=== PATIENT | male | born 1955 | race Caucasian/White ===

== ENCOUNTER 2016-11-10 12:16 | Emergency (ER) | payer MEDICAID, SELFPAY ==
[2016-11-10 12:17] VITALS: BP 168/95; PULSE 75; RESP 20; TEMP 36.4; O2SAT 98; BMI 27.3
--- NOTE | 2016-11-10 12:41 | ED.DCSUM_ITS ---
- ER Visit Summary Date of Service: 11/10/16 Chief Complaint: [] Left groin pain occurred suddenly when he stood up today History of Present Illness: The patient is a 61 M [] history 2007 had some unspecified vascular procedure involving the left groin arteries , he reports he simply stood today and had pain over the incision involving this left vascular procedure. Apparently postop there was some issue with the wound and he had an open wound that closed by secondary intention and that has resulted in some contracture of the scar Denies any trouble with numbness weakness paresthesias to lower extremity, the symptoms are worse when he flexes his knees or ABD ducts the hip, better when he is still Denies abdominal pain bowel bladder complaints and no direct trauma Physical Examination: [] He points directly to the incision left groin. This incision does show contracture of the skin there is a strong pulse there I do not feel any obvious fluid collection and there is no warmth no signs of bleeding he has what appears to be a dorsalis pedis pulse the lower extremity toes are good well-perfused with good capillary refill when you flex the knee complains of pain over this area he has some mild pain with adduction of the left hip, less pain with ADD duction basically has full range of motion of the left lower extremity His lungs are clear heart tones are normal abdomen soft nontender the backs unremarkable HEENT exam is negative Test Results: [] Emergency Department Course and Treatment: [] Patient CBC chemistry UA are unremarkable, we did a bedside vascular duplex scan of that area and technology reports that the artery at that level slightly distal and slightly proximal into the iliacs was normal with normal flow, slower velocity, but no signs of aneurysm no signs of extravasation of fluid around the artery and area of discomfort Additional precaution a CTA of the abdomen pelvis was done with cuts into the left lower leg to evaluate this area and there was again no signs of extravasation no signs of any obvious lesion, and no signs of occlusion he was medicated and feels somewhat better I have explained test results to him of the at this time exact etiology of his symptoms are unclear, As did occur when he was going from a seated to standing position could be musculoskeletal in origin, however he understands exact etiology is unclear and he will be is comfortable with discharge home he will follow-up with his physicians tomorrow or go directly to the [facility] for evaluation by that group physicians today, and return for change in symptoms. He is discharged with #6 [place] Addendum to the above note As we were discharging the patient he informed that he in fact has had this type of groin pain in the past related to some type of a back disorder, or he receives injections in his back. This is a complete new information as initially he inform he has never had pain in this area before and he then further inform me that he was seeing some pain management doctor he was on Percocet for this type of pain. I explained to him that had I understood that this was a recurrent chronic problem that he had that I likely would not have proceeded with the diagnostic studies that I felt were necessary based on what he initially reported to be an acute problem involving his vascular anatomy and prior history as result he will not be discharged with [place] and he will be instructed to follow-up as above and to include his pain management physician Treatment Plan: [] Disposition: [] Home stable Impression: [] Left groin pain occurred on standing related to prior scar that was related to vascular surgery at that level ED Disposition - Plan for ED Patient: Chief Complaint: Male Pain/Injury Prescriptions: Hydrocodone Bitart/Apap 5-325 [[place] 5/325] 1 - 2 tablet PO Q4H PRN PRN #12 tablet PRN Reason: Pain Referrals: Winnie Gonzales MD [NON-STAFF] -
--- NOTE | 2016-11-10 12:41 | ADUL_ITS ---
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 Procedure Exam performed portable in ED. Interpretation Summary Mild disease left common femoral artery with normal flow and no evidence for fistula or pseudoaneurysm. Ordering Physician: Jessica Weiner Referring Physician: Winnie Gonzales Performed By: Viviana Rinaldi RVT
[2016-11-10 12:56] LABS: Bacteria 0 SEEN /hpf (None Seen); Mucous, Urine 0 SEEN /hpf (<or=2+); Red Blood Cells-Urine 0 SEEN /hpf (0-5); Squamous Epithelial Cells - UA 0 SEEN /hpf (0-5); White Blood Cells 0 SEEN /hpf (0-5)
[2016-11-10] MEDS: 0.9% Normal Saline 1,000 ML 125 ML IV (12:58)
[2016-11-10 13:04] LABS: Color, Urine Yellow (Yellow); Glucose, Dipstick Normal (Normal); Ketone-Dipstick Negative (Negative); Leukocyte Esterase-Dipstick Negative /ul (Negative); Nitrite-Dipstick Negative (Negative); Occult Blood-Urine Negative /ul (Negative); Protein-Dipstick Negative (Negative); Urine Bilirubin Dipstick Negative (Negative); Urine Clarity Clear (Clear); Urine Urobilinogen Normal (Normal); Urine pH 6.5 (5.0 - 8.0)
[2016-11-10 13:08] LABS: Absolute Lymphocyte Count 1.43 X10^3/ul (0.83-4.51); Absolute Neutrophil Count 2.8 X10^3/uL (2.0-7.7); Basophil# 0.03 X10^3/uL; Basophil% 0.6 % (0-1); Eosinophil# 0.29 X10^3/uL; Eosinophils% 5.6 % (0-5); Hematocrit 38.1 % (40-54); Hemoglobin 12.6 g/dl (13.0-16.5); Lymphocyte # 1.43 X10^3/ul (4.0); Lymphocyte % 27.6 % (19-41); Mean Corp Hgb Conc 33.1 g/gl (32-36); Mean Corpuscular Hgb 30.1 pg (27.0-32.0); Mean Corpuscular Volume 91.1 fL (80-94); Mean Platelet Vol. 7.9 fl (6.2-12.0); Monocyte# 0.66 X10^3/uL; Monocyte% 12.7 % (0-10); Neutrophil # 2.75 X10^3/uL (2.7-7.7); Neutrophil % 52.9 % (47-70); Platelet Count 271 K/mm3 (150-450); RBC Distribution Width CV 12.9 % (11.6-14.6); Red Blood Count 4.18 M/mm3 (4.6-6.2); White Blood Count 5.2 K/mm3 (4.4-11.0)
[2016-11-10 13:10] LABS: POSITIVE COUNT NO; POSITIVE DIFFERENTIAL NO; POSITIVE MORPHOLOGY NO
--- NOTE | 2016-11-10 13:10 | CT_ITS ---
STUDY: CTA OF THE ABDOMINAL AORTA AND PELVIC ARTERIES. REASON FOR EXAM: Male, 61 years old. Left groin pain. History of prior left groin vascular surgery. History of colorectal carcinoma and radiation therapy. RADIATION DOSAGE (If Supplied By Facility): CTDIvol = ( 23.68 ) mGy, DLP = ( 1254.38 ) mGycm TECHNIQUE: Axial CT angiography multi-detector data acquisition was obtained from the dome of the liver to the symphysis pubis following intravenous administration of 100 ml of Isovue 370 contrast. Axial images and MIP images were reconstructed from the axial data set. Post-processing of the angiographic images was performed, with multiplanar reformation and 3D reconstruction. Individualized dose optimization techniques were used for this CT. TECHNICAL QUALITY: Good COMPARISON: Comparison is made with prior CT scan of the abdomen dated October 19, 2016. Descriptors of Narrowing: None (0%) Mild (< 50%) Moderate (50-70%) Severe (70-90%) Subtotal/Total Occlusion (90-100%) Non-Evaluable (technically non-diagnostic FINDINGS: The lung bases are clear. Decreased attenuation of the liver consistent with that of fatty infiltration of the liver. Stable 2.3 cm left renal cyst. Abdominal aorta: There is diffuse atherosclerotic calcification of the abdominal aorta and the major visceral branches. Celiac and superior mesenteric arteries: No demonstrated narrowing. Inferior mesenteric artery: No demonstrated narrowing. Right renal artery(arteries): No demonstrated narrowing. Left renal artery(arteries): No demonstrated narrowing. Right common iliac artery: Atherosclerotic calcification. Right external iliac artery: Atherosclerotic calcification. Right internal iliac artery: No demonstrated narrowing. Left common iliac artery: Atherosclerotic calcification. Left external iliac artery: Dilatation of the left external iliac artery with a transverse dimension of 1.6 cm. There is no evidence of extravasation. This most likely corresponds to the prior surgical changes. Left internal iliac artery: No demonstrated narrowing. There is evidence of a left total hip replacement. CT/CT ANGIO ABD&PEL W/O&W/DYE IMPRESSION: Fatty infiltration of the liver. Mild dilatation of the left external iliac artery most likely secondary to prior endarterectomy. There is no evidence of obstruction. There is no evidence of extravasation. Electronically Signed: Aayush Ibarra MD at 13:59 EDT Tel [phone], Service support ,
[2016-11-10 13:14] LABS: Anion Gap 7 (5-15); BUN 13 mg/dL (7-18); BUN/Creat Ratio 18.7 RATIO (10-20); Calcium,Total 8.7 mg/dL (8.5-10.1); Chloride 92 mmol/L (98-107); EST Glomerular Filtration Rate 122 mL/min (>60); Est Glom Filt Rate - Afr Amer 148 mL/min (>60); Glucose 91 mg/dL (70-110); Potassium 4.8 mmol/L (3.5-5.1); Sodium Level 129 mmol/L (136-145)
[2016-11-10] MEDS: Ondansetron 4 MG/2 ML Vial IV (14:03)
[2016-11-10 14:08] VITALS: BP 152/66; PULSE 72; RESP 22; O2SAT 96
--- NOTE | 2016-11-10 14:58 | ED.DEP ---
ED Disposition - Plan for ED Patient: Chief Complaint: Male Pain/Injury Prescriptions: Hydrocodone Bitart/Apap 5-325 [[place] 5/325] 1 - 2 tablet PO Q4H PRN PRN #12 tablet PRN Reason: Pain Referrals: Winnie Gonzales MD [NON-STAFF] -
--- NOTE | 2016-11-10 14:59 | ED.DEP ---
ED Disposition - Plan for ED Patient: Chief Complaint: Male Pain/Injury Prescriptions: Hydrocodone Bitart/Apap 5-325 [[place] 5/325] 1 - 2 tablet PO Q4H PRN PRN #12 tablet PRN Reason: Pain Referrals: Winnie Gonzales MD [NON-STAFF] -
[2016-11-10] MEDS: 0.9% Normal Saline 1,000 ML 500 ML IV (15:06)
--- NOTE | 2016-11-10 15:06 | DCINST.ED_ITS ---
ED Disposition - Plan for ED Patient: Chief Complaint: Male Pain/Injury Prescriptions: Hydrocodone Bitart/Apap 5-325 [[place] 5/325] 1 - 2 tablet PO Q4H PRN PRN #12 tablet PRN Reason: Pain Referrals: Winnie Gonzales MD [NON-STAFF] -
[2016-11-10 15:52] VITALS: BP 132/46; PULSE 83; RESP 22; O2SAT 94
--- NOTE | 2016-11-10 15:53 | ED.RN ---
THIS NURSE REVIEWED D/C INSTRUCTIONS WITH PT. PT VERBALIZED UNDERSTANDING OF INSTRUCTIONS. IV D/C. IV CATHETER INTACT. PT TOLERATED WELL. THIS NURSE ASSISTED PT TO GET DRESSED. PT DENIES FURTHER NEEDS OR QUESTIONS AT THIS TIME. PT AMBULATES FROM ROOM ON OWN HOWEVER, THIS NURSE WALKED WITH PT TO VEHICLE. PT REQUESTED W/C WHILE STANDING ON RAMP. THIS NURSE RETRIEVED A W/C FOR THE PT. PT THEN ASSISTED THE REST OF THE WAY TO THE VEHICLE AND ASSISTED PT INTO THE VEHICLE.
== END 2016-11-10 15:59 | disposition home or self-care (01) ==
PROVIDERS: Emergency Provider Emergency Medicine; Family Provider Internal Medicine; PCP Internal Medicine
DX: R10.30 Lower abdominal pain, unspecified (principal)
CPT/HCPCS: 74174; 80048; 81001; 85025; 87086; 87088; 93926; 96361; 96374; 96375; 99284; J7030; J7040; Q9967; A4216; J2405

== ENCOUNTER 2017-04-11 09:45 | Outpatient (RCR) | payer MEDICAID, SELFPAY ==
[2017-03-13 01:27] VITALS: BP 126/69; PULSE 72; RESP 18; TEMP 37.7
[2017-03-14 10:59] VITALS: BP 122/74; PULSE 80; RESP 16; TEMP 37
--- NOTE | 2017-03-14 19:29 | PCM.WC.PN ---
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 History of Wound: Surgery 12/30/16 - Surgical preparation right gluteal/ischial area with excision radiation pressure sore abscess wound and partial ostectomy for osteomyelitis (52.5 cm2). Wound care - Silver. There was trouble maintaining a VAC seal initially and had trouble getting it approved. Operative culture - Soft tissue, Staphylococcus aureus, Bacteroides fragilis, Anaerobic cocci. Bone, Bacteroides fragilis, Anaerobic cocci, and Fusarium species. Had another culture on 01/07/17 which showed Pseudomonas aeroginosa and presumptive Genna. He was placed on longterm Cefepime IV and Flagyl po until 02/20/17. He is finished with the Cefepime and Flagyl. There was a [facility]. It showed MRSA and C. albicans. He was started on Doxycylcine and Diflucan. Pathology - negative for osteomyelitis but rare neutrophils were present. Prealbumin from 12/30/16 was 9.8. He takes nutritional supplementation with protein to help the healing process. CT Pelvis from 12/29/16 showed evidence of abscess. This ulcer is based on anal cancer from 2002 that necessitated radiation therapy and chemotherapy. Today he denies fever. He does have pain in his right gluteal/ischial area. His appetite is ok. [facility] is still at the [facility]. 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 Progress of Wound: Minimal improvement. - Physical Exam Vital Signs Temp Pulse Resp BP 98.6 F 80 16 122/74 H 03/14/17 10:59 03/14/17 10:59 03/14/17 10:59 03/14/17 10:59 Wound Measurements and Assessment WC - Nurse 1 - General Ulcer Measurement Start: 03/14/17 10:58 Freq: Status: Active Protocol: Activity Type Activity Date Activity User E-Sign Co-Sign Detail Recorded Client Recorded Date Recorded By Document 03/14/17 10:59 MW [id number] 03/14/17 11:04 MW 03/14/17 10:59 Wound Center Nurse 1 [Ulcer Assessment Protocol: SKYLAR.WD.LOC] #1 R Ischial -Combined with other wound No -Current Size (cm) - Length 5.2 -Current Size (cm) - Width 3.8 -Current Size (cm) - Depth 4.2 -Total Square Cm 19.76 -Photo Taken Yes -Tunneling No -Undermining/Tunneling No -Circular Undermining No -Classification - Thickness Full Thickness without Exposed Support Structure -Exudate Amt Large (67-100%) -Exudate Type Serosanguineous -Wound Margin Fibrotic Scar, Thickened Scar -Granulation Amt Small (1-33%) -Granulation Quality [place] -Necrosis Amt Large (67-100%) -Necrotic Tissue Type Adherent Slough -Structure Exposed N/A -Texture (Nathalie-wound Skin Appearance) Assessed -Moisture (Nathalie-wound Skin Appearance Assessed ) -Color (Nathalie-wound Skin Appearance) Assessed Erythema -Temperature ([place]-wound Skin No Abnormality Appearance) (Pt Warm) -Tenderness on Palpation (Nathalie-wound No Skin Appearance) -Ulcer Cleansing Rinsed/ Irrigated with Saline -Foul Odor after Cleansing No -Anesthetic Used 4% Lidocaine Solution WC - Nurse 2 - General Ulcer CM Notes Start: 03/14/17 10:58 Freq: Status: Active Protocol: Activity Type Activity Date Activity User E-Sign Co-Sign Detail Recorded Client Recorded Date Recorded By Document 03/14/17 11:33 [id number] 03/14/17 11:34 03/14/17 11:33 Wound Center Nurse 2 [Procedure/Treatment] -Time 11:34 -Correct Patient Yes -Correct Side, Site, Position Yes -Correct Procedure Yes -Procedure Performed Yes -Type of Procedure Debridement -Clinical Debridement Muscle -Post Debridement Size (cm) - Length 5.3 -Post Debridement Size (cm) - Width 3.8 -Post Debridement Size (cm) - Depth 4.3 -Total Square Cm 20.14 -Wound/Ulcer Outcome Not Healed -Ulcer Cleansing Rinsed/ Irrigated with Saline -Foul Odor after Cleansing No -Bioengineered Tissue No -Cetacaine [place] No -Bleeding Controlled with Pressure -Treatment Response Procedure Tolerated Well [See Physician Procedure note for Specifics] Pain Scale: 0-10 Numeric [Pain] -Is Patient Pain Free? Yes Debridement Note Post-Debridement Measurements/Treatment WC - Nurse 2 - General Ulcer CM Notes Start: 03/14/17 10:58 Freq: Status: Active Protocol: Activity Type Activity Date Activity User E-Sign Co-Sign Detail Recorded Client Recorded Date Recorded By Document 03/14/17 11:33 [id number] 03/14/17 11:34 03/14/17 11:33 Wound Center Nurse 2 #1 R Ischial -Time 11:34 -Correct Patient Yes -Correct Side, Site, Position Yes -Correct Procedure Yes -Procedure Performed Yes -Type of Procedure Debridement -Clinical Debridement Muscle -Post Debridement Size (cm) - Length 5.3 -Post Debridement Size (cm) - Width 3.8 -Post Debridement Size (cm) - Depth 4.3 -Total Square Cm 20.14 -Wound/Ulcer Outcome Not Healed -Ulcer Cleansing Rinsed/ Irrigated with Saline -Foul Odor after Cleansing No -Bioengineered Tissue No -Cetacaine [place] No -Bleeding Controlled with Pressure -Treatment Response Procedure Tolerated Well Pain Scale: 0-10 Numeric Is Patient Pain Free? Yes Wound debrided: #1 Right ischial area. Laterality: Right Wound Grade/Stage: IV. Type of Debridement: Excisional debridement Anesthesia Used: 4% Lidocaine Solution Depth: Down to and including healthy tissue, in the subcutaneous layer, to muscle - bone is exposed but not debrided. Percentage of wound debrided: 100 Instrument Used: 7mm curette Tissue Removed: subcutaneous tissue and muscle. Severity: Fat Layer Exposed - muscle is exposed. bone is exposed but not debrided. Amount of bleeding with debridement: Mild Bleeding Controlled with: Pressure Patient tolerated procedure well Assessment/Plan Assessment: 1. 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 2. Late effect radiation right gluteal area. 3. History of anal CA treated with chemotherapy and radiation therapy. 4. s/p surgical preparation right gluteal/ischial area with excision radiation pressure sore abscess wound and partial ostectomy for osteomyelitis (52.5 cm2). 5. MRSA. Plan: Continue Silver dressing changes. There has been increased drainage so will increase the Silver dressings to twice a day. [facility] and is anxious to go home. While [facility], the VAC was tried again. However had difficulty getting approval for the VAC. He finished the operative Cefepime IV and Flagyl po without difficulty. A recent culture at the [facility] showed MRSA and C. albicans. He is currently on Doxycycline and Diflucan. Continue Chuy nutritional supplementation to help the healing process. 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 Have to wait until he is at home before starting HBO treatments. Followup 3 weeks. He had a CXR in December,. It showed interstitial changes in the right upper lobe. Otherwise no signs of acute disease. Stable since the last examination in October,.
--- NOTE | 2017-03-15 23:10 | PN.PCM_ITS ---
Type of Wound Date of Service: 03/14/17 Chief Complaint: Nonhealing radiation pressure sore abscess ulcer right gluteal/ ischial area, Stage IV. History of Wound: Surgery 12/30/16 - Surgical preparation right gluteal/ischial area with excision radiation pressure sore abscess wound and partial ostectomy for osteomyelitis (52.5 cm2). Wound care - Silver. There was trouble maintaining a VAC seal initially and had trouble getting it approved. Operative culture - Soft tissue, Staphylococcus aureus, Bacteroides fragilis, Anaerobic cocci. Bone, Bacteroides fragilis, Anaerobic cocci, and Fusarium species. Had another culture on 01/07/17 which showed Pseudomonas aeroginosa and presumptive Genna. 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 He is finished with the Cefepime and Flagyl. There was a recent culture from the [facility]. It showed MRSA and C. albicans. He was started on Doxycylcine and Diflucan. Pathology - negative for osteomyelitis but rare neutrophils were present. Prealbumin from 12/30/16 was 9.8. He takes nutritional supplementation with protein to help the healing process. CT Pelvis from 12/29/16 showed evidence of abscess. This ulcer is based on anal cancer from 2002 that necessitated radiation therapy and chemotherapy. Today he denies fever. He does have pain in his right gluteal/ischial area. His appetite is ok. He is still at the [facility]. 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 Progress of Wound: Minimal improvement. - Physical Exam Vital Signs Temp Pulse Resp BP 98.6 F 80 16 122/74 H 03/14/17 10:59 03/14/17 10:59 03/14/17 10:59 03/14/17 10:59 Wound Measurements and Assessment WC - Nurse 1 - General Ulcer Measurement Start: 03/14/17 10:58 Freq: Status: Active Protocol: Activity Type Activity Date Activity User E-Sign Co-Sign Detail Recorded Client Recorded Date Recorded By Document 03/14/17 10:59 MW [id number] 03/14/17 11:04 MW 03/14/17 10:59 Wound Center Nurse 1 [Ulcer Assessment Protocol: SKYLAR.WD.LOC] #1 R Ischial -Combined with other wound No -Current Size (cm) - Length 5.2 -Current Size (cm) - Width 3.8 -Current Size (cm) - Depth 4.2 -Total Square Cm 19.76 -Photo Taken Yes -Tunneling No -Undermining/Tunneling No -Circular Undermining No -Classification - Thickness Full Thickness without Exposed Support Structure -Exudate Amt Large (67-100%) -Exudate Type Serosanguineous -Wound Margin Fibrotic Scar, Thickened Scar -Granulation Amt Small (1-33%) -Granulation Quality [place] -Necrosis Amt Large (67-100%) -Necrotic Tissue Type Adherent Slough -Structure Exposed N/A -Texture (Nathalie-wound Skin Appearance) Assessed -Moisture (Nathalie-wound Skin Appearance Assessed ) -Color (Nathalie-wound Skin Appearance) Assessed Erythema -Temperature (Nathalie-wound Skin No Abnormality Appearance) (Pt Warm) -Tenderness on Palpation (Nathalie-wound No Skin Appearance) -Ulcer Cleansing Rinsed/ Irrigated with Saline -Foul Odor after Cleansing No -Anesthetic Used 4% Lidocaine Solution WC - Nurse 2 - General Ulcer CM Notes Start: 03/14/17 10:58 Freq: Status: Active Protocol: Activity Type Activity Date Activity User E-Sign Co-Sign Detail Recorded Client Recorded Date Recorded By Document 03/14/17 11:33 [id number] 03/14/17 11:34 03/14/17 11:33 Wound Center Nurse 2 [Procedure/Treatment] -Time 11:34 -Correct Patient Yes -Correct Side, Site, Position Yes -Correct Procedure Yes -Procedure Performed Yes -Type of Procedure Debridement -Clinical Debridement Muscle -Post Debridement Size (cm) - Length 5.3 -Post Debridement Size (cm) - Width 3.8 -Post Debridement Size (cm) - Depth 4.3 -Total Square Cm 20.14 -Wound/Ulcer Outcome Not Healed -Ulcer Cleansing Rinsed/ Irrigated with Saline -Foul Odor after Cleansing No -Bioengineered Tissue No -Cetacaine [place] No -Bleeding Controlled with Pressure -Treatment Response Procedure Tolerated Well [See Physician Procedure note for Specifics] Pain Scale: 0-10 Numeric [Pain] -Is Patient Pain Free? Yes Debridement Note Post-Debridement Measurements/Treatment WC - Nurse 2 - General Ulcer CM Notes Start: 03/14/17 10:58 Freq: Status: Active Protocol: Activity Type Activity Date Activity User E-Sign Co-Sign Detail Recorded Client Recorded Date Recorded By Document 03/14/17 11:33 [id number] 03/14/17 11:34 03/14/17 11:33 Wound Center Nurse 2 #1 R Ischial -Time 11:34 -Correct Patient Yes -Correct Side, Site, Position Yes -Correct Procedure Yes -Procedure Performed Yes -Type of Procedure Debridement -Clinical Debridement Muscle -Post Debridement Size (cm) - Length 5.3 -Post Debridement Size (cm) - Width 3.8 -Post Debridement Size (cm) - Depth 4.3 -Total Square Cm 20.14 -Wound/Ulcer Outcome Not Healed -Ulcer Cleansing Rinsed/ Irrigated with Saline -Foul Odor after Cleansing No -Bioengineered Tissue No -Cetacaine [place] No -Bleeding Controlled with Pressure -Treatment Response Procedure Tolerated Well Pain Scale: 0-10 Numeric Is Patient Pain Free? Yes Wound debrided: #1 Right ischial area. Laterality: Right Wound Grade/Stage: IV. Type of Debridement: Excisional debridement Anesthesia Used: 4% Lidocaine Solution Depth: Down to and including healthy tissue, in the subcutaneous layer, to muscle - bone is exposed but not debrided. Percentage of wound debrided: 100 Instrument Used: 7mm curette Tissue Removed: subcutaneous tissue and muscle. Severity: Fat Layer Exposed - muscle is exposed. bone is exposed but not debrided. Amount of bleeding with debridement: Mild Bleeding Controlled with: Pressure Patient tolerated procedure well Assessment/Plan Assessment: 1. 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 2. Late effect radiation right gluteal area. 3. History of anal CA treated with chemotherapy and radiation therapy. 4. s/p surgical preparation right gluteal/ischial area with excision radiation pressure sore abscess wound and partial ostectomy for osteomyelitis (52.5 cm2). 5. MRSA. Plan: Continue Silver dressing changes. There has been increased drainage so will increase the Silver dressings to twice a day. He is still at the [facility] and is anxious to go home. While at the [facility], the VAC was tried again. However had difficulty getting approval for the VAC. He finished the operative Cefepime IV and Flagyl po without difficulty. A recent culture at the [facility] showed MRSA and C. albicans. He is currently on Doxycycline and Diflucan. Continue Chuy nutritional supplementation to help the healing process. 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 Have to wait until he is at home before starting HBO treatments. Followup 3 weeks. He had a CXR in December,. It showed interstitial changes in the right upper lobe. Otherwise no signs of acute disease. Stable since the last examination in October,.
[2017-03-22 13:27] VITALS: BP 137/75; PULSE 77; RESP 16; TEMP 37
[2017-03-23 13:18] VITALS: BP 142/68; PULSE 78; RESP 18; TEMP 36.6
[2017-04-03 09:03] VITALS: BP 156/68; BP 166/89; PULSE 73; PULSE 83; RESP 16; TEMP 36.4; TEMP 36.5
[2017-04-03 11:08] VITALS: BP 166/89; PULSE 83; RESP 18; TEMP 36.4
--- NOTE | 2017-04-03 15:18 | PN.PCM_ITS ---
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 History of Wound: Surgery 12/30/16 - Surgical preparation right gluteal/ischial area with excision radiation pressure sore abscess wound and partial ostectomy for osteomyelitis (52.5 cm2). Wound care - Silver. There was trouble maintaining a VAC seal initially and had trouble getting it approved. Operative culture - Soft tissue, Staphylococcus aureus, Bacteroides fragilis, Anaerobic cocci. Bone, Bacteroides fragilis, Anaerobic cocci, and Fusarium species. Had another culture on 01/07/17 which showed Pseudomonas aeroginosa and presumptive Genna. He was placed on exterminator helper Cefepime IV and Flagyl po until 02/20/17. He is finished with the Cefepime and Flagyl. There was a recent culture from the [facility]. It showed MRSA and C. albicans. He was started on Doxycylcine and Diflucan. Pathology - negative for osteomyelitis but rare neutrophils were present. Prealbumin from 12/30/16 was 9.8. He takes nutritional supplementation with protein to help the healing process. CT Pelvis from 12/29/16 showed evidence of abscess. This ulcer is based on anal cancer from 2002 that necessitated radiation therapy and chemotherapy. Today he denies fever. He does have pain in his right gluteal/ischial area. His appetite is ok. He has been discharged from the [facility]. His HBO treatments for soft tissue radionecrosis have been started. He is tolerating them thus far. Progress of Wound: Minimal improvement. - Physical Exam Vital Signs Temp Pulse Resp BP 97.6 F L 83 18 166/89 H 04/03/17 11:08 04/03/17 11:08 04/03/17 11:08 04/03/17 11:08 Wound Measurements and Assessment SKYLAR - Nurse 1 - General Ulcer Measurement Start: 03/14/17 10:58 Freq: Status: Active Protocol: Activity Type Activity Date Activity User E-Sign Co-Sign Detail Recorded Client Recorded Date Recorded By Document 04/03/17 11:08 DL [id number] 04/03/17 11:10 DL 04/03/17 11:08 Wound Center Nurse 1 [Ulcer Assessment Protocol: SKYLAR.WD.LOC] #1 R Ischial -Current Size (cm) - Length 6.4 -Current Size (cm) - Width 4.6 -Current Size (cm) - Depth 3.2 -Total Square Cm 29.44 -Photo Taken Yes -Exudate Amt Medium (34-66%) -Exudate Type Serosanguineous -Wound Margin Distinct, Outline Attached -Granulation Amt Medium (34-66%) -Granulation Quality [place] Red -Necrosis Amt Medium (34-66%) -Necrotic Tissue Type Adherent Slough -Structure Exposed Fat Layer Exposed N/A -Texture (Nathalie-wound Skin Appearance) No Abnormality -Moisture (Nathalie-wound Skin Appearance No Abnormality ) -Color (Nathalie-wound Skin Appearance) Rubor -Tenderness on Palpation (Nathalie-wound No Skin Appearance) -Ulcer Cleansing Rinsed/ Irrigated with Saline -Foul Odor after Cleansing No -Anesthetic Used 4% Lidocaine Solution - Nurse 2 - General Ulcer CM Notes Start: 03/14/17 10:58 Freq: Status: Active Protocol: Activity Type Activity Date Activity User E-Sign Co-Sign Detail Recorded Client Recorded Date Recorded By Document 04/03/17 11:53 [id number] 04/03/17 11:54 04/03/17 11:53 Wound Center Nurse 2 [Procedure/Treatment] -Time 11:53 -Correct Patient Yes -Correct Side, Site, Position Yes -Correct Procedure Yes -Procedure Performed Yes -Type of Procedure Debridement -Clinical Debridement Muscle -Post Debridement Size (cm) - Length 6.5 -Post Debridement Size (cm) - Width 4.6 -Post Debridement Size (cm) - Depth 3.2 -Total Square Cm 29.90 -Wound/Ulcer Outcome Not Healed -Ulcer Cleansing Rinsed/ Irrigated with Saline -Foul Odor after Cleansing No -Bioengineered Tissue No -Cetacaine [place] No -Bleeding Controlled with Pressure -Treatment Response Procedure Tolerated Well [See Physician Procedure note for Specifics] Pain Scale: 0-10 Numeric [Pain] -Is Patient Pain Free? Yes Debridement Note Post-Debridement Measurements/Treatment - Nurse 2 - General Ulcer CM Notes Start: 03/14/17 10:58 Freq: Status: Active Protocol: Activity Type Activity Date Activity User E-Sign Co-Sign Detail Recorded Client Recorded Date Recorded By Document 03/14/17 11:33 [id number] 03/14/17 11:34 Document 04/03/17 11:53 [id number] 04/03/17 11:54 03/14/17 04/03/17 11:33 11:53 Wound Center Nurse 2 #1 R Ischial -Time 11:34 11:53 -Correct Patient Yes Yes -Correct Side, Site, Position Yes Yes -Correct Procedure Yes Yes -Procedure Performed Yes Yes -Type of Procedure Debridement Debridement -Clinical Debridement Muscle Muscle -Post Debridement Size (cm) - Length 5.3 6.5 -Post Debridement Size (cm) - Width 3.8 4.6 -Post Debridement Size (cm) - Depth 4.3 3.2 -Total Square Cm 20.14 29.90 -Wound/Ulcer Outcome Not Healed Not Healed -Ulcer Cleansing Rinsed/ Rinsed/ Irrigated with Irrigated with Saline Saline -Foul Odor after Cleansing No No -Bioengineered Tissue No No -Cetacaine [place] No No -Bleeding Controlled with Pressure Pressure -Treatment Response Procedure Procedure Tolerated Well Tolerated Well Pain Scale: 0-10 Numeric Is Patient Pain Free? Yes Yes Wound debrided: #1 Right ischial area. Laterality: Right Wound Grade/Stage: IV. Type of Debridement: Excisional debridement Anesthesia Used: 4% Lidocaine Solution Depth: Down to and including healthy tissue, in the subcutaneous layer, to muscle - bone is exposed but not debrided. Percentage of wound debrided: 100 Instrument Used: 7mm curette Tissue Removed: subcutaneous tissue and muscle. Severity: Fat Layer Exposed - muscle is exposed. bone is exposed but not debrided. Amount of bleeding with debridement: Mild Bleeding Controlled with: Pressure Patient tolerated procedure well Assessment/Plan Assessment: 1. 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 2. Late effect radiation right gluteal area. 3. History of anal CA treated with chemotherapy and radiation therapy. 4. s/p surgical preparation right gluteal/ischial area with excision radiation pressure sore abscess wound and partial ostectomy for osteomyelitis (52.5 cm2). 5. MRSA. Plan: Continue Silver dressing changes. Some improvement has been seen now that he is getting HBO treatments for his soft tissue radionecrosis which will increase the vascularity of the ulcer and improve healing. He has been discharged from the [facility]. While at the [facility], the VAC was tried again. However had difficulty getting approval for the VAC. He finished the operative Cefepime IV and Flagyl po without difficulty. A recent culture at the [facility] showed MRSA and C. albicans. He is currently on Doxycycline and Diflucan. Prealbumin from 12/30/16 was 9.8. He takes nutritional supplementation with protein to help the healing process. Followup 3 weeks.
--- NOTE | 2017-04-03 15:25 | HBO.PN.PCM_ITS ---
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 BRYN TROTTER is a 62 year old currently undergoing hyperbaric oxygen therapy for nonhealing radiation pressure sore abscess ulcer right gluteal/ ischial area, Stage IV, with 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 Progress: Treatment #1 hyperbaric oxygen therapy. Tolerance of hyperbaric oxygen therapy: Upon emergence from the hyperbaric chamber today, the patient had no complaints or complications. Patient's vital signs have been stable and has been discharged in good condition. Patient is tolerating the hyperbaric oxygen therapy and will continue as prescribed. Past Medical History Chronic Problems Anal cancer (Chronic) Hepatitis C carrier (Chronic) COPD (chronic obstructive pulmonary disease) (Chronic) Anxiety and depression (Chronic) HTN (hypertension) (Chronic) HLD (hyperlipidemia) (Chronic) GERD (gastroesophageal reflux disease) (Chronic) PAD (peripheral artery disease) (Chronic) Allergies/Adverse Reactions: Allergies povidone-iodine [From Betadine] Allergy (Verified 01/30/17 10:32) Hives Abhuogt-Ujl-Xbj Reductase Inhibitor Adverse Reaction (Verified 01/30/17 10:32) MESSED MY LIVER UP adhesive tape Allergy (Uncoded 12/29/16 14:53) Itching/rash Home Medications: Ambulatory Orders Medication Instructions Recorded Albuterol Inhaler [Ventolin Hfa] 2 puff INHALATION Q4H PRN PRN 03/22/16 Aspirin [Aspirin, Baby] 81 mg PO DAILY@0800 03/22/16 BuPROPion (XL) [Wellbutrin Xl] 300 mg PO DAILY 03/22/16 BusPIRone [Buspar] 5 mg PO TID 03/22/16 Escitalopram Oxalate [Lexapro] 10 mg PO QHS 03/22/16 Ezetimibe [Zetia] 10 mg PO QHS 03/22/16 Fluticasone 0.05% [Flonase Nasal 2 spray NASAL BID 03/22/16 [place]] Multivitamin [Multiple Vitamins] 1 each PO DAILY 03/22/16 Omeprazole [Prilosec] 40 mg PO QHS 03/22/16 Tiotropium [place] [Spiriva 2 puff INHALATION DAILY 10/20/16 Respimat] Cholecalciferol (Vitamin D3) 1,000 unit PO DAILY 12/09/16 [Vitamin D3] Tizanidine HCl [Zanaflex] 4 mg PO Q6H PRN PRN 12/27/16 Dicyclomine HCl [Bentyl] 10 mg PO TIDAC capsule 01/04/17 Metoprolol Tartrate 25 mg PO BID #60 tablet 01/04/17 Nutritional Supplement [Chuy - 1 packet PO BIDCM packet 01/04/17 [place]] Acetaminophen [Tylenol Tablet] 650 mg PO Q6H PRN PRN tablet 01/13/17 Cefepime HCl [Maxipime] 2 gm IV Q8 vial 01/13/17 Fentanyl [Duragesic] 25 mcg TRANSDERM. Q3D #3 patch 01/13/17 Gabapentin [Neurontin] 800 mg PO TIDCM tablet 01/13/17 Guaifenesin Dm [Robitussin Dm] 10 ml PO Q4H PRN PRN udc 01/13/17 Ibuprofen [Motrin] 800 mg PO TID PRN PRN tablet 01/13/17 Metronidazole [Flagyl] 500 mg PO TID #1 tablet 01/13/17 Oxycodone [Oxyir] 10 mg PO Q4H PRN PRN #30 tablet 01/13/17 Maternal Family History: No pertinent history Paternal Family History: No pertinent history Smoking Status: Former smoker Physical Exam Vital Signs Temp Pulse Resp BP 97.6 F L 83 18 166/89 H 04/03/17 11:08 04/03/17 11:08 04/03/17 11:08 04/03/17 11:08
[2017-04-04 10:40] VITALS: BP 140/72; BP 155/83; PULSE 81; RESP 16; TEMP 36.4; TEMP 36.6
--- NOTE | 2017-04-04 11:56 | PCM.HBO.PN ---
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 BRYN TROTTER is a 62 year old currently undergoing hyperbaric oxygen therapy for nonhealing radiation pressure ulcer/abscess of the right gluteal/ischial area, Stage IV. Progress: Patient appears to be tolerating hyperbaric oxygen therapy well. Tolerance of hyperbaric oxygen therapy: Hyperbaric oxygen therapy was administered as per the facility's protocol. Today's session represents the second such hyperbaric oxygen treatment. Patient tolerated hyperbaric oxygen therapy well, without complications or complaints. Upon emergence from the hyperbaric chamber, the patient's vital signs remained stable. The patient was discharged in good condition. Past Medical History Chronic Problems Anal cancer (Chronic) Hepatitis C carrier (Chronic) COPD (chronic obstructive pulmonary disease) (Chronic) Anxiety and depression (Chronic) HTN (hypertension) (Chronic) HLD (hyperlipidemia) (Chronic) GERD (gastroesophageal reflux disease) (Chronic) PAD (peripheral artery disease) (Chronic) Allergies/Adverse Reactions: Allergies povidone-iodine [From Betadine] Allergy (Verified 01/30/17 10:32) Hives Zkirrmc-Zue-Zqm Reductase Inhibitor Adverse Reaction (Verified 01/30/17 10:32) MESSED MY LIVER UP adhesive tape Allergy (Uncoded 12/29/16 14:53) Itching/rash Home Medications: Ambulatory Orders Medication Instructions Recorded Albuterol Inhaler [Ventolin Hfa] 2 puff INHALATION Q4H PRN PRN 03/22/16 Aspirin [Aspirin, Baby] 81 mg PO DAILY@0800 03/22/16 BuPROPion (XL) [Wellbutrin Xl] 300 mg PO DAILY 03/22/16 BusPIRone [Buspar] 5 mg PO TID 03/22/16 Escitalopram Oxalate [Lexapro] 10 mg PO QHS 03/22/16 Ezetimibe [Zetia] 10 mg PO QHS 03/22/16 Fluticasone 0.05% [Flonase Nasal 2 spray NASAL BID 03/22/16 [place]] Multivitamin [Multiple Vitamins] 1 each PO DAILY 03/22/16 Omeprazole [Prilosec] 40 mg PO QHS 03/22/16 Tiotropium [place] [Spiriva 2 puff INHALATION DAILY 10/20/16 Respimat] Cholecalciferol (Vitamin D3) 1,000 unit PO DAILY 12/09/16 [Vitamin D3] Tizanidine HCl [Zanaflex] 4 mg PO Q6H PRN PRN 12/27/16 Dicyclomine HCl [Bentyl] 10 mg PO TIDAC capsule 01/04/17 Metoprolol Tartrate 25 mg PO BID #60 tablet 01/04/17 Nutritional Supplement [Chuy - 1 packet PO BIDCM packet 01/04/17 [place]] Acetaminophen [Tylenol Tablet] 650 mg PO Q6H PRN PRN tablet 01/13/17 Cefepime HCl [Maxipime] 2 gm IV Q8 vial 01/13/17 Fentanyl [Duragesic] 25 mcg TRANSDERM. Q3D #3 patch 01/13/17 Gabapentin [Neurontin] 800 mg PO TIDCM tablet 01/13/17 Guaifenesin Dm [Robitussin Dm] 10 ml PO Q4H PRN PRN udc 01/13/17 Ibuprofen [Motrin] 800 mg PO TID PRN PRN tablet 01/13/17 Metronidazole [Flagyl] 500 mg PO TID #1 tablet 01/13/17 Oxycodone [Oxyir] 10 mg PO Q4H PRN PRN #30 tablet 01/13/17 Maternal Family History: No pertinent history Paternal Family History: No pertinent history Smoking Status: Former smoker Physical Exam Vital Signs Temp Pulse Resp BP 97.5 F L 81 16 140/72 H 04/04/17 10:40 04/04/17 10:40 04/04/17 10:40 04/04/17 10:40 General: Alert, Oriented x3, Cooperative, No apparent distress, Well developed, Well nourished HEENT: Atraumatic, PERRLA, EOMI, Normocephalic Lungs: Normal air movement Psych/Mental Status: Normal Affect, Appropriate, Alert and oriented to time, place, person, mood and affect Assessment/Plan Patient appears to be tolerating hyperbaric oxygen therapy well, which will be continued as per the patient's medical plan.
[2017-04-05 10:29] VITALS: BP 144/82; PULSE 78; RESP 16; TEMP 36.6
--- NOTE | 2017-04-05 10:43 | PCM.HBO.PN ---
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 BRYN TROTTER is a 62 year old currently undergoing hyperbaric oxygen therapy for nonhealing radiation pressure ulcer/abscess of the right gluteal/ischial area, Stage IV. Progress: Patient appears to be tolerating hyperbaric oxygen therapy well. Tolerance of hyperbaric oxygen therapy: Hyperbaric oxygen therapy was administered as per the facility's protocol. Patient tolerated hyperbaric oxygen therapy well, without complications or complaints. Upon emergence from the hyperbaric chamber, the patient's vital signs remained stable. The patient was discharged in good condition. Past Medical History Chronic Problems Anal cancer (Chronic) Hepatitis C carrier (Chronic) COPD (chronic obstructive pulmonary disease) (Chronic) Anxiety and depression (Chronic) HTN (hypertension) (Chronic) HLD (hyperlipidemia) (Chronic) GERD (gastroesophageal reflux disease) (Chronic) PAD (peripheral artery disease) (Chronic) Allergies/Adverse Reactions: Allergies povidone-iodine [From Betadine] Allergy (Verified 01/30/17 10:32) Hives Lyvwmfx-Kpt-Kah Reductase Inhibitor Adverse Reaction (Verified 01/30/17 10:32) MESSED MY LIVER UP adhesive tape Allergy (Uncoded 12/29/16 14:53) Itching/rash Home Medications: Ambulatory Orders Medication Instructions Recorded Albuterol Inhaler [Ventolin Hfa] 2 puff INHALATION Q4H PRN PRN 03/22/16 Aspirin [Aspirin, Baby] 81 mg PO DAILY@0800 03/22/16 BuPROPion (XL) [Wellbutrin Xl] 300 mg PO DAILY 03/22/16 BusPIRone [Buspar] 5 mg PO TID 03/22/16 Escitalopram Oxalate [Lexapro] 10 mg PO QHS 03/22/16 Ezetimibe [Zetia] 10 mg PO QHS 03/22/16 Fluticasone 0.05% [Flonase Nasal 2 spray NASAL BID 03/22/16 [place]] Multivitamin [Multiple Vitamins] 1 each PO DAILY 03/22/16 Omeprazole [Prilosec] 40 mg PO QHS 03/22/16 Tiotropium [place] [Spiriva 2 puff INHALATION DAILY 10/20/16 Respimat] Cholecalciferol (Vitamin D3) 1,000 unit PO DAILY 12/09/16 [Vitamin D3] Tizanidine HCl [Zanaflex] 4 mg PO Q6H PRN PRN 12/27/16 Dicyclomine HCl [Bentyl] 10 mg PO TIDAC capsule 01/04/17 Metoprolol Tartrate 25 mg PO BID #60 tablet 01/04/17 Nutritional Supplement [Chuy - 1 packet PO BIDCM packet 01/04/17 [place]] Acetaminophen [Tylenol Tablet] 650 mg PO Q6H PRN PRN tablet 01/13/17 Cefepime HCl [Maxipime] 2 gm IV Q8 vial 01/13/17 Fentanyl [Duragesic] 25 mcg TRANSDERM. Q3D #3 patch 01/13/17 Gabapentin [Neurontin] 800 mg PO TIDCM tablet 01/13/17 Guaifenesin Dm [Robitussin Dm] 10 ml PO Q4H PRN PRN udc 01/13/17 Ibuprofen [Motrin] 800 mg PO TID PRN PRN tablet 01/13/17 Metronidazole [Flagyl] 500 mg PO TID #1 tablet 01/13/17 Oxycodone [Oxyir] 10 mg PO Q4H PRN PRN #30 tablet 01/13/17 Maternal Family History: No pertinent history Paternal Family History: No pertinent history Smoking Status: Former smoker Physical Exam Vital Signs Temp Pulse Resp BP 97.9 F 78 16 144/82 H 04/05/17 10:29 04/05/17 10:29 04/05/17 10:29 04/05/17 10:29 General: Alert, Oriented x3, Cooperative, No apparent distress HEENT: Atraumatic, Normocephalic Lungs: Normal air movement Cardiovascular: Regular rate Psych/Mental Status: Normal Affect Assessment/Plan Active Problems Soft tissue radionecrosis (Acute) Patient appears to be tolerating hyperbaric oxygen therapy well, which will be continued as per the patient's medical plan.
[2017-04-06 10:22] VITALS: BP 126/81; BP 156/85; PULSE 81; PULSE 83; RESP 18; RESP 20; TEMP 36.6; TEMP 37
--- NOTE | 2017-04-06 15:33 | PCM.HBO.PN ---
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 BRYN TROTTER is a 62 year old currently undergoing hyperbaric oxygen therapy for nonhealing radiation pressure ulcer/abscess of the right gluteal/ischial area, Stage IV. Progress: Patient appears to be tolerating hyperbaric oxygen therapy well. Tolerance of hyperbaric oxygen therapy: Hyperbaric oxygen therapy was administered as per the facility's protocol. Patient tolerated hyperbaric oxygen therapy well, without complications or complaints. Upon emergence from the hyperbaric chamber, the patient's vital signs remained stable. The patient was discharged in good condition. Past Medical History Chronic Problems Anal cancer (Chronic) Hepatitis C carrier (Chronic) COPD (chronic obstructive pulmonary disease) (Chronic) Anxiety and depression (Chronic) HTN (hypertension) (Chronic) HLD (hyperlipidemia) (Chronic) GERD (gastroesophageal reflux disease) (Chronic) PAD (peripheral artery disease) (Chronic) Allergies/Adverse Reactions: Allergies povidone-iodine [From Betadine] Allergy (Verified 01/30/17 10:32) Hives Rheotuz-Blm-Ihh Reductase Inhibitor Adverse Reaction (Verified 01/30/17 10:32) MESSED MY LIVER UP adhesive tape Allergy (Uncoded 12/29/16 14:53) Itching/rash Home Medications: Ambulatory Orders Medication Instructions Recorded Albuterol Inhaler [Ventolin Hfa] 2 puff INHALATION Q4H PRN PRN 03/22/16 Aspirin [Aspirin, Baby] 81 mg PO DAILY@0800 03/22/16 BuPROPion (XL) [Wellbutrin Xl] 300 mg PO DAILY 03/22/16 BusPIRone [Buspar] 5 mg PO TID 03/22/16 Escitalopram Oxalate [Lexapro] 10 mg PO QHS 03/22/16 Ezetimibe [Zetia] 10 mg PO QHS 03/22/16 Fluticasone 0.05% [Flonase Nasal 2 spray NASAL BID 03/22/16 [place]] Multivitamin [Multiple Vitamins] 1 each PO DAILY 03/22/16 Omeprazole [Prilosec] 40 mg PO QHS 03/22/16 Tiotropium [place] [Spiriva 2 puff INHALATION DAILY 10/20/16 Respimat] Cholecalciferol (Vitamin D3) 1,000 unit PO DAILY 12/09/16 [Vitamin D3] Tizanidine HCl [Zanaflex] 4 mg PO Q6H PRN PRN 12/27/16 Dicyclomine HCl [Bentyl] 10 mg PO TIDAC capsule 01/04/17 Metoprolol Tartrate 25 mg PO BID #60 tablet 01/04/17 Nutritional Supplement [Chuy - 1 packet PO BIDCM packet 01/04/17 [place]] Acetaminophen [Tylenol Tablet] 650 mg PO Q6H PRN PRN tablet 01/13/17 Cefepime HCl [Maxipime] 2 gm IV Q8 vial 01/13/17 Fentanyl [Duragesic] 25 mcg TRANSDERM. Q3D #3 patch 01/13/17 Gabapentin [Neurontin] 800 mg PO TIDCM tablet 01/13/17 Guaifenesin Dm [Robitussin Dm] 10 ml PO Q4H PRN PRN udc 01/13/17 Ibuprofen [Motrin] 800 mg PO TID PRN PRN tablet 01/13/17 Metronidazole [Flagyl] 500 mg PO TID #1 tablet 01/13/17 Oxycodone [Oxyir] 10 mg PO Q4H PRN PRN #30 tablet 01/13/17 Maternal Family History: No pertinent history Paternal Family History: No pertinent history Smoking Status: Former smoker Physical Exam Vital Signs Temp Pulse Resp BP 98.6 F 81 20 H 126/81 H 04/06/17 10:22 04/06/17 10:22 04/06/17 10:22 04/06/17 10:22 General: Alert, Oriented x3, Cooperative, No apparent distress HEENT: Atraumatic, Normocephalic, TM's Clear Lungs: Normal air movement Cardiovascular: Regular rate Psych/Mental Status: Normal Affect Assessment/Plan Patient appears to be tolerating hyperbaric oxygen therapy well, which will be continued as per the patient's medical plan.
[2017-04-07 10:34] VITALS: BP 121/66; BP 145/83; PULSE 78; PULSE 89; RESP 16; TEMP 35.5; TEMP 36.4
--- NOTE | 2017-04-07 11:13 | PCM.HBO.PN ---
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 BRYN TROTTER is a 62 year old currently undergoing hyperbaric oxygen therapy for nonhealing radiation pressure ulcer/abscess of the right gluteal/ischial area, Stage IV. Progress: Patient appears to be tolerating hyperbaric oxygen therapy well. Tolerance of hyperbaric oxygen therapy: Hyperbaric oxygen therapy was administered as per the facility's protocol. Patient tolerated hyperbaric oxygen therapy well, without complications or complaints. Upon emergence from the hyperbaric chamber, the patient's vital signs remained stable. The patient was discharged in good condition. Past Medical History Chronic Problems Anal cancer (Chronic) Hepatitis C carrier (Chronic) COPD (chronic obstructive pulmonary disease) (Chronic) Anxiety and depression (Chronic) HTN (hypertension) (Chronic) HLD (hyperlipidemia) (Chronic) GERD (gastroesophageal reflux disease) (Chronic) PAD (peripheral artery disease) (Chronic) Allergies/Adverse Reactions: Allergies povidone-iodine [From Betadine] Allergy (Verified 01/30/17 10:32) Hives Jgurzdg-Mtt-Bkp Reductase Inhibitor Adverse Reaction (Verified 01/30/17 10:32) MESSED MY LIVER UP adhesive tape Allergy (Uncoded 12/29/16 14:53) Itching/rash Home Medications: Ambulatory Orders Medication Instructions Recorded Albuterol Inhaler [Ventolin Hfa] 2 puff INHALATION Q4H PRN PRN 03/22/16 Aspirin [Aspirin, Baby] 81 mg PO DAILY@0800 03/22/16 BuPROPion (XL) [Wellbutrin Xl] 300 mg PO DAILY 03/22/16 BusPIRone [Buspar] 5 mg PO TID 03/22/16 Escitalopram Oxalate [Lexapro] 10 mg PO QHS 03/22/16 Ezetimibe [Zetia] 10 mg PO QHS 03/22/16 Fluticasone 0.05% [Flonase Nasal 2 spray NASAL BID 03/22/16 [place]] Multivitamin [Multiple Vitamins] 1 each PO DAILY 03/22/16 Omeprazole [Prilosec] 40 mg PO QHS 03/22/16 Tiotropium [place] [Spiriva 2 puff INHALATION DAILY 10/20/16 Respimat] Cholecalciferol (Vitamin D3) 1,000 unit PO DAILY 12/09/16 [Vitamin D3] Tizanidine HCl [Zanaflex] 4 mg PO Q6H PRN PRN 12/27/16 Dicyclomine HCl [Bentyl] 10 mg PO TIDAC capsule 01/04/17 Metoprolol Tartrate 25 mg PO BID #60 tablet 01/04/17 Nutritional Supplement [Chuy - 1 packet PO BIDCM packet 01/04/17 [place]] Acetaminophen [Tylenol Tablet] 650 mg PO Q6H PRN PRN tablet 01/13/17 Cefepime HCl [Maxipime] 2 gm IV Q8 vial 01/13/17 Fentanyl [Duragesic] 25 mcg TRANSDERM. Q3D #3 patch 01/13/17 Gabapentin [Neurontin] 800 mg PO TIDCM tablet 01/13/17 Guaifenesin Dm [Robitussin Dm] 10 ml PO Q4H PRN PRN udc 01/13/17 Ibuprofen [Motrin] 800 mg PO TID PRN PRN tablet 01/13/17 Metronidazole [Flagyl] 500 mg PO TID #1 tablet 01/13/17 Oxycodone [Oxyir] 10 mg PO Q4H PRN PRN #30 tablet 01/13/17 Maternal Family History: No pertinent history Paternal Family History: No pertinent history Smoking Status: Former smoker Physical Exam Vital Signs Temp Pulse Resp BP 96 F L 78 16 121/66 H 04/07/17 10:34 04/07/17 10:34 04/07/17 10:34 04/07/17 10:34 Assessment/Plan Patient appears to be tolerating hyperbaric oxygen therapy well, which will be continued as per the patient's medical plan.
[2017-04-10 10:46] VITALS: BP 143/76; BP 160/78; PULSE 77; PULSE 79; RESP 16; TEMP 36.5; TEMP 36.8
[2017-04-11 10:27] VITALS: BP 138/88; BP 142/74; PULSE 79; RESP 16; TEMP 36.4; TEMP 36.6
--- NOTE | 2017-04-11 11:47 | PCM.HBO.PN ---
History of Present Illness Date of Service: 04/11/17 Presenting Chief Complaint: Nonhealing radiation pressure sore abscess ulcer right gluteal/ischial area, Stage IV, with 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 BRYN TROTTER is a 62 year old currently undergoing hyperbaric oxygen therapy for nonhealing radiation pressure sore abscess ulcer right gluteal/ischial area, Stage IV, with 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 Progress: Treatment #7 hyperbaric oxygen therapy. Tolerance of hyperbaric oxygen therapy: Hyperbaric oxygen therapy was administered as per the facility protocol. Hyperbaric oxygen therapy was undertaken today without complaints or complications. Upon emergence from the hyperbaric chamber today, the patient's vital signs were stable. The patient was discharged in good condition. Patient is tolerating the hyperbaric oxygen therapy and will continue as prescribed. Past Medical History Chronic Problems Anal cancer (Chronic) Hepatitis C carrier (Chronic) COPD (chronic obstructive pulmonary disease) (Chronic) Anxiety and depression (Chronic) HTN (hypertension) (Chronic) HLD (hyperlipidemia) (Chronic) GERD (gastroesophageal reflux disease) (Chronic) PAD (peripheral artery disease) (Chronic) Allergies/Adverse Reactions: Allergies povidone-iodine [From Betadine] Allergy (Verified 01/30/17 10:32) Hives Snakwum-Khs-Vdu Reductase Inhibitor Adverse Reaction (Verified 01/30/17 10:32) MESSED MY LIVER UP adhesive tape Allergy (Uncoded 12/29/16 14:53) Itching/rash Home Medications: Ambulatory Orders Medication Instructions Recorded Albuterol Inhaler [Ventolin Hfa] 2 puff INHALATION Q4H PRN PRN 03/22/16 Aspirin [Aspirin, Baby] 81 mg PO DAILY@0800 03/22/16 BuPROPion (XL) [Wellbutrin Xl] 300 mg PO DAILY 03/22/16 BusPIRone [Buspar] 5 mg PO TID 03/22/16 Escitalopram Oxalate [Lexapro] 10 mg PO QHS 03/22/16 Ezetimibe [Zetia] 10 mg PO QHS 03/22/16 Fluticasone 0.05% [Flonase Nasal 2 spray NASAL BID 03/22/16 [place]] Multivitamin [Multiple Vitamins] 1 each PO DAILY 03/22/16 Omeprazole [Prilosec] 40 mg PO QHS 03/22/16 Tiotropium [place] [Spiriva 2 puff INHALATION DAILY 10/20/16 Respimat] Cholecalciferol (Vitamin D3) 1,000 unit PO DAILY 12/09/16 [Vitamin D3] Tizanidine HCl [Zanaflex] 4 mg PO Q6H PRN PRN 12/27/16 Dicyclomine HCl [Bentyl] 10 mg PO TIDAC capsule 01/04/17 Metoprolol Tartrate 25 mg PO BID #60 tablet 01/04/17 Nutritional Supplement [Chuy - 1 packet PO BIDCM packet 01/04/17 [place]] Acetaminophen [Tylenol Tablet] 650 mg PO Q6H PRN PRN tablet 01/13/17 Cefepime HCl [Maxipime] 2 gm IV Q8 vial 01/13/17 Fentanyl [Duragesic] 25 mcg TRANSDERM. Q3D #3 patch 01/13/17 Gabapentin [Neurontin] 800 mg PO TIDCM tablet 01/13/17 Guaifenesin Dm [Robitussin Dm] 10 ml PO Q4H PRN PRN udc 01/13/17 Ibuprofen [Motrin] 800 mg PO TID PRN PRN tablet 01/13/17 Metronidazole [Flagyl] 500 mg PO TID #1 tablet 01/13/17 Oxycodone [Oxyir] 10 mg PO Q4H PRN PRN #30 tablet 01/13/17 Maternal Family History: No pertinent history Paternal Family History: No pertinent history Smoking Status: Former smoker Physical Exam Vital Signs Temp Pulse Resp BP 97.9 F 79 16 142/74 H 04/11/17 10:27 04/11/17 10:27 04/11/17 10:27 04/11/17 10:27 General: Alert, Oriented x3, Cooperative, No apparent distress, Well developed, Well nourished HEENT: Atraumatic, PERRLA, EOMI, Normocephalic Lungs: Normal air movement Psych/Mental Status: Normal Affect, Appropriate, Alert and oriented to time, place, person, mood and affect Assessment/Plan Patient appears to be tolerating hyperbaric oxygen therapy well, which will be continued as per the patient's medical plan.
--- NOTE | 2017-04-11 11:51 | HBO.PN.PCM_ITS ---
History of Present Illness Date of Service: 04/11/17 Presenting Chief Complaint: Nonhealing radiation pressure sore abscess ulcer right gluteal/ischial area, Stage IV, with 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 BRYN TROTTER is a 62 year old currently undergoing hyperbaric oxygen therapy for nonhealing radiation pressure sore abscess ulcer right gluteal/ ischial area, Stage IV, with 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 Progress: Treatment #7 hyperbaric oxygen therapy. Tolerance of hyperbaric oxygen therapy: Hyperbaric oxygen therapy was administered as per the facility protocol. Hyperbaric oxygen therapy was undertaken today without complaints or complications. Upon emergence from the hyperbaric chamber today, the patient's vital signs were stable. The patient was discharged in good condition. Patient is tolerating the hyperbaric oxygen therapy and will continue as prescribed. Past Medical History Chronic Problems Anal cancer (Chronic) Hepatitis C carrier (Chronic) COPD (chronic obstructive pulmonary disease) (Chronic) Anxiety and depression (Chronic) HTN (hypertension) (Chronic) HLD (hyperlipidemia) (Chronic) GERD (gastroesophageal reflux disease) (Chronic) PAD (peripheral artery disease) (Chronic) Allergies/Adverse Reactions: Allergies povidone-iodine [From Betadine] Allergy (Verified 01/30/17 10:32) Hives Vlyjoqv-Kdw-Fey Reductase Inhibitor Adverse Reaction (Verified 01/30/17 10:32) MESSED MY LIVER UP adhesive tape Allergy (Uncoded 12/29/16 14:53) Itching/rash Home Medications: Ambulatory Orders Medication Instructions Recorded Albuterol Inhaler [Ventolin Hfa] 2 puff INHALATION Q4H PRN PRN 03/22/16 Aspirin [Aspirin, Baby] 81 mg PO DAILY@0800 03/22/16 BuPROPion (XL) [Wellbutrin Xl] 300 mg PO DAILY 03/22/16 BusPIRone [Buspar] 5 mg PO TID 03/22/16 Escitalopram Oxalate [Lexapro] 10 mg PO QHS 03/22/16 Ezetimibe [Zetia] 10 mg PO QHS 03/22/16 Fluticasone 0.05% [Flonase Nasal 2 spray NASAL BID 03/22/16 [place]] Multivitamin [Multiple Vitamins] 1 each PO DAILY 03/22/16 Omeprazole [Prilosec] 40 mg PO QHS 03/22/16 Tiotropium [place] [Spiriva 2 puff INHALATION DAILY 10/20/16 Respimat] Cholecalciferol (Vitamin D3) 1,000 unit PO DAILY 12/09/16 [Vitamin D3] Tizanidine HCl [Zanaflex] 4 mg PO Q6H PRN PRN 12/27/16 Dicyclomine HCl [Bentyl] 10 mg PO TIDAC capsule 01/04/17 Metoprolol Tartrate 25 mg PO BID #60 tablet 01/04/17 Nutritional Supplement [Chuy - 1 packet PO BIDCM packet 01/04/17 [place]] Acetaminophen [Tylenol Tablet] 650 mg PO Q6H PRN PRN tablet 01/13/17 Cefepime HCl [Maxipime] 2 gm IV Q8 vial 01/13/17 Fentanyl [Duragesic] 25 mcg TRANSDERM. Q3D #3 patch 01/13/17 Gabapentin [Neurontin] 800 mg PO TIDCM tablet 01/13/17 Guaifenesin Dm [Robitussin Dm] 10 ml PO Q4H PRN PRN udc 01/13/17 Ibuprofen [Motrin] 800 mg PO TID PRN PRN tablet 01/13/17 Metronidazole [Flagyl] 500 mg PO TID #1 tablet 01/13/17 Oxycodone [Oxyir] 10 mg PO Q4H PRN PRN #30 tablet 01/13/17 Maternal Family History: No pertinent history Paternal Family History: No pertinent history Smoking Status: Former smoker Physical Exam Vital Signs Temp Pulse Resp BP 97.9 F 79 16 142/74 H 04/11/17 10:27 04/11/17 10:27 04/11/17 10:27 04/11/17 10:27 General: Alert, Oriented x3, Cooperative, No apparent distress, Well developed, Well nourished HEENT: Atraumatic, PERRLA, EOMI, Normocephalic Lungs: Normal air movement Psych/Mental Status: Normal Affect, Appropriate, Alert and oriented to time, place, person, mood and affect Assessment/Plan Patient appears to be tolerating hyperbaric oxygen therapy well, which will be continued as per the patient's medical plan.
[2017-04-11 12:22] LABS: Prealbumin 29.6 mg/dL (20.0-40.0)
[2017-04-12 10:41] VITALS: BP 151/94; PULSE 77; RESP 16; TEMP 36.7
--- NOTE | 2017-04-12 17:17 | PCM.HBO.PN ---
History of Present Illness Date of Service: 04/12/17 Presenting Chief Complaint: Nonhealing radiation pressure sore abscess ulcer right gluteal/ischial area, Stage IV, with 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 BRYN TROTTER is a 62 year old currently undergoing hyperbaric oxygen therapy for nonhealing radiation pressure sore abscess ulcer right gluteal/ischial area, Stage IV, with 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 Progress: The patient has tolerated Hyperbaric Oxygen Therapy well so far. Tolerance of hyperbaric oxygen therapy: Hyperbaric oxygen therapy was administered as per the facility protocol. Hyperbaric oxygen therapy was undertaken today without complaints or complications. Upon emergence from the hyperbaric chamber today, the patient's vital signs were stable. The patient was discharged in good condition. Patient is tolerating the hyperbaric oxygen therapy and will continue as prescribed. Past Medical History Chronic Problems Anal cancer (Chronic) Hepatitis C carrier (Chronic) COPD (chronic obstructive pulmonary disease) (Chronic) Anxiety and depression (Chronic) HTN (hypertension) (Chronic) HLD (hyperlipidemia) (Chronic) GERD (gastroesophageal reflux disease) (Chronic) PAD (peripheral artery disease) (Chronic) Allergies/Adverse Reactions: Allergies povidone-iodine [From Betadine] Allergy (Verified 01/30/17 10:32) Hives Owdkjet-Btb-Sgu Reductase Inhibitor Adverse Reaction (Verified 01/30/17 10:32) MESSED MY LIVER UP adhesive tape Allergy (Uncoded 12/29/16 14:53) Itching/rash Home Medications: Ambulatory Orders Medication Instructions Recorded RX: Albuterol Inhaler [Ventolin 2 puff INHALATION Q4H PRN PRN 03/22/16 Hfa] RX: Aspirin [Aspirin, Baby] 81 mg PO DAILY@0800 03/22/16 RX: BuPROPion (XL) [Wellbutrin Xl] 300 mg PO DAILY 03/22/16 RX: BusPIRone [Buspar] 5 mg PO TID 03/22/16 RX: Escitalopram Oxalate [Lexapro] 10 mg PO QHS 03/22/16 RX: Ezetimibe [Zetia] 10 mg PO QHS 03/22/16 RX: Fluticasone 0.05% [Flonase 2 spray NASAL BID 03/22/16 Nasal [place]] RX: Multivitamin [Multiple 1 each PO DAILY 03/22/16 Vitamins] RX: Omeprazole [Prilosec] 40 mg PO QHS 03/22/16 RX: Tiotropium [place] [Spiriva 2 puff INHALATION DAILY 10/20/16 Respimat] RX: Cholecalciferol (Vitamin D3) 1,000 unit PO DAILY 12/09/16 [Vitamin D3] RX: Tizanidine HCl [Zanaflex] 4 mg PO Q6H PRN PRN 12/27/16 RX: Dicyclomine HCl [Bentyl] 10 mg PO TIDAC capsule 01/04/17 RX: Metoprolol Tartrate 25 mg PO BID #60 tablet 01/04/17 RX: Nutritional Supplement [Chuy 1 packet PO BIDCM packet 01/04/17 - [place]] RX: Acetaminophen [Tylenol Tablet] 650 mg PO Q6H PRN PRN tablet 01/13/17 RX: Cefepime HCl [Maxipime] 2 gm IV Q8 vial 01/13/17 RX: Fentanyl [Duragesic] 25 mcg TRANSDERM. Q3D #3 patch 01/13/17 RX: Gabapentin [Neurontin] 800 mg PO TIDCM tablet 01/13/17 RX: Guaifenesin Dm [Robitussin Dm] 10 ml PO Q4H PRN PRN udc 01/13/17 RX: Ibuprofen [Motrin] 800 mg PO TID PRN PRN tablet 01/13/17 RX: Metronidazole [Flagyl] 500 mg PO TID #1 tablet 01/13/17 RX: Oxycodone [Oxyir] 10 mg PO Q4H PRN PRN #30 tablet 01/13/17 Maternal Family History: No pertinent history Paternal Family History: No pertinent history Smoking Status: Former smoker Physical Exam Vital Signs Temp Pulse Resp BP 98.1 F 77 16 151/94 H 04/12/17 10:41 04/12/17 10:41 04/12/17 10:41 04/12/17 10:41 General: Alert, Oriented x3, Cooperative, No apparent distress HEENT: Atraumatic, Normocephalic, TM's Clear Lungs: Normal air movement Cardiovascular: Regular rate Psych/Mental Status: Normal Affect Assessment/Plan Patient appears to be tolerating hyperbaric oxygen therapy well, which will be continued as per the patient's medical plan.
--- NOTE | 2017-04-17 22:56 | PCM.HBO.PN ---
History of Present Illness Date of Service: 04/17/17 Presenting Chief Complaint: Nonhealing radiation pressure sore abscess ulcer right gluteal/ischial area, Stage IV, with 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 BRYN TROTTER is a 62 year old currently undergoing hyperbaric oxygen therapy for nonhealing radiation pressure sore abscess ulcer right gluteal/ischial area, Stage IV, with 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 Progress: Treatment #11 hyperbaric oxygen therapy. Tolerance of hyperbaric oxygen therapy: Upon emergence from the hyperbaric chamber today, the patient had no complaints or complications. Patient's vital signs have been stable and has been discharged in good condition. Patient is tolerating the hyperbaric oxygen therapy and will continue as prescribed. Past Medical History Chronic Problems Anal cancer (Chronic) Hepatitis C carrier (Chronic) COPD (chronic obstructive pulmonary disease) (Chronic) Anxiety and depression (Chronic) HTN (hypertension) (Chronic) HLD (hyperlipidemia) (Chronic) GERD (gastroesophageal reflux disease) (Chronic) PAD (peripheral artery disease) (Chronic) Allergies/Adverse Reactions: Allergies povidone-iodine [From Betadine] Allergy (Verified 01/30/17 10:32) Hives Nvuenlq-Bpv-Ewa Reductase Inhibitor Adverse Reaction (Verified 01/30/17 10:32) MESSED MY LIVER UP adhesive tape Allergy (Uncoded 12/29/16 14:53) Itching/rash Home Medications: Ambulatory Orders Medication Instructions Recorded Albuterol Inhaler [Ventolin Hfa] 2 puff INHALATION Q4H PRN PRN 03/22/16 Aspirin [Aspirin, Baby] 81 mg PO DAILY@0800 03/22/16 BuPROPion (XL) [Wellbutrin Xl] 300 mg PO DAILY 03/22/16 BusPIRone [Buspar] 5 mg PO TID 03/22/16 Escitalopram Oxalate [Lexapro] 10 mg PO QHS 03/22/16 Ezetimibe [Zetia] 10 mg PO QHS 03/22/16 Fluticasone 0.05% [Flonase Nasal 2 spray NASAL BID 03/22/16 [place]] Multivitamin [Multiple Vitamins] 1 each PO DAILY 03/22/16 Omeprazole [Prilosec] 40 mg PO QHS 03/22/16 Tiotropium [place] [Spiriva 2 puff INHALATION DAILY 10/20/16 Respimat] Cholecalciferol (Vitamin D3) 1,000 unit PO DAILY 12/09/16 [Vitamin D3] Tizanidine HCl [Zanaflex] 4 mg PO Q6H PRN PRN 12/27/16 Dicyclomine HCl [Bentyl] 10 mg PO TIDAC capsule 01/04/17 Metoprolol Tartrate 25 mg PO BID #60 tablet 01/04/17 Nutritional Supplement [[place] - 1 packet PO BIDCM packet 01/04/17 [place]] Acetaminophen [Tylenol Tablet] 650 mg PO Q6H PRN PRN tablet 01/13/17 Cefepime HCl [Maxipime] 2 gm IV Q8 vial 01/13/17 Fentanyl [Duragesic] 25 mcg TRANSDERM. Q3D #3 patch 01/13/17 Gabapentin [Neurontin] 800 mg PO TIDCM tablet 01/13/17 Guaifenesin Dm [Robitussin Dm] 10 ml PO Q4H PRN PRN udc 01/13/17 Ibuprofen [Motrin] 800 mg PO TID PRN PRN tablet 01/13/17 Metronidazole [Flagyl] 500 mg PO TID #1 tablet 01/13/17 Oxycodone [Oxyir] 10 mg PO Q4H PRN PRN #30 tablet 01/13/17 Maternal Family History: No pertinent history Paternal Family History: No pertinent history Smoking Status: Former smoker Physical Exam Vital Signs Temp Pulse Resp BP 98.1 F 77 16 151/94 H 04/12/17 10:41 04/12/17 10:41 04/12/17 10:41 04/12/17 10:41
--- NOTE | 2017-04-21 20:47 | HBO.PN.PCM_ITS ---
History of Present Illness Date of Service: 04/17/17 Presenting Chief Complaint: Nonhealing radiation pressure sore abscess ulcer right gluteal/ischial area, Stage IV, with 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 BRYN TROTTER is a 62 year old currently undergoing hyperbaric oxygen therapy for nonhealing radiation pressure sore abscess ulcer right gluteal/ ischial area, Stage IV, with 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 Progress: Treatment #11 hyperbaric oxygen therapy. Tolerance of hyperbaric oxygen therapy: Upon emergence from the hyperbaric chamber today, the patient had no complaints or complications. Patient's vital signs have been stable and has been discharged in good condition. Patient is tolerating the hyperbaric oxygen therapy and will continue as prescribed. Past Medical History Chronic Problems Anal cancer (Chronic) Hepatitis C carrier (Chronic) COPD (chronic obstructive pulmonary disease) (Chronic) Anxiety and depression (Chronic) HTN (hypertension) (Chronic) HLD (hyperlipidemia) (Chronic) GERD (gastroesophageal reflux disease) (Chronic) PAD (peripheral artery disease) (Chronic) Allergies/Adverse Reactions: Allergies povidone-iodine [From Betadine] Allergy (Verified 01/30/17 10:32) Hives Dkcgdmf-Nkm-Hki Reductase Inhibitor Adverse Reaction (Verified 01/30/17 10:32) MESSED MY LIVER UP adhesive tape Allergy (Uncoded 12/29/16 14:53) Itching/rash Home Medications: Ambulatory Orders Medication Instructions Recorded Albuterol Inhaler [Ventolin Hfa] 2 puff INHALATION Q4H PRN PRN 03/22/16 Aspirin [Aspirin, Baby] 81 mg PO DAILY@0800 03/22/16 BuPROPion (XL) [Wellbutrin Xl] 300 mg PO DAILY 03/22/16 BusPIRone [Buspar] 5 mg PO TID 03/22/16 Escitalopram Oxalate [Lexapro] 10 mg PO QHS 03/22/16 Ezetimibe [Zetia] 10 mg PO QHS 03/22/16 Fluticasone 0.05% [Flonase Nasal 2 spray NASAL BID 03/22/16 [place]] Multivitamin [Multiple Vitamins] 1 each PO DAILY 03/22/16 Omeprazole [Prilosec] 40 mg PO QHS 03/22/16 Tiotropium [place] [Spiriva 2 puff INHALATION DAILY 10/20/16 Respimat] Cholecalciferol (Vitamin D3) 1,000 unit PO DAILY 12/09/16 [Vitamin D3] Tizanidine HCl [Zanaflex] 4 mg PO Q6H PRN PRN 12/27/16 Dicyclomine HCl [Bentyl] 10 mg PO TIDAC capsule 01/04/17 Metoprolol Tartrate 25 mg PO BID #60 tablet 01/04/17 Nutritional Supplement [[place] - 1 packet PO BIDCM packet 01/04/17 [place]] Acetaminophen [Tylenol Tablet] 650 mg PO Q6H PRN PRN tablet 01/13/17 Cefepime HCl [Maxipime] 2 gm IV Q8 vial 01/13/17 Fentanyl [Duragesic] 25 mcg TRANSDERM. Q3D #3 patch 01/13/17 Gabapentin [Neurontin] 800 mg PO TIDCM tablet 01/13/17 Guaifenesin Dm [Robitussin Dm] 10 ml PO Q4H PRN PRN udc 01/13/17 Ibuprofen [Motrin] 800 mg PO TID PRN PRN tablet 01/13/17 Metronidazole [Flagyl] 500 mg PO TID #1 tablet 01/13/17 Oxycodone [Oxyir] 10 mg PO Q4H PRN PRN #30 tablet 01/13/17 Maternal Family History: No pertinent history Paternal Family History: No pertinent history Smoking Status: Former smoker Physical Exam Vital Signs Temp Pulse Resp BP 98.1 F 77 16 151/94 H 04/12/17 10:41 04/12/17 10:41 04/12/17 10:41 04/12/17 10:41
--- NOTE | 2017-05-08 21:42 | PCM.WC.PN ---
Type of Wound Date of Service: 05/08/17 Chief Complaint: Nonhealing radiation pressure sore abscess ulcer right gluteal/ischial area, Stage IV, with 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 History of Wound: Surgery 12/30/16 - Surgical preparation right gluteal/ischial area with excision radiation pressure sore abscess wound and partial ostectomy for osteomyelitis (52.5 cm2). Wound care - Silver. There was trouble maintaining a VAC seal initially and had trouble getting it approved. Operative culture - Soft tissue, Staphylococcus aureus, Bacteroides fragilis, Anaerobic cocci. Bone, Bacteroides fragilis, Anaerobic cocci, and Fusarium species. Had another culture on 01/07/17 which showed Pseudomonas aeroginosa and presumptive Genna. He was placed on residential Cefepime IV and Flagyl po until 02/20/17. He is finished with the Cefepime and Flagyl. There was a recent culture from the ECF. It showed MRSA and C. albicans. He was started on Doxycylcine and Diflucan. Pathology - negative for osteomyelitis but rare neutrophils were present. Prealbumin from 12/30/16 was 9.8. He takes nutritional supplementation with protein to help the healing process. CT Pelvis from 12/29/16 showed evidence of abscess. This ulcer is based on anal cancer from 2002 that necessitated radiation therapy and chemotherapy. Today he denies fever. He does have pain in his right gluteal/ischial area. His appetite is ok. He has been discharged from the ECF. His HBO treatments for soft tissue radionecrosis have been started. He is tolerating them thus far. Progress of Wound: Minimal improvement. - Physical Exam Vital Signs Temp Pulse Resp BP 98.1 F 77 16 151/94 H 04/12/17 10:41 04/12/17 10:41 04/12/17 10:41 04/12/17 10:41 Debridement Note Post-Debridement Measurements/Treatment WC - Nurse 2 - General Ulcer CM Notes Start: 03/14/17 10:58 Freq: Status: Active Protocol: Activity Type Activity Date Activity User E-Sign Co-Sign Detail Recorded Client Recorded Date Recorded By Document 03/14/17 11:33 JF [id number] 03/14/17 11:34 JF Document 04/03/17 11:53 JF [id number] 04/03/17 11:54 03/14/17 04/03/17 11:33 11:53 Wound Center Nurse 2 #1 R Ischial -Time 11:34 11:53 -Correct Patient Yes Yes -Correct Side, Site, Position Yes Yes -Correct Procedure Yes Yes -Procedure Performed Yes Yes -Type of Procedure Debridement Debridement -Clinical Debridement Muscle Muscle -Post Debridement Size (cm) - Length 5.3 6.5 -Post Debridement Size (cm) - Width 3.8 4.6 -Post Debridement Size (cm) - Depth 4.3 3.2 -Total Square Cm 20.14 29.90 -Wound/Ulcer Outcome Not Healed Not Healed -Ulcer Cleansing Rinsed/ Rinsed/ Irrigated with Irrigated with Saline Saline -Foul Odor after Cleansing No No -Bioengineered Tissue No No -Cetacaine [place] No No -Bleeding Controlled with Pressure Pressure -Treatment Response Procedure Procedure Tolerated Well Tolerated Well Pain Scale: 0-10 Numeric Is Patient Pain Free? Yes Yes Wound debrided: #1 Right ischial area. Laterality: Right Wound Grade/Stage: IV. Type of Debridement: Excisional debridement Anesthesia Used: 4% Lidocaine Solution Depth: Down to and including healthy tissue, in the subcutaneous layer, to muscle, to bone - bone is exposed but not debrided. Percentage of wound debrided: 100 Instrument Used: 7mm curette Tissue Removed: subcutaneous tissue and muscle. Severity: Fat Layer Exposed - muscle is exposed. bone is exposed but not debrided. Amount of bleeding with debridement: Mild Bleeding Controlled with: Pressure Patient tolerated procedure well Assessment/Plan Assessment: 1. 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 2. Late effect radiation right gluteal area. 3. History of anal CA treated with chemotherapy and radiation therapy. 4. s/p surgical preparation right gluteal/ischial area with excision radiation pressure sore abscess wound and partial ostectomy for osteomyelitis (52.5 cm2). 5. MRSA. Plan: Continue Silver dressing changes. Some improvement has been seen now that he is getting HBO treatments for his soft tissue radionecrosis which will increase the vascularity of the ulcer and improve healing. He has been discharged from the [facility]. While at the [facility], the VAC was tried again. However had difficulty getting approval for the VAC. He finished the operative Cefepime IV and Flagyl po without difficulty. A recent culture at the [facility] showed MRSA and C. albicans. He is currently on Doxycycline and Diflucan. Prealbumin from 12/30/16 was 9.8. He takes nutritional supplementation with protein to help the healing process. Followup 3 weeks.
--- NOTE | 2017-05-08 22:26 | PCM.HBO.PN ---
History of Present Illness Date of Service: 05/08/17 Presenting Chief Complaint: Nonhealing radiation pressure sore abscess ulcer right gluteal/ischial area, Stage IV, with 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 BRYN TROTTER is a 62 year old currently undergoing hyperbaric oxygen therapy for nonhealing radiation pressure sore abscess ulcer right gluteal/ischial area, Stage IV, with 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 Progress: Treatment #26 hyperbaric oxygen therapy. Tolerance of hyperbaric oxygen therapy: Upon emergence from the hyperbaric chamber today, the patient had no complaints or complications. Patient's vital signs have been stable and has been discharged in good condition. Patient is tolerating the hyperbaric oxygen therapy and will continue as prescribed. 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, stage 4 (Chronic) Anal cancer (Chronic) Hepatitis C carrier (Chronic) COPD (chronic obstructive pulmonary disease) (Chronic) Anxiety and depression (Chronic) HTN (hypertension) (Chronic) HLD (hyperlipidemia) (Chronic) GERD (gastroesophageal reflux disease) (Chronic) PAD (peripheral artery disease) (Chronic) Allergies/Adverse Reactions: Allergies povidone-iodine [From Betadine] Allergy (Verified 06/06/17 14:24) Hives Dnfynzv-Jpv-Vnd Reductase Inhibitor Adverse Reaction (Verified 06/06/17 14:24) MESSED MY LIVER UP adhesive tape Allergy (Uncoded 06/06/17 14:24) Itching/rash Home Medications: Ambulatory Orders Medication Instructions Recorded Albuterol Inhaler [Ventolin Hfa] 2 puff INHALATION Q4H PRN PRN 03/22/16 Aspirin [Aspirin, Baby] 81 mg PO DAILY@0800 03/22/16 Escitalopram Oxalate [Lexapro] 10 mg PO QHS 03/22/16 Ezetimibe [Zetia] 10 mg PO QHS 03/22/16 Fluticasone 0.05% [Flonase Nasal 2 spray NASAL BID 03/22/16 [place]] Multivitamin [Multiple Vitamins] 1 each PO DAILY 03/22/16 Omeprazole [Prilosec] 40 mg PO QHS 03/22/16 buPROPion XL [Wellbutrin Xl] 300 mg PO QHS 03/22/16 busPIRone [Buspar] 5 mg PO TID 03/22/16 Tiotropium [place] [Spiriva 2 puff INHALATION DAILY 10/20/16 Respimat] Cholecalciferol (Vitamin D3) 1,000 unit PO DAILY 12/09/16 [Vitamin D3] Tizanidine HCl [Zanaflex] 4 mg PO Q6H PRN PRN 12/27/16 Metoprolol Tartrate 25 mg PO BID #60 tablet 01/04/17 Nutritional Supplement [Chuy - 1 packet PO BIDCM packet 01/04/17 [place]] Acetaminophen [Tylenol Tablet] 650 mg PO Q6H PRN PRN tablet 01/13/17 Gabapentin [Neurontin] 800 mg PO TIDCM tablet 01/13/17 Ibuprofen [Motrin] 800 mg PO TID 06/06/17 Triamterene 37.5MG/Hctz 25MG 0.5 cap PO DAILY 06/06/17 [Dyazide (G)] Testosterone [Androderm 2mg/24 hr] 1 each TD 06/08/17 Piperacil/Tazobactam [Zosyn] 3.375 gm IV Q8 40 Days #120 dose 06/13/17 Diazepam [Valium] 5 mg PO 4X/DAY PRN PRN #30 tab 06/14/17 DiphenhydrAMINE [Benadryl] 25 mg PO Q6H PRN capsule 06/14/17 Docusate Sodium [Colace] 100 mg PO BID capsule 06/14/17 Ensure Enlive 120 ml PO 4X/DAY liquid 06/14/17 Heparin Sodium,Porcine/Pf [Heparin 500 unit IV UD PRN syringe 06/14/17 500 Unit/5 ml (100/ml)] Ibuprofen [Motrin] 800 mg PO Q8H PRN PRN tablet 06/14/17 Ipratropium [Atrovent Aerosols] 0.5 mg INHALATION Q6HWA.RT 06/14/17 solution Iron Polysaccharide Complex 150 mg PO DAILYCM capsule 06/14/17 [Ferrex 150] Loperamide [Imodium] 2 mg PO Q4H PRN PRN capsule 06/14/17 Nutritional Supplement [Chuy - 1 packet PO BIDCM packet 06/14/17 [place]] Oxycodone HCl/Acetaminophen 1 - 2 tab PO 4X/DAY PRN PRN 5 Days 06/14/17 [Percocet 5/325] #40 tab Testosterone [Androderm 2mg/24 hr] 1 each TD DAILY patch.td24 06/14/17 proMETHazine tablet [Phenergan 25 mg PO Q4H PRN PRN tablet 06/14/17 tablet] Shaina [Ultra-Light Rollator] 1 shaina .QDAILY 180 Days #1 ea 08/28/17 Maternal Family History: No pertinent history Paternal Family History: No pertinent history Smoking Status: Former smoker Physical Exam Vital Signs Temp Pulse Resp BP 98.1 F 77 16 151/94 H 04/12/17 10:41 04/12/17 10:41 04/12/17 10:41 04/12/17 10:41
--- NOTE | 2017-05-10 00:13 | PN.PCM_ITS ---
Type of Wound Date of Service: 05/08/17 Chief Complaint: Nonhealing radiation pressure sore abscess ulcer right gluteal/ ischial area, Stage IV, with 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 History of Wound: Surgery 12/30/16 - Surgical preparation right gluteal/ischial area with excision radiation pressure sore abscess wound and partial ostectomy for osteomyelitis (52.5 cm2). Wound care - Silver. There was trouble maintaining a VAC seal initially and had trouble getting it approved. Operative culture - Soft tissue, Staphylococcus aureus, Bacteroides fragilis, Anaerobic cocci. Bone, Bacteroides fragilis, Anaerobic cocci, and Fusarium species. Had another culture on 01/07/17 which showed Pseudomonas aeroginosa and presumptive Genna. He was placed on usp Cefepime IV and Flagyl po until 02/20/17. He is finished with the Cefepime and Flagyl. There was a recent culture from the ECF. It showed MRSA and C. albicans. He was started on Doxycylcine and Diflucan. Pathology - negative for osteomyelitis but rare neutrophils were present. Prealbumin from 12/30/16 was 9.8. He takes nutritional supplementation with protein to help the healing process. CT Pelvis from 12/29/16 showed evidence of abscess. This ulcer is based on anal cancer from 2002 that necessitated radiation therapy and chemotherapy. Today he denies fever. He does have pain in his right gluteal/ischial area. His appetite is ok. He has been discharged from the ECF. His HBO treatments for soft tissue radionecrosis have been started. He is tolerating them thus far. Progress of Wound: Minimal improvement. - Physical Exam Vital Signs Temp Pulse Resp BP 98.1 F 77 16 151/94 H 04/12/17 10:41 04/12/17 10:41 04/12/17 10:41 04/12/17 10:41 Debridement Note Post-Debridement Measurements/Treatment WC - Nurse 2 - General Ulcer CM Notes Start: 03/14/17 10:58 Freq: Status: Active Protocol: Activity Type Activity Date Activity User E-Sign Co-Sign Detail Recorded Client Recorded Date Recorded By Document 03/14/17 11:33 JF [id number] 03/14/17 11:34 JF Document 04/03/17 11:53 JF [id number] 04/03/17 11:54 03/14/17 04/03/17 11:33 11:53 Wound Center Nurse 2 #1 R Ischial -Time 11:34 11:53 -Correct Patient Yes Yes -Correct Side, Site, Position Yes Yes -Correct Procedure Yes Yes -Procedure Performed Yes Yes -Type of Procedure Debridement Debridement -Clinical Debridement Muscle Muscle -Post Debridement Size (cm) - Length 5.3 6.5 -Post Debridement Size (cm) - Width 3.8 4.6 -Post Debridement Size (cm) - Depth 4.3 3.2 -Total Square Cm 20.14 29.90 -Wound/Ulcer Outcome Not Healed Not Healed -Ulcer Cleansing Rinsed/ Rinsed/ Irrigated with Irrigated with Saline Saline -Foul Odor after Cleansing No No -Bioengineered Tissue No No -Cetacaine [place] No No -Bleeding Controlled with Pressure Pressure -Treatment Response Procedure Procedure Tolerated Well Tolerated Well Pain Scale: 0-10 Numeric Is Patient Pain Free? Yes Yes Wound debrided: #1 Right ischial area. Laterality: Right Wound Grade/Stage: IV. Type of Debridement: Excisional debridement Anesthesia Used: 4% Lidocaine Solution Depth: Down to and including healthy tissue, in the subcutaneous layer, to muscle, to bone - bone is exposed but not debrided. Percentage of wound debrided: 100 Instrument Used: 7mm curette Tissue Removed: subcutaneous tissue and muscle. Severity: Fat Layer Exposed - muscle is exposed. bone is exposed but not debrided. Amount of bleeding with debridement: Mild Bleeding Controlled with: Pressure Patient tolerated procedure well Assessment/Plan Assessment: 1. 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 2. Late effect radiation right gluteal area. 3. History of anal CA treated with chemotherapy and radiation therapy. 4. s/p surgical preparation right gluteal/ischial area with excision radiation pressure sore abscess wound and partial ostectomy for osteomyelitis (52.5 cm2). 5. MRSA. Plan: Continue Silver dressing changes. Some improvement has been seen now that he is getting HBO treatments for his soft tissue radionecrosis which will increase the vascularity of the ulcer and improve healing. He has been discharged from the [facility]. While at the [facility], the VAC was tried again. However had difficulty getting approval for the VAC. He finished the operative Cefepime IV and Flagyl po without difficulty. A recent culture at the [facility] showed MRSA and C. albicans. He is currently on Doxycycline and Diflucan. Prealbumin from 12/30/16 was 9.8. He takes nutritional supplementation with protein to help the healing process. Followup 3 weeks.
--- NOTE | 2017-05-10 00:17 | HBO.PN.PCM_ITS ---
History of Present Illness Date of Service: 05/08/17 Presenting Chief Complaint: Nonhealing radiation pressure sore abscess ulcer right gluteal/ischial area, Stage IV, with 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 BRYN TROTTER is a 62 year old currently undergoing hyperbaric oxygen therapy for nonhealing radiation pressure sore abscess ulcer right gluteal/ ischial area, Stage IV, with 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 Progress: Treatment #26 hyperbaric oxygen therapy. Tolerance of hyperbaric oxygen therapy: Upon emergence from the hyperbaric chamber today, the patient had no complaints or complications. Patient's vital signs have been stable and has been discharged in good condition. Patient is tolerating the hyperbaric oxygen therapy and will continue as prescribed. 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, stage 4 (Chronic) Anal cancer (Chronic) Hepatitis C carrier (Chronic) COPD (chronic obstructive pulmonary disease) (Chronic) Anxiety and depression (Chronic) HTN (hypertension) (Chronic) HLD (hyperlipidemia) (Chronic) GERD (gastroesophageal reflux disease) (Chronic) PAD (peripheral artery disease) (Chronic) Allergies/Adverse Reactions: Allergies povidone-iodine [From Betadine] Allergy (Verified 06/06/17 14:24) Hives Mrdbalq-Gvc-Bcl Reductase Inhibitor Adverse Reaction (Verified 06/06/17 14:24) MESSED MY LIVER UP adhesive tape Allergy (Uncoded 06/06/17 14:24) Itching/rash Home Medications: Ambulatory Orders Medication Instructions Recorded Albuterol Inhaler [Ventolin Hfa] 2 puff INHALATION Q4H PRN PRN 03/22/16 Aspirin [Aspirin, Baby] 81 mg PO DAILY@0800 03/22/16 Escitalopram Oxalate [Lexapro] 10 mg PO QHS 03/22/16 Ezetimibe [Zetia] 10 mg PO QHS 03/22/16 Fluticasone 0.05% [Flonase Nasal 2 spray NASAL BID 03/22/16 [place]] Multivitamin [Multiple Vitamins] 1 each PO DAILY 03/22/16 Omeprazole [Prilosec] 40 mg PO QHS 03/22/16 buPROPion XL [Wellbutrin Xl] 300 mg PO QHS 03/22/16 busPIRone [Buspar] 5 mg PO TID 03/22/16 Tiotropium [place] [Spiriva 2 puff INHALATION DAILY 10/20/16 Respimat] Cholecalciferol (Vitamin D3) 1,000 unit PO DAILY 12/09/16 [Vitamin D3] Tizanidine HCl [Zanaflex] 4 mg PO Q6H PRN PRN 12/27/16 Metoprolol Tartrate 25 mg PO BID #60 tablet 01/04/17 Nutritional Supplement [Chuy - 1 packet PO BIDCM packet 01/04/17 [place]] Acetaminophen [Tylenol Tablet] 650 mg PO Q6H PRN PRN tablet 01/13/17 Gabapentin [Neurontin] 800 mg PO TIDCM tablet 01/13/17 Ibuprofen [Motrin] 800 mg PO TID 06/06/17 Triamterene 37.5MG/Hctz 25MG 0.5 cap PO DAILY 06/06/17 [Dyazide (G)] Testosterone [Androderm 2mg/24 hr] 1 each TD 06/08/17 Piperacil/Tazobactam [Zosyn] 3.375 gm IV Q8 40 Days #120 dose 06/13/17 Diazepam [Valium] 5 mg PO 4X/DAY PRN PRN #30 tab 06/14/17 DiphenhydrAMINE [Benadryl] 25 mg PO Q6H PRN capsule 06/14/17 Docusate Sodium [Colace] 100 mg PO BID capsule 06/14/17 Ensure Enlive 120 ml PO 4X/DAY liquid 06/14/17 Heparin Sodium,Porcine/Pf [Heparin 500 unit IV UD PRN syringe 06/14/17 500 Unit/5 ml (100/ml)] Ibuprofen [Motrin] 800 mg PO Q8H PRN PRN tablet 06/14/17 Ipratropium [Atrovent Aerosols] 0.5 mg INHALATION Q6HWA.RT 06/14/17 solution Iron Polysaccharide Complex 150 mg PO DAILYCM capsule 06/14/17 [Ferrex 150] Loperamide [Imodium] 2 mg PO Q4H PRN PRN capsule 06/14/17 Nutritional Supplement [Chuy - 1 packet PO BIDCM packet 06/14/17 [place]] Oxycodone HCl/Acetaminophen 1 - 2 tab PO 4X/DAY PRN PRN 5 Days 06/14/17 [Percocet 5/325] #40 tab Testosterone [Androderm 2mg/24 hr] 1 each TD DAILY patch.td24 06/14/17 proMETHazine tablet [Phenergan 25 mg PO Q4H PRN PRN tablet 06/14/17 tablet] Shaina [Ultra-Light Rollator] 1 shaina .QDAILY 180 Days #1 ea 08/28/17 Maternal Family History: No pertinent history Paternal Family History: No pertinent history Smoking Status: Former smoker Physical Exam Vital Signs Temp Pulse Resp BP 98.1 F 77 16 151/94 H 04/12/17 10:41 04/12/17 10:41 04/12/17 10:41 04/12/17 10:41
== END 2017-04-12 23:59 ==
LOC: WC 09:45
PROVIDERS: Family Provider Internal Medicine; PCP Internal Medicine; Visit Provider Surgery
DX: L59.8 Other specified disorders of the skin and subcutaneous tissue related to radiation (principal); L89.214 Pressure ulcer of right hip, stage 4; Y84.2 Radiological procedure and radiotherapy as the cause of abnormal reaction of the patient, or of later complication, without mention of misadventure at the time of the procedure; B18.2 Chronic viral hepatitis C; J44.9 Chronic obstructive pulmonary disease, unspecified; E78.5 Hyperlipidemia, unspecified; I10 Essential (primary) hypertension; K21.9 Gastro-esophageal reflux disease without esophagitis; I73.9 Peripheral vascular disease, unspecified; Z86.14 Personal history of Methicillin resistant Staphylococcus aureus infection; Z86.19 Personal history of other infectious and parasitic diseases; Z92.21 Personal history of antineoplastic chemotherapy; Z85.048 Personal history of other malignant neoplasm of rectum, rectosigmoid junction, and anus; Z79.899 Other long term (current) drug therapy; Z79.82 Long term (current) use of aspirin; Z87.891 Personal history of nicotine dependence
CPT/HCPCS: 11043; 11046; 84134; 99183; 99212; 99213; G0277; G0463

== ENCOUNTER → 2017-05-02 12:29 | Outpatient (CLI) | payer MEDICAID, SELFPAY ==
--- NOTE | 2017-05-02 12:41 | RAD_ITS ---
STUDY: X-RAY - PELVIS AND RIGHT HIP REASON FOR EXAM: Male, 62 years old. Fall. Right hip pain. TECHNIQUE: Radiological exam, hip, unilateral, with pelvis when performed; 2 or 3 views. COMPARISON: 04/30/2016. FINDINGS: There is a non-specific bowel gas pattern. There is an air-filled defect around the right ischial tuberosity consistent with large decubitus ulcer. There are atherosclerotic vascular calcifications. Normal bilateral iliac wings, sacroiliac joints and visualized sacrum. Normal bilateral superior and inferior pubic rami. Normal pubic symphysis. Normal bilateral ischial tuberosities. There are osteoarthritic changes of the femoral head with marginal osteophyte formation. Sclerotic acetabulum. There is moderate articular joint space narrowing of the hip. RAD/Hip 2-3 Views with Pelvis IMPRESSION: No acute fracture or dislocation. Electronically Signed: Rich Irby MD at 11:17 EST , Service support ,
== END ==
PROVIDERS: Family Provider Internal Medicine; PCP Internal Medicine; Visit Provider Surgery
DX: M25.551 Pain in right hip (principal); Z91.81 History of falling
CPT/HCPCS: 73502

== ENCOUNTER 2017-05-10 10:00 | Outpatient (RCR) | payer MEDICAID, SELFPAY ==
[2017-04-11 10:27] VITALS: BP 142/74
[2017-04-12 10:41] VITALS: BP 151/94
[2017-04-13 00:49] VITALS: PULSE 77; RESP 16; TEMP 36.7
[2017-04-13 10:30] VITALS: BP 138/81; BP 145/86; PULSE 74; PULSE 79; RESP 16; TEMP 36.8; TEMP 36.9
--- NOTE | 2017-04-13 15:09 | HBO.PN.PCM_ITS ---
History of Present Illness Date of Service: 04/13/17 Presenting Chief Complaint: Nonhealing radiation pressure sore abscess ulcer right gluteal/ischial area, Stage IV, with 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 BRYN TROTTER is a 62 year old currently undergoing hyperbaric oxygen therapy for Nonhealing radiation pressure sore abscess ulcer right gluteal/ ischial area, Stage IV, with 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 Progress: Patient is tolerating hyperbaric oxygen therapy well so far. Tolerance of hyperbaric oxygen therapy: Hyperbaric oxygen therapy was administered as per the facility's protocol. The patient tolerated hyperbaric oxygen therapy well without complications or complaints. Upon emergence from the hyperbaric chamber, the patient's vital signs remained stable. He was discharged in good condition. Past Medical History Chronic Problems Anal cancer (Chronic) Hepatitis C carrier (Chronic) COPD (chronic obstructive pulmonary disease) (Chronic) Anxiety and depression (Chronic) HTN (hypertension) (Chronic) HLD (hyperlipidemia) (Chronic) GERD (gastroesophageal reflux disease) (Chronic) PAD (peripheral artery disease) (Chronic) Allergies/Adverse Reactions: Allergies povidone-iodine [From Betadine] Allergy (Verified 01/30/17 10:32) Hives Vdejagt-Cdp-Sth Reductase Inhibitor Adverse Reaction (Verified 01/30/17 10:32) MESSED MY LIVER UP adhesive tape Allergy (Uncoded 12/29/16 14:53) Itching/rash Home Medications: Ambulatory Orders Medication Instructions Recorded RX: Albuterol Inhaler [Ventolin 2 puff INHALATION Q4H PRN PRN 03/22/16 Hfa] RX: Aspirin [Aspirin, Baby] 81 mg PO DAILY@0800 03/22/16 RX: BuPROPion (XL) [Wellbutrin Xl] 300 mg PO DAILY 03/22/16 RX: BusPIRone [Buspar] 5 mg PO TID 03/22/16 RX: Escitalopram Oxalate [Lexapro] 10 mg PO QHS 03/22/16 RX: Ezetimibe [Zetia] 10 mg PO QHS 03/22/16 RX: Fluticasone 0.05% [Flonase 2 spray NASAL BID 03/22/16 Nasal [place]] RX: Multivitamin [Multiple 1 each PO DAILY 03/22/16 Vitamins] RX: Omeprazole [Prilosec] 40 mg PO QHS 03/22/16 RX: Tiotropium [place] [Spiriva 2 puff INHALATION DAILY 10/20/16 Respimat] RX: Cholecalciferol (Vitamin D3) 1,000 unit PO DAILY 12/09/16 [Vitamin D3] RX: Tizanidine HCl [Zanaflex] 4 mg PO Q6H PRN PRN 12/27/16 RX: Dicyclomine HCl [Bentyl] 10 mg PO TIDAC capsule 01/04/17 RX: Metoprolol Tartrate 25 mg PO BID #60 tablet 01/04/17 RX: Nutritional Supplement [[place] 1 packet PO BIDCM packet 01/04/17 - [place]] RX: Acetaminophen [Tylenol Tablet] 650 mg PO Q6H PRN PRN tablet 01/13/17 RX: Cefepime HCl [Maxipime] 2 gm IV Q8 vial 01/13/17 RX: Fentanyl [Duragesic] 25 mcg TRANSDERM. Q3D #3 patch 01/13/17 RX: Gabapentin [Neurontin] 800 mg PO TIDCM tablet 01/13/17 RX: Guaifenesin Dm [Robitussin Dm] 10 ml PO Q4H PRN PRN udc 01/13/17 RX: Ibuprofen [Motrin] 800 mg PO TID PRN PRN tablet 01/13/17 RX: Metronidazole [Flagyl] 500 mg PO TID #1 tablet 01/13/17 RX: Oxycodone [Oxyir] 10 mg PO Q4H PRN PRN #30 tablet 01/13/17 Maternal Family History: No pertinent history Paternal Family History: No pertinent history Smoking Status: Former smoker Physical Exam Vital Signs Temp Pulse Resp BP 98.2 F 74 16 138/81 H 04/13/17 10:30 04/13/17 10:30 04/13/17 10:30 04/13/17 10:30 General: Alert, Oriented x3, Cooperative, No apparent distress HEENT: Atraumatic, Normocephalic, TM's Clear Lungs: Normal air movement Cardiovascular: Regular rate Psych/Mental Status: Normal Affect Assessment/Plan The patient appears to be tolerating hyperbaric oxygen therapy well which would be continued as per the patient's medical plan.
[2017-04-14 10:46] VITALS: BP 133/78; BP 161/87; PULSE 70; PULSE 74; RESP 16; TEMP 36.7
--- NOTE | 2017-04-14 12:07 | PCM.HBO.PN ---
History of Present Illness Date of Service: 04/14/17 Presenting Chief Complaint: Nonhealing radiation pressure sore abscess ulcer right gluteal/ischial area, Stage IV, with 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 BRYN TROTTER is a 62 year old currently undergoing hyperbaric oxygen therapy for Nonhealing radiation pressure sore abscess ulcer right gluteal/ischial area, Stage IV, with 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 Progress: Patient is tolerating hyperbaric oxygen therapy well so far. Tolerance of hyperbaric oxygen therapy: Hyperbaric oxygen therapy was administered as per the facility's protocol. The patient tolerated hyperbaric oxygen therapy well without complications or complaints. Upon emergence from the hyperbaric chamber, the patient's vital signs remained stable. He was discharged in good condition. Past Medical History Chronic Problems Anal cancer (Chronic) Hepatitis C carrier (Chronic) COPD (chronic obstructive pulmonary disease) (Chronic) Anxiety and depression (Chronic) HTN (hypertension) (Chronic) HLD (hyperlipidemia) (Chronic) GERD (gastroesophageal reflux disease) (Chronic) PAD (peripheral artery disease) (Chronic) Allergies/Adverse Reactions: Allergies povidone-iodine [From Betadine] Allergy (Verified 01/30/17 10:32) Hives Fspkuhe-Gje-Irp Reductase Inhibitor Adverse Reaction (Verified 01/30/17 10:32) MESSED MY LIVER UP adhesive tape Allergy (Uncoded 12/29/16 14:53) Itching/rash Home Medications: Ambulatory Orders Medication Instructions Recorded Albuterol Inhaler [Ventolin Hfa] 2 puff INHALATION Q4H PRN PRN 03/22/16 Aspirin [Aspirin, Baby] 81 mg PO DAILY@0800 03/22/16 BuPROPion (XL) [Wellbutrin Xl] 300 mg PO DAILY 03/22/16 BusPIRone [Buspar] 5 mg PO TID 03/22/16 Escitalopram Oxalate [Lexapro] 10 mg PO QHS 03/22/16 Ezetimibe [Zetia] 10 mg PO QHS 03/22/16 Fluticasone 0.05% [Flonase Nasal 2 spray NASAL BID 03/22/16 [place]] Multivitamin [Multiple Vitamins] 1 each PO DAILY 03/22/16 Omeprazole [Prilosec] 40 mg PO QHS 03/22/16 Tiotropium [place] [Spiriva 2 puff INHALATION DAILY 10/20/16 Respimat] Cholecalciferol (Vitamin D3) 1,000 unit PO DAILY 12/09/16 [Vitamin D3] Tizanidine HCl [Zanaflex] 4 mg PO Q6H PRN PRN 12/27/16 Dicyclomine HCl [Bentyl] 10 mg PO TIDAC capsule 01/04/17 Metoprolol Tartrate 25 mg PO BID #60 tablet 01/04/17 Nutritional Supplement [[place]uy - 1 packet PO BIDCM packet 01/04/17 [place]] Acetaminophen [Tylenol Tablet] 650 mg PO Q6H PRN PRN tablet 01/13/17 Cefepime HCl [Maxipime] 2 gm IV Q8 vial 01/13/17 Fentanyl [Duragesic] 25 mcg TRANSDERM. Q3D #3 patch 01/13/17 Gabapentin [Neurontin] 800 mg PO TIDCM tablet 01/13/17 Guaifenesin Dm [Robitussin Dm] 10 ml PO Q4H PRN PRN udc 01/13/17 Ibuprofen [Motrin] 800 mg PO TID PRN PRN tablet 01/13/17 Metronidazole [Flagyl] 500 mg PO TID #1 tablet 01/13/17 Oxycodone [Oxyir] 10 mg PO Q4H PRN PRN #30 tablet 01/13/17 Maternal Family History: No pertinent history Paternal Family History: No pertinent history Smoking Status: Former smoker Physical Exam Vital Signs Temp Pulse Resp BP 98.0 F 70 16 161/87 H 04/14/17 10:46 04/14/17 10:46 04/14/17 10:46 04/14/17 10:46 Assessment/Plan The patient appears to be tolerating hyperbaric oxygen therapy well which would be continued as per the patient's medical plan.
[2017-04-17 10:42] VITALS: BP 136/88; BP 147/85; PULSE 71; PULSE 73; RESP 16; TEMP 36.4; TEMP 36.8
[2017-04-18 09:38] VITALS: BP 137/72; BP 149/89; PULSE 77; PULSE 78; RESP 16; TEMP 36.8
--- NOTE | 2017-04-18 11:48 | PCM.HBO.PN ---
History of Present Illness Date of Service: 04/18/17 Presenting Chief Complaint: Nonhealing radiation pressure ulcer, abscess ulcer right gluteal/ischial area, Stage IV, with 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 BRYN TROTTER is a 62 year old currently undergoing hyperbaric oxygen therapy for Nonhealing radiation pressure ulcer/abscess right gluteal/ischial area, Stage IV, with 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 Progress: Patient is tolerating hyperbaric oxygen therapy well so far. Tolerance of hyperbaric oxygen therapy: Hyperbaric oxygen therapy was administered as per the facility's protocol. Today represents the 12th such hyperbaric oxygen therapy session. The patient tolerated hyperbaric oxygen therapy well without complications or complaints. Upon emergence from the hyperbaric chamber, the patient's vital signs remained stable. He was discharged in good condition. Past Medical History Chronic Problems Anal cancer (Chronic) Hepatitis C carrier (Chronic) COPD (chronic obstructive pulmonary disease) (Chronic) Anxiety and depression (Chronic) HTN (hypertension) (Chronic) HLD (hyperlipidemia) (Chronic) GERD (gastroesophageal reflux disease) (Chronic) PAD (peripheral artery disease) (Chronic) Allergies/Adverse Reactions: Allergies povidone-iodine [From Betadine] Allergy (Verified 01/30/17 10:32) Hives Gvrqimc-Lko-Xvz Reductase Inhibitor Adverse Reaction (Verified 01/30/17 10:32) MESSED MY LIVER UP adhesive tape Allergy (Uncoded 12/29/16 14:53) Itching/rash Home Medications: Ambulatory Orders Medication Instructions Recorded Albuterol Inhaler [Ventolin Hfa] 2 puff INHALATION Q4H PRN PRN 03/22/16 Aspirin [Aspirin, Baby] 81 mg PO DAILY@0800 03/22/16 BuPROPion (XL) [Wellbutrin Xl] 300 mg PO DAILY 03/22/16 BusPIRone [Buspar] 5 mg PO TID 03/22/16 Escitalopram Oxalate [Lexapro] 10 mg PO QHS 03/22/16 Ezetimibe [Zetia] 10 mg PO QHS 03/22/16 Fluticasone 0.05% [Flonase Nasal 2 spray NASAL BID 03/22/16 [place]] Multivitamin [Multiple Vitamins] 1 each PO DAILY 03/22/16 Omeprazole [Prilosec] 40 mg PO QHS 03/22/16 Tiotropium [place] [Spiriva 2 puff INHALATION DAILY 10/20/16 Respimat] Cholecalciferol (Vitamin D3) 1,000 unit PO DAILY 12/09/16 [Vitamin D3] Tizanidine HCl [Zanaflex] 4 mg PO Q6H PRN PRN 12/27/16 Dicyclomine HCl [Bentyl] 10 mg PO TIDAC capsule 01/04/17 Metoprolol Tartrate 25 mg PO BID #60 tablet 01/04/17 Nutritional Supplement [Chuy - 1 packet PO BIDCM packet 01/04/17 [place]] Acetaminophen [Tylenol Tablet] 650 mg PO Q6H PRN PRN tablet 01/13/17 Cefepime HCl [Maxipime] 2 gm IV Q8 vial 01/13/17 Fentanyl [Duragesic] 25 mcg TRANSDERM. Q3D #3 patch 01/13/17 Gabapentin [Neurontin] 800 mg PO TIDCM tablet 01/13/17 Guaifenesin Dm [Robitussin Dm] 10 ml PO Q4H PRN PRN udc 01/13/17 Ibuprofen [Motrin] 800 mg PO TID PRN PRN tablet 01/13/17 Metronidazole [Flagyl] 500 mg PO TID #1 tablet 01/13/17 Oxycodone [Oxyir] 10 mg PO Q4H PRN PRN #30 tablet 01/13/17 Maternal Family History: No pertinent history Paternal Family History: No pertinent history Smoking Status: Former smoker Physical Exam Vital Signs Temp Pulse Resp BP 98.2 F 77 16 137/72 H 04/18/17 09:38 04/18/17 09:38 04/18/17 09:38 04/18/17 09:38 General: Alert, Oriented x3, Cooperative, No apparent distress, Well developed, Well nourished HEENT: Atraumatic, PERRLA, EOMI, Normocephalic Lungs: Normal air movement Psych/Mental Status: Normal Affect, Appropriate, Alert and oriented to time, place, person, mood and affect Assessment/Plan Patient appears to be tolerating hyperbaric oxygen therapy well, which will be continued as per the patient's medical plan.
[2017-04-19 10:50] VITALS: BP 137/59; BP 137/73; PULSE 74; PULSE 76; RESP 16; RESP 18; TEMP 36.7; TEMP 37.3
--- NOTE | 2017-04-19 17:49 | PCM.HBO.PN ---
History of Present Illness Date of Service: 04/19/17 Presenting Chief Complaint: Nonhealing radiation pressure ulcer, abscess ulcer right gluteal/ischial area, Stage IV, with 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 BRYN TROTTER is a 62 year old currently undergoing hyperbaric oxygen therapy for Nonhealing radiation pressure ulcer/abscess of his right gluteal/ischial area, Stage IV, with 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 Progress: Patient is tolerating hyperbaric oxygen therapy well so far. Tolerance of hyperbaric oxygen therapy: Hyperbaric oxygen therapy was administered as per the facility's protocol. The patient tolerated hyperbaric oxygen therapy well without complications or complaints. Upon emergence from the hyperbaric chamber, the patient's vital signs remained stable. He was discharged in good condition. Past Medical History Chronic Problems Anal cancer (Chronic) Hepatitis C carrier (Chronic) COPD (chronic obstructive pulmonary disease) (Chronic) Anxiety and depression (Chronic) HTN (hypertension) (Chronic) HLD (hyperlipidemia) (Chronic) GERD (gastroesophageal reflux disease) (Chronic) PAD (peripheral artery disease) (Chronic) Allergies/Adverse Reactions: Allergies povidone-iodine [From Betadine] Allergy (Verified 01/30/17 10:32) Hives Sbfzvhz-Lol-Owe Reductase Inhibitor Adverse Reaction (Verified 01/30/17 10:32) MESSED MY LIVER UP adhesive tape Allergy (Uncoded 12/29/16 14:53) Itching/rash Home Medications: Ambulatory Orders Medication Instructions Recorded Albuterol Inhaler [Ventolin Hfa] 2 puff INHALATION Q4H PRN PRN 03/22/16 Aspirin [Aspirin, Baby] 81 mg PO DAILY@0800 03/22/16 BuPROPion (XL) [Wellbutrin Xl] 300 mg PO DAILY 03/22/16 BusPIRone [Buspar] 5 mg PO TID 03/22/16 Escitalopram Oxalate [Lexapro] 10 mg PO QHS 03/22/16 Ezetimibe [Zetia] 10 mg PO QHS 03/22/16 Fluticasone 0.05% [Flonase Nasal 2 spray NASAL BID 03/22/16 [place]] Multivitamin [Multiple Vitamins] 1 each PO DAILY 03/22/16 Omeprazole [Prilosec] 40 mg PO QHS 03/22/16 Tiotropium [place] [Spiriva 2 puff INHALATION DAILY 10/20/16 Respimat] Cholecalciferol (Vitamin D3) 1,000 unit PO DAILY 12/09/16 [Vitamin D3] Tizanidine HCl [Zanaflex] 4 mg PO Q6H PRN PRN 12/27/16 Dicyclomine HCl [Bentyl] 10 mg PO TIDAC capsule 01/04/17 Metoprolol Tartrate 25 mg PO BID #60 tablet 01/04/17 Nutritional Supplement [Chuy - 1 packet PO BIDCM packet 01/04/17 [place]] Acetaminophen [Tylenol Tablet] 650 mg PO Q6H PRN PRN tablet 01/13/17 Cefepime HCl [Maxipime] 2 gm IV Q8 vial 01/13/17 Fentanyl [Duragesic] 25 mcg TRANSDERM. Q3D #3 patch 01/13/17 Gabapentin [Neurontin] 800 mg PO TIDCM tablet 01/13/17 Guaifenesin Dm [Robitussin Dm] 10 ml PO Q4H PRN PRN udc 01/13/17 Ibuprofen [Motrin] 800 mg PO TID PRN PRN tablet 01/13/17 Metronidazole [Flagyl] 500 mg PO TID #1 tablet 01/13/17 Oxycodone [Oxyir] 10 mg PO Q4H PRN PRN #30 tablet 01/13/17 Maternal Family History: No pertinent history Paternal Family History: No pertinent history Smoking Status: Former smoker Physical Exam Vital Signs Temp Pulse Resp BP 98.0 F 76 18 137/59 H 04/19/17 10:50 04/19/17 10:50 04/19/17 10:50 04/19/17 10:50 General: Alert, Oriented x3, Cooperative, No apparent distress HEENT: Atraumatic, Normocephalic, TM's Clear Lungs: Normal air movement Cardiovascular: Regular rate Psych/Mental Status: Normal Affect Assessment/Plan Patient appears to be tolerating hyperbaric oxygen therapy well, which will be continued as per the patient's medical plan.
[2017-04-20 10:22] VITALS: BP 141/88; BP 160/89; PULSE 67; RESP 16; TEMP 36.6
--- NOTE | 2017-04-20 18:25 | PCM.HBO.PN ---
History of Present Illness Date of Service: 04/20/17 Presenting Chief Complaint: Nonhealing radiation pressure ulcer, abscess ulcer right gluteal/ischial area, Stage IV, with 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 BRYN TROTTER is a 62 year old currently undergoing hyperbaric oxygen therapy for Nonhealing radiation pressure ulcer/abscess of his right gluteal/ischial area, Stage IV, with 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 Progress: Patient is tolerating hyperbaric oxygen therapy well so far. Tolerance of hyperbaric oxygen therapy: Hyperbaric oxygen therapy was administered as per the facility's protocol. The patient tolerated hyperbaric oxygen therapy well without complications or complaints. Upon emergence from the hyperbaric chamber, the patient's vital signs remained stable. He was discharged in good condition. Past Medical History Chronic Problems Anal cancer (Chronic) Hepatitis C carrier (Chronic) COPD (chronic obstructive pulmonary disease) (Chronic) Anxiety and depression (Chronic) HTN (hypertension) (Chronic) HLD (hyperlipidemia) (Chronic) GERD (gastroesophageal reflux disease) (Chronic) PAD (peripheral artery disease) (Chronic) Allergies/Adverse Reactions: Allergies povidone-iodine [From Betadine] Allergy (Verified 01/30/17 10:32) Hives Qbrlufq-Frm-Tjr Reductase Inhibitor Adverse Reaction (Verified 01/30/17 10:32) MESSED MY LIVER UP adhesive tape Allergy (Uncoded 12/29/16 14:53) Itching/rash Home Medications: Ambulatory Orders Medication Instructions Recorded Albuterol Inhaler [Ventolin Hfa] 2 puff INHALATION Q4H PRN PRN 03/22/16 Aspirin [Aspirin, Baby] 81 mg PO DAILY@0800 03/22/16 BuPROPion (XL) [Wellbutrin Xl] 300 mg PO DAILY 03/22/16 BusPIRone [Buspar] 5 mg PO TID 03/22/16 Escitalopram Oxalate [Lexapro] 10 mg PO QHS 03/22/16 Ezetimibe [Zetia] 10 mg PO QHS 03/22/16 Fluticasone 0.05% [Flonase Nasal 2 spray NASAL BID 03/22/16 [place]] Multivitamin [Multiple Vitamins] 1 each PO DAILY 03/22/16 Omeprazole [Prilosec] 40 mg PO QHS 03/22/16 Tiotropium [place] [Spiriva 2 puff INHALATION DAILY 10/20/16 Respimat] Cholecalciferol (Vitamin D3) 1,000 unit PO DAILY 12/09/16 [Vitamin D3] Tizanidine HCl [Zanaflex] 4 mg PO Q6H PRN PRN 12/27/16 Dicyclomine HCl [Bentyl] 10 mg PO TIDAC capsule 01/04/17 Metoprolol Tartrate 25 mg PO BID #60 tablet 01/04/17 Nutritional Supplement [Chuy - 1 packet PO BIDCM packet 01/04/17 [place]] Acetaminophen [Tylenol Tablet] 650 mg PO Q6H PRN PRN tablet 01/13/17 Cefepime HCl [Maxipime] 2 gm IV Q8 vial 01/13/17 Fentanyl [Duragesic] 25 mcg TRANSDERM. Q3D #3 patch 01/13/17 Gabapentin [Neurontin] 800 mg PO TIDCM tablet 01/13/17 Guaifenesin Dm [Robitussin Dm] 10 ml PO Q4H PRN PRN udc 01/13/17 Ibuprofen [Motrin] 800 mg PO TID PRN PRN tablet 01/13/17 Metronidazole [Flagyl] 500 mg PO TID #1 tablet 01/13/17 Oxycodone [Oxyir] 10 mg PO Q4H PRN PRN #30 tablet 01/13/17 Maternal Family History: No pertinent history Paternal Family History: No pertinent history Smoking Status: Former smoker Physical Exam Vital Signs Temp Pulse Resp BP 98 F 67 16 160/89 H 04/20/17 10:22 04/20/17 10:22 04/20/17 10:22 04/20/17 10:22 General: Alert, Oriented x3, Cooperative, No apparent distress HEENT: Atraumatic, Normocephalic, TM's Clear Lungs: Normal air movement Cardiovascular: Regular rate Psych/Mental Status: Normal Affect Assessment/Plan Patient appears to be tolerating hyperbaric oxygen therapy well, which will be continued as per the patient's medical plan.
[2017-04-21 10:40] VITALS: BP 126/71; BP 146/81; PULSE 69; PULSE 72; RESP 16; TEMP 36.7; TEMP 37
--- NOTE | 2017-04-21 12:02 | HBO.PN.PCM_ITS ---
History of Present Illness Date of Service: 04/21/17 Presenting Chief Complaint: Nonhealing radiation pressure ulcer, abscess ulcer right gluteal/ischial area, Stage IV, with 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 BRYN TROTTER is a 62 year old currently undergoing hyperbaric oxygen therapy for Nonhealing radiation pressure ulcer/abscess of his right gluteal/ ischial area, Stage IV, with 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 Progress: Patient is tolerating hyperbaric oxygen therapy well so far. Tolerance of hyperbaric oxygen therapy: Hyperbaric oxygen therapy was administered as per the facility's protocol. The patient tolerated hyperbaric oxygen therapy well without complications or complaints. Upon emergence from the hyperbaric chamber, the patient's vital signs remained stable. He was discharged in good condition. Past Medical History Chronic Problems Anal cancer (Chronic) Hepatitis C carrier (Chronic) COPD (chronic obstructive pulmonary disease) (Chronic) Anxiety and depression (Chronic) HTN (hypertension) (Chronic) HLD (hyperlipidemia) (Chronic) GERD (gastroesophageal reflux disease) (Chronic) PAD (peripheral artery disease) (Chronic) Allergies/Adverse Reactions: Allergies povidone-iodine [From Betadine] Allergy (Verified 01/30/17 10:32) Hives Rgnnejg-Ogv-Tzf Reductase Inhibitor Adverse Reaction (Verified 01/30/17 10:32) MESSED MY LIVER UP adhesive tape Allergy (Uncoded 12/29/16 14:53) Itching/rash Home Medications: Ambulatory Orders Medication Instructions Recorded Albuterol Inhaler [Ventolin Hfa] 2 puff INHALATION Q4H PRN PRN 03/22/16 Aspirin [Aspirin, Baby] 81 mg PO DAILY@0800 03/22/16 BuPROPion (XL) [Wellbutrin Xl] 300 mg PO DAILY 03/22/16 BusPIRone [Buspar] 5 mg PO TID 03/22/16 Escitalopram Oxalate [Lexapro] 10 mg PO QHS 03/22/16 Ezetimibe [Zetia] 10 mg PO QHS 03/22/16 Fluticasone 0.05% [Flonase Nasal 2 spray NASAL BID 03/22/16 [place]] Multivitamin [Multiple Vitamins] 1 each PO DAILY 03/22/16 Omeprazole [Prilosec] 40 mg PO QHS 03/22/16 Tiotropium [place] [Spiriva 2 puff INHALATION DAILY 10/20/16 Respimat] Cholecalciferol (Vitamin D3) 1,000 unit PO DAILY 12/09/16 [Vitamin D3] Tizanidine HCl [Zanaflex] 4 mg PO Q6H PRN PRN 12/27/16 Dicyclomine HCl [Bentyl] 10 mg PO TIDAC capsule 01/04/17 Metoprolol Tartrate 25 mg PO BID #60 tablet 01/04/17 Nutritional Supplement [Chuy - 1 packet PO BIDCM packet 01/04/17 [place]] Acetaminophen [Tylenol Tablet] 650 mg PO Q6H PRN PRN tablet 01/13/17 Cefepime HCl [Maxipime] 2 gm IV Q8 vial 01/13/17 Fentanyl [Duragesic] 25 mcg TRANSDERM. Q3D #3 patch 01/13/17 Gabapentin [Neurontin] 800 mg PO TIDCM tablet 01/13/17 Guaifenesin Dm [Robitussin Dm] 10 ml PO Q4H PRN PRN udc 01/13/17 Ibuprofen [Motrin] 800 mg PO TID PRN PRN tablet 01/13/17 Metronidazole [Flagyl] 500 mg PO TID #1 tablet 01/13/17 Oxycodone [Oxyir] 10 mg PO Q4H PRN PRN #30 tablet 01/13/17 Maternal Family History: No pertinent history Paternal Family History: No pertinent history Smoking Status: Former smoker Physical Exam Vital Signs Temp Pulse Resp BP 98.6 F 69 16 126/71 H 04/21/17 10:40 04/21/17 10:40 04/21/17 10:40 04/21/17 10:40 Assessment/Plan Patient appears to be tolerating hyperbaric oxygen therapy well, which will be continued as per the patient's medical plan.
[2017-04-24 10:20] VITALS: BP 134/74; BP 153/98; PULSE 71; RESP 16; TEMP 36.6; TEMP 36.8
[2017-04-24 12:16] VITALS: BP 153/98; PULSE 71; RESP 16; TEMP 36.6
--- NOTE | 2017-04-24 16:41 | PCM.WC.PN ---
Type of Wound Date of Service: 04/24/17 Chief Complaint: Nonhealing radiation pressure ulcer, abscess ulcer right gluteal/ischial area, Stage IV, with 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 History of Wound: Surgery 12/30/16 - Surgical preparation right gluteal/ischial area with excision radiation pressure sore abscess wound and partial ostectomy for osteomyelitis (52.5 cm2). Wound care - Silver. There was trouble maintaining a VAC seal initially and had trouble getting it approved. Operative culture - Soft tissue, Staphylococcus aureus, Bacteroides fragilis, Anaerobic cocci. Bone, Bacteroides fragilis, Anaerobic cocci, and Fusarium species. Had another culture on 01/07/17 which showed Pseudomonas aeroginosa and presumptive Genna. He was placed on half-way Cefepime IV and Flagyl po until 02/20/17. He is finished with the Cefepime and Flagyl. There was a recent culture from the ECF. It showed MRSA and C. albicans. He was started on Doxycylcine and Diflucan. Pathology - negative for osteomyelitis but rare neutrophils were present. Prealbumin from 12/30/16 was 9.8. He takes nutritional supplementation with protein to help the healing process. CT Pelvis from 12/29/16 showed evidence of abscess. This ulcer is based on anal cancer from 2002 that necessitated radiation therapy and chemotherapy. Today he denies fever. He does have pain in his right gluteal/ischial area. His appetite is ok. He has been discharged from the ECF. His HBO treatments for soft tissue radionecrosis have been started. He is tolerating them thus far. Progress of Wound: Minimal improvement. - Physical Exam Vital Signs Temp Pulse Resp BP 97.8 F 71 16 153/98 H 04/24/17 12:16 04/24/17 12:16 04/24/17 12:16 04/24/17 12:16 Wound Measurements and Assessment WC - Nurse 1 - General Ulcer Measurement Start: 04/13/17 12:20 Freq: Status: Active Protocol: Activity Type Activity Date Activity User E-Sign Co-Sign Detail Recorded Client Recorded Date Recorded By Document 04/24/17 12:16 DL [id number] 04/24/17 12:17 DL 04/24/17 12:16 Wound Center Nurse 1 [Ulcer Assessment Protocol: WC.WD.LOC] #1 R Ischial -Current Size (cm) - Length 7.8 -Current Size (cm) - Width 4.5 -Current Size (cm) - Depth 3 -Total Square Cm 35.10 -Photo Taken Yes -Exudate Amt Medium (34-66%) -Exudate Type Serosanguineous -Wound Margin Thickened & Rolled Under -Granulation Amt Medium (34-66%) -Granulation Quality [place] -Necrosis Amt Medium (34-66%) -Necrotic Tissue Type Adherent Slough -Structure Exposed Muscle -Texture (Nathalie-wound Skin Appearance) No Abnormality -Moisture (Nathalie-wound Skin Appearance No Abnormality ) -Color (Nathalie-wound Skin Appearance) No Abnormality -Temperature (Nathalie-wound Skin No Abnormality Appearance) (Pt Warm) -Ulcer Cleansing Rinsed/ Irrigated with Saline -Foul Odor after Cleansing No -Anesthetic Used 4% Lidocaine Solution - Nurse 2 - General Ulcer CM Notes Start: 04/13/17 12:20 Freq: Status: Active Protocol: Activity Type Activity Date Activity User E-Sign Co-Sign Detail Recorded Client Recorded Date Recorded By Document 04/24/17 12:30 [id number] 04/24/17 12:32 04/24/17 12:30 Wound Center Nurse 2 [Procedure/Treatment] -Time 12:31 -Correct Patient Yes -Correct Side, Site, Position Yes -Correct Procedure Yes -Procedure Performed Yes -Type of Procedure Debridement -Clinical Debridement Muscle -Post Debridement Size (cm) - Length 7.5 -Post Debridement Size (cm) - Width 4.6 -Post Debridement Size (cm) - Depth 3.0 -Total Square Cm 34.50 -Wound/Ulcer Outcome Not Healed -Ulcer Cleansing Rinsed/ Irrigated with Saline -Foul Odor after Cleansing No -Bioengineered Tissue No -Bleeding Controlled with Pressure -Treatment Response Procedure Tolerated Well [See Physician Procedure note for Specifics] Pain Scale: 0-10 Numeric [Pain] -Is Patient Pain Free? Yes Debridement Note Post-Debridement Measurements/Treatment - Nurse 2 - General Ulcer CM Notes Start: 04/13/17 12:20 Freq: Status: Active Protocol: Activity Type Activity Date Activity User E-Sign Co-Sign Detail Recorded Client Recorded Date Recorded By Document 04/24/17 12:30 [id number] 04/24/17 12:32 04/24/17 12:30 Wound Center Nurse 2 #1 R Ischial -Time 12:31 -Correct Patient Yes -Correct Side, Site, Position Yes -Correct Procedure Yes -Procedure Performed Yes -Type of Procedure Debridement -Clinical Debridement Muscle -Post Debridement Size (cm) - Length 7.5 -Post Debridement Size (cm) - Width 4.6 -Post Debridement Size (cm) - Depth 3.0 -Total Square Cm 34.50 -Wound/Ulcer Outcome Not Healed -Ulcer Cleansing Rinsed/ Irrigated with Saline -Foul Odor after Cleansing No -Bioengineered Tissue No -Bleeding Controlled with Pressure -Treatment Response Procedure Tolerated Well Pain Scale: 0-10 Numeric Is Patient Pain Free? Yes Wound debrided: #1 Right ischial area. Laterality: Right Wound Grade/Stage: IV. Type of Debridement: Excisional debridement Anesthesia Used: 4% Lidocaine Solution Depth: Down to and including healthy tissue, in the subcutaneous layer, to muscle, to bone - bone is exposed but not debrided. Percentage of wound debrided: 100 Instrument Used: 7mm curette Tissue Removed: subcutaneous tissue and muscle. Severity: Fat Layer Exposed - muscle is exposed. bone is exposed but not debrided. Amount of bleeding with debridement: Mild Bleeding Controlled with: Pressure Patient tolerated procedure well Assessment/Plan Assessment: 1. 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 2. Late effect radiation right gluteal area. 3. History of anal CA treated with chemotherapy and radiation therapy. 4. s/p surgical preparation right gluteal/ischial area with excision radiation pressure sore abscess wound and partial ostectomy for osteomyelitis (52.5 cm2). 5. MRSA. Plan: Continue Silver dressing changes. Some improvement has been seen now that he is getting HBO treatments for his soft tissue radionecrosis which will increase the vascularity of the ulcer and improve healing. He has been discharged from the [facility]. While at the [facility], the VAC was tried again. However had difficulty getting approval for the VAC. He finished the operative Cefepime IV and Flagyl po without difficulty. A recent culture at the [facility] showed MRSA and C. albicans. He is currently on Doxycycline and Diflucan. Prealbumin from 12/30/16 was 9.8. He takes nutritional supplementation with protein to help the healing process. Followup 3 weeks.
--- NOTE | 2017-04-24 16:48 | HBO.PN.PCM_ITS ---
History of Present Illness Date of Service: 04/24/17 Presenting Chief Complaint: Nonhealing radiation pressure ulcer, abscess ulcer right gluteal/ischial area, Stage IV, with 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 BRYN TROTTER is a 62 year old currently undergoing hyperbaric oxygen therapy for nonhealing radiation pressure sore abscess ulcer right gluteal/ ischial area, Stage IV, with 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 Progress: Treatment #16 hyperbaric oxygen therapy. Tolerance of hyperbaric oxygen therapy: Upon emergence from the hyperbaric chamber today, the patient had no complaints or complications. Patient's vital signs have been stable and has been discharged in good condition. Patient is tolerating the hyperbaric oxygen therapy and will continue as prescribed. Past Medical History Chronic Problems Anal cancer (Chronic) Hepatitis C carrier (Chronic) COPD (chronic obstructive pulmonary disease) (Chronic) Anxiety and depression (Chronic) HTN (hypertension) (Chronic) HLD (hyperlipidemia) (Chronic) GERD (gastroesophageal reflux disease) (Chronic) PAD (peripheral artery disease) (Chronic) Allergies/Adverse Reactions: Allergies povidone-iodine [From Betadine] Allergy (Verified 01/30/17 10:32) Hives Kaeksbp-Dhh-Txi Reductase Inhibitor Adverse Reaction (Verified 01/30/17 10:32) MESSED MY LIVER UP adhesive tape Allergy (Uncoded 12/29/16 14:53) Itching/rash Home Medications: Ambulatory Orders Medication Instructions Recorded Albuterol Inhaler [Ventolin Hfa] 2 puff INHALATION Q4H PRN PRN 03/22/16 Aspirin [Aspirin, Baby] 81 mg PO DAILY@0800 03/22/16 BuPROPion (XL) [Wellbutrin Xl] 300 mg PO DAILY 03/22/16 BusPIRone [Buspar] 5 mg PO TID 03/22/16 Escitalopram Oxalate [Lexapro] 10 mg PO QHS 03/22/16 Ezetimibe [Zetia] 10 mg PO QHS 03/22/16 Fluticasone 0.05% [Flonase Nasal 2 spray NASAL BID 03/22/16 [place]] Multivitamin [Multiple Vitamins] 1 each PO DAILY 03/22/16 Omeprazole [Prilosec] 40 mg PO QHS 03/22/16 Tiotropium [place] [Spiriva 2 puff INHALATION DAILY 10/20/16 Respimat] Cholecalciferol (Vitamin D3) 1,000 unit PO DAILY 12/09/16 [Vitamin D3] Tizanidine HCl [Zanaflex] 4 mg PO Q6H PRN PRN 12/27/16 Dicyclomine HCl [Bentyl] 10 mg PO TIDAC capsule 01/04/17 Metoprolol Tartrate 25 mg PO BID #60 tablet 01/04/17 Nutritional Supplement [Chuy - 1 packet PO BIDCM packet 01/04/17 [place]] Acetaminophen [Tylenol Tablet] 650 mg PO Q6H PRN PRN tablet 01/13/17 Cefepime HCl [Maxipime] 2 gm IV Q8 vial 01/13/17 Fentanyl [Duragesic] 25 mcg TRANSDERM. Q3D #3 patch 01/13/17 Gabapentin [Neurontin] 800 mg PO TIDCM tablet 01/13/17 Guaifenesin Dm [Robitussin Dm] 10 ml PO Q4H PRN PRN udc 01/13/17 Ibuprofen [Motrin] 800 mg PO TID PRN PRN tablet 01/13/17 Metronidazole [Flagyl] 500 mg PO TID #1 tablet 01/13/17 Oxycodone [Oxyir] 10 mg PO Q4H PRN PRN #30 tablet 01/13/17 Maternal Family History: No pertinent history Paternal Family History: No pertinent history Smoking Status: Former smoker Physical Exam Vital Signs Temp Pulse Resp BP 97.8 F 71 16 153/98 H 04/24/17 12:16 04/24/17 12:16 04/24/17 12:16 04/24/17 12:16
[2017-04-25 10:31] VITALS: BP 129/68; BP 134/78; PULSE 70; PULSE 76; RESP 16; TEMP 36.6; TEMP 36.9
--- NOTE | 2017-04-25 12:48 | PCM.HBO.PN ---
History of Present Illness Date of Service: 04/25/17 Presenting Chief Complaint: Nonhealing radiation pressure ulcer, abscess ulcer right gluteal/ischial area, Stage IV, with 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 BRYN TROTTER is a 62 year old currently undergoing hyperbaric oxygen therapy for Nonhealing radiation pressure ulcer/abscess of his right gluteal/ischial area, Stage IV, with 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 Progress: Patient is tolerating hyperbaric oxygen therapy well so far. Tolerance of hyperbaric oxygen therapy: Hyperbaric oxygen therapy was administered as per the facility's protocol. The session represents the 17th such hyperbaric oxygen therapy treatment. The patient tolerated hyperbaric oxygen therapy well without complications or complaints. Upon emergence from the hyperbaric chamber, the patient's vital signs remained stable. He was discharged in good condition. Past Medical History Chronic Problems Anal cancer (Chronic) Hepatitis C carrier (Chronic) COPD (chronic obstructive pulmonary disease) (Chronic) Anxiety and depression (Chronic) HTN (hypertension) (Chronic) HLD (hyperlipidemia) (Chronic) GERD (gastroesophageal reflux disease) (Chronic) PAD (peripheral artery disease) (Chronic) Allergies/Adverse Reactions: Allergies povidone-iodine [From Betadine] Allergy (Verified 01/30/17 10:32) Hives Ucmdici-Izj-Hov Reductase Inhibitor Adverse Reaction (Verified 01/30/17 10:32) MESSED MY LIVER UP adhesive tape Allergy (Uncoded 12/29/16 14:53) Itching/rash Home Medications: Ambulatory Orders Medication Instructions Recorded Albuterol Inhaler [Ventolin Hfa] 2 puff INHALATION Q4H PRN PRN 03/22/16 Aspirin [Aspirin, Baby] 81 mg PO DAILY@0800 03/22/16 BuPROPion (XL) [Wellbutrin Xl] 300 mg PO DAILY 03/22/16 BusPIRone [Buspar] 5 mg PO TID 03/22/16 Escitalopram Oxalate [Lexapro] 10 mg PO QHS 03/22/16 Ezetimibe [Zetia] 10 mg PO QHS 03/22/16 Fluticasone 0.05% [Flonase Nasal 2 spray NASAL BID 03/22/16 [place]] Multivitamin [Multiple Vitamins] 1 each PO DAILY 03/22/16 Omeprazole [Prilosec] 40 mg PO QHS 03/22/16 Tiotropium [place] [Spiriva 2 puff INHALATION DAILY 10/20/16 Respimat] Cholecalciferol (Vitamin D3) 1,000 unit PO DAILY 12/09/16 [Vitamin D3] Tizanidine HCl [Zanaflex] 4 mg PO Q6H PRN PRN 12/27/16 Dicyclomine HCl [Bentyl] 10 mg PO TIDAC capsule 01/04/17 Metoprolol Tartrate 25 mg PO BID #60 tablet 01/04/17 Nutritional Supplement [Chuy - 1 packet PO BIDCM packet 01/04/17 [place]] Acetaminophen [Tylenol Tablet] 650 mg PO Q6H PRN PRN tablet 01/13/17 Cefepime HCl [Maxipime] 2 gm IV Q8 vial 01/13/17 Fentanyl [Duragesic] 25 mcg TRANSDERM. Q3D #3 patch 01/13/17 Gabapentin [Neurontin] 800 mg PO TIDCM tablet 01/13/17 Guaifenesin Dm [Robitussin Dm] 10 ml PO Q4H PRN PRN udc 01/13/17 Ibuprofen [Motrin] 800 mg PO TID PRN PRN tablet 01/13/17 Metronidazole [Flagyl] 500 mg PO TID #1 tablet 01/13/17 Oxycodone [Oxyir] 10 mg PO Q4H PRN PRN #30 tablet 01/13/17 Maternal Family History: No pertinent history Paternal Family History: No pertinent history Smoking Status: Former smoker Physical Exam Vital Signs Temp Pulse Resp BP 98.4 F 70 16 129/68 H 04/25/17 10:31 04/25/17 10:31 04/25/17 10:31 04/25/17 10:31 General: Alert, Oriented x3, Cooperative, No apparent distress, Well developed, Well nourished HEENT: Atraumatic, PERRLA, EOMI, Normocephalic Lungs: Normal air movement Psych/Mental Status: Normal Affect, Appropriate, Alert and oriented to time, place, person, mood and affect Assessment/Plan The patient appears to be tolerating hyperbaric oxygen therapy well, which will be continued as per the patient's medical plan.
[2017-04-26 10:23] VITALS: BP 111/64; BP 155/74; PULSE 69; PULSE 71; RESP 16; TEMP 36.6; TEMP 36.8
--- NOTE | 2017-04-26 10:59 | HBO.PN.PCM_ITS ---
History of Present Illness Date of Service: 04/26/17 Presenting Chief Complaint: Nonhealing radiation pressure ulcer, abscess ulcer right gluteal/ischial area, Stage IV, with 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 BRYN TROTTER is a 62 year old currently undergoing hyperbaric oxygen therapy for Nonhealing radiation pressure ulcer/abscess of his right gluteal/ ischial area, Stage IV, with 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 Progress: Patient is tolerating hyperbaric oxygen therapy well so far. Tolerance of hyperbaric oxygen therapy: Hyperbaric oxygen therapy was administered as per the facility's protocol. The patient tolerated hyperbaric oxygen therapy well without complications or complaints. Upon emergence from the hyperbaric chamber, the patient's vital signs remained stable. He was discharged in good condition. Past Medical History Chronic Problems Anal cancer (Chronic) Hepatitis C carrier (Chronic) COPD (chronic obstructive pulmonary disease) (Chronic) Anxiety and depression (Chronic) HTN (hypertension) (Chronic) HLD (hyperlipidemia) (Chronic) GERD (gastroesophageal reflux disease) (Chronic) PAD (peripheral artery disease) (Chronic) Allergies/Adverse Reactions: Allergies povidone-iodine [From Betadine] Allergy (Verified 01/30/17 10:32) Hives Rmjhlfs-Quy-Zov Reductase Inhibitor Adverse Reaction (Verified 01/30/17 10:32) MESSED MY LIVER UP adhesive tape Allergy (Uncoded 12/29/16 14:53) Itching/rash Home Medications: Ambulatory Orders Medication Instructions Recorded Albuterol Inhaler [Ventolin Hfa] 2 puff INHALATION Q4H PRN PRN 03/22/16 Aspirin [Aspirin, Baby] 81 mg PO DAILY@0800 03/22/16 BuPROPion (XL) [Wellbutrin Xl] 300 mg PO DAILY 03/22/16 BusPIRone [Buspar] 5 mg PO TID 03/22/16 Escitalopram Oxalate [Lexapro] 10 mg PO QHS 03/22/16 Ezetimibe [Zetia] 10 mg PO QHS 03/22/16 Fluticasone 0.05% [Flonase Nasal 2 spray NASAL BID 03/22/16 [place]] Multivitamin [Multiple Vitamins] 1 each PO DAILY 03/22/16 Omeprazole [Prilosec] 40 mg PO QHS 03/22/16 Tiotropium [place] [Spiriva 2 puff INHALATION DAILY 10/20/16 Respimat] Cholecalciferol (Vitamin D3) 1,000 unit PO DAILY 12/09/16 [Vitamin D3] Tizanidine HCl [Zanaflex] 4 mg PO Q6H PRN PRN 12/27/16 Dicyclomine HCl [Bentyl] 10 mg PO TIDAC capsule 01/04/17 Metoprolol Tartrate 25 mg PO BID #60 tablet 01/04/17 Nutritional Supplement [Chuy - 1 packet PO BIDCM packet 01/04/17 [place]] Acetaminophen [Tylenol Tablet] 650 mg PO Q6H PRN PRN tablet 01/13/17 Cefepime HCl [Maxipime] 2 gm IV Q8 vial 01/13/17 Fentanyl [Duragesic] 25 mcg TRANSDERM. Q3D #3 patch 01/13/17 Gabapentin [Neurontin] 800 mg PO TIDCM tablet 01/13/17 Guaifenesin Dm [Robitussin Dm] 10 ml PO Q4H PRN PRN udc 01/13/17 Ibuprofen [Motrin] 800 mg PO TID PRN PRN tablet 01/13/17 Metronidazole [Flagyl] 500 mg PO TID #1 tablet 01/13/17 Oxycodone [Oxyir] 10 mg PO Q4H PRN PRN #30 tablet 01/13/17 Maternal Family History: No pertinent history Paternal Family History: No pertinent history Smoking Status: Former smoker Physical Exam Vital Signs Temp Pulse Resp BP 98.2 F 71 16 111/64 04/26/17 10:23 04/26/17 10:23 04/26/17 10:23 04/26/17 10:23 General: Alert, Oriented x3, Cooperative, No apparent distress HEENT: Atraumatic, Normocephalic, - - Hyperemic left middle ear canal. Lungs: Normal air movement Cardiovascular: Regular rate Psych/Mental Status: Normal Affect Assessment/Plan The patient appears to be tolerating hyperbaric oxygen therapy well, which will be continued as per the patient's medical plan.
--- NOTE | 2017-04-27 10:09 | HBO.PN.PCM_ITS ---
History of Present Illness Date of Service: 04/27/17 Presenting Chief Complaint: Nonhealing radiation pressure ulcer, abscess ulcer right gluteal/ischial area, Stage IV, with 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 BRYN TROTTER is a 62 year old currently undergoing hyperbaric oxygen therapy for Nonhealing radiation pressure ulcer/abscess of his right gluteal/ ischial area, Stage IV, with 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 Progress: Patient is tolerating hyperbaric oxygen therapy well so far. Tolerance of hyperbaric oxygen therapy: Hyperbaric oxygen therapy was administered as per the facility's protocol. The patient tolerated hyperbaric oxygen therapy well without complications or complaints. Upon emergence from the hyperbaric chamber, the patient's vital signs remained stable. He was discharged in good condition. Past Medical History Chronic Problems Anal cancer (Chronic) Hepatitis C carrier (Chronic) COPD (chronic obstructive pulmonary disease) (Chronic) Anxiety and depression (Chronic) HTN (hypertension) (Chronic) HLD (hyperlipidemia) (Chronic) GERD (gastroesophageal reflux disease) (Chronic) PAD (peripheral artery disease) (Chronic) Allergies/Adverse Reactions: Allergies povidone-iodine [From Betadine] Allergy (Verified 01/30/17 10:32) Hives Fvikmte-Cqz-Anb Reductase Inhibitor Adverse Reaction (Verified 01/30/17 10:32) MESSED MY LIVER UP adhesive tape Allergy (Uncoded 12/29/16 14:53) Itching/rash Home Medications: Ambulatory Orders Medication Instructions Recorded Albuterol Inhaler [Ventolin Hfa] 2 puff INHALATION Q4H PRN PRN 03/22/16 Aspirin [Aspirin, Baby] 81 mg PO DAILY@0800 03/22/16 BuPROPion (XL) [Wellbutrin Xl] 300 mg PO DAILY 03/22/16 BusPIRone [Buspar] 5 mg PO TID 03/22/16 Escitalopram Oxalate [Lexapro] 10 mg PO QHS 03/22/16 Ezetimibe [Zetia] 10 mg PO QHS 03/22/16 Fluticasone 0.05% [Flonase Nasal 2 spray NASAL BID 03/22/16 [place]] Multivitamin [Multiple Vitamins] 1 each PO DAILY 03/22/16 Omeprazole [Prilosec] 40 mg PO QHS 03/22/16 Tiotropium [place] [Spiriva 2 puff INHALATION DAILY 10/20/16 Respimat] Cholecalciferol (Vitamin D3) 1,000 unit PO DAILY 12/09/16 [Vitamin D3] Tizanidine HCl [Zanaflex] 4 mg PO Q6H PRN PRN 12/27/16 Dicyclomine HCl [Bentyl] 10 mg PO TIDAC capsule 01/04/17 Metoprolol Tartrate 25 mg PO BID #60 tablet 01/04/17 Nutritional Supplement [Chuy - 1 packet PO BIDCM packet 01/04/17 [place]] Acetaminophen [Tylenol Tablet] 650 mg PO Q6H PRN PRN tablet 01/13/17 Cefepime HCl [Maxipime] 2 gm IV Q8 vial 01/13/17 Fentanyl [Duragesic] 25 mcg TRANSDERM. Q3D #3 patch 01/13/17 Gabapentin [Neurontin] 800 mg PO TIDCM tablet 01/13/17 Guaifenesin Dm [Robitussin Dm] 10 ml PO Q4H PRN PRN udc 01/13/17 Ibuprofen [Motrin] 800 mg PO TID PRN PRN tablet 01/13/17 Metronidazole [Flagyl] 500 mg PO TID #1 tablet 01/13/17 Oxycodone [Oxyir] 10 mg PO Q4H PRN PRN #30 tablet 01/13/17 Maternal Family History: No pertinent history Paternal Family History: No pertinent history Smoking Status: Former smoker Physical Exam Vital Signs Temp Pulse Resp BP 98.2 F 71 16 111/64 04/26/17 10:23 04/26/17 10:23 04/26/17 10:23 04/26/17 10:23 General: Alert, Oriented x3, Cooperative, No apparent distress HEENT: Atraumatic, Normocephalic, TM's Clear Lungs: Normal air movement Cardiovascular: Regular rate Psych/Mental Status: Normal Affect Assessment/Plan The patient appears to be tolerating hyperbaric oxygen therapy well, which will be continued as per the patient's medical plan.
[2017-04-27 10:31] VITALS: BP 132/55; BP 135/72; PULSE 68; PULSE 69; RESP 16; TEMP 36.6
[2017-04-28 10:33] VITALS: BP 130/76; BP 139/74; PULSE 66; PULSE 70; RESP 16; RESP 18; TEMP 36.6; TEMP 36.8
--- NOTE | 2017-04-28 11:03 | HBO.PN.PCM_ITS ---
History of Present Illness Date of Service: 04/28/17 Presenting Chief Complaint: Nonhealing radiation pressure ulcer, abscess ulcer right gluteal/ischial area, Stage IV, with 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 BRYN TROTTER is a 62 year old currently undergoing hyperbaric oxygen therapy for Nonhealing radiation pressure ulcer/abscess of his right gluteal/ ischial area, Stage IV, with 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 Progress: Patient is tolerating hyperbaric oxygen therapy well so far. Tolerance of hyperbaric oxygen therapy: Hyperbaric oxygen therapy was administered as per the facility's protocol. The patient tolerated hyperbaric oxygen therapy well without complications or complaints. Upon emergence from the hyperbaric chamber, the patient's vital signs remained stable. He was discharged in good condition. Past Medical History Chronic Problems Anal cancer (Chronic) Hepatitis C carrier (Chronic) COPD (chronic obstructive pulmonary disease) (Chronic) Anxiety and depression (Chronic) HTN (hypertension) (Chronic) HLD (hyperlipidemia) (Chronic) GERD (gastroesophageal reflux disease) (Chronic) PAD (peripheral artery disease) (Chronic) Allergies/Adverse Reactions: Allergies povidone-iodine [From Betadine] Allergy (Verified 01/30/17 10:32) Hives Yinbwwm-Ipg-Vvh Reductase Inhibitor Adverse Reaction (Verified 01/30/17 10:32) MESSED MY LIVER UP adhesive tape Allergy (Uncoded 12/29/16 14:53) Itching/rash Home Medications: Ambulatory Orders Medication Instructions Recorded Albuterol Inhaler [Ventolin Hfa] 2 puff INHALATION Q4H PRN PRN 03/22/16 Aspirin [Aspirin, Baby] 81 mg PO DAILY@0800 03/22/16 BuPROPion (XL) [Wellbutrin Xl] 300 mg PO DAILY 03/22/16 BusPIRone [Buspar] 5 mg PO TID 03/22/16 Escitalopram Oxalate [Lexapro] 10 mg PO QHS 03/22/16 Ezetimibe [Zetia] 10 mg PO QHS 03/22/16 Fluticasone 0.05% [Flonase Nasal 2 spray NASAL BID 03/22/16 [place]] Multivitamin [Multiple Vitamins] 1 each PO DAILY 03/22/16 Omeprazole [Prilosec] 40 mg PO QHS 03/22/16 Tiotropium [place] [Spiriva 2 puff INHALATION DAILY 10/20/16 Respimat] Cholecalciferol (Vitamin D3) 1,000 unit PO DAILY 12/09/16 [Vitamin D3] Tizanidine HCl [Zanaflex] 4 mg PO Q6H PRN PRN 12/27/16 Dicyclomine HCl [Bentyl] 10 mg PO TIDAC capsule 01/04/17 Metoprolol Tartrate 25 mg PO BID #60 tablet 01/04/17 Nutritional Supplement [Chuy - 1 packet PO BIDCM packet 01/04/17 [place]] Acetaminophen [Tylenol Tablet] 650 mg PO Q6H PRN PRN tablet 01/13/17 Cefepime HCl [Maxipime] 2 gm IV Q8 vial 01/13/17 Fentanyl [Duragesic] 25 mcg TRANSDERM. Q3D #3 patch 01/13/17 Gabapentin [Neurontin] 800 mg PO TIDCM tablet 01/13/17 Guaifenesin Dm [Robitussin Dm] 10 ml PO Q4H PRN PRN udc 01/13/17 Ibuprofen [Motrin] 800 mg PO TID PRN PRN tablet 01/13/17 Metronidazole [Flagyl] 500 mg PO TID #1 tablet 01/13/17 Oxycodone [Oxyir] 10 mg PO Q4H PRN PRN #30 tablet 01/13/17 Maternal Family History: No pertinent history Paternal Family History: No pertinent history Smoking Status: Former smoker Physical Exam Vital Signs Temp Pulse Resp BP 97.8 F 66 18 139/74 H 04/28/17 10:33 04/28/17 10:33 04/28/17 10:33 04/28/17 10:33 Assessment/Plan The patient appears to be tolerating hyperbaric oxygen therapy well, which will be continued as per the patient's medical plan.
[2017-05-01 10:25] VITALS: BP 125/66; BP 138/73; PULSE 73; RESP 16; TEMP 36.5; TEMP 36.7
--- NOTE | 2017-05-01 19:34 | HBO.PN.PCM_ITS ---
History of Present Illness Date of Service: 05/01/17 Presenting Chief Complaint: Nonhealing radiation pressure ulcer, abscess ulcer right gluteal/ischial area, Stage IV, with 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 BRYN TROTTER is a 62 year old currently undergoing hyperbaric oxygen therapy for nonhealing radiation pressure sore abscess ulcer right gluteal/ ischial area, Stage IV, with 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 Progress: Treatment #20 hyperbaric oxygen therapy. Tolerance of hyperbaric oxygen therapy: Upon emergence from the hyperbaric chamber today, the patient had no complaints or complications. Patient's vital signs have been stable and has been discharged in good condition. Patient is tolerating the hyperbaric oxygen therapy and will continue as prescribed. Past Medical History Chronic Problems Anal cancer (Chronic) Hepatitis C carrier (Chronic) COPD (chronic obstructive pulmonary disease) (Chronic) Anxiety and depression (Chronic) HTN (hypertension) (Chronic) HLD (hyperlipidemia) (Chronic) GERD (gastroesophageal reflux disease) (Chronic) PAD (peripheral artery disease) (Chronic) Allergies/Adverse Reactions: Allergies povidone-iodine [From Betadine] Allergy (Verified 01/30/17 10:32) Hives Izpfuhb-Xfo-Mlf Reductase Inhibitor Adverse Reaction (Verified 01/30/17 10:32) MESSED MY LIVER UP adhesive tape Allergy (Uncoded 12/29/16 14:53) Itching/rash Home Medications: Ambulatory Orders Medication Instructions Recorded Albuterol Inhaler [Ventolin Hfa] 2 puff INHALATION Q4H PRN PRN 03/22/16 Aspirin [Aspirin, Baby] 81 mg PO DAILY@0800 03/22/16 BuPROPion (XL) [Wellbutrin Xl] 300 mg PO DAILY 03/22/16 BusPIRone [Buspar] 5 mg PO TID 03/22/16 Escitalopram Oxalate [Lexapro] 10 mg PO QHS 03/22/16 Ezetimibe [Zetia] 10 mg PO QHS 03/22/16 Fluticasone 0.05% [Flonase Nasal 2 spray NASAL BID 03/22/16 [place]] Multivitamin [Multiple Vitamins] 1 each PO DAILY 03/22/16 Omeprazole [Prilosec] 40 mg PO QHS 03/22/16 Tiotropium [place] [Spiriva 2 puff INHALATION DAILY 10/20/16 Respimat] Cholecalciferol (Vitamin D3) 1,000 unit PO DAILY 12/09/16 [Vitamin D3] Tizanidine HCl [Zanaflex] 4 mg PO Q6H PRN PRN 12/27/16 Dicyclomine HCl [Bentyl] 10 mg PO TIDAC capsule 01/04/17 Metoprolol Tartrate 25 mg PO BID #60 tablet 01/04/17 Nutritional Supplement [[place]uy - 1 packet PO BIDCM packet 01/04/17 [place]] Acetaminophen [Tylenol Tablet] 650 mg PO Q6H PRN PRN tablet 01/13/17 Cefepime HCl [Maxipime] 2 gm IV Q8 vial 01/13/17 Fentanyl [Duragesic] 25 mcg TRANSDERM. Q3D #3 patch 01/13/17 Gabapentin [Neurontin] 800 mg PO TIDCM tablet 01/13/17 Guaifenesin Dm [Robitussin Dm] 10 ml PO Q4H PRN PRN udc 01/13/17 Ibuprofen [Motrin] 800 mg PO TID PRN PRN tablet 01/13/17 Metronidazole [Flagyl] 500 mg PO TID #1 tablet 01/13/17 Oxycodone [Oxyir] 10 mg PO Q4H PRN PRN #30 tablet 01/13/17 Maternal Family History: No pertinent history Paternal Family History: No pertinent history Smoking Status: Former smoker Physical Exam Vital Signs Temp Pulse Resp BP 98.1 F 73 16 125/66 H 05/01/17 10:25 05/01/17 10:25 05/01/17 10:25 05/01/17 10:25
[2017-05-02 10:30] VITALS: BP 130/81; BP 142/53; PULSE 73; PULSE 75; RESP 16; TEMP 36.7
--- NOTE | 2017-05-02 12:05 | PCM.HBO.PN ---
History of Present Illness Date of Service: 05/02/17 Presenting Chief Complaint: Nonhealing radiation pressure ulcer, abscess ulcer right gluteal/ischial area, Stage IV, with 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 BRYN TROTTER is a 62 year old currently undergoing hyperbaric oxygen therapy for nonhealing radiation pressure sore abscess ulcer right gluteal/ischial area, Stage IV, with 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 Progress: Treatment #22 hyperbaric oxygen therapy. Tolerance of hyperbaric oxygen therapy: Hyperbaric oxygen therapy was administered as per the facility's protocol. Upon emergence from the hyperbaric chamber today, the patient had no complaints or complications. Patient's vital signs have been stable and he has been discharged in good condition. Patient is tolerating the hyperbaric oxygen therapy and will continue as prescribed. Past Medical History Chronic Problems Anal cancer (Chronic) Hepatitis C carrier (Chronic) COPD (chronic obstructive pulmonary disease) (Chronic) Anxiety and depression (Chronic) HTN (hypertension) (Chronic) HLD (hyperlipidemia) (Chronic) GERD (gastroesophageal reflux disease) (Chronic) PAD (peripheral artery disease) (Chronic) Allergies/Adverse Reactions: Allergies povidone-iodine [From Betadine] Allergy (Verified 01/30/17 10:32) Hives Xhswaha-Yow-Wdb Reductase Inhibitor Adverse Reaction (Verified 01/30/17 10:32) MESSED MY LIVER UP adhesive tape Allergy (Uncoded 12/29/16 14:53) Itching/rash Home Medications: Ambulatory Orders Medication Instructions Recorded Albuterol Inhaler [Ventolin Hfa] 2 puff INHALATION Q4H PRN PRN 03/22/16 Aspirin [Aspirin, Baby] 81 mg PO DAILY@0800 03/22/16 BuPROPion (XL) [Wellbutrin Xl] 300 mg PO DAILY 03/22/16 BusPIRone [Buspar] 5 mg PO TID 03/22/16 Escitalopram Oxalate [Lexapro] 10 mg PO QHS 03/22/16 Ezetimibe [Zetia] 10 mg PO QHS 03/22/16 Fluticasone 0.05% [Flonase Nasal 2 spray NASAL BID 03/22/16 [place]] Multivitamin [Multiple Vitamins] 1 each PO DAILY 03/22/16 Omeprazole [Prilosec] 40 mg PO QHS 03/22/16 Tiotropium [place] [Spiriva 2 puff INHALATION DAILY 10/20/16 Respimat] Cholecalciferol (Vitamin D3) 1,000 unit PO DAILY 12/09/16 [Vitamin D3] Tizanidine HCl [Zanaflex] 4 mg PO Q6H PRN PRN 12/27/16 Dicyclomine HCl [Bentyl] 10 mg PO TIDAC capsule 01/04/17 Metoprolol Tartrate 25 mg PO BID #60 tablet 01/04/17 Nutritional Supplement [[place] - 1 packet PO BIDCM packet 01/04/17 [place]] Acetaminophen [Tylenol Tablet] 650 mg PO Q6H PRN PRN tablet 01/13/17 Cefepime HCl [Maxipime] 2 gm IV Q8 vial 01/13/17 Fentanyl [Duragesic] 25 mcg TRANSDERM. Q3D #3 patch 01/13/17 Gabapentin [Neurontin] 800 mg PO TIDCM tablet 01/13/17 Guaifenesin Dm [Robitussin Dm] 10 ml PO Q4H PRN PRN udc 01/13/17 Ibuprofen [Motrin] 800 mg PO TID PRN PRN tablet 01/13/17 Metronidazole [Flagyl] 500 mg PO TID #1 tablet 01/13/17 Oxycodone [Oxyir] 10 mg PO Q4H PRN PRN #30 tablet 01/13/17 Maternal Family History: No pertinent history Paternal Family History: No pertinent history Smoking Status: Former smoker Physical Exam Vital Signs Temp Pulse Resp BP 98.1 F 73 16 130/81 H 05/02/17 10:30 05/02/17 10:30 05/02/17 10:30 05/02/17 10:30 General: Alert, Oriented x3, Cooperative, No apparent distress, Well developed, Well nourished HEENT: Atraumatic, PERRLA, EOMI, Normocephalic Lungs: Normal air movement Psych/Mental Status: Normal Affect, Appropriate, Alert and oriented to time, place, person, mood and affect Assessment/Plan The patient appears to be tolerating hyperbaric oxygen therapy well, which will be continued as per the patient's medical plan.
[2017-05-03 11:13] VITALS: BP 121/58; BP 140/74; PULSE 68; PULSE 70; RESP 16; TEMP 36.4; TEMP 36.6
--- NOTE | 2017-05-03 14:16 | HBO.PN.PCM_ITS ---
History of Present Illness Date of Service: 05/03/17 Presenting Chief Complaint: Nonhealing radiation pressure ulcer, abscess ulcer right gluteal/ischial area, Stage IV, with 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 BRYN TROTTER is a 62 year old currently undergoing hyperbaric oxygen therapy for nonhealing radiation pressure sore abscess ulcer right gluteal/ ischial area, Stage IV, with 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 Progress: Patient has tolerated Hyperbaric Oxygen Therapy well so far. Tolerance of hyperbaric oxygen therapy: Hyperbaric oxygen therapy was administered as per the facility's protocol. Upon emergence from the hyperbaric chamber today, the patient had no complaints or complications. Patient's vital signs were stable and was discharged in good condition. Patient continues to tolerate hyperbaric oxygen therapy and will continue as prescribed. Past Medical History Chronic Problems Anal cancer (Chronic) Hepatitis C carrier (Chronic) COPD (chronic obstructive pulmonary disease) (Chronic) Anxiety and depression (Chronic) HTN (hypertension) (Chronic) HLD (hyperlipidemia) (Chronic) GERD (gastroesophageal reflux disease) (Chronic) PAD (peripheral artery disease) (Chronic) Allergies/Adverse Reactions: Allergies povidone-iodine [From Betadine] Allergy (Verified 01/30/17 10:32) Hives Qupscev-Yia-Zbo Reductase Inhibitor Adverse Reaction (Verified 01/30/17 10:32) MESSED MY LIVER UP adhesive tape Allergy (Uncoded 12/29/16 14:53) Itching/rash Home Medications: Ambulatory Orders Medication Instructions Recorded Albuterol Inhaler [Ventolin Hfa] 2 puff INHALATION Q4H PRN PRN 03/22/16 Aspirin [Aspirin, Baby] 81 mg PO DAILY@0800 03/22/16 BuPROPion (XL) [Wellbutrin Xl] 300 mg PO DAILY 03/22/16 BusPIRone [Buspar] 5 mg PO TID 03/22/16 Escitalopram Oxalate [Lexapro] 10 mg PO QHS 03/22/16 Ezetimibe [Zetia] 10 mg PO QHS 03/22/16 Fluticasone 0.05% [Flonase Nasal 2 spray NASAL BID 03/22/16 [place]] Multivitamin [Multiple Vitamins] 1 each PO DAILY 03/22/16 Omeprazole [Prilosec] 40 mg PO QHS 03/22/16 Tiotropium [place] [Spiriva 2 puff INHALATION DAILY 10/20/16 Respimat] Cholecalciferol (Vitamin D3) 1,000 unit PO DAILY 12/09/16 [Vitamin D3] Tizanidine HCl [Zanaflex] 4 mg PO Q6H PRN PRN 12/27/16 Dicyclomine HCl [Bentyl] 10 mg PO TIDAC capsule 01/04/17 Metoprolol Tartrate 25 mg PO BID #60 tablet 01/04/17 Nutritional Supplement [Chuy - 1 packet PO BIDCM packet 01/04/17 [place]] Acetaminophen [Tylenol Tablet] 650 mg PO Q6H PRN PRN tablet 01/13/17 Cefepime HCl [Maxipime] 2 gm IV Q8 vial 01/13/17 Fentanyl [Duragesic] 25 mcg TRANSDERM. Q3D #3 patch 01/13/17 Gabapentin [Neurontin] 800 mg PO TIDCM tablet 01/13/17 Guaifenesin Dm [Robitussin Dm] 10 ml PO Q4H PRN PRN udc 01/13/17 Ibuprofen [Motrin] 800 mg PO TID PRN PRN tablet 01/13/17 Metronidazole [Flagyl] 500 mg PO TID #1 tablet 01/13/17 Oxycodone [Oxyir] 10 mg PO Q4H PRN PRN #30 tablet 01/13/17 Maternal Family History: No pertinent history Paternal Family History: No pertinent history Smoking Status: Former smoker Physical Exam Vital Signs Temp Pulse Resp BP 97.6 F L 68 16 121/58 H 05/03/17 11:13 05/03/17 11:13 05/03/17 11:13 05/03/17 11:13 General: Alert, Oriented x3, Cooperative, No apparent distress HEENT: Atraumatic, Normocephalic Lungs: Normal air movement Cardiovascular: Regular rate Psych/Mental Status: Normal Affect Assessment/Plan The patient appears to be tolerating hyperbaric oxygen therapy well, which will be continued as per the patient's medical plan.
[2017-05-04 11:35] VITALS: BP 112/65; BP 143/59; PULSE 70; PULSE 72; RESP 16; TEMP 36.6; TEMP 36.7
--- NOTE | 2017-05-04 17:11 | PCM.HBO.PN ---
History of Present Illness Date of Service: 05/04/17 Presenting Chief Complaint: Nonhealing radiation pressure ulcer, abscess ulcer right gluteal/ischial area, Stage IV, with 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 BRYN TROTTER is a 62 year old currently undergoing hyperbaric oxygen therapy for nonhealing radiation pressure sore abscess ulcer right gluteal/ischial area, Stage IV, with 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 Progress: Patient has tolerated Hyperbaric Oxygen Therapy well so far. Tolerance of hyperbaric oxygen therapy: Hyperbaric oxygen therapy was administered as per the facility's protocol. Upon emergence from the hyperbaric chamber today, the patient had no complaints or complications. Patient's vital signs were stable and was discharged in good condition. Patient continues to tolerate hyperbaric oxygen therapy and will continue as prescribed. Past Medical History Chronic Problems Anal cancer (Chronic) Hepatitis C carrier (Chronic) COPD (chronic obstructive pulmonary disease) (Chronic) Anxiety and depression (Chronic) HTN (hypertension) (Chronic) HLD (hyperlipidemia) (Chronic) GERD (gastroesophageal reflux disease) (Chronic) PAD (peripheral artery disease) (Chronic) Allergies/Adverse Reactions: Allergies povidone-iodine [From Betadine] Allergy (Verified 01/30/17 10:32) Hives Unmkbom-Bbc-Zjl Reductase Inhibitor Adverse Reaction (Verified 01/30/17 10:32) MESSED MY LIVER UP adhesive tape Allergy (Uncoded 12/29/16 14:53) Itching/rash Home Medications: Ambulatory Orders Medication Instructions Recorded Albuterol Inhaler [Ventolin Hfa] 2 puff INHALATION Q4H PRN PRN 03/22/16 Aspirin [Aspirin, Baby] 81 mg PO DAILY@0800 03/22/16 BuPROPion (XL) [Wellbutrin Xl] 300 mg PO DAILY 03/22/16 BusPIRone [Buspar] 5 mg PO TID 03/22/16 Escitalopram Oxalate [Lexapro] 10 mg PO QHS 03/22/16 Ezetimibe [Zetia] 10 mg PO QHS 03/22/16 Fluticasone 0.05% [Flonase Nasal 2 spray NASAL BID 03/22/16 [place]] Multivitamin [Multiple Vitamins] 1 each PO DAILY 03/22/16 Omeprazole [Prilosec] 40 mg PO QHS 03/22/16 Tiotropium [place] [Spiriva 2 puff INHALATION DAILY 10/20/16 Respimat] Cholecalciferol (Vitamin D3) 1,000 unit PO DAILY 12/09/16 [Vitamin D3] Tizanidine HCl [Zanaflex] 4 mg PO Q6H PRN PRN 12/27/16 Dicyclomine HCl [Bentyl] 10 mg PO TIDAC capsule 01/04/17 Metoprolol Tartrate 25 mg PO BID #60 tablet 01/04/17 Nutritional Supplement [[place] - 1 packet PO BIDCM packet 01/04/17 [place]] Acetaminophen [Tylenol Tablet] 650 mg PO Q6H PRN PRN tablet 01/13/17 Cefepime HCl [Maxipime] 2 gm IV Q8 vial 01/13/17 Fentanyl [Duragesic] 25 mcg TRANSDERM. Q3D #3 patch 01/13/17 Gabapentin [Neurontin] 800 mg PO TIDCM tablet 01/13/17 Guaifenesin Dm [Robitussin Dm] 10 ml PO Q4H PRN PRN udc 01/13/17 Ibuprofen [Motrin] 800 mg PO TID PRN PRN tablet 01/13/17 Metronidazole [Flagyl] 500 mg PO TID #1 tablet 01/13/17 Oxycodone [Oxyir] 10 mg PO Q4H PRN PRN #30 tablet 01/13/17 Maternal Family History: No pertinent history Paternal Family History: No pertinent history Smoking Status: Former smoker Physical Exam Vital Signs Temp Pulse Resp BP 98.1 F 72 16 112/65 05/04/17 11:35 05/04/17 11:35 05/04/17 11:35 05/04/17 11:35 General: Alert, Oriented x3, Cooperative, No apparent distress HEENT: Atraumatic, Normocephalic, TM's Clear Lungs: Normal air movement Cardiovascular: Regular rate Psych/Mental Status: Normal Affect Assessment/Plan The patient appears to be tolerating hyperbaric oxygen therapy well, which will be continued as per the patient's medical plan.
[2017-05-05 10:29] VITALS: BP 107/77; BP 132/63; PULSE 68; PULSE 70; RESP 16; TEMP 36.3; TEMP 36.6
--- NOTE | 2017-05-05 11:01 | PCM.HBO.PN ---
History of Present Illness Date of Service: 05/05/17 Presenting Chief Complaint: Nonhealing radiation pressure ulcer, abscess ulcer right gluteal/ischial area, Stage IV, with 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 BRYN TROTTER is a 62 year old currently undergoing hyperbaric oxygen therapy for nonhealing radiation pressure sore abscess ulcer right gluteal/ischial area, Stage IV, with 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 Progress: Patient has tolerated Hyperbaric Oxygen Therapy well so far. Tolerance of hyperbaric oxygen therapy: Hyperbaric oxygen therapy was administered as per the facility's protocol. Upon emergence from the hyperbaric chamber today, the patient had no complaints or complications. Patient's vital signs were stable and was discharged in good condition. Patient continues to tolerate hyperbaric oxygen therapy and will continue as prescribed. Past Medical History Chronic Problems Anal cancer (Chronic) Hepatitis C carrier (Chronic) COPD (chronic obstructive pulmonary disease) (Chronic) Anxiety and depression (Chronic) HTN (hypertension) (Chronic) HLD (hyperlipidemia) (Chronic) GERD (gastroesophageal reflux disease) (Chronic) PAD (peripheral artery disease) (Chronic) Allergies/Adverse Reactions: Allergies povidone-iodine [From Betadine] Allergy (Verified 01/30/17 10:32) Hives Xtamqmi-Bwt-Zap Reductase Inhibitor Adverse Reaction (Verified 01/30/17 10:32) MESSED MY LIVER UP adhesive tape Allergy (Uncoded 12/29/16 14:53) Itching/rash Home Medications: Ambulatory Orders Medication Instructions Recorded Albuterol Inhaler [Ventolin Hfa] 2 puff INHALATION Q4H PRN PRN 03/22/16 Aspirin [Aspirin, Baby] 81 mg PO DAILY@0800 03/22/16 BuPROPion (XL) [Wellbutrin Xl] 300 mg PO DAILY 03/22/16 BusPIRone [Buspar] 5 mg PO TID 03/22/16 Escitalopram Oxalate [Lexapro] 10 mg PO QHS 03/22/16 Ezetimibe [Zetia] 10 mg PO QHS 03/22/16 Fluticasone 0.05% [Flonase Nasal 2 spray NASAL BID 03/22/16 [place]] Multivitamin [Multiple Vitamins] 1 each PO DAILY 03/22/16 Omeprazole [Prilosec] 40 mg PO QHS 03/22/16 Tiotropium [place] [Spiriva 2 puff INHALATION DAILY 10/20/16 Respimat] Cholecalciferol (Vitamin D3) 1,000 unit PO DAILY 12/09/16 [Vitamin D3] Tizanidine HCl [Zanaflex] 4 mg PO Q6H PRN PRN 12/27/16 Dicyclomine HCl [Bentyl] 10 mg PO TIDAC capsule 01/04/17 Metoprolol Tartrate 25 mg PO BID #60 tablet 01/04/17 Nutritional Supplement [[place] - 1 packet PO BIDCM packet 01/04/17 [place]] Acetaminophen [Tylenol Tablet] 650 mg PO Q6H PRN PRN tablet 01/13/17 Cefepime HCl [Maxipime] 2 gm IV Q8 vial 01/13/17 Fentanyl [Duragesic] 25 mcg TRANSDERM. Q3D #3 patch 01/13/17 Gabapentin [Neurontin] 800 mg PO TIDCM tablet 01/13/17 Guaifenesin Dm [Robitussin Dm] 10 ml PO Q4H PRN PRN udc 01/13/17 Ibuprofen [Motrin] 800 mg PO TID PRN PRN tablet 01/13/17 Metronidazole [Flagyl] 500 mg PO TID #1 tablet 01/13/17 Oxycodone [Oxyir] 10 mg PO Q4H PRN PRN #30 tablet 01/13/17 Maternal Family History: No pertinent history Paternal Family History: No pertinent history Smoking Status: Former smoker Physical Exam Vital Signs Temp Pulse Resp BP 98 F 68 16 107/77 05/05/17 10:29 05/05/17 10:29 05/05/17 10:29 05/05/17 10:29 Assessment/Plan The patient appears to be tolerating hyperbaric oxygen therapy well, which will be continued as per the patient's medical plan.
[2017-05-08 09:50] VITALS: BP 133/80; BP 139/93; PULSE 75; PULSE 76; RESP 16; TEMP 36.6
[2017-05-08 11:52] VITALS: BP 139/93; PULSE 76; RESP 16; TEMP 36.6
[2017-05-09 09:50] VITALS: BP 127/62; BP 148/89; PULSE 67; PULSE 68; RESP 16; TEMP 36.5
--- NOTE | 2017-05-09 11:35 | HBO.PN.PCM_ITS ---
History of Present Illness Date of Service: 05/09/17 Presenting Chief Complaint: Nonhealing radiation pressure ulcer, abscess ulcer right gluteal/ischial area, Stage IV, with 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 BRYN TROTTER is a 62 year old currently undergoing hyperbaric oxygen therapy for nonhealing radiation pressure sore abscess ulcer right gluteal/ ischial area, Stage IV, with 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 Progress: Patient has tolerated Hyperbaric Oxygen Therapy well so far. Tolerance of hyperbaric oxygen therapy: Hyperbaric oxygen therapy was administered as per the facility's protocol. Today's session represents the 27th such hyperbaric treatment. Upon emergence from the hyperbaric chamber today, the patient had no complaints or complications. Patient's vital signs were stable and he was discharged in good condition. Patient continues to tolerate hyperbaric oxygen therapy and will continue as prescribed. Past Medical History Chronic Problems Anal cancer (Chronic) Hepatitis C carrier (Chronic) COPD (chronic obstructive pulmonary disease) (Chronic) Anxiety and depression (Chronic) HTN (hypertension) (Chronic) HLD (hyperlipidemia) (Chronic) GERD (gastroesophageal reflux disease) (Chronic) PAD (peripheral artery disease) (Chronic) Allergies/Adverse Reactions: Allergies povidone-iodine [From Betadine] Allergy (Verified 01/30/17 10:32) Hives Pfutodp-Zwt-Krl Reductase Inhibitor Adverse Reaction (Verified 01/30/17 10:32) MESSED MY LIVER UP adhesive tape Allergy (Uncoded 12/29/16 14:53) Itching/rash Home Medications: Ambulatory Orders Medication Instructions Recorded Albuterol Inhaler [Ventolin Hfa] 2 puff INHALATION Q4H PRN PRN 03/22/16 Aspirin [Aspirin, Baby] 81 mg PO DAILY@0800 03/22/16 BuPROPion (XL) [Wellbutrin Xl] 300 mg PO DAILY 03/22/16 BusPIRone [Buspar] 5 mg PO TID 03/22/16 Escitalopram Oxalate [Lexapro] 10 mg PO QHS 03/22/16 Ezetimibe [Zetia] 10 mg PO QHS 03/22/16 Fluticasone 0.05% [Flonase Nasal 2 spray NASAL BID 03/22/16 [place]] Multivitamin [Multiple Vitamins] 1 each PO DAILY 03/22/16 Omeprazole [Prilosec] 40 mg PO QHS 03/22/16 Tiotropium [place] [Spiriva 2 puff INHALATION DAILY 10/20/16 Respimat] Cholecalciferol (Vitamin D3) 1,000 unit PO DAILY 12/09/16 [Vitamin D3] Tizanidine HCl [Zanaflex] 4 mg PO Q6H PRN PRN 12/27/16 Dicyclomine HCl [Bentyl] 10 mg PO TIDAC capsule 01/04/17 Metoprolol Tartrate 25 mg PO BID #60 tablet 01/04/17 Nutritional Supplement [Chuy - 1 packet PO BIDCM packet 01/04/17 [place]] Acetaminophen [Tylenol Tablet] 650 mg PO Q6H PRN PRN tablet 01/13/17 Cefepime HCl [Maxipime] 2 gm IV Q8 vial 01/13/17 Fentanyl [Duragesic] 25 mcg TRANSDERM. Q3D #3 patch 01/13/17 Gabapentin [Neurontin] 800 mg PO TIDCM tablet 01/13/17 Guaifenesin Dm [Robitussin Dm] 10 ml PO Q4H PRN PRN udc 01/13/17 Ibuprofen [Motrin] 800 mg PO TID PRN PRN tablet 01/13/17 Metronidazole [Flagyl] 500 mg PO TID #1 tablet 01/13/17 Oxycodone [Oxyir] 10 mg PO Q4H PRN PRN #30 tablet 01/13/17 Maternal Family History: No pertinent history Paternal Family History: No pertinent history Smoking Status: Former smoker Physical Exam Vital Signs Temp Pulse Resp BP 97.7 F L 68 16 127/62 H 05/09/17 09:50 05/09/17 09:50 05/09/17 09:50 05/09/17 09:50 General: Alert, Oriented x3, Cooperative, No apparent distress, Well developed, Well nourished HEENT: Atraumatic, PERRLA, EOMI, Normocephalic Lungs: Normal air movement Psych/Mental Status: Normal Affect, Appropriate, Alert and oriented to time, place, person, mood and affect Assessment/Plan The patient appears to be tolerating hyperbaric oxygen therapy well, which will be continued as per the patient's medical plan.
[2017-05-10 09:40] VITALS: BP 127/88; BP 147/62; PULSE 67; PULSE 70; RESP 16; TEMP 36.6; TEMP 36.8
--- NOTE | 2017-05-10 10:39 | PCM.HBO.PN ---
History of Present Illness Date of Service: 05/10/17 Presenting Chief Complaint: Nonhealing radiation pressure ulcer, abscess ulcer right gluteal/ischial area, Stage IV, with 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 BRYN TROTTER is a 62 year old currently undergoing hyperbaric oxygen therapy for nonhealing radiation pressure sore abscess ulcer right gluteal/ischial area, Stage IV, with 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 Progress: Patient has tolerated Hyperbaric Oxygen Therapy well so far. Tolerance of hyperbaric oxygen therapy: Hyperbaric oxygen therapy was administered as per the facility's protocol. Upon emergence from the hyperbaric chamber today, the patient had no complaints or complications. Patient's vital signs were stable and he was discharged in good condition. Patient continues to tolerate hyperbaric oxygen therapy and will continue as prescribed. Past Medical History Chronic Problems Anal cancer (Chronic) Hepatitis C carrier (Chronic) COPD (chronic obstructive pulmonary disease) (Chronic) Anxiety and depression (Chronic) HTN (hypertension) (Chronic) HLD (hyperlipidemia) (Chronic) GERD (gastroesophageal reflux disease) (Chronic) PAD (peripheral artery disease) (Chronic) Allergies/Adverse Reactions: Allergies povidone-iodine [From Betadine] Allergy (Verified 01/30/17 10:32) Hives Npjqtir-Bss-Xsi Reductase Inhibitor Adverse Reaction (Verified 01/30/17 10:32) MESSED MY LIVER UP adhesive tape Allergy (Uncoded 12/29/16 14:53) Itching/rash Home Medications: Ambulatory Orders Medication Instructions Recorded Albuterol Inhaler [Ventolin Hfa] 2 puff INHALATION Q4H PRN PRN 03/22/16 Aspirin [Aspirin, Baby] 81 mg PO DAILY@0800 03/22/16 BuPROPion (XL) [Wellbutrin Xl] 300 mg PO DAILY 03/22/16 BusPIRone [Buspar] 5 mg PO TID 03/22/16 Escitalopram Oxalate [Lexapro] 10 mg PO QHS 03/22/16 Ezetimibe [Zetia] 10 mg PO QHS 03/22/16 Fluticasone 0.05% [Flonase Nasal 2 spray NASAL BID 03/22/16 [place]] Multivitamin [Multiple Vitamins] 1 each PO DAILY 03/22/16 Omeprazole [Prilosec] 40 mg PO QHS 03/22/16 Tiotropium [place] [Spiriva 2 puff INHALATION DAILY 10/20/16 Respimat] Cholecalciferol (Vitamin D3) 1,000 unit PO DAILY 12/09/16 [Vitamin D3] Tizanidine HCl [Zanaflex] 4 mg PO Q6H PRN PRN 12/27/16 Dicyclomine HCl [Bentyl] 10 mg PO TIDAC capsule 01/04/17 Metoprolol Tartrate 25 mg PO BID #60 tablet 01/04/17 Nutritional Supplement [[place] - 1 packet PO BIDCM packet 01/04/17 [place]] Acetaminophen [Tylenol Tablet] 650 mg PO Q6H PRN PRN tablet 01/13/17 Cefepime HCl [Maxipime] 2 gm IV Q8 vial 01/13/17 Fentanyl [Duragesic] 25 mcg TRANSDERM. Q3D #3 patch 01/13/17 Gabapentin [Neurontin] 800 mg PO TIDCM tablet 01/13/17 Guaifenesin Dm [Robitussin Dm] 10 ml PO Q4H PRN PRN udc 01/13/17 Ibuprofen [Motrin] 800 mg PO TID PRN PRN tablet 01/13/17 Metronidazole [Flagyl] 500 mg PO TID #1 tablet 01/13/17 Oxycodone [Oxyir] 10 mg PO Q4H PRN PRN #30 tablet 01/13/17 Maternal Family History: No pertinent history Paternal Family History: No pertinent history Smoking Status: Former smoker Physical Exam Vital Signs Temp Pulse Resp BP 97.9 F 70 16 127/88 H 05/10/17 09:40 05/10/17 09:40 05/10/17 09:40 05/10/17 09:40 General: Alert, Oriented x3, Cooperative, No apparent distress HEENT: Atraumatic, Normocephalic Lungs: Normal air movement Cardiovascular: Regular rate Psych/Mental Status: Normal Affect Assessment/Plan The patient appears to be tolerating hyperbaric oxygen therapy well, which will be continued as per the patient's medical plan.
== END 2017-05-10 23:59 ==
LOC: WC 10:00
PROVIDERS: Family Provider Internal Medicine; PCP Internal Medicine; Visit Provider Surgery
DX: L59.8 Other specified disorders of the skin and subcutaneous tissue related to radiation (principal); L89.214 Pressure ulcer of right hip, stage 4; Z85.048 Personal history of other malignant neoplasm of rectum, rectosigmoid junction, and anus; B18.2 Chronic viral hepatitis C; J44.9 Chronic obstructive pulmonary disease, unspecified; I10 Essential (primary) hypertension; E78.5 Hyperlipidemia, unspecified; I73.9 Peripheral vascular disease, unspecified; K21.9 Gastro-esophageal reflux disease without esophagitis; F41.9 Anxiety disorder, unspecified; F32.9 Major depressive disorder, single episode, unspecified; Z79.899 Other long term (current) drug therapy; Z79.82 Long term (current) use of aspirin; Z87.891 Personal history of nicotine dependence
CPT/HCPCS: 11043; 11046; 99183; G0277

== ENCOUNTER 2017-05-29 10:00 | Outpatient (RCR) | payer MEDICAID, SELFPAY ==
[2017-05-11 00:40] VITALS: BP 146/81; PULSE 67; RESP 16; TEMP 36.8
[2017-05-11 09:50] VITALS: BP 151/78; PULSE 68; RESP 16; TEMP 36.6
--- NOTE | 2017-05-11 10:36 | PCM.HBO.PN ---
History of Present Illness Date of Service: 05/11/17 Presenting Chief Complaint: Nonhealing radiation pressure ulcer, abscess ulcer right gluteal/ischial area, Stage IV, with 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 BRYN TROTTER is a 62 year old currently undergoing hyperbaric oxygen therapy for nonhealing radiation pressure sore abscess ulcer right gluteal/ischial area, Stage IV, with 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 Progress: Patient has tolerated Hyperbaric Oxygen Therapy well so far. Tolerance of hyperbaric oxygen therapy: Hyperbaric oxygen therapy was administered as per the facility's protocol. Upon emergence from the hyperbaric chamber today, the patient had no complaints or complications. Patient's vital signs were stable and he was discharged in good condition. Past Medical History Chronic Problems Anal cancer (Chronic) Hepatitis C carrier (Chronic) COPD (chronic obstructive pulmonary disease) (Chronic) Anxiety and depression (Chronic) HTN (hypertension) (Chronic) HLD (hyperlipidemia) (Chronic) GERD (gastroesophageal reflux disease) (Chronic) PAD (peripheral artery disease) (Chronic) Allergies/Adverse Reactions: Allergies povidone-iodine [From Betadine] Allergy (Verified 01/30/17 10:32) Hives Wiznboo-Ydt-Dbh Reductase Inhibitor Adverse Reaction (Verified 01/30/17 10:32) MESSED MY LIVER UP adhesive tape Allergy (Uncoded 12/29/16 14:53) Itching/rash Home Medications: Ambulatory Orders Medication Instructions Recorded Albuterol Inhaler [Ventolin Hfa] 2 puff INHALATION Q4H PRN PRN 03/22/16 Aspirin [Aspirin, Baby] 81 mg PO DAILY@0800 03/22/16 BuPROPion (XL) [Wellbutrin Xl] 300 mg PO DAILY 03/22/16 BusPIRone [Buspar] 5 mg PO TID 03/22/16 Escitalopram Oxalate [Lexapro] 10 mg PO QHS 03/22/16 Ezetimibe [Zetia] 10 mg PO QHS 03/22/16 Fluticasone 0.05% [Flonase Nasal 2 spray NASAL BID 03/22/16 [place]] Multivitamin [Multiple Vitamins] 1 each PO DAILY 03/22/16 Omeprazole [Prilosec] 40 mg PO QHS 03/22/16 Tiotropium [place] [Spiriva 2 puff INHALATION DAILY 10/20/16 Respimat] Cholecalciferol (Vitamin D3) 1,000 unit PO DAILY 12/09/16 [Vitamin D3] Tizanidine HCl [Zanaflex] 4 mg PO Q6H PRN PRN 12/27/16 Dicyclomine HCl [Bentyl] 10 mg PO TIDAC capsule 01/04/17 Metoprolol Tartrate 25 mg PO BID #60 tablet 01/04/17 Nutritional Supplement [[place] - 1 packet PO BIDCM packet 01/04/17 [place]] Acetaminophen [Tylenol Tablet] 650 mg PO Q6H PRN PRN tablet 01/13/17 Cefepime HCl [Maxipime] 2 gm IV Q8 vial 01/13/17 Fentanyl [Duragesic] 25 mcg TRANSDERM. Q3D #3 patch 01/13/17 Gabapentin [Neurontin] 800 mg PO TIDCM tablet 01/13/17 Guaifenesin Dm [Robitussin Dm] 10 ml PO Q4H PRN PRN udc 01/13/17 Ibuprofen [Motrin] 800 mg PO TID PRN PRN tablet 01/13/17 Metronidazole [Flagyl] 500 mg PO TID #1 tablet 01/13/17 Oxycodone [Oxyir] 10 mg PO Q4H PRN PRN #30 tablet 01/13/17 Maternal Family History: No pertinent history Paternal Family History: No pertinent history Smoking Status: Former smoker Physical Exam Vital Signs Temp Pulse Resp BP 98.2 F 67 16 146/81 H 05/11/17 00:40 05/11/17 00:40 05/11/17 00:40 05/11/17 00:40 General: Alert, Oriented x3, Cooperative HEENT: Atraumatic, Normocephalic Lungs: Normal air movement Cardiovascular: Regular rate Psych/Mental Status: Normal Affect Assessment/Plan The patient appears to be tolerating hyperbaric oxygen therapy well, which will be continued as per the patient's medical plan.
[2017-05-12 09:40] VITALS: BP 151/87; BP 156/95; PULSE 69; PULSE 71; RESP 16; TEMP 36.7; TEMP 37
--- NOTE | 2017-05-12 10:46 | PCM.HBO.PN ---
History of Present Illness Date of Service: 05/12/17 Presenting Chief Complaint: Nonhealing radiation pressure ulcer, abscess ulcer right gluteal/ischial area, Stage IV, with 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 BRYN TROTTER is a 62 year old currently undergoing hyperbaric oxygen therapy for nonhealing radiation pressure sore abscess ulcer right gluteal/ischial area, Stage IV, with 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 Progress: Patient has tolerated Hyperbaric Oxygen Therapy well so far. Tolerance of hyperbaric oxygen therapy: Hyperbaric oxygen therapy was administered as per the facility's protocol. Upon emergence from the hyperbaric chamber today, the patient had no complaints or complications. Patient's vital signs were stable and he was discharged in good condition. Past Medical History Chronic Problems Anal cancer (Chronic) Hepatitis C carrier (Chronic) COPD (chronic obstructive pulmonary disease) (Chronic) Anxiety and depression (Chronic) HTN (hypertension) (Chronic) HLD (hyperlipidemia) (Chronic) GERD (gastroesophageal reflux disease) (Chronic) PAD (peripheral artery disease) (Chronic) Allergies/Adverse Reactions: Allergies povidone-iodine [From Betadine] Allergy (Verified 01/30/17 10:32) Hives Qotvrqh-Zdm-Efm Reductase Inhibitor Adverse Reaction (Verified 01/30/17 10:32) MESSED MY LIVER UP adhesive tape Allergy (Uncoded 12/29/16 14:53) Itching/rash Home Medications: Ambulatory Orders Medication Instructions Recorded Albuterol Inhaler [Ventolin Hfa] 2 puff INHALATION Q4H PRN PRN 03/22/16 Aspirin [Aspirin, Baby] 81 mg PO DAILY@0800 03/22/16 BuPROPion (XL) [Wellbutrin Xl] 300 mg PO DAILY 03/22/16 BusPIRone [Buspar] 5 mg PO TID 03/22/16 Escitalopram Oxalate [Lexapro] 10 mg PO QHS 03/22/16 Ezetimibe [Zetia] 10 mg PO QHS 03/22/16 Fluticasone 0.05% [Flonase Nasal 2 spray NASAL BID 03/22/16 [place]] Multivitamin [Multiple Vitamins] 1 each PO DAILY 03/22/16 Omeprazole [Prilosec] 40 mg PO QHS 03/22/16 Tiotropium [place] [Spiriva 2 puff INHALATION DAILY 10/20/16 Respimat] Cholecalciferol (Vitamin D3) 1,000 unit PO DAILY 12/09/16 [Vitamin D3] Tizanidine HCl [Zanaflex] 4 mg PO Q6H PRN PRN 12/27/16 Dicyclomine HCl [Bentyl] 10 mg PO TIDAC capsule 01/04/17 Metoprolol Tartrate 25 mg PO BID #60 tablet 01/04/17 Nutritional Supplement [Chuy - 1 packet PO BIDCM packet 01/04/17 [place]] Acetaminophen [Tylenol Tablet] 650 mg PO Q6H PRN PRN tablet 01/13/17 Cefepime HCl [Maxipime] 2 gm IV Q8 vial 01/13/17 Fentanyl [Duragesic] 25 mcg TRANSDERM. Q3D #3 patch 01/13/17 Gabapentin [Neurontin] 800 mg PO TIDCM tablet 01/13/17 Guaifenesin Dm [Robitussin Dm] 10 ml PO Q4H PRN PRN udc 01/13/17 Ibuprofen [Motrin] 800 mg PO TID PRN PRN tablet 01/13/17 Metronidazole [Flagyl] 500 mg PO TID #1 tablet 01/13/17 Oxycodone [Oxyir] 10 mg PO Q4H PRN PRN #30 tablet 01/13/17 Maternal Family History: No pertinent history Paternal Family History: No pertinent history Smoking Status: Former smoker Physical Exam Vital Signs Temp Pulse Resp BP 98.6 F 69 16 151/87 H 05/12/17 09:40 05/12/17 09:40 05/12/17 09:40 05/12/17 09:40 Assessment/Plan The patient appears to be tolerating hyperbaric oxygen therapy well, which will be continued as per the patient's medical plan.
[2017-05-15 10:30] VITALS: BP 136/75; BP 140/72; PULSE 69; PULSE 71; RESP 16; RESP 18; TEMP 36.1; TEMP 36.2
--- NOTE | 2017-05-15 22:32 | PCM.HBO.PN ---
History of Present Illness Date of Service: 05/15/17 Presenting Chief Complaint: Nonhealing radiation pressure ulcer, abscess ulcer right gluteal/ischial area, Stage IV, with 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 BRYN TROTTER is a 62 year old currently undergoing hyperbaric oxygen therapy for nonhealing radiation pressure sore abscess ulcer right gluteal/ischial area, Stage IV, with 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 Progress: Treatment #31 hyperbaric oxygen therapy. Tolerance of hyperbaric oxygen therapy: Hyperbaric oxygen therapy was administered as per the facility's protocol. Upon emergence from the hyperbaric chamber today, the patient had no complaints or complications. Patient's vital signs were stable and he was discharged in good condition. 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, stage 4 (Chronic) Anal cancer (Chronic) Hepatitis C carrier (Chronic) COPD (chronic obstructive pulmonary disease) (Chronic) Anxiety and depression (Chronic) HTN (hypertension) (Chronic) HLD (hyperlipidemia) (Chronic) GERD (gastroesophageal reflux disease) (Chronic) PAD (peripheral artery disease) (Chronic) Allergies/Adverse Reactions: Allergies povidone-iodine [From Betadine] Allergy (Verified 06/06/17 14:24) Hives Jobovtj-Tou-Ctp Reductase Inhibitor Adverse Reaction (Verified 06/06/17 14:24) MESSED MY LIVER UP adhesive tape Allergy (Uncoded 06/06/17 14:24) Itching/rash Home Medications: Ambulatory Orders Medication Instructions Recorded Albuterol Inhaler [Ventolin Hfa] 2 puff INHALATION Q4H PRN PRN 03/22/16 Aspirin [Aspirin, Baby] 81 mg PO DAILY@0800 03/22/16 Escitalopram Oxalate [Lexapro] 10 mg PO QHS 03/22/16 Ezetimibe [Zetia] 10 mg PO QHS 03/22/16 Fluticasone 0.05% [Flonase Nasal 2 spray NASAL BID 03/22/16 [place]] Multivitamin [Multiple Vitamins] 1 each PO DAILY 03/22/16 Omeprazole [Prilosec] 40 mg PO QHS 03/22/16 buPROPion XL [Wellbutrin Xl] 300 mg PO QHS 03/22/16 busPIRone [Buspar] 5 mg PO TID 03/22/16 Tiotropium [place] [Spiriva 2 puff INHALATION DAILY 10/20/16 Respimat] Cholecalciferol (Vitamin D3) 1,000 unit PO DAILY 12/09/16 [Vitamin D3] Tizanidine HCl [Zanaflex] 4 mg PO Q6H PRN PRN 12/27/16 Metoprolol Tartrate 25 mg PO BID #60 tablet 01/04/17 Nutritional Supplement [Chuy - 1 packet PO BIDCM packet 01/04/17 [place]] Acetaminophen [Tylenol Tablet] 650 mg PO Q6H PRN PRN tablet 01/13/17 Gabapentin [Neurontin] 800 mg PO TIDCM tablet 01/13/17 Ibuprofen [Motrin] 800 mg PO TID 06/06/17 Triamterene 37.5MG/Hctz 25MG 0.5 cap PO DAILY 06/06/17 [Dyazide (G)] Testosterone [Androderm 2mg/24 hr] 1 each TD 06/08/17 Piperacil/Tazobactam [Zosyn] 3.375 gm IV Q8 40 Days #120 dose 06/13/17 Diazepam [Valium] 5 mg PO 4X/DAY PRN PRN #30 tab 06/14/17 DiphenhydrAMINE [Benadryl] 25 mg PO Q6H PRN capsule 06/14/17 Docusate Sodium [Colace] 100 mg PO BID capsule 06/14/17 Ensure Enlive 120 ml PO 4X/DAY liquid 06/14/17 Heparin Sodium,Porcine/Pf [Heparin 500 unit IV UD PRN syringe 06/14/17 500 Unit/5 ml (100/ml)] Ibuprofen [Motrin] 800 mg PO Q8H PRN PRN tablet 06/14/17 Ipratropium [Atrovent Aerosols] 0.5 mg INHALATION Q6HWA.RT 06/14/17 solution Iron Polysaccharide Complex 150 mg PO DAILYCM capsule 06/14/17 [Ferrex 150] Loperamide [Imodium] 2 mg PO Q4H PRN PRN capsule 06/14/17 Nutritional Supplement [Chuy - 1 packet PO BIDCM packet 06/14/17 [place]] Oxycodone HCl/Acetaminophen 1 - 2 tab PO 4X/DAY PRN PRN 5 Days 06/14/17 [Percocet 5/325] #40 tab Testosterone [Androderm 2mg/24 hr] 1 each TD DAILY patch.td24 06/14/17 proMETHazine tablet [Phenergan 25 mg PO Q4H PRN PRN tablet 06/14/17 tablet] Shaina [Ultra-Light Rollator] 1 shaina .QDAILY 180 Days #1 ea 08/28/17 Maternal Family History: No pertinent history Paternal Family History: No pertinent history Smoking Status: Former smoker Physical Exam Vital Signs Temp Pulse Resp BP 97.1 F L 71 18 136/75 H 05/15/17 10:30 05/15/17 10:30 05/15/17 10:30 05/15/17 10:30
[2017-05-16 09:54] VITALS: BP 145/85; BP 172/96; PULSE 69; PULSE 75; RESP 16; TEMP 36.7; TEMP 37
--- NOTE | 2017-05-16 13:01 | PCM.HBO.PN ---
History of Present Illness Date of Service: 05/16/17 Presenting Chief Complaint: Nonhealing radiation pressure ulcer, abscess ulcer right gluteal/ischial area, Stage IV, with 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 BRYN TROTTER is a 62 year old currently undergoing hyperbaric oxygen therapy for nonhealing radiation pressure sore abscess ulcer right gluteal/ischial area, Stage IV, with 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 Progress: Patient has tolerated Hyperbaric Oxygen Therapy well so far. Tolerance of hyperbaric oxygen therapy: Hyperbaric oxygen therapy was administered as per the facility's protocol. Today's hyperbaric oxygen session represents the 32nd such session. The patient tolerated hyperbaric oxygen therapy well, without complaints or complications. Upon emergence from the hyperbaric chamber today, the patient's vital signs remained stable. He was discharged in good condition. Past Medical History Chronic Problems Anal cancer (Chronic) Hepatitis C carrier (Chronic) COPD (chronic obstructive pulmonary disease) (Chronic) Anxiety and depression (Chronic) HTN (hypertension) (Chronic) HLD (hyperlipidemia) (Chronic) GERD (gastroesophageal reflux disease) (Chronic) PAD (peripheral artery disease) (Chronic) Allergies/Adverse Reactions: Allergies povidone-iodine [From Betadine] Allergy (Verified 01/30/17 10:32) Hives Goiqawk-Iao-Nkq Reductase Inhibitor Adverse Reaction (Verified 01/30/17 10:32) MESSED MY LIVER UP adhesive tape Allergy (Uncoded 12/29/16 14:53) Itching/rash Home Medications: Ambulatory Orders Medication Instructions Recorded Albuterol Inhaler [Ventolin Hfa] 2 puff INHALATION Q4H PRN PRN 03/22/16 Aspirin [Aspirin, Baby] 81 mg PO DAILY@0800 03/22/16 BuPROPion (XL) [Wellbutrin Xl] 300 mg PO DAILY 03/22/16 BusPIRone [Buspar] 5 mg PO TID 03/22/16 Escitalopram Oxalate [Lexapro] 10 mg PO QHS 03/22/16 Ezetimibe [Zetia] 10 mg PO QHS 03/22/16 Fluticasone 0.05% [Flonase Nasal 2 spray NASAL BID 03/22/16 [place]] Multivitamin [Multiple Vitamins] 1 each PO DAILY 03/22/16 Omeprazole [Prilosec] 40 mg PO QHS 03/22/[address] [place] [Spiriva 2 puff INHALATION DAILY 10/20/16 Respimat] Cholecalciferol (Vitamin D3) 1,000 unit PO DAILY 12/09/16 [Vitamin D3] Tizanidine HCl [Zanaflex] 4 mg PO Q6H PRN PRN 12/27/16 Dicyclomine HCl [Bentyl] 10 mg PO TIDAC capsule 01/04/17 Metoprolol Tartrate 25 mg PO BID #60 tablet 01/04/17 Nutritional Supplement [Chuy - 1 packet PO BIDCM packet 01/04/17 [place]] Acetaminophen [Tylenol Tablet] 650 mg PO Q6H PRN PRN tablet 01/13/17 Cefepime HCl [Maxipime] 2 gm IV Q8 vial 01/13/17 Fentanyl [Duragesic] 25 mcg TRANSDERM. Q3D #3 patch 01/13/17 Gabapentin [Neurontin] 800 mg PO TIDCM tablet 01/13/17 Guaifenesin Dm [Robitussin Dm] 10 ml PO Q4H PRN PRN udc 01/13/17 Ibuprofen [Motrin] 800 mg PO TID PRN PRN tablet 01/13/17 Metronidazole [Flagyl] 500 mg PO TID #1 tablet 01/13/17 Oxycodone [Oxyir] 10 mg PO Q4H PRN PRN #30 tablet 01/13/17 Maternal Family History: No pertinent history Paternal Family History: No pertinent history Smoking Status: Former smoker Physical Exam Vital Signs Temp Pulse Resp BP 98.6 F 75 16 172/96 H 05/16/17 09:54 05/16/17 09:54 05/16/17 09:54 05/16/17 09:54 General: Alert, Oriented x3, Cooperative, No apparent distress, Well developed, Well nourished HEENT: Atraumatic, PERRLA, EOMI, Normocephalic Lungs: Normal air movement Psych/Mental Status: Normal Affect, Appropriate, Alert and oriented to time, place, person, mood and affect Assessment/Plan She appears to be tolerating hyperbaric oxygen therapy well, which will continue as per his medical plan.
--- NOTE | 2017-05-16 13:04 | HBO.PN.PCM_ITS ---
History of Present Illness Date of Service: 05/16/17 Presenting Chief Complaint: Nonhealing radiation pressure ulcer, abscess ulcer right gluteal/ischial area, Stage IV, with 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 BRYN TROTTER is a 62 year old currently undergoing hyperbaric oxygen therapy for nonhealing radiation pressure sore abscess ulcer right gluteal/ ischial area, Stage IV, with 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 Progress: Patient has tolerated Hyperbaric Oxygen Therapy well so far. Tolerance of hyperbaric oxygen therapy: Hyperbaric oxygen therapy was administered as per the facility's protocol. Today's hyperbaric oxygen session represents the 32nd such session. The patient tolerated hyperbaric oxygen therapy well, without complaints or complications. Upon emergence from the hyperbaric chamber today, the patient's vital signs remained stable. He was discharged in good condition. Past Medical History Chronic Problems Anal cancer (Chronic) Hepatitis C carrier (Chronic) COPD (chronic obstructive pulmonary disease) (Chronic) Anxiety and depression (Chronic) HTN (hypertension) (Chronic) HLD (hyperlipidemia) (Chronic) GERD (gastroesophageal reflux disease) (Chronic) PAD (peripheral artery disease) (Chronic) Allergies/Adverse Reactions: Allergies povidone-iodine [From Betadine] Allergy (Verified 01/30/17 10:32) Hives Pmpafpn-Agm-Mko Reductase Inhibitor Adverse Reaction (Verified 01/30/17 10:32) MESSED MY LIVER UP adhesive tape Allergy (Uncoded 12/29/16 14:53) Itching/rash Home Medications: Ambulatory Orders Medication Instructions Recorded Albuterol Inhaler [Ventolin Hfa] 2 puff INHALATION Q4H PRN PRN 03/22/16 Aspirin [Aspirin, Baby] 81 mg PO DAILY@0800 03/22/16 BuPROPion (XL) [Wellbutrin Xl] 300 mg PO DAILY 03/22/16 BusPIRone [Buspar] 5 mg PO TID 03/22/16 Escitalopram Oxalate [Lexapro] 10 mg PO QHS 03/22/16 Ezetimibe [Zetia] 10 mg PO QHS 03/22/16 Fluticasone 0.05% [Flonase Nasal 2 spray NASAL BID 03/22/16 [place]] Multivitamin [Multiple Vitamins] 1 each PO DAILY 03/22/16 Omeprazole [Prilosec] 40 mg PO QHS 03/22/16 Tiotropium [place] [Spiriva 2 puff INHALATION DAILY 10/20/16 Respimat] Cholecalciferol (Vitamin D3) 1,000 unit PO DAILY 12/09/16 [Vitamin D3] Tizanidine HCl [Zanaflex] 4 mg PO Q6H PRN PRN 12/27/16 Dicyclomine HCl [Bentyl] 10 mg PO TIDAC capsule 01/04/17 Metoprolol Tartrate 25 mg PO BID #60 tablet 01/04/17 Nutritional Supplement [[place]uy - 1 packet PO BIDCM packet 01/04/17 [place]] Acetaminophen [Tylenol Tablet] 650 mg PO Q6H PRN PRN tablet 01/13/17 Cefepime HCl [Maxipime] 2 gm IV Q8 vial 01/13/17 Fentanyl [Duragesic] 25 mcg TRANSDERM. Q3D #3 patch 01/13/17 Gabapentin [Neurontin] 800 mg PO TIDCM tablet 01/13/17 Guaifenesin Dm [Robitussin Dm] 10 ml PO Q4H PRN PRN udc 01/13/17 Ibuprofen [Motrin] 800 mg PO TID PRN PRN tablet 01/13/17 Metronidazole [Flagyl] 500 mg PO TID #1 tablet 01/13/17 Oxycodone [Oxyir] 10 mg PO Q4H PRN PRN #30 tablet 01/13/17 Maternal Family History: No pertinent history Paternal Family History: No pertinent history Smoking Status: Former smoker Physical Exam Vital Signs Temp Pulse Resp BP 98.6 F 75 16 172/96 H 05/16/17 09:54 05/16/17 09:54 05/16/17 09:54 05/16/17 09:54 General: Alert, Oriented x3, Cooperative, No apparent distress, Well developed, Well nourished HEENT: Atraumatic, PERRLA, EOMI, Normocephalic Lungs: Normal air movement Psych/Mental Status: Normal Affect, Appropriate, Alert and oriented to time, place, person, mood and affect Assessment/Plan She appears to be tolerating hyperbaric oxygen therapy well, which will continue as per his medical plan.
[2017-05-17 09:50] VITALS: BP 141/75; BP 155/89; PULSE 63; PULSE 68; RESP 16; TEMP 36.5; TEMP 36.8
--- NOTE | 2017-05-17 21:58 | PCM.HBO.PN ---
History of Present Illness Date of Service: 05/17/17 Presenting Chief Complaint: Nonhealing radiation pressure ulcer, abscess ulcer right gluteal/ischial area, Stage IV, with 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 BRYN TROTTER is a 62 year old currently undergoing hyperbaric oxygen therapy for nonhealing radiation pressure sore abscess ulcer right gluteal/ischial area, Stage IV, with 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 Progress: Patient has tolerated Hyperbaric Oxygen Therapy well so far. Tolerance of hyperbaric oxygen therapy: Hyperbaric oxygen therapy was administered as per the facility's protocol. The patient tolerated hyperbaric oxygen therapy well, without complaints or complications. Upon emergence from the hyperbaric chamber today, the patient's vital signs remained stable. He was discharged in good condition. Past Medical History Chronic Problems Anal cancer (Chronic) Hepatitis C carrier (Chronic) COPD (chronic obstructive pulmonary disease) (Chronic) Anxiety and depression (Chronic) HTN (hypertension) (Chronic) HLD (hyperlipidemia) (Chronic) GERD (gastroesophageal reflux disease) (Chronic) PAD (peripheral artery disease) (Chronic) Allergies/Adverse Reactions: Allergies povidone-iodine [From Betadine] Allergy (Verified 01/30/17 10:32) Hives Nvjycab-Xqv-Spt Reductase Inhibitor Adverse Reaction (Verified 01/30/17 10:32) MESSED MY LIVER UP adhesive tape Allergy (Uncoded 12/29/16 14:53) Itching/rash Home Medications: Ambulatory Orders Medication Instructions Recorded Albuterol Inhaler [Ventolin Hfa] 2 puff INHALATION Q4H PRN PRN 03/22/16 Aspirin [Aspirin, Baby] 81 mg PO DAILY@0800 03/22/16 BuPROPion (XL) [Wellbutrin Xl] 300 mg PO DAILY 03/22/16 BusPIRone [Buspar] 5 mg PO TID 03/22/16 Escitalopram Oxalate [Lexapro] 10 mg PO QHS 03/22/16 Ezetimibe [Zetia] 10 mg PO QHS 03/22/16 Fluticasone 0.05% [Flonase Nasal 2 spray NASAL BID 03/22/16 [place]] Multivitamin [Multiple Vitamins] 1 each PO DAILY 03/22/16 Omeprazole [Prilosec] 40 mg PO QHS 03/22/16 Tiotropium [place] [Spiriva 2 puff INHALATION DAILY 10/20/16 Respimat] Cholecalciferol (Vitamin D3) 1,000 unit PO DAILY 12/09/16 [Vitamin D3] Tizanidine HCl [Zanaflex] 4 mg PO Q6H PRN PRN 12/27/16 Dicyclomine HCl [Bentyl] 10 mg PO TIDAC capsule 01/04/17 Metoprolol Tartrate 25 mg PO BID #60 tablet 01/04/17 Nutritional Supplement [[place]uy - 1 packet PO BIDCM packet 01/04/17 [place]] Acetaminophen [Tylenol Tablet] 650 mg PO Q6H PRN PRN tablet 01/13/17 Cefepime HCl [Maxipime] 2 gm IV Q8 vial 01/13/17 Fentanyl [Duragesic] 25 mcg TRANSDERM. Q3D #3 patch 01/13/17 Gabapentin [Neurontin] 800 mg PO TIDCM tablet 01/13/17 Guaifenesin Dm [Robitussin Dm] 10 ml PO Q4H PRN PRN udc 01/13/17 Ibuprofen [Motrin] 800 mg PO TID PRN PRN tablet 01/13/17 Metronidazole [Flagyl] 500 mg PO TID #1 tablet 01/13/17 Oxycodone [Oxyir] 10 mg PO Q4H PRN PRN #30 tablet 01/13/17 Maternal Family History: No pertinent history Paternal Family History: No pertinent history Smoking Status: Former smoker Physical Exam Vital Signs Temp Pulse Resp BP 98.2 F 68 16 141/75 H 05/17/17 09:50 05/17/17 09:50 05/17/17 09:50 05/17/17 09:50 General: Alert, Oriented x3, Cooperative, No apparent distress HEENT: Atraumatic, Normocephalic, TM's Clear Lungs: Normal air movement Cardiovascular: Regular rate Psych/Mental Status: Normal Affect Assessment/Plan He appears to be tolerating hyperbaric oxygen therapy well, which will continue as per his medical plan.
[2017-05-18 09:40] VITALS: BP 144/82; BP 150/80; PULSE 72; PULSE 76; RESP 16; TEMP 36.5; TEMP 36.8
--- NOTE | 2017-05-18 10:20 | PCM.HBO.PN ---
History of Present Illness Date of Service: 05/18/17 Presenting Chief Complaint: Nonhealing radiation pressure ulcer, abscess ulcer right gluteal/ischial area, Stage IV, with 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 BRYN TROTTER is a 62 year old currently undergoing hyperbaric oxygen therapy for nonhealing radiation pressure sore abscess ulcer right gluteal/ischial area, Stage IV, with 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 Progress: Patient has tolerated Hyperbaric Oxygen Therapy well so far. Tolerance of hyperbaric oxygen therapy: Hyperbaric oxygen therapy was administered as per the facility's protocol. The patient tolerated hyperbaric oxygen therapy well, without complaints or complications. Upon emergence from the hyperbaric chamber today, the patient's vital signs remained stable. He was discharged in good condition. Past Medical History Chronic Problems Anal cancer (Chronic) Hepatitis C carrier (Chronic) COPD (chronic obstructive pulmonary disease) (Chronic) Anxiety and depression (Chronic) HTN (hypertension) (Chronic) HLD (hyperlipidemia) (Chronic) GERD (gastroesophageal reflux disease) (Chronic) PAD (peripheral artery disease) (Chronic) Allergies/Adverse Reactions: Allergies povidone-iodine [From Betadine] Allergy (Verified 01/30/17 10:32) Hives Ocfggwg-Rgt-Fzr Reductase Inhibitor Adverse Reaction (Verified 01/30/17 10:32) MESSED MY LIVER UP adhesive tape Allergy (Uncoded 12/29/16 14:53) Itching/rash Home Medications: Ambulatory Orders Medication Instructions Recorded Albuterol Inhaler [Ventolin Hfa] 2 puff INHALATION Q4H PRN PRN 03/22/16 Aspirin [Aspirin, Baby] 81 mg PO DAILY@0800 03/22/16 BuPROPion (XL) [Wellbutrin Xl] 300 mg PO DAILY 03/22/16 BusPIRone [Buspar] 5 mg PO TID 03/22/16 Escitalopram Oxalate [Lexapro] 10 mg PO QHS 03/22/16 Ezetimibe [Zetia] 10 mg PO QHS 03/22/16 Fluticasone 0.05% [Flonase Nasal 2 spray NASAL BID 03/22/16 [place]] Multivitamin [Multiple Vitamins] 1 each PO DAILY 03/22/16 Omeprazole [Prilosec] 40 mg PO QHS 03/22/16 Tiotropium [place] [Spiriva 2 puff INHALATION DAILY 10/20/16 Respimat] Cholecalciferol (Vitamin D3) 1,000 unit PO DAILY 12/09/16 [Vitamin D3] Tizanidine HCl [Zanaflex] 4 mg PO Q6H PRN PRN 12/27/16 Dicyclomine HCl [Bentyl] 10 mg PO TIDAC capsule 01/04/17 Metoprolol Tartrate 25 mg PO BID #60 tablet 01/04/17 Nutritional Supplement [[place] - 1 packet PO BIDCM packet 01/04/17 [place]] Acetaminophen [Tylenol Tablet] 650 mg PO Q6H PRN PRN tablet 01/13/17 Cefepime HCl [Maxipime] 2 gm IV Q8 vial 01/13/17 Fentanyl [Duragesic] 25 mcg TRANSDERM. Q3D #3 patch 01/13/17 Gabapentin [Neurontin] 800 mg PO TIDCM tablet 01/13/17 Guaifenesin Dm [Robitussin Dm] 10 ml PO Q4H PRN PRN udc 01/13/17 Ibuprofen [Motrin] 800 mg PO TID PRN PRN tablet 01/13/17 Metronidazole [Flagyl] 500 mg PO TID #1 tablet 01/13/17 Oxycodone [Oxyir] 10 mg PO Q4H PRN PRN #30 tablet 01/13/17 Maternal Family History: No pertinent history Paternal Family History: No pertinent history Smoking Status: Former smoker Physical Exam Vital Signs Temp Pulse Resp BP 98.3 F 72 16 144/82 H 05/18/17 09:40 05/18/17 09:40 05/18/17 09:40 05/18/17 09:40 General: Alert, Oriented x3, Cooperative, No apparent distress HEENT: Atraumatic, Normocephalic, TM's Clear Lungs: Normal air movement Cardiovascular: Regular rate Psych/Mental Status: Normal Affect Assessment/Plan He appears to be tolerating hyperbaric oxygen therapy well, which will continue as per his medical plan.
[2017-05-22 12:49] VITALS: BP 129/85; BP 146/93; PULSE 78; PULSE 79; RESP 16; TEMP 36.7; TEMP 36.9
--- NOTE | 2017-05-22 16:47 | HBO.PN.PCM_ITS ---
History of Present Illness Date of Service: 05/22/17 Presenting Chief Complaint: Nonhealing radiation pressure ulcer, abscess ulcer right gluteal/ischial area, Stage IV, with 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 BRYN TROTTER is a 62 year old currently undergoing hyperbaric oxygen therapy for nonhealing radiation pressure sore abscess ulcer right gluteal/ ischial area, Stage IV, with 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 Progress: Patient has tolerated Hyperbaric Oxygen Therapy well so far. Tolerance of hyperbaric oxygen therapy: Hyperbaric oxygen therapy was administered as per the facility's protocol. Today's session represents the patient's 35th such session of hyperbaric oxygen therapy. The patient tolerated hyperbaric oxygen therapy well, without complaints or complications. Upon emergence from the hyperbaric chamber today, the patient's vital signs remained stable. He was discharged in good condition. Past Medical History Chronic Problems Anal cancer (Chronic) Hepatitis C carrier (Chronic) COPD (chronic obstructive pulmonary disease) (Chronic) Anxiety and depression (Chronic) HTN (hypertension) (Chronic) HLD (hyperlipidemia) (Chronic) GERD (gastroesophageal reflux disease) (Chronic) PAD (peripheral artery disease) (Chronic) Allergies/Adverse Reactions: Allergies povidone-iodine [From Betadine] Allergy (Verified 01/30/17 10:32) Hives Tmvahyv-Gxu-Qbv Reductase Inhibitor Adverse Reaction (Verified 01/30/17 10:32) MESSED MY LIVER UP adhesive tape Allergy (Uncoded 12/29/16 14:53) Itching/rash Home Medications: Ambulatory Orders Medication Instructions Recorded Albuterol Inhaler [Ventolin Hfa] 2 puff INHALATION Q4H PRN PRN 03/22/16 Aspirin [Aspirin, Baby] 81 mg PO DAILY@0800 03/22/16 BuPROPion (XL) [Wellbutrin Xl] 300 mg PO DAILY 03/22/16 BusPIRone [Buspar] 5 mg PO TID 03/22/16 Escitalopram Oxalate [Lexapro] 10 mg PO QHS 03/22/16 Ezetimibe [Zetia] 10 mg PO QHS 03/22/16 Fluticasone 0.05% [Flonase Nasal 2 spray NASAL BID 03/22/16 [place]] Multivitamin [Multiple Vitamins] 1 each PO DAILY 03/22/16 Omeprazole [Prilosec] 40 mg PO QHS 03/22/16 Tiotropium [place] [Spiriva 2 puff INHALATION DAILY 10/20/16 Respimat] Cholecalciferol (Vitamin D3) 1,000 unit PO DAILY 12/09/16 [Vitamin D3] Tizanidine HCl [Zanaflex] 4 mg PO Q6H PRN PRN 12/27/16 Dicyclomine HCl [Bentyl] 10 mg PO TIDAC capsule 01/04/17 Metoprolol Tartrate 25 mg PO BID #60 tablet 01/04/17 Nutritional Supplement [Chuy - 1 packet PO BIDCM packet 01/04/17 [place]] Acetaminophen [Tylenol Tablet] 650 mg PO Q6H PRN PRN tablet 01/13/17 Cefepime HCl [Maxipime] 2 gm IV Q8 vial 01/13/17 Fentanyl [Duragesic] 25 mcg TRANSDERM. Q3D #3 patch 01/13/17 Gabapentin [Neurontin] 800 mg PO TIDCM tablet 01/13/17 Guaifenesin Dm [Robitussin Dm] 10 ml PO Q4H PRN PRN udc 01/13/17 Ibuprofen [Motrin] 800 mg PO TID PRN PRN tablet 01/13/17 Metronidazole [Flagyl] 500 mg PO TID #1 tablet 01/13/17 Oxycodone [Oxyir] 10 mg PO Q4H PRN PRN #30 tablet 01/13/17 Maternal Family History: No pertinent history Paternal Family History: No pertinent history Smoking Status: Former smoker Physical Exam Vital Signs Temp Pulse Resp BP 98.5 F 78 16 129/85 H 05/22/17 12:49 05/22/17 12:49 05/22/17 12:49 05/22/17 12:49 General: Alert, Oriented x3, Cooperative, No apparent distress, Well developed, Well nourished HEENT: Atraumatic, PERRLA, EOMI, Normocephalic Lungs: Normal air movement Psych/Mental Status: Normal Affect, Appropriate, Alert and oriented to time, place, person, mood and affect Assessment/Plan Patient appears to be tolerating hyperbaric oxygen therapy well, which will be continued as per the patient's medical plan.
[2017-05-23 09:55] VITALS: BP 135/79; BP 152/85; PULSE 70; PULSE 73; RESP 16; TEMP 36.7; TEMP 36.8
--- NOTE | 2017-05-23 12:40 | PCM.HBO.PN ---
History of Present Illness Date of Service: 05/23/17 Presenting Chief Complaint: Nonhealing radiation pressure ulcer, abscess ulcer right gluteal/ischial area, Stage IV, with 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 BRYN TROTTER is a 62 year old currently undergoing hyperbaric oxygen therapy for nonhealing radiation pressure sore abscess ulcer right gluteal/ischial area, Stage IV, with 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 Progress: Patient has tolerated Hyperbaric Oxygen Therapy well so far. Tolerance of hyperbaric oxygen therapy: Hyperbaric oxygen therapy was administered as per the facility's protocol. Today's session represents the patient's 36th such session of hyperbaric oxygen therapy. The patient tolerated hyperbaric oxygen therapy well, without complaints or complications. Upon emergence from the hyperbaric chamber today, the patient's vital signs remained stable. He was discharged in good condition. Past Medical History Chronic Problems Anal cancer (Chronic) Hepatitis C carrier (Chronic) COPD (chronic obstructive pulmonary disease) (Chronic) Anxiety and depression (Chronic) HTN (hypertension) (Chronic) HLD (hyperlipidemia) (Chronic) GERD (gastroesophageal reflux disease) (Chronic) PAD (peripheral artery disease) (Chronic) Allergies/Adverse Reactions: Allergies povidone-iodine [From Betadine] Allergy (Verified 01/30/17 10:32) Hives Etddpoj-Naq-Dun Reductase Inhibitor Adverse Reaction (Verified 01/30/17 10:32) MESSED MY LIVER UP adhesive tape Allergy (Uncoded 12/29/16 14:53) Itching/rash Home Medications: Ambulatory Orders Medication Instructions Recorded Albuterol Inhaler [Ventolin Hfa] 2 puff INHALATION Q4H PRN PRN 03/22/16 Aspirin [Aspirin, Baby] 81 mg PO DAILY@0800 03/22/16 BuPROPion (XL) [Wellbutrin Xl] 300 mg PO DAILY 03/22/16 BusPIRone [Buspar] 5 mg PO TID 03/22/16 Escitalopram Oxalate [Lexapro] 10 mg PO QHS 03/22/16 Ezetimibe [Zetia] 10 mg PO QHS 03/22/16 Fluticasone 0.05% [Flonase Nasal 2 spray NASAL BID 03/22/16 [place]] Multivitamin [Multiple Vitamins] 1 each PO DAILY 03/22/16 Omeprazole [Prilosec] 40 mg PO QHS 03/22/16 Tiotropium [place] [Spiriva 2 puff INHALATION DAILY 10/20/16 Respimat] Cholecalciferol (Vitamin D3) 1,000 unit PO DAILY 12/09/16 [Vitamin D3] Tizanidine HCl [Zanaflex] 4 mg PO Q6H PRN PRN 12/27/16 Dicyclomine HCl [Bentyl] 10 mg PO TIDAC capsule 01/04/17 Metoprolol Tartrate 25 mg PO BID #60 tablet 01/04/17 Nutritional Supplement [Chuy - 1 packet PO BIDCM packet 01/04/17 [place]] Acetaminophen [Tylenol Tablet] 650 mg PO Q6H PRN PRN tablet 01/13/17 Cefepime HCl [Maxipime] 2 gm IV Q8 vial 01/13/17 Fentanyl [Duragesic] 25 mcg TRANSDERM. Q3D #3 patch 01/13/17 Gabapentin [Neurontin] 800 mg PO TIDCM tablet 01/13/17 Guaifenesin Dm [Robitussin Dm] 10 ml PO Q4H PRN PRN udc 01/13/17 Ibuprofen [Motrin] 800 mg PO TID PRN PRN tablet 01/13/17 Metronidazole [Flagyl] 500 mg PO TID #1 tablet 01/13/17 Oxycodone [Oxyir] 10 mg PO Q4H PRN PRN #30 tablet 01/13/17 Maternal Family History: No pertinent history Paternal Family History: No pertinent history Smoking Status: Former smoker Physical Exam Vital Signs Temp Pulse Resp BP 98.1 F 73 16 135/79 H 05/23/17 09:55 05/23/17 09:55 05/23/17 09:55 05/23/17 09:55 General: Alert, Oriented x3, Cooperative, No apparent distress, Well developed, Well nourished HEENT: Atraumatic, PERRLA, EOMI, Normocephalic Lungs: Normal air movement Psych/Mental Status: Normal Affect, Appropriate, Alert and oriented to time, place, person, mood and affect Assessment/Plan The patient appears to be tolerating hyperbaric oxygen treatments well, which will continue as per the patient's medical plan.
[2017-05-24 09:55] VITALS: BP 139/85; BP 151/81; PULSE 75; RESP 16; TEMP 36.8; TEMP 36.9
--- NOTE | 2017-05-24 13:42 | PCM.HBO.PN ---
History of Present Illness Date of Service: 05/24/17 Presenting Chief Complaint: Nonhealing radiation pressure ulcer, abscess ulcer right gluteal/ischial area, Stage IV, with 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 BRYN TROTTER is a 62 year old currently undergoing hyperbaric oxygen therapy for nonhealing radiation pressure sore abscess ulcer right gluteal/ischial area, Stage IV, with 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 Progress: Patient has tolerated Hyperbaric Oxygen Therapy well so far. Tolerance of hyperbaric oxygen therapy: Hyperbaric oxygen therapy was administered as per the facility's protocol. The patient tolerated hyperbaric oxygen therapy well, without complaints or complications. Upon emergence from the hyperbaric chamber today, the patient's vital signs remained stable. He was discharged in good condition. Past Medical History Chronic Problems Anal cancer (Chronic) Hepatitis C carrier (Chronic) COPD (chronic obstructive pulmonary disease) (Chronic) Anxiety and depression (Chronic) HTN (hypertension) (Chronic) HLD (hyperlipidemia) (Chronic) GERD (gastroesophageal reflux disease) (Chronic) PAD (peripheral artery disease) (Chronic) Allergies/Adverse Reactions: Allergies povidone-iodine [From Betadine] Allergy (Verified 01/30/17 10:32) Hives Wnnlqat-Gdu-Bdh Reductase Inhibitor Adverse Reaction (Verified 01/30/17 10:32) MESSED MY LIVER UP adhesive tape Allergy (Uncoded 12/29/16 14:53) Itching/rash Home Medications: Ambulatory Orders Medication Instructions Recorded Albuterol Inhaler [Ventolin Hfa] 2 puff INHALATION Q4H PRN PRN 03/22/16 Aspirin [Aspirin, Baby] 81 mg PO DAILY@0800 03/22/16 BuPROPion (XL) [Wellbutrin Xl] 300 mg PO DAILY 03/22/16 BusPIRone [Buspar] 5 mg PO TID 03/22/16 Escitalopram Oxalate [Lexapro] 10 mg PO QHS 03/22/16 Ezetimibe [Zetia] 10 mg PO QHS 03/22/16 Fluticasone 0.05% [Flonase Nasal 2 spray NASAL BID 03/22/16 [place]] Multivitamin [Multiple Vitamins] 1 each PO DAILY 03/22/16 Omeprazole [Prilosec] 40 mg PO QHS 03/22/16 Tiotropium [place] [Spiriva 2 puff INHALATION DAILY 10/20/16 Respimat] Cholecalciferol (Vitamin D3) 1,000 unit PO DAILY 12/09/16 [Vitamin D3] Tizanidine HCl [Zanaflex] 4 mg PO Q6H PRN PRN 12/27/16 Dicyclomine HCl [Bentyl] 10 mg PO TIDAC capsule 01/04/17 Metoprolol Tartrate 25 mg PO BID #60 tablet 01/04/17 Nutritional Supplement [Chuy - 1 packet PO BIDCM packet 01/04/17 [place]] Acetaminophen [Tylenol Tablet] 650 mg PO Q6H PRN PRN tablet 01/13/17 Cefepime HCl [Maxipime] 2 gm IV Q8 vial 01/13/17 Fentanyl [Duragesic] 25 mcg TRANSDERM. Q3D #3 patch 01/13/17 Gabapentin [Neurontin] 800 mg PO TIDCM tablet 01/13/17 Guaifenesin Dm [Robitussin Dm] 10 ml PO Q4H PRN PRN udc 01/13/17 Ibuprofen [Motrin] 800 mg PO TID PRN PRN tablet 01/13/17 Metronidazole [Flagyl] 500 mg PO TID #1 tablet 01/13/17 Oxycodone [Oxyir] 10 mg PO Q4H PRN PRN #30 tablet 01/13/17 Maternal Family History: No pertinent history Paternal Family History: No pertinent history Smoking Status: Former smoker Physical Exam Vital Signs Temp Pulse Resp BP 98.2 F 75 16 151/81 H 05/24/17 09:55 05/24/17 09:55 05/24/17 09:55 05/24/17 09:55 General: Alert, Oriented x3, Cooperative, No apparent distress HEENT: Atraumatic, Normocephalic Lungs: Normal air movement Cardiovascular: Regular rate Psych/Mental Status: Normal Affect Assessment/Plan The patient appears to be tolerating hyperbaric oxygen treatments well, which will continue as per the patient's medical plan.
[2017-05-25 10:02] VITALS: BP 112/59; BP 145/75; PULSE 69; PULSE 75; RESP 16; TEMP 36.8; TEMP 36.9
--- NOTE | 2017-05-25 12:13 | PCM.HBO.PN ---
History of Present Illness Date of Service: 05/25/17 Presenting Chief Complaint: Nonhealing radiation pressure ulcer, abscess ulcer right gluteal/ischial area, Stage IV, with 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 BRYN TROTTER is a 62 year old currently undergoing hyperbaric oxygen therapy for nonhealing radiation pressure sore abscess ulcer right gluteal/ischial area, Stage IV, with 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 Progress: Patient has tolerated Hyperbaric Oxygen Therapy well so far. Tolerance of hyperbaric oxygen therapy: Hyperbaric oxygen therapy was administered as per the facility's protocol. The patient tolerated hyperbaric oxygen therapy well, without complaints or complications. Upon emergence from the hyperbaric chamber today, the patient's vital signs remained stable. He was discharged in good condition. Past Medical History Chronic Problems Anal cancer (Chronic) Hepatitis C carrier (Chronic) COPD (chronic obstructive pulmonary disease) (Chronic) Anxiety and depression (Chronic) HTN (hypertension) (Chronic) HLD (hyperlipidemia) (Chronic) GERD (gastroesophageal reflux disease) (Chronic) PAD (peripheral artery disease) (Chronic) Allergies/Adverse Reactions: Allergies povidone-iodine [From Betadine] Allergy (Verified 01/30/17 10:32) Hives Farpfai-Hwk-Xyw Reductase Inhibitor Adverse Reaction (Verified 01/30/17 10:32) MESSED MY LIVER UP adhesive tape Allergy (Uncoded 12/29/16 14:53) Itching/rash Home Medications: Ambulatory Orders Medication Instructions Recorded Albuterol Inhaler [Ventolin Hfa] 2 puff INHALATION Q4H PRN PRN 03/22/16 Aspirin [Aspirin, Baby] 81 mg PO DAILY@0800 03/22/16 BuPROPion (XL) [Wellbutrin Xl] 300 mg PO DAILY 03/22/16 BusPIRone [Buspar] 5 mg PO TID 03/22/16 Escitalopram Oxalate [Lexapro] 10 mg PO QHS 03/22/16 Ezetimibe [Zetia] 10 mg PO QHS 03/22/16 Fluticasone 0.05% [Flonase Nasal 2 spray NASAL BID 03/22/16 [place]] Multivitamin [Multiple Vitamins] 1 each PO DAILY 03/22/16 Omeprazole [Prilosec] 40 mg PO QHS 03/22/16 Tiotropium [place] [Spiriva 2 puff INHALATION DAILY 10/20/16 Respimat] Cholecalciferol (Vitamin D3) 1,000 unit PO DAILY 12/09/16 [Vitamin D3] Tizanidine HCl [Zanaflex] 4 mg PO Q6H PRN PRN 12/27/16 Dicyclomine HCl [Bentyl] 10 mg PO TIDAC capsule 01/04/17 Metoprolol Tartrate 25 mg PO BID #60 tablet 01/04/17 Nutritional Supplement [Chuy - 1 packet PO BIDCM packet 01/04/17 [place]] Acetaminophen [Tylenol Tablet] 650 mg PO Q6H PRN PRN tablet 01/13/17 Cefepime HCl [Maxipime] 2 gm IV Q8 vial 01/13/17 Fentanyl [Duragesic] 25 mcg TRANSDERM. Q3D #3 patch 01/13/17 Gabapentin [Neurontin] 800 mg PO TIDCM tablet 01/13/17 Guaifenesin Dm [Robitussin Dm] 10 ml PO Q4H PRN PRN udc 01/13/17 Ibuprofen [Motrin] 800 mg PO TID PRN PRN tablet 01/13/17 Metronidazole [Flagyl] 500 mg PO TID #1 tablet 01/13/17 Oxycodone [Oxyir] 10 mg PO Q4H PRN PRN #30 tablet 01/13/17 Maternal Family History: No pertinent history Paternal Family History: No pertinent history Smoking Status: Former smoker Physical Exam Vital Signs Temp Pulse Resp BP 98.4 F 75 16 112/59 L 05/25/17 10:02 05/25/17 10:02 05/25/17 10:02 05/25/17 10:02 General: Alert, Cooperative, No apparent distress HEENT: Atraumatic, Normocephalic Lungs: Normal air movement Cardiovascular: Regular rate Psych/Mental Status: Normal Affect Assessment/Plan The patient appears to be tolerating hyperbaric oxygen treatments well, which will continue as per the patient's medical plan.
[2017-05-26 09:50] VITALS: BP 138/75; PULSE 75; RESP 16; TEMP 36.9
--- NOTE | 2017-05-26 11:55 | HBO.PN.PCM_ITS ---
History of Present Illness Date of Service: 05/26/17 Presenting Chief Complaint: Nonhealing radiation pressure ulcer, abscess ulcer right gluteal/ischial area, Stage IV, with 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 BRYN TROTTER is a 62 year old currently undergoing hyperbaric oxygen therapy for nonhealing radiation pressure sore abscess ulcer right gluteal/ ischial area, Stage IV, with 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 Progress: Patient has tolerated Hyperbaric Oxygen Therapy well so far. Tolerance of hyperbaric oxygen therapy: Hyperbaric oxygen therapy was administered as per the facility's protocol. The patient tolerated hyperbaric oxygen therapy well, without complaints or complications. Upon emergence from the hyperbaric chamber today, the patient's vital signs remained stable. He was discharged in good condition. Past Medical History Chronic Problems Anal cancer (Chronic) Hepatitis C carrier (Chronic) COPD (chronic obstructive pulmonary disease) (Chronic) Anxiety and depression (Chronic) HTN (hypertension) (Chronic) HLD (hyperlipidemia) (Chronic) GERD (gastroesophageal reflux disease) (Chronic) PAD (peripheral artery disease) (Chronic) Allergies/Adverse Reactions: Allergies povidone-iodine [From Betadine] Allergy (Verified 01/30/17 10:32) Hives Vortvgh-Rdq-Mdk Reductase Inhibitor Adverse Reaction (Verified 01/30/17 10:32) MESSED MY LIVER UP adhesive tape Allergy (Uncoded 12/29/16 14:53) Itching/rash Home Medications: Ambulatory Orders Medication Instructions Recorded Albuterol Inhaler [Ventolin Hfa] 2 puff INHALATION Q4H PRN PRN 03/22/16 Aspirin [Aspirin, Baby] 81 mg PO DAILY@0800 03/22/16 Escitalopram Oxalate [Lexapro] 10 mg PO QHS 03/22/16 Ezetimibe [Zetia] 10 mg PO QHS 03/22/16 Fluticasone 0.05% [Flonase Nasal 2 spray NASAL BID 03/22/16 [place]] Multivitamin [Multiple Vitamins] 1 each PO DAILY 03/22/16 Omeprazole [Prilosec] 40 mg PO QHS 03/22/16 buPROPion XL [Wellbutrin Xl] 300 mg PO DAILY 03/22/16 busPIRone [Buspar] 5 mg PO TID 03/22/16 Tiotropium [place] [Spiriva 2 puff INHALATION DAILY 10/20/16 Respimat] Cholecalciferol (Vitamin D3) 1,000 unit PO DAILY 12/09/16 [Vitamin D3] Tizanidine HCl [Zanaflex] 4 mg PO Q6H PRN PRN 12/27/16 Dicyclomine HCl [Bentyl] 10 mg PO TIDAC capsule 01/04/17 Metoprolol Tartrate 25 mg PO BID #60 tablet 01/04/17 Nutritional Supplement [[place]uy - 1 packet PO BIDCM packet 01/04/17 [place]] Acetaminophen [Tylenol Tablet] 650 mg PO Q6H PRN PRN tablet 01/13/17 Cefepime HCl [Maxipime] 2 gm IV Q8 vial 01/13/17 Gabapentin [Neurontin] 800 mg PO TIDCM tablet 01/13/17 Guaifenesin Dm [Robitussin Dm] 10 ml PO Q4H PRN PRN udc 01/13/17 Ibuprofen [Motrin] 800 mg PO TID PRN PRN tablet 01/13/17 Metronidazole [Flagyl] 500 mg PO TID #1 tablet 01/13/17 Oxycodone [Oxyir] 10 mg PO Q4H PRN PRN #30 tablet 01/13/17 fentaNYL patch [Duragesic patch] 25 mcg TRANSDERM. Q3D #3 patch 01/13/17 Maternal Family History: No pertinent history Paternal Family History: No pertinent history Smoking Status: Former smoker Physical Exam Vital Signs Temp Pulse Resp BP 98.4 F 75 16 138/75 H 05/26/17 09:50 05/26/17 09:50 05/26/17 09:50 05/26/17 09:50 Assessment/Plan The patient appears to be tolerating hyperbaric oxygen treatments well, which will continue as per the patient's medical plan.
[2017-05-29 09:51] VITALS: BP 135/80; PULSE 71; RESP 16; TEMP 36.2
--- NOTE | 2017-05-29 18:39 | HBO.PN.PCM_ITS ---
History of Present Illness Date of Service: 05/29/17 Presenting Chief Complaint: Nonhealing radiation pressure ulcer, abscess ulcer right gluteal/ischial area, Stage IV, with 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 BRYN TROTTER is a 62 year old currently undergoing hyperbaric oxygen therapy for nonhealing radiation pressure sore abscess ulcer right gluteal/ ischial area, Stage IV, with 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 Progress: Treatment #40 hyperbaric oxygen therapy. Tolerance of hyperbaric oxygen therapy: Hyperbaric oxygen therapy was administered as per the facility's protocol. The patient tolerated hyperbaric oxygen therapy well, without complaints or complications. Upon emergence from the hyperbaric chamber today, the patient's vital signs remained stable. He was discharged in good condition. 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, stage 4 (Chronic) Anal cancer (Chronic) Hepatitis C carrier (Chronic) COPD (chronic obstructive pulmonary disease) (Chronic) Anxiety and depression (Chronic) HTN (hypertension) (Chronic) HLD (hyperlipidemia) (Chronic) GERD (gastroesophageal reflux disease) (Chronic) PAD (peripheral artery disease) (Chronic) Allergies/Adverse Reactions: Allergies povidone-iodine [From Betadine] Allergy (Verified 06/06/17 14:24) Hives Ywxdesz-Owd-Ele Reductase Inhibitor Adverse Reaction (Verified 06/06/17 14:24) MESSED MY LIVER UP adhesive tape Allergy (Uncoded 06/06/17 14:24) Itching/rash Home Medications: Ambulatory Orders Medication Instructions Recorded Albuterol Inhaler [Ventolin Hfa] 2 puff INHALATION Q4H PRN PRN 03/22/16 Aspirin [Aspirin, Baby] 81 mg PO DAILY@0800 03/22/16 Escitalopram Oxalate [Lexapro] 10 mg PO QHS 03/22/16 Ezetimibe [Zetia] 10 mg PO QHS 03/22/16 Fluticasone 0.05% [Flonase Nasal 2 spray NASAL BID 03/22/16 [place]] Multivitamin [Multiple Vitamins] 1 each PO DAILY 03/22/16 Omeprazole [Prilosec] 40 mg PO QHS 03/22/16 buPROPion XL [Wellbutrin Xl] 300 mg PO QHS 03/22/16 busPIRone [Buspar] 5 mg PO TID 03/22/16 Tiotropium [place] [Spiriva 2 puff INHALATION DAILY 10/20/16 Respimat] Cholecalciferol (Vitamin D3) 1,000 unit PO DAILY 12/09/16 [Vitamin D3] Tizanidine HCl [Zanaflex] 4 mg PO Q6H PRN PRN 12/27/16 Metoprolol Tartrate 25 mg PO BID #60 tablet 01/04/17 Nutritional Supplement [[place] - 1 packet PO BIDCM packet 01/04/17 [place]] Acetaminophen [Tylenol Tablet] 650 mg PO Q6H PRN PRN tablet 01/13/17 Gabapentin [Neurontin] 800 mg PO TIDCM tablet 01/13/17 Ibuprofen [Motrin] 800 mg PO TID 06/06/17 Triamterene 37.5MG/Hctz 25MG 0.5 cap PO DAILY 06/06/17 [Dyazide (G)] Testosterone [Androderm 2mg/24 hr] 1 each TD 06/08/17 Piperacil/Tazobactam [Zosyn] 3.375 gm IV Q8 40 Days #120 dose 06/13/17 Diazepam [Valium] 5 mg PO 4X/DAY PRN PRN #30 tab 06/14/17 DiphenhydrAMINE [Benadryl] 25 mg PO Q6H PRN capsule 06/14/17 Docusate Sodium [Colace] 100 mg PO BID capsule 06/14/17 Ensure Enlive 120 ml PO 4X/DAY liquid 06/14/17 Heparin Sodium,Porcine/Pf [Heparin 500 unit IV UD PRN syringe 06/14/17 500 Unit/5 ml (100/ml)] Ibuprofen [Motrin] 800 mg PO Q8H PRN PRN tablet 06/14/17 Ipratropium [Atrovent Aerosols] 0.5 mg INHALATION Q6HWA.RT 06/14/17 solution Iron Polysaccharide Complex 150 mg PO DAILYCM capsule 06/14/17 [Ferrex 150] Loperamide [Imodium] 2 mg PO Q4H PRN PRN capsule 06/14/17 Nutritional Supplement [[place] - 1 packet PO BIDCM packet 06/14/17 [place]] Oxycodone HCl/Acetaminophen 1 - 2 tab PO 4X/DAY PRN PRN 5 Days 06/14/17 [Percocet 5/325] #40 tab Testosterone [Androderm 2mg/24 hr] 1 each TD DAILY patch.td24 06/14/17 proMETHazine tablet [Phenergan 25 mg PO Q4H PRN PRN tablet 06/14/17 tablet] Shaina [Ultra-Light Rollator] 1 shaina LACEY .QDAILY 180 Days #1 ea 08/28/17 Maternal Family History: No pertinent history Paternal Family History: No pertinent history Smoking Status: Former smoker Physical Exam Vital Signs Temp Pulse Resp BP 97.2 F L 71 16 135/80 H 05/29/17 09:51 05/29/17 09:51 05/29/17 09:51 05/29/17 09:51
== END 2017-06-10 23:59 ==
LOC: WC 10:00
PROVIDERS: Family Provider Internal Medicine; PCP Internal Medicine; Visit Provider Surgery
DX: L59.8 Other specified disorders of the skin and subcutaneous tissue related to radiation (principal); Y84.2 Radiological procedure and radiotherapy as the cause of abnormal reaction of the patient, or of later complication, without mention of misadventure at the time of the procedure; L89.214 Pressure ulcer of right hip, stage 4; Z85.048 Personal history of other malignant neoplasm of rectum, rectosigmoid junction, and anus; J44.9 Chronic obstructive pulmonary disease, unspecified; I10 Essential (primary) hypertension; E78.5 Hyperlipidemia, unspecified; K21.9 Gastro-esophageal reflux disease without esophagitis; I73.9 Peripheral vascular disease, unspecified; B18.2 Chronic viral hepatitis C; Z79.899 Other long term (current) drug therapy; Z79.82 Long term (current) use of aspirin; Z79.51 Long term (current) use of inhaled steroids; F41.9 Anxiety disorder, unspecified; F32.9 Major depressive disorder, single episode, unspecified; Z87.891 Personal history of nicotine dependence
CPT/HCPCS: 99183; G0277

== ENCOUNTER 2017-06-08 10:19 | Inpatient (IN) | payer MEDICAID, SELFPAY ==
--- NOTE | 2017-06-07 11:15 | EKG12_ITS ---
Test Reason : PRE-OP Blood Pressure : / mmHG Vent. Rate : 063 BPM Atrial Rate : 063 BPM P-R Int : 150 ms QRS Dur : 100 ms QT Int : 418 ms P-R-T Axes : -12 024 061 degrees QTc Int : 427 ms Normal sinus rhythm Normal ECG Confirmed by PAGE SARABIA, ABILIO ([id number]), image editor MALLIKA DOE ([id number]) on 06/08/2017 3:20:37 PM Referred By: Venkat Mesa Confirmed By:ABILIO ABEL MD
[2017-06-07 11:17] LABS: Hematocrit 35.1 % (40-54); Hemoglobin 11.1 g/dl (13.0-16.5); Mean Corp Hgb Conc 31.6 g/gl (32-36); Mean Corpuscular Hgb 26.9 pg (27.0-32.0); Mean Corpuscular Volume 85.2 fL (80-94); Platelet Count 470 K/mm3 (150-450); RBC Distribution Width CV 15.4 % (11.6-14.6); RBC Distribution Width SD 46.3 fl (35.1-43.9); Red Blood Count 4.12 M/mm3 (4.6-6.2); White Blood Count 6.8 K/mm3 (4.4-11.0)
[2017-06-07 11:23] LABS: Scan Indicated on CBC? Y/N NO
[2017-06-07 11:43] LABS: AST(SGOT) 25 U/L (15-37); Alanine Aminotransfer ALT/SGPT 32 U/L (16-61); Albumin, Serum 3.6 g/dL (3.2-5.0); Alkaline Phosphatase 82 U/L (45-117); Anion Gap 6 (5-15); BUN 19 mg/dL (7-18); BUN/Creat Ratio 32.9 RATIO (10-20); Bilirubin, Direct 0.07 mg/dL (0.00-0.30); Calcium,Total 8.8 mg/dL (8.5-10.1); Chloride 97 mmol/L (98-107); Creatinine, Serum 0.58 mg/dL (0.70-1.30); EST Glomerular Filtration Rate 151 mL/min (>60); Est Glom Filt Rate - Afr Amer 183 mL/min (>60); Globulin 4.7 g/dL (2.2-4.2); Glucose 82 mg/dL (74-106); Potassium 4.3 mmol/L (3.5-5.1); Protein, Total 8.3 g/dL (6.4-8.2); Sodium Level 133 mmol/L (136-145)
--- NOTE | 2017-06-07 21:53 | HP.PCM_ITS ---
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 He developed an abscess last Fall that required surgery on 12/30/16 where he underwent surgical preparation right gluteal/ischial area with excision radiation pressure sore abscess wound and partial ostectomy for osteomyelitis (52.5 cm2). Operative cultures showed Pseudomonas, Staphylococcus , and Anaerobes. He was treated with Cefepime and Flagyl. Later on in the ECF , he had another culture which showed MRSA and Genna and he was treated with Doxycycline and Diflucan. He had trouble maintaining a seal with the VAC and he switched to Silver dressing changes. He also just finished HBO treatments for his history of radiation damage. His past history is significant for radiation treatments to his anal area for CA in 2002. He also had chemotherapy. He presents today for further surgical excision of his right ischial pressure sore with partial ostectomy for osteomyelitis in preparation for wound closure with muscle flaps and/or fasciocutaneous flaps. PAST MEDICAL HISTORY COPD. Hepatitis C carrier. Anal carcinoma treated with chemotherapy and radiation therapy. Late effect radiation. MRSA. 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 PAST SURGICAL HISTORY Total hip arthroplasty - left. Total knee arthroplasty - Surgical preparation right gluteal/ischial area with excision radiation pressure sore abscess wound and partial ostectomy for osteomyelitis (52.5 cm2) - 12/30/16 ALLERGIES povidone-iodine [From Betadine] Allergy - Hives Puuxfqt-Ojt-Pue Reductase Inhibitor Adverse Reaction - MESSED MY LIVER UP adhesive tape Allergy - Itching/rash HOME MEDICATIONS Tylenol. Ventolin. Aspirin. Wellbutrin. Buspar. Vitamin D3. Lexapro. Flonase. Neurontin. Motrin. Metoprolol. MVI. Chuy. Prilosec. Percocet. Testosterone. Spiriva. Zanaflex. Dyazide. SOCIAL HISTORY Lives: With Family Smoking Status: Former smoker Tobacco Use: Non-smoker Alcohol: None Drugs: None FAMILY HISTORY Maternal - no pertinent history Paternal - no pertinent history REVIEW OF SYSTEMS Constitutional: Denies: Chills, Fever, Weight Change. HEENT: Denies: Head Aches , Sinus Congestion, Sinus Drainage. Cardiovascular: Denies: Chest Pain, Palpitations. Respiratory: Denies: Cough, Shortness of breath at rest, Sputum production. Gastrointestinal: Denies: Abdominal Pain, Nausea, Vomiting. Genitourinary: Denies: Dysuria. Musculoskeletal: Denies: Joint Pain, Joint Tenderness. Skin: Reports: Wounds - right buttocks., -. Denies: Rash. Neurological: Denies: Numbness, Tingling, Focal weakness. Psychiatric: Denies: Anxiety, Depression, Homicidal Ideations, Suicidal Ideations. Hematologic/ Lymphatic: Denies: Easy Bruising, Easy Bleeding PHYSICAL EXAMINATION General: Alert, Oriented x3. HEENT: PERRLA, EOMI. Neck: Supple, nontender. No cervical adenopathy. Lungs: Clear to auscultation. Cardiovascular: Regular rate and rhythm. Abdomen: Soft and non-distended. Extremities: No edema. Skin On the right ischial area is a Stage IV pressure sore with palpable bone. Measures 6 x 5 x 3 cm. Some fat necrosis present. Some granulation tissue present. No purulence drainage seen at this time. Mild tenderness to palpation. Neurological: Cranial nerves II-XII grossly intact. Psych/Mental Status: Normal Affect, Appropriate. ASSESSMENT 1. 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 2. Late effect radiation right gluteal/ischial area. 3. History of anal CA treated with chemotherapy and radiation therapy. 4. MRSA. 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 Will send tissue and bone to Pathology to evaluate for carcinoma and to evaluate for osteomyelitis. Will send tissue and bone to Microbiology to evaluate for infection. He has history of MRSA and Pseudomonas. Will treat perioperatively with Vancomycin and Cefepime and Unasyn. Will try and get the VAC to seal this time. If not able, then will continue with Silver dressing changes. He will need a specialty bed postop. Depending on the culture, he may need IV antibiotics postop again that may require a PICC line. If so, the flap would be postponed until the IV antibiotics have completed. After the flap, he will be on bedrest for 6 weeks and would need to go to an ECF for that purpose. Depending on what is found at the time of surgery as well as what is found on Pathology and Microbiology, will determine HBO treatments to improve vascularity and improve the healing of this radiation wound. When this radiation wound is maximized, he will need a fasciocutaneous or a muscle flap. Anticipate increased metabolic demands from the wound and the infection. Will check a Prealbumin and he will need nutritional supplementation with protein to help the healing process. The patient was informed of the risks and complications of the procedure including alternatives to surgery. These were discussed with him personally. He voices understanding and wishes to proceed. He understands that if the wound is very close to the anal opening and stool contamination becomes an issue during the healing process, then a diverting colostomy would be necessary.
[2017-06-08] VITALS (13 sets, daily range): BP systolic 115–142; BP diastolic 51–74; PULSE 66–90; RESP 16–18; TEMP 36–37.1; O2SAT 88–100; BMI 26.4
--- NOTE | 2017-06-08 08:30 | PRES_PTH ---
PATIENT: BRYN TROTTER LOC: [facility] U#:[id number] AGE/SX: 62/M ROOM: DE317 RE06/08/[address]: Dr. Venkat Mesa MD : [id number] BED: 1 DIS: 06/14/2017 SPEC #: [id number] RECD: 06/08/17 10:32 STATUS: JUAN DIEGO REYoly #: [id number] BURT: 06/08/17 08:[address]: Venkat Mesa DEPT: SURGICAL PATHOLOGY RECD BY: Nicholas Valles ENTERED: 06/08/17 11:31 SP TYPE: PRESS SORE EVONNE DR: Dr. Winnie Gonzales MD Tissues: A - Ischium, NOS B - Ischium, NOS Procedures: Decalcification bone/plaque Surgery Specimen Level III HEADER OPERATION: Excision pressure sore, partial ostectomy, ischial PRE-OP DIAGNOSIS: Nonhealing radiation pressure sore abscess ulcer right ischial area, stage 4 TISSUE SUBMITTED: A - Nonhealing radiation pressure sore abscess ulcer right ischial area--bone, B - Nonhealing radiation pressure sore abscess ulcer right ischial area--tissue MICROSCOPIC DIAGNOSIS A. Right ischial area bone: Bone with acute osteomyelitis, chronic inflammation and reactive changes. Adherent fragments of fibroconnective tissue with acute and chronic inflammation. B. Right ischial soft tissue: Focal ulceration, acute and chronic inflammation and dense fibrosis. GALLO:isi 06/14/17 MICROSCOPIC DESCRIPTION Slides are reviewed. GROSS DESCRIPTION A - Received in fixative is one container labeled with the patient's name and designated right ischial area bone. The specimen consists of bone and adherent soft tissue measuring in aggregate 4 x 3 x 0.5 cm. The specimen is sectioned and totally submitted in one cassette after decalcification. B - Received in fixative is one container labeled with the patient's name and designated right ischial soft tissue. The specimen consists of 4 irregular fragments of rubbery pink-white soft tissue ranking in size from 2 to 17 cm. The largest fragment contains a rim of unremarkable pink-white skin. Serially sections do not reveal mass lesions. Extension Forester sections are submitted in 2 cassettes. / AM:sp 06/08/17 TC:2 CPT: 48987 x2, [id number]
[2017-06-08] MEDS: Cefepime 1 GM in 0.9% NS 50 ML Minibag Q12 IV (08:55)
--- NOTE | 2017-06-08 10:14 | OP.PN_ITS ---
Immediate Post-Op Note Date of Procedure: 06/08/17 Primary Surgeon/Physician: Venkat Mesa utility systems repairer operator: None Pre-Operative Diagnosis: 1. 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 2. Late effect radiation right gluteal/ischial area. 3. Clinical osteomyelitis. 4. History of anal CA treated with chemotherapy and radiation therapy. 5. MRSA. Post-Operative Diagnosis: Same. Surgery/Procedure Performed:: Excision radiation pressure sore abscess ulcer right ischial area, Stage IV, with partial ostectomy for osteomyelitis. Description of Surgical Findings:: Size of The patient is a 62 year old M who presents with long standing history of a nonhealing radiation pressure sore abscess ulcer right gluteal/ischial area , Stage IV. He developed an abscess last Fall that required surgery on where he underwent surgical preparation right gluteal/ischial area with excision radiation pressure sore abscess wound and partial ostectomy for osteomyelitis (52.5 cm2). Operative cultures showed Pseudomonas, Staphylococcus , and Anaerobes. He was treated with Cefepime and Flagyl. Later on in the ECF , he had another culture which showed MRSA and Genna and he was treated with Doxycycline and Diflucan. He had trouble maintaining a seal with the VAC and he switched to Silver dressing changes. He also just finished HBO treatments for his history of radiation damage. His past history is significant for radiation treatments to his anal area for CA in 2002. He also had chemotherapy. He presents today for further surgical excision of his right ischial pressure sore with partial ostectomy for osteomyelitis in preparation for wound closure with muscle flaps and/or fasciocutaneous flaps. Today the patient underwent excision radiation pressure sore abscess ulcer right ischial area, Stage IV, with partial ostectomy for osteomyelitis. Size of defect right ischial area - 8 x 7 x 5 cm. Estimated Blood Loss: 300 ml. Specimen's removed: 1. Right ischial radiation pressure sore soft tissue to Pathology and Microbiology. 2. Right ischial radiation pressure sore bone to Pathology and Microbiology. 3. MRSA swab for DNA PCR right ischial pressure sore. Drains: None. Type of Anesthesia:: General - Admit VTE Documentation VTE Present on Admission: No VTE Mechan Device Prophylaxis: SCD's VTE Pharm Prophylaxis ordered?: No
[2017-06-08] MEDS: Lactated Ringers 1,000 ML 60 ML IV (11:45)
[2017-06-08 12:11] LABS: M R Staph aureus DNA By PCR Negative (Negative); Probe Check PASS; Specimen Processing Control PASS; Staph aureus DNA By PCR NEGATIVE (Negative)
[2017-06-08] MEDS: oxyCODONE 5 MG Tablet 10 MG PO ×3 (13:36→23:52)
[2017-06-08] MEDS: busPIRone 5 MG Tablet PO ×2 (13:41→22:21)
[2017-06-08] MEDS: Gabapentin 800 MG Tablet PO ×2 (13:41→17:40)
--- NOTE | 2017-06-08 13:44 | NURSING ---
In to talk with patient about plan after discharge. MALA Velazquez states that patient will be going to a SNF at discharge. orders for Wound VAC to be placed tomorrow. patient aware and states they were unable to maintain a seal after the last surgery. will assess wound in am and see if a seal can be maintained. patient aware that if the seal cannot be maintained, then silver daily dressings will be applied.
--- NOTE | 2017-06-08 13:57 | CASEMGMT ---
Social Work Note SW met with patient to discuss discharge planning. Doctor Moshe is recommending that pt go to a fdc facility at discharge. SW spoke to pt regarding this. Pt is receptive to going to fdc facility. Pt reports that he would like to try [facility] facility. SW called [facility] and spoke with Barbara. Per Barbara they are accepting patients. SHHAANA faxed clinicals to [facility]. SW will fax Pt/Ot notes when therapy see's pt. Pt states that if [facility] doesn't work out he would like to try [facility]. Pt denied additional needs at this time. Licensed Clinical Psychologist will continue to follow. Plan: Discharge to [facility] pending acceptance and pre-cert. Caroline Og INDIGO VAT TENDER CLOTH, TOY MAKER.
--- NOTE | 2017-06-08 14:22 | CASEMGMT ---
Social Work Note Received call from Kavita at [facility] stating that they are not approved to accept [place] yet. SW faxed referral to [facility] following pt's orders. Coupon Clerk will continue to follow. Plan: [facility] pending acceptance and pre-cert Caroline Og TRACK EQUIPMENT OPERATOR, PHARMACY TECHNICIAN INPATIENT.
--- NOTE | 2017-06-08 14:35 | PCM.RX.CS ---
Consult Pharmacy has been consulted to manage selected antiobiotic: Vancomycin Type of Consult: New start Suspected Infection: Osteomyelitis Prior Doses of Antibiotics Received/Current Regimen: 1 DOSE PREOP 06/08/17 @ 0742, NEW DOSE 1750MG LOAD THEN 1250MG Q8H Labs: Sodium 133 mmol/L (136-145) L 06/07/17 11:04 Potassium 4.3 mmol/L (3.5-5.1) 06/07/17 11:04 Chloride 97 mmol/L (98-107) L 06/07/17 11:04 Carbon Dioxide 30.0 mmol/L (21.0-32.0) 06/07/17 11:04 Anion Gap 6 (5-15) 06/07/17 11:04 BUN 19 mg/dL (7-18) H 06/07/17 11:04 Creatinine 0.58 mg/dL (0.70-1.30) L 06/07/17 11:04 Est GFR (MDRD) Af Amer 183 mL/min (>60) 06/07/17 11:04 Est GFR (MDRD) Non-Af 151 mL/min (>60) 06/07/17 11:04 BUN/Creatinine Ratio 32.9 RATIO (10-20) H 06/07/17 11:04 Glucose 82 mg/dL (74-106) 06/07/17 11:04 TROUGH ORDERED FOR 06/09/17 BEFORE 8AM DOSE Weight used for dosin.6 kg Estimated Creatinine Clearance: 141 Goal Trough: 15-20 mcg/mL Pharmacy Plan for Drug Dosing: Pharmacy Service will continue to monitor and adjust dosing as required. Follow-Up Labs: Trough Vancomycin - PRIOR TO 4TH WATKINS Labs to be done on [date and time ordered]: TROUGH LEVEL 06/09/17 @ 0730
--- NOTE | 2017-06-08 16:20 | CASEMGMT ---
Social Work Note [facility] unable to accept patient. Updated pt of this and asked for other options. Pt states that he would like to try [facility]. He refused [facility] stating that they are dirty. SW asked for a second option and pt states [facility]. SW faxed referral to [facility] and informed admissions that referral was sent and that this SW will follow up with them tomorrow. Check Processor will continue to follow. Plan: Discharge to [facility] pending acceptance from facility. Caroline Og FEATHER EDGER, BOOK COVERER.
--- NOTE | 2017-06-08 16:36 | CHAPLAIN ---
Type of Pastoral Visit _x__ Initial Visit ___ Follow-up Visit ___ On-call Visit ___ General Patient Visit ___ Spiritual Assessment ___ Family Conference ___ Bereavement ___ Rapid Response ___ Code Blue ___ Other (describe below) Pastoral Care Referral From _x__ Patient ___ Family ___ Nurse ___ Physician ___ Corrugator Operator Helper ___ Special Effects Technician ___ Other (describe below) Sacrament/Intervention _x__ Active listening ___ Anointing ___ Jainism ___ Bereavement ___ Communion _x__ Becka exploration ___ _x__ Life review _x__ Prayer ___ Reconciliation ___ Sacrament of Sick _x__ Supportive presence ___ Wedding ___ Other (describe below) Pastoral Comments
[2017-06-08] MEDS: Ipratropium 0.5 MG/2.5 ML SOLUTION INHALATION (19:49)
[2017-06-08] MEDS: HYDROmorphone 1 MG/ML Syringe IV (22:16)
[2017-06-08] MEDS: Fluticasone 0.05% 1 SPRAY NASAL.SRY 2 SPRAY NASAL (22:19)
[2017-06-08] MEDS: buPROPion (XL) 300 MG TABLET.XL PO (22:20)
[2017-06-08] MEDS: Pantoprazole Sodium 40 MG Tablet PO (22:20)
[2017-06-08] MEDS: Ezetimibe 10 MG Tablet PO (22:20)
[2017-06-08] MEDS: Docusate Sodium 100 MG Capsule PO (22:21)
[2017-06-08] MEDS: Escitalopram Oxalate 10 MG Tablet PO (22:23)
[2017-06-08] MEDS: Metoprolol Tartrate 25 MG Tablet PO (22:27)
[2017-06-09] VITALS (11 sets, daily range): BP systolic 109–121; BP diastolic 48–72; PULSE 78–91; RESP 16–18; TEMP 36.8–37.4; O2SAT 95–98
[2017-06-09] MEDS: Acetaminophen 325 MG Tablet 650 MG PO (00:02)
[2017-06-09] MEDS: diazePAM 5 MG Tablet PO ×3 (02:33→22:48)
[2017-06-09] MEDS: Lactated Ringers 1,000 ML 60 ML IV (02:38)
[2017-06-09] MEDS: busPIRone 5 MG Tablet PO ×3 (06:08→21:52)
[2017-06-09] MEDS: HYDROmorphone 1 MG/ML Syringe IV ×3 (06:10→19:52)
[2017-06-09] MEDS: Ipratropium 0.5 MG/2.5 ML SOLUTION INHALATION ×2 (06:56→19:52)
[2017-06-09 08:11] LABS: Hematocrit 27.7 % (40-54); Hemoglobin 8.7 g/dl (13.0-16.5); Mean Corp Hgb Conc 31.4 g/gl (32-36); Mean Corpuscular Hgb 26.8 pg (27.0-32.0); Mean Corpuscular Volume 85.2 fL (80-94); Mean Platelet Vol. 7.2 fl (6.2-12.0); Platelet Count 264 K/mm3 (150-450); RBC Distribution Width CV 15.6 % (11.6-14.6); RBC Distribution Width SD 48.3 fl (35.1-43.9); Red Blood Count 3.25 M/mm3 (4.6-6.2); Scan Indicated on CBC? Y/N NO; White Blood Count 5.5 K/mm3 (4.4-11.0)
[2017-06-09] MEDS: 0.9% NaCl Peripheral Flush Adult/Peds IV ×3 (08:25→19:52)
[2017-06-09] MEDS: oxyCODONE 5 MG Tablet 10 MG PO ×4 (08:26→21:51)
[2017-06-09 08:27] LABS: BUN 11 mg/dL (7-18); Creatinine, Serum 0.47 mg/dL (0.70-1.30); EST Glomerular Filtration Rate 193 mL/min (>60); Estimated Creatinine Clearance 145.17 ml/min; Glucose 91 mg/dL (74-106); Vancomycin, Trough Level 14.3 ug/mL (5.0-15.0)
[2017-06-09 08:28] LABS: Anion Gap 4 (5-15); BUN/Creat Ratio 23.6 RATIO (10-20); Calcium,Total 8.4 mg/dL (8.5-10.1); Chloride 97 mmol/L (98-107); Est Glom Filt Rate - Afr Amer 234 mL/min (>60); Potassium 4.1 mmol/L (3.5-5.1); Prealbumin 18.2 mg/dL (20.0-40.0); Sodium Level 135 mmol/L (136-145)
[2017-06-09] MEDS: Multivitamins,Therapeutic Tablet 1 TABLET PO (08:30)
[2017-06-09] MEDS: Gabapentin 800 MG Tablet PO ×3 (08:30→17:02)
[2017-06-09] MEDS: Fluticasone 0.05% 1 SPRAY NASAL.SRY 2 SPRAY NASAL ×2 (08:31→21:53)
[2017-06-09] MEDS: Docusate Sodium 100 MG Capsule PO ×2 (08:31→21:53)
[2017-06-09] MEDS: Metoprolol Tartrate 25 MG Tablet PO ×2 (08:34→21:54)
[2017-06-09] MEDS: TRIAMTERENE PO (08:42)
[2017-06-09] MEDS: HYDROCHLOROTHIAZID PO (08:42)
--- NOTE | 2017-06-09 09:44 | PHA.PHARE_ITS ---
Consult Pharmacy has been consulted to manage selected antiobiotic: Vancomycin Type of Consult: Follow-up Suspected Infection: Skin/Soft tissue Labs: Sodium 135 mmol/L (136-145) L 06/09/17 07:43 Potassium 4.1 mmol/L (3.5-5.1) 06/09/17 07:43 Chloride 97 mmol/L (98-107) L 06/09/17 07:43 Carbon Dioxide 34.0 mmol/L (21.0-32.0) H 06/09/17 07:43 Anion Gap 4 (5-15) L 06/09/17 07:43 BUN 11 mg/dL (7-18) 06/09/17 07:43 Creatinine 0.47 mg/dL (0.70-1.30) L 06/09/17 07:43 Est GFR (MDRD) Af Amer 234 mL/min (>60) 06/09/17 07:43 Est GFR (MDRD) Non-Af 193 mL/min (>60) 06/09/17 07:43 BUN/Creatinine Ratio 23.6 RATIO (10-20) H 06/09/17 07:43 Glucose 91 mg/dL (74-106) 06/09/17 07:43 Vancomycin Trough 14.3 ug/mL (5.0-15.0) 06/09/17 07:43 Microbiology: Microbiology 06/08/17 09:00 Bone - Ischium Gram Stain - Final 06/08/17 09:00 Tissue - Other Gram Stain - Final Weight used for dosin.6 kg Estimated Creatinine Clearance: 145ML/MIN Goal Trough: 15-20 mcg/mL Pharmacy Plan for Drug Dosing: Pharmacy Service will continue to monitor and adjust dosing as required. The patient had a trough come back, which resulted in a level of 14.3 (drawn appropriately). Since this trough was drawn prior to the 4th total dose of vancomycin, will plan on drawing another level 06/10/17 @0730 which would be prior to the 5th dose of the q8hr scheduled vancomycin. At this time, will re- evaluate if the patient should get an increase in dose to maintain a trough between 15-20. PLAN/RECOMMENDATIONS 1. Continue vancomycin 1250mg Q8hrs 2. Re-evaluate trough 06/10 @0730 and will make changes as appropriate Follow-Up Labs: Trough Vancomycin - 06/10 @30
--- NOTE | 2017-06-09 11:13 | CASEMGMT ---
Social Work Note SHAHANA spoke with Skylar at [facility] requesting an update on referral. Skylar states that she has received the referral but has not thoroughly looked over it. She states that she will need to talk to business analytics manager at [facility] and that he will not be in till Monday. Skylar states that she will talk to him on Monday and that she will review pt's referral more thoroughly. SHAHANA informed Skylar that pt still doesn't have Pt/Ot notes yet but that this worker will fax them over as soon as they are available. SHAHANA placed referral to [facility] per pt's request. SHAHANA called [facility] and left a message for Cami in admissions regarding referral. SHAHANA informed Cami that pt doesn't currently have Pt/Ot and that this worker will fax over Pt/Ot when they are available. Etl Data Architect will continue to follow. Plan: [facility] or [facility] pending acceptance from facility and pre-cert. Caroline Og CHIEF MECHANICAL OFFICER, NUTRITION EDUCATOR.
--- NOTE | 2017-06-09 12:48 | OP.PCM_ITS ---
Report of Operation Date of Procedure: 06/08/17 Pre-Operative Diagnosis: 1. 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 2. Late effect radiation right gluteal/ischial area. 3. Clinical osteomyelitis. 4. History of anal CA treated with chemotherapy and radiation therapy. 5. MRSA. Post-Operative Diagnosis: Same. Surgery/Procedure Performed:: Excision radiation pressure sore abscess ulcer right ischial area, Stage IV, with partial ostectomy for osteomyelitis. 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 He developed an abscess last Fall that required surgery on 12/30/16 where he underwent surgical preparation right gluteal/ischial area with excision radiation pressure sore abscess wound and partial ostectomy for osteomyelitis (52.5 cm2). Operative cultures showed Pseudomonas, Staphylococcus , and Anaerobes. He was treated with Cefepime and Flagyl. Later on in the ECF , he had another culture which showed MRSA and Genna and he was treated with Doxycycline and Diflucan. He had trouble maintaining a seal with the VAC and he switched to Silver dressing changes. He also just finished HBO treatments for his history of radiation damage. His past history is significant for radiation treatments to his anal area for CA in 2002. He also had chemotherapy. He presents today for further surgical excision of his right ischial pressure sore with partial ostectomy for osteomyelitis in preparation for wound closure with muscle flaps and/or fasciocutaneous flaps. The patient was informed of the risks and complications of the procedure including alternatives to surgery. These were discussed with him personally. He voices understanding and wishes to proceed. He understands that if the wound is very close to the anal opening and stool contamination becomes an issue during the healing process, then a diverting colostomy would be necessary. Size of defect right ischial area - 8 x 7 x 5 cm. local truck driver: None Type of Anesthesia:: General Specimen's removed: 1. Right ischial radiation pressure sore soft tissue to Pathology and Microbiology. 2. Right ischial radiation pressure sore bone to Pathology and Microbiology. 3. MRSA swab for DNA PCR right ischial pressure sore. Drains: None. Estimated Blood Loss (mL): 300 ml. Description of Procedure: Patient was taken to OR in supine position and placed under general anesthesia. He was then placed in the prone position and his ischial areas were prepped and draped in the usual fashion. SCD's were placed for DVT prophylaxis. Perioperative antibiotics were given intravenously. I excised the radiation pressure sore abscess ulcer in a circular fashion down through the subcutaneous tissue and muscle which was indurated with fat necrosis and late effect radiation damage. Minimal pus was seen. The indurated ulcer extended inferiorly close to the perineal area. There was a small amount of exposed bone that never healed since his last excision back in 12/27. Clinically I suspect osteomyelitis. There was still a considerable amount of chronic radiated tissue damage deeply. After excising this radiated pressure sore ulcer down to the base, it had involved the ischial bone. The ischial bone was irregular in shape which can be consistent with osteomyelitis but also can be related to his radiation. It was also grayish in color which did not look very healthy at the time of excision. A partial ostectomy was performed with an osteotome and a mallet in a tangential direction. The bony edges were smoothed out with a rasp. Even though the exposed portion of the bone did not look very healthy, the deeper portion of bone appeared healthy with good bleeding after the partial ostectomy. At his last surgery, the depth of the ulcer was close to the sciatic nerve and he had some burning nerve pain postop that necessitated increased Neurontin for relief. With the excision today with the amount of chronic radiated scar tissue present, I expect persistence in his burning nerve pain postoperatively that will continue to need Neurontin. Hemostasis was obtained with electrocautery. The wound was irrigated with saline. The size of the defect after excision was 8 x 7 x 5 cm. The patient is allergic to Betadine so will pack the wound with Aquacel Silver followed by moistened kerlix gauze and topped with a dry kerlix gauze and ABD pads and tape for a compression dressing followed by meshed underwear. Half the soft tissue and half the bone was sent to Pathology for analysis to rule out carcinoma and to evaluate for osteomyelitis. Half the soft tissue and half the bone was sent to Microbiology for culture. A positive culture may necessitate antibiotic modification. I also sent a MRSA swab by DNA PCR. At his last surgery he had Pseudomonas, Staphylococcus aureus, and Anaerobes and MRSA at a later culture. He is being treated perioperatively with Unasyn, Vancomycin, and Cefepime. Based on the operative cultures, antibiotic modification may be necessary. There was a fair amount of blood loss from the excision secondary to his radiation history and from the HBO treatments recently. Will check a Hgb postop and if it is low, he may need PRBC in preparation for his eventual muscle flap reconstruction. Because the bone is involved, will plan on wound closure with a fasciocutaneous flap since a skin graft would not be indicated. I don't want to detach a muscle flap since the patient is ambulatory. Patient tolerated the procedure well and will be sent to PACU in satisfactory condition. He will be sent back upstairs for continued postop care. Tomorrow they will place the VAC. He had trouble with the VAC last time. Since the excision was more extensive than planned and anticipated, he may benefit from a short stay at an ECF. I anticipate the need for marine oil terminal superintendent IV antibiotic therapy and the need for a PICC line in preparation for further surgery for wound closure. Will discuss these findings with the patient. He went to an ECF after his last surgery and is not crazy about the idea, but he understands the importance of it to maximize his healing of this radiation ulcer. He also may need further HBO treatments prior to further surgery. I am also thinking about the possibility of a temporary diverting colostomy prior to his next surgery. 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 This places any wound closure flap at risk for compromise and flap breakdown. Because he is ambulatory, we don't have a lot of choices for flaps short of using the microscope for free tissue transfer. Such procedures would need to be done at a tertiary center. Post discharge, he can followup at the [facility] to monitor the healing of the ulcer and to discuss HBO therapy and to discuss the possibility of a colostomy. Grafts/Implants Used: None. - Complications None. - Admit VTE Documentation VTE Present on Admission: No VTE Mechan Device Prophylaxis: SCD's VTE Pharm Prophylaxis ordered?: No Code Visit Surgery Charges CPT - 28924 ICD-10 - L89.314, T66.xxxS, M86.151, L59.8, Z85.048, Z86.14
--- NOTE | 2017-06-09 13:06 | CASEMGMT ---
Social Work Note SHAHANA received call from [facility] stating that they are unable to accept pt. SW informed pt of this. SW asked pt for other options. SHAHANA informed pt that the only other facilities in [place] that accept pt's insurance is [facility] and [facility]. Pt states to try [facility] first and then [facility]. SHAHANA faxed a referral to [facility] with clinicals. Senior [employer] Consultant will continue to follow to assist with discharge planning. It should be noted that this worker has not yet heard from [facility] about referral and that pt's first choice is [facility]. Plan: Discharge to [facility] or [facility] pending acceptance from facility and pre-cert. Caroline Og CHEESE PANCAKE ROLLER, SOCIAL MEDIA ANALYST
--- NOTE | 2017-06-09 14:27 | NURSING ---
wound photo: right ischium
--- NOTE | 2017-06-09 15:52 | CASEMGMT ---
Social Work Note SW received call from [facility] stating that they can accept pt pending pre-cert. SW will follow up with [facility] on Monday to get update as [facility] pt's [facility] choice for placement. SW will fax Pt/Ot notes when they are available. Plan: Discharge to either [facility] or [facility] pending acceptance and pre-cert. Caroline Og DEPUTY PROBATION OFFICER, PEDIGREE TRACER.
[2017-06-09] MEDS: tiZANidine HCl 2 MG Tablet 4 MG PO (17:14)
--- NOTE | 2017-06-09 20:17 | PN.SURG_ITS ---
Subjective: Postop #1 Complains of wound pain. VAC applied today. - Physical Exam General: Alert, Oriented x3 HEENT: PERRLA, EOMI Neck: Supple Lungs: Clear to auscultation Cardiovascular: Regular rate, Regular Rhythm Abdomen: Soft, Non-Distended Skin: Ulcer/ Wound - right ischial radiation ulcer is stable. No bleeding seen. VAC applied today. Neurological: Cranial nerves II-XII grossly intact Psych/Mental Status: Normal Affect, Appropriate Vital Signs Temp Pulse Resp BP Pulse Ox 98.3 F 91 16 115/72 97 06/09/17 14:59 06/09/17 14:59 06/09/17 14:59 06/09/17 14:59 06/09/17 14:59 Oxygen Flow Rate (L/min) 2 Oxygen Delivery Method Room Air Weight: 168 lb 13.985 oz Body Mass Index (BMI) 26.4 Intake and Output for Last 24 Hours 06/07/17 06/08/17 06/09/17 23:59 23:59 23:59 Intake Total 9052 / 9052 3919 / 3919 Output Total 1500 / 1500 6700 / 6700 Balance 7552 / 7552 -2781 / -2781 Microbiology Past 72 Hours 06/08/17 09:00 Gram Stain - Final Tissue - Other Wound Culture - Preliminary Gram negative jesus Staphylococcus aureus 06/08/17 09:00 Gram Stain - Final Bone - Ischium Wound Culture - Preliminary Staphylococcus aureus Gram negative jesus Pathology - pending. Laboratory Tests Past 24 Hrs 06/09/17 06/09/17 06/09/17 07:43 07:43 07:43 WBC 5.5 RBC 3.25 L Hgb 8.7 L Hct 27.7 L MCV 85.2 MCH 26.8 L MCHC 31.4 L RDW 15.6 H RDW Differential 48.3 H Plt Count 264 MPV 7.2 Sodium 135 L Potassium 4.1 Chloride 97 L Carbon Dioxide 34.0 H Anion Gap 4 L BUN 11 Creatinine 0.47 L Estim Creat Clear Calc 145.17 Est GFR (MDRD) Af Amer 234 Est GFR (MDRD) Non-Af 193 BUN/Creatinine Ratio 23.6 H Glucose 91 Calcium 8.4 L Prealbumin 18.2 L Vancomycin Trough 14.3 Medical Necessity - Tobacco Use Smoking Status: Former smoker Assessment/Plan 1. 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 2. Late effect radiation right gluteal/ischial area. 3. Clinical osteomyelitis. 4. History of anal CA treated with chemotherapy and radiation therapy. 5. MRSA. 6. 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 7. Anemia of chronic disease, acute on chronic. VAC applied today. No bleeding seen. To be changed three times per week at 150 mmHg continuous suction. Operative culture shows Gram negative jesus and Staphylococcus aureus. Continue Vancomycin, Unasyn, and Cefepime. Anticipate terminal make up operator IV antibiotics and will have a PICC line placed. Pathology is pending. Hgb has decreased to 8.7 from 11.1. He has anemia of chronic disease, acute on chronic. There was some operative blood loss of 300 ml as well as IV dilution as his I's/O's are positive 5 liters. Will start Iron supplementation. If it continues to drop will need PRBC. Prealbumin was 18.2. Encourage nutritional supplementation with protein to help the healing process. Recommend after discharge going to an ECF because of the need for the VAC and IV antibiotics in preparation for further surgery for wound closure with muscle flaps. The operative excision was more extensive than anticipated.
[2017-06-09] MEDS: Escitalopram Oxalate 10 MG Tablet PO (21:54)
[2017-06-09] MEDS: buPROPion (XL) 300 MG TABLET.XL PO (21:55)
[2017-06-09] MEDS: Pantoprazole Sodium 40 MG Tablet PO (21:55)
[2017-06-09] MEDS: Ezetimibe 10 MG Tablet PO (21:56)
[2017-06-10] VITALS (8 sets, daily range): BP systolic 102–129; BP diastolic 60–64; PULSE 82–95; RESP 16–18; TEMP 36.8–37.4; O2SAT 90–98
[2017-06-10] MEDS: HYDROmorphone 1 MG/ML Syringe IV ×4 (00:37→19:39)
[2017-06-10] MEDS: Lactated Ringers 1,000 ML 60 ML IV (00:42)
[2017-06-10] MEDS: oxyCODONE 5 MG Tablet 10 MG PO ×2 (06:57→13:46)
[2017-06-10] MEDS: busPIRone 5 MG Tablet PO ×3 (06:58→21:31)
[2017-06-10] MEDS: Ipratropium 0.5 MG/2.5 ML SOLUTION INHALATION ×2 (07:35→13:07)
[2017-06-10 08:09] LABS: Vancomycin, Trough Level 15.5 ug/mL (5.0-15.0)
--- NOTE | 2017-06-10 08:15 | PHA.PHARE_ITS ---
Consult Pharmacy has been consulted to manage selected antiobiotic: Vancomycin Type of Consult: Follow-up Suspected Infection: Skin/Soft tissue, Osteomyelitis Prior Doses of Antibiotics Received/Current Regimen: 06/08/17 @ 0742: 1000MG IV X1 (PRE-OP), 06/08/17 @1600: 1750MG IV X1 LOADING DOSE 06/08/17 @2300: 1250MG IV Q8HRS Labs: Sodium 135 mmol/L (136-145) L 06/09/17 07:43 Potassium 4.1 mmol/L (3.5-5.1) 06/09/17 07:43 Chloride 97 mmol/L (98-107) L 06/09/17 07:43 Carbon Dioxide 34.0 mmol/L (21.0-32.0) H 06/09/17 07:43 Anion Gap 4 (5-15) L 06/09/17 07:43 BUN 11 mg/dL (7-18) 06/09/17 07:43 Creatinine 0.47 mg/dL (0.70-1.30) L 06/09/17 07:43 Est GFR (MDRD) Af Amer 234 mL/min (>60) 06/09/17 07:43 Est GFR (MDRD) Non-Af 193 mL/min (>60) 06/09/17 07:43 BUN/Creatinine Ratio 23.6 RATIO (10-20) H 06/09/17 07:43 Glucose 91 mg/dL (74-106) 06/09/17 07:43 Vancomycin Trough 15.5 ug/mL (5.0-15.0) H 06/10/17 07:35 Microbiology: Microbiology 06/08/17 09:00 Tissue - Other Gram Stain - Final 06/08/17 09:00 Tissue - Other Wound Culture - Preliminary Achromobacter xylosoxidans Staphylococcus aureus 06/08/17 09:00 Bone - Ischium Gram Stain - Final 06/08/17 09:00 Bone - Ischium Wound Culture - Preliminary Staphylococcus aureus Gram negative jesus Weight used for dosin.6 kg Estimated Creatinine Clearance: 145ML/MIN Goal Trough: 15-20 mcg/mL Pharmacy Plan for Drug Dosing: The patient had a trough come back, which resulted in a level of 15.5 (7hrs from last dose given). The patient's current wound and bone cultures are growing staph aureus, will hold off on making recommendations for narrowing therapy until both cultures are finalized (1/2 cultures showing MSSA at present) . The patient's current vancomycin regimen puts the patient within the trough goal of 15-20, so pharmacy will recommend to continue current regimen. If the patient requires vancomycin therapy past 06/12/17, will draw another trough to re- evaluate. PLAN/RECOMMENDATIONS 1. Continue vancomycin 1250mg Q8hrs 2. No new trough scheduled at this time, will re-draw if patient has a significant change in renal function, or if the patient is to remain on vancomycin therapy, pending cultures. 3. Pharmacy will continue to monitor, and make changes as appropriate.
--- NOTE | 2017-06-10 08:18 | NURSING ---
Verified with Lanie in pharmacy pt's Vancomycin trough is 15.5, dose to continue as ordered.
--- NOTE | 2017-06-10 09:00 | NURSING ---
Pt states he does not want to change Androderm patch at this time. One home patch remains at hospital and pt states he is going to have his mother go to the pharmacy to get refill and will have her bring more patches to the hospital.
[2017-06-10] MEDS: 0.9% NaCl Peripheral Flush Adult/Peds IV ×3 (09:09→19:39)
[2017-06-10] MEDS: Gabapentin 800 MG Tablet PO ×3 (09:21→15:59)
[2017-06-10] MEDS: Fluticasone 0.05% 1 SPRAY NASAL.SRY 2 SPRAY NASAL ×2 (09:21→21:28)
[2017-06-10] MEDS: Metoprolol Tartrate 25 MG Tablet PO ×2 (09:21→21:25)
[2017-06-10] MEDS: Multivitamins,Therapeutic Tablet 1 TABLET PO (09:21)
[2017-06-10] MEDS: TRIAMTERENE PO (12:05)
[2017-06-10] MEDS: HYDROCHLOROTHIAZID PO (12:05)
[2017-06-10 13:51] LABS: Hematocrit 26.3 % (40-54); Hemoglobin 8.2 g/dl (13.0-16.5); Mean Corp Hgb Conc 31.2 g/gl (32-36); Mean Corpuscular Hgb 27.3 pg (27.0-32.0); Mean Corpuscular Volume 87.7 fL (80-94); Mean Platelet Vol. 7.6 fl (6.2-12.0); Platelet Count 335 K/mm3 (150-450); RBC Distribution Width CV 15.5 % (11.6-14.6); RBC Distribution Width SD 48.5 fl (35.1-43.9); White Blood Count 6.1 K/mm3 (4.4-11.0)
[2017-06-10 13:52] LABS: Scan Indicated on CBC? Y/N NO
[2017-06-10 14:05] LABS: Anion Gap 5 (5-15); BUN 17 mg/dL (7-18); BUN/Creat Ratio 36.4 RATIO (10-20); Calcium,Total 8.3 mg/dL (8.5-10.1); Chloride 96 mmol/L (98-107); Creatinine, Serum 0.47 mg/dL (0.70-1.30); EST Glomerular Filtration Rate 193 mL/min (>60); Est Glom Filt Rate - Afr Amer 234 mL/min (>60); Estimated Creatinine Clearance 145.17 ml/min; Glucose 110 mg/dL (74-106); Potassium 4.5 mmol/L (3.5-5.1); Sodium Level 134 mmol/L (136-145)
[2017-06-10] MEDS: Ibuprofen 400 MG Tablet 800 MG PO (14:32)
[2017-06-10] MEDS: Iron Polysaccharide Complex 150 MG CAPSULE PO (14:33)
--- NOTE | 2017-06-10 16:01 | PCM.PN.SRG ---
Subjective: Postop #2 Patient is resting comfortably. PICC line placed today. - Physical Exam General: Alert, Oriented x3 HEENT: PERRLA, EOMI Neck: Supple Lungs: Clear to auscultation Cardiovascular: Regular rate, Regular Rhythm Abdomen: Soft, Non-Distended Skin: Ulcer/ Wound - right ischial radiation wound is stable. VAC in place. Minimal drainage noted in the canister. Neurological: Cranial nerves II-XII grossly intact Psych/Mental Status: Normal Affect, Appropriate Vital Signs Temp Pulse Resp BP Pulse Ox 98.4 F 92 18 117/61 98 06/10/17 14:35 06/10/17 14:35 06/10/17 14:35 06/10/17 14:35 06/10/17 14:35 Oxygen Flow Rate (L/min) 2 Oxygen Delivery Method Room Air Weight: 168 lb 13.985 oz Body Mass Index (BMI) 26.4 Intake and Output for Last 24 Hours 06/08/17 06/09/17 06/10/17 23:59 23:59 23:59 Intake Total 9052 / 9052 3919 / 3919 2655 / 2655 Output Total 1500 / 1500 6700 / 6700 1000 / 1000 Balance 7552 / 7552 -2781 / -2781 1655 / 1655 Microbiology Past 72 Hours 06/08/17 09:00 Gram Stain - Final Tissue - Other Wound Culture - Preliminary Achromobacter xylosoxidans Staphylococcus aureus Anaerobic Culture - Preliminary Checking for anaerobes, further studies to follow. 06/08/17 09:00 Gram Stain - Final Bone - Ischium Wound Culture - Preliminary Staphylococcus aureus Gram negative jesus Anaerobic Culture - Preliminary Checking for anaerobes, further studies to follow. Laboratory Tests Past 24 Hrs 06/10/17 06/10/17 06/10/17 07:35 07:35 07:35 WBC 6.1 RBC 3.00 L Hgb 8.2 L Hct 26.3 L MCV 87.7 MCH 27.3 MCHC 31.2 L RDW 15.5 H RDW Differential 48.5 H Plt Count 335 MPV 7.6 Sodium 134 L Potassium 4.5 Chloride 96 L Carbon Dioxide 33.0 H Anion Gap 5 BUN 17 Creatinine 0.47 L Estim Creat Clear Calc 145.17 Est GFR (MDRD) Af Amer 234 Est GFR (MDRD) Non-Af 193 BUN/Creatinine Ratio 36.4 H Glucose 110 H Calcium 8.3 L Vancomycin Trough 15.5 H Medical Necessity - Tobacco Use Smoking Status: Former smoker Assessment/Plan 1. 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 2. Late effect radiation right gluteal/ischial area. 3. Clinical osteomyelitis. 4. History of anal CA treated with chemotherapy and radiation therapy. 5. MRSA. 6. 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 7. Anemia of chronic disease, acute on chronic. VAC in place. Minimal drainage in the canister. No bleeding seen. To be changed three times per week at 150 mmHg continuous suction. Operative culture shows Achromobacter xylosoxidans and Staphylococcus aureus. Continue Vancomycin, Unasyn, and Cefepime. Sensitivity pending. Anticipate termite control service representative IV antibiotics and a PICC line was placed today. Pathology is pending. Hgb has decreased from 8.7 to 8.2. He has anemia of chronic disease, acute on chronic. There was some operative blood loss of 300 ml as well as IV dilution as his I's/O's are positive 6.5 liters. Continue Iron supplementation. If it continues to drop below 8, will need PRBC. Prealbumin was 18.2. Encourage nutritional supplementation with protein to help the healing process. Recommend after discharge going to an ECF because of the need for the VAC and IV antibiotics in preparation for further surgery for wound closure with muscle flaps. The operative excision was more extensive than anticipated.
--- NOTE | 2017-06-10 17:50 | NURSING ---
Kavita Muhammad RN, here from smoking pipe mounter to insert PICC line. Verified order for PICC line and performed bedside checklist with RUBEN Walls.
--- NOTE | 2017-06-10 18:47 | NURSING ---
Kavita RN, with conductor sleeping car done with double lumen PICC line insertion. See conductor sleeping car charting.
[2017-06-10] MEDS: buPROPion (XL) 300 MG TABLET.XL PO (21:27)
[2017-06-10] MEDS: Pantoprazole Sodium 40 MG Tablet PO (21:28)
[2017-06-10] MEDS: Ezetimibe 10 MG Tablet PO (21:32)
[2017-06-10] MEDS: Escitalopram Oxalate 10 MG Tablet PO (21:33)
[2017-06-11] VITALS (14 sets, daily range): BP systolic 115–156; BP diastolic 55–79; PULSE 84–96; RESP 16–18; TEMP 36.8–37.9; O2SAT 94–100
[2017-06-11] MEDS: Lactated Ringers 1,000 ML 60 ML IV (00:21)
[2017-06-11] MEDS: HYDROmorphone 1 MG/ML Syringe IV ×3 (00:24→16:25)
[2017-06-11] MEDS: Ibuprofen 400 MG Tablet 800 MG PO ×2 (00:40→22:02)
[2017-06-11] MEDS: 0.9% NaCl Peripheral Flush Adult/Peds IV ×4 (04:49→16:25)
[2017-06-11 05:05] LABS: Hematocrit 24.4 % (40-54); Hemoglobin 7.7 g/dl (13.0-16.5); Mean Corp Hgb Conc 31.6 g/gl (32-36); Mean Corpuscular Hgb 27.5 pg (27.0-32.0); Mean Corpuscular Volume 87.1 fL (80-94); Mean Platelet Vol. 7.4 fl (6.2-12.0); Platelet Count 309 K/mm3 (150-450); RBC Distribution Width CV 15.3 % (11.6-14.6); RBC Distribution Width SD 47.1 fl (35.1-43.9); White Blood Count 5.6 K/mm3 (4.4-11.0)
[2017-06-11] MEDS: busPIRone 5 MG Tablet PO ×3 (05:06→21:38)
[2017-06-11] MEDS: Loperamide 2 MG Capsule PO ×3 (05:08→22:02)
[2017-06-11] MEDS: oxyCODONE 5 MG Tablet 10 MG PO ×3 (05:11→20:12)
[2017-06-11 05:39] LABS: Scan Indicated on CBC? Y/N NO
--- NOTE | 2017-06-11 06:52 | NURSING ---
Reviewed RUBEN Alonzo charting.
[2017-06-11 08:28] LABS: Anion Gap 4 (5-15); BUN 17 mg/dL (7-18); BUN/Creat Ratio 35.3 RATIO (10-20); Chloride 99 mmol/L (98-107); Creatinine, Serum 0.48 mg/dL (0.70-1.30); EST Glomerular Filtration Rate 187 mL/min (>60); Est Glom Filt Rate - Afr Amer 226 mL/min (>60); Estimated Creatinine Clearance 142.15 ml/min; Glucose 148 mg/dL (74-106); Potassium 4.1 mmol/L (3.5-5.1); Sodium Level 135 mmol/L (136-145)
[2017-06-11] MEDS: Multivitamins,Therapeutic Tablet 1 TABLET PO (08:33)
[2017-06-11] MEDS: Gabapentin 800 MG Tablet PO ×3 (08:33→18:02)
[2017-06-11] MEDS: Metoprolol Tartrate 25 MG Tablet PO ×2 (08:33→21:39)
[2017-06-11] MEDS: Iron Polysaccharide Complex 150 MG CAPSULE PO (08:34)
[2017-06-11] MEDS: Fluticasone 0.05% 1 SPRAY NASAL.SRY 2 SPRAY NASAL ×2 (08:34→21:38)
[2017-06-11] MEDS: HYDROCHLOROTHIAZID PO (08:35)
[2017-06-11] MEDS: TRIAMTERENE PO (08:35)
[2017-06-11] MEDS: Piperacil/Tazobactam 3.375 GM/50 ML ML IV ×2 (13:35→22:03)
[2017-06-11] MEDS: Escitalopram Oxalate 10 MG Tablet PO (21:39)
[2017-06-11] MEDS: Pantoprazole Sodium 40 MG Tablet PO (21:39)
[2017-06-11] MEDS: buPROPion (XL) 300 MG TABLET.XL PO (21:40)
[2017-06-11] MEDS: Ezetimibe 10 MG Tablet PO (21:40)
--- NOTE | 2017-06-11 23:45 | PCM.PN.SRG ---
Subjective: Postop #3 Patient is resting comfortably. - Physical Exam General: Alert, Oriented x3 HEENT: PERRLA, EOMI Neck: Supple Lungs: Clear to auscultation Cardiovascular: Regular rate, Regular Rhythm Abdomen: Soft, Non-Distended Skin: Ulcer/ Wound - right ischial radiation wound is stable. VAC in place. Minimal drainage noted in the canister. Neurological: Cranial nerves II-XII grossly intact Psych/Mental Status: Normal Affect, Appropriate Vital Signs Temp Pulse Resp BP Pulse Ox 100.0 F H 96 18 151/79 H 94 06/11/17 22:52 06/11/17 22:52 06/11/17 22:52 06/11/17 22:52 06/11/17 22:52 Oxygen Flow Rate (L/min) 2 Oxygen Delivery Method Room Air Weight: 168 lb 13.985 oz Body Mass Index (BMI) 26.4 Intake and Output for Last 24 Hours 06/09/17 06/10/17 06/11/17 23:59 23:59 23:59 Intake Total 3919 / 3919 4566 / 4566 2303 / 2303 Output Total 6700 / 6700 3850 / 3850 3450 / 3450 Balance -2781 / -2781 716 / 716 -1147 / -1147 Microbiology Past 72 Hours 06/08/17 09:00 Gram Stain - Final Bone - Ischium Wound Culture - Final Staphylococcus aureus Achromobacter species Anaerobic Culture - Preliminary Checking for anaerobes, further studies to follow. 06/08/17 09:00 Gram Stain - Final Tissue - Other Wound Culture - Final Achromobacter xylosoxidans Staphylococcus aureus Anaerobic Culture - Preliminary Checking for anaerobes, further studies to follow. 06/10/17 19:55 C. difficile DNA Amplification - Final Stool Laboratory Tests Past 24 Hrs 06/11/17 06/11/17 06/11/17 04:43 04:43 12:20 WBC 5.6 RBC 2.80 L Hgb 7.7 L Hct 24.4 L MCV 87.1 MCH 27.5 MCHC 31.6 L RDW 15.3 H RDW Differential 47.1 H Plt Count 309 MPV 7.4 Sodium 135 L Potassium 4.1 Chloride 99 Carbon Dioxide 32.0 Anion Gap 4 L BUN 17 Creatinine 0.48 L Estim Creat Clear Calc 142.15 Est GFR (MDRD) Af Amer 226 Est GFR (MDRD) Non-Af 187 BUN/Creatinine Ratio 35.3 H Glucose 148 H Calcium 8.0 L Blood Type O POSITIVE Antibody Screen NEGATIVE Crossmatch See Detail Medical Necessity - Tobacco Use Smoking Status: Former smoker Assessment/Plan 1. 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 2. Late effect radiation right gluteal/ischial area. 3. Clinical osteomyelitis. 4. History of anal CA treated with chemotherapy and radiation therapy. 5. MRSA. 6. 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 7. Anemia of chronic disease, acute on chronic. VAC in place. Minimal drainage in the canister. No bleeding seen. To be changed three times per week at 150 mmHg continuous suction. Operative culture shows Achromobacter xylosoxidans and Staphylococcus aureus. Will begin Zosyn. Will continue the Vancomycin. Will stop the Unasyn and Cefepime. Anticipate care home IV antibiotics and a PICC line is in place. Pathology is pending. Hgb has decreased from 8.2 to 7.7. He has anemia of chronic disease, acute on chronic. There was some operative blood loss of 300 ml as well as IV dilution as his I's/O's are positive almost 5 liters. Will transfuse PRBC. Prealbumin was 18.2. Encourage nutritional supplementation with protein to help the healing process. Recommend after discharge going to an ECF because of the need for the VAC and IV antibiotics in preparation for further surgery for wound closure with muscle flaps. The operative excision was more extensive than anticipated.
[2017-06-12] VITALS (7 sets, daily range): BP systolic 117–131; BP diastolic 55–65; PULSE 75–85; RESP 12–18; TEMP 36.6–36.9; O2SAT 93–97
[2017-06-12] MEDS: HYDROmorphone 1 MG/ML Syringe IV ×3 (00:20→20:00)
[2017-06-12] MEDS: 0.9% NaCl Peripheral Flush Adult/Peds IV ×3 (06:05→08:48)
[2017-06-12] MEDS: busPIRone 5 MG Tablet PO ×3 (06:29→21:02)
[2017-06-12] MEDS: Piperacil/Tazobactam 3.375 GM/50 ML ML IV ×3 (06:29→21:00)
--- NOTE | 2017-06-12 06:33 | NURSING ---
Read and agree with RUBEN Alonzobiodiesel engine specialist.
[2017-06-12 06:52] LABS: ALB/GLOB Ratio 0.7 RATIO (0.9-2.4); AST(SGOT) 25 U/L (15-37); Alanine Aminotransfer ALT/SGPT 28 U/L (16-61); Albumin, Serum 2.6 g/dL (3.2-5.0); Alkaline Phosphatase 66 U/L (45-117); Anion Gap 6 (5-15); BUN 15 mg/dL (7-18); BUN/Creat Ratio 26.5 RATIO (10-20); Calcium,Total 8.3 mg/dL (8.5-10.1); Chloride 97 mmol/L (98-107); Creatinine, Serum 0.57 mg/dL (0.70-1.30); EST Glomerular Filtration Rate 155 mL/min (>60); Est Glom Filt Rate - Afr Amer 187 mL/min (>60); Globulin 3.7 g/dL (2.2-4.2); Glucose 99 mg/dL (74-106); Potassium 4.1 mmol/L (3.5-5.1); Protein, Total 6.3 g/dL (6.4-8.2); Sodium Level 135 mmol/L (136-145)
[2017-06-12 06:58] LABS: Erythrocyte Sedimentation Rate 54 mm/hr (0-20)
[2017-06-12 07:14] LABS: Hematocrit 29.1 % (40-54); Hemoglobin 9.2 g/dl (13.0-16.5); Mean Corp Hgb Conc 31.6 g/gl (32-36); Mean Corpuscular Hgb 26.9 pg (27.0-32.0); Mean Corpuscular Volume 85.1 fL (80-94); Mean Platelet Vol. 7.7 fl (6.2-12.0); Platelet Count 268 K/mm3 (150-450); RBC Distribution Width CV 15.7 % (11.6-14.6); RBC Distribution Width SD 48.6 fl (35.1-43.9); Red Blood Count 3.42 M/mm3 (4.6-6.2); White Blood Count 6.5 K/mm3 (4.4-11.0)
[2017-06-12 07:18] LABS: Scan Indicated on CBC? Y/N NO
--- NOTE | 2017-06-12 07:23 | NURSING ---
Notified RUBEN Yun that red power port lumen is clogged. She will look at it.
[2017-06-12] MEDS: Iron Polysaccharide Complex 150 MG CAPSULE PO (08:41)
[2017-06-12] MEDS: Multivitamins,Therapeutic Tablet 1 TABLET PO (08:42)
[2017-06-12] MEDS: Gabapentin 800 MG Tablet PO ×3 (08:42→17:33)
--- NOTE | 2017-06-12 09:33 | CASEMGMT ---
Social Work Note Social Work faxed updated clinicals to [facility] and [facility]. [employer] placed call to Skylar at [facility] informing her that pt's first choice is [facility] but that another facility will accept pt if needed. SW asked Skylar to call this worker back when she knows if they will accept pt or will not accept pt. [employer] will continue to follow. Plan: Discharge to [facility] or [facility] pending acceptance and pre-cert from [facility] and/or pre-cert from [facility]. Caroline Og ASP NET DEVELOPER, LAUNCH MANAGER
[2017-06-12] MEDS: Ibuprofen 400 MG Tablet 800 MG PO ×2 (09:54→19:02)
[2017-06-12] MEDS: Fluticasone 0.05% 1 SPRAY NASAL.SRY 2 SPRAY NASAL ×2 (09:55→21:03)
[2017-06-12] MEDS: Metoprolol Tartrate 25 MG Tablet PO ×2 (09:55→21:03)
[2017-06-12] MEDS: TRIAMTERENE PO (09:56)
[2017-06-12] MEDS: HYDROCHLOROTHIAZID PO (09:56)
[2017-06-12] MEDS: Alteplase 2 MG/2 ML Vial IV (10:39)
[2017-06-12] MEDS: Lactated Ringers 1,000 ML 60 ML IV (11:55)
--- NOTE | 2017-06-12 13:02 | NURSING ---
wound photo: right ischium
--- NOTE | 2017-06-12 13:53 | PCM.PN.SRG ---
Subjective: Postop #4 Patient is resting comfortably. - Physical Exam General: Alert, Oriented x3 HEENT: PERRLA, EOMI Neck: Supple Lungs: Clear to auscultation Cardiovascular: Regular rate, Regular Rhythm Abdomen: Soft, Non-Distended Skin: Ulcer/ Wound - right ischial radiation wound is stable. VAC changed today. No bleeding seen. Neurological: Cranial nerves II-XII grossly intact Psych/Mental Status: Normal Affect, Appropriate Vital Signs Temp Pulse Resp BP Pulse Ox 97.8 F 79 16 126/65 H 93 06/12/17 09:00 06/12/17 09:55 06/12/17 09:00 06/12/17 09:55 06/12/17 09:00 Oxygen Flow Rate (L/min) 2 Oxygen Delivery Method Room Air Weight: 168 lb 13.985 oz Body Mass Index (BMI) 26.4 Intake and Output for Last 24 Hours 06/10/17 06/11/17 06/12/17 23:59 23:59 23:59 Intake Total 4566 / 4566 2703 / 2703 2774 / 2774 Output Total 3850 / 3850 3450 / 3450 5325 / 5325 Balance 716 / 716 -747 / -747 -2551 / -2551 Microbiology Past 72 Hours 06/08/17 09:00 Gram Stain - Final Bone - Ischium Wound Culture - Final Staphylococcus aureus Achromobacter species Anaerobic Culture - Preliminary Gram negative jesus 06/08/17 09:00 Gram Stain - Final Tissue - Other Wound Culture - Final Achromobacter xylosoxidans Staphylococcus aureus Anaerobic Culture - Preliminary Gram negative jesus 06/10/17 19:55 C. difficile DNA Amplification - Final Stool Laboratory Tests Past 24 Hrs 06/11/17 06/12/17 06/12/17 12:20 05:50 05:50 WBC 6.5 RBC 3.42 L Hgb 9.2 L Hct 29.1 L MCV 85.1 MCH 26.9 L MCHC 31.6 L RDW 15.7 H RDW Differential 48.6 H Plt Count 268 MPV 7.7 ESR 54 H Sodium 135 L Potassium 4.1 Chloride 97 L Carbon Dioxide 32.0 Anion Gap 6 BUN 15 Creatinine 0.57 L Estim Creat Clear Calc 119.70 Est GFR (MDRD) Af Amer 187 Est GFR (MDRD) Non-Af 155 BUN/Creatinine Ratio 26.5 H Glucose 99 Calcium 8.3 L Total Bilirubin 0.10 L AST 25 ALT 28 Alkaline Phosphatase 66 C-React Prot Ext Range 85.90 H Total Protein 6.3 L Albumin 2.6 L Globulin 3.7 Albumin/Globulin Ratio 0.7 L Blood Type O POSITIVE Antibody Screen NEGATIVE Crossmatch See Detail Medical Necessity - Tobacco Use Smoking Status: Former smoker Assessment/Plan 1. 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 2. Late effect radiation right gluteal/ischial area. 3. Clinical osteomyelitis. 4. History of anal CA treated with chemotherapy and radiation therapy. 5. MRSA. 6. 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 7. Anemia of chronic disease, acute on chronic. VAC changed today. No bleeding seen. To be changed three times per week at 150 mmHg continuous suction. Operative culture shows Achromobacter xylosoxidans and Staphylococcus aureus. Will continue Zosyn. Will stop the Vancomycin. We are checking with Microbiology to see if Cefepime is sensitive to the Achromobacter since it is only twice a day which would be easier at the ECF. Zosyn is 3 times per day. Anaerobic culture shows a Gram negative jesus. If Cefepime is sensitive to the Achromobacter, may add Flagyl for the Anaerobe. Otherwise the Zosyn should cover the Anaerobe. Anticipate long-term IV antibiotics and a PICC line is in place. Pathology is pending. Hgb has increased from 7.7 to 9.2 after the PRBC. He has anemia of chronic disease, acute on chronic. There was some operative blood loss of 300 ml as well as IV dilution as his I's/O's are positive about 2 liters which is decreasing. Prealbumin was 18.2. Encourage nutritional supplementation with protein to help the healing process. Recommend after discharge going to an ECF because of the need for the VAC and IV antibiotics in preparation for further surgery for wound closure with muscle flaps. The operative excision was more extensive than anticipated. Awaiting ECF placement.
[2017-06-12] MEDS: oxyCODONE 5 MG Tablet 10 MG PO ×2 (13:57→19:02)
[2017-06-12] MEDS: Ipratropium 0.5 MG/2.5 ML SOLUTION INHALATION (19:23)
[2017-06-12] MEDS: Ezetimibe 10 MG Tablet PO (21:02)
[2017-06-12] MEDS: buPROPion (XL) 300 MG TABLET.XL PO (21:02)
[2017-06-12] MEDS: Escitalopram Oxalate 10 MG Tablet PO (21:02)
[2017-06-12] MEDS: Pantoprazole Sodium 40 MG Tablet PO (21:02)
[2017-06-13] MEDS: Acetaminophen 325 MG Tablet 650 MG PO (00:26)
[2017-06-13] MEDS: HYDROmorphone 1 MG/ML Syringe IV ×2 (02:22→20:25)
[2017-06-13 02:47] VITALS: BP 140/87; PULSE 89; RESP 18; TEMP 36.9; O2SAT 94
[2017-06-13] MEDS: Lactated Ringers 1,000 ML 60 ML IV ×2 (04:07→20:34)
[2017-06-13] MEDS: Piperacil/Tazobactam 3.375 GM/50 ML ML IV ×3 (05:20→21:05)
[2017-06-13] MEDS: busPIRone 5 MG Tablet PO ×3 (05:21→20:41)
[2017-06-13] MEDS: oxyCODONE 5 MG Tablet 10 MG PO ×3 (05:23→17:51)
[2017-06-13 07:50] VITALS: BP 149/79; PULSE 81; RESP 16; TEMP 36.7; O2SAT 95
[2017-06-13] MEDS: Gabapentin 800 MG Tablet PO ×3 (07:57→17:51)
[2017-06-13] MEDS: Multivitamins,Therapeutic Tablet 1 TABLET PO (07:58)
[2017-06-13 07:59] VITALS: PULSE 81
[2017-06-13] MEDS: Metoprolol Tartrate 25 MG Tablet PO ×2 (07:59→20:40)
[2017-06-13] MEDS: Iron Polysaccharide Complex 150 MG CAPSULE PO (07:59)
[2017-06-13] MEDS: Fluticasone 0.05% 1 SPRAY NASAL.SRY 2 SPRAY NASAL ×2 (08:01→20:41)
--- NOTE | 2017-06-13 08:49 | NURSING ---
Awaiting pre-cert to [facility]. If pre-cert comes through today, patient should be able to shower since the wound VAC dressing will be removed prior to discharge. PICC line dressing can be wrapped. Pt was upset that he did not get to shower yesterday. wound VAC dressing is intact with good seal noted at 150mmHg low continuous suction. patient states that the dressing was reinforced last evening as well as this morning. will monitor.
[2017-06-13] MEDS: HYDROCHLOROTHIAZID PO (10:19)
[2017-06-13] MEDS: TRIAMTERENE PO (10:19)
--- NOTE | 2017-06-13 12:26 | CASEMGMT ---
Social Work Note SHAHANA received call from Tala at [facility] [place] stating that the insurance company is asking which antibiotics pt will be on when he discharges and for how long. SHAHANA informed Tala that this worker will call Dr. Mesa to ask about discharge IV antiobiotics and give her a call back. SHAHANA placed call to Dr Mesa's office and spoke with Casi. Per Casi, pt will be discharged on Zosyn for 38 days. SHAHANA called Tala at [facility] to update with information regarding Zosyn. SHAHANA informed Tala that pt will be discharged on Zosyn for 38 days. Per Tala she will verbally provide this update to the insurance company. Plan: [facility] in [place] pending pre-cert Caroline Og CHIEF PRIVACY OFFICER, SLOT MACHINE DEPARTMENT FLOORPERSON
[2017-06-13 14:10] VITALS: BP 134/78; PULSE 85; RESP 16; TEMP 37; O2SAT 92
[2017-06-13] MEDS: DiphenhydrAMINE 25 MG Capsule PO ×2 (14:13→21:44)
--- NOTE | 2017-06-13 16:37 | CASEMGMT ---
Social Work Note SW faxed script to Tala at [facility]. Plan: [facility] pending pre-cert. Caroline Og WELDER PRODUCTION LINE GAS, INTERVENTION ANALYST
[2017-06-13 20:10] VITALS: BP 162/79; PULSE 93; RESP 18; TEMP 37.7; O2SAT 97
[2017-06-13] MEDS: Loperamide 2 MG Capsule PO (20:32)
[2017-06-13 20:40] VITALS: BP 162/79; PULSE 93
[2017-06-13] MEDS: Pantoprazole Sodium 40 MG Tablet PO (20:40)
[2017-06-13] MEDS: Ezetimibe 10 MG Tablet PO (20:40)
[2017-06-13] MEDS: Escitalopram Oxalate 10 MG Tablet PO (20:41)
[2017-06-13] MEDS: buPROPion (XL) 300 MG TABLET.XL PO (20:47)
--- NOTE | 2017-06-13 23:36 | PCM.PN.SRG ---
Subjective: Postop #5 Patient is resting comfortably. Awaiting ECF placement. - Physical Exam General: Alert, Oriented x3 HEENT: PERRLA, EOMI Neck: Supple Lungs: Clear to auscultation Cardiovascular: Regular rate, Regular Rhythm Abdomen: Soft, Non-Distended Skin: Ulcer/ Wound - VAC in place. Right ischial radiation wound is stable. Minimal drainage in the canister. Neurological: Cranial nerves II-XII grossly intact Psych/Mental Status: Normal Affect, Appropriate Vital Signs Temp Pulse Resp BP Pulse Ox 100 F H 93 18 162/79 H 97 06/13/17 20:10 06/13/17 20:40 06/13/17 20:10 06/13/17 20:40 06/13/17 20:10 Oxygen Flow Rate (L/min) 2 Oxygen Delivery Method Room Air Weight: 168 lb 13.985 oz Body Mass Index (BMI) 26.4 Intake and Output for Last 24 Hours 06/11/17 06/12/17 06/13/17 23:59 23:59 23:59 Intake Total 2703 / 2703 4939 / 4939 2730 / 2730 Output Total 3450 / 3450 8625 / 8625 4700 / 4700 Balance -747 / -747 -3686 / -3686 -1969 / -1969 Microbiology Past 72 Hours 06/08/17 09:00 Gram Stain - Final Tissue - Other Wound Culture - Final Achromobacter xylosoxidans Staphylococcus aureus Anaerobic Culture - Final Bacteroides fragilis group 06/08/17 09:00 Gram Stain - Final Bone - Ischium Wound Culture - Final Staphylococcus aureus Achromobacter species Anaerobic Culture - Final Bacteroides fragilis 06/10/17 19:55 C. difficile DNA Amplification - Final Stool Medical Necessity - Tobacco Use Smoking Status: Former smoker Assessment/Plan 1. 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 2. Late effect radiation right gluteal/ischial area. 3. Clinical osteomyelitis. 4. History of anal CA treated with chemotherapy and radiation therapy. 5. MRSA. 6. 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 7. Anemia of chronic disease, acute on chronic. VAC changed today. No bleeding seen. To be changed three times per week at 150 mmHg continuous suction. Operative culture shows Achromobacter xylosoxidans and Staphylococcus aureus. The Anaerobe was Bacteroides fragilis. Will continue Zosyn at the ECF. Anticipate penitentiary IV antibiotics and a PICC line is in place. Pathology is pending. Hgb has increased from 7.7 to 9.2 after the PRBC. He has anemia of chronic disease, acute on chronic. There was some operative blood loss of 300 ml as well as IV dilution initially but his I's/O's have normalized. Prealbumin was 18.2. Encourage nutritional supplementation with protein to help the healing process. Recommend after discharge going to an ECF because of the need for the VAC and IV antibiotics in preparation for further surgery for wound closure with muscle flaps. The operative excision was more extensive than anticipated. Awaiting ECF placement.
[2017-06-14] MEDS: oxyCODONE 5 MG Tablet 10 MG PO ×4 (00:02→15:20)
[2017-06-14 03:33] VITALS: BP 148/78; PULSE 81; RESP 18; TEMP 37.2; O2SAT 96; O2SAT 99
[2017-06-14] MEDS: 0.9% NaCl Peripheral Flush Adult/Peds IV (05:55)
[2017-06-14] MEDS: Piperacil/Tazobactam 3.375 GM/50 ML ML IV ×2 (06:05→13:47)
[2017-06-14] MEDS: busPIRone 5 MG Tablet PO ×2 (06:07→13:25)
[2017-06-14 06:23] LABS: Hematocrit 32.8 % (40-54); Hemoglobin 10.3 g/dl (13.0-16.5); Mean Corp Hgb Conc 31.4 g/gl (32-36); Mean Corpuscular Hgb 27.1 pg (27.0-32.0); Mean Corpuscular Volume 86.3 fL (80-94); Mean Platelet Vol. 7.6 fl (6.2-12.0); Platelet Count 301 K/mm3 (150-450); RBC Distribution Width CV 15.5 % (11.6-14.6); RBC Distribution Width SD 48.6 fl (35.1-43.9); White Blood Count 6.9 K/mm3 (4.4-11.0)
[2017-06-14 06:49] LABS: Scan Indicated on CBC? Y/N NO
[2017-06-14 07:18] VITALS: PULSE 78; RESP 18; O2SAT 97
[2017-06-14] MEDS: Ipratropium 0.5 MG/2.5 ML SOLUTION INHALATION (07:18)
[2017-06-14] MEDS: Loperamide 2 MG Capsule PO (07:59)
[2017-06-14 08:11] VITALS: BP 136/70; PULSE 80; RESP 18; TEMP 37.2; O2SAT 95
--- NOTE | 2017-06-14 08:54 | CASEMGMT ---
Social Work Note SHAHANA received call from Tala at [facility] stating that they received pre-cert and pt is approved. SHAHANA called Dr. Mesa and left a message regarding accepted pre-cert. SHAHANA will fax discharge summary, transfer to extended care, medication list and scripts when obtained. Edi Manager will continue to follow to assist with discharge. Plan: [facility] Caroline gO RAPIER INSERTION LOOM FIXER, COBBLER UPPER
[2017-06-14] MEDS: Iron Polysaccharide Complex 150 MG CAPSULE PO (09:19)
[2017-06-14] MEDS: Gabapentin 800 MG Tablet PO ×2 (09:20→11:13)
[2017-06-14] MEDS: Multivitamins,Therapeutic Tablet 1 TABLET PO (09:20)
[2017-06-14] MEDS: Fluticasone 0.05% 1 SPRAY NASAL.SRY 2 SPRAY NASAL (09:27)
[2017-06-14 09:30] VITALS: BP 136/70; PULSE 80
[2017-06-14] MEDS: Metoprolol Tartrate 25 MG Tablet PO (09:30)
[2017-06-14 09:46] VITALS: PULSE 80; RESP 18; O2SAT 95
[2017-06-14 10:11] LABS: BUN 19 mg/dL (7-18); Creatinine, Serum 0.56 mg/dL (0.70-1.30); Estimated Creatinine Clearance 121.84 ml/min; Glucose 95 mg/dL (74-106)
[2017-06-14] MEDS: Ibuprofen 400 MG Tablet 800 MG PO (10:11)
[2017-06-14 10:12] LABS: Anion Gap 7 (5-15); BUN/Creat Ratio 33.7 RATIO (10-20); Calcium,Total 8.6 mg/dL (8.5-10.1); Chloride 95 mmol/L (98-107); EST Glomerular Filtration Rate 155 mL/min (>60); Est Glom Filt Rate - Afr Amer 188 mL/min (>60); Potassium 4.1 mmol/L (3.5-5.1); Sodium Level 135 mmol/L (136-145)
--- NOTE | 2017-06-14 10:44 | NURSING ---
RUBEN Velazquez CM stated that pre-cert was received so patient will be going to the half-way today. in to talk with patient. patient was up on BSC and wound VAC was alarming leak. RUBEN Abreu states she had fixed it twice already this morning. patient is wanting to shower, so the wound VAC was disconnected until patient is finished showering then a wet to dry dressing will be applied. the wound VAC will be reapplied at the half-way today. patient aware and very happy to be able to shower.
[2017-06-14] MEDS: TRIAMTERENE PO (11:12)
[2017-06-14] MEDS: HYDROCHLOROTHIAZID PO (11:12)
[2017-06-14 13:12] VITALS: BP 145/78; PULSE 108; RESP 18; TEMP 36.4; O2SAT 96
--- NOTE | 2017-06-14 13:31 | PCM.PN.SRG ---
Subjective: Postop #6 Patient is resting comfortably. ECF placement has been approved. - Physical Exam General: Alert, Oriented x3 HEENT: PERRLA, EOMI Neck: Supple Lungs: Clear to auscultation Cardiovascular: Regular rate, Regular Rhythm Abdomen: Soft, Non-Distended Skin: Ulcer/ Wound - VAC in place. Right ischial radiation wound is stable. Minimal drainage in the canister. Neurological: Cranial nerves II-XII grossly intact Psych/Mental Status: Normal Affect, Appropriate Vital Signs Temp Pulse Resp BP Pulse Ox 97.6 F L 108 H 18 145/78 H 96 06/14/17 13:12 06/14/17 13:12 06/14/17 13:12 06/14/17 13:12 06/14/17 13:12 Oxygen Flow Rate (L/min) 2 Oxygen Delivery Method Room Air Weight: 168 lb 13.985 oz Body Mass Index (BMI) 26.4 Intake and Output for Last 24 Hours 06/12/17 06/13/17 06/14/17 23:59 23:59 23:59 Intake Total 4939 / 4939 2730 / 2730 2698 / 2698 Output Total 8625 / 8625 4700 / 4700 2700 / 2700 Balance -3686 / -3686 -1970 / -1970 -2 / -2 Microbiology Past 72 Hours 06/08/17 09:00 Gram Stain - Final Tissue - Other Wound Culture - Final Achromobacter xylosoxidans Staphylococcus aureus Anaerobic Culture - Final Bacteroides fragilis group 06/08/17 09:00 Gram Stain - Final Bone - Ischium Wound Culture - Final Staphylococcus aureus Achromobacter species Anaerobic Culture - Final Bacteroides fragilis Pathology - acute osteomyelitis. Laboratory Tests Past 24 Hrs 06/14/17 06/14/17 05:50 05:50 WBC 6.9 RBC 3.80 L Hgb 10.3 L Hct 32.8 L MCV 86.3 MCH 27.1 MCHC 31.4 L RDW 15.5 H RDW Differential 48.6 H Plt Count 301 MPV 7.6 Sodium 135 L Potassium 4.1 Chloride 95 L Carbon Dioxide 33.0 H Anion Gap 7 BUN 19 H Creatinine 0.56 L Estim Creat Clear Calc 121.84 Est GFR (MDRD) Af Amer 188 Est GFR (MDRD) Non-Af 155 BUN/Creatinine Ratio 33.7 H Glucose 95 Calcium 8.6 Medical Necessity - Tobacco Use Smoking Status: Former smoker Assessment/Plan 1. 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 2. Late effect radiation right gluteal/ischial area. 3. Acute osteomyelitis. 4. History of anal CA treated with chemotherapy and radiation therapy. 5. MRSA. 6. 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 7. Anemia of chronic disease, acute on chronic. VAC in place. Minimal drainage in the canister. No bleeding seen. To be changed three times per week at 150 mmHg continuous suction. Operative culture shows Achromobacter xylosoxidans and Staphylococcus aureus. The Anaerobe was Bacteroides fragilis. Will continue Zosyn at the ECF. Will check weekly labs while on Zosyn (CBC, CMP, ESR, CRP). 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 Pathology shows acute osteomyelitis. Hgb has increased from 7.7 to 9.2 to 10.3 after the PRBC. He has anemia of chronic disease, acute on chronic. There was some operative blood loss of 300 ml as well as IV dilution initially but his I's/O's have normalized. Prealbumin was 18.2. Encourage nutritional supplementation with protein to help the healing process. The ECF placement has been approved because of the need for the VAC and IV antibiotics in preparation for further surgery for wound closure with muscle flaps. The operative excision was more extensive than anticipated. Followup 2-3 weeks at the Wound Center. Continue Valium for spasm and Percocet for pain at the ECF.
--- NOTE | 2017-06-14 13:31 | PCM.DC ---
You will use the following diet at home:: No restrictions, Other - encourage nutritional supplementation with protein to help the healing process. Discharge Activity: May Shower - on the days the vac is changed., - - may ambulate with assist. May shower in (days): 2 - may shower on the days the vac is changed. Weight Bearing Status: Weight bearing as tolerated Additional Activity Instructions:: PT and OT to evaluate and treat for ambulation and gait training and strengthening. Call your doctor if your incision/area has: Continuous Slow Oozing, Sudden Increased Bleeding, Increased Pain/ Swelling, Increased Redness, Foul Smelling Discharge, Swelling at the incision site Call your doctor if you observe: Fever of 101 or Higher, Coldness, Increased Pain, Shortness of breath, Chest pain, Calf discomfort, Uncontrolled pain Suture Line Care: - - vac changes three times per week at 150 mmHg continuous suction. Change Dressing in (Days):: 2 - vac changes three times per week. Cleanse incision/area with: Soap & Water - may cleanse the wound with soap and water at the time of the vac change., - - may take a shower on the days the vac is changed. Pending Tests on Discharge: ECF to draw CBC, CMP, ESR, CRP qMonday. please fax results to wound center at [phone]. Allergies/Adverse Reactions: Allergies povidone-iodine [From Betadine] Allergy (Verified 06/06/17 14:24) Hives Jneubuy-Fqy-Gtn Reductase Inhibitor Adverse Reaction (Verified 06/06/17 14:24) MESSED MY LIVER UP adhesive tape Allergy (Uncoded 06/06/17 14:24) Itching/rash Medications to take at Discharge Albuterol Inhaler [Ventolin Hfa] 2 puff INHALATION Q4H PRN PRN 03/22/16 Aspirin [Aspirin, Baby] 81 mg PO DAILY@0800 03/22/16 Escitalopram Oxalate [Lexapro] 10 mg PO QHS 03/22/16 Ezetimibe [Zetia] 10 mg PO QHS 03/22/16 Fluticasone 0.05% [Flonase Nasal [place]] 2 spray NASAL BID 03/22/16 Multivitamin [Multiple Vitamins] 1 each PO DAILY 03/22/16 Omeprazole [Prilosec] 40 mg PO QHS 03/22/16 buPROPion XL [Wellbutrin Xl] 300 mg PO QHS 03/22/16 busPIRone [Buspar] 5 mg PO TID 03/22/16 Tiotropium [place] [Spiriva Respimat] 2 puff INHALATION DAILY 10/20/16 Cholecalciferol (Vitamin D3) [Vitamin D3] 1,000 unit PO DAILY 12/09/16 Tizanidine HCl [Zanaflex] 4 mg PO Q6H PRN PRN 12/27/16 Metoprolol Tartrate 25 mg PO BID #60 tablet 01/04/17 Nutritional Supplement [Chuy - ORANGE FLAVOR] 1 packet PO BIDCM packet 01/04/17 Acetaminophen [Tylenol Tablet] 650 mg PO Q6H PRN PRN tablet 01/13/17 Gabapentin [Neurontin] 800 mg PO TIDCM tablet 01/13/17 Ibuprofen [Motrin] 800 mg PO TID 06/06/17 Triamterene 37.5MG/Hctz 25MG [Dyazide (G)] 0.5 cap PO DAILY 06/06/17 Testosterone [Androderm 2mg/24 hr] 1 each TD 06/08/17 Piperacil/Tazobactam [Zosyn] 3.375 gm IV Q8 40 Days #120 dose 06/13/17 Diazepam [Valium] 5 mg PO 4X/DAY PRN PRN #30 tab 06/14/17 DiphenhydrAMINE [Benadryl] 25 mg PO Q6H PRN capsule 06/14/17 Docusate Sodium [Colace] 100 mg PO BID capsule 06/14/17 Ensure Enlive 120 ml PO 4X/DAY liquid 06/14/17 Heparin Sodium,Porcine/Pf [Heparin 500 Unit/5 ml (100/ml)] 500 unit IV UD PRN syringe 06/14/17 Ibuprofen [Motrin] 800 mg PO Q8H PRN PRN tablet 06/14/17 Ipratropium [Atrovent Aerosols] 0.5 mg INHALATION Q6HWA.RT solution 06/14/17 Iron Polysaccharide Complex [Ferrex 150] 150 mg PO DAILYCM capsule 06/14/17 Loperamide [Imodium] 2 mg PO Q4H PRN PRN capsule 06/14/17 Nutritional Supplement [Chuy - ORANGE FLAVOR] 1 packet PO BIDCM packet 06/14/17 Oxycodone HCl/Acetaminophen [Percocet 5/325] 1 - 2 tab PO 4X/DAY PRN PRN 5 Days #40 tab 06/14/17 Testosterone [Androderm 2mg/24 hr] 1 each TD DAILY patch.td24 06/14/17 proMETHazine tablet [Phenergan tablet] 25 mg PO Q4H PRN PRN tablet 06/14/17 The following prescriptions were given: Diazepam [Valium] 5 mg PO 4X/DAY PRN PRN #30 tab PRN Reason: Spasms Oxycodone HCl/Acetaminophen [Percocet 5/325] 1 - 2 tab PO 4X/DAY PRN PRN 5 Days #40 tab PRN Reason: Pain Piperacil/Tazobactam [Zosyn] 3.375 gm IV Q8 40 Days #120 dose Primary Care Physician: Winnie Gonzales MD [Primary Care Provider] - Please Follow Up With: Venkat Mesa MD When: 2-3 weeks at wound center. Call [phone] for appt. Proposed Discharge Date: 06/14/17
--- NOTE | 2017-06-14 13:36 | DCINST_ITS ---
You will use the following diet at home:: No restrictions, Other - encourage nutritional supplementation with protein to help the healing process. Discharge Activity: May Shower - on the days the vac is changed., - - may ambulate with assist. May shower in (days): 2 - may shower on the days the vac is changed. Weight Bearing Status: Weight bearing as tolerated Additional Activity Instructions:: PT and OT to evaluate and treat for ambulation and gait training and strengthening. Call your doctor if your incision/area has: Continuous Slow Oozing, Sudden Increased Bleeding, Increased Pain/ Swelling, Increased Redness, Foul Smelling Discharge, Swelling at the incision site Call your doctor if you observe: Fever of 101 or Higher, Coldness, Increased Pain, Shortness of breath, Chest pain, Calf discomfort, Uncontrolled pain Suture Line Care: - - vac changes three times per week at 150 mmHg continuous suction. Change Dressing in (Days):: 2 - vac changes three times per week. Cleanse incision/area with: Soap & Water - may cleanse the wound with soap and water at the time of the vac change., - - may take a shower on the days the vac is changed. Pending Tests on Discharge: ECF to draw CBC, CMP, ESR, CRP qMonday. please fax results to wound center at [phone]. Allergies/Adverse Reactions: Allergies povidone-iodine [From Betadine] Allergy (Verified 06/06/17 14:24) Hives Umdqfar-Rqe-Pba Reductase Inhibitor Adverse Reaction (Verified 06/06/17 14:24) MESSED MY LIVER UP adhesive tape Allergy (Uncoded 06/06/17 14:24) Itching/rash Medications to take at Discharge Albuterol Inhaler [Ventolin Hfa] 2 puff INHALATION Q4H PRN PRN 03/22/16 Aspirin [Aspirin, Baby] 81 mg PO DAILY@0800 03/22/16 Escitalopram Oxalate [Lexapro] 10 mg PO QHS 03/22/16 Ezetimibe [Zetia] 10 mg PO QHS 03/22/16 Fluticasone 0.05% [Flonase Nasal [place]] 2 spray NASAL BID 03/22/16 Multivitamin [Multiple Vitamins] 1 each PO DAILY 03/22/16 Omeprazole [Prilosec] 40 mg PO QHS 03/22/16 buPROPion XL [Wellbutrin Xl] 300 mg PO QHS 03/22/16 busPIRone [Buspar] 5 mg PO TID 03/22/16 Tiotropium [place] [Spiriva Respimat] 2 puff INHALATION DAILY 10/20/16 Cholecalciferol (Vitamin D3) [Vitamin D3] 1,000 unit PO DAILY 12/09/16 Tizanidine HCl [Zanaflex] 4 mg PO Q6H PRN PRN 12/27/16 Metoprolol Tartrate 25 mg PO BID #60 tablet 01/04/17 Nutritional Supplement [Chuy - ORANGE FLAVOR] 1 packet PO BIDCM packet Acetaminophen [Tylenol Tablet] 650 mg PO Q6H PRN PRN tablet 01/13/17 Gabapentin [Neurontin] 800 mg PO TIDCM tablet 01/13/17 Ibuprofen [Motrin] 800 mg PO TID 06/06/17 Triamterene 37.5MG/Hctz 25MG [Dyazide (G)] 0.5 cap PO DAILY 06/06/17 Testosterone [Androderm 2mg/24 hr] 1 each TD 06/08/17 Piperacil/Tazobactam [Zosyn] 3.375 gm IV Q8 40 Days #120 dose 06/13/17 Diazepam [Valium] 5 mg PO 4X/DAY PRN PRN #30 tab 06/14/17 DiphenhydrAMINE [Benadryl] 25 mg PO Q6H PRN capsule 06/14/17 Docusate Sodium [Colace] 100 mg PO BID capsule 06/14/17 Ensure Enlive 120 ml PO 4X/DAY liquid 06/14/17 Heparin Sodium,Porcine/Pf [Heparin 500 Unit/5 ml (100/ml)] 500 unit IV UD PRN syringe 06/14/17 Ibuprofen [Motrin] 800 mg PO Q8H PRN PRN tablet 06/14/17 Ipratropium [Atrovent Aerosols] 0.5 mg INHALATION Q6HWA.RT solution 06/14/17 Iron Polysaccharide Complex [Ferrex 150] 150 mg PO DAILYCM capsule 06/14/17 Loperamide [Imodium] 2 mg PO Q4H PRN PRN capsule 06/14/17 Nutritional Supplement [Chuy - ORANGE FLAVOR] 1 packet PO BIDCM packet Oxycodone HCl/Acetaminophen [Percocet 5/325] 1 - 2 tab PO 4X/DAY PRN PRN 5 Days #40 tab 06/14/17 Testosterone [Androderm 2mg/24 hr] 1 each TD DAILY patch.td24 06/14/17 proMETHazine tablet [Phenergan tablet] 25 mg PO Q4H PRN PRN tablet 06/14/17 The following prescriptions were given: Diazepam [Valium] 5 mg PO 4X/DAY PRN PRN #30 tab PRN Reason: Spasms Oxycodone HCl/Acetaminophen [Percocet 5/325] 1 - 2 tab PO 4X/DAY PRN PRN 5 Days #40 tab PRN Reason: Pain Piperacil/Tazobactam [Zosyn] 3.375 gm IV Q8 40 Days #120 dose Primary Care Physician: Winnie Gonzales MD [Primary Care Provider] - Please Follow Up With: Venkat Mesa MD When: 2-3 weeks at wound center. Call [phone] for appt. Proposed Discharge Date: 06/14/17
[2017-06-14] MEDS: HYDROmorphone 1 MG/ML Syringe IV (13:47)
--- NOTE | 2017-06-14 14:16 | CASEMGMT ---
Social Work Note SW received signed transfer to extended facility, medication list, and scripts from Dr. Mesa. SHAHANA faxed transfer to extended facility, medication list, and scripts to [facility]. SHAHANA set up transportation through [facility] for 3:00pm. SHAHANA placed call to [facility] and left a message for Tala stating that this worker faxed over discharge paperwork and pt will be discharging from hospital at 3:00pm. SHAHANA submitted completed HENS. Original copies of discharge paperwork in SNF folder and copies on pt's chart. SHAHANA let RN Lois, Charge Nurse Diane and pt know of discharge time. Plan: 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
--- NOTE | 2017-06-14 14:33 | PCA ---
pt out walking in the [place]
--- NOTE | 2017-06-14 15:54 | NURSING ---
report called to Barry at [facility]
--- NOTE | 2017-06-14 17:06 | PCM.DC.SUM ---
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 Acute osteomyelitis. Anemia of chronic disease, acute on chronic. - Secondary Discharge Diagnosis History of anal CA treated with chemotherapy and radiation therapy Hepatitis C carrier COPD (chronic obstructive pulmonary disease) Anxiety and depression Hypertension Hyperlipidemia GERD (gastroesophageal reflux disease) PAD (peripheral artery disease) Late effect radiation right gluteal/ischial area MRSA Hospital Course and Treatment Imaging Results: None. 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 Procedures: Blood transfusion, PICC line placement, Wound vac placement Summary of Care Provided: The patient is a 62 year old M who presents with long standing history of a nonhealing radiation pressure sore abscess ulcer right gluteal/ischial area, Stage IV. He developed an abscess last Fall that required surgery on 12/30/16 where he underwent surgical preparation right gluteal/ischial area with excision radiation pressure sore abscess wound and partial ostectomy for osteomyelitis (52.5 cm2). Operative cultures showed Pseudomonas, Staphylococcus, and Anaerobes. He was treated with Cefepime and Flagyl. Later on in the ECF, he had another culture which showed MRSA and Genna and he was treated with Doxycycline and Diflucan. He had trouble maintaining a seal with the VAC and he switched to Silver dressing changes. He also just finished HBO treatments for his history of radiation damage. His past history is significant for radiation treatments to his anal area for CA in 2002. He also had chemotherapy. He presents today for further surgical excision of his right ischial pressure sore with partial ostectomy for osteomyelitis in preparation for wound closure with muscle flaps and/or fasciocutaneous flaps. On 06/08/17, the patient underwent excision radiation pressure sore abscess ulcer right ischial area, Stage IV, with partial ostectomy for osteomyelitis. He tolerated the procedure well. He had the VAC placed the next day. The operative excision was more extensive than anticipated. It was decided to continue the VAC which would be difficult to maintain at home. Also I suspect the need for senior living IV antibiotics. Perioperatively he was treated with Vancomycin, Unasyn, and Cefepime. A PICC line was placed during hospital stay. He also had trouble voiding postop that necessitated a block catheter placement. Was able to remove it before discharge, and he was able to void without difficulty. His Prealbumin was 18.2. Nutritional supplementation with protein was encouraged to help the healing process. His Hgb drifted downward from 11.1 to 7.7 that necessitated PRBC. It improved to 10.3 at discharge. He has anemia of chronic disease, acute on chronic, and there was some operative blood loss (300 ml) as well as IV dilution as much as positive 5 liters. His I's/O's normalized at discharge. He was discharged on Iron supplementation. Was able to maintain the VAC seal during the hospital stay. He did have some diarrhea issues after surgery and the Cdiff was negative. He then responded to Imodium. His operative cultures showed Achromobacter xylosoxidans and Staphylococcus aureus and Bacteroides fragilis. His antibiotics were changed to Zosyn for the ECF. The Vancomycin, Unasyn, and Cefepime were stopped. On the day of discharge, the pathology showed acute osteomyelitis. By the 6th postop day, his ECF placement was approved and he was discharged. I anticipate 6 weeks of IV antibiotics. Will check weekly labs while on Zosyn, (CBC, CMP, ESR, CRP). Will determine at that time regarding surgical timing for wound closure. With the persistence of osteomyelitis, he may benefit from additional HBO treatments prior to proceeding with the flap for closure. Wrote scripts for Valium for spasm and Percocet for pain for the ECF. Followup at the Wound Center in 2-3 weeks. Discharge Diet: No Restrictions, - - encourage nutritional supplementation with protein to help the healing process. Discharge Activity: May Shower - on the days the vac is changed., - - may ambulate with assist. May shower in (days): 2 - may shower on the days the vac is changed. Weight Bearing Status: Weight bearing as tolerated Additional Activity Instructions:: PT and OT to evaluate and treat for ambulation and gait training and strengthening. Call your doctor if your incision/area has: Continuous Slow Oozing, Sudden Increased Bleeding, Increased Pain/ Swelling, Increased Redness, Foul Smelling Discharge, Swelling at the incision site Call your doctor if you observe: Fever of 101 or Higher, Coldness, Increased Pain, Shortness of breath, Chest pain, Calf discomfort, Uncontrolled pain Suture Line Care: - - vac changes three times per week at 150 mmHg continuous suction. Change Dressing in (Days):: 2 - vac changes three times per week. Cleanse incision/area with: Soap & Water - may cleanse the wound with soap and water at the time of the vac change., - - may take a shower on the days the vac is changed. Home Medications: Medications to take at Discharge Albuterol Inhaler [Ventolin Hfa] 2 puff INHALATION Q4H PRN PRN 03/22/16 Aspirin [Aspirin, Baby] 81 mg PO DAILY@0800 03/22/16 Escitalopram Oxalate [Lexapro] 10 mg PO QHS 03/22/16 Ezetimibe [Zetia] 10 mg PO QHS 03/22/16 Fluticasone 0.05% [Flonase Nasal [place]] 2 spray NASAL BID 03/22/16 Multivitamin [Multiple Vitamins] 1 each PO DAILY 03/22/16 Omeprazole [Prilosec] 40 mg PO QHS 03/22/16 buPROPion XL [Wellbutrin Xl] 300 mg PO QHS 03/22/16 busPIRone [Buspar] 5 mg PO TID 03/22/16 Tiotropium [place] [Spiriva Respimat] 2 puff INHALATION DAILY 10/20/16 Cholecalciferol (Vitamin D3) [Vitamin D3] 1,000 unit PO DAILY 12/09/16 Tizanidine HCl [Zanaflex] 4 mg PO Q6H PRN PRN 12/27/16 Metoprolol Tartrate 25 mg PO BID #60 tablet 01/04/17 Nutritional Supplement [Chuy - ORANGE FLAVOR] 1 packet PO BIDCM packet 01/04/17 Acetaminophen [Tylenol Tablet] 650 mg PO Q6H PRN PRN tablet 01/13/17 Gabapentin [Neurontin] 800 mg PO TIDCM tablet 01/13/17 Ibuprofen [Motrin] 800 mg PO TID 06/06/17 Triamterene 37.5MG/Hctz 25MG [Dyazide (G)] 0.5 cap PO DAILY 06/06/17 Testosterone [Androderm 2mg/24 hr] 1 each TD 06/08/17 Piperacil/Tazobactam [Zosyn] 3.375 gm IV Q8 40 Days #120 dose 06/13/17 Diazepam [Valium] 5 mg PO 4X/DAY PRN PRN #30 tab 06/14/17 DiphenhydrAMINE [Benadryl] 25 mg PO Q6H PRN capsule 06/14/17 Docusate Sodium [Colace] 100 mg PO BID capsule 06/14/17 Ensure Enlive 120 ml PO 4X/DAY liquid 06/14/17 Heparin Sodium,Porcine/Pf [Heparin 500 Unit/5 ml (100/ml)] 500 unit IV UD PRN syringe 06/14/17 Ibuprofen [Motrin] 800 mg PO Q8H PRN PRN tablet 06/14/17 Ipratropium [Atrovent Aerosols] 0.5 mg INHALATION Q6HWA.RT solution 06/14/17 Iron Polysaccharide Complex [Ferrex 150] 150 mg PO DAILYCM capsule 06/14/17 Loperamide [Imodium] 2 mg PO Q4H PRN PRN capsule 06/14/17 Nutritional Supplement [Chuy - ORANGE FLAVOR] 1 packet PO BIDCM packet 06/14/17 Oxycodone HCl/Acetaminophen [Percocet 5/325] 1 - 2 tab PO 4X/DAY PRN PRN 5 Days #40 tab 06/14/17 Testosterone [Androderm 2mg/24 hr] 1 each TD DAILY patch.[id number] 06/14/17 proMETHazine tablet [Phenergan tablet] 25 mg PO Q4H PRN PRN tablet 06/14/17 Following Prescrptions Were Given to Patient: Diazepam [Valium] 5 mg PO 4X/DAY PRN PRN #30 tab PRN Reason: Spasms Oxycodone HCl/Acetaminophen [Percocet 5/325] 1 - 2 tab PO 4X/DAY PRN PRN 5 Days #40 tab PRN Reason: Pain Piperacil/Tazobactam [Zosyn] 3.375 gm IV Q8 40 Days #120 dose Primary Care Physician: Winnie Gonzales MD [Primary Care Provider] - Please Follow Up With: Venkat Mesa MD When: 2-3 weeks at wound center. Call [phone] for appt. Pending Tests Upon Discharge: ECF to draw CBC, CMP, ESR, CRP qMonday. please fax results to wound center at [phone]. Disposition: Long-Term facility Minutes spent on discharge:: 40 Patient Condition:: Stable Medical Necessity - Tobacco Use Smoking Status: Former smoker Meaningful Use Info Meaningful Use Diagnoses (Choose all that apply): None applicable
--- NOTE | 2017-06-15 16:36 | CASEMGMT ---
RUBEN CM discharge follow-up phone call deferred due to patient was transitioned to SNF at discharge. HERI Parikh, RN-BC, CCM
== END 2017-06-14 15:45 | disposition skilled nursing facility (03) | DRG 468 ==
LOC: MS3 14:01 → SDC 14:20 → MS3 14:20
PROVIDERS: Admitting Provider Surgery; Family Provider Internal Medicine; PCP Internal Medicine; Visit Provider Surgery
PROC: 0QB20ZZ Excision of Right Pelvic Bone, Open Approach (ICD-10-PCS; principal; 2017-06-08 08:15)
DX: L89.314 Pressure ulcer of right buttock, stage 4 (principal); M86.18 Other acute osteomyelitis, other site; B18.2 Chronic viral hepatitis C; J44.9 Chronic obstructive pulmonary disease, unspecified; D63.8 Anemia in other chronic diseases classified elsewhere; B95.61 Methicillin susceptible Staphylococcus aureus infection as the cause of diseases classified elsewhere; B96.6 Bacteroides fragilis [B. fragilis] as the cause of diseases classified elsewhere; B96.89 Other specified bacterial agents as the cause of diseases classified elsewhere; T66.XXXS Radiation sickness, unspecified, sequela; Y84.2 Radiological procedure and radiotherapy as the cause of abnormal reaction of the patient, or of later complication, without mention of misadventure at the time of the procedure; Y92.9 Unspecified place or not applicable; R39.198 Other difficulties with micturition; I73.9 Peripheral vascular disease, unspecified; I10 Essential (primary) hypertension; E78.00 Pure hypercholesterolemia, unspecified; K21.9 Gastro-esophageal reflux disease without esophagitis; F32.9 Major depressive disorder, single episode, unspecified; F41.9 Anxiety disorder, unspecified; Z96.642 Presence of left artificial hip joint; Z96.659 Presence of unspecified artificial knee joint; Z79.82 Long term (current) use of aspirin; Z79.899 Other long term (current) drug therapy; Z85.048 Personal history of other malignant neoplasm of rectum, rectosigmoid junction, and anus; Z92.21 Personal history of antineoplastic chemotherapy; Z92.3 Personal history of irradiation; Z86.14 Personal history of Methicillin resistant Staphylococcus aureus infection; Z86.2 Personal history of diseases of the blood and blood-forming organs and certain disorders involving the immune mechanism; Z87.891 Personal history of nicotine dependence
CPT/HCPCS: 36415; 36569; 80048; 80053; 80076; 80202; 84134; 85027; 85652; 86140; 86850; 86900; 86920; 87070; 87075; 87077; 87102; 87186; 87205; 87206; 87493; 87640; 88304; 88305; 88311; 93005; 94640; 97116; 97162; 97530; 97802; J2997; J7040; J7050; J7120; P9016; A4216; J0295; J2405

== ENCOUNTER 2017-07-03 09:30 | Outpatient (RCR) | payer MEDICAID, SELFPAY ==
[2017-06-11 00:36] VITALS: BP 146/81; PULSE 71; RESP 16; TEMP 36.2
[2017-07-03 10:45] VITALS: BP 126/94; PULSE 78; RESP 16; TEMP 36.4
--- NOTE | 2017-07-03 19:05 | PCM.WC.PN ---
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 History of Wound: Surgery 06/08/17 - Excision radiation pressure sore abscess ulcer right ischial area, Stage IV, with partial ostectomy for osteomyelitis. Wound care - VAC. Operative culture - Achromobacter xylosoxidans, Staphylococcsu aureus, and Bacteroides fragilis. He was placed on Zosyn with a PICC line for 6 weeks. Pathology - positive for acute osteomyelitis. He is currently at an F until the IV antibiotics are completed. Once he is at home, he can be evaluated for HBO treatments. Progress of Wound: Recent surgery 06/08/17. - Physical Exam Vital Signs Temp Pulse Resp BP 97.5 F L 78 16 126/94 H 07/03/17 10:45 07/03/17 10:45 07/03/17 10:45 07/03/17 10:45 Wound Measurements and Assessment WC - Nurse 1 - General Ulcer Measurement Start: 07/03/17 10:44 Freq: Status: Active Protocol: Activity Type Activity Date Activity User E-Sign Co-Sign Detail Recorded Client Recorded Date Recorded By Document 07/03/17 10:45 [id number] 07/03/17 10:50 DV 07/03/17 10:45 Wound Center Nurse 1 [Ulcer Assessment] #1 R Ischial -Combined with other wound No -Current Size (cm) - Length 4.0 -Current Size (cm) - Width 3.0 -Total Square Cm 12.00 -Undermining/Tunneling Yes -Undermining/Tunneling Starts (O' 12 clock) -Undermining/Tunneling Ends (O'clock) 6 -Maximum Distance (cm) 4.5 -Circular Undermining No -Exudate Amt Large (67-100%) -Exudate Type Serosanguineous -Wound Margin Well Defined, Not Attached -Granulation Amt None Present (0 %) -Granulation Quality N/A -Slough/Fibrin Yes -Necrosis Amt Large (67-100%) -Necrotic Tissue Type Adherent Slough -Structure Exposed Fascia Muscle Bone Joint Fat Layer Exposed -Texture (Nathalie-wound Skin Appearance) Assessed Localized Edema Scarring -Moisture (Nathalie-wound Skin Appearance Assessed ) Maceration Weeping -Color (Nathalie-wound Skin Appearance) Assessed Mottled Palor -Temperature (Nathalie-wound Skin No Abnormality Appearance) (Pt Warm) -Tenderness on Palpation (Nathalie-wound Yes Skin Appearance) -Ulcer Cleansing Wound Cleanser -Foul Odor after Cleansing No -Anesthetic Used 4% Lidocaine Solution SKYLAR - Nurse 2 - General Ulcer CM Notes Start: 07/03/17 10:44 Freq: Status: Active Protocol: Activity Type Activity Date Activity User E-Sign Co-Sign Detail Recorded Client Recorded Date Recorded By Document 07/03/17 11:33 [id number] 07/03/17 11:37 07/03/17 11:33 Wound Center Nurse 2 [Procedure/Treatment] -Time 11:35 -Correct Patient Yes -Correct Side, Site, Position Yes -Correct Procedure Yes -Procedure Performed Yes -Type of Procedure Debridement -Clinical Debridement Muscle -Post Debridement Size (cm) - Length 4.4 -Post Debridement Size (cm) - Width 3.2 -Post Debridement Size (cm) - Depth 3.4 -Total Square Cm 14.08 -Wound/Ulcer Outcome Not Healed -Ulcer Cleansing Rinsed/ Irrigated with Saline -Foul Odor after Cleansing No -Bioengineered Tissue No -Bleeding Controlled with Pressure -Treatment Response Procedure Tolerated Well [See Physician Procedure note for Specifics] Pain Scale: 0-10 Numeric [Pain] -Is Patient Pain Free? Yes Debridement Note Post-Debridement Measurements/Treatment - Nurse 2 - General Ulcer CM Notes Start: 07/03/17 10:44 Freq: Status: Active Protocol: Activity Type Activity Date Activity User E-Sign Co-Sign Detail Recorded Client Recorded Date Recorded By Document 07/03/17 11:33 [id number] 07/03/17 11:37 07/03/17 11:33 Wound Center Nurse 2 #1 R Ischial -Time 11:35 -Correct Patient Yes -Correct Side, Site, Position Yes -Correct Procedure Yes -Procedure Performed Yes -Type of Procedure Debridement -Clinical Debridement Muscle -Post Debridement Size (cm) - Length 4.4 -Post Debridement Size (cm) - Width 3.2 -Post Debridement Size (cm) - Depth 3.4 -Total Square Cm 14.08 -Wound/Ulcer Outcome Not Healed -Ulcer Cleansing Rinsed/ Irrigated with Saline -Foul Odor after Cleansing No -Bioengineered Tissue No -Bleeding Controlled with Pressure -Treatment Response Procedure Tolerated Well Pain Scale: 0-10 Numeric Is Patient Pain Free? Yes Wound debrided: #1 Right ischial area. Laterality: Right Wound Grade/Stage: IV. Type of Debridement: Excisional debridement Anesthesia Used: 4% Lidocaine Solution Depth: Down to and including healthy tissue, in the subcutaneous layer, to muscle, to bone - bone is exposed but not debrided. Percentage of wound debrided: 100 Instrument Used: 7mm curette Tissue Removed: subcutaneous tissue and muscle. Severity: Fat Layer Exposed - muscle is exposed. bone is exposed but not debrided. Amount of bleeding with debridement: Mild Bleeding Controlled with: Pressure Patient tolerated procedure well Assessment/Plan Assessment: 1. 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 2. Late effect radiation right gluteal/ischial area. 3. Osteomyelitis. 4. History of anal CA treated with chemotherapy and radiation therapy. 5. MRSA. 6. 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 Plan: Continue VAC at the ECF. Continue IV Zosyn for 3 more weeks. When the IV antibiotics are completed, he will be discharged home and then he can be evaluated for HBO treatments. He takes nutritional supplementation with protein to help the healing process. He has acute osteomyelitis and will need additional partial ostectomy before a myocutaneous flap is done. Followup 3 weeks.
--- NOTE | 2017-07-04 11:40 | PN.PCM_ITS ---
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 History of Wound: Surgery 06/08/17 - Excision radiation pressure sore abscess ulcer right ischial area, Stage IV, with partial ostectomy for osteomyelitis. Wound care - VAC. Operative culture - Achromobacter xylosoxidans, Staphylococcsu aureus, and Bacteroides fragilis. He was placed on Zosyn with a PICC line for 6 weeks. Pathology - positive for acute osteomyelitis. He is currently at an F until the IV antibiotics are completed. Once he is at home , he can be evaluated for HBO treatments. Progress of Wound: Recent surgery 06/08/17. - Physical Exam Vital Signs Temp Pulse Resp BP 97.5 F L 78 16 126/94 H 07/03/17 10:45 07/03/17 10:45 07/03/17 10:45 07/03/17 10:45 Wound Measurements and Assessment WC - Nurse 1 - General Ulcer Measurement Start: 07/03/17 10:44 Freq: Status: Active Protocol: Activity Type Activity Date Activity User E-Sign Co-Sign Detail Recorded Client Recorded Date Recorded By Document 07/03/17 10:45 [id number] 07/03/17 10:50 DV 07/03/17 10:45 Wound Center Nurse 1 [Ulcer Assessment] #1 R Ischial -Combined with other wound No -Current Size (cm) - Length 4.0 -Current Size (cm) - Width 3.0 -Total Square Cm 12.00 -Undermining/Tunneling Yes -Undermining/Tunneling Starts (O' 12 clock) -Undermining/Tunneling Ends (O'clock) 6 -Maximum Distance (cm) 4.5 -Circular Undermining No -Exudate Amt Large (67-100%) -Exudate Type Serosanguineous -Wound Margin Well Defined, Not Attached -Granulation Amt None Present (0 %) -Granulation Quality N/A -Slough/Fibrin Yes -Necrosis Amt Large (67-100%) -Necrotic Tissue Type Adherent Slough -Structure Exposed Fascia Muscle Bone Joint Fat Layer Exposed -Texture (Nathalie-wound Skin Appearance) Assessed Localized Edema Scarring -Moisture (Nathalie-wound Skin Appearance Assessed ) Maceration Weeping -Color (Nathalie-wound Skin Appearance) Assessed Mottled Palor -Temperature (Nathalie-wound Skin No Abnormality Appearance) (Pt Warm) -Tenderness on Palpation (Nathalie-wound Yes Skin Appearance) -Ulcer Cleansing Wound Cleanser -Foul Odor after Cleansing No -Anesthetic Used 4% Lidocaine Solution SKYLAR - Nurse 2 - General Ulcer CM Notes Start: 07/03/17 10:44 Freq: Status: Active Protocol: Activity Type Activity Date Activity User E-Sign Co-Sign Detail Recorded Client Recorded Date Recorded By Document 07/03/17 11:33 [id number] 07/03/17 11:37 07/03/17 11:33 Wound Center Nurse 2 [Procedure/Treatment] -Time 11:35 -Correct Patient Yes -Correct Side, Site, Position Yes -Correct Procedure Yes -Procedure Performed Yes -Type of Procedure Debridement -Clinical Debridement Muscle -Post Debridement Size (cm) - Length 4.4 -Post Debridement Size (cm) - Width 3.2 -Post Debridement Size (cm) - Depth 3.4 -Total Square Cm 14.08 -Wound/Ulcer Outcome Not Healed -Ulcer Cleansing Rinsed/ Irrigated with Saline -Foul Odor after Cleansing No -Bioengineered Tissue No -Bleeding Controlled with Pressure -Treatment Response Procedure Tolerated Well [See Physician Procedure note for Specifics] Pain Scale: 0-10 Numeric [Pain] -Is Patient Pain Free? Yes Debridement Note Post-Debridement Measurements/Treatment - Nurse 2 - General Ulcer CM Notes Start: 07/03/17 10:44 Freq: Status: Active Protocol: Activity Type Activity Date Activity User E-Sign Co-Sign Detail Recorded Client Recorded Date Recorded By Document 07/03/17 11:33 [id number] 07/03/17 11:37 07/03/17 11:33 Wound Center Nurse 2 #1 R Ischial -Time 11:35 -Correct Patient Yes -Correct Side, Site, Position Yes -Correct Procedure Yes -Procedure Performed Yes -Type of Procedure Debridement -Clinical Debridement Muscle -Post Debridement Size (cm) - Length 4.4 -Post Debridement Size (cm) - Width 3.2 -Post Debridement Size (cm) - Depth 3.4 -Total Square Cm 14.08 -Wound/Ulcer Outcome Not Healed -Ulcer Cleansing Rinsed/ Irrigated with Saline -Foul Odor after Cleansing No -Bioengineered Tissue No -Bleeding Controlled with Pressure -Treatment Response Procedure Tolerated Well Pain Scale: 0-10 Numeric Is Patient Pain Free? Yes Wound debrided: #1 Right ischial area. Laterality: Right Wound Grade/Stage: IV. Type of Debridement: Excisional debridement Anesthesia Used: 4% Lidocaine Solution Depth: Down to and including healthy tissue, in the subcutaneous layer, to muscle, to bone - bone is exposed but not debrided. Percentage of wound debrided: 100 Instrument Used: 7mm curette Tissue Removed: subcutaneous tissue and muscle. Severity: Fat Layer Exposed - muscle is exposed. bone is exposed but not debrided. Amount of bleeding with debridement: Mild Bleeding Controlled with: Pressure Patient tolerated procedure well Assessment/Plan Assessment: 1. 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 2. Late effect radiation right gluteal/ischial area. 3. Osteomyelitis. 4. History of anal CA treated with chemotherapy and radiation therapy. 5. MRSA. 6. s/p excision radiation pressure sore abscess ulcer right ischial area , Stage IV, with partial ostectomy for osteomyelitis. Plan: Continue VAC at the ECF. Continue IV Zosyn for 3 more weeks. When the IV antibiotics are completed, he will be discharged home and then he can be evaluated for HBO treatments. He takes nutritional supplementation with protein to help the healing process. He has acute osteomyelitis and will need additional partial ostectomy before a myocutaneous flap is done. Followup 3 weeks.
== END 2017-07-10 23:59 ==
LOC: WC 09:30
PROVIDERS: Family Provider Internal Medicine; PCP Internal Medicine; Visit Provider Surgery
DX: L59.8 Other specified disorders of the skin and subcutaneous tissue related to radiation (principal); Y84.2 Radiological procedure and radiotherapy as the cause of abnormal reaction of the patient, or of later complication, without mention of misadventure at the time of the procedure; L89.214 Pressure ulcer of right hip, stage 4; Z85.048 Personal history of other malignant neoplasm of rectum, rectosigmoid junction, and anus; Z92.3 Personal history of irradiation; Z92.21 Personal history of antineoplastic chemotherapy; Z86.14 Personal history of Methicillin resistant Staphylococcus aureus infection
CPT/HCPCS: 11043

== ENCOUNTER 2017-08-08 14:00 | Outpatient (RCR) | payer MEDICAID, SELFPAY ==
[2017-07-11 00:32] VITALS: BP 146/81; PULSE 78; RESP 16; TEMP 36.4
[2017-07-24 10:58] VITALS: BP 128/65; PULSE 88; RESP 16; TEMP 36.3
--- NOTE | 2017-07-24 23:44 | PN.PCM_ITS ---
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 History of Wound: Surgery 06/08/17 - Excision radiation pressure sore abscess ulcer right ischial area, Stage IV, with partial ostectomy for osteomyelitis. Wound care - VAC. Operative culture - Achromobacter xylosoxidans, Staphylococcsu aureus, and Bacteroides fragilis. He was placed on Zosyn with a PICC line for 6 weeks. Pathology - positive for acute osteomyelitis. He is currently at an [facility] until the IV antibiotics are completed. Once he is at home , he can be evaluated for HBO treatments. Progress of Wound: Slightly improved. - Physical Exam Vital Signs Temp Pulse Resp BP 97.3 F L 88 16 128/65 H 07/24/17 10:58 07/24/17 10:58 07/24/17 10:58 07/24/17 10:58 Wound Measurements and Assessment WC - Nurse 1 - General Ulcer Measurement Start: 07/24/17 10:56 Freq: Status: Active Protocol: Activity Type Activity Date Activity User E-Sign Co-Sign Detail Recorded Client Recorded Date Recorded By Document 07/24/17 10:58 [facility] [id number] 07/24/17 11:13 [facility] 07/24/17 10:58 Wound Center Nurse 1 [Ulcer Assessment] #1 R Ischial -Combined with other wound No -Current Size (cm) - Length 8.9 -Current Size (cm) - Width 5.4 -Current Size (cm) - Depth 3.7 -Total Square Cm 48.06 -Photo Taken No -Epithelialization None Present -Tunneling No -Undermining/Tunneling Yes -Undermining/Tunneling Starts (O' 12 clock) -Undermining/Tunneling Ends (O'clock) 5 -Maximum Distance (cm) 4.4 -Exudate Amt Medium (34-66%) -Exudate Type Sanguineous -Wound Margin Distinct, Outline Attached -Granulation Amt Large (67-100%) -Granulation Quality [place] -Slough/Fibrin Yes -Necrosis Amt Small (1-33%) -Necrotic Tissue Type Adherent Slough -Structure Exposed Bone -Texture (Nathalie-wound Skin Appearance) Scarring -Moisture (Nathalie-wound Skin Appearance Assessed ) -Color (Nathalie-wound Skin Appearance) Assessed -Temperature (Nathalie-wound Skin No Abnormality Appearance) (Pt Warm) -Tenderness on Palpation (Nathalie-wound No Skin Appearance) -Ulcer Cleansing Wound Cleanser -Foul Odor after Cleansing No -Anesthetic Used 4% Lidocaine Solution - Nurse 2 - General Ulcer CM Notes Start: 07/24/17 10:56 Freq: Status: Active Protocol: Activity Type Activity Date Activity User E-Sign Co-Sign Detail Recorded Client Recorded Date Recorded By Document 07/24/17 11:34 [id number] 07/24/17 11:37 07/24/17 11:34 Wound Center Nurse 2 [Procedure/Treatment] -Time 11:34 -Correct Patient Yes -Correct Side, Site, Position Yes -Correct Procedure Yes -Procedure Performed Yes -Type of Procedure Debridement -Clinical Debridement Muscle -Post Debridement Size (cm) - Length 9 -Post Debridement Size (cm) - Width 5.5 -Post Debridement Size (cm) - Depth 3.8 -Total Square Cm 49.5 -Wound/Ulcer Outcome Not Healed -Ulcer Cleansing Rinsed/ Irrigated with Saline -Foul Odor after Cleansing No -Bioengineered Tissue No -Bleeding Controlled with Pressure -Treatment Response Procedure Tolerated Well [See Physician Procedure note for Specifics] Pain Scale: 0-10 Numeric [Pain] -Is Patient Pain Free? Yes Debridement Note Post-Debridement Measurements/Treatment - Nurse 2 - General Ulcer CM Notes Start: 07/24/17 10:56 Freq: Status: Active Protocol: Activity Type Activity Date Activity User E-Sign Co-Sign Detail Recorded Client Recorded Date Recorded By Document 07/24/17 11:34 [id number] 07/24/17 11:37 07/24/17 11:34 Wound Center Nurse 2 #1 R Ischial -Time 11:34 -Correct Patient Yes -Correct Side, Site, Position Yes -Correct Procedure Yes -Procedure Performed Yes -Type of Procedure Debridement -Clinical Debridement Muscle -Post Debridement Size (cm) - Length 9 -Post Debridement Size (cm) - Width 5.5 -Post Debridement Size (cm) - Depth 3.8 -Total Square Cm 49.5 -Wound/Ulcer Outcome Not Healed -Ulcer Cleansing Rinsed/ Irrigated with Saline -Foul Odor after Cleansing No -Bioengineered Tissue No -Bleeding Controlled with Pressure -Treatment Response Procedure Tolerated Well Pain Scale: 0-10 Numeric Is Patient Pain Free? Yes Wound debrided: #1 Right ischial. Laterality: Right Wound Grade/Stage: IV. Type of Debridement: Excisional debridement Anesthesia Used: 4% Lidocaine Solution Depth: Down to and including healthy tissue, in the subcutaneous layer, to muscle, to bone - bone is exposed but not debrided. Percentage of wound debrided: 100 Instrument Used: 7mm curette Tissue Removed: subcutaneous tissue and muscle. Severity: Fat Layer Exposed - muscle is exposed. bone is exposed but not debrided. Amount of bleeding with debridement: Mild Bleeding Controlled with: Pressure Patient tolerated procedure well Assessment/Plan Assessment: 1. 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 2. Late effect radiation right gluteal area. 3. History of anal CA treated with chemotherapy and radiation therapy. 4. s/p surgical preparation right gluteal/ischial area with excision radiation pressure sore abscess wound and partial ostectomy for osteomyelitis (52.5 cm2). 5. MRSA. Plan: Continue VAC. The Zosyn has been completed. The PICC line will be pulled. Will start discharge planning at the [facility]. Once discharged home, he can be evaluated for HBO treatments. He takes nutritional supplementation with protein to help the healing process. He has acute osteomyelitis and will need additional partial ostectomy before a myocutaneous flap is done. Followup 3 weeks.
[2017-07-28 11:13] VITALS: BP 107/73; PULSE 78; RESP 18; TEMP 36.5
[2017-07-31 11:48] VITALS: BP 146/75; PULSE 76; RESP 18; TEMP 36.4
[2017-08-02 12:08] VITALS: BP 157/80; PULSE 83; RESP 16; TEMP 36.9
[2017-08-04 12:13] VITALS: BP 142/69; PULSE 72; RESP 16; TEMP 36.8
[2017-08-08 13:50] VITALS: BP 112/63; PULSE 81; RESP 16
--- NOTE | 2017-08-08 20:26 | PCM.WC.PN ---
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 History of Wound: Surgery 06/08/17 - Excision radiation pressure sore abscess ulcer right ischial area, Stage IV, with partial ostectomy for osteomyelitis. Wound care - VAC. Operative culture - Achromobacter xylosoxidans, Staphylococcsu aureus, and Bacteroides fragilis. He was placed on Zosyn with a PICC line for 6 weeks and has finished them. PICC line has been pulled. Pathology - positive for acute osteomyelitis. He has been discharged to home so he can be evaluated for HBO treatments. Progress of Wound: Slightly improved. - Physical Exam Vital Signs Temp Pulse Resp BP 98.3 F 81 16 112/63 08/04/17 12:13 08/08/17 13:50 08/08/17 13:50 08/08/17 13:50 Wound Measurements and Assessment WC - Nurse 1 - General Ulcer Measurement Start: 07/24/17 10:56 Freq: Status: Active Protocol: Activity Type Activity Date Activity User E-Sign Co-Sign Detail Recorded Client Recorded Date Recorded By Document 08/08/17 13:50 [facility] [id number] 08/08/17 14:07 [facility] 08/08/17 13:50 Wound Center Nurse 1 [Ulcer Assessment] #1 R Ischial -Current Size (cm) - Length 8.1 -Current Size (cm) - Width 5.3 -Current Size (cm) - Depth 3 -Total Square Cm 42.93 -Photo Taken Yes -Undermining/Tunneling Starts (O' 12 clock) -Undermining/Tunneling Ends (O'clock) 5 -Maximum Distance (cm) 4.3 -Exudate Amt Large (67-100%) -Exudate Type Serosanguineous -Wound Margin Thickened & Rolled Under -Granulation Amt Medium (34-66%) -Granulation Quality [place] Red -Necrosis Amt Medium (34-66%) -Necrotic Tissue Type Adherent Slough -Structure Exposed Bone -Texture (Nathalie-wound Skin Appearance) Scarring -Moisture (Nathalie-wound Skin Appearance No Abnormality ) -Color (Nathalie-wound Skin Appearance) Erythema -Temperature (Nathalie-wound Skin No Abnormality Appearance) (Pt Warm) -Tenderness on Palpation (Nathalie-wound Yes Skin Appearance) -Ulcer Cleansing Wound Cleanser -Foul Odor after Cleansing Yes -Anesthetic Used 4% Lidocaine Solution - Nurse 2 - General Ulcer CM Notes Start: 07/24/17 10:56 Freq: Status: Active Protocol: Activity Type Activity Date Activity User E-Sign Co-Sign Detail Recorded Client Recorded Date Recorded By Document 08/08/17 14:28 [id number] 08/08/17 14:31 08/08/17 14:28 Wound Center Nurse 2 [Procedure/Treatment] -Time 14:29 -Correct Patient Yes -Correct Side, Site, Position Yes -Correct Procedure Yes -Procedure Performed Yes -Type of Procedure Debridement -Clinical Debridement Muscle -Post Debridement Size (cm) - Length 8.2 -Post Debridement Size (cm) - Width 5.3 -Post Debridement Size (cm) - Depth 3.0 -Total Square Cm 43.46 -Wound/Ulcer Outcome Not Healed -Ulcer Cleansing Rinsed/ Irrigated with Saline -Foul Odor after Cleansing No -Bioengineered Tissue No -Bleeding Controlled with Pressure -Treatment Response Procedure Tolerated Well [See Physician Procedure note for Specifics] Pain Scale: 0-10 Numeric [Pain] -Is Patient Pain Free? Yes Debridement Note Post-Debridement Measurements/Treatment - Nurse 2 - General Ulcer CM Notes Start: 07/24/17 10:56 Freq: Status: Active Protocol: Activity Type Activity Date Activity User E-Sign Co-Sign Detail Recorded Client Recorded Date Recorded By Document 07/24/17 11:34 [id number] 07/24/17 11:37 Document 08/08/17 14:28 [id number] 08/08/17 14:31 07/24/17 08/08/17 11:34 14:28 Wound Center Nurse 2 #1 R Ischial -Time 11:34 14:29 -Correct Patient Yes Yes -Correct Side, Site, Position Yes Yes -Correct Procedure Yes Yes -Procedure Performed Yes Yes -Type of Procedure Debridement Debridement -Clinical Debridement Muscle Muscle -Post Debridement Size (cm) - Length 9 8.2 -Post Debridement Size (cm) - Width 5.5 5.3 -Post Debridement Size (cm) - Depth 3.8 3.0 -Total Square Cm 49.5 43.46 -Wound/Ulcer Outcome Not Healed Not Healed -Ulcer Cleansing Rinsed/ Rinsed/ Irrigated with Irrigated with Saline Saline -Foul Odor after Cleansing No No -Bioengineered Tissue No No -Bleeding Controlled with Pressure Pressure -Treatment Response Procedure Procedure Tolerated Well Tolerated Well Pain Scale: 0-10 Numeric Is Patient Pain Free? Yes Yes Wound debrided: #1 Right ischial. Laterality: Right Wound Grade/Stage: IV. Type of Debridement: Excisional debridement Anesthesia Used: 4% Lidocaine Solution Depth: Down to and including healthy tissue, in the subcutaneous layer, to muscle, to bone - bone exposed but not debrided. Percentage of wound debrided: 100 Instrument Used: 7mm curette Tissue Removed: subcutaneous tissue and muscle. Severity: Fat Layer Exposed - muscle is exposed. bone is exposed but not debrided. Amount of bleeding with debridement: Mild Bleeding Controlled with: Pressure Patient tolerated procedure well Assessment/Plan Assessment: 1. 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 2. Late effect radiation right gluteal/ischial area. 3. Osteomyelitis. 4. History of anal CA treated with chemotherapy and radiation therapy. 5. MRSA. 6. 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 Plan: Continue VAC. The Zosyn has been completed. The PICC line has been pulled. He has been discharged home. Can evaluate for HBO. Needs a CXR. He takes nutritional supplementation with protein to help the healing process. He has acute osteomyelitis and will need additional partial ostectomy before a myocutaneous flap is done. Followup 3 weeks. Once approved, he can start HBO treatments.
== END 2017-08-10 23:59 ==
LOC: WC 14:00
PROVIDERS: Family Provider Internal Medicine; PCP Internal Medicine; Visit Provider Surgery
DX: L59.8 Other specified disorders of the skin and subcutaneous tissue related to radiation (principal); Y84.2 Radiological procedure and radiotherapy as the cause of abnormal reaction of the patient, or of later complication, without mention of misadventure at the time of the procedure; L89.214 Pressure ulcer of right hip, stage 4; Z92.3 Personal history of irradiation; Z86.14 Personal history of Methicillin resistant Staphylococcus aureus infection; Z92.21 Personal history of antineoplastic chemotherapy
CPT/HCPCS: 11043; 11046; 97605; 97606; 99211; 99212; G0463

== ENCOUNTER → 2017-08-21 18:56 | Outpatient (CLI) | payer MEDICAID, SELFPAY ==
--- NOTE | 2017-08-21 18:56 | DT_ITS ---
This patient was seen during an EMR downtime August 14, 2017 - August 21, 2017. This patient may have a combination of paper and electronic documentation or all paper documentation. All documentation is viewable within the e-chart portion of [employer] for each patient visit.
== END ==
PROVIDERS: Family Provider Internal Medicine; PCP Internal Medicine; Visit Provider Surgery
DX: L98.419 Non-pressure chronic ulcer of buttock with unspecified severity (principal)
CPT/HCPCS: 87070; 87075; 87077; 87186; 87205

== ENCOUNTER 2017-09-08 11:30 | Outpatient (RCR) | payer MEDICAID, SELFPAY ==
[2017-08-11 00:32] VITALS: BP 112/63; PULSE 81; RESP 16; TEMP 36.8
--- NOTE | 2017-08-11 10:00 | RAD_ITS ---
STUDY: X-RAY CHEST REASON FOR EXAM: Male, 62 years old. Hyperbaric oxygen therapy TECHNIQUE: PA and lateral views of the chest. COMPARISON: 01/07/2017 FINDINGS: The lungs are clear and expanded. There is no demonstrated pleural abnormality. Normal size heart. Normal mediastinum and andrea. Normal visualized pulmonary arteries. Normal visualized aortic arch and descending thoracic aorta. Normal visualized thoracic spine. Normal visualized ribs, clavicles, and shoulders. There is no demonstrated abnormality of the visualized soft tissue structures of the upper abdomen. RAD/Chest PA and Lateral IMPRESSION: No acute cardiopulmonary process. Stable exam. Electronically Signed: Chu Marcum MD at 8:04 EDT , Service support ,
[2017-08-11 11:09] VITALS: BP 147/82; PULSE 80; RESP 16; TEMP 35.5
[2017-08-23 14:14] VITALS: BP 148/77; PULSE 72; RESP 16; TEMP 36.8
[2017-08-25 11:16] VITALS: BP 138/72; PULSE 80; RESP 16; TEMP 36.5
[2017-08-28 10:56] VITALS: BP 148/68; PULSE 80; RESP 16; TEMP 36.2
--- NOTE | 2017-08-28 20:17 | PCM.WC.PN ---
Type of Wound Date of Service: 08/28/17 Chief Complaint: Nonhealing radiation pressure ulcer, abscess ulcer right gluteal/ischial area, Stage IV, with 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 History of Wound: Surgery 06/08/17 - Excision radiation pressure sore abscess ulcer right ischial area, Stage IV, with partial ostectomy for osteomyelitis. Wound care - VAC. Operative culture - Achromobacter xylosoxidans, Staphylococcsu aureus, and Bacteroides fragilis. He was placed on Zosyn with a PICC line for 6 weeks and has finished them. PICC line has been pulled. He had a wound culture done on 08/21/17. It showed MRSA, Corynebaterium striatum, and Bacteroides fragilis. He will be started on Flagyl and Doxycycline. Pathology - positive for acute osteomyelitis. He has been discharged to home so he can be evaluated for HBO treatments. Progress of Wound: Slightly improved. - Physical Exam Vital Signs Temp Pulse Resp BP 97.1 F L 80 16 148/68 H 08/28/17 10:56 08/28/17 10:56 08/28/17 10:56 08/28/17 10:56 HEENT: TM's Clear - no bleeding noted. Wound Measurements and Assessment WC - Nurse 1 - General Ulcer Measurement Start: 08/11/17 11:07 Freq: Status: Active Protocol: Activity Type Activity Date Activity User E-Sign Co-Sign Detail Recorded Client Recorded Date Recorded By Document 08/28/17 10:56 DL [id number] 08/28/17 11:05 DL 08/28/17 10:56 Wound Center Nurse 1 [Ulcer Assessment] #1 R Ischial -Current Size (cm) - Length 7.3 -Current Size (cm) - Width 4.6 -Current Size (cm) - Depth 2.2 -Total Square Cm 33.58 -Photo Taken No -Epithelialization None Present -Undermining/Tunneling Starts (O' 12 clock) -Undermining/Tunneling Ends (O'clock) 5 -Maximum Distance (cm) 2.6 -Exudate Amt Large (67-100%) -Exudate Type Serosanguineous -Wound Margin Distinct, Outline Attached -Granulation Amt Medium (34-66%) -Granulation Quality [place] Red -Necrosis Amt Medium (34-66%) -Necrotic Tissue Type Adherent Slough -Structure Exposed Bone -Texture (Nathalie-wound Skin Appearance) Excoriation Scarring -Moisture (Nathalie-wound Skin Appearance No Abnormality ) -Color (Nathalie-wound Skin Appearance) Erythema Rubor -Temperature (Nathalie-wound Skin No Abnormality Appearance) (Pt Warm) -Ulcer Cleansing Wound Cleanser -Foul Odor after Cleansing No -Anesthetic Used 4% Lidocaine Solution SKYLAR - Nurse 2 - General Ulcer CM Notes Start: 08/11/17 11:07 Freq: Status: Active Protocol: Activity Type Activity Date Activity User E-Sign Co-Sign Detail Recorded Client Recorded Date Recorded By Document 08/28/17 12:19 [id number] 08/28/17 12:26 08/28/17 12:19 Wound Center Nurse 2 [Procedure/Treatment] -Time 12:26 -Correct Patient Yes -Correct Side, Site, Position Yes -Correct Procedure Yes -Procedure Performed Yes -Type of Procedure Debridement -Clinical Debridement Muscle -Post Debridement Size (cm) - Length 7.5 -Post Debridement Size (cm) - Width 4.6 -Post Debridement Size (cm) - Depth 2.2 -Total Square Cm 34.50 -Wound/Ulcer Outcome Not Healed -Ulcer Cleansing Rinsed/ Irrigated with Saline -Foul Odor after Cleansing No -Bioengineered Tissue No -Bleeding Controlled with Pressure -Treatment Response Procedure Tolerated Well [See Physician Procedure note for Specifics] Pain Scale: 0-10 Numeric [Pain] -Is Patient Pain Free? Yes Debridement Note Post-Debridement Measurements/Treatment - Nurse 2 - General Ulcer CM Notes Start: 08/11/17 11:07 Freq: Status: Active Protocol: Activity Type Activity Date Activity User E-Sign Co-Sign Detail Recorded Client Recorded Date Recorded By Document 08/28/17 12:19 [id number] 08/28/17 12:26 08/28/17 12:19 Wound Center Nurse 2 #1 R Ischial -Time 12:26 -Correct Patient Yes -Correct Side, Site, Position Yes -Correct Procedure Yes -Procedure Performed Yes -Type of Procedure Debridement -Clinical Debridement Muscle -Post Debridement Size (cm) - Length 7.5 -Post Debridement Size (cm) - Width 4.6 -Post Debridement Size (cm) - Depth 2.2 -Total Square Cm 34.50 -Wound/Ulcer Outcome Not Healed -Ulcer Cleansing Rinsed/ Irrigated with Saline -Foul Odor after Cleansing No -Bioengineered Tissue No -Bleeding Controlled with Pressure -Treatment Response Procedure Tolerated Well Pain Scale: 0-10 Numeric Is Patient Pain Free? Yes Wound debrided: #1 Right ischial. Laterality: Right Wound Grade/Stage: IV. Type of Debridement: Excisional debridement Anesthesia Used: 4% Lidocaine Solution Depth: Down to and including healthy tissue, in the subcutaneous layer, to muscle, to bone - bone exposed but not debrided. Percentage of wound debrided: 100 Instrument Used: 7mm curette Tissue Removed: subcutaneous tissue and muscle. Severity: Fat Layer Exposed - muscle is exposed. bone is exposed but not debrided. Amount of bleeding with debridement: Mild Bleeding Controlled with: Pressure Patient tolerated procedure well Assessment/Plan Clinical Impression(s) from Imaging Studies Chest X-Ray 08/11/17 10:00 IMPRESSION: No acute cardiopulmonary process. Stable exam. Electronically Signed: Chu Marcum MD at 8:04 EDT , Service support , Assessment: 1. 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 2. Late effect radiation right gluteal area. 3. History of anal CA treated with chemotherapy and radiation therapy. 4. s/p surgical preparation right gluteal/ischial area with excision radiation pressure sore abscess wound and partial ostectomy for osteomyelitis (52.5 cm2). 5. MRSA. Plan: Continue VAC. The Zosyn has been completed. The PICC line has been pulled. He has been discharged home. Awaiting approval for HBO. CXR was done on 08/11/17 and showed no acute cardiopulmonary process. He had a wound culture done on 08/21/17 and it showed MRSA, Corynebacterium striatum, and Bacteroides fragilis. Wrote scripts for Doxycycline and Flagyl. He takes nutritional supplementation with protein to help the healing process. He has acute osteomyelitis and will need additional partial ostectomy before a myocutaneous flap is done. Followup 2 weeks. Once approved, he can start HBO treatments. He states he needs a walker to help him with ambulation secondary to his ischial pressure sore.
--- NOTE | 2017-08-30 00:37 | PN.PCM_ITS ---
Type of Wound Date of Service: 08/28/17 Chief Complaint: Nonhealing radiation pressure ulcer, abscess ulcer right gluteal/ischial area, Stage IV, with 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 History of Wound: Surgery 06/08/17 - Excision radiation pressure sore abscess ulcer right ischial area, Stage IV, with partial ostectomy for osteomyelitis. Wound care - VAC. Operative culture - Achromobacter xylosoxidans, Staphylococcsu aureus, and Bacteroides fragilis. He was placed on Zosyn with a PICC line for 6 weeks and has finished them. PICC line has been pulled. He had a wound culture done on 08/21/17. It showed MRSA, Corynebaterium striatum, and Bacteroides fragilis. He will be started on Flagyl and Doxycycline. Pathology - positive for acute osteomyelitis. He has been discharged to home so he can be evaluated for HBO treatments. Progress of Wound: Slightly improved. - Physical Exam Vital Signs Temp Pulse Resp BP 97.1 F L 80 16 148/68 H 08/28/17 10:56 08/28/17 10:56 08/28/17 10:56 08/28/17 10:56 HEENT: TM's Clear - no bleeding noted. Wound Measurements and Assessment WC - Nurse 1 - General Ulcer Measurement Start: 08/11/17 11:07 Freq: Status: Active Protocol: Activity Type Activity Date Activity User E-Sign Co-Sign Detail Recorded Client Recorded Date Recorded By Document 08/28/17 10:56 DL [id number] 08/28/17 11:05 DL 08/28/17 10:56 Wound Center Nurse 1 [Ulcer Assessment] #1 R Ischial -Current Size (cm) - Length 7.3 -Current Size (cm) - Width 4.6 -Current Size (cm) - Depth 2.2 -Total Square Cm 33.58 -Photo Taken No -Epithelialization None Present -Undermining/Tunneling Starts (O' 12 clock) -Undermining/Tunneling Ends (O'clock) 5 -Maximum Distance (cm) 2.6 -Exudate Amt Large (67-100%) -Exudate Type Serosanguineous -Wound Margin Distinct, Outline Attached -Granulation Amt Medium (34-66%) -Granulation Quality [place] Red -Necrosis Amt Medium (34-66%) -Necrotic Tissue Type Adherent Slough -Structure Exposed Bone -Texture (Nathalie-wound Skin Appearance) Excoriation Scarring -Moisture (Nathalie-wound Skin Appearance No Abnormality ) -Color (Nathalie-wound Skin Appearance) Erythema Rubor -Temperature (Nathalie-wound Skin No Abnormality Appearance) (Pt Warm) -Ulcer Cleansing Wound Cleanser -Foul Odor after Cleansing No -Anesthetic Used 4% Lidocaine Solution SKYLAR - Nurse 2 - General Ulcer CM Notes Start: 08/11/17 11:07 Freq: Status: Active Protocol: Activity Type Activity Date Activity User E-Sign Co-Sign Detail Recorded Client Recorded Date Recorded By Document 08/28/17 12:19 [id number] 08/28/17 12:26 08/28/17 12:19 Wound Center Nurse 2 [Procedure/Treatment] -Time 12:26 -Correct Patient Yes -Correct Side, Site, Position Yes -Correct Procedure Yes -Procedure Performed Yes -Type of Procedure Debridement -Clinical Debridement Muscle -Post Debridement Size (cm) - Length 7.5 -Post Debridement Size (cm) - Width 4.6 -Post Debridement Size (cm) - Depth 2.2 -Total Square Cm 34.50 -Wound/Ulcer Outcome Not Healed -Ulcer Cleansing Rinsed/ Irrigated with Saline -Foul Odor after Cleansing No -Bioengineered Tissue No -Bleeding Controlled with Pressure -Treatment Response Procedure Tolerated Well [See Physician Procedure note for Specifics] Pain Scale: 0-10 Numeric [Pain] -Is Patient Pain Free? Yes Debridement Note Post-Debridement Measurements/Treatment - Nurse 2 - General Ulcer CM Notes Start: 08/11/17 11:07 Freq: Status: Active Protocol: Activity Type Activity Date Activity User E-Sign Co-Sign Detail Recorded Client Recorded Date Recorded By Document 08/28/17 12:19 [email or web address] [id number] 08/28/17 12:26 08/28/17 12:19 Wound Center Nurse 2 #1 R Ischial -Time 12:26 -Correct Patient Yes -Correct Side, Site, Position Yes -Correct Procedure Yes -Procedure Performed Yes -Type of Procedure Debridement -Clinical Debridement Muscle -Post Debridement Size (cm) - Length 7.5 -Post Debridement Size (cm) - Width 4.6 -Post Debridement Size (cm) - Depth 2.2 -Total Square Cm 34.50 -Wound/Ulcer Outcome Not Healed -Ulcer Cleansing Rinsed/ Irrigated with Saline -Foul Odor after Cleansing No -Bioengineered Tissue No -Bleeding Controlled with Pressure -Treatment Response Procedure Tolerated Well Pain Scale: 0-10 Numeric Is Patient Pain Free? Yes Wound debrided: #1 Right ischial. Laterality: Right Wound Grade/Stage: IV. Type of Debridement: Excisional debridement Anesthesia Used: 4% Lidocaine Solution Depth: Down to and including healthy tissue, in the subcutaneous layer, to muscle, to bone - bone exposed but not debrided. Percentage of wound debrided: 100 Instrument Used: 7mm curette Tissue Removed: subcutaneous tissue and muscle. Severity: Fat Layer Exposed - muscle is exposed. bone is exposed but not debrided. Amount of bleeding with debridement: Mild Bleeding Controlled with: Pressure Patient tolerated procedure well Assessment/Plan Clinical Impression(s) from Imaging Studies Chest X-Ray 08/11/17 10:00 IMPRESSION: No acute cardiopulmonary process. Stable exam. Electronically Signed: Chu Marcum MD at 8:04 EDT , Service support , Assessment: 1. 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 2. Late effect radiation right gluteal area. 3. History of anal CA treated with chemotherapy and radiation therapy. 4. s/p surgical preparation right gluteal/ischial area with excision radiation pressure sore abscess wound and partial ostectomy for osteomyelitis (52.5 cm2). 5. MRSA. Plan: Continue VAC. The Zosyn has been completed. The PICC line has been pulled. He has been discharged home. Awaiting approval for HBO. CXR was done on 08/11/17 and showed no acute cardiopulmonary process. He had a wound culture done on 08/21/17 and it showed MRSA, Corynebacterium striatum, and Bacteroides fragilis. Wrote scripts for Doxycycline and Flagyl. He takes nutritional supplementation with protein to help the healing process. He has acute osteomyelitis and will need additional partial ostectomy before a myocutaneous flap is done. Followup 2 weeks. Once approved, he can start HBO treatments. He states he needs a walker to help him with ambulation secondary to his ischial pressure sore.
[2017-09-01 13:09] VITALS: RESP 16; TEMP 36.4
[2017-09-04 16:43] VITALS: BP 140/70; PULSE 83; RESP 16; TEMP 37.1
[2017-09-06 10:52] VITALS: BP 130/82; PULSE 76; RESP 18; TEMP 36.5
== END 2017-09-09 23:59 ==
LOC: WC 11:30
PROVIDERS: Family Provider Internal Medicine; PCP Internal Medicine; Visit Provider Surgery
DX: L59.8 Other specified disorders of the skin and subcutaneous tissue related to radiation (principal); L89.214 Pressure ulcer of right hip, stage 4; Y84.2 Radiological procedure and radiotherapy as the cause of abnormal reaction of the patient, or of later complication, without mention of misadventure at the time of the procedure; M86.18 Other acute osteomyelitis, other site; Z92.21 Personal history of antineoplastic chemotherapy; Z85.048 Personal history of other malignant neoplasm of rectum, rectosigmoid junction, and anus
CPT/HCPCS: 11043; 11046; 71046; 97605; 97606; 99211; 99212; 99213; G0463

== ENCOUNTER 2017-10-10 10:00 | Outpatient (RCR) | payer MEDICAID, SELFPAY ==
[2017-09-10 00:32] VITALS: BP 130/82; PULSE 76; RESP 18; TEMP 36.5
[2017-09-11 11:26] VITALS: BP 167/81; PULSE 80; RESP 18; TEMP 36.6
--- NOTE | 2017-09-11 23:41 | PCM.WC.PN ---
Type of Wound Date of Service: 09/11/17 Chief Complaint: Nonhealing radiation pressure ulcer, abscess ulcer right gluteal/ischial area, Stage IV, with 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 History of Wound: Surgery 06/08/17 - Excision radiation pressure sore abscess ulcer right ischial area, Stage IV, with partial ostectomy for osteomyelitis. Wound care - VAC. Operative culture - Achromobacter xylosoxidans, Staphylococcsu aureus, and Bacteroides fragilis. He was placed on Zosyn with a PICC line for 6 weeks and has finished them. PICC line has been pulled. He had a wound culture done on 08/21/17. It showed MRSA, Corynebaterium striatum, and Bacteroides fragilis. He was started on Flagyl and Doxycycline. He has problems with Doxycycline causing some diarrhea. It will be changed to Bactrim. Pathology - positive for acute osteomyelitis. He has been discharged to home so he can be evaluated for HBO treatments. Awaiting approval for HBO. Progress of Wound: Slightly improved. - Physical Exam Vital Signs Temp Pulse Resp BP 97.8 F 80 18 167/81 H 09/11/17 11:26 09/11/17 11:26 09/11/17 11:26 09/11/17 11:26 Wound Measurements and Assessment WC - Nurse 1 - General Ulcer Measurement Start: 09/11/17 11:25 Freq: Status: Active Protocol: Activity Type Activity Date Activity User E-Sign Co-Sign Detail Recorded Client Recorded Date Recorded By Document 09/11/17 11:26 [facility] [id number] 09/11/17 11:29 [facility] 09/11/17 11:26 Wound Center Nurse 1 [Ulcer Assessment] #1 R Ischial -Combined with other wound No -Current Size (cm) - Length 7.9 -Current Size (cm) - Width 4.1 -Current Size (cm) - Depth 1.9 -Total Square Cm 32.39 -Date of Last Picture (Recall this 09/11/17 field) -Photo Taken Yes -Epithelialization None Present -Tunneling No -Undermining/Tunneling Yes -Undermining/Tunneling Starts (O' 12 clock) -Undermining/Tunneling Ends (O'clock) 4 -Circular Undermining No -Exudate Amt Small (1-33%) -Exudate Type Serosanguineous -Wound Margin Distinct, Outline Attached -Granulation Amt Large (67-100%) -Granulation Quality [place] -Slough/Fibrin No -Necrosis Amt None Present (0 %) -Structure Exposed Bone -Texture (Nathalie-wound Skin Appearance) Assessed Scarring -Moisture (Nathalie-wound Skin Appearance No Abnormality ) Assessed -Color (Nathalie-wound Skin Appearance) Assessed -Temperature (Nathalie-wound Skin No Abnormality Appearance) (Pt Warm) -Tenderness on Palpation (Nathaile-wound Yes Skin Appearance) -Ulcer Cleansing Wound Cleanser -Foul Odor after Cleansing No -Anesthetic Used 4% Lidocaine Solution - Nurse 2 - General Ulcer CM Notes Start: 09/11/17 11:25 Freq: Status: Active Protocol: Activity Type Activity Date Activity User E-Sign Co-Sign Detail Recorded Client Recorded Date Recorded By Document 09/11/17 11:59 [id number] 09/11/17 12:00 09/11/17 11:59 Wound Center Nurse 2 [Procedure/Treatment] -Time 11:59 -Correct Patient Yes -Correct Side, Site, Position Yes -Correct Procedure Yes -Procedure Performed Yes -Type of Procedure Debridement -Clinical Debridement Muscle -Post Debridement Size (cm) - Length 8 -Post Debridement Size (cm) - Width 4.2 -Post Debridement Size (cm) - Depth 1.9 -Total Square Cm 33.6 -Ulcer Cleansing Rinsed/ Irrigated with Saline -Foul Odor after Cleansing No -Bioengineered Tissue No -Bleeding Controlled with Pressure -Treatment Response Procedure Tolerated Well [See Physician Procedure note for Specifics] Pain Scale: 0-10 Numeric [Pain] -Is Patient Pain Free? Yes Debridement Note Post-Debridement Measurements/Treatment - Nurse 2 - General Ulcer CM Notes Start: 09/11/17 11:25 Freq: Status: Active Protocol: Activity Type Activity Date Activity User E-Sign Co-Sign Detail Recorded Client Recorded Date Recorded By Document 09/11/17 11:59 JF [id number] 09/11/17 12:00 09/11/17 11:59 Wound Center Nurse 2 #1 R Ischial -Time 11:59 -Correct Patient Yes -Correct Side, Site, Position Yes -Correct Procedure Yes -Procedure Performed Yes -Type of Procedure Debridement -Clinical Debridement Muscle -Post Debridement Size (cm) - Length 8 -Post Debridement Size (cm) - Width 4.2 -Post Debridement Size (cm) - Depth 1.9 -Total Square Cm 33.6 -Ulcer Cleansing Rinsed/ Irrigated with Saline -Foul Odor after Cleansing No -Bioengineered Tissue No -Bleeding Controlled with Pressure -Treatment Response Procedure Tolerated Well Pain Scale: 0-10 Numeric Is Patient Pain Free? Yes Wound debrided: #1 Right ischial. Laterality: Right Wound Grade/Stage: IV. Type of Debridement: Excisional debridement Anesthesia Used: 4% Lidocaine Solution Depth: Down to and including healthy tissue, in the subcutaneous layer, to muscle, to bone - bone is exposed but not debrided. Percentage of wound debrided: 100 Instrument Used: 7mm curette Tissue Removed: subcutaneous tissue and muscle. Severity: Fat Layer Exposed - muscle is exposed. bone is exposed but not debrided. Amount of bleeding with debridement: Mild Bleeding Controlled with: Pressure Patient tolerated procedure well Assessment/Plan Assessment: 1. 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 2. Late effect radiation right gluteal/ischial area. 3. Osteomyelitis. 4. History of anal CA treated with chemotherapy and radiation therapy. 5. MRSA. 6. 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 Plan: Continue VAC. The Zosyn has been completed. The PICC line has been pulled. He has been discharged home. Awaiting approval for HBO. CXR was done on 08/11/17 and showed no acute cardiopulmonary process. He had a wound culture done on 08/21/17 and it showed MRSA, Corynebacterium striatum, and Bacteroides fragilis. He was started on Doxycycline and Flagyl. He was having problems with diarrhea with the Doxycycline. It was changed to Bactrim. He takes nutritional supplementation with protein to help the healing process. He has acute osteomyelitis and will need additional partial ostectomy before a myocutaneous flap is done. Followup 3 weeks. Once approved, he can start HBO treatments. He states he needs a walker to help him with ambulation secondary to his ischial pressure sore.
[2017-09-14 11:49] VITALS: BP 149/80; PULSE 84; RESP 18; TEMP 36
[2017-09-18 10:20] VITALS: BP 137/74; BP 157/89; PULSE 75; PULSE 83; RESP 16; TEMP 36.2; TEMP 36.6
--- NOTE | 2017-09-18 22:10 | PCM.HBO.PN ---
History of Present Illness Date of Service: 09/18/17 Presenting Chief Complaint: Nonhealing radiation pressure ulcer, abscess ulcer right gluteal/ischial area, Stage IV, with 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 BRYN TROTTER is a 62 year old currently undergoing hyperbaric oxygen therapy for nonhealing radiation pressure sore abscess ulcer right gluteal/ischial area, Stage IV, with 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 Progress: This is his second cycle of hyperbaric oxygen therapy with treatment #1. Tolerance of hyperbaric oxygen therapy: Hyperbaric oxygen therapy was administered as per the facility's protocol. The patient tolerated hyperbaric oxygen therapy well, without complaints or complications. Upon emergence from the hyperbaric chamber today, the patient's vital signs remained stable. He was discharged in good condition. 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, stage 4 (Chronic) Anal cancer (Chronic) Hepatitis C carrier (Chronic) COPD (chronic obstructive pulmonary disease) (Chronic) Anxiety and depression (Chronic) HTN (hypertension) (Chronic) HLD (hyperlipidemia) (Chronic) GERD (gastroesophageal reflux disease) (Chronic) PAD (peripheral artery disease) (Chronic) Allergies/Adverse Reactions: Allergies povidone-iodine [From Betadine] Allergy (Verified 06/06/17 14:24) Hives Yrmpobr-Mrz-Scn Reductase Inhibitor Adverse Reaction (Verified 06/06/17 14:24) MESSED MY LIVER UP adhesive tape Allergy (Uncoded 06/06/17 14:24) Itching/rash Home Medications: Ambulatory Orders Medication Instructions Recorded Albuterol Inhaler [Ventolin Hfa] 2 puff INHALATION Q4H PRN PRN 03/22/16 Aspirin [Aspirin, Baby] 81 mg PO DAILY@0800 03/22/16 Escitalopram Oxalate [Lexapro] 10 mg PO QHS 03/22/16 Ezetimibe [Zetia] 10 mg PO QHS 03/22/16 Fluticasone 0.05% [Flonase Nasal 2 spray NASAL BID 03/22/16 [place]] Multivitamin [Multiple Vitamins] 1 each PO DAILY 03/22/16 Omeprazole [Prilosec] 40 mg PO QHS 03/22/16 buPROPion XL [Wellbutrin Xl] 300 mg PO QHS 03/22/16 busPIRone [Buspar] 5 mg PO TID 03/22/16 Tiotropium [place] [Spiriva 2 puff INHALATION DAILY 10/20/16 Respimat] Cholecalciferol (Vitamin D3) 1,000 unit PO DAILY 12/09/16 [Vitamin D3] Tizanidine HCl [Zanaflex] 4 mg PO Q6H PRN PRN 12/27/16 Metoprolol Tartrate 25 mg PO BID #60 tablet 01/04/17 Nutritional Supplement [Chuy - 1 packet PO BIDCM packet 01/04/17 ORANGE FLAVOR] Acetaminophen [Tylenol Tablet] 650 mg PO Q6H PRN PRN tablet 01/13/17 Gabapentin [Neurontin] 800 mg PO TIDCM tablet 01/13/17 Ibuprofen [Motrin] 800 mg PO TID 06/06/17 Triamterene 37.5MG/Hctz 25MG 0.5 cap PO DAILY 06/06/17 [Dyazide (G)] Testosterone [Androderm 2mg/24 hr] 1 each TD 06/08/17 Piperacil/Tazobactam [Zosyn] 3.375 gm IV Q8 40 Days #120 dose 06/13/17 Diazepam [Valium] 5 mg PO 4X/DAY PRN PRN #30 tab 06/14/17 DiphenhydrAMINE [Benadryl] 25 mg PO Q6H PRN capsule 06/14/17 Docusate Sodium [Colace] 100 mg PO BID capsule 06/14/17 Ensure Enlive 120 ml PO 4X/DAY liquid 06/14/17 Heparin Sodium,Porcine/Pf [Heparin 500 unit IV UD PRN syringe 06/14/17 500 Unit/5 ml (100/ml)] Ibuprofen [Motrin] 800 mg PO Q8H PRN PRN tablet 06/14/17 Ipratropium [Atrovent Aerosols] 0.5 mg INHALATION Q6HWA.RT 06/14/17 solution [place] Polysaccharide Complex 150 mg PO DAILYCM capsule 06/14/17 [Ferrex 150] Loperamide [Imodium] 2 mg PO Q4H PRN PRN capsule 06/14/17 Nutritional Supplement [Cuhy - 1 packet PO BIDCM packet 06/14/17 [place]ANGE FLAVOR] Oxycodone HCl/Acetaminophen 1 - 2 tab PO 4X/DAY PRN PRN 5 Days 06/14/17 [Percocet 5/325] #40 tab Testosterone [Androderm 2mg/24 hr] 1 each TD DAILY patch.td24 06/14/17 proMETHazine tablet [Phenergan 25 mg PO Q4H PRN PRN tablet 06/14/17 tablet] Shaina [Ultra-Light Rollator] 1 shaina LACEY .QDAILY 180 Days #1 ea 08/28/17 Maternal Family History: No pertinent history Paternal Family History: No pertinent history Smoking Status: Former smoker Physical Exam Vital Signs Temp Pulse Resp BP 97.2 F L 83 16 137/74 H 09/18/17 10:20 09/18/17 10:20 09/18/17 10:20 09/18/17 10:20
--- NOTE | 2017-09-19 00:01 | HBO.PN.PCM_ITS ---
History of Present Illness Date of Service: 09/18/17 Presenting Chief Complaint: Nonhealing radiation pressure ulcer, abscess ulcer right gluteal/ischial area, Stage IV, with 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 BRYN TROTTER is a 62 year old currently undergoing hyperbaric oxygen therapy for nonhealing radiation pressure sore abscess ulcer right gluteal/ ischial area, Stage IV, with 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 Progress: This is his second cycle of hyperbaric oxygen therapy with treatment #1. Tolerance of hyperbaric oxygen therapy: Hyperbaric oxygen therapy was administered as per the facility's protocol. The patient tolerated hyperbaric oxygen therapy well, without complaints or complications. Upon emergence from the hyperbaric chamber today, the patient's vital signs remained stable. He was discharged in good condition. 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, stage 4 (Chronic) Anal cancer (Chronic) Hepatitis C carrier (Chronic) COPD (chronic obstructive pulmonary disease) (Chronic) Anxiety and depression (Chronic) HTN (hypertension) (Chronic) HLD (hyperlipidemia) (Chronic) GERD (gastroesophageal reflux disease) (Chronic) PAD (peripheral artery disease) (Chronic) Allergies/Adverse Reactions: Allergies povidone-iodine [From Betadine] Allergy (Verified 06/06/17 14:24) Hives Mqhpdwx-Erx-Ang Reductase Inhibitor Adverse Reaction (Verified 06/06/17 14:24) MESSED MY LIVER UP adhesive tape Allergy (Uncoded 06/06/17 14:24) Itching/rash Home Medications: Ambulatory Orders Medication Instructions Recorded Albuterol Inhaler [Ventolin Hfa] 2 puff INHALATION Q4H PRN PRN 03/22/16 Aspirin [Aspirin, Baby] 81 mg PO DAILY@0800 03/22/16 Escitalopram Oxalate [Lexapro] 10 mg PO QHS 03/22/16 Ezetimibe [Zetia] 10 mg PO QHS 03/22/16 Fluticasone 0.05% [Flonase Nasal 2 spray NASAL BID 03/22/16 [place]] Multivitamin [Multiple Vitamins] 1 each PO DAILY 03/22/16 Omeprazole [Prilosec] 40 mg PO QHS 03/22/16 buPROPion XL [Wellbutrin Xl] 300 mg PO QHS 03/22/16 busPIRone [Buspar] 5 mg PO TID 03/22/16 Tiotropium [place] [Spiriva 2 puff INHALATION DAILY 10/20/16 Respimat] Cholecalciferol (Vitamin D3) 1,000 unit PO DAILY 12/09/16 [Vitamin D3] Tizanidine HCl [Zanaflex] 4 mg PO Q6H PRN PRN 12/27/16 Metoprolol Tartrate 25 mg PO BID #60 tablet 01/04/17 Nutritional Supplement [Chuy - 1 packet PO BIDCM packet 01/04/17 [place] FLAVOR] Acetaminophen [Tylenol Tablet] 650 mg PO Q6H PRN PRN tablet 01/13/17 Gabapentin [Neurontin] 800 mg PO TIDCM tablet 01/13/17 Ibuprofen [Motrin] 800 mg PO TID 06/06/17 Triamterene 37.5MG/Hctz 25MG 0.5 cap PO DAILY 06/06/17 [Dyazide (G)] Testosterone [Androderm 2mg/24 hr] 1 each TD 06/08/17 Piperacil/Tazobactam [Zosyn] 3.375 gm IV Q8 40 Days #120 dose 06/13/17 Diazepam [Valium] 5 mg PO 4X/DAY PRN PRN #30 tab 06/14/17 DiphenhydrAMINE [Benadryl] 25 mg PO Q6H PRN capsule 06/14/17 Docusate Sodium [Colace] 100 mg PO BID capsule 06/14/17 Ensure Enlive 120 ml PO 4X/DAY liquid 06/14/17 Heparin Sodium,Porcine/Pf [Heparin 500 unit IV UD PRN syringe 06/14/17 500 Unit/5 ml (100/ml)] Ibuprofen [Motrin] 800 mg PO Q8H PRN PRN tablet 06/14/17 Ipratropium [Atrovent Aerosols] 0.5 mg INHALATION Q6HWA.RT 06/14/17 solution [place] Polysaccharide Complex 150 mg PO DAILYCM capsule 06/14/17 [Ferrex 150] Loperamide [Imodium] 2 mg PO Q4H PRN PRN capsule 06/14/17 Nutritional Supplement [Chuy - 1 packet PO BIDCM packet 06/14/17 [place] FLAVOR] Oxycodone HCl/Acetaminophen 1 - 2 tab PO 4X/DAY PRN PRN 5 Days 06/14/17 [Percocet 5/325] #40 tab Testosterone [Androderm 2mg/24 hr] 1 each TD DAILY patch.td24 06/14/17 proMETHazine tablet [Phenergan 25 mg PO Q4H PRN PRN tablet 06/14/17 tablet] Shaina [Ultra-Light Rollator] 1 shaina LACEY .QDAILY 180 Days #1 ea 08/28/17 Maternal Family History: No pertinent history Paternal Family History: No pertinent history Smoking Status: Former smoker Physical Exam Vital Signs Temp Pulse Resp BP 97.2 F L 83 16 137/74 H 09/18/17 10:20 09/18/17 10:20 09/18/17 10:20 09/18/17 10:20
[2017-09-19 09:52] VITALS: BP 137/100; BP 157/78; PULSE 78; RESP 16; RESP 19; TEMP 35.8; TEMP 36.8
--- NOTE | 2017-09-19 12:05 | HBO.PN.PCM_ITS ---
History of Present Illness Date of Service: 09/19/17 Presenting Chief Complaint: Nonhealing radiation pressure ulcer, abscess ulcer right gluteal/ischial area, Stage IV, with 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 BRYN TROTTER is a 62 year old currently undergoing hyperbaric oxygen therapy for nonhealing radiation pressure ulcer, abscess ulcer right gluteal/ ischial area, Stage IV, with 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 Progress: The patient appears to be doing well, having tolerated his second session of hyperbaric oxygen therapy well today. Tolerance of hyperbaric oxygen therapy: Hyperbaric oxygen therapy was administered as per the facility's protocol. The patient tolerated hyperbaric oxygen therapy without complaints or complications. Upon emergence from the hyperbaric chamber, the patient's vital signs remained stable. He was discharged in good condition. 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, stage 4 (Chronic) Anal cancer (Chronic) Hepatitis C carrier (Chronic) COPD (chronic obstructive pulmonary disease) (Chronic) Anxiety and depression (Chronic) HTN (hypertension) (Chronic) HLD (hyperlipidemia) (Chronic) GERD (gastroesophageal reflux disease) (Chronic) PAD (peripheral artery disease) (Chronic) Allergies/Adverse Reactions: Allergies povidone-iodine [From Betadine] Allergy (Verified 06/06/17 14:24) Hives Xrjpjoq-Yfd-Brw Reductase Inhibitor Adverse Reaction (Verified 06/06/17 14:24) MESSED MY LIVER UP adhesive tape Allergy (Uncoded 06/06/17 14:24) Itching/rash Home Medications: Ambulatory Orders Medication Instructions Recorded Albuterol Inhaler [Ventolin Hfa] 2 puff INHALATION Q4H PRN PRN 03/22/16 Aspirin [Aspirin, Baby] 81 mg PO DAILY@0800 03/22/16 Escitalopram Oxalate [Lexapro] 10 mg PO QHS 03/22/16 Ezetimibe [Zetia] 10 mg PO QHS 03/22/16 Fluticasone 0.05% [Flonase Nasal 2 spray NASAL BID 03/22/16 [place]] Multivitamin [Multiple Vitamins] 1 each PO DAILY 03/22/16 Omeprazole [Prilosec] 40 mg PO QHS 03/22/16 buPROPion XL [Wellbutrin Xl] 300 mg PO QHS 03/22/16 busPIRone [Buspar] 5 mg PO TID 03/22/16 Tiotropium [place] [Spiriva 2 puff INHALATION DAILY 10/20/16 Respimat] Cholecalciferol (Vitamin D3) 1,000 unit PO DAILY 12/09/16 [Vitamin D3] Tizanidine HCl [Zanaflex] 4 mg PO Q6H PRN PRN 12/27/16 Metoprolol Tartrate 25 mg PO BID #60 tablet 01/04/17 Nutritional Supplement [Chuy - 1 packet PO BIDCM packet 01/04/17 [place]] Acetaminophen [Tylenol Tablet] 650 mg PO Q6H PRN PRN tablet 01/13/17 Gabapentin [Neurontin] 800 mg PO TIDCM tablet 01/13/17 Ibuprofen [Motrin] 800 mg PO TID 06/06/17 Triamterene 37.5MG/Hctz 25MG 0.5 cap PO DAILY 06/06/17 [Dyazide (G)] Testosterone [Androderm 2mg/24 hr] 1 each TD 06/08/17 Piperacil/Tazobactam [Zosyn] 3.375 gm IV Q8 40 Days #120 dose 06/13/17 Diazepam [Valium] 5 mg PO 4X/DAY PRN PRN #30 tab 06/14/17 DiphenhydrAMINE [Benadryl] 25 mg PO Q6H PRN capsule 06/14/17 Docusate Sodium [Colace] 100 mg PO BID capsule 06/14/17 Ensure Enlive 120 ml PO 4X/DAY liquid 06/14/17 Heparin Sodium,Porcine/Pf [Heparin 500 unit IV UD PRN syringe 06/14/17 500 Unit/5 ml (100/ml)] Ibuprofen [Motrin] 800 mg PO Q8H PRN PRN tablet 06/14/17 Ipratropium [Atrovent Aerosols] 0.5 mg INHALATION Q6HWA.RT 06/14/17 solution Iron Polysaccharide Complex 150 mg PO DAILYCM capsule 06/14/17 [Ferrex 150] Loperamide [Imodium] 2 mg PO Q4H PRN PRN capsule 06/14/17 Nutritional Supplement [Chuy - 1 packet PO BIDCM packet 06/14/17 [place]] Oxycodone HCl/Acetaminophen 1 - 2 tab PO 4X/DAY PRN PRN 5 Days 06/14/17 [Percocet 5/325] #40 tab Testosterone [Androderm 2mg/24 hr] 1 each TD DAILY patch.td24 06/14/17 proMETHazine tablet [Phenergan 25 mg PO Q4H PRN PRN tablet 06/14/17 tablet] Walker [Ultra-Light Rollator] 1 shaina .QDAILY 180 Days #1 ea 08/28/17 Maternal Family History: No pertinent history Paternal Family History: No pertinent history Smoking Status: Former smoker Physical Exam Vital Signs Temp Pulse Resp BP 96.4 F L 78 19 H 137/100 H 09/19/17 09:52 09/19/17 09:52 09/19/17 09:52 09/19/17 09:52 General: Alert, Oriented x3, Cooperative, No apparent distress, Well developed, Well nourished HEENT: Atraumatic, PERRLA, EOMI, Normocephalic Lungs: Normal air movement Psych/Mental Status: Normal Affect, Appropriate, Alert and oriented to time, place, person, mood and affect Assessment/Plan The patient appears to be tolerating hyperbaric oxygen therapy well, which will be continued as per the patient's medical plan.
[2017-09-20 09:57] VITALS: BP 118/67; BP 135/73; PULSE 78; PULSE 82; RESP 16; TEMP 36; TEMP 36.6
[2017-09-20 12:02] VITALS: BP 135/73; PULSE 78; RESP 18; TEMP 36.7
--- NOTE | 2017-09-20 19:11 | PCM.HBO.PN ---
History of Present Illness Date of Service: 09/20/17 Presenting Chief Complaint: Nonhealing radiation pressure ulcer, abscess ulcer right gluteal/ischial area, Stage IV, with 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 BRYN TROTTER is a 62 year old currently undergoing hyperbaric oxygen therapy for nonhealing radiation pressure ulcer, abscess ulcer right gluteal/ischial area, Stage IV, with 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 Progress: The patient appears to be doing well, having tolerated his third session of hyperbaric oxygen therapy well today. Tolerance of hyperbaric oxygen therapy: Hyperbaric oxygen therapy was administered as per the facility's protocol. The patient tolerated hyperbaric oxygen therapy without complaints or complications. Upon emergence from the hyperbaric chamber, the patient's vital signs remained stable. He was discharged in good condition. 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, stage 4 (Chronic) Anal cancer (Chronic) Hepatitis C carrier (Chronic) COPD (chronic obstructive pulmonary disease) (Chronic) Anxiety and depression (Chronic) HTN (hypertension) (Chronic) HLD (hyperlipidemia) (Chronic) GERD (gastroesophageal reflux disease) (Chronic) PAD (peripheral artery disease) (Chronic) Allergies/Adverse Reactions: Allergies povidone-iodine [From Betadine] Allergy (Verified 06/06/17 14:24) Hives [id number]-[id number]-Ryu Reductase Inhibitor Adverse Reaction (Verified 06/06/17 14:24) MESSED MY LIVER UP adhesive tape Allergy (Uncoded 06/06/17 14:24) Itching/rash Home Medications: Ambulatory Orders Medication Instructions Recorded Albuterol Inhaler [Ventolin Hfa] 2 puff INHALATION Q4H PRN PRN 03/22/16 Aspirin [Aspirin, Baby] 81 mg PO DAILY@0800 03/22/16 Escitalopram Oxalate [Lexapro] 10 mg PO QHS 03/22/16 Ezetimibe [Zetia] 10 mg PO QHS 03/22/16 Fluticasone 0.05% [Flonase Nasal 2 spray NASAL BID 03/22/16 [place]] Multivitamin [Multiple Vitamins] 1 each PO DAILY 03/22/16 Omeprazole [Prilosec] 40 mg PO QHS 03/22/16 buPROPion XL [Wellbutrin Xl] 300 mg PO QHS 03/22/16 busPIRone [Buspar] 5 mg PO TID 03/22/16 Tiotropium [place] [Spiriva 2 puff INHALATION DAILY 10/20/16 Respimat] Cholecalciferol (Vitamin D3) 1,000 unit PO DAILY 12/09/16 [Vitamin D3] Tizanidine HCl [Zanaflex] 4 mg PO Q6H PRN PRN 12/27/16 Metoprolol Tartrate 25 mg PO BID #60 tablet 01/04/17 Nutritional Supplement [Chuy - 1 packet PO BIDCM packet 01/04/17 [place]] Acetaminophen [Tylenol Tablet] 650 mg PO Q6H PRN PRN tablet 01/13/17 Gabapentin [Neurontin] 800 mg PO TIDCM tablet 01/13/17 Ibuprofen [Motrin] 800 mg PO TID 06/06/17 Triamterene 37.5MG/Hctz 25MG 0.5 cap PO DAILY 06/06/17 [Dyazide (G)] Testosterone [Androderm 2mg/24 hr] 1 each TD 06/08/17 Piperacil/Tazobactam [Zosyn] 3.375 gm IV Q8 40 Days #120 dose 06/13/17 Diazepam [Valium] 5 mg PO 4X/DAY PRN PRN #30 tab 06/14/17 DiphenhydrAMINE [Benadryl] 25 mg PO Q6H PRN capsule 06/14/17 Docusate Sodium [Colace] 100 mg PO BID capsule 06/14/17 Ensure Enlive 120 ml PO 4X/DAY liquid 06/14/17 Heparin Sodium,Porcine/Pf [Heparin 500 unit IV UD PRN syringe 06/14/17 500 Unit/5 ml (100/ml)] Ibuprofen [Motrin] 800 mg PO Q8H PRN PRN tablet 06/14/17 Ipratropium [Atrovent Aerosols] 0.5 mg INHALATION Q6HWA.RT 06/14/17 solution Iron Polysaccharide Complex 150 mg PO DAILYCM capsule 06/14/17 [Ferrex 150] Loperamide [Imodium] 2 mg PO Q4H PRN PRN capsule 06/14/17 Nutritional Supplement [Chuy - 1 packet PO BIDCM packet 06/14/17 [place]] Oxycodone HCl/Acetaminophen 1 - 2 tab PO 4X/DAY PRN PRN 5 Days 06/14/17 [Percocet 5/325] #40 tab Testosterone [Androderm 2mg/24 hr] 1 each TD DAILY patch.td24 06/14/17 proMETHazine tablet [Phenergan 25 mg PO Q4H PRN PRN tablet 06/14/17 tablet] [place] [Ultra-Light Rollator] 1 shaina .QDAILY 180 Days #1 ea 08/28/17 Maternal Family History: No pertinent history Paternal Family History: No pertinent history Smoking Status: Former smoker Physical Exam Vital Signs Temp Pulse Resp BP 98.1 F 78 18 135/73 H 09/20/17 12:02 09/20/17 12:02 09/20/17 12:02 09/20/17 12:02 General: Alert, Oriented x3, Cooperative, No apparent distress HEENT: Atraumatic Lungs: Normal air movement Psych/Mental Status: Normal Affect Assessment/Plan The patient appears to be tolerating hyperbaric oxygen therapy well, which will be continued as per the patient's medical plan.
[2017-09-21 09:59] VITALS: BP 124/69; BP 132/73; PULSE 74; PULSE 78; RESP 16; TEMP 36.3; TEMP 36.4
--- NOTE | 2017-09-21 12:35 | HBO.PN.PCM_ITS ---
History of Present Illness Date of Service: 09/21/17 Presenting Chief Complaint: Nonhealing radiation pressure ulcer, abscess ulcer right gluteal/ischial area, Stage IV, with 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 BRYN TROTTER is a 62 year old currently undergoing hyperbaric oxygen therapy for nonhealing radiation pressure ulcer, abscess ulcer right gluteal/ ischial area, Stage IV, with 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 Progress: The patient appears to be doing well, having tolerated his 4th session of hyperbaric oxygen therapy well today. Tolerance of hyperbaric oxygen therapy: Hyperbaric oxygen therapy was administered as per the facility's protocol. The patient tolerated hyperbaric oxygen therapy without complaints or complications. Upon emergence from the hyperbaric chamber, the patient's vital signs remained stable. He was discharged in good condition. 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, stage 4 (Chronic) Anal cancer (Chronic) Hepatitis C carrier (Chronic) COPD (chronic obstructive pulmonary disease) (Chronic) Anxiety and depression (Chronic) HTN (hypertension) (Chronic) HLD (hyperlipidemia) (Chronic) GERD (gastroesophageal reflux disease) (Chronic) PAD (peripheral artery disease) (Chronic) Allergies/Adverse Reactions: Allergies povidone-iodine [From Betadine] Allergy (Verified 06/06/17 14:24) Hives Yudtfec-Urw-Qzj Reductase Inhibitor Adverse Reaction (Verified 06/06/17 14:24) MESSED MY LIVER UP adhesive tape Allergy (Uncoded 06/06/17 14:24) Itching/rash Home Medications: Ambulatory Orders Medication Instructions Recorded Albuterol Inhaler [Ventolin Hfa] 2 puff INHALATION Q4H PRN PRN 03/22/16 Aspirin [Aspirin, Baby] 81 mg PO DAILY@0800 03/22/16 Escitalopram Oxalate [Lexapro] 10 mg PO QHS 03/22/16 Ezetimibe [Zetia] 10 mg PO QHS 03/22/16 Fluticasone 0.05% [Flonase Nasal 2 spray NASAL BID 03/22/16 [place]] Multivitamin [Multiple Vitamins] 1 each PO DAILY 03/22/16 Omeprazole [Prilosec] 40 mg PO QHS 03/22/16 buPROPion XL [Wellbutrin Xl] 300 mg PO QHS 03/22/16 busPIRone [Buspar] 5 mg PO TID 03/22/16 Tiotropium [place] [Spiriva 2 puff INHALATION DAILY 10/20/16 Respimat] Cholecalciferol (Vitamin D3) 1,000 unit PO DAILY 12/09/16 [Vitamin D3] Tizanidine HCl [Zanaflex] 4 mg PO Q6H PRN PRN 12/27/16 Metoprolol Tartrate 25 mg PO BID #60 tablet 01/04/17 Nutritional Supplement [[place]uy - 1 packet PO BIDCM packet 01/04/17 [place]] Acetaminophen [Tylenol Tablet] 650 mg PO Q6H PRN PRN tablet 01/13/17 Gabapentin [Neurontin] 800 mg PO TIDCM tablet 01/13/17 Ibuprofen [Motrin] 800 mg PO TID 06/06/17 Triamterene 37.5MG/Hctz 25MG 0.5 cap PO DAILY 06/06/17 [Dyazide (G)] Testosterone [Androderm 2mg/24 hr] 1 each TD 06/08/17 Piperacil/Tazobactam [Zosyn] 3.375 gm IV Q8 40 Days #120 dose 06/13/17 Diazepam [Valium] 5 mg PO 4X/DAY PRN PRN #30 tab 06/14/17 DiphenhydrAMINE [Benadryl] 25 mg PO Q6H PRN capsule 06/14/17 Docusate Sodium [Colace] 100 mg PO BID capsule 06/14/17 Ensure Enlive 120 ml PO 4X/DAY liquid 06/14/17 Heparin Sodium,Porcine/Pf [Heparin 500 unit IV UD PRN syringe 06/14/17 500 Unit/5 ml (100/ml)] Ibuprofen [Motrin] 800 mg PO Q8H PRN PRN tablet 06/14/17 Ipratropium [Atrovent Aerosols] 0.5 mg INHALATION Q6HWA.RT 06/14/17 solution Iron Polysaccharide Complex 150 mg PO DAILYCM capsule 06/14/17 [Ferrex 150] Loperamide [Imodium] 2 mg PO Q4H PRN PRN capsule 06/14/17 Nutritional Supplement [[place] - 1 packet PO BIDCM packet 06/14/17 [place]] Oxycodone HCl/Acetaminophen 1 - 2 tab PO 4X/DAY PRN PRN 5 Days 06/14/17 [Percocet 5/325] #40 tab Testosterone [Androderm 2mg/24 hr] 1 each TD DAILY patch.td24 06/14/17 proMETHazine tablet [Phenergan 25 mg PO Q4H PRN PRN tablet 06/14/17 tablet] [place] [Ultra-Light Rollator] 1 shaina .QDAILY 180 Days #1 ea 08/28/17 Maternal Family History: No pertinent history Paternal Family History: No pertinent history Smoking Status: Former smoker Physical Exam Vital Signs Temp Pulse Resp BP 97.3 F L 78 16 124/69 H 09/21/17 09:59 09/21/17 09:59 09/21/17 09:59 09/21/17 09:59 General: Alert, Oriented x3, Cooperative HEENT: Atraumatic Lungs: Normal air movement Psych/Mental Status: Normal Affect Assessment/Plan The patient appears to be tolerating hyperbaric oxygen therapy well, which will be continued as per the patient's medical plan.
[2017-09-22 10:07] VITALS: BP 134/78; BP 134/81; PULSE 74; PULSE 79; RESP 16; TEMP 36; TEMP 36.7
--- NOTE | 2017-09-22 11:13 | HBO.PN.PCM_ITS ---
History of Present Illness Date of Service: 09/22/17 Presenting Chief Complaint: Nonhealing radiation pressure ulcer, abscess ulcer right gluteal/ischial area, Stage IV, with 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 BRYN TROTTER is a 62 year old currently undergoing hyperbaric oxygen therapy for nonhealing radiation pressure ulcer, abscess ulcer right gluteal/ ischial area, Stage IV, with 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 Progress: The patient appears to be doing well, having tolerated his 4th session of hyperbaric oxygen therapy well today. Tolerance of hyperbaric oxygen therapy: Hyperbaric oxygen therapy was administered as per the facility's protocol. The patient tolerated hyperbaric oxygen therapy without complaints or complications. Upon emergence from the hyperbaric chamber, the patient's vital signs remained stable. He was discharged in good condition. 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, stage 4 (Chronic) Anal cancer (Chronic) Hepatitis C carrier (Chronic) COPD (chronic obstructive pulmonary disease) (Chronic) Anxiety and depression (Chronic) HTN (hypertension) (Chronic) HLD (hyperlipidemia) (Chronic) GERD (gastroesophageal reflux disease) (Chronic) PAD (peripheral artery disease) (Chronic) Allergies/Adverse Reactions: Allergies povidone-iodine [From Betadine] Allergy (Verified 06/06/17 14:24) Hives Grgfvow-Ynt-Dir Reductase Inhibitor Adverse Reaction (Verified 06/06/17 14:24) MESSED MY LIVER UP adhesive tape Allergy (Uncoded 06/06/17 14:24) Itching/rash Home Medications: Ambulatory Orders Medication Instructions Recorded Albuterol Inhaler [Ventolin Hfa] 2 puff INHALATION Q4H PRN PRN 03/22/16 Aspirin [Aspirin, Baby] 81 mg PO DAILY@0800 03/22/16 Escitalopram Oxalate [Lexapro] 10 mg PO QHS 03/22/16 Ezetimibe [Zetia] 10 mg PO QHS 03/22/16 Fluticasone 0.05% [Flonase Nasal 2 spray NASAL BID 03/22/16 [place]] Multivitamin [Multiple Vitamins] 1 each PO DAILY 03/22/16 Omeprazole [Prilosec] 40 mg PO QHS 03/22/16 buPROPion XL [Wellbutrin Xl] 300 mg PO QHS 03/22/16 busPIRone [Buspar] 5 mg PO TID 03/22/16 Tiotropium [place] [Spiriva 2 puff INHALATION DAILY 10/20/16 Respimat] Cholecalciferol (Vitamin D3) 1,000 unit PO DAILY 12/09/16 [Vitamin D3] Tizanidine HCl [Zanaflex] 4 mg PO Q6H PRN PRN 12/27/16 Metoprolol Tartrate 25 mg PO BID #60 tablet 01/04/17 Nutritional Supplement [Chuy - 1 packet PO BIDCM packet 01/04/17 [place]] Acetaminophen [Tylenol Tablet] 650 mg PO Q6H PRN PRN tablet 01/13/17 Gabapentin [Neurontin] 800 mg PO TIDCM tablet 01/13/17 Ibuprofen [Motrin] 800 mg PO TID 06/06/17 Triamterene 37.5MG/Hctz 25MG 0.5 cap PO DAILY 06/06/17 [Dyazide (G)] Testosterone [Androderm 2mg/24 hr] 1 each TD 06/08/17 Piperacil/Tazobactam [Zosyn] 3.375 gm IV Q8 40 Days #120 dose 06/13/17 Diazepam [Valium] 5 mg PO 4X/DAY PRN PRN #30 tab 06/14/17 DiphenhydrAMINE [Benadryl] 25 mg PO Q6H PRN capsule 06/14/17 Docusate Sodium [Colace] 100 mg PO BID capsule 06/14/17 Ensure Enlive 120 ml PO 4X/DAY liquid 06/14/17 Heparin Sodium,Porcine/Pf [Heparin 500 unit IV UD PRN syringe 06/14/17 500 Unit/5 ml (100/ml)] Ibuprofen [Motrin] 800 mg PO Q8H PRN PRN tablet 06/14/17 Ipratropium [Atrovent Aerosols] 0.5 mg INHALATION Q6HWA.RT 06/14/17 solution Iron Polysaccharide Complex 150 mg PO DAILYCM capsule 06/14/17 [Ferrex 150] Loperamide [Imodium] 2 mg PO Q4H PRN PRN capsule 06/14/17 Nutritional Supplement [[place] - 1 packet PO BIDCM packet 06/14/17 [place]] Oxycodone HCl/Acetaminophen 1 - 2 tab PO 4X/DAY PRN PRN 5 Days 06/14/17 [Percocet 5/325] #40 tab Testosterone [Androderm 2mg/24 hr] 1 each TD DAILY patch.td24 06/14/17 proMETHazine tablet [Phenergan 25 mg PO Q4H PRN PRN tablet 06/14/17 tablet] Shaina [Ultra-Light Rollator] 1 shaina .QDAILY 180 Days #1 ea 08/28/17 Maternal Family History: No pertinent history Paternal Family History: No pertinent history Smoking Status: Former smoker Physical Exam Vital Signs Temp Pulse Resp BP 96.8 F L 79 16 134/78 H 09/22/17 10:07 09/22/17 10:07 09/22/17 10:07 09/22/17 10:07 Assessment/Plan The patient appears to be tolerating hyperbaric oxygen therapy well, which will be continued as per the patient's medical plan.
[2017-09-25 09:48] VITALS: BP 138/80; BP 144/77; PULSE 75; PULSE 84; RESP 16; TEMP 36.5; TEMP 36.8
--- NOTE | 2017-09-26 | HBO.PN.PCM_ITS ---
History of Present Illness Date of Service: 09/25/17 Presenting Chief Complaint: Nonhealing radiation pressure ulcer, abscess ulcer right gluteal/ischial area, Stage IV, with 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 BRYN TROTTER is a 62 year old currently undergoing hyperbaric oxygen therapy for nonhealing radiation pressure sore abscess ulcer right gluteal/ ischial area, Stage IV, with 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 Progress: This is his second cycle of hyperbaric oxygen therapy with treatment #6. Tolerance of hyperbaric oxygen therapy: Hyperbaric oxygen therapy was administered as per the facility's protocol. The patient tolerated hyperbaric oxygen therapy well, without complaints or complications. Upon emergence from the hyperbaric chamber today, the patient's vital signs remained stable. He was discharged in good condition. 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, stage 4 (Chronic) Anal cancer (Chronic) Hepatitis C carrier (Chronic) COPD (chronic obstructive pulmonary disease) (Chronic) Anxiety and depression (Chronic) HTN (hypertension) (Chronic) HLD (hyperlipidemia) (Chronic) GERD (gastroesophageal reflux disease) (Chronic) PAD (peripheral artery disease) (Chronic) Allergies/Adverse Reactions: Allergies povidone-iodine [From Betadine] Allergy (Verified 06/06/17 14:24) Hives [id number]-Ryl-Vvr Reductase Inhibitor Adverse Reaction (Verified 06/06/17 14:24) MESSED MY LIVER UP adhesive tape Allergy (Uncoded 06/06/17 14:24) Itching/rash Home Medications: Ambulatory Orders Medication Instructions Recorded Albuterol Inhaler [Ventolin Hfa] 2 puff INHALATION Q4H PRN PRN 03/22/16 Aspirin [Aspirin, Baby] 81 mg PO DAILY@0800 03/22/16 Escitalopram Oxalate [Lexapro] 10 mg PO QHS 03/22/16 Ezetimibe [Zetia] 10 mg PO QHS 03/22/16 Fluticasone 0.05% [Flonase Nasal 2 spray NASAL BID 03/22/16 [place]] Multivitamin [Multiple Vitamins] 1 each PO DAILY 03/22/16 Omeprazole [Prilosec] 40 mg PO QHS 03/22/16 buPROPion XL [Wellbutrin Xl] 300 mg PO QHS 03/22/16 busPIRone [Buspar] 5 mg PO TID 03/22/16 Tiotropium [place] [Spiriva 2 puff INHALATION DAILY 10/20/16 Respimat] Cholecalciferol (Vitamin D3) 1,000 unit PO DAILY 12/09/16 [Vitamin D3] Tizanidine HCl [Zanaflex] 4 mg PO Q6H PRN PRN 12/27/16 Metoprolol Tartrate 25 mg PO BID #60 tablet 01/04/17 Nutritional Supplement [[place] - 1 packet PO BIDCM packet 01/04/17 [place]] Acetaminophen [Tylenol Tablet] 650 mg PO Q6H PRN PRN tablet 01/13/17 Gabapentin [Neurontin] 800 mg PO TIDCM tablet 01/13/17 Ibuprofen [Motrin] 800 mg PO TID 06/06/17 Triamterene 37.5MG/Hctz 25MG 0.5 cap PO DAILY 06/06/17 [Dyazide (G)] Testosterone [Androderm 2mg/24 hr] 1 each TD 06/08/17 Piperacil/Tazobactam [Zosyn] 3.375 gm IV Q8 40 Days #120 dose 06/13/17 Diazepam [Valium] 5 mg PO 4X/DAY PRN PRN #30 tab 06/14/17 DiphenhydrAMINE [Benadryl] 25 mg PO Q6H PRN capsule 06/14/17 Docusate Sodium [Colace] 100 mg PO BID capsule 06/14/17 Ensure Enlive 120 ml PO 4X/DAY liquid 06/14/17 Heparin Sodium,Porcine/Pf [Heparin 500 unit IV UD PRN syringe 06/14/17 500 Unit/5 ml (100/ml)] Ibuprofen [Motrin] 800 mg PO Q8H PRN PRN tablet 06/14/17 Ipratropium [Atrovent Aerosols] 0.5 mg INHALATION Q6HWA.RT 06/14/17 solution Iron Polysaccharide Complex 150 mg PO DAILYCM capsule 06/14/17 [Ferrex 150] Loperamide [Imodium] 2 mg PO Q4H PRN PRN capsule 06/14/17 Nutritional Supplement [[place] - 1 packet PO BIDCM packet 06/14/17 [place]] Oxycodone HCl/Acetaminophen 1 - 2 tab PO 4X/DAY PRN PRN 5 Days 06/14/17 [Percocet 5/325] #40 tab Testosterone [Androderm 2mg/24 hr] 1 each TD DAILY patch.td24 06/14/17 proMETHazine tablet [Phenergan 25 mg PO Q4H PRN PRN tablet 06/14/17 tablet] Shaina [Ultra-Light Rollator] 1 shaina LACEY .QDAILY 180 Days #1 ea 08/28/17 Maternal Family History: No pertinent history Paternal Family History: No pertinent history Smoking Status: Former smoker Physical Exam Vital Signs Temp Pulse Resp BP 97.7 F L 84 16 144/77 H 09/25/17 09:48 09/25/17 09:48 09/25/17 09:48 09/25/17 09:48
[2017-09-26 10:24] VITALS: BP 113/90; BP 150/80; PULSE 68; PULSE 80; RESP 16; TEMP 36; TEMP 36.6
--- NOTE | 2017-09-26 11:27 | PCM.HBO.PN ---
History of Present Illness Date of Service: 09/26/17 Presenting Chief Complaint: Nonhealing radiation pressure ulcer, abscess ulcer right gluteal/ischial area, Stage IV, with 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 BRYN TROTTER is a 62 year old currently undergoing hyperbaric oxygen therapy for nonhealing radiation pressure ulcer, abscess ulcer right gluteal/ischial area, Stage IV, with 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 Progress: The patient appears to be doing well, having tolerated his 7th session of hyperbaric oxygen therapy well today. Tolerance of hyperbaric oxygen therapy: Hyperbaric oxygen therapy was administered as per the facility's protocol. The patient tolerated hyperbaric oxygen therapy without complaints or complications. Upon emergence from the hyperbaric chamber, the patient's vital signs remained stable. He was discharged in good condition. 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, stage 4 (Chronic) Anal cancer (Chronic) Hepatitis C carrier (Chronic) COPD (chronic obstructive pulmonary disease) (Chronic) Anxiety and depression (Chronic) HTN (hypertension) (Chronic) HLD (hyperlipidemia) (Chronic) GERD (gastroesophageal reflux disease) (Chronic) PAD (peripheral artery disease) (Chronic) Allergies/Adverse Reactions: Allergies povidone-iodine [From Betadine] Allergy (Verified 06/06/17 14:24) Hives Wtviymv-Lcj-Kwk Reductase Inhibitor Adverse Reaction (Verified 06/06/17 14:24) MESSED MY LIVER UP adhesive tape Allergy (Uncoded 06/06/17 14:24) Itching/rash Home Medications: Ambulatory Orders Medication Instructions Recorded Albuterol Inhaler [Ventolin Hfa] 2 puff INHALATION Q4H PRN PRN 03/22/16 Aspirin [Aspirin, Baby] 81 mg PO DAILY@0800 03/22/16 Escitalopram Oxalate [Lexapro] 10 mg PO QHS 03/22/16 Ezetimibe [Zetia] 10 mg PO QHS 03/22/16 Fluticasone 0.05% [Flonase Nasal 2 spray NASAL BID 03/22/16 [place]] Multivitamin [Multiple Vitamins] 1 each PO DAILY 03/22/16 Omeprazole [Prilosec] 40 mg PO QHS 03/22/16 buPROPion XL [Wellbutrin Xl] 300 mg PO QHS 03/22/16 busPIRone [Buspar] 5 mg PO TID 03/22/16 Tiotropium [place] [Spiriva 2 puff INHALATION DAILY 10/20/16 Respimat] Cholecalciferol (Vitamin D3) 1,000 unit PO DAILY 12/09/16 [Vitamin D3] Tizanidine HCl [Zanaflex] 4 mg PO Q6H PRN PRN 12/27/16 Metoprolol Tartrate 25 mg PO BID #60 tablet 01/04/17 Nutritional Supplement [Chuy - 1 packet PO BIDCM packet 01/04/17 [place]] Acetaminophen [Tylenol Tablet] 650 mg PO Q6H PRN PRN tablet 01/13/17 Gabapentin [Neurontin] 800 mg PO TIDCM tablet 01/13/17 Ibuprofen [Motrin] 800 mg PO TID 06/06/17 Triamterene 37.5MG/Hctz 25MG 0.5 cap PO DAILY 06/06/17 [Dyazide (G)] Testosterone [Androderm 2mg/24 hr] 1 each TD 06/08/17 Piperacil/Tazobactam [Zosyn] 3.375 gm IV Q8 40 Days #120 dose 06/13/17 Diazepam [Valium] 5 mg PO 4X/DAY PRN PRN #30 tab 06/14/17 DiphenhydrAMINE [Benadryl] 25 mg PO Q6H PRN capsule 06/14/17 Docusate Sodium [Colace] 100 mg PO BID capsule 06/14/17 Ensure Enlive 120 ml PO 4X/DAY liquid 06/14/17 Heparin Sodium,Porcine/Pf [Heparin 500 unit IV UD PRN syringe 06/14/17 500 Unit/5 ml (100/ml)] Ibuprofen [Motrin] 800 mg PO Q8H PRN PRN tablet 06/14/17 Ipratropium [Atrovent Aerosols] 0.5 mg INHALATION Q6HWA.RT 06/14/17 solution Iron Polysaccharide Complex 150 mg PO DAILYCM capsule 06/14/17 [Ferrex 150] Loperamide [Imodium] 2 mg PO Q4H PRN PRN capsule 06/14/17 Nutritional Supplement [Chuy - 1 packet PO BIDCM packet 06/14/17 [place]] Oxycodone HCl/Acetaminophen 1 - 2 tab PO 4X/DAY PRN PRN 5 Days 06/14/17 [Percocet 5/325] #40 tab Testosterone [Androderm 2mg/24 hr] 1 each TD DAILY patch.td24 06/14/17 proMETHazine tablet [Phenergan 25 mg PO Q4H PRN PRN tablet 06/14/17 tablet] Walker [Ultra-Light Rollator] 1 shaina .QDAILY 180 Days #1 ea 08/28/17 Maternal Family History: No pertinent history Paternal Family History: No pertinent history Smoking Status: Former smoker Physical Exam Vital Signs Temp Pulse Resp BP 96.8 F L 80 16 113/90 H 09/26/17 10:24 09/26/17 10:24 09/26/17 10:24 09/26/17 10:24 General: Alert, Oriented x3, Cooperative, No apparent distress, Well developed, Well nourished HEENT: Atraumatic, PERRLA, EOMI, Normocephalic Lungs: Normal air movement Psych/Mental Status: Normal Affect, Appropriate, Alert and oriented to time, place, person, mood and affect Assessment/Plan The patient appears to be tolerating hyperbaric oxygen therapy well, which will continue as per the patient's medical plan.
[2017-09-27 10:14] VITALS: BP 136/76; BP 149/84; PULSE 78; PULSE 80; RESP 16; TEMP 36.2; TEMP 36.6
--- NOTE | 2017-09-27 13:58 | HBO.PN.PCM_ITS ---
History of Present Illness Date of Service: 09/27/17 Presenting Chief Complaint: Nonhealing radiation pressure ulcer, abscess ulcer right gluteal/ischial area, Stage IV, with 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 BRYN TROTTER is a 62 year old currently undergoing hyperbaric oxygen therapy for nonhealing radiation pressure ulcer, abscess ulcer right gluteal/ ischial area, Stage IV, with 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 Progress: The patient appears to be doing well, having tolerated his 8th session of hyperbaric oxygen therapy well today. Tolerance of hyperbaric oxygen therapy: Hyperbaric oxygen therapy was administered as per the facility's protocol. The patient tolerated hyperbaric oxygen therapy without complaints or complications. Upon emergence from the hyperbaric chamber, the patient's vital signs remained stable. He was discharged in good condition. 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, stage 4 (Chronic) Anal cancer (Chronic) Hepatitis C carrier (Chronic) COPD (chronic obstructive pulmonary disease) (Chronic) Anxiety and depression (Chronic) HTN (hypertension) (Chronic) HLD (hyperlipidemia) (Chronic) GERD (gastroesophageal reflux disease) (Chronic) PAD (peripheral artery disease) (Chronic) Allergies/Adverse Reactions: Allergies povidone-iodine [From Betadine] Allergy (Verified 06/06/17 14:24) Hives Ojlrfvi-Ffk-Sxs Reductase Inhibitor Adverse Reaction (Verified 06/06/17 14:24) MESSED MY LIVER UP adhesive tape Allergy (Uncoded 06/06/17 14:24) Itching/rash Home Medications: Ambulatory Orders Medication Instructions Recorded Albuterol Inhaler [Ventolin Hfa] 2 puff INHALATION Q4H PRN PRN 03/22/16 Aspirin [Aspirin, Baby] 81 mg PO DAILY@0800 03/22/16 Escitalopram Oxalate [Lexapro] 10 mg PO QHS 03/22/16 Ezetimibe [Zetia] 10 mg PO QHS 03/22/16 Fluticasone 0.05% [Flonase Nasal 2 spray NASAL BID 03/22/16 [place]] Multivitamin [Multiple Vitamins] 1 each PO DAILY 03/22/16 Omeprazole [Prilosec] 40 mg PO QHS 03/22/16 buPROPion XL [Wellbutrin Xl] 300 mg PO QHS 03/22/16 busPIRone [Buspar] 5 mg PO TID 03/22/16 Tiotropium [place] [Spiriva 2 puff INHALATION DAILY 10/20/16 Respimat] Cholecalciferol (Vitamin D3) 1,000 unit PO DAILY 12/09/16 [Vitamin D3] Tizanidine HCl [Zanaflex] 4 mg PO Q6H PRN PRN 12/27/16 Metoprolol Tartrate 25 mg PO BID #60 tablet 01/04/17 Nutritional Supplement [Chuy - 1 packet PO BIDCM packet 01/04/17 [place]] Acetaminophen [Tylenol Tablet] 650 mg PO Q6H PRN PRN tablet 01/13/17 Gabapentin [Neurontin] 800 mg PO TIDCM tablet 01/13/17 Ibuprofen [Motrin] 800 mg PO TID 06/06/17 Triamterene 37.5MG/Hctz 25MG 0.5 cap PO DAILY 06/06/17 [Dyazide (G)] Testosterone [Androderm 2mg/24 hr] 1 each TD 06/08/17 Piperacil/Tazobactam [Zosyn] 3.375 gm IV Q8 40 Days #120 dose 06/13/17 Diazepam [Valium] 5 mg PO 4X/DAY PRN PRN #30 tab 06/14/17 DiphenhydrAMINE [Benadryl] 25 mg PO Q6H PRN capsule 06/14/17 Docusate Sodium [Colace] 100 mg PO BID capsule 06/14/17 Ensure Enlive 120 ml PO 4X/DAY liquid 06/14/17 Heparin Sodium,Porcine/Pf [Heparin 500 unit IV UD PRN syringe 06/14/17 500 Unit/5 ml (100/ml)] Ibuprofen [Motrin] 800 mg PO Q8H PRN PRN tablet 06/14/17 Ipratropium [Atrovent Aerosols] 0.5 mg INHALATION Q6HWA.RT 06/14/17 solution Iron Polysaccharide Complex 150 mg PO DAILYCM capsule 06/14/17 [Ferrex 150] Loperamide [Imodium] 2 mg PO Q4H PRN PRN capsule 06/14/17 Nutritional Supplement [Chuy - 1 packet PO BIDCM packet 06/14/17 [place]] Oxycodone HCl/Acetaminophen 1 - 2 tab PO 4X/DAY PRN PRN 5 Days 06/14/17 [Percocet 5/325] #40 tab Testosterone [Androderm 2mg/24 hr] 1 each TD DAILY patch.td24 06/14/17 proMETHazine tablet [Phenergan 25 mg PO Q4H PRN PRN tablet 06/14/17 tablet] [place] [Ultra-Light Rollator] 1 shaina .QDAILY 180 Days #1 ea 08/28/17 Maternal Family History: No pertinent history Paternal Family History: No pertinent history Smoking Status: Former smoker Physical Exam Vital Signs Temp Pulse Resp BP 97.2 F L 78 16 149/84 H 09/27/17 10:14 09/27/17 10:14 09/27/17 10:14 09/27/17 10:14 General: Alert, Oriented x3, Cooperative HEENT: Atraumatic Lungs: Normal air movement Psych/Mental Status: Normal Affect Assessment/Plan The patient appears to be tolerating hyperbaric oxygen therapy well, which will continue as per the patient's medical plan.
[2017-09-28 11:08] VITALS: BP 133/72; BP 145/82; PULSE 72; PULSE 82; RESP 16; TEMP 35.7; TEMP 36.7
--- NOTE | 2017-09-28 12:22 | HBO.PN.PCM_ITS ---
History of Present Illness Date of Service: 09/28/17 Presenting Chief Complaint: Nonhealing radiation pressure ulcer, abscess ulcer right gluteal/ischial area, Stage IV, with 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 BRYN TROTTER is a 62 year old currently undergoing hyperbaric oxygen therapy for nonhealing radiation pressure ulcer, abscess ulcer right gluteal/ ischial area, Stage IV, with 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 Progress: The patient appears to be doing well, having tolerated his 9th session of hyperbaric oxygen therapy well today. Tolerance of hyperbaric oxygen therapy: Hyperbaric oxygen therapy was administered as per the facility's protocol. The patient tolerated hyperbaric oxygen therapy without complaints or complications. Upon emergence from the hyperbaric chamber, the patient's vital signs remained stable. He was discharged in good condition. 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, stage 4 (Chronic) Anal cancer (Chronic) Hepatitis C carrier (Chronic) COPD (chronic obstructive pulmonary disease) (Chronic) Anxiety and depression (Chronic) HTN (hypertension) (Chronic) HLD (hyperlipidemia) (Chronic) GERD (gastroesophageal reflux disease) (Chronic) PAD (peripheral artery disease) (Chronic) Allergies/Adverse Reactions: Allergies povidone-iodine [From Betadine] Allergy (Verified 06/06/17 14:24) Hives Qzblpbz-Mmk-Tiz Reductase Inhibitor Adverse Reaction (Verified 06/06/17 14:24) MESSED MY LIVER UP adhesive tape Allergy (Uncoded 06/06/17 14:24) Itching/rash Home Medications: Ambulatory Orders Medication Instructions Recorded Albuterol Inhaler [Ventolin Hfa] 2 puff INHALATION Q4H PRN PRN 03/22/16 Aspirin [Aspirin, Baby] 81 mg PO DAILY@0800 03/22/16 Escitalopram Oxalate [Lexapro] 10 mg PO QHS 03/22/16 Ezetimibe [Zetia] 10 mg PO QHS 03/22/16 Fluticasone 0.05% [Flonase Nasal 2 spray NASAL BID 03/22/[address]] Multivitamin [Multiple Vitamins] 1 each PO DAILY 03/22/16 Omeprazole [Prilosec] 40 mg PO QHS 03/22/16 buPROPion XL [Wellbutrin Xl] 300 mg PO QHS 03/22/16 busPIRone [Buspar] 5 mg PO TID 03/22/16 Tiotropium [place] [Spiriva 2 puff INHALATION DAILY 10/20/16 Respimat] Cholecalciferol (Vitamin D3) 1,000 unit PO DAILY 12/09/16 [Vitamin D3] Tizanidine HCl [Zanaflex] 4 mg PO Q6H PRN PRN 12/27/16 Metoprolol Tartrate 25 mg PO BID #60 tablet 01/04/17 Nutritional Supplement [Chuy - 1 packet PO BIDCM packet 01/04/17 [place]] Acetaminophen [Tylenol Tablet] 650 mg PO Q6H PRN PRN tablet 01/13/17 Gabapentin [Neurontin] 800 mg PO TIDCM tablet 01/13/17 Ibuprofen [Motrin] 800 mg PO TID 06/06/17 Triamterene 37.5MG/Hctz 25MG 0.5 cap PO DAILY 06/06/17 [Dyazide (G)] Testosterone [Androderm 2mg/24 hr] 1 each TD 06/08/17 Piperacil/Tazobactam [Zosyn] 3.375 gm IV Q8 40 Days #120 dose 06/13/17 Diazepam [Valium] 5 mg PO 4X/DAY PRN PRN #30 tab 06/14/17 DiphenhydrAMINE [Benadryl] 25 mg PO Q6H PRN capsule 06/14/17 Docusate Sodium [Colace] 100 mg PO BID capsule 06/14/17 Ensure Enlive 120 ml PO 4X/DAY liquid 06/14/17 Heparin Sodium,Porcine/Pf [Heparin 500 unit IV UD PRN syringe 06/14/17 500 Unit/5 ml (100/ml)] Ibuprofen [Motrin] 800 mg PO Q8H PRN PRN tablet 06/14/17 Ipratropium [Atrovent Aerosols] 0.5 mg INHALATION Q6HWA.RT 06/14/17 solution Iron Polysaccharide Complex 150 mg PO DAILYCM capsule 06/14/17 [Ferrex 150] Loperamide [Imodium] 2 mg PO Q4H PRN PRN capsule 06/14/17 Nutritional Supplement [Chuy - 1 packet PO BIDCM packet 06/14/17 [place]] Oxycodone HCl/Acetaminophen 1 - 2 tab PO 4X/DAY PRN PRN 5 Days 06/14/17 [Percocet 5/325] #40 tab Testosterone [Androderm 2mg/24 hr] 1 each TD DAILY patch.td24 06/14/17 proMETHazine tablet [Phenergan 25 mg PO Q4H PRN PRN tablet 06/14/17 tablet] [place] [Ultra-Light Rollator] 1 shaina .QDAILY 180 Days #1 ea 08/28/17 Maternal Family History: No pertinent history Paternal Family History: No pertinent history Smoking Status: Former smoker Physical Exam Vital Signs Temp Pulse Resp BP 96.2 F L 82 16 133/72 H 09/28/17 11:08 09/28/17 11:08 09/28/17 11:08 09/28/17 11:08 General: Alert, Oriented x3, Cooperative, No apparent distress HEENT: Atraumatic Lungs: Normal air movement Psych/Mental Status: Normal Affect Assessment/Plan The patient appears to be tolerating hyperbaric oxygen therapy well, which will continue as per the patient's medical plan.
[2017-09-29 10:05] VITALS: BP 136/82; BP 139/68; PULSE 72; PULSE 83; RESP 16; TEMP 35.7; TEMP 36.6
--- NOTE | 2017-09-29 11:56 | HBO.PN.PCM_ITS ---
History of Present Illness Date of Service: 09/29/17 Presenting Chief Complaint: Nonhealing radiation pressure ulcer, abscess ulcer right gluteal/ischial area, Stage IV, with 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 BRYN TROTTER is a 62 year old currently undergoing hyperbaric oxygen therapy for nonhealing radiation pressure ulcer, abscess ulcer right gluteal/ ischial area, Stage IV, with 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 Progress: The patient appears to be doing well, having tolerated his 9th session of hyperbaric oxygen therapy well today. Tolerance of hyperbaric oxygen therapy: Hyperbaric oxygen therapy was administered as per the facility's protocol. The patient tolerated hyperbaric oxygen therapy without complaints or complications. Upon emergence from the hyperbaric chamber, the patient's vital signs remained stable. He was discharged in good condition. 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, stage 4 (Chronic) Anal cancer (Chronic) Hepatitis C carrier (Chronic) COPD (chronic obstructive pulmonary disease) (Chronic) Anxiety and depression (Chronic) HTN (hypertension) (Chronic) HLD (hyperlipidemia) (Chronic) GERD (gastroesophageal reflux disease) (Chronic) PAD (peripheral artery disease) (Chronic) Allergies/Adverse Reactions: Allergies povidone-iodine [From Betadine] Allergy (Verified 06/06/17 14:24) Hives Dclitqy-Tqx-Xap Reductase Inhibitor Adverse Reaction (Verified 06/06/17 14:24) MESSED MY LIVER UP adhesive tape Allergy (Uncoded 06/06/17 14:24) Itching/rash Home Medications: Ambulatory Orders Medication Instructions Recorded Albuterol Inhaler [Ventolin Hfa] 2 puff INHALATION Q4H PRN PRN 03/22/16 Aspirin [Aspirin, Baby] 81 mg PO DAILY@0800 03/22/16 Escitalopram Oxalate [Lexapro] 10 mg PO QHS 03/22/16 Ezetimibe [Zetia] 10 mg PO QHS 03/22/16 Fluticasone 0.05% [Flonase Nasal 2 spray NASAL BID 03/22/16 [place]] Multivitamin [Multiple Vitamins] 1 each PO DAILY 03/22/16 Omeprazole [Prilosec] 40 mg PO QHS 03/22/16 buPROPion XL [Wellbutrin Xl] 300 mg PO QHS 03/22/16 busPIRone [Buspar] 5 mg PO TID 03/22/16 Tiotropium [place] [Spiriva 2 puff INHALATION DAILY 10/20/16 Respimat] Cholecalciferol (Vitamin D3) 1,000 unit PO DAILY 12/09/16 [Vitamin D3] Tizanidine HCl [Zanaflex] 4 mg PO Q6H PRN PRN 12/27/16 Metoprolol Tartrate 25 mg PO BID #60 tablet 01/04/17 Nutritional Supplement [Chuy - 1 packet PO BIDCM packet 01/04/17 [place]] Acetaminophen [Tylenol Tablet] 650 mg PO Q6H PRN PRN tablet 01/13/17 Gabapentin [Neurontin] 800 mg PO TIDCM tablet 01/13/17 Ibuprofen [Motrin] 800 mg PO TID 06/06/17 Triamterene 37.5MG/Hctz 25MG 0.5 cap PO DAILY 06/06/17 [Dyazide (G)] Testosterone [Androderm 2mg/24 hr] 1 each TD 06/08/17 Piperacil/Tazobactam [Zosyn] 3.375 gm IV Q8 40 Days #120 dose 06/13/17 Diazepam [Valium] 5 mg PO 4X/DAY PRN PRN #30 tab 06/14/17 DiphenhydrAMINE [Benadryl] 25 mg PO Q6H PRN capsule 06/14/17 Docusate Sodium [Colace] 100 mg PO BID capsule 06/14/17 Ensure Enlive 120 ml PO 4X/DAY liquid 06/14/17 Heparin Sodium,Porcine/Pf [Heparin 500 unit IV UD PRN syringe 06/14/17 500 Unit/5 ml (100/ml)] Ibuprofen [Motrin] 800 mg PO Q8H PRN PRN tablet 06/14/17 Ipratropium [Atrovent Aerosols] 0.5 mg INHALATION Q6HWA.RT 06/14/17 solution Iron Polysaccharide Complex 150 mg PO DAILYCM capsule 06/14/17 [Ferrex 150] Loperamide [Imodium] 2 mg PO Q4H PRN PRN capsule 06/14/17 Nutritional Supplement [Chuy - 1 packet PO BIDCM packet 06/14/17 [place]] Oxycodone HCl/Acetaminophen 1 - 2 tab PO 4X/DAY PRN PRN 5 Days 06/14/17 [Percocet 5/325] #40 tab Testosterone [Androderm 2mg/24 hr] 1 each TD DAILY patch.td24 06/14/17 proMETHazine tablet [Phenergan 25 mg PO Q4H PRN PRN tablet 06/14/17 tablet] Shaina [Ultra-Light Rollator] 1 shaina .QDAILY 180 Days #1 ea 08/28/17 Maternal Family History: No pertinent history Paternal Family History: No pertinent history Smoking Status: Former smoker Physical Exam Vital Signs Temp Pulse Resp BP 96.3 F L 83 16 139/68 H 09/29/17 10:05 09/29/17 10:05 09/29/17 10:05 09/29/17 10:05 Assessment/Plan The patient appears to be tolerating hyperbaric oxygen therapy well, which will continue as per the patient's medical plan.
[2017-10-02 09:54] VITALS: BP 131/82; BP 138/90; PULSE 72; PULSE 82; RESP 16; TEMP 36.4; TEMP 36.7
[2017-10-02 12:32] VITALS: BP 131/82; PULSE 72; RESP 18; TEMP 36.7
--- NOTE | 2017-10-02 22:55 | PCM.HBO.PN ---
History of Present Illness Date of Service: 10/02/17 Presenting Chief Complaint: Nonhealing radiation pressure ulcer, abscess ulcer right gluteal/ischial area, Stage IV, with 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 BRYN TROTTER is a 62 year old currently undergoing hyperbaric oxygen therapy for nonhealing radiation pressure sore abscess ulcer right gluteal/ischial area, Stage IV, with 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 Progress: This is his second cycle of hyperbaric oxygen therapy with treatment #11. Tolerance of hyperbaric oxygen therapy: Hyperbaric oxygen therapy was administered as per the facility's protocol. The patient tolerated hyperbaric oxygen therapy well, without complaints or complications. Upon emergence from the hyperbaric chamber today, the patient's vital signs remained stable. He was discharged in good condition. 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, stage 4 (Chronic) Anal cancer (Chronic) Hepatitis C carrier (Chronic) COPD (chronic obstructive pulmonary disease) (Chronic) Anxiety and depression (Chronic) HTN (hypertension) (Chronic) HLD (hyperlipidemia) (Chronic) GERD (gastroesophageal reflux disease) (Chronic) PAD (peripheral artery disease) (Chronic) Allergies/Adverse Reactions: Allergies povidone-iodine [From Betadine] Allergy (Verified 10/17/17 07:25) Hives Ctrdmtf-Dbg-Oll Reductase Inhibitor Adverse Reaction (Verified 10/17/17 07:25) MESSED MY LIVER UP adhesive tape Allergy (Uncoded 10/17/17 07:25) Itching/rash Home Medications: Ambulatory Orders Medication Instructions Recorded Aspirin [Aspirin, Baby] 81 mg PO DAILY@0800 03/22/16 Escitalopram Oxalate [Lexapro] 10 mg PO QHS 03/22/16 Ezetimibe [Zetia] 10 mg PO QHS 03/22/16 Fluticasone 0.05% [Flonase Nasal 2 spray NASAL BID 03/22/16 [place]] Multivitamin [Multiple Vitamins] 1 each PO DAILY 03/22/16 Omeprazole [Prilosec] 40 mg PO QHS 03/22/16 buPROPion XL [Wellbutrin Xl] 300 mg PO QHS 03/22/16 busPIRone [Buspar] 5 mg PO TID 03/22/16 Tiotropium [place] [Spiriva 2 puff INHALATION DAILY 10/20/16 Respimat] Cholecalciferol (Vitamin D3) 1,000 unit PO DAILY 12/09/16 [Vitamin D3] Tizanidine HCl [Zanaflex] 4 mg PO Q6H PRN PRN 12/27/16 Acetaminophen [Tylenol Tablet] 650 mg PO Q6H PRN PRN tablet 01/13/17 Ibuprofen [Motrin] 800 mg PO TID 06/06/17 Triamterene 37.5MG/Hctz 25MG 0.5 cap PO DAILY 06/06/17 [Dyazide (G)] Testosterone [Androderm 2mg/24 hr] 1 each TD DAILY 06/08/17 DiphenhydrAMINE [Benadryl] 25 mg PO Q6H PRN capsule 06/14/17 Ibuprofen [Motrin] 800 mg PO Q8H PRN PRN tablet 06/14/17 Loperamide [Imodium] 2 mg PO Q4H PRN PRN capsule 06/14/17 Oxycodone HCl/Acetaminophen 1 - 2 tab PO 4X/DAY PRN PRN 5 Days 06/14/17 [Percocet 5/325] #40 tab [place] [Ultra-Light Rollator] 1 shaina MC .QDAILY 180 Days #1 ea 08/28/17 Docusate Sodium [Colace] 100 mg PO PRN PRN 10/16/17 Gabapentin [Neurontin] 800 mg PO TIDCM 10/16/17 Metoprolol Tartrate 25 mg PO BID 10/16/17 Nutritional Supplement [[place]uy - 1 packet PO BIDCM 10/16/17 [place]] Smz/Tmp Ds [Bactrim Ds] 1 tablet PO BID 10/16/17 Vancomycin IV 1,250 mg IV Q8H 40 Days #120 vial 10/18/17 Maternal Family History: No pertinent history Paternal Family History: No pertinent history Smoking Status: Former smoker Physical Exam Vital Signs Temp Pulse Resp BP 98.1 F 72 18 131/82 H 10/02/17 12:32 10/02/17 12:32 10/02/17 12:32 10/02/17 12:32
--- NOTE | 2017-10-03 17:20 | PN.PCM_ITS ---
Type of Wound Date of Service: 10/02/17 Chief Complaint: Nonhealing radiation pressure ulcer, abscess ulcer right gluteal/ischial area, Stage IV, with 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 History of Wound: Surgery 06/08/17 - Excision radiation pressure sore abscess ulcer right ischial area, Stage IV, with partial ostectomy for osteomyelitis. Wound care - VAC. Operative culture - Achromobacter xylosoxidans, Staphylococcsu aureus, and Bacteroides fragilis. He was placed on Zosyn with a PICC line for 6 weeks and has finished them. PICC line has been pulled. He had a wound culture done on 08/21/17. It showed MRSA, Corynebaterium striatum, and Bacteroides fragilis. He was started on Flagyl and Doxycycline. He has problems with Doxycycline causing some diarrhea. It was changed to Bactrim. He kept taking the Doxycycline because he didn't have symptoms as long as he took the Flagyl. Pathology - positive for acute osteomyelitis. He has been discharged to home so he can be evaluated for HBO treatments. He has started HBO treatments and is tolerating them thus far. Today he denies fever. His appetite is ok. Progress of Wound: Slightly improved. - Physical Exam Vital Signs Temp Pulse Resp BP 98.1 F 72 18 131/82 H 10/02/17 12:32 10/02/17 12:32 10/02/17 12:32 10/02/17 12:32 Wound Measurements and Assessment WC - Nurse 1 - General Ulcer Measurement Start: 09/11/17 11:25 Freq: Status: Active Protocol: Activity Type Activity Date Activity User E-Sign Co-Sign Detail Recorded Client Recorded Date Recorded By Document 10/02/17 12:32 [id number] 10/02/17 12:35 10/02/17 12:32 Wound Center Nurse 1 [Ulcer Assessment] #1 R Ischial -Combined with other wound No -Current Size (cm) - Length 8.5 -Current Size (cm) - Width 4.5 -Current Size (cm) - Depth 3.0 -Total Square Cm 38.25 -Photo Taken No -Epithelialization Small 1-33% -Tunneling No -Undermining/Tunneling Yes -Undermining/Tunneling Starts (O' 12 clock) -Undermining/Tunneling Ends (O'clock) 3 -Maximum Distance (cm) 3.4 -Undermining/Tunneling Starts #2 (O' 3 clock) -Undermining/Tunneling Ends #2 (O' 11 clock) -Maximum Distance #2 (cm) 2.1 -Circular Undermining No -Classification - Thickness Full Thickness with Exposed Support Structure -Exudate Amt Large (67-100%) -Exudate Type Serosanguineous -Wound Margin Thickened & Rolled Under -Granulation Amt Large (67-100%) -Granulation Quality Pale [place] -Slough/Fibrin Yes -Necrosis Amt Small (1-33%) -Necrotic Tissue Type Adherent Slough -Structure Exposed Fascia Muscle Fat Layer Exposed -Texture (Nathalie-wound Skin Appearance) Assessed Scarring -Moisture (Nathalie-wound Skin Appearance No Abnormality ) -Color (Nathalie-wound Skin Appearance) No Abnormality Assessed -Temperature (Nathalie-wound Skin No Abnormality Appearance) (Pt Warm) -Tenderness on Palpation (Nathalie-wound No Skin Appearance) -Ulcer Cleansing hibiclens -Foul Odor after Cleansing No -Anesthetic Used 5% Lidocaine Gel [Edema Assessment] -Lower Limb Edema Present No Debridement Note Post-Debridement Measurements/Treatment WC - Nurse 2 - General Ulcer CM Notes Start: 09/11/17 11:25 Freq: Status: Active Protocol: Activity Type Activity Date Activity User E-Sign Co-Sign Detail Recorded Client Recorded Date Recorded By Document 09/11/17 11:59 [id number] 09/11/17 12:00 ARNOLD 09/11/17 11:59 Wound Center Nurse 2 #1 R Ischial -Time 11:59 -Correct Patient Yes -Correct Side, Site, Position Yes -Correct Procedure Yes -Procedure Performed Yes -Type of Procedure Debridement -Clinical Debridement Muscle -Post Debridement Size (cm) - Length 8 -Post Debridement Size (cm) - Width 4.2 -Post Debridement Size (cm) - Depth 1.9 -Total Square Cm 33.6 -Ulcer Cleansing Rinsed/ Irrigated with Saline -Foul Odor after Cleansing No -Bioengineered Tissue No -Bleeding Controlled with Pressure -Treatment Response Procedure Tolerated Well Pain Scale: 0-10 Numeric Is Patient Pain Free? Yes Wound debrided: #1 Right ischial area. Laterality: Right Wound Grade/Stage: IV. Type of Debridement: Excisional debridement Anesthesia Used: 4% Lidocaine Solution Depth: Down to and including healthy tissue, in the subcutaneous layer, to muscle, to bone - bone is exposed but not debrided. Percentage of wound debrided: 100 Instrument Used: 7mm curette Tissue Removed: subcutaneous tissue and muscle. Severity: Fat Layer Exposed - muscle is exposed. bone is exposed but not debrided. Amount of bleeding with debridement: Mild Bleeding Controlled with: Pressure Patient tolerated procedure well Assessment/Plan Assessment: 1. 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 2. Late effect radiation right gluteal/ischial area. 3. Osteomyelitis. 4. History of anal CA treated with chemotherapy and radiation therapy. 5. MRSA. 6. s/p excision radiation pressure sore abscess ulcer right ischial area , Stage IV, with partial ostectomy for osteomyelitis. Plan: Continue VAC. The Zosyn has been completed. The PICC line has been pulled. He has been discharged home. He has started HBO treatments and is tolerating them thus far. He had a wound culture done on 08/21/17 and it showed MRSA, Corynebacterium striatum, and Bacteroides fragilis. He was started on Doxycycline and Flagyl. He was having problems with diarrhea with the Doxycycline. It was changed to Bactrim, but he kept taking the Doxycyline which didn't bother him as long as he was taking Flagyl. He takes nutritional supplementation with protein to help the healing process. He has acute osteomyelitis and will need additional partial ostectomy before a myocutaneous flap is done. Will schedule the operative debridement in the next couple of weeks. Patient was informed of the risks and complications of the procedure including alternatives to surgery. These were discussed with him personally. He voices understanding and wishes to proceed. Followup 2 weeks unless he has surgery, then followup after discharge.
--- NOTE | 2017-10-03 17:26 | HBO.PN.PCM_ITS ---
History of Present Illness Date of Service: 10/02/17 Presenting Chief Complaint: Nonhealing radiation pressure ulcer, abscess ulcer right gluteal/ischial area, Stage IV, with 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 BRYN TROTTER is a 62 year old currently undergoing hyperbaric oxygen therapy for nonhealing radiation pressure sore abscess ulcer right gluteal/ ischial area, Stage IV, with 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 Progress: This is his second cycle of hyperbaric oxygen therapy with treatment #11. Tolerance of hyperbaric oxygen therapy: Hyperbaric oxygen therapy was administered as per the facility's protocol. The patient tolerated hyperbaric oxygen therapy well, without complaints or complications. Upon emergence from the hyperbaric chamber today, the patient's vital signs remained stable. He was discharged in good condition. 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, stage 4 (Chronic) Anal cancer (Chronic) Hepatitis C carrier (Chronic) COPD (chronic obstructive pulmonary disease) (Chronic) Anxiety and depression (Chronic) HTN (hypertension) (Chronic) HLD (hyperlipidemia) (Chronic) GERD (gastroesophageal reflux disease) (Chronic) PAD (peripheral artery disease) (Chronic) Allergies/Adverse Reactions: Allergies povidone-iodine [From Betadine] Allergy (Verified 10/17/17 07:25) Hives Omhntth-Rfm-Fhr Reductase Inhibitor Adverse Reaction (Verified 10/17/17 07:25) MESSED MY LIVER UP adhesive tape Allergy (Uncoded 10/17/17 07:25) Itching/rash Home Medications: Ambulatory Orders Medication Instructions Recorded Aspirin [Aspirin, Baby] 81 mg PO DAILY@0800 03/22/16 Escitalopram Oxalate [Lexapro] 10 mg PO QHS 03/22/16 Ezetimibe [Zetia] 10 mg PO QHS 03/22/16 Fluticasone 0.05% [Flonase Nasal 2 spray NASAL BID 03/22/16 [place]] Multivitamin [Multiple Vitamins] 1 each PO DAILY 03/22/16 Omeprazole [Prilosec] 40 mg PO QHS 03/22/16 buPROPion XL [Wellbutrin Xl] 300 mg PO QHS 03/22/16 busPIRone [Buspar] 5 mg PO TID 03/22/16 Tiotropium [place] [Spiriva 2 puff INHALATION DAILY 10/20/16 Respimat] Cholecalciferol (Vitamin D3) 1,000 unit PO DAILY 12/09/16 [Vitamin D3] Tizanidine HCl [Zanaflex] 4 mg PO Q6H PRN PRN 12/27/16 Acetaminophen [Tylenol Tablet] 650 mg PO Q6H PRN PRN tablet 01/13/17 Ibuprofen [Motrin] 800 mg PO TID 06/06/17 Triamterene 37.5MG/Hctz 25MG 0.5 cap PO DAILY 06/06/17 [Dyazide (G)] Testosterone [Androderm 2mg/24 hr] 1 each TD DAILY 06/08/17 DiphenhydrAMINE [Benadryl] 25 mg PO Q6H PRN capsule 06/14/17 Ibuprofen [Motrin] 800 mg PO Q8H PRN PRN tablet 06/14/17 Loperamide [Imodium] 2 mg PO Q4H PRN PRN capsule 06/14/17 Oxycodone HCl/Acetaminophen 1 - 2 tab PO 4X/DAY PRN PRN 5 Days 06/14/17 [Percocet 5/325] #40 tab [place] [Ultra-Light Rollator] 1 shaina MC .QDAILY 180 Days #1 ea 08/28/17 Docusate Sodium [Colace] 100 mg PO PRN PRN 10/16/17 Gabapentin [Neurontin] 800 mg PO TIDCM 10/16/17 Metoprolol Tartrate 25 mg PO BID 10/16/17 Nutritional Supplement [Chuy - 1 packet PO BIDCM 10/16/17 [place]] Smz/Tmp Ds [Bactrim Ds] 1 tablet PO BID 10/16/17 Vancomycin IV 1,250 mg IV Q8H 40 Days #120 vial 10/18/17 Maternal Family History: No pertinent history Paternal Family History: No pertinent history Smoking Status: Former smoker Physical Exam Vital Signs Temp Pulse Resp BP 98.1 F 72 18 131/82 H 10/02/17 12:32 10/02/17 12:32 10/02/17 12:32 10/02/17 12:32
[2017-10-04 09:59] VITALS: BP 141/68; BP 142/82; PULSE 73; PULSE 76; RESP 16; TEMP 35.9; TEMP 36.6
--- NOTE | 2017-10-04 11:53 | HBO.PN.PCM_ITS ---
History of Present Illness Date of Service: 10/04/17 Presenting Chief Complaint: Nonhealing radiation pressure ulcer, abscess ulcer right gluteal/ischial area, Stage IV, with 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 BRYN TROTTER is a 62 year old currently undergoing hyperbaric oxygen therapy for nonhealing radiation pressure sore abscess ulcer right gluteal/ ischial area, Stage IV, with 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 Progress: This is his second cycle of hyperbaric oxygen therapy with treatment He has done well so far. Tolerance of hyperbaric oxygen therapy: Hyperbaric oxygen therapy was administered as per the facility's protocol. The patient tolerated hyperbaric oxygen therapy well, without complaints or complications. Upon emergence from the hyperbaric chamber today, the patient's vital signs remained stable. He was discharged in good condition. 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, stage 4 (Chronic) Anal cancer (Chronic) Hepatitis C carrier (Chronic) COPD (chronic obstructive pulmonary disease) (Chronic) Anxiety and depression (Chronic) HTN (hypertension) (Chronic) HLD (hyperlipidemia) (Chronic) GERD (gastroesophageal reflux disease) (Chronic) PAD (peripheral artery disease) (Chronic) Allergies/Adverse Reactions: Allergies povidone-iodine [From Betadine] Allergy (Verified 06/06/17 14:24) Hives Pfemzmr-Hec-Pdg Reductase Inhibitor Adverse Reaction (Verified 06/06/17 14:24) MESSED MY LIVER UP adhesive tape Allergy (Uncoded 06/06/17 14:24) Itching/rash Home Medications: Ambulatory Orders Medication Instructions Recorded Albuterol Inhaler [Ventolin Hfa] 2 puff INHALATION Q4H PRN PRN 03/22/16 Aspirin [Aspirin, Baby] 81 mg PO DAILY@0800 03/22/16 Escitalopram Oxalate [Lexapro] 10 mg PO QHS 03/22/16 Ezetimibe [Zetia] 10 mg PO QHS 03/22/16 Fluticasone 0.05% [Flonase Nasal 2 spray NASAL BID 03/22/16 [place]] Multivitamin [Multiple Vitamins] 1 each PO DAILY 03/22/16 Omeprazole [Prilosec] 40 mg PO QHS 03/22/16 buPROPion XL [Wellbutrin Xl] 300 mg PO QHS 03/22/16 busPIRone [Buspar] 5 mg PO TID 03/22/16 Tiotropium [place] [Spiriva 2 puff INHALATION DAILY 10/20/16 Respimat] Cholecalciferol (Vitamin D3) 1,000 unit PO DAILY 12/09/16 [Vitamin D3] Tizanidine HCl [Zanaflex] 4 mg PO Q6H PRN PRN 12/27/16 Metoprolol Tartrate 25 mg PO BID #60 tablet 01/04/17 Nutritional Supplement [Chuy - 1 packet PO BIDCM packet 01/04/17 [place]] Acetaminophen [Tylenol Tablet] 650 mg PO Q6H PRN PRN tablet 01/13/17 Gabapentin [Neurontin] 800 mg PO TIDCM tablet 01/13/17 Ibuprofen [Motrin] 800 mg PO TID 06/06/17 Triamterene 37.5MG/Hctz 25MG 0.5 cap PO DAILY 06/06/17 [Dyazide (G)] Testosterone [Androderm 2mg/24 hr] 1 each TD 06/08/17 Piperacil/Tazobactam [Zosyn] 3.375 gm IV Q8 40 Days #120 dose 06/13/17 Diazepam [Valium] 5 mg PO 4X/DAY PRN PRN #30 tab 06/14/17 DiphenhydrAMINE [Benadryl] 25 mg PO Q6H PRN capsule 06/14/17 Docusate Sodium [Colace] 100 mg PO BID capsule 06/14/17 Ensure Enlive 120 ml PO 4X/DAY liquid 06/14/17 Heparin Sodium,Porcine/Pf [Heparin 500 unit IV UD PRN syringe 06/14/17 500 Unit/5 ml (100/ml)] Ibuprofen [Motrin] 800 mg PO Q8H PRN PRN tablet 06/14/17 Ipratropium [Atrovent Aerosols] 0.5 mg INHALATION Q6HWA.RT 06/14/17 solution Iron Polysaccharide Complex 150 mg PO DAILYCM capsule 06/14/17 [Ferrex 150] Loperamide [Imodium] 2 mg PO Q4H PRN PRN capsule 06/14/17 Nutritional Supplement [Chuy - 1 packet PO BIDCM packet 06/14/17 [place]] Oxycodone HCl/Acetaminophen 1 - 2 tab PO 4X/DAY PRN PRN 5 Days 06/14/17 [Percocet 5/325] #40 tab Testosterone [Androderm 2mg/24 hr] 1 each TD DAILY patch.td24 06/14/17 proMETHazine tablet [Phenergan 25 mg PO Q4H PRN PRN tablet 06/14/17 tablet] Walker [Ultra-Light Rollator] 1 shaina .QDAILY 180 Days #1 ea 08/28/17 Maternal Family History: No pertinent history Paternal Family History: No pertinent history Smoking Status: Former smoker Physical Exam Vital Signs Temp Pulse Resp BP 96.7 F L 76 16 142/82 H 10/04/17 09:59 10/04/17 09:59 10/04/17 09:59 10/04/17 09:59 General: Alert, Oriented x3, Cooperative, No apparent distress HEENT: Atraumatic Lungs: Normal air movement Psych/Mental Status: Normal Affect Assessment/Plan The patient appears to be tolerating hyperbaric oxygen therapy well, which will continue as per the patient's medical plan.
[2017-10-05 09:54] VITALS: BP 127/70; BP 128/90; PULSE 72; PULSE 78; RESP 16; TEMP 36.2; TEMP 36.6
--- NOTE | 2017-10-05 13:00 | PCM.HBO.PN ---
History of Present Illness Date of Service: 10/05/17 Presenting Chief Complaint: Nonhealing radiation pressure ulcer, abscess ulcer right gluteal/ischial area, Stage IV, with 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 BRYN TROTTER is a 62 year old currently undergoing hyperbaric oxygen therapy for nonhealing radiation pressure sore abscess ulcer right gluteal/ischial area, Stage IV, with 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 Progress: This is his second cycle of hyperbaric oxygen therapy with treatment. He has done well so far. Tolerance of hyperbaric oxygen therapy: Hyperbaric oxygen therapy was administered as per the facility's protocol. The patient tolerated hyperbaric oxygen therapy well, without complaints or complications. Upon emergence from the hyperbaric chamber today, the patient's vital signs remained stable. He was discharged in good condition. 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, stage 4 (Chronic) Anal cancer (Chronic) Hepatitis C carrier (Chronic) COPD (chronic obstructive pulmonary disease) (Chronic) Anxiety and depression (Chronic) HTN (hypertension) (Chronic) HLD (hyperlipidemia) (Chronic) GERD (gastroesophageal reflux disease) (Chronic) PAD (peripheral artery disease) (Chronic) Allergies/Adverse Reactions: Allergies povidone-iodine [From Betadine] Allergy (Verified 06/06/17 14:24) Hives Uxpvwgo-Tha-Vnu Reductase Inhibitor Adverse Reaction (Verified 06/06/17 14:24) MESSED MY LIVER UP adhesive tape Allergy (Uncoded 06/06/17 14:24) Itching/rash Home Medications: Ambulatory Orders Medication Instructions Recorded Albuterol Inhaler [Ventolin Hfa] 2 puff INHALATION Q4H PRN PRN 03/22/16 Aspirin [Aspirin, Baby] 81 mg PO DAILY@0800 03/22/16 Escitalopram Oxalate [Lexapro] 10 mg PO QHS 03/22/16 Ezetimibe [Zetia] 10 mg PO QHS 03/22/16 Fluticasone 0.05% [Flonase Nasal 2 spray NASAL BID 03/22/16 [place]] Multivitamin [Multiple Vitamins] 1 each PO DAILY 03/22/16 Omeprazole [Prilosec] 40 mg PO QHS 03/22/16 buPROPion XL [Wellbutrin Xl] 300 mg PO QHS 03/22/16 busPIRone [Buspar] 5 mg PO TID 03/22/16 Tiotropium [place] [Spiriva 2 puff INHALATION DAILY 10/20/16 Respimat] Cholecalciferol (Vitamin D3) 1,000 unit PO DAILY 12/09/16 [Vitamin D3] Tizanidine HCl [Zanaflex] 4 mg PO Q6H PRN PRN 12/27/16 Metoprolol Tartrate 25 mg PO BID #60 tablet 01/04/17 Nutritional Supplement [Chuy - 1 packet PO BIDCM packet 01/04/17 [place]] Acetaminophen [Tylenol Tablet] 650 mg PO Q6H PRN PRN tablet 01/13/17 Gabapentin [Neurontin] 800 mg PO TIDCM tablet 01/13/17 Ibuprofen [Motrin] 800 mg PO TID 06/06/17 Triamterene 37.5MG/Hctz 25MG 0.5 cap PO DAILY 06/06/17 [Dyazide (G)] Testosterone [Androderm 2mg/24 hr] 1 each TD 06/08/17 Piperacil/Tazobactam [Zosyn] 3.375 gm IV Q8 40 Days #120 dose 06/13/17 Diazepam [Valium] 5 mg PO 4X/DAY PRN PRN #30 tab 06/14/17 DiphenhydrAMINE [Benadryl] 25 mg PO Q6H PRN capsule 06/14/17 Docusate Sodium [Colace] 100 mg PO BID capsule 06/14/17 Ensure Enlive 120 ml PO 4X/DAY liquid 06/14/17 Heparin Sodium,Porcine/Pf [Heparin 500 unit IV UD PRN syringe 06/14/17 500 Unit/5 ml (100/ml)] Ibuprofen [Motrin] 800 mg PO Q8H PRN PRN tablet 06/14/17 Ipratropium [Atrovent Aerosols] 0.5 mg INHALATION Q6HWA.RT 06/14/17 solution Iron Polysaccharide Complex 150 mg PO DAILYCM capsule 06/14/17 [Ferrex 150] Loperamide [Imodium] 2 mg PO Q4H PRN PRN capsule 06/14/17 Nutritional Supplement [Chuy - 1 packet PO BIDCM packet 06/14/17 [place]] Oxycodone HCl/Acetaminophen 1 - 2 tab PO 4X/DAY PRN PRN 5 Days 06/14/17 [Percocet 5/325] #40 tab Testosterone [Androderm 2mg/24 hr] 1 each TD DAILY patch.td24 06/14/17 proMETHazine tablet [Phenergan 25 mg PO Q4H PRN PRN tablet 06/14/17 tablet] Walker [Ultra-Light Rollator] 1 shaina .QDAILY 180 Days #1 ea 08/28/17 Maternal Family History: No pertinent history Paternal Family History: No pertinent history Smoking Status: Former smoker Physical Exam Vital Signs Temp Pulse Resp BP 97.2 F L 78 16 127/70 H 10/05/17 09:54 10/05/17 09:54 10/05/17 09:54 10/05/17 09:54 General: Alert, Oriented x3, Cooperative, No apparent distress HEENT: Atraumatic Lungs: Normal air movement Cardiovascular: Regular rate Psych/Mental Status: Normal Affect Assessment/Plan The patient appears to be tolerating hyperbaric oxygen therapy well, which will continue as per the patient's medical plan.
[2017-10-06 10:16] VITALS: BP 127/78; BP 134/84; PULSE 73; PULSE 82; RESP 16; TEMP 35.6; TEMP 36.7
--- NOTE | 2017-10-06 12:10 | PCM.HBO.PN ---
History of Present Illness Date of Service: 10/06/17 Presenting Chief Complaint: Nonhealing radiation pressure ulcer, abscess ulcer right gluteal/ischial area, Stage IV, with 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 BRYN TROTTER is a 62 year old currently undergoing hyperbaric oxygen therapy for nonhealing radiation pressure sore abscess ulcer right gluteal/ischial area, Stage IV, with 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 Progress: This is his second cycle of hyperbaric oxygen therapy with treatment. He has done well so far. Tolerance of hyperbaric oxygen therapy: Hyperbaric oxygen therapy was administered as per the facility's protocol. The patient tolerated hyperbaric oxygen therapy well, without complaints or complications. Upon emergence from the hyperbaric chamber today, the patient's vital signs remained stable. He was discharged in good condition. 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, stage 4 (Chronic) Anal cancer (Chronic) Hepatitis C carrier (Chronic) COPD (chronic obstructive pulmonary disease) (Chronic) Anxiety and depression (Chronic) HTN (hypertension) (Chronic) HLD (hyperlipidemia) (Chronic) GERD (gastroesophageal reflux disease) (Chronic) PAD (peripheral artery disease) (Chronic) Allergies/Adverse Reactions: Allergies povidone-iodine [From Betadine] Allergy (Verified 06/06/17 14:24) Hives Mwwkijw-Usd-Isv Reductase Inhibitor Adverse Reaction (Verified 06/06/17 14:24) MESSED MY LIVER UP adhesive tape Allergy (Uncoded 06/06/17 14:24) Itching/rash Home Medications: Ambulatory Orders Medication Instructions Recorded Albuterol Inhaler [Ventolin Hfa] 2 puff INHALATION Q4H PRN PRN 03/22/16 Aspirin [Aspirin, Baby] 81 mg PO DAILY@0800 03/22/16 Escitalopram Oxalate [Lexapro] 10 mg PO QHS 03/22/16 Ezetimibe [Zetia] 10 mg PO QHS 03/22/16 Fluticasone 0.05% [Flonase Nasal 2 spray NASAL BID 03/22/16 [place]] Multivitamin [Multiple Vitamins] 1 each PO DAILY 03/22/16 Omeprazole [Prilosec] 40 mg PO QHS 03/22/16 buPROPion XL [Wellbutrin Xl] 300 mg PO QHS 03/22/16 busPIRone [Buspar] 5 mg PO TID 03/22/16 Tiotropium [place] [Spiriva 2 puff INHALATION DAILY 10/20/16 Respimat] Cholecalciferol (Vitamin D3) 1,000 unit PO DAILY 12/09/16 [Vitamin D3] Tizanidine HCl [Zanaflex] 4 mg PO Q6H PRN PRN 12/27/16 Metoprolol Tartrate 25 mg PO BID #60 tablet 01/04/17 Nutritional Supplement [Chuy - 1 packet PO BIDCM packet 01/04/17 [place]] Acetaminophen [Tylenol Tablet] 650 mg PO Q6H PRN PRN tablet 01/13/17 Gabapentin [Neurontin] 800 mg PO TIDCM tablet 01/13/17 Ibuprofen [Motrin] 800 mg PO TID 06/06/17 Triamterene 37.5MG/Hctz 25MG 0.5 cap PO DAILY 06/06/17 [Dyazide (G)] Testosterone [Androderm 2mg/24 hr] 1 each TD 06/08/17 Piperacil/Tazobactam [Zosyn] 3.375 gm IV Q8 40 Days #120 dose 06/13/17 Diazepam [Valium] 5 mg PO 4X/DAY PRN PRN #30 tab 06/14/17 DiphenhydrAMINE [Benadryl] 25 mg PO Q6H PRN capsule 06/14/17 Docusate Sodium [Colace] 100 mg PO BID capsule 06/14/17 Ensure Enlive 120 ml PO 4X/DAY liquid 06/14/17 Heparin Sodium,Porcine/Pf [Heparin 500 unit IV UD PRN syringe 06/14/17 500 Unit/5 ml (100/ml)] Ibuprofen [Motrin] 800 mg PO Q8H PRN PRN tablet 06/14/17 Ipratropium [Atrovent Aerosols] 0.5 mg INHALATION Q6HWA.RT 06/14/17 solution Iron Polysaccharide Complex 150 mg PO DAILYCM capsule 06/14/17 [Ferrex 150] Loperamide [Imodium] 2 mg PO Q4H PRN PRN capsule 06/14/17 Nutritional Supplement [Chuy - 1 packet PO BIDCM packet 06/14/17 [place]] Oxycodone HCl/Acetaminophen 1 - 2 tab PO 4X/DAY PRN PRN 5 Days 06/14/17 [Percocet 5/325] #40 tab Testosterone [Androderm 2mg/24 hr] 1 each TD DAILY patch.td24 06/14/17 proMETHazine tablet [Phenergan 25 mg PO Q4H PRN PRN tablet 06/14/17 tablet] Shaina [Ultra-Light Rollator] 1 shaina .QDAILY 180 Days #1 ea 08/28/17 Maternal Family History: No pertinent history Paternal Family History: No pertinent history Smoking Status: Former smoker Physical Exam Vital Signs Temp Pulse Resp BP 96.1 F L 82 16 127/78 H 10/06/17 10:16 10/06/17 10:16 10/06/17 10:16 10/06/17 10:16 Assessment/Plan The patient appears to be tolerating hyperbaric oxygen therapy well, which will continue as per the patient's medical plan.
[2017-10-10 09:50] VITALS: BP 137/73; BP 139/81; PULSE 75; PULSE 79; RESP 16; TEMP 36.2; TEMP 36.6
--- NOTE | 2017-10-10 13:55 | HBO.PN.PCM_ITS ---
History of Present Illness Date of Service: 10/10/17 Presenting Chief Complaint: Nonhealing radiation pressure ulcer, abscess ulcer right gluteal/ischial area, Stage IV, with 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 BRYN TROTTER is a 62 year old currently undergoing hyperbaric oxygen therapy for nonhealing radiation pressure sore abscess ulcer right gluteal/ ischial area, Stage IV, with 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 Progress: This is his second cycle of hyperbaric oxygen therapy with treatment. He has done well so far. This represents the 15th such hyperbaric oxygen therapy session in this cycle. Tolerance of hyperbaric oxygen therapy: Hyperbaric oxygen therapy was administered as per the facility's protocol. The patient tolerated hyperbaric oxygen therapy well, without complaints or complications. Upon emergence from the hyperbaric chamber today, the patient's vital signs remained stable. He was discharged in good condition. 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, stage 4 (Chronic) Anal cancer (Chronic) Hepatitis C carrier (Chronic) COPD (chronic obstructive pulmonary disease) (Chronic) Anxiety and depression (Chronic) HTN (hypertension) (Chronic) HLD (hyperlipidemia) (Chronic) GERD (gastroesophageal reflux disease) (Chronic) PAD (peripheral artery disease) (Chronic) Allergies/Adverse Reactions: Allergies povidone-iodine [From Betadine] Allergy (Verified 06/06/17 14:24) Hives [id number]-Ftp-Hxt Reductase Inhibitor Adverse Reaction (Verified 06/06/17 14:24) MESSED MY LIVER UP adhesive tape Allergy (Uncoded 06/06/17 14:24) Itching/rash Home Medications: Ambulatory Orders Medication Instructions Recorded Albuterol Inhaler [Ventolin Hfa] 2 puff INHALATION Q4H PRN PRN 03/22/16 Aspirin [Aspirin, Baby] 81 mg PO DAILY@0800 03/22/16 Escitalopram Oxalate [Lexapro] 10 mg PO QHS 03/22/16 Ezetimibe [Zetia] 10 mg PO QHS 03/22/16 Fluticasone 0.05% [Flonase Nasal 2 spray NASAL BID 03/22/16 [place]] Multivitamin [Multiple Vitamins] 1 each PO DAILY 03/22/16 Omeprazole [Prilosec] 40 mg PO QHS 03/22/16 buPROPion XL [Wellbutrin Xl] 300 mg PO QHS 03/22/16 busPIRone [Buspar] 5 mg PO TID 03/22/16 Tiotropium [place] [Spiriva 2 puff INHALATION DAILY 10/20/16 Respimat] Cholecalciferol (Vitamin D3) 1,000 unit PO DAILY 12/09/16 [Vitamin D3] Tizanidine HCl [Zanaflex] 4 mg PO Q6H PRN PRN 12/27/16 Metoprolol Tartrate 25 mg PO BID #60 tablet 01/04/17 Nutritional Supplement [Chuy - 1 packet PO BIDCM packet 01/04/17 [place]] Acetaminophen [Tylenol Tablet] 650 mg PO Q6H PRN PRN tablet 01/13/17 Gabapentin [Neurontin] 800 mg PO TIDCM tablet 01/13/17 Ibuprofen [Motrin] 800 mg PO TID 06/06/17 Triamterene 37.5MG/Hctz 25MG 0.5 cap PO DAILY 06/06/17 [Dyazide (G)] Testosterone [Androderm 2mg/24 hr] 1 each TD 06/08/17 Piperacil/Tazobactam [Zosyn] 3.375 gm IV Q8 40 Days #120 dose 06/13/17 Diazepam [Valium] 5 mg PO 4X/DAY PRN PRN #30 tab 06/14/17 DiphenhydrAMINE [Benadryl] 25 mg PO Q6H PRN capsule 06/14/17 Docusate Sodium [Colace] 100 mg PO BID capsule 06/14/17 Ensure Enlive 120 ml PO 4X/DAY liquid 06/14/17 Heparin Sodium,Porcine/Pf [Heparin 500 unit IV UD PRN syringe 06/14/17 500 Unit/5 ml (100/ml)] Ibuprofen [Motrin] 800 mg PO Q8H PRN PRN tablet 06/14/17 Ipratropium [Atrovent Aerosols] 0.5 mg INHALATION Q6HWA.RT 06/14/17 solution Iron Polysaccharide Complex 150 mg PO DAILYCM capsule 06/14/17 [Ferrex 150] Loperamide [Imodium] 2 mg PO Q4H PRN PRN capsule 06/14/17 Nutritional Supplement [Chuy - 1 packet PO BIDCM packet 06/14/17 [place]] Oxycodone HCl/Acetaminophen 1 - 2 tab PO 4X/DAY PRN PRN 5 Days 06/14/17 [Percocet 5/325] #40 tab Testosterone [Androderm 2mg/24 hr] 1 each TD DAILY patch.td24 06/14/17 proMETHazine tablet [Phenergan 25 mg PO Q4H PRN PRN tablet 06/14/17 tablet] Walker [Ultra-Light Rollator] 1 walker .QDAILY 180 Days #1 ea 08/28/17 Maternal Family History: No pertinent history Paternal Family History: No pertinent history Smoking Status: Former smoker Physical Exam Vital Signs Temp Pulse Resp BP 97.2 F L 79 16 137/73 H 10/10/17 09:50 10/10/17 09:50 10/10/17 09:50 10/10/17 09:50 General: Alert, Oriented x3, Cooperative, No apparent distress, Well developed, Well nourished HEENT: Atraumatic, PERRLA, EOMI, Normocephalic Lungs: Normal air movement Psych/Mental Status: Normal Affect, Appropriate, Alert and oriented to time, place, person, mood and affect Assessment/Plan The patient appears to be tolerating hyperbaric oxygen therapy well, which will be continued as per the patient's medical plan.
== END 2017-10-10 23:59 ==
LOC: WC 10:00
PROVIDERS: Family Provider Internal Medicine; PCP Internal Medicine; Visit Provider Surgery
DX: L59.8 Other specified disorders of the skin and subcutaneous tissue related to radiation (principal); Y84.2 Radiological procedure and radiotherapy as the cause of abnormal reaction of the patient, or of later complication, without mention of misadventure at the time of the procedure; L89.214 Pressure ulcer of right hip, stage 4; M86.151 Other acute osteomyelitis, right femur; B95.62 Methicillin resistant Staphylococcus aureus infection as the cause of diseases classified elsewhere; B96.6 Bacteroides fragilis [B. fragilis] as the cause of diseases classified elsewhere; B96.89 Other specified bacterial agents as the cause of diseases classified elsewhere; Z85.048 Personal history of other malignant neoplasm of rectum, rectosigmoid junction, and anus; Z92.21 Personal history of antineoplastic chemotherapy; B18.2 Chronic viral hepatitis C; Z87.891 Personal history of nicotine dependence; I73.9 Peripheral vascular disease, unspecified
CPT/HCPCS: 11043; 11046; 97605; 99183; 99211; 99212; G0277; G0463

== ENCOUNTER 2017-10-13 10:00 | Outpatient (RCR) | payer MEDICAID, SELFPAY ==
[2017-10-11 00:35] VITALS: BP 139/81; PULSE 75; RESP 16; TEMP 36.6
[2017-10-11 09:57] VITALS: BP 136/83; BP 142/74; PULSE 72; PULSE 81; RESP 16; TEMP 35.7; TEMP 36.8
--- NOTE | 2017-10-11 16:31 | PCM.HBO.PN ---
History of Present Illness Date of Service: 10/11/17 Presenting Chief Complaint: Nonhealing radiation pressure ulcer, abscess ulcer right gluteal/ischial area, Stage IV, with 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 BRYN TROTTER is a 62 year old currently undergoing hyperbaric oxygen therapy for nonhealing radiation pressure sore abscess ulcer right gluteal/ischial area, Stage IV, with 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 Progress: This is his second cycle of hyperbaric oxygen therapy with treatment. He has done well so far. This represents the 16th such hyperbaric oxygen therapy session in this cycle. Tolerance of hyperbaric oxygen therapy: Hyperbaric oxygen therapy was administered as per the facility's protocol. The patient tolerated hyperbaric oxygen therapy well, without complaints or complications. Upon emergence from the hyperbaric chamber today, the patient's vital signs remained stable. He was discharged in good condition. 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, stage 4 (Chronic) Anal cancer (Chronic) Hepatitis C carrier (Chronic) COPD (chronic obstructive pulmonary disease) (Chronic) Anxiety and depression (Chronic) HTN (hypertension) (Chronic) HLD (hyperlipidemia) (Chronic) GERD (gastroesophageal reflux disease) (Chronic) PAD (peripheral artery disease) (Chronic) Allergies/Adverse Reactions: Allergies povidone-iodine [From Betadine] Allergy (Verified 06/06/17 14:24) Hives Uevpokb-Hrv-Dxl Reductase Inhibitor Adverse Reaction (Verified 06/06/17 14:24) MESSED MY LIVER UP adhesive tape Allergy (Uncoded 06/06/17 14:24) Itching/rash Home Medications: Ambulatory Orders Medication Instructions Recorded Albuterol Inhaler [Ventolin Hfa] 2 puff INHALATION Q4H PRN PRN 03/22/16 Aspirin [Aspirin, Baby] 81 mg PO DAILY@0800 03/22/16 Escitalopram Oxalate [Lexapro] 10 mg PO QHS 03/22/16 Ezetimibe [Zetia] 10 mg PO QHS 03/22/16 Fluticasone 0.05% [Flonase Nasal 2 spray NASAL BID 03/22/16 [place]] Multivitamin [Multiple Vitamins] 1 each PO DAILY 03/22/16 Omeprazole [Prilosec] 40 mg PO QHS 03/22/16 buPROPion XL [Wellbutrin Xl] 300 mg PO QHS 03/22/16 busPIRone [Buspar] 5 mg PO TID 03/22/16 Tiotropium [place] [Spiriva 2 puff INHALATION DAILY 10/20/16 Respimat] Cholecalciferol (Vitamin D3) 1,000 unit PO DAILY 12/09/16 [Vitamin D3] Tizanidine HCl [Zanaflex] 4 mg PO Q6H PRN PRN 12/27/16 Metoprolol Tartrate 25 mg PO BID #60 tablet 01/04/17 Nutritional Supplement [Chuy - 1 packet PO BIDCM packet 01/04/17 [place]] Acetaminophen [Tylenol Tablet] 650 mg PO Q6H PRN PRN tablet 01/13/17 Gabapentin [Neurontin] 800 mg PO TIDCM tablet 01/13/17 Ibuprofen [Motrin] 800 mg PO TID 06/06/17 Triamterene 37.5MG/Hctz 25MG 0.5 cap PO DAILY 06/06/17 [Dyazide (G)] Testosterone [Androderm 2mg/24 hr] 1 each TD 06/08/17 Piperacil/Tazobactam [Zosyn] 3.375 gm IV Q8 40 Days #120 dose 06/13/17 Diazepam [Valium] 5 mg PO 4X/DAY PRN PRN #30 tab 06/14/17 DiphenhydrAMINE [Benadryl] 25 mg PO Q6H PRN capsule 06/14/17 Docusate Sodium [Colace] 100 mg PO BID capsule 06/14/17 Ensure Enlive 120 ml PO 4X/DAY liquid 06/14/17 Heparin Sodium,Porcine/Pf [Heparin 500 unit IV UD PRN syringe 06/14/17 500 Unit/5 ml (100/ml)] Ibuprofen [Motrin] 800 mg PO Q8H PRN PRN tablet 06/14/17 Ipratropium [Atrovent Aerosols] 0.5 mg INHALATION Q6HWA.RT 06/14/17 solution Iron Polysaccharide Complex 150 mg PO DAILYCM capsule 06/14/17 [Ferrex 150] Loperamide [Imodium] 2 mg PO Q4H PRN PRN capsule 06/14/17 Nutritional Supplement [Chuy - 1 packet PO BIDCM packet 06/14/17 [place]] Oxycodone HCl/Acetaminophen 1 - 2 tab PO 4X/DAY PRN PRN 5 Days 06/14/17 [Percocet 5/325] #40 tab Testosterone [Androderm 2mg/24 hr] 1 each TD DAILY patch.td24 06/14/17 proMETHazine tablet [Phenergan 25 mg PO Q4H PRN PRN tablet 06/14/17 tablet] Walker [Ultra-Light Rollator] 1 walker MC .QDAILY 180 Days #1 ea 08/28/17 Maternal Family History: No pertinent history Paternal Family History: No pertinent history Smoking Status: Former smoker Physical Exam Vital Signs Temp Pulse Resp BP 96.3 F L 81 16 142/74 H 10/11/17 09:57 10/11/17 09:57 10/11/17 09:57 10/11/17 09:57 General: Alert, Oriented x3, Cooperative, No apparent distress HEENT: Atraumatic Lungs: Clear to auscultation, Normal air movement Cardiovascular: Regular rate Psych/Mental Status: Normal Affect Assessment/Plan The patient has tolerated hyperbaric oxygen therapy well which will be continued as per the patient's medical plan.
--- NOTE | 2017-10-11 16:34 | HBO.PN.PCM_ITS ---
History of Present Illness Date of Service: 10/11/17 Presenting Chief Complaint: Nonhealing radiation pressure ulcer, abscess ulcer right gluteal/ischial area, Stage IV, with 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 BRYN TROTTER is a 62 year old currently undergoing hyperbaric oxygen therapy for nonhealing radiation pressure sore abscess ulcer right gluteal/ ischial area, Stage IV, with 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 Progress: This is his second cycle of hyperbaric oxygen therapy with treatment. He has done well so far. This represents the 16th such hyperbaric oxygen therapy session in this cycle. Tolerance of hyperbaric oxygen therapy: Hyperbaric oxygen therapy was administered as per the facility's protocol. The patient tolerated hyperbaric oxygen therapy well, without complaints or complications. Upon emergence from the hyperbaric chamber today, the patient's vital signs remained stable. He was discharged in good condition. 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, stage 4 (Chronic) Anal cancer (Chronic) Hepatitis C carrier (Chronic) COPD (chronic obstructive pulmonary disease) (Chronic) Anxiety and depression (Chronic) HTN (hypertension) (Chronic) HLD (hyperlipidemia) (Chronic) GERD (gastroesophageal reflux disease) (Chronic) PAD (peripheral artery disease) (Chronic) Allergies/Adverse Reactions: Allergies povidone-iodine [From Betadine] Allergy (Verified 06/06/17 14:24) Hives [id number]-Pyh-Rvv Reductase Inhibitor Adverse Reaction (Verified 06/06/17 14:24) MESSED MY LIVER UP adhesive tape Allergy (Uncoded 06/06/17 14:24) Itching/rash Home Medications: Ambulatory Orders Medication Instructions Recorded Albuterol Inhaler [Ventolin Hfa] 2 puff INHALATION Q4H PRN PRN 03/22/16 Aspirin [Aspirin, Baby] 81 mg PO DAILY@0800 03/22/16 Escitalopram Oxalate [Lexapro] 10 mg PO QHS 03/22/16 Ezetimibe [Zetia] 10 mg PO QHS 03/22/16 Fluticasone 0.05% [Flonase Nasal 2 spray NASAL BID 03/22/16 [place]] Multivitamin [Multiple Vitamins] 1 each PO DAILY 03/22/16 Omeprazole [Prilosec] 40 mg PO QHS 03/22/16 buPROPion XL [Wellbutrin Xl] 300 mg PO QHS 03/22/16 busPIRone [Buspar] 5 mg PO TID 03/22/16 Tiotropium [place] [Spiriva 2 puff INHALATION DAILY 10/20/16 Respimat] Cholecalciferol (Vitamin D3) 1,000 unit PO DAILY 12/09/16 [Vitamin D3] Tizanidine HCl [Zanaflex] 4 mg PO Q6H PRN PRN 12/27/16 Metoprolol Tartrate 25 mg PO BID #60 tablet 01/04/17 Nutritional Supplement [Chuy - 1 packet PO BIDCM packet 01/04/17 [place]] Acetaminophen [Tylenol Tablet] 650 mg PO Q6H PRN PRN tablet 01/13/17 Gabapentin [Neurontin] 800 mg PO TIDCM tablet 01/13/17 Ibuprofen [Motrin] 800 mg PO TID 06/06/17 Triamterene 37.5MG/Hctz 25MG 0.5 cap PO DAILY 06/06/17 [Dyazide (G)] Testosterone [Androderm 2mg/24 hr] 1 each TD 06/08/17 Piperacil/Tazobactam [Zosyn] 3.375 gm IV Q8 40 Days #120 dose 06/13/17 Diazepam [Valium] 5 mg PO 4X/DAY PRN PRN #30 tab 06/14/17 DiphenhydrAMINE [Benadryl] 25 mg PO Q6H PRN capsule 06/14/17 Docusate Sodium [Colace] 100 mg PO BID capsule 06/14/17 Ensure Enlive 120 ml PO 4X/DAY liquid 06/14/17 Heparin Sodium,Porcine/Pf [Heparin 500 unit IV UD PRN syringe 06/14/17 500 Unit/5 ml (100/ml)] Ibuprofen [Motrin] 800 mg PO Q8H PRN PRN tablet 06/14/17 Ipratropium [Atrovent Aerosols] 0.5 mg INHALATION Q6HWA.RT 06/14/17 solution Iron Polysaccharide Complex 150 mg PO DAILYCM capsule 06/14/17 [Ferrex 150] Loperamide [Imodium] 2 mg PO Q4H PRN PRN capsule 06/14/17 Nutritional Supplement [Chuy - 1 packet PO BIDCM packet 06/14/17 [place]] Oxycodone HCl/Acetaminophen 1 - 2 tab PO 4X/DAY PRN PRN 5 Days 06/14/17 [Percocet 5/325] #40 tab Testosterone [Androderm 2mg/24 hr] 1 each TD DAILY patch.td24 06/14/17 proMETHazine tablet [Phenergan 25 mg PO Q4H PRN PRN tablet 06/14/17 tablet] [place] [Ultra-Light Rollator] 1 walker MC .QDAILY 180 Days #1 ea 08/28/17 Maternal Family History: No pertinent history Paternal Family History: No pertinent history Smoking Status: Former smoker Physical Exam Vital Signs Temp Pulse Resp BP 96.3 F L 81 16 142/74 H 10/11/17 09:57 10/11/17 09:57 10/11/17 09:57 10/11/17 09:57 General: Alert, Oriented x3, Cooperative, No apparent distress HEENT: Atraumatic Lungs: Clear to auscultation, Normal air movement Cardiovascular: Regular rate Psych/Mental Status: Normal Affect Assessment/Plan The patient has tolerated hyperbaric oxygen therapy well which will be continued as per the patient's medical plan.
[2017-10-12 10:01] VITALS: BP 128/72; PULSE 82; RESP 16; TEMP 35.8
--- NOTE | 2017-10-12 11:25 | PCM.HBO.PN ---
History of Present Illness Date of Service: 10/12/17 Presenting Chief Complaint: Nonhealing radiation pressure ulcer, abscess ulcer right gluteal/ischial area, Stage IV, with 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 BRYN TROTTER is a 62 year old currently undergoing hyperbaric oxygen therapy for nonhealing radiation pressure sore abscess ulcer right gluteal/ischial area, Stage IV, with 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 Progress: This is his second cycle of hyperbaric oxygen therapy with treatment. He has done well so far. This represents the 17th such hyperbaric oxygen therapy session in this cycle. Tolerance of hyperbaric oxygen therapy: Hyperbaric oxygen therapy was administered as per the facility's protocol. The patient tolerated hyperbaric oxygen therapy well, without complaints or complications. Upon emergence from the hyperbaric chamber today, the patient's vital signs remained stable. He was discharged in good condition. 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, stage 4 (Chronic) Anal cancer (Chronic) Hepatitis C carrier (Chronic) COPD (chronic obstructive pulmonary disease) (Chronic) Anxiety and depression (Chronic) HTN (hypertension) (Chronic) HLD (hyperlipidemia) (Chronic) GERD (gastroesophageal reflux disease) (Chronic) PAD (peripheral artery disease) (Chronic) Allergies/Adverse Reactions: Allergies povidone-iodine [From Betadine] Allergy (Verified 06/06/17 14:24) Hives Rktotoj-Dsg-Moy Reductase Inhibitor Adverse Reaction (Verified 06/06/17 14:24) MESSED MY LIVER UP adhesive tape Allergy (Uncoded 06/06/17 14:24) Itching/rash Home Medications: Ambulatory Orders Medication Instructions Recorded Albuterol Inhaler [Ventolin Hfa] 2 puff INHALATION Q4H PRN PRN 03/22/16 Aspirin [Aspirin, Baby] 81 mg PO DAILY@0800 03/22/16 Escitalopram Oxalate [Lexapro] 10 mg PO QHS 03/22/16 Ezetimibe [Zetia] 10 mg PO QHS 03/22/16 Fluticasone 0.05% [Flonase Nasal 2 spray NASAL BID 03/22/16 [place]] Multivitamin [Multiple Vitamins] 1 each PO DAILY 03/22/16 Omeprazole [Prilosec] 40 mg PO QHS 03/22/16 buPROPion XL [Wellbutrin Xl] 300 mg PO QHS 03/22/16 busPIRone [Buspar] 5 mg PO TID 03/22/16 Tiotropium [place] [Spiriva 2 puff INHALATION DAILY 10/20/16 Respimat] Cholecalciferol (Vitamin D3) 1,000 unit PO DAILY 12/09/16 [Vitamin D3] Tizanidine HCl [Zanaflex] 4 mg PO Q6H PRN PRN 12/27/16 Metoprolol Tartrate 25 mg PO BID #60 tablet 01/04/17 Nutritional Supplement [Chuy - 1 packet PO BIDCM packet 01/04/17 [place]] Acetaminophen [Tylenol Tablet] 650 mg PO Q6H PRN PRN tablet 01/13/17 Gabapentin [Neurontin] 800 mg PO TIDCM tablet 01/13/17 Ibuprofen [Motrin] 800 mg PO TID 06/06/17 Triamterene 37.5MG/Hctz 25MG 0.5 cap PO DAILY 06/06/17 [Dyazide (G)] Testosterone [Androderm 2mg/24 hr] 1 each TD 06/08/17 Piperacil/Tazobactam [Zosyn] 3.375 gm IV Q8 40 Days #120 dose 06/13/17 Diazepam [Valium] 5 mg PO 4X/DAY PRN PRN #30 tab 06/14/17 DiphenhydrAMINE [Benadryl] 25 mg PO Q6H PRN capsule 06/14/17 Docusate Sodium [Colace] 100 mg PO BID capsule 06/14/17 Ensure Enlive 120 ml PO 4X/DAY liquid 06/14/17 Heparin Sodium,Porcine/Pf [Heparin 500 unit IV UD PRN syringe 06/14/17 500 Unit/5 ml (100/ml)] Ibuprofen [Motrin] 800 mg PO Q8H PRN PRN tablet 06/14/17 Ipratropium [Atrovent Aerosols] 0.5 mg INHALATION Q6HWA.RT 06/14/17 solution Iron Polysaccharide Complex 150 mg PO DAILYCM capsule 06/14/17 [Ferrex 150] Loperamide [Imodium] 2 mg PO Q4H PRN PRN capsule 06/14/17 Nutritional Supplement [Chuy - 1 packet PO BIDCM packet 06/14/17 [place]] Oxycodone HCl/Acetaminophen 1 - 2 tab PO 4X/DAY PRN PRN 5 Days 06/14/17 [Percocet 5/325] #40 tab Testosterone [Androderm 2mg/24 hr] 1 each TD DAILY patch.td24 06/14/17 proMETHazine tablet [Phenergan 25 mg PO Q4H PRN PRN tablet 06/14/17 tablet] [place] [Ultra-Light Rollator] 1 walker MC .QDAILY 180 Days #1 ea 08/28/17 Maternal Family History: No pertinent history Paternal Family History: No pertinent history Smoking Status: Former smoker Physical Exam Vital Signs Temp Pulse Resp BP 96.4 F L 82 16 128/72 H 10/12/17 10:01 10/12/17 10:01 10/12/17 10:01 10/12/17 10:01 General: Alert, Oriented x3, Cooperative HEENT: Atraumatic Cardiovascular: Regular rate Psych/Mental Status: Normal Affect Assessment/Plan The patient has tolerated hyperbaric oxygen therapy well which will be continued as per the patient's medical plan.
[2017-10-13 09:40] VITALS: BP 131/72; BP 131/82; PULSE 105; PULSE 84; RESP 16; TEMP 35.5; TEMP 36.6
--- NOTE | 2017-10-13 11:24 | HBO.PN.PCM_ITS ---
History of Present Illness Date of Service: 10/13/17 Presenting Chief Complaint: Nonhealing radiation pressure ulcer, abscess ulcer right gluteal/ischial area, Stage IV, with 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 BRYN TROTTER is a 62 year old currently undergoing hyperbaric oxygen therapy for nonhealing radiation pressure sore abscess ulcer right gluteal/ ischial area, Stage IV, with 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 Progress: This is his second cycle of hyperbaric oxygen therapy with treatment. He has done well so far. This represents the 17th such hyperbaric oxygen therapy session in this cycle. Tolerance of hyperbaric oxygen therapy: Hyperbaric oxygen therapy was administered as per the facility's protocol. The patient tolerated hyperbaric oxygen therapy well, without complaints or complications. Upon emergence from the hyperbaric chamber today, the patient's vital signs remained stable. He was discharged in good condition. 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, stage 4 (Chronic) Anal cancer (Chronic) Hepatitis C carrier (Chronic) COPD (chronic obstructive pulmonary disease) (Chronic) Anxiety and depression (Chronic) HTN (hypertension) (Chronic) HLD (hyperlipidemia) (Chronic) GERD (gastroesophageal reflux disease) (Chronic) PAD (peripheral artery disease) (Chronic) Allergies/Adverse Reactions: Allergies povidone-iodine [From Betadine] Allergy (Verified 06/06/17 14:24) Hives Vtctbms-Mba-Mux Reductase Inhibitor Adverse Reaction (Verified 06/06/17 14:24) MESSED MY LIVER UP adhesive tape Allergy (Uncoded 06/06/17 14:24) Itching/rash Home Medications: Ambulatory Orders Medication Instructions Recorded Albuterol Inhaler [Ventolin Hfa] 2 puff INHALATION Q4H PRN PRN 03/22/16 Aspirin [Aspirin, Baby] 81 mg PO DAILY@0800 03/22/16 Escitalopram Oxalate [Lexapro] 10 mg PO QHS 03/22/16 Ezetimibe [Zetia] 10 mg PO QHS 03/22/16 Fluticasone 0.05% [Flonase Nasal 2 spray NASAL BID 03/22/16 [place]] Multivitamin [Multiple Vitamins] 1 each PO DAILY 03/22/16 Omeprazole [Prilosec] 40 mg PO QHS 03/22/16 buPROPion XL [Wellbutrin Xl] 300 mg PO QHS 03/22/16 busPIRone [Buspar] 5 mg PO TID 03/22/16 Tiotropium [place] [Spiriva 2 puff INHALATION DAILY 10/20/16 Respimat] Cholecalciferol (Vitamin D3) 1,000 unit PO DAILY 12/09/16 [Vitamin D3] Tizanidine HCl [Zanaflex] 4 mg PO Q6H PRN PRN 12/27/16 Metoprolol Tartrate 25 mg PO BID #60 tablet 01/04/17 Nutritional Supplement [[place]uy - 1 packet PO BIDCM packet 01/04/17 [place]] Acetaminophen [Tylenol Tablet] 650 mg PO Q6H PRN PRN tablet 01/13/17 Gabapentin [Neurontin] 800 mg PO TIDCM tablet 01/13/17 Ibuprofen [Motrin] 800 mg PO TID 06/06/17 Triamterene 37.5MG/Hctz 25MG 0.5 cap PO DAILY 06/06/17 [Dyazide (G)] Testosterone [Androderm 2mg/24 hr] 1 each TD 06/08/17 Piperacil/Tazobactam [Zosyn] 3.375 gm IV Q8 40 Days #120 dose 06/13/17 Diazepam [Valium] 5 mg PO 4X/DAY PRN PRN #30 tab 06/14/17 DiphenhydrAMINE [Benadryl] 25 mg PO Q6H PRN capsule 06/14/17 Docusate Sodium [Colace] 100 mg PO BID capsule 06/14/17 Ensure Enlive 120 ml PO 4X/DAY liquid 06/14/17 Heparin Sodium,Porcine/Pf [Heparin 500 unit IV UD PRN syringe 06/14/17 500 Unit/5 ml (100/ml)] Ibuprofen [Motrin] 800 mg PO Q8H PRN PRN tablet 06/14/17 Ipratropium [Atrovent Aerosols] 0.5 mg INHALATION Q6HWA.RT 06/14/17 solution Iron Polysaccharide Complex 150 mg PO DAILYCM capsule 06/14/17 [Ferrex 150] Loperamide [Imodium] 2 mg PO Q4H PRN PRN capsule 06/14/17 Nutritional Supplement [[place] - 1 packet PO BIDCM packet 06/14/17 [place]] Oxycodone HCl/Acetaminophen 1 - 2 tab PO 4X/DAY PRN PRN 5 Days 06/14/17 [Percocet 5/325] #40 tab Testosterone [Androderm 2mg/24 hr] 1 each TD DAILY patch.td24 06/14/17 proMETHazine tablet [Phenergan 25 mg PO Q4H PRN PRN tablet 06/14/17 tablet] [place] [Ultra-Light Rollator] 1 shaina MC .QDAILY 180 Days #1 ea 08/28/17 Maternal Family History: No pertinent history Paternal Family History: No pertinent history Smoking Status: Former smoker Physical Exam Vital Signs Temp Pulse Resp BP 96 F L 105 H 16 131/72 H 10/13/17 09:40 10/13/17 09:40 10/13/17 09:40 10/13/17 09:40 Assessment/Plan The patient has tolerated hyperbaric oxygen therapy well which will be continued as per the patient's medical plan.
[2017-10-16 10:00] VITALS: BP 152/94; BP 162/86; PULSE 74; PULSE 77; RESP 16; TEMP 36.6
--- NOTE | 2017-10-16 17:23 | HBO.PN.PCM_ITS ---
History of Present Illness Date of Service: 10/16/17 Presenting Chief Complaint: Nonhealing radiation pressure ulcer, abscess ulcer right gluteal/ischial area, Stage IV, with 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 BRYN TROTTER is a 62 year old currently undergoing hyperbaric oxygen therapy for nonhealing radiation pressure sore abscess ulcer right gluteal/ ischial area, Stage IV, with 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 Progress: This is his second cycle of hyperbaric oxygen therapy with treatment #19. Tolerance of hyperbaric oxygen therapy: Hyperbaric oxygen therapy was administered as per the facility's protocol. The patient tolerated hyperbaric oxygen therapy well, without complaints or complications. Upon emergence from the hyperbaric chamber today, the patient's vital signs remained stable. He was discharged in good condition. 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, stage 4 (Chronic) Anal cancer (Chronic) Hepatitis C carrier (Chronic) COPD (chronic obstructive pulmonary disease) (Chronic) Anxiety and depression (Chronic) HTN (hypertension) (Chronic) HLD (hyperlipidemia) (Chronic) GERD (gastroesophageal reflux disease) (Chronic) PAD (peripheral artery disease) (Chronic) Allergies/Adverse Reactions: Allergies povidone-iodine [From Betadine] Allergy (Verified 10/17/17 07:25) Hives Vkpolds-Gbd-Tsk Reductase Inhibitor Adverse Reaction (Verified 10/17/17 07:25) MESSED MY LIVER UP adhesive tape Allergy (Uncoded 10/17/17 07:25) Itching/rash Home Medications: Ambulatory Orders Medication Instructions Recorded Aspirin [Aspirin, Baby] 81 mg PO DAILY@0800 03/22/16 Escitalopram Oxalate [Lexapro] 10 mg PO QHS 03/22/16 Ezetimibe [Zetia] 10 mg PO QHS 03/22/16 Fluticasone 0.05% [Flonase Nasal 2 spray NASAL BID 03/22/16 [place]] Multivitamin [Multiple Vitamins] 1 each PO DAILY 03/22/16 Omeprazole [Prilosec] 40 mg PO QHS 03/22/16 buPROPion XL [Wellbutrin Xl] 300 mg PO QHS 03/22/16 busPIRone [Buspar] 5 mg PO TID 03/22/16 Tiotropium [place] [Spiriva 2 puff INHALATION DAILY 10/20/16 Respimat] Cholecalciferol (Vitamin D3) 1,000 unit PO DAILY 12/09/16 [Vitamin D3] Tizanidine HCl [Zanaflex] 4 mg PO Q6H PRN PRN 12/27/16 Acetaminophen [Tylenol Tablet] 650 mg PO Q6H PRN PRN tablet 01/13/17 Ibuprofen [Motrin] 800 mg PO TID 06/06/17 Triamterene 37.5MG/Hctz 25MG 0.5 cap PO DAILY 06/06/17 [Dyazide (G)] Testosterone [Androderm 2mg/24 hr] 1 each TD DAILY 06/08/17 DiphenhydrAMINE [Benadryl] 25 mg PO Q6H PRN capsule 06/14/17 Ibuprofen [Motrin] 800 mg PO Q8H PRN PRN tablet 06/14/17 Loperamide [Imodium] 2 mg PO Q4H PRN PRN capsule 06/14/17 Oxycodone HCl/Acetaminophen 1 - 2 tab PO 4X/DAY PRN PRN 5 Days 06/14/17 [Percocet 5/325] #40 tab Walker [Ultra-Light Rollator] 1 shaina MC .QDAILY 180 Days #1 ea 08/28/17 Docusate Sodium [Colace] 100 mg PO PRN PRN 10/16/17 Gabapentin [Neurontin] 800 mg PO TIDCM 10/16/17 Metoprolol Tartrate 25 mg PO BID 10/16/17 Nutritional Supplement [Chuy - 1 packet PO BIDCM 10/16/17 ORANGE FLAVOR] Smz/Tmp Ds [Bactrim Ds] 1 tablet PO BID 10/16/17 Vancomycin IV 1,250 mg IV Q8H 40 Days #120 vial 10/18/17 Maternal Family History: No pertinent history Paternal Family History: No pertinent history Smoking Status: Former smoker Physical Exam Vital Signs Temp Pulse Resp BP 97.9 F 77 16 162/86 H 10/16/17 10:00 10/16/17 10:00 10/16/17 10:00 10/16/17 10:00
--- NOTE | 2017-10-16 17:24 | PCM.HP.BLA ---
History and Physical Date of Admission: 10/17/17 HISTORY OF PRESENT ILLNESS The patient is a 62 year old M who presents with long standing history of a nonhealing radiation pressure sore abscess ulcer right gluteal/ischial area, Stage IV. He developed an abscess last Fall that required surgery on 12/30/16 where he underwent surgical preparation right gluteal/ischial area with excision radiation pressure sore abscess wound and partial ostectomy for osteomyelitis (52.5 cm2). Operative cultures showed Pseudomonas, Staphylococcus, and Anaerobes. He was treated with Cefepime and Flagyl. Later on in the ECF, he had another culture which showed MRSA and Genna and he was treated with Doxycycline and Diflucan. He had trouble maintaining a seal with the VAC and he switched to Silver dressing changes. He also just finished HBO treatments for his history of radiation damage. His past history is significant for radiation treatments to his anal area for CA in 2002. He also had chemotherapy. He underwent continued debridement on 06/08/17 where he underwent excision radiation pressure sore abscess ulcer right ischial area, Stage IV, with partial ostectomy for osteomyelitis. Cultures showed Staphylococcus aureus, Achromobacter xylosoxidans, and Bacteroides fragilis. He was treated with Zosyn for 6 weeks. Pathology was positive for osteomyelitis. He was started on HBO treatments in preparation for further surgery because of the presence of osteomyelitis. Recent wound culture from 08/21/17 showed MRSA and Corynebacterium striatum, and Bacteroides fragilis. He was started on Doxycycline and Flagyl. He also was placed on Bactrim when he had trouble with Doxycycline for a few days. He presents today for further surgical excision of his right ischial pressure sore with partial ostectomy for osteomyelitis in preparation for wound closure with muscle flaps and/or fasciocutaneous flaps. PAST MEDICAL HISTORY COPD. Hepatitis C carrier. Anal carcinoma treated with chemotherapy and radiation therapy. Late effect radiation. MRSA. 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 PAST SURGICAL HISTORY Total hip arthroplasty - left. Total knee arthroplasty - Surgical preparation right gluteal/ischial area with excision radiation pressure sore abscess wound and partial ostectomy for osteomyelitis (52.5 cm2) - 12/30/16 Excision radiation pressure sore abscess ulcer right ischial area, Stage IV, with partial ostectomy for osteomyelitis - 06/08/17 ALLERGIES povidone-iodine [From Betadine] Allergy - Hives Piugsxk-Elf-Pon Reductase Inhibitor Adverse Reaction - MESSED MY LIVER UP adhesive tape Allergy - Itching/rash HOME MEDICATIONS Tylenol. Ventolin. Aspirin. Wellbutrin. Buspar. Vitamin D3. Lexapro. Flonase. Neurontin. Motrin. Metoprolol. MVI. Chuy. Prilosec. Percocet. Testosterone. Spiriva. Zanaflex. Dyazide. SOCIAL HISTORY Lives: With Family Smoking Status: Former smoker Tobacco Use: Non-smoker Alcohol: None Drugs: None FAMILY HISTORY Maternal - no pertinent history Paternal - no pertinent history REVIEW OF SYSTEMS Constitutional: Denies: Chills, Fever, Weight Change. HEENT: Denies: Head Aches, Sinus Congestion, Sinus Drainage. Cardiovascular: Denies: Chest Pain, Palpitations. Respiratory: Denies: Cough, Shortness of breath at rest, Sputum production. Gastrointestinal: Denies: Abdominal Pain, Nausea, Vomiting. Genitourinary: Denies: Dysuria. Musculoskeletal: Denies: Joint Pain, Joint Tenderness. Skin: Reports: Wounds - right buttocks., -. Denies: Rash. Neurological: Denies: Numbness, Tingling, Focal weakness. Psychiatric: Denies: Anxiety, Depression, Homicidal Ideations, Suicidal Ideations. Hematologic/ Lymphatic: Denies: Easy Bruising, Easy Bleeding PHYSICAL EXAMINATION General: Alert, Oriented x3. HEENT: PERRLA, EOMI. Neck: Supple, nontender. No cervical adenopathy. Lungs: Clear to auscultation. Cardiovascular: Regular rate and rhythm. Abdomen: Soft and non-distended. Extremities: No edema. Skin On the right ischial area is a Stage IV pressure sore with palpable bone. Measures 8 x 4 x 1.5 cm. Some fat necrosis present. Some granulation tissue present. No purulence drainage seen at this time. Mild tenderness to palpation. Neurological: Cranial nerves II-XII grossly intact. Psych/Mental Status: Normal Affect, Appropriate. ASSESSMENT 1. 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 2. Late effect radiation right gluteal/ischial area. 3. Osteomyelitis. 4. MRSA. 5. History of anal CA treated with chemotherapy and radiation therapy. 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 Will send tissue and bone to Pathology to evaluate for carcinoma and to evaluate for osteomyelitis. Will send tissue and bone to Microbiology to evaluate for infection. A positive culture may necessitate antibiotic modification. He has history of MRSA. Will treat perioperatively with Vancomycin and Zosyn. Will try and get the VAC to seal this time. If not able, then will continue with Silver dressing changes. He will need a specialty bed postop. Depending on the culture, he may need IV antibiotics postop again that may require a PICC line. Depending on the severity of the infection, the flap may be postponed until the IV antibiotics have completed. After the flap, he will be on bedrest for 6 weeks and would need to go to an ECF for that purpose. Depending on what is found at the time of surgery as well as what is found on Pathology and Microbiology, will determine HBO treatments to improve vascularity and improve the healing of this radiation wound. When this radiation wound is maximized, he will need a fasciocutaneous or a muscle flap. Anticipate increased metabolic demands from the wound and the infection. Will check a Prealbumin and he will need nutritional supplementation with protein to help the healing process. Surgery will be done under general anesthesia with a surgical observation overnight stay in the hospital. The patient was informed of the risks and complications of the procedure including alternatives to surgery. These were discussed with him personally. He voices understanding and wishes to proceed. He understands that if the wound is very close to the anal opening and stool contamination becomes an issue during the healing process, then a diverting colostomy would be necessary. 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
== END 2017-11-10 23:59 ==
LOC: WC 10:00
PROVIDERS: Family Provider Internal Medicine; PCP Internal Medicine; Visit Provider Surgery
DX: L59.8 Other specified disorders of the skin and subcutaneous tissue related to radiation (principal); L89.214 Pressure ulcer of right hip, stage 4; Z87.891 Personal history of nicotine dependence; Z85.048 Personal history of other malignant neoplasm of rectum, rectosigmoid junction, and anus; Z92.21 Personal history of antineoplastic chemotherapy; Z86.14 Personal history of Methicillin resistant Staphylococcus aureus infection; K21.9 Gastro-esophageal reflux disease without esophagitis; B18.2 Chronic viral hepatitis C; E78.5 Hyperlipidemia, unspecified; I10 Essential (primary) hypertension; F41.9 Anxiety disorder, unspecified; F32.9 Major depressive disorder, single episode, unspecified; Z79.899 Other long term (current) drug therapy
CPT/HCPCS: 97605; 99183; 99211; G0277; G0463

== ENCOUNTER 2017-10-17 10:27 | Inpatient (IN) | payer MEDICAID, SELFPAY ==
[2017-10-17] VITALS (11 sets, daily range): BP systolic 105–160; BP diastolic 53–70; PULSE 64–93; RESP 14–18; TEMP 36.3–37.4; O2SAT 87–100; BMI 27.0; BMI 27.6
[2017-10-17 07:41] LABS: Erythrocyte Sedimentation Rate 86 mm/hr (0-20)
[2017-10-17 07:43] LABS: ALB/GLOB Ratio 0.8 RATIO (0.9-2.4); AST(SGOT) 58 U/L (15-37); Alanine Aminotransfer ALT/SGPT 57 U/L (16-61); Albumin, Serum 3.4 g/dL (3.2-5.0); Alkaline Phosphatase 66 U/L (45-117); Anion Gap 8 (5-15); BUN 25 mg/dL (7-18); BUN/Creat Ratio 36.9 RATIO (10-20); Bilirubin, Direct 0.07 mg/dL (0.00-0.30); Calcium,Total 8.9 mg/dL (8.5-10.1); Chloride 99 mmol/L (98-107); Creatinine, Serum 0.68 mg/dL (0.70-1.30); EST Glomerular Filtration Rate 126 mL/min (>60); Est Glom Filt Rate - Afr Amer 152 mL/min (>60); Estimated Creatinine Clearance 103.96 ml/min; Globulin 4.5 g/dL (2.2-4.2); Glucose 91 mg/dL (74-106); Potassium 3.9 mmol/L (3.5-5.1); Protein, Total 7.9 g/dL (6.4-8.2); Sodium Level 136 mmol/L (136-145)
[2017-10-17 07:44] LABS: Hematocrit 34.1 % (40-54); Hemoglobin 11.1 g/dl (13.0-16.5); Mean Corp Hgb Conc 32.6 g/gl (32-36); Mean Corpuscular Hgb 26.8 pg (27.0-32.0); Mean Corpuscular Volume 82.4 fL (80-94); Mean Platelet Vol. 7.4 fl (6.2-12.0); Platelet Count 412 K/mm3 (150-450); RBC Distribution Width CV 18.4 % (11.6-14.6); RBC Distribution Width SD 54.7 fl (35.1-43.9); Red Blood Count 4.14 M/mm3 (4.6-6.2); White Blood Count 5.8 K/mm3 (4.4-11.0)
[2017-10-17 07:45] LABS: Scan Indicated on CBC? Y/N NO
[2017-10-17] MEDS: Vancomycin IV 1,000 MG/200 ML BAG 200 MG IV (07:56)
--- NOTE | 2017-10-17 08:45 | PRES_PTH ---
PATIENT: BRYN TROTTER LOC: [facility] U#:[id number] AGE/SX: 62/M ROOM: [facility] RE10/17/[address]: Dr. Venkat Mesa MD : [id number] BED: 1 DIS: 10/20/2017 SPEC #: [id number] RECD: 10/17/17 12:28 STATUS: JUAN DIEGO REQ #: [id number] BURT: 10/17/17 08:[address]: Venkat Mesa DEPT: SURGICAL PATHOLOGY RECD BY: Wesley Diana ENTERED: 10/17/17 13:22 SP TYPE: PRESS SORE OTHR DR: Dr. Winnie Gonzales MD Tissues: A - Ischium, NOS B - Ischium, NOS Procedures: Decalcification bone/plaque Special Stain Group I Surgery Specimen Level III AFB Stain (control) GMS Stain (control) HEADER OPERATION: Excision pressure sore, partial ostectomy PRE-OP DIAGNOSIS: Radiation pressure sore abscess ulcer right ischial area, stage IV TISSUE SUBMITTED: A ? Right ischial soft tissue for permanent, B - Right ischial bone for permanent MICROSCOPIC DIAGNOSIS A. Right ischial soft tissue: Focal ulceration, associated acute and chronic inflammation, granulation tissue reaction. Pseudoepitheliomatous hyperplasia, parakeratosis and hyperkeratosis. Special stains for acid fast bacilli and fungi are negative for organisms; matched controls are appropriate. B. Right ischial bone: Acute osteomyelitis. Reactive changes. GALLO:isi 10/20/17 COMMENT Please make reference to previous specimen ([id number]) right ischial bone with diagnosis of bone with acute osteomyelitis and right ischial soft tissue with diagnosis of focal ulceration, acute and chronic inflammation and dense fibrosis. MICROSCOPIC DESCRIPTION Slides are reviewed. GROSS DESCRIPTION A - Received in fixative is one container labeled with the patient's name and designated right ischial soft tissue. The specimen consists of an irregular piece of skin with underlying tissue measuring 6.5 x 3.5 x 1 cm. Also present in the container are multiple fragments of soft tissue measuring in aggregate 2 x 2 x 0.5 cm. The larger piece shows an extensive area of ulceration. No mass lesion is identified. Waiter/Waitress Head sections are submitted in two cassettes. B - Received in fixative is one container labeled with the patient's name and designated right ischial bone for permanent. The specimen consists of three variable sized pieces of bone that in aggregate measure 3 x 3 x 0.5 cm. The entire specimen is submitted in two cassettes after decalcification. / SJ:rg 10/17/17 TC:2 CPT: 65546 x2, 48763, 33237 x2
--- NOTE | 2017-10-17 10:21 | PCM.IMDPSTOP ---
Immediate Post-Op Note Date of Procedure: 10/17/17 Primary Surgeon/Physician: Venkat Mesa candle cutter: None Pre-Operative Diagnosis: 1. 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 2. Late effect radiation right gluteal/ischial area. 3. Osteomyelitis. 4. MRSA. 5. History of anal CA treated with chemotherapy and radiation therapy. Post-Operative Diagnosis: Same. Surgery/Procedure Performed:: Excision radiation pressure sore abscess ulcer right ischial area, Stage IV, with partial ostectomy for osteomyelitis. 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 He developed an abscess last Fall that required surgery on 12/30/16 where he underwent surgical preparation right gluteal/ischial area with excision radiation pressure sore abscess wound and partial ostectomy for osteomyelitis (52.5 cm2). Operative cultures showed Pseudomonas, Staphylococcus, and Anaerobes. He was treated with Cefepime and Flagyl. Later on in the ECF, he had another culture which showed MRSA and Genna and he was treated with Doxycycline and Diflucan. He had trouble maintaining a seal with the VAC and he switched to Silver dressing changes. He also just finished HBO treatments for his history of radiation damage. His past history is significant for radiation treatments to his anal area for CA in 2002. He also had chemotherapy. He underwent continued debridement on 06/08/17 where he underwent excision radiation pressure sore abscess ulcer right ischial area, Stage IV, with partial ostectomy for osteomyelitis. Cultures showed Staphylococcus aureus, Achromobacter xylosoxidans, and Bacteroides fragilis. He was treated with Zosyn for 6 weeks. Pathology was positive for osteomyelitis. He was started on HBO treatments in preparation for further surgery because of the presence of osteomyelitis. Recent wound culture from 08/21/17 showed MRSA and Corynebacterium striatum, and Bacteroides fragilis. He was started on Doxycycline and Flagyl. He also was placed on Bactrim when he had trouble with Doxycycline for a few days. He presents today for further surgical excision of his right ischial pressure sore with partial ostectomy for osteomyelitis in preparation for wound closure with muscle flaps and/or fasciocutaneous flaps. Today the patient underwent excision radiation pressure sore abscess ulcer right ischial area, Stage IV, with partial ostectomy for osteomyelitis. Size of defect right ischial area - 8 x 4 x 2 cm. Estimated Blood Loss: 50 ml. Specimen's removed: 1. Right ischial pressure sore soft tissue to Pathology and Microbiology. 2. Right ischial pressure sore bone to Pathology and Microbiology. 3. MRSA Wound DNA by PCR. Drains: None. Type of Anesthesia:: General - Admit VTE Documentation VTE Present on Admission: No VTE Mechan Device Prophylaxis: SCD's VTE Pharm Prophylaxis ordered?: No
--- NOTE | 2017-10-17 11:51 | PCM.RX.CS ---
Consult Pharmacy has been consulted to manage selected antiobiotic: Vancomycin Type of Consult: New start Suspected Infection: Skin/Soft tissue, Osteomyelitis Prior Doses of Antibiotics Received/Current Regimen: Medications Discontinued Medications Vancomycin HCl (Vancomycin) 1,000 mg in 200 mls @ 200 mls/hr IV PREOP ONE Stop: 10/17/17 07:59 Last Admin: 10/17/17 07:56 Dose: 200 mls/hr Labs: Sodium 136 mmol/L (136-145) 10/17/17 07:20 Potassium 3.9 mmol/L (3.5-5.1) 10/17/17 07:20 Chloride 99 mmol/L (98-107) 10/17/17 07:20 Carbon Dioxide 29.0 mmol/L (21.0-32.0) 10/17/17 07:20 Anion Gap 8 (5-15) 10/17/17 07:20 BUN 25 mg/dL (7-18) H 10/17/17 07:20 Creatinine 0.68 mg/dL (0.70-1.30) L 10/17/17 07:20 Est GFR (MDRD) Af Amer 152 mL/min (>60) 10/17/17 07:20 Est GFR (MDRD) Non-Af 126 mL/min (>60) 10/17/17 07:20 BUN/Creatinine Ratio 36.9 RATIO (10-20) H 10/17/17 07:20 Glucose 91 mg/dL (74-106) 10/17/17 07:20 Weight used for dosin kg Goal Trough: 15-20 mcg/mL Pharmacy Plan for Drug Dosing: Patient previously maintained on vancomycin 1250mg IV q8h for same indication with trough in goal range. Recommend same regimen, check trough prior to 4th dose per algorithm. Pharmacy Service will continue to monitor and adjust dosing as required. Follow-Up Labs: Trough Vancomycin - 10/18/17 @ 1830
--- NOTE | 2017-10-17 12:16 | NURSING ---
Katrina, junior legal secretary notified of need for specialty bed- understanding verbalized
--- NOTE | 2017-10-17 12:30 | CASEMGMT ---
RN MALA Face to Face with patient for initial transition planning/care coordination assessment. RN MALA introduced self and role at [facility]. Patient lying in bed, alert and oriented. Patient willing to participate in assessment and is able to answer all questions appropriately. Care providers, pharmacy, and demographics verified. See link attached. Patient wishes to discharge home with wound vac. If patient need IV ATBs will discharge to SNF. Patient states he has no further needs or concerns at this time. SHAHANA Og updated regarding possible need for placement pending coarse of treatment. CM to follow for discharge planning needs that may arise. Disposition Plan: TBD
[2017-10-17] MEDS: busPIRone 5 MG Tablet PO ×2 (13:33→21:25)
[2017-10-17] MEDS: Gabapentin 800 MG Tablet PO ×2 (13:33→16:38)
[2017-10-17 13:37] LABS: M R Staph aureus DNA By PCR POSITIVE (Negative); Probe Check PASS; Staph aureus DNA By PCR POSITIVE (Negative)
[2017-10-17] MEDS: Piperacil/Tazobactam 3.375 GM/50 ML ML IV ×2 (13:42→21:26)
[2017-10-17] MEDS: HYDROmorphone 1 MG/ML Syringe IV ×3 (13:43→21:14)
[2017-10-17] MEDS: 0.9% NaCl Peripheral Flush Adult/Peds IV ×4 (13:43→21:14)
[2017-10-17] MEDS: DiphenhydrAMINE 25 MG Capsule PO ×2 (13:43→21:14)
--- NOTE | 2017-10-17 15:48 | NURSING ---
[facility] SPECIALTY BED MATTRESS ARRIVED AND CONNECTED TO BED PER ORDER.
--- NOTE | 2017-10-17 20:22 | PCM.OPRPT ---
Report of Operation Date of Procedure: 10/17/17 Pre-Operative Diagnosis: 1. 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 2. Late effect radiation right gluteal/ischial area. 3. Osteomyelitis. 4. MRSA. 5. History of anal CA treated with chemotherapy and radiation therapy. Post-Operative Diagnosis: Same. Surgery/Procedure Performed:: Excision radiation pressure sore abscess ulcer right ischial area, Stage IV, with partial ostectomy for osteomyelitis. 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 He developed an abscess last Fall that required surgery on 12/30/16 where he underwent surgical preparation right gluteal/ischial area with excision radiation pressure sore abscess wound and partial ostectomy for osteomyelitis (52.5 cm2). Operative cultures showed Pseudomonas, Staphylococcus, and Anaerobes. He was treated with Cefepime and Flagyl. Later on in the ECF, he had another culture which showed MRSA and Genna and he was treated with Doxycycline and Diflucan. He had trouble maintaining a seal with the VAC and he switched to Silver dressing changes. He also just finished HBO treatments for his history of radiation damage. His past history is significant for radiation treatments to his anal area for CA in 2002. He also had chemotherapy. He underwent continued debridement on 06/08/17 where he underwent excision radiation pressure sore abscess ulcer right ischial area, Stage IV, with partial ostectomy for osteomyelitis. Cultures showed Staphylococcus aureus, Achromobacter xylosoxidans, and Bacteroides fragilis. He was treated with Zosyn for 6 weeks. Pathology was positive for osteomyelitis. He was started on HBO treatments in preparation for further surgery because of the presence of osteomyelitis. Recent wound culture from 08/21/17 showed MRSA and Corynebacterium striatum, and Bacteroides fragilis. He was started on Doxycycline and Flagyl. He also was placed on Bactrim when he had trouble with Doxycycline for a few days. He presents today for further surgical excision of his right ischial pressure sore with partial ostectomy for osteomyelitis in preparation for wound closure with muscle flaps and/or fasciocutaneous flaps. Patient was informed of the risks and complications of the procedure including alternatives to surgery. These were discussed with the patient personally. Patient voices understanding and wishes to proceed. Size of defect right ischial area - 8 x 4 x 2 cm. 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 Right ischial pressure sore soft tissue to Pathology and Microbiology. 2. Right ischial pressure sore bone to Pathology and Microbiology. 3. MRSA Wound DNA by PCR. Drains: None. Estimated Blood Loss (mL): 50 ml. Description of Procedure: Patient was taken to OR in supine position and placed under general anesthesia. He was then placed in the prone position and his ischial areas were prepped and draped in the usual fashion. SCD's were placed for DVT prophylaxis. Perioperative antibiotics were given intravenously. I excised the radiation pressure sore abscess ulcer right ischial area in a circular fashion down through the subcutaneous tissue and muscle which was indurated with fat necrosis and late effect radiation damage. No pus was seen. The indurated ulcer and abnormal bursal scar tissue was excised down to the bone. There was a small amount of exposed bone that never healed since his last excision back in 05/28. He has history of osteomyelitis, and I suspect persistent osteomyelitis. There was still a considerable amount of chronic radiated tissue damage deeply. After excising this radiated pressure sore ulcer down to the base, it had involved the ischial bone. The ischial bone was irregular in shape which can be consistent with osteomyelitis but also can be related to his radiation. The bone looked whiter and healthier than at his last excision in 05/28. It appears the HBO has been helpful to the appearance of the ischial bone. It was grayish in color back in 05/28. A partial ostectomy was performed with an osteotome and a mallet in a tangential direction. The bony edges were smoothed out with a rasp. After the partial ostectomy, the bone showed good bleeding. At his last surgery, the depth of the ulcer was close to the sciatic nerve and he had some burning nerve pain postop that necessitated increased Neurontin for relief. With the excision today with the amount of chronic radiated scar tissue present, I expect persistence in his burning nerve pain postoperatively that will continue to need Neurontin. Hemostasis was obtained with electrocautery. The wound was irrigated with saline. The size of the defect after excision was 8 x 4 x 2 cm. The patient is allergic to Betadine so will pack the wound with Aquacel Silver followed by moistened kerlix gauze and topped with a dry kerlix gauze and ABD pads and tape for a compression dressing followed by meshed underwear. Half the soft tissue and half the bone was sent to Pathology for analysis to rule out carcinoma and to evaluate for osteomyelitis. Half the soft tissue and half the bone was sent to Microbiology for culture. A positive culture may necessitate antibiotic modification. I also sent a MRSA swab by DNA PCR. He is being treated perioperatively with Vancomycin and Zosyn. Because the bone is involved, may plan on wound closure with a fasciocutaneous flap since a skin graft would not be indicated as long as the wound is not too deep. I don't want to detach the hamstrings muscle flap since the patient is ambulatory. Other muscle flap options include the vastus lateralis muscle flap and the gracilis muscle flap. Patient tolerated the procedure well and will be sent to PACU in satisfactory condition. He will be sent back upstairs for continued postop care. Tomorrow they will place the VAC. I anticipate the need for additional IV antibiotics and the use of a PICC line. He will need to go to an ECF for both the IV antibiotics and the VAC. Ideally would like to have HBO while getting the IV antibiotics in preparation for the flap but it won't happen as long as he is at a facility. So I may do some HBO after the antibiotics are done and he is at home prior to the flap and then plan on HBO after his flap and his 6 weeks of bedrest postop. Will discuss these findings with the patient. I am also thinking about the possibility of a temporary diverting colostomy prior to his next surgery. 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 This places any wound closure flap at risk for compromise and flap breakdown. Because he is ambulatory, we don't have a lot of choices for flaps short of using the microscope for free tissue transfer. Such procedures would need to be done at a tertiary center. Post discharge, he can followup at the [facility]ound Center to monitor the healing of the ulcer and to discuss HBO therapy and to discuss the possibility of a colostomy. Grafts/Implants Used: None. - Complications None. - Admit VTE Documentation VTE Present on Admission: No VTE Mechan Device Prophylaxis: SCD's VTE Pharm Prophylaxis ordered?: No Code Visit Surgery Charges CPT - 56429 ICD-10 - L89.314, T66.xxxS, M86.151, A49.02, L59.8, Z85.048
[2017-10-17] MEDS: Metoprolol Tartrate 25 MG Tablet PO (21:25)
[2017-10-17] MEDS: Pantoprazole Sodium 40 MG Tablet PO (21:25)
[2017-10-17] MEDS: Ezetimibe 10 MG Tablet PO (21:26)
[2017-10-17] MEDS: Fluticasone 0.05% 1 SPRAY NASAL.SRY NASAL (21:26)
[2017-10-17] MEDS: Escitalopram Oxalate 10 MG Tablet PO (21:26)
[2017-10-17] MEDS: buPROPion (XL) 300 MG TABLET.XL PO (21:26)
[2017-10-17] MEDS: Acetaminophen 325 MG Tablet 650 MG PO (22:52)
[2017-10-17] MEDS: oxyCODONE 5 MG Tablet 10 MG PO (22:53)
[2017-10-18] MEDS: Lactated Ringers 1,000 ML 60 ML IV ×2 (00:34→19:01)
[2017-10-18 03:15] VITALS: BP 116/70; PULSE 84; RESP 16; TEMP 37.2; O2SAT 95
[2017-10-18] MEDS: 0.9% NaCl Peripheral Flush Adult/Peds IV ×2 (03:20→06:39)
[2017-10-18] MEDS: DiphenhydrAMINE 25 MG Capsule PO ×3 (03:20→21:19)
[2017-10-18] MEDS: HYDROmorphone 1 MG/ML Syringe IV ×3 (03:20→20:31)
[2017-10-18 03:48] LABS: Hematocrit 29.4 % (40-54); Hemoglobin 9.4 g/dl (13.0-16.5); Mean Corpuscular Hgb 26.9 pg (27.0-32.0); Mean Platelet Vol. 7.3 fl (6.2-12.0); Platelet Count 307 K/mm3 (150-450); RBC Distribution Width CV 18.2 % (11.6-14.6); RBC Distribution Width SD 54.8 fl (35.1-43.9); White Blood Count 4.6 K/mm3 (4.4-11.0)
[2017-10-18 03:49] LABS: Scan Indicated on CBC? Y/N NO
[2017-10-18 03:56] LABS: Erythrocyte Sedimentation Rate 55 mm/hr (0-20)
[2017-10-18 04:05] LABS: Anion Gap 6 (5-15); BUN 16 mg/dL (7-18); BUN/Creat Ratio 25.8 RATIO (10-20); Calcium,Total 8.4 mg/dL (8.5-10.1); Chloride 99 mmol/L (98-107); Creatinine, Serum 0.62 mg/dL (0.70-1.30); EST Glomerular Filtration Rate 139 mL/min (>60); Est Glom Filt Rate - Afr Amer 168 mL/min (>60); Estimated Creatinine Clearance 114.02 ml/min; Glucose 100 mg/dL (74-106); Potassium 4.3 mmol/L (3.5-5.1); Sodium Level 137 mmol/L (136-145)
[2017-10-18 06:37] VITALS: PULSE 68
[2017-10-18] MEDS: Gabapentin 800 MG Tablet PO ×3 (06:37→16:29)
[2017-10-18] MEDS: Metoprolol Tartrate 25 MG Tablet PO ×2 (06:37→22:43)
[2017-10-18] MEDS: Piperacil/Tazobactam 3.375 GM/50 ML ML IV ×3 (06:38→22:36)
[2017-10-18] MEDS: oxyCODONE 5 MG Tablet 10 MG PO ×3 (06:38→19:06)
[2017-10-18] MEDS: busPIRone 5 MG Tablet PO ×3 (06:38→22:43)
[2017-10-18] MEDS: Acetaminophen 325 MG Tablet 650 MG PO (06:39)
[2017-10-18 09:15] VITALS: BP 120/62; PULSE 75; RESP 18; TEMP 37.1; O2SAT 96
[2017-10-18] MEDS: Fluticasone 0.05% 1 SPRAY NASAL.SRY NASAL ×2 (09:24→22:37)
[2017-10-18] MEDS: Multivitamins,Therapeutic Tablet 1 TABLET PO (09:24)
[2017-10-18] MEDS: HYDROCHLOROTHIAZIDE 12.5 MG CAPSULE PO (09:24)
--- NOTE | 2017-10-18 10:03 | OP.PCM_ITS ---
Report of Operation Date of Procedure: 10/17/17 Pre-Operative Diagnosis: 1. 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 2. Late effect radiation right gluteal/ischial area. 3. Osteomyelitis. 4. MRSA. 5. History of anal CA treated with chemotherapy and radiation therapy. Post-Operative Diagnosis: Same. Surgery/Procedure Performed:: Excision radiation pressure sore abscess ulcer right ischial area, Stage IV, with partial ostectomy for osteomyelitis. 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 He developed an abscess last Fall that required surgery on 12/30/16 where he underwent surgical preparation right gluteal/ischial area with excision radiation pressure sore abscess wound and partial ostectomy for osteomyelitis (52.5 cm2). Operative cultures showed Pseudomonas, Staphylococcus , and Anaerobes. He was treated with Cefepime and Flagyl. Later on in the ECF , he had another culture which showed MRSA and Genna and he was treated with Doxycycline and Diflucan. He had trouble maintaining a seal with the VAC and he switched to Silver dressing changes. He also just finished HBO treatments for his history of radiation damage. His past history is significant for radiation treatments to his anal area for CA in 2002. He also had chemotherapy. He underwent continued debridement on where he underwent excision radiation pressure sore abscess ulcer right ischial area, Stage IV, with partial ostectomy for osteomyelitis. Cultures showed Staphylococcus aureus, Achromobacter xylosoxidans, and Bacteroides fragilis. He was treated with Zosyn for 6 weeks. Pathology was positive for osteomyelitis. He was started on HBO treatments in preparation for further surgery because of the presence of osteomyelitis. Recent wound culture from 01/28 showed MRSA and Corynebacterium striatum, and Bacteroides fragilis. He was started on Doxycycline and Flagyl. He also was placed on Bactrim when he had trouble with Doxycycline for a few days. He presents today for further surgical excision of his right ischial pressure sore with partial ostectomy for osteomyelitis in preparation for wound closure with muscle flaps and/or fasciocutaneous flaps. Patient was informed of the risks and complications of the procedure including alternatives to surgery. These were discussed with the patient personally. Patient voices understanding and wishes to proceed. Size of defect right ischial area - 8 x 4 x 2 cm. 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 Right ischial pressure sore soft tissue to Pathology and Microbiology. 2. Right ischial pressure sore bone to Pathology and Microbiology. 3. MRSA Wound DNA by PCR. Drains: None. Estimated Blood Loss (mL): 50 ml. Description of Procedure: Patient was taken to OR in supine position and placed under general anesthesia. He was then placed in the prone position and his ischial areas were prepped and draped in the usual fashion. SCD's were placed for DVT prophylaxis. Perioperative antibiotics were given intravenously. I excised the radiation pressure sore abscess ulcer right ischial area in a circular fashion down through the subcutaneous tissue and muscle which was indurated with fat necrosis and late effect radiation damage. No pus was seen. The indurated ulcer and abnormal bursal scar tissue was excised down to the bone. There was a small amount of exposed bone that never healed since his last excision back in 05/28. He has history of osteomyelitis, and I suspect persistent osteomyelitis. There was still a considerable amount of chronic radiated tissue damage deeply. After excising this radiated pressure sore ulcer down to the base, it had involved the ischial bone. The ischial bone was irregular in shape which can be consistent with osteomyelitis but also can be related to his radiation. The bone looked whiter and healthier than at his last excision in . It appears the HBO has been helpful to the appearance of the ischial bone. It was grayish in color back in 05/28. A partial ostectomy was performed with an osteotome and a mallet in a tangential direction. The bony edges were smoothed out with a rasp. After the partial ostectomy, the bone showed good bleeding. At his last surgery, the depth of the ulcer was close to the sciatic nerve and he had some burning nerve pain postop that necessitated increased Neurontin for relief. With the excision today with the amount of chronic radiated scar tissue present, I expect persistence in his burning nerve pain postoperatively that will continue to need Neurontin. Hemostasis was obtained with electrocautery. The wound was irrigated with saline. The size of the defect after excision was 8 x 4 x 2 cm. The patient is allergic to Betadine so will pack the wound with Aquacel Silver followed by moistened kerlix gauze and topped with a dry kerlix gauze and ABD pads and tape for a compression dressing followed by meshed underwear. Half the soft tissue and half the bone was sent to Pathology for analysis to rule out carcinoma and to evaluate for osteomyelitis. Half the soft tissue and half the bone was sent to Microbiology for culture. A positive culture may necessitate antibiotic modification. I also sent a MRSA swab by DNA PCR. He is being treated perioperatively with Vancomycin and Zosyn. Because the bone is involved, may plan on wound closure with a fasciocutaneous flap since a skin graft would not be indicated as long as the wound is not too deep. I don't want to detach the hamstrings muscle flap since the patient is ambulatory. Other muscle flap options include the vastus lateralis muscle flap and the gracilis muscle flap. Patient tolerated the procedure well and will be sent to PACU in satisfactory condition. He will be sent back upstairs for continued postop care. Tomorrow they will place the VAC. I anticipate the need for additional IV antibiotics and the use of a PICC line. He will need to go to an ECF for both the IV antibiotics and the VAC. Ideally would like to have HBO while getting the IV antibiotics in preparation for the flap but it won't happen as long as he is at a facility. So I may do some HBO after the antibiotics are done and he is at home prior to the flap and then plan on HBO after his flap and his 6 weeks of bedrest postop. Will discuss these findings with the patient. I am also thinking about the possibility of a temporary diverting colostomy prior to his next surgery. 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 This places any wound closure flap at risk for compromise and flap breakdown. Because he is ambulatory, we don't have a lot of choices for flaps short of using the microscope for free tissue transfer. Such procedures would need to be done at a tertiary center. Post discharge, he can followup at the Wound Center to monitor the healing of the ulcer and to discuss HBO therapy and to discuss the possibility of a colostomy. Grafts/Implants Used: None. - Complications None. - Admit VTE Documentation VTE Present on Admission: No VTE Mechan Device Prophylaxis: SCD's VTE Pharm Prophylaxis ordered?: No Code Visit Surgery Charges CPT - 36215 ICD-10 - L89.314, T66.xxxS, M86.151, A49.02, L59.8, Z85.048
--- NOTE | 2017-10-18 11:00 | CASEMGMT ---
Addendum entered by Caroline Og 10/18/17 13:10: SW faxed referral to [facility]. Original Note: Social Work Note RN MALA Ramos updated this worker that pt has MRSA and will be discharged on IV antibiotics and pt will most likely need SNF. SW in to meet with pt to confirm discharge plans. Pt agreeable to referral being sent to [facility]. SW informed pt on referral process and pre-certification. Pt states understanding. SW ordered PT/OT for pt and awaiting evalutions from PT/OT. SHAHANA placed a call to [facility] and spoke with Ai. Ai states that Tala in admissions is out of the office today in a meeting but will relay the message of referral for pt. SHAHANA will fax referral once PT/OT evaluations are available. Plan: [facility] pending acceptance and pre-cert Caroline Og SOLAR FABRICATION TECHNICIAN, GEAR LAPPING MACHINE OPERATOR
[2017-10-18 15:15] VITALS: BP 122/68; PULSE 87; RESP 18; TEMP 37.2; O2SAT 97
--- NOTE | 2017-10-18 19:09 | PCM.PN.SRG ---
Subjective: Postop #1 Patient is resting comfortably. VAC was applied today. PICC line was placed today. The MRSA Wound DNA by PCR was positive. - Physical Exam General: Alert, Oriented x3 HEENT: PERRLA, EOMI Oral: Moist Mucosa Neck: Supple Abdomen: Soft, Non-Distended Skin: Ulcer/ Wound - right ischial ulcer is stable. No bleeding seen. VAC applied today. Neurological: Cranial nerves II-XII grossly intact Psych/Mental Status: Normal Affect, Appropriate Vital Signs Temp Pulse Resp BP Pulse Ox 98.9 F 87 18 122/68 H 97 10/18/17 15:15 10/18/17 15:15 10/18/17 15:15 10/18/17 15:15 10/18/17 15:15 Oxygen Flow Rate (L/min) 2 Oxygen Delivery Method Room Air Weight: 176 lb 5.917 oz Body Mass Index (BMI) 27.6 Intake and Output for Last 24 Hours 10/16/17 10/17/17 10/18/17 23:59 23:59 23:59 Intake Total 4278 / 4278 3497 / 3497 Output Total 2500 / 2500 4975 / 4975 Balance 1778 / 1778 -1478 / -1478 Microbiology Past 72 Hours 10/17/17 10:00 Gram Stain - Final Bone - Buttock Wound Culture - Preliminary Staphylococcus aureus 10/17/17 10:00 Gram Stain - Final Tissue - Buttock Wound Culture - Preliminary Gram negative jesus Gram positive organism Laboratory Tests Past 24 Hrs 10/18/17 10/18/17 10/18/17 03:38 03:38 18:50 WBC 4.6 RBC 3.50 L Hgb 9.4 L Hct 29.4 L MCV 84.0 MCH 26.9 L MCHC 32.0 RDW 18.2 H RDW Differential 54.8 H Plt Count 307 MPV 7.3 ESR 55 H Sodium 137 Potassium 4.3 Chloride 99 Carbon Dioxide 32.0 Anion Gap 6 BUN 16 Creatinine 0.62 L Estim Creat Clear Calc 114.02 Est GFR (MDRD) Af Amer 168 Est GFR (MDRD) Non-Af 139 BUN/Creatinine Ratio 25.8 H Glucose 100 Calcium 8.4 L C-React Prot Ext Range 37.50 H Prealbumin 20.0 Vancomycin Trough Pending Medical Necessity - Tobacco Use Smoking Status: Former smoker Tobacco Use: Cigarettes Assessment/Plan All Active Problems Methicillin resistant Staphylococcus aureus infection (Acute) Acute osteomyelitis of right pelvic region (Acute) Soft tissue radionecrosis (Acute) Cellulitis and abscess of buttock (Acute) Hyponatremia (Acute) Abscess, gluteal, right (Acute) 1. 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 2. Late effect radiation right gluteal/ischial area. 3. Osteomyelitis. 4. MRSA. 5. History of anal CA treated with chemotherapy and radiation therapy. 6. 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 7. Anemia of chronic disease, acute on chronic. VAC was applied today without difficulty. The operative culture shows Staphylococcus aureus in the bone and Gram negative jesus and Gram positive organism in the soft tissue. His MRSA Wound DNA by PCR was positive. Will continue the Vancomycin and the Zosyn. Because of the MRSA, would like 6 weeks of IV antibiotics prior to proceeding with wound closure with a muscle flap. A PICC line was placed today. With the complexity of the wound care with the VAC and the need for IV antibiotics, patient will need to go to a facility at discharge. He has been to one in [place] and would like to return there if possible. After the antibiotics are done, can continue the HBO treatments until the flap surgery. Prealbumin was 20. Encourage nutritional supplementation with protein to help the healing process. Hgb was 9.4 postop. It was 11.1 preop. He has anemia of chronic disease, acute on chronic. There was a small amount of blood loss from the surgery (50 ml) and the ulcer is not actively bleeding at this time. The decrease is mostly due to IV fluid hydration and dilution.
[2017-10-18 19:40] LABS: Vancomycin, Trough Level 14.4 ug/mL (5.0-15.0)
[2017-10-18 20:40] VITALS: BP 143/76; PULSE 95; RESP 16; TEMP 37.4; O2SAT 95
[2017-10-18] MEDS: Ezetimibe 10 MG Tablet PO (22:42)
[2017-10-18] MEDS: buPROPion (XL) 300 MG TABLET.XL PO (22:42)
[2017-10-18 22:43] VITALS: PULSE 95
[2017-10-18] MEDS: Pantoprazole Sodium 40 MG Tablet PO (22:43)
[2017-10-18] MEDS: Escitalopram Oxalate 10 MG Tablet PO (22:43)
[2017-10-19] VITALS (7 sets, daily range): BP systolic 110–150; BP diastolic 64–79; PULSE 78–87; RESP 16; TEMP 37–37.3; O2SAT 95–96
--- NOTE | 2017-10-19 01:16 | PCM.RX.CS ---
Consult Pharmacy has been consulted to manage selected antiobiotic: Vancomycin Type of Consult: Follow-up Suspected Infection: Osteomyelitis Prior Doses of Antibiotics Received/Current Regimen: Medications Vancomycin HCl 1,250 mg/ (Sodium Chloride) 275 mls @ 167 mls/hr IV Q8H DHARA Last Admin: 10/18/17 19:01 Dose: 167 mls/hr Labs: Sodium 137 mmol/L (136-145) 10/18/17 03:38 Potassium 4.3 mmol/L (3.5-5.1) 10/18/17 03:38 Chloride 99 mmol/L (98-107) 10/18/17 03:38 Carbon Dioxide 32.0 mmol/L (21.0-32.0) 10/18/17 03:38 Anion Gap 6 (5-15) 10/18/17 03:38 BUN 16 mg/dL (7-18) 10/18/17 03:38 Creatinine 0.62 mg/dL (0.70-1.30) L 10/18/17 03:38 Est GFR (MDRD) Af Amer 168 mL/min (>60) 10/18/17 03:38 Est GFR (MDRD) Non-Af 139 mL/min (>60) 10/18/17 03:38 BUN/Creatinine Ratio 25.8 RATIO (10-20) H 10/18/17 03:38 Glucose 100 mg/dL (74-106) 10/18/17 03:38 Vancomycin Trough 14.4 ug/mL (5.0-15.0) 10/18/17 18:50 Microbiology: Microbiology 10/17/17 10:00 Bone - Buttock Gram Stain - Final 10/17/17 10:00 Bone - Buttock Wound Culture - Preliminary Staphylococcus aureus 10/17/17 10:00 Tissue - Buttock Gram Stain - Final 10/17/17 10:00 Tissue - Buttock Wound Culture - Preliminary Gram negative jesus Gram positive organism Weight used for dosin kg Estimated Creatinine Clearance: 114 Goal Trough: 15-20 mcg/mL Pharmacy Plan for Drug Dosin10/18/17 trough level received as 14.4, slightly below target of 15-20. Will continue same dose and re-draw trough after 4 doses. Pharmacy Service will continue to monitor and adjust dosing as required. Follow-Up Labs: Trough Vancomycin Labs to be done on [date and time ordered]: 10/19/17 @8035
[2017-10-19] MEDS: HYDROmorphone 1 MG/ML Syringe IV ×2 (02:42→10:13)
[2017-10-19 06:24] LABS: Hematocrit 29.5 % (40-54); Hemoglobin 9.3 g/dl (13.0-16.5); Mean Corp Hgb Conc 31.5 g/gl (32-36); Mean Corpuscular Hgb 26.6 pg (27.0-32.0); Mean Corpuscular Volume 84.5 fL (80-94); Mean Platelet Vol. 7.4 fl (6.2-12.0); Platelet Count 349 K/mm3 (150-450); RBC Distribution Width CV 17.9 % (11.6-14.6); RBC Distribution Width SD 54.3 fl (35.1-43.9); Red Blood Count 3.49 M/mm3 (4.6-6.2); White Blood Count 5.3 K/mm3 (4.4-11.0)
[2017-10-19 06:25] LABS: Anion Gap 5 (5-15); BUN 13 mg/dL (7-18); BUN/Creat Ratio 22.9 RATIO (10-20); Calcium,Total 8.4 mg/dL (8.5-10.1); Chloride 96 mmol/L (98-107); Creatinine, Serum 0.57 mg/dL (0.70-1.30); EST Glomerular Filtration Rate 154 mL/min (>60); Est Glom Filt Rate - Afr Amer 186 mL/min (>60); Estimated Creatinine Clearance 124.02 ml/min; Glucose 111 mg/dL (74-106); Potassium 4.1 mmol/L (3.5-5.1); Sodium Level 135 mmol/L (136-145)
[2017-10-19 06:27] LABS: Scan Indicated on CBC? Y/N NO
[2017-10-19] MEDS: Piperacil/Tazobactam 3.375 GM/50 ML ML IV ×3 (06:55→22:52)
[2017-10-19] MEDS: busPIRone 5 MG Tablet PO ×3 (07:16→22:50)
[2017-10-19] MEDS: oxyCODONE 5 MG Tablet 10 MG PO ×3 (07:20→22:50)
[2017-10-19] MEDS: Multivitamins,Therapeutic Tablet 1 TABLET PO (08:15)
[2017-10-19] MEDS: Gabapentin 800 MG Tablet PO ×3 (08:15→17:01)
[2017-10-19] MEDS: Fluticasone 0.05% 1 SPRAY NASAL.SRY NASAL ×2 (10:12→22:51)
[2017-10-19] MEDS: HYDROCHLOROTHIAZIDE 12.5 MG CAPSULE PO (10:13)
[2017-10-19] MEDS: Metoprolol Tartrate 25 MG Tablet PO ×2 (10:13→22:50)
--- NOTE | 2017-10-19 10:45 | CASEMGMT ---
Social Work Note SHAHANA received message from Tala at [facility] asking if pt is currently receiving Chemotherapy or radiation therapy and asking about wound vac. SW in to speak with pt regarding this. Pt states that he isn't currently receiving Chemotherapy or radiation therapy and hasn't for about 10-15 years. SHAHANA placed a call to Tala at [phone] and left her a message informing her that pt is not currently receiving chemotherapy or radiation and that the wound vac was placed yesterday bridged to right hip and set at 150. SHAHANA informed Tala that pt is accepted to being pre-certification. SHAHANA waiting to hear back from Tala. Plan: [facility] pending acceptance and pre-cert Caroline Og CINDER PIT WORKER, CNMT
[2017-10-19] MEDS: DiphenhydrAMINE 25 MG Capsule PO (10:51)
--- NOTE | 2017-10-19 11:46 | PN.SURG_ITS ---
Subjective: Postop #2 Patient is resting comfortably. - Physical Exam General: Alert, Oriented x3 HEENT: PERRLA, EOMI Oral: Moist Mucosa Neck: Supple Abdomen: Soft, Non-Distended Skin: Ulcer/ Wound - right ischial ulcer is stable. VAC in place. Minimal drainage in the canister. Neurological: Cranial nerves II-XII grossly intact Psych/Mental Status: Normal Affect, Appropriate Vital Signs Temp Pulse Resp BP Pulse Ox 98.8 F 85 16 110/64 96 10/19/17 08:17 10/19/17 10:13 10/19/17 08:17 10/19/17 08:17 10/19/17 08:17 Oxygen Flow Rate (L/min) 2 Oxygen Delivery Method Room Air Weight: 176 lb 5.917 oz Body Mass Index (BMI) 27.6 Intake and Output for Last 24 Hours 10/17/17 10/18/17 10/19/17 23:59 23:59 23:59 Intake Total 4278 / 4278 3497 / 3497 2345 / 2345 Output Total 2500 / 2500 4975 / 4975 3400 / 3400 Balance 1778 / 1778 -1478 / -1478 -1055 / -1055 Microbiology Past 72 Hours 10/17/17 10:00 Gram Stain - Final Bone - Buttock Wound Culture - Final Meth. resistant Staph. aureus 10/17/17 10:00 Gram Stain - Final Tissue - Buttock Wound Culture - Preliminary GNR lactose puffer tender Staphylococcus aureus Pathology - pending. Laboratory Tests Past 24 Hrs 10/18/17 10/19/17 10/19/17 18:50 05:28 05:28 WBC 5.3 RBC 3.49 L Hgb 9.3 L Hct 29.5 L MCV 84.5 MCH 26.6 L MCHC 31.5 L RDW 17.9 H RDW Differential 54.3 H Plt Count 349 MPV 7.4 Sodium 135 L Potassium 4.1 Chloride 96 L Carbon Dioxide 34.0 H Anion Gap 5 BUN 13 Creatinine 0.57 L Estim Creat Clear Calc 124.02 Est GFR (MDRD) Af Amer 186 Est GFR (MDRD) Non-Af 154 BUN/Creatinine Ratio 22.9 H Glucose 111 H Calcium 8.4 L Vancomycin Trough 14.4 Medical Necessity - Tobacco Use Smoking Status: Former smoker Tobacco Use: Cigarettes Assessment/Plan All Active Problems Methicillin resistant Staphylococcus aureus infection (Acute) Acute osteomyelitis of right pelvic region (Acute) Soft tissue radionecrosis (Acute) Cellulitis and abscess of buttock (Acute) Hyponatremia (Acute) Abscess, gluteal, right (Acute) 1. 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 2. Late effect radiation right gluteal/ischial area. 3. Osteomyelitis. 4. MRSA. 5. History of anal CA treated with chemotherapy and radiation therapy. 6. 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 7. Anemia of chronic disease, acute on chronic, stable. VAC in place. To be changed three times per week at 150 mmHg continuous suction. The operative culture shows MRSA in the bone and Gram negative jesus lactose puffer tender and Staphylococcus aureus in the soft tissue. His MRSA Wound DNA by PCR was positive. Will continue the Vancomycin and the Zosyn. Because of the MRSA, would like 6 weeks of IV antibiotics prior to proceeding with wound closure with a muscle flap. A PICC line is in place. With the complexity of the wound care with the VAC and the need for IV antibiotics, patient will need to go to a facility at discharge. He has been to one in [place] and would like to return there if possible. After the antibiotics are done, can continue the HBO treatments until the flap surgery. Prealbumin was 20. Encourage nutritional supplementation with protein to help the healing process. Hgb was 9.3 today and stable from 9.4 yesterday. It was 11.1 preop. He has anemia of chronic disease, acute on chronic. There was a small amount of blood loss from the surgery (50 ml) and the ulcer is not actively bleeding at this time. The decrease is mostly due to IV fluid hydration and dilution. He was started on Iron supplements.
[2017-10-19] MEDS: Iron Polysaccharide Complex 150 MG CAPSULE PO (11:50)
[2017-10-19] MEDS: Ibuprofen 400 MG Tablet 800 MG PO ×2 (11:55→22:53)
--- NOTE | 2017-10-19 13:25 | CASEMGMT ---
Addendum entered by Caroline Og 10/19/17 14:34: SW updated pt that he has been accepted to [facility] and this worker is awaiting pre-certification. Pt states understanding. Original Note: Social Work Note SW received message from Tala at [facility] stating that she has accepted pt and she will submit for pre-cert. Plan: [facility] pending pre-cert Caroline Og SPECIAL ORDER JEWELER, DEATH CLEARANCE COORDINATOR
[2017-10-19] MEDS: Lactated Ringers 1,000 ML 60 ML IV (17:05)
[2017-10-19 19:31] LABS: Vancomycin, Trough Level 16.6 ug/mL (5.0-15.0)
--- NOTE | 2017-10-19 20:14 | PCM.RX.CS ---
Consult Pharmacy has been consulted to manage selected antiobiotic: Vancomycin Type of Consult: Follow-up Suspected Infection: Osteomyelitis Prior Doses of Antibiotics Received/Current Regimen: Patient on 1250mg iv q8h Labs: Sodium 135 mmol/L (136-145) L 10/19/17 05:28 Potassium 4.1 mmol/L (3.5-5.1) 10/19/17 05:28 Chloride 96 mmol/L (98-107) L 10/19/17 05:28 Carbon Dioxide 34.0 mmol/L (21.0-32.0) H 10/19/17 05:28 Anion Gap 5 (5-15) 10/19/17 05:28 BUN 13 mg/dL (7-18) 10/19/17 05:28 Creatinine 0.57 mg/dL (0.70-1.30) L 10/19/17 05:28 Est GFR (MDRD) Af Amer 186 mL/min (>60) 10/19/17 05:28 Est GFR (MDRD) Non-Af 154 mL/min (>60) 10/19/17 05:28 BUN/Creatinine Ratio 22.9 RATIO (10-20) H 10/19/17 05:28 Glucose 111 mg/dL (74-106) H 10/19/17 05:28 Vancomycin Trough 16.6 ug/mL (5.0-15.0) H 10/19/17 18:30 Microbiology: Microbiology 10/17/17 10:00 Bone - Buttock Gram Stain - Final 10/17/17 10:00 Bone - Buttock Wound Culture - Final Meth. resistant Staph. aureus 10/17/17 10:00 Tissue - Buttock Gram Stain - Final 10/17/17 10:00 Tissue - Buttock Wound Culture - Preliminary GNR lactose sample tailor Staphylococcus aureus Weight used for dosin kg Estimated Creatinine Clearance: 124 ml/min Goal Trough: 15-20 mcg/mL Pharmacy Plan for Drug Dosing: Review of vancomycin trough on 10.19.17 @1830 is 16.6 (goal 15-20 mcg/ml). Renal function ~same. Will continue same dose of 1250mg iv q8h and monitor. Pharmacy Service will continue to monitor and adjust dosing as required.
--- NOTE | 2017-10-19 20:19 | PHA.PHARE_ITS ---
Consult Pharmacy has been consulted to manage selected antiobiotic: Vancomycin Type of Consult: Follow-up Suspected Infection: Osteomyelitis Prior Doses of Antibiotics Received/Current Regimen: Patient on 1250mg iv q8h Labs: Sodium 135 mmol/L (136-145) L 10/19/17 05:28 Potassium 4.1 mmol/L (3.5-5.1) 10/19/17 05:28 Chloride 96 mmol/L (98-107) L 10/19/17 05:28 Carbon Dioxide 34.0 mmol/L (21.0-32.0) H 10/19/17 05:28 Anion Gap 5 (5-15) 10/19/17 05:28 BUN 13 mg/dL (7-18) 10/19/17 05:28 Creatinine 0.57 mg/dL (0.70-1.30) L 10/19/17 05:28 Est GFR (MDRD) Af Amer 186 mL/min (>60) 10/19/17 05:28 Est GFR (MDRD) Non-Af 154 mL/min (>60) 10/19/17 05:28 BUN/Creatinine Ratio 22.9 RATIO (10-20) H 10/19/17 05:28 Glucose 111 mg/dL (74-106) H 10/19/17 05:28 Vancomycin Trough 16.6 ug/mL (5.0-15.0) H 10/19/17 18:30 Microbiology: Microbiology 10/17/17 10:00 Bone - Buttock Gram Stain - Final 10/17/17 10:00 Bone - Buttock Wound Culture - Final Meth. resistant Staph. aureus 10/17/17 10:00 Tissue - Buttock Gram Stain - Final 10/17/17 10:00 Tissue - Buttock Wound Culture - Preliminary GNR lactose resident associate Staphylococcus aureus Weight used for dosin kg Estimated Creatinine Clearance: 124 ml/min Goal Trough: 15-20 mcg/mL Pharmacy Plan for Drug Dosing: Review of vancomycin trough on 10.19.17 @1830 is 16.6 (goal 15-20 mcg/ml). Renal function ~same. Will continue same dose of 1250mg iv q8h and monitor. Pharmacy Service will continue to monitor and adjust dosing as required.
[2017-10-19] MEDS: Pantoprazole Sodium 40 MG Tablet PO (22:50)
[2017-10-19] MEDS: Escitalopram Oxalate 10 MG Tablet PO (22:50)
[2017-10-19] MEDS: Ezetimibe 10 MG Tablet PO (22:50)
[2017-10-19] MEDS: buPROPion (XL) 300 MG TABLET.XL PO (22:50)
[2017-10-20] VITALS (7 sets, daily range): BP systolic 124–156; BP diastolic 72–82; PULSE 68–95; RESP 16–18; TEMP 37.1–37.3; O2SAT 95–100
[2017-10-20] MEDS: oxyCODONE 5 MG Tablet 10 MG PO ×3 (03:17→20:00)
[2017-10-20] MEDS: HYDROmorphone 1 MG/ML Syringe IV (05:45)
[2017-10-20] MEDS: busPIRone 5 MG Tablet PO ×3 (05:47→22:49)
[2017-10-20] MEDS: Piperacil/Tazobactam 3.375 GM/50 ML ML IV ×2 (05:47→15:24)
[2017-10-20] MEDS: DiphenhydrAMINE 25 MG Capsule PO (05:47)
[2017-10-20 06:15] LABS: Hematocrit 30.4 % (40-54); Hemoglobin 9.5 g/dl (13.0-16.5); Mean Corp Hgb Conc 31.3 g/gl (32-36); Mean Corpuscular Hgb 26.4 pg (27.0-32.0); Mean Corpuscular Volume 84.4 fL (80-94); Mean Platelet Vol. 7.3 fl (6.2-12.0); Platelet Count 369 K/mm3 (150-450); RBC Distribution Width CV 17.8 % (11.6-14.6); RBC Distribution Width SD 53.7 fl (35.1-43.9); White Blood Count 6.1 K/mm3 (4.4-11.0)
[2017-10-20 06:22] LABS: Scan Indicated on CBC? Y/N NO
[2017-10-20 06:26] LABS: Anion Gap 9 (5-15); BUN 15 mg/dL (7-18); BUN/Creat Ratio 27.5 RATIO (10-20); Calcium,Total 8.2 mg/dL (8.5-10.1); Chloride 97 mmol/L (98-107); Creatinine, Serum 0.54 mg/dL (0.70-1.30); EST Glomerular Filtration Rate 161 mL/min (>60); Est Glom Filt Rate - Afr Amer 195 mL/min (>60); Estimated Creatinine Clearance 130.91 ml/min; Glucose 135 mg/dL (74-106); Potassium 3.8 mmol/L (3.5-5.1); Sodium Level 138 mmol/L (136-145)
[2017-10-20] MEDS: Ibuprofen 400 MG Tablet 800 MG PO ×2 (06:58→18:36)
--- NOTE | 2017-10-20 09:12 | CASEMGMT ---
Addendum entered by Carolien Og 10/20/17 11:59: SHAHANA received message from Tala at [facility] stating that pre-cert has been obtained and pt is able to discharge to SNF today if medically cleared. Tala states that pre-cert is good for the weekend if the pt doesn't discharge today. SHAHANA updated RN MALA Ramos of this who states that she will call Dr. Mesa to update him on this. Original Note: Social Work Note SHAHANA faxed updated clinicals to Tala at [facility]. Plan: [facility] pending pre-cert Caroline Og SCARF AND ANNEAL OPERATOR, INK JET OPERATOR
[2017-10-20] MEDS: Multivitamins,Therapeutic Tablet 1 TABLET PO (09:50)
[2017-10-20] MEDS: HYDROCHLOROTHIAZIDE 12.5 MG CAPSULE PO (09:51)
[2017-10-20] MEDS: Fluticasone 0.05% 1 SPRAY NASAL.SRY NASAL (09:51)
[2017-10-20] MEDS: Iron Polysaccharide Complex 150 MG CAPSULE PO (09:51)
[2017-10-20] MEDS: Gabapentin 800 MG Tablet PO ×3 (09:51→17:48)
[2017-10-20] MEDS: Metoprolol Tartrate 25 MG Tablet PO ×2 (09:51→22:48)
--- NOTE | 2017-10-20 13:44 | CON.PCM_ITS ---
Problem List (1) Methicillin resistant Staphylococcus aureus infection Status: Acute Reason for Consult: osteo Consulted by: Dr. Mesa History of Present Illness: The patient is a 62 year old M with h/o anal cancer with radiation therapy, now with almost year of R pelvic osteo and recurrent infection requiring multiple courses of iv abx and debridement. Follows with Dr. Mesa. Most recently grew MRSA, corynebacterium, and b-frag, given bactrim and flagyl for the past few weeks. No fever, no n/v/d. Taken to OR 10/[address] Mesa for debridement. Now on vanc and zoysn, surg cx with mrsa, enterobacter, and corynebacterium. Feeling ok, picc in place. Full ROS performed and neg except as noted above. - Medical History Past Medical History (Chronic Problems): Chronic Problems Personal history of Methicillin resistant Staphylococcus aureus infection ( Chronic) History of anal cancer (Chronic) 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, stage 4 (Chronic) Anal cancer (Chronic) Hepatitis C carrier (Chronic) COPD (chronic obstructive pulmonary disease) (Chronic) Anxiety and depression (Chronic) HTN (hypertension) (Chronic) HLD (hyperlipidemia) (Chronic) GERD (gastroesophageal reflux disease) (Chronic) PAD (peripheral artery disease) (Chronic) Allergies/Adverse Reactions: Allergies povidone-iodine [From Betadine] Allergy (Verified 10/17/17 07:25) Hives Xlvigvj-Aek-Zqy Reductase Inhibitor Adverse Reaction (Verified 10/17/17 07:25) MESSED MY LIVER UP adhesive tape Allergy (Uncoded 10/17/17 07:25) Itching/rash Home Medications: Ambulatory Orders Medication Instructions Recorded Aspirin [Aspirin, Baby] 81 mg PO DAILY@0800 03/22/16 Escitalopram Oxalate [Lexapro] 10 mg PO QHS 03/22/16 Ezetimibe [Zetia] 10 mg PO QHS 03/22/16 Fluticasone 0.05% [Flonase Nasal 2 spray NASAL BID 03/22/16 [place]] Multivitamin [Multiple Vitamins] 1 each PO DAILY 03/22/16 Omeprazole [Prilosec] 40 mg PO QHS 03/22/16 buPROPion XL [Wellbutrin Xl] 300 mg PO QHS 03/22/16 busPIRone [Buspar] 5 mg PO TID 03/22/16 Tiotropium [place] [Spiriva 2 puff INHALATION DAILY 10/20/16 Respimat] Cholecalciferol (Vitamin D3) 1,000 unit PO DAILY 12/09/16 [Vitamin D3] Tizanidine HCl [Zanaflex] 4 mg PO Q6H PRN PRN 12/27/16 Acetaminophen [Tylenol Tablet] 650 mg PO Q6H PRN PRN tablet 01/13/17 Ibuprofen [Motrin] 800 mg PO TID 06/06/17 Triamterene 37.5MG/Hctz 25MG 0.5 cap PO DAILY 06/06/17 [Dyazide (G)] Testosterone [Androderm 2mg/24 hr] 1 each TD DAILY 06/08/17 DiphenhydrAMINE [Benadryl] 25 mg PO Q6H PRN capsule 06/14/17 Ibuprofen [Motrin] 800 mg PO Q8H PRN PRN tablet 06/14/17 Loperamide [Imodium] 2 mg PO Q4H PRN PRN capsule 06/14/17 Oxycodone HCl/Acetaminophen 1 - 2 tab PO 4X/DAY PRN PRN 5 Days 06/14/17 [Percocet 5/325] #40 tab Walker [Ultra-Light Rollator] 1 shaina MC .QDAILY 180 Days #1 ea 08/28/17 Docusate Sodium [Colace] 100 mg PO PRN PRN 10/16/17 Gabapentin [Neurontin] 800 mg PO TIDCM 10/16/17 Metoprolol Tartrate 25 mg PO BID 10/16/17 Nutritional Supplement [Chuy - 1 packet PO BIDCM 10/16/17 ORANGE FLAVOR] Smz/Tmp Ds [Bactrim Ds] 1 tablet PO BID 10/16/17 Vancomycin IV 1,250 mg IV Q8H 40 Days #120 vial 10/18/17 Piperacil/Tazobactam [Zosyn] 3.375 gm IV Q8 40 Days #120 ml 10/20/17 - Social History SMOKING STATUS:: Unknow if ever smoked Vital Signs Temp Pulse Resp BP Pulse Ox 98.8 F 68 18 124/72 H 100 10/20/17 09:30 10/20/17 09:51 10/20/17 09:30 10/20/17 09:30 08/10/18 09:30 Oxygen Flow Rate (L/min) 2 Oxygen Delivery Method Room Air Weight: 80 kg Body Mass Index (BMI) 27.6 Microbiology Past 72 Hours 10/17/17 10:00 Gram Stain - Final Bone - Buttock Wound Culture - Final Meth. resistant Staph. aureus Anaerobic Culture - Preliminary Checking for anaerobes, further studies to follow. 10/17/17 10:00 Gram Stain - Final Tissue - Buttock Wound Culture - Final Enterobacter cloacae complex Meth. resistant Staph. aureus Corynebacterium striatum Anaerobic Culture - Final No anaerobic bacteria isolated. Laboratory Tests Past 24 Hrs 10/19/17 10/20/17 10/20/17 18:30 06:00 06:00 WBC 6.1 RBC 3.60 L Hgb 9.5 L Hct 30.4 L MCV 84.4 MCH 26.4 L MCHC 31.3 L RDW 17.8 H RDW Differential 53.7 H Plt Count 369 MPV 7.3 Sodium 138 Potassium 3.8 Chloride 97 L Carbon Dioxide 32.0 Anion Gap 9 BUN 15 Creatinine 0.54 L Estim Creat Clear Calc 130.91 Est GFR (MDRD) Af Amer 195 Est GFR (MDRD) Non-Af 161 BUN/Creatinine Ratio 27.5 H Glucose 135 H Calcium 8.2 L Vancomycin Trough 16.6 H - Other Studies Radiology: [] reviewed Other Studies: [] Route of nutrition/ use of supplements: [] Nutritional Intake: [] IV Site: [] Walker Catheter: [] - Physical Exam General: Alert, Oriented x3, Cooperative, No apparent distress HEENT: Atraumatic, PERRLA, EOMI Neck: Supple, No Nodes Lungs: Clear to auscultation, Normal air movement Cardiovascular: Regular rate, Regular Rhythm, No murmurs Abdomen: Soft, Non Tender, Non-Distended Extremities: No edema Skin: No rashes, Ulcer/ Wound - wound vac in place IV Site: PICC, without redness Musculoskeletal: No Tenderness to Palpation of Joints or Extremities Neurological: Cranial nerves II-XII grossly intact - Assessment/Plan Antibiotics: [] Assessment/Plan: [] Pelvic osteo - s/p I&D by Dr. Mesa 10/17. Surg cx with MRSA, corynebacterium, enterobacter. Given these organisms and past growth, recommend 6 weeks of iv abx with vanc and zosyn. Weekly labs as ordered. Will follow, thank you, d/w correctional case records supervisor. Rx written for alec.
--- NOTE | 2017-10-20 13:54 | CASEMGMT ---
Social Work Note RN Anuradha updated this worker that Dr. Mesa will be discharging pt today and he is hoping to get over to [facility] before 4:00pm today to complete discharge paperwork. SHAHANA placed a call to Tala at [facility] [place], [facility] and left her a message to update her of this. SHAHANA completed convalescent 7000 in [place]. Original in pt's chart. Transportation form and Green sheet on chart. Plan: Pt to discharge to [facility] [place] today under skilled Caroline Og STEAM PIPE FITTER, PROTEOMICS SCIENTIST
--- NOTE | 2017-10-20 16:53 | PCM.PN.SRG ---
Subjective: Postop #3 Patient is resting comfortably. His ECF evaluation has been approved. - Physical Exam General: Alert, Oriented x3 HEENT: PERRLA, EOMI Oral: Moist Mucosa Neck: Supple Abdomen: Soft, Non-Distended Skin: Ulcer/ Wound - right ischial ulcer is stable. VAC in place. Minimal drainage in the canister. Neurological: Cranial nerves II-XII grossly intact Psych/Mental Status: Normal Affect, Appropriate Vital Signs Temp Pulse Resp BP Pulse Ox 99.1 F 80 18 150/74 H 97 10/20/17 15:16 10/20/17 15:16 10/20/17 15:16 10/20/17 15:16 10/20/17 15:16 Oxygen Flow Rate (L/min) 2 Oxygen Delivery Method Room Air Weight: 176 lb 5.917 oz Body Mass Index (BMI) 27.6 Intake and Output for Last 24 Hours 10/18/17 10/19/17 10/20/17 23:59 23:59 23:59 Intake Total 3497 / 3497 4012 / 4012 2557 / 2557 Output Total 4975 / 4975 5525 / 5525 3025 / 3025 Balance -1478 / -1478 -1513 / -1513 -468 / -468 Microbiology Past 72 Hours 10/17/17 10:00 Gram Stain - Final Bone - Buttock Wound Culture - Final Meth. resistant Staph. aureus Anaerobic Culture - Preliminary Checking for anaerobes, further studies to follow. 10/17/17 10:00 Gram Stain - Final Tissue - Buttock Wound Culture - Final Enterobacter cloacae complex Meth. resistant Staph. aureus Corynebacterium striatum Anaerobic Culture - Final No anaerobic bacteria isolated. Pathology - pending. Laboratory Tests Past 24 Hrs 10/19/17 10/20/17 10/20/17 18:30 06:00 06:00 WBC 6.1 RBC 3.60 L Hgb 9.5 L Hct 30.4 L MCV 84.4 MCH 26.4 L MCHC 31.3 L RDW 17.8 H RDW Differential 53.7 H Plt Count 369 MPV 7.3 Sodium 138 Potassium 3.8 Chloride 97 L Carbon Dioxide 32.0 Anion Gap 9 BUN 15 Creatinine 0.54 L Estim Creat Clear Calc 130.91 Est GFR (MDRD) Af Amer 195 Est GFR (MDRD) Non-Af 161 BUN/Creatinine Ratio 27.5 H Glucose 135 H Calcium 8.2 L Vancomycin Trough 16.6 H Medical Necessity - Tobacco Use Smoking Status: Former smoker Tobacco Use: Cigarettes Assessment/Plan All Active Problems Methicillin resistant Staphylococcus aureus infection (Acute) Acute osteomyelitis of right pelvic region (Acute) Soft tissue radionecrosis (Acute) Cellulitis and abscess of buttock (Acute) Hyponatremia (Acute) Abscess, gluteal, right (Acute) 1. 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 2. Late effect radiation right gluteal/ischial area. 3. Osteomyelitis. 4. MRSA. 5. History of anal CA treated with chemotherapy and radiation therapy. 6. 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 7. Anemia of chronic disease, acute on chronic, stable. VAC in place. To be changed three times per week at 150 mmHg continuous suction. The operative culture shows MRSA in the bone and Enterobacter cloacae, MRSA, and Corynebacterium striatum in the soft tissue. His MRSA Wound DNA by PCR was positive. Will continue the Vancomycin and the Zosyn. Because of the MRSA, would like 6 weeks of IV antibiotics prior to proceeding with wound closure with a muscle flap. A PICC line is in place. Pathology is pending. With the complexity of the wound care with the VAC and the need for IV antibiotics, patient will need to go to a facility at discharge. He has been to one in [place] and would like to return there. [facility] evaluation has been approved. Discharge to [facility] today. After the antibiotics are done, can continue the HBO treatments until the flap surgery. Prealbumin was 20. Encourage nutritional supplementation with protein to help the healing process. Hgb was 9.5 today and stable from 9.3 yesterday. It was 11.1 preop. He has anemia of chronic disease, acute on chronic. There was a small amount of blood loss from the surgery (50 ml) and the ulcer is not actively bleeding at this time. The decrease is mostly due to IV fluid hydration and dilution. He was started on Iron supplements. Wrote scripts for Percocet for pain (40 tabs) and for Valium for spasm (30 tabs). He will followup at the Wound Center after he is discharged from the ECF.
--- NOTE | 2017-10-20 16:53 | PCM.TXEXTCAR ---
- Diet 10/17/17 10:31 Diet: Regular Diet - Routine Orders/Code Status Routine Lab Work: CBC - qMonday. please fac results to wound center at [phone]., - - CMP, ESR, CRP, Vancomycin Trough qMonday. Pharmacy to dose the Vancomycin. Please fax results to wound center at [phone]. - Wound(s) RT HIP Wound Type: Pressure Injury Dressing Change: VAC changes three times per week at 150 mmHg continuous suction. - Suggestions for Active Care Hours to sit in a chair: 2 - do pressure releases every 10 miuntes for 10 seconds. Times a day to sit in chair: 4 - Therapies Weight Bearing: Weight bearing as tolerated Extremity Affected:: Right Lower Physical Therapy: Eval and Treat Occupational Therapy: Eval and Treat - Allergies/Procedures Done in Hospital Allergies/Adverse Reactions: Allergies povidone-iodine [From Betadine] Allergy (Verified 10/17/17 07:25) Hives Wvmvrjn-Yjf-Yez Reductase Inhibitor Adverse Reaction (Verified 10/17/17 07:25) MESSED MY LIVER UP adhesive tape Allergy (Uncoded 10/17/17 07:25) Itching/rash Procedures: PICC line placement, Wound Vac placement - Type of Care/Length of Stay Estimated LOS: More Than 30 Days - 6 weeks of IV antibiotics. Type of Care Needed: Skilled Rehab Potential: Good Prognosis: Good - Additional Orders/Day of Discharge H&P will serve as current which was dated: 10/16/17 Day of Discharge: 10/20/17 - Dietary and Speech Recommendations Dietitian Recommendations/Changes: Encourage nutritional supplementation with protein to help the healing process. - Follow Up Care Primary Care Physician: Winnie Gonzales MD [Primary Care Provider] - Please Follow Up With: Venkat Mesa MD When: at wound center after discharge from the [facility]. call [phone] for appt.
--- NOTE | 2017-10-20 16:57 | TREXTCAR_ITS ---
- Diet 10/17/17 10:31 Diet: Regular Diet - Routine Orders/Code Status Routine Lab Work: CBC - qMonday. please fac results to wound center at ., - - CMP, ESR, CRP, Vancomycin Trough qMonday. Pharmacy to dose the Vancomycin. Please fax results to wound center at [phone]. - Wound(s) RT HIP Wound Type: Pressure Injury Dressing Change: VAC changes three times per week at 150 mmHg continuous suction. - Suggestions for Active Care Hours to sit in a chair: 2 - do pressure releases every 10 miuntes for 10 seconds. Times a day to sit in chair: 4 - Therapies Weight Bearing: Weight bearing as tolerated Extremity Affected:: Right Lower Physical Therapy: Eval and Treat Occupational Therapy: Eval and Treat - Allergies/Procedures Done in Hospital Allergies/Adverse Reactions: Allergies povidone-iodine [From Betadine] Allergy (Verified 10/17/17 07:25) Hives Qrxfftr-Cnx-Ghj Reductase Inhibitor Adverse Reaction (Verified 10/17/17 07:25) MESSED MY LIVER UP adhesive tape Allergy (Uncoded 10/17/17 07:25) Itching/rash Procedures: PICC line placement, Wound Vac placement - Type of Care/Length of Stay Estimated LOS: More Than 30 Days - 6 weeks of IV antibiotics. Type of Care Needed: Skilled Rehab Potential: Good Prognosis: Good - Additional Orders/Day of Discharge H&P will serve as current which was dated: 10/16/17 Day of Discharge: 10/20/17 - Dietary and Speech Recommendations Dietitian Recommendations/Changes: Encourage nutritional supplementation with protein to help the healing process. - Follow Up Care Primary Care Physician: Winnie Gonzales MD [Primary Care Provider] - Please Follow Up With: Venkat Mesa MD When: at wound center after discharge from the [facility]. call [phone] for appt.
--- NOTE | 2017-10-20 17:12 | PCM.DC.SUM ---
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 Acute osteomyelitis. Anemia of chronic disease, acute on chronic. MRSA. - Secondary Discharge Diagnosis History of anal CA treated with chemotherapy and radiation therapy Hepatitis C carrier COPD (chronic obstructive pulmonary disease) Anxiety and depression Hypertension Hyperlipidemia GERD (gastroesophageal reflux disease) PAD (peripheral artery disease) Late effect radiation right gluteal/ischial area Hospital Course and Treatment Imaging Results: None. CONSULTATIONS Dr. Escamilla - Infectious Diseases. Operations: - - 10/17/17 - Excision radiation pressure sore abscess ulcer right ischial area, Stage IV, with partial ostectomy for osteomyelitis. Procedures: PICC line placement, Wound vac placement Summary of Care Provided: The patient is a 62 year old M who presents with long standing history of a nonhealing radiation pressure sore abscess ulcer right gluteal/ischial area, Stage IV. He recently had surgery on 06/08/17 and underwent excision radiation pressure sore abscess ulcer right ischial area, Stage IV, with partial ostectomy for osteomyelitis. Operative culture showed Achromobacter xylosoxidans, Staphylococcus aureus, and Bacteroides in the soft tissue and bone. He was treated with Zosyn at the [facility]. The Pathology was positive for osteomyelitis. He also has received HBO treatments for his soft tissue radionecrosis. In August he had another culture done at the [facility] which showed MRSA and Bacteroides fragilis. He was started on Doxycycline and Flagyl. He was also placed on Bactrim when the Doxycycline was giving him an upset stomach. While getting more HBO treatments, it was recommended to the patient to proceed with another excision of the pressure sore in preparation for wound closure with a muscle flap. I want to do an excision first to make sure we have him on the right antibiotics prior to the flap. After the antibiotics are done and after more HBO treatments, I will proceed with wound closure with a muscle flap. His past history is significant for radiation treatments to his anal area for CA in 2002. He also had chemotherapy. On 10/17/17, the patient underwent excision radiation pressure sore abscess ulcer right ischial area, Stage IV, with partial ostectomy for osteomyelitis. He tolerated the procedure well. He had the VAC placed the next day. He had trouble voiding and a block catheter was placed. It was removed at discharge. His MRSA Wound DNA by PCR was positive. He was treated perioperatively with Vancomycin and Zosyn. Operative cultures showed MRSA in the bone and MRSA, Enterobacter cloacae, and Corynebacterium striatum in the soft tissue. Pathology is pending. Dr. Escamilla from Infectious Diseases was consulted for antibiotic management. He wanted the patient to continue on the Vancomycin and Zosyn for 6 weeks. So a PICC line was placed and arrangements were made to go to an ECF for these treatments. His Prealbumin was 20.0. Nutritional supplementation with protein was encouraged to help the healing process. His Hgb drifted downward from 11.1 to 9.3 postop and then was 9.5 at discharge. He has anemia of chronic disease, acute on chronic, and there was little operative blood loss (50 ml) and the decrease was due to IV dilution. No bleeding was seen in the wound postop. He was discharged on Iron supplementation. Was able to maintain the VAC seal during the hospital stay. By the 3rd postop day, his ECF placement was approved and he was discharged. He will have 6 weeks of IV antibiotics with Vancomycin and Zosyn. Will check weekly labs while on these antibiotics (CBC, CMP, ESR, CRP, and Vancomycin Trough). Will determine at that time regarding surgical timing for wound closure. With the persistence of osteomyelitis, he would benefit from additional HBO treatments prior to proceeding with the flap for closure. Wrote scripts for Valium for spasm and Percocet for pain for the ECF. Followup at the Wound Center after discharge from the ECF. Will tentatively schedule wound closure with a muscle flap in mid December. This will allow time for the IV antibiotics and additional HBO treatments. He will also benefit from HBO treatments after the muscle flap surgery (he will be on bedrest for 6 weeks and will start the HBO treatments after he is off bedrest). Condition upon discharge is stable. Pathology is pending. Discharge Diet: No Restrictions, - - encourage nutritional supplementation with protein to help the healing process. Discharge Activity: May Not Drive, May Shower - on the days the vac is changed., - - may ambulate with assist. May shower in (days): 2 - on the days the vac is changed. Weight Bearing Status: Weight bearing as tolerated Additional Activity Instructions:: PT and OT to evaluate and treat for ambulation and gait training and strengthening. Call your doctor if your incision/area has: Continuous Slow Oozing, Sudden Increased Bleeding, Increased Pain/ Swelling, Increased Redness, Foul Smelling Discharge, Swelling at the incision site Call your doctor if you observe: Fever of 101 or Higher, Coldness, Increased Pain, Shortness of breath, Chest pain, Calf discomfort, Uncontrolled pain Suture Line Care: - - vac changes three times per week at 150 mmHg continuous suction. Change Dressing in (Days):: 2 - vac changes three times per week. Cleanse incision/area with: Soap & Water - may cleanse the wound with soap and water at the time of the vac changes., - - may take shower on the days the vac is changed. Home Medications: Medications to take at Discharge Aspirin [Aspirin, Baby] 81 mg PO DAILY@0800 03/22/16 Escitalopram Oxalate [Lexapro] 10 mg PO QHS 03/22/16 Ezetimibe [Zetia] 10 mg PO QHS 03/22/16 Fluticasone 0.05% [Flonase Nasal [place]] 2 spray NASAL BID 03/22/16 Multivitamin [Multiple Vitamins] 1 each PO DAILY 03/22/16 Omeprazole [Prilosec] 40 mg PO QHS 03/22/16 buPROPion XL [Wellbutrin Xl] 300 mg PO QHS 03/22/16 busPIRone [Buspar] 5 mg PO TID 03/22/16 Tiotropium Josephine [Spiriva Respimat] 2 puff INHALATION DAILY 10/20/16 Cholecalciferol (Vitamin D3) [Vitamin D3] 1,000 unit PO DAILY 12/09/16 Tizanidine HCl [Zanaflex] 4 mg PO Q6H PRN PRN 12/27/16 Acetaminophen [Tylenol Tablet] 650 mg PO Q6H PRN PRN tablet 01/13/17 Ibuprofen [Motrin] 800 mg PO TID 06/06/17 Triamterene 37.5MG/Hctz 25MG [Dyazide (G)] 0.5 cap PO DAILY 06/06/17 Testosterone [Androderm 2mg/24 hr] 1 each TD DAILY 06/08/17 DiphenhydrAMINE [Benadryl] 25 mg PO Q6H PRN capsule 06/14/17 Ibuprofen [Motrin] 800 mg PO Q8H PRN PRN tablet 06/14/17 Loperamide [Imodium] 2 mg PO Q4H PRN PRN capsule 06/14/17 Walker [Ultra-Light Rollator] 1 shaina .QDAILY 180 Days #1 ea 08/28/17 Docusate Sodium [Colace] 100 mg PO PRN PRN 10/16/17 Metoprolol Tartrate 25 mg PO BID 10/16/17 Nutritional Supplement [Chuy - ORANGE FLAVOR] 1 packet PO BIDCM 10/16/17 Vancomycin IV 1,250 mg IV Q8H 40 Days #120 vial 10/18/17 Diazepam [Valium] 5 mg PO 4X/DAY PRN PRN #30 tab 10/20/17 Ensure Clear 120 ml PO TIDCM liquid 10/20/17 Gabapentin [Neurontin] 800 mg PO TIDCM #90 tab 10/20/17 Hydrochlorothiazide 12.5 mg PO DAILY capsule 10/20/17 Ibuprofen [Motrin] 800 mg PO Q8H PRN PRN tablet 10/20/17 Iron Polysaccharide Complex [Ferrex 150] 150 mg PO DAILYCM capsule 10/20/17 Oxycodone HCl/Acetaminophen [Percocet 5-325] 1 - 2 tab PO 4X/DAY PRN PRN 5 Days #40 tab 10/20/17 Piperacil/Tazobactam [Zosyn] 3.375 gm IV Q8 40 Days #120 ml 10/20/17 proMETHazine tablet [Phenergan tablet] 25 mg PO Q4H PRN PRN tablet 10/20/17 Following Prescrptions Were Given to Patient: Diazepam [Valium] 5 mg PO 4X/DAY PRN PRN #30 tab PRN Reason: Spasms Oxycodone HCl/Acetaminophen [Percocet 5-325] 1 - 2 tab PO 4X/DAY PRN PRN 5 Days #40 tab PRN Reason: Pain Piperacil/Tazobactam [Zosyn] 3.375 gm IV Q8 40 Days #120 ml Vancomycin IV 1,250 mg IV Q8H 40 Days #120 vial Gabapentin [Neurontin] 800 mg PO TIDCM #90 tab Primary Care Physician: Winnie Gonzales MD [Primary Care Provider] - Please Follow Up With: Venkat Mesa MD When: at wound center after discharge from the [facility]. call [phone] for appt. Additional Instructions: Patient is to receive 6 weeks of IV Vancomycin and Zosyn. Pending Tests Upon Discharge: CBC, CMP, ESR, CRP, Vancomycin Trough qMonday. Pharmacy to dose the Vancomycin. Please fax results to wound center at [phone]. Disposition: [facility] facility Minutes spent on discharge:: 40 Patient Condition:: Stable Medical Necessity - Tobacco Use Smoking Status: Former smoker Tobacco Use: Cigarettes Meaningful Use Info Meaningful Use Diagnoses (Choose all that apply): None applicable
--- NOTE | 2017-10-20 18:00 | NURSING ---
pt updated on no showering tonight as would be detrimental to pt wound care and also safety issues. pt yells out loudy dammit, slightly agitated. states my head is just spinning right now. updated on plan/time of transportation arranged and that nurse to nurse report already provided. pt less agitated upon nurse leaving room, cooperative
[2017-10-20] MEDS: diazePAM 5 MG Tablet PO (18:36)
[2017-10-20 19:59] LABS: Vancomycin, Trough Level 24.8 ug/mL (5.0-15.0)
[2017-10-20] MEDS: Ezetimibe 10 MG Tablet PO (22:48)
[2017-10-20] MEDS: Escitalopram Oxalate 10 MG Tablet PO (22:49)
[2017-10-20] MEDS: Pantoprazole Sodium 40 MG Tablet PO (22:49)
[2017-10-20] MEDS: buPROPion (XL) 300 MG TABLET.XL PO (22:50)
--- NOTE | 2017-10-20 23:28 | NURSING ---
Called [facility] to let them know ambulance just left with the pt. He wanted to take a shower when he got to the [facility].
== END 2017-10-20 23:20 | disposition skilled nursing facility (03) | DRG 468 ==
LOC: MS3 15:59 → SDC 15:59
PROVIDERS: Admitting Provider Surgery; Family Provider Internal Medicine; PCP Internal Medicine; Visit Provider Surgery
PROC: 0QB20ZZ Excision of Right Pelvic Bone, Open Approach (ICD-10-PCS; principal; 2017-10-17 08:30)
DX: L59.8 Other specified disorders of the skin and subcutaneous tissue related to radiation (principal); M86.151 Other acute osteomyelitis, right femur; L89.314 Pressure ulcer of right buttock, stage 4; B18.2 Chronic viral hepatitis C; J44.9 Chronic obstructive pulmonary disease, unspecified; Z92.21 Personal history of antineoplastic chemotherapy; Z85.048 Personal history of other malignant neoplasm of rectum, rectosigmoid junction, and anus; Y84.2 Radiological procedure and radiotherapy as the cause of abnormal reaction of the patient, or of later complication, without mention of misadventure at the time of the procedure; B95.62 Methicillin resistant Staphylococcus aureus infection as the cause of diseases classified elsewhere; Z87.891 Personal history of nicotine dependence; D63.8 Anemia in other chronic diseases classified elsewhere; F41.9 Anxiety disorder, unspecified; F32.9 Major depressive disorder, single episode, unspecified; E78.5 Hyperlipidemia, unspecified; I10 Essential (primary) hypertension; I73.9 Peripheral vascular disease, unspecified; K21.9 Gastro-esophageal reflux disease without esophagitis; B96.89 Other specified bacterial agents as the cause of diseases classified elsewhere
CPT/HCPCS: 36415; 36569; 80048; 80053; 80202; 82248; 84134; 85027; 85652; 86140; 87070; 87075; 87077; 87102; 87106; 87186; 87205; 87206; 87640; 88304; 88305; 88311; 88312; 97110; 97162; 97165; 97530; 97535; 97802; J7040; J7050; J7120; A4216; J2405

== ENCOUNTER 2017-12-07 16:15 | Outpatient (RCR) | payer MEDICAID, SELFPAY ==
[2017-11-11 00:47] VITALS: BP 152/94; PULSE 74; RESP 16; TEMP 36.6
[2017-11-20 11:56] VITALS: BP 155/79; PULSE 88; RESP 16; TEMP 36.9
--- NOTE | 2017-11-20 21:38 | PCM.WC.PN ---
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 History of Wound: Surgery 10/17/17 - Excision radiation pressure sore abscess ulcer right ischial area, Stage IV, with partial ostectomy for osteomyelitis. Wound care - VAC. Operative culture - Soft tissue - MRSA, Enterobacter cloacae, Corynebacterium striatum. Bone - MRSA and Genna albicans. He was placed on Vancomycin and Zosyn. Will add Diflucan. Pathology - acute osteomyelitis. Prealbumin from 10/18/17 was 20.0. Encourage nutritional supplementation with protein to help the healing process. Today he denies fever. His appetite is good. Progress of Wound: Slightly improved. - Physical Exam Vital Signs Temp Pulse Resp BP 98.4 F 88 16 155/79 H 11/20/17 11:56 11/20/17 11:56 11/20/17 11:56 11/20/17 11:56 Wound Measurements and Assessment WC - Nurse 1 - General Ulcer Measurement Start: 11/20/17 11:55 Freq: Status: Active Protocol: Activity Type Activity Date Activity User E-Sign Co-Sign Detail Recorded Client Recorded Date Recorded By Document 11/20/17 11:56 MW [id number] 11/20/17 12:06 MW 11/20/17 11:56 Wound Center Nurse 1 [Ulcer Assessment] #1 R Ischial -Combined with other wound No -Current Size (cm) - Length 8 -Current Size (cm) - Width 2.6 -Current Size (cm) - Depth 2.6 -Total Square Cm 20.8 -Date of Last Picture (Recall this 11/20/17 field) -Photo Taken Yes -Epithelialization None Present -Tunneling No -Undermining/Tunneling Yes -Undermining/Tunneling Starts (O' 10 clock) -Undermining/Tunneling Ends (O'clock) 5 -Maximum Distance (cm) 3.5 -Exudate Amt Medium (34-66%) -Exudate Type Serosanguineous -Wound Margin Distinct, Outline Attached -Granulation Amt Large (67-100%) -Granulation Quality [place] -Slough/Fibrin Yes -Necrosis Amt Small (1-33%) -Necrotic Tissue Type Adherent Slough -Structure Exposed Bone -Texture (Nathalie-wound Skin Appearance) Scarring -Moisture (Nathalie-wound Skin Appearance Assessed ) Dry/Scaly -Color (Nathalie-wound Skin Appearance) Assessed -Temperature (Nathalie-wound Skin No Abnormality Appearance) (Pt Warm) -Tenderness on Palpation (Nathalie-wound Yes Skin Appearance) -Ulcer Cleansing Wound Cleanser -Foul Odor after Cleansing No -Anesthetic Used 4% Lidocaine Solution 5% Lidocaine Gel - Nurse 2 - General Ulcer CM Notes Start: 11/20/17 11:55 Freq: Status: Active Protocol: Activity Type Activity Date Activity User E-Sign Co-Sign Detail Recorded Client Recorded Date Recorded By Document 11/20/17 12:30 [id number] 11/20/17 12:31 11/20/17 12:30 Wound Center Nurse 2 [Procedure/Treatment] -Time 12:30 -Correct Patient Yes -Correct Side, Site, Position Yes -Correct Procedure Yes -Procedure Performed Yes -Type of Procedure Debridement -Clinical Debridement Muscle -Post Debridement Size (cm) - Length 8 -Post Debridement Size (cm) - Width 2.8 -Post Debridement Size (cm) - Depth 2.6 -Total Square Cm 22.4 -Wound/Ulcer Outcome Not Healed -Ulcer Cleansing Rinsed/ Irrigated with Saline -Foul Odor after Cleansing No -Bioengineered Tissue No -Bleeding Controlled with Pressure -Treatment Response Procedure Tolerated Well [See Physician Procedure note for Specifics] Pain Scale: 0-10 Numeric [Pain] -Is Patient Pain Free? Yes Debridement Note Post-Debridement Measurements/Treatment - Nurse 2 - General Ulcer CM Notes Start: 11/20/17 11:55 Freq: Status: Active Protocol: Activity Type Activity Date Activity User E-Sign Co-Sign Detail Recorded Client Recorded Date Recorded By Document 11/20/17 12:30 JF [id number] 11/20/17 12:31 11/20/17 12:30 Wound Center Nurse 2 #1 R Ischial -Time 12:30 -Correct Patient Yes -Correct Side, Site, Position Yes -Correct Procedure Yes -Procedure Performed Yes -Type of Procedure Debridement -Clinical Debridement Muscle -Post Debridement Size (cm) - Length 8 -Post Debridement Size (cm) - Width 2.8 -Post Debridement Size (cm) - Depth 2.6 -Total Square Cm 22.4 -Wound/Ulcer Outcome Not Healed -Ulcer Cleansing Rinsed/ Irrigated with Saline -Foul Odor after Cleansing No -Bioengineered Tissue No -Bleeding Controlled with Pressure -Treatment Response Procedure Tolerated Well Pain Scale: 0-10 Numeric Is Patient Pain Free? Yes Wound debrided: #1 Right ischial area. Laterality: Right Wound Grade/Stage: IV. Type of Debridement: Excisional debridement Anesthesia Used: 4% Lidocaine Solution Depth: Down to and including healthy tissue, in the subcutaneous layer, to muscle, to bone - bone is exposed but not debrided. Percentage of wound debrided: 100 Instrument Used: 7mm curette Tissue Removed: subcutaneous tissue and muscle. Severity: Fat Layer Exposed - muscle is exposed. bone is exposed but not debrided. Amount of bleeding with debridement: Mild Bleeding Controlled with: Pressure Patient tolerated procedure well Assessment/Plan Assessment: 1. 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 2. Late effect radiation right gluteal/ischial area. 3. Osteomyelitis. 4. History of anal CA treated with chemotherapy and radiation therapy. 5. MRSA. 6. 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 Plan: Continue VAC. Continue Vancomycin and Zosyn. Will begin Diflucan. When he is discharged from the F, will set him up for HBO treatments for soft tissue radionecrosis and osteomyelitis. This is in preparation for wound closure with a muscle flap. He will spend 6 weeks on bedrest. After which I want to continue the HBO treatments. He takes nutritional supplementation with protein to help the healing process. He has acute osteomyelitis and will need additional partial ostectomy before a myocutaneous flap is done. Followup 4 weeks.
[2017-12-07 15:59] VITALS: BP 137/76; PULSE 74; RESP 18; TEMP 36.2
== END 2017-12-10 23:59 ==
LOC: WC 16:15
PROVIDERS: Family Provider Internal Medicine; PCP Internal Medicine; Visit Provider Surgery
DX: L59.8 Other specified disorders of the skin and subcutaneous tissue related to radiation (principal); Z86.14 Personal history of Methicillin resistant Staphylococcus aureus infection; L89.214 Pressure ulcer of right hip, stage 4; Z85.048 Personal history of other malignant neoplasm of rectum, rectosigmoid junction, and anus
CPT/HCPCS: 11043; 11046; 97605; 97606

== ENCOUNTER 2018-01-10 10:30 | Outpatient (RCR) | payer MEDICAID, SELFPAY ==
[2017-12-11 00:40] VITALS: BP 137/76; PULSE 74; RESP 18; TEMP 36.2
[2017-12-11 12:16] VITALS: BP 129/73; PULSE 76; RESP 16; TEMP 36.7
[2017-12-13 11:21] VITALS: BP 127/76; PULSE 78; RESP 16; TEMP 35.7
[2017-12-15 13:27] VITALS: BP 136/73; PULSE 78; RESP 16; TEMP 36
[2017-12-18 13:32] VITALS: BP 138/56; PULSE 81; RESP 18; TEMP 36.5
--- NOTE | 2017-12-18 22:21 | PCM.WC.PN ---
Type of Wound Date of Service: 12/18/17 Chief Complaint: Nonhealing radiation pressure ulcer, abscess ulcer right gluteal/ischial area, Stage IV, with 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 History of Wound: Surgery 10/17/17 - Excision radiation pressure sore abscess ulcer right ischial area, Stage IV, with partial ostectomy for osteomyelitis. Wound care - VAC. Operative culture - Soft tissue - MRSA, Enterobacter cloacae, Corynebacterium striatum. Bone - MRSA and Genna albicans. He was placed on Vancomycin and Zosyn and has finished them. He was placed on Diflucan and will continue it. Pathology - acute osteomyelitis. Prealbumin from 10/18/17 was 20.0. Encourage nutritional supplementation with protein to help the healing process. Today he denies fever. His appetite is good. He is awaiting [facility] approval for his soft tissue radionecrosis and osteomyelitis in preparation for wound closure with muscle flaps. Progress of Wound: Slightly improved. - Physical Exam Vital Signs Temp Pulse Resp BP 97.7 F L 81 18 138/56 H 12/18/17 13:32 12/18/17 13:32 12/18/17 13:32 12/18/17 13:32 Wound Measurements and Assessment WC - Nurse 1 - General Ulcer Measurement Start: 12/11/17 12:16 Freq: Status: Active Protocol: Activity Type Activity Date Activity User E-Sign Co-Sign Detail Recorded Client Recorded Date Recorded By Document 12/18/17 13:32 DL [id number] 12/18/17 13:36 DL 12/18/17 13:32 Wound Center Nurse 1 [Ulcer Assessment] #1 R Ischial -Current Size (cm) - Length 8 -Current Size (cm) - Width 4.8 -Current Size (cm) - Depth 2.8 -Total Square Cm 38.4 -Photo Taken No -Undermining/Tunneling Starts (O' 9 clock) -Undermining/Tunneling Ends (O'clock) 5 -Maximum Distance (cm) 3.6 -Circular Undermining No -Exudate Amt Medium (34-66%) -Exudate Type Serosanguineous -Wound Margin Thickened & Rolled Under -Granulation Amt Medium (34-66%) -Granulation Quality [place] -Necrosis Amt Medium (34-66%) -Necrotic Tissue Type Adherent Slough -Structure Exposed Bone -Texture (Nathalie-wound Skin Appearance) Excoriation Scarring -Moisture (Nathalie-wound Skin Appearance Dry/Scaly ) -Color (Nathalie-wound Skin Appearance) No Abnormality -Temperature (Nathalie-wound Skin No Abnormality Appearance) (Pt Warm) -Tenderness on Palpation (Nathalie-wound No Skin Appearance) -Ulcer Cleansing Wound Cleanser -Foul Odor after Cleansing No -Anesthetic Used 4% Lidocaine Solution SKYLAR - Nurse 2 - General Ulcer CM Notes Start: 12/11/17 12:16 Freq: Status: Active Protocol: Activity Type Activity Date Activity User E-Sign Co-Sign Detail Recorded Client Recorded Date Recorded By Document 12/18/17 14:07 [id number] 12/18/17 14:08 12/18/17 14:07 Wound Center Nurse 2 [Procedure/Treatment] -Time 14:08 -Correct Patient Yes -Correct Side, Site, Position Yes -Correct Procedure Yes -Procedure Performed Yes -Type of Procedure Debridement -Clinical Debridement Muscle -Post Debridement Size (cm) - Length 8.1 -Post Debridement Size (cm) - Width 4.8 -Post Debridement Size (cm) - Depth 2.8 -Total Square Cm 38.88 -Wound/Ulcer Outcome Not Healed -Ulcer Cleansing Rinsed/ Irrigated with Saline -Foul Odor after Cleansing No -Bioengineered Tissue No -Bleeding Controlled with Pressure -Treatment Response Procedure Tolerated Well [See Physician Procedure note for Specifics] Pain Scale: 0-10 Numeric [Pain] -Is Patient Pain Free? Yes Debridement Note Post-Debridement Measurements/Treatment - Nurse 2 - General Ulcer CM Notes Start: 12/11/17 12:16 Freq: Status: Active Protocol: Activity Type Activity Date Activity User E-Sign Co-Sign Detail Recorded Client Recorded Date Recorded By Document 12/18/17 14:07 [id number] 12/18/17 14:08 12/18/17 14:07 Wound Center Nurse 2 #1 R Ischial -Time 14:08 -Correct Patient Yes -Correct Side, Site, Position Yes -Correct Procedure Yes -Procedure Performed Yes -Type of Procedure Debridement -Clinical Debridement Muscle -Post Debridement Size (cm) - Length 8.1 -Post Debridement Size (cm) - Width 4.8 -Post Debridement Size (cm) - Depth 2.8 -Total Square Cm 38.88 -Wound/Ulcer Outcome Not Healed -Ulcer Cleansing Rinsed/ Irrigated with Saline -Foul Odor after Cleansing No -Bioengineered Tissue No -Bleeding Controlled with Pressure -Treatment Response Procedure Tolerated Well Pain Scale: 0-10 Numeric Is Patient Pain Free? Yes Wound debrided: #1 Right ischial area. Laterality: Right Wound Grade/Stage: IV. Type of Debridement: Excisional debridement Anesthesia Used: 4% Lidocaine Solution Depth: Down to and including healthy tissue, in the subcutaneous layer, to muscle, to bone - bone is exposed but not debrided. Percentage of wound debrided: 100 Instrument Used: 7mm curette Tissue Removed: subcutaneous tissue and muscle. Severity: Fat Layer Exposed - muscle is exposed. bone is exposed but not debrided. Amount of bleeding with debridement: Mild Bleeding Controlled with: Pressure Patient tolerated procedure well Assessment/Plan Assessment: 1. 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 2. Late effect radiation right gluteal/ischial area. 3. Osteomyelitis. 4. History of anal CA treated with chemotherapy and radiation therapy. 5. MRSA. 6. 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 Plan: Continue VAC. The Vancomycin and Zosyn has been completed. Continue the Diflucan. Now that he is discharged from the F, will set him up for HBO treatments for soft tissue radionecrosis and osteomyelitis. Awaiting HBO approval. This is in preparation for wound closure with a muscle flap. He will spend 6 weeks on bedrest. After which I want to continue the HBO treatments. He takes nutritional supplementation with protein to help the healing process. He has acute osteomyelitis and will need additional partial ostectomy before a myocutaneous flap is done. Followup one week to see Brooke Nurse Practitioner. Followup 2 weeks to see me.
[2017-12-20 15:02] VITALS: BP 154/70; PULSE 85; RESP 20; TEMP 36.2
[2017-12-22 14:54] VITALS: BP 136/73; PULSE 73; RESP 18; TEMP 36.2
[2017-12-25 08:09] VITALS: BP 136/73; PULSE 83; RESP 18; TEMP 36.7
--- NOTE | 2017-12-25 09:23 | PCM.WC.PN ---
(1) Right ischial pressure sore, stage 4 Status: Chronic Current Visit: Yes Code(s): L89.314 - Pressure ulcer of right buttock, stage 4 (2) Acute osteomyelitis of right pelvic region Status: Acute Current Visit: Yes Code(s): M86.151 - Other acute osteomyelitis, right femur (3) Methicillin resistant Staphylococcus aureus infection Status: Acute Current Visit: Yes Code(s): A49.02 - Methicillin resistant Staphylococcus aureus infection, unspecified site (4) Personal history of Methicillin resistant Staphylococcus aureus infection Status: Chronic Current Visit: Yes Code(s): Z86.14 - Personal history of Methicillin resistant Staphylococcus aureus infection (5) Late effect of radiation Status: Chronic Current Visit: Yes Code(s): T66.XXXS - Radiation sickness, unspecified, sequela Comment: right ischial area (6) History of anal cancer Status: Chronic Current Visit: No Code(s): Z85.048 - Personal history of other malignant neoplasm of rectum, rectosigmoid junction, and anus (7) Soft tissue radionecrosis Status: Acute Current Visit: Yes Code(s): L59.8 - Other specified disorders of the skin and subcutaneous tissue related to radiation; Y84.2 - Radiological procedure and radiotherapy as the cause of abnormal reaction of the patient, or of later complication, without mention of misadventure at the time of the procedure Type of Wound Chief Complaint: Nonhealing radiation pressure ulcer, abscess ulcer right gluteal/ischial area, Stage IV, with 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 History of Wound: Surgery 10/17/17 - Excision radiation pressure sore abscess ulcer right ischial area, Stage IV, with partial ostectomy for osteomyelitis. Wound care - VAC. Operative culture - Soft tissue - MRSA, Enterobacter cloacae, Corynebacterium striatum. Bone - MRSA and Genna albicans. He was placed on Vancomycin and Zosyn and has finished them. He was placed on Diflucan and will continue it. Pathology - acute osteomyelitis. Prealbumin from 10/18/17 was 20.0. Encourage nutritional supplementation with protein to help the healing process. Today he denies fever. His appetite is good. He is awaiting [facility] approval for his soft tissue radionecrosis and osteomyelitis in preparation for wound closure with muscle flaps. Progress of Wound: Slightly improved. - Physical Exam Vital Signs Temp Pulse Resp BP 98.0 F 83 18 136/73 H 12/25/17 08:09 12/25/17 08:09 12/25/17 08:09 12/25/17 08:09 General: Alert, Oriented x3 Extremities: No edema Skin: Ulcer/ Wound - Right sacral ulcer. Nathalie wound is mildly erythematous. Encouraged him to try and not sit for long periods on this area. Wound Measurements and Assessment WC - Nurse 1 - General Ulcer Measurement Start: 12/11/17 12:16 Freq: Status: Active Protocol: Activity Type Activity Date Activity User E-Sign Co-Sign Detail Recorded Client Recorded Date Recorded By Document 12/25/17 08:09 [id number] 12/25/17 08:18 12/25/17 08:09 Wound Center Nurse 1 [Ulcer Assessment] #1 R Ischial -Combined with other wound No -Current Size (cm) - Length 8.2 -Current Size (cm) - Width 4.6 -Current Size (cm) - Depth 3.2 -Total Square Cm 37.72 -Photo Taken No -Epithelialization Small 1-33% -Tunneling No -Undermining/Tunneling No -Circular Undermining No -Exudate Amt Large (67-100%) -Exudate Type Serosanguineous -Wound Margin Flat & Intact -Granulation Amt Small (1-33%) -Granulation Quality Pale -Slough/Fibrin Yes -Necrosis Amt Medium (34-66%) -Necrotic Tissue Type Adherent Slough -Structure Exposed Bone -Texture (Nathalie-wound Skin Appearance) Assessed Friable -Moisture (Nathalie-wound Skin Appearance Assessed ) Dry/Scaly -Color (Nathalie-wound Skin Appearance) Assessed -Temperature (Nathalie-wound Skin No Abnormality Appearance) (Pt Warm) -Tenderness on Palpation (Nathalie-wound No Skin Appearance) -Ulcer Cleansing Rinsed/ Irrigated with Saline -Foul Odor after Cleansing No -Anesthetic Used 4% Lidocaine Solution [Edema Assessment] -Lower Limb Edema Present NA - Nurse 2 - General Ulcer CM Notes Start: 12/11/17 12:16 Freq: Status: Active Protocol: Activity Type Activity Date Activity User E-Sign Co-Sign Detail Recorded Client Recorded Date Recorded By Document 12/25/17 08:27 [id number] 12/25/17 08:32 12/25/17 08:27 Wound Center Nurse 2 [Procedure/Treatment] #1 R Ischial -Time 08:28 -Correct Patient Yes -Correct Side, Site, Position Yes -Correct Procedure Yes -Procedure Performed Yes -Type of Procedure Debridement -Clinical Debridement Bone -Post Debridement Size (cm) - Length 8.3 -Post Debridement Size (cm) - Width 4.6 -Post Debridement Size (cm) - Depth 3.2 -Total Square Cm 38.18 -Wound/Ulcer Outcome Not Healed -Ulcer Cleansing Rinsed/ Irrigated with Saline -Foul Odor after Cleansing No -Bioengineered Tissue No -Bleeding Controlled with Pressure -Treatment Response Procedure Tolerated Well [See Physician Procedure note for Specifics] Pain Scale: 0-10 Numeric [Pain] -Is Patient Pain Free? Yes Musculoskeletal: No Tenderness to Palpation of Joints or Extremities Neurological: Neuro grossly intact Psych/Mental Status: Normal Affect Debridement Note Post-Debridement Measurements/Treatment WC - Nurse 2 - General Ulcer CM Notes Start: 12/11/17 12:16 Freq: Status: Active Protocol: Activity Type Activity Date Activity User E-Sign Co-Sign Detail Recorded Client Recorded Date Recorded By Document 12/18/17 14:07 [id number] 12/18/17 14:08 Document 12/25/17 08:27 [id number] 12/25/17 08:32 12/18/17 12/25/17 14:07 08:27 Wound Center Nurse 2 #1 R Ischial -Time 14:08 08:28 -Correct Patient Yes Yes -Correct Side, Site, Position Yes Yes -Correct Procedure Yes Yes -Procedure Performed Yes Yes -Type of Procedure Debridement Debridement -Clinical Debridement Muscle Bone -Post Debridement Size (cm) - Length 8.1 8.3 -Post Debridement Size (cm) - Width 4.8 4.6 -Post Debridement Size (cm) - Depth 2.8 3.2 -Total Square Cm 38.88 38.18 -Wound/Ulcer Outcome Not Healed Not Healed -Ulcer Cleansing Rinsed/ Rinsed/ Irrigated with Irrigated with Saline Saline -Foul Odor after Cleansing No No -Bioengineered Tissue No No -Bleeding Controlled with Pressure Pressure -Treatment Response Procedure Procedure Tolerated Well Tolerated Well Pain Scale: 0-10 Numeric Is Patient Pain Free? Yes Yes Laterality: Right Type of Debridement: Excisional debridement Anesthesia Used: 4% Lidocaine Solution Depth: Down to and including healthy tissue, in the subcutaneous layer, to muscle, to bone Percentage of wound debrided: 100 Instrument Used: 7mm curette Tissue Removed: Subcutaneous tissue and slough Severity: Limited To Skin Breakdown Amount of bleeding with debridement: Mild Bleeding Controlled with: Pressure Patient tolerated procedure well Assessment/Plan Active Problems Methicillin resistant Staphylococcus aureus infection (Acute) Personal history of Methicillin resistant Staphylococcus aureus infection (Chronic) Acute osteomyelitis of right pelvic region (Acute) 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, stage 4 (Chronic) Soft tissue radionecrosis (Acute) Assessment: 1. 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 2. Late effect radiation right gluteal/ischial area. 3. Osteomyelitis. 4. History of anal CA treated with chemotherapy and radiation therapy. 5. MRSA. 6. 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 Plan: Continue VAC. The Vancomycin and Zosyn has been completed. Continue the Diflucan. Now that [facility] is [facility] from the [facility], will set him up for HBO treatments for soft tissue radionecrosis and osteomyelitis. Awaiting HBO approval, hoping he will be able to start this week. This is in preparation for wound closure with a muscle flap. He will spend 6 weeks on bedrest. After which Dr. Mesa would like him to continue the HBO treatments. He takes nutritional supplementation with protein to help the healing process. He has acute osteomyelitis and will need additional partial ostectomy before a myocutaneous flap is done. Followup one week with Dr. Mesa. Code Visit [id number]
--- NOTE | 2017-12-25 09:28 | PN.PCM_ITS ---
(1) Right ischial pressure sore, stage 4 Status: Chronic Current Visit: Yes Code(s): L89.314 - Pressure ulcer of right buttock, stage 4 (2) Acute osteomyelitis of right pelvic region Status: Acute Current Visit: Yes Code(s): M86.151 - Other acute osteomyelitis, right femur (3) Methicillin resistant Staphylococcus aureus infection Status: Acute Current Visit: Yes Code(s): A49.02 - Methicillin resistant Staphylococcus aureus infection, unspecified site (4) Personal history of Methicillin resistant Staphylococcus aureus infection Status: Chronic Current Visit: Yes Code(s): Z86.14 - Personal history of M ethicillin resistant Staphylococcus aureus infection (5) Late effect of radiation Status: Chronic Current Visit: Yes Code(s): T66.XXXS - Radiation sickness, unspecified, sequela Comment: right ischial area (6) History of anal cancer Status: Chronic Current Visit: No Code(s): Z85.048 - Personal history of other malignant neoplasm of rectum, rectosigmoid junction, and anus (7) Soft tissue radionecrosis Status: Acute Current Visit: Yes Code(s): L59.8 - Other specified disorders of the skin and subcutaneous tissue related to radiation; Y84.2 - Radiological procedure and radiotherapy as the cause of abnormal reaction of the patient, or of later complication, without mention of misadventure at the time of the procedure Type of Wound Chief Complaint: Nonhealing radiation pressure ulcer, abscess ulcer right gluteal/ischial area, Stage IV, with 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 History of Wound: Surgery 10/17/17 - Excision radiation pressure sore abscess ulcer right ischial area, Stage IV, with partial ostectomy for osteomyelitis. Wound care - VAC. Operative culture - Soft tissue - MRSA, Enterobacter cloacae, Corynebacterium striatum. Bone - MRSA and Genna albicans. He was placed on Vancomycin and Zosyn and has finished them. He was placed on Diflucan and will continue it. Pathology - acute osteomyelitis. Prealbumin from 10/18/17 was 20.0. Encourage nutritional supplementation with protein to help the healing process. Today he denies fever. His appetite is good. He is awaiting [facility] approval for his soft tissue radionecrosis and osteomyelitis in preparation for wound closure with muscle flaps. Progress of Wound: Slightly improved. - Physical Exam Vital Signs Temp Pulse Resp BP 98.0 F 83 18 136/73 H 12/25/17 08:09 12/25/17 08:09 12/25/17 08:09 12/25/17 08:09 General: Alert, Oriented x3 Extremities: No edema Skin: Ulcer/ Wound - Right sacral ulcer. Nathalie wound is mildly erythematous. Encouraged him to try and not sit for long periods on this area. Wound Measurements and Assessment WC - Nurse 1 - General Ulcer Measurement Start: 12/11/17 12:16 Freq: Status: Active Protocol: Activity Type Activity Date Activity User E-Sign Co-Sign Detail Recorded Client Recorded Date Recorded By Document 12/25/17 08:09 [id number] 12/25/17 08:18 12/25/17 08:09 Wound Center Nurse 1 [Ulcer Assessment] #1 R Ischial -Combined with other wound No -Current Size (cm) - Length 8.2 -Current Size (cm) - Width 4.6 -Current Size (cm) - Depth 3.2 -Total Square Cm 37.72 -Photo Taken No -Epithelialization Small 1-33% -Tunneling No -Undermining/Tunneling No -Circular Undermining No -Exudate Amt Large (67-100%) -Exudate Type Serosanguineous -Wound Margin Flat & Intact -Granulation Amt Small (1-33%) -Granulation Quality Pale -Slough/Fibrin Yes -Necrosis Amt Medium (34-66%) -Necrotic Tissue Type Adherent Slough -Structure Exposed Bone -Texture (Nathalie-wound Skin Appearance) Assessed Friable -Moisture (Nathalie-wound Skin Appearance Assessed ) Dry/Scaly -Color (Nathalie-wound Skin Appearance) Assessed -Temperature (Nathalie-wound Skin No Abnormality Appearance) (Pt Warm) -Tenderness on Palpation (Nathalie-wound No Skin Appearance) -Ulcer Cleansing Rinsed/ Irrigated with Saline -Foul Odor after Cleansing No -Anesthetic Used 4% Lidocaine Solution [Edema Assessment] -Lower Limb Edema Present NA - Nurse 2 - General Ulcer CM Notes Start: 12/11/17 12:16 Freq: Status: Active Protocol: Activity Type Activity Date Activity User E-Sign Co-Sign Detail Recorded Client Recorded Date Recorded By Document 12/25/17 08:27 [id number] 12/25/17 08:32 12/25/17 08:27 Wound Center Nurse 2 [Procedure/Treatment] #1 R Ischial -Time 08:28 -Correct Patient Yes -Correct Side, Site, Position Yes -Correct Procedure Yes -Procedure Performed Yes -Type of Procedure Debridement -Clinical Debridement Bone -Post Debridement Size (cm) - Length 8.3 -Post Debridement Size (cm) - Width 4.6 -Post Debridement Size (cm) - Depth 3.2 -Total Square Cm 38.18 -Wound/Ulcer Outcome Not Healed -Ulcer Cleansing Rinsed/ Irrigated with Saline -Foul Odor after Cleansing No -Bioengineered Tissue No -Bleeding Controlled with Pressure -Treatment Response Procedure Tolerated Well [See Physician Procedure note for Specifics] Pain Scale: 0-10 Numeric [Pain] -Is Patient Pain Free? Yes Musculoskeletal: No Tenderness to Palpation of Joints or Extremities Neurological: Neuro grossly intact Psych/Mental Status: Normal Affect Debridement Note Post-Debridement Measurements/Treatment WC - Nurse 2 - General Ulcer CM Notes Start: 12/11/17 12:16 Freq: Status: Active Protocol: Activity Type Activity Date Activity User E-Sign Co-Sign Detail Recorded Client Recorded Date Recorded By Document 12/18/17 14:07 [id number] 12/18/17 14:08 Document 12/25/17 08:27 [id number] 12/25/17 08:32 12/18/17 12/25/17 14:07 08:27 Wound Center Nurse 2 #1 R Ischial -Time 14:08 08:28 -Correct Patient Yes Yes -Correct Side, Site, Position Yes Yes -Correct Procedure Yes Yes -Procedure Performed Yes Yes -Type of Procedure Debridement Debridement -Clinical Debridement Muscle Bone -Post Debridement Size (cm) - Length 8.1 8.3 -Post Debridement Size (cm) - Width 4.8 4.6 -Post Debridement Size (cm) - Depth 2.8 3.2 -Total Square Cm 38.88 38.18 -Wound/Ulcer Outcome Not Healed Not Healed -Ulcer Cleansing Rinsed/ Rinsed/ Irrigated with Irrigated with Saline Saline -Foul Odor after Cleansing No No -Bioengineered Tissue No No -Bleeding Controlled with Pressure Pressure -Treatment Response Procedure Procedure Tolerated Well Tolerated Well Pain Scale: 0-10 Numeric Is Patient Pain Free? Yes Yes Laterality: Right Type of Debridement: Excisional debridement Anesthesia Used: 4% Lidocaine Solution Depth: Down to and including healthy tissue, in the subcutaneous layer, to muscle, to bone Percentage of wound debrided: 100 Instrument Used: 7mm curette Tissue Removed: Subcutaneous tissue and slough Severity: Limited To Skin Breakdown Amount of bleeding with debridement: Mild Bleeding Controlled with: Pressure Patient tolerated procedure well Assessment/Plan Active Problems Methicillin resistant Staphylococcus aureus infection (Acute) Personal history of Methicillin resistant Staphylococcus aureus infection (Chronic) Acute osteomyelitis of right pelvic region (Acute) 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, stage 4 (Chronic) Soft tissue radionecrosis (Acute) Assessment: 1. 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 2. Late effect radiation right gluteal/ischial area. 3. Osteomyelitis. 4. History of anal CA treated with chemotherapy and radiation therapy. 5. MRSA. 6. 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 Plan: Continue VAC. The Vancomycin and Zosyn has been completed. Continue the Diflucan. Now that [facility] is [facility] from the [facility], will set him up for HBO treatments for soft tissue radionecrosis and osteomyelitis. Awaiting HBO approval, hoping he will be able to start this week. This is in preparation for wound closure with a muscle flap. He will spend 6 weeks on bedrest. After which Dr. Mesa would like him to continue the HBO treatments. He takes nutritional supplementation with protein to help the healing process. He has acute osteomyelitis and will need additional partial ostectomy before a myocutaneous flap is done. Followup one week with Dr. Mesa. Code Visit [id number]
[2017-12-29 13:51] VITALS: BP 119/86; PULSE 84; RESP 18; TEMP 37
[2018-01-01 10:04] VITALS: BP 123/73; PULSE 74; RESP 18; TEMP 36.4
--- NOTE | 2018-01-01 21:50 | PCM.WC.PN ---
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 History of Wound: Surgery 10/17/17 - Excision radiation pressure sore abscess ulcer right ischial area, Stage IV, with partial ostectomy for osteomyelitis. Wound care - VAC. Operative culture - Soft tissue - MRSA, Enterobacter cloacae, Corynebacterium striatum. Bone - MRSA and Genna albicans. He was placed on Vancomycin and Zosyn and has finished them. He was placed on Diflucan and will continue it. Pathology - acute osteomyelitis. Prealbumin from 10/18/17 was 20.0. Encourage nutritional supplementation with protein to help the healing process. Today he denies fever. His appetite is good. He is awaiting [facility] approval for his soft tissue radionecrosis and osteomyelitis in preparation for wound closure with muscle flaps. Progress of Wound: Slightly improved. - Physical Exam Vital Signs Temp Pulse Resp BP 97.5 F L 74 18 123/73 H 01/01/18 10:04 01/01/18 10:04 01/01/18 10:04 01/01/18 10:04 Wound Measurements and Assessment WC - Nurse 1 - General Ulcer Measurement Start: 12/11/17 12:16 Freq: Status: Active Protocol: Activity Type Activity Date Activity User E-Sign Co-Sign Detail Recorded Client Recorded Date Recorded By Document 01/01/18 10:04 DV [id number] 01/01/18 10:06 DV 01/01/18 10:04 Wound Center Nurse 1 [Ulcer Assessment] #1 R Ischial -Combined with other wound No -Current Size (cm) - Length 9.0 -Current Size (cm) - Width 5.0 -Current Size (cm) - Depth 3.0 -Total Square Cm 45.00 -Photo Taken No -Epithelialization None Present -Tunneling No -Undermining/Tunneling No -Circular Undermining No -Exudate Amt Medium (34-66%) -Exudate Type Serosanguineous -Wound Margin Indistinct, Non -Visible -Granulation Amt Small (1-33%) -Granulation Quality Pale [place] -Slough/Fibrin Yes -Necrosis Amt Large (67-100%) -Necrotic Tissue Type Adherent Slough -Structure Exposed None/Limited to Skin Breakdown -Texture (Nathalie-wound Skin Appearance) Assessed Scarring -Moisture (Nathalie-wound Skin Appearance Assessed ) Weeping -Color (Nathalie-wound Skin Appearance) No Abnormality Assessed -Temperature (Nathalie-wound Skin No Abnormality Appearance) (Pt Warm) -Tenderness on Palpation (Nathalie-wound No Skin Appearance) -Ulcer Cleansing Rinsed/ Irrigated with Saline -Foul Odor after Cleansing No -Anesthetic Used 4% Lidocaine Solution - Nurse 2 - General Ulcer CM Notes Start: 12/11/17 12:16 Freq: Status: Active Protocol: Activity Type Activity Date Activity User E-Sign Co-Sign Detail Recorded Client Recorded Date Recorded By Document 01/01/18 10:54 [id number] 01/01/18 10:55 01/01/18 10:54 Wound Center Nurse 2 [Procedure/Treatment] -Time 10:54 -Correct Patient Yes -Correct Side, Site, Position Yes -Correct Procedure Yes -Procedure Performed Yes -Type of Procedure Debridement -Clinical Debridement Muscle -Post Debridement Size (cm) - Length 9.1 -Post Debridement Size (cm) - Width 5 -Post Debridement Size (cm) - Depth 3.1 -Total Square Cm 45.5 -Wound/Ulcer Outcome Not Healed -Ulcer Cleansing Rinsed/ Irrigated with Saline -Foul Odor after Cleansing No -Bioengineered Tissue No -Bleeding Controlled with Pressure -Treatment Response Procedure Tolerated Well [See Physician Procedure note for Specifics] Pain Scale: 0-10 Numeric [Pain] -Is Patient Pain Free? Yes Debridement Note Post-Debridement Measurements/Treatment - Nurse 2 - General Ulcer CM Notes Start: 12/11/17 12:16 Freq: Status: Active Protocol: Activity Type Activity Date Activity User E-Sign Co-Sign Detail Recorded Client Recorded Date Recorded By Document 12/18/17 14:07 [id number] 12/18/17 14:08 Document 12/25/17 08:27 [id number] 12/25/17 08:32 Document 01/01/18 10:54 [id number] 01/01/18 10:55 12/18/17 12/25/17 01/01/18 14:07 08:27 10:54 Wound Center Nurse 2 #1 R Ischial -Time 14:08 08:28 10:54 -Correct Patient Yes Yes Yes -Correct Side, Site, Position Yes Yes Yes -Correct Procedure Yes Yes Yes -Procedure Performed Yes Yes Yes -Type of Procedure Debridement Debridement Debridement -Clinical Debridement Muscle Bone Muscle -Post Debridement Size (cm) - Length 8.1 8.3 9.1 -Post Debridement Size (cm) - Width 4.8 4.6 5 -Post Debridement Size (cm) - Depth 2.8 3.2 3.1 -Total Square Cm 38.88 38.18 45.5 -Wound/Ulcer Outcome Not Healed Not Healed Not Healed -Ulcer Cleansing Rinsed/ Rinsed/ Rinsed/ Irrigated with Irrigated with Irrigated with Saline Saline Saline -Foul Odor after Cleansing No No No -Bioengineered Tissue No No No -Bleeding Controlled with Pressure Pressure Pressure -Treatment Response Procedure Procedure Procedure Tolerated Well Tolerated Well Tolerated Well Pain Scale: 0-10 Numeric Is Patient Pain Free? Yes Yes Yes Wound debrided: #1 Right ischial area. Laterality: Right Wound Grade/Stage: IV. Type of Debridement: Excisional debridement Anesthesia Used: 4% Lidocaine Solution Depth: Down to and including healthy tissue, in the subcutaneous layer, to muscle, to bone - bone is partially exposed but not debrided. Percentage of wound debrided: 100 Instrument Used: 7mm curette Tissue Removed: subcutaneous tissue and muscle. Severity: Fat Layer Exposed - muscle is exposed. bone is partially exposed but not debrided. 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 2. Late effect radiation right gluteal/ischial area. 3. Osteomyelitis. 4. History of anal CA treated with chemotherapy and radiation therapy. 5. MRSA. 6. 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 Plan: Continue VAC. The Vancomycin and Zosyn has been completed. Continue the Diflucan. Now that he is discharged from the [facility], will set him up for HBO treatments for soft tissue radionecrosis and osteomyelitis. Awaiting HBO approval. This is in preparation for wound closure with a muscle flap. After the muscle flap, he will spend 6 weeks on bedrest. After which I want to continue the HBO treatments. He takes nutritional supplementation with protein to help the healing process. He has acute osteomyelitis and will need additional partial ostectomy before a myocutaneous flap is done. Followup one week.
--- NOTE | 2018-01-02 21:50 | PN.PCM_ITS ---
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 History of Wound: Surgery 10/17/17 - Excision radiation pressure sore abscess ul cer right ischial area, Stage IV, with partial ostectomy for osteomyelitis. Wound care - VAC. Operative culture - Soft tissue - MRSA, Enterobacter cloacae, Corynebacterium striatum. Bone - MRSA and Genna albicans. He was placed on Vancomycin and Zosyn and has finished them. He was placed on Diflucan and will continue it. Pathology - acute osteomyelitis. Prealbumin from 10/18/17 was 20.0. Encourage nutritional supplementation with protein to help the healing process. Today he denies fever. His appetite is good. He is awaiting HBO approval for his soft tissue radionecrosis and osteomyelitis in preparation for wound closure with muscle flaps. Progress of Wound: Slightly improved. - Physical Exam Vital Signs Temp Pulse Resp BP 97.5 F L 74 18 123/73 H 01/01/18 10:04 01/01/18 10:04 01/01/18 10:04 01/01/18 10:04 Wound Measurements and Assessment WC - Nurse 1 - General Ulcer Measurement Start: 12/11/17 12:16 Freq: Status: Active Protocol: Activity Type Activity Date Activity User E-Sign Co-Sign Detail Recorded Client Recorded Date Recorded By Document 01/01/18 10:04 DV [id number] 01/01/18 10:06 DV 01/01/18 10:04 Wound Center Nurse 1 [Ulcer Assessment] #1 R Ischial -Combined with other wound No -Current Size (cm) - Length 9.0 -Current Size (cm) - Width 5.0 -Current Size (cm) - Depth 3.0 -Total Square Cm 45.00 -Photo Taken No -Epithelialization None Present -Tunneling No -Undermining/Tunneling No -Circular Undermining No -Exudate Amt Medium (34-66%) -Exudate Type Serosanguineous -Wound Margin Indistinct, Non -Visible -Granulation Amt Small (1-33%) -Granulation Quality [place] -Slough/Fibrin Yes -Necrosis Amt Large (67-100%) -Necrotic Tissue Type Adherent Slough -Structure Exposed None/Limited to Skin Breakdown -Texture (Nathalie-wound Skin Appearance) Assessed Scarring -Moisture (Nathalie-wound Skin Appearance Assessed ) Weeping -Color (Nathalie-wound Skin Appearance) No Abnormality Assessed -Temperature (Nathalie-wound Skin No Abnormality Appearance) (Pt Warm) -Tenderness on Palpation (Nathalie-wound No Skin Appearance) -Ulcer Cleansing Rinsed/ Irrigated with Saline -Foul Odor after Cleansing No -Anesthetic Used 4% Lidocaine Solution - Nurse 2 - General Ulcer CM Notes Start: 12/11/17 12:16 Freq: Status: Active Protocol: Activity Type Activity Date Activity User E-Sign Co-Sign Detail Recorded Client Recorded Date Recorded By Document 01/01/18 10:54 [id number] 01/01/18 10:55 01/01/18 10:54 Wound Center Nurse 2 [Procedure/Treatment] -Time 10:54 -Correct Patient Yes -Correct Side, Site, Position Yes -Correct Procedure Yes -Procedure Performed Yes -Type of Procedure Debridement -Clinical Debridement Muscle -Post Debridement Size (cm) - Length 9.1 -Post Debridement Size (cm) - Width 5 -Post Debridement Size (cm) - Depth 3.1 -Total Square Cm 45.5 -Wound/Ulcer Outcome Not Healed -Ulcer Cleansing Rinsed/ Irrigated with Saline -Foul Odor after Cleansing No -Bioengineered Tissue No -Bleeding Controlled with Pressure -Treatment Response Procedure Tolerated Well [See Physician Procedure note for Specifics] Pain Scale: 0-10 Numeric [Pain] -Is Patient Pain Free? Yes Debridement Note Post-Debridement Measurements/Treatment - Nurse 2 - General Ulcer CM Notes Start: 12/11/17 12:16 Freq: Status: Active Protocol: Activity Type Activity Date Activity User E-Sign Co-Sign Detail Recorded Client Recorded Date Recorded By Document 12/18/17 14:07 [id number] 12/18/17 14:08 Document 12/25/17 08:27 [id number] 12/25/17 08:32 Document 01/01/18 10:54 [id number] 01/01/18 10:55 12/18/17 12/25/17 01/01/18 14:07 08:27 10:54 Wound Center Nurse 2 #1 R Ischial -Time 14:08 08:28 10:54 -Correct Patient Yes Yes Yes -Correct Side, Site, Position Yes Yes Yes -Correct Procedure Yes Yes Yes -Procedure Performed Yes Yes Yes -Type of Procedure Debridement Debridement Debridement -Clinical Debridement Muscle Bone Muscle -Post Debridement Size (cm) - Length 8.1 8.3 9.1 -Post Debridement Size (cm) - Width 4.8 4.6 5 -Post Debridement Size (cm) - Depth 2.8 3.2 3.1 -Total Square Cm 38.88 38.18 45.5 -Wound/Ulcer Outcome Not Healed Not Healed Not Healed -Ulcer Cleansing Rinsed/ Rinsed/ Rinsed/ Irrigated with Irrigated with Irrigated with Saline Saline Saline -Foul Odor after Cleansing No No No -Bioengineered Tissue No No No -Bleeding Controlled with Pressure Pressure Pressure -Treatment Response Procedure Procedure Procedure Tolerated Well Tolerated Well Tolerated Well Pain Scale: 0-10 Numeric Is Patient Pain Free? Yes Yes Yes Wound debrided: #1 Right ischial area. Laterality: Right Wound Grade/Stage: IV. Type of Debridement: Excisional debridement Anesthesia Used: 4% Lidocaine Solution Depth: Down to and including healthy tissue, in the subcutaneous layer, to muscle, to bone - bone is partially exposed but not debrided. Percentage of wound debrided: 100 Instrument Used: 7mm curette Tissue Removed: subcutaneous tissue and muscle. Severity: Fat Layer Exposed - muscle is exposed. bone is partially exposed but not debrided. 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 2. Late effect radiation right gluteal/ischial area. 3. Osteomyelitis. 4. History of anal CA treated with chemotherapy and radiation therapy. 5. MRSA. 6. 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 Plan: Continue VAC. The Vancomycin and Zosyn has been completed. Continue the Diflucan. Now that he is discharged from the [facility], will set him up for HBO treatments for soft tissue radionecrosis and osteomyelitis. Awaiting HBO approval. This is in preparation for wound closure with a muscle flap. After the muscle flap, he will spend 6 weeks on bedrest. After which I want to continue the HBO treatments. He takes nutritional supplementation with protein to help the healing process. He has acute osteomyelitis and will need additional partial ostectomy before a myocutaneous flap is done. Followup one week.
[2018-01-03 12:09] VITALS: BP 114/75; PULSE 80; RESP 20; TEMP 36.2
[2018-01-04 14:49] VITALS: BP 142/74; BP 150/83; PULSE 72; PULSE 78; RESP 16; RESP 18; TEMP -6.6; TEMP 20; TEMP 36.4
--- NOTE | 2018-01-04 18:02 | HBO.PN.PCM_ITS ---
History of Present Illness Date of Service: 01/04/18 Presenting Chief Complaint: Nonhealing radiation pressure ulcer, abscess ulcer right gluteal/ischial area, Stage IV, with 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 BRYN TROTTER is a 62 year old currently undergoing hyperbaric oxygen therapy for soft tissue radionecrosis and osteomyelitis in preparation for wound closure with muscle flaps. Progress:Today's session represents the 1st such session of hyperbaric oxygen therapy. The patient appears to be tolerating without problems. Tolerance of hyperbaric oxygen therapy: Hyperbaric oxygen therapy was administered as per the facility's protocol. The patient tolerated hyperbaric oxygen therapy well, without complaints or complications. Upon emergence from the hyperbaric chamber, the patient's vital signs remained stable. 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, stage 4 (Chronic) Anal cancer (Chronic) Hepatitis C carrier (Chronic) COPD (chronic obstructive pulmonary disease) (Chronic) Anxiety and depression (Chronic) HTN (hypertension) (Chronic) HLD (hyperlipidemia) (Chronic) GERD (gastroesophageal reflux disease) (Chronic) PAD (peripheral artery disease) (Chronic) Allergies/Adverse Reactions: Allergies povidone-iodine [From Betadine] Allergy (Verified 10/17/17 07:25) Hives Mqkefec-Ner-Ele Reductase Inhibitor Adverse Reaction (Verified 10/17/17 07:25) MESSED MY LIVER UP adhesive tape Allergy (Uncoded 10/17/17 07:25) Itching/rash Home Medications: Ambulatory Orders Medication Instructions Recorded Aspirin [Aspirin, Baby] 81 mg PO DAILY@0800 03/22/16 Escitalopram Oxalate [Lexapro] 10 mg PO QHS 03/22/16 Ezetimibe [Zetia] 10 mg PO QHS 03/22/16 Fluticasone 0.05% [Flonase Nasal 2 spray NASAL BID 03/22/16 [place]] Multivitamin [Multiple Vitamins] 1 each PO DAILY 03/22/16 Omeprazole [Prilosec] 40 mg PO QHS 03/22/16 buPROPion XL [Wellbutrin Xl] 300 mg PO QHS 03/22/16 busPIRone [Buspar] 5 mg PO TID 03/22/16 Tiotropium [place] [Spiriva 2 puff INHALATION DAILY 10/20/16 Respimat] Cholecalciferol (Vitamin D3) 1,000 unit PO DAILY 12/09/16 [Vitamin D3] Tizanidine HCl [Zanaflex] 4 mg PO Q6H PRN PRN 12/27/16 Acetaminophen [Tylenol Tablet] 650 mg PO Q6H PRN PRN tablet 01/13/17 Ibuprofen [Motrin] 800 mg PO TID 06/06/17 Triamterene 37.5MG/Hctz 25MG 0.5 cap PO DAILY 06/06/17 [Dyazide (G)] Testosterone [Androderm 2mg/24 hr] 1 each TD DAILY 06/08/17 DiphenhydrAMINE [Benadryl] 25 mg PO Q6H PRN capsule 06/14/17 Ibuprofen [Motrin] 800 mg PO Q8H PRN PRN tablet 06/14/17 Loperamide [Imodium] 2 mg PO Q4H PRN PRN capsule 06/14/17 Shaina [Ultra-Light Rollator] 1 shaina .QDAILY 180 Days #1 ea 08/28/17 Docusate Sodium [Colace] 100 mg PO PRN PRN 10/16/17 Metoprolol Tartrate 25 mg PO BID 10/16/17 Nutritional Supplement [Chuy - 1 packet PO BIDCM 10/16/17 [place]] Vancomycin IV 1,250 mg IV Q8H 40 Days #120 vial 10/18/17 Diazepam [Valium] 5 mg PO 4X/DAY PRN PRN #30 tab 10/20/17 Ensure Clear 120 ml PO TIDCM liquid 10/20/17 Gabapentin [Neurontin] 800 mg PO TIDCM #90 tab 10/20/17 Hydrochlorothiazide 12.5 mg PO DAILY capsule 10/20/17 Ibuprofen [Motrin] 800 mg PO Q8H PRN PRN tablet 10/20/17 Iron Polysaccharide Complex 150 mg PO DAILYCM capsule 10/20/17 [Ferrex 150] Oxycodone HCl/Acetaminophen 1 - 2 tab PO 4X/DAY PRN PRN 5 Days 10/20/17 [Percocet 5-325] #40 tab Piperacil/Tazobactam [Zosyn] 3.375 gm IV Q8 40 Days #120 ml 10/20/17 proMETHazine tablet [Phenergan 25 mg PO Q4H PRN PRN tablet 10/20/17 tablet] Maternal Family History: No pertinent history Paternal Family History: No pertinent history Smoking Status: Former smoker Physical Exam Vital Signs Temp Pulse Resp BP 20 F L 78 18 150/83 H 01/04/18 14:49 01/04/18 14:49 01/04/18 14:49 01/04/18 14:49 General: Alert, Oriented x3, Cooperative, No apparent distress HEENT: Atraumatic, PERRLA Lungs: Clear to auscultation, Normal air movement, No rhonchi, No wheeze, No rales Cardiovascular: Regular rate, Regular Rhythm, Normal S1, Normal S2 Psych/Mental Status: Normal Affect, Appropriate, Alert and oriented to time, place, person, mood and affect Assessment/Plan Active Problems Methicillin resistant Staphylococcus aureus infection (Acute) Personal history of Methicillin resistant Staphylococcus aureus infection (Chronic) Acute osteomyelitis of right pelvic region (Acute) 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
[2018-01-05 10:55] VITALS: BP 114/75; PULSE 80; RESP 20; TEMP 36.2
[2018-01-08 10:02] VITALS: BP 140/61; PULSE 93; RESP 20; TEMP 36.6
--- NOTE | 2018-01-08 22:27 | PN.PCM_ITS ---
Type of Wound Date of Service: 01/08/18 Chief Complaint: Nonhealing radiation pressure ulcer, abscess ulcer right gluteal/ischial area, Stage IV, with 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 History of Wound: Surgery 10/17/17 - Excision radiation pressure sore abscess ul cer right ischial area, Stage IV, with partial ostectomy for osteomyelitis. Wound care - VAC. Operative culture - Soft tissue - MRSA, Enterobacter cloacae, Corynebacterium striatum. Bone - MRSA and Genna albicans. He was placed on Vancomycin and Zosyn and has finished them. He was placed on Diflucan and will continue it. Pathology - acute osteomyelitis. Prealbumin from 10/18/17 was 20.0. Encourage nutritional supplementation with protein to help the healing process. Today he denies fever. His appetite is good. He has started HBO treatments for his soft tissue radionecrosis and osteomyelitis in preparation for wound closure with muscle flaps. Progress of Wound: Slightly improved. - Physical Exam Vital Signs Temp Pulse Resp BP 97.8 F 93 20 H 140/61 H 01/08/18 10:02 01/08/18 10:02 01/08/18 10:02 01/08/18 10:02 Wound Measurements and Assessment WC - Nurse 1 - General Ulcer Measurement Start: 12/11/17 12:16 Freq: Status: Active Protocol: Activity Type Activity Date Activity User E-Sign Co-Sign Detail Recorded Client Recorded Date Recorded By Document 01/08/18 10:02 DL [id number] 01/08/18 10:10 DL 01/08/18 10:02 Wound Center Nurse 1 [Ulcer Assessment] #1 R Ischial -Current Size (cm) - Length 7.8 -Current Size (cm) - Width 4.4 -Current Size (cm) - Depth 3 -Total Square Cm 34.32 -Photo Taken No -Exudate Amt Medium (34-66%) -Exudate Type Serosanguineous -Wound Margin Distinct, Outline Attached -Granulation Amt Medium (34-66%) -Granulation Quality [place] -Necrosis Amt Medium (34-66%) -Necrotic Tissue Type Adherent Slough -Texture (Nathalie-wound Skin Appearance) Excoriation Scarring -Moisture (Nathalie-wound Skin Appearance Dry/Scaly ) -Color (Nathalie-wound Skin Appearance) Rubor -Temperature (Nathalie-wound Skin No Abnormality Appearance) (Pt Warm) -Tenderness on Palpation (Nathalie-wound No Skin Appearance) -Ulcer Cleansing Wound Cleanser -Foul Odor after Cleansing No -Anesthetic Used 4% Lidocaine Solution - Nurse 2 - General Ulcer CM Notes Start: 12/11/17 12:16 Freq: Status: Active Protocol: Activity Type Activity Date Activity User E-Sign Co-Sign Detail Recorded Client Recorded Date Recorded By Document 01/08/18 11:14 [id number] 01/08/18 11:15 01/08/18 11:14 Wound Center Nurse 2 [Procedure/Treatment] -Time 11:14 -Correct Patient Yes -Correct Side, Site, Position Yes -Correct Procedure Yes -Procedure Performed Yes -Type of Procedure Debridement -Clinical Debridement Muscle -Post Debridement Size (cm) - Length 7.8 -Post Debridement Size (cm) - Width 4.5 -Post Debridement Size (cm) - Depth 3.0 -Total Square Cm 35.10 -Wound/Ulcer Outcome Not Healed -Ulcer Cleansing Rinsed/ Irrigated with Saline -Foul Odor after Cleansing No -Bioengineered Tissue No -Bleeding Controlled with Pressure -Treatment Response Procedure Tolerated Well [See Physician Procedure note for Specifics] Pain Scale: 0-10 Numeric [Pain] -Is Patient Pain Free? Yes Debridement Note Post-Debridement Measurements/Treatment - Nurse 2 - General Ulcer CM Notes Start: 12/11/17 12:16 Freq: Status: Active Protocol: Activity Type Activity Date Activity User E-Sign Co-Sign Detail Recorded Client Recorded Date Recorded By Document 12/18/17 14:07 [id number] 12/18/17 14:08 Document 12/25/17 08:27 [id number] 12/25/17 08:32 Document 01/01/18 10:54 [id number] 01/01/18 10:55 Document 01/08/18 11:14 [id number] 01/08/18 11:15 12/18/17 12/25/17 01/01/18 14:07 08:27 10:54 Wound Center Nurse 2 #1 R Ischial -Time 14:08 08:28 10:54 -Correct Patient Yes Yes Yes -Correct Side, Site, Position Yes Yes Yes -Correct Procedure Yes Yes Yes -Procedure Performed Yes Yes Yes -Type of Procedure Debridement Debridement Debridement -Clinical Debridement Muscle Bone Muscle -Post Debridement Size (cm) - Length 8.1 8.3 9.1 -Post Debridement Size (cm) - Width 4.8 4.6 5 -Post Debridement Size (cm) - Depth 2.8 3.2 3.1 -Total Square Cm 38.88 38.18 45.5 -Wound/Ulcer Outcome Not Healed Not Healed Not Healed -Ulcer Cleansing Rinsed/ Rinsed/ Rinsed/ Irrigated with Irrigated with Irrigated with Saline Saline Saline -Foul Odor after Cleansing No No No -Bioengineered Tissue No No No -Bleeding Controlled with Pressure Pressure Pressure -Treatment Response Procedure Procedure Procedure Tolerated Well Tolerated Well Tolerated Well Pain Scale: 0-10 Numeric Is Patient Pain Free? Yes Yes Yes 01/08/18 11:14 Wound Center Nurse 2 #1 R Ischial -Time 11:14 -Correct Patient Yes -Correct Side, Site, Position Yes -Correct Procedure Yes -Procedure Performed Yes -Type of Procedure Debridement -Clinical Debridement Muscle -Post Debridement Size (cm) - Length 7.8 -Post Debridement Size (cm) - Width 4.5 -Post Debridement Size (cm) - Depth 3.0 -Total Square Cm 35.10 -Wound/Ulcer Outcome Not Healed -Ulcer Cleansing Rinsed/ Irrigated with Saline -Foul Odor after Cleansing No -Bioengineered Tissue No -Bleeding Controlled with Pressure -Treatment Response Procedure Tolerated Well Pain Scale: 0-10 Numeric Is Patient Pain Free? Yes Wound debrided: #1 Right ischial area. Laterality: Right Wound Grade/Stage: IV. Type of Debridement: Excisional debridement Anesthesia Used: 4% Lidocaine Solution Depth: Down to and including healthy tissue, in the subcutaneous layer, to muscle, to bone - bone is partially exposed but not debrided. Percentage of wound debrided: 100 Instrument Used: 7mm curette Tissue Removed: subcutaneous tissue and muscle. Severity: Fat Layer Exposed - muscle is exposed. bone is partially exposed but not debrided. Amount of bleeding with debridement: Mild Bleeding Controlled with: Pressure Patient tolerated procedure well Assessment/Plan Assessment: 1. 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 2. Late effect radiation right gluteal/ischial area. 3. Osteomyelitis. 4. History of anal CA treated with chemotherapy and radiation therapy. 5. MRSA. 6. s/p excision radiation pressure sore abscess ulcer right ischial area, Stage IV, with partial ostectomy for osteomyelitis Plan: Continue VAC. The Vancomycin and Zosyn have been completed. Continue the Diflucan. He has started HBO treatments for soft tissue radionecrosis and osteomyelitis. This is in preparation for wound closure with a muscle flap. After the muscle flap, he will spend 6 weeks on bedrest. After which I want to continue the HBO treatments. His Prealbumin from 10/18/17 was 20.0. He takes nutritional supplementation with protein to help the healing process. He has acute osteomyelitis and will need additional partial ostectomy before a myocutaneous flap is done. Followup one week to see [facility]oke Nurse Practitioner.
[2018-01-10 11:01] VITALS: RESP 18; TEMP 36.3
== END 2018-01-10 23:59 ==
LOC: WC 10:30
PROVIDERS: Family Provider Internal Medicine; PCP Internal Medicine; Referring Provider Surgery; Visit Provider Surgery
DX: L59.8 Other specified disorders of the skin and subcutaneous tissue related to radiation (principal); Y84.2 Radiological procedure and radiotherapy as the cause of abnormal reaction of the patient, or of later complication, without mention of misadventure at the time of the procedure; L89.214 Pressure ulcer of right hip, stage 4; Z85.048 Personal history of other malignant neoplasm of rectum, rectosigmoid junction, and anus; J44.9 Chronic obstructive pulmonary disease, unspecified; Z86.14 Personal history of Methicillin resistant Staphylococcus aureus infection; I73.9 Peripheral vascular disease, unspecified; K21.9 Gastro-esophageal reflux disease without esophagitis; E78.5 Hyperlipidemia, unspecified; I10 Essential (primary) hypertension; B18.2 Chronic viral hepatitis C; Z79.899 Other long term (current) drug therapy; F41.9 Anxiety disorder, unspecified; F32.9 Major depressive disorder, single episode, unspecified; Z79.82 Long term (current) use of aspirin; Z79.51 Long term (current) use of inhaled steroids; Z87.891 Personal history of nicotine dependence; M86.18 Other acute osteomyelitis, other site
CPT/HCPCS: 11043; 11044; 11046; 11047; 97605; 97606; 99183; 99211; 99212; G0277; G0463

== ENCOUNTER 2018-01-19 13:48 | Observation (INO) | payer MEDICAID, SELFPAY ==
[2018-01-19 13:50] VITALS: BP 154/77; PULSE 76; RESP 17; TEMP 37.2; O2SAT 96; BMI 26.6
--- NOTE | 2018-01-19 14:14 | RAD_ITS ---
STUDY: X-RAY - LEFT ELBOW REASON FOR EXAM: Male, 62 years old. Pain following injury. TECHNIQUE: 3 view(s) of the elbow. COMPARISON: None. FINDINGS: Normal visualized humerus, radius and ulna. Normal radiocapitellar and ulnotrochlear articulations. Soft tissue swelling overlying the olecranon process of the proximal ulna. Tiny bony densities are seen arising from the olecranon process. This may represent either an avulsion fracture or calcific bursitis. No joint effusion is seen. RAD/Elbow min 3 Views IMPRESSION: Soft tissue swelling is seen overlying the olecranon process of the proximal ulna with a small bony densities as described. This may represent either avulsion fracture or calcific bursitis. Electronically Signed: Aayush Ibarra MD at 15:06 EST Tel [phone], Service support ,
--- NOTE | 2018-01-19 15:36 | ED.RN ---
RECEIVED CALL FROM WOUND CENTER STATING PTS MOM IS NOT ABLE TO CARE FOR HIM AND SHE IS WORRIED ABOUT HIS CARE AT HOME. PT HAS ELBOW PAIN AND MAY NOT BE ABLE TO USE HIS WALKER WITHOUT FALLING. DR. CASTAÑEDA TO BEDSIDE FOR RE-EVAL. SOCIAL WORK SERVICES INVOLVED. INPATIENT WOUND CENTER RN IS NOT ABLE TO SEE PATIENT, PT TO GO TO WOUND CENTER AND THEN RETURN FOR ADMISSION.
--- NOTE | 2018-01-19 16:08 | CM.ED ---
Social Work Note Updated by Dr. Taylor. Pt came in for a wound, and needs a wound vac. Will be transported to the wound healing center and brought back to ED. Pt lives with his mother who is 82 y/o and called in stating she cannot take care of him. Met with pt who reports that he was in [facility] in [place] and was discharged home in July. He had C, but they stopped accepted [facility]. Reports that he now has [employer]. Uses a rollator at baseline and has a shower chair, grab bars and toilet riser at home. Reports to have been feeling weaker and believes he will need short term SNF placement for rehabilitation. Due to having a managed Medicaid plan he will require hospitalization under observation status while a pre-cert is awaited. Physician and pt updated. Pt provided with in network facilities to choose from. PLAN: SNF pending acceptance and pre-cert. Celeste Zarco, INSURANCE CODER, [place]
[2018-01-19 16:59] LABS: Absolute Lymphocyte Count 1.79 X10^3/ul (0.83-4.51); Absolute Neutrophil Count 4.6 X10^3/uL (2.0-7.7); Basophil# 0.03 X10^3/uL; Basophil% 0.4 % (0-1); Eosinophil# 0.66 X10^3/uL; Eosinophils% 8.4 % (0-5); Hematocrit 32.6 % (40-54); Hemoglobin 10.3 g/dl (13.0-16.5); Lymphocyte # 1.79 X10^3/ul (4.0); Lymphocyte % 22.7 % (19-41); Mean Corp Hgb Conc 31.6 g/gl (32-36); Mean Corpuscular Hgb 26.9 pg (27.0-32.0); Mean Corpuscular Volume 85.1 fL (80-94); Mean Platelet Vol. 7.6 fl (6.2-12.0); Monocyte# 0.81 X10^3/uL; Monocyte% 10.3 % (0-10); Neutrophil # 4.55 X10^3/uL (2.7-7.7); Neutrophil % 57.7 % (47-70); Platelet Count 440 K/mm3 (150-450); RBC Distribution Width CV 15.6 % (11.6-14.6); RBC Distribution Width SD 48.2 fl (35.1-43.9); Red Blood Count 3.83 M/mm3 (4.6-6.2); White Blood Count 7.9 K/mm3 (4.4-11.0)
[2018-01-19 17:12] LABS: Anion Gap 11 (5-15); BUN 21 mg/dL (7-18); BUN/Creat Ratio 33.8 RATIO (10-20); Calcium,Total 9.3 mg/dL (8.5-10.1); Chloride 92 mmol/L (98-107); Creatinine, Serum 0.62 mg/dL (0.70-1.30); EST Glomerular Filtration Rate 139 mL/min (>60); Est Glom Filt Rate - Afr Amer 168 mL/min (>60); Estimated Creatinine Clearance 114.02 ml/min; Glucose 94 mg/dL (74-106); Potassium 4.3 mmol/L (3.5-5.1); Sodium Level 132 mmol/L (136-145)
--- NOTE | 2018-01-19 17:21 | HP.PCM_ITS ---
History of Present Illness Date of Admission: 01/19/18 Chief Complaint: Weakness. The patient is a 62 y/o M w/ PMHx: Anxiety and depression, GERD, HLD, HTN, PAD, Anal CA s/p resection and radiation therapy, Chronic COPD, Hepatitis C carrier, Chronic Hyponatremia who presents from home to the [facility] ED on 01/19/18 with near fall on day of ED presentation while attempting to go to his Wound Care routine visit with onset L proximal to elbow discomfort w/ strain prompting ED evaluation with additionally noted BL LE generalized weakness, ongoing w/ usage chronically of wheeled walker noting he fell in the shower 1-2 weeks prior also. In the ED patient work-up included T 99, heart rate 76, BP 154/77, respiratory rate 17, 96% on room air, CBC pending upon evaluation, BMP with sodium 132, chloride 92, BUN/creatinine 21/0.62, left elbow plain film with soft tissue swelling overlying the olecranon process of the proximal ulna with a small possible bony bony density likely representing either an avulsion fracture or calcific bursitis. Given patient inability to care for self at home living with his mother secondary to worsened weakness, decision for admission for assistance with SNF transition. Labs pending as noted upon admission. 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, stage 4 (Chronic) Anal cancer (Chronic) Hepatitis C carrier (Chronic) COPD (chronic obstructive pulmonary disease) (Chronic) Anxiety and depression (Chronic) HTN (hypertension) (Chronic) HLD (hyperlipidemia) (Chronic) GERD (gastroesophageal reflux disease) (Chronic) PAD (peripheral artery disease) (Chronic) Allergies povidone-iodine [From Betadine] Allergy (Verified 01/19/18 13:50) Hives Fffrtis-Pjx-Wkf Reductase Inhibitor Adverse Reaction (Verified 01/19/18 13:50) MESSED MY LIVER UP adhesive tape Allergy (Uncoded 01/19/18 13:50) Itching/rash Home Medications: Ambulatory Orders Medication Instructions Recorded Aspirin [Aspirin, Baby] 81 mg PO DAILY@0800 03/22/16 Escitalopram Oxalate [Lexapro] 10 mg PO QHS 03/22/16 Ezetimibe [Zetia] 10 mg PO QHS 03/22/16 Fluticasone 0.05% [Flonase Nasal 2 spray NASAL BID 03/22/16 [place]] Multivitamin [Multiple Vitamins] 1 each PO DAILY 03/22/16 Omeprazole [Prilosec] 40 mg PO QHS 03/22/16 buPROPion XL [Wellbutrin Xl] 300 mg PO QHS 03/22/16 busPIRone [Buspar] 5 mg PO TID 03/22/16 Tiotropium [place] [Spiriva 2 puff INHALATION DAILY 10/20/16 Respimat] Cholecalciferol (Vitamin D3) 1,000 unit PO DAILY 12/09/16 [Vitamin D3] Tizanidine HCl [Zanaflex] 4 mg PO Q6H PRN PRN 12/27/16 Testosterone [Androderm 2mg/24 hr] 1 each TD DAILY 06/08/17 DiphenhydrAMINE [Benadryl] 25 mg PO Q6H PRN capsule 06/14/17 Loperamide [Imodium] 2 mg PO Q4H PRN PRN capsule 06/14/17 Docusate Sodium [Colace] 100 mg PO PRN PRN 10/16/17 Nutritional Supplement [Chuy - 1 packet PO BIDCM 10/16/17 [place] FLAVOR] Diazepam [Valium] 5 mg PO 4X/DAY PRN PRN #30 tab 10/20/17 Hydrochlorothiazide 12.5 mg PO DAILY capsule 10/20/17 Iron Polysaccharide Complex 150 mg PO DAILYCM capsule 10/20/17 [Ferrex 150] Oxycodone HCl/Acetaminophen 1 - 2 tab PO 4X/DAY PRN PRN 5 Days 10/20/17 [Percocet 5-325] #40 tab proMETHazine tablet [Phenergan 25 mg PO Q4H PRN PRN tablet 10/20/17 tablet] Fluconazole [Diflucan] 400 mg PO DAILY 01/19/18 Gabapentin [Neurontin] 800 mg PO 4X/DAY 01/19/18 Ibuprofen [Ibu] 800 mg PO TID 01/19/18 Metoprolol Tartrate [Lopressor 50 ng PO BID 01/19/18 (beta curt)] Surgical History: total hip arthroplasty - left, total knee arthroplasty, - - 12/30/16 Surgical preparation right gluteal/ischial area with excision radiation pressure sore abscess wound and partial ostectomy for osteomyelitis (52.5 cm2), 06/08/17 Excision radiation pressure sore abscess ulcer right ischial area, Stage IV, with partial ostectomy for osteomyelitis, 10/17/17 Excision radiation pressure sore abscess ulcer right ischial area, Stage IV, with partial ostectomy for osteomyelitis. Psychiatric History: Anxiety, Depression Lives: With Family Smoking Status: Former smoker Tobacco Use: Non-smoker Alcohol: None Drugs: None - *Family History Maternal History Items: - - Denies any marked maternal or paternal family history including DM, HTN, HD. Paternal History Items: - - Denies any marked maternal or paternal family history including DM, HTN, HD. Review of Systems Constitutional: Reports: Weakness, Fatigue. Denies: Anorexia, Chills, Fever, Malaise, Weight Change HEENT: Denies: Head Aches, Sinus Congestion, Sinus Drainage Cardiovascular: Denies: Chest Pain, Palpitations Respiratory: Denies: Cough, Shortness of breath at rest, Sputum production Gastrointestinal: Denies: Abdominal Pain, Nausea, Vomiting Genitourinary: Denies: Dysuria Musculoskeletal: Reports: Arm Pain, Joint Pain, Joint stiffness, Joint swelling, Joint Tenderness Skin: Reports: Skin Changes, Wounds. Denies: Rash Neurological: Reports: - - Worsened BL LE weakness.. Denies: Focal weakness, Numbness, Tingling Psychiatric: Reports: Anxiety, Depression. Denies: Homicidal Ideations, Suicidal Ideations Hematologic/ Lymphatic: Denies: Easy Bruising, Easy Bleeding VTE Information - Inpt Only VTE Present on Admission: No VTE Mechan Device Prophylaxis: SCD's VTE Pharm Prophylaxis ordered?: Yes Subjective: Seated upright in the ED bed, no complaints, feeling well aside generalized weakness he notes, unable to care for self at home, was in SNF prior. Objective: Physical Examination: General: awake, alert, oriented x 3 and cooperative, seated upright in the ED bed in no apparent distress. Skin: normal color, turgor, no icterus, cyanosis except R ischial/buttock wound w/ VAC in place, recent change at [facility]. HEENT: AT/NC, EOMI, PERRLA, MMM, no carotid bruits or JVD noted. Lungs: Diminished BS BL bases, moderate effort, no rales, ronchi or wheezing. Heart: regular rate and rhythm; no gallop, rub audible. Abdomen: soft, NTTP, ND, normal BS, no HSM. Extremities: no cyanosis, clubbing, or edema. Neurological: patient awake, alert, oriented x 3; cognitive function intact; pupils equally reactive to light and accomodation; cranial nerves II-XII grossly normal, moving all 4 extremities but limited BL LE secondary to acute on chronic weakness, no focal deficits, strength moderately globally decreased. Psychiatric: affect appears normal, no acute evidence of depressive or anxiety feelings. - Physical Exam Vital Signs Temp Pulse Resp BP Pulse Ox 99.0 F 76 17 154/77 H 96 01/19/18 13:50 01/19/18 13:50 01/19/18 13:50 01/19/18 13:50 01/19/18 13:50 Oxygen Delivery Method Room Air Weight: 170 lb Body Mass Index (BMI) 26.6 Laboratory Tests Past 24 Hrs 01/19/18 01/19/18 16:43 16:43 WBC Pending RBC Pending Hgb Pending Hct Pending MCV Pending MCH Pending MCHC Pending RDW Pending RDW Differential Pending Plt Count Pending Neut % (Auto) Pending Absolute Neuts (auto) Pending Total Counted Pending Sodium 132 L Potassium 4.3 Chloride 92 L Carbon Dioxide 29.0 Anion Gap 11 BUN 21 H Creatinine 0.62 L Estim Creat Clear Calc 114.02 Est GFR (MDRD) Af Amer 168 Est GFR (MDRD) Non-Af 139 BUN/Creatinine Ratio 33.8 H Glucose 94 Calcium 9.3 Assessment/Plan All Active Problems Methicillin resistant Staphylococcus aureus infection (Acute) Acute osteomyelitis of right pelvic region (Acute) Soft tissue radionecrosis (Acute) Cellulitis and abscess of buttock (Acute) Hyponatremia (Acute) Abscess, gluteal, right (Acute) The patient is a 62 y/o M w/ PMHx: Anxiety and depression, GERD, HLD, HTN, PAD, Anal CA s/p resection and radiation therapy, Chronic COPD, Hepatitis C carrier, Chronic Hyponatremia who presents from home to the [facility] ED on 01/19/18 with near fall on day of ED presentation while attempting to go to his Wound Care routine visit with onset L proximal to elbow discomfort w/ strain prompting ED evaluation with additionally noted BL LE generalized weakness, ongoing w/ usage chronically of wheeled walker noting he fell in the shower 1-2 weeks prior also. (1) Generalized Weakness, Progressive on Chronic w/ Recent Increased Falls: ED patient work-up included T 99, heart rate 76, BP 154/77, respiratory rate 17, 96% on room air, CBC pending upon evaluation, BMP with sodium 132, chloride 92, BUN/creatinine 21/0.62, left elbow plain film with soft tissue swelling overlying the olecranon process of the proximal ulna with a small possible bony bony density likely representing either an avulsion fracture or calcific bursitis. Will admit to [facility], will maintain on fall precautions, will consult PT, OT, CM for discharge planning, will consult Orthopedic surgery given ongoing discomfort to the L elbow from recent fall w/ possible fracture w/ NWB status to [facility] in the interim. (2) Nonhealing radiation pressure ulcer, abscess ulcer right gluteal/ischial area, Stage IV: Patient w/ serial operative interventions per Dr. Mesa, last intervention 10/17/17 w/ Excision radiation pressure sore abscess ulcer right ischial area, Stage IV, with partial ostectomy for osteomyelitis w/ OR cultures w/ MRSA, Enterobacter cloacae, Corynebacterium striatum and Bone Cx w/ MRSA and Genna albicans, completed treatment w/ Vancomycin and Zosyn and 18 on oral Diflucan. VAC change in Wound Care center 01/19/18 following initial ED evaluation, continue wound RN evaluations, VAC change MWF, does not appear infected. Continue Chuy supplementation. (3) Chronic Hyponatremia: Suspected secondary to his medications (SSRI and HCTZ), admission Na 132, stable compared to baseline, trend. (4) Hypertension: Continue home metoprolol regimen, PRN hydralazine. (5) Hyperlipidemia: Continue home Zetia regimen. (6) Chronic COPD: ATC duonebs, PRN albuterol, HOB, IS parameters. (7) IBS: Maintain on loperamide, Bentyl home regimen. (8) Chronic Back Pain, DJD: Continue Percocet, gabapentin regimen, IBU pain regimen. (9) Anxiety and Depression: Maintain on home buproprion, lexapro, buspar, Valium. (10) Fe Deficiency Anemia: Admission Hgb pending, continue Fe supplementation. (11) GERD: Continue home PPI. (12) DVT Prophylaxis: SCDs, lovenox. Code Visit OBSV E&M: 36738 Initial observation care L3
--- NOTE | 2018-01-19 17:31 | ED.VISSUMM ---
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 bird. Patient reports that since being [facility] the [facility] in states that he was supposed to get physical therapy at home, but the agency did not take his insurance and he is not had physical therapy since that time. Reports that it has gotten to the point where he is having a great deal of difficulty walking. He lives with his 82-year-old mother. Patient reports that on the way to the emergency department he grabbed onto a railing on a ramp and felt a pop in his left elbow. The abrupt onset of a dull aching pain that is 10 out of 10 at worst and 6 out of 10 currently. Is worsened by pulling or pushing his left arm. Taking Percocet without relief. He is left-hand dominant. He denies any other injuries. Physical Examination: Vitals: Stable. Afebrile. General: Well-nourished and well-developed. Head: Normocephalic atraumatic. Neck: Supple, no lymphadenopathy. No JVD. Nontender. Cardiovascular: Regular rate and rhythm. No murmurs. Respiratory: No respiratory distress. Clear to auscultation bilaterally. Abdominal: Soft, nontender, nondistended, normal bowel sounds. No guarding, rebound, or peritoneal signs. Back: Nontender. Extremities: Moderate tenderness palpation over the left olecranon process. There is no erythema or warmth. He is neurovascular intact distally, no edema. Skin: Large left ischial ulcer with granulation tissue. Minimal erythema. No odor or drainage. Neurologic: Alert and oriented ?3. Cranial nerves II through XII are intact. Normal strength and sensation. Psych: Normal affect. Test Results: CBC is remarkable for an H&H of 10.3 and 32.6, monocytes of 10, eosinophils of 8. Chem-7 is more for sodium 132, chloride of 92, BUN 21, creatinine 0.62. Clinical Impression(s) from Imaging Studies Elbow X-Ray 01/19/18 14:14 IMPRESSION: Soft tissue swelling is seen overlying the olecranon process of the proximal ulna with a small bony densities as described. This may represent either avulsion fracture or calcific bursitis. Electronically Signed: Aayush Ibarra MD at 15:06 EST Tel [phone], Service support , Emergency Department Course and Treatment: Patient was treated with oxycodone for his pain. I discussed the findings of his elbow x-ray with him. He reports that he is seeing Dr. Aguilar for left olecranon bursitis. I suspect that this is actually calcific bursitis that is causing his pain. Patient was sent over to the wound center to have his wound VAC placed as the wound nurse is not in the hospital at this time. When he returned he was resting comfortably. Treatment Plan: The patient was discussed with Dr. Mcguire. He was also discussed with case management. He will be admitted to the hospital for further evaluation and treatment. Disposition: Admitted in stable condition. Impression: 1. Left olecranon calcific bursitis. 2. Decubitus ulcer. 3. Generalized weakness. This note was generated with [employer] dictation software. It may contain incorrect words, spelling, and punctuation that were not noted in review of the chart prior to signing ED Disposition - Plan for ED Patient: Chief Complaint: Upper Extremity Injury Referrals: Winnie Gonzales MD [Primary Care Provider] -
--- NOTE | 2018-01-19 17:34 | ED.DCSUM_ITS ---
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 bird. Patient reports that [facility] states that he was supposed to get physical therapy at home, but the agency did not take his insurance and he is not had physical therapy since that time. Reports that it has gotten to the point where he is having a great deal of difficulty walking. He lives with his 82-year-old mother. Patient reports that on the way to the emergency department he grabbed onto a railing on a ramp and felt a pop in his left elbow. The abrupt onset of a dull aching pain that is 10 out of 10 at worst and 6 out of 10 currently. Is worsened by pulling or pushing his left arm. Taking Percocet without relief. He is left-hand dominant. He denies any other injuries. Physical Examination: Vitals: Stable. Afebrile. General: Well-nourished and well-developed. Head: Normocephalic atraumatic. Neck: Supple, no lymphadenopathy. No JVD. Nontender. Cardiovascular: Regular rate and rhythm. No murmurs. Respiratory: No respiratory distress. Clear to auscultation bilaterally. Abdominal: Soft, nontender, nondistended, normal bowel sounds. No guarding, rebound, or peritoneal signs. Back: Nontender. Extremities: Moderate tenderness palpation over the left olecranon process. There is no erythema or warmth. He is neurovascular intact distally, no edema. Skin: Large left ischial ulcer with granulation tissue. Minimal erythema. No odor or drainage. Neurologic: Alert and oriented ?3. Cranial nerves II through XII are intact. Normal strength and sensation. Psych: Normal affect. Test Results: CBC is remarkable for an H&H of 10.3 and 32.6, monocytes of 10, eosinophils of 8. Chem-7 is more for sodium 132, chloride of 92, BUN 21, creatinine 0.62. Clinical Impression(s) from Imaging Studies Elbow X-Ray 01/19/18 14:14 IMPRESSION: Soft tissue swelling is seen overlying the olecranon process of the proximal ulna with a small bony densities as described. This may represent either avulsion fracture or calcific bursitis. Electronically Signed: Aayush Ibarra MD at 15:06 EST Tel [phone], Service support , Emergency Department Course and Treatment: Patient was treated with oxycodone for his pain. I discussed the findings of his elbow x-ray with him. He reports that he is seeing Dr. Aguilar for left olecranon bursitis. I suspect that this is actually calcific bursitis that is causing his pain. Patient was sent over to the wound center to have his wound VAC placed as the wound nurse is not in the hospital at this time. When he returned he was resting comfortably. Treatment Plan: The patient was discussed with Dr. Mcguire. He was also discussed with case management. He will be admitted to the hospital for further evaluation and treatment. Disposition: Admitted in stable condition. Impression: 1. Left olecranon calcific bursitis. 2. Decubitus ulcer. 3. Generalized weakness. This note was generated with [employer] dictation software. It may contain incorrect words, spelling, and punctuation that were not noted in review of the chart prior to signing ED Disposition - Plan for ED Patient: Chief Complaint: Upper Extremity Injury Referrals: Winnie Gonzales MD [Primary Care Provider] -
[2018-01-19 17:54] LABS: POSITIVE COUNT NO; POSITIVE DIFFERENTIAL NO; POSITIVE MORPHOLOGY YES
[2018-01-19 17:55] LABS: Differential Indicated SCAN CRITERIA MET; Platelet Estimate ADEQUATE (ADEQ); Red Cell Morphology NORM C+C NORMAL (NORM C&C)
[2018-01-19] MEDS: oxyCODONE 5 MG Tablet 10 MG PO (18:09)
[2018-01-19 18:11] VITALS: BP 134/72; PULSE 78; RESP 16; TEMP 37.1; O2SAT 95
[2018-01-19 18:19] VITALS: BMI 26.6
[2018-01-19 18:55] VITALS: BMI 25.8
[2018-01-19 19:06] VITALS: BP 153/78; PULSE 75; RESP 16; TEMP 37.3; O2SAT 95
[2018-01-19 19:39] LABS: Magnesium 2.1 mg/dL (1.6-2.6)
[2018-01-19] MEDS: DiphenhydrAMINE 25 MG Capsule PO (19:59)
[2018-01-19] MEDS: Ezetimibe 10 MG Tablet PO (21:09)
[2018-01-19] MEDS: Gabapentin 800 MG Tablet PO (21:09)
[2018-01-19] MEDS: buPROPion (XL) 300 MG TABLET.XL PO (21:09)
[2018-01-19] MEDS: Pantoprazole Sodium 40 MG Tablet PO (21:09)
[2018-01-19] MEDS: Escitalopram Oxalate 10 MG Tablet PO (21:09)
[2018-01-19] MEDS: busPIRone 5 MG Tablet PO (21:09)
[2018-01-19] MEDS: Fluticasone 0.05% 1 SPRAY NASAL.SRY 2 SPRAY NASAL (22:09)
[2018-01-19 22:10] VITALS: BP 149/76; PULSE 80
[2018-01-19] MEDS: Metoprolol Tartrate 50 MG Tablet PO (22:10)
[2018-01-19] MEDS: oxyCODONE 5 MG Tablet PO (23:03)
[2018-01-19] MEDS: Ibuprofen 400 MG Tablet 800 MG PO (23:06)
[2018-01-20] VITALS (9 sets, daily range): BP systolic 108–147; BP diastolic 57–70; PULSE 66–98; RESP 16–18; TEMP 36.6–37.1; O2SAT 93–97
[2018-01-20] MEDS: DiphenhydrAMINE 25 MG Capsule PO ×3 (02:00→19:42)
--- NOTE | 2018-01-20 05:23 | NURSING ---
Patient admitted with home wound vac. Attempted x3 to remove wound vac to measure wounds. Patient refused all 3 times. Explained that wounds need to be measured and he stated that he does not want it removed if another is not immediately available to re-apply.
[2018-01-20] MEDS: busPIRone 5 MG Tablet PO ×3 (06:34→22:17)
[2018-01-20] MEDS: Ibuprofen 400 MG Tablet 800 MG PO ×3 (06:34→22:25)
[2018-01-20] MEDS: Ipratropium/Albuterol Sulfate 3 ML AMPUL.NEB INHALATION ×2 (07:12→19:18)
[2018-01-20 07:23] LABS: Absolute Lymphocyte Count 1.72 X10^3/ul (0.83-4.51); Absolute Neutrophil Count 2.5 X10^3/uL (2.0-7.7); Basophil# 0.01 X10^3/uL; Basophil% 0.2 % (0-1); Eosinophil# 0.59 X10^3/uL; Eosinophils% 10.3 % (0-5); Hematocrit 30.4 % (40-54); Hemoglobin 9.6 g/dl (13.0-16.5); Lymphocyte # 1.72 X10^3/ul (4.0); Lymphocyte % 30.1 % (19-41); Mean Corp Hgb Conc 31.6 g/gl (32-36); Mean Corpuscular Hgb 26.8 pg (27.0-32.0); Mean Corpuscular Volume 84.9 fL (80-94); Mean Platelet Vol. 7.2 fl (6.2-12.0); Monocyte% 15.8 % (0-10); Neutrophil # 2.47 X10^3/uL (2.7-7.7); Neutrophil % 43.2 % (47-70); Platelet Count 341 K/mm3 (150-450); RBC Distribution Width CV 15.7 % (11.6-14.6); RBC Distribution Width SD 48.7 fl (35.1-43.9); Red Blood Count 3.58 M/mm3 (4.6-6.2); White Blood Count 5.7 K/mm3 (4.4-11.0)
[2018-01-20 07:24] LABS: Differential Indicated SCAN CRITERIA MET; POSITIVE COUNT NO; POSITIVE DIFFERENTIAL NO; POSITIVE MORPHOLOGY YES
[2018-01-20 07:54] LABS: Anion Gap 8 (5-15); BUN 17 mg/dL (7-18); BUN/Creat Ratio 26.2 RATIO (10-20); Calcium,Total 8.8 mg/dL (8.5-10.1); Chloride 93 mmol/L (98-107); Creatinine, Serum 0.65 mg/dL (0.70-1.30); EST Glomerular Filtration Rate 132 mL/min (>60); Est Glom Filt Rate - Afr Amer 159 mL/min (>60); Estimated Creatinine Clearance 108.75 ml/min; Glucose 85 mg/dL (74-106); Potassium 4.1 mmol/L (3.5-5.1); Sodium Level 132 mmol/L (136-145)
[2018-01-20] MEDS: Aspirin 81 MG TAB.CHEW PO (08:41)
[2018-01-20] MEDS: Iron Polysaccharide Complex 150 MG CAPSULE PO (08:41)
[2018-01-20] MEDS: MethylPREDNISolone DosePak 4 MG BOX PO ×4 (08:42→22:20)
[2018-01-20] MEDS: Multivitamins,Therapeutic Tablet 1 TABLET PO (08:43)
[2018-01-20 09:14] LABS: Anisocytosis 1+; Atypical Lymphocyte 1+ %; Hypochromasia 1+
[2018-01-20] MEDS: hydroCHLOROthiazide 12.5mg 12.5 MG PO (09:50)
[2018-01-20] MEDS: Fluticasone 0.05% 1 SPRAY NASAL.SRY 2 SPRAY NASAL ×2 (09:50→22:18)
[2018-01-20] MEDS: Fluconazole 100 MG Tablet 400 MG PO (09:50)
[2018-01-20] MEDS: Enoxaparin 40 MG/0.4 ML Syringe SC (09:51)
[2018-01-20] MEDS: Gabapentin 800 MG Tablet PO ×4 (09:51→22:21)
[2018-01-20] MEDS: Metoprolol Tartrate 50 MG Tablet PO ×2 (09:51→22:21)
--- NOTE | 2018-01-20 10:20 | PCM.PN.HOSP ---
Subjective: Patient seen and examined. He was admitted with a complaint of a fall and resultant left elbow discomfort. He also is generalized weakness and states he fell in the shower about 1-2 weeks before admission. Left elbow x-ray shows soft tissue swelling possible small bony density likely represent an evulsion fracture or calcific bursitis. He has been managed for mechanical fall and is for placement. Vitals/I&O's: Vital Signs Temp Pulse Resp BP Pulse Ox 97.9 F 75 16 108/57 L 96 01/20/18 09:46 01/20/18 09:51 01/20/18 09:46 01/20/18 09:46 01/20/18 09:46 Oxygen Delivery Method Room Air Weight: 165 lb Body Mass Index (BMI) 25.8 Intake and Output for Last 24 Hours 01/18/18 01/19/18 01/20/18 23:59 23:59 23:59 Intake Total 480 / 480 240 / 240 Output Total 875 / 875 675 / 675 Balance -395 / -395 -435 / -435 General: Alert, Oriented x3, Cooperative, No apparent distress HEENT: Atraumatic, PERRLA, EOMI, Normocephalic Oral: Moist Mucosa Neck: Supple, No JVD, Negative Carotid Bruits Lungs: Clear to auscultation, Normal air movement, No rhonchi, No wheeze, No rales Cardiovascular: Regular rate, Regular Rhythm, Normal S1, Normal S2, No murmurs Abdomen: Bowel Sounds Present, Soft, Non Tender, Non-Distended, No Hepato-splenomegaly, Passing Flatus Extremities: No clubbing, No cyanosis, No edema, Capillary Refill Less than 3 Seconds Skin: - - wound vac in place over right large hip and buttock ulcer Musculoskeletal: No Tenderness to Palpation of Joints or Extremities Lymphatic: No Cervical, Supraclavicular, or Inguinal Adenopathy Neurological: Cranial nerves II-XII grossly intact Psych/Mental Status: Normal Affect, Appropriate, Alert and oriented to time, place, person, mood and affect Laboratory Results 01/19/18 16:43: WBC 7.9, RBC 3.83 L, Hgb 10.3 L, Hct 32.6 L, MCV 85.1, MCH 26.9 L, MCHC 31.6 L, RDW 15.6 H, RDW Differential 48.2 H, Plt Count 440, MPV 7.6, Immature Gran % (Auto) 0.500, Neut % (Auto) 57.7, Lymph % (Auto) 22.7, [place] % (Auto) 10.3 H, Eos % (Auto) 8.4 H, Baso % (Auto) 0.4, Absolute Neuts (auto) 4.6, Absolute Lymphs (auto) 1.79, Total Counted Not Reportable, Platelet Estimate ADEQUATE, RBC Morphology NORM C+C 01/19/18 16:43: Sodium 132 L, Potassium 4.3, Chloride 92 L, Carbon Dioxide 29.0, Anion Gap 11, BUN 21 H, Creatinine 0.62 L, Estim Creat Clear Calc 114.02, Est GFR (MDRD) Af Amer 168, Est GFR (MDRD) Non-Af 139, BUN/Creatinine Ratio 33.8 H, Glucose 94, Calcium 9.3 01/19/18 16:52: Magnesium 2.1 01/20/18 07:13: WBC 5.7, RBC 3.58 L, Hgb 9.6 L, Hct 30.4 L, MCV 84.9, MCH 26.8 L, MCHC 31.6 L, RDW 15.7 H, RDW Differential 48.7 H, Plt Count 341, MPV 7.2, Immature Gran % (Auto) 0.400, Neut % (Auto) 43.2 L, Lymph % (Auto) 30.1, [place] % (Auto) 15.8 H, Eos % (Auto) 10.3 H, Baso % (Auto) 0.2, Absolute Neuts (auto) 2.5, Absolute Lymphs (auto) 1.72, Total Counted Not Reportable, Atypical Lymphocytes 1+, Hypochromasia 1+, Anisocytosis 1+ 01/20/18 07:13: Sodium 132 L, Potassium 4.1, Chloride 93 L, Carbon Dioxide 31.0, Anion Gap 8, BUN 17, Creatinine 0.65 L, Estim Creat Clear Calc 108.75, Est GFR (MDRD) Af Amer 159, Est GFR (MDRD) Non-Af 132, BUN/Creatinine Ratio 26.2 H, Glucose 85, Calcium 8.8 Diagnostic Data Elbow X-Ray 01/19/18 14:14 IMPRESSION: Soft tissue swelling is seen overlying the olecranon process of the proximal ulna with a small bony densities as described. This may represent either avulsion fracture or calcific bursitis. Electronically Signed: Aayush Ibarra MD at 15:06 EST Tel [phone], Service support , Current Medications Al Hydroxide/Mg Hydroxide (Mylanta Ii) 30 ml PO Q6H PRN PRN PRN Reason: Gastric burning Albuterol Sulfate (Ventolin Aerosols) 2.5 mg INHALATION Q2H PRN PRN PRN Reason: dyspnea, wheezing Albuterol/Ipratropium (Duoneb) 3 ml INHALATION Q6HWA.RT [facility] Last Admin: 01/20/18 07:12 Dose: 3 ml Aspirin (Aspirin, Baby) 81 mg PO DAILY@0800 [facility] Last Admin: 01/20/18 08:41 Dose: 81 mg Bupropion HCl (Wellbutrin Xl) 300 mg PO QHS [facility] Last Admin: 01/19/18 21:09 Dose: 300 mg Buspirone HCl (Buspar) 5 mg PO TID [facility] Last Admin: 01/20/18 06:34 Dose: 5 mg Diazepam (Valium) 5 mg PO 4X/DAY PRN PRN PRN Reason: SPASMS Diphenhydramine HCl (Benadryl) 25 mg PO Q6H PRN PRN PRN Reason: ITCHING Last Admin: 01/20/18 02:00 Dose: 25 mg Docusate Sodium (Colace) 100 mg PO BID PRN PRN PRN Reason: Constipation Ezetimibe (Zetia) 10 mg PO QHS [facility] Last Admin: 01/19/18 21:09 Dose: 10 mg Enoxaparin Sodium (Lovenox) 40 mg SC DAILY@1000 [facility] Last Admin: 01/20/18 09:51 Dose: 40 mg Escitalopram Oxalate (Lexapro) 10 mg PO QHS [facility] Last Admin: 01/19/18 21:09 Dose: 10 mg Fluconazole (Diflucan) 400 mg PO DAILY [facility] Last Admin: 01/20/18 09:50 Dose: 400 mg Fluticasone Propionate (Flonase Nasal [place]) 2 spray NASAL BID [facility] Last Admin: 01/20/18 09:50 Dose: 2 spray Gabapentin (Neurontin) 800 mg PO 4X/DAY [facility] Last Admin: 01/20/18 09:51 Dose: 800 mg Hydrochlorothiazide (Hydrochlorothiazide) 12.5 mg PO DAILY [facility] Last Admin: 01/20/18 09:50 Dose: 12.5 mg Ibuprofen (Motrin) 800 mg PO Q8H [facility] Last Admin: 01/20/18 06:34 Dose: 800 mg Loperamide HCl (Imodium) 2 mg PO Q4H PRN PRN PRN Reason: Diarrhea Magnesium Hydroxide (Milk Of Magnesia) 30 ml PO DAILY PRN PRN PRN Reason: Constipation Methylprednisolone (Medrol Dosepak) 8 mg PO 0800 [facility]; Taper Stop: 01/25/18 08:59 Last Admin: 01/20/18 08:42 Dose: 8 mg Metoprolol Tartrate (Lopressor (Beta Joo)) 50 mg PO BID [facility] Last Admin: 01/20/18 09:51 Dose: 50 mg Multivitamins (Multivitamin) 1 tablet PO DAILY@0800 [facility] Last Admin: 01/20/18 08:43 Dose: 1 tablet Nutritional Formula (Chuy - [place] Flavor) [facility] Last Admin: 01/20/18 08:41 Dose: 1 packet Ondansetron HCl (Zofran) 4 mg IV Q8H PRN PRN PRN Reason: NAUSEA Oxycodone HCl (Oxyir) 5 - 10 mg PO 4X/DAY PRN PRN PRN Reason: PAIN Last Admin: 01/19/18 23:03 Dose: 10 mg Pantoprazole Sodium (Protonix) [facility] Last Admin: 01/19/18 21:09 Dose: 40 mg Polysaccharide Iron Complex (Ferrex 150) [facility] Last Admin: 01/20/18 08:41 Dose: 150 mg Promethazine HCl (Phenergan) 12.5 mg IV Q6H PRN PRN PRN Reason: NAUSEA/VOMITING Tizanidine HCl (Zanaflex) 4 mg PO Q6H PRN PRN PRN Reason: SPASMS Medical Necessity - Tobacco Use Smoking Status: Former smoker Tobacco Use: Cigarettes Assessment/Plan All Active Problems Methicillin resistant Staphylococcus aureus infection (Acute) Acute osteomyelitis of right pelvic region (Acute) Soft tissue radionecrosis (Acute) Cellulitis and abscess of buttock (Acute) Hyponatremia (Acute) Abscess, gluteal, right (Acute) 1. Generalised debility due to recurrent mechanical falls Has no complaints today. Fell at home and injured his elbow. Orthopedics on board and have reviewed and decided on nonoperative and conservative management. Fall precautions. PT OT on board. Tylenol for pain. Case management on board as he needs placement [place] [facility]. Patient lives with his mother and mother cannot take care of him anymore. 2. Pressure ulcer of the righg glutea and ischial area present on admission stage IV ulceration follows up with Dr Mesa in wound clinic. Wound vac in place Has had partial hysterectomy for osteomyelitis completed vancomycin and Zosyn and Diflucan. He had wound VAC change on 01/19/2018 in the wound center. Has wound VAC change Monday. Wound care nurse on board. 3. Chronic hyponatremia; Sodium is 132. WIll continue to monitor 4. Hypertension: fairly well controlled. On metoprolol, HCTZ and prn hydralazine 5. COPD: PRN duo nebs. Currently stable lungs. Encourage use of incentive spirometer. 6. Hyperlipidemia: On Zetia 7. IBS: On loperamide and Bentyl. 8. Chronic back pain and degenerative joint disease: On Percocet, gabapentin 9. Iron deficiency anemia: Hemoglobin is 9.6 today; was 10.3 on admission. Hemoglobin ranges around 7-9. Continue iron supplementation. 10. GERD: PPI DVT prophylaxis: Lovenox. Code Visit OBSV E&M: 70728 Subsequent observation care L3
--- NOTE | 2018-01-20 10:24 | PN_ITS ---
Subjective: Patient seen and examined. He was admitted with a complaint of a fall and resultant left elbow discomfort. He also is generalized weakness and states he fell in the shower about 1-2 weeks before admission. Left elbow x-ray shows soft tissue swelling possible small bony density likely represent an evulsion fracture or calcific bursitis. He has been managed for mechanical fall and is for placement. Vitals/I&O's: Vital Signs Temp Pulse Resp BP Pulse Ox 97.9 F 75 16 108/57 L 96 01/20/18 09:46 01/20/18 09:51 01/20/18 09:46 01/20/18 09:46 01/20/18 09:46 Oxygen Delivery Method Room Air Weight: 165 lb Body Mass Index (BMI) 25.8 Intake and Output for Last 24 Hours 01/18/18 01/19/18 01/20/18 23:59 23:59 23:59 Intake Total 480 / 480 240 / 240 Output Total 875 / 875 675 / 675 Balance -395 / -395 -435 / -435 General: Alert, Oriented x3, Cooperative, No apparent distress HEENT: Atraumatic, PERRLA, EOMI, Normocephalic Oral: Moist Mucosa Neck: Supple, No JVD, Negative Carotid Bruits Lungs: Clear to auscultation, Normal air movement, No rhonchi, No wheeze, No rales Cardiovascular: Regular rate, Regular Rhythm, Normal S1, Normal S2, No murmurs Abdomen: Bowel Sounds Present, Soft, Non Tender, Non-Distended, No Hepato- splenomegaly, Passing Flatus Extremities: No clubbing, No cyanosis, No edema, Capillary Refill Less than 3 Seconds Skin: - - wound vac in place over right large hip and buttock ulcer Musculoskeletal: No Tenderness to Palpation of Joints or Extremities Lymphatic: No Cervical, Supraclavicular, or Inguinal Adenopathy Neurological: Cranial nerves II-XII grossly intact Psych/Mental Status: Normal Affect, Appropriate, Alert and oriented to time, place, person, mood and affect Laboratory Results 01/19/18 16:43: WBC 7.9, RBC 3.83 L, Hgb 10.3 L, Hct 32.6 L, MCV 85.1, MCH 26.9 L, MCHC 31.6 L, RDW 15.6 H, RDW Differential 48.2 H, Plt Count 440, MPV 7.6, Immature Gran % (Auto) 0.500, Neut % (Auto) 57.7, Lymph % (Auto) 22.7, [place] % (Auto) 10.3 H, Eos % (Auto) 8.4 H, Baso % (Auto) 0.4, Absolute Neuts (auto) 4.6, Absolute Lymphs (auto) 1.79, Total Counted Not Reportable, Platelet Estimate ADEQUATE, RBC Morphology NORM C+C 01/19/18 16:43: Sodium 132 L, Potassium 4.3, Chloride 92 L, Carbon Dioxide 29.0, Anion Gap 11, BUN 21 H, Creatinine 0.62 L, Estim Creat Clear Calc 114.02, Est GFR (MDRD) Af Amer 168, Est GFR (MDRD) Non-Af 139, BUN/Creatinine Ratio 33.8 H, Glucose 94, Calcium 9.3 01/19/18 16:52: Magnesium 2.1 01/20/18 07:13: WBC 5.7, RBC 3.58 L, Hgb 9.6 L, Hct 30.4 L, MCV 84.9, MCH 26.8 L , MCHC 31.6 L, RDW 15.7 H, RDW Differential 48.7 H, Plt Count 341, MPV 7.2, Immature Gran % (Auto) 0.400, Neut % (Auto) 43.2 L, Lymph % (Auto) 30.1, [place] % (Auto) 15.8 H, Eos % (Auto) 10.3 H, Baso % (Auto) 0.2, Absolute Neuts (auto) 2.5, Absolute Lymphs (auto) 1.72, Total Counted Not Reportable, Atypical Lymphocytes 1+, Hypochromasia 1+, Anisocytosis 1+ 01/20/18 07:13: Sodium 132 L, Potassium 4.1, Chloride 93 L, Carbon Dioxide 31.0, Anion Gap 8, BUN 17, Creatinine 0.65 L, Estim Creat Clear Calc 108.75, Est GFR (MDRD) Af Amer 159, Est GFR (MDRD) Non-Af 132, BUN/Creatinine Ratio 26.2 H, Glucose 85, Calcium 8.8 Diagnostic Data Elbow X-Ray 01/19/18 14:14 IMPRESSION: Soft tissue swelling is seen overlying the olecranon process of the proximal ulna with a small bony densities as described. This may represent either avulsion fracture or calcific bursitis. Electronically Signed: Aayush Ibarra MD at 15:06 EST Tel [phone], Service support , Current Medications Al Hydroxide/Mg Hydroxide (Mylanta Ii) 30 ml PO Q6H PRN PRN PRN Reason: Gastric burning Albuterol Sulfate (Ventolin Aerosols) 2.5 mg INHALATION Q2H PRN PRN PRN Reason: dyspnea, wheezing Albuterol/Ipratropium (Duoneb) 3 ml INHALATION Q6HWA.RT [facility] Last Admin: 01/20/18 07:12 Dose: 3 ml Aspirin (Aspirin, Baby) 81 mg PO DAILY@0800 [facility] Last Admin: 01/20/18 08:41 Dose: 81 mg Bupropion HCl (Wellbutrin Xl) 300 mg PO QHS [facility] Last Admin: 01/19/18 21:09 Dose: 300 mg Buspirone HCl (Buspar) 5 mg PO TID [facility] Last Admin: 01/20/18 06:34 Dose: 5 mg Diazepam (Valium) 5 mg PO 4X/DAY PRN PRN PRN Reason: SPASMS Diphenhydramine HCl (Benadryl) 25 mg PO Q6H PRN PRN PRN Reason: ITCHING Last Admin: 01/20/18 02:00 Dose: 25 mg Docusate Sodium (Colace) 100 mg PO BID PRN PRN PRN Reason: Constipation Ezetimibe (Zetia) 10 mg PO QHS [facility] Last Admin: 01/19/18 21:09 Dose: 10 mg Enoxaparin Sodium (Lovenox) 40 mg SC DAILY@1000 [facility] Last Admin: 01/20/18 09:51 Dose: 40 mg Escitalopram Oxalate (Lexapro) 10 mg PO QHS [facility] Last Admin: 01/19/18 21:09 Dose: 10 mg Fluconazole (Diflucan) 400 mg PO DAILY [facility] Last Admin: 01/20/18 09:50 Dose: 400 mg Fluticasone Propionate (Flonase Nasal [place]) 2 spray NASAL BID [facility] Last Admin: 01/20/18 09:50 Dose: 2 spray Gabapentin (Neurontin) 800 mg PO 4X/DAY [facility] Last Admin: 01/20/18 09:51 Dose: 800 mg Hydrochlorothiazide (Hydrochlorothiazide) 12.5 mg PO DAILY [facility] Last Admin: 01/20/18 09:50 Dose: 12.5 mg Ibuprofen (Motrin) 800 mg PO Q8H [facility] Last Admin: 01/20/18 06:34 Dose: 800 mg Loperamide HCl (Imodium) 2 mg PO Q4H PRN PRN PRN Reason: Diarrhea Magnesium Hydroxide (Milk Of Magnesia) 30 ml PO DAILY PRN PRN PRN Reason: Constipation Methylprednisolone (Medrol Dosepak) 8 mg PO 0800 [facility]; Taper Stop: 01/25/18 08:59 Last Admin: 01/20/18 08:42 Dose: 8 mg Metoprolol Tartrate (Lopressor (Beta Joo)) 50 mg PO BID [facility] Last Admin: 01/20/18 09:51 Dose: 50 mg Multivitamins (Multivitamin) 1 tablet PO DAILY@0800 [facility] Last Admin: 01/20/18 08:43 Dose: 1 tablet Nutritional Formula (Chuy - [place] Flavor) [facility] Last Admin: 01/20/18 08:41 Dose: 1 packet Ondansetron HCl (Zofran) 4 mg IV Q8H PRN PRN PRN Reason: NAUSEA Oxycodone HCl (Oxyir) 5 - 10 mg PO 4X/DAY PRN PRN PRN Reason: PAIN Last Admin: 01/19/18 23:03 Dose: 10 mg Pantoprazole [facility] ([facility]tonix) [facility] Last Admin: 01/19/18 21:09 Dose: 40 mg Polysaccharide Iron Complex (Ferrex 150) [facility] Last Admin: 01/20/18 08:41 Dose: 150 mg Promethazine HCl (Phenergan) 12.5 mg IV Q6H PRN PRN PRN Reason: NAUSEA/VOMITING Tizanidine HCl (Zanaflex) 4 mg PO Q6H PRN PRN PRN Reason: SPASMS Medical Necessity - Tobacco Use Smoking Status: Former smoker Tobacco Use: Cigarettes Assessment/Plan All Active Problems Methicillin resistant Staphylococcus aureus infection (Acute) Acute osteomyelitis of right pelvic region (Acute) Soft tissue radionecrosis (Acute) Cellulitis and abscess of buttock (Acute) Hyponatremia (Acute) Abscess, gluteal, right (Acute) 1. Generalised debility due to recurrent mechanical falls * Has no complaints today. Fell at home and injured his elbow. Orthopedics on board and have reviewed and decided on nonoperative and conservative management. * Fall precautions. PT OT on board. * Tylenol for pain. * Case management on board as [facility] * Patient lives with his mother and mother cannot take care of him anymore. * 2. Pressure ulcer of the righg glutea and ischial area * present on admission * stage IV ulceration * follows up with Dr Mesa in wound clinic. Wound vac in place * Has had partial hysterectomy for osteomyelitis completed vancomycin and Zosyn and Diflucan. He had wound VAC change on 01/19/2018 in the wound center. * Has wound VAC change Monday. * Wound care nurse on board. 3. Chronic hyponatremia; Sodium is 132. WIll continue to monitor 4. Hypertension: fairly well controlled. On metoprolol, HCTZ and prn hydralazine 5. COPD: PRN duo nebs. Currently stable lungs. Encourage use of incentive spirometer. 6. Hyperlipidemia: On Zetia 7. IBS: On loperamide and Bentyl. 8. Chronic back pain and degenerative joint disease: On Percocet, gabapentin 9. Iron deficiency anemia: Hemoglobin is 9.6 today; was 10.3 on admission. Hemoglobin ranges around 7-9. Continue iron supplementation. 10. GERD: PPI DVT prophylaxis: Lovenox. Code Visit OBSV E&M: 03320 Subsequent observation care L3
[2018-01-20] MEDS: oxyCODONE 5 MG Tablet PO ×2 (11:12→14:03)
--- NOTE | 2018-01-20 13:53 | NURSING ---
Nurse notifies Christos at [facility] of placement of wound vac and initiation of therapy. Ref #[id number].
[2018-01-20] MEDS: Loperamide 2 MG Capsule PO (17:57)
[2018-01-20] MEDS: Ezetimibe 10 MG Tablet PO (22:18)
[2018-01-20] MEDS: buPROPion (XL) 300 MG TABLET.XL PO (22:18)
[2018-01-20] MEDS: Pantoprazole Sodium 40 MG Tablet PO (22:18)
[2018-01-20] MEDS: Escitalopram Oxalate 10 MG Tablet PO (22:22)
[2018-01-21] VITALS (9 sets, daily range): BP systolic 126–162; BP diastolic 52–79; PULSE 72–89; RESP 16–18; TEMP 36.5–37.2; O2SAT 95–99
[2018-01-21 06:06] LABS: Absolute Lymphocyte Count 0.91 X10^3/ul (0.83-4.51); Absolute Neutrophil Count 5.1 X10^3/uL (2.0-7.7); Basophil# 0.01 X10^3/uL; Basophil% 0.1 % (0-1); Eosinophil# 0.02 X10^3/uL; Eosinophils% 0.3 % (0-5); Hematocrit 32.5 % (40-54); Hemoglobin 10.5 g/dl (13.0-16.5); Lymphocyte # 0.91 X10^3/ul (4.0); Lymphocyte % 13.5 % (19-41); Mean Corp Hgb Conc 32.3 g/gl (32-36); Mean Corpuscular Hgb 27.3 pg (27.0-32.0); Mean Corpuscular Volume 84.4 fL (80-94); Mean Platelet Vol. 7.5 fl (6.2-12.0); Monocyte# 0.71 X10^3/uL; Monocyte% 10.5 % (0-10); Neutrophil # 5.05 X10^3/uL (2.7-7.7); Neutrophil % 75.2 % (47-70); Platelet Count 518 K/mm3 (150-450); RBC Distribution Width CV 15.4 % (11.6-14.6); RBC Distribution Width SD 46.2 fl (35.1-43.9); Red Blood Count 3.85 M/mm3 (4.6-6.2); White Blood Count 6.7 K/mm3 (4.4-11.0)
[2018-01-21 06:21] LABS: POSITIVE COUNT NO; POSITIVE DIFFERENTIAL NO; POSITIVE MORPHOLOGY NO
[2018-01-21] MEDS: busPIRone 5 MG Tablet PO ×3 (06:44→20:06)
[2018-01-21] MEDS: Ibuprofen 400 MG Tablet 800 MG PO ×3 (06:44→22:53)
[2018-01-21 06:49] LABS: Anion Gap 10 (5-15); BUN 21 mg/dL (7-18); BUN/Creat Ratio 33.2 RATIO (10-20); Calcium,Total 9.3 mg/dL (8.5-10.1); Chloride 93 mmol/L (98-107); Creatinine, Serum 0.63 mg/dL (0.70-1.30); EST Glomerular Filtration Rate 136 mL/min (>60); Est Glom Filt Rate - Afr Amer 164 mL/min (>60); Estimated Creatinine Clearance 112.21 ml/min; Glucose 136 mg/dL (74-106); Potassium 4.5 mmol/L (3.5-5.1); Sodium Level 132 mmol/L (136-145)
[2018-01-21] MEDS: Iron Polysaccharide Complex 150 MG CAPSULE PO (08:47)
[2018-01-21] MEDS: Aspirin 81 MG TAB.CHEW PO (08:47)
[2018-01-21] MEDS: Multivitamins,Therapeutic Tablet 1 TABLET PO (08:47)
[2018-01-21] MEDS: MethylPREDNISolone DosePak 4 MG BOX PO ×4 (08:47→20:07)
[2018-01-21] MEDS: Gabapentin 800 MG Tablet PO ×4 (09:31→20:07)
[2018-01-21] MEDS: Metoprolol Tartrate 50 MG Tablet PO ×2 (09:31→20:06)
[2018-01-21] MEDS: Enoxaparin 40 MG/0.4 ML Syringe SC (09:31)
[2018-01-21] MEDS: Fluconazole 100 MG Tablet 400 MG PO (09:31)
[2018-01-21] MEDS: hydroCHLOROthiazide 12.5mg 12.5 MG PO (09:31)
[2018-01-21] MEDS: Fluticasone 0.05% 1 SPRAY NASAL.SRY 2 SPRAY NASAL ×2 (09:32→20:05)
--- NOTE | 2018-01-21 09:45 | PCM.PN.HOSP ---
Subjective: Patient seen and examined. He had no complaints overnight. He denies any fever chills, cough or chest pain, any shortness of breath, abdominal pain, any diarrhea vomiting. Review of systems otherwise negative. Patient insisted on Dr. Mesa being consulted yesterday to care for his wound VAC. Labs and vitals reviewed Vitals/I&O's: Vital Signs Temp Pulse Resp BP Pulse Ox 97.7 F L 72 16 142/79 H 98 01/21/18 09:30 01/21/18 09:31 01/21/18 09:30 01/21/18 09:30 01/21/18 09:30 Oxygen Delivery Method Room Air Weight: 165 lb Body Mass Index (BMI) 25.8 Intake and Output for Last 24 Hours 01/19/18 01/20/18 01/21/18 23:59 23:59 23:59 Intake Total 480 / 480 1340 / 1340 300 / 300 Output Total 875 / 875 675 / 675 1550 / 1550 Balance -395 / -395 665 / 665 -1250 / -1250 General: Alert, Oriented x3, Cooperative, No apparent distress HEENT: Atraumatic, PERRLA, EOMI, Normocephalic Oral: Moist Mucosa Neck: Supple, No JVD, Negative Carotid Bruits Lungs: Clear to auscultation, Normal air movement, No rhonchi, No wheeze, No rales Cardiovascular: Regular rate, Regular Rhythm, Normal S1, Normal S2, No murmurs Abdomen: Bowel Sounds Present, Soft, Non Tender, Non-Distended, No Hepato-splenomegaly, Extremities: No clubbing, No cyanosis, No edema, Capillary Refill Less than 3 Seconds Skin: - - wound vac in place over right large hip and buttock ulcer Musculoskeletal: mild tendenerness and swelling over left elbow. Lymphatic: No Cervical, Supraclavicular, or Inguinal Adenopathy Neurological: Cranial nerves II-XII grossly intact Psych/Mental Status: Normal Affect, Appropriate, Alert and oriented to time, place, person, mood and affect Laboratory Results 01/21/18 05:30: WBC 6.7, RBC 3.85 L, Hgb 10.5 L, Hct 32.5 L, MCV 84.4, MCH 27.3, MCHC 32.3, RDW 15.4 H, RDW Differential 46.2 H, Plt Count 518 H, MPV 7.5, Immature Gran % (Auto) 0.400, Neut % (Auto) 75.2 H, Lymph % (Auto) 13.5 L, [place] % (Auto) 10.5 H, Eos % (Auto) 0.3, Baso % (Auto) 0.1, Absolute Neuts (auto) 5.1, Absolute Lymphs (auto) 0.91, Total Counted Not Reportable 01/21/18 05:30: Sodium 132 L, Potassium 4.5, Chloride 93 L, Carbon Dioxide 29.0, Anion Gap 10, BUN 21 H, Creatinine 0.63 L, Estim Creat Clear Calc 112.21, Est GFR (MDRD) Af Amer 164, Est GFR (MDRD) Non-Af 136, BUN/Creatinine Ratio 33.2 H, Glucose 136 H, Calcium 9.3 Current Medications Al Hydroxide/Mg Hydroxide (Mylanta Ii) 30 ml PO Q6H PRN PRN PRN Reason: Gastric burning Albuterol Sulfate (Ventolin Aerosols) 2.5 mg INHALATION Q2H PRN PRN PRN Reason: dyspnea, wheezing Albuterol/Ipratropium (Duoneb) 3 ml INHALATION Q6HWA.RT [facility] Last Admin: 01/21/18 06:42 Dose: Not Given Aspirin (Aspirin, Baby) 81 mg PO DAILY@0800 [facility] Last Admin: 01/21/18 08:47 Dose: 81 mg Bupropion HCl (Wellbutrin Xl) 300 mg PO QHS [facility] Last Admin: 01/20/18 22:18 Dose: 300 mg Buspirone HCl (Buspar) 5 mg PO TID [facility] Last Admin: 01/21/18 06:44 Dose: 5 mg Diazepam (Valium) 5 mg PO 4X/DAY PRN PRN PRN Reason: SPASMS Diphenhydramine HCl (Benadryl) 25 mg PO Q6H PRN PRN PRN Reason: ITCHING Last Admin: 01/20/18 19:42 Dose: 25 mg Docusate Sodium (Colace) 100 mg PO BID PRN PRN PRN Reason: Constipation Ezetimibe (Zetia) 10 mg PO QHS [facility] Last Admin: 01/20/18 22:18 Dose: 10 mg Enoxaparin Sodium (Lovenox) 40 mg SC DAILY@1000 [facility] Last Admin: 01/21/18 09:31 Dose: 40 mg Escitalopram Oxalate (Lexapro) 10 mg PO QHS [facility] Last Admin: 01/20/18 22:22 Dose: 10 mg Fluconazole (Diflucan) 400 mg PO DAILY [facility] Last Admin: 01/21/18 09:31 Dose: 400 mg Fluticasone Propionate (Flonase Nasal [place]) 2 spray NASAL BID [facility] Last Admin: 01/21/18 09:32 Dose: 2 spray Gabapentin (Neurontin) 800 mg PO 4X/DAY [facility] Last Admin: 01/21/18 09:31 Dose: 800 mg Hydrochlorothiazide (Hydrochlorothiazide) 12.5 mg PO DAILY [facility] Last Admin: 01/21/18 09:31 Dose: 12.5 mg Ibuprofen (Motrin) 800 mg PO Q8H [facility] Last Admin: 01/21/18 06:44 Dose: 800 mg Loperamide HCl (Imodium) 2 mg PO Q4H PRN PRN PRN Reason: Diarrhea Last Admin: 01/20/18 17:57 Dose: 2 mg Magnesium Hydroxide (Milk Of Magnesia) 30 ml PO DAILY PRN PRN PRN Reason: Constipation Methylprednisolone (Medrol Dosepak) 4 mg PO 0800,1200,1700 [facility]; Taper Stop: 01/25/18 08:59 Last Admin: 01/21/18 08:47 Dose: 4 mg Metoprolol Tartrate (Lopressor (Beta Joo)) 50 mg PO BID [facility] Last Admin: 01/21/18 09:31 Dose: 50 mg Multivitamins (Multivitamin) 1 tablet PO DAILY@0800 [facility] Last Admin: 01/21/18 08:47 Dose: 1 tablet Nutritional Formula ([place] - [place] Flavor) [facility] Last Admin: 01/21/18 08:47 Dose: 1 packet Ondansetron HCl (Zofran) 4 mg IV Q8H PRN PRN PRN Reason: NAUSEA Oxycodone HCl (Oxyir) 5 - 10 mg PO 4X/DAY PRN PRN PRN Reason: PAIN Last Admin: 01/20/18 14:03 Dose: 5 mg Pantoprazole Sodium (Protonix) 40 mg PO QHS [facility] Last Admin: 01/20/18 22:18 Dose: 40 mg Polysaccharide Iron Complex (Ferrex 150) [facility] Last Admin: 01/21/18 08:47 Dose: 150 mg Promethazine HCl (Phenergan) 12.5 mg IV Q6H PRN PRN PRN Reason: NAUSEA/VOMITING Sodium Chloride () 5 - 30 ml IV UD PRN PRN Reason: SALINE FLUSH Tizanidine HCl (Zanaflex) 4 mg PO Q6H PRN PRN PRN Reason: SPASMS Medical Necessity - Tobacco Use Smoking Status: Former smoker Tobacco Use: Cigarettes Assessment/Plan All Active Problems Methicillin resistant Staphylococcus aureus infection (Acute) Acute osteomyelitis of right pelvic region (Acute) Soft tissue radionecrosis (Acute) Cellulitis and abscess of buttock (Acute) Hyponatremia (Acute) Abscess, gluteal, right (Acute) 1. Generalised debility due to recurrent mechanical falls Has no complaints today. Fell at home and injured his elbow. Orthopedics on board and have reviewed and decided on nonoperative and conservative management. Fall precautions. PT OT on board. Tylenol for pain. awaiting placement 2. Pressure ulcer of the right glutea and ischial area present on admission stage IV ulceration follows up with Dr Mesa in wound clinic. Wound vac in place Has had partial osteotomy for osteomyelitis completed vancomycin and Zosyn and Diflucan. He had wound VAC change on 01/19/2018 in the wound center. Has wound VAC change Monday. Wound care nurse on board. patient insisted on Dr Mesa being consulted yesterday to care for his wound vac. 3. LEft elbow pain due to fall xray done showed soft tissue swelling over olecranon process of proximal ulna and tiny bony densities arising from olecranon process. No effusion seen. This may represent an avulsion fracture or calcific bursitis. Still complains of pain. On Tylenol for pain. 4. Chronic hyponatremia; Sodium remains 132. WIll continue to monitor 5. Hypertension: fairly well controlled. On metoprolol, HCTZ and prn hydralazine 6. COPD: PRN duo nebs. Currently stable lungs. Encourage use of incentive spirometer. 7. Hyperlipidemia: On Zetia 8. IBS: On loperamide and Bentyl. 9. Chronic back pain and degenerative joint disease: On Percocet, gabapentin 10. Iron deficiency anemia: Hemoglobin is 910.5 today. Continue iron supplementation. 11. GERD: PPI DVT prophylaxis: Lovenox. Disposition: awaiting placement Code Visit Inpatient E&M: 89567 Subs Hosp L2
--- NOTE | 2018-01-21 09:54 | PN_ITS ---
Subjective: Patient seen and examined. He had no complaints overnight. He denies any fever chills, cough or chest pain, any shortness of breath, abdominal pain, any diarrhea vomiting. Review of systems otherwise negative. Patient insisted on Dr. Mesa being consulted yesterday to care for his wound VAC. Labs and vitals reviewed Vitals/I&O's: Vital Signs Temp Pulse Resp BP Pulse Ox 97.7 F L 72 16 142/79 H 98 01/21/18 09:30 01/21/18 09:31 01/21/18 09:30 01/21/18 09:30 01/21/18 09:30 Oxygen Delivery Method Room Air Weight: 165 lb Body Mass Index (BMI) 25.8 Intake and Output for Last 24 Hours 01/19/18 01/20/18 01/21/18 23:59 23:59 23:59 Intake Total 480 / 480 1340 / 1340 300 / 300 Output Total 875 / 875 675 / 675 1550 / 1550 Balance -395 / -395 665 / 665 -1250 / -1250 General: Alert, Oriented x3, Cooperative, No apparent distress HEENT: Atraumatic, PERRLA, EOMI, Normocephalic Oral: Moist Mucosa Neck: Supple, No JVD, Negative Carotid Bruits Lungs: Clear to auscultation, Normal air movement, No rhonchi, No wheeze, No rales Cardiovascular: Regular rate, Regular Rhythm, Normal S1, Normal S2, No murmurs Abdomen: Bowel Sounds Present, Soft, Non Tender, Non-Distended, No Hepato- splenomegaly, Extremities: No clubbing, No cyanosis, No edema, Capillary Refill Less than 3 Seconds Skin: - - wound vac in place over right large hip and buttock ulcer Musculoskeletal: mild tendenerness and swelling over left elbow. Lymphatic: No Cervical, Supraclavicular, or Inguinal Adenopathy Neurological: Cranial nerves II-XII grossly intact Psych/Mental Status: Normal Affect, Appropriate, Alert and oriented to time, place, person, mood and affect Laboratory Results 01/21/18 05:30: WBC 6.7, RBC 3.85 L, Hgb 10.5 L, Hct 32.5 L, MCV 84.4, MCH 27.3, MCHC 32.3, RDW 15.4 H, RDW Differential 46.2 H, Plt Count 518 H, MPV 7.5, Immature Gran % (Auto) 0.400, Neut % (Auto) 75.2 H, Lymph % (Auto) 13.5 L, [place] % (Auto) 10.5 H, Eos % (Auto) 0.3, Baso % (Auto) 0.1, Absolute Neuts (auto) 5.1, Absolute Lymphs (auto) 0.91, Total Counted Not Reportable 01/21/18 05:30: Sodium 132 L, Potassium 4.5, Chloride 93 L, Carbon Dioxide 29.0, Anion Gap 10, BUN 21 H, Creatinine 0.63 L, Estim Creat Clear Calc 112.21, Est GFR (MDRD) Af Amer 164, Est GFR (MDRD) Non-Af 136, BUN/Creatinine Ratio 33.2 H, Glucose 136 H, Calcium 9.3 Current Medications Al Hydroxide/Mg Hydroxide (Mylanta Ii) 30 ml PO Q6H PRN PRN PRN Reason: Gastric burning Albuterol Sulfate (Ventolin Aerosols) 2.5 mg INHALATION Q2H PRN PRN PRN Reason: dyspnea, wheezing Albuterol/Ipratropium (Duoneb) 3 ml INHALATION Q6HWA.RT [facility] Last Admin: 01/21/18 06:42 Dose: Not Given Aspirin (Aspirin, Baby) 81 mg PO DAILY@0800 [facility] Last Admin: 01/21/18 08:47 Dose: 81 mg Bupropion HCl (Wellbutrin Xl) 300 mg PO QHS [facility] Last Admin: 01/20/18 22:18 Dose: 300 mg Buspirone HCl (Buspar) 5 mg PO TID [facility] Last Admin: 01/21/18 06:44 Dose: 5 mg Diazepam (Valium) 5 mg PO 4X/DAY PRN PRN PRN Reason: SPASMS Diphenhydramine HCl (Benadryl) 25 mg PO Q6H PRN PRN PRN Reason: ITCHING Last Admin: 01/20/18 19:42 Dose: 25 mg Docusate Sodium (Colace) 100 mg PO BID PRN PRN PRN Reason: Constipation Ezetimibe (Zetia) 10 mg PO QHS [facility] Last Admin: 01/20/18 22:18 Dose: 10 mg Enoxaparin Sodium (Lovenox) 40 mg SC DAILY@1000 [facility] Last Admin: 01/21/18 09:31 Dose: 40 mg Escitalopram Oxalate (Lexapro) 10 mg PO QHS [facility] Last Admin: 01/20/18 22:22 Dose: 10 mg Fluconazole (Diflucan) 400 mg PO DAILY [facility] Last Admin: 01/21/18 09:31 Dose: 400 mg Fluticasone Propionate (Flonase Nasal [place]) 2 spray NASAL BID [facility] Last Admin: 01/21/18 09:32 Dose: 2 spray Gabapentin (Neurontin) 800 mg PO 4X/DAY [facility] Last Admin: 01/21/18 09:31 Dose: 800 mg Hydrochlorothiazide (Hydrochlorothiazide) 12.5 mg PO DAILY [facility] Last Admin: 01/21/18 09:31 Dose: 12.5 mg Ibuprofen (Motrin) 800 mg PO Q8H [facility] Last Admin: 01/21/18 06:44 Dose: 800 mg Loperamide HCl (Imodium) 2 mg PO Q4H PRN PRN PRN Reason: Diarrhea Last Admin: 01/20/18 17:57 Dose: 2 mg Magnesium Hydroxide (Milk Of Magnesia) 30 ml PO DAILY PRN PRN PRN Reason: Constipation Methylprednisolone (Medrol Dosepak) 4 mg PO 0800,1200,1700 [facility]; Taper Stop: 01/25/18 08:59 Last Admin: 01/21/18 08:47 Dose: 4 mg Metoprolol Tartrate (Lopressor (Beta Joo)) 50 mg PO BID [facility] Last Admin: 01/21/18 09:31 Dose: 50 mg Multivitamins (Multivitamin) 1 tablet PO DAILY@0800 [facility] Last Admin: 01/21/18 08:47 Dose: 1 tablet Nutritional Formula ([place] - [place] Flavor) [facility] Last Admin: 01/21/18 08:47 Dose: 1 packet Ondansetron HCl (Zofran) 4 mg IV Q8H PRN PRN PRN Reason: NAUSEA Oxycodone HCl (Oxyir) 5 - 10 mg PO 4X/DAY PRN PRN PRN Reason: PAIN Last Admin: 01/20/18 14:03 Dose: 5 mg Pantoprazole Sodium (Protonix) 40 mg PO QHS [facility] Last Admin: 01/20/18 22:18 Dose: 40 mg Polysaccharide Iron Complex (Ferrex 150) [facility] Last Admin: 01/21/18 08:47 Dose: 150 mg Promethazine HCl (Phenergan) 12.5 mg IV Q6H PRN PRN PRN Reason: NAUSEA/VOMITING Sodium Chloride () 5 - 30 ml IV UD PRN PRN Reason: SALINE FLUSH Tizanidine HCl (Zanaflex) 4 mg PO Q6H PRN PRN PRN Reason: SPASMS Medical Necessity - Tobacco Use Smoking Status: Former smoker Tobacco Use: Cigarettes Assessment/Plan All Active Problems Methicillin resistant Staphylococcus aureus infection (Acute) Acute osteomyelitis of right pelvic region (Acute) Soft tissue radionecrosis (Acute) Cellulitis and abscess of buttock (Acute) Hyponatremia (Acute) Abscess, gluteal, right (Acute) 1. Generalised debility due to recurrent mechanical falls * Has no complaints today. Fell at home and injured his elbow. Orthopedics on board and have reviewed and decided on nonoperative and conservative management. * Fall precautions. PT OT on board. * Tylenol for pain. * awaiting placement * 2. Pressure ulcer of the right glutea and ischial area * present on admission * stage IV ulceration * follows up with Dr Mesa in wound clinic. Wound vac in place * Has had partial osteotomy for osteomyelitis completed vancomycin and Zosyn and Diflucan. He had wound VAC change on 01/19/2018 in the wound center. * Has wound VAC change Monday. * Wound care nurse on board. * patient insisted on Dr Mesa being consulted yesterday to care for his wound v ac. 3. LEft elbow pain due to fall * xray done showed soft tissue swelling over olecranon process of proximal ulna and tiny bony densities arising from olecranon process. No effusion seen. This may represent an avulsion fracture or calcific bursitis. * Still complains of pain. On Tylenol for pain. * 4. Chronic hyponatremia; Sodium remains 132. WIll continue to monitor 5. Hypertension: fairly well controlled. On metoprolol, HCTZ and prn hydralazine 6. COPD: PRN duo nebs. Currently stable lungs. Encourage use of incentive spirometer. 7. Hyperlipidemia: On Zetia 8. IBS: On loperamide and Bentyl. 9. Chronic back pain and degenerative joint disease: On Percocet, gabapentin 10. Iron deficiency anemia: Hemoglobin is 910.5 today. Continue iron supplementation. 11. GERD: PPI DVT prophylaxis: Lovenox. Disposition: awaiting placement Code Visit Inpatient E&M: 99078 Subs Hosp L2
[2018-01-21] MEDS: Loperamide 2 MG Capsule PO (11:23)
--- NOTE | 2018-01-21 14:53 | PCM.CONS.GEN ---
Reason for Consult Date of Consultation: 01/21/18 Reason for Consultation: left elbow pain. requested by dr brady History of Present Illness: The patient is a 62 year old M with history of multiple medical comorbidities most notable for colon cancer with radiation and recurrent nonhealing radiation ulcerations. Patient fell on the day prior to presentation in the emergency department with a fall in the shower 1-2 days prior to that. He presents with left elbow pain 7 out of 10 better with immobilization worse with forced extension. No numbness and tingling distally. Passive movement of the elbow does not cause pain. Supination pronation does not cause pain. Adduction of the elbow does not cause pain. He does report some difficulty using his walker due to the elbow pain and was admitted to the hospital for transition to retirement care. Denies any fevers chills or night sweats. 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, stage 4 (Chronic) Anal cancer (Chronic) Hepatitis C carrier (Chronic) COPD (chronic obstructive pulmonary disease) (Chronic) Anxiety and depression (Chronic) HTN (hypertension) (Chronic) HLD (hyperlipidemia) (Chronic) GERD (gastroesophageal reflux disease) (Chronic) PAD (peripheral artery disease) (Chronic) Allergies povidone-iodine [From Betadine] Allergy (Verified 01/19/18 13:50) Hives Rkiglna-Qfv-Yhv Reductase Inhibitor Adverse Reaction (Verified 01/19/18 13:50) MESSED MY LIVER UP adhesive tape Allergy (Uncoded 01/19/18 13:50) Itching/rash Home Medications: Ambulatory Orders Medication Instructions Recorded Aspirin [Aspirin, Baby] 81 mg PO DAILY@0800 03/22/16 Escitalopram Oxalate [Lexapro] 10 mg PO QHS 03/22/16 Ezetimibe [Zetia] 10 mg PO QHS 03/22/16 Fluticasone 0.05% [Flonase Nasal 2 spray NASAL BID 03/22/16 [place]] Multivitamin [Multiple Vitamins] 1 each PO DAILY 03/22/16 Omeprazole [Prilosec] 40 mg PO QHS 03/22/16 buPROPion XL [Wellbutrin Xl] 300 mg PO QHS 03/22/16 busPIRone [Buspar] 5 mg PO TID 03/22/16 Tiotropium [employer] [Spiriva 2 puff INHALATION DAILY 10/20/16 Respimat] Cholecalciferol (Vitamin D3) 1,000 unit PO DAILY 12/09/16 [Vitamin D3] Tizanidine HCl [Zanaflex] 4 mg PO Q6H PRN PRN 12/27/16 Testosterone [Androderm 2mg/24 hr] 1 each TD DAILY 06/08/17 DiphenhydrAMINE [Benadryl] 25 mg PO Q6H PRN capsule 06/14/17 Loperamide [Imodium] 2 mg PO Q4H PRN PRN capsule 06/14/17 Docusate Sodium [Colace] 100 mg PO PRN PRN 10/16/17 Nutritional Supplement [Chuy - 1 packet PO BIDCM 10/16/17 [place]] Diazepam [Valium] 5 mg PO 4X/DAY PRN PRN #30 tab 10/20/17 Hydrochlorothiazide 12.5 mg PO DAILY capsule 10/20/17 Iron Polysaccharide Complex 150 mg PO DAILYCM capsule 10/20/17 [Ferrex 150] Oxycodone HCl/Acetaminophen 1 - 2 tab PO 4X/DAY PRN PRN 5 Days 10/20/17 [Percocet 5-325] #40 tab proMETHazine tablet [Phenergan 25 mg PO Q4H PRN PRN tablet 10/20/17 tablet] Fluconazole [Diflucan] 400 mg PO DAILY 01/19/18 Gabapentin [Neurontin] 800 mg PO 4X/DAY 01/19/18 Ibuprofen [Ibu] 800 mg PO TID 01/19/18 Metoprolol Tartrate [Lopressor 50 ng PO BID 01/19/18 (beta curt)] Bran/Gum/Fib/Cony/Psyl/Kelp/Pec 2,000 mg PO ACHS 01/20/18 [Fiber 6 Tablet] Diphenoxylate/Atrop [Lomotil] 2 tab PO 4X/DAY PRN PRN 01/20/18 Surgical History: total hip arthroplasty - left, total knee arthroplasty, - - 12/30/16 Surgical preparation right gluteal/ischial area with excision radiation pressure sore abscess wound and partial ostectomy for osteomyelitis (52.5 cm2), 06/08/17 Excision radiation pressure sore abscess ulcer right ischial area, Stage IV, with partial ostectomy for osteomyelitis, 10/17/17 Excision radiation pressure sore abscess ulcer right ischial area, Stage IV, with partial ostectomy for osteomyelitis. Psychiatric History: Anxiety, Depression Lives: With Family Smoking Status: Former smoker Tobacco Use: Cigarettes Alcohol: None Drugs: None - *Family History Maternal History Items: - - Denies any marked maternal or paternal family history including DM, HTN, HD. Paternal History Items: - - Denies any marked maternal or paternal family history including DM, HTN, HD. Review of Systems Constitutional: Denies: Chills, Fever, Weight Change HEENT: Denies: Head Aches, Sinus Congestion, Sinus Drainage Cardiovascular: Denies: Chest Pain, Palpitations Respiratory: Denies: Cough, Shortness of breath at rest, Sputum production Gastrointestinal: Denies: Abdominal Pain, Nausea, Vomiting Genitourinary: Denies: Dysuria Musculoskeletal: Reports: Joint Pain - Left elbow, Joint Tenderness Skin: Reports: Wounds Neurological: Denies: Numbness, Tingling, Focal weakness Psychiatric: Denies: Anxiety, Depression, Homicidal Ideations, Suicidal Ideations Hematologic/ Lymphatic: Denies: Easy Bruising, Easy Bleeding Objective: Left elbow radiographs were reviewed showing no acute fractures. There are some calcifications in the area of the distal triceps which did not appear to be consistent with a acute avulsion. - Physical Exam General: Alert, Oriented x3, Cooperative Extremities: - - Left upper extremity: No redness or erythema around the elbow. Mild swelling and ecchymosis in the posterior elbow at the insertion of the triceps. Patient has tenderness palpation at the insertion of the triceps. No gross palpable defect. 5 out of 5 elbow flexion pronation and supination. 4 out of 5 elbow extension secondary to pain. Degrees supination, 80 degrees pronation. Full extension without pain, full flexion without pain with range of motion. Neurovascular intact distally R/M/U. Motor is intact distally R/and/U. Vital Signs Temp Pulse Resp BP Pulse Ox 97.7 F L 72 16 142/79 H 97 01/21/18 09:30 01/21/18 09:31 01/21/18 09:30 01/21/18 09:30 01/21/18 13:29 Oxygen Delivery Method Room Air Weight: 165 lb Body Mass Index (BMI) 25.8 Intake and Output for Last 24 Hours 01/19/18 01/20/18 01/21/18 23:59 23:59 23:59 Intake Total 480 / 480 1340 / 1340 800 / 800 Output Total 875 / 875 675 / 675 1550 / 1550 Balance -395 / -395 665 / 665 -750 / -750 Laboratory Tests Past 24 Hrs 01/21/18 01/21/18 05:30 05:30 WBC 6.7 RBC 3.85 L Hgb 10.5 L Hct 32.5 L MCV 84.4 MCH 27.3 MCHC 32.3 RDW 15.4 H RDW Differential 46.2 H Plt Count 518 H MPV 7.5 Immature Gran % (Auto) 0.400 Neut % (Auto) 75.2 H Lymph % (Auto) 13.5 [place] % (Auto) 10.5 H Eos % (Auto) 0.3 Baso % (Auto) 0.1 Absolute Neuts (auto) 5.1 Absolute Lymphs (auto) 0.91 Total Counted Not Reportable Sodium 132 L Potassium 4.5 Chloride 93 L Carbon Dioxide 29.0 Anion Gap 10 BUN 21 H Creatinine 0.63 L Estim Creat Clear Calc 112.21 Est GFR (MDRD) Af Amer 164 Est GFR (MDRD) Non-Af 136 BUN/Creatinine Ratio 33.2 H Glucose 136 H Calcium 9.3 Assessment/Plan All Active Problems Methicillin resistant Staphylococcus aureus infection (Acute) Acute osteomyelitis of right pelvic region (Acute) Soft tissue radionecrosis (Acute) Cellulitis and abscess of buttock (Acute) Hyponatremia (Acute) Abscess, gluteal, right (Acute) Left elbow contusion/strain with calcific tendinitis. At this time natural history of disease process and treatment options were discussed the patient. Going to make the patient weightbearing as tolerated with elbow flexion with no resistance on elbow extension. He can do active and passive extension without resistance. This will also mean that he will need a platform elbow extension for his walker. We will see the patient back in the office in 2 weeks and hopefully progress his activity level and begin strengthening the extensor mechanism of the elbow. Patient is also start a Medrol Dosepak which will help with any calcific tendinitis. Recommend nonsteroidal anti-inflammatories if possible for any pain management issues. Tylenol as well. Please call orthopedics for any further questions. [facility] Office:
[2018-01-21] MEDS: oxyCODONE 5 MG Tablet PO (20:04)
[2018-01-21] MEDS: buPROPion (XL) 300 MG TABLET.XL PO (20:06)
[2018-01-21] MEDS: Ezetimibe 10 MG Tablet PO (20:07)
[2018-01-21] MEDS: Escitalopram Oxalate 10 MG Tablet PO (20:07)
[2018-01-21] MEDS: Pantoprazole Sodium 40 MG Tablet PO (20:12)
[2018-01-21] MEDS: 0.9% NaCl Peripheral Flush Adult/Peds IV (20:12)
--- NOTE | 2018-01-21 21:17 | PN.SURG_ITS ---
Subjective: Patient is resting comfortably. Patient is known to me. He had surgery on 10/17/17 where he underwent excision radiation pressure sore abscess ulcer right ischial area, Stage IV, with partial ostectomy for osteomyelitis. Wound care - VAC. Operative culture - Soft tissue - MRSA, Enterobacter cloacae, Corynebacterium striatum. Bone - MRSA and C andida albicans. He was placed on Vancomycin and Zosyn and has finished them. He was placed on Diflucan and will continue it. Pathology - acute osteomyelitis. Prealbumin from 10/18/17 was 20.0. Encourage nutritional supplementation with protein to help the healing process. Today he denies fever. His appetite is good. He has started HBO treatments for his soft tissue radionecrosis and osteomyelitis in preparation for wound closure with muscle flaps. He was recently admitted to the hospital because of a fall at home on his left elbow and because he was getting weaker at home and his mother had trouble taking care of him. He is being evaluated for ECF placement. - Physical Exam General: Alert, Oriented x3 HEENT: PERRLA, EOMI Oral: Moist Mucosa Neck: Supple Abdomen: Soft, Non-Distended Skin: Ulcer/ Wound - right ischial pressure sore - stable. Some granulation tissue present. Bone is partially exposed. No purulent drainage noted. Mild tenderness to palpation. Stage IV. Measures 8 x 4.5 x 3 cm. Neurological: Cranial nerves II-XII grossly intact Psych/Mental Status: Normal Affect, Appropriate Vital Signs Temp Pulse Resp BP Pulse Ox 99 F 77 18 156/64 H 96 01/21/18 20:00 01/21/18 20:24 01/21/18 20:24 01/21/18 20:06 01/21/18 20:24 Oxygen Delivery Method Room Air Weight: 165 lb Body Mass Index (BMI) 25.8 Intake and Output for Last 24 Hours 01/19/18 01/20/18 01/21/18 23:59 23:59 23:59 Intake Total 480 / 480 1340 / 1340 800 / 800 Output Total 875 / 875 675 / 675 1800 / 1800 Balance -395 / -395 665 / 665 -1000 / -1000 Laboratory Tests Past 24 Hrs 01/21/18 01/21/18 05:30 05:30 WBC 6.7 RBC 3.85 L Hgb 10.5 L Hct 32.5 L MCV 84.4 MCH 27.3 MCHC 32.3 RDW 15.4 H RDW Differential 46.2 H Plt Count 518 H MPV 7.5 Immature Gran % (Auto) 0.400 Neut % (Auto) 75.2 H Lymph % (Auto) 13.5 L [place] % (Auto) 10.5 H Eos % (Auto) 0.3 Baso % (Auto) 0.1 Absolute Neuts (auto) 5.1 Absolute Lymphs (auto) 0.91 Total Counted Not Reportable Sodium 132 L Potassium 4.5 Chloride 93 L Carbon Dioxide 29.0 Anion Gap 10 BUN 21 H Creatinine 0.63 L Estim Creat Clear Calc 112.21 Est GFR (MDRD) Af Amer 164 Est GFR (MDRD) Non-Af 136 BUN/Creatinine Ratio 33.2 H Glucose 136 H Calcium 9.3 Medical Necessity - Tobacco Use Smoking Status: Former smoker Tobacco Use: Cigarettes Assessment/Plan All Active Problems Debility (Acute) 1. 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 2. Late effect radiation right gluteal/ischial area. 3. Osteomyelitis. 4. History of anal CA treated with chemotherapy and radiation therapy. 5. MRSA. 6. 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 Continue VAC. Increase the pressure to 150 mmHg continuous suction. The Vancomycin and Zosyn have been completed. Continue the Diflucan. He had started HBO treatments for soft tissue radionecrosis and osteomyelitis. This is in preparation for wound closure with a muscle flap. However he was admitted after a fall on his elbow and for weakness and his mother is having difficulty taking care of him. He is being evaluated for placement into an ECF. While at the ECF, we won't be able to continue HBO treatments beause of a cost issue with the ECF. Once he is placed, he will [facility]up [facility] for continued monitoring of his ulcer. I was going to schedule wound closure with a muscle flap after his HBO treatments were completed. Since he won't be doing anymore HBO at the present time, I will schedule his surgery. Since he has acute osteomyelitis, initially will proceed with a partial ostectomy for osteomyelitis. Once we know the organisms, he can be placed on the proper antibiotics and then proceed with the muscle flap. After the muscle flap, he will spend 6 weeks on bedrest. After which I want to continue the HBO tr eatments as long as he is strong enough to go home. His Prealbumin from 10/18/17 was 20.0. He takes nutritional supplementation with protein to help the healing process. Code Visit Inpatient E&M: 37530 Init Hosp L1 - L89.314, M86.151, T66.xxxS, L59.8, A49.02, Z85.048
[2018-01-21] MEDS: DiphenhydrAMINE 25 MG Capsule PO (21:25)
[2018-01-22] VITALS (8 sets, daily range): BP systolic 136–149; BP diastolic 57–72; PULSE 69–85; RESP 15–18; TEMP 36.6–37; O2SAT 94–98
[2018-01-22 05:35] LABS: Absolute Lymphocyte Count 1.36 X10^3/ul (0.83-4.51); Absolute Neutrophil Count 7.7 X10^3/uL (2.0-7.7); Basophil# 0.01 X10^3/uL; Basophil% 0.1 % (0-1); Eosinophil# 0.03 X10^3/uL; Eosinophils% 0.3 % (0-5); Hemoglobin 10.1 g/dl (13.0-16.5); Lymphocyte # 1.36 X10^3/ul (4.0); Lymphocyte % 13.3 % (19-41); Mean Corp Hgb Conc 31.6 g/gl (32-36); Mean Corpuscular Hgb 26.9 pg (27.0-32.0); Mean Corpuscular Volume 85.3 fL (80-94); Mean Platelet Vol. 7.5 fl (6.2-12.0); Monocyte# 1.09 X10^3/uL; Monocyte% 10.6 % (0-10); Neutrophil # 7.69 X10^3/uL (2.7-7.7); Neutrophil % 74.9 % (47-70); Platelet Count 601 K/mm3 (150-450); RBC Distribution Width CV 15.6 % (11.6-14.6); RBC Distribution Width SD 46.7 fl (35.1-43.9); Red Blood Count 3.75 M/mm3 (4.6-6.2); White Blood Count 10.3 K/mm3 (4.4-11.0)
[2018-01-22 05:48] LABS: BUN 25 mg/dL (7-18); BUN/Creat Ratio 38.1 RATIO (10-20); Calcium,Total 8.9 mg/dL (8.5-10.1); Chloride 94 mmol/L (98-107); Creatinine, Serum 0.66 mg/dL (0.70-1.30); EST Glomerular Filtration Rate 130 mL/min (>60); Est Glom Filt Rate - Afr Amer 157 mL/min (>60); Estimated Creatinine Clearance 107.11 ml/min; Glucose 129 mg/dL (74-106); Potassium 4.3 mmol/L (3.5-5.1); Sodium Level 132 mmol/L (136-145)
[2018-01-22 05:49] LABS: Anion Gap 10 (5-15)
[2018-01-22] MEDS: busPIRone 5 MG Tablet PO ×3 (05:50→22:53)
[2018-01-22] MEDS: Ibuprofen 400 MG Tablet 800 MG PO ×3 (05:56→22:55)
[2018-01-22 06:05] LABS: POSITIVE COUNT NO; POSITIVE DIFFERENTIAL NO; POSITIVE MORPHOLOGY NO
[2018-01-22] MEDS: oxyCODONE 5 MG Tablet PO (06:46)
[2018-01-22] MEDS: Ipratropium/Albuterol Sulfate 3 ML AMPUL.NEB INHALATION ×2 (06:58→19:40)
[2018-01-22] MEDS: Aspirin 81 MG TAB.CHEW PO (08:16)
[2018-01-22] MEDS: MethylPREDNISolone DosePak 4 MG BOX PO ×4 (08:17→22:54)
[2018-01-22] MEDS: Iron Polysaccharide Complex 150 MG CAPSULE PO (08:17)
[2018-01-22] MEDS: Fluconazole 100 MG Tablet 400 MG PO (08:18)
[2018-01-22] MEDS: Multivitamins,Therapeutic Tablet 1 TABLET PO (08:18)
[2018-01-22] MEDS: Metoprolol Tartrate 50 MG Tablet PO ×2 (08:19→22:54)
[2018-01-22] MEDS: hydroCHLOROthiazide 12.5mg 12.5 MG PO (08:19)
[2018-01-22] MEDS: Fluticasone 0.05% 1 SPRAY NASAL.SRY 2 SPRAY NASAL ×2 (08:19→22:53)
[2018-01-22] MEDS: Gabapentin 800 MG Tablet PO ×4 (08:20→22:54)
[2018-01-22] MEDS: Enoxaparin 40 MG/0.4 ML Syringe SC (08:20)
--- NOTE | 2018-01-22 09:31 | PCM.PN.HOSP ---
Subjective: Patient seen and examined. He had no complaints overnight. He denies any fever chills, cough or chest pain, any shortness of breath, abdominal pain, any diarrhea vomiting. Review of systems otherwise negative. Plastic surgery on board o/a of wound vac. Labs and vitals reviewed. Vitals/I&O's: Vital Signs Temp Pulse Resp BP Pulse Ox 98.4 F 74 18 136/72 H 98 01/22/18 07:29 01/22/18 08:19 01/22/18 07:29 01/22/18 08:19 01/22/18 07:29 Oxygen Delivery Method Room Air Weight: 165 lb Body Mass Index (BMI) 25.8 Intake and Output for Last 24 Hours 01/20/18 01/21/18 01/22/18 23:59 23:59 23:59 Intake Total 1340 / 1340 800 / 800 900 / 900 Output Total 675 / 675 1800 / 1800 2024 / 2024 Balance 665 / 665 -1000 / -1000 -1125 / -1125 General: Alert, Oriented x3, Cooperative, No apparent distress HEENT: Atraumatic, PERRLA, EOMI, Normocephalic Oral: Moist Mucosa Neck: Supple, No JVD, Negative Carotid Bruits Lungs: Clear to auscultation, Normal air movement, No rhonchi, No wheeze, No rales Cardiovascular: Regular rate, Regular Rhythm, Normal S1, Normal S2, No murmurs Abdomen: Bowel Sounds Present, Soft, Non Tender, Non-Distended, No Hepato-splenomegaly, Extremities: No clubbing, No cyanosis, No edema, Capillary Refill Less than 3 Seconds Skin: - - wound vac in place over right large hip and buttock ulcer; settings adjusted as per orthopedics Musculoskeletal: mild tenderness and swelling over left elbow. Lymphatic: No Cervical, Supraclavicular, or Inguinal Adenopathy Neurological: Cranial nerves II-XII grossly intact Psych/Mental Status: Normal Affect, Appropriate, Alert and oriented to time, place, person, mood and affect Laboratory Results 01/22/18 05:02: WBC 10.3, RBC 3.75 L, Hgb 10.1 L, Hct 32.0 L, MCV 85.3, MCH 26.9 L, MCHC 31.6 L, RDW 15.6 H, RDW Differential 46.7 H, Plt Count 601 H, MPV 7.5, Immature Gran % (Auto) 0.800, Neut % (Auto) 74.9 H, Lymph % (Auto) 13.3 L, [place] % (Auto) 10.6 H, Eos % (Auto) 0.3, Baso % (Auto) 0.1, Absolute Neuts (auto) 7.7, Absolute Lymphs (auto) 1.36, Total Counted Not Reportable 01/22/18 05:02: Sodium 132 L, Potassium 4.3, Chloride 94 L, Carbon Dioxide 28.0, Anion Gap 10, BUN 25 H, Creatinine 0.66 L, Estim Creat Clear Calc 107.11, Est GFR (MDRD) Af Amer 157, Est GFR (MDRD) Non-Af 130, BUN/Creatinine Ratio 38.1 H, Glucose 129 H, Calcium 8.9 Current Medications Al Hydroxide/Mg Hydroxide (Mylanta Ii) 30 ml PO Q6H PRN PRN PRN Reason: Gastric burning Albuterol Sulfate (Ventolin Aerosols) 2.5 mg INHALATION Q2H PRN PRN PRN Reason: dyspnea, wheezing Albuterol/Ipratropium (Duoneb) 3 ml INHALATION Q6HWA.RT [facility] Last Admin: 01/22/18 06:58 Dose: 3 ml Aspirin (Aspirin, Baby) 81 mg PO DAILY@0800 [facility] Last Admin: 01/22/18 08:16 Dose: 81 mg Bupropion HCl (Wellbutrin Xl) 300 mg PO QHS [facility] Last Admin: 01/21/18 20:06 Dose: 300 mg Buspirone HCl (Buspar) 5 mg PO TID [facility] Last Admin: 01/22/18 05:50 Dose: 5 mg Diazepam (Valium) 5 mg PO 4X/DAY PRN PRN PRN Reason: SPASMS Diphenhydramine HCl (Benadryl) 25 mg PO Q6H PRN PRN PRN Reason: ITCHING Last Admin: 01/21/18 21:25 Dose: 25 mg Docusate Sodium (Colace) 100 mg PO BID PRN PRN PRN Reason: Constipation Ezetimibe (Zetia) 10 mg PO QHS [facility] Last Admin: 01/21/18 20:07 Dose: 10 mg Enoxaparin Sodium (Lovenox) 40 mg SC DAILY@1000 [facility] Last Admin: 01/22/18 08:20 Dose: 40 mg Escitalopram Oxalate (Lexapro) 10 mg PO QHS [facility] Last Admin: 01/21/18 20:07 Dose: 10 mg Fluconazole (Diflucan) 400 mg PO DAILY [facility] Last Admin: 01/22/18 08:18 Dose: 400 mg Fluticasone Propionate (Flonase Nasal [place]) 2 spray NASAL BID [facility] Last Admin: 01/22/18 08:19 Dose: 2 spray Gabapentin (Neurontin) 800 mg PO 4X/DAY [facility] Last Admin: 01/22/18 08:20 Dose: 800 mg Hydrochlorothiazide (Hydrochlorothiazide) 12.5 mg PO DAILY [facility] Last Admin: 01/22/18 08:19 Dose: 12.5 mg Ibuprofen (Motrin) 800 mg PO Q8H [facility] Last Admin: 01/22/18 05:56 Dose: 800 mg Loperamide HCl (Imodium) 2 mg PO Q4H PRN PRN PRN Reason: Diarrhea Last Admin: 01/21/18 11:23 Dose: 2 mg Magnesium Hydroxide (Milk Of Magnesia) 30 ml PO DAILY PRN PRN PRN Reason: Constipation Methylprednisolone (Medrol Dosepak) 4 mg PO 0800,1200,1700,2200 [facility]; Taper Stop: 01/25/18 08:59 Last Admin: 01/22/18 08:17 Dose: 4 mg Metoprolol Tartrate (Lopressor (Beta Joo)) 50 mg PO BID [facility] Last Admin: 01/22/18 08:19 Dose: 50 mg Multivitamins (Multivitamin) 1 tablet PO DAILY@0800 [facility] Last Admin: 01/22/18 08:18 Dose: 1 tablet Nutritional Formula (Chuy - [place] Flavor) [facility] Last Admin: 01/22/18 08:17 Dose: 1 packet Ondansetron HCl (Zofran) 4 mg IV Q8H PRN PRN PRN Reason: NAUSEA Oxycodone HCl (Oxyir) 5 - 10 mg PO 4X/DAY PRN PRN PRN Reason: PAIN Last Admin: 01/22/18 06:46 Dose: 10 mg Pantoprazole Sodium (Protonix) 40 mg PO QHS [facility] Last Admin: 01/21/18 20:12 Dose: 40 mg Polysaccharide Iron Complex (Ferrex 150) 150 mg PO DAILYCM [facility] Last Admin: 01/22/18 08:17 Dose: 150 mg Promethazine HCl (Phenergan) 12.5 mg IV Q6H PRN PRN PRN Reason: NAUSEA/VOMITING Sodium Chloride () 5 - 30 ml IV UD PRN PRN Reason: SALINE FLUSH Last Admin: 01/21/18 20:12 Dose: 10 ml Tizanidine HCl (Zanaflex) 4 mg PO Q6H PRN PRN PRN Reason: SPASMS Medical Necessity - Tobacco Use Smoking Status: Former smoker Tobacco Use: Cigarettes Assessment/Plan All Active Problems Methicillin resistant Staphylococcus aureus infection (Acute) Acute osteomyelitis of right pelvic region (Acute) Soft tissue radionecrosis (Acute) Cellulitis and abscess of buttock (Acute) Hyponatremia (Acute) Abscess, gluteal, right (Acute) 1. Generalised debility due to recurrent mechanical falls stable. Fall precautions. PT OT on board. Tylenol for pain. awaiting placement 2. Pressure ulcer of the right glutea and ischial area present on admission stage IV ulceration follows up with Dr Mesa in wound clinic. Wound vac in place Dr Mesa on board 3. LEft elbow contusion due to fall xray done showed soft tissue swelling over olecranon process of proximal ulna and tiny bony densities arising from olecranon process. No effusion seen. This may represent an avulsion fracture or calcific bursitis. orthopedic surgery on board; think its contusion and advocate medical management- weight bear as tolerated, with active and passive extension without resistenace To get platform elbow extension for his walker. on MEdrol dose pack On Tylenol for pain. 4. Chronic hyponatremia; Sodium remains 132. WIll continue to monitor 5. Hypertension: fairly well controlled. On metoprolol, HCTZ and prn hydralazine 6. COPD: PRN duo nebs. incentive spirometer. 7. Hyperlipidemia: On Zetia 8. IBS: On loperamide and Bentyl. 9. Chronic back pain and degenerative joint disease: On Percocet, gabapentin 10. Iron deficiency anemia: Hemoglobin is 910.5 today. Continue iron supplementation. 11. GERD: PPI DVT prophylaxis: Lovenox. Disposition: awaiting placement Code Visit Inpatient E&M: 29606 Subs Hosp L2
--- NOTE | 2018-01-22 09:37 | PN_ITS ---
Subjective: Patient seen and examined. He had no complaints overnight. He denies any fever chills, cough or chest pain, any shortness of breath, abdominal pain, any diarrhea vomiting. Review of systems otherwise negative. Plastic surgery on board o/a of wound vac. Labs and vitals reviewed. Vitals/I&O's: Vital Signs Temp Pulse Resp BP Pulse Ox 98.4 F 74 18 136/72 H 98 01/22/18 07:29 01/22/18 08:19 01/22/18 07:29 01/22/18 08:19 01/22/18 07:29 Oxygen Delivery Method Room Air Weight: 165 lb Body Mass Index (BMI) 25.8 Intake and Output for Last 24 Hours 01/20/18 01/21/18 01/22/18 23:59 23:59 23:59 Intake Total 1340 / 1340 800 / 800 900 / 900 Output Total 675 / 675 1800 / 1800 2024 / 2024 Balance 665 / 665 -1000 / -1000 -1125 / -1125 General: Alert, Oriented x3, Cooperative, No apparent distress HEENT: Atraumatic, PERRLA, EOMI, Normocephalic Oral: Moist Mucosa Neck: Supple, No JVD, Negative Carotid Bruits Lungs: Clear to auscultation, Normal air movement, No rhonchi, No wheeze, No rales Cardiovascular: Regular rate, Regular Rhythm, Normal S1, Normal S2, No murmurs Abdomen: Bowel Sounds Present, Soft, Non Tender, Non-Distended, No Hepato- splenomegaly, Extremities: No clubbing, No cyanosis, No edema, Capillary Refill Less than 3 Seconds Skin: - - wound vac in place over right large hip and buttock ulcer; settings adjusted as per orthopedics Musculoskeletal: mild tenderness and swelling over left elbow. Lymphatic: No Cervical, Supraclavicular, or Inguinal Adenopathy Neurological: Cranial nerves II-XII grossly intact Psych/Mental Status: Normal Affect, Appropriate, Alert and oriented to time, place, person, mood and affect Laboratory Results 01/22/18 05:02: WBC 10.3, RBC 3.75 L, Hgb 10.1 L, Hct 32.0 L, MCV 85.3, MCH 26.9 L, MCHC 31.6 L, RDW 15.6 H, RDW Differential 46.7 H, Plt Count 601 H, MPV 7.5, Immature Gran % (Auto) 0.800, Neut % (Auto) 74.9 H, Lymph % (Auto) 13.3 L, [place] % (Auto) 10.6 H, Eos % (Auto) 0.3, Baso % (Auto) 0.1, Absolute Neuts (auto) 7.7, Absolute Lymphs (auto) 1.36, Total Counted Not Reportable 01/22/18 05:02: Sodium 132 L, Potassium 4.3, Chloride 94 L, Carbon Dioxide 28.0, Anion Gap 10, BUN 25 H, Creatinine 0.66 L, Estim Creat Clear Calc 107.11, Est GFR (MDRD) Af Amer 157, Est GFR (MDRD) Non-Af 130, BUN/Creatinine Ratio 38.1 H, Glucose 129 H, Calcium 8.9 Current Medications Al Hydroxide/Mg Hydroxide (Mylanta Ii) 30 ml PO Q6H PRN PRN PRN Reason: Gastric burning Albuterol Sulfate (Ventolin Aerosols) 2.5 mg INHALATION Q2H PRN PRN PRN Reason: dyspnea, wheezing Albuterol/Ipratropium (Duoneb) 3 ml INHALATION Q6HWA.RT [facility] Last Admin: 01/22/18 06:58 Dose: 3 ml Aspirin (Aspirin, Baby) 81 mg PO DAILY@0800 [facility] Last Admin: 01/22/18 08:16 Dose: 81 mg Bupropion HCl (Wellbutrin Xl) 300 mg PO QHS [facility] Last Admin: 01/21/18 20:06 Dose: 300 mg Buspirone HCl (Buspar) 5 mg PO TID [facility] Last Admin: 01/22/18 05:50 Dose: 5 mg Diazepam (Valium) 5 mg PO 4X/DAY PRN PRN PRN Reason: SPASMS Diphenhydramine HCl (Benadryl) 25 mg PO Q6H PRN PRN PRN Reason: ITCHING Last Admin: 01/21/18 21:25 Dose: 25 mg Docusate Sodium (Colace) 100 mg PO BID PRN PRN PRN Reason: Constipation Ezetimibe (Zetia) 10 mg PO QHS [facility] Last Admin: 01/21/18 20:07 Dose: 10 mg Enoxaparin Sodium (Lovenox) 40 mg SC DAILY@1000 [facility] Last Admin: 01/22/18 08:20 Dose: 40 mg Escitalopram Oxalate (Lexapro) 10 mg PO QHS [facility] Last Admin: 01/21/18 20:07 Dose: 10 mg Fluconazole (Diflucan) 400 mg PO DAILY [facility] Last Admin: 01/22/18 08:18 Dose: 400 mg Fluticasone Propionate (Flonase Nasal [place]) 2 spray NASAL BID [facility] Last Admin: 01/22/18 08:19 Dose: 2 spray Gabapentin (Neurontin) 800 mg PO 4X/DAY [facility] Last Admin: 01/22/18 08:20 Dose: 800 mg Hydrochlorothiazide (Hydrochlorothiazide) 12.5 mg PO DAILY [facility] Last Admin: 01/22/18 08:19 Dose: 12.5 mg Ibuprofen (Motrin) 800 mg PO Q8H [facility] Last Admin: 01/22/18 05:56 Dose: 800 mg Loperamide HCl (Imodium) 2 mg PO Q4H PRN PRN PRN Reason: Diarrhea Last Admin: 01/21/18 11:23 Dose: 2 mg Magnesium Hydroxide (Milk Of Magnesia) 30 ml PO DAILY PRN PRN PRN Reason: Constipation Methylprednisolone (Medrol Dosepak) 4 mg PO 0800,1200,1700,2200 [facility]; Taper Stop: 01/25/18 08:59 Last Admin: 01/22/18 08:17 Dose: 4 mg Metoprolol Tartrate (Lopressor (Beta Joo)) 50 mg PO BID [facility] Last Admin: 01/22/18 08:19 Dose: 50 mg Multivitamins (Multivitamin) 1 tablet PO DAILY@0800 [facility] Last Admin: 01/22/18 08:18 Dose: 1 tablet Nutritional Formula (Chuy - [place] Flavor) [facility] Last Admin: 01/22/18 08:17 Dose: 1 packet Ondansetron HCl (Zofran) 4 mg IV Q8H PRN PRN PRN Reason: NAUSEA Oxycodone HCl (Oxyir) 5 - 10 mg PO 4X/DAY PRN PRN PRN Reason: PAIN Last Admin: 01/22/18 06:46 Dose: 10 mg Pantoprazole Sodium (Protonix) 40 mg PO QHS [facility] Last Admin: 01/21/18 20:12 Dose: 40 mg Polysaccharide Iron Complex (Ferrex 150) 150 mg PO DAILYCM [facility] Last Admin: 01/22/18 08:17 Dose: 150 mg Promethazine HCl (Phenergan) 12.5 mg IV Q6H PRN PRN PRN Reason: NAUSEA/VOMITING Sodium Chloride () 5 - 30 ml IV UD PRN PRN Reason: SALINE FLUSH Last Admin: 01/21/18 20:12 Dose: 10 ml Tizanidine HCl (Zanaflex) 4 mg PO Q6H PRN PRN PRN Reason: SPASMS Medical Necessity - Tobacco Use Smoking Status: Former smoker Tobacco Use: Cigarettes Assessment/Plan All Active Problems Methicillin resistant Staphylococcus aureus infection (Acute) Acute osteomyelitis of right pelvic region (Acute) Soft tissue radionecrosis (Acute) Cellulitis and abscess of buttock (Acute) Hyponatremia (Acute) Abscess, gluteal, right (Acute) 1. Generalised debility due to recurrent mechanical falls * stable. * Fall precautions. PT OT on board. * Tylenol for pain. * awaiting placement * 2. Pressure ulcer of the right glutea and ischial area * present on admission * stage IV ulceration * follows up with Dr Mesa in wound clinic. Wound vac in place * Dr Mesa on board 3. LEft elbow contusion due to fall * xray done showed soft tissue swelling over olecranon process of proximal ulna and tiny bony densities arising from olecranon process. No effusion seen. This may represent an avulsion fracture or calcific bursitis. * orthopedic surgery on board; think its contusion and advocate medical management- weight bear as tolerated, with active and passive extension without resistenace To get platform elbow extension for his walker. * on MEdrol dose pack * On Tylenol for pain. * 4. Chronic hyponatremia; Sodium remains 132. WIll continue to monitor 5. Hypertension: fairly well controlled. On metoprolol, HCTZ and prn hydralazine 6. COPD: PRN duo nebs. incentive spirometer. 7. Hyperlipidemia: On Zetia 8. IBS: On loperamide and Bentyl. 9. Chronic back pain and degenerative joint disease: On Percocet, gabapentin 10. Iron deficiency anemia: Hemoglobin is 910.5 today. Continue iron supplementation. 11. GERD: PPI DVT prophylaxis: Lovenox. Disposition: awaiting placement Code Visit Inpatient E&M: 44515 Subs Hosp L2
[2018-01-22] MEDS: DiphenhydrAMINE 25 MG Capsule PO (09:41)
--- NOTE | 2018-01-22 10:00 | CASEMGMT ---
Social Work: Met with patient in room to discuss SNF preference. Patient choosing [facility] as first choice. TC to Celeste Houston CM support. Celeste to fax referral to [facility]. SW to follow to assist as needed with D/C planning. RONNIE Bose
--- NOTE | 2018-01-22 10:26 | CASEMGMT ---
Per SHAHANA Grier, referral needs sent to [facility]. Voicemail left for Belinda, admissions at [facility]. Referral faxed, confirmation rec'd. Celeste Houston LPN Clinical Support
--- NOTE | 2018-01-22 11:30 | CASEMGMT ---
Received voicemail from Belinda at [facility], they are unable to accept patient. Per SHAHANA Grier, patients second choice is [facility]. Call placed to [facility], spoke with Tala in admissions. There are male beds available per [place]. Referral faxed to [phone], confirmation rec'd. Celeste Houston LPN Clinical Support
[2018-01-22] MEDS: diazePAM 5 MG Tablet PO (12:20)
--- NOTE | 2018-01-22 12:51 | CHAPLAIN ---
Type of Pastoral Visit _x__ Initial Visit ___ Follow-up Visit ___ On-call Visit ___ General Patient Visit ___ Spiritual Assessment ___ Family Conference ___ Bereavement ___ Rapid Response ___ Code Blue ___ Other (describe below) Pastoral Care Referral From _x__ Patient ___ Family ___ Nurse ___ Physician ___ Reducing System Operator ___ Internal Medicine Physician Assistant ___ Other (describe below) Sacrament/Intervention _x__ Active listening ___ Anointing ___ Sikhism ___ Bereavement ___ Communion ___ Becka exploration ___ _x__ Life review _x__ Prayer ___ Reconciliation ___ Sacrament of Sick ___ Supportive presence ___ Wedding ___ Other (describe below) Pastoral Comments patient has had ongoing health issues; pt reports his concern is that his mother cannot assist him when he falls and continue to care for him properly at home;
--- NOTE | 2018-01-22 12:57 | CASEMGMT ---
Received phone call from Tala at [facility]. She was wanting to know if patient would be D/C'd on IV antibiotics. At this point, facility can accept patient. If discharged with IV atb, depending on the cost, they may not be able to accept. Tala was also wanting to know if patient is medicall ready to start pre-cert. Gretel Velazquez SW notified of above. Celeste Houston LPN Clinical Support
--- NOTE | 2018-01-22 14:51 | CASEMGMT ---
Social Work: Spoke with patient's nurse who states that it does not look like patient will be discharged on IV ATB's. Voice mail message left for Tala at [facility] stating that patient will not have IV ATB's at D/C and that precert can be started. Spoke with patient in room. Patient aware that [facility] is unable to accept patient. Patient is aware that [facility] is able to accept patient and will start pre cert. SW to follow to assist with D/C planning. RONNIE Bose
--- NOTE | 2018-01-22 16:01 | NURSING ---
wound photo: right ischium
[2018-01-22] MEDS: Escitalopram Oxalate 10 MG Tablet PO (22:54)
[2018-01-22] MEDS: Pantoprazole Sodium 40 MG Tablet PO (22:54)
[2018-01-22] MEDS: Ezetimibe 10 MG Tablet PO (22:55)
[2018-01-22] MEDS: buPROPion (XL) 300 MG TABLET.XL PO (22:55)
[2018-01-23] VITALS (8 sets, daily range): BP systolic 134–166; BP diastolic 67–84; PULSE 69–79; RESP 16–18; TEMP 36.4–36.6; O2SAT 93–100
[2018-01-23 06:22] LABS: Anion Gap 10 (5-15); BUN 29 mg/dL (7-18); BUN/Creat Ratio 54.5 RATIO (10-20); Chloride 96 mmol/L (98-107); Creatinine, Serum 0.53 mg/dL (0.70-1.30); EST Glomerular Filtration Rate 166 mL/min (>60); Est Glom Filt Rate - Afr Amer 201 mL/min (>60); Estimated Creatinine Clearance 133.38 ml/min; Glucose 102 mg/dL (74-106); Potassium 4.2 mmol/L (3.5-5.1); Sodium Level 135 mmol/L (136-145)
[2018-01-23] MEDS: busPIRone 5 MG Tablet PO ×3 (06:34→21:22)
[2018-01-23] MEDS: Ipratropium/Albuterol Sulfate 3 ML AMPUL.NEB INHALATION ×2 (06:34→19:15)
[2018-01-23] MEDS: Ibuprofen 400 MG Tablet 800 MG PO ×3 (06:35→23:06)
--- NOTE | 2018-01-23 08:08 | CASEMGMT ---
Received phone call from Tala at [facility] [place]. They are able to accept patient, pre-cert has been started. Tala plans to come and visit patient sometime today. Tala will let us know when pre-cert has been obtained. SHAHANA Mcgraw updated of same. Celeste Houston LPN Clinical Support
[2018-01-23] MEDS: oxyCODONE 5 MG Tablet PO ×2 (08:14→23:13)
--- NOTE | 2018-01-23 08:30 | CASEMGMT ---
PT and OT notes from 01/22/18 faxed to Tala at [facility] as requested. Fax confirmation received. Celeste Houston LPN Clinical Support
--- NOTE | 2018-01-23 09:11 | PCA ---
therapy working with pt
--- NOTE | 2018-01-23 09:14 | PCM.PN.HOSP ---
Patient Problems: Active and Suspected Problems Debility (Acute) Subjective: No new complaints. Vitals/I&O's: Vital Signs Temp Pulse Resp BP Pulse Ox 36.4 C L 75 18 134/84 H 96 01/23/18 08:04 01/23/18 08:04 01/23/18 08:04 01/23/18 08:04 01/23/18 08:04 Oxygen Delivery Method Room Air Weight: 74.843 kg Body Mass Index (BMI) 25.8 Intake and Output for Last 24 Hours 01/21/18 01/22/18 01/23/18 23:59 23:59 23:59 Intake Total 800 / 800 2680 / 2680 360 / 360 Output Total 1800 / 1800 2675 / 2675 1225 / 1225 Balance -1000 / -1000 5 / 5 -865 / -865 General: Alert, No apparent distress HEENT: Atraumatic, Normocephalic Oral: Moist Mucosa, No Gingival or Mucosal Lesions/ Ulcerations Neck: No Nodes, Thyroid Normal Size and Texture Lungs: Clear to auscultation, Normal air movement, No rhonchi, No wheeze Cardiovascular: Regular rate, Regular Rhythm, Normal S1, Normal S2 Abdomen: Bowel Sounds Present, Soft, Non Tender, Non-Distended Extremities: No edema, No Calf Tenderness Psych/Mental Status: Normal Affect, Appropriate Laboratory Results 01/23/18 05:25: Sodium 135 L, Potassium 4.2, Chloride 96 L, Carbon Dioxide 29.0, Anion Gap 10, BUN 29 H, Creatinine 0.53 L, Estim Creat Clear Calc 133.38, Est GFR (MDRD) Af Amer 201, Est GFR (MDRD) Non-Af 166, BUN/Creatinine Ratio 54.5 H, Glucose 102, Calcium 9.0 Current Medications Al Hydroxide/Mg Hydroxide (Mylanta Ii) 30 ml PO Q6H PRN PRN PRN Reason: Gastric burning Albuterol Sulfate (Ventolin Aerosols) 2.5 mg INHALATION Q2H PRN PRN PRN Reason: dyspnea, wheezing Albuterol/Ipratropium (Duoneb) 3 ml INHALATION Q6HWA.RT [facility] Last Admin: 01/23/18 06:34 Dose: 3 ml Aspirin (Aspirin, Baby) 81 mg PO DAILY@0800 [facility] Last Admin: 01/22/18 08:16 Dose: 81 mg Bupropion HCl (Wellbutrin Xl) 300 mg PO QHS [facility] Last Admin: 01/22/18 22:55 Dose: 300 mg Buspirone HCl (Buspar) 5 mg PO TID [facility] Last Admin: 01/23/18 06:34 Dose: 5 mg Diazepam (Valium) 5 mg PO 4X/DAY PRN PRN PRN Reason: SPASMS Last Admin: 01/22/18 12:20 Dose: 5 mg Diphenhydramine HCl (Benadryl) 25 mg PO Q6H PRN PRN PRN Reason: ITCHING Last Admin: 01/22/18 09:41 Dose: 25 mg Docusate Sodium (Colace) 100 mg PO BID PRN PRN PRN Reason: Constipation Ezetimibe (Zetia) 10 mg PO QHS [facility] Last Admin: 01/22/18 22:55 Dose: 10 mg Enoxaparin Sodium (Lovenox) 40 mg SC DAILY@1000 [facility] Last Admin: 01/22/18 08:20 Dose: 40 mg Escitalopram Oxalate (Lexapro) 10 mg PO QHS [facility] Last Admin: 01/22/18 22:54 Dose: 10 mg Fluconazole (Diflucan) 400 mg PO DAILY [facility] Last Admin: 01/22/18 08:18 Dose: 400 mg Fluticasone Propionate (Flonase Nasal [place]) 2 spray NASAL BID [facility] Last Admin: 01/22/18 22:53 Dose: 2 spray Gabapentin (Neurontin) 800 mg PO 4X/DAY [facility] Last Admin: 01/22/18 22:54 Dose: 800 mg Hydrochlorothiazide (Hydrochlorothiazide) 12.5 mg PO DAILY [facility] Last Admin: 01/22/18 08:19 Dose: 12.5 mg Ibuprofen (Motrin) 800 mg PO Q8H [facility] Last Admin: 01/23/18 06:35 Dose: 800 mg Loperamide HCl (Imodium) 2 mg PO Q4H PRN PRN PRN Reason: Diarrhea Last Admin: 01/21/18 11:23 Dose: 2 mg Magnesium Hydroxide (Milk Of Magnesia) 30 ml PO DAILY PRN PRN PRN Reason: Constipation Methylprednisolone (Medrol Dosepak) 4 mg PO 0800,1200,2200 [facility]; Taper Stop: 01/25/18 08:59 Last Admin: 01/22/18 22:54 Dose: 4 mg Metoprolol Tartrate (Lopressor (Beta Joo)) 50 mg PO BID [facility] Last Admin: 01/22/18 22:54 Dose: 50 mg Multivitamins (Multivitamin) 1 tablet PO DAILY@0800 [facility] Last Admin: 01/22/18 08:18 Dose: 1 tablet Nutritional Formula (Chuy - [place] Flavor) 1 packet PO BIDCM [facility] Last Admin: 01/22/18 18:04 Dose: 1 packet Ondansetron HCl (Zofran) 4 mg IV Q8H PRN PRN PRN Reason: NAUSEA Oxycodone HCl (Oxyir) 5 - 10 mg PO 4X/DAY PRN PRN PRN Reason: PAIN Last Admin: 01/23/18 08:14 Dose: 10 mg Pantoprazole Sodium (Protonix) 40 mg PO QHS [facility] Last Admin: 01/22/18 22:54 Dose: 40 mg Polysaccharide [facility] ([facility] Last Admin: 01/22/18 08:17 Dose: 150 mg Promethazine HCl (Phenergan) 12.5 mg IV Q6H PRN PRN PRN Reason: NAUSEA/VOMITING Sodium Chloride () 5 - 30 ml IV UD PRN PRN Reason: SALINE FLUSH Last Admin: 01/21/18 20:12 Dose: 10 ml Tizanidine HCl (Zanaflex) 4 mg PO Q6H PRN PRN PRN Reason: SPASMS Medical Necessity - Tobacco Use Smoking Status: Former smoker Tobacco Use: Cigarettes Assessment/Plan All Active Problems Debility (Acute) 1. Debility needs assistance pending placement for precertification 2. right ischial stage 4 ulcer wound vac followup with wound care. reviewed wound care picture from 01/22 3. hyponatremia chronic DC HCTZ monitor 4. DVT proph: LMWH. Code Visit Inpatient E&M: 47080 Subs Hosp L2
--- NOTE | 2018-01-23 09:19 | PN_ITS ---
Patient Problems: Active and Suspected Problems Debility (Acute) Subjective: No new complaints. Vitals/I&O's: Vital Signs Temp Pulse Resp BP Pulse Ox 36.4 C L 75 18 134/84 H 96 01/23/18 08:04 01/23/18 08:04 01/23/18 08:04 01/23/18 08:04 01/23/18 08:04 Oxygen Delivery Method Room Air Weight: 74.843 kg Body Mass Index (BMI) 25.8 Intake and Output for Last 24 Hours 01/21/18 01/22/18 01/23/18 23:59 23:59 23:59 Intake Total 800 / 800 2680 / 2680 360 / 360 Output Total 1800 / 1800 2675 / 2675 1225 / 1225 Balance -1000 / -1000 5 / 5 -865 / -865 General: Alert, No apparent distress HEENT: Atraumatic, Normocephalic Oral: Moist Mucosa, No Gingival or Mucosal Lesions/ Ulcerations Neck: No Nodes, Thyroid Normal Size and Texture Lungs: Clear to auscultation, Normal air movement, No rhonchi, No wheeze Cardiovascular: Regular rate, Regular Rhythm, Normal S1, Normal S2 Abdomen: Bowel Sounds Present, Soft, Non Tender, Non-Distended Extremities: No edema, No Calf Tenderness Psych/Mental Status: Normal Affect, Appropriate Laboratory Results 01/23/18 05:25: Sodium 135 L, Potassium 4.2, Chloride 96 L, Carbon Dioxide 29.0, Anion Gap 10, BUN 29 H, Creatinine 0.53 L, Estim Creat Clear Calc 133.38, Est GFR (MDRD) Af Amer 201, Est GFR (MDRD) Non-Af 166, BUN/Creatinine Ratio 54.5 H, Glucose 102, Calcium 9.0 Current Medications Al Hydroxide/Mg Hydroxide (Mylanta Ii) 30 ml PO Q6H PRN PRN PRN Reason: Gastric burning Albuterol Sulfate (Ventolin Aerosols) 2.5 mg INHALATION Q2H PRN PRN PRN Reason: dyspnea, wheezing Albuterol/Ipratropium (Duoneb) 3 ml INHALATION Q6HWA.RT [facility] Last Admin: 01/23/18 06:34 Dose: 3 ml Aspirin (Aspirin, Baby) 81 mg PO DAILY@0800 [facility] Last Admin: 01/22/18 08:16 Dose: 81 mg Bupropion HCl (Wellbutrin Xl) 300 mg PO QHS [facility] Last Admin: 01/22/18 22:55 Dose: 300 mg Buspirone HCl (Buspar) 5 mg PO TID [facility] Last Admin: 01/23/18 06:34 Dose: 5 mg Diazepam (Valium) 5 mg PO 4X/DAY PRN PRN PRN Reason: SPASMS Last Admin: 01/22/18 12:20 Dose: 5 mg Diphenhydramine HCl (Benadryl) 25 mg PO Q6H PRN PRN PRN Reason: ITCHING Last Admin: 01/22/18 09:41 Dose: 25 mg Docusate Sodium (Colace) 100 mg PO BID PRN PRN PRN Reason: Constipation Ezetimibe (Zetia) 10 mg PO QHS [facility] Last Admin: 01/22/18 22:55 Dose: 10 mg Enoxaparin Sodium (Lovenox) 40 mg SC DAILY@1000 [facility] Last Admin: 01/22/18 08:20 Dose: 40 mg Escitalopram Oxalate (Lexapro) 10 mg PO QHS [facility] Last Admin: 01/22/18 22:54 Dose: 10 mg Fluconazole (Diflucan) 400 mg PO DAILY [facility] Last Admin: 01/22/18 08:18 Dose: 400 mg Fluticasone Propionate (Flonase Nasal [place]) 2 spray NASAL BID [facility] Last Admin: 01/22/18 22:53 Dose: 2 spray Gabapentin (Neurontin) 800 mg PO 4X/DAY [facility] Last Admin: 01/22/18 22:54 Dose: 800 mg Hydrochlorothiazide (Hydrochlorothiazide) 12.5 mg PO DAILY [facility] Last Admin: 01/22/18 08:19 Dose: 12.5 mg Ibuprofen (Motrin) 800 mg PO Q8H [facility] Last Admin: 01/23/18 06:35 Dose: 800 mg Loperamide HCl (Imodium) 2 mg PO Q4H PRN PRN PRN Reason: Diarrhea Last Admin: 01/21/18 11:23 Dose: 2 mg Magnesium Hydroxide (Milk Of Magnesia) 30 ml PO DAILY PRN PRN PRN Reason: Constipation Methylprednisolone (Medrol Dosepak) 4 mg PO 0800,1200,2200 [facility]; Taper Stop: 01/25/18 08:59 Last Admin: 01/22/18 22:54 Dose: 4 mg Metoprolol Tartrate (Lopressor (Beta Joo)) 50 mg PO BID [facility] Last Admin: 01/22/18 22:54 Dose: 50 mg Multivitamins (Multivitamin) 1 tablet PO DAILY@0800 [facility] Last Admin: 01/22/18 08:18 Dose: 1 tablet Nutritional Formula (Chuy - [place] Flavor) 1 packet PO BIDCM [facility] Last Admin: 01/22/18 18:04 Dose: 1 packet Ondansetron HCl (Zofran) 4 mg IV Q8H PRN PRN PRN Reason: NAUSEA Oxycodone HCl (Oxyir) 5 - 10 mg PO 4X/DAY PRN PRN PRN Reason: PAIN Last Admin: 01/23/18 08:14 Dose: 10 mg Pantoprazole Sodium (Protonix) 40 mg PO QHS [facility] Last Admin: 01/22/18 22:54 Dose: 40 mg Polysaccharide Iron Complex (Ferrex 150) 150 mg PO DAILYCM [facility] Last Admin: 01/22/18 08:17 Dose: 150 mg Promethazine HCl (Phenergan) 12.5 mg IV Q6H PRN PRN PRN Reason: NAUSEA/VOMITING Sodium Chloride () 5 - 30 ml IV UD PRN PRN Reason: SALINE FLUSH Last Admin: 01/21/18 20:12 Dose: 10 ml Tizanidine HCl (Zanaflex) 4 mg PO Q6H PRN PRN PRN Reason: SPASMS Medical Necessity - Tobacco Use Smoking Status: Former smoker Tobacco Use: Cigarettes Assessment/Plan All Active Problems Debility (Acute) 1. Debility * needs assistance * pending placement for precertification 2. right ischial stage 4 ulcer * wound vac * followup with wound care. * reviewed wound care picture from 01/22 3. hyponatremia * chronic * DC HCTZ * monitor 4. DVT proph: LMWH. Code Visit Inpatient E&M: 65291 Subs Hosp L2
[2018-01-23] MEDS: Aspirin 81 MG TAB.CHEW PO (09:28)
[2018-01-23] MEDS: Iron Polysaccharide Complex 150 MG CAPSULE PO (09:29)
[2018-01-23] MEDS: MethylPREDNISolone DosePak 4 MG BOX PO ×3 (09:29→21:22)
[2018-01-23] MEDS: Multivitamins,Therapeutic Tablet 1 TABLET PO (09:30)
[2018-01-23] MEDS: Fluconazole 100 MG Tablet 400 MG PO (09:30)
[2018-01-23] MEDS: Metoprolol Tartrate 50 MG Tablet PO ×2 (09:31→21:22)
--- NOTE | 2018-01-23 09:31 | PCM.TXEXTCAR ---
- Diet 01/20/18 16:31 Diet: Regular Diet Is pt able to select menu?: Yes - Routine Orders/Code Status Routine Lab Work: CBC - every Monday, BMP - every Monday Code Status: Full Code - Wound(s) Right Ischial Wound Type: Pressure Injury Dressing Change: KCI wound VAC Right elbow Wound Type: scab - Suggestions for Active Care Change Position every (hours): 2 - Therapies Weight Bearing: Non weight bearing Extremity Affected:: Right Lower Physical Therapy: Eval and Treat Occupational Therapy: Eval and Treat - Allergies/Procedures Done in Hospital Allergies/Adverse Reactions: Allergies povidone-iodine [From Betadine] Allergy (Verified 01/19/18 13:50) Hives [id number]-Nnd Reductase Inhibitor Adverse Reaction (Verified 01/19/18 13:50) MESSED MY LIVER UP adhesive tape Allergy (Uncoded 01/19/18 13:50) Itching/rash - Type of Care/Length of Stay Estimated LOS: Convalescent Care Less Than 30 days Type of Care Needed: Skilled Rehab Potential: Fair Prognosis: Fair - Additional Orders/Day of Discharge Day of Discharge: 01/23/18 - Follow Up Care Primary Care Physician: Winnie Gonzales MD [Primary Care Provider] - Within 2 Weeks Please Follow Up With: Venkat Mesa MD When: 2 weeks
[2018-01-23] MEDS: Enoxaparin 40 MG/0.4 ML Syringe SC (09:32)
[2018-01-23] MEDS: Fluticasone 0.05% 1 SPRAY NASAL.SRY 2 SPRAY NASAL (09:32)
[2018-01-23] MEDS: Gabapentin 800 MG Tablet PO ×4 (09:32→21:22)
--- NOTE | 2018-01-23 09:34 | TREXTCAR_ITS ---
- Diet 01/20/18 16:31 Diet: Regular Diet Is pt able to select menu?: Yes - Routine Orders/Code Status Routine Lab Work: CBC - every Monday, BMP - every Monday Code Status: Full Code - Wound(s) Right Ischial Wound Type: Pressure Injury Dressing Change: KCI wound VAC Right elbow Wound Type: scab - Suggestions for Active Care Change Position every (hours): 2 - Therapies Weight Bearing: Non weight bearing Extremity Affected:: Right Lower Physical Therapy: Eval and Treat Occupational Therapy: Eval and Treat - Allergies/Procedures Done in Hospital Allergies/Adverse Reactions: Allergies povidone-iodine [From Betadine] Allergy (Verified 01/19/18 13:50) Hives Susvjqv-Frc-Gov Reductase Inhibitor Adverse Reaction (Verified 01/19/18 13:50) MESSED MY LIVER UP adhesive tape Allergy (Uncoded 01/19/18 13:50) Itching/rash - Type of Care/Length of Stay Estimated LOS: Convalescent Care Less Than 30 days Type of Care Needed: Skilled Rehab Potential: Fair Prognosis: Fair - Additional Orders/Day of Discharge Day of Discharge: 01/23/18 - Follow Up Care Primary Care Physician: Winnie Gonzales MD [Primary Care Provider] - Within 2 Weeks Please Follow Up With: Venkat Mesa MD When: 2 weeks
--- NOTE | 2018-01-23 09:36 | PCM.DC.SUM ---
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) Anal cancer (Chronic) Hepatitis C carrier (Chronic) COPD (chronic obstructive pulmonary disease) (Chronic) Anxiety and depression (Chronic) HTN (hypertension) (Chronic) HLD (hyperlipidemia) (Chronic) GERD (gastroesophageal reflux disease) (Chronic) PAD (peripheral artery disease) (Chronic) Hyponatremia (Chronic) suspected to be from water drinking Hospital Course and Treatment Imaging Results: Clinical Impression(s) from Imaging Studies Elbow X-Ray 01/19/18 14:14 IMPRESSION: Soft tissue swelling is seen overlying the olecranon process of the proximal ulna with a small bony densities as described. This may represent either avulsion fracture or calcific bursitis. Electronically Signed: Aayush Ibarra MD at 15:06 EST Tel [phone], Service support , Consultations 01/19/18 18:54 Consult: Onc/Wound/cement gun operator Routine Comment: Venkat Mesa, PRS Kevin De León, orthopaedics. Operations: None, - Procedures: None Summary of Care Provided: The patient is a 62 year old M presents with weakness and fall. 1. Debility needs assistance pending placement for precertification 2. right ischial stage 4 ulcer wound vac followup with wound care. reviewed wound care picture from 01/22 to continue on diflucan for PRS 3. hyponatremia chronic DC HCTZ monitor 4. Left elbow contusion: strain with calcific tendinitis medrol dose pack follow up with ortho in 2 weeks. [] Patient Problems: Active and Suspected Problems Debility (Acute) - Physical Exam Vital Signs Temp Pulse Resp BP Pulse Ox 36.4 C L 75 18 134/84 H 96 01/23/18 08:04 01/23/18 09:31 01/23/18 08:04 01/23/18 09:31 01/23/18 08:04 Oxygen Delivery Method Room Air Weight: 74.843 kg Body Mass Index (BMI) 25.8 Intake and Output for Last 24 Hours 01/21/18 01/22/18 01/23/18 23:59 23:59 23:59 Intake Total 800 / 800 2680 / 2680 360 / 360 Output Total 1800 / 1800 2675 / 2675 1225 / 1225 Balance -1000 / -1000 5 / 5 -865 / -865 Laboratory Tests Past 24 Hrs 01/23/18 05:25 Sodium 135 L Potassium 4.2 Chloride 96 L Carbon Dioxide 29.0 Anion Gap 10 BUN 29 H Creatinine 0.53 L Estim Creat Clear Calc 133.38 Est GFR (MDRD) Af Amer 201 Est GFR (MDRD) Non-Af 166 BUN/Creatinine Ratio 54.5 H Glucose 102 Calcium 9.0 Discharge Diet: No Restrictions Discharge Activity: - - NWB RLE Home Medications: Medications to take at Discharge Aspirin [Aspirin, Baby] 81 mg PO DAILY@0800 03/22/16 Escitalopram Oxalate [Lexapro] 10 mg PO QHS 03/22/16 Ezetimibe [Zetia] 10 mg PO QHS 03/22/16 Fluticasone 0.05% [Flonase Nasal [place]] 2 spray NASAL BID 03/22/16 Multivitamin [Multiple Vitamins] 1 each PO DAILY 03/22/16 Omeprazole [Prilosec] 40 mg PO QHS 03/22/16 buPROPion XL [Wellbutrin Xl] 300 mg PO QHS 03/22/16 busPIRone [Buspar] 5 mg PO TID 03/22/16 Tiotropium [place] [Spiriva Respimat] 2 puff INHALATION DAILY 10/20/16 Cholecalciferol (Vitamin D3) [Vitamin D3] 1,000 unit PO DAILY 12/09/16 Tizanidine HCl [Zanaflex] 4 mg PO Q6H PRN PRN 12/27/16 DiphenhydrAMINE [Benadryl] 25 mg PO Q6H PRN capsule 06/14/17 Loperamide [Imodium] 2 mg PO Q4H PRN PRN capsule 06/14/17 Docusate Sodium [Colace] 100 mg PO PRN PRN 10/16/17 Nutritional Supplement [Chuy - [place] FLAVOR] 1 packet PO BIDCM 10/16/17 Iron Polysaccharide Complex [Ferrex 150] 150 mg PO DAILYCM capsule 10/20/17 Oxycodone HCl/Acetaminophen [Percocet 5-325] 1 - 2 tab PO 4X/DAY PRN PRN 5 Days #40 tab 10/20/17 proMETHazine tablet [Phenergan tablet] 25 mg PO Q4H PRN PRN tablet 10/20/17 Fluconazole [Diflucan] 400 mg PO DAILY 01/19/18 Gabapentin [Neurontin] 800 mg PO 4X/DAY 01/19/18 Metoprolol Tartrate [Lopressor (beta curt)] 50 ng PO BID 01/19/18 Bran/Gum/Fib/Cony/Psyl/Kelp/Pec [Fiber 6 Tablet] 2,000 mg PO ACHS 01/20/18 Diphenoxylate/Atrop [Lomotil] 2 tab PO 4X/DAY PRN PRN 01/20/18 Diazepam [Valium] 5 mg PO BID PRN #6 tab 01/23/18 Enoxaparin [Lovenox] 40 mg SC DAILY@1000 syringe 01/23/18 Ibuprofen [Ibu] 800 mg PO TID PRN #0 01/23/18 Oxycodone [Oxyir] 5 mg PO Q6H PRN PRN 3 Days #12 tab 01/23/18 Following Prescrptions Were Given to Patient: Oxycodone [Oxyir] 5 mg PO Q6H PRN PRN 3 Days #12 tab PRN Reason: Pain Diazepam [Valium] 5 mg PO BID PRN #6 tab PRN Reason: Spasms Primary Care Physician: Winnie Gonzales MD [Primary Care Provider] - Within 2 Weeks Please Follow Up With: Venkat Mesa MD When: 2 weeks Please Follow Up With: Hank De León MD When: 2 weeks Medical Necessity - Tobacco Use Smoking Status: Former smoker Tobacco Use: Cigarettes Meaningful Use Info Meaningful Use Diagnoses (Choose all that apply): None applicable Code Visit Inpatient E&M: 41505 Disch Hosp
--- NOTE | 2018-01-23 09:40 | DS.PCM_ITS ---
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) Anal cancer (Chronic) Hepatitis C carrier (Chronic) COPD (chronic obstructive pulmonary disease) (Chronic) Anxiety and depression (Chronic) HTN (hypertension) (Chronic) HLD (hyperlipidemia) (Chronic) GERD (gastroesophageal reflux disease) (Chronic) PAD (peripheral artery disease) (Chronic) Hyponatremia (Chronic) suspected to be from water drinking Hospital Course and Treatment Imaging Results: Clinical Impression(s) from Imaging Studies Elbow X-Ray 01/19/18 14:14 IMPRESSION: Soft tissue swelling is seen overlying the olecranon process of the proximal ulna with a small bony densities as described. This may represent either avulsion fracture or calcific bursitis. Electronically Signed: Aayush Ibarra MD at 15:06 EST Tel [phone], Service support , Consultations 01/19/18 18:54 Consult: Onc/Wound/safe deposit box rental clerk Routine Comment: Venkat Mesa, PRS Kevin De León, orthopaedics. Operations: None, - Procedures: None Summary of Care Provided: The patient is a 62 year old M presents with weakness and fall. 1. Debility * needs assistance * pending placement for precertification 2. right ischial stage 4 ulcer * wound vac * followup with wound care. * reviewed wound care picture from 01/22 * to continue on diflucan for PRS 3. hyponatremia * chronic * DC HCTZ * monitor 4. Left elbow contusion: * strain with calcific tendinitis * medrol dose pack * follow up with ortho in 2 weeks. [] Patient Problems: Active and Suspected Problems Debility (Acute) - Physical Exam Vital Signs Temp Pulse Resp BP Pulse Ox 36.4 C L 75 18 134/84 H 96 01/23/18 08:04 01/23/18 09:31 01/23/18 08:04 01/23/18 09:31 01/23/18 08:04 Oxygen Delivery Method Room Air Weight: 74.843 kg Body Mass Index (BMI) 25.8 Intake and Output for Last 24 Hours 01/21/18 01/22/18 01/23/18 23:59 23:59 23:59 Intake Total 800 / 800 2680 / 2680 360 / 360 Output Total 1800 / 1800 2675 / 2675 1225 / 1225 Balance -1000 / -1000 5 / 5 -865 / -865 Laboratory Tests Past 24 Hrs 01/23/18 05:25 Sodium 135 L Potassium 4.2 Chloride 96 L Carbon Dioxide 29.0 Anion Gap 10 BUN 29 H Creatinine 0.53 L Estim Creat Clear Calc 133.38 Est GFR (MDRD) Af Amer 201 Est GFR (MDRD) Non-Af 166 BUN/Creatinine Ratio 54.5 H Glucose 102 Calcium 9.0 Discharge Diet: No Restrictions Discharge Activity: - - NWB RLE Home Medications: Medications to take at Discharge Aspirin [Aspirin, Baby] 81 mg PO DAILY@0800 03/22/16 Escitalopram Oxalate [Lexapro] 10 mg PO QHS 03/22/16 Ezetimibe [Zetia] 10 mg PO QHS 03/22/16 Fluticasone 0.05% [Flonase Nasal [place]] 2 spray NASAL BID 03/22/16 Multivitamin [Multiple Vitamins] 1 each PO DAILY 03/22/16 Omeprazole [Prilosec] 40 mg PO QHS 03/22/16 buPROPion XL [Wellbutrin Xl] 300 mg PO QHS 03/22/16 busPIRone [Buspar] 5 mg PO TID 03/22/16 Tiotropium [place] [Spiriva Respimat] 2 puff INHALATION DAILY 10/20/16 Cholecalciferol (Vitamin D3) [Vitamin D3] 1,000 unit PO DAILY 12/09/16 Tizanidine HCl [Zanaflex] 4 mg PO Q6H PRN PRN 12/27/16 DiphenhydrAMINE [Benadryl] 25 mg PO Q6H PRN capsule 06/14/17 Loperamide [Imodium] 2 mg PO Q4H PRN PRN capsule 06/14/17 Docusate Sodium [Colace] 100 mg PO PRN PRN 10/16/17 Nutritional Supplement [Chuy - [place] FLAVOR] 1 packet PO BIDCM 10/16/17 Iron Polysaccharide Complex [Ferrex 150] 150 mg PO DAILYCM capsule 10/20/17 Oxycodone HCl/Acetaminophen [Percocet 5-325] 1 - 2 tab PO 4X/DAY PRN PRN 5 Days #40 tab 10/20/17 proMETHazine tablet [Phenergan tablet] 25 mg PO Q4H PRN PRN tablet 10/20/17 Fluconazole [Diflucan] 400 mg PO DAILY 01/19/18 Gabapentin [Neurontin] 800 mg PO 4X/DAY 01/19/18 Metoprolol Tartrate [Lopressor (beta curt)] 50 ng PO BID 01/19/18 Bran/Gum/Fib/Cony/Psyl/Kelp/Pec [Fiber 6 Tablet] 2,000 mg PO ACHS 01/20/18 Diphenoxylate/Atrop [Lomotil] 2 tab PO 4X/DAY PRN PRN 01/20/18 Diazepam [Valium] 5 mg PO BID PRN #6 tab 01/23/18 Enoxaparin [Lovenox] 40 mg SC DAILY@1000 syringe 01/23/18 Ibuprofen [Ibu] 800 mg PO TID PRN #0 01/23/18 Oxycodone [Oxyir] 5 mg PO Q6H PRN PRN 3 Days #12 tab 01/23/18 Following Prescrptions Were Given to Patient: Oxycodone [Oxyir] 5 mg PO Q6H PRN PRN 3 Days #12 tab PRN Reason: Pain Diazepam [Valium] 5 mg PO BID PRN #6 tab PRN Reason: Spasms Primary Care Physician: Winnie Gonzales MD [Primary Care Provider] - Within 2 Weeks Please Follow Up With: Venkat Mesa MD When: 2 weeks Please Follow Up With: Hank De León MD When: 2 weeks Medical Necessity - Tobacco Use Smoking Status: Former smoker Tobacco Use: Cigarettes Meaningful Use Info Meaningful Use Diagnoses (Choose all that apply): None applicable Code Visit Inpatient E&M: 22819 Disch Hosp
--- NOTE | 2018-01-23 13:22 | NURSING ---
RUBEN Almanza stated she reinforced the VAC dressing twice this am. Pt tends to pick at the drape. pt is currently sitting up in chair finishing with his lunch. Good seal noted at this time at 150mmHg low continuous suction. Pt will most likely be discharged to the [facility] tomorrow.
[2018-01-23] MEDS: Loperamide 2 MG Capsule PO (14:40)
--- NOTE | 2018-01-23 20:25 | NURSING ---
Pt's wound vac began to leak and start beeping. This RN attempted to reinforce seal on wound vac but wound vac continued to beep. Pt began to scream at this RN, stating You don't know what you're doing! If you did you wouldn't have cut the dressing how you did and it wouldn't be beeping! This RN tried to calm pt down and explain that I was trying to just reinforce and reset the wound vac but pt still very upset. Explained that I would go get help and see if RUBEN Edgar would be able to help us. This RN stepped out of room to speak with RUBEN Edgar, and when this RN went back into room, the wound vac seal was intact and the wound vac was running properly again. Pt now calmer. Will continue to monitor.
[2018-01-23] MEDS: Escitalopram Oxalate 10 MG Tablet PO (21:22)
[2018-01-23] MEDS: Ezetimibe 10 MG Tablet PO (21:23)
[2018-01-23] MEDS: Pantoprazole Sodium 40 MG Tablet PO (21:23)
[2018-01-23] MEDS: buPROPion (XL) 300 MG TABLET.XL PO (21:23)
--- NOTE | 2018-01-23 21:37 | NURSING ---
Walked into pt's room to do his night time meds and his wound vac was turned off. Asked pt if he had touched it and he said that he turned it off because it started beeping again and he was tired of listening to it. Pt agreed to have RUBEN Edgar try to to reinforce it again and if that didn't work then pt stated he wants a wet-to-dry dressing instead. RUBEN Edgar reinforced wound vac and the seal is now intact with suction at 150. will continue to monitor. Instructed pt that if wound vac beeps again then he is to call for help and not touch the machine or turn it off.
[2018-01-23] MEDS: 0.9% NaCl Peripheral Flush Adult/Peds IV (23:09)
[2018-01-24 02:19] VITALS: BP 153/71; PULSE 65; RESP 18; TEMP 36.6; O2SAT 96
[2018-01-24] MEDS: busPIRone 5 MG Tablet PO ×2 (06:05→13:14)
[2018-01-24] MEDS: Ibuprofen 400 MG Tablet 800 MG PO (06:05)
[2018-01-24 06:18] LABS: Anion Gap 9 (5-15); BUN 26 mg/dL (7-18); BUN/Creat Ratio 47.4 RATIO (10-20); Calcium,Total 8.8 mg/dL (8.5-10.1); Chloride 99 mmol/L (98-107); Creatinine, Serum 0.55 mg/dL (0.70-1.30); EST Glomerular Filtration Rate 160 mL/min (>60); Est Glom Filt Rate - Afr Amer 193 mL/min (>60); Estimated Creatinine Clearance 128.53 ml/min; Glucose 100 mg/dL (74-106); Potassium 4.5 mmol/L (3.5-5.1); Sodium Level 136 mmol/L (136-145)
[2018-01-24 07:02] VITALS: PULSE 70; RESP 18; O2SAT 92
[2018-01-24] MEDS: Ipratropium/Albuterol Sulfate 3 ML AMPUL.NEB INHALATION (07:02)
[2018-01-24] MEDS: Iron Polysaccharide Complex 150 MG CAPSULE PO (08:04)
[2018-01-24] MEDS: Multivitamins,Therapeutic Tablet 1 TABLET PO (08:04)
[2018-01-24] MEDS: MethylPREDNISolone DosePak 4 MG BOX PO (08:04)
[2018-01-24] MEDS: Fluticasone 0.05% 1 SPRAY NASAL.SRY 2 SPRAY NASAL (08:05)
[2018-01-24] MEDS: Fluconazole 100 MG Tablet 400 MG PO (08:05)
[2018-01-24] MEDS: Aspirin 81 MG TAB.CHEW PO (08:05)
[2018-01-24 08:06] VITALS: PULSE 74
[2018-01-24] MEDS: Enoxaparin 40 MG/0.4 ML Syringe SC (08:06)
[2018-01-24] MEDS: Metoprolol Tartrate 50 MG Tablet PO (08:06)
[2018-01-24] MEDS: Gabapentin 800 MG Tablet PO ×2 (08:07→13:14)
[2018-01-24] MEDS: oxyCODONE 5 MG Tablet PO (08:09)
[2018-01-24 08:15] VITALS: BP 105/57; PULSE 77; RESP 16; TEMP 36.4; O2SAT 98
--- NOTE | 2018-01-24 09:20 | PN_ITS ---
Patient Problems: Active and Suspected Problems Debility (Acute) Subjective: No new complaints. Awaiting on precertification for disposition to SNF. Vitals/I&O's: Vital Signs Temp Pulse Resp BP Pulse Ox 36.4 C L 77 16 105/57 L 98 01/24/18 08:15 01/24/18 08:15 01/24/18 08:15 01/24/18 08:15 01/24/18 08:15 Oxygen Delivery Method Room Air Weight: 74.843 kg Body Mass Index (BMI) 25.8 Intake and Output for Last 24 Hours 01/22/18 01/23/18 01/24/18 23:59 23:59 23:59 Intake Total 2680 / 2680 2280 / 2280 440 / 440 Output Total 2675 / 2675 1425 / 1425 1100 / 1100 Balance 855 / 855 -660 / -660 General: Alert, No apparent distress HEENT: Atraumatic, Normocephalic Oral: Moist Mucosa, No Gingival or Mucosal Lesions/ Ulcerations Neck: No Nodes, Thyroid Normal Size and Texture Lungs: Clear to auscultation, Normal air movement, No rhonchi, No wheeze Cardiovascular: Regular rate, Regular Rhythm, Normal S1, Normal S2, No murmurs Abdomen: Bowel Sounds Present, Soft, Non Tender, Non-Distended, No Hepato- splenomegaly Extremities: No edema, No Calf Tenderness Psych/Mental Status: Normal Affect, Appropriate Laboratory Results 01/24/18 05:20: Sodium 136, Potassium 4.5, Chloride 99, Carbon Dioxide 28.0, Anion Gap 9, BUN 26 H, Creatinine 0.55 L, Estim Creat Clear Calc 128.53, Est GFR (MDRD) Af Amer 193, Est GFR (MDRD) Non-Af 160, BUN/Creatinine Ratio 47.4 H, G lucose 100, Calcium 8.8 Current Medications Al Hydroxide/Mg Hydroxide (Mylanta Ii) 30 ml PO Q6H PRN PRN PRN Reason: Gastric burning Albuterol Sulfate (Ventolin Aerosols) 2.5 mg INHALATION Q2H PRN PRN PRN Reason: dyspnea, wheezing Albuterol/Ipratropium (Duoneb) 3 ml INHALATION Q6HWA.RT DHARA Last Admin: 01/24/18 07:02 Dose: 3 ml Aspirin (Aspirin, Baby) 81 mg PO DAILY@0800 [facility] Last Admin: 01/24/18 08:05 Dose: 81 mg Bupropion HCl (Wellbutrin Xl) 300 mg PO QHS [facility] Last Admin: 01/23/18 21:23 Dose: 300 mg Buspirone HCl (Buspar) 5 mg PO TID [facility] Last Admin: 01/24/18 06:05 Dose: 5 mg Diazepam (Valium) 5 mg PO 4X/DAY PRN PRN PRN Reason: SPASMS Last Admin: 01/22/18 12:20 Dose: 5 mg Diphenhydramine HCl (Benadryl) 25 mg PO Q6H PRN PRN PRN Reason: ITCHING Last Admin: 01/22/18 09:41 Dose: 25 mg Docusate Sodium (Colace) 100 mg PO BID PRN PRN PRN Reason: Constipation Ezetimibe (Zetia) 10 mg PO QHS [facility] Last Admin: 01/23/18 21:23 Dose: 10 mg Enoxaparin Sodium (Lovenox) 40 mg SC DAILY@1000 [facility] Last Admin: 01/24/18 08:06 Dose: 40 mg Escitalopram Oxalate (Lexapro) 10 mg PO QHS [facility] Last Admin: 01/23/18 21:22 Dose: 10 mg Fluconazole (Diflucan) 400 mg PO DAILY [facility] Last Admin: 01/24/18 08:05 Dose: 400 mg Fluticasone Propionate (Flonase Nasal [place]) 2 spray NASAL BID [facility] Last Admin: 01/24/18 08:05 Dose: 2 spray Gabapentin (Neurontin) 800 mg PO 4X/DAY [facility] Last Admin: 01/24/18 08:07 Dose: 800 mg Ibuprofen (Motrin) 800 mg PO Q8H [facility] Last Admin: 01/24/18 06:05 Dose: 800 mg Loperamide HCl (Imodium) 2 mg PO Q4H PRN PRN PRN Reason: Diarrhea Last Admin: 01/23/18 14:40 Dose: 2 mg Magnesium Hydroxide (Milk Of Magnesia) 30 ml PO DAILY PRN PRN PRN Reason: Constipation Methylprednisolone (Medrol Dosepak) 4 mg PO 0800,2200 [facility]; Taper Stop: 01/25/18 08:59 Last Admin: 01/24/18 08:04 Dose: 4 mg Metoprolol Tartrate (Lopressor (Beta Joo)) 50 mg PO BID [facility] Last Admin: 01/24/18 08:06 Dose: 50 mg Multivitamins (Multivitamin) 1 tablet PO DAILY@0800 [facility] Last Admin: 01/24/18 08:04 Dose: 1 tablet Nutritional Formula (Chuy - [place] Flavor) 1 packet PO BIDCM [facility] Last Admin: 01/24/18 08:05 Dose: 1 packet Ondansetron HCl (Zofran) 4 mg IV Q8H PRN PRN PRN Reason: NAUSEA Oxycodone HCl (Oxyir) 5 - 10 mg PO 4X/DAY PRN PRN PRN Reason: PAIN Last Admin: 01/24/18 08:09 Dose: 10 mg Pantoprazole Sodium (Protonix) 40 mg PO QHS [facility] Last Admin: 01/23/18 21:23 Dose: 40 mg Polysaccharide Iron Complex (Ferrex 150) 150 mg PO DAILYCM [facility] Last Admin: 01/24/18 08:04 Dose: 150 mg Promethazine HCl (Phenergan) 12.5 mg IV Q6H PRN PRN PRN Reason: NAUSEA/VOMITING Sodium Chloride () 5 - 30 ml IV UD PRN PRN Reason: SALINE FLUSH Last Admin: 01/23/18 23:09 Dose: 10 ml Tizanidine HCl (Zanaflex) 4 mg PO Q6H PRN PRN PRN Reason: SPASMS Medical Necessity - Tobacco Use Smoking Status: Former smoker Tobacco Use: Cigarettes Assessment/Plan All Active Problems Debility (Acute) 1. Debility * needs assistance * pending placement for precertification 2. right ischial stage 4 ulcer * wound vac * followup with wound care. * reviewed wound care picture from 01/22 3. hyponatremia * chronic * DC HCTZ * monitor 4. DVT proph: LMWH. Code Visit Inpatient E&M: 66873 Subs Hosp L2
--- NOTE | 2018-01-24 10:09 | CASEMGMT ---
Addendum entered by Dorene Gordon 01/24/18 12:07: SW did let pt know will be picked up at 2pm. RONNIE Blair, GL ACCOUNTANT Original Note: Addendum entered by Dorene Gordon 01/24/18 10:50: SW completed PAS/RR in the [employer] system, faxed this with results and all discharge instructions to [facility]. SW spoke w/pt, let him know insurance has approved him to go to [facility] today. Pt does not have a preference for transport company. SW set up a 2pm wc van(pt's preference[place] with [facility] SW let Tala at [facility] and RN know the time. Pt called his mother, does not need SW to call anyone else to let him know he is discharged. Pt in restroom now, RN will let pt know the pickup time. No further needs, pt to [facility] today. RONNIE Blair, GL ACCOUNTANT Original Note: SW called [facility] to check on precert. SW called to speak w/admissions, put on hold SW spoke w/Lynette, she paged Deborah. Deborah states SW to speak w/Tala, put SW in touch w/Tala. SW spoke w/Tala, precert attained, they can take pt this afternoon. SW will set up transport and fax orders shortly. RONNIE Blair, GL ACCOUNTANT
[2018-01-24 13:23] VITALS: BP 148/87; PULSE 73; RESP 16; TEMP 36.3; O2SAT 93
== END 2018-01-24 14:13 ==
LOC: ED 14:30 → MS2 18:29
PROVIDERS: Student in an Organized Health Care Education/Training Program; Admitting Provider Family Medicine; Emergency Provider Emergency Medicine; Family Provider Internal Medicine; PCP Internal Medicine
DX: R53.81 Other malaise (principal); R53.1 Weakness; L89.214 Pressure ulcer of right hip, stage 4; M65.28 Calcific tendinitis, other site; S50.02XA Contusion of left elbow, initial encounter; Y93.89 Activity, other specified; K21.9 Gastro-esophageal reflux disease without esophagitis; E78.5 Hyperlipidemia, unspecified; I10 Essential (primary) hypertension; F41.9 Anxiety disorder, unspecified; F32.9 Major depressive disorder, single episode, unspecified; I73.9 Peripheral vascular disease, unspecified; B18.2 Chronic viral hepatitis C; J44.9 Chronic obstructive pulmonary disease, unspecified; W19.XXXA Unspecified fall, initial encounter; Z91.81 History of falling; Z86.14 Personal history of Methicillin resistant Staphylococcus aureus infection; Z79.899 Other long term (current) drug therapy; Z79.82 Long term (current) use of aspirin; Z85.048 Personal history of other malignant neoplasm of rectum, rectosigmoid junction, and anus; Z87.891 Personal history of nicotine dependence; E87.1 Hypo-osmolality and hyponatremia; L59.8 Other specified disorders of the skin and subcutaneous tissue related to radiation; Y84.2 Radiological procedure and radiotherapy as the cause of abnormal reaction of the patient, or of later complication, without mention of misadventure at the time of the procedure; K58.9 Irritable bowel syndrome, unspecified; G89.29 Other chronic pain; M54.9 Dorsalgia, unspecified; D50.9 Iron deficiency anemia, unspecified
CPT/HCPCS: 36415; 73080; 80048; 83735; 85025; 94640; 96372; 97110; 97116; 97162; 97166; 97530; 97535; 99218; 99282; A4216; G0378

== ENCOUNTER 2018-01-19 14:00 | Outpatient (RCR) | payer MEDICAID, SELFPAY ==
[2018-01-11 00:46] VITALS: BP 140/61; PULSE 93; RESP 18; TEMP 36.3
[2018-01-11 14:16] VITALS: BP 134/73; BP 138/71; PULSE 65; PULSE 75; RESP 16; TEMP 36.6
--- NOTE | 2018-01-11 16:31 | PCM.HBO.PN ---
History of Present Illness Date of Service: 01/11/18 Presenting Chief Complaint: Nonhealing radiation pressure ulcer, abscess ulcer right gluteal/ischial area, Stage IV, with 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 BRYN TROTTER is a 62 year old currently undergoing hyperbaric oxygen therapy for soft tissue radionecrosis and osteomyelitis in preparation for wound closure with muscle flaps. Progress:Today's session represents the 2nd such session of hyperbaric oxygen therapy. The patient appears to be tolerating without problems. Tolerance of hyperbaric oxygen therapy: Hyperbaric oxygen therapy was administered as per the facility's protocol. The patient tolerated hyperbaric oxygen therapy well, without complaints or complications. Upon emergence from the hyperbaric chamber, the patient's vital signs remained stable. 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, stage 4 (Chronic) Anal cancer (Chronic) Hepatitis C carrier (Chronic) COPD (chronic obstructive pulmonary disease) (Chronic) Anxiety and depression (Chronic) HTN (hypertension) (Chronic) HLD (hyperlipidemia) (Chronic) GERD (gastroesophageal reflux disease) (Chronic) PAD (peripheral artery disease) (Chronic) Allergies/Adverse Reactions: Allergies povidone-iodine [From Betadine] Allergy (Verified 10/17/17 07:25) Hives Sgxtsab-Ilp-Nfz Reductase Inhibitor Adverse Reaction (Verified 10/17/17 07:25) MESSED MY LIVER UP adhesive tape Allergy (Uncoded 10/17/17 07:25) Itching/rash Home Medications: Ambulatory Orders Medication Instructions Recorded Aspirin [Aspirin, Baby] 81 mg PO DAILY@0800 03/22/16 Escitalopram Oxalate [Lexapro] 10 mg PO QHS 03/22/16 Ezetimibe [Zetia] 10 mg PO QHS 03/22/16 Fluticasone 0.05% [Flonase Nasal 2 spray NASAL BID 03/22/16 [place]] Multivitamin [Multiple Vitamins] 1 each PO DAILY 03/22/16 Omeprazole [Prilosec] 40 mg PO QHS 03/22/16 buPROPion XL [Wellbutrin Xl] 300 mg PO QHS 03/22/16 busPIRone [Buspar] 5 mg PO TID 03/22/16 Tiotropium [place] [Spiriva 2 puff INHALATION DAILY 10/20/16 Respimat] Cholecalciferol (Vitamin D3) 1,000 unit PO DAILY 12/09/16 [Vitamin D3] Tizanidine HCl [Zanaflex] 4 mg PO Q6H PRN PRN 12/27/16 Acetaminophen [Tylenol Tablet] 650 mg PO Q6H PRN PRN tablet 01/13/17 Ibuprofen [Motrin] 800 mg PO TID 06/06/17 Triamterene 37.5MG/Hctz 25MG 0.5 cap PO DAILY 06/06/17 [Dyazide (G)] Testosterone [Androderm 2mg/24 hr] 1 each TD DAILY 06/08/17 DiphenhydrAMINE [Benadryl] 25 mg PO Q6H PRN capsule 06/14/17 Ibuprofen [Motrin] 800 mg PO Q8H PRN PRN tablet 06/14/17 Loperamide [Imodium] 2 mg PO Q4H PRN PRN capsule 06/14/17 Shaina [Ultra-Light Rollator] 1 shaina .QDAILY 180 Days #1 ea 08/28/17 Docusate Sodium [Colace] 100 mg PO PRN PRN 10/16/17 Metoprolol Tartrate 25 mg PO BID 10/16/17 Nutritional Supplement [[place] - 1 packet PO BIDCM 10/16/17 [place]] Vancomycin IV 1,250 mg IV Q8H 40 Days #120 vial 10/18/17 Diazepam [Valium] 5 mg PO 4X/DAY PRN PRN #30 tab 10/20/17 Ensure Clear 120 ml PO TIDCM liquid 10/20/17 Gabapentin [Neurontin] 800 mg PO TIDCM #90 tab 10/20/17 Hydrochlorothiazide 12.5 mg PO DAILY capsule 10/20/17 Ibuprofen [Motrin] 800 mg PO Q8H PRN PRN tablet 10/20/17 Iron Polysaccharide Complex 150 mg PO DAILYCM capsule 10/20/17 [Ferrex 150] Oxycodone HCl/Acetaminophen 1 - 2 tab PO 4X/DAY PRN PRN 5 Days 10/20/17 [Percocet 5-325] #40 tab Piperacil/Tazobactam [Zosyn] 3.375 gm IV Q8 40 Days #120 ml 10/20/17 proMETHazine tablet [Phenergan 25 mg PO Q4H PRN PRN tablet 10/20/17 tablet] Maternal Family History: No pertinent history Paternal Family History: No pertinent history Smoking Status: Former smoker Physical Exam Vital Signs Temp Pulse Resp BP 97.8 F 75 16 134/73 H 01/11/18 14:16 01/11/18 14:16 01/11/18 14:16 01/11/18 14:16 General: Alert, Oriented x3, Cooperative, No apparent distress HEENT: Atraumatic, PERRLA Lungs: Clear to auscultation, Normal air movement Cardiovascular: Regular rate, Regular Rhythm, Normal S1, Normal S2 Psych/Mental Status: Normal Affect, Appropriate, Alert and oriented to time, place, person, mood and affect Assessment/Plan The patient is tolerating hyperbaric oxygen treatment and therapy will continue as per his comprehensive medical treatment plan.
[2018-01-12 10:12] VITALS: BP 137/92; PULSE 85; RESP 16; TEMP 36.2
[2018-01-15 14:16] VITALS: BP 146/79; PULSE 79; RESP 18; TEMP 36.5
[2018-01-17 14:38] VITALS: BP 134/71; PULSE 72; RESP 18; TEMP 36.8
--- NOTE | 2018-01-17 16:20 | WC ---
HYPERBARIC OXYGEN THERAPY NOTE: Patient changed insurances from [employer] to [employer] after receiving 1st HBO Treatment. Further therapy was placed on hold until new pre-authorization obtained. [facility] called. Spoke w/[employer] and [id number] codes do not require pre-authorization. Patient is scheduled to resume hyperbaric therapy on Monday01/22/18 @ 14:00. Transportation has been scheduled through [facility]. Pre-authorization # is: [id number]
[2018-01-19 16:07] VITALS: BP 186/72; PULSE 77; RESP 16; TEMP 36.2
== END 2018-02-09 23:59 ==
LOC: WC 14:00
PROVIDERS: Family Provider Internal Medicine; PCP Internal Medicine; Referring Provider Surgery; Visit Provider Surgery
DX: L59.8 Other specified disorders of the skin and subcutaneous tissue related to radiation (principal); Y84.2 Radiological procedure and radiotherapy as the cause of abnormal reaction of the patient, or of later complication, without mention of misadventure at the time of the procedure; L89.214 Pressure ulcer of right hip, stage 4; Z85.048 Personal history of other malignant neoplasm of rectum, rectosigmoid junction, and anus; Z86.14 Personal history of Methicillin resistant Staphylococcus aureus infection; K21.9 Gastro-esophageal reflux disease without esophagitis; I73.9 Peripheral vascular disease, unspecified; E78.5 Hyperlipidemia, unspecified; I10 Essential (primary) hypertension; B18.2 Chronic viral hepatitis C; J44.9 Chronic obstructive pulmonary disease, unspecified; Z79.899 Other long term (current) drug therapy; Z79.82 Long term (current) use of aspirin; Z87.891 Personal history of nicotine dependence
CPT/HCPCS: 97605; 99183; 99212; G0277; G0463

== ENCOUNTER 2018-02-12 08:32 | Outpatient (RCR) | payer MEDICAID, SELFPAY ==
[2018-02-10 00:46] VITALS: BP 186/72; PULSE 77; RESP 16; TEMP 36.2
== END 2018-03-12 23:59 ==
LOC: WC 08:32
PROVIDERS: Family Provider Internal Medicine; PCP Internal Medicine; Referring Provider Surgery; Visit Provider Surgery
DX: Z09 Encounter for follow-up examination after completed treatment for conditions other than malignant neoplasm (principal)

== ENCOUNTER 2018-03-19 21:33 | Inpatient (IN) | payer MEDICAID, SELFPAY ==
--- NOTE | 2018-03-19 21:40 | NURSING ---
Squad member advised me that the pt pulled out his NG tube enroute from [facility] to our facility.
[2018-03-19 21:58] VITALS: BMI 25.1
[2018-03-19 22:14] VITALS: BP 133/67; PULSE 102; RESP 20; TEMP 38.6; O2SAT 94
--- NOTE | 2018-03-19 23:08 | HP.PCM_ITS ---
Problem List (1) Pneumonia Status: Acute Qualifiers: Laterality: right Lung location: lower lobe of lung (2) SBO (small bowel obstruction) Status: Acute (3) Debility Status: Chronic (4) Personal history of Methicillin resistant Staphylococcus aureus infection Status: Chronic (5) History of anal cancer Status: Chronic (6) Late effect of radiation Status: Chronic Comment: right ischial area (7) COPD (chronic obstructive pulmonary disease) Status: Chronic Qualifiers: (8) Anxiety and depression Status: Chronic (9) HTN (hypertension) Status: Chronic Qualifiers: (10) HLD (hyperlipidemia) Status: Chronic Qualifiers: (11) GERD (gastroesophageal reflux disease) Status: Chronic Qualifiers: (12) PAD (peripheral artery disease) Status: Chronic History of Present Illness Date of Admission: 03/19/18 Chief Complaint: abdominal pain The patient is a 63 year old male patient who presented to [facility] ER from a nursing facility with chief complaint of abdominal pain. Onset was this past Monday and he has had poor appetite and decrease in oral intake since that time. His pain became acute today now 10/20. CT scan reveals a small bowel obstruction. He also has a chronic wound on his buttocks for which he has been receiving IV Vancomycin. According to the ER doctor the wound has improved over the past month. CT scan reveals RLL pneumonia as well, despite being on Vancomycin. WBC count was 10.8, hemoglobin 10.6, hematocrit 33.8, glucose 120, sodium 134, BUN 21 and creatinine 0.5. Upon arrival he had removed his NG tube in the squad because it was uncomfortable he also had a fever. He will be admitted and surgical consult obtained. 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) Anal cancer (Chronic) Hepatitis C carrier (Chronic) COPD (chronic obstructive pulmonary disease) (Chronic) Anxiety and depression (Chronic) HTN (hypertension) (Chronic) HLD (hyperlipidemia) (Chronic) GERD (gastroesophageal reflux disease) (Chronic) PAD (peripheral artery disease) (Chronic) Hyponatremia (Chronic) suspected to be from water drinking Allergies povidone-iodine [From Betadine] Allergy (Verified 01/19/18 13:50) Hives Ymnvuwf-Dvw-Uyw Reductase Inhibitor Adverse Reaction (Verified 01/19/18 13:50) MESSED MY LIVER UP adhesive tape Allergy (Uncoded 01/19/18 13:50) Itching/rash Home Medications: Ambulatory Orders Medication Instructions Recorded Aspirin [Aspirin, Baby] 81 mg PO DAILY@0800 03/22/16 Escitalopram Oxalate [Lexapro] 10 mg PO QHS 03/22/16 Ezetimibe [Zetia] 10 mg PO QHS 03/22/16 Fluticasone 0.05% [Flonase Nasal 2 spray NASAL BID 03/22/16 [place]] Multivitamin [Multiple Vitamins] 1 each PO DAILY 03/22/16 Omeprazole [Prilosec] 40 mg PO QHS 03/22/16 buPROPion XL [Wellbutrin Xl] 300 mg PO QHS 03/22/16 busPIRone [Buspar] 5 mg PO TID 03/22/16 Tiotropium [place] [Spiriva 2 puff INHALATION DAILY 10/20/16 Respimat] Cholecalciferol (Vitamin D3) 1,000 unit PO DAILY 12/09/16 [Vitamin D3] Tizanidine HCl [Zanaflex] 4 mg PO Q6H PRN PRN 12/27/16 DiphenhydrAMINE [Benadryl] 25 mg PO Q6H PRN capsule 06/14/17 Loperamide [Imodium] 2 mg PO Q4H PRN PRN capsule 06/14/17 Docusate Sodium [Colace] 100 mg PO PRN PRN 10/16/17 Nutritional Supplement [Chuy - 1 packet PO BIDCM 10/16/17 [place]ANGE FLAVOR] Iron Polysaccharide Complex 150 mg PO DAILYCM capsule 10/20/17 [Ferrex 150] Oxycodone HCl/Acetaminophen 1 - 2 tab PO 4X/DAY PRN PRN 5 Days 10/20/17 [Percocet 5-325] #40 tab proMETHazine tablet [Phenergan 25 mg PO Q4H PRN PRN tablet 10/20/17 tablet] Fluconazole [Diflucan] 400 mg PO DAILY 01/19/18 Gabapentin [Neurontin] 800 mg PO 4X/DAY 01/19/18 Metoprolol Tartrate [Lopressor 50 ng PO BID 01/19/18 (beta curt)] Bran/Gum/Fib/Cony/Psyl/Kelp/Pec 2,000 mg PO ACHS 01/20/18 [Fiber 6 Tablet] Diphenoxylate/Atrop [Lomotil] 2 tab PO 4X/DAY PRN PRN 01/20/18 Diazepam [Valium] 5 mg PO BID PRN #6 tab 01/23/18 Enoxaparin [Lovenox] 40 mg SC DAILY@1000 syringe 01/23/18 Ibuprofen [Ibu] 800 mg PO TID PRN #0 01/23/18 MethylPREDNISolone DosePak [Medrol 4 mg PO 0800,1200,2200 tablet 01/23/18 DosePak] Psychiatric History: No pertinent psych hx Smoking Status: Former smoker - *Family History Maternal History Items: - - Denies any marked maternal or paternal family history including DM, HTN, HD. Paternal History Items: - - Denies any marked maternal or paternal family history including DM, HTN, HD. Review of Systems Constitutional: Reports: Fever, Weakness, Fatigue. Denies: Chills, Weight Change HEENT: Denies: Head Aches, Sinus Congestion, Sinus Drainage Cardiovascular: Denies: Chest Pain, Palpitations Respiratory: Denies: Cough, Shortness of breath at rest, Sputum production Gastrointestinal: Reports: Abdominal Pain, Nausea, Vomiting Genitourinary: Denies: Dysuria Musculoskeletal: Denies: Joint Pain, Joint Tenderness Skin: Reports: Wounds. Denies: Rash Neurological: Denies: Numbness, Tingling, Focal weakness Psychiatric: Reports: Anxiety. Denies: Depression, Homicidal Ideations, Suicidal Ideations Hematologic/ Lymphatic: Denies: Easy Bruising, Easy Bleeding VTE Information - Inpt Only VTE Present on Admission: No VTE Mechan Device Prophylaxis: None VTE Pharm Prophylaxis ordered?: Yes Patient Problems: Active and Suspected Problems Pneumonia (Acute) SBO (small bowel obstruction) (Acute) - Physical Exam General: Alert, Cooperative HEENT: Atraumatic, Normocephalic Neck: Supple, Negative Carotid Bruits Lungs: Normal air movement, No wheeze, No rales, Rhonchi Cardiovascular: Regular rate, Normal S1, Normal S2, No murmurs Abdomen: Hypoactive Bowel Sounds, Guarding, Tender Extremities: No edema Skin: Ulcer/ Wound - 3cm buttock ulcer with tunneling of 3cm on right buttock Musculoskeletal: No Tenderness to Palpation of Joints or Extremities Neurological: Neuro grossly intact Psych/Mental Status: Normal Affect, Appropriate, Anxious Vital Signs Temp Pulse Resp BP Pulse Ox 101.5 F H 102 H 20 H 133/67 H 94 03/19/18 22:14 03/19/18 22:14 03/19/18 22:14 03/19/18 22:14 03/19/18 22:14 Oxygen Flow Rate (L/min) 2 Oxygen Delivery Method Nasal Cannula Weight: 160 lb 7.944 oz Body Mass Index (BMI) 25.1 Assessment/Plan All Active Problems Pneumonia (Acute) SBO (small bowel obstruction) (Acute) Chronic Problems Personal history of Methicillin resistant Staphylococcus aureus infection (Chronic) 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 SBO- NPO, replace NG tube to low int suction, consult Dr Herring for surgical management, IV normal saline at 100 cc/hr, morphine 4-6mg IV q 2 hrs prn pain, Zofran 4mg IV q 6hrs prn nausea. Repeat KUB in am 2. Pneumonia - Continue Vancomycin and add Rocephin, oxygen per protocol, repeat CBC, CMP in am 3. Chronic wound on Buttocks- maintain wound care and Vancomycin 4. DVT prophylaxis- LMWH Code Visit Inpatient E&M: 93804 Init Hosp L3
[2018-03-19] MEDS: morphine 10 MG/ML Syringe 6 MG IV (23:59)
[2018-03-20] VITALS (14 sets, daily range): BP systolic 128–151; BP diastolic 60–74; PULSE 84–100; RESP 16–18; TEMP 36.8–38.1; O2SAT 88–95
[2018-03-20] MEDS: proMETHazine 25 MG/ML Syringe 12.5 MG IV
--- NOTE | 2018-03-20 00:05 | RAD_ITS ---
HISTORY: NG TUBE PLACEMENTSMALL BOWEL OBSTRUCTION EXAM: Abdominal series portable 2 supine views COMPARISON: None FINDINGS: The NG tube tip lies within the stomach. Gaseous distention of bowel within the upper abdomen which correlates with the clinical history. The left colon is decompressed. Iodinated contrast within urinary bladder which is nondistended. Left total hip prosthesis. Atherosclerotic calcifications. RAD/Abdomen Single View IMPRESSION: 1. The distal NG tube lies within the stomach. 2. Bowel distention within the upper abdomen which correlates with the clinical history of small bowel obstruction. at 0141 Reported and signed by: Jamie Sy MD Electronically Signed: Jamie Sy, at 1:40 EST Tel , Service support ,
[2018-03-20] MEDS: 0.9% Normal Saline 1,000 ML 100 ML IV ×3 (00:08→23:04)
--- NOTE | 2018-03-20 00:34 | NURSING ---
INSERTED 16F NG TUBE IN RIGHT NARE, VERIFIED BY AIR BOLUS. NOTED BRIGHT GREEN BILE. PT TOLERATED WELL.
[2018-03-20] MEDS: Ceftriaxone 1 GM/50 ML BAG IV (00:54)
[2018-03-20] MEDS: Vancomycin IV 1,000 MG/200 ML BAG 200 MG IV ×3 (01:57→21:45)
--- NOTE | 2018-03-20 05:55 | RAD_ITS ---
STUDY: X-RAY - ACUTE ABDOMINAL SERIES REASON FOR EXAM: Male, 63 years old. History of small bowel obstruction. TECHNIQUE: Single view of the chest. Supine, and decubitus view(s) of the abdomen were obtained. COMPARISON: Comparison is made with prior examination dated March 2018. FINDINGS: An orogastric tube is seen. The tip is in the body of the stomach. Atelectasis and/or infiltrates at both lung bases slightly more prominent on the left side. Normal size heart. Normal mediastinum and andrea. Normal visualized pulmonary arteries. Normal visualized aortic arch and descending thoracic aorta. Since prior study, there is less gaseous distention of the bowel. Fecal material is seen within the colon. Contrast is seen within the urinary bladder from a prior CT examination. There are diffuse degenerative changes of the visualized lumbar spine. Atherosclerotic calcification of the abdominal aorta. RAD/Acute Abdomen Inc Chest IMPRESSION: Bibasilar atelectasis and/or infiltrates worse on the left side. The gas pattern is improved. Fecal material is seen throughout the colon. Electronically Signed: Aayush Ibarra MD at 12:49 EST Tel [phone], Service support ,
[2018-03-20 06:33] LABS: ALB/GLOB Ratio 0.7 RATIO (0.9-2.4); AST(SGOT) 30 U/L (15-37); Alanine Aminotransfer ALT/SGPT 39 U/L (16-61); Albumin, Serum 2.7 g/dL (3.2-5.0); Alkaline Phosphatase 72 U/L (45-117); Anion Gap 9 (5-15); BUN 17 mg/dL (7-18); BUN/Creat Ratio 34.7 RATIO (10-20); Calcium,Total 8.2 mg/dL (8.5-10.1); Chloride 99 mmol/L (98-107); Creatinine, Serum 0.49 mg/dL (0.70-1.30); EST Glomerular Filtration Rate 182 mL/min (>60); Est Glom Filt Rate - Afr Amer 220 mL/min (>60); Estimated Creatinine Clearance 142.39 ml/min; Globulin 3.9 g/dL (2.2-4.2); Glucose 94 mg/dL (74-106); Potassium 3.4 mmol/L (3.5-5.1); Protein, Total 6.6 g/dL (6.4-8.2); Sodium Level 137 mmol/L (136-145)
[2018-03-20 07:16] LABS: Absolute Lymphocyte Count 1.23 X10^3/ul (0.83-4.51); Absolute Neutrophil Count 5.3 X10^3/uL (2.0-7.7); Basophil# 0.01 X10^3/uL; Basophil% 0.1 % (0-1); Eosinophil# 0.11 X10^3/uL; Eosinophils% 1.4 % (0-5); Hematocrit 28.6 % (40-54); Hemoglobin 8.6 g/dl (13.0-16.5); Lymphocyte # 1.23 X10^3/ul (4.0); Lymphocyte % 15.6 % (19-41); Mean Corp Hgb Conc 30.1 g/gl (32-36); Mean Corpuscular Hgb 24.9 pg (27.0-32.0); Mean Corpuscular Volume 82.7 fL (80-94); Mean Platelet Vol. 7.8 fl (6.2-12.0); Monocyte# 1.21 X10^3/uL; Monocyte% 15.4 % (0-10); Neutrophil # 5.28 X10^3/uL (2.7-7.7); Neutrophil % 67.2 % (47-70); Platelet Count 355 K/mm3 (150-450); RBC Distribution Width CV 17.1 % (11.6-14.6); RBC Distribution Width SD 49.7 fl (35.1-43.9); Red Blood Count 3.46 M/mm3 (4.6-6.2); White Blood Count 7.9 K/mm3 (4.4-11.0)
[2018-03-20 07:22] LABS: Differential Indicated SCAN CRITERIA MET; POSITIVE COUNT NO; POSITIVE DIFFERENTIAL NO; POSITIVE MORPHOLOGY YES
[2018-03-20 07:46] LABS: Differential Comment SCANNED
--- NOTE | 2018-03-20 08:21 | PCA ---
this hospital secretary placed a call to [facility] to obtain pt ct scan disc, [facility] did fax over the results, but will also be sending someone over in a timely manner with the disc. will let MD know when disc arrives
--- NOTE | 2018-03-20 08:49 | NURSING ---
[PT RETURNED FROM RADIOLOGY AT THIS TIME.
--- NOTE | 2018-03-20 09:28 | RAD_ITS ---
STUDY: X-RAY CHEST REASON FOR EXAM: Male, 63 years old. Shortness of breath/dyspnea. TECHNIQUE: Single AP portable view of the chest. COMPARISON: Comparison is made with prior study dated August 11, 2017. FINDINGS: A normal orogastric tube is seen with the tip below the left hemidiaphragm. There is evidence of a mild degree of increased markings at the lung bases suggestive of bibasilar atelectasis and/or early infiltrates. Mild degree of vascular congestion. There is no demonstrated pleural abnormality. Normal size heart. Normal mediastinum and andrea. Normal visualized pulmonary arteries. There is atherosclerotic tortuosity of the aortic arch and descending thoracic aorta. There are diffuse degenerative changes of the visualized thoracic spine. There is degenerative osteoarthritis of the bilateral shoulders. There is no demonstrated abnormality of the visualized soft tissue structures of the upper abdomen. RAD/Chest 1 View (Portable) IMPRESSION: Mild degree of increased markings at the lung bases suggesting bibasilar atelectasis and/or early infiltrate. Electronically Signed: Aayush Ibarra MD at 15:29 EST Tel [phone], Service support ,
--- NOTE | 2018-03-20 09:31 | NURSING ---
wound photo: right ischium/gluteal crease
--- NOTE | 2018-03-20 09:51 | PCM.RX.CS ---
Consult Pharmacy has been consulted to manage selected antiobiotic: Vancomycin Type of Consult: New start Suspected Infection: Other Prior Doses of Antibiotics Received/Current Regimen: Received vancomycin 1000mg IV x1 at 01:57 this morning. Patient also reportedly was already on vancomycin 1000mg IV q8h at another facility prior to admission here at [facility], although it is somewhat unclear when a dose was last given before admission here. This prior dosing also had a stop date of 03/30/18 at 23:59. Labs: Sodium 137 mmol/L (136-145) 03/20/18 05:47 Potassium 3.4 mmol/L (3.5-5.1) L 03/20/18 05:47 Chloride 99 mmol/L (98-107) 03/20/18 05:47 Carbon Dioxide 29.0 mmol/L (21.0-32.0) 03/20/18 05:47 Anion Gap 9 (5-15) 03/20/18 05:47 BUN 17 mg/dL (7-18) 03/20/18 05:47 Creatinine 0.49 mg/dL (0.70-1.30) L 03/20/18 05:47 Est GFR (MDRD) Af Amer 220 mL/min (>60) 03/20/18 05:47 Est GFR (MDRD) Non-Af 182 mL/min (>60) 03/20/18 05:47 BUN/Creatinine Ratio 34.7 RATIO (10-20) H 03/20/18 05:47 Glucose 94 mg/dL (74-106) 03/20/18 05:47 Weight used for dosin.8 kg Estimated Creatinine Clearance: 142 ml/min Goal Trough: 10-15 mcg/mL Pharmacy Plan for Drug Dosing: The plan is to continue with the patient's current dosing of 1000mg IV q8h as at the prior facility at the previous dosing times of [id number]. Will obtain a trough before the next dose at 14:00 to get an idea of the patient's current level. Keep the original stop date of 03/30/18 at this point. Pharmacy Service will continue to monitor and adjust dosing as required. Follow-Up Labs: Trough Vancomycin Labs to be done on [date and time ordered]: 03/20/18 13:30
--- NOTE | 2018-03-20 09:56 | PHA.PHARE_ITS ---
Consult Pharmacy has been consulted to manage selected antiobiotic: Vancomycin Type of Consult: New start Suspected Infection: Other Prior Doses of Antibiotics Received/Current Regimen: Received vancomycin 1000mg IV x1 at 01:57 this morning. Patient also reportedly was already on vancomycin 1000mg IV q8h at another facility prior to admission here at [facility], although it is somewhat unclear when a dose was last given before admission here. This prior dosing also had a stop date of 03/30/18 at 23:59. Labs: Sodium 137 mmol/L (136-145) 03/20/18 05:47 Potassium 3.4 mmol/L (3.5-5.1) L 03/20/18 05:47 Chloride 99 mmol/L (98-107) 03/20/18 05:47 Carbon Dioxide 29.0 mmol/L (21.0-32.0) 03/20/18 05:47 Anion Gap 9 (5-15) 03/20/18 05:47 BUN 17 mg/dL (7-18) 03/20/18 05:47 Creatinine 0.49 mg/dL (0.70-1.30) L 03/20/18 05:47 Est GFR (MDRD) Af Amer 220 mL/min (>60) 03/20/18 05:47 Est GFR (MDRD) Non-Af 182 mL/min (>60) 03/20/18 05:47 BUN/Creatinine Ratio 34.7 RATIO (10-20) H 03/20/18 05:47 Glucose 94 mg/dL (74-106) 03/20/18 05:47 Weight used for dosin.8 kg Estimated Creatinine Clearance: 142 ml/min Goal Trough: 10-15 mcg/mL Pharmacy Plan for Drug Dosing: The plan is to continue with the patient's current dosing of 1000mg IV q8h as at the prior facility at the previous dosing times of [id number]. Will obtain a trough before the next dose at 14:00 to get an idea of the patient's current level. Keep the original stop date of 03/30/18 at this point. Pharmacy Service will continue to monitor and adjust dosing as required. Follow-Up Labs: Trough Vancomycin Labs to be done on [date and time ordered]: 03/20/18 13:30
--- NOTE | 2018-03-20 10:11 | PCM.PROGNOTE ---
Patient Problems: Active and Suspected Problems Pneumonia (Acute) SBO (small bowel obstruction) (Acute) Subjective: Chief complaint: Follow-up after admission for small bowel obstruction and probable healthcare associated pneumonia. Patient seen and examined. No acute events overnight. Patient was admitted directly from outside facility after he was found to have small bowel obstruction. They, he still complaining of intermittent abdominal pain. He has NG tube inserted. Denied any more nausea or vomiting. He reported cough with minimal sputum. Denies fever chills. Denies chest pain or shortness of breath. CT scan abdomen and pelvis that was done yesterday at the outside facility reviewed, revealed findings consistent with small bowel obstruction and right lower lobe and left lower lobe consolidation. Patient had a recent history of MRSA osteomyelitis of the pelvic region as well as right ischial pressure sore stage IV and he has been on vancomycin. According to the patient, he supposed to be on vancomycin for 6 weeks and it was started on early February. - Physical Exam General: Alert, Oriented x3, Cooperative, No apparent distress HEENT: Atraumatic, PERRLA, EOMI, Normocephalic Oral: Moist Mucosa, No Gingival or Mucosal Lesions/ Ulcerations Neck: Supple, No JVD, Negative Carotid Bruits, Trachea Midline, Thyroid Normal Size and Texture Lungs: No wheeze, No rales, Diminished, Rhonchi, - - Decreased breath sounds at the bases, scattered rhonchi. Cardiovascular: Regular rate, Regular Rhythm, Normal S1, Normal S2, PMI Normal Abdomen: Bowel Sounds Present, Soft, Non Tender, Non-Distended, No Hepato-splenomegaly Extremities: No clubbing, No cyanosis, No edema Skin: No rashes, No breakdown, - - Right inguinal surgical incision, dry and clean. Lymphatic: No Cervical, Supraclavicular, or Inguinal Adenopathy Neurological: Cranial nerves II-XII grossly intact, Motor Exam 5/5 strength throughout Psych/Mental Status: Normal Affect, Appropriate, Alert and oriented to time, place, person, mood and affect Vital Signs Temp Pulse Resp BP Pulse Ox 98.3 F 97 16 139/68 H 94 03/20/18 09:05 03/20/18 09:05 03/20/18 09:05 03/20/18 09:05 03/20/18 09:05 Oxygen Flow Rate (L/min) 2 Oxygen Delivery Method Nasal Cannula Weight: 160 lb 7.944 oz Body Mass Index (BMI) 25.1 Intake and Output for Last 24 Hours 03/18/18 03/19/18 03/20/18 23:59 23:59 23:59 Intake Total 772 / 772 Output Total 575 / 575 Balance 197 / 197 Laboratory Tests Past 24 Hrs 03/20/18 03/20/18 05:47 05:47 WBC 7.9 RBC 3.46 L Hgb 8.6 L Hct 28.6 L MCV 82.7 MCH 24.9 L MCHC 30.1 L RDW 17.1 H RDW Differential 49.7 H Plt Count 355 MPV 7.8 Immature Gran % (Auto) 0.300 Neut % (Auto) 67.2 Lymph % (Auto) 15.6 L [place] % (Auto) 15.4 H Eos % (Auto) 1.4 Baso % (Auto) 0.1 Absolute Neuts (auto) 5.3 Absolute Lymphs (auto) 1.23 Total Counted Not Reportable Differential Comment SCANNED Sodium 137 Potassium 3.4 L Chloride 99 Carbon Dioxide 29.0 Anion Gap 9 BUN 17 Creatinine 0.49 L Estim Creat Clear Calc 142.39 Est GFR (MDRD) Af Amer 220 Est GFR (MDRD) Non-Af 182 BUN/Creatinine Ratio 34.7 H Glucose 94 Calcium 8.2 L Total Bilirubin 0.40 AST 30 ALT 39 Alkaline Phosphatase 72 Total Protein 6.6 Albumin 2.7 L Globulin 3.9 Albumin/Globulin Ratio 0.7 L Medical Necessity - Tobacco Use Smoking Status: Former smoker Assessment/Plan All Active Problems Pneumonia (Acute) SBO (small bowel obstruction) (Acute) This is a 63 years old male patient admitted directly from outside facility for ileus versus small bowel obstruction, found to have a right lower lobe and questionable left lower lobe consolidation consistent with healthcare associated pneumonia because of recent admission to the hospital and he has been in the long-term, had 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 #1 ileus versus small bowel obstruction: CT scan abdomen and pelvis from the outside facility reviewed. Patient kept on n.p.o., NG tube inserted, on IV fluids and IV pain medications as needed. General surgery consulted. Serum potassium is slightly low at 3.4. Plan: Continue IV fluids, NG tube suction, replace potassium, repeat CBC and BMP tomorrow morning. #2 probable bilateral lower lobe healthcare associated pneumonia: CT abdomen that was done at the outside facility revealed right lower lobe as well as probable left lower lobe consolidation. She has been in the long-term and before that, he was admitted to the hospital. This is qualifies for healthcare associated pneumonia. Patient is already on IV vancomycin for right pelvic region MRSA osteomyelitis. Plan: Continue vancomycin, sputum culture, and IV Zosyn, DC IV Rocephin, bronchodilators, incentive spirometer, chest physiotherapy. 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 Reportedly, patient was started on IV vancomycin on and the supposed to stay on IV vancomycin for 6 weeks. IV vancomycin continued. Wound care nurse consulted, proper dressing performed. #4 hypertension: Blood pressure stable, will start him on IV metoprolol. Patient has been on metoprolol at home but was not because he is n.p.o. #5 COPD: Clinically stable, denied worsening shortness of breath. Also she is maintained on 2 L. Plan for albuterol as needed, incentive spirometer, chest physiotherapy. #6 chronic anemia: It is normocytic anemia. Baseline hemoglobin around 8-10 g/dL. No evidence of active bleeding. We will check his serum iron, TIBC, ferritin. #7 hyperlipidemia: Statin is held. #8 anxiety/depression: Home medications held because he is n.p.o. #9 GERD: Started on IV Protonix. #10 DVT prophylaxis: Subcu Lovenox. This note was generated with [employer] dictation software. It may contain incorrect words, spelling, and punctuation that were not noted in checking the note before signing. Code Visit Inpatient E&M: 56575 [facility] Hosp L3
--- NOTE | 2018-03-20 10:16 | PN_ITS ---
Patient Problems: Active and Suspected Problems Pneumonia (Acute) SBO (small bowel obstruction) (Acute) Subjective: Chief complaint: Follow-up after admission for small bowel obstruction and probable healthcare associated pneumonia. Patient seen and examined. No acute events overnight. Patient was admitted directly from outside facility after he was found to have small bowel obstruction. They, he still complaining of intermittent abdominal pain. He has NG tube inserted. Denied any more nausea or vomiting. He reported cough with minimal sputum. Denies fever chills. Denies chest pain or shortness of breath. CT scan abdomen and pelvis that was done yesterday at the outside facility reviewed, revealed findings consistent with small bowel obstruction and right lower lobe and left lower lobe consolidation. Patient had a recent history of MRSA osteomyelitis of the pelvic region as well as right ischial pressure sore stage IV and he has been on vancomycin. According to the patient, he supposed to be on vancomycin for 6 weeks and it was started on early February. - Physical Exam General: Alert, Oriented x3, Cooperative, No apparent distress HEENT: Atraumatic, PERRLA, EOMI, Normocephalic Oral: Moist Mucosa, No Gingival or Mucosal Lesions/ Ulcerations Neck: Supple, No JVD, Negative Carotid Bruits, Trachea Midline, Thyroid Normal Size and Texture Lungs: No wheeze, No rales, Diminished, Rhonchi, - - Decreased breath sounds at the bases, scattered rhonchi. Cardiovascular: Regular rate, Regular Rhythm, Normal S1, Normal S2, PMI Normal Abdomen: Bowel Sounds Present, Soft, Non Tender, Non-Distended, No Hepato- splenomegaly Extremities: No clubbing, No cyanosis, No edema Skin: No rashes, No breakdown, - - Right inguinal surgical incision, dry and clean. Lymphatic: No Cervical, Supraclavicular, or Inguinal Adenopathy Neurological: Cranial nerves II-XII grossly intact, Motor Exam 5/5 strength throughout Psych/Mental Status: Normal Affect, Appropriate, Alert and oriented to time, place, person, mood and affect Vital Signs Temp Pulse Resp BP Pulse Ox 98.3 F 97 16 139/68 H 94 03/20/18 09:05 03/20/18 09:05 03/20/18 09:05 03/20/18 09:05 03/20/18 09:05 Oxygen Flow Rate (L/min) 2 Oxygen Delivery Method Nasal Cannula Weight: 160 lb 7.944 oz Body Mass Index (BMI) 25.1 Intake and Output for Last 24 Hours 03/18/18 03/19/18 03/20/18 23:59 23:59 23:59 Intake Total 772 / 772 Output Total 575 / 575 Balance 197 / 197 Laboratory Tests Past 24 Hrs 03/20/18 03/20/18 05:47 05:47 WBC 7.9 RBC 3.46 L Hgb 8.6 L Hct 28.6 L MCV 82.7 MCH 24.9 L MCHC 30.1 L RDW 17.1 H RDW Differential 49.7 H Plt Count 355 MPV 7.8 Immature Gran % (Auto) 0.300 Neut % (Auto) 67.2 Lymph % (Auto) 15.6 L [place] % (Auto) 15.4 H Eos % (Auto) 1.4 Baso % (Auto) 0.1 Absolute Neuts (auto) 5.3 Absolute Lymphs (auto) 1.23 Total Counted Not Reportable Differential Comment SCANNED Sodium 137 Potassium 3.4 L Chloride 99 Carbon Dioxide 29.0 Anion Gap 9 BUN 17 Creatinine 0.49 L Estim Creat Clear Calc 142.39 Est GFR (MDRD) Af Amer 220 Est GFR (MDRD) Non-Af 182 BUN/Creatinine Ratio 34.7 H Glucose 94 Calcium 8.2 L Total Bilirubin 0.40 AST 30 ALT 39 Alkaline Phosphatase 72 Total Protein 6.6 Albumin 2.7 L Globulin 3.9 Albumin/Globulin Ratio 0.7 L Medical Necessity - Tobacco Use Smoking Status: Former smoker Assessment/Plan All Active Problems Pneumonia (Acute) SBO (small bowel obstruction) (Acute) This is a 63 years old male patient admitted directly from outside facility for ileus versus small bowel obstruction, found to have a right lower lobe and questionable left lower lobe consolidation consistent with healthcare associated pneumonia because of recent admission to the hospital and he has been in the senior care, had 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 #1 ileus versus small bowel obstruction: CT scan abdomen and pelvis from the outside facility reviewed. Patient kept on n.p.o., NG tube inserted, on IV fluids and IV pain medications as needed. General surgery consulted. Serum potassium is slightly low at 3.4. Plan: Continue IV fluids, NG tube suction, replace potassium, repeat CBC and BMP tomorrow morning. #2 probable bilateral lower lobe healthcare associated pneumonia: CT abdomen that was done at the outside facility revealed right lower lobe as well as probable left lower lobe consolidation. She has been in the senior care and before that, he was admitted to the hospital. This is qualifies for healthcare associated pneumonia. Patient is already on IV vancomycin for right pelvic region MRSA osteomyelitis. Plan: Continue vancomycin, sputum culture, and IV Zosyn, DC IV Rocephin, bronchodilators, incentive spirometer, chest physiotherapy. 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 Reportedly, patient was started on IV vancomycin on and the supposed to stay on IV vancomycin for 6 weeks. IV vancomycin continued. Wound care nurse consulted, proper dressing performed. #4 hypertension: Blood pressure stable, will start him on IV metoprolol. Patient has been on metoprolol at home but was not because he is n.p.o. #5 COPD: Clinically stable, denied worsening shortness of breath. Also she is maintained on 2 L. Plan for albuterol as needed, incentive spirometer, chest physiotherapy. #6 chronic anemia: It is normocytic anemia. Baseline hemoglobin around 8-10 g/dL. No evidence of active bleeding. We will check his serum iron, TIBC, ferritin. #7 hyperlipidemia: Statin is held. #8 anxiety/depression: Home medications held because he is n.p.o. #9 GERD: Started on IV Protonix. #10 DVT prophylaxis: Subcu Lovenox. This note was generated with [employer] dictation software. It may contain incorrect words, spelling, and punctuation that were not noted in checking the note before signing. Code Visit Inpatient E&M: [id number] [facility] Hosp L3
--- NOTE | 2018-03-20 10:30 | CASEMGMT ---
Social Work Note Pt is listed as being from [facility] [place]. SW familiar with pt from previous admissions. Pt confirms that he is from [facility] and his plan is to return there at discharge. SHAHANA spoke with Tala at [facility] stating she is able to accept pt back and will need pre-cert again. Clinicals faxed to Tala to submit for pre-cert. Plan: [facility] pending pre-cert Caroline Og [employer]OY[employer]EFITS, DATA WAREHOUSE ARCHITECT
--- NOTE | 2018-03-20 10:32 | PCA ---
radiology disc received from [facility] , disc taken to radiology to be uploaded into our computer system
--- NOTE | 2018-03-20 11:31 | PCA ---
obtained consent from patient to obtain medical records for MD from [facility] and [facility] , faxed release to both facilities
[2018-03-20] MEDS: Potassium Chloride 10mEq/100mL 10 MEQ/100 ML IV.SOLN. 100 MEQ IV BOLUS ×2 (11:39→12:49)
[2018-03-20] MEDS: Enoxaparin 40 MG/0.4 ML Syringe SC (11:39)
--- NOTE | 2018-03-20 11:51 | CON.PCM_ITS ---
Reason for Consult Date of Consultation: 03/20/18 Reason for Consultation: abdominal distention, nausea vomiting History of Present Illness: The patient is a 63 year old M with a history of chronic debility anal cancer, pelvic issues due to osteomyelitis from treatment of his anal cancer and a chronic stage IV issue of decubiti. The patient had poor appetite and decreased intake at his [facility] extended care/longterm facility. he then noted increasing abdominal discomfort and abdominal pain. He presented to [facility] emergency department. He also noted decreased stool output and decreased flatus. 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 At [facility] Emergency department, he was noted to have a mildly elevated white blood cell count of 10.8, normal hemoglobin. CT scan was apparently obtained which apparently was interpreted as a small bowel obstruction and right lower lobe infiltrate/pneumonia. The patient has a nasogastric tube placed and was transferred to [facility]. the patient is known to me. I performed colonoscopy due to his history of anal cancer on October 19, 2016. Colonoscopy demonstrated lower post radiation changes in the rectal area. The remainder of the colon and terminal ileum was unremarkable. upper endoscopy was also performed which demonstrated mild gastritis and a small hiatal hernia. Following the patient's upper and lower endoscopy, he had abdominal distention and was admitted to [facility] on October 20, 2016 with an initial axillary consistent with bowel obstruction. Clinically I thought that was more likely consistent with an ileus pattern. The patient had this known history also of COPD and chronic bronchitis type issues. He rapidly resolved with conservative treatment and was discharged home on October 22, 2016. Previous to that I performed an open right inguinal hernia repair in 2008. 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) Anal cancer (Chronic) Hepatitis C carrier (Chronic) COPD (chronic obstructive pulmonary disease) (Chronic) Anxiety and depression (Chronic) HTN (hypertension) (Chronic) HLD (hyperlipidemia) (Chronic) GERD (gastroesophageal reflux disease) (Chronic) PAD (peripheral artery disease) (Chronic) Hyponatremia (Chronic) suspected to be from water drinking Allergies povidone-iodine [From Betadine] Allergy (Verified 01/19/18 13:50) Hives Aafsrlb-Qrs-Lzi Reductase Inhibitor Adverse Reaction (Verified 01/19/18 13:50) MESSED MY LIVER UP adhesive tape Allergy (Uncoded 01/19/18 13:50) Itching/rash Home Medications: Ambulatory Orders Medication Instructions Recorded Aspirin [Aspirin, Baby] 81 mg PO DAILY@0800 03/22/16 Escitalopram Oxalate [Lexapro] 10 mg PO DAILY 03/22/16 Ezetimibe [Zetia] 10 mg PO DAILY 03/22/16 Fluticasone 0.05% [Flonase Nasal 2 spray NASAL DAILY 03/22/16 [place]] Multivitamin [Multiple Vitamins] 1 each PO DAILY 03/22/16 buPROPion XL [Wellbutrin Xl] 300 mg PO DAILY 03/22/16 busPIRone [Buspar] 5 mg PO TID 03/22/16 Tiotropium Jenkinjones [Spiriva 2 puff INHALATION DAILY 10/20/16 Respimat] Cholecalciferol (Vitamin D3) 1,000 unit PO DAILY 12/09/16 [Vitamin D3] Tizanidine HCl [Zanaflex] 4 mg PO Q8H PRN PRN 12/27/16 Gabapentin [Neurontin] 600 mg PO TID 01/19/18 Metoprolol Tartrate [Lopressor 50 mg PO BID 01/19/18 (beta curt)] Acetaminophen [Tylenol] 650 mg PO Q4H PRN PRN 03/19/18 Albuterol Aerosols [Ventolin 2.5 mg INHALATION Q4H PRN PRN 03/19/18 Aerosols] Benzocaine/Menthol [Cepacol Sore 1 lozenge PO Q2H PRN PRN 03/19/18 Throat Lozenge] Benzonatate [Tessalon Perle] 100 mg PO TID 03/19/18 Calcium Polycarbophil [Fibercon] 1 tab PO TID 03/19/18 Diphenoxylate HCl/Atropine 2 cap PO Q6H PRN PRN 03/19/18 [Lomotil 2.5-0.025 mg Tablet] Guaifenesin Dm [Robitussin Dm] 5 ml PO Q4H PRN PRN 03/19/18 Ibuprofen [Ibu] 800 mg PO Q8H PRN PRN 03/19/18 Oxycodone HCl/Acetaminophen 2 tablet PO Q6H PRN PRN 03/19/18 [Percocet 10-325 mg Tablet] Oxycodone [Oxyir] 5 mg PO Q6H PRN PRN 03/19/18 Pantoprazole Sodium [Protonix] 40 mg PO DAILY 03/19/18 Testosterone [Androderm 2mg/24 hr] 1 each TD DAILY 03/19/18 Vancomycin/0.9 % Sod Chloride 1 gm IV TID 03/19/18 [Vanco 1 Gram/150 ml-0.9% NaCl] Psychiatric History: No pertinent psych hx Smoking Status: Former smoker - *Family History Maternal History Items: - - Denies any marked maternal or paternal family history including DM, HTN, HD. Paternal History Items: - - Denies any marked maternal or paternal family history including DM, HTN, HD. Review of Systems Constitutional: Reports: Anorexia, Malaise, Fatigue. Denies: Chills, Fever, Weight Change HEENT: Denies: Head Aches, Sinus Congestion, Sinus Drainage Cardiovascular: Denies: Chest Pain, Palpitations Respiratory: Reports: Cough. Denies: Shortness of breath at rest, Sputum production Gastrointestinal: Reports: Abdominal Pain, Nausea. Denies: Vomiting Genitourinary: Denies: Dysuria Musculoskeletal: Denies: Joint Pain, Joint Tenderness Skin: Denies: Rash, Wounds Neurological: Denies: Numbness, Tingling, Focal weakness Psychiatric: Denies: Anxiety, Depression, Homicidal Ideations, Suicidal Ideations Hematologic/ Lymphatic: Denies: Easy Bruising, Easy Bleeding Patient Problems: Active and Suspected Problems Pneumonia (Acute) SBO (small bowel obstruction) (Acute) - Physical Exam General: Alert, Oriented x3, Cooperative Lungs: Diminished - right base, Rhonchi - right base Cardiovascular: Regular rate, Regular Rhythm Abdomen: Soft, Non Tender - NG tube with bilious nonpurulent appearing drainage, Hypoactive Bowel Sounds Vital Signs Temp Pulse Resp BP Pulse Ox 98.3 F 97 16 139/68 H 94 03/20/18 09:05 03/20/18 09:05 03/20/18 09:05 03/20/18 09:05 03/20/18 09:05 Oxygen Flow Rate (L/min) 2 Oxygen Delivery Method Nasal Cannula Weight: 72.8 kg Body Mass Index (BMI) 25.1 Intake and Output for Last 24 Hours 03/18/18 03/19/18 03/20/18 23:59 23:59 23:59 Intake Total 1260 / 1260 Output Total 1275 / 1275 Balance -15 / -15 Laboratory Tests Past 24 Hrs 03/20/18 03/20/18 05:47 05:47 WBC 7.9 RBC 3.46 L Hgb 8.6 L Hct 28.6 L MCV 82.7 MCH 24.9 L MCHC 30.1 L RDW 17.1 H RDW Differential 49.7 H Plt Count 355 MPV 7.8 Immature Gran % (Auto) 0.300 Neut % (Auto) 67.2 Lymph % (Auto) 15.[address] [place] % (Auto) 15.4 H Eos % (Auto) 1.4 Baso % (Auto) 0.1 Absolute Neuts (auto) 5.3 Absolute Lymphs (auto) 1.23 Total Counted Not Reportable Differential Comment SCANNED Sodium 137 Potassium 3.4 L Chloride 99 Carbon Dioxide 29.0 Anion Gap 9 BUN 17 Creatinine 0.49 L Estim Creat Clear Calc 142.39 Est GFR (MDRD) Af Amer 220 Est GFR (MDRD) Non-Af 182 BUN/Creatinine Ratio 34.7 H Glucose 94 Calcium 8.2 L Total Bilirubin 0.40 AST 30 ALT 39 Alkaline Phosphatase 72 Total Protein 6.6 Albumin 2.7 L Globulin 3.9 Albumin/Globulin Ratio 0.7 L Assessment/Plan All Active Problems Pneumonia (Acute) SBO (small bowel obstruction) (Acute) ileus versus obstruction, pneumonia, chronic pelvic wound The x-ray this morning is likely more in ileus versus obstruction. asked to try to get CT scan images/disc from [facility] so I can review to see if there was truly more of an obstructive small bowel pattern but given his past history COPD and pneumonia more likely to believe this is clinically in ileus versus obstruction. At this point in time I would plan to treat his underlying pneumonia. Would follow his abdominal exam clinically and with serial abdominal series. As x-ray pattern looks like it's improving would consider clamping NG tube at this point in time to check residuals later.
[2018-03-20] MEDS: Morphine 2 MG/ML Syringe IV ×3 (13:59→22:42)
[2018-03-20] MEDS: 0.9% NaCl PICC Flush IV ×3 (14:01→18:58)
[2018-03-20] MEDS: Metoprolol Tartrate 5 MG/5 ML Vial IV ×2 (14:04→22:20)
--- NOTE | 2018-03-20 14:14 | NURSING ---
telemetry initiated prior to beginning order for IV lopressor= per hospital policy.
[2018-03-20] MEDS: Piperacil/Tazobactam 3.375 GM/50 ML ML IV ×2 (15:28→23:04)
--- NOTE | 2018-03-20 15:46 | PHA.PHARE_ITS ---
Consult Pharmacy has been consulted to manage selected antiobiotic: Vancomycin Type of Consult: Follow-up Suspected Infection: Other Prior Doses of Antibiotics Received/Current Regimen: Received vancomycin 1000mg IV x1 at 01:57 this morning. Patient also reportedly was already on vancomycin 1000mg IV q8h at another facility prior to admission here at [facility], although it is somewhat unclear when a dose was last given before admission here. This prior dosing also had a stop date of 03/30/18 at 23:59. Labs: Sodium 137 mmol/L (136-145) 03/20/18 05:47 Potassium 3.4 mmol/L (3.5-5.1) L 03/20/18 05:47 Chloride 99 mmol/L (98-107) 03/20/18 05:47 Carbon Dioxide 29.0 mmol/L (21.0-32.0) 03/20/18 05:47 Anion Gap 9 (5-15) 03/20/18 05:47 BUN 17 mg/dL (7-18) 03/20/18 05:47 Creatinine 0.49 mg/dL (0.70-1.30) L 03/20/18 05:47 Est GFR (MDRD) Af Amer 220 mL/min (>60) 03/20/18 05:47 Est GFR (MDRD) Non-Af 182 mL/min (>60) 03/20/18 05:47 BUN/Creatinine Ratio 34.7 RATIO (10-20) H 03/20/18 05:47 Glucose 94 mg/dL (74-106) 03/20/18 05:47 Vancomycin Trough 9.0 ug/mL (5.0-15.0) 03/20/18 13:42 Goal Trough: 10-15 mcg/mL Pharmacy Plan for Drug Dosing: Vancomycin trough level came back as 9.0. Although this is short of the goal of 10-15, the plan is to continue the same dosing of 1000mg IV q8h as the patient had been on at another facility before coming here, as it is unclear if dosing was interrupted for a time before he came here. This level was basically to check where it stood at the current time. We will recheck a trough in a couple days to confirm that this dosing is appropriate. Pharmacy Service will continue to monitor and adjust dosing as required. Follow-Up Labs: Trough Vancomycin Labs to be done on [date and time ordered]: 03/22/18 05:30
[2018-03-21] VITALS (15 sets, daily range): BP systolic 143–155; BP diastolic 62–75; PULSE 77–89; RESP 16–18; TEMP 36.7–37.3; O2SAT 93–98
[2018-03-21] MEDS: Morphine 2 MG/ML Syringe IV ×4 (04:23→20:58)
[2018-03-21] MEDS: Vancomycin IV 1,000 MG/200 ML BAG 200 MG IV ×3 (05:33→21:23)
[2018-03-21] MEDS: Metoprolol Tartrate 5 MG/5 ML Vial IV ×3 (05:33→21:00)
--- NOTE | 2018-03-21 06:31 | CT_ITS ---
STUDY: CT ABDOMEN AND PELVIS WITHOUT CONTRAST REASON FOR EXAM: Male, 63 years old. Abdominal pain and abdominal distention. Decreased appetite. The patient has a history of anal cancer with radiation treatment. Right ischial pressure. RADIATION DOSAGE (If Supplied By Facility): CTDIvol = ( 8.49 ) mGy, DLP = ( 469.03 ) mGycm TECHNIQUE: Transaxial images were obtained from the dome of the diaphragm to the symphysis pubis with oral contrast, and without intravenous contrast. Sagittal and coronal images were reconstructed. Individualized dose optimization techniques were used for this CT. COMPARISON: Comparison is made with prior study dated October 19, 2016. FINDINGS: The previously seen right lower lobe infiltrate has progressed. There now is evidence of a tiny left pleural effusion with infiltrate in the posteromedial segment of the left lower lobe. A dual-chamber pacemaker is seen. Normal liver. Sludge or multiple tiny gallstones are seen in the dependent portion of the gallbladder. Normal spleen. Normal pancreas. Normal bilateral adrenal glands. There are 2 tiny nonobstructive intrarenal calculi in the upper midportion of the right kidney. There is a 2.1 cm cyst in the upper posterior aspect of the left kidney. There is a small hiatal hernia. An oral gastric tube is seen within the stomach. Normal small intestine. Normal colon. The appendix is visualized and appears normal. There is diffuse atherosclerotic calcification of the abdominal aorta and its major visceral branches, without a demonstrated aneurysm. Normal inferior vena cava. There is borderline retroperitoneal lymphadenopathy with enlarged nodes no greater than 10mm in the short axis diameter. Distended urinary bladder. There is a small umbilical hernia containing fat. Large soft tissue defect is seen along the medial proximal aspect of the right gluteal region. There is evidence of a lytic and sclerotic changes of the underlying inferior pubic ramus suggestive of osteomyelitis. The patient is status post left total hip replacement. Multilevel disc space narrowing and spondylosis of the lumbar spine. CT/Abdomen/Pel W ORAL Cont Only IMPRESSION: Distention of the urinary bladder. Sludge or small gallstones in the gallbladder lumen. Large soft tissue defect along the posterior medial aspect of the right gluteal region with the findings suggestive of acute and/or chronic osteomyelitis involving the right inferior pubic ramus. Bibasilar infiltrates. Electronically Signed: Aayush Ibarra MD at 9:56 EST Tel [phone], Service support ,
--- NOTE | 2018-03-21 06:36 | PN.SURG_ITS ---
Patient Problems: Active and Suspected Problems Pneumonia (Acute) SBO (small bowel obstruction) (Acute) Subjective: 1BM, no flatus, no abdominal pain - Physical Exam General: Alert, Oriented x3, Cooperative Lungs: Diminished Cardiovascular: Regular rate, Regular Rhythm Abdomen: Bowel Sounds Present, Soft, Non Tender Vital Signs Temp Pulse Resp BP Pulse Ox 99.2 F H 82 16 143/62 H 94 03/21/18 02:13 03/21/18 06:19 03/21/18 02:13 03/21/18 02:13 03/21/18 02:15 Oxygen Flow Rate (L/min) 2 Oxygen Delivery Method Room Air Weight: 72.8 kg Body Mass Index (BMI) 25.1 Intake and Output for Last 24 Hours 03/19/18 03/20/18 03/21/18 23:59 23:59 23:59 Intake Total 3093 / 3093 737 / 737 Output Total 3150 / 3150 1525 / 1525 Balance -57 / -57 -788 / -788 Microbiology Past 72 Hours 03/20/18 16:35 Gram Stain - Preliminary Sputum, Expectorated/Coughed Laboratory Tests Past 24 Hrs 03/20/18 03/20/18 03/20/18 05:47 05:47 13:42 WBC 7.9 RBC 3.46 L Hgb 8.6 L Hct 28.6 L MCV 82.7 MCH 24.9 L MCHC 30.1 L RDW 17.1 H RDW Differential 49.7 H Plt Count 355 MPV 7.8 Immature Gran % (Auto) 0.300 Neut % (Auto) 67.2 Lymph % (Auto) 15.6 L [place] % (Auto) 15.4 H Eos % (Auto) 1.4 Baso % (Auto) 0.1 Absolute Neuts (auto) 5.3 Absolute Lymphs (auto) 1.23 Total Counted Not Reportable Differential Comment SCANNED Sodium 137 Potassium 3.4 L Chloride 99 Carbon Dioxide 29.0 Anion Gap 9 BUN 17 Creatinine 0.49 L Estim Creat Clear Calc 142.39 Est GFR (MDRD) Af Amer 220 Est GFR (MDRD) Non-Af 182 BUN/Creatinine Ratio 34.7 H Glucose 94 Calcium 8.2 L Total Bilirubin 0.40 AST 30 ALT 39 Alkaline Phosphatase 72 Total Protein 6.6 Albumin 2.7 L Globulin 3.9 Albumin/Globulin Ratio 0.7 L Vancomycin Trough 9.0 Medical Necessity - Tobacco Use Smoking Status: Former smoker Assessment/Plan All Active Problems Pneumonia (Acute) SBO (small bowel obstruction) (Acute) ileus versus obstruction, pneumonia, chronic pelvic wound The x-ray this morning is likely more an ileus versus obstruction. Initially felt was truly more of an obstructive small bowel pattern but given his past history COPD and pneumonia more likely to believe this is clinically in ileus versus obstruction. CT scan images[facility]disc [facility] does demonstrate an area of narrowing in the small bowel in the pelvis. The patient has had no prior abdominal surgery but did have pelvic radiation. Likely consistent with small bowel radiation injury. Would repeat Ct scan with oral contrast. At this point in time I would plan to treat his underlying pneumonia.
[2018-03-21] MEDS: Piperacil/Tazobactam 3.375 GM/50 ML ML IV ×3 (06:54→21:22)
[2018-03-21] MEDS: 0.9% NaCl PICC Flush IV ×5 (06:55→14:49)
[2018-03-21 07:02] LABS: Absolute Lymphocyte Count 1.01 X10^3/ul (0.83-4.51); Absolute Neutrophil Count 4.5 X10^3/uL (2.0-7.7); Basophil# 0.01 X10^3/uL; Basophil% 0.1 % (0-1); Eosinophil# 0.52 X10^3/uL; Eosinophils% 7.6 % (0-5); Hematocrit 28.6 % (40-54); Hemoglobin 8.6 g/dl (13.0-16.5); Lymphocyte # 1.01 X10^3/ul (4.0); Lymphocyte % 14.7 % (19-41); Mean Corp Hgb Conc 30.1 g/gl (32-36); Mean Corpuscular Hgb 24.7 pg (27.0-32.0); Mean Corpuscular Volume 82.2 fL (80-94); Mean Platelet Vol. 7.8 fl (6.2-12.0); Monocyte# 0.79 X10^3/uL; Monocyte% 11.5 % (0-10); Neutrophil # 4.53 X10^3/uL (2.7-7.7); Platelet Count 282 K/mm3 (150-450); RBC Distribution Width CV 16.7 % (11.6-14.6); RBC Distribution Width SD 50.9 fl (35.1-43.9); Red Blood Count 3.48 M/mm3 (4.6-6.2); White Blood Count 6.9 K/mm3 (4.4-11.0)
[2018-03-21 07:03] LABS: POSITIVE COUNT NO; POSITIVE DIFFERENTIAL NO; POSITIVE MORPHOLOGY NO
[2018-03-21 07:15] LABS: Anion Gap 9 (5-15); BUN 8 mg/dL (7-18); BUN/Creat Ratio 16.9 RATIO (10-20); Chloride 101 mmol/L (98-107); Creatinine, Serum 0.47 mg/dL (0.70-1.30); EST Glomerular Filtration Rate 190 mL/min (>60); Est Glom Filt Rate - Afr Amer 230 mL/min (>60); Estimated Creatinine Clearance 148.45 ml/min; Glucose 90 mg/dL (74-106); Potassium 3.2 mmol/L (3.5-5.1); Sodium Level 137 mmol/L (136-145)
--- NOTE | 2018-03-21 08:27 | NURSING ---
In to reassess the wound to the right ischium. was planning to change the dressing, but patient states it was just done 2 hours ago. it doesn't make sense to do it again. left dressing in place at this time. dressing is to be changed BID. can change dressing later today if nursing staff hasn't already changed it.
[2018-03-21 08:41] LABS: Magnesium 2.1 mg/dL (1.6-2.6)
--- NOTE | 2018-03-21 08:41 | NURSING ---
This RN called radiology and notified that order was received by Dr. Nunez that CT scan from [facility] will need to be uploaded (believe it was uploaded 03/20- verified same) and that it needs to be read by a radiologist. Understanding verbalized- notified that same would be completed.
--- NOTE | 2018-03-21 09:13 | PCM.PROGNOTE ---
Patient Problems: Active and Suspected Problems Pneumonia (Acute) SBO (small bowel obstruction) (Acute) Subjective: Chief complaint: Follow-up after admission for small bowel obstruction and probable healthcare associated pneumonia. Patient seen and examined. No acute events overnight. He had bowel movement last evening. Abdominal pain is getting better. Denied nausea or vomiting. He is still complaining of cough, minimal sputum. Denies fever chills. His vital signs are stable. - Physical Exam General: Alert, Oriented x3, Cooperative, No apparent distress HEENT: Atraumatic, PERRLA, EOMI, Normocephalic Oral: Moist Mucosa, No Gingival or Mucosal Lesions/ Ulcerations Neck: Supple, No JVD, Negative Carotid Bruits, Trachea Midline, Thyroid Normal Size and Texture Lungs: No wheeze, No rales, Diminished, Rhonchi, - - Decreased breath sounds at the bases, scattered rhonchi. Cardiovascular: Regular rate, Regular Rhythm, Normal S1, Normal S2, No murmurs, PMI Normal Abdomen: Soft, Non Tender, Non-Distended, No Hepato-splenomegaly, Hypoactive Bowel Sounds Extremities: No clubbing, No cyanosis, No edema Skin: No rashes, No breakdown Lymphatic: No Cervical, Supraclavicular, or Inguinal Adenopathy Neurological: Cranial nerves II-XII grossly intact, Neuro grossly intact Psych/Mental Status: Normal Affect, Appropriate, Alert and oriented to time, place, person, mood and affect Vital Signs Temp Pulse Resp BP Pulse Ox 98.7 F 78 18 147/67 H 98 03/21/18 07:59 03/21/18 07:59 03/21/18 07:59 03/21/18 07:59 03/21/18 07:59 Oxygen Flow Rate (L/min) 2 Oxygen Delivery Method Room Air Weight: 160 lb 7.944 oz Body Mass Index (BMI) 25.1 Intake and Output for Last 24 Hours 03/19/18 03/20/18 03/21/18 23:59 23:59 23:59 Intake Total 3093 / 3093 737 / 737 Output Total 3150 / 3150 1925 / 1925 Balance -57 / -57 -1188 / -1188 Microbiology Past 72 Hours 03/20/18 16:35 Gram Stain - Preliminary Sputum, Expectorated/Coughed Laboratory Tests Past 24 Hrs 03/20/18 03/21/1803/21/19 13:42 06:10 06:10 WBC 6.9 RBC 3.48 L Hgb 8.6 L Hct 28.6 L MCV 82.2 MCH 24.7 L MCHC 30.1 L RDW 16.7 H RDW Differential 50.9 H Plt Count 282 MPV 7.8 Immature Gran % (Auto) 0.100 Neut % (Auto) 66.0 Lymph % (Auto) 14.7 L [place] % (Auto) 11.5 H Eos % (Auto) 7.6 H Baso % (Auto) 0.1 Absolute Neuts (auto) 4.5 Absolute Lymphs (auto) 1.01 Total Counted Not Reportable Sodium 137 Potassium 3.2 L Chloride 101 Carbon Dioxide 27.0 Anion Gap 9 BUN 8 Creatinine 0.47 L Estim Creat Clear Calc 148.45 Est GFR (MDRD) Af Amer 230 Est GFR (MDRD) Non-Af 190 BUN/Creatinine Ratio 16.9 Glucose 90 Calcium 8.0 L Magnesium Vancomycin Trough 9.0 03/21/18 06:10 WBC RBC Hgb Hct MCV MCH MCHC RDW RDW Differential Plt Count MPV Immature Gran % (Auto) Neut % (Auto) Lymph % (Auto) [place] % (Auto) Eos % (Auto) Baso % (Auto) Absolute Neuts (auto) Absolute Lymphs (auto) Total Counted Sodium Potassium Chloride Carbon Dioxide Anion Gap BUN Creatinine Estim Creat Clear Calc Est GFR (MDRD) Af Amer Est GFR (MDRD) Non-Af BUN/Creatinine Ratio Glucose Calcium Magnesium 2.1 Vancomycin Trough Medical Necessity - Tobacco Use Smoking Status: Former smoker Assessment/Plan All Active Problems Pneumonia (Acute) SBO (small bowel obstruction) (Acute) This is a 63 years old male patient admitted directly from outside facility for ileus versus small bowel obstruction, found to have a right lower lobe and questionable left lower lobe consolidation consistent with healthcare associated pneumonia because of recent admission to the hospital and he has been in the assisted, 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 #1 ileus versus small bowel obstruction: He is on IV fluids, keep on n.p.o., IV pain medications and NG tube suction. He had bowel movement last evening, abdominal pain is improving. His vital signs are stable. Today's potassium is 3.2, still low. General surgery on the case, recommended to do CT scan abdomen and pelvis with oral contrast. Plan to continue same treatment, replace potassium, check serum magnesium. #2 probable bilateral lower lobe healthcare associated pneumonia: He is on IV Zosyn and vancomycin. He has been afebrile, still having cough. Sputum and blood cultures are pending. Pulse ox is maintained on room air. Plan to continue same treatment. 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 Status post surgical debridement of the right pelvic region that was done at [facility] [place]. Reportedly, patient was started on IV vancomycin on and the supposed to stay on IV vancomycin for 6 weeks. IV vancomycin continued. Wound care nurse consulted, proper dressing performed. Plan to continue same treatment. #4 hypertension: Blood pressure stable, continue IV metoprolol. #5 COPD: Clinically stable, denied worsening shortness of breath. Pulse ox is maintained on room air.. Continue albuterol as needed, incentive spirometer, chest physiotherapy. #6 chronic anemia: It is normocytic anemia. Baseline hemoglobin around 8-10 g/dL. No evidence of active bleeding. Today's hemoglobin is 8.6 g/dL, stable. #7 hyperlipidemia: Statin is held. #8 anxiety/depression: Home medications held because he is n.p.o. #9 GERD: He is on on IV Protonix. #10 DVT prophylaxis: Subcu Lovenox. This note was generated with [employer] dictation software. It may contain incorrect words, spelling, and punctuation that were not noted in checking the note before signing. Code Visit Inpatient E&M: 05516 Subs Hosp L2
--- NOTE | 2018-03-21 09:20 | PN_ITS ---
Patient Problems: Active and Suspected Problems Pneumonia (Acute) SBO (small bowel obstruction) (Acute) Subjective: Chief complaint: Follow-up after admission for small bowel obstruction and probable healthcare associated pneumonia. Patient seen and examined. No acute events overnight. He had bowel movement last evening. Abdominal pain is getting better. Denied nausea or vomiting. He is still complaining of cough, minimal sputum. Denies fever chills. His vital signs are stable. - Physical Exam General: Alert, Oriented x3, Cooperative, No apparent distress HEENT: Atraumatic, PERRLA, EOMI, Normocephalic Oral: Moist Mucosa, No Gingival or Mucosal Lesions/ Ulcerations Neck: Supple, No JVD, Negative Carotid Bruits, Trachea Midline, Thyroid Normal Size and Texture Lungs: No wheeze, No rales, Diminished, Rhonchi, - - Decreased breath sounds at the bases, scattered rhonchi. Cardiovascular: Regular rate, Regular Rhythm, Normal S1, Normal S2, No murmurs, PMI Normal Abdomen: Soft, Non Tender, Non-Distended, No Hepato-splenomegaly, Hypoactive Bowel Sounds Extremities: No clubbing, No cyanosis, No edema Skin: No rashes, No breakdown Lymphatic: No Cervical, Supraclavicular, or Inguinal Adenopathy Neurological: Cranial nerves II-XII grossly intact, Neuro grossly intact Psych/Mental Status: Normal Affect, Appropriate, Alert and oriented to time, place, person, mood and affect Vital Signs Temp Pulse Resp BP Pulse Ox 98.7 F 78 18 147/67 H 98 03/21/18 07:59 03/21/18 07:59 03/21/18 07:59 03/21/18 07:59 03/21/18 07:59 Oxygen Flow Rate (L/min) 2 Oxygen Delivery Method Room Air Weight: 160 lb 7.944 oz Body Mass Index (BMI) 25.1 Intake and Output for Last 24 Hours 03/19/18 03/20/18 03/21/18 23:59 23:59 23:59 Intake Total 3093 / 3093 737 / 737 Output Total 3150 / 3150 1925 / 1925 Balance -57 / -57 -1188 / -1188 Microbiology Past 72 Hours 03/20/18 16:35 Gram Stain - Preliminary Sputum, Expectorated/Coughed Laboratory Tests Past 24 Hrs 03/20/18 03/21/1803/21/19 13:42 06:10 06:10 WBC 6.9 RBC 3.48 L Hgb 8.6 L Hct 28.6 L MCV 82.2 MCH 24.7 L MCHC 30.1 L RDW 16.7 H RDW Differential 50.9 H Plt Count 282 MPV 7.8 Immature Gran % (Auto) 0.100 Neut % (Auto) 66.0 Lymph % (Auto) 14.7 L [place] % (Auto) 11.5 H Eos % (Auto) 7.6 H Baso % (Auto) 0.1 Absolute Neuts (auto) 4.5 Absolute Lymphs (auto) 1.01 Total Counted Not Reportable Sodium 137 Potassium 3.2 L Chloride 101 Carbon Dioxide 27.0 Anion Gap 9 BUN 8 Creatinine 0.47 L Estim Creat Clear Calc 148.45 Est GFR (MDRD) Af Amer 230 Est GFR (MDRD) Non-Af 190 BUN/Creatinine Ratio 16.9 Glucose 90 Calcium 8.0 L Magnesium Vancomycin Trough 9.0 03/21/18 06:10 WBC RBC Hgb Hct MCV MCH MCHC RDW RDW Differential Plt Count MPV Immature Gran % (Auto) Neut % (Auto) Lymph % (Auto) [place] % (Auto) Eos % (Auto) Baso % (Auto) Absolute Neuts (auto) Absolute Lymphs (auto) Total Counted Sodium Potassium Chloride Carbon Dioxide Anion Gap BUN Creatinine Estim Creat Clear Calc Est GFR (MDRD) Af Amer Est GFR (MDRD) Non-Af BUN/Creatinine Ratio Glucose Calcium Magnesium 2.1 Vancomycin Trough Medical Necessity - Tobacco Use Smoking Status: Former smoker Assessment/Plan All Active Problems Pneumonia (Acute) SBO (small bowel obstruction) (Acute) This is a 63 years old male patient admitted directly from outside facility for ileus versus small bowel obstruction, found to have a right lower lobe and questionable left lower lobe consolidation consistent with healthcare associated pneumonia because of recent admission to the hospital and he has been in the long-term, 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 #1 ileus versus small bowel obstruction: He is on IV fluids, keep on n.p.o., IV pain medications and NG tube suction. He had bowel movement last evening, abdominal pain is improving. His vital signs are stable. Today's potassium is 3.2, still low. General surgery on the case, recommended to do CT scan abdomen and pelvis with oral contrast. Plan to continue same treatment, replace potassium, check serum magnesium. #2 probable bilateral lower lobe healthcare associated pneumonia: He is on IV Zosyn and vancomycin. He has been afebrile, still having cough. Sputum and blood cultures are pending. Pulse ox is maintained on room air. Plan to continue same treatment. 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 Status post surgical debridement of the right pelvic region that was done at [facility] [place]. Reportedly, patient was started on IV vancomycin on and the supposed to stay on IV vancomycin for 6 weeks. IV vancomycin continued. Wound care nurse consulted, proper dressing performed. Plan to continue same treatment. #4 hypertension: Blood pressure stable, continue IV metoprolol. #5 COPD: Clinically stable, denied worsening shortness of breath. Pulse ox is maintained on room air.. Continue albuterol as needed, incentive spirometer, chest physiotherapy. #6 chronic anemia: It is normocytic anemia. Baseline hemoglobin around 8-10 g/dL. No evidence of active bleeding. Today's hemoglobin is 8.6 g/dL, stable. #7 hyperlipidemia: Statin is held. #8 anxiety/depression: Home medications held because he is n.p.o. #9 GERD: He is on on IV Protonix. #10 DVT prophylaxis: Subcu Lovenox. This note was generated with [employer] dictation software. It may contain incorrect words, spelling, and punctuation that were not noted in checking the note before signing. Code Visit Inpatient E&M: 16175 Subs Hosp L2
[2018-03-21 10:04] LABS: Ferritin 104 ng/mL (26-388); Iron 13 ug/dL (65-175); Iron Binding Capacity,Total 238 ug/dL (250-450); PERCENT IRON SATURATION 5.5 % (15.0-55.0)
[2018-03-21] MEDS: Enoxaparin 40 MG/0.4 ML Syringe SC (10:28)
[2018-03-21] MEDS: 0.9% Normal Saline 1,000 ML 100 ML IV ×2 (10:35→23:29)
[2018-03-21] MEDS: Potassium Chloride 10mEq/100mL 10 MEQ/100 ML IV.SOLN. 100 MEQ IV BOLUS ×3 (11:10→13:19)
--- NOTE | 2018-03-21 11:35 | CASEMGMT ---
Addendum entered by Caroline Og 03/21/18 15:05: Per Hospitalist, pt is not ready for discharge today. Original Note: RUBEN MEDEIROS received updated from Tala at [facility] that precert was obtained and good for 24 hours. RUBEN MEDEIROS will updated SHAHANA Og. Hospitalist also updated.
--- NOTE | 2018-03-21 15:58 | CHAPLAIN ---
Type of Pastoral Visit _x__ Initial Visit ___ Follow-up Visit ___ On-call Visit ___ General Patient Visit ___ Spiritual Assessment ___ Family Conference ___ Bereavement ___ Rapid Response ___ Code Blue ___ Other (describe below) Pastoral Care Referral From _x__ Patient ___ Family ___ Nurse ___ Physician ___ Bead Stringer ___ [place] ___ Other (describe below) Sacrament/Intervention _x__ Active listening ___ Anointing ___ Quaker ___ Bereavement ___ Communion ___ Becka exploration ___ ___ Life review _x__ Prayer ___ Reconciliation ___ Sacrament of Sick _x__ Supportive presence ___ Wedding ___ Other (describe below) Pastoral Comments
[2018-03-22] VITALS (8 sets, daily range): BP systolic 141–154; BP diastolic 65–92; PULSE 67–87; RESP 16–18; TEMP 37.2–37.6; O2SAT 93–96
[2018-03-22] MEDS: Morphine 2 MG/ML Syringe IV ×4 (02:56→20:22)
--- NOTE | 2018-03-22 05:00 | RAD_ITS ---
STUDY: X-RAY - ABDOMEN/PELVIS REASON FOR EXAM: Male, 63 years old. History of small bowel obstruction. TECHNIQUE: Two AP supine views of the abdomen and pelvis. COMPARISON: Comparison is made with prior study dated March 20, 2018. FINDINGS: Mild increased linear markings at the lung bases suggests mild bibasilar atelectasis. The previously seen nasogastric tube has been removed. Oral contrast is seen within the colon. There is no evidence of bowel obstruction at this time. Moderate distention of the urinary bladder. Normal soft tissue structures. There are diffuse degenerative changes of the visualized lumbar spine. Status post left hip replacement. RAD/Abd Inc Decub and/or Erect IMPRESSION: Oral contrast is seen within the colon. There is no evidence of bowel obstruction. The nasogastric tube has been removed. Electronically Signed: Aayush Ibarra MD at 8:27 EST Tel [phone], Service support ,
[2018-03-22 05:31] LABS: Hemoglobin 9.6 g/dl (13.0-16.5)
[2018-03-22 05:52] LABS: Potassium 3.6 mmol/L (3.5-5.1)
[2018-03-22] MEDS: Piperacil/Tazobactam 3.375 GM/50 ML ML IV (05:56)
[2018-03-22] MEDS: Vancomycin IV 1,000 MG/200 ML BAG 200 MG IV ×3 (05:56→22:17)
[2018-03-22 05:59] LABS: Vancomycin, Trough Level 16.4 ug/mL (5.0-15.0)
[2018-03-22] MEDS: Metoprolol Tartrate 5 MG/5 ML Vial IV (05:59)
--- NOTE | 2018-03-22 06:05 | PCM.RX.CS ---
Consult Pharmacy has been consulted to manage selected antiobiotic: Vancomycin Type of Consult: Follow-up Suspected Infection: Pneumonia Prior Doses of Antibiotics Received/Current Regimen: Medications Vancomycin HCl (Vancomycin) 1,000 mg in 200 mls @ 200 mls/hr IV Q8H DHARA Stop: 03/30/18 23:59 Last Admin: 03/22/18 05:56 Dose: 200 mls/hr Labs: Sodium 137 mmol/L (136-145) 03/21/18 06:10 Potassium 3.6 mmol/L (3.5-5.1) 03/22/18 05:14 Chloride 101 mmol/L (98-107) 03/21/18 06:10 Carbon Dioxide 27.0 mmol/L (21.0-32.0) 03/21/18 06:10 Anion Gap 9 (5-15) 03/21/18 06:10 BUN 8 mg/dL (7-18) 03/21/18 06:10 Creatinine 0.47 mg/dL (0.70-1.30) L 03/21/18 06:10 Est GFR (MDRD) Af Amer 230 mL/min (>60) 03/21/18 06:10 Est GFR (MDRD) Non-Af 190 mL/min (>60) 03/21/18 06:10 BUN/Creatinine Ratio 16.9 RATIO (10-20) 03/21/18 06:10 Glucose 90 mg/dL (74-106) 03/21/18 06:10 Vancomycin Trough 16.4 ug/mL (5.0-15.0) H 03/22/18 05:14 Microbiology: Microbiology 03/20/18 16:35 Sputum, Expectorated/Coughed Gram Stain - Final 03/20/18 16:35 Sputum, Expectorated/Coughed Respiratory Culture - Preliminary GNR lactose field service analyst Gram negative jesus Weight used for dosin.8 kg Estimated Creatinine Clearance: 148 Goal Trough: 10-15 mcg/mL Pharmacy Plan for Drug Dosing: Trough level returned at 16.4. Slightly higher than target range, but considering pneumonia diagnosis will continue with 1g q8h. Will redraw trough in 24hrs to monitor. Pharmacy Service will continue to monitor and adjust dosing as required. Follow-Up Labs: Trough Vancomycin Labs to be done on [date and time ordered]: 03/23/18 @[id number]
--- NOTE | 2018-03-22 06:09 | PHA.PHARE_ITS ---
Consult Pharmacy has been consulted to manage selected antiobiotic: Vancomycin Type of Consult: Follow-up Suspected Infection: Pneumonia Prior Doses of Antibiotics Received/Current Regimen: Medications Vancomycin HCl (Vancomycin) 1,000 mg in 200 mls @ 200 mls/hr IV Q8H DHARA Stop: 03/30/18 23:59 Last Admin: 03/22/18 05:56 Dose: 200 mls/hr Labs: Sodium 137 mmol/L (136-145) 03/21/18 06:10 Potassium 3.6 mmol/L (3.5-5.1) 03/22/18 05:14 Chloride 101 mmol/L (98-107) 03/21/18 06:10 Carbon Dioxide 27.0 mmol/L (21.0-32.0) 03/21/18 06:10 Anion Gap 9 (5-15) 03/21/18 06:10 BUN 8 mg/dL (7-18) 03/21/18 06:10 Creatinine 0.47 mg/dL (0.70-1.30) L 03/21/18 06:10 Est GFR (MDRD) Af Amer 230 mL/min (>60) 03/21/18 06:10 Est GFR (MDRD) Non-Af 190 mL/min (>60) 03/21/18 06:10 BUN/Creatinine Ratio 16.9 RATIO (10-20) 03/21/18 06:10 Glucose 90 mg/dL (74-106) 03/21/18 06:10 Vancomycin Trough 16.4 ug/mL (5.0-15.0) H 03/22/18 05:14 Microbiology: Microbiology 03/20/18 16:35 Sputum, Expectorated/Coughed Gram Stain - Final 03/20/18 16:35 Sputum, Expectorated/Coughed Respiratory Culture - Preliminary GNR lactose multi skilled operator Gram negative jesus Weight used for dosin.8 kg Estimated Creatinine Clearance: 148 Goal Trough: 10-15 mcg/mL Pharmacy Plan for Drug Dosing: Trough level returned at 16.4. Slightly higher than target range, but considering pneumonia diagnosis will continue with 1g q8h. Will redraw trough in 24hrs to monitor. Pharmacy Service will continue to monitor and adjust dosing as required. Follow-Up Labs: Trough Vancomycin Labs to be done on [date and time ordered]: 03/23/18 @[id number]
--- NOTE | 2018-03-22 06:43 | PN.SURG_ITS ---
Patient Problems: Active and Suspected Problems Pneumonia (Acute) SBO (small bowel obstruction) (Acute) Subjective: multiple bowel movements yesterday, ? flatus - Physical Exam General: Alert, Oriented x3, Cooperative HEENT: Atraumatic, PERRLA, EOMI, Normocephalic Lungs: Diminished - bases, Rales Cardiovascular: Regular rate, Regular Rhythm Abdomen: Bowel Sounds Present, Soft, Non Tender Vital Signs Temp Pulse Resp BP Pulse Ox 99.7 F H 84 18 152/92 H 95 03/22/18 02:59 03/22/18 05:59 03/22/18 02:59 03/22/18 05:59 03/22/18 02:59 Oxygen Flow Rate (L/min) 2 Oxygen Delivery Method Room Air Weight: 72.8 kg Body Mass Index (BMI) 25.1 Intake and Output for Last 24 Hours 03/20/18 03/21/18 03/22/18 23:59 23:59 23:59 Intake Total 3093 / 3093 2414 / 2414 1429 / 1429 Output Total 3150 / 3150 3575 / 3575 1750 / 1750 Balance -57 / -57 -1161 / -1161 -321 / -321 Microbiology Past 72 Hours 03/20/18 16:35 Gram Stain - Final Sputum, Expectorated/Coughed Respiratory Culture - Preliminary GNR lactose acute care occupational therapist Gram negative jesus Laboratory Tests Past 24 Hrs 03/20/18 03/20/18 03/21/18 13:42 13:42 06:10 WBC 6.9 RBC 3.48 L Hgb 8.6 L Hct 28.6 L MCV 82.2 MCH 24.7 L MCHC 30.1 L RDW 16.7 H RDW Differential 50.9 H Plt Count 282 MPV 7.8 Immature Gran % (Auto) 0.100 Neut % (Auto) 66.0 Lymph % (Auto) 14.7 L [place] % (Auto) 11.5 H Eos % (Auto) 7.6 H Baso % (Auto) 0.1 Absolute Neuts (auto) 4.5 Absolute Lymphs (auto) 1.01 Total Counted Not Reportable Sodium Potassium Chloride Carbon Dioxide Anion Gap BUN Creatinine Estim Creat Clear Calc Est GFR (MDRD) Af Amer Est GFR (MDRD) Non-Af BUN/Creatinine Ratio Glucose Calcium Magnesium Iron 13 L TIBC 238 L Iron Saturation 5.5 L Transferrin Pending Ferritin 104 Vancomycin Trough 03/21/18 03/21/18 03/22/18 06:10 06:10 05:14 WBC RBC Hgb Hct MCV MCH MCHC RDW RDW Differential Plt Count MPV Immature Gran % (Auto) Neut % (Auto) Lymph % (Auto) [place] % (Auto) Eos % (Auto) Baso % (Auto) Absolute Neuts (auto) Absolute Lymphs (auto) Total Counted Sodium 137 Potassium 3.2 L Chloride 101 Carbon Dioxide 27.0 Anion Gap 9 BUN 8 Creatinine 0.47 L Estim Creat Clear Calc 148.45 Est GFR (MDRD) Af Amer 230 Est GFR (MDRD) Non-Af 190 BUN/Creatinine Ratio 16.9 Glucose 90 Calcium 8.0 L Magnesium 2.1 Iron TIBC Iron Saturation Transferrin Ferritin Vancomycin Trough 16.4 H 03/22/18 03/22/18 05:14 05:14 WBC RBC Hgb 9.6 L Hct 32.0 L MCV MCH MCHC RDW RDW Differential Plt Count MPV Immature Gran % (Auto) Neut % (Auto) Lymph % (Auto) [place] % (Auto) Eos % (Auto) Baso % (Auto) Absolute Neuts (auto) Absolute Lymphs (auto) Total Counted Sodium Potassium 3.6 Chloride Carbon Dioxide Anion Gap BUN Creatinine Estim Creat Clear Calc Est GFR (MDRD) Af Amer Est GFR (MDRD) Non-Af BUN/Creatinine Ratio Glucose Calcium Magnesium Iron TIBC Iron Saturation Transferrin Ferritin Vancomycin Trough Medical Necessity - Tobacco Use Smoking Status: Former smoker Assessment/Plan All Active Problems Pneumonia (Acute) SBO (small bowel obstruction) (Acute) ileus versus obstruction, pneumonia, chronic pelvic wound Initial KUB was felt to more likely be an ileus versus obstruction. Initially felt was truly more of an obstructive was report from [place] small bowel pattern but given his past history COPD and pneumonia more likely to believe this is clinically in ileus versus obstruction. CT scan images[facility]disc from [facility] does demonstrate an area of narrowing in the small bowel in the pelvis. The patient has had no prior abdominal surgery but did have pelvic radiation. Likely consistent with small bowel radiation injury. Follow up CT scan yesterday demonstrated no significant small bowel distention and contrast to colon. NG was clamped and patient tolerated well - NG removed. Will check abdominal multiview this morning. start clears and advance as tolerated. Please re consult me if further input needed.
--- NOTE | 2018-03-22 08:59 | PCM.PROGNOTE ---
Patient Problems: Active and Suspected Problems Pneumonia (Acute) SBO (small bowel obstruction) (Acute) Subjective: Chief complaint: Follow-up after admission for small bowel obstruction versus ileus and healthcare associated pneumonia. Patient seen and examined. No acute events overnight. He still having bowel movements, started to pass flatus. No more abdominal pain. Denied nausea vomiting. Complains of intermittent mild dry cough. Denies fever chills. His vital signs are stable. - Physical Exam General: Alert, Oriented x3, Cooperative, No apparent distress HEENT: Atraumatic, PERRLA, EOMI, Normocephalic Oral: Moist Mucosa, No Gingival or Mucosal Lesions/ Ulcerations Neck: Supple, No JVD, Negative Carotid Bruits, Trachea Midline, Thyroid Normal Size and Texture Lungs: No wheeze, No rales, Diminished, Rhonchi, - - Decreased breath sounds at the bases, scattered rhonchi. Cardiovascular: Regular rate, Regular Rhythm, Normal S1, Normal S2, PMI Normal Abdomen: Bowel Sounds Present, Soft, Non Tender, Non-Distended, No Hepato-splenomegaly Extremities: No clubbing, No cyanosis, No edema Skin: No rashes, No breakdown Lymphatic: No Cervical, Supraclavicular, or Inguinal Adenopathy Neurological: Cranial nerves II-XII grossly intact, Neuro grossly intact Psych/Mental Status: Normal Affect, Appropriate, Alert and oriented to time, place, person, mood and affect Vital Signs Temp Pulse Resp BP Pulse Ox 99.7 F H 84 18 152/92 H 95 03/22/18 02:59 03/22/18 05:59 03/22/18 02:59 03/22/18 05:59 03/22/18 02:59 Oxygen Flow Rate (L/min) 2 Oxygen Delivery Method Room Air Weight: 160 lb 7.944 oz Body Mass Index (BMI) 25.1 Intake and Output for Last 24 Hours 03/20/18 03/21/18 03/22/18 23:59 23:59 23:59 Intake Total 3093 / 3093 2414 / 2414 1429 / 1429 Output Total 3150 / 3150 3575 / 3575 1750 / 1750 Balance -57 / -57 -1161 / -1161 -321 / -321 Microbiology Past 72 Hours 03/20/18 16:35 Gram Stain - Final Sputum, Expectorated/Coughed Respiratory Culture - Preliminary Escherichia coli Klebsiella pneumoniae sp pneum 03/20/18 00:33 Blood Culture - Preliminary Blood Culture (Wb) - Right Hand No growth in 48 hours. 03/20/18 00:33 Blood Culture - Preliminary Blood Culture (Wb) - Right Hand No growth in 48 hours. Laboratory Tests Past 24 Hrs 03/20/18 03/20/18 03/22/18 13:42 13:42 05:14 Hgb Hct Potassium Iron 13 L TIBC 238 L Iron Saturation 5.5 L Transferrin Pending Ferritin 104 Vancomycin Trough 16.4 H 03/22/18 03/22/18 05:14 05:14 Hgb 9.6 L Hct 32.0 L Potassium 3.6 Iron TIBC Iron Saturation Transferrin Ferritin Vancomycin Trough Clinical Impression(s) from Imaging Studies Abdomen X-Ray 03/22/18 05:00 IMPRESSION: Oral contrast is seen within the colon. There is no evidence of bowel obstruction. The nasogastric tube has been removed. 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 #1 ileus versus small bowel obstruction: Repeat CT scan abdomen and pelvis reviewed. Patient started passing flatus, has been having bowel movements. No more abdominal pain. NG tube taken out. Started on clear liquids. Potassium replaced and corrected. General surgery on the case. Plan to advance diet as tolerated. #2 ESBL/Klebsiella pneumoniae bilateral lower lobe healthcare associated pneumonia: He is on IV Zosyn and vancomycin. Remained afebrile, no leukocytosis, other vital signs are stable. Blood culture showed no growth in 48 hours. Sputum culture revealed E. coli that was ESBL and Klebsiella pneumoniae. Plan: DC IV Zosyn, start IV meropenem, infectious disease consult, continue IV vancomycin. 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 Status post surgical debridement of the right pelvic region that was done at [facility] Main trail. Reportedly, patient was started on IV vancomycin on and the supposed to stay on IV vancomycin for 6 weeks. IV vancomycin continued. Wound care nurse consulted, proper dressing performed. Plan to continue same treatment. #4 hypertension: Blood pressure stable, resume oral metoprolol, DC IV metoprolol. #5 COPD: Clinically stable, denied worsening shortness of breath. Pulse ox is maintained on room air.. Continue albuterol as needed, incentive spirometer, chest physiotherapy. #6 chronic anemia: It is normocytic anemia. Baseline hemoglobin around 8-10 g/dL. No evidence of active bleeding. Today's hemoglobin is 9.6 g/dL, stable. #7 hyperlipidemia: Resume statins. #8 anxiety/depression: Resume Wellbutrin, buspirone and Lexapro. #9 GERD: DC IV Protonix, start oral Protonix. #10 DVT prophylaxis: Subcu Lovenox. This note was generated with [employer] dictation software. It may contain incorrect words, spelling, and punctuation that were not noted in checking the note before signing. Code Visit Inpatient E&M: 99750 Subs Hosp L2
--- NOTE | 2018-03-22 09:04 | PN_ITS ---
Patient Problems: Active and Suspected Problems Pneumonia (Acute) SBO (small bowel obstruction) (Acute) Subjective: Chief complaint: Follow-up after admission for small bowel obstruction versus ileus and healthcare associated pneumonia. Patient seen and examined. No acute events overnight. He still having bowel movements, started to pass flatus. No more abdominal pain. Denied nausea vomiting. Complains of intermittent mild dry cough. Denies fever chills. His vital signs are stable. - Physical Exam General: Alert, Oriented x3, Cooperative, No apparent distress HEENT: Atraumatic, PERRLA, EOMI, Normocephalic Oral: Moist Mucosa, No Gingival or Mucosal Lesions/ Ulcerations Neck: Supple, No JVD, Negative Carotid Bruits, Trachea Midline, Thyroid Normal Size and Texture Lungs: No wheeze, No rales, Diminished, Rhonchi, - - Decreased breath sounds at the bases, scattered rhonchi. Cardiovascular: Regular rate, Regular Rhythm, Normal S1, Normal S2, PMI Normal Abdomen: Bowel Sounds Present, Soft, Non Tender, Non-Distended, No Hepato- splenomegaly Extremities: No clubbing, No cyanosis, No edema Skin: No rashes, No breakdown Lymphatic: No Cervical, Supraclavicular, or Inguinal Adenopathy Neurological: Cranial nerves II-XII grossly intact, Neuro grossly intact Psych/Mental Status: Normal Affect, Appropriate, Alert and oriented to time, place, person, mood and affect Vital Signs Temp Pulse Resp BP Pulse Ox 99.7 F H 84 18 152/92 H 95 03/22/18 02:59 03/22/18 05:59 03/22/18 02:59 03/22/18 05:59 03/22/18 02:59 Oxygen Flow Rate (L/min) 2 Oxygen Delivery Method Room Air Weight: 160 lb 7.944 oz Body Mass Index (BMI) 25.1 Intake and Output for Last 24 Hours 03/20/18 03/21/18 03/22/18 23:59 23:59 23:59 Intake Total 3093 / 3093 2414 / 2414 1429 / 1429 Output Total 3150 / 3150 3575 / 3575 1750 / 1750 Balance -57 / -57 -1161 / -1161 -321 / -321 Microbiology Past 72 Hours 03/20/18 16:35 Gram Stain - Final Sputum, Expectorated/Coughed Respiratory Culture - Preliminary Escherichia coli Klebsiella pneumoniae sp pneum 03/20/18 00:33 Blood Culture - Preliminary Blood Culture (Wb) - Right Hand No growth in 48 hours. 03/20/18 00:33 Blood Culture - Preliminary Blood Culture (Wb) - Right Hand No growth in 48 hours. Laboratory Tests Past 24 Hrs 03/20/18 03/20/18 03/22/18 13:42 13:42 05:14 Hgb Hct Potassium Iron 13 L TIBC 238 L Iron Saturation 5.5 L Transferrin Pending Ferritin 104 Vancomycin Trough 16.4 H 03/22/18 03/22/18 05:14 05:14 Hgb 9.6 L Hct 32.0 L Potassium 3.6 Iron TIBC Iron Saturation Transferrin Ferritin Vancomycin Trough Clinical Impression(s) from Imaging Studies Abdomen X-Ray 03/22/18 05:00 IMPRESSION: Oral contrast is seen within the colon. There is no evidence of bowel obstruction. The nasogastric tube has been removed. 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 #1 ileus versus small bowel obstruction: Repeat CT scan abdomen and pelvis reviewed. Patient started passing flatus, has been having bowel movements. No more abdominal pain. NG tube taken out. Started on clear liquids. Potassium replaced and corrected. General surgery on the case. Plan to advance diet as tolerated. #2 ESBL/Klebsiella pneumoniae bilateral lower lobe healthcare associated pneumonia: He is on IV Zosyn and vancomycin. Remained afebrile, no leukocytosis, other vital signs are stable. Blood culture showed no growth in 48 hours. Sputum culture revealed E. coli that was ESBL and Klebsiella pneumoniae. Plan: DC IV Zosyn, start IV meropenem, infectious disease consult, continue IV vancomycin. 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 Status post surgical debridement of the right pelvic region that was done at [facility] Main levels. Reportedly, patient was started on IV vancomycin on and the supposed to stay on IV vancomycin for 6 weeks. IV vancomycin continued. Wound care nurse consulted, proper dressing performed. Plan to continue same treatment. #4 hypertension: Blood pressure stable, resume oral metoprolol, DC IV metoprolol. #5 COPD: Clinically stable, denied worsening shortness of breath. Pulse ox is maintained on room air.. Continue albuterol as needed, incentive spirometer, chest physiotherapy. #6 chronic anemia: It is normocytic anemia. Baseline hemoglobin around 8-10 g/dL. No evidence of active bleeding. Today's hemoglobin is 9.6 g/dL, stable. #7 hyperlipidemia: Resume statins. #8 anxiety/depression: Resume Wellbutrin, buspirone and Lexapro. #9 GERD: DC IV Protonix, start oral Protonix. #10 DVT prophylaxis: Subcu Lovenox. This note was generated with [employer] dictation software. It may contain incorrect words, spelling, and punctuation that were not noted in checking the note before signing. Code Visit Inpatient E&M: 63600 Subs Hosp L2
[2018-03-22] MEDS: 0.9% NaCl PICC Flush IV ×4 (09:35→20:22)
[2018-03-22] MEDS: Escitalopram Oxalate 10 MG Tablet PO (09:39)
[2018-03-22] MEDS: Pantoprazole Sodium 40 MG Tablet PO (09:39)
[2018-03-22] MEDS: Enoxaparin 40 MG/0.4 ML Syringe SC (09:39)
[2018-03-22] MEDS: Metoprolol Tartrate 50 MG Tablet PO ×2 (09:39→22:16)
[2018-03-22] MEDS: buPROPion (XL) 300 MG TABLET.XL PO (10:01)
[2018-03-22] MEDS: Ezetimibe 10 MG Tablet PO (10:01)
--- NOTE | 2018-03-22 11:05 | PCM.HP.ID ---
Problem List (1) Methicillin resistant Staphylococcus aureus infection Status: Inactive Reason for Consult: esbl (+) Consulted by: Dr. De La Fuente History of Present Illness: The patient is a 63 year old M with recurrent pelvic osteo with h/o radiation therapy to the area, now presenting with sudden onset of excrutiating abd pain, n/v. Has some chronic diarrhea. Was admitted to [place] 02/06 with sepsis, found to have MRSA in blood and pelvis/hip infection with wound cx also (+) for GNR, enterobacter, serratia, and proteus. Cleared bcx with ceftaroline, transferred to [facility] for surgery. Taken to OR 02/15 for washout of R hip. Discharged on 6 weeks IV ceftaroline with stop date 03/30/[address] Denny with ID. Facility could not afford the abx, switched to po abx, ID was called, and changed to iv vanc. Wounds have been doing well, no fever, no issues with picc. He also reports several days of cough with sputum, no SOB. Taken to ED, found to have SBO and pneumonia. Given iv vanc, started on ceftriaxone then zosyn then meropenem once sputum cx identified as esbl ecoli and klebs. Feeling better, still some abd soreness. Full ROS performed and neg except as noted above. 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) Anal cancer (Chronic) Hepatitis C carrier (Chronic) COPD (chronic obstructive pulmonary disease) (Chronic) Anxiety and depression (Chronic) HTN (hypertension) (Chronic) HLD (hyperlipidemia) (Chronic) GERD (gastroesophageal reflux disease) (Chronic) PAD (peripheral artery disease) (Chronic) Hyponatremia (Chronic) suspected to be from water drinking Allergies/Adverse Reactions: Allergies povidone-iodine [From Betadine] Allergy (Verified 01/19/18 13:50) Hives Zklhxys-Oax-Nia Reductase Inhibitor Adverse Reaction (Verified 01/19/18 13:50) MESSED MY LIVER UP adhesive tape Allergy (Uncoded 01/19/18 13:50) Itching/rash Home Medications: Ambulatory Orders Medication Instructions Recorded Aspirin [Aspirin, Baby] 81 mg PO DAILY@0800 03/22/16 Escitalopram Oxalate [Lexapro] 10 mg PO DAILY 03/22/16 Ezetimibe [Zetia] 10 mg PO DAILY 03/22/16 Fluticasone 0.05% [Flonase Nasal 2 spray NASAL DAILY 03/22/16 Success] Multivitamin [Multiple Vitamins] 1 each PO DAILY 03/22/16 buPROPion XL [Wellbutrin Xl] 300 mg PO DAILY 03/22/16 busPIRone [Buspar] 5 mg PO TID 03/22/16 Tiotropium [place] [Spiriva 2 puff INHALATION DAILY 10/20/16 Respimat] Cholecalciferol (Vitamin D3) 1,000 unit PO DAILY 12/09/16 [Vitamin D3] Tizanidine HCl [Zanaflex] 4 mg PO Q8H PRN PRN 12/27/16 Gabapentin [Neurontin] 600 mg PO TID 01/19/18 Metoprolol Tartrate [Lopressor 50 mg PO BID 01/19/18 (beta curt)] Acetaminophen [Tylenol] 650 mg PO Q4H PRN PRN 03/19/18 Albuterol Aerosols [Ventolin 2.5 mg INHALATION Q4H PRN PRN 03/19/18 Aerosols] Benzocaine/Menthol [Cepacol Sore 1 lozenge PO Q2H PRN PRN 03/19/18 Throat Lozenge] Benzonatate [Tessalon Perle] 100 mg PO TID 03/19/18 Calcium Polycarbophil [Fibercon] 1 tab PO TID 03/19/18 Diphenoxylate HCl/Atropine 2 cap PO Q6H PRN PRN 03/19/18 [Lomotil 2.5-0.025 mg Tablet] Guaifenesin Dm [Robitussin Dm] 5 ml PO Q4H PRN PRN 03/19/18 Ibuprofen [Ibu] 800 mg PO Q8H PRN PRN 03/19/18 Oxycodone HCl/Acetaminophen 2 tablet PO Q6H PRN PRN 03/19/18 [Percocet 10-325 mg Tablet] Oxycodone [Oxyir] 5 mg PO Q6H PRN PRN 03/19/18 Pantoprazole Sodium [Protonix] 40 mg PO DAILY 03/19/18 Testosterone [Androderm 2mg/24 hr] 1 each TD DAILY 03/19/18 Vancomycin/0.9 % Sod Chloride 1 gm IV TID 03/19/18 [Vanco 1 Gram/150 ml-0.9% NaCl] - Social History SMOKING STATUS:: Former smoker Vital Signs Temp Pulse Resp BP Pulse Ox 99.0 F 82 18 150/73 H 96 03/22/18 09:32 03/22/18 09:39 03/22/18 09:32 03/22/18 09:39 03/22/18 09:32 Oxygen Flow Rate (L/min) 2 Oxygen Delivery Method Room Air Weight: 72.8 kg Body Mass Index (BMI) 25.1 Microbiology Past 72 Hours 03/20/18 16:35 Gram Stain - Final Sputum, Expectorated/Coughed Respiratory Culture - Preliminary Escherichia coli Klebsiella pneumoniae sp pneum 03/20/18 00:33 Blood Culture - Preliminary Blood Culture (Wb) - Right Hand No growth in 48 hours. 03/20/18 00:33 Blood Culture - Preliminary Blood Culture (Wb) - Right Hand No growth in 48 hours. Laboratory Tests Past 24 Hrs 03/22/18 03/22/18 03/22/18 05:14 05:14 05:14 Hgb 9.6 L Hct 32.0 L Potassium 3.6 Vancomycin Trough 16.4 H - Other Studies Radiology: [] reviewed Other Studies: [] Route of nutrition/ use of supplements: [] Nutritional Intake: [] IV Site: [] Walker Catheter: [] - Physical Exam General: Alert, Oriented x3, Cooperative, No apparent distress HEENT: Atraumatic, PERRLA, EOMI Neck: Supple, No Nodes Lungs: Clear to auscultation, Diminished - in bases Cardiovascular: Regular rate, Regular Rhythm, No murmurs Abdomen: Soft, Non-Distended, Tender - mild diffuse Extremities: No edema Skin: No rashes, Ulcer/ Wound - reviewed photo R ischial ulcer IV Site: PICC, without redness Musculoskeletal: No Tenderness to Palpation of Joints or Extremities Neurological: Cranial nerves II-XII grossly intact - Assessment/Plan Antibiotics: [] Assessment/Plan: [] Active and Suspected Problems Pneumonia (Acute) SBO (small bowel obstruction) (Acute) ESBL ecoli and klebs CAP - improving on meropenem. Ecoli is an unusual respiratory pathogen. Fever resolved, no leukocytosis. MRSA pelvic osteo - on iv vanc with planned stop date ; has been managed by Dr. Denny with [facility]. Trough near goal at this point. Wound doing well. Thank you, will follow.
[2018-03-22] MEDS: Gabapentin 600 MG Tablet PO ×2 (13:36→22:17)
--- NOTE | 2018-03-22 13:58 | CASEMGMT ---
Social Work Note Per physician, pt is not ready for discharge today. SHAHANA placed a call to Tala at [facility] and updated her on this. Per Tala she will need to submit for pre-cert again. SHAHANA faxed updated clinicals to [facility]. Plan: [facility] pending pre-cert Caroline Og BACTERIOLOGY PROFESSOR, SPRING FITTER HELPER
[2018-03-22] MEDS: busPIRone 5 MG Tablet PO ×2 (14:37→22:16)
[2018-03-22 14:47] LABS: Transferrin 215 mg/dL (200-370)
[2018-03-23 02:05] VITALS: BP 161/74; PULSE 87; RESP 18; TEMP 37.4; O2SAT 95
[2018-03-23] MEDS: Morphine 2 MG/ML Syringe IV ×2 (02:21→14:17)
[2018-03-23] MEDS: 0.9% NaCl PICC Flush IV ×2 (02:21→14:20)
--- NOTE | 2018-03-23 03:16 | NURSING ---
Called Juan in lab to make sure they had a Vanc trough for this pt for 0530 this am. He acknowledged that they were aware of the draw.
[2018-03-23 06:15] LABS: Vancomycin, Trough Level 16.4 ug/mL (5.0-15.0)
[2018-03-23] MEDS: busPIRone 5 MG Tablet PO ×2 (06:28→14:15)
[2018-03-23] MEDS: Gabapentin 600 MG Tablet PO ×2 (06:28→14:15)
[2018-03-23] MEDS: Vancomycin IV 1,000 MG/200 ML BAG 200 MG IV (06:34)
[2018-03-23 08:15] VITALS: BP 167/88; PULSE 68; RESP 16; TEMP 37.2; O2SAT 95
[2018-03-23 08:17] VITALS: PULSE 68
[2018-03-23] MEDS: Ezetimibe 10 MG Tablet PO (08:17)
[2018-03-23] MEDS: Escitalopram Oxalate 10 MG Tablet PO (08:17)
[2018-03-23] MEDS: Pantoprazole Sodium 40 MG Tablet PO (08:17)
[2018-03-23] MEDS: Metoprolol Tartrate 50 MG Tablet PO (08:17)
[2018-03-23] MEDS: buPROPion (XL) 300 MG TABLET.XL PO (08:17)
[2018-03-23] MEDS: Enoxaparin 40 MG/0.4 ML Syringe SC (08:18)
[2018-03-23] MEDS: Aspirin 81 MG TAB.CHEW PO (08:18)
[2018-03-23 08:28] VITALS: O2SAT 94
--- NOTE | 2018-03-23 08:59 | NURSING ---
placed call to Dr Wright's office at [facility], a plastic surgeon who was scheduled for a follow-up appointment today. informed the office that pt had been admitted here, would need to reschedule his appointment and asked if there was anything we needed to check for them while he was here. they confirmed that they would reschedule follow up appointment with patient.
--- NOTE | 2018-03-23 10:55 | PCM.PN.ID ---
Patient Problems: Active and Suspected Problems Pneumonia (Acute) SBO (small bowel obstruction) (Acute) Subjective: Feeling better, breathing well, no fever, no cough. - Physical Exam General: Alert, Cooperative, No apparent distress Lungs: Normal air movement, Rhonchi - R base Cardiovascular: Regular rate, Regular Rhythm Abdomen: Soft, Non Tender, Non-Distended Skin: No rashes, Ulcer/ Wound - R ischium Vital Signs Temp Pulse Resp BP Pulse Ox 98.9 F 68 16 167/88 H 94 03/23/18 08:15 03/23/18 08:17 03/23/18 08:15 03/23/18 08:15 03/23/18 08:28 Oxygen Flow Rate (L/min) 2 Oxygen Delivery Method Room Air Weight: 72.8 kg Body Mass Index (BMI) 25.1 Intake and Output for Last 24 Hours 03/21/18 03/22/18 03/23/18 23:59 23:59 23:59 Intake Total 2414 / 2414 4302 / 4302 395 / 395 Output Total 3575 / 3575 2475 / 2475 Balance -1161 / -1161 1827 / 1827 395 / 395 Microbiology Past 72 Hours 03/20/18 16:35 Gram Stain - Final Sputum, Expectorated/Coughed Respiratory Culture - Final Escherichia coli Klebsiella pneumoniae sp pneum 03/20/18 00:33 Blood Culture - Preliminary Blood Culture (Wb) - Right Hand No growth in 48 hours. 03/20/18 00:33 Blood Culture - Preliminary Blood Culture (Wb) - Right Hand No growth in 48 hours. Laboratory Tests Past 24 Hrs 03/20/18 03/23/18 13:42 05:29 Transferrin 215 Vancomycin Trough 16.4 H Medical Necessity - Tobacco Use Smoking Status: Former smoker Route of nutrition/ use of supplements: [] Nutritional Intake: [] IV Site: [] Walker Catheter: [] - Assessment/Plan Antibiotics: [] Assessment/Plan: [] Active and Suspected Problems Pneumonia (Acute) SBO (small bowel obstruction) (Acute) ESBL ecoli and klebs CAP - improving on meropenem. Ecoli is an unusual respiratory pathogen. Fever resolved, no leukocytosis. Ok for d/c to [facility] on ertapenem, stop date 03/27, rx written. MRSA pelvic osteo - on iv vanc with planned stop date ; has been managed by Dr. Denny with [facility]. Trough near goal at this point. Wound doing well. will follow.
--- NOTE | 2018-03-23 11:25 | TREXTCAR_ITS ---
- Diet 03/22/18 16:47 Diet: Regular Diet Is pt able to select menu?: Yes - Wound(s) RIGHT GROIN Wound Type: Surgical Incision RIGHT BUTTOCK Wound Type: Pressure Injury right ischium Wound Type: Pressure Injury Dressing Change: Wet to Dry Dressing - Suggestions for Active Care Change Position every (hours): 3 Hours to sit in a chair: 2 Times a day to sit in chair: 3 - Therapies Weight Bearing: Weight bearing as tolerated Physical Therapy: Eval and Treat Occupational Therapy: Eval and Treat - Allergies/Procedures Done in Hospital Allergies/Adverse Reactions: Allergies povidone-iodine [From Betadine] Allergy (Verified 01/19/18 13:50) Hives Hooufju-Rvz-Ldr Reductase Inhibitor Adverse Reaction (Verified 01/19/18 13:50) MESSED MY LIVER UP adhesive tape Allergy (Uncoded 01/19/18 13:50) Itching/rash - Type of Care/Length of Stay Estimated LOS: Convalescent Care Less Than 30 days Type of Care Needed: Skilled Rehab Potential: Fair Prognosis: Fair - Additional Orders/Day of Discharge Additional Orders: Follow-up with his surgeon at [facility] for stitch removal from the right groin. Follow-up with his infectious disease doctor regarding the right pelvic region osteomyelitis and IV vancomycin. H&P will serve as current which was dated: 03/19/18 Day of Discharge: 03/23/18 - Dietary and Speech Recommendations Dietitian Recommendations/Changes: Consider parenteral nutrition support if PO remains contraindicated in next 24-48 hours to prevent further kcal depletion. Advance diet as tolerated if safe for PO nutrition to clear liquids & then to transitional/no gastric stimulant as genesis. Suggest Chuy 1 packet BID when PO diet advanced. - Follow Up Care Primary Care Physician: Winnie Gonzales MD [Primary Care Provider] - Please follow up with your Primary Care Physician in: 1 Week.
--- NOTE | 2018-03-23 13:46 | CASEMGMT ---
Social Work SW call [employer] and they state they have received preauth from insurance and pt can be d/c today. Physician notified and pt is ready for d/c today. Orders faxed to [facility] [employer] [facility]. SW met with pt in room and informed of d/c today. Pt is agreeable to d/c and states his mother cannot transport him and is agreeable to [employer] van with no preference of company used. Transportation arranged with [facility] for 2:30 strip picker. Nurse, pt, [employer] and pt mother notified. ANGEL Diaz
[2018-03-23 14:20] VITALS: BP 171/77; PULSE 73; RESP 16; TEMP 37.1; O2SAT 97
--- NOTE | 2018-03-23 14:49 | PCM.DC.SUM ---
Discharge Date and Diagnosis Date of Admission: 03/19/18 Date of Discharge: 03/23/18 - Primary Discharge Diagnosis #1 small bowel obstruction versus small bowel ileus. #2 ESBL/Klebsiella pneumonia bilateral lower lobe healthcare associated pneumonia. 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 The distal NG tube lies within the stomach. 2. Bowel distention within the upper abdomen which correlates with the clinical history of small bowel obstruction. at 0141 Reported and signed by: Jamie Sy MD Electronically Signed: Jamie Sy, at 1:40 EST Tel , Service support , Acute Abdomen Series 03/20/18 05:55 IMPRESSION: Bibasilar atelectasis and/or infiltrates worse on the left side. The gas pattern is improved. Fecal material is seen throughout the colon. Electronically Signed: Aayush Ibarra MD at 12:49 EST Tel [phone], Service support , Chest X-Ray 03/20/18 09:28 IMPRESSION: Mild degree of increased markings at the lung bases suggesting bibasilar atelectasis and/or early infiltrate. Electronically Signed: Aayush Ibarra MD at 15:29 EST Tel [phone], Service support , Abdomen CT 03/21/18 06:31 IMPRESSION: Distention of the urinary bladder. Sludge or small gallstones in the gallbladder lumen. Large soft tissue defect along the posterior medial aspect of the right gluteal region with the findings suggestive of acute and/or chronic osteomyelitis involving the right inferior pubic ramus. Bibasilar infiltrates. Electronically Signed: Aayush Ibarra MD at 9:56 EST Tel [phone], Service support , Abdomen X-Ray 03/22/18 05:00 IMPRESSION: Oral contrast is seen within the colon. There is no evidence of bowel obstruction. The nasogastric tube has been removed. Electronically Signed: Aayush Ibarra MD at 8:27 EST Tel [phone], Service support , Consultations 03/20/18 09:23 Consult: Onc/Wound/college scouting coordinator Routine Comment: Reason for Consult:: right ischial wound Dr. De La Rosa, general surgery. Dr. Escamilla, infectious disease. Operations: None, - Procedures: None Summary of Care Provided: Patient seen and examined on the day of discharge and appeared to be stable to be discharged to [facility] facility. He has been tolerating regular diet, no more abdominal pain, passing flatus. Cough is getting better. Vital signs are stable. 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 #1 ileus versus small bowel obstruction: Treated conservatively with IV fluids, kept on n.p.o. for 3 days, IV pain medications and IV antiemetics. General surgery consulted and repeated CT scan abdomen with oral contrast that revealed normal small and large bowel without evidence of bowel obstruction. Patient was started on clear liquids, tolerated and was advanced to a regular diet and he did very well. #2 ESBL/Klebsiella pneumoniae bilateral lower lobe healthcare associated pneumonia: Treated with IV Zosyn and vancomycin and later, he was started on IV meropenem for ESBL in the sputum. He remained afebrile throughout admission and he had no leukocytosis. Blood culture showed no growth in 48 hours. Infectious disease consulted and recommended to discharge patient on ertapenem IV for 5 days more of treatment. 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 Status post surgical debridement of the right pelvic region that was done at [facility]. Patient continued on IV vancomycin upon discharge, recommended to follow-up with his surgeon as well as ID at [facility]. #4 hypertension: Blood pressure has been stable throughout admission, continued on metoprolol upon discharge. Stable, resume oral metoprolol, DC IV metoprolol. Patient discharged back to the shelter in a stable medical condition, discharged on vancomycin as prescribed by his ID doctor at [facility] With stop date of March 30, 2018, discharged on IV ertapenem daily with stop date of March 27, 2018, continued on his other chronic home medications without any changes, plan to follow-up with [facility] ID and general surgery as mentioned above, recommended follow-up with PCP in 1 week. This note was generated with [employer] dictation software. It may contain incorrect words, spelling, and punctuation that were not noted in checking the note before signing. - Physical Exam General: Alert, Oriented x3, Cooperative, No apparent distress HEENT: Atraumatic, PERRLA, EOMI, Normocephalic Oral: Moist Mucosa, No Gingival or Mucosal Lesions/ Ulcerations Neck: Supple, No JVD, Negative Carotid Bruits, Trachea Midline, Thyroid Normal Size and Texture Lungs: Clear to auscultation, No rhonchi, No wheeze, No rales, Diminished Cardiovascular: Regular rate, Regular Rhythm, Normal S1, Normal S2, No murmurs Abdomen: Bowel Sounds Present, Soft, Non Tender, Non-Distended, No Hepato-splenomegaly Extremities: No clubbing, No cyanosis, No edema Skin: No rashes, No breakdown Lymphatic: No Cervical, Supraclavicular, or Inguinal Adenopathy Neurological: Cranial nerves II-XII grossly intact, Neuro grossly intact Psych/Mental Status: Normal Affect, Appropriate, Alert and oriented to time, place, person, mood and affect Vital Signs Temp Pulse Resp BP Pulse Ox 98.9 F 68 16 167/88 H 94 03/23/18 08:15 03/23/18 08:17 03/23/18 08:15 03/23/18 08:15 03/23/18 08:28 Oxygen Flow Rate (L/min) 2 Oxygen Delivery Method Room Air Weight: 160 lb 7.944 oz Body Mass Index (BMI) 25.1 Intake and Output for Last 24 Hours 03/21/18 03/22/18 03/23/18 23:59 23:59 23:59 Intake Total 2414 / 2414 4302 / 4302 845 / 845 Output Total 3575 / 3575 2475 / 2475 Balance -1161 / -1161 1827 / 1827 845 / 845 Microbiology Past 72 Hours 03/20/18 16:35 Gram Stain - Final Sputum, Expectorated/Coughed Respiratory Culture - Final Escherichia coli Klebsiella pneumoniae sp pneum 03/20/18 00:33 Blood Culture - Preliminary Blood Culture (Wb) - Right Hand No growth in 48 hours. 03/20/18 00:33 Blood Culture - Preliminary Blood Culture (Wb) - Right Hand No growth in 48 hours. Laboratory Tests Past 24 Hrs 03/23/18 05:29 Vancomycin Trough 16.4 H Home Medications: Medications to take at Discharge Aspirin [Aspirin, Baby] 81 mg PO DAILY@0800 03/22/16 Escitalopram Oxalate [Lexapro] 10 mg PO DAILY 03/22/16 Ezetimibe [Zetia] 10 mg PO DAILY 03/22/16 Fluticasone 0.05% [Flonase Nasal [place]] 2 spray NASAL DAILY 03/22/16 Multivitamin [Multiple Vitamins] 1 each PO DAILY 03/22/16 buPROPion XL [Wellbutrin Xl] 300 mg PO DAILY 03/22/16 busPIRone [Buspar] 5 mg PO TID 03/22/16 Tiotropium [place] [Spiriva Respimat] 2 puff INHALATION DAILY 10/20/16 Cholecalciferol (Vitamin D3) [Vitamin D3] 1,000 unit PO DAILY 12/09/16 Tizanidine HCl [Zanaflex] 4 mg PO Q8H PRN PRN 12/27/16 Gabapentin [Neurontin] 600 mg PO TID 01/19/18 Metoprolol Tartrate [Lopressor (beta curt)] 50 mg PO BID 01/19/18 Acetaminophen [Tylenol] 650 mg PO Q4H PRN PRN 03/19/18 Albuterol Aerosols [Ventolin Aerosols] 2.5 mg INHALATION Q4H PRN PRN 03/19/18 Benzocaine/Menthol [Cepacol Sore Throat Lozenge] 1 lozenge PO Q2H PRN PRN 03/19/18 Benzonatate [Tessalon Perle] 100 mg PO TID 03/19/18 Calcium Polycarbophil [Fibercon] 1 tab PO TID 03/19/18 Diphenoxylate HCl/Atropine [Lomotil 2.5-0.025 mg Tablet] 2 cap PO Q6H PRN PRN 03/19/18 Guaifenesin Dm [Robitussin Dm] 5 ml PO Q4H PRN PRN 03/19/18 Ibuprofen [Ibu] 800 mg PO Q8H PRN PRN 03/19/18 Oxycodone HCl/Acetaminophen [Percocet 10-325 mg Tablet] 2 tablet PO Q6H PRN PRN 03/19/18 Oxycodone [Oxyir] 5 mg PO Q6H PRN PRN 03/19/18 Pantoprazole Sodium [Protonix] 40 mg PO DAILY 03/19/18 Testosterone [Androderm 2mg/24 hr] 1 each TD DAILY 03/19/18 Vancomycin/0.9 % Sod Chloride [Vanco 1 Gram/150 ml-0.9% NaCl] 1 gm IV TID 03/19/18 Ertapenem Sodium [Ertapenem] 1 gm IJ DAILY #4 vial 03/23/18 Following Prescrptions Were Given to Patient: Ertapenem Sodium [Ertapenem] 1 gm IJ DAILY #4 vial Primary Care Physician: Winnie Gonzales MD [Primary Care Provider] - Please follow up with your Primary Care Physician in: 1 Week. Disposition: Long Term facility Minutes spent on discharge:: 34 Patient Condition:: Stable Medical Necessity - Tobacco Use Smoking Status: Former smoker Meaningful Use Info Meaningful Use Diagnoses (Choose all that apply): None applicable Code Visit Inpatient E&M: 79330 Disch Hosp
--- NOTE | 2018-03-23 14:56 | DS.PCM_ITS ---
Discharge Date and Diagnosis Date of Admission: 03/19/18 Date of Discharge: 03/23/18 - Primary Discharge Diagnosis #1 small bowel obstruction versus small bowel ileus. #2 ESBL/Klebsiella pneumonia bilateral lower lobe healthcare associated pneumonia. 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 The distal NG tube lies within the stomach. 2. Bowel distention within the upper abdomen which correlates with the clinical history of small bowel obstruction. at 0141 Reported and signed by: Jamie Sy MD Electronically Signed: Jamie Sy, at 1:40 EST Tel , Service support , Acute Abdomen Series 03/20/18 05:55 IMPRESSION: Bibasilar atelectasis and/or infiltrates worse on the left side. The gas pattern is improved. Fecal material is seen throughout the colon. Electronically Signed: Aayush Ibarra MD at 12:49 EST Tel [phone], Service support , Chest X-Ray 03/20/18 09:28 IMPRESSION: Mild degree of increased markings at the lung bases suggesting bibasilar atelectasis and/or early infiltrate. Electronically Signed: Aayush Ibarra MD at 15:29 EST Tel [phone], Service support , Abdomen CT 03/21/18 06:31 IMPRESSION: Distention of the urinary bladder. Sludge or small gallstones in the gallbladder lumen. Large soft tissue defect along the posterior medial aspect of the right gluteal region with the findings suggestive of acute and/or chronic osteomyelitis involving the right inferior pubic ramus. Bibasilar infiltrates. Electronically Signed: Aayush Ibarra MD at 9:56 EST Tel [phone], Service support , Abdomen X-Ray 03/22/18 05:00 IMPRESSION: Oral contrast is seen within the colon. There is no evidence of bowel obstruction. The nasogastric tube has been removed. Electronically Signed: Aayush Ibarra MD at 8:27 EST Tel [phone], Service support , Consultations 03/20/18 09:23 Consult: Onc/Wound/fish processor Routine Comment: Reason for Consult:: right ischial wound Dr. De La Rosa, general surgery. Dr. Escamilla, infectious disease. Operations: None, - Procedures: None Summary of Care Provided: Patient seen and examined on the day of discharge and appeared to be stable to be discharged to intermediate facility. He has been tolerating regular diet, no more abdominal pain, passing flatus. Cough is getting better. Vital signs are stable. 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 #1 ileus versus small bowel obstruction: Treated conservatively with IV fluids, kept on n.p.o. for 3 days, IV pain medications and IV antiemetics. General surgery consulted and repeated CT scan abdomen with oral contrast that revealed normal small and large bowel without evidence of bowel obstruction. Patient was started on clear liquids, tolerated and was advanced to a regular diet and he did very well. #2 ESBL/Klebsiella pneumoniae bilateral lower lobe healthcare associated pneumonia: Treated with IV Zosyn and vancomycin and later, he was started on IV meropenem for ESBL in the sputum. He remained afebrile throughout admission and he had no leukocytosis. Blood culture showed no growth in 48 hours. Infectious disease consulted and recommended to discharge patient on ertapenem IV for 5 days more of treatment. 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 Status post surgical debridement of the right pelvic region that was done at [facility]. Patient continued on IV vancomycin upon discharge, recommended to follow-up with his surgeon as well as ID at [facility]. #4 hypertension: Blood pressure has been stable throughout admission, continued on metoprolol upon discharge. Stable, resume oral metoprolol, DC IV metoprolol. Patient discharged back to the shelter in a stable medical condition, discharged on vancomycin as prescribed by his ID doctor at [facility] With stop date of March 30, 2018, discharged on IV ertapenem daily with stop date of March 27, 2018, continued on his other chronic home medications without any changes, plan to follow-up with [facility] ID and general surgery as mentioned above, recommended follow-up with PCP in 1 week. This note was generated with [employer] dictation software. It may contain incorrect words, spelling, and punctuation that were not noted in checking the note before signing. - Physical Exam General: Alert, Oriented x3, Cooperative, No apparent distress HEENT: Atraumatic, PERRLA, EOMI, Normocephalic Oral: Moist Mucosa, No Gingival or Mucosal Lesions/ Ulcerations Neck: Supple, No JVD, Negative Carotid Bruits, Trachea Midline, Thyroid Normal Size and Texture Lungs: Clear to auscultation, No rhonchi, No wheeze, No rales, Diminished Cardiovascular: Regular rate, Regular Rhythm, Normal S1, Normal S2, No murmurs Abdomen: Bowel Sounds Present, Soft, Non Tender, Non-Distended, No Hepato- splenomegaly Extremities: No clubbing, No cyanosis, No edema Skin: No rashes, No breakdown Lymphatic: No Cervical, Supraclavicular, or Inguinal Adenopathy Neurological: Cranial nerves II-XII grossly intact, Neuro grossly intact Psych/Mental Status: Normal Affect, Appropriate, Alert and oriented to time, place, person, mood and affect Vital Signs Temp Pulse Resp BP Pulse Ox 98.9 F 68 16 167/88 H 94 03/23/18 08:15 03/23/18 08:17 03/23/18 08:15 03/23/18 08:15 03/23/18 08:28 Oxygen Flow Rate (L/min) 2 Oxygen Delivery Method Room Air Weight: 160 lb 7.944 oz Body Mass Index (BMI) 25.1 Intake and Output for Last 24 Hours 03/21/18 03/22/18 03/23/18 23:59 23:59 23:59 Intake Total 2414 / 2414 4302 / 4302 845 / 845 Output Total 3575 / 3575 2475 / 2475 Balance -1161 / -1161 1827 / 1827 845 / 845 Microbiology Past 72 Hours 03/20/18 16:35 Gram Stain - Final Sputum, Expectorated/Coughed Respiratory Culture - Final Escherichia coli Klebsiella pneumoniae sp pneum 03/20/18 00:33 Blood Culture - Preliminary Blood Culture (Wb) - Right Hand No growth in 48 hours. 03/20/18 00:33 Blood Culture - Preliminary Blood Culture (Wb) - Right Hand No growth in 48 hours. Laboratory Tests Past 24 Hrs 03/23/18 05:29 Vancomycin Trough 16.4 H Home Medications: Medications to take at Discharge Aspirin [Aspirin, Baby] 81 mg PO DAILY@0800 03/22/16 Escitalopram Oxalate [Lexapro] 10 mg PO DAILY 03/22/16 Ezetimibe [Zetia] 10 mg PO DAILY 03/22/16 Fluticasone 0.05% [Flonase Nasal [place]] 2 spray NASAL DAILY 03/22/16 Multivitamin [Multiple Vitamins] 1 each PO DAILY 03/22/16 buPROPion XL [Wellbutrin Xl] 300 mg PO DAILY 03/22/16 busPIRone [Buspar] 5 mg PO TID 03/22/16 Tiotropium [place] [Spiriva Respimat] 2 puff INHALATION DAILY 10/20/16 Cholecalciferol (Vitamin D3) [Vitamin D3] 1,000 unit PO DAILY 12/09/16 Tizanidine HCl [Zanaflex] 4 mg PO Q8H PRN PRN 12/27/16 Gabapentin [Neurontin] 600 mg PO TID 01/19/18 Metoprolol Tartrate [Lopressor (beta curt)] 50 mg PO BID 01/19/18 Acetaminophen [Tylenol] 650 mg PO Q4H PRN PRN 03/19/18 Albuterol Aerosols [Ventolin Aerosols] 2.5 mg INHALATION Q4H PRN PRN 03/19/18 Benzocaine/Menthol [Cepacol Sore Throat Lozenge] 1 lozenge PO Q2H PRN PRN 03/19/18 Benzonatate [Tessalon Perle] 100 mg PO TID 03/19/18 Calcium Polycarbophil [Fibercon] 1 tab PO TID 03/19/18 Diphenoxylate HCl/Atropine [Lomotil 2.5-0.025 mg Tablet] 2 cap PO Q6H PRN PRN 03/19/18 Guaifenesin Dm [Robitussin Dm] 5 ml PO Q4H PRN PRN 03/19/18 Ibuprofen [Ibu] 800 mg PO Q8H PRN PRN 03/19/18 Oxycodone HCl/Acetaminophen [Percocet 10-325 mg Tablet] 2 tablet PO Q6H PRN PRN 03/19/18 Oxycodone [Oxyir] 5 mg PO Q6H PRN PRN 03/19/18 Pantoprazole Sodium [Protonix] 40 mg PO DAILY 03/19/18 Testosterone [Androderm 2mg/24 hr] 1 each TD DAILY 03/19/18 Vancomycin/0.9 % Sod Chloride [Vanco 1 Gram/150 ml-0.9% NaCl] 1 gm IV TID 03/19/18 Ertapenem Sodium [Ertapenem] 1 gm IJ DAILY #4 vial 03/23/18 Following Prescrptions Were Given to Patient: Ertapenem Sodium [Ertapenem] 1 gm IJ DAILY #4 vial Primary Care Physician: Winnie Gonzales MD [Primary Care Provider] - Please follow up with your Primary Care Physician in: 1 Week. Disposition: [facility] facility Minutes spent on discharge:: 34 Patient Condition:: Stable Medical Necessity - Tobacco Use Smoking Status: Former smoker Meaningful Use Info Meaningful Use Diagnoses (Choose all that apply): None applicable Code Visit Inpatient E&M: 92165 Disch Hosp
--- NOTE | 2018-03-23 15:03 | NURSING ---
Addendum entered by Ginger Mccracken 03/23/18 15:23: Stefany from [facility] returned phone call and report was provided regarding patient Original Note: attempted to call report to [facility]. was informed the receiving RN is at lunch. left name and phone number for return phone call.
== END 2018-03-23 14:40 | disposition skilled nursing facility (03) | DRG 247 ==
PROVIDERS: Admitting Provider Family Medicine; Family Provider Internal Medicine; PCP Internal Medicine; Visit Provider Hospitalist
DX: K56.609 Unspecified intestinal obstruction, unspecified as to partial versus complete obstruction (principal); K56.7 Ileus, unspecified; J15.5 Pneumonia due to Escherichia coli; J15.0 Pneumonia due to Klebsiella pneumoniae; L89.314 Pressure ulcer of right buttock, stage 4; M86.8X8 Other osteomyelitis, other site; E78.5 Hyperlipidemia, unspecified; D64.9 Anemia, unspecified; J44.9 Chronic obstructive pulmonary disease, unspecified; I10 Essential (primary) hypertension; Y95 Nosocomial condition; Z16.12 Extended spectrum beta lactamase (ESBL) resistance; B95.62 Methicillin resistant Staphylococcus aureus infection as the cause of diseases classified elsewhere; R53.81 Other malaise; Z85.048 Personal history of other malignant neoplasm of rectum, rectosigmoid junction, and anus; Z87.891 Personal history of nicotine dependence
CPT/HCPCS: 36415; 71045; 74018; 74019; 74022; 74176; 80048; 80053; 80202; 82728; 83540; 83550; 83735; 84132; 84466; 85014; 85018; 85025; 87040; 87070; 87077; 87186; 87205; 94667; 94668; 97110; 97116; 97162; 97165; 97530; 97535; 97802; J1756; J2185; J7030; J7040; A4216

== ENCOUNTER 2018-04-19 21:41 | Emergency (ER) | payer MEDICAID, SELFPAY ==
[2018-03-19 21:58] VITALS: BMI 25.1
[2018-04-19 21:41] VITALS: BP 153/83; PULSE 89; RESP 19; TEMP 36.9; O2SAT 95; BMI 27.8
--- NOTE | 2018-04-19 22:10 | RAD_ITS ---
HISTORY: FALL, DEFORMITY EXAM/TECHNIQUE: XR Femur Min 2 Views: Left. COMPARISON: 05/02/17 radiographs. FINDINGS: # of images incl. paperwork: 4 Acute comminuted displaced fracture of the distal femoral diaphysis, located just superior to the femoral component of the knee arthroplasty. The distal fracture fragments are displaced medially 1 shaft width, proximally about 5 cm, angulated medially, and rotated such that the knee and tib-fib are rotated medially in relation of the more proximal shaft. The more proximal left femur is intact. Left total hip arthroplasty again demonstrated with lucency surrounding the acetabular cup and thinning of the acetabulum. The femoral stem is unremarkable. Dense calcific atherosclerosis again demonstrated. Soft tissue swelling adjacent to the fracture. RAD/Femur Min 2 Views IMPRESSION: Acute comminuted displaced periprosthetic distal femoral shaft fracture. Left total hip arthroplasty with chronic lucency surrounding the acetabular cup and thinning of the adjacent suggestive of particle disease. at 2324 Reported and signed by: Anmol Avila MD Electronically Signed: Anmol Avila, at 23:23 EST Tel , Service support ,
--- NOTE | 2018-04-19 22:10 | RAD_ITS ---
HISTORY: FALL, DEFORMITY EXAM/TECHNIQUE: XR Tibia/Fibula 2 Views: Left. COMPARISON: None. FINDINGS: # of images incl. paperwork: 4 Distal shaft periprosthetic left femoral fracture partially visible, please see left femoral x-ray report. No apparent fracture of the tib-fib. The tibial component of the knee arthroplasty is intact. Tib-fib alignment is anatomic. RAD/Tibia & Fibula 2 Views IMPRESSION: No apparent fracture of the tib-fib. at [id number] Reported and signed by: Anmol Avila MD Electronically Signed: Anmol Avila, at 23:24 EST Tel , Service support ,
--- NOTE | 2018-04-19 22:12 | ED.VISSUMM ---
- ER Visit Summary Date of Service: 04/19/18 Chief Complaint: Left lower leg injury History of Present Illness: The patient is a 63 M mechanical fall while getting out of the couch after awakening prior to arrival. States he did bump his head, however denies headache neck pain nausea or vomiting. He takes baby aspirin. Reported deformity of the left lower extremity by EMS, brought in with a splint. Reports left total knee arthroplasty by Dr. Mccloud in [place] 5-7 years ago. History of neuropathy. No diabetes history. No medications given prior to arrival. Physical Examination: General: Alert and oriented ?3, moderate distress HEENT: Normocephalic, atraumatic. Moist mucosa membranes Neck: supple, nontender. Cardiovascular: Regular rate and rhythm, no murmurs Respiratory: Normal breath sounds, symmetric, no distress Abdomen: Soft, nontender, nondistended Extremities: Left lower extremity: Patient was in a air splint femur down lower leg. Negative logroll. There is tenderness at the distal femur proximal tibia. Leg was internally rotated at the mid thigh in. Skin intact. Pulses intact distally. Neuro: no focal neurological deficits. Test Results: Left tib-fib negative. Left femur comminuted distal femur fracture above prosthesis. Chest x-ray negative. Hemoglobin 10.6. Creatinine 0.9. INR 1.0 PTT 20.5. Emergency Department Course and Treatment: Patient obvious deformity with internal rotation distal thigh. He is left in the vacuum splint for comfort pulses intact. Treated for pain multiple doses. X-rays confirmed comminuted distal jessi-prosthetic fracture of the femur. As discussed with orthopedic Dr. Frank here who recommended transfer. Patient wanted [facility]. Additional attempted [facility], however they felt he needs a bigger center. Discussed with [facility] ED physician Dr. Helms will transfer the ED for management. Patient did develop more swelling of the distal thigh he does have pulses distally, is concerned that he can possibly develop compartment syndrome of the thigh. Do feel he is better off served at a tertiary center [facility]. He will be transferred to the ED there. He will be kept in the vacuum splint for stabilization. Treatment Plan: [] Disposition: Transferred to [facility] Impression: 1. Complex closed distal femur fracture left This note was generated with [employer] software. It may contain incorrect words, spelling, and punctuation that were not noted in review of the chart prior to signing ED Disposition - Plan for ED Patient: Disposition: [facility] Diagnosis: Complex distal left femur fracture Referrals: Winnie Gonzales MD [Primary Care Provider] -
[2018-04-19 22:24] LABS: Absolute Lymphocyte Count 2.12 X10^3/ul (0.83-4.51); Absolute Neutrophil Count 5.2 X10^3/uL (2.0-7.7); Basophil# 0.03 X10^3/uL; Basophil% 0.4 % (0-1); Eosinophil# 0.39 X10^3/uL; Eosinophils% 4.6 % (0-5); Hematocrit 34.8 % (40-54); Hemoglobin 10.6 g/dl (13.0-16.5); Lymphocyte # 2.12 X10^3/ul (4.0); Lymphocyte % 25.1 % (19-41); Mean Corp Hgb Conc 30.5 g/gl (32-36); Mean Corpuscular Volume 82.1 fL (80-94); Mean Platelet Vol. 8.1 fl (6.2-12.0); Monocyte% 8.3 % (0-10); Neutrophil # 5.18 X10^3/uL (2.7-7.7); Neutrophil % 61.1 % (47-70); Platelet Count 352 K/mm3 (150-450); RBC Distribution Width CV 18.3 % (11.6-14.6); RBC Distribution Width SD 54.5 fl (35.1-43.9); Red Blood Count 4.24 M/mm3 (4.6-6.2); White Blood Count 8.5 K/mm3 (4.4-11.0)
[2018-04-19 22:25] LABS: POSITIVE COUNT NO; POSITIVE DIFFERENTIAL NO; POSITIVE MORPHOLOGY NO
[2018-04-19] MEDS: 0.9% Normal Saline 1,000 ML 150 ML IV (22:33)
[2018-04-19] MEDS: fentaNYL 100 MCG/2 ML Ampul 50 MCG IV ×2 (22:33→23:04)
[2018-04-19 22:34] VITALS: BP 125/78; PULSE 84; RESP 19; O2SAT 96
[2018-04-19 22:34] LABS: Partial Thromboplast Time 28.5 Seconds (24.1-36.2); Prothrombin Time (Protime)PT. 12.9 SECONDS (11.7-14.9)
[2018-04-19 22:48] LABS: Anion Gap 8 (5-15); BUN 31 mg/dL (7-18); BUN/Creat Ratio 34.9 RATIO (10-20); Calcium,Total 8.7 mg/dL (8.5-10.1); Chloride 103 mmol/L (98-107); Creatinine, Serum 0.89 mg/dL (0.70-1.30); EST Glomerular Filtration Rate 92 mL/min (>60); Est Glom Filt Rate - Afr Amer 111 mL/min (>60); Glucose 163 mg/dL (74-106); Potassium 4.2 mmol/L (3.5-5.1); Sodium Level 137 mmol/L (136-145)
--- NOTE | 2018-04-19 22:56 | RAD_ITS ---
HISTORY: PRE OP EXAM: XR Chest 1 View: COMPARISON: 03/20/18 CXR FINDINGS: # of images incl. paperwork: 2 LINES/DEVICES: None. LUNGS: Radiographically clear. No consolidation, edema or effusion. No pneumothorax. MEDIASTINUM AND CARDIOVASCULAR STRUCTURES: Cardiac silhouette not enlarged. Central airways and mediastinal contour are unremarkable. BONES AND SOFT TISSUES: Unremarkable. RAD/Chest 1 View IMPRESSION: No radiographic evidence of acute cardiopulmonary disease. at 2319 Reported and signed by: Anmol Avila MD Electronically Signed: Anmol Avila, at 23:18 EST Tel , Service support ,
[2018-04-19 23:00] VITALS: BP 196/88; PULSE 87; RESP 15; O2SAT 96
[2018-04-19] MEDS: HYDROmorphone 1 MG/ML Syringe IV ×2 (23:25→23:56)
[2018-04-19 23:57] VITALS: BP 149/70; PULSE 90; RESP 12; O2SAT 94
[2018-04-20 00:13] VITALS: BP 151/79; PULSE 87; RESP 19
[2018-04-20 00:37] VITALS: BP 134/79; PULSE 81; RESP 18; O2SAT 97
[2018-04-20] MEDS: HYDROmorphone 1 MG/ML Syringe IV (00:38)
== END 2018-04-20 00:40 | disposition short-term general hospital (02) ==
PROVIDERS: Emergency Provider Emergency Medicine; Family Provider Internal Medicine; PCP Internal Medicine
DX: S72.352A Displaced comminuted fracture of shaft of left femur, initial encounter for closed fracture (principal); M97.12XA Periprosthetic fracture around internal prosthetic left knee joint, initial encounter; W19.XXXA Unspecified fall, initial encounter; Y93.9 Activity, unspecified; Y92.9 Unspecified place or not applicable; Y99.9 Unspecified external cause status; I10 Essential (primary) hypertension; G62.9 Polyneuropathy, unspecified; G89.29 Other chronic pain; K21.9 Gastro-esophageal reflux disease without esophagitis; Z79.82 Long term (current) use of aspirin; Z79.891 Long term (current) use of opiate analgesic; Z79.899 Other long term (current) drug therapy; Z85.038 Personal history of other malignant neoplasm of large intestine
CPT/HCPCS: 71045; 73552; 73590; 80048; 85025; 85610; 85730; 96361; 96374; 96375; 96376; 99285; J7030; A4216

== ENCOUNTER 2018-05-10 11:00 | Outpatient (RCR) | payer MEDICAID, SELFPAY ==
[2018-05-03 11:11] VITALS: BP 135/64; PULSE 65; RESP 18; TEMP 36; BMI 27.8
--- NOTE | 2018-05-03 19:18 | PCM.WC.HP ---
(1) Acute osteomyelitis of right pelvic region Status: Chronic Current Visit: Yes Code(s): M86.151 - Other acute osteomyelitis, right femur (2) Right ischial pressure sore, stage 4 Status: Chronic Current Visit: Yes Code(s): L89.314 - Pressure ulcer of right buttock, stage 4 (3) Soft tissue radionecrosis Status: Chronic Current Visit: Yes Code(s): L59.8 - Other specified disorders of the skin and subcutaneous tissue related to radiation; Y84.2 - Radiological procedure and radiotherapy as the cause of abnormal reaction of the patient, or of later complication, without mention of misadventure at the time of the procedure History of Present Illness Chief Complaint: Nonhealing radiation pressure ulcer. History of Wound: Mr Rincon is a 63 yo very well known to the wound center and up to a couple of weeks ago, was following up with Dr. Mesa for his chronic right buttock stage IV ulcer. He also had sessions of HBO. He however was referred to a tertiary center due to concerns for osteomyelitis. He is status post surgical debridement and chronic antibiotics at the [facility]. He has done well since then. He returns here for continued wound care. He denies any concerns at this time. It appears he has been having a wet-to-dry dressing at his nursing facility. He denies any significant discharge from the wound. His VAC was discontinued. He denies chills, fever or feeling of unwell. Plan per patient is for a possible flap closure. 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) Anal cancer (Chronic) Hepatitis C carrier (Chronic) COPD (chronic obstructive pulmonary disease) (Chronic) Anxiety and depression (Chronic) HTN (hypertension) (Chronic) HLD (hyperlipidemia) (Chronic) GERD (gastroesophageal reflux disease) (Chronic) PAD (peripheral artery disease) (Chronic) Hyponatremia (Chronic) suspected to be from water drinking Surgical History: total hip arthroplasty - left, total knee arthroplasty, - - 12/30/16 Surgical preparation right gluteal/ischial area with excision radiation pressure sore abscess wound and partial ostectomy for osteomyelitis (52.5 cm2), 06/08/17 Excision radiation pressure sore abscess ulcer right ischial area, Stage IV, with partial ostectomy for osteomyelitis, 10/17/17 Excision radiation pressure sore abscess ulcer right ischial area, Stage IV, with partial ostectomy for osteomyelitis. Allergies/Adverse Reactions: Allergies chlorthalidone Allergy (Verified 04/19/18 21:45) Other povidone-iodine [From Betadine] Allergy (Verified 01/19/18 13:50) Hives soap Adverse Reaction (Verified 04/19/18 21:45) Hives Wlqxaol-Loc-Xok Reductase Inhibitor Adverse Reaction (Verified 01/19/18 13:50) MESSED MY LIVER UP adhesive tape Allergy (Uncoded 01/19/18 13:50) Itching/rash Home Medications: Ambulatory Orders Medication Instructions Recorded RX: Aspirin [Aspirin, Baby] 81 mg PO DAILY@0800 03/22/16 RX: Escitalopram Oxalate [Lexapro] 10 mg PO DAILY 03/22/16 RX: Ezetimibe [Zetia] 10 mg PO DAILY 03/22/16 RX: Fluticasone 0.05% [Flonase 2 spray NASAL DAILY 03/22/16 Nasal [place]] RX: Multivitamin [Multiple 1 each PO DAILY 03/22/16 Vitamins] RX: buPROPion XL [Wellbutrin Xl] 300 mg PO DAILY 03/22/16 RX: busPIRone [Buspar] 5 mg PO TID 03/22/16 RX: Tiotropium [place] [Spiriva 2 puff INHALATION DAILY 10/20/16 Respimat] RX: Cholecalciferol (Vitamin D3) 1,000 unit PO DAILY 12/09/16 [Vitamin D3] RX: Tizanidine HCl [Zanaflex] 4 mg PO Q8H PRN PRN 12/27/16 RX: Gabapentin [Neurontin] 600 mg PO TID 01/19/18 RX: Metoprolol Tartrate [Lopressor 50 mg PO BID 01/19/18 (beta curt)] RX: Benzocaine/Menthol [Cepacol 1 lozenge PO Q2H PRN PRN 03/19/18 Sore Throat Lozenge] RX: Benzonatate [Tessalon Perle] 100 mg PO TID PRN PRN 03/19/18 RX: Guaifenesin Dm [Robitussin Dm] 5 ml PO Q4H PRN PRN 03/19/18 RX: Ibuprofen [Ibu] 800 mg PO Q8H PRN PRN 03/19/18 RX: Oxycodone HCl/Acetaminophen 2 tablet PO Q6H PRN PRN 03/19/18 [Percocet 10-325 mg Tablet] RX: Pantoprazole Sodium [Protonix] 40 mg PO DAILY 03/19/18 RX: Testosterone [Androderm 2mg/24 1 each TD DAILY 03/19/18 hr] Lactobacillus Acidophilus 2 each PO TID 04/19/18 [Acidophilus] Psyllium Husk [Fiber Laxative] 0.52 gm PO TIDCM 04/19/18 RX: Clindamycin HCl 300 mg PO TID 04/19/18 Sodium Hypochlorite [Dakins 50 ml TOPICAL DAILY 04/19/18 Solution 0.25% (1/2 Strength)] Diphenoxylate HCl/Atropine 1 each PO BID PRN PRN 05/03/18 [Lomotil 2.5-0.025 mg Tablet] - Family History Maternal - - Denies any marked maternal or paternal family history including DM, HTN, HD. Paternal - - Denies any marked maternal or paternal family history including DM, HTN, HD. Smoking Status: Never smoker - Physical Exam Vital Signs Temp Pulse Resp BP 96.8 F L 65 18 135/64 H 05/03/18 11:11 05/03/18 11:11 05/03/18 11:11 05/03/18 11:11 Wound Measurements and Assessment WC - Nurse 1 - General Ulcer Measurement Start: 05/03/18 10:51 Freq: Status: Active Protocol: Activity Type Activity Date Activity User E-Sign Co-Sign Detail Recorded Client Recorded Date Recorded By Document 05/03/18 11:11 RB [id number] 05/03/18 11:21 RB 05/03/18 11:11 Wound Center Nurse 1 [Ulcer Assessment] 2. R Ischial -Combined with other wound No -Current Size (cm) - Length 5.7 -Current Size (cm) - Width 3.3 -Current Size (cm) - Depth 1 -Total Square Cm 18.81 -Photo Taken Yes -Tunneling No -Undermining/Tunneling No -Circular Undermining No -Exudate Amt Small -Exudate Type Serosanguineous -Wound Margin Thickened & Rolled Under -Granulation Amt Medium (34-66%) -Granulation Quality [place] -Slough/Fibrin Yes -Necrosis Amt Medium (34-66%) -Necrotic Tissue Type Adherent Slough -Structure Exposed N/A -Texture (Nathalie-wound Skin Appearance) Assessed -Moisture (Nathalie-wound Skin Appearance Assessed ) Maceration -Color (Nathalie-wound Skin Appearance) Assessed -Temperature (Nathalie-wound Skin No Abnormality Appearance) (Pt Warm) -Tenderness on Palpation (Nathalie-wound No Skin Appearance) -Ulcer Cleansing Wound Cleanser -Foul Odor after Cleansing No -Anesthetic Used 4% Lidocaine Solution [Edema Assessment] -Lower Limb Edema Present NA - Nurse 2 - General Ulcer CM Notes Start: 05/03/18 10:51 Freq: Status: Active Protocol: Activity Type Activity Date Activity User E-Sign Co-Sign Detail Recorded Client Recorded Date Recorded By Document 05/03/18 11:44 AN [id number] 05/03/18 11:53 AN 05/03/18 11:44 Wound Center Nurse 2 [Procedure/Treatment] 2. R Ischial -Time 11:46 -Correct Patient Yes -Correct Side, Site, Position Yes -Correct Procedure Yes -Procedure Performed Yes -Type of Procedure Debridement -Clinical Debridement Subcutaneous -Post Debridement Size (cm) - Length 5.5 -Post Debridement Size (cm) - Width 3.5 -Post Debridement Size (cm) - Depth 1.2 -Total Square Cm 19.25 -Wound/Ulcer Outcome Not Healed -Ulcer Cleansing Rinsed/ Irrigated with Saline -Foul Odor after Cleansing No -Bioengineered Tissue No -Bleeding Controlled with Pressure -Offloading No -Treatment Response Procedure Tolerated Well [See Physician Procedure note for Specifics] Pain Scale: 0-10 Numeric [Pain] -Is Patient Pain Free? Yes Debridement Note Post-Debridement Measurements/Treatment - Nurse 2 - General Ulcer CM Notes Start: 05/03/18 10:51 Freq: Status: Active Protocol: Activity Type Activity Date Activity User E-Sign Co-Sign Detail Recorded Client Recorded Date Recorded By Document 05/03/18 11:44 AN [id number] 05/03/18 11:53 AN 05/03/18 11:44 Wound Center Nurse 2 2. R Ischial -Time 11:46 -Correct Patient Yes -Correct Side, Site, Position Yes -Correct Procedure Yes -Procedure Performed Yes -Type of Procedure Debridement -Clinical Debridement Subcutaneous -Post Debridement Size (cm) - Length 5.5 -Post Debridement Size (cm) - Width 3.5 -Post Debridement Size (cm) - Depth 1.2 -Total Square Cm 19.25 -Wound/Ulcer Outcome Not Healed -Ulcer Cleansing Rinsed/ Irrigated with Saline -Foul Odor after Cleansing No -Bioengineered Tissue No -Bleeding Controlled with Pressure -Offloading No -Treatment Response Procedure Tolerated Well Pain Scale: 0-10 Numeric Is Patient Pain Free? 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 Osteomyelitis right pelvic region status post surgical debridement and chronic antibiotic. Plan: Debridement done as documented above. Procedure was well-tolerated. Aquacel extra with Adaptic over top for now. Will request records from the [facility] and patient is also set to call them to schedule his flap/reconstruction surgery. If this is going to be done soon, will continue Aquacel for now however if there are no immediate plans, will consider more advanced wound therapy/snap Vac therapy to help improve chances of healing. Increased protein intake. Lower loss air mattress, gel cushion for sitting. Reposition often. His questions were answered and he was advised to call with any further questions or concerns. Follow-up in 1 week. This note was generated with [employer] dictation software. It may contain incorrect words, spelling, and punctuation that were not noted in checking the note before signing.
--- NOTE | 2018-05-03 19:23 | HP.PCM_ITS ---
(1) Acute osteomyelitis of right pelvic region Status: Chronic Current Visit: Yes Code(s): M86.151 - Other acute osteomyelitis, right femur (2) Right ischial pressure sore, stage 4 Status: Chronic Current Visit: Yes Code(s): L89.314 - Pressure ulcer of right buttock, stage 4 (3) Soft tissue radionecrosis Status: Chronic Current Visit: Yes Code(s): L59.8 - Other specified disorders of the skin and subcutaneous tissue related to radiation; Y84.2 - Radiological procedure and radiotherapy as the cause of abnormal reaction of the patient, or of later complication, without mention of misadventure at the time of the procedure History of Present Illness Chief Complaint: Nonhealing radiation pressure ulcer. History of Wound: Mr Rincon is a 63 yo very well known to the wound center and up to a couple of weeks ago, was following up with Dr. Mesa for his chronic right buttock stage IV ulcer. He also had sessions of HBO. He however was referred to a tertiary center due to concerns for osteomyelitis. He is status post surgical debridement and chronic antibiotics at the [facility]. He has done well since then. He returns here for continued wound care. He denies any concerns at this time. It appears he has been having a wet-to-dry dressing at his nursing facility. He denies any significant discharge from the wound. His VAC was discontinued. He denies chills, fever or feeling of unwell. Plan per patient is for a possible flap closure. 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) Anal cancer (Chronic) Hepatitis C carrier (Chronic) COPD (chronic obstructive pulmonary disease) (Chronic) Anxiety and depression (Chronic) HTN (hypertension) (Chronic) HLD (hyperlipidemia) (Chronic) GERD (gastroesophageal reflux disease) (Chronic) PAD (peripheral artery disease) (Chronic) Hyponatremia (Chronic) suspected to be from water drinking Surgical History: total hip arthroplasty - left, total knee arthroplasty, - - 12/30/16 Surgical preparation right gluteal/ischial area with excision radiation pressure sore abscess wound and partial ostectomy for osteomyelitis (52.5 cm2), 06/08/17 Excision radiation pressure sore abscess ulcer right ischial area, Stage IV, with partial ostectomy for osteomyelitis, 10/17/17 Excision radiation pressure sore abscess ulcer right ischial area, Stage IV, with partial ostectomy for osteomyelitis. Allergies/Adverse Reactions: Allergies chlorthalidone Allergy (Verified 04/19/18 21:45) Other povidone-iodine [From Betadine] Allergy (Verified 01/19/18 13:50) Hives soap Adverse Reaction (Verified 04/19/18 21:45) Hives Orgjmgf-Wzs-Kve Reductase Inhibitor Adverse Reaction (Verified 01/19/18 13:50) MESSED MY LIVER UP adhesive tape Allergy (Uncoded 01/19/18 13:50) Itching/rash Home Medications: Ambulatory Orders Medication Instructions Recorded RX: Aspirin [Aspirin, Baby] 81 mg PO DAILY@0800 03/22/16 RX: Escitalopram Oxalate [Lexapro] 10 mg PO DAILY 03/22/16 RX: Ezetimibe [Zetia] 10 mg PO DAILY 03/22/16 RX: Fluticasone 0.05% [Flonase 2 spray NASAL DAILY 03/22/16 Nasal [place]] RX: Multivitamin [Multiple 1 each PO DAILY 03/22/16 Vitamins] RX: buPROPion XL [Wellbutrin Xl] 300 mg PO DAILY 03/22/16 RX: busPIRone [Buspar] 5 mg PO TID 03/22/16 RX: Tiotropium [place] [Spiriva 2 puff INHALATION DAILY 10/20/16 Respimat] RX: Cholecalciferol (Vitamin D3) 1,000 unit PO DAILY 12/09/16 [Vitamin D3] RX: Tizanidine HCl [Zanaflex] 4 mg PO Q8H PRN PRN 12/27/16 RX: Gabapentin [Neurontin] 600 mg PO TID 01/19/18 RX: Metoprolol Tartrate [Lopressor 50 mg PO BID 01/19/18 (beta curt)] RX: Benzocaine/Menthol [Cepacol 1 lozenge PO Q2H PRN PRN 03/19/18 Sore Throat Lozenge] RX: Benzonatate [Tessalon Perle] 100 mg PO TID PRN PRN 03/19/18 RX: Guaifenesin Dm [Robitussin Dm] 5 ml PO Q4H PRN PRN 03/19/18 RX: Ibuprofen [Ibu] 800 mg PO Q8H PRN PRN 03/19/18 RX: Oxycodone HCl/Acetaminophen 2 tablet PO Q6H PRN PRN 03/19/18 [Percocet 10-325 mg Tablet] RX: Pantoprazole Sodium [Protonix] 40 mg PO DAILY 03/19/18 RX: Testosterone [Androderm 2mg/24 1 each TD DAILY 03/19/18 hr] Lactobacillus Acidophilus 2 each PO TID 04/19/18 [Acidophilus] Psyllium Husk [Fiber Laxative] 0.52 gm PO TIDCM 04/19/18 RX: Clindamycin HCl 300 mg PO TID 04/19/18 Sodium Hypochlorite [Dakins 50 ml TOPICAL DAILY 04/19/18 Solution 0.25% (1/2 Strength)] Diphenoxylate HCl/Atropine 1 each PO BID PRN PRN 05/03/18 [Lomotil 2.5-0.025 mg Tablet] - Family History Maternal - - Denies any marked maternal or paternal family history including DM, HTN, HD. Paternal - - Denies any marked maternal or paternal family history including DM, HTN, HD. Smoking Status: Never smoker - Physical Exam Vital Signs Temp Pulse Resp BP 96.8 F L 65 18 135/64 H 05/03/18 11:11 05/03/18 11:11 05/03/18 11:11 05/03/18 11:11 Wound Measurements and Assessment WC - Nurse 1 - General Ulcer Measurement Start: 05/03/18 10:51 Freq: Status: Active Protocol: Activity Type Activity Date Activity User E-Sign Co-Sign Detail Recorded Client Recorded Date Recorded By Document 05/03/18 11:11 RB [id number] 05/03/18 11:21 RB 05/03/18 11:11 Wound Center Nurse 1 [Ulcer Assessment] 2. R Ischial -Combined with other wound No -Current Size (cm) - Length 5.7 -Current Size (cm) - Width 3.3 -Current Size (cm) - Depth 1 -Total Square Cm 18.81 -Photo Taken Yes -Tunneling No -Undermining/Tunneling No -Circular Undermining No -Exudate Amt Small -Exudate Type Serosanguineous -Wound Margin Thickened & Rolled Under -Granulation Amt Medium (34-66%) -Granulation Quality [place] -Slough/Fibrin Yes -Necrosis Amt Medium (34-66%) -Necrotic Tissue Type Adherent Slough -Structure Exposed N/A -Texture (Nathalie-wound Skin Appearance) Assessed -Moisture (Nathalie-wound Skin Appearance Assessed ) Maceration -Color (Nathalie-wound Skin Appearance) Assessed -Temperature (Nathalie-wound Skin No Abnormality Appearance) (Pt Warm) -Tenderness on Palpation (Nathalie-wound No Skin Appearance) -Ulcer Cleansing Wound Cleanser -Foul Odor after Cleansing No -Anesthetic Used 4% Lidocaine Solution [Edema Assessment] -Lower Limb Edema Present NA - Nurse 2 - General Ulcer CM Notes Start: 05/03/18 10:51 Freq: Status: Active Protocol: Activity Type Activity Date Activity User E-Sign Co-Sign Detail Recorded Client Recorded Date Recorded By Document 05/03/18 11:44 AN [id number] 05/03/18 11:53 AN 05/03/18 11:44 Wound Center Nurse 2 [Procedure/Treatment] 2. R Ischial -Time 11:46 -Correct Patient Yes -Correct Side, Site, Position Yes -Correct Procedure Yes -Procedure Performed Yes -Type of Procedure Debridement -Clinical Debridement Subcutaneous -Post Debridement Size (cm) - Length 5.5 -Post Debridement Size (cm) - Width 3.5 -Post Debridement Size (cm) - Depth 1.2 -Total Square Cm 19.25 -Wound/Ulcer Outcome Not Healed -Ulcer Cleansing Rinsed/ Irrigated with Saline -Foul Odor after Cleansing No -Bioengineered Tissue No -Bleeding Controlled with Pressure -Offloading No -Treatment Response Procedure Tolerated Well [See Physician Procedure note for Specifics] Pain Scale: 0-10 Numeric [Pain] -Is Patient Pain Free? Yes Debridement Note Post-Debridement Measurements/Treatment - Nurse 2 - General Ulcer CM Notes Start: 05/03/18 10:51 Freq: Status: Active Protocol: Activity Type Activity Date Activity User E-Sign Co-Sign Detail Recorded Client Recorded Date Recorded By Document 05/03/18 11:44 AN [id number] 05/03/18 11:53 AN 05/03/18 11:44 Wound Center Nurse 2 2. R Ischial -Time 11:46 -Correct Patient Yes -Correct Side, Site, Position Yes -Correct Procedure Yes -Procedure Performed Yes -Type of Procedure Debridement -Clinical Debridement Subcutaneous -Post Debridement Size (cm) - Length 5.5 -Post Debridement Size (cm) - Width 3.5 -Post Debridement Size (cm) - Depth 1.2 -Total Square Cm 19.25 -Wound/Ulcer Outcome Not Healed -Ulcer Cleansing Rinsed/ Irrigated with Saline -Foul Odor after Cleansing No -Bioengineered Tissue No -Bleeding Controlled with Pressure -Offloading No -Treatment Response Procedure Tolerated Well Pain Scale: 0-10 Numeric Is Patient Pain Free? 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 Osteomyelitis right pelvic region status post surgical debridement and chronic antibiotic. Plan: Debridement done as documented above. Procedure was well-tolerated. Aquacel extra with Adaptic over top for now. Will request records from the [facility] and patient is also set to call them to schedule his flap/reconstruction surgery. If this is going to be done soon, will continue Aquacel for now however if there are no immediate plans, will consider more advanced wound therapy/snap Vac therapy to help improve chances of healing. Increased protein intake. Lower loss air mattress, gel cushion for sitting. Reposition often. His questions were answered and he was advised to call with any further questions or concerns. Follow-up in 1 week. This note was generated with [employer] dictation software. It may contain incorrect words, spelling, and punctuation that were not noted in checking the note before signing.
[2018-05-10 11:46] VITALS: BP 144/66; PULSE 64; RESP 18; TEMP 36.8; BMI 27.8
--- NOTE | 2018-05-10 13:15 | PCM.WC.PN ---
(1) Acute osteomyelitis of right pelvic region Status: Chronic Current Visit: Yes Code(s): M86.151 - Other acute osteomyelitis, right femur (2) Right ischial pressure sore, stage 4 Status: Chronic Current Visit: Yes Code(s): L89.314 - Pressure ulcer of right buttock, stage 4 (3) Soft tissue radionecrosis Status: Chronic Current Visit: Yes Code(s): L59.8 - Other specified disorders of the skin and subcutaneous tissue related to radiation; Y84.2 - Radiological procedure and radiotherapy as the cause of abnormal reaction of the patient, or of later complication, without mention of misadventure at the time of the procedure Type of Wound Chief Complaint: Nonhealing radiation pressure ulcer. History of Wound: Mr Rincon is a 63 yo very well known to the wound center and up to a couple of weeks ago, was following up with Dr. Mesa for his chronic right buttock stage IV ulcer. He also had sessions of HBO. He however was referred to a tertiary center due to concerns for osteomyelitis. He is status post surgical debridement and chronic antibiotics at the [facility]. He has done well since then. He returns here for continued wound care. He denies any concerns at this time. It appears he has been having a wet-to-dry dressing at his nursing facility. He denies any significant discharge from the wound. His VAC was discontinued. He denies chills, fever or feeling of unwell. Plan per patient is for a possible flap closure. Progress of Wound: Improving. No new concerns at this time. - Physical Exam Vital Signs Temp Pulse Resp BP 98.2 F 64 18 144/66 H 05/10/18 11:46 05/10/18 11:46 05/10/18 11:46 05/10/18 11:46 General: Alert, Oriented x3, Cooperative, No apparent distress HEENT: Atraumatic, Normocephalic Oral: Moist Mucosa Neck: Supple Lungs: Normal air movement Extremities: No cyanosis Skin: Ulcer/ Wound Wound Measurements and Assessment WC - Nurse 1 - General Ulcer Measurement Start: 05/03/18 10:51 Freq: Status: Active Protocol: Activity Type Activity Date Activity User E-Sign Co-Sign Detail Recorded Client Recorded Date Recorded By Document 05/10/18 11:46 AN [id number] 05/10/18 11:59 AN 05/10/18 11:46 Wound Center Nurse 1 [Ulcer Assessment] 2. R Ischial -Current Size (cm) - Length 6.5 -Current Size (cm) - Width 3.2 -Current Size (cm) - Depth 1.8 -Total Square Cm 20.80 -Tunneling No -Classification - Thickness Full Thickness with Exposed Support Structure -Exudate Amt Medium -Exudate Type Serosanguineous -Wound Margin Distinct, Outline Attached -Granulation Amt Medium (34-66%) -Granulation Quality Pale [place] -Slough/Fibrin Yes -Necrosis Amt Medium (34-66%) -Necrotic Tissue Type Adherent Slough -Structure Exposed Bone -Texture (Nathalie-wound Skin Appearance) Assessed Scarring -Moisture (Nathalie-wound Skin Appearance Assessed ) -Color (Nathalie-wound Skin Appearance) Assessed Erythema -Temperature (Nathalie-wound Skin No Abnormality Appearance) (Pt Warm) -Tenderness on Palpation (Nathalie-wound Yes Skin Appearance) -Ulcer Cleansing Rinsed/ Irrigated with Saline -Foul Odor after Cleansing No -Anesthetic Used 4% Lidocaine Solution WC - Nurse 2 - General Ulcer CM Notes Start: 05/03/18 10:51 Freq: Status: Active Protocol: Activity Type Activity Date Activity User E-Sign Co-Sign Detail Recorded Client Recorded Date Recorded By Document 05/10/18 12:10 MW [id number] 05/10/18 12:12 MW 05/10/18 12:10 Wound Center Nurse 2 [Procedure/Treatment] -Time 12:11 -Correct Patient Yes -Correct Side, Site, Position Yes -Correct Procedure Yes -Procedure Performed Yes -Type of Procedure Debridement -Clinical Debridement Subcutaneous -Post Debridement Size (cm) - Length 5.0 -Post Debridement Size (cm) - Width 3.5 -Post Debridement Size (cm) - Depth 0.9 -Total Square Cm 17.50 -Wound/Ulcer Outcome Not Healed -Ulcer Cleansing Rinsed/ Irrigated with Saline -Foul Odor after Cleansing No -Bioengineered Tissue No -Bleeding Controlled with Pressure -Offloading No -Treatment Response Procedure Tolerated Well [See Physician Procedure note for Specifics] Pain Scale: 0-10 Numeric [Pain] -Is Patient Pain Free? Yes Musculoskeletal: No Muscle Wasting Neurological: Cranial nerves II-XII grossly intact Psych/Mental Status: Normal Affect Debridement Note Post-Debridement Measurements/Treatment WC - Nurse 2 - General Ulcer CM Notes Start: 05/03/18 10:51 Freq: Status: Active Protocol: Activity Type Activity Date Activity User E-Sign Co-Sign Detail Recorded Client Recorded Date Recorded By Document 05/03/18 11:44 AN [id number] 05/03/18 11:53 AN Document 05/10/18 12:10 MW [id number] 05/10/18 12:12 MW 05/03/18 05/10/18 11:44 12:10 Wound Center Nurse 2 2. R Ischial -Time 11:46 12:11 -Correct Patient Yes Yes -Correct Side, Site, Position Yes Yes -Correct Procedure Yes Yes -Procedure Performed Yes Yes -Type of Procedure Debridement Debridement -Clinical Debridement Subcutaneous Subcutaneous -Post Debridement Size (cm) - Length 5.5 5.0 -Post Debridement Size (cm) - Width 3.5 3.5 -Post Debridement Size (cm) - Depth 1.2 0.9 -Total Square Cm 19.25 17.50 -Wound/Ulcer Outcome Not Healed Not Healed -Ulcer Cleansing Rinsed/ Rinsed/ Irrigated with Irrigated with Saline Saline -Foul Odor after Cleansing No No -Bioengineered Tissue No No -Bleeding Controlled with Pressure Pressure -Offloading No No -Treatment Response Procedure Procedure Tolerated Well Tolerated Well Pain Scale: 0-10 Numeric Is Patient Pain Free? Yes Yes Wound debrided: Right buttock Wound Grade/Stage: Stage IV Type of Debridement: Excisional debridement Anesthesia Used: 4% Lidocaine Solution Depth: Down to and including healthy tissue, in the subcutaneous layer Percentage of wound debrided: 100 Instrument Used: 7mm curette Tissue Removed: Slough and devitalized tissue Severity: Fat Layer Exposed Amount of bleeding with debridement: Mild Bleeding Controlled with: Pressure Patient tolerated procedure well Assessment/Plan Active Problems Acute osteomyelitis of right pelvic region (Chronic) Right ischial pressure sore, 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) Assessment: Nonhealing right buttock pressure ulcer, stage IV. Osteomyelitis right pelvic region status post surgical debridement and chronic antibiotic. Plan: Debridement done as documented above. Procedure was well-tolerated. Continue Aquacel extra with Adaptic over top for now. Scheduled to follow-up with the [facility] to discuss flap surgery soon. Patient is however unsure of the date but is sometime in May. Increased protein intake. Lower loss air mattress, gel cushion for sitting. Reposition often. His questions were answered and he was advised to call with any further questions or concerns. Follow-up in 1 week. This note was generated with [employer] dictation software. It may contain incorrect words, spelling, and punctuation that were not noted in checking the note before signing.
--- NOTE | 2018-05-10 13:18 | PN.PCM_ITS ---
(1) Acute osteomyelitis of right pelvic region Status: Chronic Current Visit: Yes Code(s): M86.151 - Other acute osteomyelitis, right femur (2) Right ischial pressure sore, stage 4 Status: Chronic Current Visit: Yes Code(s): L89.314 - Pressure ulcer of right buttock, stage 4 (3) Soft tissue radionecrosis Status: Chronic Current Visit: Yes Code(s): L59.8 - Other specified disorders of the skin and subcutaneous tissue related to radiation; Y84.2 - Radiological procedure and radiotherapy as the cause of abnormal reaction of the patient, or of later complication, without mention of misadventure at the time of the procedure Type of Wound Chief Complaint: Nonhealing radiation pressure ulcer. History of Wound: Mr Rincon is a 63 yo very well known to the wound center and up to a couple of weeks ago, was following up with Dr. Mesa for his chronic right buttock stage IV ulcer. He also had sessions of HBO. He however was referred to a tertiary center due to concerns for osteomyelitis. He is status post surgical debridement and chronic antibiotics at the [facility]. He has done well since then. He returns here for continued wound care. He denies any concerns at this time. It appears he has been having a wet-to-dry dressing at his nursing facility. He denies any significant discharge from the wound. His VAC was discontinued. He denies chills, fever or feeling of unwell. Plan per patient is for a possible flap closure. Progress of Wound: Improving. No new concerns at this time. - Physical Exam Vital Signs Temp Pulse Resp BP 98.2 F 64 18 144/66 H 05/10/18 11:46 05/10/18 11:46 05/10/18 11:46 05/10/18 11:46 General: Alert, Oriented x3, Cooperative, No apparent distress HEENT: Atraumatic, Normocephalic Oral: Moist Mucosa Neck: Supple Lungs: Normal air movement Extremities: No cyanosis Skin: Ulcer/ Wound Wound Measurements and Assessment WC - Nurse 1 - General Ulcer Measurement Start: 05/03/18 10:51 Freq: Status: Active Protocol: Activity Type Activity Date Activity User E-Sign Co-Sign Detail Recorded Client Recorded Date Recorded By Document 05/10/18 11:46 AN [id number] 05/10/18 11:59 AN 05/10/18 11:46 Wound Center Nurse 1 [Ulcer Assessment] 2. R Ischial -Current Size (cm) - Length 6.5 -Current Size (cm) - Width 3.2 -Current Size (cm) - Depth 1.8 -Total Square Cm 20.80 -Tunneling No -Classification - Thickness Full Thickness with Exposed Support Structure -Exudate Amt Medium -Exudate Type Serosanguineous -Wound Margin Distinct, Outline Attached -Granulation Amt Medium (34-66%) -Granulation Quality Pale [place] -Slough/Fibrin Yes -Necrosis Amt Medium (34-66%) -Necrotic Tissue Type Adherent Slough -Structure Exposed Bone -Texture (Nathalie-wound Skin Appearance) Assessed Scarring -Moisture (Nathalie-wound Skin Appearance Assessed ) -Color (Nathalie-wound Skin Appearance) Assessed Erythema -Temperature (Nathalie-wound Skin No Abnormality Appearance) (Pt Warm) -Tenderness on Palpation (Nathalie-wound Yes Skin Appearance) -Ulcer Cleansing Rinsed/ Irrigated with Saline -Foul Odor after Cleansing No -Anesthetic Used 4% Lidocaine Solution WC - Nurse 2 - General Ulcer CM Notes Start: 05/03/18 10:51 Freq: Status: Active Protocol: Activity Type Activity Date Activity User E-Sign Co-Sign Detail Recorded Client Recorded Date Recorded By Document 05/10/18 12:10 MW [id number] 05/10/18 12:12 MW 05/10/18 12:10 Wound Center Nurse 2 [Procedure/Treatment] -Time 12:11 -Correct Patient Yes -Correct Side, Site, Position Yes -Correct Procedure Yes -Procedure Performed Yes -Type of Procedure Debridement -Clinical Debridement Subcutaneous -Post Debridement Size (cm) - Length 5.0 -Post Debridement Size (cm) - Width 3.5 -Post Debridement Size (cm) - Depth 0.9 -Total Square Cm 17.50 -Wound/Ulcer Outcome Not Healed -Ulcer Cleansing Rinsed/ Irrigated with Saline -Foul Odor after Cleansing No -Bioengineered Tissue No -Bleeding Controlled with Pressure -Offloading No -Treatment Response Procedure Tolerated Well [See Physician Procedure note for Specifics] Pain Scale: 0-10 Numeric [Pain] -Is Patient Pain Free? Yes Musculoskeletal: No Muscle Wasting Neurological: Cranial nerves II-XII grossly intact Psych/Mental Status: Normal Affect Debridement Note Post-Debridement Measurements/Treatment WC - Nurse 2 - General Ulcer CM Notes Start: 05/03/18 10:51 Freq: Status: Active Protocol: Activity Type Activity Date Activity User E-Sign Co-Sign Detail Recorded Client Recorded Date Recorded By Document 05/03/18 11:44 AN [id number] 05/03/18 11:53 AN Document 05/10/18 12:10 MW [id number] 05/10/18 12:12 MW 05/03/18 05/10/18 11:44 12:10 Wound Center Nurse 2 2. R Ischial -Time 11:46 12:11 -Correct Patient Yes Yes -Correct Side, Site, Position Yes Yes -Correct Procedure Yes Yes -Procedure Performed Yes Yes -Type of Procedure Debridement Debridement -Clinical Debridement Subcutaneous Subcutaneous -Post Debridement Size (cm) - Length 5.5 5.0 -Post Debridement Size (cm) - Width 3.5 3.5 -Post Debridement Size (cm) - Depth 1.2 0.9 -Total Square Cm 19.25 17.50 -Wound/Ulcer Outcome Not Healed Not Healed -Ulcer Cleansing Rinsed/ Rinsed/ Irrigated with Irrigated with Saline Saline -Foul Odor after Cleansing No No -Bioengineered Tissue No No -Bleeding Controlled with Pressure Pressure -Offloading No No -Treatment Response Procedure Procedure Tolerated Well Tolerated Well Pain Scale: 0-10 Numeric Is Patient Pain Free? Yes Yes Wound debrided: Right buttock Wound Grade/Stage: Stage IV Type of Debridement: Excisional debridement Anesthesia Used: 4% Lidocaine Solution Depth: Down to and including healthy tissue, in the subcutaneous layer Percentage of wound debrided: 100 Instrument Used: 7mm curette Tissue Removed: Slough and devitalized tissue Severity: Fat Layer Exposed Amount of bleeding with debridement: Mild Bleeding Controlled with: Pressure Patient tolerated procedure well Assessment/Plan Active Problems Acute osteomyelitis of right pelvic region (Chronic) Right ischial pressure sore, 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) Assessment: Nonhealing right buttock pressure ulcer, stage IV. Osteomyelitis right pelvic region status post surgical debridement and chronic antibiotic. Plan: Debridement done as documented above. Procedure was well-tolerated. Continue Aquacel extra with Adaptic over top for now. Scheduled to follow-up with the [facility] to discuss flap surgery soon. Patient is however unsure of the date but is sometime in May. Increased protein intake. Lower loss air mattress, gel cushion for sitting. Reposition often. His questions were answered and he was advised to call with any further questions or concerns. Follow-up in 1 week. This note was generated with [employer] dictation software. It may contain incorrect words, spelling, and punctuation that were not noted in checking the note before signing.
== END 2018-05-10 23:59 ==
LOC: WC 11:00
PROVIDERS: Family Provider Internal Medicine; PCP Internal Medicine; Visit Provider Internal Medicine
DX: L59.8 Other specified disorders of the skin and subcutaneous tissue related to radiation (principal); Y84.2 Radiological procedure and radiotherapy as the cause of abnormal reaction of the patient, or of later complication, without mention of misadventure at the time of the procedure; L89.314 Pressure ulcer of right buttock, stage 4; J44.9 Chronic obstructive pulmonary disease, unspecified; K21.9 Gastro-esophageal reflux disease without esophagitis; I73.9 Peripheral vascular disease, unspecified; E78.5 Hyperlipidemia, unspecified; I10 Essential (primary) hypertension; Z85.048 Personal history of other malignant neoplasm of rectum, rectosigmoid junction, and anus; Z86.14 Personal history of Methicillin resistant Staphylococcus aureus infection; Z79.899 Other long term (current) drug therapy
CPT/HCPCS: 11042; 99213; G0463

== ENCOUNTER 2018-06-07 10:30 | Outpatient (RCR) | payer MEDICAID, SELFPAY ==
[2018-05-11 01:50] VITALS: BP 144/66; PULSE 64; RESP 18; TEMP 36.8
[2018-05-17 10:05] VITALS: BP 114/59; PULSE 63; RESP 18; TEMP 36.3; BMI 27.8
--- NOTE | 2018-05-17 13:23 | PCM.WC.PN ---
(1) Right ischial pressure sore, stage 4 Status: Chronic Current Visit: Yes Code(s): L89.314 - Pressure ulcer of right buttock, stage 4 (2) Soft tissue radionecrosis Status: Chronic Current Visit: No Code(s): L59.8 - Other specified disorders of the skin and subcutaneous tissue related to radiation; Y84.2 - Radiological procedure and radiotherapy as the cause of abnormal reaction of the patient, or of later complication, without mention of misadventure at the time of the procedure Type of Wound Chief Complaint: Nonhealing radiation pressure ulcer. History of Wound: Mr Rincon is a 63 yo very well known to the wound center and up to a couple of weeks ago, was following up with Dr. Mesa for his chronic right buttock stage IV ulcer. He also had sessions of HBO. He however was referred to a tertiary center due to concerns for osteomyelitis. He is status post surgical debridement and chronic antibiotics at the [facility]. He has done well since then. He returns here for continued wound care. He denies any concerns at this time. It appears he has been having a wet-to-dry dressing at his nursing facility. He denies any significant discharge from the wound. His VAC was discontinued. He denies chills, fever or feeling of unwell. Plan per patient is for a possible flap closure. Progress of Wound: Stable. No concerns at this time. - Physical Exam Vital Signs Temp Pulse Resp BP 97.3 F L 63 18 114/59 L 05/17/18 10:05 05/17/18 10:05 05/17/18 10:05 05/17/18 10:05 General: Alert, Oriented x3, Cooperative, No apparent distress HEENT: Atraumatic, Normocephalic Oral: Moist Mucosa Neck: Supple Lungs: Normal air movement Extremities: No cyanosis Skin: Ulcer/ Wound Wound Measurements and Assessment WC - Nurse 1 - General Ulcer Measurement Start: 05/17/18 10:05 Freq: Status: Active Protocol: Activity Type Activity Date Activity User E-Sign Co-Sign Detail Recorded Client Recorded Date Recorded By Document 05/17/18 10:05 AN [id number] 05/17/18 10:20 AN 05/17/18 10:05 Wound Center Nurse 1 [Ulcer Assessment] 2. R Ischial -Current Size (cm) - Length 6 -Current Size (cm) - Width 3.2 -Current Size (cm) - Depth 0.4 -Total Square Cm 19.2 -Undermining/Tunneling Yes -Undermining/Tunneling Starts (O' 11 clock) -Undermining/Tunneling Ends (O'clock) 3 -Maximum Distance (cm) 1.9 -Classification - Thickness Full Thickness with Exposed Support Structure -Exudate Amt Medium -Exudate Type Serous -Wound Margin Distinct, Outline Attached -Granulation Amt Small (1-33%) -Granulation Quality Pale [place] -Slough/Fibrin Yes -Necrosis Amt Large (67-100%) -Necrotic Tissue Type Adherent Slough -Structure Exposed Fascia Bone Fat Layer Exposed -Texture (Nathalie-wound Skin Appearance) Assessed Scarring -Moisture (Nathalie-wound Skin Appearance Assessed ) Maceration -Color (Anthalie-wound Skin Appearance) Assessed -Temperature (Nathalie-wound Skin No Abnormality Appearance) (Pt Warm) -Tenderness on Palpation (Nathalie-wound No Skin Appearance) -Ulcer Cleansing Rinsed/ Irrigated with Saline -Foul Odor after Cleansing No -Anesthetic Used 5% Lidocaine Gel WC - Nurse 2 - General Ulcer CM Notes Start: 05/17/18 10:05 Freq: Status: Active Protocol: Activity Type Activity Date Activity User E-Sign Co-Sign Detail Recorded Client Recorded Date Recorded By Document 05/17/18 11:03 MW [id number] 05/17/18 11:07 MW 05/17/18 11:03 Wound Center Nurse 2 [Procedure/Treatment] -Time 11:03 -Correct Patient Yes -Correct Side, Site, Position Yes -Correct Procedure Yes -Procedure Performed Yes -Type of Procedure Debridement -Clinical Debridement Subcutaneous -Post Debridement Size (cm) - Length 4.5 -Post Debridement Size (cm) - Width 3.3 -Post Debridement Size (cm) - Depth 1.0 -Total Square Cm 14.85 -Wound/Ulcer Outcome Not Healed -Ulcer Cleansing Rinsed/ Irrigated with Saline -Foul Odor after Cleansing No -Bioengineered Tissue No -Bleeding Controlled with Pressure -Offloading No -Treatment Response Procedure Tolerated Well [See Physician Procedure note for Specifics] Pain Scale: 0-10 Numeric [Pain] -Is Patient Pain Free? Yes Musculoskeletal: No Muscle Wasting Neurological: Cranial nerves II-XII grossly intact Psych/Mental Status: Normal Affect Debridement Note Post-Debridement Measurements/Treatment WC - Nurse 2 - General Ulcer CM Notes Start: 05/17/18 10:05 Freq: Status: Active Protocol: Activity Type Activity Date Activity User E-Sign Co-Sign Detail Recorded Client Recorded Date Recorded By Document 05/17/18 11:03 MW [id number] 05/17/18 11:07 MW 05/17/18 11:03 Wound Center Nurse 2 2. R Ischial -Time 11:03 -Correct Patient Yes -Correct Side, Site, Position Yes -Correct Procedure Yes -Procedure Performed Yes -Type of Procedure Debridement -Clinical Debridement Subcutaneous -Post Debridement Size (cm) - Length 4.5 -Post Debridement Size (cm) - Width 3.3 -Post Debridement Size (cm) - Depth 1.0 -Total Square Cm 14.85 -Wound/Ulcer Outcome Not Healed -Ulcer Cleansing Rinsed/ Irrigated with Saline -Foul Odor after Cleansing No -Bioengineered Tissue No -Bleeding Controlled with Pressure -Offloading No -Treatment Response Procedure Tolerated Well Pain Scale: 0-10 Numeric Is Patient Pain Free? Yes Wound debrided: Right buttock Wound Grade/Stage: Stage IV Type of Debridement: Excisional debridement Anesthesia Used: 4% Lidocaine Solution Depth: Down to and including healthy tissue, in the subcutaneous layer Percentage of wound debrided: 100 Instrument Used: 7mm curette Tissue Removed: Slough and devitalized tissue Severity: Fat Layer Exposed Amount of bleeding with debridement: Mild Bleeding Controlled with: Pressure Patient tolerated procedure well Assessment/Plan Active Problems Right ischial pressure sore, stage 4 (Chronic) Assessment: Nonhealing right buttock pressure ulcer, stage IV. Osteomyelitis right pelvic region status post surgical debridement and chronic antibiotic. Plan: Debridement done as documented above. Procedure was well-tolerated. Continue Aquacel extra with Adaptic over top for now. Scheduled to follow-up with the [facility] to discuss flap surgery on 05 June. Increased protein intake. Lower loss air mattress, gel cushion for sitting. Reposition often. His questions were answered and he was advised to call with any further questions or concerns. Follow-up in 1 week. This note was generated with [employer] software. It may contain incorrect words, spelling, and punctuation that were not noted in checking the note before signing.
--- NOTE | 2018-05-17 13:26 | PN.PCM_ITS ---
(1) Right ischial pressure sore, stage 4 Status: Chronic Current Visit: Yes Code(s): L89.314 - Pressure ulcer of right buttock, stage 4 (2) Soft tissue radionecrosis Status: Chronic Current Visit: No Code(s): L59.8 - Other specified disorders of the skin and subcutaneous tissue related to radiation; Y84.2 - Radiological procedure and radiotherapy as the cause of abnormal reaction of the patient, or of later complication, without mention of misadventure at the time of the procedure Type of Wound Chief Complaint: Nonhealing radiation pressure ulcer. History of Wound: Mr Rincon is a 63 yo very well known to the wound center and up to a couple of weeks ago, was following up with Dr. Mesa for his chronic right buttock stage IV ulcer. He also had sessions of HBO. He however was referred to a tertiary center due to concerns for osteomyelitis. He is status post surgical debridement and chronic antibiotics at the [facility]. He has done well since then. He returns here for continued wound care. He denies any concerns at this time. It appears he has been having a wet-to-dry dressing at his nursing facility. He denies any significant discharge from the wound. His VAC was discontinued. He denies chills, fever or feeling of unwell. Plan per patient is for a possible flap closure. Progress of Wound: Stable. No concerns at this time. - Physical Exam Vital Signs Temp Pulse Resp BP 97.3 F L 63 18 114/59 L 05/17/18 10:05 05/17/18 10:05 05/17/18 10:05 05/17/18 10:05 General: Alert, Oriented x3, Cooperative, No apparent distress HEENT: Atraumatic, Normocephalic Oral: Moist Mucosa Neck: Supple Lungs: Normal air movement Extremities: No cyanosis Skin: Ulcer/ Wound Wound Measurements and Assessment WC - Nurse 1 - General Ulcer Measurement Start: 05/17/18 10:05 Freq: Status: Active Protocol: Activity Type Activity Date Activity User E-Sign Co-Sign Detail Recorded Client Recorded Date Recorded By Document 05/17/18 10:05 AN [id number] 05/17/18 10:20 AN 05/17/18 10:05 Wound Center Nurse 1 [Ulcer Assessment] 2. R Ischial -Current Size (cm) - Length 6 -Current Size (cm) - Width 3.2 -Current Size (cm) - Depth 0.4 -Total Square Cm 19.2 -Undermining/Tunneling Yes -Undermining/Tunneling Starts (O' 11 clock) -Undermining/Tunneling Ends (O'clock) 3 -Maximum Distance (cm) 1.9 -Classification - Thickness Full Thickness with Exposed Support Structure -Exudate Amt Medium -Exudate Type Serous -Wound Margin Distinct, Outline Attached -Granulation Amt Small (1-33%) -Granulation Quality Pale [place] -Slough/Fibrin Yes -Necrosis Amt Large (67-100%) -Necrotic Tissue Type Adherent Slough -Structure Exposed Fascia Bone Fat Layer Exposed -Texture (Nathalie-wound Skin Appearance) Assessed Scarring -Moisture (Nathalie-wound Skin Appearance Assessed ) Maceration -Color (Nathalie-wound Skin Appearance) Assessed -Temperature (Nathalie-wound Skin No Abnormality Appearance) (Pt Warm) -Tenderness on Palpation (Nathalie-wound No Skin Appearance) -Ulcer Cleansing Rinsed/ Irrigated with Saline -Foul Odor after Cleansing No -Anesthetic Used 5% Lidocaine Gel WC - Nurse 2 - General Ulcer CM Notes Start: 05/17/18 10:05 Freq: Status: Active Protocol: Activity Type Activity Date Activity User E-Sign Co-Sign Detail Recorded Client Recorded Date Recorded By Document 05/17/18 11:03 MW [id number] 05/17/18 11:07 MW 05/17/18 11:03 Wound Center Nurse 2 [Procedure/Treatment] -Time 11:03 -Correct Patient Yes -Correct Side, Site, Position Yes -Correct Procedure Yes -Procedure Performed Yes -Type of Procedure Debridement -Clinical Debridement Subcutaneous -Post Debridement Size (cm) - Length 4.5 -Post Debridement Size (cm) - Width 3.3 -Post Debridement Size (cm) - Depth 1.0 -Total Square Cm 14.85 -Wound/Ulcer Outcome Not Healed -Ulcer Cleansing Rinsed/ Irrigated with Saline -Foul Odor after Cleansing No -Bioengineered Tissue No -Bleeding Controlled with Pressure -Offloading No -Treatment Response Procedure Tolerated Well [See Physician Procedure note for Specifics] Pain Scale: 0-10 Numeric [Pain] -Is Patient Pain Free? Yes Musculoskeletal: No Muscle Wasting Neurological: Cranial nerves II-XII grossly intact Psych/Mental Status: Normal Affect Debridement Note Post-Debridement Measurements/Treatment WC - Nurse 2 - General Ulcer CM Notes Start: 05/17/18 10:05 Freq: Status: Active Protocol: Activity Type Activity Date Activity User E-Sign Co-Sign Detail Recorded Client Recorded Date Recorded By Document 05/17/18 11:03 MW [id number] 05/17/18 11:07 MW 05/17/18 11:03 Wound Center Nurse 2 2. R Ischial -Time 11:03 -Correct Patient Yes -Correct Side, Site, Position Yes -Correct Procedure Yes -Procedure Performed Yes -Type of Procedure Debridement -Clinical Debridement Subcutaneous -Post Debridement Size (cm) - Length 4.5 -Post Debridement Size (cm) - Width 3.3 -Post Debridement Size (cm) - Depth 1.0 -Total Square Cm 14.85 -Wound/Ulcer Outcome Not Healed -Ulcer Cleansing Rinsed/ Irrigated with Saline -Foul Odor after Cleansing No -Bioengineered Tissue No -Bleeding Controlled with Pressure -Offloading No -Treatment Response Procedure Tolerated Well Pain Scale: 0-10 Numeric Is Patient Pain Free? Yes Wound debrided: Right buttock Wound Grade/Stage: Stage IV Type of Debridement: Excisional debridement Anesthesia Used: 4% Lidocaine Solution Depth: Down to and including healthy tissue, in the subcutaneous layer Percentage of wound debrided: 100 Instrument Used: 7mm curette Tissue Removed: Slough and devitalized tissue Severity: Fat Layer Exposed Amount of bleeding with debridement: Mild Bleeding Controlled with: Pressure Patient tolerated procedure well Assessment/Plan Active Problems Right ischial pressure sore, stage 4 (Chronic) Assessment: Nonhealing right buttock pressure ulcer, stage IV. Osteomyelitis right pelvic region status post surgical debridement and chronic antibiotic. Plan: Debridement done as documented above. Procedure was well-tolerated. Continue Aquacel extra with Adaptic over top for now. Scheduled to follow-up with the [facility] to discuss flap surgery on 05 June. Increased protein intake. Lower loss air mattress, gel cushion for sitting. Reposition often. His questions were answered and he was advised to call with any further questions or concerns. Follow-up in 1 week. This note was generated with [employer] software. It may contain incorrect words, spelling, and punctuation that were not noted in checking the note before signing.
[2018-05-24 10:33] VITALS: BP 128/72; PULSE 65; RESP 16; TEMP 36.8; BMI 27.8
--- NOTE | 2018-05-24 11:18 | PCM.WC.PN ---
(1) Right ischial pressure sore, stage 4 Status: Chronic Current Visit: Yes Code(s): L89.314 - Pressure ulcer of right buttock, stage 4 (2) Soft tissue radionecrosis Status: Chronic Current Visit: No Code(s): L59.8 - Other specified disorders of the skin and subcutaneous tissue related to radiation; Y84.2 - Radiological procedure and radiotherapy as the cause of abnormal reaction of the patient, or of later complication, without mention of misadventure at the time of the procedure (3) Skin ulcer of elbow with fat layer exposed Status: Acute Current Visit: Yes Code(s): L98.492 - Non-pressure chronic ulcer of skin of other sites with fat layer exposed Type of Wound Chief Complaint: Nonhealing radiation pressure ulcer. History of Wound: Mr Rincon is a 63 yo very well known to the wound center and up to a couple of weeks ago, was following up with Dr. Mesa for his chronic right buttock stage IV ulcer. He also had sessions of HBO. He however was referred to a tertiary center due to concerns for osteomyelitis. He is status post surgical debridement and chronic antibiotics at the [facility]. He has done well since then. He returns here for continued wound care. He denies any concerns at this time. It appears he has been having a wet-to-dry dressing at his nursing facility. He denies any significant discharge from the wound. His VAC was discontinued. He denies chills, fever or feeling of unwell. Plan per patient is for a possible flap closure. Progress of Wound: Buttock ulcer is stable. Presents with a new right elbow ulcer. He states that for couple of weeks he had bursitis which subsequently opened up and has been draining. Mild pain. - Physical Exam Vital Signs Temp Pulse Resp BP 98.2 F 65 16 128/72 H 05/24/18 10:33 05/24/18 10:33 05/24/18 10:33 05/24/18 10:33 General: Alert, Oriented x3, Cooperative, No apparent distress HEENT: Atraumatic, Normocephalic Oral: Moist Mucosa Neck: Supple Lungs: Normal air movement Extremities: No cyanosis Skin: Ulcer/ Wound Wound Measurements and Assessment WC - Nurse 1 - General Ulcer Measurement Start: 05/17/18 10:05 Freq: Status: Active Protocol: Activity Type Activity Date Activity User E-Sign Co-Sign Detail Recorded Client Recorded Date Recorded By Document 05/24/18 10:33 [facility] [id number] 05/24/18 10:40 BM Document 05/24/18 10:43 [facility] [id number] 05/24/18 10:47 BM 05/24/18 05/24/18 10:33 10:43 Wound Center Nurse 1 [Ulcer Assessment] #3- RT ELBOW -Combined with other wound No -Current Size (cm) - Length 0.2 -Current Size (cm) - Width 0.2 -Current Size (cm) - Depth 0.2 -Total Square Cm 0.04 -Date of Last Picture (Recall this 05/24/18 field) -Photo Taken Yes -Epithelialization None Present -Tunneling No -Undermining/Tunneling No -Circular Undermining No -Exudate Amt Large -Exudate Type Serous -Wound Margin Flat & Intact -Granulation Amt Large (67-100%) -Granulation Quality [place] -Slough/Fibrin No -Necrosis Amt Small (1-33%) -Necrotic Tissue Type Adherent Slough -Texture (Nathalie-wound Skin Appearance) Localized Edema Scarring -Moisture (Nathalie-wound Skin Appearance Assessed ) Weeping -Color (Nathalie-wound Skin Appearance) Assessed Erythema -Temperature (Nathalie-wound Skin No Abnormality Appearance) (Pt Warm) -Tenderness on Palpation (Nathalie-wound Yes Skin Appearance) -Ulcer Cleansing Rinsed/ Irrigated with Saline -Foul Odor after Cleansing No -Anesthetic Used 4% Lidocaine Solution 2. R Ischial -Combined with other wound No -Current Size (cm) - Length 5.5 -Current Size (cm) - Width 3.4 -Current Size (cm) - Depth 0.3 -Total Square Cm 18.70 -Date of Last Picture (Recall this 05/24/18 field) -Photo Taken Yes -Tunneling No -Undermining/Tunneling Yes -Undermining/Tunneling Starts (O' 12 clock) -Undermining/Tunneling Ends (O'clock) 2 -Maximum Distance (cm) 2.0 -Circular Undermining No -Exudate Amt Medium -Exudate Type Serosanguineous -Wound Margin Thickened & Rolled Under -Granulation Amt Medium (34-66%) -Granulation Quality Pale [place] -Necrosis Amt Medium (34-66%) -Necrotic Tissue Type Adherent Slough -Structure Exposed Bone -Texture (Nathalie-wound Skin Appearance) Assessed -Moisture (Nathalie-wound Skin Appearance Assessed ) Dry/Scaly -Color (Nathalie-wound Skin Appearance) Assessed -Temperature (Nathalie-wound Skin No Abnormality Appearance) (Pt Warm) -Tenderness on Palpation (Nathalie-wound No Skin Appearance) -Ulcer Cleansing Rinsed/ Irrigated with Saline -Foul Odor after Cleansing No -Anesthetic Used 4% Lidocaine Solution WC - Nurse 2 - General Ulcer CM Notes Start: 05/17/18 10:05 Freq: Status: Active Protocol: Activity Type Activity Date Activity User E-Sign Co-Sign Detail Recorded Client Recorded Date Recorded By Document 05/24/18 10:51 MW [id number] 05/24/18 11:00 MW 05/24/18 10:51 Wound Center Nurse 2 [Procedure/Treatment] -Time 10:52 -Correct Patient Yes -Correct Side, Site, Position Yes -Correct Procedure Yes -Procedure Performed Yes -Type of Procedure Debridement -Clinical Debridement Subcutaneous -Post Debridement Size (cm) - Length 0.4 -Post Debridement Size (cm) - Width 0.4 -Post Debridement Size (cm) - Depth 0.1 -Total Square Cm 0.16 -Wound/Ulcer Outcome Not Healed -Ulcer Cleansing Rinsed/ Irrigated with Saline -Foul Odor after Cleansing No -Bioengineered Tissue No -Bleeding Controlled with Pressure -Other CIRCULAR UNDERMINING -Offloading No -Treatment Response Procedure Tolerated Well 2. R Ischial -Time 10:52 -Correct Patient Yes -Correct Side, Site, Position Yes -Correct Procedure Yes -Procedure Performed Yes -Type of Procedure Debridement -Clinical Debridement Subcutaneous -Post Debridement Size (cm) - Length 4.5 -Post Debridement Size (cm) - Width 3.5 -Post Debridement Size (cm) - Depth 1.5 -Total Square Cm 15.75 -Wound/Ulcer Outcome Not Healed -Ulcer Cleansing Rinsed/ Irrigated with Saline -Foul Odor after Cleansing No -Bioengineered Tissue No -Bleeding Controlled with Pressure -Other UNDERMINING 11- 3 - 2.0CM -Offloading No -Treatment Response Procedure Tolerated Well [See Physician Procedure note for Specifics] Pain Scale: 0-10 Numeric [Pain] -Is Patient Pain Free? Yes Musculoskeletal: No Muscle Wasting Neurological: Cranial nerves II-XII grossly intact Psych/Mental Status: Normal Affect Debridement Note Post-Debridement Measurements/Treatment WC - Nurse 2 - General Ulcer CM Notes Start: 05/17/18 10:05 Freq: Status: Active Protocol: Activity Type Activity Date Activity User E-Sign Co-Sign Detail Recorded Client Recorded Date Recorded By Document 05/17/18 11:03 MW [id number] 05/17/18 11:07 MW Document 05/24/18 10:51 MW [id number] 05/24/18 11:00 MW 05/17/18 05/24/18 11:03 10:51 Wound Center Nurse 2 #3- RT ELBOW -Time 10:52 -Correct Patient Yes -Correct Side, Site, Position Yes -Correct Procedure Yes -Procedure Performed Yes -Type of Procedure Debridement -Clinical Debridement Subcutaneous -Post Debridement Size (cm) - Length 0.4 -Post Debridement Size (cm) - Width 0.4 -Post Debridement Size (cm) - Depth 0.1 -Total Square Cm 0.16 -Wound/Ulcer Outcome Not Healed -Ulcer Cleansing Rinsed/ Irrigated with Saline -Foul Odor after Cleansing No -Bioengineered Tissue No -Bleeding Controlled with Pressure -Other CIRCULAR UNDERMINING -Offloading No -Treatment Response Procedure Tolerated Well 2. R Ischial -Time 11:03 10:52 -Correct Patient Yes Yes -Correct Side, Site, Position Yes Yes -Correct Procedure Yes Yes -Procedure Performed Yes Yes -Type of Procedure Debridement Debridement -Clinical Debridement Subcutaneous Subcutaneous -Post Debridement Size (cm) - Length 4.5 4.5 -Post Debridement Size (cm) - Width 3.3 3.5 -Post Debridement Size (cm) - Depth 1.0 1.5 -Total Square Cm 14.85 15.75 -Wound/Ulcer Outcome Not Healed Not Healed -Ulcer Cleansing Rinsed/ Rinsed/ Irrigated with Irrigated with Saline Saline -Foul Odor after Cleansing No No -Bioengineered Tissue No No -Bleeding Controlled with Pressure Pressure -Other UNDERMINING 11- 3 - 2.0CM -Offloading No No -Treatment Response Procedure Procedure Tolerated Well Tolerated Well Pain Scale: 0-10 Numeric Is Patient Pain Free? Yes Yes Wound debrided: Right elbow Wound Grade/Stage: Stage II Type of Debridement: Excisional debridement Anesthesia Used: 4% Lidocaine Solution Depth: Down to and including healthy tissue, in the subcutaneous layer Percentage of wound debrided: 100 Instrument Used: - - 2 mm Tissue Removed: Slough and devitalized tissue Severity: Fat Layer Exposed Amount of bleeding with debridement: Mild Bleeding Controlled with: Pressure Patient tolerated procedure well - Additional Wound Wound debrided: Right buttock Wound Grade/Stage: Stage IV Type of Debridement: Excisional debridement Anesthesia Used: 4% Lidocaine Solution Depth: Down to and including healthy tissue, in the subcutaneous layer Percentage of wound debrided: 100 Instrument Used: 5mm curette Tissue Removed: Slough and devitalized tissue Severity: Fat Layer Exposed Amount of bleeding with debridement: Mild Bleeding Controlled with: Pressure Patient tolerated procedure: Patient tolerated procedure well Assessment/Plan Active Problems Skin ulcer of elbow with fat layer exposed (Acute) Right ischial pressure sore, stage 4 (Chronic) Assessment: Nonhealing right buttock pressure ulcer, stage IV. Osteomyelitis right pelvic region status post surgical debridement and chronic antibiotic. Right elbow ulcer. Plan: Debridement done as documented above. Procedure was well-tolerated. Continue Aquacel extra with Adaptic over top for now to right buttock and iodoform packing to right elbow. Scheduled to follow-up with the [facility] to discuss flap surgery on 05 June. Increased protein intake. Lower loss air mattress, gel cushion for sitting. Reposition often. His questions were answered and he was advised to call with any further questions or concerns. Follow-up in 1 week. This note was generated with [employer] dictation software. It may contain incorrect words, spelling, and punctuation that were not noted in checking the note before signing.
--- NOTE | 2018-05-24 11:23 | PN.PCM_ITS ---
(1) Right ischial pressure sore, stage 4 Status: Chronic Current Visit: Yes Code(s): L89.314 - Pressure ulcer of right buttock, stage 4 (2) Soft tissue radionecrosis Status: Chronic Current Visit: No Code(s): L59.8 - Other specified disorders of the skin and subcutaneous tissue related to radiation; Y84.2 - Radiological procedure and radiotherapy as the cause of abnormal reaction of the patient, or of later complication, without mention of misadventure at the time of the procedure (3) Skin ulcer of elbow with fat layer exposed Status: Acute Current Visit: Yes Code(s): L98.492 - Non-pressure chronic ulcer of skin of other sites with fat layer exposed Type of Wound Chief Complaint: Nonhealing radiation pressure ulcer. History of Wound: Mr Rincon is a 63 yo very well known to the wound center and up to a couple of weeks ago, was following up with Dr. Mesa for his chronic right buttock stage IV ulcer. He also had sessions of HBO. He however was referred to a tertiary center due to concerns for osteomyelitis. He is status post surgical debridement and chronic antibiotics at the [facility]. He has done well since then. He returns here for continued wound care. He denies any concerns at this time. It appears he has been having a wet-to-dry dressing at his nursing facility. He denies any significant discharge from the wound. His VAC was discontinued. He denies chills, fever or feeling of unwell. Plan per patient is for a possible flap closure. Progress of Wound: Buttock ulcer is stable. Presents with a new right elbow ulcer. He states that for couple of weeks he had bursitis which subsequently opened up and has been draining. Mild pain. - Physical Exam Vital Signs Temp Pulse Resp BP 98.2 F 65 16 128/72 H 05/24/18 10:33 05/24/18 10:33 05/24/18 10:33 05/24/18 10:33 General: Alert, Oriented x3, Cooperative, No apparent distress HEENT: Atraumatic, Normocephalic Oral: Moist Mucosa Neck: Supple Lungs: Normal air movement Extremities: No cyanosis Skin: Ulcer/ Wound Wound Measurements and Assessment WC - Nurse 1 - General Ulcer Measurement Start: 05/17/18 10:05 Freq: Status: Active Protocol: Activity Type Activity Date Activity User E-Sign Co-Sign Detail Recorded Client Recorded Date Recorded By Document 05/24/18 10:33 [facility] [id number] 05/24/18 10:40 BM Document 05/24/18 10:43 [facility] [id number] 05/24/18 10:47 BM 05/24/18 05/24/18 10:33 10:43 Wound Center Nurse 1 [Ulcer Assessment] #3- RT ELBOW -Combined with other wound No -Current Size (cm) - Length 0.2 -Current Size (cm) - Width 0.2 -Current Size (cm) - Depth 0.2 -Total Square Cm 0.04 -Date of Last Picture (Recall this 05/24/18 field) -Photo Taken Yes -Epithelialization None Present -Tunneling No -Undermining/Tunneling No -Circular Undermining No -Exudate Amt Large -Exudate Type Serous -Wound Margin Flat & Intact -Granulation Amt Large (67-100%) -Granulation Quality [place] -Slough/Fibrin No -Necrosis Amt Small (1-33%) -Necrotic Tissue Type Adherent Slough -Texture (Nathalie-wound Skin Appearance) Localized Edema Scarring -Moisture (Nathalie-wound Skin Appearance Assessed ) Weeping -Color (Nathalie-wound Skin Appearance) Assessed Erythema -Temperature (Nathalie-wound Skin No Abnormality Appearance) (Pt Warm) -Tenderness on Palpation (Nathalie-wound Yes Skin Appearance) -Ulcer Cleansing Rinsed/ Irrigated with Saline -Foul Odor after Cleansing No -Anesthetic Used 4% Lidocaine Solution 2. R Ischial -Combined with other wound No -Current Size (cm) - Length 5.5 -Current Size (cm) - Width 3.4 -Current Size (cm) - Depth 0.3 -Total Square Cm 18.70 -Date of Last Picture (Recall this 05/24/18 field) -Photo Taken Yes -Tunneling No -Undermining/Tunneling Yes -Undermining/Tunneling Starts (O' 12 clock) -Undermining/Tunneling Ends (O'clock) 2 -Maximum Distance (cm) 2.0 -Circular Undermining No -Exudate Amt Medium -Exudate Type Serosanguineous -Wound Margin Thickened & Rolled Under -Granulation Amt Medium (34-66%) -Granulation Quality Pale [place] -Necrosis Amt Medium (34-66%) -Necrotic Tissue Type Adherent Slough -Structure Exposed Bone -Texture (Nathalie-wound Skin Appearance) Assessed -Moisture (Nathalie-wound Skin Appearance Assessed ) Dry/Scaly -Color (Nathalie-wound Skin Appearance) Assessed -Temperature (Nathalie-wound Skin No Abnormality Appearance) (Pt Warm) -Tenderness on Palpation (Nathalie-wound No Skin Appearance) -Ulcer Cleansing Rinsed/ Irrigated with Saline -Foul Odor after Cleansing No -Anesthetic Used 4% Lidocaine Solution WC - Nurse 2 - General Ulcer CM Notes Start: 05/17/18 10:05 Freq: Status: Active Protocol: Activity Type Activity Date Activity User E-Sign Co-Sign Detail Recorded Client Recorded Date Recorded By Document 05/24/18 10:51 MW [id number] 05/24/18 11:00 MW 05/24/18 10:51 Wound Center Nurse 2 [Procedure/Treatment] -Time 10:52 -Correct Patient Yes -Correct Side, Site, Position Yes -Correct Procedure Yes -Procedure Performed Yes -Type of Procedure Debridement -Clinical Debridement Subcutaneous -Post Debridement Size (cm) - Length 0.4 -Post Debridement Size (cm) - Width 0.4 -Post Debridement Size (cm) - Depth 0.1 -Total Square Cm 0.16 -Wound/Ulcer Outcome Not Healed -Ulcer Cleansing Rinsed/ Irrigated with Saline -Foul Odor after Cleansing No -Bioengineered Tissue No -Bleeding Controlled with Pressure -Other CIRCULAR UNDERMINING -Offloading No -Treatment Response Procedure Tolerated Well 2. R Ischial -Time 10:52 -Correct Patient Yes -Correct Side, Site, Position Yes -Correct Procedure Yes -Procedure Performed Yes -Type of Procedure Debridement -Clinical Debridement Subcutaneous -Post Debridement Size (cm) - Length 4.5 -Post Debridement Size (cm) - Width 3.5 -Post Debridement Size (cm) - Depth 1.5 -Total Square Cm 15.75 -Wound/Ulcer Outcome Not Healed -Ulcer Cleansing Rinsed/ Irrigated with Saline -Foul Odor after Cleansing No -Bioengineered Tissue No -Bleeding Controlled with Pressure -Other UNDERMINING 11- 3 - 2.0CM -Offloading No -Treatment Response Procedure Tolerated Well [See Physician Procedure note for Specifics] Pain Scale: 0-10 Numeric [Pain] -Is Patient Pain Free? Yes Musculoskeletal: No Muscle Wasting Neurological: Cranial nerves II-XII grossly intact Psych/Mental Status: Normal Affect Debridement Note Post-Debridement Measurements/Treatment WC - Nurse 2 - General Ulcer CM Notes Start: 05/17/18 10:05 Freq: Status: Active Protocol: Activity Type Activity Date Activity User E-Sign Co-Sign Detail Recorded Client Recorded Date Recorded By Document 05/17/18 11:03 MW [id number] 05/17/18 11:07 MW Document 05/24/18 10:51 MW [id number] 05/24/18 11:00 MW 05/17/18 05/24/18 11:03 10:51 Wound Center Nurse 2 #3- RT ELBOW -Time 10:52 -Correct Patient Yes -Correct Side, Site, Position Yes -Correct Procedure Yes -Procedure Performed Yes -Type of Procedure Debridement -Clinical Debridement Subcutaneous -Post Debridement Size (cm) - Length 0.4 -Post Debridement Size (cm) - Width 0.4 -Post Debridement Size (cm) - Depth 0.1 -Total Square Cm 0.16 -Wound/Ulcer Outcome Not Healed -Ulcer Cleansing Rinsed/ Irrigated with Saline -Foul Odor after Cleansing No -Bioengineered Tissue No -Bleeding Controlled with Pressure -Other CIRCULAR UNDERMINING -Offloading No -Treatment Response Procedure Tolerated Well 2. R Ischial -Time 11:03 10:52 -Correct Patient Yes Yes -Correct Side, Site, Position Yes Yes -Correct Procedure Yes Yes -Procedure Performed Yes Yes -Type of Procedure Debridement Debridement -Clinical Debridement Subcutaneous Subcutaneous -Post Debridement Size (cm) - Length 4.5 4.5 -Post Debridement Size (cm) - Width 3.3 3.5 -Post Debridement Size (cm) - Depth 1.0 1.5 -Total Square Cm 14.85 15.75 -Wound/Ulcer Outcome Not Healed Not Healed -Ulcer Cleansing Rinsed/ Rinsed/ Irrigated with Irrigated with Saline Saline -Foul Odor after Cleansing No No -Bioengineered Tissue No No -Bleeding Controlled with Pressure Pressure -Other UNDERMINING 11- 3 - 2.0CM -Offloading No No -Treatment Response Procedure Procedure Tolerated Well Tolerated Well Pain Scale: 0-10 Numeric Is Patient Pain Free? Yes Yes Wound debrided: Right elbow Wound Grade/Stage: Stage II Type of Debridement: Excisional debridement Anesthesia Used: 4% Lidocaine Solution Depth: Down to and including healthy tissue, in the subcutaneous layer Percentage of wound debrided: 100 Instrument Used: - - 2 mm Tissue Removed: Slough and devitalized tissue Severity: Fat Layer Exposed Amount of bleeding with debridement: Mild Bleeding Controlled with: Pressure Patient tolerated procedure well - Additional Wound Wound debrided: Right buttock Wound Grade/Stage: Stage IV Type of Debridement: Excisional debridement Anesthesia Used: 4% Lidocaine Solution Depth: Down to and including healthy tissue, in the subcutaneous layer Percentage of wound debrided: 100 Instrument Used: 5mm curette Tissue Removed: Slough and devitalized tissue Severity: Fat Layer Exposed Amount of bleeding with debridement: Mild Bleeding Controlled with: Pressure Patient tolerated procedure: Patient tolerated procedure well Assessment/Plan Active Problems Skin ulcer of elbow with fat layer exposed (Acute) Right ischial pressure sore, stage 4 (Chronic) Assessment: Nonhealing right buttock pressure ulcer, stage IV. Osteomyelitis right pelvic region status post surgical debridement and chronic antibiotic. Right elbow ulcer. Plan: Debridement done as documented above. Procedure was well-tolerated. Continue Aquacel extra with Adaptic over top for now to right buttock and iodoform packing to right elbow. Scheduled to follow-up with the [facility] to discuss flap surgery on 05 June. Increased protein intake. Lower loss air mattress, gel cushion for sitting. Reposition often. His questions were answered and he was advised to call with any further questions or concerns. Follow-up in 1 week. This note was generated with [employer] dictation software. It may contain incorrect words, spelling, and punctuation that were not noted in checking the note before signing.
[2018-05-31 11:31] VITALS: BP 127/52; PULSE 68; RESP 16; TEMP 36.6; BMI 27.8
--- NOTE | 2018-05-31 12:23 | PCM.WC.PN ---
(1) Right ischial pressure sore, stage 4 Status: Chronic Current Visit: Yes Code(s): L89.314 - Pressure ulcer of right buttock, stage 4 (2) Soft tissue radionecrosis Status: Chronic Current Visit: No Code(s): L59.8 - Other specified disorders of the skin and subcutaneous tissue related to radiation; Y84.2 - Radiological procedure and radiotherapy as the cause of abnormal reaction of the patient, or of later complication, without mention of misadventure at the time of the procedure (3) Skin ulcer of elbow with fat layer exposed Status: Acute Current Visit: Yes Code(s): L98.492 - Non-pressure chronic ulcer of skin of other sites with fat layer exposed Type of Wound Chief Complaint: Nonhealing radiation pressure ulcer. History of Wound: Mr Rincon is a 63 yo very well known to the wound center and up to a couple of weeks ago, was following up with Dr. Mesa for his chronic right buttock stage IV ulcer. He also had sessions of HBO. He however was referred to a tertiary center due to concerns for osteomyelitis. He is status post surgical debridement and chronic antibiotics at the [facility]. He has done well since then. He returns here for continued wound care. He denies any concerns at this time. It appears he has been having a wet-to-dry dressing at his nursing facility. He denies any significant discharge from the wound. His VAC was discontinued. He denies chills, fever or feeling of unwell. Plan per patient is for a possible flap closure. Progress of Wound: Has noted increased tenderness of move around both ulcers mostly around the elbow. He also reports increased bruising around the buttock still has significant discharge from the buttock area. - Physical Exam Vital Signs Temp Pulse Resp BP 98 F 68 16 127/52 H 05/31/18 11:31 05/31/18 11:31 05/31/18 11:31 05/31/18 11:31 General: Alert, Oriented x3, Cooperative, No apparent distress HEENT: Atraumatic, Normocephalic Oral: Moist Mucosa Neck: Supple Lungs: Normal air movement Extremities: No cyanosis Skin: Ulcer/ Wound Wound Measurements and Assessment WC - Nurse 1 - General Ulcer Measurement Start: 05/17/18 10:05 Freq: Status: Active Protocol: Activity Type Activity Date Activity User E-Sign Co-Sign Detail Recorded Client Recorded Date Recorded By Document 05/31/18 11:31 [facility] [id number] 05/31/18 11:43 [facility] 05/31/18 11:31 Wound Center Nurse 1 [Ulcer Assessment] #3- RT ELBOW -Combined with other wound No -Current Size (cm) - Length 0.2 -Current Size (cm) - Width 0.3 -Current Size (cm) - Depth 0.2 -Total Square Cm 0.06 -Photo Taken No -Epithelialization None Present -Tunneling No -Undermining/Tunneling Yes -Undermining/Tunneling Starts (O' 12 clock) -Undermining/Tunneling Ends (O'clock) 12 -Maximum Distance (cm) 0.6 -Circular Undermining Yes -Exudate Amt Small -Exudate Type Serosanguineous -Wound Margin Distinct, Outline Attached -Granulation Amt Large (67-100%) -Granulation Quality [place] -Slough/Fibrin No -Necrosis Amt None Present (0 %) -Texture (Nathalie-wound Skin Appearance) Localized Edema -Moisture (Nathalie-wound Skin Appearance Assessed ) -Color (Nathalie-wound Skin Appearance) Erythema -Temperature (Nathalie-wound Skin No Abnormality Appearance) (Pt Warm) -Tenderness on Palpation (Nathalie-wound Yes Skin Appearance) -Ulcer Cleansing Rinsed/ Irrigated with Saline -Foul Odor after Cleansing No -Anesthetic Used 4% Lidocaine Solution 2. R Ischial -Combined with other wound No -Current Size (cm) - Length 6 -Current Size (cm) - Width 2.9 -Current Size (cm) - Depth 0.5 -Total Square Cm 17.4 -Photo Taken No -Epithelialization None Present -Tunneling No -Undermining/Tunneling Yes -Undermining/Tunneling Starts (O' 12 clock) -Undermining/Tunneling Ends (O'clock) 2 -Maximum Distance (cm) 1.5 -Circular Undermining No -Exudate Amt Small -Exudate Type Serosanguineous -Wound Margin Thickened -Granulation Amt Small (1-33%) -Granulation Quality [place] -Slough/Fibrin Yes -Necrosis Amt Large (67-100%) -Necrotic Tissue Type Adherent Slough -Structure Exposed Bone -Texture (Nathalie-wound Skin Appearance) Assessed Scarring -Moisture (Nathalie-wound Skin Appearance Assessed ) -Color (Nathalie-wound Skin Appearance) Assessed Erythema -Temperature (Nathalie-wound Skin No Abnormality Appearance) (Pt Warm) -Tenderness on Palpation (Nathalie-wound No Skin Appearance) -Ulcer Cleansing Rinsed/ Irrigated with Saline -Foul Odor after Cleansing No -Anesthetic Used 4% Lidocaine Solution WC - Nurse 2 - General Ulcer CM Notes Start: 05/17/18 10:05 Freq: Status: Active Protocol: Activity Type Activity Date Activity User E-Sign Co-Sign Detail Recorded Client Recorded Date Recorded By Document 05/31/18 11:57 MW [id number] 05/31/18 12:08 MW 05/31/18 11:57 Wound Center Nurse 2 [Procedure/Treatment] #3- RT ELBOW -Time 11:58 -Correct Patient Yes -Correct Side, Site, Position Yes -Correct Procedure Yes -Procedure Performed Yes -Type of Procedure Debridement -Clinical Debridement Subcutaneous -Post Debridement Size (cm) - Length 0.3 -Post Debridement Size (cm) - Width 0.3 -Post Debridement Size (cm) - Depth 0.1 -Total Square Cm 0.09 -Wound/Ulcer Outcome Not Healed -Ulcer Cleansing Rinsed/ Irrigated with Saline -Foul Odor after Cleansing No -Bioengineered Tissue No -Bleeding Controlled with Pressure -Offloading No -Treatment Response Procedure Tolerated Well 2. R Ischial -Time 11:58 -Correct Patient Yes -Correct Side, Site, Position Yes -Correct Procedure Yes -Procedure Performed Yes -Type of Procedure Debridement -Clinical Debridement Subcutaneous -Post Debridement Size (cm) - Length 5.0 -Post Debridement Size (cm) - Width 2.8 -Post Debridement Size (cm) - Depth 1.5 -Total Square Cm 14.00 -Wound/Ulcer Outcome Not Healed -Ulcer Cleansing Rinsed/ Irrigated with Saline -Foul Odor after Cleansing No -Bioengineered Tissue No -Bleeding Controlled with Pressure -Offloading No -Treatment Response Procedure Tolerated Well [See Physician Procedure note for Specifics] Pain Scale: 0-10 Numeric [Pain] -Is Patient Pain Free? Yes Musculoskeletal: No Muscle Wasting Neurological: Cranial nerves II-XII grossly intact Psych/Mental Status: Normal Affect Debridement Note Post-Debridement Measurements/Treatment WC - Nurse 2 - General Ulcer CM Notes Start: 05/17/18 10:05 Freq: Status: Active Protocol: Activity Type Activity Date Activity User E-Sign Co-Sign Detail Recorded Client Recorded Date Recorded By Document 05/17/18 11:03 MW [id number] 05/17/18 11:07 MW Document 05/24/18 10:51 MW [id number] 05/24/18 11:00 MW Document 05/31/18 11:57 MW [id number] 05/31/18 12:08 MW 05/17/18 05/24/18 05/31/18 11:03 10:51 11:57 Wound Center Nurse 2 #3- RT ELBOW -Time 10:52 11:58 -Correct Patient Yes Yes -Correct Side, Site, Position Yes Yes -Correct Procedure Yes Yes -Procedure Performed Yes Yes -Type of Procedure Debridement Debridement -Clinical Debridement Subcutaneous Subcutaneous -Post Debridement Size (cm) - Length 0.4 0.3 -Post Debridement Size (cm) - Width 0.4 0.3 -Post Debridement Size (cm) - Depth 0.1 0.1 -Total Square Cm 0.16 0.09 -Wound/Ulcer Outcome Not Healed Not Healed -Ulcer Cleansing Rinsed/ Rinsed/ Irrigated with Irrigated with Saline Saline -Foul Odor after Cleansing No No -Bioengineered Tissue No No -Bleeding Controlled with Pressure Pressure -Other CIRCULAR UNDERMINING -Offloading No No -Treatment Response Procedure Procedure Tolerated Well Tolerated Well 2. R Ischial -Time 11:03 10:52 11:58 -Correct Patient Yes Yes Yes -Correct Side, Site, Position Yes Yes Yes -Correct Procedure Yes Yes Yes -Procedure Performed Yes Yes Yes -Type of Procedure Debridement Debridement Debridement -Clinical Debridement Subcutaneous Subcutaneous Subcutaneous -Post Debridement Size (cm) - Length 4.5 4.5 5.0 -Post Debridement Size (cm) - Width 3.3 3.5 2.8 -Post Debridement Size (cm) - Depth 1.0 1.5 1.5 -Total Square Cm 14.85 15.75 14.00 -Wound/Ulcer Outcome Not Healed Not Healed Not Healed -Ulcer Cleansing Rinsed/ Rinsed/ Rinsed/ Irrigated with Irrigated with Irrigated with Saline Saline Saline -Foul Odor after Cleansing No No No -Bioengineered Tissue No No No -Bleeding Controlled with Pressure Pressure Pressure -Other UNDERMINING 11- 3 - 2.0CM -Offloading No No No -Treatment Response Procedure Procedure Procedure Tolerated Well Tolerated Well Tolerated Well Pain Scale: 0-10 Numeric Is Patient Pain Free? Yes Yes Yes Wound debrided: Right elbow Wound Grade/Stage: Stage II Type of Debridement: Excisional debridement Anesthesia Used: 4% Lidocaine Solution Depth: Down to and including healthy tissue, in the subcutaneous layer Percentage of wound debrided: 100 Instrument Used: 3mm curette Tissue Removed: Slough and devitalized tissue Severity: Fat Layer Exposed Amount of bleeding with debridement: Mild Bleeding Controlled with: Pressure Patient tolerated procedure well - Additional Wound Wound debrided: Right buttock Wound Grade/Stage: Stage IV Type of Debridement: Excisional debridement Anesthesia Used: 4% Lidocaine Solution Depth: Down to and including healthy tissue, in the subcutaneous layer Percentage of wound debrided: 100 Instrument Used: 5mm curette Tissue Removed: Slough and devitalized tissue Severity: Fat Layer Exposed Amount of bleeding with debridement: Mild Bleeding Controlled with: Pressure Patient tolerated procedure: Patient tolerated procedure well Assessment/Plan Active Problems Skin ulcer of elbow with fat layer exposed (Acute) Right ischial pressure sore, stage 4 (Chronic) Assessment: Nonhealing right buttock pressure ulcer, stage IV. Osteomyelitis right pelvic region status post surgical debridement and chronic antibiotic. Right elbow ulcer. Plan: Debridement done as documented above. Procedure was well-tolerated. Continue Aquacel extra with Adaptic over top for now to right buttock and iodoform packing to right elbow. Increased tenderness and erythema of right elbow. Will start on Augmentin and Bactrim for possible cellulitis. Scheduled to follow-up with the [facility] to discuss flap surgery on 05 June. Continue increased protein intake. [place] loss air mattress, gel cushion for sitting. Reposition often. His questions were answered and he was advised to call with any further questions or concerns. Follow-up in 1 week. This note was generated with [employer] dictation software. It may contain incorrect words, spelling, and punctuation that were not noted in checking the note before signing.
--- NOTE | 2018-05-31 12:28 | PN.PCM_ITS ---
(1) Right ischial pressure sore, stage 4 Status: Chronic Current Visit: Yes Code(s): L89.314 - Pressure ulcer of right buttock, stage 4 (2) Soft tissue radionecrosis Status: Chronic Current Visit: No Code(s): L59.8 - Other specified disorders of the skin and subcutaneous tissue related to radiation; Y84.2 - Radiological procedure and radiotherapy as the cause of abnormal reaction of the patient, or of later complication, without mention of misadventure at the time of the procedure (3) Skin ulcer of elbow with fat layer exposed Status: Acute Current Visit: Yes Code(s): L98.492 - Non-pressure chronic ulcer of skin of other sites with fat layer exposed Type of Wound Chief Complaint: Nonhealing radiation pressure ulcer. History of Wound: Mr Rincon is a 63 yo very well known to the wound center and up to a couple of weeks ago, was following up with Dr. Mesa for his chronic right buttock stage IV ulcer. He also had sessions of HBO. He however was referred to a tertiary center due to concerns for osteomyelitis. He is status post surgical debridement and chronic antibiotics at the [facility]. He has done well since then. He returns here for continued wound care. He denies any concerns at this time. It appears he has been having a wet-to-dry dressing at his nursing facility. He denies any significant discharge from the wound. His VAC was discontinued. He denies chills, fever or feeling of unwell. Plan per patient is for a possible flap closure. Progress of Wound: Has noted increased tenderness of move around both ulcers mostly around the elbow. He also reports increased bruising around the buttock still has significant discharge from the buttock area. - Physical Exam Vital Signs Temp Pulse Resp BP 98 F 68 16 127/52 H 05/31/18 11:31 05/31/18 11:31 05/31/18 11:31 05/31/18 11:31 General: Alert, Oriented x3, Cooperative, No apparent distress HEENT: Atraumatic, Normocephalic Oral: Moist Mucosa Neck: Supple Lungs: Normal air movement Extremities: No cyanosis Skin: Ulcer/ Wound Wound Measurements and Assessment WC - Nurse 1 - General Ulcer Measurement Start: 05/17/18 10:05 Freq: Status: Active Protocol: Activity Type Activity Date Activity User E-Sign Co-Sign Detail Recorded Client Recorded Date Recorded By Document 05/31/18 11:31 [facility] [id number] 05/31/18 11:43 [facility] 05/31/18 11:31 Wound Center Nurse 1 [Ulcer Assessment] #3- RT ELBOW -Combined with other wound No -Current Size (cm) - Length 0.2 -Current Size (cm) - Width 0.3 -Current Size (cm) - Depth 0.2 -Total Square Cm 0.06 -Photo Taken No -Epithelialization None Present -Tunneling No -Undermining/Tunneling Yes -Undermining/Tunneling Starts (O' 12 clock) -Undermining/Tunneling Ends (O'clock) 12 -Maximum Distance (cm) 0.6 -Circular Undermining Yes -Exudate Amt Small -Exudate Type Serosanguineous -Wound Margin Distinct, Outline Attached -Granulation Amt Large (67-100%) -Granulation Quality Red -Slough/Fibrin No -Necrosis Amt None Present (0 %) -Texture (Nathalie-wound Skin Appearance) Localized Edema -Moisture (Nathalie-wound Skin Appearance Assessed ) -Color (Nathalie-wound Skin Appearance) Erythema -Temperature (Nathalie-wound Skin No Abnormality Appearance) (Pt Warm) -Tenderness on Palpation (Nathalie-wound Yes Skin Appearance) -Ulcer Cleansing Rinsed/ Irrigated with Saline -Foul Odor after Cleansing No -Anesthetic Used 4% Lidocaine Solution 2. R Ischial -Combined with other wound No -Current Size (cm) - Length 6 -Current Size (cm) - Width 2.9 -Current Size (cm) - Depth 0.5 -Total Square Cm 17.4 -Photo Taken No -Epithelialization None Present -Tunneling No -Undermining/Tunneling Yes -Undermining/Tunneling Starts (O' 12 clock) -Undermining/Tunneling Ends (O'clock) 2 -Maximum Distance (cm) 1.5 -Circular Undermining No -Exudate Amt Small -Exudate Type Serosanguineous -Wound Margin Thickened -Granulation Amt Small (1-33%) -Granulation Quality [place] -Slough/Fibrin Yes -Necrosis Amt Large (67-100%) -Necrotic Tissue Type Adherent Slough -Structure Exposed Bone -Texture (Nathalie-wound Skin Appearance) Assessed Scarring -Moisture (Nathalie-wound Skin Appearance Assessed ) -Color (Nathalie-wound Skin Appearance) Assessed Erythema -Temperature (Nathalie-wound Skin No Abnormality Appearance) (Pt Warm) -Tenderness on Palpation (Nathalie-wound No Skin Appearance) -Ulcer Cleansing Rinsed/ Irrigated with Saline -Foul Odor after Cleansing No -Anesthetic Used 4% Lidocaine Solution WC - Nurse 2 - General Ulcer CM Notes Start: 05/17/18 10:05 Freq: Status: Active Protocol: Activity Type Activity Date Activity User E-Sign Co-Sign Detail Recorded Client Recorded Date Recorded By Document 05/31/18 11:57 MW [id number] 05/31/18 12:08 MW 05/31/18 11:57 Wound Center Nurse 2 [Procedure/Treatment] #3- RT ELBOW -Time 11:58 -Correct Patient Yes -Correct Side, Site, Position Yes -Correct Procedure Yes -Procedure Performed Yes -Type of Procedure Debridement -Clinical Debridement Subcutaneous -Post Debridement Size (cm) - Length 0.3 -Post Debridement Size (cm) - Width 0.3 -Post Debridement Size (cm) - Depth 0.1 -Total Square Cm 0.09 -Wound/Ulcer Outcome Not Healed -Ulcer Cleansing Rinsed/ Irrigated with Saline -Foul Odor after Cleansing No -Bioengineered Tissue No -Bleeding Controlled with Pressure -Offloading No -Treatment Response Procedure Tolerated Well 2. R Ischial -Time 11:58 -Correct Patient Yes -Correct Side, Site, Position Yes -Correct Procedure Yes -Procedure Performed Yes -Type of Procedure Debridement -Clinical Debridement Subcutaneous -Post Debridement Size (cm) - Length 5.0 -Post Debridement Size (cm) - Width 2.8 -Post Debridement Size (cm) - Depth 1.5 -Total Square Cm 14.00 -Wound/Ulcer Outcome Not Healed -Ulcer Cleansing Rinsed/ Irrigated with Saline -Foul Odor after Cleansing No -Bioengineered Tissue No -Bleeding Controlled with Pressure -Offloading No -Treatment Response Procedure Tolerated Well [See Physician Procedure note for Specifics] Pain Scale: 0-10 Numeric [Pain] -Is Patient Pain Free? Yes Musculoskeletal: No Muscle Wasting Neurological: Cranial nerves II-XII grossly intact Psych/Mental Status: Normal Affect Debridement Note Post-Debridement Measurements/Treatment WC - Nurse 2 - General Ulcer CM Notes Start: 05/17/18 10:05 Freq: Status: Active Protocol: Activity Type Activity Date Activity User E-Sign Co-Sign Detail Recorded Client Recorded Date Recorded By Document 05/17/18 11:03 MW [id number] 05/17/18 11:07 MW Document 05/24/18 10:51 MW [id number] 05/24/18 11:00 MW Document 05/31/18 11:57 MW [id number] 05/31/18 12:08 MW 05/17/18 05/24/18 05/31/18 11:03 10:51 11:57 Wound Center Nurse 2 #3- RT ELBOW -Time 10:52 11:58 -Correct Patient Yes Yes -Correct Side, Site, Position Yes Yes -Correct Procedure Yes Yes -Procedure Performed Yes Yes -Type of Procedure Debridement Debridement -Clinical Debridement Subcutaneous Subcutaneous -Post Debridement Size (cm) - Length 0.4 0.3 -Post Debridement Size (cm) - Width 0.4 0.3 -Post Debridement Size (cm) - Depth 0.1 0.1 -Total Square Cm 0.16 0.09 -Wound/Ulcer Outcome Not Healed Not Healed -Ulcer Cleansing Rinsed/ Rinsed/ Irrigated with Irrigated with Saline Saline -Foul Odor after Cleansing No No -Bioengineered Tissue No No -Bleeding Controlled with Pressure Pressure -Other CIRCULAR UNDERMINING -Offloading No No -Treatment Response Procedure Procedure Tolerated Well Tolerated Well 2. R Ischial -Time 11:03 10:52 11:58 -Correct Patient Yes Yes Yes -Correct Side, Site, Position Yes Yes Yes -Correct Procedure Yes Yes Yes -Procedure Performed Yes Yes Yes -Type of Procedure Debridement Debridement Debridement -Clinical Debridement Subcutaneous Subcutaneous Subcutaneous -Post Debridement Size (cm) - Length 4.5 4.5 5.0 -Post Debridement Size (cm) - Width 3.3 3.5 2.8 -Post Debridement Size (cm) - Depth 1.0 1.5 1.5 -Total Square Cm 14.85 15.75 14.00 -Wound/Ulcer Outcome Not Healed Not Healed Not Healed -Ulcer Cleansing Rinsed/ Rinsed/ Rinsed/ Irrigated with Irrigated with Irrigated with Saline Saline Saline -Foul Odor after Cleansing No No No -Bioengineered Tissue No No No -Bleeding Controlled with Pressure Pressure Pressure -Other UNDERMINING 11- 3 - 2.0CM -Offloading No No No -Treatment Response Procedure Procedure Procedure Tolerated Well Tolerated Well Tolerated Well Pain Scale: 0-10 Numeric Is Patient Pain Free? Yes Yes Yes Wound debrided: Right elbow Wound Grade/Stage: Stage II Type of Debridement: Excisional debridement Anesthesia Used: 4% Lidocaine Solution Depth: Down to and including healthy tissue, in the subcutaneous layer Percentage of wound debrided: 100 Instrument Used: 3mm curette Tissue Removed: Slough and devitalized tissue Severity: Fat Layer Exposed Amount of bleeding with debridement: Mild Bleeding Controlled with: Pressure Patient tolerated procedure well - Additional Wound Wound debrided: Right buttock Wound Grade/Stage: Stage IV Type of Debridement: Excisional debridement Anesthesia Used: 4% Lidocaine Solution Depth: Down to and including healthy tissue, in the subcutaneous layer Percentage of wound debrided: 100 Instrument Used: 5mm curette Tissue Removed: Slough and devitalized tissue Severity: Fat Layer Exposed Amount of bleeding with debridement: Mild Bleeding Controlled with: Pressure Patient tolerated procedure: Patient tolerated procedure well Assessment/Plan Active Problems Skin ulcer of elbow with fat layer exposed (Acute) Right ischial pressure sore, stage 4 (Chronic) Assessment: Nonhealing right buttock pressure ulcer, stage IV. Osteomyelitis right pelvic region status post surgical debridement and chronic antibiotic. Right elbow ulcer. Plan: Debridement done as documented above. Procedure was well-tolerated. Continue Aquacel extra with Adaptic over top for now to right buttock and iodoform packing to right elbow. Increased tenderness and erythema of right elbow. Will start on Augmentin and Bactrim for possible cellulitis. Scheduled to follow-up with the [facility] to discuss flap surgery on 05 June. Continue increased protein intake. Lowe loss air mattress, gel cushion for sitting. Reposition often. His questions were answered and he was advised to call with any further questions or concerns. Follow-up in 1 week. This note was generated with [employer] dictation software. It may contain incorrect words, spelling, and punctuation that were not noted in checking the note before signing.
[2018-06-07 10:33] VITALS: BP 121/62; PULSE 63; RESP 16; TEMP 36.4; BMI 27.8
--- NOTE | 2018-06-07 12:02 | PCM.WC.PN ---
(1) Right ischial pressure sore, stage 4 Status: Chronic Current Visit: Yes Code(s): L89.314 - Pressure ulcer of right buttock, stage 4 (2) Soft tissue radionecrosis Status: Chronic Current Visit: No Code(s): L59.8 - Other specified disorders of the skin and subcutaneous tissue related to radiation; Y84.2 - Radiological procedure and radiotherapy as the cause of abnormal reaction of the patient, or of later complication, without mention of misadventure at the time of the procedure (3) Skin ulcer of elbow with fat layer exposed Status: Acute Current Visit: Yes Code(s): L98.492 - Non-pressure chronic ulcer of skin of other sites with fat layer exposed (4) Decubitus ulcer of left heel, stage 2 Status: Acute Current Visit: Yes Code(s): L89.622 - Pressure ulcer of left heel, stage 2 Type of Wound Chief Complaint: Nonhealing radiation pressure ulcer. History of Wound: Mr Rincon is a 63 yo very well known to the wound center and up to a couple of weeks ago, was following up with Dr. Mesa for his chronic right buttock stage IV ulcer. He also had sessions of HBO. He however was referred to a tertiary center due to concerns for osteomyelitis. He is status post surgical debridement and chronic antibiotics at the [facility]. He has done well since then. He returns here for continued wound care. He denies any concerns at this time. It appears he has been having a wet-to-dry dressing at his nursing facility. He denies any significant discharge from the wound. His VAC was discontinued. He denies chills, fever or feeling of unwell. Plan per patient is for a possible flap closure. Progress of Wound: Right elbow said to be better today. No significant drainage. New left heel. Initially a blister with necrosis of skin and superficial ulceration underneath. - Physical Exam Vital Signs Temp Pulse Resp BP 97.5 F L 63 16 121/62 H 06/07/18 10:33 06/07/18 10:33 06/07/18 10:33 06/07/18 10:33 General: Alert, Oriented x3, Cooperative, No apparent distress HEENT: Atraumatic, Normocephalic Oral: Moist Mucosa Neck: Supple Lungs: Normal air movement Extremities: No cyanosis Skin: Ulcer/ Wound Wound Measurements and Assessment WC - Nurse 1 - General Ulcer Measurement Start: 05/17/18 10:05 Freq: Status: Active Protocol: Activity Type Activity Date Activity User E-Sign Co-Sign Detail Recorded Client Recorded Date Recorded By Document 06/07/18 10:33 [facility] [id number] 06/07/18 10:43 [facility] 06/07/18 10:33 Wound Center Nurse 1 [Ulcer Assessment] #3- RT ELBOW -Combined with other wound No -Current Size (cm) - Length 0.2 -Current Size (cm) - Width 0.2 -Current Size (cm) - Depth 0.4 -Total Square Cm 0.04 -Photo Taken No -Epithelialization None Present -Tunneling No -Undermining/Tunneling No -Circular Undermining Yes -Exudate Amt Small -Exudate Type Serosanguineous -Wound Margin Distinct, Outline Attached -Granulation Amt Large (67-100%) -Granulation Quality Red -Slough/Fibrin Yes -Necrosis Amt None Present (0 %) -Structure Exposed N/A -Texture (Nathalie-wound Skin Appearance) Assessed Localized Edema Scarring -Moisture (Nathalie-wound Skin Appearance No Abnormality ) Assessed -Color (Nathalie-wound Skin Appearance) Assessed Rubor -Temperature (Nathalie-wound Skin No Abnormality Appearance) (Pt Warm) -Tenderness on Palpation (Nathalie-wound No Skin Appearance) -Ulcer Cleansing Rinsed/ Irrigated with Saline -Foul Odor after Cleansing No -Anesthetic Used 4% Lidocaine Solution 2. R Ischial -Combined with other wound No -Current Size (cm) - Length 6.5 -Current Size (cm) - Width 3.1 -Current Size (cm) - Depth 0.4 -Total Square Cm 20.15 -Photo Taken No -Tunneling No -Undermining/Tunneling Yes -Undermining/Tunneling Starts (O' 12 clock) -Undermining/Tunneling Ends (O'clock) 3 -Maximum Distance (cm) 1.9 -Circular Undermining No -Exudate Amt Small -Exudate Type Serosanguineous -Wound Margin Thickened & Rolled Under -Granulation Amt Medium (34-66%) -Granulation Quality [place] -Slough/Fibrin Yes -Necrosis Amt Medium (34-66%) -Necrotic Tissue Type Adherent Slough -Structure Exposed N/A -Texture (Nathalie-wound Skin Appearance) Assessed Scarring -Moisture (Nathalie-wound Skin Appearance Assessed ) Maceration -Color (Nathalie-wound Skin Appearance) No Abnormality Assessed -Temperature (Nathaile-wound Skin No Abnormality Appearance) (Pt Warm) -Tenderness on Palpation (Nathalie-wound No Skin Appearance) -Ulcer Cleansing SOAP AND WATER -Anesthetic Used 4% Lidocaine Solution [Edema Assessment] -Lower Limb Edema Present No WC - Nurse 2 - General Ulcer CM Notes Start: 05/17/18 10:05 Freq: Status: Active Protocol: Activity Type Activity Date Activity User E-Sign Co-Sign Detail Recorded Client Recorded Date Recorded By Document 06/07/18 10:47 MW [id number] 06/07/18 11:04 MW 06/07/18 10:47 Wound Center Nurse 2 [Procedure/Treatment] #4 LEFT HEEL -Time 10:52 -Correct Patient Yes -Correct Side, Site, Position Yes -Correct Procedure Yes -Procedure Performed Yes -Type of Procedure Debridement -Clinical Debridement Selective -Post Debridement Size (cm) - Length 3.5 -Post Debridement Size (cm) - Width 4.0 -Post Debridement Size (cm) - Depth 0.1 -Total Square Cm 14.00 -Wound/Ulcer Outcome Not Healed -Ulcer Cleansing Rinsed/ Irrigated with Saline -Foul Odor after Cleansing No -Bioengineered Tissue No -Bleeding Controlled with Pressure -Offloading No -Treatment Response Procedure Tolerated Well #3- RT ELBOW -Time 10:53 -Correct Patient Yes -Correct Side, Site, Position Yes -Correct Procedure Yes -Procedure Performed Yes -Type of Procedure Debridement -Clinical Debridement Subcutaneous -Post Debridement Size (cm) - Length 0.3 -Post Debridement Size (cm) - Width 0.2 -Post Debridement Size (cm) - Depth 0.1 -Total Square Cm 0.06 -Wound/Ulcer Outcome Not Healed -Ulcer Cleansing Rinsed/ Irrigated with Saline -Foul Odor after Cleansing No -Bioengineered Tissue No -Bleeding Controlled with Pressure -Offloading No -Treatment Response Procedure Tolerated Well 2. R Ischial -Time 10:53 -Correct Patient Yes -Correct Side, Site, Position Yes -Correct Procedure Yes -Procedure Performed Yes -Type of Procedure Debridement -Clinical Debridement Subcutaneous -Post Debridement Size (cm) - Length 6.0 -Post Debridement Size (cm) - Width 3.0 -Post Debridement Size (cm) - Depth 1.2 -Total Square Cm 18.00 -Wound/Ulcer Outcome Not Healed -Ulcer Cleansing Rinsed/ Irrigated with Saline -Foul Odor after Cleansing No -Bioengineered Tissue No -Bleeding Controlled with Pressure -Other undermining 12- 2, 2.0cm -Offloading No -Treatment Response Procedure Tolerated Well [See Physician Procedure note for Specifics] Pain Scale: 0-10 Numeric [Pain] -Is Patient Pain Free? Yes Musculoskeletal: No Muscle Wasting Neurological: Cranial nerves II-XII grossly intact Psych/Mental Status: Normal Affect Debridement Note Post-Debridement Measurements/Treatment WC - Nurse 2 - General Ulcer CM Notes Start: 05/17/18 10:05 Freq: Status: Active Protocol: Activity Type Activity Date Activity User E-Sign Co-Sign Detail Recorded Client Recorded Date Recorded By Document 05/17/18 11:03 MW [id number] 05/17/18 11:07 MW Document 05/24/18 10:51 MW [id number] 05/24/18 11:00 MW Document 05/31/18 11:57 MW [id number] 05/31/18 12:08 MW Document 06/07/18 10:47 MW [id number] 06/07/18 11:04 MW 05/17/18 05/24/18 05/31/18 11:03 10:51 11:57 Wound Center Nurse 2 #4 LEFT HEEL -Time -Correct Patient -Correct Side, Site, Position -Correct Procedure -Procedure Performed -Type of Procedure -Clinical Debridement -Post Debridement Size (cm) - Length -Post Debridement Size (cm) - Width -Post Debridement Size (cm) - Depth -Total Square Cm -Wound/Ulcer Outcome -Ulcer Cleansing -Foul Odor after Cleansing -Bioengineered Tissue -Bleeding Controlled with -Offloading -Treatment Response #3- RT ELBOW -Time 10:52 11:58 -Correct Patient Yes Yes -Correct Side, Site, Position Yes Yes -Correct Procedure Yes Yes -Procedure Performed Yes Yes -Type of Procedure Debridement Debridement -Clinical Debridement Subcutaneous Subcutaneous -Post Debridement Size (cm) - Length 0.4 0.3 -Post Debridement Size (cm) - Width 0.4 0.3 -Post Debridement Size (cm) - Depth 0.1 0.1 -Total Square Cm 0.16 0.09 -Wound/Ulcer Outcome Not Healed Not Healed -Ulcer Cleansing Rinsed/ Rinsed/ Irrigated with Irrigated with Saline Saline -Foul Odor after Cleansing No No -Bioengineered Tissue No No -Bleeding Controlled with Pressure Pressure -Other CIRCULAR UNDERMINING -Offloading No No -Treatment Response Procedure Procedure Tolerated Well Tolerated Well 2. R Ischial -Time 11:03 10:52 11:58 -Correct Patient Yes Yes Yes -Correct Side, Site, Position Yes Yes Yes -Correct Procedure Yes Yes Yes -Procedure Performed Yes Yes Yes -Type of Procedure Debridement Debridement Debridement -Clinical Debridement Subcutaneous Subcutaneous Subcutaneous -Post Debridement Size (cm) - Length 4.5 4.5 5.0 -Post Debridement Size (cm) - Width 3.3 3.5 2.8 -Post Debridement Size (cm) - Depth 1.0 1.5 1.5 -Total Square Cm 14.85 15.75 14.00 -Wound/Ulcer Outcome Not Healed Not Healed Not Healed -Ulcer Cleansing Rinsed/ Rinsed/ Rinsed/ Irrigated with Irrigated with Irrigated with Saline Saline Saline -Foul Odor after Cleansing No No No -Bioengineered Tissue No No No -Bleeding Controlled with Pressure Pressure Pressure -Other UNDERMINING 11- 3 - 2.0CM -Offloading No No No -Treatment Response Procedure Procedure Procedure Tolerated Well Tolerated Well Tolerated Well Pain Scale: 0-10 Numeric Is Patient Pain Free? Yes Yes Yes 06/07/18 10:47 Wound Center Nurse 2 #4 LEFT HEEL -Time 10:52 -Correct Patient Yes -Correct Side, Site, Position Yes -Correct Procedure Yes -Procedure Performed Yes -Type of Procedure Debridement -Clinical Debridement Selective -Post Debridement Size (cm) - Length 3.5 -Post Debridement Size (cm) - Width 4.0 -Post Debridement Size (cm) - Depth 0.1 -Total Square Cm 14.00 -Wound/Ulcer Outcome Not Healed -Ulcer Cleansing Rinsed/ Irrigated with Saline -Foul Odor after Cleansing No -Bioengineered Tissue No -Bleeding Controlled with Pressure -Offloading No -Treatment Response Procedure Tolerated Well #3- RT ELBOW -Time 10:53 -Correct Patient Yes -Correct Side, Site, Position Yes -Correct Procedure Yes -Procedure Performed Yes -Type of Procedure Debridement -Clinical Debridement Subcutaneous -Post Debridement Size (cm) - Length 0.3 -Post Debridement Size (cm) - Width 0.2 -Post Debridement Size (cm) - Depth 0.1 -Total Square Cm 0.06 -Wound/Ulcer Outcome Not Healed -Ulcer Cleansing Rinsed/ Irrigated with Saline -Foul Odor after Cleansing No -Bioengineered Tissue No -Bleeding Controlled with Pressure -Other -Offloading No -Treatment Response Procedure Tolerated Well 2. R Ischial -Time 10:53 -Correct Patient Yes -Correct Side, Site, Position Yes -Correct Procedure Yes -Procedure Performed Yes -Type of Procedure Debridement -Clinical Debridement Subcutaneous -Post Debridement Size (cm) - Length 6.0 -Post Debridement Size (cm) - Width 3.0 -Post Debridement Size (cm) - Depth 1.2 -Total Square Cm 18.00 -Wound/Ulcer Outcome Not Healed -Ulcer Cleansing Rinsed/ Irrigated with Saline -Foul Odor after Cleansing No -Bioengineered Tissue No -Bleeding Controlled with Pressure -Other undermining 12- 2, 2.0cm -Offloading No -Treatment Response Procedure Tolerated Well Pain Scale: 0-10 Numeric Is Patient Pain Free? Yes Wound debrided: Left heel Wound Grade/Stage: Stage II Type of Debridement: Selective debridement Anesthesia Used: 4% Lidocaine Solution Depth: Down to and including healthy tissue Percentage of wound debrided: 100 Instrument Used: #15 blade, Forceps Tissue Removed: Slough and devitalized tissue Severity: Limited To Skin Breakdown Amount of bleeding with debridement: Mild Bleeding Controlled with: Pressure Patient tolerated procedure well - Additional Wound Wound debrided: Right buttock Wound Grade/Stage: Stage IV Type of Debridement: Excisional debridement Anesthesia Used: 4% Lidocaine Solution Depth: Down to and including healthy tissue, in the subcutaneous layer Percentage of wound debrided: 100 Instrument Used: 7mm curette Tissue Removed: Slough and devitalized tissue Severity: Fat Layer Exposed Amount of bleeding with debridement: Mild Bleeding Controlled with: Pressure Patient tolerated procedure: Patient tolerated procedure well - Additional Wound Wound debrided: Right elbow Wound Grade/Stage: Stage II Type of Debridement: Excisional debridement Anesthesia Used: 4% Lidocaine Solution Depth: Down to and including healthy tissue, in the subcutaneous layer Percentage of wound debrided: 100 Instrument Used: - - 2 mm Tissue Removed: Slough and devitalized tissue Severity: Fat Layer Exposed Amount of bleeding with debridement: Mild Bleeding Controlled with: Pressure Patient tolerated procedure: Patient tolerated procedure well Assessment/Plan Active Problems Skin ulcer of elbow with fat layer exposed (Acute) Decubitus ulcer of left heel, stage 2 (Acute) Right ischial pressure sore, stage 4 (Chronic) Assessment: Nonhealing right buttock pressure ulcer, stage IV. Osteomyelitis right pelvic region status post surgical debridement and chronic antibiotic. Right elbow ulcer. Left heel decubitus ulcer. Stage II. Plan: Tenderness and increased drainage from right elbow have resolved. Has completed his course of antibiotic. New left heel ulcer. Initially blistered/deep tissue injury. Debridement done as documented above. Procedure was well-tolerated. Aquacel with Adaptic over top to all. Change daily to twice daily depending on drainage. He did follow-up at the [facility] and is scheduled to have an initial surgical debridement next Monday in anticipation for the wound flap/reconstructive surgery. Continue increased protein intake. Low loss air mattress, gel cushion for sitting. Reposition often. His questions were answered and he was advised to call with any further questions or concerns. Follow-up in 1 week. This note was generated with [employer] dictation software. It may contain incorrect words, spelling, and punctuation that were not noted in checking the note before signing.
--- NOTE | 2018-06-07 12:06 | PN.PCM_ITS ---
(1) Right ischial pressure sore, stage 4 Status: Chronic Current Visit: Yes Code(s): L89.314 - Pressure ulcer of right buttock, stage 4 (2) Soft tissue radionecrosis Status: Chronic Current Visit: No Code(s): L59.8 - Other specified disorders of the skin and subcutaneous tissue related to radiation; Y84.2 - Radiological procedure and radiotherapy as the cause of abnormal reaction of the patient, or of later complication, without mention of misadventure at the time of the procedure (3) Skin ulcer of elbow with fat layer exposed Status: Acute Current Visit: Yes Code(s): L98.492 - Non-pressure chronic ulcer of skin of other sites with fat layer exposed (4) Decubitus ulcer of left heel, stage 2 Status: Acute Current Visit: Yes Code(s): L89.622 - Pressure ulcer of left heel, stage 2 Type of Wound Chief Complaint: Nonhealing radiation pressure ulcer. History of Wound: Mr Rincon is a 63 yo very well known to the wound center and up to a couple of weeks ago, was following up with Dr. Mesa for his chronic right buttock stage IV ulcer. He also had sessions of HBO. He however was referred to a tertiary center due to concerns for osteomyelitis. He is status post surgical debridement and chronic antibiotics at the [facility]. He has done well since then. He returns here for continued wound care. He denies any concerns at this time. It appears he has been having a wet-to-dry dressing at his nursing facility. He denies any significant discharge from the wound. His VAC was discontinued. He denies chills, fever or feeling of unwell. Plan per patient is for a possible flap closure. Progress of Wound: Right elbow said to be better today. No significant drainage. New left heel. Initially a blister with necrosis of skin and superficial ulceration underneath. - Physical Exam Vital Signs Temp Pulse Resp BP 97.5 F L 63 16 121/62 H 06/07/18 10:33 06/07/18 10:33 06/07/18 10:33 06/07/18 10:33 General: Alert, Oriented x3, Cooperative, No apparent distress HEENT: Atraumatic, Normocephalic Oral: Moist Mucosa Neck: Supple Lungs: Normal air movement Extremities: No cyanosis Skin: Ulcer/ Wound Wound Measurements and Assessment WC - Nurse 1 - General Ulcer Measurement Start: 05/17/18 10:05 Freq: Status: Active Protocol: Activity Type Activity Date Activity User E-Sign Co-Sign Detail Recorded Client Recorded Date Recorded By Document 06/07/18 10:33 [facility] [id number] 06/07/18 10:43 [facility] 06/07/18 10:33 Wound Center Nurse 1 [Ulcer Assessment] #3- RT ELBOW -Combined with other wound No -Current Size (cm) - Length 0.2 -Current Size (cm) - Width 0.2 -Current Size (cm) - Depth 0.4 -Total Square Cm 0.04 -Photo Taken No -Epithelialization None Present -Tunneling No -Undermining/Tunneling No -Circular Undermining Yes -Exudate Amt Small -Exudate Type Serosanguineous -Wound Margin Distinct, Outline Attached -Granulation Amt Large (67-100%) -Granulation Quality Red -Slough/Fibrin Yes -Necrosis Amt None Present (0 %) -Structure Exposed N/A -Texture (Nathalie-wound Skin Appearance) Assessed Localized Edema Scarring -Moisture (Nathalie-wound Skin Appearance No Abnormality ) Assessed -Color (Nathalie-wound Skin Appearance) Assessed Rubor -Temperature (Nathalie-wound Skin No Abnormality Appearance) (Pt Warm) -Tenderness on Palpation (Nathalie-wound No Skin Appearance) -Ulcer Cleansing Rinsed/ Irrigated with Saline -Foul Odor after Cleansing No -Anesthetic Used 4% Lidocaine Solution 2. R Ischial -Combined with other wound No -Current Size (cm) - Length 6.5 -Current Size (cm) - Width 3.1 -Current Size (cm) - Depth 0.4 -Total Square Cm 20.15 -Photo Taken No -Tunneling No -Undermining/Tunneling Yes -Undermining/Tunneling Starts (O' 12 clock) -Undermining/Tunneling Ends (O'clock) 3 -Maximum Distance (cm) 1.9 -Circular Undermining No -Exudate Amt Small -Exudate Type Serosanguineous -Wound Margin Thickened & Rolled Under -Granulation Amt Medium (34-66%) -Granulation Quality Sholes -Slough/Fibrin Yes -Necrosis Amt Medium (34-66%) -Necrotic Tissue Type Adherent Slough -Structure Exposed N/A -Texture (Nathalie-wound Skin Appearance) Assessed Scarring -Moisture (Nathalie-wound Skin Appearance Assessed ) Maceration -Color (Nathalie-wound Skin Appearance) No Abnormality Assessed -Temperature (Nathalie-wound Skin No Abnormality Appearance) (Pt Warm) -Tenderness on Palpation (Nathalie-wound No Skin Appearance) -Ulcer Cleansing SOAP AND WATER -Anesthetic Used 4% Lidocaine Solution [Edema Assessment] -Lower Limb Edema Present No WC - Nurse 2 - General Ulcer CM Notes Start: 05/17/18 10:05 Freq: Status: Active Protocol: Activity Type Activity Date Activity User E-Sign Co-Sign Detail Recorded Client Recorded Date Recorded By Document 06/07/18 10:47 MW [id number] 06/07/18 11:04 MW 06/07/18 10:47 Wound Center Nurse 2 [Procedure/Treatment] #4 LEFT HEEL -Time 10:52 -Correct Patient Yes -Correct Side, Site, Position Yes -Correct Procedure Yes -Procedure Performed Yes -Type of Procedure Debridement -Clinical Debridement Selective -Post Debridement Size (cm) - Length 3.5 -Post Debridement Size (cm) - Width 4.0 -Post Debridement Size (cm) - Depth 0.1 -Total Square Cm 14.00 -Wound/Ulcer Outcome Not Healed -Ulcer Cleansing Rinsed/ Irrigated with Saline -Foul Odor after Cleansing No -Bioengineered Tissue No -Bleeding Controlled with Pressure -Offloading No -Treatment Response Procedure Tolerated Well #3- RT ELBOW -Time 10:53 -Correct Patient Yes -Correct Side, Site, Position Yes -Correct Procedure Yes -Procedure Performed Yes -Type of Procedure Debridement -Clinical Debridement Subcutaneous -Post Debridement Size (cm) - Length 0.3 -Post Debridement Size (cm) - Width 0.2 -Post Debridement Size (cm) - Depth 0.1 -Total Square Cm 0.06 -Wound/Ulcer Outcome Not Healed -Ulcer Cleansing Rinsed/ Irrigated with Saline -Foul Odor after Cleansing No -Bioengineered Tissue No -Bleeding Controlled with Pressure -Offloading No -Treatment Response Procedure Tolerated Well 2. R Ischial -Time 10:53 -Correct Patient Yes -Correct Side, Site, Position Yes -Correct Procedure Yes -Procedure Performed Yes -Type of Procedure Debridement -Clinical Debridement Subcutaneous -Post Debridement Size (cm) - Length 6.0 -Post Debridement Size (cm) - Width 3.0 -Post Debridement Size (cm) - Depth 1.2 -Total Square Cm 18.00 -Wound/Ulcer Outcome Not Healed -Ulcer Cleansing Rinsed/ Irrigated with Saline -Foul Odor after Cleansing No -Bioengineered Tissue No -Bleeding Controlled with Pressure -Other undermining 12- 2, 2.0cm -Offloading No -Treatment Response Procedure Tolerated Well [See Physician Procedure note for Specifics] Pain Scale: 0-10 Numeric [Pain] -Is Patient Pain Free? Yes Musculoskeletal: No Muscle Wasting Neurological: Cranial nerves II-XII grossly intact Psych/Mental Status: Normal Affect Debridement Note Post-Debridement Measurements/Treatment WC - Nurse 2 - General Ulcer CM Notes Start: 05/17/18 10:05 Freq: Status: Active Protocol: Activity Type Activity Date Activity User E-Sign Co-Sign Detail Recorded Client Recorded Date Recorded By Document 05/17/18 11:03 MW [id number] 05/17/18 11:07 MW Document 05/24/18 10:51 MW [id number] 05/24/18 11:00 MW Document 05/31/18 11:57 MW [id number] 05/31/18 12:08 MW Document 06/07/18 10:47 MW [id number] 06/07/18 11:04 MW 05/17/18 05/24/18 05/31/18 11:03 10:51 11:57 Wound Center Nurse 2 #4 LEFT HEEL -Time -Correct Patient -Correct Side, Site, Position -Correct Procedure -Procedure Performed -Type of Procedure -Clinical Debridement -Post Debridement Size (cm) - Length -Post Debridement Size (cm) - Width -Post Debridement Size (cm) - Depth -Total Square Cm -Wound/Ulcer Outcome -Ulcer Cleansing -Foul Odor after Cleansing -Bioengineered Tissue -Bleeding Controlled with -Offloading -Treatment Response #3- RT ELBOW -Time 10:52 11:58 -Correct Patient Yes Yes -Correct Side, Site, Position Yes Yes -Correct Procedure Yes Yes -Procedure Performed Yes Yes -Type of Procedure Debridement Debridement -Clinical Debridement Subcutaneous Subcutaneous -Post Debridement Size (cm) - Length 0.4 0.3 -Post Debridement Size (cm) - Width 0.4 0.3 -Post Debridement Size (cm) - Depth 0.1 0.1 -Total Square Cm 0.16 0.09 -Wound/Ulcer Outcome Not Healed Not Healed -Ulcer Cleansing Rinsed/ Rinsed/ Irrigated with Irrigated with Saline Saline -Foul Odor after Cleansing No No -Bioengineered Tissue No No -Bleeding Controlled with Pressure Pressure -Other CIRCULAR UNDERMINING -Offloading No No -Treatment Response Procedure Procedure Tolerated Well Tolerated Well 2. R Ischial -Time 11:03 10:52 11:58 -Correct Patient Yes Yes Yes -Correct Side, Site, Position Yes Yes Yes -Correct Procedure Yes Yes Yes -Procedure Performed Yes Yes Yes -Type of Procedure Debridement Debridement Debridement -Clinical Debridement Subcutaneous Subcutaneous Subcutaneous -Post Debridement Size (cm) - Length 4.5 4.5 5.0 -Post Debridement Size (cm) - Width 3.3 3.5 2.8 -Post Debridement Size (cm) - Depth 1.0 1.5 1.5 -Total Square Cm 14.85 15.75 14.00 -Wound/Ulcer Outcome Not Healed Not Healed Not Healed -Ulcer Cleansing Rinsed/ Rinsed/ Rinsed/ Irrigated with Irrigated with Irrigated with Saline Saline Saline -Foul Odor after Cleansing No No No -Bioengineered Tissue No No No -Bleeding Controlled with Pressure Pressure Pressure -Other UNDERMINING 11- 3 - 2.0CM -Offloading No No No -Treatment Response Procedure Procedure Procedure Tolerated Well Tolerated Well Tolerated Well Pain Scale: 0-10 Numeric Is Patient Pain Free? Yes Yes Yes 06/07/18 10:47 Wound Center Nurse 2 #4 LEFT HEEL -Time 10:52 -Correct Patient Yes -Correct Side, Site, Position Yes -Correct Procedure Yes -Procedure Performed Yes -Type of Procedure Debridement -Clinical Debridement Selective -Post Debridement Size (cm) - Length 3.5 -Post Debridement Size (cm) - Width 4.0 -Post Debridement Size (cm) - Depth 0.1 -Total Square Cm 14.00 -Wound/Ulcer Outcome Not Healed -Ulcer Cleansing Rinsed/ Irrigated with Saline -Foul Odor after Cleansing No -Bioengineered Tissue No -Bleeding Controlled with Pressure -Offloading No -Treatment Response Procedure Tolerated Well #3- RT ELBOW -Time 10:53 -Correct Patient Yes -Correct Side, Site, Position Yes -Correct Procedure Yes -Procedure Performed Yes -Type of Procedure Debridement -Clinical Debridement Subcutaneous -Post Debridement Size (cm) - Length 0.3 -Post Debridement Size (cm) - Width 0.2 -Post Debridement Size (cm) - Depth 0.1 -Total Square Cm 0.06 -Wound/Ulcer Outcome Not Healed -Ulcer Cleansing Rinsed/ Irrigated with Saline -Foul Odor after Cleansing No -Bioengineered Tissue No -Bleeding Controlled with Pressure -Other -Offloading No -Treatment Response Procedure Tolerated Well 2. R Ischial -Time 10:53 -Correct Patient Yes -Correct Side, Site, Position Yes -Correct Procedure Yes -Procedure Performed Yes -Type of Procedure Debridement -Clinical Debridement Subcutaneous -Post Debridement Size (cm) - Length 6.0 -Post Debridement Size (cm) - Width 3.0 -Post Debridement Size (cm) - Depth 1.2 -Total Square Cm 18.00 -Wound/Ulcer Outcome Not Healed -Ulcer Cleansing Rinsed/ Irrigated with Saline -Foul Odor after Cleansing No -Bioengineered Tissue No -Bleeding Controlled with Pressure -Other undermining 12- 2, 2.0cm -Offloading No -Treatment Response Procedure Tolerated Well Pain Scale: 0-10 Numeric Is Patient Pain Free? Yes Wound debrided: Left heel Wound Grade/Stage: Stage II Type of Debridement: Selective debridement Anesthesia Used: 4% Lidocaine Solution Depth: Down to and including healthy tissue Percentage of wound debrided: 100 Instrument Used: #15 blade, Forceps Tissue Removed: Slough and devitalized tissue Severity: Limited To Skin Breakdown Amount of bleeding with debridement: Mild Bleeding Controlled with: Pressure Patient tolerated procedure well - Additional Wound Wound debrided: Right buttock Wound Grade/Stage: Stage IV Type of Debridement: Excisional debridement Anesthesia Used: 4% Lidocaine Solution Depth: Down to and including healthy tissue, in the subcutaneous layer Percentage of wound debrided: 100 Instrument Used: 7mm curette Tissue Removed: Slough and devitalized tissue Severity: Fat Layer Exposed Amount of bleeding with debridement: Mild Bleeding Controlled with: Pressure Patient tolerated procedure: Patient tolerated procedure well - Additional Wound Wound debrided: Right elbow Wound Grade/Stage: Stage II Type of Debridement: Excisional debridement Anesthesia Used: 4% Lidocaine Solution Depth: Down to and including healthy tissue, in the subcutaneous layer Percentage of wound debrided: 100 Instrument Used: - - 2 mm Tissue Removed: Slough and devitalized tissue Severity: Fat Layer Exposed Amount of bleeding with debridement: Mild Bleeding Controlled with: Pressure Patient tolerated procedure: Patient tolerated procedure well Assessment/Plan Active Problems Skin ulcer of elbow with fat layer exposed (Acute) Decubitus ulcer of left heel, stage 2 (Acute) Right ischial pressure sore, stage 4 (Chronic) Assessment: Nonhealing right buttock pressure ulcer, stage IV. Osteomyelitis right pelvic region status post surgical debridement and chronic antibiotic. Right elbow ulcer. Left heel decubitus ulcer. Stage II. Plan: Tenderness and increased drainage from right elbow have resolved. Has completed his course of antibiotic. New left heel ulcer. Initially blistered/deep tissue injury. Debridement done as documented above. Procedure was well-tolerated. Aquacel with Adaptic over top to all. Change daily to twice daily depending on drainage. He did follow-up at the [facility] and is scheduled to have an initial surgical debridement next Monday in anticipation for the wound flap/reconstructive surgery. Continue increased protein intake. Low loss air mattress, gel cushion for sitting. Reposition often. His questions were answered and he was advised to call with any further questions or concerns. Follow-up in 1 week. This note was generated with [employer] dictation software. It may contain incorrect words, spelling, and punctuation that were not noted in checking the note before signing.
== END 2018-06-10 23:59 ==
LOC: WC 10:30
PROVIDERS: Family Provider Internal Medicine; PCP Internal Medicine; Visit Provider Internal Medicine
DX: L59.8 Other specified disorders of the skin and subcutaneous tissue related to radiation (principal); Y84.2 Radiological procedure and radiotherapy as the cause of abnormal reaction of the patient, or of later complication, without mention of misadventure at the time of the procedure; L89.314 Pressure ulcer of right buttock, stage 4; L89.622 Pressure ulcer of left heel, stage 2; L98.492 Non-pressure chronic ulcer of skin of other sites with fat layer exposed
CPT/HCPCS: 11042; 97597

== ENCOUNTER → 2018-06-11 14:37 | Outpatient (CLI) | payer MEDICAID, SELFPAY ==
[2018-06-07 10:33] VITALS: BMI 27.8
--- NOTE | 2018-06-11 14:43 | RAD_ITS ---
STUDY: X-RAY - LUMBAR SPINE REASON FOR EXAM: Male, 63 years old. Chronic neck and back pain. TECHNIQUE: 2 view(s) of the lumbar spine were obtained. COMPARISON: None FINDINGS: Normal lumbar lordosis. Is mild levoscoliosis. There is mild retrolisthesis of L3 over L4. There is multilevel endplate spondylosis of the lumbar vertebrae. There is narrowing of L3-L4 and to a lesser extent L2-L3 and L4-L5 disc spaces. There is no demonstrated acute compression fracture deformity. There is atherosclerotic calcification of the abdominal aorta without a demonstrated aneurysm. RAD/Lumbar Spine 2 or 3 Views IMPRESSION: Degenerative changes of the spine, as detailed above. Electronically Signed: Alli Dorantes MD at 13:57 EDT Tel , Service support ,
--- NOTE | 2018-06-11 14:44 | RAD_ITS ---
STUDY: X-RAY - CERVICAL SPINE REASON FOR EXAM: Male, 63 years old. Pain TECHNIQUE: 3 view(s) of the cervical spine were obtained. COMPARISON: None FINDINGS: There are degenerative changes of the anterior atlantoaxial articulation. The odontoid is partially visualized on this study. Normal cervical lordosis. There is multi-level endplate spondylosis. There is severe multi-level degenerative disc disease with multilevel disc space narrowing. There are bilateral carotid artery calcifications. RAD/Cerv Spine 2 or 3 Views IMPRESSION: Multilevel degenerative disc disease multilevel spondylosis. Carotid artery calcification. Electronically Signed: Jenni Willard MD at 22:16 EDT Tel , Service support ,
== END ==
PROVIDERS: Family Provider Internal Medicine; PCP Internal Medicine; Referring Provider Anesthesiology Pain Medicine; Visit Provider Anesthesiology Pain Medicine
DX: M54.9 Dorsalgia, unspecified (principal); M54.2 Cervicalgia
CPT/HCPCS: 72040; 72100

== ENCOUNTER 2018-07-04 11:15 | Outpatient (RCR) | payer MEDICAID, SELFPAY ==
[2018-06-11 01:23] VITALS: BP 121/62; PULSE 63; RESP 16; TEMP 36.4
[2018-06-14 09:11] VITALS: BP 143/84; PULSE 69; RESP 18; TEMP 36.6; BMI 27.8
--- NOTE | 2018-06-14 12:14 | PCM.WC.PN ---
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 Status: Chronic Current Visit: Yes Code(s): L98.492 - Non-pressure chronic ulcer of skin of other sites with fat layer exposed (3) Right ischial pressure sore, stage 4 Status: Chronic Current Visit: Yes Code(s): L89.314 - Pressure ulcer of right buttock, stage 4 (4) Soft tissue radionecrosis Status: Chronic Current Visit: Yes Code(s): L59.8 - Other specified disorders of the skin and subcutaneous tissue related to radiation; Y84.2 - Radiological procedure and radiotherapy as the cause of abnormal reaction of the patient, or of later complication, without mention of misadventure at the time of the procedure Type of Wound Chief Complaint: Nonhealing radiation pressure ulcer. History of Wound: Mr Rincon is a 63 yo very well known to the wound center and up to a couple of weeks ago, was following up with Dr. Mesa for his chronic right buttock stage IV ulcer. He also had sessions of HBO. He however was referred to a tertiary center due to concerns for osteomyelitis. He is status post surgical debridement and chronic antibiotics at the [facility]. He has done well since then. He returns here for continued wound care. He denies any concerns at this time. It appears he has been having a wet-to-dry dressing at his nursing facility. He denies any significant discharge from the wound. His VAC was discontinued. He denies chills, fever or feeling of unwell. Plan per patient is for a possible flap closure. Progress of Wound: No new complaints at this time. Scheduled for surgical debridement at the [facility] tomorrow. - Physical Exam Vital Signs Temp Pulse Resp BP 98 F 69 18 143/84 H 06/14/18 09:11 06/14/18 09:11 06/14/18 09:11 06/14/18 09:11 General: Alert, Oriented x3, Cooperative, No apparent distress HEENT: Atraumatic, Normocephalic Oral: Moist Mucosa Neck: Supple Lungs: Normal air movement Skin: Ulcer/ Wound Wound Measurements and Assessment WC - Nurse 1 - General Ulcer Measurement Start: 06/14/18 09:11 Freq: Status: Active Protocol: Activity Type Activity Date Activity User E-Sign Co-Sign Detail Recorded Client Recorded Date Recorded By Document 06/14/18 09:11 CT [id number] 06/14/18 09:21 CT 06/14/18 09:11 Wound Center Nurse 1 [Ulcer Assessment] #4 LEFT HEEL -Combined with other wound No -Current Size (cm) - Length 0.1 -Current Size (cm) - Width 0.1 -Current Size (cm) - Depth 0.1 -Total Square Cm 0.01 -Photo Taken No -Tunneling No -Wound Margin Flat & Intact -Granulation Amt Large (67-100%) -Granulation Quality Pale [place] -Necrosis Amt Small (1-33%) -Necrotic Tissue Type Adherent Slough -Texture (Nathalie-wound Skin Appearance) Assessed Callus -Moisture (Nathalie-wound Skin Appearance Assessed ) -Color (Nathalie-wound Skin Appearance) Assessed #3- RT ELBOW -Current Size (cm) - Length 0.3 -Current Size (cm) - Width 0.2 -Current Size (cm) - Depth 0.3 -Total Square Cm 0.06 -Maximum Distance #2 (cm) 1.3 -Circular Undermining Yes -Wound Margin Thickened & Rolled Under -Granulation Amt Medium (34-66%) -Granulation Quality Red -Slough/Fibrin Yes -Necrosis Amt Medium (34-66%) -Necrotic Tissue Type Adherent Slough -Texture (Nathalie-wound Skin Appearance) Assessed -Moisture (Nathalie-wound Skin Appearance Assessed ) -Color (Nathalie-wound Skin Appearance) Assessed -Temperature (Nathalie-wound Skin No Abnormality Appearance) (Pt Warm) -Tenderness on Palpation (Nathalie-wound No Skin Appearance) -Ulcer Cleansing Rinsed/ Irrigated with Saline -Foul Odor after Cleansing No -Anesthetic Used 4% Lidocaine Solution 2. R Ischial -Combined with other wound No -Current Size (cm) - Length 6.3 -Current Size (cm) - Width 3.4 -Current Size (cm) - Depth 0.6 -Total Square Cm 21.42 -Epithelialization Small 1-33% -Undermining/Tunneling Yes -Undermining/Tunneling Starts (O' 12 clock) -Undermining/Tunneling Ends (O'clock) 2 -Maximum Distance (cm) 1.6 -Exudate Amt Small -Exudate Type Serosanguineous -Wound Margin Thickened & Rolled Under -Granulation Amt Large (67-100%) -Granulation Quality Pale [place] -Slough/Fibrin Yes -Necrosis Amt Small (1-33%) -Necrotic Tissue Type Adherent Slough -Structure Exposed Bone -Texture (Nathalie-wound Skin Appearance) Assessed -Moisture (Nathalie-wound Skin Appearance Assessed ) Maceration -Color (Nathalie-wound Skin Appearance) Assessed -Temperature (Nathalie-wound Skin No Abnormality Appearance) (Pt Warm) -Tenderness on Palpation (Nathalie-wound No Skin Appearance) -Ulcer Cleansing Wound Cleanser -Foul Odor after Cleansing No -Anesthetic Used 4% Lidocaine Solution [Edema Assessment] -Lower Limb Edema Present NA WC - Nurse 2 - General Ulcer CM Notes Start: 06/14/18 09:11 Freq: Status: Active Protocol: Activity Type Activity Date Activity User E-Sign Co-Sign Detail Recorded Client Recorded Date Recorded By Document 06/14/18 09:33 MW [id number] 06/14/18 09:44 MW 06/14/18 09:33 Wound Center Nurse 2 [Procedure/Treatment] #4 LEFT HEEL -Time 09:35 -Correct Patient Yes -Correct Side, Site, Position Yes -Correct Procedure Yes -Procedure Performed Yes -Type of Procedure Debridement -Clinical Debridement Subcutaneous -Post Debridement Size (cm) - Length 4.0 -Post Debridement Size (cm) - Width 3.5 -Post Debridement Size (cm) - Depth 0.1 -Total Square Cm 14.00 -Wound/Ulcer Outcome Not Healed -Ulcer Cleansing Rinsed/ Irrigated with Saline -Foul Odor after Cleansing No -Bioengineered Tissue No -Bleeding Controlled with NA -Offloading No -Treatment Response Procedure Tolerated Well #3- RT ELBOW -Time 09:34 -Correct Patient Yes -Correct Side, Site, Position Yes -Correct Procedure Yes -Procedure Performed Yes -Type of Procedure Debridement -Clinical Debridement Subcutaneous -Post Debridement Size (cm) - Length 0.3 -Post Debridement Size (cm) - Width 0.3 -Post Debridement Size (cm) - Depth 0.1 -Total Square Cm 0.09 -Wound/Ulcer Outcome Not Healed -Ulcer Cleansing Rinsed/ Irrigated with Saline -Foul Odor after Cleansing No -Bioengineered Tissue No -Bleeding Controlled with Pressure -Offloading No -Treatment Response Procedure Tolerated Well 2. R Ischial -Time 09:34 -Correct Patient Yes -Correct Side, Site, Position Yes -Correct Procedure Yes -Procedure Performed Yes -Type of Procedure Debridement -Clinical Debridement Subcutaneous -Post Debridement Size (cm) - Length 5.1 -Post Debridement Size (cm) - Width 3.0 -Post Debridement Size (cm) - Depth 1.2 -Total Square Cm 15.30 -Wound/Ulcer Outcome Not Healed -Ulcer Cleansing Rinsed/ Irrigated with Saline -Foul Odor after Cleansing No -Bioengineered Tissue No -Bleeding Controlled with Pressure -Offloading No -Treatment Response Procedure Tolerated Well [See Physician Procedure note for Specifics] Pain Scale: 0-10 Numeric [Pain] -Is Patient Pain Free? Yes Musculoskeletal: No Muscle Wasting Neurological: Cranial nerves II-XII grossly intact Psych/Mental Status: Normal Affect Debridement Note Post-Debridement Measurements/Treatment WC - Nurse 2 - General Ulcer CM Notes Start: 06/14/18 09:11 Freq: Status: Active Protocol: Activity Type Activity Date Activity User E-Sign Co-Sign Detail Recorded Client Recorded Date Recorded By Document 06/14/18 09:33 MW [id number] 06/14/18 09:44 MW 06/14/18 09:33 Wound Center Nurse 2 #4 LEFT HEEL -Time 09:35 -Correct Patient Yes -Correct Side, Site, Position Yes -Correct Procedure Yes -Procedure Performed Yes -Type of Procedure Debridement -Clinical Debridement Subcutaneous -Post Debridement Size (cm) - Length 4.0 -Post Debridement Size (cm) - Width 3.5 -Post Debridement Size (cm) - Depth 0.1 -Total Square Cm 14.00 -Wound/Ulcer Outcome Not Healed -Ulcer Cleansing Rinsed/ Irrigated with Saline -Foul Odor after Cleansing No -Bioengineered Tissue No -Bleeding Controlled with NA -Offloading No -Treatment Response Procedure Tolerated Well #3- RT ELBOW -Time 09:34 -Correct Patient Yes -Correct Side, Site, Position Yes -Correct Procedure Yes -Procedure Performed Yes -Type of Procedure Debridement -Clinical Debridement Subcutaneous -Post Debridement Size (cm) - Length 0.3 -Post Debridement Size (cm) - Width 0.3 -Post Debridement Size (cm) - Depth 0.1 -Total Square Cm 0.09 -Wound/Ulcer Outcome Not Healed -Ulcer Cleansing Rinsed/ Irrigated with Saline -Foul Odor after Cleansing No -Bioengineered Tissue No -Bleeding Controlled with Pressure -Offloading No -Treatment Response Procedure Tolerated Well 2. R Ischial -Time 09:34 -Correct Patient Yes -Correct Side, Site, Position Yes -Correct Procedure Yes -Procedure Performed Yes -Type of Procedure Debridement -Clinical Debridement Subcutaneous -Post Debridement Size (cm) - Length 5.1 -Post Debridement Size (cm) - Width 3.0 -Post Debridement Size (cm) - Depth 1.2 -Total Square Cm 15.30 -Wound/Ulcer Outcome Not Healed -Ulcer Cleansing Rinsed/ Irrigated with Saline -Foul Odor after Cleansing No -Bioengineered Tissue No -Bleeding Controlled with Pressure -Offloading No -Treatment Response Procedure Tolerated Well Pain Scale: 0-10 Numeric Is Patient Pain Free? Yes Wound debrided: Right elbow Wound Grade/Stage: Stage II Type of Debridement: Excisional debridement Anesthesia Used: 4% Lidocaine Solution Depth: Down to and including healthy tissue, in the subcutaneous layer Percentage of wound debrided: 100 Instrument Used: 3mm curette Tissue Removed: Slough and devitalized tissue Severity: Fat Layer Exposed Amount of bleeding with debridement: Mild Bleeding Controlled with: Pressure Patient tolerated procedure well - Additional Wound Wound debrided: Right buttock Wound Grade/Stage: Stage IV Type of Debridement: Excisional debridement Anesthesia Used: 4% Lidocaine Solution Depth: Down to and including healthy tissue, in the subcutaneous layer Percentage of wound debrided: 100 Instrument Used: 5mm curette Tissue Removed: Slough and devitalized tissue Severity: Fat Layer Exposed Amount of bleeding with debridement: Mild Bleeding Controlled with: Pressure Patient tolerated procedure: Patient tolerated procedure well - Additional Wound Wound debrided: Left heel cluster Wound Grade/Stage: Stage II Type of Debridement: Excisional debridement Anesthesia Used: 4% Lidocaine Solution Depth: Down to and including healthy tissue, in the subcutaneous layer Percentage of wound debrided: 100 Instrument Used: 3mm curette Tissue Removed: Slough and devitalized tissue Severity: Fat Layer Exposed Amount of bleeding with debridement: Mild Bleeding Controlled with: Pressure Patient tolerated procedure: Patient tolerated procedure well Assessment/Plan Active Problems Skin ulcer of elbow with fat layer exposed (Chronic) Decubitus ulcer of left heel, stage 2 (Acute) Right ischial pressure sore, 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) Assessment: Nonhealing right buttock pressure ulcer, stage IV. Osteomyelitis right pelvic region status post surgical debridement and chronic antibiotic. Right elbow ulcer. Left heel decubitus ulcer. Stage II. Plan: Left heel has improved. Buttock ulcer improving. Left elbow with no significant improvement. Patient states that the dressing rarely stays on. Debridement done as documented above. Procedure was well-tolerated. Continue Aquacel with Adaptic over top to buttock and left heel. Change daily to twice daily depending on drainage. Switch to Pomogran with adaptic over top to right elbow. Change daily. Scheduled to have an initial surgical debridement tomorrow at the [facility] main campus in anticipation for the wound flap/reconstructive surgery. Continue increased protein intake. Low loss air mattress, gel cushion for sitting. Reposition often. His questions were answered and he was advised to call with any further questions or concerns. Follow-up in 1 week. This note was generated with [employer] dictation software. It may contain incorrect words, spelling, and punctuation that were not noted in checking the note before signing.
--- NOTE | 2018-06-14 12:18 | PN.PCM_ITS ---
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 Status: Chronic Current Visit: Yes Code(s): L98.492 - Non-pressure chronic ulcer of skin of other sites with fat layer exposed (3) Right ischial pressure sore, stage 4 Status: Chronic Current Visit: Yes Code(s): L89.314 - Pressure ulcer of right buttock, stage 4 (4) Soft tissue radionecrosis Status: Chronic Current Visit: Yes Code(s): L59.8 - Other specified disorders of the skin and subcutaneous tissue related to radiation; Y84.2 - Radiological procedure and radiotherapy as the cause of abnormal reaction of the patient, or of later complication, without mention of misadventure at the time of the procedure Type of Wound Chief Complaint: Nonhealing radiation pressure ulcer. History of Wound: Mr Rincon is a 63 yo very well known to the wound center and up to a couple of weeks ago, was following up with Dr. Mesa for his chronic right buttock stage IV ulcer. He also had sessions of HBO. He however was referred to a tertiary center due to concerns for osteomyelitis. He is status post surgical debridement and chronic antibiotics at the [facility]. He has done well since then. He returns here for continued wound care. He denies any concerns at this time. It appears he has been having a wet-to-dry dressing at his nursing facility. He denies any significant discharge from the wound. His VAC was discontinued. He denies chills, fever or feeling of unwell. Plan per patient is for a possible flap closure. Progress of Wound: No new complaints at this time. Scheduled for surgical debridement at the [facility] tomorrow. - Physical Exam Vital Signs Temp Pulse Resp BP 98 F 69 18 143/84 H 06/14/18 09:11 06/14/18 09:11 06/14/18 09:11 06/14/18 09:11 General: Alert, Oriented x3, Cooperative, No apparent distress HEENT: Atraumatic, Normocephalic Oral: Moist Mucosa Neck: Supple Lungs: Normal air movement Skin: Ulcer/ Wound Wound Measurements and Assessment WC - Nurse 1 - General Ulcer Measurement Start: 06/14/18 09:11 Freq: Status: Active Protocol: Activity Type Activity Date Activity User E-Sign Co-Sign Detail Recorded Client Recorded Date Recorded By Document 06/14/18 09:11 MI [id number] 06/14/18 09:21 MI 06/14/18 09:11 Wound Center Nurse 1 [Ulcer Assessment] #4 LEFT HEEL -Combined with other wound No -Current Size (cm) - Length 0.1 -Current Size (cm) - Width 0.1 -Current Size (cm) - Depth 0.1 -Total Square Cm 0.01 -Photo Taken No -Tunneling No -Wound Margin Flat & Intact -Granulation Amt Large (67-100%) -Granulation Quality Pale [place] -Necrosis Amt Small (1-33%) -Necrotic Tissue Type Adherent Slough -Texture (Nathalie-wound Skin Appearance) Assessed Callus -Moisture (Nathalie-wound Skin Appearance Assessed ) -Color (Nathalie-wound Skin Appearance) Assessed #3- RT ELBOW -Current Size (cm) - Length 0.3 -Current Size (cm) - Width 0.2 -Current Size (cm) - Depth 0.3 -Total Square Cm 0.06 -Maximum Distance #2 (cm) 1.3 -Circular Undermining Yes -Wound Margin Thickened & Rolled Under -Granulation Amt Medium (34-66%) -Granulation Quality Red -Slough/Fibrin Yes -Necrosis Amt Medium (34-66%) -Necrotic Tissue Type Adherent Slough -Texture (Nathalie-wound Skin Appearance) Assessed -Moisture (Nathalie-wound Skin Appearance Assessed ) -Color (Nathalie-wound Skin Appearance) Assessed -Temperature (Nathalie-wound Skin No Abnormality Appearance) (Pt Warm) -Tenderness on Palpation (Nathalie-wound No Skin Appearance) -Ulcer Cleansing Rinsed/ Irrigated with Saline -Foul Odor after Cleansing No -Anesthetic Used 4% Lidocaine Solution 2. R Ischial -Combined with other wound No -Current Size (cm) - Length 6.3 -Current Size (cm) - Width 3.4 -Current Size (cm) - Depth 0.6 -Total Square Cm 21.42 -Epithelialization Small 1-33% -Undermining/Tunneling Yes -Undermining/Tunneling Starts (O' 12 clock) -Undermining/Tunneling Ends (O'clock) 2 -Maximum Distance (cm) 1.6 -Exudate Amt Small -Exudate Type Serosanguineous -Wound Margin Thickened & Rolled Under -Granulation Amt Large (67-100%) -Granulation Quality Pale [place] -Slough/Fibrin Yes -Necrosis Amt Small (1-33%) -Necrotic Tissue Type Adherent Slough -Structure Exposed Bone -Texture (Nathalie-wound Skin Appearance) Assessed -Moisture (Nathalie-wound Skin Appearance Assessed ) Maceration -Color (Nathalie-wound Skin Appearance) Assessed -Temperature (Nathalie-wound Skin No Abnormality Appearance) (Pt Warm) -Tenderness on Palpation (Nathalie-wound No Skin Appearance) -Ulcer Cleansing Wound Cleanser -Foul Odor after Cleansing No -Anesthetic Used 4% Lidocaine Solution [Edema Assessment] -Lower Limb Edema Present NA WC - Nurse 2 - General Ulcer CM Notes Start: 06/14/18 09:11 Freq: Status: Active Protocol: Activity Type Activity Date Activity User E-Sign Co-Sign Detail Recorded Client Recorded Date Recorded By Document 06/14/18 09:33 MW [id number] 06/14/18 09:44 MW 06/14/18 09:33 Wound Center Nurse 2 [Procedure/Treatment] #4 LEFT HEEL -Time 09:35 -Correct Patient Yes -Correct Side, Site, Position Yes -Correct Procedure Yes -Procedure Performed Yes -Type of Procedure Debridement -Clinical Debridement Subcutaneous -Post Debridement Size (cm) - Length 4.0 -Post Debridement Size (cm) - Width 3.5 -Post Debridement Size (cm) - Depth 0.1 -Total Square Cm 14.00 -Wound/Ulcer Outcome Not Healed -Ulcer Cleansing Rinsed/ Irrigated with Saline -Foul Odor after Cleansing No -Bioengineered Tissue No -Bleeding Controlled with NA -Offloading No -Treatment Response Procedure Tolerated Well #3- RT ELBOW -Time 09:34 -Correct Patient Yes -Correct Side, Site, Position Yes -Correct Procedure Yes -Procedure Performed Yes -Type of Procedure Debridement -Clinical Debridement Subcutaneous -Post Debridement Size (cm) - Length 0.3 -Post Debridement Size (cm) - Width 0.3 -Post Debridement Size (cm) - Depth 0.1 -Total Square Cm 0.09 -Wound/Ulcer Outcome Not Healed -Ulcer Cleansing Rinsed/ Irrigated with Saline -Foul Odor after Cleansing No -Bioengineered Tissue No -Bleeding Controlled with Pressure -Offloading No -Treatment Response Procedure Tolerated Well 2. R Ischial -Time 09:34 -Correct Patient Yes -Correct Side, Site, Position Yes -Correct Procedure Yes -Procedure Performed Yes -Type of Procedure Debridement -Clinical Debridement Subcutaneous -Post Debridement Size (cm) - Length 5.1 -Post Debridement Size (cm) - Width 3.0 -Post Debridement Size (cm) - Depth 1.2 -Total Square Cm 15.30 -Wound/Ulcer Outcome Not Healed -Ulcer Cleansing Rinsed/ Irrigated with Saline -Foul Odor after Cleansing No -Bioengineered Tissue No -Bleeding Controlled with Pressure -Offloading No -Treatment Response Procedure Tolerated Well [See Physician Procedure note for Specifics] Pain Scale: 0-10 Numeric [Pain] -Is Patient Pain Free? Yes Musculoskeletal: No Muscle Wasting Neurological: Cranial nerves II-XII grossly intact Psych/Mental Status: Normal Affect Debridement Note Post-Debridement Measurements/Treatment WC - Nurse 2 - General Ulcer CM Notes Start: 06/14/18 09:11 Freq: Status: Active Protocol: Activity Type Activity Date Activity User E-Sign Co-Sign Detail Recorded Client Recorded Date Recorded By Document 06/14/18 09:33 MW [id number] 06/14/18 09:44 MW 06/14/18 09:33 Wound Center Nurse 2 #4 LEFT HEEL -Time 09:35 -Correct Patient Yes -Correct Side, Site, Position Yes -Correct Procedure Yes -Procedure Performed Yes -Type of Procedure Debridement -Clinical Debridement Subcutaneous -Post Debridement Size (cm) - Length 4.0 -Post Debridement Size (cm) - Width 3.5 -Post Debridement Size (cm) - Depth 0.1 -Total Square Cm 14.00 -Wound/Ulcer Outcome Not Healed -Ulcer Cleansing Rinsed/ Irrigated with Saline -Foul Odor after Cleansing No -Bioengineered Tissue No -Bleeding Controlled with NA -Offloading No -Treatment Response Procedure Tolerated Well #3- RT ELBOW -Time 09:34 -Correct Patient Yes -Correct Side, Site, Position Yes -Correct Procedure Yes -Procedure Performed Yes -Type of Procedure Debridement -Clinical Debridement Subcutaneous -Post Debridement Size (cm) - Length 0.3 -Post Debridement Size (cm) - Width 0.3 -Post Debridement Size (cm) - Depth 0.1 -Total Square Cm 0.09 -Wound/Ulcer Outcome Not Healed -Ulcer Cleansing Rinsed/ Irrigated with Saline -Foul Odor after Cleansing No -Bioengineered Tissue No -Bleeding Controlled with Pressure -Offloading No -Treatment Response Procedure Tolerated Well 2. R Ischial -Time 09:34 -Correct Patient Yes -Correct Side, Site, Position Yes -Correct Procedure Yes -Procedure Performed Yes -Type of Procedure Debridement -Clinical Debridement Subcutaneous -Post Debridement Size (cm) - Length 5.1 -Post Debridement Size (cm) - Width 3.0 -Post Debridement Size (cm) - Depth 1.2 -Total Square Cm 15.30 -Wound/Ulcer Outcome Not Healed -Ulcer Cleansing Rinsed/ Irrigated with Saline -Foul Odor after Cleansing No -Bioengineered Tissue No -Bleeding Controlled with Pressure -Offloading No -Treatment Response Procedure Tolerated Well Pain Scale: 0-10 Numeric Is Patient Pain Free? Yes Wound debrided: Right elbow Wound Grade/Stage: Stage II Type of Debridement: Excisional debridement Anesthesia Used: 4% Lidocaine Solution Depth: Down to and including healthy tissue, in the subcutaneous layer Percentage of wound debrided: 100 Instrument Used: 3mm curette Tissue Removed: Slough and devitalized tissue Severity: Fat Layer Exposed Amount of bleeding with debridement: Mild Bleeding Controlled with: Pressure Patient tolerated procedure well - Additional Wound Wound debrided: Right buttock Wound Grade/Stage: Stage IV Type of Debridement: Excisional debridement Anesthesia Used: 4% Lidocaine Solution Depth: Down to and including healthy tissue, in the subcutaneous layer Percentage of wound debrided: 100 Instrument Used: 5mm curette Tissue Removed: Slough and devitalized tissue Severity: Fat Layer Exposed Amount of bleeding with debridement: Mild Bleeding Controlled with: Pressure Patient tolerated procedure: Patient tolerated procedure well - Additional Wound Wound debrided: Left heel cluster Wound Grade/Stage: Stage II Type of Debridement: Excisional debridement Anesthesia Used: 4% Lidocaine Solution Depth: Down to and including healthy tissue, in the subcutaneous layer Percentage of wound debrided: 100 Instrument Used: 3mm curette Tissue Removed: Slough and devitalized tissue Severity: Fat Layer Exposed Amount of bleeding with debridement: Mild Bleeding Controlled with: Pressure Patient tolerated procedure: Patient tolerated procedure well Assessment/Plan Active Problems Skin ulcer of elbow with fat layer exposed (Chronic) Decubitus ulcer of left heel, stage 2 (Acute) Right ischial pressure sore, 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) Assessment: Nonhealing right buttock pressure ulcer, stage IV. Osteomyelitis ri t pelvic region status post surgical debridement and chronic antibiotic. Right elbow ulcer. Left heel decubitus ulcer. Stage II. Plan: Left heel has improved. Buttock ulcer improving. Left elbow with no significant improvement. Patient states that the dressing rarely stays on. Debridement done as documented above. Procedure was well-tolerated. Continue Aquacel with Adaptic over top to buttock and left heel. Change daily to twice daily depending on drainage. Switch to Pomogran with adaptic over top to right elbow. Change daily. Scheduled to have an initial surgical debridement tomorrow at the [facility] main campus in anticipation for the wound flap/reconstructive surgery. Continue increased protein intake. Low loss air mattress, gel cushion for sitting. Reposition often. His questions were answered and he was advised to call with any further questions or concerns. Follow-up in 1 week. This note was generated with [employer] dictation software. It may contain incorrect words, spelling, and punctuation that were not noted in checking the note before signing.
[2018-07-04 11:56] VITALS: BP 107/53; PULSE 72; RESP 18; TEMP 36.6; BMI 27.8
--- NOTE | 2018-07-04 12:12 | WC ---
R ischial post op sutures intact on inferior open wound noted superior with depth of 4 cm . Neto intact.
--- NOTE | 2018-07-04 17:20 | PCM.WC.PN ---
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 Current Visit: Yes Code(s): L98.492 - Non-pressure chronic ulcer of skin of other sites with fat layer exposed (3) Right ischial pressure sore, stage 4 Status: Chronic Current Visit: Yes Code(s): L89.314 - Pressure ulcer of right buttock, stage 4 (4) Soft tissue radionecrosis Status: Chronic Current Visit: Yes Code(s): L59.8 - Other specified disorders of the skin and subcutaneous tissue related to radiation; Y84.2 - Radiological procedure and radiotherapy as the cause of abnormal reaction of the patient, or of later complication, without mention of misadventure at the time of the procedure Type of Wound Chief Complaint: Nonhealing radiation pressure ulcer. History of Wound: Mr Rincon is a 63 yo very well known to the wound center and up to a couple of weeks ago, was following up with Dr. Mesa for his chronic right buttock stage IV ulcer. He also had sessions of HBO. He however was referred to a tertiary center due to concerns for osteomyelitis. He is status post surgical debridement and chronic antibiotics at the [facility]. He has done well since then. He returns here for continued wound care. He denies any concerns at this time. It appears he has been having a wet-to-dry dressing at his nursing facility. He denies any significant discharge from the wound. His VAC was discontinued. He denies chills, fever or feeling of unwell. Plan per patient is for a possible flap closure. Progress of Wound: Was at the [facility] and had flap closure of his decubitus ulcer. However, now appears to have a wound breakdown. Has not followed up since his surgery. - Physical Exam Vital Signs Temp Pulse Resp BP 97.8 F 72 18 107/53 L 07/04/18 11:56 07/04/18 11:56 07/04/18 11:56 07/04/18 11:56 General: Alert, Oriented x3, Cooperative, No apparent distress HEENT: Atraumatic, Normocephalic Oral: Moist Mucosa Neck: Supple Lungs: Normal air movement Abdomen: Non Tender Extremities: No cyanosis Skin: Ulcer/ Wound Wound Measurements and Assessment WC - Nurse 1 - General Ulcer Measurement Start: 06/14/18 09:11 Freq: Status: Active Protocol: Activity Type Activity Date Activity User E-Sign Co-Sign Detail Recorded Client Recorded Date Recorded By Document 07/04/18 11:56 RB [id number] 07/04/18 12:13 RB 07/04/18 11:56 Wound Center Nurse 1 [Ulcer Assessment] #4 LEFT HEEL -Combined with other wound No -Current Size (cm) - Length 0.1 -Current Size (cm) - Width 0.1 -Current Size (cm) - Depth 0.1 -Total Square Cm 0.01 -Photo Taken No -Tunneling No -Undermining/Tunneling No -Circular Undermining No -Exudate Amt None Present -Wound Margin Distinct, Outline Attached -Granulation Amt Large (67-100%) -Granulation Quality [place] -Slough/Fibrin Yes -Necrosis Amt Small (1-33%) -Necrotic Tissue Type Adherent Slough -Structure Exposed N/A -Texture (Nathalie-wound Skin Appearance) Assessed -Moisture (Nathalie-wound Skin Appearance Assessed ) -Color (Nathalie-wound Skin Appearance) Assessed -Temperature (Nathalie-wound Skin No Abnormality Appearance) (Pt Warm) -Tenderness on Palpation (Nathalie-wound No Skin Appearance) -Ulcer Cleansing Wound Cleanser -Foul Odor after Cleansing No -Anesthetic Used 4% Lidocaine Solution #3- RT ELBOW -Current Size (cm) - Length 0.3 -Current Size (cm) - Width 0.3 -Current Size (cm) - Depth 0.2 -Total Square Cm 0.09 -Photo Taken No -Tunneling No -Undermining/Tunneling No -Circular Undermining No -Exudate Amt Small -Exudate Type Serosanguineous -Wound Margin Distinct, Outline Attached -Granulation Amt Large (67-100%) -Granulation Quality [place] -Slough/Fibrin Yes -Necrosis Amt Small (1-33%) -Necrotic Tissue Type Adherent Slough -Structure Exposed N/A -Texture (Nathalie-wound Skin Appearance) Assessed -Moisture (Nathalie-wound Skin Appearance Assessed ) -Color (Nathalie-wound Skin Appearance) Assessed -Temperature (Nathalie-wound Skin No Abnormality Appearance) (Pt Warm) -Tenderness on Palpation (Nathalie-wound No Skin Appearance) -Ulcer Cleansing Wound Cleanser -Foul Odor after Cleansing No -Anesthetic Used 4% Lidocaine Solution 2. R Ischial post op -Combined with other wound No -Current Size (cm) - Length 7 -Current Size (cm) - Width 2 -Current Size (cm) - Depth 4 -Total Square Cm 14 -Photo Taken Yes -Tunneling No -Undermining/Tunneling No -Circular Undermining No -Exudate Amt Large -Exudate Type Serosanguineous -Wound Margin Distinct, Outline Attached -Granulation Amt Medium (34-66%) -Granulation Quality [place] Red -Slough/Fibrin Yes -Necrosis Amt Small (1-33%) -Necrotic Tissue Type Adherent Slough -Structure Exposed N/A -Texture (Nathalie-wound Skin Appearance) Assessed -Moisture (Nathalie-wound Skin Appearance Assessed ) -Color (Nathalie-wound Skin Appearance) Assessed -Temperature (Nathalie-wound Skin No Abnormality Appearance) (Pt Warm) -Tenderness on Palpation (Nathalie-wound No Skin Appearance) -Ulcer Cleansing Wound Cleanser -Foul Odor after Cleansing No -Anesthetic Used 4% Lidocaine Solution 07/04/18 12:12 Wound Center by Marina Rosenthal ischial post op sutures intact on inferior open wound noted superior with depth of 4 cm . Neto intact. Initialized on 07/04/18 12:12 - END OF NOTE WC - Nurse 2 - General Ulcer CM Notes Start: 06/14/18 09:11 Freq: Status: Active Protocol: Activity Type Activity Date Activity User E-Sign Co-Sign Detail Recorded Client Recorded Date Recorded By Document 07/04/18 12:30 MW [id number] 07/04/18 12:33 MW 07/04/18 12:30 Wound Center Nurse 2 [Procedure/Treatment] #4 LEFT HEEL -Time 12:30 -Correct Patient Yes -Correct Side, Site, Position Yes -Correct Procedure Yes -Procedure Performed No -Post Debridement Size (cm) - Length 0 -Post Debridement Size (cm) - Width 0 -Post Debridement Size (cm) - Depth 0 -Total Square Cm 0 -Wound/Ulcer Outcome Healed- Epithelialized #3- RT ELBOW -Time 12:31 -Correct Patient Yes -Correct Side, Site, Position Yes -Correct Procedure Yes -Procedure Performed Yes -Type of Procedure Debridement -Clinical Debridement Subcutaneous -Post Debridement Size (cm) - Length 0.6 -Post Debridement Size (cm) - Width 0.5 -Post Debridement Size (cm) - Depth 0.1 -Total Square Cm 0.30 -Wound/Ulcer Outcome Not Healed -Ulcer Cleansing Rinsed/ Irrigated with Saline -Foul Odor after Cleansing No -Bioengineered Tissue No -Bleeding Controlled with Pressure -Offloading No -Treatment Response Procedure Tolerated Well 2. R Ischial post op -Time 12:31 -Correct Patient Yes -Correct Side, Site, Position Yes -Correct Procedure Yes -Procedure Performed No -Wound/Ulcer Outcome Not Healed [See Physician Procedure note for Specifics] Musculoskeletal: No Muscle Wasting Neurological: Cranial nerves II-XII grossly intact Psych/Mental Status: Normal Affect Debridement Note Post-Debridement Measurements/Treatment WC - Nurse 2 - General Ulcer CM Notes Start: 06/14/18 09:11 Freq: Status: Active Protocol: Activity Type Activity Date Activity User E-Sign Co-Sign Detail Recorded Client Recorded Date Recorded By Document 06/14/18 09:33 MW [id number] 06/14/18 09:44 MW Document 07/04/18 12:30 MW [id number] 07/04/18 12:33 MW 06/14/18 07/04/18 09:33 12:30 Wound Center Nurse 2 #4 LEFT HEEL -Time 09:35 12:30 -Correct Patient Yes Yes -Correct Side, Site, Position Yes Yes -Correct Procedure Yes Yes -Procedure Performed Yes No -Type of Procedure Debridement -Clinical Debridement Subcutaneous -Post Debridement Size (cm) - Length 4.0 0 -Post Debridement Size (cm) - Width 3.5 0 -Post Debridement Size (cm) - Depth 0.1 0 -Total Square Cm 14.00 0 -Wound/Ulcer Outcome Not Healed Healed- Epithelialized -Ulcer Cleansing Rinsed/ Irrigated with Saline -Foul Odor after Cleansing No -Bioengineered Tissue No -Bleeding Controlled with NA -Offloading No -Treatment Response Procedure Tolerated Well #3- RT ELBOW -Time 09:34 12:31 -Correct Patient Yes Yes -Correct Side, Site, Position Yes Yes -Correct Procedure Yes Yes -Procedure Performed Yes Yes -Type of Procedure Debridement Debridement -Clinical Debridement Subcutaneous Subcutaneous -Post Debridement Size (cm) - Length 0.3 0.6 -Post Debridement Size (cm) - Width 0.3 0.5 -Post Debridement Size (cm) - Depth 0.1 0.1 -Total Square Cm 0.09 0.30 -Wound/Ulcer Outcome Not Healed Not Healed -Ulcer Cleansing Rinsed/ Rinsed/ Irrigated with Irrigated with Saline Saline -Foul Odor after Cleansing No No -Bioengineered Tissue No No -Bleeding Controlled with Pressure Pressure -Offloading No No -Treatment Response Procedure Procedure Tolerated Well Tolerated Well 2. R Ischial post op -Time 09:34 12:31 -Correct Patient Yes Yes -Correct Side, Site, Position Yes Yes -Correct Procedure Yes Yes -Procedure Performed Yes No -Type of Procedure Debridement -Clinical Debridement Subcutaneous -Post Debridement Size (cm) - Length 5.1 -Post Debridement Size (cm) - Width 3.0 -Post Debridement Size (cm) - Depth 1.2 -Total Square Cm 15.30 -Wound/Ulcer Outcome Not Healed Not Healed -Ulcer Cleansing Rinsed/ Irrigated with Saline -Foul Odor after Cleansing No -Bioengineered Tissue No -Bleeding Controlled with Pressure -Offloading No -Treatment Response Procedure Tolerated Well Pain Scale: 0-10 Numeric Is Patient Pain Free? Yes Wound debrided: Right elbow Wound Grade/Stage: Stage II Type of Debridement: Excisional debridement Anesthesia Used: 4% Lidocaine Solution Depth: Down to and including healthy tissue, in the subcutaneous layer Percentage of wound debrided: 100 Instrument Used: 3mm curette Tissue Removed: Slough and devitalized tissue Severity: Fat Layer Exposed Amount of bleeding with debridement: Mild Bleeding Controlled with: Pressure Patient tolerated procedure well Assessment/Plan Active Problems Skin ulcer of elbow with fat layer exposed (Chronic) Decubitus ulcer of left heel, stage 2 (Chronic) Right ischial pressure sore, 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) Assessment: Nonhealing right buttock pressure ulcer, stage IV. Osteomyelitis right pelvic region status post surgical debridement and chronic antibiotic. Right elbow ulcer. Left heel decubitus ulcer. Stage II. Plan: Left heel is healed. Right elbow worsened. Recent flap to decubitus ulcer with apparent wound breakdown. Debridement done only of the right elbow. Procedure was well-tolerated. Continue Promogran with Adaptic over top to right elbow. Change daily. Advised to follow-up with his surgeons at the [facility] as soon as possible to determine next course of management of his wound breakdown. Adaptic and gauze over the left heel. Offloading recommended. Increase protein intake also recommended. He was advised to call with any questions or concerns. Follow-up in 1 week. This note was generated with [employer] dictation software. It may contain incorrect words, spelling, and punctuation that were not noted in checking the note before signing.
--- NOTE | 2018-07-04 17:23 | PN.PCM_ITS ---
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 Current Visit: Yes Code(s): L98.492 - Non-pressure chronic ulcer of skin of other sites with fat layer exposed (3) Right ischial pressure sore, stage 4 Status: Chronic Current Visit: Yes Code(s): L89.314 - Pressure ulcer of right buttock, stage 4 (4) Soft tissue radionecrosis Status: Chronic Current Visit: Yes Code(s): L59.8 - Other specified disorders of the skin and subcutaneous tissue related to radiation; Y84.2 - Radiological procedure and radiotherapy as the cause of abnormal reaction of the patient, or of later complication, without mention of misadventure at the time of the procedure Type of Wound Chief Complaint: Nonhealing radiation pressure ulcer. History of Wound: Mr Rincon is a 63 yo very well known to the wound center and up to a couple of weeks ago, was following up with Dr. Mesa for his chronic right buttock stage IV ulcer. He also had sessions of HBO. He however was referred to a tertiary center due to concerns for osteomyelitis. He is status post surgical debridement and chronic antibiotics at the [facility]. He has done well since then. He returns here for continued wound care. He denies any concerns at this time. It appears he has been having a wet-to-dry dressing at his nursing facility. He denies any significant discharge from the wound. His VAC was discontinued. He denies chills, fever or feeling of unwell. Plan per patient is for a possible flap closure. Progress of Wound: Was at the [facility] and had flap closure of his decubitus ulcer. However, now appears to have a wound breakdown. Has not followed up since his surgery. - Physical Exam Vital Signs Temp Pulse Resp BP 97.8 F 72 18 107/53 L 07/04/18 11:56 07/04/18 11:56 07/04/18 11:56 07/04/18 11:56 General: Alert, Oriented x3, Cooperative, No apparent distress HEENT: Atraumatic, Normocephalic Oral: Moist Mucosa Neck: Supple Lungs: Normal air movement Abdomen: Non Tender Extremities: No cyanosis Skin: Ulcer/ Wound Wound Measurements and Assessment WC - Nurse 1 - General Ulcer Measurement Start: 06/14/18 09:11 Freq: Status: Active Protocol: Activity Type Activity Date Activity User E-Sign Co-Sign Detail Recorded Client Recorded Date Recorded By Document 07/04/18 11:56 RB [id number] 07/04/18 12:13 RB 07/04/18 11:56 Wound Center Nurse 1 [Ulcer Assessment] #4 LEFT HEEL -Combined with other wound No -Current Size (cm) - Length 0.1 -Current Size (cm) - Width 0.1 -Current Size (cm) - Depth 0.1 -Total Square Cm 0.01 -Photo Taken No -Tunneling No -Undermining/Tunneling No -Circular Undermining No -Exudate Amt None Present -Wound Margin Distinct, Outline Attached -Granulation Amt Large (67-100%) -Granulation Quality [place] -Slough/Fibrin Yes -Necrosis Amt Small (1-33%) -Necrotic Tissue Type Adherent Slough -Structure Exposed N/A -Texture (Nathalie-wound Skin Appearance) Assessed -Moisture (Nathalie-wound Skin Appearance Assessed ) -Color (Nathalie-wound Skin Appearance) Assessed -Temperature (Nathalie-wound Skin No Abnormality Appearance) (Pt Warm) -Tenderness on Palpation (Nathalie-wound No Skin Appearance) -Ulcer Cleansing Wound Cleanser -Foul Odor after Cleansing No -Anesthetic Used 4% Lidocaine Solution #3- RT ELBOW -Current Size (cm) - Length 0.3 -Current Size (cm) - Width 0.3 -Current Size (cm) - Depth 0.2 -Total Square Cm 0.09 -Photo Taken No -Tunneling No -Undermining/Tunneling No -Circular Undermining No -Exudate Amt Small -Exudate Type Serosanguineous -Wound Margin Distinct, Outline Attached -Granulation Amt Large (67-100%) -Granulation Quality [place] -Slough/Fibrin Yes -Necrosis Amt Small (1-33%) -Necrotic Tissue Type Adherent Slough -Structure Exposed N/A -Texture (Nathalie-wound Skin Appearance) Assessed -Moisture (Nathalie-wound Skin Appearance Assessed ) -Color (Nathalie-wound Skin Appearance) Assessed -Temperature (Nathalie-wound Skin No Abnormality Appearance) (Pt Warm) -Tenderness on Palpation (Nathalie-wound No Skin Appearance) -Ulcer Cleansing Wound Cleanser -Foul Odor after Cleansing No -Anesthetic Used 4% Lidocaine Solution 2. R Ischial post op -Combined with other wound No -Current Size (cm) - Length 7 -Current Size (cm) - Width 2 -Current Size (cm) - Depth 4 -Total Square Cm 14 -Photo Taken Yes -Tunneling No -Undermining/Tunneling No -Circular Undermining No -Exudate Amt Large -Exudate Type Serosanguineous -Wound Margin Distinct, Outline Attached -Granulation Amt Medium (34-66%) -Granulation Quality [place] Red -Slough/Fibrin Yes -Necrosis Amt Small (1-33%) -Necrotic Tissue Type Adherent Slough -Structure Exposed N/A -Texture (Nathalie-wound Skin Appearance) Assessed -Moisture (Nathalie-wound Skin Appearance Assessed ) -Color (Nathalie-wound Skin Appearance) Assessed -Temperature (Nathalie-wound Skin No Abnormality Appearance) (Pt Warm) -Tenderness on Palpation (Nathalie-wound No Skin Appearance) -Ulcer Cleansing Wound Cleanser -Foul Odor after Cleansing No -Anesthetic Used 4% Lidocaine Solution 07/04/18 12:12 Wound Center by Marina Rosenthal ischial post op sutures intact on inferior open wound noted superior with depth of 4 cm . Neto intact. Initialized on 07/04/18 12:12 - END OF NOTE WC - Nurse 2 - General Ulcer CM Notes Start: 06/14/18 09:11 Freq: Status: Active Protocol: Activity Type Activity Date Activity User E-Sign Co-Sign Detail Recorded Client Recorded Date Recorded By Document 07/04/18 12:30 MW [id number] 07/04/18 12:33 MW 07/04/18 12:30 Wound Center Nurse 2 [Procedure/Treatment] #4 LEFT HEEL -Time 12:30 -Correct Patient Yes -Correct Side, Site, Position Yes -Correct Procedure Yes -Procedure Performed No -Post Debridement Size (cm) - Length 0 -Post Debridement Size (cm) - Width 0 -Post Debridement Size (cm) - Depth 0 -Total Square Cm 0 -Wound/Ulcer Outcome Healed- Epithelialized #3- RT ELBOW -Time 12:31 -Correct Patient Yes -Correct Side, Site, Position Yes -Correct Procedure Yes -Procedure Performed Yes -Type of Procedure Debridement -Clinical Debridement Subcutaneous -Post Debridement Size (cm) - Length 0.6 -Post Debridement Size (cm) - Width 0.5 -Post Debridement Size (cm) - Depth 0.1 -Total Square Cm 0.30 -Wound/Ulcer Outcome Not Healed -Ulcer Cleansing Rinsed/ Irrigated with Saline -Foul Odor after Cleansing No -Bioengineered Tissue No -Bleeding Controlled with Pressure -Offloading No -Treatment Response Procedure Tolerated Well 2. R Ischial post op -Time 12:31 -Correct Patient Yes -Correct Side, Site, Position Yes -Correct Procedure Yes -Procedure Performed No -Wound/Ulcer Outcome Not Healed [See Physician Procedure note for Specifics] Musculoskeletal: No Muscle Wasting Neurological: Cranial nerves II-XII grossly intact Psych/Mental Status: Normal Affect Debridement Note Post-Debridement Measurements/Treatment WC - Nurse 2 - General Ulcer CM Notes Start: 06/14/18 09:11 Freq: Status: Active Protocol: Activity Type Activity Date Activity User E-Sign Co-Sign Detail Recorded Client Recorded Date Recorded By Document 06/14/18 09:33 MW [email or web address] 06/14/18 09:44 MW Document 07/04/18 12:30 MW [id number] 07/04/18 12:33 MW 06/14/18 07/04/18 09:33 12:30 Wound Center Nurse 2 #4 LEFT HEEL -Time 09:35 12:30 -Correct Patient Yes Yes -Correct Side, Site, Position Yes Yes -Correct Procedure Yes Yes -Procedure Performed Yes No -Type of Procedure Debridement -Clinical Debridement Subcutaneous -Post Debridement Size (cm) - Length 4.0 0 -Post Debridement Size (cm) - Width 3.5 0 -Post Debridement Size (cm) - Depth 0.1 0 -Total Square Cm 14.00 0 -Wound/Ulcer Outcome Not Healed Healed- Epithelialized -Ulcer Cleansing Rinsed/ Irrigated with Saline -Foul Odor after Cleansing No -Bioengineered Tissue No -Bleeding Controlled with NA -Offloading No -Treatment Response Procedure Tolerated Well #3- RT ELBOW -Time 09:34 12:31 -Correct Patient Yes Yes -Correct Side, Site, Position Yes Yes -Correct Procedure Yes Yes -Procedure Performed Yes Yes -Type of Procedure Debridement Debridement -Clinical Debridement Subcutaneous Subcutaneous -Post Debridement Size (cm) - Length 0.3 0.6 -Post Debridement Size (cm) - Width 0.3 0.5 -Post Debridement Size (cm) - Depth 0.1 0.1 -Total Square Cm 0.09 0.30 -Wound/Ulcer Outcome Not Healed Not Healed -Ulcer Cleansing Rinsed/ Rinsed/ Irrigated with Irrigated with Saline Saline -Foul Odor after Cleansing No No -Bioengineered Tissue No No -Bleeding Controlled with Pressure Pressure -Offloading No No -Treatment Response Procedure Procedure Tolerated Well Tolerated Well 2. R Ischial post op -Time 09:34 12:31 -Correct Patient Yes Yes -Correct Side, Site, Position Yes Yes -Correct Procedure Yes Yes -Procedure Performed Yes No -Type of Procedure Debridement -Clinical Debridement Subcutaneous -Post Debridement Size (cm) - Length 5.1 -Post Debridement Size (cm) - Width 3.0 -Post Debridement Size (cm) - Depth 1.2 -Total Square Cm 15.30 -Wound/Ulcer Outcome Not Healed Not Healed -Ulcer Cleansing Rinsed/ Irrigated with Saline -Foul Odor after Cleansing No -Bioengineered Tissue No -Bleeding Controlled with Pressure -Offloading No -Treatment Response Procedure Tolerated Well Pain Scale: 0-10 Numeric Is Patient Pain Free? Yes Wound debrided: Right elbow Wound Grade/Stage: Stage II Type of Debridement: Excisional debridement Anesthesia Used: 4% Lidocaine Solution Depth: Down to and including healthy tissue, in the subcutaneous layer Percentage of wound debrided: 100 Instrument Used: 3mm curette Tissue Removed: Slough and devitalized tissue Severity: Fat Layer Exposed Amount of bleeding with debridement: Mild Bleeding Controlled with: Pressure Patient tolerated procedure well Assessment/Plan Active Problems Skin ulcer of elbow with fat layer exposed (Chronic) Decubitus ulcer of left heel, stage 2 (Chronic) Right ischial pressure sore, 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) Assessment: Nonhealing right buttock pressure ulcer, stage IV. Osteomyelitis right pelvic region status post surgical debridement and chronic antibiotic. Right elbow ulcer. Left heel decubitus ulcer. Stage II. Plan: Left heel is healed. Right elbow worsened. Recent flap to decubitus ulcer with apparent wound breakdown. Debridement done only of the right elbow. Procedure was well-tolerated. Continue Promogran with Adaptic over top to right elbow. Change daily. Advised to follow-up with his surgeons at the [facility] as soon as possible to determine next course of management of his wound breakdown. Adaptic and gauze over the left heel. Offloading recommended. Increase protein intake also recommended. He was advised to call with any questions or concerns. Follow-up in 1 week. This note was generated with [employer] dictation software. It may contain incorrect words, spelling, and punctuation that were not noted in checking the note before signing.
== END 2018-07-10 23:59 ==
LOC: WC 11:15
PROVIDERS: Family Provider Internal Medicine; PCP Internal Medicine; Visit Provider Internal Medicine
DX: L59.8 Other specified disorders of the skin and subcutaneous tissue related to radiation (principal); Y84.2 Radiological procedure and radiotherapy as the cause of abnormal reaction of the patient, or of later complication, without mention of misadventure at the time of the procedure; L89.622 Pressure ulcer of left heel, stage 2; L89.314 Pressure ulcer of right buttock, stage 4; L98.492 Non-pressure chronic ulcer of skin of other sites with fat layer exposed
CPT/HCPCS: 11042; 11045

== ENCOUNTER 2018-08-28 14:41 | Outpatient (RCR) | payer MEDICAID, SELFPAY ==
[2018-08-28 14:45] VITALS: BP 116/58; PULSE 81; RESP 18; TEMP 37; BMI 27.8
--- NOTE | 2018-08-28 16:53 | PCM.WC.HP ---
(1) Skin ulcer of elbow with fat layer exposed Status: Chronic Current Visit: Yes Code(s): L98.492 - Non-pressure chronic ulcer of skin of other sites with fat layer exposed (2) Debility Status: Chronic Current Visit: Yes Code(s): R53.81 - Other malaise (3) Personal history of Methicillin resistant Staphylococcus aureus infection Status: Chronic Current Visit: Yes Code(s): Z86.14 - Personal history of Methicillin resistant Staphylococcus aureus infection (4) History of anal cancer Status: Chronic Current Visit: Yes Code(s): Z85.048 - Personal history of other malignant neoplasm of rectum, rectosigmoid junction, and anus (5) Right ischial pressure sore, stage 4 Status: Chronic Current Visit: Yes Code(s): L89.314 - Pressure ulcer of right buttock, stage 4 History of Present Illness Date of Service: 08/28/18 Chief Complaint: Nonhealing ulcer to right elbow History of Wound: Mr Rincon is a 63 yo very well known to the wound center for his stage IV right sacral ulcer with osteomyelitis. He has had HBOT for the osteomyelitis in the past. He is supposed to have a diverting colostomy tomorrow in preparation for a flap that is going to be done at the [facility]. He is currently living in an [facility] who referred him today for evaluation of his right elbow ulcer. Patient denies any fevers or changes in appetite. 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) Anal cancer (Chronic) Hepatitis C carrier (Chronic) COPD (chronic obstructive pulmonary disease) (Chronic) Anxiety and depression (Chronic) HTN (hypertension) (Chronic) HLD (hyperlipidemia) (Chronic) GERD (gastroesophageal reflux disease) (Chronic) PAD (peripheral artery disease) (Chronic) Surgical History: total hip arthroplasty - left, total knee arthroplasty, - - 12/30/16 Surgical preparation right gluteal/ischial area with excision radiation pressure sore abscess wound and partial ostectomy for osteomyelitis (52.5 cm2), 06/08/17 Excision radiation pressure sore abscess ulcer right ischial area, Stage IV, with partial ostectomy for osteomyelitis, 10/17/17 Excision radiation pressure sore abscess ulcer right ischial area, Stage IV, with partial ostectomy for osteomyelitis. Allergies/Adverse Reactions: Allergies chlorthalidone Allergy (Verified 08/22/18 08:21) Other famotidine Allergy (Verified 08/22/18 10:09) Unknown povidone-iodine [From Betadine] Allergy (Verified 08/22/18 08:21) Hives soap Adverse Reaction (Verified 08/22/18 08:21) Hives Wdsumpn-Cpe-Byx Reductase Inhibitor Adverse Reaction (Verified 08/22/18 08:21) MESSED MY LIVER UP adhesive tape Allergy (Uncoded 08/22/18 08:21) Itching/rash Home Medications: Ambulatory Orders Medication Instructions Recorded Aspirin [Aspirin, Baby] 81 mg PO DAILY@0800 03/22/16 Escitalopram Oxalate [Lexapro] 10 mg PO DAILY 03/22/16 Ezetimibe [Zetia] 10 mg PO DAILY 03/22/16 Fluticasone 0.05% [Flonase Nasal 2 spray NASAL DAILY 03/22/16 [place]] Multivitamin [Multiple Vitamins] 1 each PO DAILY 03/22/16 buPROPion XL [Wellbutrin Xl] 300 mg PO DAILY 03/22/16 busPIRone [Buspar] 5 mg PO TID 03/22/16 Tiotropium [place] [Spiriva 2 puff INHALATION DAILY 10/20/16 Respimat] Cholecalciferol (Vitamin D3) 1,000 unit PO DAILY 12/09/16 [Vitamin D3] Tizanidine HCl [Zanaflex] 4 mg PO Q8H PRN PRN 12/27/16 Gabapentin [Neurontin] 600 mg PO TID 01/19/18 Metoprolol Tartrate [Lopressor 50 mg PO BID 01/19/18 (beta curt)] Oxycodone HCl/Acetaminophen 2 tablet PO Q6H PRN PRN 03/19/18 [Percocet 10-325 mg Tablet] Pantoprazole Sodium [Protonix] 40 mg PO DAILY 03/19/18 Testosterone [Androderm 2mg/24 hr] 1 each TD DAILY 03/19/18 Lactobacillus Acidophilus 2 each PO TID 04/19/18 [Acidophilus] Diphenoxylate HCl/Atropine 1 each PO BID PRN PRN 05/03/18 [Lomotil 2.5-0.025 mg Tablet] Amlodipine [Norvasc] 5 mg PO DAILY 08/22/18 Ascorbic Acid [Vitamin C] 500 mg PO DAILY@0800 08/22/18 Ferrous Gluconate 324 mg PO BID 08/22/18 Zinc Sulfate 220 mg PO DAILY 08/22/18 Argin/Glut/Cahmb/Collag/Mv-Min 1 ea PO BID #1 powd.pack 08/30/18 [Chuy Packet] - Family History Maternal - - Denies any marked maternal or paternal family history including DM, HTN, HD. Paternal - - Denies any marked maternal or paternal family history including DM, HTN, HD. Smoking Status: Former smoker Review of Systems Constitutional: Denies: Chills, Fever, Weight Change Eyes: Denies: Pain, Vision Change HEENT: Denies: Difficulty Hearing, Difficulty Swallowing, Sinus Congestion Cardiovascular: Denies: Chest Pain, Palpitations Respiratory: Denies: Cough, Shortness of Breath Gastrointestinal: Denies: Diarrhea, Nausea, Vomiting Skin: Reports: Wounds - Right elbow ulcer. He has a sacral ulcer that we are not managing. Neurological: Denies: Change in Speech, Confusion, Difficulty swallowing, Incoordination Psychiatric: Denies: Anxiety Endocrine: Reports: Heat/ Cold Intolerance. Denies: Polydipsia, Polyuria - Physical Exam Vital Signs Temp Pulse Resp BP 98.6 F 81 18 116/58 L 08/28/18 14:45 08/28/18 14:45 08/28/18 14:45 08/28/18 14:45 General: Alert, Oriented x3, No apparent distress HEENT: Atraumatic Oral: Moist Mucosa Lungs: Normal air movement Cardiovascular: Regular rate Abdomen: Soft, Non Tender Extremities: No edema, Capillary Refill Less than 3 Seconds, Peripheral Pulses Normal Skin: Ulcer/ Wound - Right elbow ulcer Wound Measurements and Assessment WC - Nurse 1 - General Ulcer Measurement Start: 08/28/18 14:45 Freq: Status: Active Protocol: Activity Type Activity Date Activity User E-Sign Co-Sign Detail Recorded Client Recorded Date Recorded By Document 08/28/18 14:45 AN [id number] 08/28/18 15:05 08/28/18 14:45 Wound Center Nurse 1 [Ulcer Assessment] #5 right elbow -Current Size (cm) - Length 0.8 -Current Size (cm) - Width 0.8 -Current Size (cm) - Depth 0.8 -Total Square Cm 0.64 -Date of Last Picture (Recall this 08/28/18 field) -Photo Taken Yes -Undermining/Tunneling Yes -Undermining/Tunneling Starts (O' 12 clock) -Undermining/Tunneling Ends (O'clock) 12 -Maximum Distance (cm) 1.4 -Circular Undermining Yes -Classification - Thickness Full Thickness with Exposed Support Structure -Exudate Amt Medium -Exudate Type Serosanguineous -Wound Margin Distinct, Outline Attached -Granulation Amt Medium (34-66%) -Granulation Quality Red -Slough/Fibrin Yes -Necrosis Amt Medium (34-66%) -Necrotic Tissue Type Adherent Slough -Structure Exposed Fat Layer Exposed -Texture (Nathalie-wound Skin Appearance) Assessed, Localized Edema -Moisture (Nathalie-wound Skin Appearance Assessed ) -Color (Nathalie-wound Skin Appearance) Assessed, Erythema -Temperature (Nathalie-wound Skin No Abnormality Appearance) (Pt Warm) -Tenderness on Palpation (Nathalie-wound Yes Skin Appearance) -Ulcer Cleansing Rinsed/ Irrigated with Saline -Foul Odor after Cleansing No -Anesthetic Used 4% Lidocaine Solution WC - Nurse 2 - General Ulcer CM Notes Start: 08/28/18 14:45 Freq: Status: Active Protocol: Activity Type Activity Date Activity User E-Sign Co-Sign Detail Recorded Client Recorded Date Recorded By Document 08/28/18 15:40 [id number] 08/28/18 15:45 08/28/18 15:40 Wound Center Nurse 2 [Procedure/Treatment] -Time 15:41 -Correct Patient Yes -Correct Side, Site, Position Yes -Correct Procedure Yes -Procedure Performed Yes -Type of Procedure Debridement -Clinical Debridement Subcutaneous -Post Debridement Size (cm) - Length 0.8 -Post Debridement Size (cm) - Width 0.8 -Post Debridement Size (cm) - Depth 0.8 -Total Square Cm 0.64 -Wound/Ulcer Outcome Not Healed -Ulcer Cleansing Rinsed/ Irrigated with Saline -Foul Odor after Cleansing No -Bioengineered Tissue No -Bleeding Controlled with Pressure -Offloading No -Treatment Response Procedure Tolerated Well [See Physician Procedure note for Specifics] Pain Scale: 0-10 Numeric [Pain] -Is Patient Pain Free? Yes Musculoskeletal: Tenderness - right elbow Neurological: Neuro grossly intact Psych/Mental Status: Normal Affect Debridement Note Post-Debridement Measurements/Treatment WC - Nurse 2 - General Ulcer CM Notes Start: 08/28/18 14:45 Freq: Status: Active Protocol: Activity Type Activity Date Activity User E-Sign Co-Sign Detail Recorded Client Recorded Date Recorded By Document 08/28/18 15:40 [id number] 08/28/18 15:45 08/28/18 15:40 Wound Center Nurse 2 #5 right elbow -Time 15:41 -Correct Patient Yes -Correct Side, Site, Position Yes -Correct Procedure Yes -Procedure Performed Yes -Type of Procedure Debridement -Clinical Debridement Subcutaneous -Post Debridement Size (cm) - Length 0.8 -Post Debridement Size (cm) - Width 0.8 -Post Debridement Size (cm) - Depth 0.8 -Total Square Cm 0.64 -Wound/Ulcer Outcome Not Healed -Ulcer Cleansing Rinsed/ Irrigated with Saline -Foul Odor after Cleansing No -Bioengineered Tissue No -Bleeding Controlled with Pressure -Offloading No -Treatment Response Procedure Tolerated Well Pain Scale: 0-10 Numeric Is Patient Pain Free? Yes Wound debrided: right elbow Laterality: Right Type of Debridement: Excisional debridement Anesthesia Used: 5% Lidocaine Gel Depth: Down to and including healthy tissue, in the subcutaneous layer Percentage of wound debrided: 100 Instrument Used: 3mm curette Tissue Removed: Subcutaneous tissue and slough Severity: Fat Layer Exposed Amount of bleeding with debridement: Mild Bleeding Controlled with: Pressure Patient tolerated procedure well Assessment/Plan Active Problems Skin ulcer of elbow with fat layer exposed (Chronic) Hypotension (Acute) Debility (Chronic) Personal history of Methicillin resistant Staphylococcus aureus infection (Chronic) History of anal cancer (Chronic) Right ischial pressure sore, stage 4 (Chronic) Assessment: Right elbow ulcer. History of MRSA. Nonhealing right buttock pressure ulcer, stage IV. History of osteomyelitis Plan: Patient has a right elbow ulcer that he has had for at least 6 months. We will start him on Aquacel silver that is cut and placed into the ulcer to help wick the moisture out of the ulcer. We obtained wound cultures today. Depending on what the results are will depend if he will require antibiotic therapy. The patient is scheduled for a diverting colostomy tomorrow with Dr. De La Rosa. He then is going to have a flap to cover his sacral ulcer at the [facility]. I did not look at his sacral ulcer today because it is being managed by [facility]. He will follow up in 2 weeks. Code Visit Office Visits / Consults: [id number] OV L4 Est - 25 modifier [id number]: [id number] Sue subq tissue 20 sq cm/<
== END 2018-09-09 23:59 ==
LOC: WC 14:41
PROVIDERS: Family Provider Internal Medicine; PCP Internal Medicine; Visit Provider Nurse Practitioner Family
DX: L89.214 Pressure ulcer of right hip, stage 4 (principal); Z86.14 Personal history of Methicillin resistant Staphylococcus aureus infection; Z85.048 Personal history of other malignant neoplasm of rectum, rectosigmoid junction, and anus; L98.492 Non-pressure chronic ulcer of skin of other sites with fat layer exposed; F41.9 Anxiety disorder, unspecified; E78.5 Hyperlipidemia, unspecified; I10 Essential (primary) hypertension; K21.9 Gastro-esophageal reflux disease without esophagitis; I73.9 Peripheral vascular disease, unspecified; Z79.899 Other long term (current) drug therapy; Z87.891 Personal history of nicotine dependence
CPT/HCPCS: 87070; 87075; 87077; 87205

== ENCOUNTER 2018-08-29 09:25 | Inpatient (IN) | payer MEDICAID, SELFPAY ==
--- NOTE | 2018-08-21 06:06 | HP.PCM_ITS ---
History and Physical Date of Admission: 08/29/18 HISTORY AND PHYSICAL ? Justin Rincon 1955 ? ? REFERRING PHYSICIAN: ??Luan Dangelo MD ? CHIEF COMPLAINT: ??discuss colostomy ? HPI: The patient is a 63 year old male with a complaint of?a nonhealing stage IV decubitus. ? The patient has a past history of anal cancer in 2002. ?This was treated by radiation and chemotherapy. ?The patient noted some issues with fecal incontinence following that successful treatment. ?He has found in the past that if he is able to maintain a bowel regime with fiber and Imodium he can maintain continence. ? In December,, the patient developed an abscess along the rightichial?region there was felt to be complicated by radiation injury to the pelvic area. ?Incision and drainage was performed and the patient was referred to plastic surgery. ?He has since had multiple procedures multiple debridements in an attempt to manage the area. ?Most recently, he underwent a flap repair which is also failed. ? Recent CT scan demonstrates a large defect in the right area with defect extending pretty much to the margin of the anal rectal area and deep involving the initial bone. ? The patient notes prior to this episode he was having increasing difficulty maintaining his continence but since this decubitus ulcer has commenced, he's been on multiple antibiotics. ?He has frequent bowel movements on good days 5 or so and often has incontinence causing soiling into the wound. ?He is referred for colostomy construction prior to attempted his next decubitus surgical procedure ? I performed upper and lower endoscopy on October 18, 2016. 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 ?Colonoscopy was unremarkable with the exception was felt to be radiation changes in the lower rectum. ?Upper endoscopy demonstrated a small hiatal hernia and mild gastritis. ? The patient had a previous left-sided hip and knee replacement. ?He has since had issues related to dislocation of his hip prosthesis. ?With all his current medical issues he is generally bedbound. ?He presents today transported via stretcher from his extended care facility ? ? PAST?MEDICAL?HISTORY PAST MEDICAL HISTORY Diagnosis Date ? Anal cancer (HCC) ? ? Calcaneal spur 09/21/2011 ? Chronic osteomyelitis of pelvic region, right (HCC) 2016 ? Complete tear of left rotator cuff 06/10/2014 ? 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 COPD (chronic obstructive pulmonary disease) (HCC) ? ? DDD (degenerative disc disease), cervical 08/08/2013 ? Diarrhea ? ? 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 Fracture of left femur (HCC) 04/19/2018 ? Hepatitis C carrier (HCC) ? ? Herpes zoster without mention of complication 11/10/2005 ? History of total left hip arthroplasty 09/10/2015 ? Hypotestosteronism 07/18/2013 ? Knee joint replacement by other means 07/06/2012 ? L common femoral thromboendarterectomy w/ saphenous vein patch angioplasty, 11/10/08 11/10/2008 ? 53 year old male with h/o hep C and HTN presenting from the his PCP's office with a cold, pulseless foot. ?Pt states for the past three weeks, he has had pain in his left leg. ?He states he had a hernia surgery on the right inguinal and after that, he had pain in his entire right leg. ?He states yesterday, the pain migrated from his leg to his left foot. He states he has numbness and tingling thro ? Lumbar stenosis 12/30/2011 ? Malignant neoplasm of anus, unspecified site ? ? chemo and radiation 2002 ? Mental disorder ? ? MRSA infection 2017 ? Neuropathy (HCC) ? ? PVD (peripheral vascular disease) (HCC) ? ? Spondylolisthesis of lumbar region 12/30/2011 ? Unspecified essential hypertension ? ? Urethral stricture 04/09/2013 ? Urethral stricture unspecified 02/11/2010 ? ? PAST?SURGICAL?HISTORY PAST SURGICAL HISTORY Procedure Laterality Date ? ANOSCOPY ? 07/22/2002 ? colon cancer chemo/rads. ? COLONOSCOP W/ OR W/O BRSH SPEC ? 03/03/05 ? Colonoscopy ? COLONOSCOP W/ OR W/O BRSH SPEC ? 03/16/06 ? COLONOSCOP W/ OR W/O BRSH SPEC ? 09/19/2011 ? Colonoscopy ? COLONOSCOP W/ OR W/O BRSH SPEC ? 10/19/2016 ? Colonoscopy ??[facility] ? EGD W/O OR W/BRUSH/WASH ? 10/19/2016 ? EGD ?[facility] ? I &?D, ABCESS COMPLEX ?MULTIP ? 12/26/08 ? Incision and drainage and evacuation of abscess, left groin ? PAST SURGICAL HISTORY OF ? ? ? orif left ankle ? PAST SURGICAL HISTORY OF ? 11/10/2008 ? ?Left common femoral endarterectomy with vein patch angioplasty ? PAST SURGICAL HISTORY OF ? 2010? ? urethroplasty ? PAST SURGICAL HISTORY OF Right ? ? artery stent ? PICC LINE INSERT/CONSULT ? 06/24/2018 ? ? ? REPAIR ING HERNIA,5+Y/O,REDUCIBL ? ? Right inguinal hernia ? S PORTACAT [id number] Right 2002 ? TOTAL HIP REPLACEMENT Left 08/28/2015 ? Hip replacement, total ? TOTAL HIP REPLACEMENT Left 06/17/2016 ? Hip replacement, total-revision ? TOTAL KNEE REPLACEMENT ? 05/11/12 ? Knee replacement, total left ? ? CURRENT?MEDICATIONS ? Current Outpatient Medications: nystatin (MYCOSTATIN) cream Apply 1 application to affected area twice daily. guaiFENesin (MUCINEX) 600 mg 12 hr tablet Take 1 tablet by mouth every 12 hours. dextran 70-hypromellose (NATURAL BALANCE TEARS) 0.1-0.3 % ophthalmic solution Use 1 Drop in the left eye as needed. bacitracin-polymyxin B (POLYSPORIN) 500-10,000 unit/gram oint Apply 1 application to affected area three times daily. meropenem (MERREM) 1 g in NaCl 0.9% 100 mL MB+ Inject 100 mL intravenously every 8 hours. vancomycin (VANCOCIN) 1.5 g in D5W 250 mL Inject 250 mL intravenously q 12 HR. acetaminophen (TYLENOL) 325 mg tablet Take 2 tablets by mouth every 6 hours as needed. benzocaine-menthol (CEPACOL) 15-3.6 mg lozg Use 1 Lozenge as instructed every 2 hours as needed. cyclobenzaprine (FLEXERIL) 5 mg tablet Take 1 tablet by mouth three times daily. diphenhydrAMINE (BENADRYL) 25 mg capsule Take 1 capsule by mouth every 6 hours as needed for Itching/Rash. meropenem (MERREM) 500 mg in NaCl 0.9% 100 mL MB+ Inject 100 mL intravenously every 6 hours. ondansetron, PF, (ZOFRAN) 4 mg/2 mL soln Inject 4 mg intravenously every 6 hours as needed. vancomycin (VANCOCIN) 1.25 g in D5W 250 mL Inject 250 mL intravenously q 12 HR. amLODIPine (NORVASC) 5 mg tablet Take 1 tablet by mouth once daily. ferrous gluconate 324 mg (37.5 mg iron) tablet Take 324 mg by mouth twice daily. diphenoxylate-atropine (LOMOTIL) 2.5-0.025 mg per tablet Take 2 tablets by mouth four times daily as needed for up to 14 days. ascorbic acid, vitamin C, (VITAMIN C) 500 mg tablet Take 500 mg by mouth once daily. enoxaparin (LOVENOX) 40 mg/0.4 mL syrg Inject 0.4 mL subcutaneously q 24 HR. triamterene-hydrochlorothiazide (MAXZIDE-25) 37.5-25 mg per tablet Take 0.5 tablets by mouth once daily. tiotropium (SPIRIVA RESPIMAT) 2.5 mcg/actuation inhaler Inhale 2 Puffs as instructed once daily. buPROPion XL (WELLBUTRIN XL) 300 mg 24 hr tablet Take 1 tablet by mouth once daily. ezetimibe (ZETIA) 10 mg tablet Take 1 tablet by mouth daily at bedtime. aspirin 81 mg chewable tablet Take 1 tablet by mouth once daily. Lactobacillus acidophilus (BACID) cap Take 2 capsules by mouth three times daily. busPIRone (BUSPAR) 5 mg tablet Take 1 tablet by mouth three times daily. cholecalciferol (VITAMIN D3) 1,000 unit tab tablet Take 1 tablet by mouth once daily. escitalopram oxalate (LEXAPRO) 10 mg tablet Take 1 tablet by mouth once daily. gabapentin (NEURONTIN) 600 mg tablet Take 1 tablet by mouth three times daily. guaiFENesin (ROBITUSSIN) 100 mg/5 mL syrup Take 5 mL by mouth every 4 hours as needed. metoprolol tartrate, short acting, (LOPRESSOR) 50 mg tablet Take 1 tablet by mouth twice daily. pantoprazole DR (PROTONIX) 40 mg tablet Take 1 tablet by mouth DAILY (6 AM). sodium hypochlorite (DAKIN'S QUARTER STRENGTH) 0.125 % soln Irrigate 50 mL as instructed once daily. tiZANidine (ZANAFLEX) 4 mg tablet Take 1 tablet by mouth every 8 hours as needed. ibuprofen (MOTRIN) 800 mg tablet Take 1 tablet by mouth every 8 hours as needed for Pain. Take with food. testosterone (ANDRODERM) 2 mg/24 hour Apply 1 Patch as directed once daily for 90 days. FIBER LAXATIVE, PSYLLIUM HUSK, 0.52 gram capsule Take 1 capsule by mouth three times daily before meals. multivitamin (DAILY MULTIPLE) tablet Take 1 tablet by mouth once daily. fluticasone (FLONASE) 50 mcg/actuation nasal spray Use 2 Sprays in each nostril once daily as needed for Cold/Allergy Symptoms. Rinse mouth after use. ? No current facility-administered medications for this visit.? ? ALLERGIES:?Adhesive; Atorvastatin; Betadine [Povidone-Iodine]; Chlorthalidone; Famotidine; Soap ? PERSONAL HISTORY:? SOCIAL?HISTORY Social History ??Socioeconomic History ?Marital status: Single ?Spouse name: Not on file ?Number of children: 0 ?Years of education: Not on file ?Highest education level: Not on file ??Social Needs ?Financial resource strain: Not on file ?Food insecurity - worry: Not on file ?Food insecurity - inability: Not on file ?Transportation needs - medical: Not on file ?Transportation needs - non-medical: Not on file ??Occupational History ?Occupation: retired ??Tobacco Use ?Smoking status: Former Smoker ?Packs/day: 1.00 ?Years: 25.00 ?Pack years: 25 ?Types: Cigarettes ?Quit date: 03/13/2004 ?Years since quittin.4 ?Smokeless tobacco: Never Used ?Tobacco comment: quit 11/16 ??Substance and Sexual Activity ?Alcohol use: No ?Frequency: Never ?Comment: none since 2006 ?Drug use: No ?Sexual activity: Never ??Other Topics ?Concerns: ?Not on file ??Social History Narrative ?Not on file ? FAMILY HISTORY:? FAMILY?HISTORY FAMILY HISTORY Problem Relation Age of Onset ? Diabetes Mother ? ? Diabetes Father ?diverticulitis/gout ? None Brother ? ? None Brother ? ? REVIEW OF SYMPTOMS: ? ? PHYSICAL EXAMINATION: ? General: ?The patient is 63 year old male, well nourished, well hydrated in no acute distress. ?The patient is oriented to time, place, and person. ? VITALS:?Blood pressure 118/70, pulse 70, temperature 36.6 ?C (97.9 ?F), temperature source Temporal Artery, resp. rate 16, height 170.2 cm (5' 7), weight 78.9 kg (174 lb), SpO2 95 %. ? HEENT: ?Normal cephalic, ataumatic, pupils are equally round, sclera are anicteric, mucous membranes are moist, oropharynx is clear. ?Neck has no masses, asymmetry or lymphadenopathy. ?Thyroid is unremarkable. ? Respiratory: ?Clear to auscultation and percussion. ?Normal respiratory excursion and pattern. ? Cardiac: ?Examination is regular rate and rhythm. ? Abdominal exam: ?Soft, nontender, ?with no palpable masses. ?No hepatosplenomegaly. ?No palpable hernias. ? Rectal exam:?exam deferred ? Extremities: ?no clubbing, cyanosis or edema. ?No adenopathy. ? Other: ? ? LABORATORY VALUES: As Noted ? RADIOLOGIC STUDIES: ?As Noted ? Assessment ? IMPRESSION:?Complicated decubitus ulcer, ? PLAN:???I plan to perform a laparoscopic sigmoid colostomy-end Mitchell style.??The planned surgical procedure was discussed extensively with the patient. The risks, benefits and anticipated outcomes of the procedure, the risks and benefits of the alternatives to the procedure, and the roles and tasks of the personnel to be involved, were discussed with the patient. ?My staff has also explained the procedure in understandable terms and the patient was given the option to take printed material concerning the planned procedure. ?The patient had the opportunity to ask questions concerning the planned procedure. ?The patient freely consents to the planned procedure. ? I discussed with him the most likely we would consider this a permanent colostomy. ?The patient is not currently ready to consider a permanent colostomy and is hoping that this will allow his wound area to heal. ?With an end Mitchell type colostomy if the patient's mobility improves and his peritoneum does heal completely we could consider takedown. ?My concern in?discussing that possibility with the patient is,?even his prior history of anorectal issues likely secondary to radiation?I am?still concerned and?anticipate that he would have recurring incontinence issues ? Anticipated Surgical Procedure/ CPT Code:?Laparoscopic colectomy End Raudel's - [id number] ? Anticipated Anesthetic:?General ? Patient weight:??Blood pressure 118/70, pulse 70, temperature 36.6 ?C (97.9 ?F), temperature source Temporal Artery, resp. rate 16, height 170.2 cm (5' 7), weight 78.9 kg (174 lb), SpO2 95 %.?BMI: ?Body mass index is 27.25 kg/m?. ? Planned antibiotic:?Cefotetan?2gm IVPB classroom paraprofessional to OR ? SCDs needed -?Yes ? Fumigator And Sterilizer Needed -?Yes ?? ? Diagnoses:?(L89.304) Decubitus ulcer of ischial area, stage 4, unspecified laterality (HCC) ?(primary encounter diagnosis) (R15.9) Incontinence of feces, unspecified fecal incontinence type ? My findings have been communicated to Dr.??LUAN DANGELO MD?via shared medical record. ?This note will be forwarded to Dr. LUAN DANGELO MD. ? Return to Clinic: The patient is instructed to follow-up with me?1 week post operatively. ? This note was partially generated using [employer] voice recognition system, and there may be some incorrect words, spellings, and punctuation that were not noted in checking the note before saving.? Nicholas Nunez MD
[2018-08-28 14:45] VITALS: BMI 27.8
[2018-08-29] VITALS (7 sets, daily range): BP systolic 97–115; BP diastolic 50–64; PULSE 74–106; RESP 16–18; TEMP 36.6–36.9; O2SAT 94–97; BMI 27.2
[2018-08-29 08:36] LABS: Prothrombin Time Fingerstick 11.9 SEC (11.9-14.4)
[2018-08-29 08:48] LABS: Osmolality, Serum 268 mOsm/KG (280-301)
[2018-08-29 09:04] LABS: Anion Gap 10 (5-15); BUN 15 mg/dL (7-18); Calcium,Total 8.7 mg/dL (8.5-10.1); Chloride 94 mmol/L (98-107); Creatinine, Serum 0.56 mg/dL (0.70-1.30); EST Glomerular Filtration Rate 158 mL/min (>60); Est Glom Filt Rate - Afr Amer 191 mL/min (>60); Glucose 88 mg/dL (74-106); Sodium Level 131 mmol/L (136-145); Thyroid Stim Hormone (TSH) 2.91 uIU/mL (0.358-3.74)
[2018-08-29 11:13] LABS: Urine Chloride 21 mmol/L (Not Establ.); Urine Sodium 25 mmol/L (Not Establ.)
[2018-08-29 11:18] LABS: Osmolality, Urine 163 mOsm/KG
[2018-08-29] MEDS: Escitalopram Oxalate 10 MG Tablet PO (11:42)
[2018-08-29] MEDS: Fluticasone 0.05% 1 SPRAY NASAL.SRY 2 SPRAY NASAL (11:42)
[2018-08-29] MEDS: Ezetimibe 10 MG Tablet PO (11:46)
[2018-08-29] MEDS: buPROPion (XL) 300 MG TABLET.XL PO (11:46)
[2018-08-29] MEDS: Gabapentin 600 MG Tablet PO ×2 (11:47→16:50)
[2018-08-29] MEDS: Ibuprofen 400 MG Tablet 800 MG PO ×2 (11:47→16:51)
--- NOTE | 2018-08-29 11:57 | PCM.PN.BLA ---
Progress Note Hospitalist consult for hyponatremia. Requested by Dr. Nunez. The patient is a 63-year-old male with a history of anal cancer diagnosed in 2002. He was treated with radiation and chemotherapy. 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 Nieto. The wound is non-healing due to persistent fecal incontinence contaminating the wound and Dr. Nunez was consulted for a diverting colostomy. Surgery was cancelled due to hyponatremia. He had a failed flap done at [facility] in June. He is a resident of a [facility]. Currently getting W to D dressings BID. Has had a wound vac in the past but, had trouble maintaining the seal which should be better after the colostomy. Past medical history is significant for history of MRSA infection, osteomyelitis of the right inferior pubic ramus, chronic debility, anxiety/depression, hypertension, hyperlipidemia, GERD, hepatitis C and peripheral vascular disease. He was in the hospital in March 2018 for acute osteomyelitis and at that time had hyponatremia which was thought to be due to excessive water drinking. Medication reconciliation was reviewed. He is on Maxide as an outpatient. Current vital signs are temp 97.8, pulse rate 80, blood pressure is 97/50, respiratory rate is 18 and he is 96 to 97% saturated on room air. BP's was 113/64 this AM. All recent lab was reviewed. The sodium today was 131 with a potassium of 4.0 and a chloride of 94. Serum bicarb is 27 and the BUN is 15 with a creatinine of 0.56. Serum osmolality is mildly decreased to 68. Urine osmolality is 163. The BUN/creatinine ratio is elevated at 27. The diuretic invalidates the results of the urine sodium and the osmolarity. PHYSICAL EXAM: GENERAL: alert, oriented X 3, Cooperative, NAD, lying flat on back in bed ORAL: dry mucosa, no mucosal lesions NECK: No JVD, supple, trachea midline, + BL carotid bruits LUNGS: CTA, symmetric chest expansion HEART: RRR, Normal S1 and S2, no rub, no gallop ABDOMEN: soft, NT, ND, BS present, no guarding with palpation EXTREMITIES: no edema, no cyanosis, no calf tenderness, peripheral pulses are 3/3 bilaterally SKIN: No rashes, Stage 4 R ischial decub with hypergranulation tissue in the base. No odor. no periwound erythema, no visible bone, wound margins are turned under and pale NEUROLOGIC: no focal neurologic deficits PSYCH: appropriate, normal affect, pleasant Impressions 1. hyponatremia secondary to dehydration related to Maxzide used for BP control 2. dehydration 3. HTN - borderline hypotensive today due to dehydration 4. hx of anal CA treated with radiation and chemo 5. PVD RLE as a result of radiation NS 1 L bolus now Increase the IV rate recheck a BMP and mag/phos at 5 PM and in the AM would benefit from debridement this admission of the decub and I think we should try a wound vac again since the seal will be easier to maintain after the diverting colostomy Add Vit C, Chuy for wound healing. Has a low air loss mattress at the [facility] He will always be at risk for decubitus ulcers because of the radiation he received years ago.......the damage to the endothelial cells and the fibroblast increase over time. Code Visit Inpatient E&M: 68074 Subs Hosp L2
[2018-08-29 12:31] LABS: Bedside Glucose 103 mg/dL (70-110)
[2018-08-29 13:56] LABS: Bacteria 0 SEEN /hpf (None Seen); Mucous, Urine 0 SEEN /hpf (<or=2+); Red Blood Cells-Urine 0 SEEN /hpf (0-5); White Blood Cells 0 SEEN /hpf (0-5)
[2018-08-29] MEDS: 0.9% Normal Saline 1,000 ML 500 ML IV (13:56)
[2018-08-29] MEDS: busPIRone 5 MG Tablet PO ×2 (13:57→21:33)
[2018-08-29 14:00] LABS: Color, Urine Yellow (Yellow); Glucose, Dipstick Normal (Normal); Ketone-Dipstick Negative (Negative); Leukocyte Esterase-Dipstick Negative /ul (Negative); Nitrite-Dipstick Negative (Negative); Occult Blood-Urine Negative /ul (Negative); Protein-Dipstick Negative (Negative); Specific Gravity, Urine 1.005 (1.002-1.030); Urine Bilirubin Dipstick Negative (Negative); Urine Clarity Clear (Clear); Urine Urobilinogen Normal (Normal)
[2018-08-29 14:11] LABS: Squamous Epithelial Cells - UA 0-5 SEEN /hpf (0-5)
--- NOTE | 2018-08-29 14:16 | NURSING ---
wound photo: right buttock
--- NOTE | 2018-08-29 14:16 | NURSING ---
wound photo: right elbow
[2018-08-29] MEDS: 0.9% Normal Saline 1,000 ML 125 ML IV (16:45)
[2018-08-29] MEDS: Ferrous Gluconate 324 MG Tablet PO (16:51)
[2018-08-29 16:56] LABS: Bedside Glucose 96 mg/dL (70-110)
[2018-08-29 17:26] LABS: Hematocrit 31.8 % (40-54); Hemoglobin 10.6 g/dl (13.0-16.5); Mean Corp Hgb Conc 33.3 g/gl (32-36); Mean Corpuscular Hgb 27.2 pg (27.0-32.0); Mean Corpuscular Volume 81.5 fL (80-94); Mean Platelet Vol. 7.2 fl (6.2-12.0); Platelet Count 410 K/mm3 (150-450); RBC Distribution Width CV 15.8 % (11.6-14.6); RBC Distribution Width SD 45.7 fl (35.1-43.9); White Blood Count 6.3 K/mm3 (4.4-11.0)
[2018-08-29 17:48] LABS: Scan Indicated on CBC? Y/N NO
[2018-08-29 17:57] LABS: Anion Gap 4 (5-15); BUN 10 mg/dL (7-18); BUN/Creat Ratio 19.2 RATIO (10-20); Calcium,Total 8.4 mg/dL (8.5-10.1); Chloride 101 mmol/L (98-107); Creatinine, Serum 0.52 mg/dL (0.70-1.30); EST Glomerular Filtration Rate 169 mL/min (>60); Est Glom Filt Rate - Afr Amer 205 mL/min (>60); Estimated Creatinine Clearance 134.18 ml/min; Glucose 89 mg/dL (74-106); Phosphorus 3.1 mg/dL (2.5-4.9); Potassium 4.1 mmol/L (3.5-5.1); Sodium Level 133 mmol/L (136-145)
[2018-08-29] MEDS: Metoprolol Tartrate 50 MG Tablet PO (21:33)
[2018-08-29] MEDS: Nystatin Powder 15gm Bottle 1 APPLIC TOPICAL (21:34)
[2018-08-30] VITALS (9 sets, daily range): BP systolic 103–151; BP diastolic 61–72; PULSE 74–84; RESP 16–18; TEMP 36.6–36.9; O2SAT 94–96
[2018-08-30] MEDS: 0.9% Normal Saline 1,000 ML 125 ML IV ×4 (00:43→23:09)
[2018-08-30 02:36] LABS: Bedside Glucose 108 mg/dL (70-110)
[2018-08-30 06:35] LABS: Absolute Lymphocyte Count 1.36 X10^3/ul (0.83-4.51); Absolute Neutrophil Count 3.8 X10^3/uL (2.0-7.7); Basophil# 0.03 X10^3/uL; Basophil% 0.5 % (0-1); Eosinophil# 0.31 X10^3/uL; Eosinophils% 4.7 % (0-5); Hematocrit 32.2 % (40-54); Hemoglobin 10.7 g/dl (13.0-16.5); Lymphocyte # 1.36 X10^3/ul (4.0); Lymphocyte % 20.6 % (19-41); Mean Corp Hgb Conc 33.2 g/gl (32-36); Mean Corpuscular Hgb 27.4 pg (27.0-32.0); Mean Corpuscular Volume 82.4 fL (80-94); Mean Platelet Vol. 7.5 fl (6.2-12.0); Monocyte# 0.98 X10^3/uL; Monocyte% 14.9 % (0-10); Neutrophil # 3.77 X10^3/uL (2.7-7.7); Neutrophil % 57.2 % (47-70); POSITIVE COUNT YES; POSITIVE DIFFERENTIAL NO; POSITIVE MORPHOLOGY YES; Platelet Count 411 K/mm3 (150-450); RBC Distribution Width CV 16.1 % (11.6-14.6); RBC Distribution Width SD 47.1 fl (35.1-43.9); Red Blood Count 3.91 M/mm3 (4.6-6.2); White Blood Count 6.6 K/mm3 (4.4-11.0)
[2018-08-30 06:58] LABS: Pathologist Review May foll
[2018-08-30 07:06] LABS: ALB/GLOB Ratio 0.9 RATIO (0.9-2.4); AST(SGOT) 47 U/L (15-37); Alanine Aminotransfer ALT/SGPT 65 U/L (16-61); Albumin, Serum 3.1 g/dL (3.2-5.0); Alkaline Phosphatase 94 U/L (45-117); Anion Gap 5 (5-15); BUN 10 mg/dL (7-18); BUN/Creat Ratio 19.9 RATIO (10-20); Calcium,Total 8.2 mg/dL (8.5-10.1); Chloride 102 mmol/L (98-107); EST Glomerular Filtration Rate 177 mL/min (>60); Est Glom Filt Rate - Afr Amer 214 mL/min (>60); Estimated Creatinine Clearance 139.54 ml/min; Globulin 3.6 g/dL (2.2-4.2); Glucose 99 mg/dL (74-106); Magnesium 1.9 mg/dL (1.6-2.6); Phosphorus 3.1 mg/dL (2.5-4.9); Protein, Total 6.7 g/dL (6.4-8.2); Sodium Level 135 mmol/L (136-145)
[2018-08-30] MEDS: Ipratropium 0.5 MG/2.5 ML SOLUTION INHALATION (07:10)
[2018-08-30] MEDS: Fluticasone 0.05% 1 SPRAY NASAL.SRY 2 SPRAY NASAL (10:20)
--- NOTE | 2018-08-30 10:21 | CASEMGMT ---
SHAHANA reviewed chart, pt is here from [facility]. SHAHANA spoke w/Lynette in admissions, she states pt will need a new precert to return. As of now, pt is there short term, came there initially for IV antibiotics. SHAHANA spoke w/pt, confirmed his plan will be to return to [facility] after this hospitalization. SHAHANA faxed updates to Lynette at [place], and will continue to follow. RONNIE Blair
[2018-08-30] MEDS: Metoprolol Tartrate 50 MG Tablet PO ×2 (10:23→22:06)
[2018-08-30] MEDS: oxyCODONE 5 MG Tablet PO (10:23)
[2018-08-30] MEDS: Nystatin Powder 15gm Bottle 1 APPLIC TOPICAL ×2 (10:24→22:06)
[2018-08-30] MEDS: Ibuprofen 400 MG Tablet 800 MG PO ×2 (11:47→17:40)
[2018-08-30] MEDS: Gabapentin 600 MG Tablet PO ×2 (11:48→17:40)
[2018-08-30] MEDS: busPIRone 5 MG Tablet PO ×2 (11:49→22:05)
[2018-08-30] MEDS: Ferrous Gluconate 324 MG Tablet PO ×2 (11:49→17:40)
[2018-08-30] MEDS: Aspirin 81 MG TAB.CHEW PO (11:49)
[2018-08-30] MEDS: Multivitamins,Therapeutic Tablet 1 TABLET PO (11:49)
[2018-08-30] MEDS: Ascorbic Acid 500 MG Tablet PO (11:50)
[2018-08-30] MEDS: Escitalopram Oxalate 10 MG Tablet PO (11:50)
[2018-08-30] MEDS: Pantoprazole Sodium 40 MG Tablet PO (11:51)
[2018-08-30] MEDS: buPROPion (XL) 300 MG TABLET.XL PO (11:51)
[2018-08-30] MEDS: amLODIPine 5 MG Tablet PO (11:51)
[2018-08-30] MEDS: Enoxaparin 40 MG/0.4 ML Syringe SC (11:52)
[2018-08-30] MEDS: Ezetimibe 10 MG Tablet PO (11:52)
--- NOTE | 2018-08-30 11:57 | NURSING ---
pot stated he is not diabetic and refused glucose check
--- NOTE | 2018-08-30 12:24 | PN.SURG_ITS ---
Subjective: no complaints - Physical Exam General: Alert, Oriented x3, Cooperative Lungs: Clear to auscultation, Normal air movement Cardiovascular: Regular rate, No murmurs Abdomen: Bowel Sounds Present, Soft Vital Signs Temp Pulse Resp BP Pulse Ox 98.5 F 74 16 108/64 95 08/30/18 11:55 08/30/18 11:55 08/30/18 11:55 08/30/18 11:55 08/30/18 11:55 Oxygen Delivery Method Room Air Weight: 78.925 kg Body Mass Index (BMI) 27.2 Intake and Output for Last 24 Hours 08/28/18 08/29/18 08/30/18 23:59 23:59 23:59 Intake Total 2149 / 3676 2351 / 2351 Output Total 1400 / 1400 1925 / 1925 Balance 749 / 2276 426 / 426 Laboratory Tests Past 24 Hrs 08/29/18 08/29/18 08/29/18 11:00 17:05 17:05 WBC 6.3 RBC 3.90 L Hgb 10.6 L Hct 31.8 L MCV 81.5 MCH 27.2 MCHC 33.3 RDW 15.8 H RDW Differential 45.7 H Plt Count 410 MPV 7.2 Immature Gran % (Auto) Neut % (Auto) Lymph % (Auto) [place] % (Auto) Eos % (Auto) Baso % (Auto) Absolute Neuts (auto) Absolute Lymphs (auto) Total Counted Diff Path Review Sodium 133 L Potassium 4.1 Chloride 101 Carbon Dioxide 28.0 Anion Gap 4 L BUN 10 Creatinine 0.52 L Estim Creat Clear Calc 134.18 Est GFR (MDRD) Af Amer 205 Est GFR (MDRD) Non-Af 169 BUN/Creatinine Ratio 19.2 Glucose 89 Calcium 8.4 L Phosphorus 3.1 Magnesium 2.0 Total Bilirubin AST ALT Alkaline Phosphatase Total Protein Albumin Globulin Albumin/Globulin Ratio Urine Color Yellow Urine Clarity Clear Urine pH 7.0 Ur Specific [place] 1.005 Urine Protein Negative Urine Glucose (UA) Normal Urine Ketones Negative Urine Occult Blood Negative Urine Nitrite Negative Urine Bilirubin Negative Urine Urobilinogen Normal Ur Leukocyte Esterase Negative Urine RBC 0 SEEN Urine WBC 0 SEEN Ur Squamous Epith Cells 0-5 SEEN Urine Bacteria 0 SEEN Urine Mucus 0 SEEN 08/30/18 08/30/18 05:15 05:15 WBC 6.6 RBC 3.91 L Hgb 10.7 L Hct 32.2 L MCV 82.4 MCH 27.4 MCHC 33.2 RDW 16.1 H RDW Differential 47.1 H Plt Count 411 MPV 7.5 Immature Gran % (Auto) 2.100 H Neut % (Auto) 57.2 Lymph % (Auto) 20.6 [place] % (Auto) 14.9 H Eos % (Auto) 4.7 Baso % (Auto) 0.5 Absolute Neuts (auto) 3.8 Absolute Lymphs (auto) 1.36 Total Counted Not Reportable Diff Path Review May foll Sodium 135 L Potassium 4.0 Chloride 102 Carbon Dioxide 28.0 Anion Gap 5 BUN 10 Creatinine 0.50 L Estim Creat Clear Calc 139.54 Est GFR (MDRD) Af Amer 214 Est GFR (MDRD) Non-Af 177 BUN/Creatinine Ratio 19.9 Glucose 99 Calcium 8.2 L Phosphorus 3.1 Magnesium 1.9 Total Bilirubin 0.20 AST 47 H ALT 65 H Alkaline Phosphatase 94 Total Protein 6.7 Albumin 3.1 L Globulin 3.6 Albumin/Globulin Ratio 0.9 Urine Color Urine Clarity Urine pH Ur Specific [place] Urine Protein Urine Glucose (UA) Urine Ketones Urine Occult Blood Urine Nitrite Urine Bilirubin Urine Urobilinogen Ur Leukocyte Esterase Urine RBC Urine WBC Ur Squamous Epith Cells Urine Bacteria Urine Mucus POC Glucose 08/29/18 08/29/18 08/29/18 22:57 16:48 12:06 POC Glucose 108 96 103 Medical Necessity - Tobacco Use Smoking Status: Former smoker Tobacco Use: Non-smoker Assessment/Plan All Active Problems Pneumonia (Acute) SBO (small bowel obstruction) (Acute) electrolyte/osmolarity abnormalities, chronic decubitus, need for diverting colostomy. patient was evaluated by hospitalist service/Dr. Leslie - felt that most likely the patient's electrode abnormalities and decreased osmolaritywere secondary to dehydration and Maxide use. The Maxide was held and the patient was given saline. I spoke with Dr. Song who understands the improved electrolyte panel. I discussed with the patient that I will be out of town as of tomorrow afternoon and felt it be most prudent to have him return to the [facility] and planned for colostomy placement this coming Monday
--- NOTE | 2018-08-30 12:41 | CASEMGMT ---
Pt's surgery has been postponed to Monday. SW called [facility] to see if they can start working on precert, as if they were able to get precert pt could return to the facility. As per Lynette, they can try but may not get precert as pt does not have skilled needs at this time and pt was about to be sent home from the facility. Insurance authorized more time as they knew pt was having surgery and would need to come back, as per Lynette. SW inquired about pt's wound care, and will fax this information to her. Lynette will be looking into this and let this SW know. If pt does not get an authorization by tomorrow or is denied, pt would stay here through the weekend for surgery Monday. Pt has been at [facility] for 117 days. It would not be appropriate to send pt home for the weekend only to come back Monday and then go back to [facility] after the surgery. RONNIE Blair
--- NOTE | 2018-08-30 12:56 | PCM.TXEXTCAR ---
- Diet 08/29/18 09:26 Diet: Regular Diet Food consistency:: Regular Liquid Consistency:: Regular/Thin - Wound(s) right buttock Wound Type: Pressure Injury Dressing Change: Wet to Dry Dressing right elbow Wound Type: small open wound Dressing Change: AntiMicrobial (Aquacel AG, etc) - Suggestions for Active Care Change Position every (hours): 2 - he should be moved from side to side every 2 hours.......he should NOT be sitting up in the bed on his backside.....it is putting too much pressure on the ischial decubitus ulcer. Positions to Avoid: sitting.....even in bed on a low air loss mattress he should not be sitting - Problem/Diagnosis (1) Hypotension Status: Acute Current Visit: Yes (2) Hyponatremia Status: Acute Comment: secondary to dehydration due to diuretics. Current Visit: No - Allergies/Procedures Done in Hospital Allergies/Adverse Reactions: Allergies chlorthalidone Allergy (Verified 08/22/18 08:21) Other famotidine Allergy (Verified 08/22/18 10:09) Unknown povidone-iodine [From Betadine] Allergy (Verified 08/22/18 08:21) Hives soap Adverse Reaction (Verified 08/22/18 08:21) Hives Prhcwyb-Twa-Rcm Reductase Inhibitor Adverse Reaction (Verified 08/22/18 08:21) MESSED MY LIVER UP adhesive tape Allergy (Uncoded 08/22/18 08:21) Itching/rash Procedures: None - Type of Care/Length of Stay Estimated LOS: More Than 30 Days Type of Care Needed: Skilled Rehab Potential: Fair Prognosis: Fair - Additional Orders/Day of Discharge Additional Orders: with the history of raadiation to the rectum and perianal area he has vascular disease in the anal area. The decubitus ulcer will never heal if he is sitting up more than 20-30 minutes 2-3 times a day. While in the hospital every time I saw him he had increased the HOB and was sitting on his buttocks. I suspect you are going to have to constantly reinforce with him that he can not sit on his buttocks and expect this to heal. He was very dehydrated at presentation to the hospital and was hypotensive with a low sodium. peter is why the surgery was cancelled. The Maxzide was discontinued and should not be restarted. On the day of DC his BP is normal. IF the blood pressure after return to correction is consistently > 140/85 I would ioncrease the Amlodipine to 10 mg daily. No Motrin in preparation for surgery on Monday09/03/18. H&P will serve as current which was dated: 08/21/18 Day of Discharge: 08/30/18 - Dietary and Speech Recommendations Dietitian Recommendations/Changes: Rec Chuy bid (order from pharmacy) to help w/ wound healing. - Follow Up Care Primary Care Physician: Winnie Gonzales MD [Primary Care Provider] -
--- NOTE | 2018-08-30 13:16 | PCM.PN.BLA ---
Progress Note hospitalist note: Afebrile, vital signs stable. The last 2 blood pressures have been 108/64 following metoprolol and 134/61 prior to metoprolol. Heart rate is within normal limits. He is 95 to 96% saturated on room air. All lab was personally reviewed. White blood cell count remains normal at 6.6 with unremarkable differential. Hemoglobin is stable at 10.7 and platelets are within normal limits. The sodium has come up to 135 with hydration. BUN is 10 and his creatinine is 0.5. Every time I go in his room he is sitting up in bed on his buttocks watching TV. He repositions himself and is not compliant with offloading the pressure from the stage 4 R ischial decubitus. GENERAL: alert, oriented X 3, Cooperative, NAD, lying flat on back in bed ORAL: dry mucosa, no mucosal lesions NECK: No JVD, supple, trachea midline, + BL carotid bruits LUNGS: CTA, symmetric chest expansion HEART: RRR, Normal S1 and S2, no rub, no gallop ABDOMEN: soft, NT, ND, BS present, no guarding with palpation EXTREMITIES: no edema, no cyanosis, no calf tenderness, peripheral pulses are 3/3 bilaterally SKIN: No rashes, Stage 4 R ischial decub with hypergranulation tissue in the base. No odor. no periwound erythema, no visible bone, wound margins are turned under and pale NEUROLOGIC: no focal neurologic deficits PSYCH: appropriate, normal affect, pleasant, I did explain to him that no matter which doctor cares for the wound and whether or not he has a wound vac or another flap.......if he does not stay off his backside it will all fail. According to nursing , who is very familiar with this pt, he is always picking at his backside and when he had a wound vac he would remove the packing and disrupt the seal. Impressions 1. hyponatremia secondary to dehydration related to Maxzide used for BP control - resolved 2. dehydration - improved 3. HTN hx 4. hx of anal CA treated with radiation and chemo 5. PVD RLE as a result of radiation 6. Hypotension-resolved 7. non-compliance with offloading the area of the stage 4 decubitus......? mental competence? No Maxzide at DC. If the BP goes up would increase the Amlodipine to 10 mg daily. Code Visit Inpatient E&M: 18974 Subs Hosp L2
[2018-08-30 22:16] LABS: Bedside Glucose 104 mg/dL (70-110)
[2018-08-31] VITALS (7 sets, daily range): BP systolic 130–152; BP diastolic 65–76; PULSE 72–79; RESP 16; TEMP 36.5–36.9; O2SAT 94–96
[2018-08-31] MEDS: busPIRone 5 MG Tablet PO ×2 (05:33→14:27)
[2018-08-31 06:17] LABS: Bedside Glucose 97 mg/dL (70-110)
[2018-08-31] MEDS: 0.9% Normal Saline 1,000 ML 125 ML IV ×2 (06:44→14:26)
[2018-08-31] MEDS: Ipratropium 0.5 MG/2.5 ML SOLUTION INHALATION (07:18)
[2018-08-31] MEDS: Ibuprofen 400 MG Tablet 800 MG PO ×3 (07:35→16:47)
[2018-08-31] MEDS: Multivitamins,Therapeutic Tablet 1 TABLET PO (07:36)
[2018-08-31] MEDS: Aspirin 81 MG TAB.CHEW PO (07:36)
[2018-08-31] MEDS: Gabapentin 600 MG Tablet PO ×3 (07:36→16:47)
[2018-08-31] MEDS: Ferrous Gluconate 324 MG Tablet PO ×2 (07:36→16:47)
[2018-08-31] MEDS: Ascorbic Acid 500 MG Tablet PO (07:37)
--- NOTE | 2018-08-31 08:28 | NURSING ---
Low air loss mattress ordered for patient. patient has been encouraged numerous times to keep pressure off of his buttocks to allow the wound to heal. pt has not been compliant with this and is most likely why the wound has not healed.
[2018-08-31] MEDS: amLODIPine 5 MG Tablet PO (09:41)
[2018-08-31] MEDS: Fluticasone 0.05% 1 SPRAY NASAL.SRY 2 SPRAY NASAL (09:41)
[2018-08-31] MEDS: buPROPion (XL) 300 MG TABLET.XL PO (09:41)
[2018-08-31] MEDS: Pantoprazole Sodium 40 MG Tablet PO (09:41)
[2018-08-31] MEDS: Ezetimibe 10 MG Tablet PO (09:42)
[2018-08-31] MEDS: Enoxaparin 40 MG/0.4 ML Syringe SC (09:42)
[2018-08-31] MEDS: Escitalopram Oxalate 10 MG Tablet PO (09:47)
[2018-08-31] MEDS: Metoprolol Tartrate 50 MG Tablet PO (09:47)
[2018-08-31] MEDS: Nystatin Powder 15gm Bottle 1 APPLIC TOPICAL (09:49)
--- NOTE | 2018-08-31 10:19 | PCM.PN.SRG ---
Patient Problems: Active and Suspected Problems Hypotension (Acute) Subjective: no complaints - Physical Exam General: Alert, Oriented x3, Cooperative Lungs: Clear to auscultation, Normal air movement Cardiovascular: Regular rate, No murmurs Abdomen: Bowel Sounds Present, Soft, Non Tender Vital Signs Temp Pulse Resp BP Pulse Ox 98.4 F 73 16 152/72 H 95 08/31/18 08:03 08/31/18 09:47 08/31/18 08:03 08/31/18 08:03 08/31/18 08:03 Oxygen Delivery Method Room Air Weight: 78.925 kg Body Mass Index (BMI) 27.2 Intake and Output for Last 24 Hours 08/29/18 08/30/18 08/31/18 23:59 23:59 23:59 Intake Total 2149 / 3676 3656 / 3656 2866 / 2866 Output Total 1400 / 1400 2625 / 2625 3025 / 3025 Balance 749 / 2276 1031 / 1031 -159 / -159 POC Glucose 08/31/18 08/30/18 06:11 22:09 POC Glucose 97 104 Medical Necessity - Tobacco Use Smoking Status: Former smoker Tobacco Use: Non-smoker Assessment/Plan All Active Problems Pneumonia (Acute) SBO (small bowel obstruction) (Acute) Hypotension (Acute) Hyponatremia (Acute) electrolyte/osmolarity abnormalities, chronic decubitus, need for diverting colostomy. patient was evaluated by hospitalist service/Dr. Leslie - felt that most likely the patient's electrode abnormalities and decreased osmolaritywere secondary to dehydration and Maxide use. The Maxide was held and the patient was given saline. I spoke with Dr. Song who understands the improved electrolyte panel. I planned for colostomy placement this coming Monday
--- NOTE | 2018-08-31 10:30 | CASEMGMT ---
Addendum entered by Dorene Gordon 08/31/18 15:52: Precert attained. RN let pt know, SHAHANA faxed all discharge instructions to [facility]. SHAHANA texted Dr. Leslie to let her know, insulation cupola charger paged surgeon to let him him know. SHAHANA set up 5:30pm ambulance w/[facility]. SW let [facility] and RN here know. RN will let pt know time of pickup. No further needs. RONNIE Blair Original Note: SHAHANA spoke w/Karla at [facility]. She states insurance requesting information regarding cancellation of surgery. SHAHANA faxed information to Karla to pass on to insurance, will let SW know if they will authorize pt to return to SNF until surgery on Monday. RONNIE Blair
[2018-09-03 08:16] LABS: Anion Gap 5 (5-15); BUN 13 mg/dL (7-18); BUN/Creat Ratio 21.3 RATIO (10-20); Chloride 95 mmol/L (98-107); Creatinine, Serum 0.61 mg/dL (0.70-1.30); EST Glomerular Filtration Rate 141 mL/min (>60); Est Glom Filt Rate - Afr Amer 171 mL/min (>60); Estimated Creatinine Clearance 114.38 ml/min; Glucose 107 mg/dL (74-106); Potassium 4.6 mmol/L (3.5-5.1); Sodium Level 128 mmol/L (136-145)
--- NOTE | 2018-09-04 06:33 | PCM.DC.SUM ---
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 Patient had electrolyte abnormalities and his surgical procedure was cancelled. He was seen by the hospitalist service, his electrolytes were corrected and he was discharged back to his [facility] for planned readmission next week. - Physical Exam General: Alert, Oriented x3, Cooperative Lungs: Clear to auscultation, Normal air movement Cardiovascular: Regular rate, No murmurs Abdomen: Bowel Sounds Present, Soft, Non Tender Vital Signs Temp Pulse Resp BP Pulse Ox 98 F 79 16 137/76 H 95 08/31/18 14:35 08/31/18 14:35 08/31/18 14:35 08/31/18 14:35 08/31/18 14:35 Oxygen Delivery Method Room Air Weight: 78.925 kg Body Mass Index (BMI) 27.2 Laboratory Tests Past 24 Hrs 09/03/18 07:58 Sodium 128 L Potassium 4.6 Chloride 95 L Carbon Dioxide 28.0 Anion Gap 5 BUN 13 Creatinine 0.61 L Estim Creat Clear Calc 114.38 Est GFR (MDRD) Af Amer 171 Est GFR (MDRD) Non-Af 141 BUN/Creatinine Ratio 21.3 H Glucose 107 H Calcium 9.0 Discharge Diet: No Restrictions Home Medications: Medications to take at Discharge Aspirin [Aspirin, Baby] 81 mg PO DAILY@0800 03/22/16 Escitalopram Oxalate [Lexapro] 10 mg PO DAILY 03/22/16 Ezetimibe [Zetia] 10 mg PO DAILY 03/22/16 Fluticasone 0.05% [Flonase Nasal [place]] 2 spray NASAL DAILY 03/22/16 Multivitamin [Multiple Vitamins] 1 each PO DAILY 03/22/16 buPROPion XL [Wellbutrin Xl] 300 mg PO DAILY 03/22/16 busPIRone [Buspar] 5 mg PO TID 03/22/16 Tiotropium [place] [Spiriva Respimat] 2 puff INHALATION DAILY 10/20/16 Cholecalciferol (Vitamin D3) [Vitamin D3] 1,000 unit PO DAILY 12/09/16 Tizanidine HCl [Zanaflex] 4 mg PO Q8H PRN PRN 12/27/16 Gabapentin [Neurontin] 600 mg PO TID 01/19/18 Metoprolol Tartrate [Lopressor (beta curt)] 50 mg PO BID 01/19/18 Oxycodone HCl/Acetaminophen [Percocet 10-325 mg Tablet] 2 tablet PO Q6H PRN PRN 03/19/18 Pantoprazole Sodium [Protonix] 40 mg PO DAILY 03/19/18 Testosterone [Androderm 2mg/24 hr] 1 each TD DAILY 03/19/18 Lactobacillus Acidophilus [Acidophilus] 2 each PO TID 04/19/18 Diphenoxylate HCl/Atropine [Lomotil 2.5-0.025 mg Tablet] 1 each PO BID PRN PRN 05/03/18 Amlodipine [Norvasc] 5 mg PO DAILY 08/22/18 Ascorbic Acid [Vitamin C] 500 mg PO DAILY@0800 08/22/18 Ferrous Gluconate 324 mg PO BID 08/22/18 Zinc Sulfate 220 mg PO DAILY 08/22/18 Argin/Glut/Cahmb/Collag/Mv-Min [Chuy Packet] 1 ea PO BID 09/03/18 Primary Care Physician: Winnie Gonzales MD [Primary Care Provider] - Medical Necessity - Tobacco Use Smoking Status: Former smoker Tobacco Use: Non-smoker Meaningful Use Info Meaningful Use Diagnoses (Choose all that apply): None applicable
== END 2018-08-31 18:12 | disposition skilled nursing facility (03) | DRG 254 ==
LOC: MS3 09:56
PROVIDERS: Anesthesiology; Internal Medicine; Admitting Provider Surgery; Family Provider Internal Medicine; PCP Internal Medicine; Referring Provider Surgery; Visit Provider Surgery
DX: R15.9 Full incontinence of feces (principal); E87.1 Hypo-osmolality and hyponatremia; L89.314 Pressure ulcer of right buttock, stage 4; Z53.09 Procedure and treatment not carried out because of other contraindication; T50.2X5A Adverse effect of carbonic-anhydrase inhibitors, benzothiadiazides and other diuretics, initial encounter; E86.0 Dehydration; I95.9 Hypotension, unspecified; Z87.891 Personal history of nicotine dependence; Z92.3 Personal history of irradiation; Z85.048 Personal history of other malignant neoplasm of rectum, rectosigmoid junction, and anus; Z92.21 Personal history of antineoplastic chemotherapy; L89.214 Pressure ulcer of right hip, stage 4; Z86.14 Personal history of Methicillin resistant Staphylococcus aureus infection; Z79.899 Other long term (current) drug therapy; L98.492 Non-pressure chronic ulcer of skin of other sites with fat layer exposed; I73.9 Peripheral vascular disease, unspecified; I10 Essential (primary) hypertension; E78.5 Hyperlipidemia, unspecified; K21.9 Gastro-esophageal reflux disease without esophagitis; F41.9 Anxiety disorder, unspecified
CPT/HCPCS: 11042; 36415; 36416; 80048; 80053; 81001; 82436; 82962; 83735; 83930; 83935; 84100; 84133; 84300; 84443; 85025; 85027; 85610; 87070; 87075; 87077; 87186; 87205; 94640; 97802; 99213; J7030; J7040; J7120; G0463

== ENCOUNTER 2018-09-03 07:41 | Inpatient (IN) | payer MEDICAID, SELFPAY ==
[2018-08-29 10:00] VITALS: BMI 27.2
[2018-09-03] VITALS (7 sets, daily range): BP systolic 101–136; BP diastolic 49–71; PULSE 72–98; RESP 16–18; TEMP 36.8–37.1; O2SAT 92–98; BMI 27.7; BMI 28.0
--- NOTE | 2018-09-03 08:59 | HP.PCM_ITS ---
History and Physical Date of Admission: 09/03/18 HISTORY AND PHYSICAL ? Justin Rincon 1955 ? ? REFERRING PHYSICIAN: ??Luan Dangelo MD ? CHIEF COMPLAINT: ??discuss colostomy ? HPI: The patient is a 63 year old male with a complaint of?a nonhealing stage IV decubitus. ? The patient has a past history of anal cancer in 2002. ?This was treated by radiation and chemotherapy. ?The patient noted some issues with fecal incontinence following that successful treatment. ?He has found in the past that if he is able to maintain a bowel regime with fiber and Imodium he can maintain continence. ? In December,, the patient developed an abscess along the rightichial?region there was felt to be complicated by radiation injury to the pelvic area. ?Incision and drainage was performed and the patient was referred to plastic surgery. ?He has since had multiple procedures multiple debridements in an attempt to manage the area. ?Most recently, he underwent a flap repair which is also failed. ? Recent CT scan demonstrates a large defect in the right area with defect extending pretty much to the margin of the anal rectal area and deep involving the initial bone. ? The patient notes prior to this episode he was having increasing difficulty maintaining his continence but since this decubitus ulcer has commenced, he's been on multiple antibiotics. ?He has frequent bowel movements on good days 5 or so and often has incontinence causing soiling into the wound. ?He is referred for colostomy construction prior to attempted his next decubitus surgical procedure ? I performed upper and lower endoscopy on October 18, 2016. 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 ?Colonoscopy was unremarkable with the exception was felt to be radiation changes in the lower rectum. ?Upper endoscopy demonstrated a small hiatal hernia and mild gastritis. ? The patient had a previous left-sided hip and knee replacement. ?He has since had issues related to dislocation of his hip prosthesis. ?With all his current medical issues he is generally bedbound. ?He presents today transported via stretcher from his extended care facility. He was scheduled for surgical procedure on August 29. when he presented his sodium was I believe 126 from the extended care facility the day before. His surgical procedure was postponed. He was seen by the hospitalist service. His Maxide was held and he was given sodium chloride. His sodium improved and he was returned back to his extended care facility. He returns today and his preoperative sodium is again 128. I spoke with Dr. Caballero and we agreed to again postpone his surgery until tomorrow. ? ? PAST?MEDICAL?HISTORY PAST MEDICAL HISTORY Diagnosis Date ? Anal cancer (HCC) ? ? Calcaneal spur 09/21/2011 ? Chronic osteomyelitis of pelvic region, right (HCC) 2016 ? Complete tear of left rotator cuff 06/10/2014 ? 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 COPD (chronic obstructive pulmonary disease) (HCC) ? ? DDD (degenerative disc disease), cervical 08/08/2013 ? Diarrhea ? ? 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 Fracture of left femur (HCC) 04/19/2018 ? Hepatitis C carrier (HCC) ? ? Herpes zoster without mention of complication 11/10/2005 ? History of total left hip arthroplasty 09/10/2015 ? Hypotestosteronism 07/18/2013 ? Knee joint replacement by other means 07/06/2012 ? L common femoral thromboendarterectomy w/ saphenous vein patch angioplasty, 11/10/08 11/10/2008 ? 53 year old male with h/o hep C and HTN presenting from the his PCP's office with a cold, pulseless foot. ?Pt states for the past three weeks, he has had pain in his left leg. ?He states he had a hernia surgery on the right inguinal and after that, he had pain in his entire right leg. ?He states yesterday, the pain migrated from his leg to his left foot. He states he has numbness and tingling thro ? Lumbar stenosis 12/30/2011 ? Malignant neoplasm of anus, unspecified site ? ? chemo and radiation 2002 ? Mental disorder ? ? MRSA infection 2017 ? Neuropathy (HCC) ? ? PVD (peripheral vascular disease) (HCC) ? ? Spondylolisthesis of lumbar region 12/30/2011 ? Unspecified essential hypertension ? ? Urethral stricture 04/09/2013 ? Urethral stricture unspecified 02/11/2010 ? ? PAST?SURGICAL?HISTORY PAST SURGICAL HISTORY Procedure Laterality Date ? ANOSCOPY ? 07/22/2002 ? colon cancer chemo/rads. ? COLONOSCOP W/ OR W/O BRSH SPEC ? 03/03/05 ? Colonoscopy ? COLONOSCOP W/ OR W/O BRSH SPEC ? 03/16/06 ? COLONOSCOP W/ OR W/O BRSH SPEC ? 09/19/2011 ? Colonoscopy ? COLONOSCOP W/ OR W/O BRSH SPEC ? 10/19/2016 ? Colonoscopy ??[facility] ? EGD W/O OR W/BRUSH/WASH ? 10/19/2016 ? EGD ?[facility] ? I &?D, ABCESS COMPLEX ?MULTIP ? 12/26/08 ? Incision and drainage and evacuation of abscess, left groin ? PAST SURGICAL HISTORY OF ? ? ? orif left ankle ? PAST SURGICAL HISTORY OF ? 11/10/2008 ? ?Left common femoral endarterectomy with vein patch angioplasty ? PAST SURGICAL HISTORY OF ? 2010? ? urethroplasty ? PAST SURGICAL HISTORY OF Right ? ? artery stent ? PICC LINE INSERT/CONSULT ? 06/24/2018 ? ? ? REPAIR ING HERNIA,5+Y/O,REDUCIBL ? ? Right inguinal hernia ? S PORTACATH [id number] Right 2002 ? TOTAL HIP REPLACEMENT Left 08/28/2015 ? Hip replacement, total ? TOTAL HIP REPLACEMENT Left 06/17/2016 ? Hip replacement, total-revision ? TOTAL KNEE REPLACEMENT ? 05/11/12 ? Knee replacement, total left ? ? CURRENT?MEDICATIONS ? Current Outpatient Medications: nystatin (MYCOSTATIN) cream Apply 1 application to affected area twice daily. guaiFENesin (MUCINEX) 600 mg 12 hr tablet Take 1 tablet by mouth every 12 hours. dextran 70-hypromellose (NATURAL BALANCE TEARS) 0.1-0.3 % ophthalmic solution Use 1 Drop in the left eye as needed. bacitracin-polymyxin B (POLYSPORIN) 500-10,000 unit/gram oint Apply 1 application to affected area three times daily. meropenem (MERREM) 1 g in NaCl 0.9% 100 mL MB+ Inject 100 mL intravenously every 8 hours. vancomycin (VANCOCIN) 1.5 g in D5W 250 mL Inject 250 mL intravenously q 12 HR. acetaminophen (TYLENOL) 325 mg tablet Take 2 tablets by mouth every 6 hours as needed. benzocaine-menthol (CEPACOL) 15-3.6 mg lozg Use 1 Lozenge as instructed every 2 hours as needed. cyclobenzaprine (FLEXERIL) 5 mg tablet Take 1 tablet by mouth three times daily. diphenhydrAMINE (BENADRYL) 25 mg capsule Take 1 capsule by mouth every 6 hours as needed for Itching/Rash. meropenem (MERREM) 500 mg in NaCl 0.9% 100 mL MB+ Inject 100 mL intravenously every 6 hours. ondansetron, PF, (ZOFRAN) 4 mg/2 mL soln Inject 4 mg intravenously every 6 hours as needed. vancomycin (VANCOCIN) 1.25 g in D5W 250 mL Inject 250 mL intravenously q 12 HR. amLODIPine (NORVASC) 5 mg tablet Take 1 tablet by mouth once daily. ferrous gluconate 324 mg (37.5 mg iron) tablet Take 324 mg by mouth twice daily. diphenoxylate-atropine (LOMOTIL) 2.5-0.025 mg per tablet Take 2 tablets by mouth four times daily as needed for up to 14 days. ascorbic acid, vitamin C, (VITAMIN C) 500 mg tablet Take 500 mg by mouth once daily. enoxaparin (LOVENOX) 40 mg/0.4 mL syrg Inject 0.4 mL subcutaneously q 24 HR. triamterene-hydrochlorothiazide (MAXZIDE-25) 37.5-25 mg per tablet Take 0.5 tablets by mouth once daily. tiotropium (SPIRIVA RESPIMAT) 2.5 mcg/actuation inhaler Inhale 2 Puffs as instructed once daily. buPROPion XL (WELLBUTRIN XL) 300 mg 24 hr tablet Take 1 tablet by mouth once daily. ezetimibe (ZETIA) 10 mg tablet Take 1 tablet by mouth daily at bedtime. aspirin 81 mg chewable tablet Take 1 tablet by mouth once daily. Lactobacillus acidophilus (BACID) cap Take 2 capsules by mouth three times daily. busPIRone (BUSPAR) 5 mg tablet Take 1 tablet by mouth three times daily. cholecalciferol (VITAMIN D3) 1,000 unit tab tablet Take 1 tablet by mouth once daily. escitalopram oxalate (LEXAPRO) 10 mg tablet Take 1 tablet by mouth once daily. gabapentin (NEURONTIN) 600 mg tablet Take 1 tablet by mouth three times daily. guaiFENesin (ROBITUSSIN) 100 mg/5 mL syrup Take 5 mL by mouth every 4 hours as needed. metoprolol tartrate, short acting, (LOPRESSOR) 50 mg tablet Take 1 tablet by mouth twice daily. pantoprazole DR (PROTONIX) 40 mg tablet Take 1 tablet by mouth DAILY (6 AM). sodium hypochlorite (DAKIN'S QUARTER STRENGTH) 0.125 % soln Irrigate 50 mL as instructed once daily. tiZANidine (ZANAFLEX) 4 mg tablet Take 1 tablet by mouth every 8 hours as needed. ibuprofen (MOTRIN) 800 mg tablet Take 1 tablet by mouth every 8 hours as needed for Pain. Take with food. testosterone (ANDRODERM) 2 mg/24 hour Apply 1 Patch as directed once daily for 90 days. FIBER LAXATIVE, PSYLLIUM HUSK, 0.52 gram capsule Take 1 capsule by mouth three times daily before meals. multivitamin (DAILY MULTIPLE) tablet Take 1 tablet by mouth once daily. fluticasone (FLONASE) 50 mcg/actuation nasal spray Use 2 Sprays in each nostril once daily as needed for Cold/Allergy Symptoms. Rinse mouth after use. ? No current facility-administered medications for this visit.? ? ALLERGIES:?Adhesive; Atorvastatin; Betadine [Povidone-Iodine]; Chlorthalidone; Famotidine; Soap ? PERSONAL HISTORY:? SOCIAL?HISTORY Social History ??Socioeconomic History ?Marital status: Single ?Spouse name: Not on file ?Number of children: 0 ?Years of education: Not on file ?Highest education level: Not on file ??Social Needs ?Financial resource strain: Not on file ?Food insecurity - worry: Not on file ?Food insecurity - inability: Not on file ?Transportation needs - medical: Not on file ?Transportation needs - non-medical: Not on file ??Occupational History ?Occupation: retired ??Tobacco Use ?Smoking status: Former Smoker ?Packs/day: 1.00 ?Years: 25.00 ?Pack years: 25 ?Types: Cigarettes ?Quit date: 03/13/2004 ?Years since quittin.4 ?Smokeless tobacco: Never Used ?Tobacco comment: quit 11/16 ??Substance and Sexual Activity ?Alcohol use: No ?Frequency: Never ?Comment: none since 2006 ?Drug use: No ?Sexual activity: Never ??Other Topics ?Concerns: ?Not on file ??Social History Narrative ?Not on file ? FAMILY HISTORY:? FAMILY?HISTORY FAMILY HISTORY Problem Relation Age of Onset ? Diabetes Mother ? ? Diabetes Father ?diverticulitis/gout ? None Brother ? ? None Brother ? ? REVIEW OF SYMPTOMS: ? ? PHYSICAL EXAMINATION: ? General: ?The patient is 63 year old male, well nourished, well hydrated in no acute distress. ?The patient is oriented to time, place, and person. ? VITALS:?Blood pressure 118/70, pulse 70, temperature 36.6 ?C (97.9 ?F), temperature source Temporal Artery, resp. rate 16, height 170.2 cm (5' 7), weight 78.9 kg (174 lb), SpO2 95 %. ? HEENT: ?Normal cephalic, ataumatic, pupils are equally round, sclera are anicteric, mucous membranes are moist, oropharynx is clear. ?Neck has no masses, asymmetry or lymphadenopathy. ?Thyroid is unremarkable. ? Respiratory: ?Clear to auscultation and percussion. ?Normal respiratory excursion and pattern. ? Cardiac: ?Examination is regular rate and rhythm. ? Abdominal exam: ?Soft, nontender, ?with no palpable masses. ?No hepatosplenomegaly. ?No palpable hernias. ? Rectal exam:?exam deferred ? Extremities: ?no clubbing, cyanosis or edema. ?No adenopathy. ? Other: ? ? LABORATORY VALUES: As Noted ? RADIOLOGIC STUDIES: ?As Noted ? Assessment ? IMPRESSION:?Complicated decubitus ulcer, need for diverting colostomy ? PLAN:???I plan to perform a laparoscopic sigmoid colostomy-end Mitchell style.??The planned surgical procedure was discussed extensively with the patient. The risks, benefits and anticipated outcomes of the procedure, the risks and benefits of the alternatives to the procedure, and the roles and tasks of the personnel to be involved, were discussed with the patient. ?My staff has also explained the procedure in understandable terms and the patient was given the option to take printed material concerning the planned procedure. ?The patient had the opportunity to ask questions concerning the planned procedure. ?The patient freely consents to the planned procedure. ? I discussed with him the most likely we would consider this a permanent colostomy. ?The patient is not currently ready to consider a permanent colostomy and is hoping that this will allow his wound area to heal. ?With an end Mitchell type colostomy if the patient's mobility improves and his peritoneum does heal completely we could consider takedown. ?My concern in?discussing that possibility with the patient is,?even his prior history of anorectal issues likely secondary to radiation?I am?still concerned and?anticipate that he would have recurring incontinence issues. we will cancel the surgical procedures for today and admit the patient for IV saline infusion. We will plan to perform colostomy tomorrow ? Anticipated Surgical Procedure/ CPT Code:?Laparoscopic?colostomy?End Raudel's - 56291 ? Anticipated Anesthetic:?General ? Patient weight:??Blood pressure 118/70, pulse 70, temperature 36.6 ?C (97.9 ?F), temperature source Temporal Artery, resp. rate 16, height 170.2 cm (5' 7), weight 78.9 kg (174 lb), SpO2 95 %.?BMI: ?Body mass index is 27.25 kg/m?. ? Planned antibiotic:?Cefotetan?2gm IVPB delivery and installation subcontractor to OR ? SCDs needed -?Yes ? Forensic Identification Specialist Needed -?Yes ?? ? Diagnoses:?(L89.304) Decubitus ulcer of ischial area, stage 4, unspecified laterality (HCC) ?(primary encounter diagnosis) (R15.9) Incontinence of feces, unspecified fecal incontinence type ? My findings have been communicated to Dr.??LUAN DANGELO MD?via shared medical record. ?This note will be forwarded to Dr. LUAN DANGELO MD. ? Return to Clinic: The patient is instructed to follow-up with me?1 week post operatively. ? This note was partially generated using [employer] voice recognition system, and there may be some incorrect words, spellings, and punctuation that were not noted in checking the note before saving.? Nicholas Nunez MD
[2018-09-03] MEDS: Enoxaparin 40 MG/0.4 ML Syringe SC (10:24)
[2018-09-03] MEDS: amLODIPine 5 MG Tablet PO (10:25)
[2018-09-03] MEDS: Acetaminophen 500 MG Tablet 1000 MG PO ×3 (10:25→23:37)
[2018-09-03] MEDS: Ferrous Gluconate 324 MG Tablet PO ×2 (10:26→17:07)
--- NOTE | 2018-09-03 11:38 | CASEMGMT ---
Social Work Note SW familiar with pt from previous admissions. Pt is listed as being from [facility]. SW met with pt, introduced self and role at [facility]. Pt is alert and orientated x4. Pt confirms that he is from [facility] and his plan is to return there at discharge. Pt is scheduled to get surgery tomorrow. SW informed pt that he will need pre-cert to return and that after surgery tomorrow, pre-cert can be submitted. Pt states understanding. Plan: Return to [facility] pending pre-cert Caroline Og INSTRUCTIONAL SUPERVISOR, PHLEBOTOMY DIRECTOR
[2018-09-03 12:14] LABS: Urine Sodium 21 mmol/L (Not Establ.)
[2018-09-03 12:17] LABS: Osmolality, Urine 285 mOsm/KG
[2018-09-03] MEDS: Ipratropium 0.5 MG/2.5 ML SOLUTION INHALATION (13:23)
--- NOTE | 2018-09-03 14:26 | NURSING ---
wound photo: right buttock
--- NOTE | 2018-09-03 14:27 | NURSING ---
wound photo: right elbow
[2018-09-03] MEDS: Gabapentin 600 MG Tablet PO ×2 (14:31→22:41)
[2018-09-03] MEDS: busPIRone 5 MG Tablet PO ×2 (14:31→22:41)
--- NOTE | 2018-09-03 15:22 | CHAPLAIN ---
Type of Pastoral Visit _x__ Initial Visit ___ Follow-up Visit ___ On-call Visit ___ General Patient Visit ___ Spiritual Assessment ___ Family Conference ___ Bereavement ___ Rapid Response ___ Code Blue ___ Other (describe below) Pastoral Care Referral From _x__ Patient ___ Family ___ Nurse ___ Physician ___ Anode Crew Supervisor ___ Costume Maker ___ Other (describe below) Sacrament/Intervention _x__ Active listening ___ Anointing ___ Anglican ___ Bereavement ___ Communion ___ Becka exploration ___ _x__ Life review _x__ Prayer ___ Reconciliation ___ Sacrament of Sick _x__ Supportive presence ___ Wedding ___ Other (describe below) Pastoral Comments
[2018-09-03] MEDS: 0.9% Normal Saline 1,000 ML 75 ML IV (17:07)
[2018-09-03] MEDS: Diphenoxylate/Atrop 1 Tablet PO (18:53)
--- NOTE | 2018-09-03 20:00 | NURSING ---
1999- went to pts room d/t tenter frame operator told nurse pts drsg came off after going to the br. educated pt to not touch and remove his drsg to prevent infection, pt got aggravated and raising his voice and rude to staff and pointing his fingers. RN explained to pt she is just trying to help pt and does not want to be talked to the way he is talking. pt states I can talk to you however I want. drsg changed to pts buttocks.
--- NOTE | 2018-09-03 22:35 | NURSING ---
Pt screaming about the fact that the nurse had taped his ass hole. I told him that I had assisted a nurse to change the dressing the other night and it is very close to that area. Pt apparently pulled the dressing out when he went to the bathroom. I told him we would just leave it out at this time. Advised the pt that he did not need to yell but he replied that if he doesn't yell nothing gets done. Camden MIRANDA and [place] RN present in room as well and witnessed most of the conversation.
[2018-09-03] MEDS: Metoprolol Tartrate 50 MG Tablet PO (22:41)
[2018-09-03] MEDS: Ezetimibe 10 MG Tablet PO (22:41)
--- NOTE | 2018-09-03 22:55 | PCA ---
pt aggressive on way out of brp. upset about tape placement on wound care. pt yelled and refused help from me, charge nurse came into room to help calm pt down. another nurse took over care of pt.
--- NOTE | 2018-09-03 23:27 | NURSING ---
1999- went to pts room d/t crew director told nurse pts drsg came off after going to the br. educated pt to not touch and remove his drsg to prevent infection, pt got aggravated and raising his voice and rude to staff and pointing his fingers. RN explained to pt she is just trying to help pt and does not want to be talked to the way he is talking. pt states I can talk to you however I want. drsg changed to pts buttocks.
[2018-09-04] VITALS (18 sets, daily range): BP systolic 96–135; BP diastolic 47–67; PULSE 62–90; RESP 16–18; TEMP 36.2–36.9; O2SAT 92–97; BMI 27.9; BMI 28.0
[2018-09-04] MEDS: 0.9% Normal Saline 1,000 ML 75 ML IV (05:54)
[2018-09-04] MEDS: Acetaminophen 500 MG Tablet 1000 MG PO ×3 (05:54→17:50)
[2018-09-04] MEDS: busPIRone 5 MG Tablet PO ×3 (05:54→22:23)
[2018-09-04] MEDS: Gabapentin 600 MG Tablet PO ×3 (05:54→22:23)
--- NOTE | 2018-09-04 06:00 | EKG12_ITS ---
Test Reason : PRE-OP Blood Pressure : / mmHG Vent. Rate : 070 BPM Atrial Rate : 070 BPM P-R Int : 152 ms QRS Dur : 096 ms QT Int : 404 ms P-R-T Axes : 054 043 078 degrees QTc Int : 436 ms Normal sinus rhythm Normal ECG Confirmed by RABIA SARABIA, WAYNE ([id number]), index editor ARANZA EPSTEIN ([id number]) on 09/05/2018 8:17:32 AM Referred By: Nicholas Nunez Confirmed By:WAYNE CAMARILLO MD
[2018-09-04 06:23] LABS: Hematocrit 32.8 % (40-54); Hemoglobin 10.7 g/dl (13.0-16.5); Mean Corp Hgb Conc 32.6 g/gl (32-36); Mean Corpuscular Hgb 26.9 pg (27.0-32.0); Mean Corpuscular Volume 82.4 fL (80-94); Mean Platelet Vol. 7.5 fl (6.2-12.0); Platelet Count 402 K/mm3 (150-450); RBC Distribution Width CV 16.1 % (11.6-14.6); RBC Distribution Width SD 47.5 fl (35.1-43.9); Red Blood Count 3.98 M/mm3 (4.6-6.2)
[2018-09-04 06:28] LABS: Scan Indicated on CBC? Y/N NO
[2018-09-04 06:43] LABS: Prothrombin Time (Protime)PT. 12.7 SECONDS (11.7-14.9)
[2018-09-04 06:45] LABS: AST(SGOT) 31 U/L (15-37); Alanine Aminotransfer ALT/SGPT 42 U/L (16-61); Albumin, Serum 3.1 g/dL (3.2-5.0); Alkaline Phosphatase 98 U/L (45-117); Anion Gap 4 (5-15); BUN 15 mg/dL (7-18); BUN/Creat Ratio 30.3 RATIO (10-20); Bilirubin, Direct 0.06 mg/dL (0.00-0.30); Calcium,Total 8.3 mg/dL (8.5-10.1); Chloride 100 mmol/L (98-107); EST Glomerular Filtration Rate 180 mL/min (>60); Est Glom Filt Rate - Afr Amer 217 mL/min (>60); Estimated Creatinine Clearance 139.54 ml/min; Globulin 4.1 g/dL (2.2-4.2); Glucose 107 mg/dL (74-106); Potassium 4.2 mmol/L (3.5-5.1); Protein, Total 7.2 g/dL (6.4-8.2); Sodium Level 132 mmol/L (136-145)
[2018-09-04] MEDS: Ipratropium 0.5 MG/2.5 ML SOLUTION INHALATION ×2 (06:51→19:41)
[2018-09-04 06:52] LABS: Partial Thromboplast Time 30.6 Seconds (24.1-36.2)
[2018-09-04] MEDS: Fluticasone 0.05% 1 SPRAY NASAL.SRY 2 SPRAY NASAL (09:04)
[2018-09-04] MEDS: Metoprolol Tartrate 50 MG Tablet PO (09:05)
--- NOTE | 2018-09-04 09:13 | CASEMGMT ---
Social Work Note Pt is scheduled for Colostomy today at 10:00am. SHAHANA placed a call to [facility] and spoke with Lynette in admissions. [facility] and will need pre-cert to return. SHAHANA updated Lynette on pt's surgery time today and once this worker has updated clinicals, this worker can fax referral. SHAHANA informed Lynette that once referral is received to submit for pre-cert. Lynette states understanding. Plan: [facility] pending pre-cert Caroline Og PAPER FOLDING MACHINE OPERATOR, PAINT AND TABLE EDGER
--- NOTE | 2018-09-04 10:30 | UL_PTH ---
PATIENT: BRYN TROTTER LOC: MS3 U#:[id number] AGE/SX: 63/M ROOM: MS303 RE09/03/[address]: Dr. Martin Ayala MD : [id number] BED: 1 DIS: 09/26/2018 SPEC #: [id number] RECD: 09/05/18 07:57 STATUS: JUAN DIEGO QUACH #: [id number] BURT: 09/04/18 10:[address]: Nicholas Nunez DEPT: SURGICAL PATHOLOGY RECD BY: Rita Valera ENTERED: 09/05/18 10:02 SP TYPE: ULCER OTHR DR: Dr. Winine Gonzales MD Tissues: ULCER Procedures: Surgery Specimen Level III HEADER OPERATION: Laparoscopic, sigmoid colostomy PRE-OP DIAGNOSIS: Complicated decubitus ulcer, need for diverting colostomy TISSUE SUBMITTED: Staple line, skin and fat MICROSCOPIC DIAGNOSIS Skin and fat, staple line, sigmoid colostomy: Colonic mucosa and skin tissue compatible with colostomy tissue. FA:isi 09/06/18 MICROSCOPIC DESCRIPTION Slides are reviewed. GROSS DESCRIPTION Received in fixative is one container labeled with the patient's name and designated skin and fat, staple line. The specimen consists of a fragment of skin with attached subcutaneous adipose tissue. The skin surface measures 1.5 x 1.5 x 1.5 cm and the attached subcutaneous adipose tissue measures 3.5 x 2.5 x 1.5 cm. A small portion of the bowel mucosa with staple line is present measuring 3 mm in length and 1.7 cm in diameter. Dynamo Tender sections are submitted in two cassettes. / FA:isi 09/05/18 TC:4 CPT: 78259
--- NOTE | 2018-09-04 10:44 | NURSING ---
Pt already off unit for surgery.
--- NOTE | 2018-09-04 11:01 | OP.PCM_ITS ---
Report of Operation Date of Procedure: 09/04/18 Pre-Operative Diagnosis: stage 4 decubitus, fecal incontinence Post-Operative Diagnosis: stage 4 decubitus, fecal incontinence Surgery/Procedure Performed:: laparoscopic sigmoid colostomy medical coding manager: Yunior Hartman Type of Anesthesia:: General Anesthesiologist: Jordan Carranza - ASA3 Specimen's removed: staple line, skin and fat Drains: none Estimated Blood Loss (mL): 25 Fluids Replaced: 1400 Description of Procedure: The patient was brought to the operating suite. Sign in was performed verifying patient, site, procedure, position, and DVT prophylaxis with SCDs. Patient received Cefotetan 2gm The patient was marked for possible stoma site in the left lower quadrant by the enterostomal therapist. Following induction of general anesthetic, the patient?s abdomen and perineal area were then prepped and draped in the usual fashion. Timeout was performed verifying patient, site, position. Local anesthetic was injected above the umbilicus. Incision made and dissection carried down to the umbilical root fascia. Incision made in the fascia, the peritoneum entered using a 5 mm Visiport technique. Pneumoperitoneum to 15 mmHg was insufflated. 1 5mm ports were placed in the right paramedian position and a 10/12 port was placed through the marked stoma site. Visual inspection revealed a normal-appearing liver with no significant abnormalities. There are noted to be adhesions of the colon versus attachments to the left pelvic rim. These were taken down with Harmonic scalpel. Once there was noted to be good mobilization of the sigmoid colon, a window was made in the sigmoid mesentery and the sigmoid colon transected with 2 firings of a intestinal load Endo TONY stapler. A Harmonic scalpel was then used to divide the sigmoid mesentery to allow mobilization of the transected end of the proximal sigmoid colon to the stoma site. Once this was felt to be well mobilized, the 10/12 port was removed and a circular incision encompassing skin and a plug of subcutaneous fat was taken down to the fascia. A cruciate incision was made to the fascia encompassing the previous port site. The rectus muscle was spread and partially dissected and the posterior sheath was opened in a cruciate incision. 3-0 Vicryl sutures were used to connect the anterior sheath the posterior sheath. Pneumoperitoneum was again established and the distal sigmoid was grasped with an atraumatic grasper and passed to a [place] and brought up through the stoma site. There was some venous bleeding from the mesentery which was managed with the Harmonic scalpel. The previously placed 3-0 Vicryl sutures were then used to secure the colon serosa at the level of the fascia to the fascial margin. The sutures were then tied and cut. The 5mm ports were removed with no signs of bleeding. Pneumoperitoneum was released Skin was closed with interrupted and running 4-0 Monocryl subcuticular sutures Dermabond was applied to the skin and bandages were applied. The staple line was then cut off the end of the sigmoid colon. The mucosa/colon was then matured to the edge of the incision for a flush stoma. The stoma was well-perfused. Inspection of the stoma with both a digit and a tube demonstra jaime good perfusion. A stomal appliance was attached. All sponge and instrument counts were correct. The patient was extubated. The patient was brought to recovery room in stable condition. - Admit VTE Documentation VTE Present on Admission: No VTE Mechan Device Prophylaxis: SCD's VTE Pharm Prophylaxis ordered?: Yes
[2018-09-04] MEDS: Bupivacaine Mpf 0.5% 30 ML VIAL (11:25)
--- NOTE | 2018-09-04 11:48 | PCA ---
pt off floor
--- NOTE | 2018-09-04 13:15 | PCA ---
pt off floor
--- NOTE | 2018-09-04 13:47 | CASEMGMT ---
Social Work Note Pt is still off Floor for procedure. SW will fax updates to [facility] once pt returns to floor. Plan: [facility] pending pre-cert Caroline Og SEROLOGY TECHNICIAN, SUPERVISOR ROLLING ROOM
[2018-09-04] MEDS: Multivitamins,Therapeutic Tablet 1 TABLET PO (15:06)
[2018-09-04] MEDS: Escitalopram Oxalate 10 MG Tablet PO (15:06)
[2018-09-04] MEDS: amLODIPine 5 MG Tablet PO (15:06)
[2018-09-04] MEDS: buPROPion (XL) 300 MG TABLET.XL PO (15:07)
[2018-09-04] MEDS: Pantoprazole Sodium 40 MG Tablet PO (15:07)
--- NOTE | 2018-09-04 15:19 | PCA ---
pt off floor
[2018-09-04] MEDS: oxyCODONE 5 MG Tablet 10 MG PO (15:45)
[2018-09-04] MEDS: Ferrous Gluconate 324 MG Tablet PO (16:58)
--- NOTE | 2018-09-04 17:22 | CASEMGMT ---
Social Work Note SW placed transfer to extended care form on pt's chart. SW will fax referral to [facility] tomorrow. Plan: Return to [facility] pending pre-cert Caroline Og MSW, ENERGY SALES CONSULTANT
[2018-09-04] MEDS: tiZANidine HCl 2 MG Tablet 4 MG PO (17:50)
[2018-09-04] MEDS: Morphine 2 MG/ML Syringe IV ×2 (18:25→22:21)
[2018-09-04] MEDS: Ezetimibe 10 MG Tablet PO (22:23)
[2018-09-05] VITALS (8 sets, daily range): BP systolic 125–159; BP diastolic 56–74; PULSE 70–86; RESP 16–20; TEMP 36.5–37.2; O2SAT 93–99
[2018-09-05] MEDS: Acetaminophen 500 MG Tablet 1000 MG PO ×3 (00:36→17:16)
[2018-09-05] MEDS: oxyCODONE 5 MG Tablet 10 MG PO ×3 (02:38→13:55)
[2018-09-05 06:25] LABS: Absolute Lymphocyte Count 1.06 X10^3/ul (0.83-4.51); Eosinophil# 0.01 X10^3/uL; Eosinophils% 0.1 % (0-5); Hemoglobin 9.4 g/dl (13.0-16.5); Lymphocyte # 1.06 X10^3/ul (4.0); Mean Corp Hgb Conc 32.4 g/gl (32-36); Mean Corpuscular Hgb 27.1 pg (27.0-32.0); Mean Corpuscular Volume 83.6 fL (80-94); Mean Platelet Vol. 7.4 fl (6.2-12.0); Monocyte% 12.3 % (0-10); Neutrophil # 6.03 X10^3/uL (2.7-7.7); Neutrophil % 74.2 % (47-70); Platelet Count 286 K/mm3 (150-450); RBC Distribution Width CV 16.2 % (11.6-14.6); RBC Distribution Width SD 49.8 fl (35.1-43.9); Red Blood Count 3.47 M/mm3 (4.6-6.2); White Blood Count 8.1 K/mm3 (4.4-11.0)
[2018-09-05 06:27] LABS: POSITIVE COUNT NO; POSITIVE DIFFERENTIAL NO; POSITIVE MORPHOLOGY NO
[2018-09-05 06:36] LABS: Anion Gap 10 (5-15); BUN 16 mg/dL (7-18); BUN/Creat Ratio 26.6 RATIO (10-20); Calcium,Total 8.5 mg/dL (8.5-10.1); Chloride 99 mmol/L (98-107); EST Glomerular Filtration Rate 143 mL/min (>60); Est Glom Filt Rate - Afr Amer 174 mL/min (>60); Estimated Creatinine Clearance 116.29 ml/min; Glucose 118 mg/dL (74-106); Sodium Level 136 mmol/L (136-145)
[2018-09-05] MEDS: Gabapentin 600 MG Tablet PO ×3 (06:41→21:23)
[2018-09-05] MEDS: busPIRone 5 MG Tablet PO ×3 (06:41→21:22)
[2018-09-05] MEDS: Ipratropium 0.5 MG/2.5 ML SOLUTION INHALATION (07:09)
[2018-09-05] MEDS: Morphine 2 MG/ML Syringe IV ×3 (07:29→20:20)
--- NOTE | 2018-09-05 08:35 | PN.SURG_ITS ---
Subjective: unable to void overnight, improving pain - Physical Exam General: Alert, Oriented x3, Cooperative Lungs: Clear to auscultation, Normal air movement Cardiovascular: Regular rate, No murmurs Abdomen: Bowel Sounds Present, Soft, Non Tender, - - stoma with some bloody output, no stool Vital Signs Temp Pulse Resp BP Pulse Ox 97.7 F L 70 20 H 125/60 H 96 09/05/18 02:25 09/05/18 07:09 09/05/18 07:09 09/05/18 02:25 09/05/18 07:09 Oxygen Flow Rate (L/min) 2 Oxygen Delivery Method Room Air Weight: 81 kg Body Mass Index (BMI) 27.9 Intake and Output for Last 24 Hours 09/03/18 09/04/18 09/05/18 23:59 23:59 23:59 Intake Total 1615 / 2465 4371 / 5768 2020 Output Total 1500 / 1875 2850 / 2850 Balance 1615 / 2465 2871 / 3893 -829 / -829 Laboratory Tests Past 24 Hrs 09/05/18 09/05/18 05:40 05:40 WBC 8.1 RBC 3.47 L Hgb 9.4 L Hct 29.0 L MCV 83.6 MCH 27.1 MCHC 32.4 RDW 16.2 H RDW Differential 49.8 H Plt Count 286 MPV 7.4 Immature Gran % (Auto) 0.400 Neut % (Auto) 74.2 H Lymph % (Auto) 13.0 L [place] % (Auto) 12.3 H Eos % (Auto) 0.1 Baso % (Auto) 0.0 Absolute Neuts (auto) 6.0 Absolute Lymphs (auto) 1.06 Total Counted Not Reportable Sodium 136 Potassium 4.0 Chloride 99 Carbon Dioxide 27.0 Anion Gap 10 BUN 16 Creatinine 0.60 L Estim Creat Clear Calc 116.29 Est GFR (MDRD) Af Amer 174 Est GFR (MDRD) Non-Af 143 BUN/Creatinine Ratio 26.6 H Glucose 118 H Calcium 8.5 Medical Necessity - Tobacco Use Smoking Status: Former smoker Assessment/Plan All Active Problems Pneumonia (Acute) SBO (small bowel obstruction) (Acute) Hypotension (Acute) Hyponatremia (Acute) POD # 1 s/p laparoscopic diverting colostomy for non healing stage 4 decubitus Will anticipate stool output but Ok with oral intake currently. will follow electrolytes given history of hyponatremia likely multifactorial urinary retention - will start flomax, block catheter for now Wound care per wound nurse
[2018-09-05] MEDS: Ferrous Gluconate 324 MG Tablet PO ×2 (09:04→17:16)
[2018-09-05] MEDS: Escitalopram Oxalate 10 MG Tablet PO (09:04)
[2018-09-05] MEDS: Multivitamins,Therapeutic Tablet 1 TABLET PO (09:05)
[2018-09-05] MEDS: Fluticasone 0.05% 1 SPRAY NASAL.SRY 2 SPRAY NASAL (09:05)
[2018-09-05] MEDS: Metoprolol Tartrate 50 MG Tablet PO ×2 (09:05→21:22)
[2018-09-05] MEDS: Enoxaparin 40 MG/0.4 ML Syringe SC (09:06)
[2018-09-05] MEDS: amLODIPine 5 MG Tablet PO (09:06)
[2018-09-05] MEDS: Pantoprazole Sodium 40 MG Tablet PO (09:06)
[2018-09-05] MEDS: buPROPion (XL) 300 MG TABLET.XL PO (09:07)
--- NOTE | 2018-09-05 10:52 | CASEMGMT ---
Social Work Note SHAHANA faxed updated clinicals to [facility]. SHAHANA wrote on fax cover sheet to submit for pre-cert. Plan: [facility] pending pre-cert Caroline FELIX, BOW MAKER CUSTOM
--- NOTE | 2018-09-05 11:25 | NURSING ---
patient is POD#1 diverting colostomy. stoma is dark red in color. there is a moderate amount of bloody drainage noted in the appliance. no flatus or stool noted at this time. plan to change ostomy appliance tomorrow to better assess the stoma. pt c/o some abdominal tenderness where the opsites are. denies nausea. will monitor.
--- NOTE | 2018-09-05 13:30 | CASEMGMT ---
Social Work Note SHAHANA received message from Lynette at [facility]. Lynette asked if PT/OT could be ordered for pt for updated evaluation, asked about OT teaching pt to care for his ostomy, and asked about pt coming to [facility] with about a week supply for his colostomy. SHAHANA ordered PT/OT, spoke with RUBEN MEDEIROS who states wound nurse Ria, RN will work with pt with teaching pt about colostomy. SHAHANA placed a call to Lynette at [facility], updated her on above information and updated Lynette that this worker will ask RUBEN Rollins regarding pt going with colostomy supplies. SHAHANA informed Lynette to submit for pre-cert. Plan: [facility] pending pre-cert Caroline Og MSW, TERADATA ARCHITECT
[2018-09-05] MEDS: 0.9% Normal Saline 1,000 ML 75 ML IV ×2 (13:55)
[2018-09-05] MEDS: Ibuprofen 400 MG Tablet 800 MG PO ×2 (13:57→21:23)
[2018-09-05] MEDS: Tamsulosin HCl 0.4 MG Capsule 0.8 MG PO (17:16)
[2018-09-05] MEDS: 0.9% NaCl Peripheral Flush Adult/Peds IV (20:12)
[2018-09-05] MEDS: Ezetimibe 10 MG Tablet PO (21:22)
[2018-09-05] MEDS: Nystatin Powder 15gm Bottle 1 APPLIC TOPICAL (21:36)
[2018-09-06] VITALS (7 sets, daily range): BP systolic 94–135; BP diastolic 58–73; PULSE 74–91; RESP 16–18; TEMP 37–37.3; O2SAT 93–97
[2018-09-06] MEDS: Acetaminophen 500 MG Tablet 1000 MG PO ×4 (00:02→17:17)
[2018-09-06] MEDS: oxyCODONE 5 MG Tablet 10 MG PO ×3 (00:04→21:50)
[2018-09-06] MEDS: Morphine 2 MG/ML Syringe IV ×3 (02:47→19:53)
[2018-09-06] MEDS: 0.9% Normal Saline 1,000 ML 75 ML IV ×2 (02:47→15:57)
[2018-09-06] MEDS: busPIRone 5 MG Tablet PO ×3 (05:44→21:50)
[2018-09-06] MEDS: Ibuprofen 400 MG Tablet 800 MG PO ×3 (05:44→21:50)
[2018-09-06] MEDS: Gabapentin 600 MG Tablet PO ×3 (05:45→21:50)
[2018-09-06 05:50] LABS: Basophil# 0.01 X10^3/uL; Basophil% 0.1 % (0-1); Differential Indicated SCAN CRITERIA MET; Eosinophil# 0.24 X10^3/uL; Hematocrit 32.7 % (40-54); Hemoglobin 10.8 g/dl (13.0-16.5); Lymphocyte % 11.9 % (19-41); Mean Corpuscular Hgb 27.6 pg (27.0-32.0); Mean Corpuscular Volume 83.4 fL (80-94); Mean Platelet Vol. 7.3 fl (6.2-12.0); Monocyte# 2.08 X10^3/uL; Monocyte% 17.7 % (0-10); Neutrophil # 7.99 X10^3/uL (2.7-7.7); POSITIVE COUNT NO; POSITIVE DIFFERENTIAL YES; POSITIVE MORPHOLOGY NO; Platelet Count 389 K/mm3 (150-450); RBC Distribution Width CV 16.5 % (11.6-14.6); RBC Distribution Width SD 49.3 fl (35.1-43.9); Red Blood Count 3.92 M/mm3 (4.6-6.2); White Blood Count 11.8 K/mm3 (4.4-11.0)
[2018-09-06 06:08] LABS: Osmolality, Serum 280 mOsm/KG (280-301)
[2018-09-06 06:15] LABS: Differential Comment SCANNED
[2018-09-06 06:44] LABS: ALB/GLOB Ratio 0.9 RATIO (0.9-2.4); AST(SGOT) 31 U/L (15-37); Alanine Aminotransfer ALT/SGPT 35 U/L (16-61); Albumin, Serum 3.1 g/dL (3.2-5.0); Alkaline Phosphatase 80 U/L (45-117); Anion Gap 9 (5-15); BUN 20 mg/dL (7-18); BUN/Creat Ratio 41.6 RATIO (10-20); Calcium,Total 8.6 mg/dL (8.5-10.1); Chloride 99 mmol/L (98-107); Creatinine, Serum 0.48 mg/dL (0.70-1.30); EST Glomerular Filtration Rate 186 mL/min (>60); Est Glom Filt Rate - Afr Amer 225 mL/min (>60); Estimated Creatinine Clearance 145.36 ml/min; Globulin 3.5 g/dL (2.2-4.2); Glucose 108 mg/dL (74-106); Magnesium 1.9 mg/dL (1.6-2.6); Phosphorus 4.2 mg/dL (2.5-4.9); Potassium 4.1 mmol/L (3.5-5.1); Protein, Total 6.6 g/dL (6.4-8.2); Sodium Level 135 mmol/L (136-145)
[2018-09-06] MEDS: Ipratropium 0.5 MG/2.5 ML SOLUTION INHALATION (06:48)
--- NOTE | 2018-09-06 07:47 | PCM.PN.SRG ---
Subjective: feeling bloated, minimal air output from stoma - Physical Exam Lungs: Clear to auscultation, Normal air movement Cardiovascular: Regular rate, No murmurs Abdomen: Bowel Sounds Present, Soft, Non Tender, - - stoma with bloody output, mucosa somewhat dusky,and flatus in bag Vital Signs Temp Pulse Resp BP Pulse Ox 98.9 F 82 16 133/73 H 94 09/06/18 02:04 09/06/18 02:04 09/06/18 02:04 09/06/18 02:04 09/06/18 02:04 Oxygen Flow Rate (L/min) 2 Oxygen Delivery Method Room Air Weight: 81 kg Body Mass Index (BMI) 27.9 Intake and Output for Last 24 Hours 09/04/18 09/05/18 09/06/18 23:59 23:59 23:59 Intake Total 4371 / 5768 4022 / 4022 1844 / 1844 Output Total 1500 / 1875 4250 / 4250 950 / 950 Balance 2871 / 3893 -228 / -228 894 / 894 Laboratory Tests Past 24 Hrs 09/06/18 09/06/18 09/06/18 05:28 05:28 05:28 WBC 11.8 H RBC 3.92 L Hgb 10.8 L Hct 32.7 L MCV 83.4 MCH 27.6 MCHC 33.0 RDW 16.5 H RDW Differential 49.3 H Plt Count 389 MPV 7.3 Immature Gran % (Auto) 0.300 Neut % (Auto) 68.0 Lymph % (Auto) 11.9 L [place] % (Auto) 17.7 H Eos % (Auto) 2.0 Baso % (Auto) 0.1 Absolute Neuts (auto) 8.0 H Absolute Lymphs (auto) 1.40 Total Counted Not Reportable Differential Comment SCANNED Diff Path Review May foll Sodium 135 L Potassium 4.1 Chloride 99 Carbon Dioxide 27.0 Anion Gap 9 BUN 20 H Creatinine 0.48 L Estim Creat Clear Calc 145.36 Est GFR (MDRD) Af Amer 225 Est GFR (MDRD) Non-Af 186 BUN/Creatinine Ratio 41.6 H Glucose 108 H Serum Osmolality 280 Calcium 8.6 Phosphorus 4.2 Magnesium 1.9 Total Bilirubin 0.30 AST 31 ALT 35 Alkaline Phosphatase 80 Total Protein 6.6 Albumin 3.1 L Globulin 3.5 Albumin/Globulin Ratio 0.9 Medical Necessity - Tobacco Use Smoking Status: Former smoker Assessment/Plan All Active Problems Pneumonia (Acute) SBO (small bowel obstruction) (Acute) Hypotension (Acute) Hyponatremia (Acute) POD # 2 s/p laparoscopic diverting colostomy for non healing stage 4 decubitus Will anticipate stool output. patient feeling somewhat bloated. We'll return to clear liquids until increased output from ostomy. will follow electrolytes given history of hyponatremia likely multifactorial urinary retention - will start flomax, block catheter for now Wound care per wound nurse
--- NOTE | 2018-09-06 08:51 | CASEMGMT ---
Social Work Note SW faxed updated clinicals to [facility]. Plan: [facility] pending pre-cert Caroline Og ROUTE DELIVERY SUPERVISOR, CARBONATING STONE CLEANER
[2018-09-06] MEDS: Fluticasone 0.05% 1 SPRAY NASAL.SRY 2 SPRAY NASAL (09:32)
[2018-09-06] MEDS: Multivitamins,Therapeutic Tablet 1 TABLET PO (09:32)
[2018-09-06] MEDS: Metoprolol Tartrate 50 MG Tablet PO ×2 (09:33→21:50)
[2018-09-06] MEDS: Ferrous Gluconate 324 MG Tablet PO ×2 (09:34→17:14)
[2018-09-06] MEDS: Enoxaparin 40 MG/0.4 ML Syringe SC (09:35)
[2018-09-06] MEDS: Nystatin Powder 15gm Bottle 1 APPLIC TOPICAL ×2 (09:37→21:52)
[2018-09-06] MEDS: amLODIPine 5 MG Tablet PO (09:37)
[2018-09-06] MEDS: buPROPion (XL) 300 MG TABLET.XL PO (09:38)
[2018-09-06] MEDS: Pantoprazole Sodium 40 MG Tablet PO (09:38)
[2018-09-06] MEDS: Escitalopram Oxalate 10 MG Tablet PO (09:41)
[2018-09-06 10:43] LABS: Pathologist Review Reviewed
--- NOTE | 2018-09-06 11:59 | NURSING ---
in to reassess the stoma. there is dark bloody drainage leaking from under the ostomy appliance. Pt states that Dr Nunez was in this morning and assessed the stoma and took the bag off and stuck his finger in there. stoma is dark in color. no flatus noted. there was a moderate amount of bloody drainage noted in the ostomy appliance. there is some mild irritation noted from the adhesive from the flange. patient states he has problems with adhesive tapes. will need to monitor this. will call and discuss the color of the stoma with Dr Nunez. see stoma photo.
--- NOTE | 2018-09-06 12:06 | NURSING ---
stoma photo: left lower abdomen
--- NOTE | 2018-09-06 12:12 | NURSING ---
Talked with Dr Nunez. Aware stoma is quite dusky. states he did assess that this morning. will continue to monitor.
--- NOTE | 2018-09-06 13:31 | CASEMGMT ---
Social Work Note SHAHANA received message from Lanie at [facility] stating they received authorization for pt. SHAHANA spoke with RUBEN Rollins, wound nurse, per Ria pt may not be ready for discharge tomorrow. SHAHANA placed a call to [facility], spoke with Lynette. SHAHANA informed Lynette that pt is not medically ready for discharge today and may not be ready for discharge tomorrow. SHAHANA asked how long pre-cert is good for. Lynette states that typically pre-cert is good for 48 hours. SHAHANA informed Lynette that this worker will review physician's notes tomorrow in regards to when pt may be ready for discharge and update her tomorrow. Lynette states understanding. Plan: [facility] once medically cleared Caroline Og SOFA COVER INSPECTOR, ENVIRONMENTAL QUALITY ANALYST
[2018-09-06] MEDS: Ensure Clear 120 ML Liquid PO (14:19)
[2018-09-06] MEDS: Tamsulosin HCl 0.4 MG Capsule 0.8 MG PO (17:15)
[2018-09-06] MEDS: 0.9% NaCl Peripheral Flush Adult/Peds IV (19:53)
[2018-09-06] MEDS: Ezetimibe 10 MG Tablet PO (21:50)
[2018-09-07] MEDS: Acetaminophen 500 MG Tablet 1000 MG PO ×2 (01:03→13:10)
[2018-09-07 01:12] VITALS: BP 130/60; PULSE 93; RESP 16; TEMP 37.3; O2SAT 94
[2018-09-07] MEDS: 0.9% Normal Saline 1,000 ML 75 ML IV ×2 (05:04→18:24)
[2018-09-07] MEDS: Gabapentin 600 MG Tablet PO ×2 (05:05→13:12)
[2018-09-07] MEDS: Ibuprofen 400 MG Tablet 800 MG PO ×2 (05:05→13:11)
[2018-09-07] MEDS: busPIRone 5 MG Tablet PO ×2 (05:06→13:11)
[2018-09-07] MEDS: oxyCODONE 5 MG Tablet 10 MG PO ×2 (05:12→18:22)
[2018-09-07 05:38] LABS: Absolute Lymphocyte Count 1.39 X10^3/ul (0.83-4.51); Absolute Neutrophil Count 7.1 X10^3/uL (2.0-7.7); Basophil# 0.01 X10^3/uL; Basophil% 0.1 % (0-1); Eosinophils% 2.8 % (0-5); Hematocrit 29.1 % (40-54); Hemoglobin 9.6 g/dl (13.0-16.5); Lymphocyte # 1.39 X10^3/ul (4.0); Mean Corpuscular Hgb 27.6 pg (27.0-32.0); Mean Corpuscular Volume 83.6 fL (80-94); Mean Platelet Vol. 7.5 fl (6.2-12.0); Monocyte# 1.89 X10^3/uL; Monocyte% 17.7 % (0-10); Neutrophil # 7.05 X10^3/uL (2.7-7.7); Neutrophil % 66.1 % (47-70); Platelet Count 271 K/mm3 (150-450); RBC Distribution Width CV 16.3 % (11.6-14.6); RBC Distribution Width SD 49.9 fl (35.1-43.9); Red Blood Count 3.48 M/mm3 (4.6-6.2); White Blood Count 10.7 K/mm3 (4.4-11.0)
[2018-09-07 05:39] LABS: Differential Indicated SCAN CRITERIA MET; POSITIVE COUNT NO; POSITIVE DIFFERENTIAL YES; POSITIVE MORPHOLOGY NO
[2018-09-07 05:50] LABS: Anion Gap 8 (5-15); BUN 16 mg/dL (7-18); BUN/Creat Ratio 42.6 RATIO (10-20); Calcium,Total 8.3 mg/dL (8.5-10.1); Chloride 98 mmol/L (98-107); Creatinine, Serum 0.38 mg/dL (0.70-1.30); EST Glomerular Filtration Rate 247 mL/min (>60); Est Glom Filt Rate - Afr Amer 299 mL/min (>60); Estimated Creatinine Clearance 183.61 ml/min; Glucose 110 mg/dL (74-106); Potassium 3.8 mmol/L (3.5-5.1); Sodium Level 133 mmol/L (136-145)
[2018-09-07 06:40] LABS: Differential Comment SCANNED
[2018-09-07 06:51] VITALS: BP 105/71; PULSE 93; RESP 16; TEMP 36.9; O2SAT 92
[2018-09-07 08:15] VITALS: BP 127/64; PULSE 88; RESP 16; TEMP 37.1; O2SAT 93
[2018-09-07] MEDS: Ferrous Gluconate 324 MG Tablet PO ×2 (08:20→18:22)
[2018-09-07] MEDS: Multivitamins,Therapeutic Tablet 1 TABLET PO (08:20)
[2018-09-07] MEDS: Fluticasone 0.05% 1 SPRAY NASAL.SRY 2 SPRAY NASAL (09:17)
[2018-09-07] MEDS: Enoxaparin 40 MG/0.4 ML Syringe SC (09:18)
[2018-09-07] MEDS: buPROPion (XL) 300 MG TABLET.XL PO (09:20)
[2018-09-07] MEDS: Nystatin Powder 15gm Bottle 1 APPLIC TOPICAL ×2 (09:21→22:19)
[2018-09-07 09:22] VITALS: PULSE 88
[2018-09-07] MEDS: Metoprolol Tartrate 50 MG Tablet PO (09:22)
[2018-09-07] MEDS: amLODIPine 5 MG Tablet PO (09:22)
[2018-09-07] MEDS: Escitalopram Oxalate 10 MG Tablet PO (09:22)
[2018-09-07] MEDS: Pantoprazole Sodium 40 MG Tablet PO (09:23)
--- NOTE | 2018-09-07 12:43 | PN.SURG_ITS ---
Subjective: more air in bag, less cramping - Physical Exam General: Alert, Oriented x3, Cooperative Lungs: Clear to auscultation, Normal air movement Cardiovascular: Regular rate, No murmurs Abdomen: Bowel Sounds Present, Soft, Non Tender, - - mildly distended, air in bag, old blood, scant stool Vital Signs Temp Pulse Resp BP Pulse Ox 98.7 F 88 16 127/64 H 93 09/07/18 08:15 09/07/18 09:22 09/07/18 08:15 09/07/18 08:15 09/07/18 08:15 Oxygen Flow Rate (L/min) 2 Oxygen Delivery Method Room Air Weight: 81 kg Body Mass Index (BMI) 27.9 Intake and Output for Last 24 Hours 09/05/18 09/06/18 09/07/18 23:59 23:59 23:59 Intake Total 4022 / 4022 2713 / 2713 1161 / 1161 Output Total 4250 / 4250 2400 / 2400 1250 / 1250 Balance -228 / -228 313 / 313 -89 / -89 Laboratory Tests Past 24 Hrs 09/07/18 09/07/18 05:05 05:05 WBC 10.7 RBC 3.48 L Hgb 9.6 L Hct 29.1 L MCV 83.6 MCH 27.6 MCHC 33.0 RDW 16.3 H RDW Differential 49.9 H Plt Count 271 MPV 7.5 Immature Gran % (Auto) 0.300 Neut % (Auto) 66.1 Lymph % (Auto) 13.0 L [place] % (Auto) 17.7 H Eos % (Auto) 2.8 Baso % (Auto) 0.1 Absolute Neuts (auto) 7.1 Absolute Lymphs (auto) 1.39 Total Counted Not Reportable Differential Comment SCANNED Sodium 133 L Potassium 3.8 Chloride 98 Carbon Dioxide 27.0 Anion Gap 8 BUN 16 Creatinine 0.38 L Estim Creat Clear Calc 183.61 Est GFR (MDRD) Af Amer 299 Est GFR (MDRD) Non-Af 247 BUN/Creatinine Ratio 42.6 H Glucose 110 H Calcium 8.3 L Medical Necessity - Tobacco Use Smoking Status: Former smoker Assessment/Plan All Active Problems Pneumonia (Acute) SBO (small bowel obstruction) (Acute) Hypotension (Acute) Hyponatremia (Acute) POD # 3 s/p laparoscopic diverting colostomy for non healing stage 4 decubitus Will anticipate stool output. patient feeling somewhat bloated. We'll return to clear liquids until increased output from ostomy. will follow electrolytes given history of hyponatremia likely multifactorial urinary retention - will start flomax, block catheter for now Wound care per wound nurse
[2018-09-07 13:22] VITALS: BP 122/60; PULSE 68; RESP 18; TEMP 37.1; O2SAT 97
[2018-09-07] MEDS: Morphine 2 MG/ML Syringe IV (13:40)
[2018-09-07] MEDS: 0.9% NaCl Peripheral Flush Adult/Peds IV (13:41)
--- NOTE | 2018-09-07 14:14 | CASEMGMT ---
Social Work Note SHAHANA spoke with Charge Nurse, still awaiting output from colostomy and pt is not medically ready for discharge today. SHAHANA placed a call to Lynette at [facility] and updated her that pt is not medically ready for discharge today. Lynette states pre-cert is good until tomorrow. If pt doesn't discharge to SNF tomorrow, pre-cert will and pt will need to be at [facility] until Monday so new pre-cert can be initiated. Lynette provided cell phone [phone] and would like to be called tomorrow if pt discharges tomorrow. SHAHANA updated pt on insurance approval and how approval is only good until tomorrow. SHAHANA informed pt that if he isn't medically cleared for discharge tomorrow he will be at [facility] until Monday when pre-cert can be initiated again. Pt states understanding. Green sheet on chart with instructions that if pt doesn't discharge to SNF tomorrow pt will need to be at [facility] until Monday when pre-cert can be submitted again. Transportation form on pt's chart. HENS is not needed as pt is from skilled at [facility] and will be returning skilled at [facility]. Charge Nurse updated. Plan: [facility] once medically cleared. Pre-cert is only good until tomorrow (Monday). If pt doesn't discharge to SNF tomorrow, pt will need to be at [facility] until Monday so a new pre-cert can be submitted. Caroline Og RADIO ANTENNA INSTALLER, DIRECTOR OF RETAIL MARKETING
--- NOTE | 2018-09-07 16:53 | NURSING ---
This nurse called Dr. Nunez to inform him of findings of faint to absent Bowel Sounds and that Stoma is dusky and still no stool but draining blood. No new orders, Dr. Nunez is aware and said there is nothing he can do.
[2018-09-07] MEDS: Tamsulosin HCl 0.4 MG Capsule 0.8 MG PO (18:23)
--- NOTE | 2018-09-07 21:00 | RAD_ITS ---
HISTORY:NAUSEA/VOMITING NAUSEA/VOMITING EXAMINATION/TECHNIQUE: XR Abdomen W/ Decub and/or Erect Views: COMPARISON: None FINDINGS: BOWEL GAS PATTERN: Distal loops of small bowel with multiple air-fluid levels are noted. This is suspect for small bowel obstruction/developing small bowel obstruction. There is fecal material that is seen within the sigmoid colon as well as the ascending colon. The stomach contains gas and is minimally distended. FREE AIR: None visualized. ORGANOMEGALY: Not seen. CALCIFICATIONS: No abnormal calcifications observed. LOWER CHEST: Atelectasis in the left lower lobe BONES AND SOFT TISSUES: Left total hip arthroplasty RAD/Abd Inc Decub and/or Erect IMPRESSION: Findings suspicious for developing small bowel obstruction at 2210 Reported and signed by: Jenni Dye DO Electronically Signed: Jenni Dye DO at 22:09 EDT Tel , Service support ,
[2018-09-07 22:00] VITALS: BP 123/59; PULSE 76; RESP 16; TEMP 37; O2SAT 96
[2018-09-08] VITALS (11 sets, daily range): BP systolic 96–144; BP diastolic 51–70; PULSE 105–116; RESP 18–22; TEMP 36.8–38.2; O2SAT 89–97
[2018-09-08] MEDS: Morphine 2 MG/ML Syringe IV ×5 (00:37→22:47)
[2018-09-08] MEDS: Ondansetron ODT 4 MG Tablet PO (01:14)
--- NOTE | 2018-09-08 01:38 | RAD_ITS ---
HISTORY: NG tube placement. Comparison study September 07, 2018. Single view of the abdomen. Findings: Newly placed nasogastric tube tip and proximal most sidehole but terminate below the diaphragm superimposed over the left upper quadrant, likely within the gastric lumen. Gaseous distention of small bowel loops persists. One of these loops of bowel within the left hemiabdomen has a diameter of 6 cm. Dextroscoliosis within the lumbar spine with multilevel degenerative disc disease persists. Atherosclerotic plaque within the iliac arteries persists. RAD/Abdomen Single View (Portable) IMPRESSION: Adequate position of newly placed esophagogastric tube. at 0306 Reported and signed by: Davy Blackwell MD Electronically Signed: Davy Blackwell MD at 3:05 EDT Tel , Service support ,
[2018-09-08 06:42] LABS: Absolute Lymphocyte Count 1.46 X10^3/ul (0.83-4.51); Absolute Neutrophil Count 5.7 X10^3/uL (2.0-7.7); Basophil# 0.01 X10^3/uL; Basophil% 0.1 % (0-1); Eosinophil# 0.04 X10^3/uL; Eosinophils% 0.5 % (0-5); Hematocrit 30.4 % (40-54); Hemoglobin 9.9 g/dl (13.0-16.5); Lymphocyte # 1.46 X10^3/ul (4.0); Lymphocyte % 16.7 % (19-41); Mean Corp Hgb Conc 32.6 g/gl (32-36); Mean Corpuscular Hgb 26.9 pg (27.0-32.0); Mean Corpuscular Volume 82.6 fL (80-94); Mean Platelet Vol. 7.7 fl (6.2-12.0); Monocyte# 1.55 X10^3/uL; Monocyte% 17.7 % (0-10); Neutrophil # 5.65 X10^3/uL (2.7-7.7); Neutrophil % 64.7 % (47-70); Platelet Count 377 K/mm3 (150-450); RBC Distribution Width CV 16.4 % (11.6-14.6); RBC Distribution Width SD 48.2 fl (35.1-43.9); Red Blood Count 3.68 M/mm3 (4.6-6.2); White Blood Count 8.7 K/mm3 (4.4-11.0)
[2018-09-08 06:46] LABS: Differential Indicated SCAN CRITERIA MET; POSITIVE COUNT NO; POSITIVE DIFFERENTIAL YES; POSITIVE MORPHOLOGY NO
[2018-09-08 07:35] LABS: ALB/GLOB Ratio 0.7 RATIO (0.9-2.4); AST(SGOT) 20 U/L (15-37); Alanine Aminotransfer ALT/SGPT 21 U/L (16-61); Albumin, Serum 2.5 g/dL (3.2-5.0); Alkaline Phosphatase 69 U/L (45-117); Anion Gap 8 (5-15); BUN 17 mg/dL (7-18); BUN/Creat Ratio 36.9 RATIO (10-20); Calcium,Total 8.5 mg/dL (8.5-10.1); Chloride 100 mmol/L (98-107); Creatinine, Serum 0.46 mg/dL (0.70-1.30); EST Glomerular Filtration Rate 195 mL/min (>60); Est Glom Filt Rate - Afr Amer 236 mL/min (>60); Estimated Creatinine Clearance 151.68 ml/min; Globulin 3.8 g/dL (2.2-4.2); Glucose 79 mg/dL (74-106); Potassium 3.8 mmol/L (3.5-5.1); Protein, Total 6.3 g/dL (6.4-8.2); Sodium Level 134 mmol/L (136-145)
--- NOTE | 2018-09-08 08:26 | CT_ITS ---
STUDY: CT ABDOMEN AND PELVIS WITHOUT CONTRAST REASON FOR EXAM: Male, 63 years old. History of small bowel obstruction. RADIATION DOSAGE (If Supplied By Facility): CTDIvol = ( 14.34 ) mGy, DLP = ( 713.06 ) mGycm TECHNIQUE: Transaxial images were obtained from the dome of the diaphragm to the symphysis pubis without oral contrast, and without intravenous contrast. Sagittal and coronal images were reconstructed. Individualized dose optimization techniques were used for this CT. COMPARISON: 03/21/2018. FINDINGS: The visualized portions of lung bases demonstrate moderate stranding in the left lung base slightly worse than the previous examination probably due to scarring and atelectasis. The visualized portions of the heart are within normal limits. Normal liver. There is no definite gallstones on this examination. Normal spleen. Normal pancreas. Normal bilateral adrenal glands. There are few small nonobstructing stones in the upper pole of the right kidney. There is no evidence of hydronephrosis. Left renal cyst measuring about 2 cm is again seen. There is no evidence of left hydronephrosis. There is a nasogastric tube with its tip in the region of the stomach. There are markedly dilated fluid-filled small bowel loops. The terminal ileum is partially visualized but does not appear to be distended. There is a colostomy in the left lower quadrant there is mild stranding in the colostomy site but there is no evidence of drainable abscess or abnormal fluid collections. There is fecal retention proximally. The appendix is visualized and appears normal. There is diffuse atherosclerotic calcification of the abdominal aorta, without a demonstrated aneurysm. Normal inferior vena cava. Normal retroperitoneum. There is a Walker catheter in the bladder. The bladder is not well-distended and difficult to evaluate. Severe artifacts are seen in the pelvic region from left hip arthroplasty. There again is a large soft tissue defect or ulceration in the right buttock region extending to the right inferior pubic ramus with mild sclerosis. Underlying chronic osteomyelitis cannot be excluded. There is a small umbilical hernia containing fat. There are diffuse degenerative changes of the visualized lumbar spine. CT/Abdomen/Pelvis without Cont IMPRESSION: 1. Markedly dilated fluid-filled small bowel loops extending to the level of the terminal ileum probably due to ileus. Early distal small bowel obstruction is difficult to entirely exclude. Follow-up examination with oral contrast might be of further value. 2. Status post left lower quadrant colostomy with mild adjacent stranding. No drainable abscess or abnormal fluid collections are seen. 3. Otherwise no significant change since previous examination. 4. Large soft tissue defect in the right buttock region extending to the right inferior pubic ramus. Underlying chronic osteitis cannot be excluded. 5. Few small nonobstructing stones in the right kidney without evidence of hydronephrosis. Electronically Signed: Alli Dorantes MD at 12:11 EDT Tel , Service support ,
--- NOTE | 2018-09-08 08:27 | PN.SURG_ITS ---
Subjective: vomited overnight NG placed, minimal air in stoma bag - Physical Exam General: Alert, Oriented x3, Cooperative Lungs: Clear to auscultation, Normal air movement Cardiovascular: Regular rate, No murmurs Abdomen: Non Tender, Hypoactive Bowel Sounds, Distended, - - stoma dusky superficially, stomascope red top tube was placed into stoma - pinker below fascia Vital Signs Temp Pulse Resp BP Pulse Ox 99.8 F H 113 H 21 H 119/59 L 93 09/08/18 06:38 09/08/18 06:38 09/08/18 06:38 09/08/18 06:38 09/08/18 06:38 Oxygen Flow Rate (L/min) 2 Oxygen Delivery Method Room Air Weight: 81 kg Body Mass Index (BMI) 27.9 Intake and Output for Last 24 Hours 09/06/18 09/07/18 09/08/18 23:59 23:59 23:59 Intake Total 2713 / 2713 3194 / 3194 579 / 579 Output Total 2400 / 2400 3850 / 3850 550 / 550 Balance 313 / 313 -656 / -656 Laboratory Tests Past 24 Hrs 09/08/18 09/08/18 05:45 05:45 WBC 8.7 RBC 3.68 L Hgb 9.9 L Hct 30.4 L MCV 82.6 MCH 26.9 L MCHC 32.6 RDW 16.4 H RDW Differential 48.2 H Plt Count 377 MPV 7.7 Immature Gran % (Auto) 0.300 Neut % (Auto) 64.7 Lymph % (Auto) 16.7 L [place] % (Auto) 17.7 H Eos % (Auto) 0.5 Baso % (Auto) 0.1 Absolute Neuts (auto) 5.7 Absolute Lymphs (auto) 1.46 Total Counted Not Reportable Differential Comment Diff Path Review May foll Sodium 134 L Potassium 3.8 Chloride 100 Carbon Dioxide 26.0 Anion Gap 8 BUN 17 Creatinine 0.46 L Estim Creat Clear Calc 151.68 Est GFR (MDRD) Af Amer 236 Est GFR (MDRD) Non-Af 195 BUN/Creatinine Ratio 36.9 H Glucose 79 Calcium 8.5 Total Bilirubin 0.30 AST 20 ALT 21 Alkaline Phosphatase 69 Total Protein 6.3 L Albumin 2.5 L Globulin 3.8 Albumin/Globulin Ratio 0.7 L Medical Necessity - Tobacco Use Smoking Status: Former smoker Assessment/Plan All Active Problems Pneumonia (Acute) SBO (small bowel obstruction) (Acute) Hypotension (Acute) Hyponatremia (Acute) POD # 4 s/p laparoscopic diverting colostomy for non healing stage 4 decubitus KUB demonstrated ileus versus SBO - NG placed will check CT scan to assure no obvious transition. will follow electrolytes given history of hyponatremia likely multifactorial urinary retention - will start flomax, block catheter for now Wound care per wound nurse
[2018-09-08] MEDS: 0.9% Normal Saline 1,000 ML 75 ML IV (09:39)
[2018-09-08] MEDS: 0.9% NaCl Peripheral Flush Adult/Peds IV ×3 (09:42→13:55)
[2018-09-08] MEDS: Nystatin Powder 15gm Bottle 1 APPLIC TOPICAL ×2 (09:43→21:33)
--- NOTE | 2018-09-08 09:56 | NURSING ---
VSA triggering q1hr vitals. This nurse called Dr. Nunez to inform. order for 1L NS bolus to be given now along with chest xray. This nurse asked Dr. Mayra barreraey can be removed. Dr. Nunez wants to keep block in for now b/c he might have to take the patient back to surgery.
[2018-09-08] MEDS: 0.9% Normal Saline 1,000 ML 999 ML IV (10:00)
--- NOTE | 2018-09-08 10:02 | RAD_ITS ---
STUDY: X-RAY CHEST REASON FOR EXAM: Male, 63 years old. Hypotension. TECHNIQUE: Single AP portable view of the chest. COMPARISON: 04/19/2018. FINDINGS: There is a nasogastric tube however the tip is not clearly seen beyond the lower chest. There are hypoventilatory changes in the left lung base. No focal infiltrate is seen. There is no demonstrated pleural abnormality. Normal size heart. Normal mediastinum and andrea. Normal visualized pulmonary arteries. Normal visualized aortic arch and descending thoracic aorta. There are mild degenerative changes of the visualized thoracic spine. There is degenerative osteoarthritis of the bilateral shoulders. There is no demonstrated abnormality of the visualized soft tissue structures of the upper abdomen. RAD/Chest 1 View (Portable) IMPRESSION: 1. Hypoventilatory changes. 2. No focal infiltrate is seen. Electronically Signed: Alli Dorantes MD at 13:44 EDT Tel , Service support ,
--- NOTE | 2018-09-08 10:22 | PN_ITS ---
Subjective: Consult for medical management: 63-year-old male with past medical history of anal cancer status post radiation/chemotherapy who comes in with a nonhealing stage IV decubitus ulcer. Patient was admitted for diabetic and colostomy to assist with wound healing. Underwent the procedure on 09/04/18. Postoperatively patient has continued to do well. Colostomy was noted to be dusky with bloody discharge in his colostomy bag. Today, patient was found to be febrile and hospital medicine consulted to assist with medical management. Patient denies any chest pain or dizziness or palpitations. He complains of pain in the sacral region. Vitals/I&O's: Vital Signs Temp Pulse Resp BP Pulse Ox 100.8 F H 116 H 20 H 100/59 L 92 09/08/18 09:30 09/08/18 10:07 09/08/18 09:30 09/08/18 10:07 09/08/18 09:30 Oxygen Flow Rate (L/min) 2 Oxygen Delivery Method Room Air Weight: 81 kg Body Mass Index (BMI) 27.9 Intake and Output for Last 24 Hours 09/06/18 09/07/18 09/08/18 23:59 23:59 23:59 Intake Total 2713 / 2713 3194 / 3194 579 / 579 Output Total 2400 / 2400 3850 / 3850 550 / 550 Balance 313 / 313 -656 / -656 General: Alert, Oriented x3, Cooperative, No apparent distress, - - 2 L of oxygen, appears lethargic HEENT: Atraumatic, PERRLA, EOMI, Normocephalic Oral: Moist Mucosa Neck: Supple Lungs: Normal air movement, Diminished Cardiovascular: Regular rate, Regular Rhythm, Normal S1, Normal S2, No murmurs, Tachycardic Abdomen: Bowel Sounds Present, Soft, Non Tender, Non-Distended, No Hepato- splenomegaly Extremities: No edema Skin: - - Stage IV decubitus ulcer with minimal sloughy areas, serosanguineous discharge, wound bed is pink and healthy Musculoskeletal: No Tenderness to Palpation of Joints or Extremities Lymphatic: No Cervical, Supraclavicular, or Inguinal Adenopathy Neurological: Cranial nerves II-XII grossly intact, Neuro grossly intact Psych/Mental Status: Normal Affect, Appropriate Laboratory Results 09/08/18 05:45: WBC 8.7, RBC 3.68 L, Hgb 9.9 L, Hct 30.4 L, MCV 82.6, MCH 26.9 L , MCHC 32.6, RDW 16.4 H, RDW Differential 48.2 H, Plt Count 377, MPV 7.7, Immature Gran % (Auto) 0.300, Neut % (Auto) 64.7, Lymph % (Auto) 16.7 L, [place] % (Auto) 17.7 H, Eos % (Auto) 0.5, Baso % (Auto) 0.1, Absolute Neuts (auto) 5.7, Absolute Lymphs (auto) 1.46, Total Counted Not Reportable, Differential Comment , Diff Path Review July09/08/18 05:45: Sodium 134 L, Potassium 3.8, Chloride 100, Carbon Dioxide 26.0, Anion Gap 8, BUN 17, Creatinine 0.46 L, Estim Creat Clear Calc 151.68, Est GFR (MDRD) Af Amer 236, Est GFR (MDRD) Non-Af 195, BUN/Creatinine Ratio 36.9 H, Glucose 79, Calcium 8.5, Total Bilirubin 0.30, AST 20, ALT 21, Alkaline Phosphatase 69, Total Protein 6.3 L, Albumin 2.5 L, Globulin 3.8, Albumin/Globulin Ratio 0.7 L Current Medications Acetaminophen (Tylenol) 1,000 mg PO Q6 [facility] Last Admin: 09/08/18 06:52 Dose: Not Given Documented by: Amlodipine Besylate (Norvasc) 5 mg PO DAILY [facility] Last Admin: 09/08/18 10:08 Dose: Not Given Documented by: Bupropion HCl (Wellbutrin Xl) 300 mg PO DAILY [facility] Last Admin: 09/08/18 09:42 Dose: Not Given Documented by: Buspirone HCl (Buspar) 5 mg PO TID [facility] Last Admin: 09/08/18 06:52 Dose: Not Given Documented by: Diphenoxylate HCl/Atropine (Lomotil) 1 tablet PO BID PRN PRN PRN Reason: Diarrhea Last Admin: 09/03/18 18:53 Dose: 1 tablet Documented by: Ezetimibe (Zetia) 10 mg PO DAILY@2200 [facility] Last Admin: 09/07/18 22:18 Dose: Not Given Documented by: Enoxaparin Sodium (Lovenox) 40 mg SC DAILY [facility] Last Admin: 09/08/18 10:08 Dose: Not Given Documented by: Escitalopram Oxalate (Lexapro) 10 mg PO DAILY [facility] Last Admin: 09/08/18 09:41 Dose: Not Given Documented by: Ferrous Gluconate (Ferrous Gluconate) 324 mg PO BIDCM [facility] Last Admin: 09/08/18 09:41 Dose: Not Given Documented by: Fluticasone Propionate (Flonase Nasal [place]) 2 spray NASAL DAILY [facility] Last Admin: 09/08/18 09:40 Dose: Not Given Documented by: Gabapentin (Neurontin) 600 mg PO TID [facility] Last Admin: 09/08/18 06:52 Dose: Not Given Documented by: Sodium Chloride () 1,000 mls @ 75 mls/hr IV .[id number] [facility] Last Admin: 09/08/18 09:39 Dose: 75 mls/hr Documented by: Sodium Chloride () 1,000 mls @ 999 mls/hr IV .Q1H1M ONE Stop: 09/08/18 11:03 Ibuprofen (Motrin) 800 mg PO Q8 [facility] Last Admin: 09/08/18 06:52 Dose: Not Given Documented by: Ipratropium Adel (Atrovent) 0.5 mg INHALATION Q6HWA.RT [facility] Last Admin: 09/08/18 06:40 Dose: Not Given Documented by: Lactobacillus Acidophilus (Acidophilus) 2 tablet PO TID [facility] Last Admin: 09/08/18 06:52 Dose: Not Given Documented by: Metoprolol Tartrate (Lopressor (Beta Joo)) 50 mg PO BID [facility] Last Admin: 09/08/18 10:07 Dose: Not Given Documented by: Morphine Sulfate () 1 - 3 mg IV Q3H PRN PRN PRN Reason: SEVERE PAIN (6-10/10) Last Admin: 09/08/18 00:37 Dose: 2 mg Documented by: Multivitamins (Multivitamin) 1 tablet PO DAILY@0800 [facility] Last Admin: 09/08/18 09:41 Dose: Not Given Documented by: Nutritional Formula (Chuy - [place] Flavor) 1 packet PO BID [facility] Last Admin: 09/08/18 09:40 Dose: Not Given Documented by: Nutritional Formula (Lactose Free) (Ensure Clear) 120 ml PO 4X/DAY [facility] Last Admin: 09/08/18 09:32 Dose: Not Given Documented by: Nystatin (Mycostatin Powder) 1 applic TOPICAL BID [facility]; Protocol Last Admin: 09/08/18 09:43 Dose: 1 applicatio Documented by: Ondansetron HCl (Zofran Odt) 4 mg PO Q6H PRN PRN PRN Reason: NAUSEA Last Admin: 09/08/18 01:14 Dose: 4 mg Documented by: Oxycodone HCl (Oxyir) 10 mg PO Q6H PRN PRN PRN Reason: PAIN Last Admin: 09/07/18 18:22 Dose: 10 mg Documented by: Pantoprazole Sodium (Protonix) 40 mg PO DAILY [facility] Last Admin: 09/08/18 10:08 Dose: Not Given Documented by: Sodium Chloride () 5 - 15 ml IV UD PRN PRN Reason: SALINE FLUSH Last Admin: 09/08/18 09:42 Dose: 10 ml Documented by: Tamsulosin HCl (Flomax) 0.8 mg PO DAILY@1730 [facility] Last Admin: 09/07/18 18:23 Dose: 0.8 mg Documented by: Tizanidine HCl (Zanaflex) 4 mg PO Q8H PRN PRN PRN Reason: SPASMS Last Admin: 09/04/18 17:50 Dose: 4 mg Documented by: Zinc Sulfate (Zinc Sulfate) 220 mg PO DAILY [facility] Last Admin: 09/08/18 09:42 Dose: Not Given Documented by: Medical Necessity - Tobacco Use Smoking Status: Former smoker Assessment/Plan All Active Problems Pneumonia (Acute) SBO (small bowel obstruction) (Acute) Hypotension (Acute) Hyponatremia (Acute) 83-year-old male past medical history of renal cancer status post radiation and chemotherapy, with chronic decubitus ulcer admitted for diverging colostomy by general surgery. Patient is postop day #4 and has fever and hospital medicine consulted for medical management. 1. Fever, tachycardia, no clear evidence of a source of infection, less likely from decubitus ulcer, likely secondary to his left stoma, Recent diverting colostomy, possibly translocation of bacteria from the gut CT scan of the abdomen shows markedly dilated fluid-filled small loops of bowel without an intra-abdominal abscess. Plan: We will plan for blood cultures when patient spikes fever more than 101F, will start empirically on IV Cipro and Flagyl to counteract for any bacterial translocation, trend CBCD in am. 2. Ileus, postop, POD #4 s/p diverting colostomy, discussed with Dr. Nunez who is aware and monitoring, s/p NG tube, under intermittent suction, will continue with IVF 3. Hypertension, on amlodipine, metoprolol, will put holding parameters for bloo d pressure less than 110 4. Stage IV decubitus ulcer, ulcer looks stable, not infected, serosanguineous discharge, wound nurse consulted 5. DVT PPx- Lovenox SC and SCDs - will trend HH and if dropping Hb, will stop Lovenox SC Code Visit Inpatient E&M: 77579 Subs Hosp L3
[2018-09-08] MEDS: metroNIDAZOLE 500 MG/100 ML BAG 100 MG IV ×2 (12:24→21:33)
--- NOTE | 2018-09-08 12:57 | NURSING ---
UA and urine culture sent down to lab.
[2018-09-08 13:19] LABS: Color, Urine Yellow (Yellow); Glucose, Dipstick Normal (Normal); Ketone-Dipstick 15 mg/dl (Negative); Leukocyte Esterase-Dipstick Negative /ul (Negative); Nitrite-Dipstick Negative (Negative); Occult Blood-Urine 25 /ul (Negative); Protein-Dipstick Negative (Negative); Specific Gravity, Urine 1.015 (1.002-1.030); Urine Bilirubin Dipstick Negative (Negative); Urine Clarity Clear (Clear); Urine Urobilinogen Normal (Normal)
[2018-09-08] MEDS: Ciprofloxacin 400 MG/200 ML BAG 200 MG IV ×2 (13:27→22:54)
[2018-09-08 18:53] LABS: Hematocrit 27.8 % (40-54); Hemoglobin 9.3 g/dl (13.0-16.5)
--- NOTE | 2018-09-08 19:07 | CPS ---
FOUND ON 2 L/M VIA NC
[2018-09-08 22:27] LABS: Hematocrit 29.6 % (40-54); Hemoglobin 9.8 g/dl (13.0-16.5)
[2018-09-09] VITALS (10 sets, daily range): BP systolic 115–155; BP diastolic 52–73; PULSE 96–106; RESP 16–18; TEMP 36.9–37.6; O2SAT 92–97
[2018-09-09] MEDS: Morphine 2 MG/ML Syringe IV ×6 (04:37→20:30)
[2018-09-09] MEDS: 0.9% Normal Saline 1,000 ML 75 ML IV ×2 (04:37→21:26)
[2018-09-09] MEDS: metroNIDAZOLE 500 MG/100 ML BAG 100 MG IV ×3 (05:07→21:26)
[2018-09-09 05:22] LABS: Absolute Lymphocyte Count 1.07 X10^3/ul (0.83-4.51); Absolute Neutrophil Count 5.4 X10^3/uL (2.0-7.7); Basophil# 0.02 X10^3/uL; Basophil% 0.2 % (0-1); Differential Indicated SCAN CRITERIA MET; Eosinophil# 0.37 X10^3/uL; Eosinophils% 4.4 % (0-5); Hematocrit 27.9 % (40-54); Hemoglobin 9.2 g/dl (13.0-16.5); Lymphocyte # 1.07 X10^3/ul (4.0); Lymphocyte % 12.7 % (19-41); Mean Corpuscular Hgb 27.6 pg (27.0-32.0); Mean Corpuscular Volume 83.8 fL (80-94); Mean Platelet Vol. 7.5 fl (6.2-12.0); Monocyte# 1.55 X10^3/uL; Monocyte% 18.4 % (0-10); Neutrophil # 5.35 X10^3/uL (2.7-7.7); Neutrophil % 63.7 % (47-70); POSITIVE COUNT NO; POSITIVE DIFFERENTIAL YES; POSITIVE MORPHOLOGY NO; Platelet Count 293 K/mm3 (150-450); RBC Distribution Width CV 16.5 % (11.6-14.6); RBC Distribution Width SD 50.6 fl (35.1-43.9); Red Blood Count 3.33 M/mm3 (4.6-6.2); White Blood Count 8.4 K/mm3 (4.4-11.0)
[2018-09-09 05:32] LABS: ALB/GLOB Ratio 0.7 RATIO (0.9-2.4); AST(SGOT) 24 U/L (15-37); Alanine Aminotransfer ALT/SGPT 20 U/L (16-61); Albumin, Serum 2.5 g/dL (3.2-5.0); Alkaline Phosphatase 65 U/L (45-117); Anion Gap 9 (5-15); BUN 11 mg/dL (7-18); BUN/Creat Ratio 28.7 RATIO (10-20); Calcium,Total 8.3 mg/dL (8.5-10.1); Chloride 101 mmol/L (98-107); Creatinine, Serum 0.38 mg/dL (0.70-1.30); EST Glomerular Filtration Rate 242 mL/min (>60); Est Glom Filt Rate - Afr Amer 292 mL/min (>60); Estimated Creatinine Clearance 183.61 ml/min; Globulin 3.8 g/dL (2.2-4.2); Glucose 89 mg/dL (74-106); Potassium 3.7 mmol/L (3.5-5.1); Protein, Total 6.3 g/dL (6.4-8.2); Sodium Level 137 mmol/L (136-145)
--- NOTE | 2018-09-09 06:12 | NURSING ---
Report given to Brittany in Endo.
--- NOTE | 2018-09-09 06:20 | RAD_ITS ---
STUDY: X-RAY - ABDOMEN/PELVIS REASON FOR EXAM: Male, 63 years old. Small bowel obstruction. TECHNIQUE: 4 views of the abdomen were obtained including decubitus views. COMPARISON: September 08, 2018. FINDINGS: Normal visualized lung bases. There are numerous distended loops of bowel noted in the abdomen with prominent air-fluid levels identified suggestive of small bowel obstruction. There is no demonstrated free abdominal air. The visualized liver, spleen and kidneys are grossly normal in size and morphology. Normal soft tissue structures. A left hip replacement is identified. RAD/Abd Inc Decub and/or Erect IMPRESSION: Findings consistent with small bowel obstruction. Findings appear grossly similar compared to prior study. Electronically Signed: Dae Powers, at 9:06 EDT Tel , Service support ,
--- NOTE | 2018-09-09 07:42 | PCA ---
pt off floor
[2018-09-09] MEDS: 0.9% NaCl Peripheral Flush Adult/Peds IV ×3 (08:29→20:30)
--- NOTE | 2018-09-09 09:03 | CT_ITS ---
STUDY: CT ABDOMEN AND PELVIS WITH CONTRAST REASON FOR EXAM: Male, 63 years old. Small bowel obstruction, 5 days status post colostomy RADIATION DOSAGE (If Supplied By Facility): CTDIvol = ( 12.18 ) mGy, DLP = ( 681.53 ) mGycm TECHNIQUE: Transaxial images were obtained from the dome of the diaphragm to the symphysis pubis with oral contrast. 15mL Oral Gastrografin was administered. Sagittal and coronal images were reconstructed. Individualized dose optimization techniques were used for this CT. COMPARISON: 09/08/2018 FINDINGS: Persistent infiltrate in the left lung base is stable. The visualized portions of the heart are within normal limits. Normal liver. There is no definite gallstones on this examination. Normal spleen. Normal pancreas. Normal bilateral adrenal glands. Nonobstructing calculi of the right kidney stable. No hydronephrosis. Left renal cyst is stable. Nasogastric tube terminates in the stomach. Several dilated loops of small bowel are similar in caliber since the prior study with dilation extending to the distal ileum. There is a transition point in the left lower quadrant on axial image 149 mild degree of small bowel wall thickening. Left lower quadrant colostomy is identified. Small amount of ascites in the dependent portion of the pelvis appears to be new since the prior study. No pneumoperitoneum. There is diffuse atherosclerotic calcification of the abdominal aorta, without a demonstrated aneurysm. Normal inferior vena cava. Normal retroperitoneum. The urinary bladder continues to be decompressed by Walker catheter. Large defect of the right buttock identified extending to the right obturator ring, which is mildly sclerotic. There is a small umbilical hernia containing fat. There are diffuse degenerative changes of the visualized lumbar spine. Small punctate air within the right abdominal wall likely injection sites. CT/Abdomen/Pel W ORAL Cont Only IMPRESSION: 1. Persistent small bowel obstruction with transition point in the left lower quadrant. Mild ascites is new. No pneumoperitoneum. 2. Left lower quadrant colostomy. 3. 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 4. Nonobstructing right nephrolithiasis. Electronically Signed: Chu Marcum MD at 15:56 EDT , Service support ,
--- NOTE | 2018-09-09 09:04 | PN.SURG_ITS ---
Subjective: no bowel movements, still complaining of abdominal distention - Physical Exam General: Alert, Oriented x3 Lungs: Clear to auscultation, Normal air movement Cardiovascular: No murmurs, No rub noted, No Gallop, Tachycardic Abdomen: Soft, Bowel Sounds Not Present, - - distended without tenderness. Stoma site-[place]/superficially ischemic at margin, pink just inside skin level Vital Signs Temp Pulse Resp BP Pulse Ox 98.4 F 99 16 124/52 H 96 09/09/18 08:12 09/09/18 08:12 09/09/18 08:12 09/09/18 08:12 09/09/18 08:12 Oxygen Flow Rate (L/min) 2 Oxygen Delivery Method Nasal Cannula Weight: 81 kg Body Mass Index (BMI) 27.9 Intake and Output for Last 24 Hours 09/07/18 09/08/18 09/09/18 23:59 23:59 23:59 Intake Total 3194 / 3194 3093 / 3093 762 / 762 Output Total 3850 / 3850 1999 750 / 750 Balance -656 / -656 1093 / 1093 Laboratory Tests Past 24 Hrs 09/08/18 09/08/18 09/08/18 12:50 17:30 22:10 WBC RBC Hgb 9.3 L 9.8 L Hct 27.8 L 29.6 L MCV MCH MCHC RDW RDW Differential Plt Count MPV Immature Gran % (Auto) Neut % (Auto) Lymph % (Auto) [place] % (Auto) Eos % (Auto) Baso % (Auto) Absolute Neuts (auto) Absolute Lymphs (auto) Total Counted Differential Comment Sodium Potassium Chloride Carbon Dioxide Anion Gap BUN Creatinine Estim Creat Clear Calc Est GFR (MDRD) Af Amer Est GFR (MDRD) Non-Af BUN/Creatinine Ratio Glucose Calcium Total Bilirubin AST ALT Alkaline Phosphatase Total Protein Albumin Globulin Albumin/Globulin Ratio Urine Color Yellow Urine Clarity Clear Urine pH 6.0 Ur Specific [place] 1.015 Urine Protein Negative Urine Glucose (UA) Normal Urine Ketones 15 H Urine Occult Blood 25 H Urine Nitrite Negative Urine Bilirubin Negative Urine Urobilinogen Normal Ur Leukocyte Esterase Negative 09/09/18 09/09/18 04:15 04:15 WBC 8.4 RBC 3.33 L Hgb 9.2 L Hct 27.9 L MCV 83.8 MCH 27.6 MCHC 33.0 RDW 16.5 H RDW Differential 50.6 H Plt Count 293 MPV 7.5 Immature Gran % (Auto) 0.600 Neut % (Auto) 63.7 Lymph % (Auto) 12.7 L [place] % (Auto) 18.4 H Eos % (Auto) 4.4 Baso % (Auto) 0.2 Absolute Neuts (auto) 5.4 Absolute Lymphs (auto) 1.07 Total Counted Not Reportable Differential Comment Sodium 137 Potassium 3.7 Chloride 101 Carbon Dioxide 27.0 Anion Gap 9 BUN 11 Creatinine 0.38 L Estim Creat Clear Calc 183.61 Est GFR (MDRD) Af Amer 292 Est GFR (MDRD) Non-Af 242 BUN/Creatinine Ratio 28.7 H Glucose 89 Calcium 8.3 L Total Bilirubin 0.30 AST 24 ALT 20 Alkaline Phosphatase 65 Total Protein 6.3 L Albumin 2.5 L Globulin 3.8 Albumin/Globulin Ratio 0.7 L Urine Color Urine Clarity Urine pH Ur Specific [place] Urine Protein Urine Glucose (UA) Urine Ketones Urine Occult Blood Urine Nitrite Urine Bilirubin Urine Urobilinogen Ur Leukocyte Esterase Medical Necessity - Tobacco Use Smoking Status: Former smoker Assessment/Plan All Active Problems Pneumonia (Acute) SBO (small bowel obstruction) (Acute) Hypotension (Acute) Hyponatremia (Acute) POD # 5 s/p laparoscopic diverting colostomy for non healing stage 4 decubitus KUB demonstrated ileus versus SBO - NG placed CT scan without contrast yesterday demonstrated dilated small bowel to ileocecal region without obvious transition point. There was no signs of closed loop obstruction or small bowel between sigmoid and wall and stoma creation site. There was no signs of intra- abdominal abscesses. There was no edema of the bowel leading up to the stoma. It was recommended to try repeating CAT scan with oral contrast. Patient had low-grade fever yesterday. Urinalysis was unremarkable. Chest x- ray demonstrated mild atelectasis.-CT scan demonstrated small left lower lobe infiltrate versus chronic scarring. endoscopy through stoma today demonstrated healthy appearing viable colon to the fascial margin. [place], viable colon above the fascia in the subcutaneous area with edema and pink bowel just below the skin surface where the edge of the mucosa appears dusky. My impression is the stoma is viable right up to the visualized portion. That is likely due to this being an end stoma and tension to stretch the colon edge to the skin edge. I anticipate this will slough superficially and heal but I am certain there is no significant ischemia of the stoma just below the skin edge will follow electrolytes given history of hyponatremia. Appreciate assistance of hospitalist service given confusing clinical picture. I plan to obtain a repeat CT scan of the abdomen with oral contrast. We will place a PICC line and switch oral medications to IV as appropriate. likely multifactorial urinary retention - will start flomax, block catheter for now Wound care/decubiti per wound nurse
[2018-09-09] MEDS: Nystatin Powder 15gm Bottle 1 APPLIC TOPICAL (09:51)
[2018-09-09] MEDS: Enoxaparin 40 MG/0.4 ML Syringe SC (09:53)
[2018-09-09] MEDS: Ciprofloxacin 400 MG/200 ML BAG 200 MG IV ×2 (10:27→22:47)
--- NOTE | 2018-09-09 10:58 | PCM.PN.HOSP ---
Subjective: Follow-up on medical consult: Patient was seen and examined. Underwent colonoscope today with pink mucosa at the fascia and below. Denies chest pain, dizziness, SOB. NG tube ins situ. Objective: Physical exam: General: Alert, Oriented x3, Cooperative, No apparent distress, - - 2 L of oxygen, looks better HEENT: Atraumatic, PERRLA, EOMI, Normocephalic, NG tube insitu Oral: Moist Mucosa Neck: Supple Lungs: Normal air movement, Diminished Cardiovascular: Regular rate, Regular Rhythm, Normal S1, Normal S2, No murmurs, Tachycardic Abdomen: Bowel Sounds Present, Soft, Non Tender, Non-Distended, No Hepato-splenomegaly Extremities: No edema Skin: - - Stage IV decubitus ulcer with minimal sloughy areas, serosanguineous discharge, wound bed is pink and healthy Musculoskeletal: No Tenderness to Palpation of Joints or Extremities Lymphatic: No Cervical, Supraclavicular, or Inguinal Adenopathy Neurological: Cranial nerves II-XII grossly intact, Neuro grossly intact Psych/Mental Status: Normal Affect, Appropriate Vitals/I&O's: Vital Signs Temp Pulse Resp BP Pulse Ox 98.4 F 99 16 124/52 H 96 09/09/18 08:12 09/09/18 08:12 09/09/18 08:12 09/09/18 08:12 09/09/18 08:12 Oxygen Flow Rate (L/min) 2 Oxygen Delivery Method Nasal Cannula Weight: 81 kg Body Mass Index (BMI) 27.9 Intake and Output for Last 24 Hours 09/07/18 09/08/18 09/09/18 23:59 23:59 23:59 Intake Total 3194 / 3194 3093 / 3093 762 / 762 Output Total 3850 / 3850 1999 / 1999 750 / 750 Balance -656 / -656 1093 / 1093 Laboratory Results 09/08/18 12:50: Urine Color Yellow, Urine Clarity Clear, Urine pH 6.0, Ur Specific [place] 1.015, Urine Protein Negative, Urine Glucose (UA) Normal, Urine Ketones 15 H, Urine Occult Blood 25 H, Urine Nitrite Negative, Urine Bilirubin Negative, Urine Urobilinogen Normal, Ur Leukocyte Esterase Negative 09/08/18 17:30: Hgb 9.3 L, Hct 27.8 L 09/08/18 22:10: Hgb 9.8 L, Hct 29.6 L 09/09/18 04:15: WBC 8.4, RBC 3.33 L, Hgb 9.2 L, Hct 27.9 L, MCV 83.8, MCH 27.6, MCHC 33.0, RDW 16.5 H, RDW Differential 50.6 H, Plt Count 293, MPV 7.5, Immature Gran % (Auto) 0.600, Neut % (Auto) 63.7, Lymph % (Auto) 12.7 L, [place] % (Auto) 18.4 H, Eos % (Auto) 4.4, Baso % (Auto) 0.2, Absolute Neuts (auto) 5.4, Absolute Lymphs (auto) 1.07, Total Counted Not Reportable, Differential Comment 09/09/18 04:15: Sodium 137, Potassium 3.7, Chloride 101, Carbon Dioxide 27.0, Anion Gap 9, BUN 11, Creatinine 0.38 L, Estim Creat Clear Calc 183.61, Est GFR (MDRD) Af Amer 292, Est GFR (MDRD) Non-Af 242, BUN/Creatinine Ratio 28.7 H, Glucose 89, Calcium 8.3 L, Total Bilirubin 0.30, AST 24, ALT 20, Alkaline Phosphatase 65, Total Protein 6.3 L, Albumin 2.5 L, Globulin 3.8, Albumin/Globulin Ratio 0.7 L Current Medications Acetaminophen (Tylenol) 1,000 mg PO Q6 [facility] Last Admin: 09/09/18 05:07 Dose: Not Given Documented by: Amlodipine Besylate (Norvasc) 5 mg PO DAILY [facility] Last Admin: 09/09/18 10:27 Dose: Not Given Documented by: Bupropion HCl (Wellbutrin Xl) 300 mg PO DAILY [facility] Last Admin: 09/09/18 09:50 Dose: Not Given Documented by: Buspirone HCl (Buspar) 5 mg PO TID [facility] Last Admin: 09/09/18 05:07 Dose: Not Given Documented by: Diphenoxylate HCl/Atropine (Lomotil) 1 tablet PO BID PRN PRN PRN Reason: Diarrhea Last Admin: 09/03/18 18:53 Dose: 1 tablet Documented by: Ezetimibe (Zetia) 10 mg PO DAILY@2200 [facility] Last Admin: 09/08/18 22:50 Dose: Not Given Documented by: Enoxaparin Sodium (Lovenox) 40 mg SC DAILY [facility] Last Admin: 09/09/18 09:53 Dose: 40 mg Documented by: Escitalopram Oxalate (Lexapro) 10 mg PO DAILY [facility] Last Admin: 09/09/18 09:36 Dose: Not Given Documented by: Ferrous Gluconate (Ferrous Gluconate) 324 mg PO BIDCM [facility] Last Admin: 09/09/18 08:25 Dose: Not Given Documented by: Fluticasone Propionate (Flonase Nasal [place]) 2 spray NASAL DAILY [facility] Last Admin: 09/09/18 09:51 Dose: Not Given Documented by: Gabapentin (Neurontin) 600 mg PO TID [facility] Last Admin: 09/09/18 05:07 Dose: Not Given Documented by: Sodium Chloride () 1,000 mls @ 75 mls/hr IV .[id number] [facility] Last Admin: 09/09/18 04:37 Dose: 75 mls/hr Documented by: Pantoprazole Sodium 40 mg/ (Sodium Chloride) 110 mls @ 330 mls/hr IV Q24 [facility] Last Admin: 09/09/18 09:39 Dose: 330 mls/hr Documented by: Ciprofloxacin (Cipro) 400 mg in 200 mls @ 200 mls/hr IV Q12 [facility] Last Admin: 09/09/18 10:27 Dose: 200 mls/hr Documented by: Metronidazole (Flagyl) 500 mg in 100 mls @ 100 mls/hr IV Q8 [facility] Last Admin: 09/09/18 05:07 Dose: 100 mls/hr Documented by: Ipratropium [place] (Atrovent) 0.5 mg INHALATION Q6HWA.RT [facility] Last Admin: 09/09/18 07:25 Dose: Not Given Documented by: Lactobacillus Acidophilus (Acidophilus) 2 tablet PO TID [facility] Last Admin: 09/09/18 05:07 Dose: Not Given Documented by: Metoprolol Tartrate (Lopressor (Beta Joo)) 50 mg PO BID [facility] Last Admin: 09/09/18 10:27 Dose: Not Given Documented by: Morphine Sulfate () 1 - 3 mg IV Q3H PRN PRN PRN Reason: SEVERE PAIN (6-10/10) Last Admin: 09/09/18 10:30 Dose: 1 mg Documented by: Multivitamins (Multivitamin) 1 tablet PO DAILY@0800 [facility] Last Admin: 09/09/18 08:25 Dose: Not Given Documented by: Nutritional Formula ([place] - [place] Flavor) 1 packet PO BID [facility] Last Admin: 09/09/18 09:36 Dose: Not Given Documented by: Nutritional Formula (Lactose Free) (Ensure Clear) 120 ml PO 4X/DAY [facility] Last Admin: 09/09/18 09:36 Dose: Not Given Documented by: Nystatin (Mycostatin Powder) 1 applic TOPICAL BID [facility]; Protocol Last Admin: 09/09/18 09:51 Dose: 1 applicatio Documented by: Ondansetron HCl (Zofran Odt) 4 mg PO Q6H PRN PRN PRN Reason: NAUSEA Last Admin: 09/08/18 01:14 Dose: 4 mg Documented by: Oxycodone HCl (Oxyir) 10 mg PO Q6H PRN PRN PRN Reason: PAIN Sodium Chloride () 5 - 15 ml IV UD PRN PRN Reason: SALINE FLUSH Last Admin: 09/09/18 08:29 Dose: 10 ml Documented by: Tamsulosin HCl (Flomax) 0.8 mg PO DAILY@1730 [facility] Last Admin: 09/08/18 17:38 Dose: Not Given Documented by: Tizanidine HCl (Zanaflex) 4 mg PO Q8H PRN PRN PRN Reason: SPASMS Last Admin: 09/04/18 17:50 Dose: 4 mg Documented by: Zinc Sulfate (Zinc Sulfate) 220 mg PO DAILY [facility] Last Admin: 09/09/18 09:51 Dose: Not Given Documented by: Medical Necessity - Tobacco Use Smoking Status: Former smoker Assessment/Plan All Active Problems Pneumonia (Acute) SBO (small bowel obstruction) (Acute) Hypotension (Acute) Hyponatremia (Acute) 63-year-old male with past medical history of renal cancer status post radiation and chemotherapy, with chronic decubitus ulcer admitted for diverging colostomy by general surgery on 09/04/18. Hospital medicine consulted for medical management for fever. 1. Fever, tachycardia, no clear evidence of a source of infection, no leucocytosis Less likely from decubitus ulcer, likely secondary to his left superficial aspect of the stoma, Recent diverting colostomy, possibly translocation of bacteria from the gut CT scan of the abdomen shows markedly dilated fluid-filled small loops of bowel without an intra-abdominal abscess. Blood cultures are pending, started empirically on IV cipro and flagyl 2. Ileus, postop, POD #5 s/p diverting colostomy, discussed with Dr. Nunez who is aware and monitoring, s/p NG tube, under intermittent suction, will continue with IVF 3. Hypertension, on amlodipine, metoprolol, kept NPO, will put on metorolol IV Q6 with holding parameters for blood pressure less than 110, HR <55 4. Stage IV decubitus ulcer, ulcer looks stable, not infected, serosanguineous discharge, wound nurse consulted 5. DVT PPx- Lovenox SC and SCDs Code Visit Inpatient E&M: 20680 Subs Hosp L2
--- NOTE | 2018-09-09 11:08 | NURSING ---
Gastrografin administered via ng tube in 3 different times. radiology aware. ng tube is clamped at this time.
[2018-09-09] MEDS: Metoprolol Tartrate 5 MG/5 ML Vial 2.5 MG IV (17:32)
[2018-09-10] VITALS (14 sets, daily range): BP systolic 137–170; BP diastolic 60–91; PULSE 79–97; RESP 16–18; TEMP 36.9–37.4; O2SAT 93–98
[2018-09-10] MEDS: Morphine 2 MG/ML Syringe IV ×5 (00:11→21:12)
[2018-09-10] MEDS: Metoprolol Tartrate 5 MG/5 ML Vial 2.5 MG IV ×4 (00:52→17:27)
--- NOTE | 2018-09-10 05:45 | RAD_ITS ---
STUDY: X-RAY - ABDOMEN/PELVIS REASON FOR EXAM: Male, 63 years old. History of small bowel obstruction. TECHNIQUE: AP supine and decubitus views of the abdomen and pelvis. COMPARISON: Comparison is made with prior study dated September 09, 2018. FINDINGS: And oral gastric tube is seen with the tip in the body of the stomach. There are dilated loops of the small intestine with a non-distended colon consistent with a small bowel obstruction. There is slightly less small bowel dilatation at this time. There is no demonstrated free abdominal air. Fecal material is seen in the colon. The visualized liver, spleen and kidneys are grossly normal in size and morphology. Air is seen within the soft tissues overlying the right groin. The patient is status post left hip replacement. Marked degree of osteoarthritis of the right hip joint. RAD/Abd Inc Decub and/or Erect IMPRESSION: Small bowel obstruction. Mild improvement as compared to prior study. Electronically Signed: Aauysh Ibarra, at 10:23 EDT , Service support ,
[2018-09-10 06:06] LABS: Absolute Lymphocyte Count 1.01 X10^3/ul (0.83-4.51); Absolute Neutrophil Count 5.8 X10^3/uL (2.0-7.7); Basophil# 0.01 X10^3/uL; Basophil% 0.1 % (0-1); Eosinophil# 0.29 X10^3/uL; Eosinophils% 3.4 % (0-5); Hematocrit 29.6 % (40-54); Hemoglobin 9.7 g/dl (13.0-16.5); Lymphocyte # 1.01 X10^3/ul (4.0); Lymphocyte % 11.7 % (19-41); Mean Corp Hgb Conc 32.8 g/gl (32-36); Mean Corpuscular Volume 82.5 fL (80-94); Mean Platelet Vol. 7.4 fl (6.2-12.0); Monocyte# 1.47 X10^3/uL; Monocyte% 17.1 % (0-10); Neutrophil # 5.76 X10^3/uL (2.7-7.7); Neutrophil % 66.8 % (47-70); Platelet Count 423 K/mm3 (150-450); RBC Distribution Width CV 15.9 % (11.6-14.6); RBC Distribution Width SD 46.4 fl (35.1-43.9); Red Blood Count 3.59 M/mm3 (4.6-6.2); White Blood Count 8.6 K/mm3 (4.4-11.0)
[2018-09-10] MEDS: metroNIDAZOLE 500 MG/100 ML BAG 100 MG IV ×3 (06:15→21:12)
[2018-09-10 06:24] LABS: POSITIVE COUNT NO; POSITIVE DIFFERENTIAL NO; POSITIVE MORPHOLOGY NO
--- NOTE | 2018-09-10 06:43 | NURSING ---
Dr. Nunez in at bedside this am, this RN burped colostomy bag and contents of bag emptied. Dr. Nunez visualized contents of colostomy bag and stated that there was stool present in bag. This RN changed patients gown at this time.
--- NOTE | 2018-09-10 06:59 | PCM.PROGNOTE ---
Subjective: Postoperative day #6 Cipro, Flagyl day #3 Pt is known to me from previous admissions. He has chronic hyponatremia and a non-healing stage 4 ischial decubitus ulcer. He is chronically non-compliant with off loading pressure from the wound he has failed flap in the recent past. He underwent a laparoscopic sigmoid diverting colostomy on 09/04/2018. Hospitalist service is on consult for Fever and tachycardia with no evidence of infection. CT scan of the abdomen showed markedly dilated fluid-filled small loops of bowel with no intra-abdominal abscess. The ulcer does not appear to be infected per Dr. Garcia's note. T-max for the past 24 hours was 99.6 and current temperature is 98.8. Vital signs are stable. White blood cell count is 8.6 with an unremarkable differential. Hemoglobin is stable at 9.7 and platelets are within normal limits. BMP is pending but the sodium was 137 on 630 in the creatinine was 0.38. Blood cultures drawn on 09/08/2018 are pending. A urine culture on 09/08/2018 is growing possible enterococcus. UA at the same time was negative for leukocyte esterase. All radiology was reviewed. KUB today consistent with SBO - Physical Exam General: Alert, Oriented x3, Cooperative HEENT: Atraumatic Oral: Dry Mucosa Neck: Supple, No JVD Lungs: Clear to auscultation Cardiovascular: Regular rate, Regular Rhythm, Normal S1, Normal S2, No murmurs Abdomen: Hypoactive Bowel Sounds, Distended, - - States his pain is adequately controlled. There is gas in the ostomy bag Extremities: No edema Skin: - - Stage IV decubitus ulcer involving the right initial area, no odor, wound base is granulating, wound margins are curling under. Yet again he is sitting on his backside......he has been admonished no to lie on his back or sit up in bed but, he is able to reposition himself and he is usually sitting up in bed on the ischial spines when I go in to examnine him......on most recent admission prior to this Neurological: Cranial nerves II-XII grossly intact, Neuro grossly intact Psych/Mental Status: Appropriate Vital Signs Temp Pulse Resp BP Pulse Ox 98.8 F 90 18 142/70 H 93 09/10/18 06:20 09/10/18 06:20 09/10/18 06:20 09/10/18 06:20 09/10/18 06:20 Oxygen Flow Rate (L/min) 2 Oxygen Delivery Method Room Air Weight: 178 lb 9.191 oz Body Mass Index (BMI) 27.9 Intake and Output for Last 24 Hours 09/08/18 09/09/18 09/10/18 23:59 23:59 23:59 Intake Total 3093 / 3093 2956 / 2956 406 / 406 Output Total 1999 2875 / 2875 725 / 725 Balance 1093 / 1093 81 / 81 -319 / -319 Microbiology Past 72 Hours 09/08/18 12:50 Urine Culture - Preliminary Urine Catheter - Walker GPC Poss Enterococcus sp Laboratory Tests Past 24 Hrs 09/10/18 09/10/18 05:04 05:04 WBC 8.6 RBC 3.59 L Hgb 9.7 L Hct 29.6 L MCV 82.5 MCH 27.0 MCHC 32.8 RDW 15.9 H RDW Differential 46.4 H Plt Count 423 MPV 7.4 Immature Gran % (Auto) 0.900 Neut % (Auto) 66.8 Lymph % (Auto) 11.7 L [place] % (Auto) 17.1 H Eos % (Auto) 3.4 Baso % (Auto) 0.1 Absolute Neuts (auto) 5.8 Absolute Lymphs (auto) 1.01 Total Counted Not Reportable Sodium Pending Potassium Pending Chloride Pending Carbon Dioxide Pending Anion Gap Pending BUN Pending Creatinine Pending Est GFR (MDRD) Af Amer Pending Est GFR (MDRD) Non-Af Pending BUN/Creatinine Ratio Pending Glucose Pending Calcium Pending Total Bilirubin Pending AST Pending ALT Pending Alkaline Phosphatase Pending Total Protein Pending Albumin Pending Medical Necessity - Tobacco Use Smoking Status: Former smoker Assessment/Plan All Active Problems Pneumonia (Acute) SBO (small bowel obstruction) (Acute) Hypotension (Acute) Hyponatremia (Acute) Impressions 1. Postoperative day #6-status post diverting colostomy 2. Small bowel obstruction versus ileus 3. Low-grade fever with tachycardia-resolved, etiology undetermined 4. History of anal cancer treated with radiation and chemotherapy 5. Peripheral vascular disease right lower extremity as a result of radiation 6. HTN 7. 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 Hypokalemia 9. Chronic hyponatremia Supplement potassium Continue normal saline at 75 cc/h Continue ciprofloxacin and metronidazole Enoxaparin 40 mg subcu daily for DVT prophylaxis Recheck BMP in the a.m. CT scan of the abdomen to be repeated on 09/11/2018 Continue IV metoprolol every 6 hours until the patient is able to tolerate a diet Add PRN hydralazine for systolic greater than 160 or diastolic greater than 85 Check a urine sodium and osmolality in the a.m. Code Visit Inpatient E&M: 96392 Subs Hosp L2
[2018-09-10 07:16] LABS: ALB/GLOB Ratio 0.6 RATIO (0.9-2.4); AST(SGOT) 22 U/L (15-37); Alanine Aminotransfer ALT/SGPT 17 U/L (16-61); Albumin, Serum 2.5 g/dL (3.2-5.0); Alkaline Phosphatase 71 U/L (45-117); Anion Gap 9 (5-15); BUN 7 mg/dL (7-18); BUN/Creat Ratio 22.9 RATIO (10-20); Calcium,Total 8.2 mg/dL (8.5-10.1); Chloride 98 mmol/L (98-107); Creatinine, Serum 0.31 mg/dL (0.70-1.30); EST Glomerular Filtration Rate 313 mL/min (>60); Est Glom Filt Rate - Afr Amer 379 mL/min (>60); Estimated Creatinine Clearance 225.07 ml/min; Glucose 86 mg/dL (74-106); Potassium 3.1 mmol/L (3.5-5.1); Protein, Total 6.5 g/dL (6.4-8.2); Sodium Level 133 mmol/L (136-145)
--- NOTE | 2018-09-10 08:40 | NURSING ---
removed ostomy appliance to better assess stoma and peristomal skin. there was still no stool noted in the appliance. there was a small amount of old bloody drainage and a small amount of flatus. pt is very grossed out by the odor. stoma remains very dark in color. there is a small amount of redness noted to the peristomal skin. abdomen is still distended and tender. cleansed peristomal skin with warm water. pat dry. applied a new flat [place] 2 piece appliance with a small amount of stoma paste. pt tolerated well. see stoma photo.
--- NOTE | 2018-09-10 08:47 | NURSING ---
wound photo: right elbow
--- NOTE | 2018-09-10 08:48 | NURSING ---
wound photo: right buttock
--- NOTE | 2018-09-10 08:49 | NURSING ---
stoma photo: left lower abdomen
[2018-09-10] MEDS: Ciprofloxacin 400 MG/200 ML BAG 200 MG IV ×2 (10:12→22:47)
[2018-09-10] MEDS: Fluticasone 0.05% 1 SPRAY NASAL.SRY 2 SPRAY NASAL (10:16)
[2018-09-10] MEDS: Enoxaparin 40 MG/0.4 ML Syringe SC (10:17)
[2018-09-10] MEDS: 0.9% NaCl Peripheral Flush Adult/Peds IV ×4 (11:27→15:05)
--- NOTE | 2018-09-10 11:41 | CASEMGMT ---
Addendum entered by Caroline Og 09/10/18 14:18: SHAHANA received call from Lynette at [facility] stating they will wait to submit for pre-cert as pt is not medically cleared and won't be for a few days. SHAHANA placed a call back to [place] confirming to wait to submit for pre-cert. Original Note: Social Work Note Pre-cert has . SHAHANA faxed updated clinicals to [facility] and wrote on fax cover sheet to resubmit for pre-cert. Plan: [facility] pending pre-cert Caroline Og PROTECTIVE SIGNAL REPAIRER, [employer]
--- NOTE | 2018-09-10 12:38 | PCM.PN.SRG ---
Subjective: patient with bowel movement into stoma bag and air in stoma bag, still abdominal distention - Physical Exam General: Alert, Oriented x3, Cooperative Lungs: Clear to auscultation, Normal air movement Cardiovascular: Regular rate, No murmurs Abdomen: Soft, Hypoactive Bowel Sounds, Distended - stool in emptied stoma bag Vital Signs Temp Pulse Resp BP Pulse Ox 98.4 F 83 18 152/91 H 94 09/10/18 08:54 09/10/18 11:28 09/10/18 08:54 09/10/18 11:28 09/10/18 08:54 Oxygen Flow Rate (L/min) 2 Oxygen Delivery Method Room Air Weight: 81 kg Body Mass Index (BMI) 27.9 Intake and Output for Last 24 Hours 09/08/18 09/09/18 09/10/18 23:59 23:59 23:59 Intake Total 3093 / 3093 2956 / 2956 416 / 416 Output Total 1999 2875 / 2875 725 / 725 Balance 1093 / 1093 81 / 81 -309 / -309 Microbiology Past 72 Hours 09/08/18 12:50 Urine Culture - Final Urine Catheter - Block Vancomycin Resist. E. faecalis Laboratory Tests Past 24 Hrs 09/10/18 09/10/18 05:04 05:04 WBC 8.6 RBC 3.59 L Hgb 9.7 L Hct 29.6 L MCV 82.5 MCH 27.0 MCHC 32.8 RDW 15.9 H RDW Differential 46.4 H Plt Count 423 MPV 7.4 Immature Gran % (Auto) 0.900 Neut % (Auto) 66.8 Lymph % (Auto) 11.7 L [place] % (Auto) 17.1 H Eos % (Auto) 3.4 Baso % (Auto) 0.1 Absolute Neuts (auto) 5.8 Absolute Lymphs (auto) 1.01 Total Counted Not Reportable Sodium 133 L Potassium 3.1 L Chloride 98 Carbon Dioxide 26.0 Anion Gap 9 BUN 7 Creatinine 0.31 L Estim Creat Clear Calc 225.07 Est GFR (MDRD) Af Amer 379 Est GFR (MDRD) Non-Af 313 BUN/Creatinine Ratio 22.9 H Glucose 86 Calcium 8.2 L Total Bilirubin 0.30 AST 22 ALT 17 Alkaline Phosphatase 71 Total Protein 6.5 Albumin 2.5 L Globulin 4.0 Albumin/Globulin Ratio 0.6 L Medical Necessity - Tobacco Use Smoking Status: Former smoker Assessment/Plan All Active Problems Pneumonia (Acute) SBO (small bowel obstruction) (Acute) Hypotension (Acute) Hyponatremia (Acute) POD # 6 s/p laparoscopic diverting colostomy for non healing stage 4 decubitus KUB demonstrated ileus versus SBO - NG placed CT scan without contrast yesterday demonstrated dilated small bowel to ileocecal region without obvious transition point. There was no signs of closed loop obstruction or small bowel between sigmoid and wall and stoma creation site. There was no signs of intra-abdominal abscesses. There was no edema of the bowel leading up to the stoma. It was recommended to try repeating CAT scan with oral contrast. Patient had low-grade fever yesterday. Urinalysis was unremarkable. Chest x-ray demonstrated mild atelectasis.-CT scan demonstrated small left lower lobe infiltrate versus chronic scarring. endoscopy through stoma today demonstrated healthy appearing viable colon to the fascial margin. [place], viable colon above the fascia in the subcutaneous area with edema and pink bowel just below the skin surface where the edge of the mucosa appears dusky. My impression is the stoma is viable right up to the visualized portion. That is likely due to this being an end stoma and tension to stretch the colon edge to the skin edge. I anticipate this will slough superficially and heal but I am certain there is no significant ischemia of the stoma just below the skin edge will follow electrolytes given history of hyponatremia. Appreciate assistance of hospitalist service given confusing clinical picture. Repeat CT scan of the abdomen and pelvis with oral contrast. still suggesting SBO with transition point in left pelvis. This is below the stoma site and actually along the margin on the lower sigmoid colon. No prior abdominal surgery. Patient did have 4-5 day post colonoscopy ileus 2 years prior. KUB today slightly improved, ? contrast in colon. stool and more air in stoma bag. will review films with radiologist, decide about repeat CT to assess contrast progress given confusing clinical picture. We will place a PICC line and switch oral medications to IV as appropriate. likely multifactorial urinary retention - block catheter for now Wound care/decubiti per wound nurse
[2018-09-10 12:46] LABS: Pathologist Review Reviewed
[2018-09-10] MEDS: proCHLORPERazine 10 MG/2 ML Vial 5 MG IV (13:46)
[2018-09-10] MEDS: 0.9% Normal Saline 1,000 ML 75 ML IV (17:27)
[2018-09-10] MEDS: Potassium Chloride 10mEq/100mL 10 MEQ/100 ML IV.SOLN. 100 MEQ IV BOLUS ×3 (20:50→22:47)
[2018-09-11] VITALS (18 sets, daily range): BP systolic 141–171; BP diastolic 64–76; PULSE 61–100; RESP 16–18; TEMP 37.1–37.3; O2SAT 94–99
[2018-09-11] MEDS: Morphine 2 MG/ML Syringe IV ×7 (00:13→21:46)
[2018-09-11] MEDS: 0.9% NaCl Peripheral Flush Adult/Peds IV ×9 (03:34→23:11)
[2018-09-11 05:27] LABS: Anion Gap 8 (5-15); BUN 7 mg/dL (7-18); Calcium,Total 8.1 mg/dL (8.5-10.1); Chloride 98 mmol/L (98-107); Creatinine, Serum 0.37 mg/dL (0.70-1.30); EST Glomerular Filtration Rate 253 mL/min (>60); Est Glom Filt Rate - Afr Amer 306 mL/min (>60); Estimated Creatinine Clearance 188.57 ml/min; Glucose 82 mg/dL (74-106); Magnesium 1.9 mg/dL (1.6-2.6); Phosphorus 2.5 mg/dL (2.5-4.9); Potassium 3.4 mmol/L (3.5-5.1); Sodium Level 135 mmol/L (136-145)
--- NOTE | 2018-09-11 05:30 | CT_ITS ---
STUDY: CT ABDOMEN AND PELVIS WITHOUT CONTRAST REASON FOR EXAM: Male, 63 years old. Small bowel obstruction RADIATION DOSAGE (If Supplied By Facility): CTDIvol = ( 21.31 ) mGy, DLP = ( 1107.46 ) mGycm TECHNIQUE: Transaxial images were obtained from the dome of the diaphragm to the symphysis pubis without oral contrast, and without intravenous contrast. Sagittal and coronal images were reconstructed. Individualized dose optimization techniques were used for this CT. COMPARISON: None. FINDINGS: Patchy airspace infiltration at the left lung base. Right lung base is clear. The visualized portions of the heart are within normal limits. Normal liver. Normal gallbladder and extrahepatic biliary system. Normal spleen. Normal pancreas. Normal bilateral adrenal glands. Hypoattenuated lesion arising off of the posterior left upper near water density. Calcifications in the mid right renal pelvis measuring less than 3 no hydronephrosis.. Normal visualized stomach. Dilated air and fluid-filled loops of small bowel within the left mid abdomen measuring up to 4.5 cm distention, slightly decreased in caliber compared to prior imaging, with transition point again seen in the left lower quadrant. There are decompressed ileal loops in the central pelvis. There is contrast within the ascending and transverse colonic segments. Left lower quadrant diverting colostomy. The appendix is visualized and appears normal. Moderate atherosclerotic calcification of the abdominal vasculature. Normal inferior vena cava. Normal retroperitoneum. There is a small amount of free fluid in the pelvic cavity. There is no free air. Normal urinary bladder. Normal abdominal wall. Right sacral decubitus ulcer, contiguous with the rectum and unchanged in appearance. There are diffuse degenerative changes of the visualized lumbar spine. CT/Abdomen/Pelvis without Cont IMPRESSION: 1. Partial small bowel obstruction which is slightly improved compared to prior imaging, with persistent transition point seen in the left lower quadrant. 2. Small amount of free fluid in the pelvic cavity. 3. Simple appearing left upper renal pole cyst. 4. Right sacral decubitus ulcer contiguous with the rectum. 5. Nonobstructing right renal calculi measuring less than 2 mm. Electronically Signed: Raleigh Ramos MD at 4:46 EDT Tel , Service support ,
[2018-09-11] MEDS: metroNIDAZOLE 500 MG/100 ML BAG 100 MG IV ×3 (05:56→22:49)
[2018-09-11] MEDS: Metoprolol Tartrate 5 MG/5 ML Vial 2.5 MG IV ×5 (05:57→23:09)
[2018-09-11 06:36] LABS: Urine Sodium 173 mmol/L (Not Establ.)
[2018-09-11 06:56] LABS: Osmolality, Urine 508 mOsm/KG
--- NOTE | 2018-09-11 06:57 | PCM.PROGNOTE ---
Subjective: Postoperative day #7 status post diverting colostomy Antibiotics day #4-Cipro and Flagyl All events of the past 24 hours of been reviewed. Afebrile, vital signs are stable (systolic blood pressure is mildly elevated at times) 94% on room air Fluid balance on 09/10/2018 is -909. Fluid balance since admission is +3941. All lab was personally reviewed. Sodium is 135 today and the potassium is low at 3.4, up from 3.1 after supplementation. Magnesium and phosphorus are both within normal limits. Urine random sodium is 173 and the urine osmolality is 508 which is not consistent with sodium depletion. He has not been on diuretics. CT scan of the abdomen and pelvis without contrast today shows a partial small bowel obstruction which is slightly improved compared to prior imaging with persistent transition point seen in the left lower quadrant. - Physical Exam General: Alert, Oriented x3, - - looks uncomfortable Oral: Dry Mucosa Neck: No JVD Lungs: Clear to auscultation, Diminished Cardiovascular: Regular rate, Regular Rhythm, Normal S1, Normal S2, No Gallop Abdomen: Hypoactive Bowel Sounds, Distended, Tender Extremities: No edema Skin: No rashes Vital Signs Temp Pulse Resp BP Pulse Ox 99.2 F H 92 16 149/64 H 94 09/11/18 03:46 09/11/18 05:57 09/11/18 03:46 09/11/18 03:46 09/11/18 03:46 Oxygen Flow Rate (L/min) 2 Oxygen Delivery Method Room Air Weight: 178 lb 9.191 oz Body Mass Index (BMI) 27.9 Intake and Output for Last 24 Hours 09/09/18 09/10/18 09/11/18 23:59 23:59 23:59 Intake Total 2956 / 2956 1566 / 1566 1486 / 1486 Output Total 2875 / 2875 2475 / 2475 1725 / 1725 Balance 81 / 81 -909 / -909 -239 / -239 Microbiology Past 72 Hours 09/08/18 12:50 Urine Culture - Final Urine Catheter - Walker Vancomycin Resist. E. faecalis Laboratory Tests Past 24 Hrs 09/08/18 09/10/18 09/11/18 05:45 05:04 04:40 Diff Path Review Reviewed Sodium 133 L 135 L Potassium 3.1 L 3.4 L Chloride 98 98 Carbon Dioxide 26.0 29.0 Anion Gap 9 8 BUN 7 7 Creatinine 0.31 L 0.37 L Estim Creat Clear Calc 225.07 188.57 Est GFR (MDRD) Af Amer 379 306 Est GFR (MDRD) Non-Af 313 253 BUN/Creatinine Ratio 22.9 H 19.0 Glucose 86 82 Calcium 8.2 L 8.1 L Phosphorus 2.5 Magnesium 1.9 Total Bilirubin 0.30 AST 22 ALT 17 Alkaline Phosphatase 71 Total Protein 6.5 Albumin 2.5 L Globulin 4.0 Albumin/Globulin Ratio 0.6 L Urine Osmolality Ur Random Sodium 09/11/18 09/11/18 06:00 06:00 Diff Path Review Sodium Potassium Chloride Carbon Dioxide Anion Gap BUN Creatinine Estim Creat Clear Calc Est GFR (MDRD) Af Amer Est GFR (MDRD) Non-Af BUN/Creatinine Ratio Glucose Calcium Phosphorus Magnesium Total Bilirubin AST ALT Alkaline Phosphatase Total Protein Albumin Globulin Albumin/Globulin Ratio Urine Osmolality 508 Ur Random Sodium 173 Medical Necessity - Tobacco Use Smoking Status: Former smoker Assessment/Plan All Active Problems Pneumonia (Acute) SBO (small bowel obstruction) (Acute) Hypotension (Acute) Hyponatremia (Acute) Impressions 1. Postoperative day #7-status post diverting colostomy 2. ileus vs SBO 3. Low-grade fever with tachycardia-resolved, etiology undetermined 4. History of anal cancer treated with radiation and chemotherapy - has had endothelial damage related to the radiation he has had in the past and this is contributing to the non-healing of the ischial ulcer......in conjunction with inadequate pressure relief and non-compliance with position changes. 5. 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 HTN 7. 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 Hypokalemia 9. Chronic hyponatremia - SIADH continue the current care ' Code Visit Inpatient E&M: 89645 Subs Hosp L1
[2018-09-11] MEDS: Potassium Chloride 10mEq/100mL 10 MEQ/100 ML IV.SOLN. 100 MEQ IV BOLUS ×3 (07:43→08:57)
--- NOTE | 2018-09-11 08:25 | NURSING ---
Pt has small amount of soft brown stool noted in the ostomy appliance today. much less distention noted to abdomen. patient denies pain. states I just want to eat. NG tube had come out this am patient states. stoma still very dusky in color. will continue ostomy education with patient. pt still c/o the odor.
[2018-09-11] MEDS: Fluticasone 0.05% 1 SPRAY NASAL.SRY 2 SPRAY NASAL (09:47)
[2018-09-11] MEDS: Enoxaparin 40 MG/0.4 ML Syringe SC (09:51)
[2018-09-11] MEDS: Ciprofloxacin 400 MG/200 ML BAG 200 MG IV ×2 (10:33→21:46)
--- NOTE | 2018-09-11 13:46 | CASEMGMT ---
Social Work Note SW faxed updated clinicals to [facility]. Pt not medically ready to submit for pre-cert yet. Plan: [facility] pending pre-cert Caroline Og CLOTHING PRESSER, SCHOOL BOAT DRIVER
--- NOTE | 2018-09-11 14:53 | CHAPLAIN ---
Type of Pastoral Visit ___ Initial Visit _x__ Follow-up Visit ___ On-call Visit ___ General Patient Visit ___ Spiritual Assessment ___ Family Conference ___ Bereavement ___ Rapid Response ___ Code Blue ___ Other (describe below) Pastoral Care Referral From _x__ Patient ___ Family ___ Nurse ___ Physician ___ Lecturer In Marketing ___ Stack Attendant ___ Other (describe below) Sacrament/Intervention _x__ Active listening ___ Anointing ___ Episcopalian ___ Bereavement ___ Communion ___ Bceka exploration ___ ___ Life review _x__ Prayer ___ Reconciliation ___ Sacrament of Sick _x__ Supportive presence ___ Wedding ___ Other (describe below) Pastoral Comments
--- NOTE | 2018-09-11 19:44 | PN.SURG_ITS ---
Subjective: no nausea, want coffee - Physical Exam General: Alert, Oriented x3, Cooperative Lungs: Clear to auscultation, Normal air movement Cardiovascular: Regular rate, No murmurs Abdomen: Bowel Sounds Present, Soft, Hypoactive Bowel Sounds, - - air in stoma bag Vital Signs Temp Pulse Resp BP Pulse Ox 98.9 F 93 16 168/75 H 96 09/11/18 14:18 09/11/18 17:07 09/11/18 14:18 09/11/18 14:18 09/11/18 14:18 Oxygen Flow Rate (L/min) 2 Oxygen Delivery Method Room Air Weight: 81 kg Body Mass Index (BMI) 27.9 Intake and Output for Last 24 Hours 09/09/18 09/10/18 09/11/18 23:59 23:59 23:59 Intake Total 2956 / 2956 1566 / 1566 3210 / 3210 Output Total 2875 / 2875 2475 / 2475 4175 / 4175 Balance 81 / 81 -909 / -909 -965 / -965 Microbiology Past 72 Hours 09/08/18 17:30 Blood Culture - Preliminary Blood Culture (Wb) - Left Hand No growth in 48 hours. 09/08/18 16:40 Blood Culture - Preliminary Blood Culture (Wb) - Left Hand No growth in 48 hours. 09/08/18 12:50 Urine Culture - Final Urine Catheter - Block Vancomycin Resist. E. faecalis Laboratory Tests Past 24 Hrs 09/11/18 09/11/18 09/11/18 04:40 06:00 06:00 Sodium 135 L Potassium 3.4 L Chloride 98 Carbon Dioxide 29.0 Anion Gap 8 BUN 7 Creatinine 0.37 L Estim Creat Clear Calc 188.57 Est GFR (MDRD) Af Amer 306 Est GFR (MDRD) Non-Af 253 BUN/Creatinine Ratio 19.0 Glucose 82 Calcium 8.1 L Phosphorus 2.5 Magnesium 1.9 Urine Osmolality 508 Ur Random Sodium 173 Medical Necessity - Tobacco Use Smoking Status: Former smoker Assessment/Plan All Active Problems Pneumonia (Acute) SBO (small bowel obstruction) (Acute) Hypotension (Acute) Hyponatremia (Acute) POD # 7 s/p laparoscopic diverting colostomy for non healing stage 4 decubitus KUB demonstrated ileus versus SBO - NG placed CT scan without contrast yesterday demonstrated dilated small bowel to ileocecal region without obvious transition point. There was no signs of closed loop obstruction or small bowel between sigmoid and wall and stoma creation site. There was no signs of intra- abdominal abscesses. There was no edema of the bowel leading up to the stoma. It was recommended to try repeating CAT scan with oral contrast. Patient had low-grade fever yesterday. Urinalysis was unremarkable. Chest x- ray demonstrated mild atelectasis.-CT scan demonstrated small left lower lobe infiltrate versus chronic scarring. endoscopy through stoma today demonstrated healthy appearing viable colon to the fascial margin. [place], viable colon above the fascia in the subcutaneous area with edema and pink bowel just below the skin surface where the edge of the mucosa appears dusky. My impression is the stoma is viable right up to the visualized portion. That is likely due to this being an end stoma and tension to stretch the colon edge to the skin edge. I anticipate this will slough superficially and heal but I am certain there is no significant ischemia of the stoma just below the skin edge will follow electrolytes given history of hyponatremia. Appreciate assistance of hospitalist service given confusing clinical picture. Repeat CT scan of the abdomen and pelvis with oral contrast. still suggesting SBO with transition point in left pelvis but there is less small bowel distention. The transition point does not seem to be in the same location as the previous CAT scan and there is contrast in the colon-cecum ascending colon and transverse colon with minimal contrast still in the small bowel. This is below the stoma site and actually along the margin on the lower sigmoid colon. No prior abdominal surgery. Patient did have 4-5 day post colonoscopy ileus 2 years prior. patient requested NG tube to be removed. This was removed. He tolerated NG tube removal and is requesting clear liquids. We will restart clear liquids. If he fails clear liquids, will plan to explore at that time. We will place a PICC line and switch oral medications to IV as appropriate. likely multifactorial urinary retention - block catheter for now Wound care/decubiti per wound nurse
[2018-09-11] MEDS: hydrALAZINE 20 MG/ML Vial 10 MG IV (20:35)
[2018-09-11] MEDS: proCHLORPERazine 10 MG/2 ML Vial 5 MG IV (20:36)
[2018-09-12] VITALS (12 sets, daily range): BP systolic 127–160; BP diastolic 60–80; PULSE 76–96; RESP 16–18; TEMP 36.8–37.2; O2SAT 92–98
[2018-09-12] MEDS: 0.9% NaCl Peripheral Flush Adult/Peds IV ×3 (04:37→06:01)
[2018-09-12] MEDS: Morphine 2 MG/ML Syringe IV ×4 (04:38→21:15)
[2018-09-12 05:50] LABS: Hematocrit 31.8 % (40-54); Hemoglobin 10.6 g/dl (13.0-16.5); Mean Corp Hgb Conc 33.3 g/gl (32-36); Mean Corpuscular Hgb 27.3 pg (27.0-32.0); Mean Platelet Vol. 7.1 fl (6.2-12.0); Platelet Count 426 K/mm3 (150-450); RBC Distribution Width CV 15.6 % (11.6-14.6); RBC Distribution Width SD 46.2 fl (35.1-43.9); Red Blood Count 3.88 M/mm3 (4.6-6.2); White Blood Count 10.1 K/mm3 (4.4-11.0)
[2018-09-12] MEDS: metroNIDAZOLE 500 MG/100 ML BAG 100 MG IV ×3 (06:00→21:06)
[2018-09-12] MEDS: Metoprolol Tartrate 5 MG/5 ML Vial 2.5 MG IV ×3 (06:00→18:24)
[2018-09-12 06:05] LABS: Scan Indicated on CBC? Y/N NO
[2018-09-12 06:16] LABS: Anion Gap 10 (5-15); BUN 8 mg/dL (7-18); BUN/Creat Ratio 18.6 RATIO (10-20); Calcium,Total 8.4 mg/dL (8.5-10.1); Chloride 96 mmol/L (98-107); Creatinine, Serum 0.43 mg/dL (0.70-1.30); EST Glomerular Filtration Rate 212 mL/min (>60); Est Glom Filt Rate - Afr Amer 257 mL/min (>60); Estimated Creatinine Clearance 162.26 ml/min; Glucose 105 mg/dL (74-106); Potassium 3.8 mmol/L (3.5-5.1); Sodium Level 134 mmol/L (136-145)
--- NOTE | 2018-09-12 09:51 | NURSING ---
Pt is currently sitting up in the chair. abdomen is soft, maybe slightly distended. pt denies nausea at this time. a large amount of thick brown stool noted in the ostomy appliance at this time. appliance emptied. patient is still very concerned about the stool odor. discussed with patient the need for him to learn how to change/empty the appliance. pt states he cannot past the odor right now. appliance is intact. right elbow dressing changed, but the right buttock dressing will need to be changed after patient gets back to bed. will continue to monitor.
--- NOTE | 2018-09-12 09:51 | CASEMGMT ---
Social Work Note SHAHANA spoke with Lynette at [facility] and updated her that physician is advancing diet today and will monitor to see if pt tolerates diet well. If pt doesn't tolerate diet well then pt would likely need surgery again. SHAHANA informed Lynette to not submit for pre-cert yet and hopefully this worker will have an update later today. Lynette states understanding. Plan: [facility] pending pre-cert Caroline Og CODING TEAM LEAD, HSE COORDINATOR
[2018-09-12] MEDS: Fluticasone 0.05% 1 SPRAY NASAL.SRY 2 SPRAY NASAL (09:53)
[2018-09-12] MEDS: Enoxaparin 40 MG/0.4 ML Syringe SC (09:53)
[2018-09-12] MEDS: Ciprofloxacin 400 MG/200 ML BAG 200 MG IV ×2 (09:54→22:06)
--- NOTE | 2018-09-12 10:44 | OP.ENDO_ITS ---
09/12/2018 Winnie Gonzales [address] [id number] Re : Colonoscopy procedure for Justin Rincon Dear Dr. Gonzales This procedure was performed on Sunday, September 09, 2018. My impressions and recommendations are as follows: Impressions : - The mid sigmoid colon is normal. - The surgical stoma is normal. - Congested mucosa at the surgical stoma. - The external visable mucosa vascular pattern at the surgical stoma. - No specimens collected. Recommendations : - Return patient to [facility] for ongoing care. - Repeat colonoscopy PRN. - Continue present medications. My findings are described in the full procedure note, which is enclosed. If I can be of further assistance, please feel free to contact me at Doctor phone number(s): , Work: . Sincerely, Nicholas Nunez MD 09/09/2018 7:19:10 AM This report has been signed electronically.
--- NOTE | 2018-09-12 16:27 | PCM.PROGNOTE ---
Subjective: Postoperative day #8 Antibiotics day #5 All events of the past 24 hours of been reviewed. He remains afebrile. Vital signs are stable and he is maintaining appropriate oxygen saturation on room air. Fluid balance since admission is +1463. All lab was personally reviewed. White blood cell count today is 10.1. Hemoglobin is stable at 10.6 and platelets are within normal limits. Sodium is 134 today and the BUN is 8 with a creatinine of 0.43. Blood cultures from 09/08/2018 had no growth. Urine culture had VRE however UA showed no leukocyte Estrace and was negative for nitrate. This is likely due to colonization. He was started on clear liquids on 09/11/2018 and is tolerating. Took 750 today so far He had one emesis last night but has not had any since. He denies nausea. There is gas and semi-formed stool present in the colostomy bag. Denies shortness of breath, chest pain, palpitations. - Physical Exam General: Alert, Oriented x3, Cooperative, No apparent distress, - - Once again he was lying flat on his back when I entered the room and he was also sitting up in the chair today. Oral: Moist Mucosa Neck: Supple, No JVD Lungs: Clear to auscultation Cardiovascular: Regular rate, Regular Rhythm, Normal S1, Normal S2, No Gallop Abdomen: Bowel Sounds Present, Soft, Distended - mild, Tender, - - semi-formed stool is present in the colostomy bag Extremities: No edema Neurological: Cranial nerves II-XII grossly intact, Neuro grossly intact Psych/Mental Status: Normal Affect, Appropriate Vital Signs Temp Pulse Resp BP Pulse Ox 98.7 F 87 18 147/60 H 96 09/12/18 15:20 09/12/18 15:20 09/12/18 15:20 09/12/18 15:20 09/12/18 15:20 Oxygen Flow Rate (L/min) 2 Oxygen Delivery Method Room Air Weight: 178 lb 9.191 oz Body Mass Index (BMI) 27.9 Intake and Output for Last 24 Hours 09/10/18 09/11/18 09/12/18 23:59 23:59 23:59 Intake Total 1566 / 1566 3891 / 3891 1292 / 1292 Output Total 2475 / 2475 6425 / 6425 1475 / 1475 Balance -909 / -909 -2534 / -2534 -183 / -183 Microbiology Past 72 Hours 09/08/18 17:30 Blood Culture - Preliminary Blood Culture (Wb) - Left Hand No growth in 48 hours. 09/08/18 16:40 Blood Culture - Preliminary Blood Culture (Wb) - Left Hand No growth in 48 hours. 09/08/18 12:50 Urine Culture - Final Urine Catheter - Walker Vancomycin Resist. E. faecalis Laboratory Tests Past 24 Hrs 09/12/18 09/12/18 05:35 05:35 WBC 10.1 RBC 3.88 L Hgb 10.6 L Hct 31.8 L MCV 82.0 MCH 27.3 MCHC 33.3 RDW 15.6 H RDW Differential 46.2 H Plt Count 426 MPV 7.1 Sodium 134 L Potassium 3.8 Chloride 96 L Carbon Dioxide 28.0 Anion Gap 10 BUN 8 Creatinine 0.43 L Estim Creat Clear Calc 162.26 Est GFR (MDRD) Af Amer 257 Est GFR (MDRD) Non-Af 212 BUN/Creatinine Ratio 18.6 Glucose 105 Calcium 8.4 L Medical Necessity - Tobacco Use Smoking Status: Former smoker Assessment/Plan All Active Problems Pneumonia (Acute) SBO (small bowel obstruction) (Acute) Hypotension (Acute) Hyponatremia (Acute) Impressions 1. Postoperative day #8-status post diverting colostomy 2. ileus has resolved-tolerating clear liquids 3. Low-grade fever with tachycardia-resolved, etiology undetermined 4. History of anal cancer treated with radiation and chemotherapy - has had endothelial damage related to the radiation he has had in the past and this is contributing to the non-healing of the ischial ulcer......in conjunction with inadequate pressure relief and non-compliance with position changes. 5. 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 HTN 7. 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 Hypokalemia 9. Chronic hyponatremia - SIADH Continue ciprofloxacin and metronidazole Transition Protonix to p.o. Restart Flomax and discontinue Walker catheter in the next 24 to 48 hours Will need to D/W the DC retail planner whether he can get a Clinitron mattress and a Roho cushion at the SN[facility] he is living at. I explained again to the pt why the wound will not heal if there is not adequate pressure relief.........kayla since he has had endothelial damage from the radiation and has had PVD and a stent because of this. He may be a candidate for hyperbarics IF he is going to be more compliant Code Visit Inpatient E&M: 72613 Subs Hosp L2
[2018-09-12] MEDS: Doxazosin 1 MG Tablet 2 MG PO (21:05)
[2018-09-12] MEDS: Tamsulosin HCl 0.4 MG Capsule PO (21:05)
[2018-09-13] VITALS (12 sets, daily range): BP systolic 104–134; BP diastolic 64–70; PULSE 80–108; RESP 15–18; TEMP 36.8–37.3; O2SAT 92–99
[2018-09-13] MEDS: Metoprolol Tartrate 5 MG/5 ML Vial 2.5 MG IV ×3 (00:57→11:46)
[2018-09-13] MEDS: Morphine 2 MG/ML Syringe IV ×3 (01:43→19:59)
[2018-09-13] MEDS: metroNIDAZOLE 500 MG/100 ML BAG 100 MG IV ×3 (07:00→21:10)
--- NOTE | 2018-09-13 08:01 | PN.SURG_ITS ---
Subjective: missed note / - vomited over night - no complaints - declines surgery - Physical Exam General: Alert, Oriented x3, Cooperative Lungs: Clear to auscultation, Normal air movement Cardiovascular: Regular rate, No murmurs Abdomen: Bowel Sounds Present, Soft, Non Tender, - - through stool and output and stoma Vital Signs Temp Pulse Resp BP Pulse Ox 98.5 F 103 H 16 131/70 H 95 09/13/18 02:59 09/13/18 07:34 09/13/18 02:59 09/13/18 02:59 09/13/18 02:59 Oxygen Flow Rate (L/min) 2 Oxygen Delivery Method Room Air Weight: 81 kg Body Mass Index (BMI) 27.9 Intake and Output for Last 24 Hours 09/11/18 09/12/18 09/13/18 23:59 23:59 23:59 Intake Total 3891 / 3891 2029 / 2913 1441 / 1441 Output Total 6425 / 6425 1475 / 2075 1025 / 1025 Balance -2534 / -2534 554 / 838 416 / 416 Microbiology Past 72 Hours 09/08/18 17:30 Blood Culture - Preliminary Blood Culture (Wb) - Left Hand No growth in 48 hours. 09/08/18 16:40 Blood Culture - Preliminary Blood Culture (Wb) - Left Hand No growth in 48 hours. 09/08/18 12:50 Urine Culture - Final Urine Catheter - Block Vancomycin Resist. E. faecalis Medical Necessity - Tobacco Use Smoking Status: Former smoker Assessment/Plan All Active Problems Pneumonia (Acute) SBO (small bowel obstruction) (Acute) Hypotension (Acute) Hyponatremia (Acute) POD # 8 s/p laparoscopic diverting colostomy for non healing stage 4 decubitus KUB demonstrated ileus versus SBO - NG placed CT scan without contrast yesterday demonstrated dilated small bowel to ileocecal region without obvious transition point. There was no signs of closed loop obstruction or small bowel between sigmoid and wall and stoma creation site. There was no signs of intra- abdominal abscesses. There was no edema of the bowel leading up to the stoma. It was recommended to try repeating CAT scan with oral contrast. Patient had low-grade fever yesterday. Urinalysis was unremarkable. Chest x- ray demonstrated mild atelectasis.-CT scan demonstrated small left lower lobe infiltrate versus chronic scarring. endoscopy through stoma today demonstrated healthy appearing viable colon to the fascial margin. [place], viable colon above the fascia in the subcutaneous area with edema and pink bowel just below the skin surface where the edge of the mucosa appears dusky. My impression is the stoma is viable right up to the visualized portion. That is likely due to this being an end stoma and tension to stretch the colon edge to the skin edge. I anticipate this will slough superficially and heal but I am certain there is no significant ischemia of the stoma just below the skin edge will follow electrolytes given history of hyponatremia. Appreciate assistance of hospitalist service given confusing clinical picture. Repeat CT scan of the abdomen and pelvis with oral contrast. still suggesting SBO with transition point in left pelvis but there is less small bowel distention. The transition point does not seem to be in the same location as the previous CAT scan and there is contrast in the colon-cecum ascending colon and transverse colon with minimal contrast still in the small bowel. This is below the stoma site and actually along the margin on the lower sigmoid colon. No prior abdominal surgery. Patient did have 4-5 day post colonoscopy ileus 2 years prior. patient requested NG tube to be removed. This was removed. He tolerated NG tube removal and is requesting clear liquids. We restarted clear liquids. the patient vomited overnight. I discussed with the patient that I would at this point consider exploration and evaluation of that segment of bowel. The patient feels he just overdid it in the evening and does not wish to consider surgery at this time. We will maintain him on clear liquids and follow him clinically. We will place a PICC line and switch oral medications to IV as appropriate. likely multifactorial urinary retention - block catheter for now Wound care/decubiti per wound nurse
--- NOTE | 2018-09-13 08:03 | PCM.PN.SRG ---
Subjective: no nausea or vomiting, no abdominal complaints - Physical Exam General: Alert, Oriented x3, Cooperative Lungs: Clear to auscultation, Normal air movement Cardiovascular: Regular rate, No murmurs Abdomen: Bowel Sounds Present, Soft, - - stoma with increased stool output and air. Abdomen overall softer and less distended Vital Signs Temp Pulse Resp BP Pulse Ox 98.5 F 103 H 16 131/70 H 95 09/13/18 02:59 09/13/18 07:34 09/13/18 02:59 09/13/18 02:59 09/13/18 02:59 Oxygen Flow Rate (L/min) 2 Oxygen Delivery Method Room Air Weight: 81 kg Body Mass Index (BMI) 27.9 Intake and Output for Last 24 Hours 09/11/18 09/12/18 09/13/18 23:59 23:59 23:59 Intake Total 3891 / 3891 2029 / 2913 1441 / 1441 Output Total 6425 / 6425 1475 / 2075 1025 / 1025 Balance -2534 / -2534 554 / 838 416 / 416 Microbiology Past 72 Hours 09/08/18 17:30 Blood Culture - Preliminary Blood Culture (Wb) - Left Hand No growth in 48 hours. 09/08/18 16:40 Blood Culture - Preliminary Blood Culture (Wb) - Left Hand No growth in 48 hours. 09/08/18 12:50 Urine Culture - Final Urine Catheter - Walker Vancomycin Resist. E. faecalis Medical Necessity - Tobacco Use Smoking Status: Former smoker Assessment/Plan All Active Problems Pneumonia (Acute) SBO (small bowel obstruction) (Acute) Hypotension (Acute) Hyponatremia (Acute) POD # 9 s/p laparoscopic diverting colostomy for non healing stage 4 decubitus KUB demonstrated ileus versus SBO - NG placed CT scan without contrast yesterday demonstrated dilated small bowel to ileocecal region without obvious transition point. There was no signs of closed loop obstruction or small bowel between sigmoid and wall and stoma creation site. There was no signs of intra-abdominal abscesses. There was no edema of the bowel leading up to the stoma. It was recommended to try repeating CAT scan with oral contrast. Patient had low-grade fever yesterday. Urinalysis was unremarkable. Chest x-ray demonstrated mild atelectasis.-CT scan demonstrated small left lower lobe infiltrate versus chronic scarring. endoscopy through stoma today demonstrated healthy appearing viable colon to the fascial margin. [place], viable colon above the fascia in the subcutaneous area with edema and pink bowel just below the skin surface where the edge of the mucosa appears dusky. My impression is the stoma is viable right up to the visualized portion. That is likely due to this being an end stoma and tension to stretch the colon edge to the skin edge. I anticipate this will slough superficially and heal but I am certain there is no significant ischemia of the stoma just below the skin edge will follow electrolytes given history of hyponatremia. Appreciate assistance of hospitalist service given confusing clinical picture. Repeat CT scan of the abdomen and pelvis with oral contrast. still suggesting SBO with transition point in left pelvis but there is less small bowel distention. The transition point does not seem to be in the same location as the previous CAT scan and there is contrast in the colon-cecum ascending colon and transverse colon with minimal contrast still in the small bowel. This is below the stoma site and actually along the margin on the lower sigmoid colon. No prior abdominal surgery. Patient did have 4-5 day post colonoscopy ileus 2 years prior. patient requested NG tube to be removed. This was removed. He tolerated NG tube removal and is requesting clear liquids. We restarted clear liquids. the patient vomited overnight. I discussed with the patient that I would at this point consider exploration and evaluation of that segment of bowel. The patient feels he just overdid it 2 nights previously and does not wish to consider surgery at this time. he states he did well with liquids yesterday. Will advance diet to full liquids, plan for calorie counts and adequate and sure 4 times a day. PICC line in place. IV fluids hep-locked. We'll transition him back to oral medications likely multifactorial urinary retention - the patient was restarted on Flomax yesterday. We'll remove his Walker catheter. Wound care/decubiti per wound nurse
[2018-09-13] MEDS: Enoxaparin 40 MG/0.4 ML Syringe SC (10:05)
[2018-09-13] MEDS: Ciprofloxacin 400 MG/200 ML BAG 200 MG IV ×2 (10:05→22:21)
[2018-09-13] MEDS: Fluticasone 0.05% 1 SPRAY NASAL.SRY 2 SPRAY NASAL (10:05)
--- NOTE | 2018-09-13 10:42 | PCM.PROGNOTE ---
Subjective: Post operative day #9 Antibiotics day #6 All events of the past 24 hours of been reviewed. He is afebrile. HR is up in the 91-108 range today. Blood pressure is within normal limits and he is maintaining an adequate pulse ox on room air. Dr. Nunez advance the diet to full liquids today. Walker catheter has been removed. Flomax was restarted last night. He was also started on doxazosin 2 mg nightly to help with BPH and also to help maintain good blood pressure control. Blood pressure is within normal limits today. - Physical Exam Oral: Moist Mucosa Neck: Supple, No JVD Lungs: Clear to auscultation, Diminished - in the bases Cardiovascular: Regular rate, Regular Rhythm, Normal S1, Normal S2, No Gallop Abdomen: Bowel Sounds Present, Soft, Distended - but this is improving Extremities: No edema Vital Signs Temp Pulse Resp BP Pulse Ox 99.1 F 105 H 16 127/64 H 92 09/13/18 10:02 09/13/18 10:02 09/13/18 10:02 09/13/18 10:02 09/13/18 10:02 Oxygen Flow Rate (L/min) 2 Oxygen Delivery Method Room Air Weight: 178 lb 9.191 oz Body Mass Index (BMI) 27.9 Intake and Output for Last 24 Hours 09/11/18 09/12/18 09/13/18 23:59 23:59 23:59 Intake Total 3891 / 3891 2029 / 2913 1441 / 1441 Output Total 6425 / 6425 1475 / 2075 1025 / 1025 Balance -2534 / -2534 554 / 838 416 / 416 Microbiology Past 72 Hours 09/08/18 17:30 Blood Culture - Preliminary Blood Culture (Wb) - Left Hand No growth in 48 hours. 09/08/18 16:40 Blood Culture - Preliminary Blood Culture (Wb) - Left Hand No growth in 48 hours. 09/08/18 12:50 Urine Culture - Final Urine Catheter - Walker Vancomycin Resist. E. faecalis Medical Necessity - Tobacco Use Smoking Status: Former smoker Assessment/Plan All Active Problems Pneumonia (Acute) SBO (small bowel obstruction) (Acute) Hypotension (Acute) Hyponatremia (Acute) Impressions 1. Postoperative day #9-status post diverting colostomy 2. ileus has resolved-tolerating clear liquids 3. Low-grade fever with tachycardia-resolved, etiology undetermined 4. History of anal cancer treated with radiation and chemotherapy - has had endothelial damage related to the radiation he has had in the past and this is contributing to the non-healing of the ischial ulcer......in conjunction with inadequate pressure relief and non-compliance with position changes. 5. 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 HTN 7. 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 Hypokalemia 9. Chronic hyponatremia - SIADH Aaron discontinued Recheck lab in the AM diet advanced to full liquid Code Visit Inpatient E&M: [id number] [facility] Hosp L1
--- NOTE | 2018-09-13 10:53 | NS ---
CALORIE COUNT ordered by Dr. Nunez- began w/ breakfast on 09/13/18. Please leave pt menus in room for RD to collect. Please indicate next to menu items percentage of foods consumed. Please call clinical dietitian at [phone] or dietary at [phone] w/ further questions.
[2018-09-13] MEDS: 0.9% NaCl Peripheral Flush Adult/Peds IV ×2 (11:46→13:03)
[2018-09-13] MEDS: oxyCODONE 5 MG Tablet PO (17:00)
[2018-09-13] MEDS: Metoprolol Tartrate 25 MG Tablet PO (17:00)
[2018-09-13] MEDS: Tamsulosin HCl 0.4 MG Capsule PO (17:00)
[2018-09-13] MEDS: Doxazosin 1 MG Tablet 2 MG PO (21:12)
[2018-09-13] MEDS: proCHLORPERazine 10 MG/2 ML Vial 5 MG IV (22:21)
[2018-09-14] VITALS (7 sets, daily range): BP systolic 126–143; BP diastolic 68–81; PULSE 80–100; RESP 15–16; TEMP 36.7–37; O2SAT 93–99
[2018-09-14] MEDS: metroNIDAZOLE 500 MG/100 ML BAG 100 MG IV ×2 (05:10→13:12)
--- NOTE | 2018-09-14 07:03 | PCM.PROGNOTE ---
Subjective: Postoperative day #10 Antibiotics day #7-Cipro and Flagyl He is afebrile. Vital signs are stable He is maintaining an oxygen saturation of 99% on room air. He is maintaining good oral intake. Oral intake for 09/13/2018 was 1460. states pain is adequately controlled. Denies nausea but has been vomiting. there is stool and air in the colostomy bag - Physical Exam General: Alert, Oriented x3, Cooperative, No apparent distress Neck: Supple Lungs: Clear to auscultation, Diminished Cardiovascular: Regular rate, Regular Rhythm, Normal S1, Normal S2, No Gallop Abdomen: Soft, Non Tender, Hypoactive Bowel Sounds, Distended - mild Extremities: No clubbing, No cyanosis, No edema Skin: No rashes, No breakdown Neurological: Cranial nerves II-XII grossly intact, Neuro grossly intact Vital Signs Temp Pulse Resp BP Pulse Ox 98.1 F 99 15 139/71 H 99 09/14/18 04:00 09/14/18 04:00 09/14/18 04:00 09/14/18 04:00 09/14/18 04:00 Oxygen Flow Rate (L/min) 2 Oxygen Delivery Method Room Air Weight: 178 lb 9.191 oz Body Mass Index (BMI) 27.9 Intake and Output for Last 24 Hours 09/12/18 09/13/18 09/14/18 23:59 23:59 23:59 Intake Total 2028 / 3 3316 / 4210 1165 / 1165 Output Total 1475 / 2075 1925 / 2275 1050 / 1050 Balance 554 / 838 1391 / 1935 115 / 115 Microbiology Past 72 Hours 09/08/18 17:30 Blood Culture - Preliminary Blood Culture (Wb) - Left Hand No growth in 48 hours. 09/08/18 16:40 Blood Culture - Preliminary Blood Culture (Wb) - Left Hand No growth in 48 hours. Medical Necessity - Tobacco Use Smoking Status: Former smoker Assessment/Plan All Active Problems Pneumonia (Acute) SBO (small bowel obstruction) (Acute) Hypotension (Acute) Hyponatremia (Acute) Impressions 1. Postoperative day #7-status post diverting colostomy 2. ileus vs SBO 3. Low-grade fever with tachycardia-resolved, etiology undetermined 4. History of anal cancer treated with radiation and chemotherapy - has had endothelial damage related to the radiation he has had in the past and this is contributing to the non-healing of the ischial ulcer......in conjunction with inadequate pressure relief and non-compliance with position changes. 5. 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 HTN 7. 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 Hypokalemia 9. Chronic hyponatremia - SIADH NPO Dr. Nunez plans on taking him back to the OR in the AM for exploration This is now POD # 10 and has had no significant PO intake......D/W Dr. Nunez - will start TPN Recheck lab in the a.m. ' Code Visit Inpatient E&M: [id number] [facility] Hosp L1
--- NOTE | 2018-09-14 07:45 | RAD_ITS ---
STUDY: X-RAY - ABDOMEN/PELVIS REASON FOR EXAM: Male, 63 years old. Vomiting. TECHNIQUE: AP supine and decubitus views of the abdomen and pelvis. COMPARISON: Comparison is made with prior study dated September 10, 2018. FINDINGS: Normal visualized lung bases. There are dilated loops of the small intestine with a non-distended colon consistent with a small bowel obstruction. There is no demonstrated free abdominal air. Fecal material and gas is seen in the colon. Normal soft tissue structures. There are diffuse degenerative changes of the visualized lumbar spine. Status post left hip replacement. RAD/Abd Inc Decub and/or Erect IMPRESSION: Small bowel dilatation. Small amount of gas and fecal material is seen in the colon. There has been essentially no change. Electronically Signed: Aayush Ibarra, at 13:24 EDT , Service support ,
[2018-09-14] MEDS: 0.9% NaCl Peripheral Flush Adult/Peds IV ×7 (08:23→23:34)
[2018-09-14 08:45] LABS: Hematocrit 29.2 % (40-54); Hemoglobin 9.6 g/dl (13.0-16.5); Mean Corp Hgb Conc 32.9 g/gl (32-36); Mean Corpuscular Hgb 27.1 pg (27.0-32.0); Mean Corpuscular Volume 82.5 fL (80-94); Mean Platelet Vol. 7.5 fl (6.2-12.0); Platelet Count 262 K/mm3 (150-450); RBC Distribution Width CV 15.8 % (11.6-14.6); RBC Distribution Width SD 47.7 fl (35.1-43.9); Red Blood Count 3.54 M/mm3 (4.6-6.2); White Blood Count 10.5 K/mm3 (4.4-11.0)
[2018-09-14 08:46] LABS: Differential Indicated MANUAL DIFF; POSITIVE COUNT YES; POSITIVE DIFFERENTIAL NO; POSITIVE MORPHOLOGY YES
[2018-09-14 09:05] LABS: ALB/GLOB Ratio 0.8 RATIO (0.9-2.4); AST(SGOT) 17 U/L (15-37); Alanine Aminotransfer ALT/SGPT 20 U/L (16-61); Albumin, Serum 2.7 g/dL (3.2-5.0); Alkaline Phosphatase 63 U/L (45-117); Anion Gap 8 (5-15); BUN 7 mg/dL (7-18); BUN/Creat Ratio 16.9 RATIO (10-20); Calcium,Total 8.4 mg/dL (8.5-10.1); Chloride 98 mmol/L (98-107); Creatinine, Serum 0.41 mg/dL (0.70-1.30); EST Glomerular Filtration Rate 221 mL/min (>60); Est Glom Filt Rate - Afr Amer 267 mL/min (>60); Estimated Creatinine Clearance 170.18 ml/min; Globulin 3.6 g/dL (2.2-4.2); Glucose 104 mg/dL (74-106); Potassium 3.8 mmol/L (3.5-5.1); Protein, Total 6.3 g/dL (6.4-8.2); Sodium Level 134 mmol/L (136-145)
--- NOTE | 2018-09-14 09:06 | NURSING ---
Colostomy appliance is intact. there is small amount of soft brown stool noted in the ostomy appliance. patient states he had a large emesis again last pm. abdomen is soft. still slightly tender. patient had abdominal x-rays this am. will monitor.
[2018-09-14 09:20] LABS: Eosinophil 1 % (0-5); Lymphocyte 16 % (19-41); Metamyelocyte 1 % (0-1); Monocyte 8 % (0-10); Neutrophil-Segmented 73 % (47-70); Promyelocyte 1 (0-0); Total Cells Counted 100 (MANUAL DIFF)
[2018-09-14 09:24] LABS: Absolute Lymphocyte Count 1.68 X10^3/ul (0.83-4.51); Absolute Neutrophil Count 7.7 X10^3/uL (2.0-7.7); Lymphocyte # 1.68 X10^3/ul (4.0); Neutrophil # 7.67 X10^3/uL (2.7-7.7)
[2018-09-14 09:25] LABS: Anisocytosis 1+; Differential Comment SCANNED; Platelet Estimate ADEQUATE (ADEQ)
--- NOTE | 2018-09-14 09:33 | PN.SURG_ITS ---
Subjective: vomited again last night - Physical Exam General: Alert, Oriented x3, Cooperative Lungs: Clear to auscultation, Normal air movement Cardiovascular: Regular rate, No murmurs Abdomen: Soft, Non Tender, Hypoactive Bowel Sounds, - - mildly distended, stool and air in stoma bag Vital Signs Temp Pulse Resp BP Pulse Ox 98.1 F 99 15 139/71 H 99 09/14/18 04:00 09/14/18 04:00 09/14/18 04:00 09/14/18 04:00 09/14/18 04:00 Oxygen Flow Rate (L/min) 2 Oxygen Delivery Method Room Air Weight: 81 kg Body Mass Index (BMI) 27.9 Intake and Output for Last 24 Hours 09/12/18 09/13/18 09/14/18 23:59 23:59 23:59 Intake Total 2028 / 3 3316 / 4210 1165 / 1165 Output Total 1475 / 2075 1925 / 2275 1050 / 1050 Balance 554 / 838 1391 / 1935 115 / 115 Microbiology Past 72 Hours 09/08/18 17:30 Blood Culture - Final Blood Culture (Wb) - Left Hand No growth in 5 days. 09/08/18 16:40 Blood Culture - Final Blood Culture (Wb) - Left Hand No growth in 5 days. Laboratory Tests Past 24 Hrs 09/14/18 09/14/18 08:31 08:31 WBC 10.5 RBC 3.54 L Hgb 9.6 L Hct 29.2 L MCV 82.5 MCH 27.1 MCHC 32.9 RDW 15.8 H RDW Differential 47.7 H Plt Count 262 MPV 7.5 Neut % (Auto) Not Reportable Absolute Neuts (auto) 7.7 Absolute Lymphs (auto) 1.68 Total Counted 100 Neutrophils % (Manual) 73 H Lymphocytes % (Manual) 16 L Monocytes % (Manual) 8 Eosinophils % (Manual) 1 Metamyelocytes % 1 Promyelocytes % 1 H Differential Comment SCANNED Diff Path Review May foll Platelet Estimate ADEQUATE Anisocytosis 1+ Sodium 134 L Potassium 3.8 Chloride 98 Carbon Dioxide 28.0 Anion Gap 8 BUN 7 Creatinine 0.41 L Estim Creat Clear Calc 170.18 Est GFR (MDRD) Af Amer 267 Est GFR (MDRD) Non-Af 221 BUN/Creatinine Ratio 16.9 Glucose 104 Calcium 8.4 L Total Bilirubin 0.20 AST 17 ALT 20 Alkaline Phosphatase 63 Total Protein 6.3 L Albumin 2.7 L Globulin 3.6 Albumin/Globulin Ratio 0.8 L Medical Necessity - Tobacco Use Smoking Status: Former smoker Assessment/Plan All Active Problems Pneumonia (Acute) SBO (small bowel obstruction) (Acute) Hypotension (Acute) Hyponatremia (Acute) POD # 10 s/p laparoscopic diverting colostomy for non healing stage 4 decubitus KUB demonstrated ileus versus SBO - NG placed CT scan without contrast y esterday demonstrated dilated small bowel to ileocecal region without obvious transition point. There was no signs of closed loop obstruction or small bowel between sigmoid and wall and stoma creation site. There was no signs of intra- abdominal abscesses. There was no edema of the bowel leading up to the stoma. It was recommended to try repeating CAT scan with oral contrast. Patient had low-grade fever yesterday. Urinalysis was unremarkable. Chest x- ray demonstrated mild atelectasis.-CT scan demonstrated small left lower lobe infiltrate versus chronic scarring. endoscopy through stoma today demonstrated healthy appearing viable colon to the fascial margin. [place], viable colon above the fascia in the subcutaneous area with edema and pink bowel just below the skin surface where the edge of the mucosa appears dusky. My impression is the stoma is viable right up to the visualized portion. That is likely due to this being an end stoma and tension to stretch the colon edge to the skin edge. I anticipate this will slough superficially and heal but I am certain there is no significant ischemia of the stoma just below the skin edge will follow electrolytes given history of hyponatremia. Appreciate assistance of hospitalist service given confusing clinical picture. Repeat CT scan of the abdomen and pelvis with oral contrast. still suggesting SBO with transition point in left pelvis but there is less small bowel distention. The transition point does not seem to be in the same location as the previous CAT scan and there is contrast in the colon-cecum ascending colon and transverse colon with minimal contrast still in the small bowel. This is below the stoma site and actually along the margin on the lower sigmoid colon. No prior abdominal surgery. Patient did have 4-5 day post colonoscopy ileus 2 years prior. patient requested NG tube to be removed. This was removed. He tolerated NG tube removal and is requesting clear liquids. We restarted clear liquids. the patient vomited overnight. I discussed with the patient that I would at this point consider exploration and evaluation of that segment of bowel. The patient feels he just overdid it 2 nights previously and does not wish to consider surgery at this time. he states he did well with liquids Monday. We advanced diet to full liquids, planned for calorie counts and adequate and sure 4 times a day. He vomited again last night. abdominal multiview demonstrated again significant distended loops of small bowel with distended air-filled colon. My plan now is to make the patient nothing by mouth. Start TPN and plan for laparoscopic possible open exploration for that persistently suspicious segment tomorrow morning hoping that giving him 24 hours of nothing by mouth status will get his bowel decompressed enough that I can perform this procedure laparoscopically. PICC line in place. IV fluids hep-locked. We'll transition him back to oral medications likely multifactorial urinary retention - the patient was restarted on Flomax yesterday. We'll remove his Walker catheter. Wound care/decubiti per wound nurse
--- NOTE | 2018-09-14 09:50 | CASEMGMT ---
Social Work Note Charge Nurse updated this worker that pt is going for surgery tomorrow and will be at [facility] throughout weekend. SHAHANA placed a call to [facility] and spoke with Christie. SHAHANA updated Christei that pt is going for surgery tomorrow and will be at [facility] through weekend and that this worker will fax updates on Monday and pre-cert can be resubmitted on Monday. Christie states understanding. Plan: [facility] pending pre-cert. Pt is getting surgery tomorrow and will be at [facility] through weekend. Pre-cert will be resubmitted on Monday. Caroline Og FREIGHT TEAM ASSOCIATE, DIRECTOR OF CASEWORK SERVICES
[2018-09-14] MEDS: Ciprofloxacin 400 MG/200 ML BAG 200 MG IV ×2 (10:49→23:07)
[2018-09-14] MEDS: Metoprolol Tartrate 25 MG Tablet PO (10:49)
[2018-09-14] MEDS: Pantoprazole Sodium 40 MG Tablet PO (10:49)
[2018-09-14] MEDS: Enoxaparin 40 MG/0.4 ML Syringe SC (10:52)
[2018-09-14] MEDS: Fluticasone 0.05% 1 SPRAY NASAL.SRY 2 SPRAY NASAL (10:53)
[2018-09-14] MEDS: Morphine 2 MG/ML Syringe IV ×2 (16:01→23:33)
[2018-09-14] MEDS: Fat Emulsions 20% 250 ML IV (16:07)
[2018-09-14] MEDS: Tamsulosin HCl 0.4 MG Capsule PO (17:56)
[2018-09-14 19:26] LABS: Bedside Glucose 160 mg/dL (70-110)
[2018-09-15] VITALS (13 sets, daily range): BP systolic 98–157; BP diastolic 54–80; PULSE 77–119; RESP 16–18; TEMP 36.5–37.2; O2SAT 93–98; BMI 21.9; BMI 28.0
[2018-09-15] MEDS: metroNIDAZOLE 500 MG/100 ML BAG 100 MG IV ×4 (00:24→21:39)
[2018-09-15] MEDS: Fluticasone 0.05% 1 SPRAY NASAL.SRY 2 SPRAY NASAL (00:46)
[2018-09-15 00:56] LABS: Bedside Glucose 165 mg/dL (70-110)
[2018-09-15] MEDS: Morphine 2 MG/ML Syringe IV ×6 (02:34→21:38)
[2018-09-15] MEDS: 0.9% NaCl Peripheral Flush Adult/Peds IV ×3 (02:36→06:34)
[2018-09-15 04:13] LABS: Anion Gap 7 (5-15); BUN 8 mg/dL (7-18); BUN/Creat Ratio 17.5 RATIO (10-20); Calcium,Total 8.2 mg/dL (8.5-10.1); Chloride 99 mmol/L (98-107); Creatinine, Serum 0.46 mg/dL (0.70-1.30); EST Glomerular Filtration Rate 197 mL/min (>60); Est Glom Filt Rate - Afr Amer 238 mL/min (>60); Estimated Creatinine Clearance 151.68 ml/min; Glucose 130 mg/dL (74-106); Potassium 3.6 mmol/L (3.5-5.1); Sodium Level 135 mmol/L (136-145)
[2018-09-15 04:19] LABS: Differential Indicated MANUAL DIFF; Hemoglobin 9.9 g/dl (13.0-16.5); Mean Corpuscular Hgb 27.4 pg (27.0-32.0); Mean Corpuscular Volume 83.1 fL (80-94); Mean Platelet Vol. 7.4 fl (6.2-12.0); POSITIVE COUNT YES; POSITIVE DIFFERENTIAL NO; POSITIVE MORPHOLOGY YES; Platelet Count 332 K/mm3 (150-450); RBC Distribution Width CV 15.9 % (11.6-14.6); RBC Distribution Width SD 48.3 fl (35.1-43.9); Red Blood Count 3.61 M/mm3 (4.6-6.2); White Blood Count 9.2 K/mm3 (4.4-11.0)
[2018-09-15 05:13] LABS: Eosinophil 2 % (0-5); Lymphocyte 16 % (19-41); Metamyelocyte 2 % (0-1); Monocyte 3 % (0-10); Neutrophil-Band 1 % (0-5); Neutrophil-Segmented 76 % (47-70); Total Cells Counted 100 (MANUAL DIFF)
[2018-09-15 05:14] LABS: Anisocytosis 1+; Hypochromasia 1+; Platelet Estimate ADEQUATE (ADEQ); Polychromasia 1+
[2018-09-15 05:15] LABS: Platelet Morphology LARGE
[2018-09-15 05:16] LABS: Absolute Lymphocyte Count 1.47 X10^3/ul (0.83-4.51); Absolute Neutrophil Count 7.1 X10^3/uL (2.0-7.7)
[2018-09-15 06:55] LABS: Bedside Glucose 142 mg/dL (70-110)
[2018-09-15] MEDS: Bupivacaine 0.5% PF 10 ML VIAL (07:57)
--- NOTE | 2018-09-15 08:27 | PCM.OPRPT ---
Report of Operation Date of Procedure: 09/15/18 Pre-Operative Diagnosis: partial small bowel obstruction Post-Operative Diagnosis: partial small bowel obstruction - single adhesion to Raudel's stump Surgery/Procedure Performed:: diagnostic laparoscopy, laparoscopic lysis of adhesions. Description of Surgical Findings:: as above manager banquet: Yunior Hartman Type of Anesthesia:: General Anesthesiologist: Simran Pacheco - [id number] Specimen's removed: none Estimated Blood Loss (mL): minimal Fluids Replaced: 500 Description of Procedure: The patient was brought to the operating suite. Sign in was performed verifying patient, site, procedure, position, and DVT prophylaxis with SCDs. Patient received 2 g of cefotetan. Following induction of general anesthetic. the stoma bag was removed and the site covered with an OpSite. The patient?s abdomen was prepped and draped in the usual fashion. Timeout was performed verifying patient, site, position. Local anesthetic was injected below the umbilicus. Incision made and dissection carried down to the umbilical root fascia. 2 stay sutures were placed. Incision made in the fascia, the peritoneum entered under direct visualization. A 10 mm Colbert trocar was inserted and secured with the stay sutures. Pneumoperitoneum to 15 mmHg was insufflated. 5mm ports were placed in the right paramedian positions. Visual inspection revealed a healthy-appearing and descending colon stoma with no signs of bowel herniating around the stoma site. There was proximal small bowel distention. A loop of small bowel was adherent to the side of the Mitchell's pouch/distal sigmoid colon which had been mobilized and transected. With gentle retraction the small bowel was released from that area. The small bowel was examined and there were no areas of significant injury noted to the small bowel other than the superficial adhesion. There was obvious transition point at this location from proximal distended distal collapsed bowel. The bowel was slightly run proximally and distally to this point with no other abnormalities noted. the Colbert trocar was removed and 0 PDS reviewed suture was placed around the umbilical port site for fascial closure. Pneumoperitoneum was reestablished. a piece of Interceed was placed over the site of the adhesion in the left lower quadrant to prevent future adhesions. 5mm ports were removed under direct visualization with no signs of bleeding. Pneumoperitoneum was released. The Colbert trocar was removed. The umbilical fascial suture was secured. The skin was closed with interrupted 4-0 Monocryl subcuticular sutures. Steri-Strips and bandages were applied. The patient was brought to recovery room in stable condition.
--- NOTE | 2018-09-15 08:30 | PCM.PN.SRG ---
Subjective: no further vomiting - Physical Exam General: Alert, Oriented x3, Cooperative Lungs: Clear to auscultation, Normal air movement Cardiovascular: Regular rate, No murmurs Abdomen: Bowel Sounds Present, Soft, Distended Vital Signs Temp Pulse Resp BP Pulse Ox 98.4 F 94 16 141/71 H 95 09/15/18 05:54 09/15/18 05:54 09/15/18 05:54 09/15/18 05:54 09/15/18 05:54 Oxygen Flow Rate (L/min) 2 Oxygen Delivery Method Room Air Weight: 63.5 kg Body Mass Index (BMI) 21.9 Intake and Output for Last 24 Hours 09/13/18 09/14/18 09/15/18 23:59 23:59 23:59 Intake Total 3316 / 4210 2603 / 3547 1639 / 1639 Output Total 1925 / 2275 1850 / 1900 50 / 50 Balance 1391 / 1935 753 / 1647 1589 / 1589 Microbiology Past 72 Hours 09/08/18 17:30 Blood Culture - Final Blood Culture (Wb) - Left Hand No growth in 5 days. 09/08/18 16:40 Blood Culture - Final Blood Culture (Wb) - Left Hand No growth in 5 days. Laboratory Tests Past 24 Hrs 09/14/18 09/14/18 09/15/18 08:31 08:31 03:52 WBC 10.5 9.2 RBC 3.54 L 3.61 L Hgb 9.6 L 9.9 L Hct 29.2 L 30.0 L MCV 82.5 83.1 MCH 27.1 27.4 MCHC 32.9 33.0 RDW 15.8 H 15.9 H RDW Differential 47.7 H 48.3 H Plt Count 262 332 MPV 7.5 7.4 Neut % (Auto) Not Reportable Not Reportable Absolute Neuts (auto) 7.7 7.1 Absolute Lymphs (auto) 1.68 1.47 Total Counted 100 100 Neutrophils % (Manual) 73 H 76 H Band Neutrophils % 1 Lymphocytes % (Manual) 16 L 16 L Monocytes % (Manual) 8 3 Eosinophils % (Manual) 1 2 Metamyelocytes % 1 2 H Promyelocytes % 1 H Differential Comment SCANNED Diff Path Review May foll May foll Platelet Estimate ADEQUATE ADEQUATE Plt Morphology Comment LARGE Polychromasia 1+ Hypochromasia 1+ Anisocytosis 1+ 1+ Sodium 134 L Potassium 3.8 Chloride 98 Carbon Dioxide 28.0 Anion Gap 8 BUN 7 Creatinine 0.41 L Estim Creat Clear Calc 170.18 Est GFR (MDRD) Af Amer 267 Est GFR (MDRD) Non-Af 221 BUN/Creatinine Ratio 16.9 Glucose 104 Calcium 8.4 L Total Bilirubin 0.20 AST 17 ALT 20 Alkaline Phosphatase 63 Total Protein 6.3 L Albumin 2.7 L Globulin 3.6 Albumin/Globulin Ratio 0.8 L 06 03:52 WBC RBC Hgb Hct MCV MCH MCHC RDW RDW Differential Plt Count MPV Neut % (Auto) Absolute Neuts (auto) Absolute Lymphs (auto) Total Counted Neutrophils % (Manual) Band Neutrophils % Lymphocytes % (Manual) Monocytes % (Manual) Eosinophils % (Manual) Metamyelocytes % Promyelocytes % Differential Comment Diff Path Review Platelet Estimate Plt Morphology Comment Polychromasia Hypochromasia Anisocytosis Sodium 135 L Potassium 3.6 Chloride 99 Carbon Dioxide 29.0 Anion Gap 7 BUN 8 Creatinine 0.46 L Estim Creat Clear Calc 151.68 Est GFR (MDRD) Af Amer 238 Est GFR (MDRD) Non-Af 197 BUN/Creatinine Ratio 17.5 Glucose 130 H Calcium 8.2 L Total Bilirubin AST ALT Alkaline Phosphatase Total Protein Albumin Globulin Albumin/Globulin Ratio POC Glucose 07/06/19 07/06/19 07//19 05:51 00:38 19:11 POC Glucose 142 H 165 H 160 H Medical Necessity - Tobacco Use Smoking Status: Former smoker Assessment/Plan All Active Problems Pneumonia (Acute) SBO (small bowel obstruction) (Acute) Hypotension (Acute) Hyponatremia (Acute) POD # 11 s/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 There was no signs of closed loop obstruction or small bowel between sigmoid and wall and stoma creation site. There was no signs of intra-abdominal abscesses. There was no edema of the bowel leading up to the stoma. It was recommended to try repeating CAT scan with oral contrast. Patient had low-grade fever yesterday. Urinalysis was unremarkable. Chest x-ray demonstrated mild atelectasis.-CT scan demonstrated small left lower lobe infiltrate versus chronic scarring. endoscopy through stoma today demonstrated healthy appearing viable colon to the fascial margin. [place], viable colon above the fascia in the subcutaneous area with edema and pink bowel just below the skin surface where the edge of the mucosa appears dusky. My impression is the stoma is viable right up to the visualized portion. That is likely due to this being an end stoma and tension to stretch the colon edge to the skin edge. I anticipate this will slough superficially and heal but I am certain there is no significant ischemia of the stoma just below the skin edge will follow electrolytes given history of hyponatremia. Appreciate assistance of hospitalist service given confusing clinical picture. Repeat CT scan of the abdomen and pelvis with oral contrast. still suggesting SBO with transition point in left pelvis but there is less small bowel distention. The transition point does not seem to be in the same location as the previous CAT scan and there is contrast in the colon-cecum ascending colon and transverse colon with minimal contrast still in the small bowel. This is below the stoma site and actually along the margin on the lower sigmoid colon. No prior abdominal surgery. Patient did have 4-5 day post colonoscopy ileus 2 years prior. patient requested NG tube to be removed. This was removed. He tolerated NG tube removal and is requesting clear liquids. We restarted clear liquids. the patient vomited overnight. I discussed with the patient that I would at this point consider exploration and evaluation of that segment of bowel. The patient feels he just overdid it 2 nights previously and does not wish to consider surgery at this time. he states he did well with liquids Monday. We advanced diet to full liquids, planned for calorie counts and adequate and sure 4 times a day. He vomited again last night. abdominal multiview demonstrated again significant distended loops of small bowel with distended air-filled colon. My plan now is to make the patient nothing by mouth. Start TPN. Laparoscopic exploration demonstrated single adhesion of small bowel to Raudel's pouch. released. PICC line in place. IV fluids hep-locked. We'll transition him back to oral medications likely multifactorial urinary retention - the patient was restarted on Flomax yesterday. We'll remove his Walker catheter. Wound care/decubiti per wound nurse
[2018-09-15 09:11] LABS: Bedside Glucose 110 mg/dL (70-110)
--- NOTE | 2018-09-15 09:52 | PCM.PROGNOTE ---
Subjective: Afebrile he just returned from surgery with Dr. Nunez. He had a single adhesion to Raudel stump and this was lysed laparoscopically. most recent vital signs are temp 98.7, heart rate 117, blood pressure 98/59, respiratory rate 16 and he is 95% saturated on a 4 L nasal cannula. All lab was personally reviewed. White blood cell count today is 9.2 with 76% neutrophils. Hemoglobin is stable at 9.9. Platelets are within normal limits. The sodium is 135. BUN is 8 with a creatinine of 0.46. Calcium corrected for hypoalbuminemia is within normal limits. He was started on TPN yesterday and blood sugars are mildly increased but none greater than 180. He had just returned from surgery when I saw him and he was very groggy. No complaints - Physical Exam General: - - sedated from surgery and keeps nodding off to sleep...does not appear to be in any distress Lungs: Clear to auscultation, Diminished Cardiovascular: Regular Rhythm, Normal S1, Normal S2, No Gallop, Tachycardic Abdomen: Soft, Hypoactive Bowel Sounds, Distended - mildy Extremities: No clubbing, No cyanosis, No edema Vital Signs Temp Pulse Resp BP Pulse Ox 98.7 F 117 H 16 98/59 L 95 09/15/18 09:40 09/15/18 09:40 09/15/18 09:40 09/15/18 09:40 09/15/18 09:40 Oxygen Flow Rate (L/min) 4 Oxygen Delivery Method Nasal Cannula Weight: 139 lb 15.896 oz Body Mass Index (BMI) 21.9 Intake and Output for Last 24 Hours 09/13/18 09/14/18 09/15/18 23:59 23:59 23:59 Intake Total 3316 / 4210 2603 / 3547 2339 / 2339 Output Total 1925 / 2275 1850 / 1900 50 / 50 Balance 1391 / 1935 753 / 1647 2289 / 2289 Microbiology Past 72 Hours 09/08/18 17:30 Blood Culture - Final Blood Culture (Wb) - Left Hand No growth in 5 days. 09/08/18 16:40 Blood Culture - Final Blood Culture (Wb) - Left Hand No growth in 5 days. Laboratory Tests Past 24 Hrs 09/15/18 09/15/18 03:52 03:52 WBC 9.2 RBC 3.61 L Hgb 9.9 L Hct 30.0 L MCV 83.1 MCH 27.4 MCHC 33.0 RDW 15.9 H RDW Differential 48.3 H Plt Count 332 MPV 7.4 Neut % (Auto) Not Reportable Absolute Neuts (auto) 7.1 Absolute Lymphs (auto) 1.47 Total Counted 100 Neutrophils % (Manual) 76 H Band Neutrophils % 1 Lymphocytes % (Manual) 16 L Monocytes % (Manual) 3 Eosinophils % (Manual) 2 Metamyelocytes % 2 H Diff Path Review May foll Platelet Estimate ADEQUATE Plt Morphology Comment LARGE Polychromasia 1+ Hypochromasia 1+ Anisocytosis 1+ Sodium 135 L Potassium 3.6 Chloride 99 Carbon Dioxide 29.0 Anion Gap 7 BUN 8 Creatinine 0.46 L Estim Creat Clear Calc 151.68 Est GFR (MDRD) Af Amer 238 Est GFR (MDRD) Non-Af 197 BUN/Creatinine Ratio 17.5 Glucose 130 H Calcium 8.2 L POC Glucose 09/15/18 09/15/18 09/15/18 09:07 05:51 00:38 POC Glucose 110 142 H 165 H 09/14/18 19:11 POC Glucose 160 H Medical Necessity - Tobacco Use Smoking Status: Former smoker Assessment/Plan All Active Problems Pneumonia (Acute) SBO (small bowel obstruction) (Acute) Hypotension (Acute) Hyponatremia (Acute) Day #8 antibiotics-Flagyl and ciprofloxacin Impressions 1. Postoperative day #11 from the original surgery. Went to surgery again today for ex lap with lysis of adhesions 2. pSBO due to adhesion 3. Low-grade fever with tachycardia-resolved, etiology undetermined 4. History of anal cancer treated with radiation and chemotherapy - has had endothelial damage related to the radiation he has had in the past and this is contributing to the non-healing of the ischial ulcer......in conjunction with inadequate pressure relief and non-compliance with position changes. 5. 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 HTN 7. 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 Hypokalemia-resolved 9. Chronic hyponatremia - SIADH, stable Continue TPN CBC, CMP, mag and phos in the a.m. TRIG in the AM Will discuss with Dr. Mayra whether we can discontinue antibiotics since he is afebrile with a normal white blood cell count and unremarkable differential. Code Visit Inpatient E&M: 14855 Subs Hosp L2
[2018-09-15] MEDS: Pantoprazole Sodium 40 MG Tablet PO (10:27)
[2018-09-15] MEDS: Ciprofloxacin 400 MG/200 ML BAG 200 MG IV ×2 (10:32→22:53)
[2018-09-15] MEDS: Enoxaparin 40 MG/0.4 ML Syringe SC (10:32)
[2018-09-15] MEDS: Metoprolol Tartrate 25 MG Tablet PO ×2 (10:32→21:44)
[2018-09-15 11:56] LABS: Bedside Glucose 243 mg/dL (70-110)
[2018-09-15] MEDS: Tamsulosin HCl 0.4 MG Capsule PO (15:52)
--- NOTE | 2018-09-15 17:02 | NS ---
Calorie count not complete. Pt is on TPN.
[2018-09-15] MEDS: oxyCODONE 5 MG Tablet PO ×2 (18:18→22:33)
[2018-09-15] MEDS: Potassium Chloride 10mEq/100mL 10 MEQ/100 ML IV.SOLN. 100 MEQ IV BOLUS ×2 (18:23→20:34)
[2018-09-15 18:41] LABS: Bedside Glucose 129 mg/dL (70-110)
[2018-09-15] MEDS: Doxazosin 1 MG Tablet 2 MG PO (21:44)
[2018-09-16] MEDS: Morphine 2 MG/ML Syringe IV ×6 (00:43→23:54)
[2018-09-16] MEDS: 0.9% NaCl Peripheral Flush Adult/Peds IV ×3 (01:18→14:20)
[2018-09-16 01:41] LABS: Bedside Glucose 140 mg/dL (70-110)
[2018-09-16] MEDS: oxyCODONE 5 MG Tablet PO ×5 (02:43→23:19)
[2018-09-16 02:55] VITALS: BP 135/65; PULSE 78; RESP 18; TEMP 36.8; O2SAT 97
[2018-09-16] MEDS: metroNIDAZOLE 500 MG/100 ML BAG 100 MG IV ×2 (05:25→14:07)
--- NOTE | 2018-09-16 06:00 | RAD_ITS ---
STUDY: X-RAY - ABDOMEN/PELVIS REASON FOR EXAM: Male, 63 years old. Small bowel obstruction follow-up TECHNIQUE: AP supine and upright views of the abdomen and pelvis. COMPARISON: 09/14/2018 FINDINGS: Mild atelectasis in the medial left lung base. Central venous catheter is partially visualized projecting over the upper right atrium. Although there is still gaseous distention of small bowel and proximal colon, dilation is overall decreased since the prior study. Maximum diameter measures up to 4.5 cm (previously measured up to 6.5 cm). There is no demonstrated free abdominal air. The visualized liver, spleen and kidneys are grossly normal in size and morphology. Normal soft tissue structures. Normal visualized osseous structures. RAD/Abd Inc Decub and/or Erect IMPRESSION: 1. Favorable change. Resolving small bowel dilation/obstruction/ileus. Electronically Signed: Chu Marcum MD at 9:07 EDT , Service support ,
[2018-09-16 06:11] LABS: Bedside Glucose 152 mg/dL (70-110)
[2018-09-16] MEDS: Insulin Lispro 100 UNIT/ML INSULN.PEN SC (06:36)
[2018-09-16 07:22] LABS: ALB/GLOB Ratio 0.7 RATIO (0.9-2.4); AST(SGOT) 19 U/L (15-37); Alanine Aminotransfer ALT/SGPT 17 U/L (16-61); Albumin, Serum 2.6 g/dL (3.2-5.0); Alkaline Phosphatase 58 U/L (45-117); Anion Gap 5 (5-15); BUN 12 mg/dL (7-18); BUN/Creat Ratio 25.5 RATIO (10-20); Calcium,Total 8.3 mg/dL (8.5-10.1); Chloride 98 mmol/L (98-107); Creatinine, Serum 0.47 mg/dL (0.70-1.30); EST Glomerular Filtration Rate 190 mL/min (>60); Est Glom Filt Rate - Afr Amer 230 mL/min (>60); Estimated Creatinine Clearance 142.61 ml/min; Globulin 3.6 g/dL (2.2-4.2); Glucose 134 mg/dL (74-106); Magnesium 2.2 mg/dL (1.6-2.6); Phosphorus 3.9 mg/dL (2.5-4.9); Potassium 4.1 mmol/L (3.5-5.1); Prealbumin 14.2 mg/dL (20.0-40.0); Protein, Total 6.2 g/dL (6.4-8.2); Sodium Level 133 mmol/L (136-145); Triglycerides 168 mg/dL
[2018-09-16 07:25] LABS: Hematocrit 33.8 % (40-54); Hemoglobin 10.7 g/dl (13.0-16.5); Mean Corp Hgb Conc 31.7 g/gl (32-36); Mean Corpuscular Hgb 26.4 pg (27.0-32.0); Mean Corpuscular Volume 83.3 fL (80-94); Mean Platelet Vol. 7.8 fl (6.2-12.0); Platelet Count 456 K/mm3 (150-450); RBC Distribution Width CV 16.1 % (11.6-14.6); RBC Distribution Width SD 48.5 fl (35.1-43.9); Red Blood Count 4.06 M/mm3 (4.6-6.2); White Blood Count 10.5 K/mm3 (4.4-11.0)
[2018-09-16 07:26] LABS: Differential Indicated MANUAL DIFF; POSITIVE COUNT YES; POSITIVE DIFFERENTIAL NO; POSITIVE MORPHOLOGY YES
--- NOTE | 2018-09-16 07:49 | PCM.PN.SRG ---
Subjective: cramping abdominal pain yesterday, improving - Physical Exam General: Alert, Oriented x3, Cooperative Lungs: Clear to auscultation, Normal air movement Cardiovascular: Regular rate, No murmurs Abdomen: Soft, Hypoactive Bowel Sounds, Tender - at incisions, no output in stoma bag Vital Signs Temp Pulse Resp BP Pulse Ox 98.3 F 78 18 135/65 H 97 09/16/18 02:55 09/16/18 02:55 09/16/18 02:55 09/16/18 02:55 09/16/18 02:55 Oxygen Flow Rate (L/min) 3 Oxygen Delivery Method Room Air Weight: 63.5 kg Body Mass Index (BMI) 21.9 Intake and Output for Last 24 Hours 09/14/18 09/15/18 09/16/18 23:59 23:59 23:59 Intake Total 2603 / 3547 4633 / 4633 1286 / 1286 Output Total 1850 / 1900 2100 / 2100 Balance 753 / 1647 2533 / 2533 1286 / 1286 Microbiology Past 72 Hours 09/08/18 17:30 Blood Culture - Final Blood Culture (Wb) - Left Hand No growth in 5 days. 09/08/18 16:40 Blood Culture - Final Blood Culture (Wb) - Left Hand No growth in 5 days. Laboratory Tests Past 24 Hrs 09/16/18 09/16/18 09/16/18 05:48 05:48 05:48 WBC 10.5 RBC 4.06 L Hgb 10.7 L Hct 33.8 L MCV 83.3 MCH 26.4 L MCHC 31.7 L RDW 16.1 H RDW Differential 48.5 H Plt Count 456 H MPV 7.8 Neut % (Auto) Not Reportable Absolute Neuts (auto) Not Reportable Total Counted Pending Sodium 133 L Potassium 4.1 Chloride 98 Carbon Dioxide 30.0 Anion Gap 5 BUN 12 Creatinine 0.47 L Estim Creat Clear Calc 142.61 Est GFR (MDRD) Af Amer 230 Est GFR (MDRD) Non-Af 190 BUN/Creatinine Ratio 25.5 H Glucose 134 H Calcium 8.3 L Phosphorus 3.9 Magnesium 2.2 Total Bilirubin 0.20 AST 19 ALT 17 Alkaline Phosphatase 58 Total Protein 6.2 L Albumin 2.6 L Globulin 3.6 Albumin/Globulin Ratio 0.7 L Prealbumin 14.2 L Triglycerides 168 POC Glucose 09/16/18 09/15/18 09/15/18 06:03 23:14 18:22 POC Glucose 152 H 140 H 129 H 09/15/18 09/15/18 11:44 09:07 POC Glucose 243 H 110 Medical Necessity - Tobacco Use Smoking Status: Former smoker Assessment/Plan All Active Problems Pneumonia (Acute) SBO (small bowel obstruction) (Acute) Hypotension (Acute) Hyponatremia (Acute) POD # 12 s/p laparoscopic diverting colostomy for non healing stage 4 decubitus, POD # 1 for single adhesion to Raudel's pouch KUB demonstrated ileus versus SBO - NG placed CT scan without contrast yesterday demonstrated dilated small bowel to ileocecal region without obvious transition point. There was no signs of closed loop obstruction or small bowel between sigmoid and wall and stoma creation site. There was no signs of intra-abdominal abscesses. There was no edema of the bowel leading up to the stoma. It was recommended to try repeating CAT scan with oral contrast. Patient had low-grade fever yesterday. Urinalysis was unremarkable. Chest x-ray demonstrated mild atelectasis.-CT scan demonstrated small left lower lobe infiltrate versus chronic scarring. endoscopy through stoma today demonstrated healthy appearing viable colon to the fascial margin. [place], viable colon above the fascia in the subcutaneous area with edema and pink bowel just below the skin surface where the edge of the mucosa appears dusky. My impression is the stoma is viable right up to the visualized portion. That is likely due to this being an end stoma and tension to stretch the colon edge to the skin edge. I anticipate this will slough superficially and heal but I am certain there is no significant ischemia of the stoma just below the skin edge will follow electrolytes given history of hyponatremia. Appreciate assistance of hospitalist service given confusing clinical picture. Repeat CT scan of the abdomen and pelvis with oral contrast. still suggesting SBO with transition point in left pelvis but there is less small bowel distention. The transition point does not seem to be in the same location as the previous CAT scan and there is contrast in the colon-cecum ascending colon and transverse colon with minimal contrast still in the small bowel. This is below the stoma site and actually along the margin on the lower sigmoid colon. No prior abdominal surgery. Patient did have 4-5 day post colonoscopy ileus 2 years prior. patient requested NG tube to be removed. This was removed. He tolerated NG tube removal and is requesting clear liquids. We restarted clear liquids. the patient vomited overnight. I discussed with the patient that I would at this point consider exploration and evaluation of that segment of bowel. The patient feels he just overdid it 2 nights previously and does not wish to consider surgery at this time. he states he did well with liquids Monday. We advanced diet to full liquids, planned for calorie counts and adequate and sure 4 times a day. He vomited again last night. abdominal multiview demonstrated again significant distended loops of small bowel with distended air-filled colon. My plan now is to make the patient nothing by mouth. Start TPN. Laparoscopic exploration demonstrated single adhesion of small bowel to Raudel's pouch. released. PICC line in place. IV fluids hep-locked. We'll transition him back to oral medications likely multifactorial urinary retention - the patient was restarted on Flomax. He is voiding without difficulty Wound care/decubiti per wound nurse
[2018-09-16 08:36] VITALS: BP 122/71; PULSE 94; RESP 18; TEMP 37.6; O2SAT 94
[2018-09-16 09:00] LABS: Lymphocyte 11 % (19-41); Metamyelocyte 1 % (0-1); Monocyte 7 % (0-10); Myelocyte 1 (0-0); Neutrophil-Segmented 80 % (47-70); Platelet Estimate ADEQUATE (ADEQ); Red Cell Morphology NORM C+C NORMAL (NORM C&C); Total Cells Counted 100 (MANUAL DIFF)
[2018-09-16 09:03] LABS: Absolute Lymphocyte Count 1.15 X10^3/ul (0.83-4.51); Absolute Neutrophil Count 5.3 X10^3/uL (2.0-7.7)
[2018-09-16] MEDS: Enoxaparin 40 MG/0.4 ML Syringe SC (10:09)
[2018-09-16] MEDS: Ciprofloxacin 400 MG/200 ML BAG 200 MG IV ×2 (10:09→23:20)
[2018-09-16] MEDS: Pantoprazole Sodium 40 MG Tablet PO (10:09)
[2018-09-16 10:10] VITALS: PULSE 94
[2018-09-16] MEDS: Metoprolol Tartrate 25 MG Tablet PO ×2 (10:10→23:20)
[2018-09-16] MEDS: Fluticasone 0.05% 1 SPRAY NASAL.SRY 2 SPRAY NASAL (10:11)
--- NOTE | 2018-09-16 12:36 | PCM.PROGNOTE ---
Subjective: The pt is a 63 YO M with a non-healing stage 4 decubitus ulcer on the R ischial area who was admitted to the hospital for a diverting colostomy. Postoperative day #1-status post lysis of adhesions after initial diverting colostomy 12 days ago All events the past 24 hours of been reviewed. Temp today is 99.7. Vital signs are stable 94% on room air. Urine output on 09/15/2018 was 2100 cc. All lab was personally reviewed. White blood cell count today is 10.5 with 80% neutrophils. Hemoglobin is stable at 10.7 platelets are mildly increased. Sodium is 133 today and potassium is 4.1. BUN and creatinine are stable. Creatinine is 0.47. Triglycerides are 168 today. Albumin is 2.6. Magnesium and phosphorus are within normal limits. He is c/o worse abdominal pain....just recently had pain medication.....his mother is in the room and he is always more rude with the nurses, demanding and drug seeking when she is around. No nausea, no vomiting. - Physical Exam General: Alert, Oriented x3, Cooperative, No apparent distress, - - watching the world cup Oral: Moist Mucosa Neck: Supple, No JVD Lungs: Clear to auscultation Cardiovascular: Regular rate, Regular Rhythm, Normal S1, Normal S2, No murmurs, No Gallop Abdomen: Soft, Distended - minimal, Tender - around the ostomy and incision site. Ostomy is pink but no gas or stool in the bag today. Extremities: No edema Neurological: Cranial nerves II-XII grossly intact Psych/Mental Status: - - I have not seen him out of bed since the initial surgery. Refuses to get in the recliner with PT. Requiring several breaks just to do exercises in bed Vital Signs Temp Pulse Resp BP Pulse Ox 99.7 F H 94 18 122/71 H 94 09/16/18 08:36 09/16/18 10:10 09/16/18 08:36 09/16/18 08:36 09/16/18 08:36 Oxygen Flow Rate (L/min) 3 Oxygen Delivery Method Room Air Weight: 139 lb 15.896 oz Body Mass Index (BMI) 21.9 Intake and Output for Last 24 Hours 09/14/18 09/15/18 09/16/18 23:59 23:59 23:59 Intake Total 2603 / 3547 4633 / 4633 1286 / 1286 Output Total 1850 / 1900 2100 / 2100 950 / 950 Balance 753 / 1647 2533 / 2533 336 / 336 Microbiology Past 72 Hours 09/08/18 17:30 Blood Culture - Final Blood Culture (Wb) - Left Hand No growth in 5 days. 09/08/18 16:40 Blood Culture - Final Blood Culture (Wb) - Left Hand No growth in 5 days. Laboratory Tests Past 24 Hrs 09/16/18 09/16/18 09/16/18 05:48 05:48 05:48 WBC 10.5 RBC 4.06 L Hgb 10.7 L Hct 33.8 L MCV 83.3 MCH 26.4 L MCHC 31.7 L RDW 16.1 H RDW Differential 48.5 H Plt Count 456 H MPV 7.8 Neut % (Auto) Not Reportable Absolute Neuts (auto) 5.3 Absolute Lymphs (auto) 1.15 Total Counted 100 Neutrophils % (Manual) 80 H Lymphocytes % (Manual) 11 L Monocytes % (Manual) 7 Metamyelocytes % 1 Myelocytes % 1 H Diff Path Review May foll Platelet Estimate ADEQUATE RBC Morphology NORM C+C Sodium 133 L Potassium 4.1 Chloride 98 Carbon Dioxide 30.0 Anion Gap 5 BUN 12 Creatinine 0.47 L Estim Creat Clear Calc 142.61 Est GFR (MDRD) Af Amer 230 Est GFR (MDRD) Non-Af 190 BUN/Creatinine Ratio 25.5 H Glucose 134 H Calcium 8.3 L Phosphorus 3.9 Magnesium 2.2 Total Bilirubin 0.20 AST 19 ALT 17 Alkaline Phosphatase 58 Total Protein 6.2 L Albumin 2.6 L Globulin 3.6 Albumin/Globulin Ratio 0.7 L Prealbumin 14.2 L Triglycerides 168 POC Glucose 09/16/18 09/15/18 09/15/18 06:03 23:14 18:22 POC Glucose 152 H 140 H 129 H Medical Necessity - Tobacco Use Smoking Status: Former smoker Assessment/Plan All Active Problems Pneumonia (Acute) SBO (small bowel obstruction) (Acute) Hypotension (Acute) Hyponatremia (Acute) Day #9 antibiotics-Flagyl and ciprofloxacin Impressions 1. Postoperative day #12 from the original surgery. Went to surgery again today for ex lap with lysis of adhesions 2. pSBO due to adhesion 3. Low-grade fever with tachycardia-resolved, etiology undetermined 4. History of anal cancer treated with radiation and chemotherapy - has had endothelial damage related to the radiation he has had in the past and this is contributing to the non-healing of the ischial ulcer......in conjunction with inadequate pressure relief and non-compliance with position changes. 5. 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 HTN 7. 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 Hypokalemia-resolved 9. Chronic hyponatremia - SIADH, stable continue TPN - TRIG and BS's OK sodium is stable Code Visit Inpatient E&M: 53856 Subs Hosp L1
[2018-09-16 12:51] LABS: Bedside Glucose 135 mg/dL (70-110)
[2018-09-16 16:36] VITALS: BP 128/67; PULSE 80; RESP 18; TEMP 37.1; O2SAT 98
[2018-09-16] MEDS: Fat Emulsions 20% 250 ML IV (16:40)
[2018-09-16] MEDS: Tamsulosin HCl 0.4 MG Capsule PO (17:28)
[2018-09-16 17:41] LABS: Bedside Glucose 120 mg/dL (70-110)
[2018-09-16 20:34] VITALS: BP 137/76; PULSE 88; RESP 20; TEMP 36.9; O2SAT 94
[2018-09-16] MEDS: Doxazosin 1 MG Tablet 2 MG PO (23:19)
[2018-09-16 23:20] VITALS: BP 137/76; PULSE 88
[2018-09-16 23:50] LABS: Bedside Glucose 152 mg/dL (70-110)
[2018-09-17] VITALS (7 sets, daily range): BP systolic 122–139; BP diastolic 64–71; PULSE 86–103; RESP 16–18; TEMP 36.6–37.1; O2SAT 93–95
[2018-09-17] MEDS: metroNIDAZOLE 500 MG/100 ML BAG 100 MG IV ×4 (01:12→23:05)
[2018-09-17] MEDS: Morphine 2 MG/ML Syringe IV ×5 (03:10→20:33)
[2018-09-17 07:05] LABS: Bedside Glucose 162 mg/dL (70-110)
--- NOTE | 2018-09-17 07:10 | PCM.PN.SRG ---
Subjective: hungry, no nausea, vomiting, want more food - Physical Exam General: Alert, Oriented x3, Cooperative Lungs: Clear to auscultation, Normal air movement Cardiovascular: Regular rate, No murmurs Abdomen: Soft, Non Tender - stoma bag with some fluid, minimal air in bag, Hypoactive Bowel Sounds Vital Signs Temp Pulse Resp BP Pulse Ox 98.7 F 90 18 127/64 H 93 09/17/18 02:37 09/17/18 02:37 09/17/18 02:37 09/17/18 02:37 09/17/18 02:37 Oxygen Flow Rate (L/min) 3 Oxygen Delivery Method Room Air Weight: 63.5 kg Body Mass Index (BMI) 21.9 Intake and Output for Last 24 Hours 09/15/18 09/16/18 09/17/18 23:59 23:59 23:59 Intake Total 4633 / 4633 3007 / 3807 1550 / 1550 Output Total 2100 / 2100 2200 / 2800 1200 / 1200 Balance 2533 / 2533 807 / 1007 350 / 350 Microbiology Past 72 Hours 09/08/18 17:30 Blood Culture - Final Blood Culture (Wb) - Left Hand No growth in 5 days. 09/08/18 16:40 Blood Culture - Final Blood Culture (Wb) - Left Hand No growth in 5 days. Laboratory Tests Past 24 Hrs 09/16/18 09/16/18 09/16/18 05:48 05:48 05:48 WBC 10.5 RBC 4.06 L Hgb 10.7 L Hct 33.8 L MCV 83.3 MCH 26.4 L MCHC 31.7 L RDW 16.1 H RDW Differential 48.5 H Plt Count 456 H MPV 7.8 Neut % (Auto) Not Reportable Absolute Neuts (auto) 5.3 Absolute Lymphs (auto) 1.15 Total Counted 100 Neutrophils % (Manual) 80 H Lymphocytes % (Manual) 11 L Monocytes % (Manual) 7 Metamyelocytes % 1 Myelocytes % 1 H Diff Path Review May foll Platelet Estimate ADEQUATE RBC Morphology NORM C+C Sodium 133 L Potassium 4.1 Chloride 98 Carbon Dioxide 30.0 Anion Gap 5 BUN 12 Creatinine 0.47 L Estim Creat Clear Calc 142.61 Est GFR (MDRD) Af Amer 230 Est GFR (MDRD) Non-Af 190 BUN/Creatinine Ratio 25.5 H Glucose 134 H Calcium 8.3 L Phosphorus 3.9 Magnesium 2.2 Total Bilirubin 0.20 AST 19 ALT 17 Alkaline Phosphatase 58 Total Protein 6.2 L Albumin 2.6 L Globulin 3.6 Albumin/Globulin Ratio 0.7 L Prealbumin 14.2 L Triglycerides 168 POC Glucose 09/17/18 09/16/18 09/16/18 06:21 23:21 17:34 POC Glucose 162 H 152 H 120 H 09/16/18 12:39 POC Glucose 135 H Medical Necessity - Tobacco Use Smoking Status: Former smoker Assessment/Plan All Active Problems Pneumonia (Acute) SBO (small bowel obstruction) (Acute) Hypotension (Acute) Hyponatremia (Acute) POD # 13 s/p laparoscopic diverting colostomy for non healing stage 4 decubitus, POD # 2 for single adhesion to Raudel's pouch KUB demonstrated ileus versus SBO - NG placed CT scan without contrast yesterday demonstrated dilated small bowel to ileocecal region without obvious transition point. There was no signs of closed loop obstruction or small bowel between sigmoid and wall and stoma creation site. There was no signs of intra-abdominal abscesses. There was no edema of the bowel leading up to the stoma. It was recommended to try repeating CAT scan with oral contrast. Patient had low-grade fever yesterday. Urinalysis was unremarkable. Chest x-ray demonstrated mild atelectasis.-CT scan demonstrated small left lower lobe infiltrate versus chronic scarring. endoscopy through stoma today demonstrated healthy appearing viable colon to the fascial margin. [place], viable colon above the fascia in the subcutaneous area with edema and pink bowel just below the skin surface where the edge of the mucosa appears dusky. My impression is the stoma is viable right up to the visualized portion. That is likely due to this being an end stoma and tension to stretch the colon edge to the skin edge. I anticipate this will slough superficially and heal but I am certain there is no significant ischemia of the stoma just below the skin edge will follow electrolytes given history of hyponatremia. Appreciate assistance of hospitalist service given confusing clinical picture. Repeat CT scan of the abdomen and pelvis with oral contrast -still suggested partial SBO with transition point in left pelvis but there is less small bowel distention. The transition point does not seem to be in the same location as the previous CAT scan and there is contrast in the colon-cecum ascending colon and transverse colon with minimal contrast still in the small bowel. This is below the stoma site and actually along the margin on the lower sigmoid colon. No prior abdominal surgery. Patient did have 4-5 day post colonoscopy ileus 2 years prior. patient requested NG tube to be removed. This was removed. He tolerated NG tube removal initially but then vomited. abdominal multiview demonstrated again significant distended loops of small bowel with distended air-filled colon. TPN was started Laparoscopic exploration demonstrated single adhesion of small bowel to Raudel's pouch. This was released. Again post op ileus picture. OK for coffee and medications with sips, otherwise NPO until resumption of bowel activity. PICC line in place. likely multifactorial urinary retention - the patient was restarted on Flomax. He is voiding without difficulty Wound care/decubiti per wound nurse
[2018-09-17] MEDS: oxyCODONE 5 MG Tablet PO ×2 (08:51→16:34)
[2018-09-17] MEDS: Metoprolol Tartrate 25 MG Tablet PO ×2 (08:51→20:44)
[2018-09-17] MEDS: Pantoprazole Sodium 40 MG Tablet PO (08:51)
[2018-09-17] MEDS: Fluticasone 0.05% 1 SPRAY NASAL.SRY 2 SPRAY NASAL (08:52)
[2018-09-17] MEDS: Enoxaparin 40 MG/0.4 ML Syringe SC (09:33)
[2018-09-17] MEDS: Ciprofloxacin 400 MG/200 ML BAG 200 MG IV ×2 (09:33→21:02)
[2018-09-17] MEDS: 0.9% NaCl PICC Flush IV ×2 (09:34→16:40)
--- NOTE | 2018-09-17 10:19 | NURSING ---
in to reassess the stoma to the left lower abdomen. Pt went back to surgery with Dr Nunez on 09/15/18 for diagnostic laparotomy for a partial small bowel obstruction and lysis of adhesions. removed the ostomy appliance to better assess the stoma. there is still some duskiness noted as well as some yellow slough. stoma sits right at skin level. there is some redness noted to the peristomal skin. there was a small amount of serosanguineous drainage noted in the ostomy appliance. no flatus or stool noted at this time. cleansed the peristomal skin with warm water. pat dry. applied a new flat 2 piece Vinson appliance with a small amount of stoma paste. pt tolerated well. will continue to monitor.
--- NOTE | 2018-09-17 11:16 | NURSING ---
stoma photo: left lower abdomen
--- NOTE | 2018-09-17 11:16 | NURSING ---
wound photo: right elbow
--- NOTE | 2018-09-17 11:17 | NURSING ---
wound photo: right buttock
[2018-09-17 12:31] LABS: Bedside Glucose 151 mg/dL (70-110)
--- NOTE | 2018-09-17 13:03 | CASEMGMT ---
Social Work Note SW faxed updated clinicals to [facility]. Pt still not medically cleared for discharge. Pre-cert will likely be resubmitted tomorrow. Plan: [facility] pending pre-cert Caroline Og [employer], [employer]
[2018-09-17 14:21] LABS: Pathologist Review Reviewed
--- NOTE | 2018-09-17 15:48 | PCM.PN.HOSP ---
Patient Problems: Active and Suspected Problems SBO (small bowel obstruction) (Acute) Subjective: NG removed, had vomiting afterwards. + abdominal pain. Vitals/I&O's: Vital Signs Temp Pulse Resp BP Pulse Ox 36.8 C 89 16 129/70 H 95 09/17/18 08:45 09/17/18 08:51 09/17/18 08:45 09/17/18 08:45 09/17/18 08:45 Oxygen Flow Rate (L/min) 3 Oxygen Delivery Method Room Air Weight: 63.5 kg Body Mass Index (BMI) 21.9 Intake and Output for Last 24 Hours 09/15/18 09/16/18 09/17/18 23:59 23:59 23:59 Intake Total 4633 / 4633 3007 / 3807 3224 / 3224 Output Total 2100 / 2100 2200 / 2800 1900 / 1900 Balance 2533 / 2533 807 / 1007 1324 / 1324 General: Alert, No apparent distress HEENT: Atraumatic, Normocephalic Oral: Moist Mucosa, No Gingival or Mucosal Lesions/ Ulcerations Neck: No Nodes, Thyroid Normal Size and Texture Lungs: Clear to auscultation, Normal air movement, No rhonchi, No wheeze, No rales Cardiovascular: Regular rate, Regular Rhythm, Normal S1, Normal S2, No murmurs Abdomen: Hypoactive Bowel Sounds, Distended, Tender Extremities: No clubbing, No cyanosis, No edema Skin: No rashes, No breakdown Laboratory Results 09/14/18 08:31: Diff Path Review Reviewed 09/16/18 17:34: POC Glucose 120 H 09/16/18 23:21: POC Glucose 152 H 09/17/18 06:21: POC Glucose 162 H 09/17/18 12:22: POC Glucose 151 H Current Medications Doxazosin Mesylate (Cardura) 2 mg PO QHS [facility] Last Admin: 09/16/18 23:19 Dose: 2 mg Documented by: Enoxaparin Sodium (Lovenox) 40 mg SC DAILY [facility] Last Admin: 09/17/18 09:33 Dose: 40 mg Documented by: Fluticasone Propionate (Flonase Nasal [place]) 2 spray NASAL DAILY [facility] Last Admin: 09/17/18 08:52 Dose: 2 spray Documented by: Heparin Sodium (Beef Lung) () 50 units IV UD PRN PRN Reason: HEPARIN FLUSH Hydralazine HCl (Apresoline Iv) 10 mg IV Q4H PRN PRN PRN Reason: Sys>160, cortes>85 Last Admin: 09/11/18 20:35 Dose: 10 mg Documented by: Ciprofloxacin (Cipro) 400 mg in 200 mls @ 200 mls/hr IV Q12 [facility] Last Admin: 09/17/18 09:33 Dose: 200 mls/hr Documented by: Metronidazole (Flagyl) 500 mg in 100 mls @ 100 mls/hr IV Q8 [facility] Last Admin: 09/17/18 14:54 Dose: 100 mls/hr Documented by: Multivitamins 10 ml/ Chromium/Copper/Manganese/Seleni/Zn 1 ml/ Folic Acid 1 mg/ Amino Acids/Electrolytes 2,011.2 mls @ 84 mls/hr IV .[id number] [facility] Stop: 09/18/18 15:48 Ibuprofen (Motrin) 400 mg PO Q4H PRN PRN PRN Reason: MILD PAIN (1-3/10) Insulin Human Lispro (Humalog Kwikpen (Bkc)) 0 unit SC Q6 [facility]; Protocol Last Admin: 09/17/18 12:24 Dose: Not Given Documented by: Ipratropium [place] (Atrovent) 0.5 mg INHALATION Q4H.RT PRN PRN Reason: SOB/WHEEZING Metoprolol Tartrate (Lopressor (Beta Joo)) 25 mg PO BID [facility] Last Admin: 09/17/18 08:51 Dose: 25 mg Documented by: Morphine Sulfate () 1 - 3 mg IV Q3H PRN PRN PRN Reason: SEVERE PAIN (6-10/10) Last Admin: 09/17/18 14:55 Dose: 2 mg Documented by: Oxycodone HCl (Oxyir) 5 mg PO Q4H PRN PRN PRN Reason: SEVERE PAIN (6-10/10) Last Admin: 09/17/18 08:51 Dose: 5 mg Documented by: Pantoprazole Sodium (Protonix) 40 mg PO DAILY [facility] Last Admin: 09/17/18 08:51 Dose: 40 mg Documented by: Prochlorperazine Edisylate (Compazine Iv) 5 mg IV Q4H PRN PRN PRN Reason: NAUSEA/VOMITING Last Admin: 09/13/18 22:21 Dose: 5 mg Documented by: Sodium Chloride () 5 - 15 ml IV UD PRN PRN Reason: SALINE FLUSH Last Admin: 09/16/18 14:20 Dose: 10 ml Documented by: Sodium Chloride () 10 - 40 ml IV UD PRN PRN Reason: PICC FLUSH Last Admin: 09/17/18 09:34 Dose: 20 ml Documented by: Tamsulosin HCl (Flomax) 0.4 mg PO DAILY@1730 [facility] Last Admin: 09/16/18 17:28 Dose: 0.4 mg Documented by: Medical Necessity - Tobacco Use Smoking Status: Former smoker Assessment/Plan All Active Problems Pneumonia (Acute) SBO (small bowel obstruction) (Acute) Hypotension (Acute) Hyponatremia (Acute) 1. SBO/ileus NG removed today still on TPN still NPO 2. s/p sigmoid colostomy mgmt per general surgery 3. stage 4 decubitus ulcer continue wound care and nutrition 4. VTE proph: LMWH. Code Visit Inpatient E&M: 04406 Subs Hosp L2
[2018-09-17] MEDS: Tamsulosin HCl 0.4 MG Capsule PO (16:34)
[2018-09-17 18:41] LABS: Bedside Glucose 163 mg/dL (70-110)
[2018-09-17] MEDS: Doxazosin 1 MG Tablet 2 MG PO (20:44)
[2018-09-17] MEDS: Ibuprofen 400 MG Tablet PO (23:09)
[2018-09-18] MEDS: oxyCODONE 5 MG Tablet PO ×4 (00:10→22:34)
[2018-09-18 02:45] VITALS: BP 91/52; PULSE 87; RESP 16; TEMP 36.9; O2SAT 95
[2018-09-18] MEDS: metroNIDAZOLE 500 MG/100 ML BAG 100 MG IV ×3 (05:24→22:52)
[2018-09-18] MEDS: 0.9% NaCl PICC Flush IV ×4 (05:25→21:38)
[2018-09-18 05:36] LABS: Anion Gap 7 (5-15); BUN 13 mg/dL (7-18); BUN/Creat Ratio 26.4 RATIO (10-20); Calcium,Total 8.4 mg/dL (8.5-10.1); Chloride 96 mmol/L (98-107); Creatinine, Serum 0.49 mg/dL (0.70-1.30); EST Glomerular Filtration Rate 181 mL/min (>60); Est Glom Filt Rate - Afr Amer 218 mL/min (>60); Estimated Creatinine Clearance 136.79 ml/min; Glucose 141 mg/dL (74-106); Sodium Level 133 mmol/L (136-145)
[2018-09-18 05:46] LABS: Bedside Glucose 150 mg/dL (70-110)
--- NOTE | 2018-09-18 05:46 | PN.SURG_ITS ---
Patient Problems: Active and Suspected Problems SBO (small bowel obstruction) (Acute) Subjective: hungry, no nausea - Physical Exam General: Alert, Oriented x3 Lungs: Clear to auscultation, Normal air movement Cardiovascular: Regular rate, No murmurs Abdomen: Bowel Sounds Present, Soft, Tender - at incisions - stoma with minimal output Vital Signs Temp Pulse Resp BP Pulse Ox 98.5 F 87 16 91/52 L 95 09/18/18 02:45 09/18/18 02:45 09/18/18 02:45 09/18/18 02:45 09/18/18 02:45 Oxygen Flow Rate (L/min) 3 Oxygen Delivery Method Room Air Weight: 63.5 kg Body Mass Index (BMI) 21.9 Intake and Output for Last 24 Hours 09/16/18 09/17/18 09/18/18 23:59 23:59 23:59 Intake Total 3007 / 3807 4767 / 4767 Output Total 2200 / 2800 4075 / 4075 Balance 807 / 1007 692 / 692 Laboratory Tests Past 24 Hrs 09/14/18 09/18/18 08:31 05:15 Diff Path Review Reviewed Sodium 133 L Potassium 4.0 Chloride 96 L Carbon Dioxide 30.0 Anion Gap 7 BUN 13 Creatinine 0.49 L Estim Creat Clear Calc 136.79 Est GFR (MDRD) Af Amer 218 Est GFR (MDRD) Non-Af 181 BUN/Creatinine Ratio 26.4 H Glucose 141 H Calcium 8.4 L POC Glucose 09/18/18 09/17/18 09/17/18 05:28 18:34 12:22 POC Glucose 150 H 163 H 151 H 09/17/18 06:21 POC Glucose 162 H Medical Necessity - Tobacco Use Smoking Status: Former smoker Assessment/Plan All Active Problems Pneumonia (Acute) SBO (small bowel obstruction) (Acute) Hypotension (Acute) Hyponatremia (Acute) POD # 14 s/p laparoscopic diverting colostomy for non healing stage 4 decubitus, POD # 3 for single adhesion to Raudel's pouch KUB demonstrated ileus versus SBO - NG placed CT scan without contrast yesterday demonstrated dilated small bowel to ileocecal region without obvious transition point. There was no signs of closed loop obstruction or small bowel between sigmoid and wall and stoma creation site. There was no signs of intra- abdominal abscesses. There was no edema of the bowel leading up to the stoma. It was recommended to try repeating CAT scan with oral contrast. Patient had low-grade fever yesterday. Urinalysis was unremarkable. Chest x- ray demonstrated mild atelectasis.-CT scan demonstrated small left lower lobe infiltrate versus chronic scarring. endoscopy through stoma today demonstrated healthy appearing viable colon to the fascial margin. [place], viable colon above the fascia in the subcutaneous area with edema and pink bowel just below the skin surface where the edge of the mucosa appears dusky. My impression is the stoma is viable right up to the visualized portion. That is likely due to this being an end stoma and tension to stretch the colon edge to the skin edge. I anticipate this will slough superficially and heal but I am certain there is no significant ischemia of the stoma just below the skin edge will follow electrolytes given history of hyponatremia. Appreciate assistance of hospitalist service given confusing clinical picture. Repeat CT scan of the abdomen and pelvis with oral contrast -still suggested partial SBO with transition point in left pelvis but there is less small bowel distention. The transition point does not seem to be in the same location as the previous CAT scan and there is contrast in the colon-cecum ascending colon and transverse colon with minimal contrast still in the small bowel. This is below the stoma site and actually along the margin on the lower sigmoid colon. No prior abdominal surgery. Patient did have 4-5 day post colonoscopy ileus 2 years prior. patient requested NG tube to be removed. This was removed. He tolerated NG tube removal initially but then vomited. abdominal multiview demonstrated again significant distended loops of small bowel with distended air-filled colon. TPN was started Laparoscopic exploration demonstrated single adhesion of small bowel to Raudel's pouch. This was released. Again post op ileus picture - improving clinical exam. OK for clear liquids PICC line in place. likely multifactorial urinary retention - the patient was restarted on Flomax. He is voiding without difficulty Wound care/decubiti per wound nurse
--- NOTE | 2018-09-18 09:33 | NURSING ---
Colostomy appliance intact. there is a small amount serosanguineous drainage noted in the appliance. no flatus noted. abdomen is less tender today per patient. no distension noted. will monitor.
[2018-09-18 09:49] VITALS: BP 122/57; PULSE 99; RESP 18; TEMP 37.1; O2SAT 94
[2018-09-18] MEDS: Ciprofloxacin 400 MG/200 ML BAG 200 MG IV (09:51)
[2018-09-18] MEDS: Enoxaparin 40 MG/0.4 ML Syringe SC (09:51)
[2018-09-18 09:52] VITALS: BP 122/57; PULSE 99
[2018-09-18] MEDS: Pantoprazole Sodium 40 MG Tablet PO (09:52)
[2018-09-18] MEDS: Metoprolol Tartrate 25 MG Tablet PO ×2 (09:52→22:34)
[2018-09-18 10:03] LABS: Pathologist Review Reviewed
[2018-09-18 10:26] LABS: Pathologist Review Reviewed
[2018-09-18 10:41] LABS: Bedside Glucose 169 mg/dL (70-110)
--- NOTE | 2018-09-18 11:42 | CASEMGMT ---
Social Work Note SW faxed updated clinicals to [facility]. Pre-cert will likely be started tomorrow. Plan: [facility] pending pre-cert Caroline Og MSW, PROTECTIVE SERVICES OFFICER
[2018-09-18] MEDS: Morphine 2 MG/ML Syringe IV ×4 (12:30→21:31)
[2018-09-18 12:45] LABS: Bedside Glucose 190 mg/dL (70-110)
--- NOTE | 2018-09-18 14:48 | CT_ITS ---
STUDY: CT ABDOMEN AND PELVIS WITHOUT CONTRAST REASON FOR EXAM: Male, 63 years old. Abdominal pain after coughing RADIATION DOSAGE (If Supplied By Facility): CTDIvol = ( 14.56 ) mGy, DLP = ( 800.04 ) mGycm TECHNIQUE: Transaxial images were obtained from the dome of the diaphragm to the symphysis pubis without oral contrast, and without intravenous contrast. Sagittal and coronal images were reconstructed. Individualized dose optimization techniques were used for this CT. COMPARISON: September 11, 2018 CT scan abdomen and pelvis FINDINGS: There are patchy nodular opacities within the left lower lobe improved since prior study. The heart is within normal limits of size. The visualized surgical material within the confines of the heart. Normal liver. The gallbladder is distended there is a suggestion of minimal sludge. Normal spleen. Normal pancreas. Normal bilateral adrenal glands. There is vascular calcification in the right renal hilum. There is a left renal cyst measuring 2.1 cm with Hounsfield units in the range of simple fluid. There is a small hiatal hernia. There is a distended appearance of the stomach worse than prior study. Since prior study there is been interval development of severe distention of the small bowel with pneumoperitoneum new since prior study. There is a left lower quadrant colostomy which is decompressed. A focal area of obstruction is not well seen but may be in the left and midline abdomen or potentially within the right lower quadrant where there is focal narrowing. There is a decompressed appearance of the distal small bowel. There is postoperative change status post partial colectomy. There is a stump in the left midline abdomen. There is mild thickening of the stump without visualized focal gas. There is mild edema in the soft tissue at the colostomy site. The appendix is visualized and appears normal. The aorta is partially calcified. Is calcification of the aorta, renal arteries and bilateral common iliac arteries. There is likely clinically significant hemodynamic stenosis of the right common iliac. Normal inferior vena cava. Normal retroperitoneum. Normal urinary bladder. Normal visualized prostate gland. There is a left lower colostomy. There is calcification of the bilateral common femoral arteries with dense calcification of the left common femoral artery and visualized scarring in the left groin. There is gas in the superficial soft tissues. There is a fatty umbilical hernia. There is anterolisthesis L4-L5 with spondylolisthesis. There is degenerative change L2-L3, L3-L4 and L4-L5 with moderate to severe neural foramina narrowing moderate to severe central stenosis. CT/Abdomen/Pelvis without Cont IMPRESSION: Small bowel obstruction with new pneumoperitoneum. Consider acute ruptured hollow viscus. There is a transition is either in the left abdomen near image #104 or within the right lower quadrant where there is a tortuous narrowed appearance of the small bowel possible associated with adhesions. Decompressed, Left lower colostomy. Dense atherosclerotic disease of the aorta Distended gallbladder with sludge. Advanced degenerative change of the lower lumbar spine. Improving left lower lobe pneumonia. N.B. : The above information has been verbally conveyed by Jenni Willard MD to Nicholas Nunez MD, on 09/18/2018 16:15:58 (ET). Electronically Signed: Jenni Willard MD at 15:58 EDT Tel , Service support ,
--- NOTE | 2018-09-18 14:51 | PN_ITS ---
Patient Problems: Active and Suspected Problems SBO (small bowel obstruction) (Acute) Subjective: still with abdominal pain and distention. Vitals/I&O's: Vital Signs Temp Pulse Resp BP Pulse Ox 37.1 C 99 18 122/57 H 94 09/18/18 09:49 09/18/18 09:52 09/18/18 09:49 09/18/18 09:52 09/18/18 09:49 Oxygen Flow Rate (L/min) 3 Oxygen Delivery Method Room Air Weight: 63.5 kg Body Mass Index (BMI) 21.9 Intake and Output for Last 24 Hours 09/16/18 09/17/18 09/18/18 23:59 23:59 23:59 Intake Total 3007 / 3807 4767 / 4767 2696 / 2696 Output Total 2200 / 2800 4075 / 4075 1000 / 1000 Balance 807 / 1007 692 / 692 1696 / 1696 General: Alert, No apparent distress HEENT: Atraumatic, Normocephalic Oral: Moist Mucosa, No Gingival or Mucosal Lesions/ Ulcerations Neck: No Nodes, Thyroid Normal Size and Texture Lungs: Clear to auscultation, Normal air movement, No rhonchi, No wheeze, No rales Cardiovascular: Regular rate, Regular Rhythm, Normal S1, Normal S2, No murmurs Abdomen: Bowel Sounds Present, Soft, No Hepato-splenomegaly, Hypoactive Bowel Sounds, Distended, Tender Extremities: No edema, No Calf Tenderness Skin: No rashes, No breakdown Psych/Mental Status: Normal Affect, Appropriate Laboratory Results 09/15/18 03:52: Diff Path Review Reviewed 09/16/18 05:48: Diff Path Review Reviewed 09/17/18 18:34: POC Glucose 163 H 09/18/18 00:03: POC Glucose 169 H 09/18/18 05:15: Sodium 133 L, Potassium 4.0, Chloride 96 L, Carbon Dioxide 30.0, Anion Gap 7, BUN 13, Creatinine 0.49 L, Estim Creat Clear Calc 136.79, Est GFR (MDRD) Af Amer 218, Est GFR (MDRD) Non-Af 181, BUN/Creatinine Ratio 26.4 H, Glucose 141 H, Calcium 8.4 L 09/18/18 05:28: POC Glucose 150 H 09/18/18 12:35: POC Glucose 190 H Current Medications Doxazosin Mesylate (Cardura) 2 mg PO QHS [facility] Last Admin: 09/17/18 20:44 Dose: 2 mg Documented by: Enoxaparin Sodium (Lovenox) 40 mg SC DAILY [facility] Last Admin: 09/18/18 09:51 Dose: 40 mg Documented by: Fluticasone Propionate (Flonase Nasal [place]) 2 spray NASAL DAILY [facility] Last Admin: 09/18/18 10:08 Dose: Not Given Documented by: Heparin Sodium (Beef Lung) () 50 units IV UD PRN PRN Reason: HEPARIN FLUSH Hydralazine HCl (Apresoline Iv) 10 mg IV Q4H PRN PRN PRN Reason: Sys>160, cortes>85 Last Admin: 09/11/18 20:35 Dose: 10 mg Documented by: Ciprofloxacin (Cipro) 400 mg in 200 mls @ 200 mls/hr IV Q12 [facility] Last Admin: 09/18/18 09:51 Dose: 200 mls/hr Documented by: Metronidazole (Flagyl) 500 mg in 100 mls @ 100 mls/hr IV Q8 [facility] Last Admin: 09/18/18 14:30 Dose: 100 mls/hr Documented by: Multivitamins 10 ml/ Chromium/Copper/Manganese/Seleni/Zn 1 ml/ Folic Acid 1 mg/ Amino Acids/Electrolytes 2,011.2 mls @ 84 mls/hr IV .[id number] [facility] Stop: 09/18/18 15:48 Last Admin: 09/17/18 16:34 Dose: 84 mls/hr Documented by: Multivitamins 10 ml/ Chromium/Copper/Manganese/Seleni/Zn 1 ml/ Folic Acid 1 mg/ Amino Acids/Electrolytes 2,011.2 mls @ 84 mls/hr IV .[id number] [facility] Stop: 09/19/18 15:48 Fat Emulsion Intravenous (Intralipid 20%) 250 mls @ 21 mls/hr IV .[id number] [facility] Stop: 09/19/18 03:54 Ibuprofen (Motrin) 400 mg PO Q4H PRN PRN PRN Reason: MILD PAIN (1-3/10) Last Admin: 09/17/18 23:09 Dose: 400 mg Documented by: Insulin Human Lispro (Humalog Kwikpen (Bkc)) 0 unit SC Q6 [facility]; Protocol Last Admin: 09/18/18 12:35 Dose: Not Given Documented by: Ipratropium [place] (Atrovent) 0.5 mg INHALATION Q4H.RT PRN PRN Reason: SOB/WHEEZING Metoprolol Tartrate (Lopressor (Beta Joo)) 25 mg PO BID [facility] Last Admin: 09/18/18 09:52 Dose: 25 mg Documented by: Morphine Sulfate () 1 - 3 mg IV Q3H PRN PRN PRN Reason: SEVERE PAIN (6-10/10) Last Admin: 09/18/18 12:30 Dose: 2 mg Documented by: Oxycodone HCl (Oxyir) 5 mg PO Q4H PRN PRN PRN Reason: SEVERE PAIN (6-10/10) Last Admin: 09/18/18 09:53 Dose: 5 mg Documented by: Pantoprazole Sodium (Protonix) 40 mg PO DAILY [facility] Last Admin: 09/18/18 09:52 Dose: 40 mg Documented by: Prochlorperazine Edisylate (Compazine Iv) 5 mg IV Q4H PRN PRN PRN Reason: NAUSEA/VOMITING Last Admin: 09/13/18 22:21 Dose: 5 mg Documented by: Sodium Chloride () 5 - 15 ml IV UD PRN PRN Reason: SALINE FLUSH Last Admin: 09/16/18 14:20 Dose: 10 ml Documented by: Sodium Chloride () 10 - 40 ml IV UD PRN PRN Reason: PICC FLUSH Last Admin: 09/18/18 05:25 Dose: 30 ml Documented by: Tamsulosin HCl (Flomax) 0.4 mg PO DAILY@1730 [facility] Last Admin: 09/17/18 16:34 Dose: 0.4 mg Documented by: Medical Necessity - Tobacco Use Smoking Status: Former smoker Assessment/Plan All Active Problems Pneumonia (Acute) SBO (small bowel obstruction) (Acute) Hypotension (Acute) Hyponatremia (Acute) 1. SBO/ileus * NG removed 09/17 * still on TPN * still NPO 2. s/p sigmoid colostomy * mgmt per general surgery 3. stage 4 decubitus ulcer * continue wound care and nutrition 4. VTE proph: LMWH. Code Visit Inpatient E&M: 41007 Subs Hosp L2
[2018-09-18 15:06] VITALS: BP 145/73; PULSE 89; RESP 18; TEMP 36.9; O2SAT 94
[2018-09-18] MEDS: Fat Emulsions 20% 250 ML IV (17:46)
[2018-09-18 17:56] LABS: Bedside Glucose 162 mg/dL (70-110)
[2018-09-18] MEDS: Tamsulosin HCl 0.4 MG Capsule PO (18:02)
--- NOTE | 2018-09-18 18:26 | NURSING ---
in to help with PICC line not flushing... Red port able to flush and draw blood... purple port not able to draw or flush. repositioned arm several ways nothing helped.
[2018-09-18] MEDS: 0.9% NaCl Peripheral Flush Adult/Peds IV ×2 (21:33→22:52)
[2018-09-18 22:29] VITALS: BP 134/69; PULSE 99; RESP 20; TEMP 37.6; O2SAT 93
[2018-09-18 22:34] VITALS: PULSE 99
[2018-09-18] MEDS: Doxazosin 1 MG Tablet 2 MG PO (22:34)
[2018-09-19] MEDS: Morphine 2 MG/ML Syringe IV ×5 (00:33→23:44)
[2018-09-19] MEDS: Ciprofloxacin 400 MG/200 ML BAG 200 MG IV ×3 (00:35→22:36)
[2018-09-19 00:50] LABS: Bedside Glucose 184 mg/dL (70-110)
[2018-09-19] MEDS: 0.9% NaCl PICC Flush IV (03:41)
[2018-09-19 03:46] VITALS: BP 141/69; PULSE 89; RESP 24; TEMP 36.9; O2SAT 93
--- NOTE | 2018-09-19 05:46 | NURSING ---
Flushed the purple port of the PICC sluggish but was unable to get a blood return to get his AM labs. Asked if it was okay for lab to draw his blood StatesNO I am tired of being poked. Let his primary RN know.
[2018-09-19] MEDS: metroNIDAZOLE 500 MG/100 ML BAG 100 MG IV ×3 (06:05→21:06)
[2018-09-19] MEDS: 0.9% NaCl Peripheral Flush Adult/Peds IV ×3 (06:09→21:14)
[2018-09-19 06:15] LABS: Bedside Glucose 167 mg/dL (70-110)
[2018-09-19 08:01] VITALS: BP 140/71; PULSE 84; RESP 18; TEMP 36.8; O2SAT 94
[2018-09-19 08:28] LABS: Absolute Lymphocyte Count 1.45 X10^3/ul (0.83-4.51); Absolute Neutrophil Count 6.8 X10^3/uL (2.0-7.7); Basophil# 0.02 X10^3/uL; Basophil% 0.2 % (0-1); Eosinophil# 0.42 X10^3/uL; Eosinophils% 4.2 % (0-5); Hematocrit 29.8 % (40-54); Hemoglobin 9.9 g/dl (13.0-16.5); Lymphocyte # 1.45 X10^3/ul (4.0); Lymphocyte % 14.5 % (19-41); Mean Corp Hgb Conc 33.2 g/gl (32-36); Mean Corpuscular Hgb 27.5 pg (27.0-32.0); Mean Corpuscular Volume 82.8 fL (80-94); Mean Platelet Vol. 7.5 fl (6.2-12.0); Monocyte# 1.19 X10^3/uL; Monocyte% 11.9 % (0-10); Neutrophil # 6.82 X10^3/uL (2.7-7.7); Neutrophil % 68.3 % (47-70); Platelet Count 338 K/mm3 (150-450); RBC Distribution Width CV 15.7 % (11.6-14.6); RBC Distribution Width SD 48.6 fl (35.1-43.9)
[2018-09-19 08:32] LABS: POSITIVE COUNT NO; POSITIVE DIFFERENTIAL NO; POSITIVE MORPHOLOGY NO
[2018-09-19 08:50] LABS: ALB/GLOB Ratio 0.6 RATIO (0.9-2.4); AST(SGOT) 12 U/L (15-37); Alanine Aminotransfer ALT/SGPT 14 U/L (16-61); Albumin, Serum 2.6 g/dL (3.2-5.0); Alkaline Phosphatase 61 U/L (45-117); Anion Gap 7 (5-15); BUN 10 mg/dL (7-18); BUN/Creat Ratio 20.9 RATIO (10-20); Calcium,Total 8.2 mg/dL (8.5-10.1); Chloride 96 mmol/L (98-107); Creatinine, Serum 0.48 mg/dL (0.70-1.30); EST Glomerular Filtration Rate 187 mL/min (>60); Est Glom Filt Rate - Afr Amer 226 mL/min (>60); Estimated Creatinine Clearance 139.64 ml/min; Glucose 148 mg/dL (74-106); Phosphorus 2.9 mg/dL (2.5-4.9); Potassium 3.9 mmol/L (3.5-5.1); Protein, Total 6.6 g/dL (6.4-8.2); Sodium Level 130 mmol/L (136-145)
--- NOTE | 2018-09-19 10:33 | NURSING ---
Colostomy appliance intact to the left lower abdomen. there is minimal serosanguineous drainage noted in the appliance. abdomen remains distended and tender. no flatus noted in the appliance. pt is irritable today. will continue to monitor. plan to change ostomy appliance tomorrow or Monday.
[2018-09-19 10:34] VITALS: BP 140/71; PULSE 84
[2018-09-19] MEDS: Pantoprazole Sodium 40 MG Tablet PO (10:34)
[2018-09-19] MEDS: Metoprolol Tartrate 25 MG Tablet PO ×2 (10:34→21:06)
[2018-09-19] MEDS: oxyCODONE 5 MG Tablet PO ×2 (10:34→14:38)
[2018-09-19] MEDS: Fluticasone 0.05% 1 SPRAY NASAL.SRY 2 SPRAY NASAL (10:35)
[2018-09-19] MEDS: Enoxaparin 40 MG/0.4 ML Syringe SC (10:36)
[2018-09-19 12:46] LABS: Bedside Glucose 186 mg/dL (70-110)
[2018-09-19] MEDS: Alteplase 2 MG/2 ML Vial IV (13:00)
--- NOTE | 2018-09-19 14:03 | CASEMGMT ---
Social Work Note Pt still not close to being medically ready for discharge. There are no notes from today available to fax yet. SHAHANA did place a call to Lynette at [facility] for rehab medicine and updated her that pt is not medically cleared yet and that once updated notes are available, this worker will fax updated clinicals. [facility] states understanding. [facility] Caroline Og SOLE CONDITIONER, CLASSIFIED ADVERTISING CLERK
[2018-09-19 14:32] VITALS: BP 133/62; PULSE 77; RESP 18; TEMP 36.5; O2SAT 97
[2018-09-19] MEDS: Ibuprofen 400 MG Tablet PO (14:39)
--- NOTE | 2018-09-19 14:49 | PCM.PN.HOSP ---
Patient Problems: Active and Suspected Problems SBO (small bowel obstruction) (Acute) Subjective: Still with abdominal distention and pain. Vitals/I&O's: Vital Signs Temp Pulse Resp BP Pulse Ox 36.5 C L 77 18 133/62 H 97 09/19/18 14:32 09/19/18 14:32 09/19/18 14:32 09/19/18 14:32 09/19/18 14:32 Oxygen Flow Rate (L/min) 3 Oxygen Delivery Method Room Air Weight: 63.5 kg Body Mass Index (BMI) 21.9 Intake and Output for Last 24 Hours 09/17/18 09/18/18 09/19/18 23:59 23:59 23:59 Intake Total 4767 / 4767 2846 / 2846 3363 / 3363 Output Total 4075 / 4075 1250 / 1250 1575 / 1575 Balance 692 / 692 1596 / 1596 1788 / 1788 General: Alert, No apparent distress HEENT: Atraumatic, Normocephalic Oral: Moist Mucosa, No Gingival or Mucosal Lesions/ Ulcerations Neck: No Nodes, Thyroid Normal Size and Texture Lungs: Clear to auscultation, Normal air movement, No rhonchi, No wheeze, No rales Cardiovascular: Regular rate, Regular Rhythm, Normal S1, Normal S2, No murmurs Abdomen: Bowel Sounds Present, Soft, Hypoactive Bowel Sounds, Distended, Obese Extremities: No edema, No Calf Tenderness Skin: No rashes, No breakdown Musculoskeletal: No Tenderness to Palpation of Joints or Extremities, No Muscle Wasting Psych/Mental Status: Appropriate, Flat Affect Laboratory Results 09/18/18 17:50: POC Glucose 162 H 09/19/18 00:36: POC Glucose 184 H 09/19/18 05:58: POC Glucose 167 H 09/19/18 08:15: Sodium 130 L, Potassium 3.9, Chloride 96 L, Carbon Dioxide 27.0, Anion Gap 7, BUN 10, Creatinine 0.48 L, Estim Creat Clear Calc 139.64, Est GFR (MDRD) Af Amer 226, Est GFR (MDRD) Non-Af 187, BUN/Creatinine Ratio 20.9 H, Glucose 148 H, Calcium 8.2 L, Phosphorus 2.9, Magnesium 2.0, Total Bilirubin 0.10 L, AST 12 L, ALT 14 L, Alkaline Phosphatase 61, Total Protein 6.6, Albumin 2.6 L, Globulin 4.0, Albumin/Globulin Ratio 0.6 L 09/19/18 08:15: WBC 10.0, RBC 3.60 L, Hgb 9.9 L, Hct 29.8 L, MCV 82.8, MCH 27.5, MCHC 33.2, RDW 15.7 H, RDW Differential 48.6 H, Plt Count 338, MPV 7.5, Immature Gran % (Auto) 0.900, Neut % (Auto) 68.3, Lymph % (Auto) 14.5 L, [place] % (Auto) 11.9 H, Eos % (Auto) 4.2, Baso % (Auto) 0.2, Absolute Neuts (auto) 6.8, Absolute Lymphs (auto) 1.45, Total Counted Not Reportable 09/19/18 12:24: POC Glucose 186 H Current Medications Doxazosin Mesylate (Cardura) 2 mg PO QHS [facility] Last Admin: 09/18/18 22:34 Dose: 2 mg Documented by: Enoxaparin Sodium (Lovenox) 40 mg SC DAILY [facility] Last Admin: 09/19/18 10:36 Dose: 40 mg Documented by: Fluticasone Propionate (Flonase Nasal [place]) 2 spray NASAL DAILY [facility] Last Admin: 09/19/18 10:35 Dose: 2 spray Documented by: Heparin Sodium (Beef Lung) () 50 units IV UD PRN PRN Reason: HEPARIN FLUSH Hydralazine HCl (Apresoline Iv) 10 mg IV Q4H PRN PRN PRN Reason: Sys>160, cortes>85 Last Admin: 09/11/18 20:35 Dose: 10 mg Documented by: Ciprofloxacin (Cipro) 400 mg in 200 mls @ 200 mls/hr IV Q12 [facility] Last Admin: 09/19/18 10:36 Dose: 200 mls/hr Documented by: Metronidazole (Flagyl) 500 mg in 100 mls @ 100 mls/hr IV Q8 [facility] Last Admin: 09/19/18 14:28 Dose: 100 mls/hr Documented by: Multivitamins 10 ml/ Chromium/Copper/Manganese/Seleni/Zn 1 ml/ Folic Acid 1 mg/ Amino Acids/Electrolytes 2,011.2 mls @ 84 mls/hr IV .[id number] [facility] Stop: 09/19/18 15:48 Last Admin: 09/18/18 18:02 Dose: 84 mls/hr Documented by: Multivitamins 10 ml/ Chromium/Copper/Manganese/Seleni/Zn 1 ml/ Folic Acid 1 mg/ Amino Acids/Electrolytes 2,011.2 mls @ 84 mls/hr IV .[id number] [facility] Stop: 09/20/18 15:48 Ibuprofen (Motrin) 400 mg PO Q4H PRN PRN PRN Reason: MILD PAIN (1-3/10) Last Admin: 09/19/18 14:39 Dose: 400 mg Documented by: Insulin Human Lispro (Humalog Kwikpen (Bkc)) 0 unit SC Q6 [facility]; Protocol Last Admin: 09/19/18 12:27 Dose: Not Given Documented by: Ipratropium [place] (Atrovent) 0.5 mg INHALATION Q4H.RT PRN PRN Reason: SOB/WHEEZING Metoprolol Tartrate (Lopressor (Beta Joo)) 25 mg PO BID [facility] Last Admin: 09/19/18 10:34 Dose: 25 mg Documented by: Morphine Sulfate () 1 - 3 mg IV Q3H PRN PRN PRN Reason: SEVERE PAIN (6-10/10) Last Admin: 09/19/18 12:28 Dose: 2 mg Documented by: Oxycodone HCl (Oxyir) 5 mg PO Q4H PRN PRN PRN Reason: SEVERE PAIN (6-10/10) Last Admin: 09/19/18 14:38 Dose: 5 mg Documented by: Pantoprazole Sodium (Protonix) 40 mg PO DAILY [facility] Last Admin: 09/19/18 10:34 Dose: 40 mg Documented by: Prochlorperazine Edisylate (Compazine Iv) 5 mg IV Q4H PRN PRN PRN Reason: NAUSEA/VOMITING Last Admin: 09/13/18 22:21 Dose: 5 mg Documented by: Sodium Chloride () 5 - 15 ml IV UD PRN PRN Reason: SALINE FLUSH Last Admin: 09/19/18 06:09 Dose: 15 ml Documented by: Sodium Chloride () 10 - 40 ml IV UD PRN PRN Reason: PICC FLUSH Last Admin: 09/19/18 03:41 Dose: 10 ml Documented by: Tamsulosin HCl (Flomax) 0.4 mg PO DAILY@1730 [facility] Last Admin: 09/18/18 18:02 Dose: 0.4 mg Documented by: Medical Necessity - Tobacco Use Smoking Status: Former smoker Assessment/Plan All Active Problems Pneumonia (Acute) SBO (small bowel obstruction) (Acute) Hypotension (Acute) Hyponatremia (Acute) 1. SBO/ileus NG removed 09/17 still on TPN still NPO 2. s/p sigmoid colostomy mgmt per general surgery 3. stage 4 decubitus ulcer continue wound care and nutrition 4. VTE proph: LMWH. Code Visit Inpatient E&M: 78754 Subs Hosp L2
--- NOTE | 2018-09-19 18:00 | PCM.PN.SRG ---
Patient Problems: Active and Suspected Problems SBO (small bowel obstruction) (Acute) Subjective: no nausea or vomiting, tolerating some liquids - Physical Exam General: Alert, Oriented x3, Cooperative Lungs: Clear to auscultation, Normal air movement Cardiovascular: Regular rate, No murmurs Abdomen: Soft, Hypoactive Bowel Sounds, Tender - at incisions, mildly distended. Stoma with scant liquid in bag Vital Signs Temp Pulse Resp BP Pulse Ox 97.7 F L 77 18 133/62 H 97 09/19/18 14:32 09/19/18 14:32 09/19/18 14:32 09/19/18 14:32 09/19/18 14:32 Oxygen Flow Rate (L/min) 3 Oxygen Delivery Method Room Air Weight: 63.5 kg Body Mass Index (BMI) 21.9 Intake and Output for Last 24 Hours 09/17/18 09/18/18 09/19/18 23:59 23:59 23:59 Intake Total 4767 / 4767 2846 / 2846 3363 / 3363 Output Total 4075 / 4075 1250 / 1250 1575 / 1575 Balance 692 / 692 1596 / 1596 1788 / 1788 Laboratory Tests Past 24 Hrs 09/19/18 09/19/18 08:15 08:15 WBC 10.0 RBC 3.60 L Hgb 9.9 L Hct 29.8 L MCV 82.8 MCH 27.5 MCHC 33.2 RDW 15.7 H RDW Differential 48.6 H Plt Count 338 MPV 7.5 Immature Gran % (Auto) 0.900 Neut % (Auto) 68.3 Lymph % (Auto) 14.5 L [place] % (Auto) 11.9 H Eos % (Auto) 4.2 Baso % (Auto) 0.2 Absolute Neuts (auto) 6.8 Absolute Lymphs (auto) 1.45 Total Counted Not Reportable Sodium 130 L Potassium 3.9 Chloride 96 L Carbon Dioxide 27.0 Anion Gap 7 BUN 10 Creatinine 0.48 L Estim Creat Clear Calc 139.64 Est GFR (MDRD) Af Amer 226 Est GFR (MDRD) Non-Af 187 BUN/Creatinine Ratio 20.9 H Glucose 148 H Calcium 8.2 L Phosphorus 2.9 Magnesium 2.0 Total Bilirubin 0.10 L AST 12 L ALT 14 L Alkaline Phosphatase 61 Total Protein 6.6 Albumin 2.6 L Globulin 4.0 Albumin/Globulin Ratio 0.6 L POC Glucose 09/19/18 09/19/18 09/19/18 12:24 05:58 00:36 POC Glucose 186 H 167 H 184 H Medical Necessity - Tobacco Use Smoking Status: Former smoker Assessment/Plan All Active Problems Pneumonia (Acute) SBO (small bowel obstruction) (Acute) Hypotension (Acute) Hyponatremia (Acute) POD # 15 s/p laparoscopic diverting colostomy for non healing stage 4 decubitus, POD # 4 for single adhesion to Raudel's pouch KUB demonstrated ileus versus SBO - NG placed CT scan without contrast yesterday demonstrated dilated small bowel to ileocecal region without obvious transition point. There was no signs of closed loop obstruction or small bowel between sigmoid and wall and stoma creation site. There was no signs of intra-abdominal abscesses. There was no edema of the bowel leading up to the stoma. It was recommended to try repeating CAT scan with oral contrast. Patient had low-grade fever yesterday. Urinalysis was unremarkable. Chest x-ray demonstrated mild atelectasis.-CT scan demonstrated small left lower lobe infiltrate versus chronic scarring. endoscopy through stoma today demonstrated healthy appearing viable colon to the fascial margin. [place], viable colon above the fascia in the subcutaneous area with edema and pink bowel just below the skin surface where the edge of the mucosa appears dusky. My impression is the stoma is viable right up to the visualized portion. That is likely due to this being an end stoma and tension to stretch the colon edge to the skin edge. I anticipate this will slough superficially and heal but I am certain there is no significant ischemia of the stoma just below the skin edge will follow electrolytes given history of hyponatremia. Appreciate assistance of hospitalist service given confusing clinical picture. Repeat CT scan of the abdomen and pelvis with oral contrast -still suggested partial SBO with transition point in left pelvis but there is less small bowel distention. The transition point does not seem to be in the same location as the previous CAT scan and there is contrast in the colon-cecum ascending colon and transverse colon with minimal contrast still in the small bowel. This is below the stoma site and actually along the margin on the lower sigmoid colon. No prior abdominal surgery. Patient did have 4-5 day post colonoscopy ileus 2 years prior. patient requested NG tube to be removed. This was removed. He tolerated NG tube removal initially but then vomited. abdominal multiview demonstrated again significant distended loops of small bowel with distended air-filled colon. TPN was started Laparoscopic exploration demonstrated single adhesion of small bowel to Raudel's pouchwas performed Monday morning. This was released. the patient was doing well until yesterday afternoon when he coughed hard and noted pain in his stoma site area did a CT scan of the abdomen pelvis was obtained to rule out parastomal hernia. This demonstrated no parastomal hernia. There was noted to be a scant amount of air intraperitoneally and some small bowel distention again. I feel this is postsurgical changes from his second procedure lysis of adhesions. Again post op ileus picture - improving clinical exam. OK for clear liquids PICC line in place. likely multifactorial urinary retention - the patient was restarted on Flomax. He is voiding without difficulty Wound care/decubiti per wound nurse
[2018-09-19] MEDS: Tamsulosin HCl 0.4 MG Capsule PO (18:41)
[2018-09-19 19:16] LABS: Bedside Glucose 218 mg/dL (70-110)
[2018-09-19 21:00] VITALS: BP 127/65; PULSE 82; RESP 18; TEMP 36.6; O2SAT 94
[2018-09-19 21:06] VITALS: BP 127/65; PULSE 86
[2018-09-19] MEDS: Doxazosin 1 MG Tablet 2 MG PO (21:06)
[2018-09-20] LABS: Bedside Glucose 204 mg/dL (70-110)
[2018-09-20 02:00] VITALS: BP 127/67; PULSE 86; RESP 18; TEMP 36.6; O2SAT 99
[2018-09-20] MEDS: oxyCODONE 5 MG Tablet PO ×2 (02:17→14:32)
--- NOTE | 2018-09-20 04:49 | NURSING ---
pt getting aggravated because ribbon blocker draw his blood and pt states he has picc line. spoke to charge nurse and states we cannot draw labs because pt has TPN running. explained to pt what sanaz nurse said and he states that's another reason to stop his TPN and no more blood draws.
[2018-09-20 05:29] LABS: Absolute Lymphocyte Count 1.05 X10^3/ul (0.83-4.51); Absolute Neutrophil Count 3.4 X10^3/uL (2.0-7.7); Basophil# 0.04 X10^3/uL; Basophil% 0.7 % (0-1); Eosinophils% 6.8 % (0-5); Hematocrit 28.5 % (40-54); Hemoglobin 9.2 g/dl (13.0-16.5); Lymphocyte # 1.05 X10^3/ul (4.0); Lymphocyte % 17.8 % (19-41); Mean Corp Hgb Conc 32.3 g/gl (32-36); Mean Corpuscular Volume 83.6 fL (80-94); Mean Platelet Vol. 7.8 fl (6.2-12.0); Monocyte# 0.91 X10^3/uL; Monocyte% 15.4 % (0-10); Neutrophil # 3.44 X10^3/uL (2.7-7.7); Neutrophil % 58.3 % (47-70); Platelet Count 407 K/mm3 (150-450); RBC Distribution Width CV 15.7 % (11.6-14.6); RBC Distribution Width SD 46.5 fl (35.1-43.9); Red Blood Count 3.41 M/mm3 (4.6-6.2); White Blood Count 5.9 K/mm3 (4.4-11.0)
[2018-09-20 05:31] LABS: POSITIVE COUNT NO; POSITIVE DIFFERENTIAL NO; POSITIVE MORPHOLOGY NO
[2018-09-20 05:42] LABS: Anion Gap 4 (5-15); BUN 10 mg/dL (7-18); BUN/Creat Ratio 23.6 RATIO (10-20); Chloride 102 mmol/L (98-107); Creatinine, Serum 0.42 mg/dL (0.70-1.30); EST Glomerular Filtration Rate 215 mL/min (>60); Est Glom Filt Rate - Afr Amer 261 mL/min (>60); Estimated Creatinine Clearance 159.59 ml/min; Glucose 160 mg/dL (74-106); Potassium 4.1 mmol/L (3.5-5.1); Sodium Level 134 mmol/L (136-145)
[2018-09-20] MEDS: metroNIDAZOLE 500 MG/100 ML BAG 100 MG IV (06:22)
--- NOTE | 2018-09-20 06:54 | PN.SURG_ITS ---
Patient Problems: Active and Suspected Problems SBO (small bowel obstruction) (Acute) Subjective: hungry, more air in stoma bag - Physical Exam General: Alert, Oriented x3, Cooperative Lungs: Clear to auscultation, Normal air movement Cardiovascular: Regular rate, No murmurs Abdomen: Bowel Sounds Present, Soft, - - increased air and stoma bag Vital Signs Temp Pulse Resp BP Pulse Ox 98 F 86 18 127/67 H 99 09/20/18 02:00 09/20/18 02:00 09/20/18 02:00 09/20/18 02:00 09/20/18 02:00 Oxygen Flow Rate (L/min) 3 Oxygen Delivery Method Room Air Weight: 63.5 kg Body Mass Index (BMI) 21.9 Intake and Output for Last 24 Hours 09/18/18 09/19/18 09/20/18 23:59 23:59 23:59 Intake Total 2846 / 2846 4212 / 4898 1853 / 1853 Output Total 1250 / 1250 2875 / 3250 1125 / 1125 Balance 1596 / 1596 1337 / 1648 728 / 728 Laboratory Tests Past 24 Hrs 09/19/18 09/19/18 09/20/18 08:15 08:15 04:45 WBC 10.0 5.9 RBC 3.60 L 3.41 L Hgb 9.9 L 9.2 L Hct 29.8 L 28.5 L MCV 82.8 83.6 MCH 27.5 27.0 MCHC 33.2 32.3 RDW 15.7 H 15.7 H RDW Differential 48.6 H 46.5 H Plt Count 338 407 MPV 7.5 7.8 Immature Gran % (Auto) 0.900 1.000 H Neut % (Auto) 68.3 58.3 Lymph % (Auto) 14.5 L 17.8 L [place] % (Auto) 11.9 H 15.4 H Eos % (Auto) 4.2 6.8 H Baso % (Auto) 0.2 0.7 Absolute Neuts (auto) 6.8 3.4 Absolute Lymphs (auto) 1.45 1.05 Total Counted Not Reportable Not Reportable Sodium 130 L Potassium 3.9 Chloride 96 L Carbon Dioxide 27.0 Anion Gap 7 BUN 10 Creatinine 0.48 L Estim Creat Clear Calc 139.64 Est GFR (MDRD) Af Amer 226 Est GFR (MDRD) Non-Af 187 BUN/Creatinine Ratio 20.9 H Glucose 148 H Calcium 8.2 L Phosphorus 2.9 Magnesium 2.0 Total Bilirubin 0.10 L AST 12 L ALT 14 L Alkaline Phosphatase 61 Total Protein 6.6 Albumin 2.6 L Globulin 4.0 Albumin/Globulin Ratio 0.6 L 07// 04:45 WBC RBC Hgb Hct MCV MCH MCHC RDW RDW Differential Plt Count MPV Immature Gran % (Auto) Neut % (Auto) Lymph % (Auto) [place] % (Auto) Eos % (Auto) Baso % (Auto) Absolute Neuts (auto) Absolute Lymphs (auto) Total Counted Sodium 134 L Potassium 4.1 Chloride 102 Carbon Dioxide 28.0 Anion Gap 4 L BUN 10 Creatinine 0.42 L Estim Creat Clear Calc 159.59 Est GFR (MDRD) Af Amer 261 Est GFR (MDRD) Non-Af 215 BUN/Creatinine Ratio 23.6 H Glucose 160 H Calcium 8.0 L Phosphorus Magnesium Total Bilirubin AST ALT Alkaline Phosphatase Total Protein Albumin Globulin Albumin/Globulin Ratio POC Glucose 07// 07/12/2909/19/18 23:49 18:30 12:24 POC Glucose 204 H 218 H 186 H Medical Necessity - Tobacco Use Smoking Status: Former smoker Assessment/Plan All Active Problems Pneumonia (Acute) SBO (small bowel obstruction) (Acute) Hypotension (Acute) Hyponatremia (Acute) POD # 16 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 There was no signs of closed loop obstruction or small bowel between sigmoid and wall and stoma creation site. There was no signs of intra- abdominal abscesses. There was no edema of the bowel leading up to the stoma. It was recommended to try repeating CAT scan with oral contrast. Patient had low-grade fever yesterday. Urinalysis was unremarkable. Chest x- ray demonstrated mild atelectasis.-CT scan demonstrated small left lower lobe infiltrate versus chronic scarring. endoscopy through stoma today demonstrated healthy appearing viable colon to the fascial margin. [place], viable colon above the fascia in the subcutaneous area with edema and pink bowel just below the skin surface where the edge of the mucosa appears dusky. My impression is the stoma is viable right up to the visualized portion. That is likely due to this being an end stoma and tension to stretch the colon edge to the skin edge. I anticipate this will slough superficially and heal but I am certain there is no significant ischemia of the stoma just below the skin edge will follow electrolytes given history of hyponatremia. Appreciate assistance of hospitalist service given confusing clinical picture. Repeat CT scan of the abdomen and pelvis with oral contrast -still suggested partial SBO with transition point in left pelvis but there is less small bowel distention. The transition point does not seem to be in the same location as the previous CAT scan and there is contrast in the colon-cecum ascending colon and transverse colon with minimal contrast still in the small bowel. This is below the stoma site and actually along the margin on the lower sigmoid colon. No prior abdominal surgery. Patient did have 4-5 day post colonoscopy ileus 2 years prior. patient requested NG tube to be removed. This was removed. He tolerated NG tube removal initially but then vomited. abdominal multiview demonstrated again significant distended loops of small bowel with distended air-filled colon. TPN was started Laparoscopic exploration demonstrated single adhesion of small bowel to Raudel's pouchwas performed Monday morning. This was released. the patient was doing well until yesterday afternoon when he coughed hard and noted pain in his stoma site area did a CT scan of the abdomen pelvis was obtained to rule out parastomal hernia. This demonstrated no parastomal hernia. There was noted to be a scant amount of air intraperitoneally and some small bowel distention again. I feel this is postsurgical changes from his second procedure lysis of adhesions. Again post op ileus picture - improving clinical exam. tolerating full liquids will advance diet as tolerated and restart calorie counts. PICC line in place. likely multifactorial urinary retention - the patient was restarted on Flomax. He is voiding without difficulty Wound care/decubiti per wound nurse
[2018-09-20 08:00] VITALS: BP 111/57; PULSE 90; RESP 18; TEMP 36.7; O2SAT 97
[2018-09-20 08:31] LABS: Bedside Glucose 158 mg/dL (70-110)
--- NOTE | 2018-09-20 08:58 | CASEMGMT ---
Addendum entered by Dorene Gordon 09/20/18 10:12: SW spoke w/physician, pt is still not ready for discharge. SW will let [facility] know when to start precert. There was discussion of LTACH but at this time this is not the appropriate level of care as per physician. RONNIE Blair Original Note: SHAHANA faxed updates to [facility]. SW called [facility], spoke w/Puma. SW let her know it is unclear if they should start the precert yet, but SW will call them as soon as this SW knows when it is appropriate to start the precert. SW will continue to follow, will speak w/physician and let Gopal know if it's time to start precert. RONNIE Blair
[2018-09-20] MEDS: Morphine 2 MG/ML Syringe IV ×4 (09:33→20:57)
[2018-09-20] MEDS: Pantoprazole Sodium 40 MG Tablet PO (09:36)
[2018-09-20] MEDS: Fluticasone 0.05% 1 SPRAY NASAL.SRY 2 SPRAY NASAL (09:36)
[2018-09-20 09:39] VITALS: BP 111/57; PULSE 90
[2018-09-20] MEDS: Metoprolol Tartrate 25 MG Tablet PO ×2 (09:39→21:26)
[2018-09-20] MEDS: Enoxaparin 40 MG/0.4 ML Syringe SC (09:42)
--- NOTE | 2018-09-20 09:46 | CASEMGMT ---
RN CM NOTE: Dr Leigh states feels pt may be appropriate level of care for LTAC. To room to talk with pt about LTAC and options of facilities. He was made aware the closest LTAC's are in [place]. Pt adamantly states he does not want to go that far away and is not agreeable to going to an LTAC. This RN CM spoke with Dr Leigh and informed him of this. Dr Leigh states pt is now eating and does not think pt will need to go to LTAC after-all. Pt made aware. Shalini MÁRQUEZN RN CM
[2018-09-20 12:31] LABS: Bedside Glucose 185 mg/dL (70-110)
--- NOTE | 2018-09-20 13:18 | PN_ITS ---
Patient Problems: Active and Suspected Problems SBO (small bowel obstruction) (Acute) Subjective: Feeling better. Had tolerated a breakfast sandwich when I saw him this AM. Vitals/I&O's: Vital Signs Temp Pulse Resp BP Pulse Ox 36.7 C 90 18 111/57 L 97 09/20/18 08:00 09/20/18 09:39 09/20/18 08:00 09/20/18 09:39 09/20/18 08:00 Oxygen Flow Rate (L/min) 3 Oxygen Delivery Method Room Air Weight: 63.5 kg Body Mass Index (BMI) 21.9 Intake and Output for Last 24 Hours 09/18/18 09/19/18 09/20/18 23:59 23:59 23:59 Intake Total 2846 / 2846 4212 / 4898 3131 / 3131 Output Total 1250 / 1250 2875 / 3250 1925 / 1925 Balance 1596 / 1596 1337 / 1648 1206 / 1206 General: Alert, No apparent distress HEENT: Atraumatic, Normocephalic Oral: Moist Mucosa, No Gingival or Mucosal Lesions/ Ulcerations Neck: No Nodes, Thyroid Normal Size and Texture Lungs: Clear to auscultation, Normal air movement, No rhonchi, No wheeze, No rales Cardiovascular: Regular rate, Regular Rhythm, Normal S1, Normal S2, No murmurs Abdomen: Soft, Non Tender, Hypoactive Bowel Sounds, Distended Extremities: No clubbing, No edema, No Calf Tenderness Skin: No rashes, No breakdown Psych/Mental Status: Normal Affect, Appropriate, Flat Affect Laboratory Results 09/19/18 18:30: POC Glucose 218 H 09/19/18 23:49: POC Glucose 204 H 09/20/18 04:45: WBC 5.9, RBC 3.41 L, Hgb 9.2 L, Hct 28.5 L, MCV 83.6, MCH 27.0, MCHC 32.3, RDW 15.7 H, RDW Differential 46.5 H, Plt Count 407, MPV 7.8, Immature Gran % (Auto) 1.000 H, Neut % (Auto) 58.3, Lymph % (Auto) 17.8 L, [place] % (Auto) 15.4 H, Eos % (Auto) 6.8 H, Baso % (Auto) 0.7, Absolute Neuts (auto) 3.4, Absolute Lymphs (auto) 1.05, Total Counted Not Reportable 09/20/18 04:45: Sodium 134 L, Potassium 4.1, Chloride 102, Carbon Dioxide 28.0, Anion Gap 4 L, BUN 10, Creatinine 0.42 L, Estim Creat Clear Calc 159.59, Est GFR (MDRD) Af Amer 261, Est GFR (MDRD) Non-Af 215, BUN/Creatinine Ratio 23.6 H, Glucose 160 H, Calcium 8.0 L 09/20/18 06:19: POC Glucose 158 H 09/20/18 12:12: POC Glucose 185 H Current Medications Doxazosin Mesylate (Cardura) 2 mg PO QHS [facility] Last Admin: 09/19/18 21:06 Dose: 2 mg Documented by: Enoxaparin Sodium (Lovenox) 40 mg SC DAILY [facility] Last Admin: 09/20/18 09:42 Dose: 40 mg Documented by: Fluticasone Propionate (Flonase Nasal [place]) 2 spray NASAL DAILY [facility] Last Admin: 09/20/18 09:36 Dose: 2 spray Documented by: Heparin Sodium (Beef Lung) () 50 units IV UD PRN PRN Reason: HEPARIN FLUSH Hydralazine HCl (Apresoline Iv) 10 mg IV Q4H PRN PRN PRN Reason: Sys>160, cortes>85 Last Admin: 09/11/18 20:35 Dose: 10 mg Documented by: Multivitamins 10 ml/ Chromium/Copper/Manganese/Seleni/Zn 1 ml/ Folic Acid 1 mg/ Amino Acids/Electrolytes 2,011.2 mls @ 84 mls/hr IV .[id number] [facility] Stop: 09/20/18 15:48 Last Admin: 09/19/18 18:42 Dose: 84 mls/hr Documented by: Multivitamins 10 ml/ Chromium/Copper/Manganese/Seleni/Zn 1 ml/ Folic Acid 1 mg/ Amino Acids/Electrolytes 2,011.2 mls @ 42 mls/hr IV .Q24H [facility] Stop: 09/21/18 15:47 Fat Emulsion Intravenous (Intralipid 20%) 250 mls @ 21 mls/hr IV .[id number] [facility] Stop: 09/21/18 03:54 Ibuprofen (Motrin) 400 mg PO Q4H PRN PRN PRN Reason: MILD PAIN (-05/20) Last Admin: 09/19/18 14:39 Dose: 400 mg Documented by: Insulin Human Lispro (Humalog Kwikpen (Bkc)) 0 unit SC Q6 [facility]; Protocol Last Admin: 09/20/18 12:13 Dose: Not Given Documented by: Ipratropium [place] (Atrovent) 0.5 mg INHALATION Q4H.RT PRN PRN Reason: SOB/WHEEZING Metoprolol Tartrate (Lopressor (Beta Joo)) 25 mg PO BID [facility] Last Admin: 09/20/18 09:39 Dose: 25 mg Documented by: Morphine Sulfate () 1 - 3 mg IV Q3H PRN PRN PRN Reason: SEVERE PAIN (-12/20) Last Admin: 09/20/18 12:49 Dose: 2 mg Documented by: Oxycodone HCl (Oxyir) 5 mg PO Q4H PRN PRN PRN Reason: SEVERE PAIN (-12/20) Last Admin: 09/20/18 02:17 Dose: 5 mg Documented by: Pantoprazole Sodium (Protonix) 40 mg PO DAILY [facility] Last Admin: 09/20/18 09:36 Dose: 40 mg Documented by: Prochlorperazine Edisylate (Compazine Iv) 5 mg IV Q4H PRN PRN PRN Reason: NAUSEA/VOMITING Last Admin: 09/13/18 22:21 Dose: 5 mg Documented by: Sodium Chloride () 5 - 15 ml IV UD PRN PRN Reason: SALINE FLUSH Last Admin: 09/19/18 21:14 Dose: 10 ml Documented by: Sodium Chloride () 10 - 40 ml IV UD PRN PRN Reason: PICC FLUSH Last Admin: 09/19/18 03:41 Dose: 10 ml Documented by: Tamsulosin HCl (Flomax) 0.4 mg PO DAILY@1730 [facility] Last Admin: 09/19/18 18:41 Dose: 0.4 mg Documented by: Medical Necessity - Tobacco Use Smoking Status: Former smoker Assessment/Plan All Active Problems Pneumonia (Acute) SBO (small bowel obstruction) (Acute) Hypotension (Acute) Hyponatremia (Acute) 1. SBO/ileus * NG removed 09/17 * still on TPN, decrease total from 2 to 1 liter today since currently eating * diet advanced 09/20 * DC abx 2. s/p sigmoid colostomy * mgmt per general surgery 3. stage 4 decubitus ulcer * continue wound care and nutrition 4. VTE proph: LMWH. 5. DM2 * on SSI * check an A1c Code Visit Inpatient E&M: 50881 Subs Hosp L2
--- NOTE | 2018-09-20 13:55 | CASEMGMT ---
Addendum entered by Dorene Gordon 09/20/18 15:32: Karla called back and asked for additional therapy notes, SW faxed them and let her know they are on their way. She states will want updated clinicals tomorrow in case insurance requests them, and will be asking for precert for Monday. That way if pt is ready on Monday or Monday this precert would be good. SW will continue to follow. RONNIE Blair Original Note: Pt is making some progress, it may be appropriate for [facility] to start precert. SHAHANA called [facility], spoke w/Lynette and let her know pt may be ready soon(possibly on weekend) and to start precert. She asked about TPN, SW let her know pt will likely not be on TPN at discharge but to check w/Caroline, the SW covering tomorrow. She will do so. One additional progress note faxed to Lynette. SW will continue to follow. RONNIE Blair
--- NOTE | 2018-09-20 14:30 | NURSING ---
Colostomy appliance removed to reassess the stoma and peristomal skin. stoma is much less dusky now. there is still some mild redness to the peristomal skin. abdomen is still quite distended and tender. there has been a moderate amount of flatus in the appliance, but still no stool noted. cleansed peristomal skin with warm water. pat dry. applied a new 2 piece flat [place] appliance with a small amount of stoma paste. pt tolerated well. pt still c/o of odor with the appliance change and burping of the bag. pt insists on covering his face, turning on the fan, and applying oxygen to avoid the odor. pt will need much encouragement to perform any ostomy care.
[2018-09-20] MEDS: Ibuprofen 400 MG Tablet PO (14:32)
[2018-09-20 14:34] VITALS: BP 141/73; PULSE 97; RESP 18; TEMP 36.8; O2SAT 96
[2018-09-20] MEDS: Fat Emulsions 20% 250 ML IV (16:07)
[2018-09-20 17:25] LABS: Bedside Glucose 190 mg/dL (70-110)
[2018-09-20] MEDS: Tamsulosin HCl 0.4 MG Capsule PO (18:18)
[2018-09-20 21:01] VITALS: BP 111/69; PULSE 111; RESP 18; TEMP 36.8; O2SAT 93
[2018-09-20] MEDS: Doxazosin 1 MG Tablet 2 MG PO (21:20)
[2018-09-20 21:26] VITALS: PULSE 111
[2018-09-21] MEDS: Morphine 2 MG/ML Syringe IV (00:41)
[2018-09-21] MEDS: proCHLORPERazine 10 MG/2 ML Vial 5 MG IV (00:51)
[2018-09-21 01:16] LABS: Bedside Glucose 156 mg/dL (70-110)
[2018-09-21 02:05] VITALS: BP 112/78; PULSE 108; RESP 16; TEMP 36.8; O2SAT 97
[2018-09-21] MEDS: 0.9% NaCl PICC Flush IV (06:06)
[2018-09-21 07:16] LABS: Bedside Glucose 136 mg/dL (70-110)
[2018-09-21 07:48] LABS: Anion Gap 8 (5-15); BUN 19 mg/dL (7-18); BUN/Creat Ratio 36.8 RATIO (10-20); Calcium,Total 8.8 mg/dL (8.5-10.1); Chloride 96 mmol/L (98-107); Creatinine, Serum 0.52 mg/dL (0.70-1.30); EST Glomerular Filtration Rate 171 mL/min (>60); Est Glom Filt Rate - Afr Amer 207 mL/min (>60); Glucose 114 mg/dL (74-106); Potassium 4.2 mmol/L (3.5-5.1); Sodium Level 133 mmol/L (136-145)
[2018-09-21 07:50] LABS: Hemoglobin A1c 5.8 % (4.2-6.3)
--- NOTE | 2018-09-21 08:57 | PCM.PN.HOSP ---
Patient Problems: Active and Suspected Problems SBO (small bowel obstruction) (Acute) Subjective: worsened abdominal pain 09/20 after eating, now back on clears. no flatus. Vitals/I&O's: Vital Signs Temp Pulse Resp BP Pulse Ox 36.8 C 108 H 16 112/78 97 09/21/18 02:05 09/21/18 02:05 09/21/18 02:05 09/21/18 02:05 09/21/18 02:05 Oxygen Flow Rate (L/min) 3 Oxygen Delivery Method Room Air Weight: 63.5 kg Body Mass Index (BMI) 21.9 Intake and Output for Last 24 Hours 09/19/18 09/20/18 09/21/18 23:59 23:59 23:59 Intake Total 4212 / 4898 3478 / 3478 1514 / 1514 Output Total 2875 / 3250 2850 / 2850 800 / 800 Balance 1337 / 1648 628 / 628 714 / 714 General: Alert, No apparent distress HEENT: Atraumatic, Normocephalic Oral: Moist Mucosa, No Gingival or Mucosal Lesions/ Ulcerations Neck: No Nodes, Thyroid Normal Size and Texture Lungs: Clear to auscultation, Normal air movement, No rhonchi, No wheeze, No rales Cardiovascular: Regular rate, Regular Rhythm, Normal S1, Normal S2, No murmurs Abdomen: Hypoactive Bowel Sounds, Distended, Obese, Tender Extremities: No edema, No Calf Tenderness Skin: No rashes, No breakdown Psych/Mental Status: Normal Affect, Appropriate Laboratory Results 09/20/18 12:12: POC Glucose 185 H 09/20/18 16:52: POC Glucose 190 H 09/21/18 00:42: POC Glucose 156 H 09/21/18 05:45: POC Glucose 136 H 09/21/18 06:00: Sodium 133 L, Potassium 4.2, Chloride 96 L, Carbon Dioxide 29.0, Anion Gap 8, BUN 19 H, Creatinine 0.52 L, Estim Creat Clear Calc 128.90, Est GFR (MDRD) Af Amer 207, Est GFR (MDRD) Non-Af 171, BUN/Creatinine Ratio 36.8 H, Glucose 114 H, Calcium 8.8 09/21/18 06:00: Hemoglobin A1c 5.8 Current Medications Doxazosin Mesylate (Cardura) 2 mg PO QHS [facility] Last Admin: 09/20/18 21:20 Dose: 2 mg Documented by: Enoxaparin Sodium (Lovenox) 40 mg SC DAILY [facility] Last Admin: 09/20/18 09:42 Dose: 40 mg Documented by: Fluticasone Propionate (Flonase Nasal [place]) 2 spray NASAL DAILY [facility] Last Admin: 09/20/18 09:36 Dose: 2 spray Documented by: Heparin Sodium (Beef Lung) () 50 units IV UD PRN PRN Reason: HEPARIN FLUSH Hydralazine HCl (Apresoline Iv) 10 mg IV Q4H PRN PRN PRN Reason: Sys>160, cortes>85 Last Admin: 09/11/18 20:35 Dose: 10 mg Documented by: Multivitamins 10 ml/ Chromium/Copper/Manganese/Seleni/Zn 1 ml/ Folic Acid 1 mg/ Amino Acids/Electrolytes 2,011.2 mls @ 42 mls/hr IV .Q24H [facility] Stop: 09/21/18 15:47 Last Admin: 09/20/18 16:07 Dose: 42 mls/hr Documented by: Ibuprofen (Motrin) 400 mg PO Q4H PRN PRN PRN Reason: MILD PAIN (1-310) Last Admin: 09/20/18 14:32 Dose: 400 mg Documented by: Insulin Human Lispro (Humalog Kwikpen (Bkc)) 0 unit SC Q6 [facility]; Protocol Last Admin: 09/21/18 05:53 Dose: Not Given Documented by: Ipratropium [place] (Atrovent) 0.5 mg INHALATION Q4H.RT PRN PRN Reason: SOB/WHEEZING Metoprolol Tartrate (Lopressor (Beta Joo)) 25 mg PO BID [facility] Last Admin: 09/20/18 21:26 Dose: 25 mg Documented by: Morphine Sulfate () 1 - 3 mg IV Q3H PRN PRN PRN Reason: SEVERE PAIN (6-10/10) Last Admin: 09/21/18 00:41 Dose: 2 mg Documented by: Oxycodone HCl (Oxyir) 5 mg PO Q4H PRN PRN PRN Reason: SEVERE PAIN (6-10/10) Last Admin: 09/20/18 14:32 Dose: 5 mg Documented by: Pantoprazole Sodium (Protonix) 40 mg PO DAILY [facility] Last Admin: 09/20/18 09:36 Dose: 40 mg Documented by: Prochlorperazine Edisylate (Compazine Iv) 5 mg IV Q4H PRN PRN PRN Reason: NAUSEA/VOMITING Last Admin: 09/21/18 00:51 Dose: 5 mg Documented by: Sodium Chloride () 5 - 15 ml IV UD PRN PRN Reason: SALINE FLUSH Last Admin: 09/19/18 21:14 Dose: 10 ml Documented by: Sodium Chloride () 10 - 40 ml IV UD PRN PRN Reason: PICC FLUSH Last Admin: 09/21/18 06:06 Dose: 40 ml Documented by: Tamsulosin HCl (Flomax) 0.4 mg PO DAILY@1730 [facility] Last Admin: 09/20/18 18:18 Dose: 0.4 mg Documented by: Medical Necessity - Tobacco Use Smoking Status: Former smoker Assessment/Plan All Active Problems Pneumonia (Acute) SBO (small bowel obstruction) (Acute) Hypotension (Acute) Hyponatremia (Acute) 1. SBO/ileus NG removed 09/17 still on TPN, decrease total from 2 to 1 liter today since currently eating diet advanced 09/20 to regular then deescalated back to clears off abx since 09/20 2. s/p sigmoid colostomy mgmt per general surgery 3. stage 4 decubitus ulcer continue wound care and nutrition 4. VTE proph: LMWH. 5. DM2 on SSI check an A1c Code Visit Inpatient E&M: 66603 [facility] Hosp L2
[2018-09-21 10:34] VITALS: BP 99/68; PULSE 97; RESP 18; TEMP 36.4; O2SAT 98
[2018-09-21 10:39] VITALS: PULSE 97
[2018-09-21] MEDS: Metoprolol Tartrate 25 MG Tablet PO ×2 (10:39→23:20)
[2018-09-21] MEDS: Enoxaparin 40 MG/0.4 ML Syringe SC (10:40)
[2018-09-21] MEDS: Fluticasone 0.05% 1 SPRAY NASAL.SRY 2 SPRAY NASAL (10:40)
--- NOTE | 2018-09-21 10:57 | CASEMGMT ---
Social Work Note SW faxed updated clinicals to [facility]. Green sheet on chart in the event pre-cert is obtained. Lynette at [facility] will need to be updated if pt discharges on TPN before pt is able to be discharged. Plan: Gopal Moser pending pre-cert Caroline Og MSW, [facility]
[2018-09-21 12:05] LABS: Bedside Glucose 143 mg/dL (70-110)
--- NOTE | 2018-09-21 16:11 | PCM.PN.SRG ---
Subjective: vomited overnight but still wanting liquids - Physical Exam General: Alert, Oriented x3, Cooperative Lungs: Clear to auscultation, Normal air movement Cardiovascular: Regular rate, Regular Rhythm Abdomen: Bowel Sounds Present, Soft, Non Tender, - - air and stool in stoma bag. Vital Signs Temp Pulse Resp BP Pulse Ox 97.6 F L 97 18 99/68 98 09/21/18 10:34 09/21/18 10:39 09/21/18 10:34 09/21/18 10:34 09/21/18 10:34 Oxygen Flow Rate (L/min) 3 Oxygen Delivery Method Room Air Weight: 63.5 kg Body Mass Index (BMI) 21.9 Intake and Output for Last 24 Hours 09/19/18 09/20/18 09/21/18 23:59 23:59 23:59 Intake Total 4212 / 4898 3478 / 3478 1910 / 1910 Output Total 2875 / 3250 2850 / 2850 1775 / 1775 Balance 1337 / 1648 628 / 628 135 / 135 Laboratory Tests Past 24 Hrs 09/21/18 09/21/18 06:00 06:00 Sodium 133 L Potassium 4.2 Chloride 96 L Carbon Dioxide 29.0 Anion Gap 8 BUN 19 H Creatinine 0.52 L Estim Creat Clear Calc 128.90 Est GFR (MDRD) Af Amer 207 Est GFR (MDRD) Non-Af 171 BUN/Creatinine Ratio 36.8 H Glucose 114 H Hemoglobin A1c 5.8 Calcium 8.8 POC Glucose 09/21/18 09/21/18 09/21/18 11:13 05:45 00:42 POC Glucose 143 H 136 H 156 H 09/20/18 16:52 POC Glucose 190 H Medical Necessity - Tobacco Use Smoking Status: Former smoker Assessment/Plan All Active Problems Pneumonia (Acute) SBO (small bowel obstruction) (Acute) Hypotension (Acute) Hyponatremia (Acute) POD # 16 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 There was no signs of closed loop obstruction or small bowel between sigmoid and wall and stoma creation site. There was no signs of intra-abdominal abscesses. There was no edema of the bowel leading up to the stoma. It was recommended to try repeating CAT scan with oral contrast. Patient had low-grade fever yesterday. Urinalysis was unremarkable. Chest x-ray demonstrated mild atelectasis.-CT scan demonstrated small left lower lobe infiltrate versus chronic scarring. endoscopy through stoma today demonstrated healthy appearing viable colon to the fascial margin. [place], viable colon above the fascia in the subcutaneous area with edema and pink bowel just below the skin surface where the edge of the mucosa appears dusky. My impression is the stoma is viable right up to the visualized portion. That is likely due to this being an end stoma and tension to stretch the colon edge to the skin edge. I anticipate this will slough superficially and heal but I am certain there is no significant ischemia of the stoma just below the skin edge will follow electrolytes given history of hyponatremia. Appreciate assistance of hospitalist service given confusing clinical picture. Repeat CT scan of the abdomen and pelvis with oral contrast -still suggested partial SBO with transition point in left pelvis but there is less small bowel distention. The transition point does not seem to be in the same location as the previous CAT scan and there is contrast in the colon-cecum ascending colon and transverse colon with minimal contrast still in the small bowel. This is below the stoma site and actually along the margin on the lower sigmoid colon. No prior abdominal surgery. Patient did have 4-5 day post colonoscopy ileus 2 years prior. patient requested NG tube to be removed. This was removed. He tolerated NG tube removal initially but then vomited. abdominal multiview demonstrated again significant distended loops of small bowel with distended air-filled colon. TPN was started Laparoscopic exploration demonstrated single adhesion of small bowel to Raudel's pouchwas performed Monday morning. This was released. the patient was doing well until yesterday afternoon when he coughed hard and noted pain in his stoma site area did a CT scan of the abdomen pelvis was obtained to rule out parastomal hernia. This demonstrated no parastomal hernia. There was noted to be a scant amount of air intraperitoneally and some small bowel distention again. I feel this is postsurgical changes from his second procedure lysis of adhesions. Again post op ileus picture - improving clinical exam. tolerating full liquids will advance diet as tolerated and restart calorie counts. he vomited again on solid food. He seems to be tolerating liquids. At this point, I question whether the same radiation process that is contributed to his rectal issues and stage IV decubitus has more distal small bowel radiation changes than I anticipated. we will maintain him on liquids. We will try Reglan to see if this improves his symptoms. If he still having challenging issues would try to minimize his distention and then obtain a small bowel series to see if I can truly delineate radiation changes in the distal bowel or whether this is again an early postoperative small bowel obstruction. PICC line in place. likely multifactorial urinary retention - the patient was restarted on Flomax. He is voiding without difficulty Wound care/decubiti per wound nurse
[2018-09-21 17:12] VITALS: BP 111/59; PULSE 81; RESP 18; TEMP 36.8; O2SAT 95
[2018-09-21] MEDS: Tamsulosin HCl 0.4 MG Capsule PO (17:16)
[2018-09-21 23:18] VITALS: BP 142/63; PULSE 89; RESP 18; TEMP 37.1; O2SAT 97
[2018-09-21 23:20] VITALS: BP 142/63; PULSE 89
[2018-09-21] MEDS: Doxazosin 1 MG Tablet 2 MG PO (23:20)
[2018-09-21 23:45] LABS: Bedside Glucose 173 mg/dL (70-110)
[2018-09-21 23:45] LABS: Bedside Glucose 139 mg/dL (70-110)
[2018-09-22 04:24] VITALS: BP 136/84; PULSE 94; RESP 16; TEMP 37.3; O2SAT 95
[2018-09-22 07:00] LABS: Bedside Glucose 164 mg/dL (70-110)
[2018-09-22 09:00] VITALS: PULSE 88
[2018-09-22] MEDS: Metoprolol Tartrate 25 MG Tablet PO ×2 (09:00→21:48)
[2018-09-22] MEDS: Pantoprazole Sodium 40 MG Tablet PO (09:01)
[2018-09-22] MEDS: Enoxaparin 40 MG/0.4 ML Syringe SC (09:01)
[2018-09-22] MEDS: Fluticasone 0.05% 1 SPRAY NASAL.SRY 2 SPRAY NASAL (09:01)
[2018-09-22] MEDS: oxyCODONE 5 MG Tablet PO (09:05)
[2018-09-22 10:24] VITALS: BP 123/66; PULSE 88; RESP 16; TEMP 37.2; O2SAT 97
--- NOTE | 2018-09-22 11:12 | PCM.PN.SRG ---
Subjective: I walked into patient's room and he stated that he wanted chicken noodle soup. He told me he just ordered it, but didn't get it. He told me that he was upset about not being able to eat. I explained to him that I was here to evaluate him on behalf of Dr. Nunez, because he was out of town. The patient states that he is frustrated because he can't have real food. When I asked him if he had any abdominal pains, he said he had hunger pains. The patient told me that unless I can give him real food to just leave. I did not get a chance to examine patient as he refused. I did not want to upset patient further so I did leave the patient's room. - Physical Exam Vital Signs Temp Pulse Resp BP Pulse Ox 99.0 F 88 16 123/66 H 97 09/22/18 10:24 09/22/18 10:24 09/22/18 10:24 09/22/18 10:24 09/22/18 10:24 Oxygen Flow Rate (L/min) 3 Oxygen Delivery Method Room Air Weight: 63.5 kg Body Mass Index (BMI) 21.9 Intake and Output for Last 24 Hours 09/20/18 09/21/18 09/22/18 23:59 23:59 23:59 Intake Total 3478 / 3478 2287 / 3180 1657 / 1657 Output Total 2850 / 2850 3975 / 4575 1550 / 1550 Balance 628 / 628 -1688 / -1395 107 / 107 POC Glucose 09/22/18 09/21/18 09/21/18 06:54 23:16 17:15 POC Glucose 164 H 173 H 139 H 09/21/18 11:13 POC Glucose 143 H Medical Necessity - Tobacco Use Smoking Status: Former smoker Assessment/Plan All Active Problems Pneumonia (Acute) SBO (small bowel obstruction) (Acute) Hypotension (Acute) Hyponatremia (Acute)
[2018-09-22 12:00] LABS: Bedside Glucose 152 mg/dL (70-110)
--- NOTE | 2018-09-22 13:04 | PCM.PN.HOSP ---
Patient Problems: Active and Suspected Problems SBO (small bowel obstruction) (Acute) Subjective: States that he wants chicken noodle soup. Abdomen feeling better. Positive flatus. Vitals/I&O's: Vital Signs Temp Pulse Resp BP Pulse Ox 37.2 C 88 16 123/66 H 97 09/22/18 10:24 09/22/18 10:24 09/22/18 10:24 09/22/18 10:24 09/22/18 10:24 Oxygen Flow Rate (L/min) 3 Oxygen Delivery Method Room Air Weight: 63.5 kg Body Mass Index (BMI) 21.9 Intake and Output for Last 24 Hours 09/20/18 09/21/18 09/22/18 23:59 23:59 23:59 Intake Total 3478 / 3478 2287 / 3180 2031 / 2031 Output Total 2850 / 2850 3975 / 4575 2450 / 2450 Balance 628 / 628 -1688 / -1395 -418 / -418 General: Alert, No apparent distress HEENT: Atraumatic, Normocephalic Oral: Moist Mucosa, No Gingival or Mucosal Lesions/ Ulcerations Neck: No Nodes, Thyroid Normal Size and Texture Lungs: Clear to auscultation, Normal air movement, No rhonchi, No wheeze, No rales Cardiovascular: Regular rate, Regular Rhythm, Normal S1, Normal S2, No murmurs Abdomen: Bowel Sounds Present, Soft, Non Tender, Non-Distended, No Hepato-splenomegaly, - - colostomy with air and light brown stool. Extremities: No edema, No Calf Tenderness Psych/Mental Status: Appropriate, Flat Affect Laboratory Results 09/21/18 17:15: POC Glucose 139 H 09/21/18 23:16: POC Glucose 173 H 09/22/18 06:54: POC Glucose 164 H 09/22/18 11:35: POC Glucose 152 H Current Medications Doxazosin Mesylate (Cardura) 2 mg PO QHS [facility] Last Admin: 09/21/18 23:20 Dose: 2 mg Documented by: Enoxaparin Sodium (Lovenox) 40 mg SC DAILY [facility] Last Admin: 09/22/18 09:01 Dose: 40 mg Documented by: Fluticasone Propionate (Flonase Nasal [place]) 2 spray NASAL DAILY [facility] Last Admin: 09/22/18 09:01 Dose: 2 spray Documented by: Heparin Sodium (Beef Lung) () 50 units IV UD PRN PRN Reason: HEPARIN FLUSH Hydralazine HCl (Apresoline Iv) 10 mg IV Q4H PRN PRN PRN Reason: Sys>160, cortes>85 Last Admin: 09/11/18 20:35 Dose: 10 mg Documented by: Multivitamins 10 ml/ Chromium/Copper/Manganese/Seleni/Zn 1 ml/ Folic Acid 1 mg/ Amino Acids/Electrolytes 2,011.2 mls @ 84 mls/hr IV .[id number] [facility] Stop: 09/22/18 15:48 Last Admin: 09/21/18 17:16 Dose: 84 mls/hr Documented by: Ibuprofen (Motrin) 400 mg PO Q4H PRN PRN PRN Reason: MILD PAIN (1-3/10) Last Admin: 09/20/18 14:32 Dose: 400 mg Documented by: Insulin Human Lispro (Humalog Kwikpen (Bkc)) 0 unit SC Q6 [facility]; Protocol Last Admin: 09/22/18 11:45 Dose: Not Given Documented by: Ipratropium [place] (Atrovent) 0.5 mg INHALATION Q4H.RT PRN PRN Reason: SOB/WHEEZING Metoprolol Tartrate (Lopressor (Beta Joo)) 25 mg PO BID [facility] Last Admin: 09/22/18 09:00 Dose: 25 mg Documented by: Morphine Sulfate () 1 - 3 mg IV Q3H PRN PRN PRN Reason: SEVERE PAIN (6-10/10) Last Admin: 09/21/18 00:41 Dose: 2 mg Documented by: Oxycodone HCl (Oxyir) 5 mg PO Q4H PRN PRN PRN Reason: SEVERE PAIN (6-10/10) Last Admin: 09/22/18 09:05 Dose: 5 mg Documented by: Pantoprazole Sodium (Protonix) 40 mg PO DAILY [facility] Last Admin: 09/22/18 09:01 Dose: 40 mg Documented by: Prochlorperazine Edisylate (Compazine Iv) 5 mg IV Q4H PRN PRN PRN Reason: NAUSEA/VOMITING Last Admin: 09/21/18 00:51 Dose: 5 mg Documented by: Sodium Chloride () 5 - 15 ml IV UD PRN PRN Reason: SALINE FLUSH Last Admin: 09/19/18 21:14 Dose: 10 ml Documented by: Sodium Chloride () 10 - 40 ml IV UD PRN PRN Reason: PICC FLUSH Last Admin: 09/21/18 06:06 Dose: 40 ml Documented by: Tamsulosin HCl (Flomax) 0.4 mg PO DAILY@1730 [facility] Last Admin: 09/21/18 17:16 Dose: 0.4 mg Documented by: Medical Necessity - Tobacco Use Smoking Status: Former smoker Assessment/Plan All Active Problems Pneumonia (Acute) SBO (small bowel obstruction) (Acute) Hypotension (Acute) Hyponatremia (Acute) 1. SBO/ileus clinically improved NG removed 09/17 diet advanced 09/20 to regular then deescalated back to clears off abx since 09/20 on clears per general surgery 2. s/p sigmoid colostomy mgmt per general surgery 3. stage 4 decubitus ulcer continue wound care and nutrition 4. VTE proph: LMWH. 5. DM2 on SSI check an A1c Discussed with Dr. Herring, patient became upset with Dr. Herring and asked her to leave the room. She cannot tell me that she will not be seeing the patient over the weekend. I did inform nursing to allow the patient have a chicken of soup on top of the clears. Code Visit Inpatient E&M: 32208 Subs Hosp L2
[2018-09-22 16:24] VITALS: BP 96/61; PULSE 96; RESP 16; TEMP 36.8; O2SAT 94
[2018-09-22] MEDS: Fat Emulsions 20% 250 ML IV (16:45)
[2018-09-22] MEDS: Tamsulosin HCl 0.4 MG Capsule PO (17:14)
[2018-09-22 17:35] LABS: Bedside Glucose 124 mg/dL (70-110)
[2018-09-22 21:48] VITALS: PULSE 103
[2018-09-22] MEDS: Doxazosin 1 MG Tablet 2 MG PO (21:49)
[2018-09-22 21:56] VITALS: BP 124/81; PULSE 103; RESP 18; TEMP 36.6; O2SAT 95
[2018-09-23] VITALS (7 sets, daily range): BP systolic 112–153; BP diastolic 58–71; PULSE 85–96; RESP 18–20; TEMP 36.4–37.5; O2SAT 92–97
[2018-09-23 00:21] LABS: Bedside Glucose 143 mg/dL (70-110)
[2018-09-23 05:41] LABS: Bedside Glucose 127 mg/dL (70-110)
[2018-09-23] MEDS: Fluticasone 0.05% 1 SPRAY NASAL.SRY 2 SPRAY NASAL (09:31)
[2018-09-23] MEDS: Enoxaparin 40 MG/0.4 ML Syringe SC (09:35)
[2018-09-23] MEDS: Metoprolol Tartrate 25 MG Tablet PO ×2 (09:35→21:49)
[2018-09-23] MEDS: Pantoprazole Sodium 40 MG Tablet PO (09:35)
--- NOTE | 2018-09-23 09:55 | PN_ITS ---
Patient Problems: Active and Suspected Problems SBO (small bowel obstruction) (Acute) Subjective: Feeling better. Tolerating PO. Positive BMs. Vitals/I&O's: Vital Signs Temp Pulse Resp BP Pulse Ox 37.2 C 91 18 127/69 H 97 09/23/18 09:29 09/23/18 09:35 09/23/18 09:29 09/23/18 09:35 09/23/18 09:29 Oxygen Flow Rate (L/min) 3 Oxygen Delivery Method Room Air Weight: 63.5 kg Body Mass Index (BMI) 21.9 Intake and Output for Last 24 Hours 09/21/18 09/22/18 09/23/18 23:59 23:59 23:59 Intake Total 2287 / 3180 2396 / 2396 644 / 644 Output Total 3975 / 4575 3200 / 3200 500 / 500 Balance -1688 / -1395 -804 / -804 144 / 144 General: Alert, No apparent distress HEENT: Atraumatic, Normocephalic Oral: Moist Mucosa, No Gingival or Mucosal Lesions/ Ulcerations Neck: No Nodes, Thyroid Normal Size and Texture Lungs: Clear to auscultation, Normal air movement, No rhonchi, No wheeze, No rales Cardiovascular: Regular rate, Regular Rhythm, Normal S1, Normal S2, No murmurs Abdomen: Bowel Sounds Present, Soft, Non Tender, Non-Distended, No Hepato- splenomegaly, - - stoma in LLQ with clean margins. Extremities: No edema, No Calf Tenderness Skin: No rashes, No breakdown Psych/Mental Status: Normal Affect, Appropriate, - - making jokes Laboratory Results 09/22/18 11:35: POC Glucose 152 H 09/22/18 17:28: POC Glucose 124 H 09/23/18 00:14: POC Glucose 143 H 09/23/18 05:27: POC Glucose 127 H Current Medications Doxazosin Mesylate (Cardura) 2 mg PO QHS [facility] Last Admin: 09/22/18 21:49 Dose: 2 mg Documented by: Enoxaparin Sodium (Lovenox) 40 mg SC DAILY [facility] Last Admin: 09/23/18 09:35 Dose: 40 mg Documented by: Fluticasone Propionate (Flonase Nasal [place]) 2 spray NASAL DAILY [facility] Last Admin: 09/23/18 09:31 Dose: 2 spray Documented by: Heparin Sodium (Beef Lung) () 50 units IV UD PRN PRN Reason: HEPARIN FLUSH Hydralazine HCl (Apresoline Iv) 10 mg IV Q4H PRN PRN PRN Reason: Sys>160, cortes>85 Last Admin: 09/11/18 20:35 Dose: 10 mg Documented by: Multivitamins 10 ml/ Chromium/Copper/Manganese/Seleni/Zn 1 ml/ Folic Acid 1 mg/ Amino Acids/Electrolytes 2,011.2 mls @ 42 mls/hr IV .Q24H [facility] Stop: 09/23/18 15:47 Last Admin: 09/22/18 16:45 Dose: 42 mls/hr Documented by: Ibuprofen (Motrin) 400 mg PO Q4H PRN PRN PRN Reason: MILD PAIN (1-3/10) Last Admin: 09/20/18 14:32 Dose: 400 mg Documented by: Insulin Human Lispro (Humalog Kwikpen (Bkc)) 0 unit SC Q6 [facility]; Protocol Last Admin: 09/23/18 05:42 Dose: Not Given Documented by: Ipratropium [place] (Atrovent) 0.5 mg INHALATION Q4H.RT PRN PRN Reason: SOB/WHEEZING Metoprolol Tartrate (Lopressor (Beta Joo)) 25 mg PO BID [facility] Last Admin: 09/23/18 09:35 Dose: 25 mg Documented by: Morphine Sulfate () 1 - 3 mg IV Q3H PRN PRN PRN Reason: SEVERE PAIN (6-10/10) Last Admin: 09/21/18 00:41 Dose: 2 mg Documented by: Oxycodone HCl (Oxyir) 5 mg PO Q4H PRN PRN PRN Reason: SEVERE PAIN (6-10/10) Last Admin: 09/22/18 09:05 Dose: 5 mg Documented by: Pantoprazole Sodium (Protonix) 40 mg PO DAILY [facility] Last Admin: 09/23/18 09:35 Dose: 40 mg Documented by: Prochlorperazine Edisylate (Compazine Iv) 5 mg IV Q4H PRN PRN PRN Reason: NAUSEA/VOMITING Last Admin: 09/21/18 00:51 Dose: 5 mg Documented by: Sodium Chloride () 5 - 15 ml IV UD PRN PRN Reason: SALINE FLUSH Last Admin: 09/19/18 21:14 Dose: 10 ml Documented by: Sodium Chloride () 10 - 40 ml IV UD PRN PRN Reason: PICC FLUSH Last Admin: 09/21/18 06:06 Dose: 40 ml Documented by: Tamsulosin HCl (Flomax) 0.4 mg PO DAILY@1730 [facility] Last Admin: 09/22/18 17:14 Dose: 0.4 mg Documented by: Medical Necessity - Tobacco Use Smoking Status: Former smoker Assessment/Plan All Active Problems Pneumonia (Acute) SBO (small bowel obstruction) (Acute) Hypotension (Acute) Hyponatremia (Acute) 1. SBO/ileus * clinically improved * NG removed 09/17 * diet advanced 09/20 to regular then deescalated back to clears * off abx since 09/20 * advance to full liquid diet * hold TPN today 2. s/p sigmoid colostomy * mgmt per general surgery 3. stage 4 decubitus ulcer * continue wound care and nutrition 4. VTE proph: LMWH. 5. DM2 * on SSI * A1c 5.[address] Herring 09/22, patient became upset with Dr. Herring and asked her to leave the room. She cannot tell me that she will not be seeing the patient over the weekend. To Mayra to resume primary service on 09/24. Code Visit Inpatient E&M: 19512 Subs Hosp L2
[2018-09-23 12:25] LABS: Bedside Glucose 206 mg/dL (70-110)
--- NOTE | 2018-09-23 13:38 | PCM.PN.BLA ---
Progress Note Did not examine patient as he told me to not evaluate him yesterday. I have reviewed patient's notes. Agree with Dr. Leigh's assessment and also to advance diet as tolerated I had asked dietary to obtain a calorie count to determine if TPN could be discontinued I will remain on standby if any surgical problems develop
[2018-09-23] MEDS: 0.9% NaCl Peripheral Flush Adult/Peds IV (16:10)
[2018-09-23] MEDS: Tamsulosin HCl 0.4 MG Capsule PO (17:32)
[2018-09-23 17:41] LABS: Bedside Glucose 93 mg/dL (70-110)
[2018-09-23] MEDS: Doxazosin 1 MG Tablet 2 MG PO (21:49)
[2018-09-24 02:57] VITALS: BP 139/70; PULSE 85; RESP 16; TEMP 36.8; O2SAT 96
[2018-09-24 06:13] LABS: Anion Gap 8 (5-15); BUN 10 mg/dL (7-18); BUN/Creat Ratio 18.2 RATIO (10-20); Calcium,Total 8.4 mg/dL (8.5-10.1); Chloride 103 mmol/L (98-107); Creatinine, Serum 0.55 mg/dL (0.70-1.30); EST Glomerular Filtration Rate 159 mL/min (>60); Est Glom Filt Rate - Afr Amer 193 mL/min (>60); Estimated Creatinine Clearance 121.87 ml/min; Glucose 105 mg/dL (74-106); Potassium 3.9 mmol/L (3.5-5.1); Sodium Level 137 mmol/L (136-145)
--- NOTE | 2018-09-24 06:26 | RAD_ITS ---
STUDY: GASTROGRAFIN UPPER GI SERIES. REASON FOR EXAM: Male, 63 years old. Abdominal distention. FLUOROSCOPY TIME (if supplied): (1:51) minutes/seconds TECHNIQUE: The patient ingested Gastrografin. This is a limited study due to the patient's immobility. COMPARISON: None. FINDINGS: There is a small sliding hiatal hernia without gastroesophageal reflux. The stomach is unremarkable. There is no evidence of ulceration. No mass lesion is present. RAD/Upper GI Series Only IMPRESSION: Small sliding hiatal hernia without gastro-esophageal reflux. Electronically Signed: Aayush Ibarra, at 13:37 EDT , Service support ,
--- NOTE | 2018-09-24 09:13 | NURSING ---
Colostomy appliance is intact to the left lower abdomen. patient states the appliance was changed on 09/23/18 d/t a blowout. there is currently a small amount of garcia liquid stool noted as well as some flatus. patient very irritated this am that he is not able to eat now because he states that Dr Nunez was in and plans to do an upper GI this am. pt states that he is getting tired of his food being taken away. feels he is doing better and things are working. Unsure of plan. will discuss with nurse.
--- NOTE | 2018-09-24 09:16 | PCM.PN.HOSP ---
Subjective: He is feeling much better today, states that he has been able to tolerate his diet without any nausea or vomiting. He has had stool output, and his ostomy bag is full of air this morning. Vitals/I&O's: Vital Signs Temp Pulse Resp BP Pulse Ox 98.3 F 85 16 139/70 H 96 09/24/18 02:57 09/24/18 02:57 09/24/18 02:57 09/24/18 02:57 09/24/18 02:57 Oxygen Flow Rate (L/min) 3 Oxygen Delivery Method Room Air Weight: 139 lb 15.896 oz Body Mass Index (BMI) 21.9 Intake and Output for Last 24 Hours 09/22/18 09/23/18 09/24/18 23:59 23:59 23:59 Intake Total 2396 / 2396 2275 / 2275 Output Total 3200 / 3200 1150 / 1700 550 / 550 Balance -804 / -804 1125 / 575 -550 / -550 General: Alert, Oriented x3, Cooperative, No apparent distress HEENT: Atraumatic, EOMI, Normocephalic Oral: Moist Mucosa Neck: Supple, No JVD Lungs: Clear to auscultation, Normal air movement, No rhonchi, No wheeze, No rales, Diminished Cardiovascular: Regular rate, Regular Rhythm, Normal S1, Normal S2, No murmurs Abdomen: Soft, Non Tender, Non-Distended, No Hepato-splenomegaly, - - Ostomy left lower quadrant, pink Extremities: No edema, Capillary Refill Less than 3 Seconds Skin: Incision - Clean dry and intact Neurological: Neuro grossly intact, Sensory exam intact to light touch and pain Psych/Mental Status: Normal Affect, Appropriate Laboratory Results 09/23/18 12:19: POC Glucose 206 H 09/23/18 17:29: POC Glucose 93 09/24/18 05:35: Sodium 137, Potassium 3.9, Chloride 103, Carbon Dioxide 26.0, Anion Gap 8, BUN 10, Creatinine 0.55 L, Estim Creat Clear Calc 121.87, Est GFR (MDRD) Af Amer 193, Est GFR (MDRD) Non-Af 159, BUN/Creatinine Ratio 18.2, Glucose 105, Calcium 8.4 L Current Medications Doxazosin Mesylate (Cardura) 2 mg PO QHS [facility] Last Admin: 09/23/18 21:49 Dose: 2 mg Documented by: Enoxaparin Sodium (Lovenox) 40 mg SC DAILY [facility] Last Admin: 09/23/18 09:35 Dose: 40 mg Documented by: Fluticasone Propionate (Flonase Nasal [place]) 2 spray NASAL DAILY [facility] Last Admin: 09/23/18 09:31 Dose: 2 spray Documented by: Heparin Sodium (Beef Lung) () 50 units IV UD PRN PRN Reason: HEPARIN FLUSH Hydralazine HCl (Apresoline Iv) 10 mg IV Q4H PRN PRN PRN Reason: Sys>160, cortes>85 Last Admin: 09/11/18 20:35 Dose: 10 mg Documented by: Ibuprofen (Motrin) 400 mg PO Q4H PRN PRN PRN Reason: MILD PAIN (1-3/10) Last Admin: 09/20/18 14:32 Dose: 400 mg Documented by: Ipratropium [place] (Atrovent) 0.5 mg INHALATION Q4H.RT PRN PRN Reason: SOB/WHEEZING Metoprolol Tartrate (Lopressor (Beta Joo)) 25 mg PO BID [facility] Last Admin: 09/23/18 21:49 Dose: 25 mg Documented by: Morphine Sulfate () 1 - 3 mg IV Q3H PRN PRN PRN Reason: SEVERE PAIN (6-10/10) Last Admin: 09/21/18 00:41 Dose: 2 mg Documented by: Oxycodone HCl (Oxyir) 5 mg PO Q4H PRN PRN PRN Reason: SEVERE PAIN (6-10/10) Last Admin: 09/22/18 09:05 Dose: 5 mg Documented by: Pantoprazole Sodium (Protonix) 40 mg PO DAILY [facility] Last Admin: 09/23/18 09:35 Dose: 40 mg Documented by: Prochlorperazine Edisylate (Compazine Iv) 5 mg IV Q4H PRN PRN PRN Reason: NAUSEA/VOMITING Last Admin: 09/21/18 00:51 Dose: 5 mg Documented by: Sodium Chloride () 5 - 15 ml IV UD PRN PRN Reason: SALINE FLUSH Last Admin: 09/23/18 16:10 Dose: 10 ml Documented by: Sodium Chloride () 10 - 40 ml IV UD PRN PRN Reason: PICC FLUSH Last Admin: 09/21/18 06:06 Dose: 40 ml Documented by: Tamsulosin HCl (Flomax) 0.4 mg PO DAILY@1730 [facility] Last Admin: 09/23/18 17:32 Dose: 0.4 mg Documented by: Medical Necessity - Tobacco Use Smoking Status: Former smoker Assessment/Plan All Active Problems Pneumonia (Acute) SBO (small bowel obstruction) (Acute) Hypotension (Acute) Hyponatremia (Acute) 1. SBO/possible ileus status post sigmoid colostomy for a nonhealing stage IV decubitus ulcer -He has had this stage IV decubitus ulcer on his buttock for almost 2 years -States he has a history of spinal stenosis and degenerative disc disease and has over time lost feeling in his legs which is led to multiple falls -He fell over his walker and broke his leg which necessitated him being in a residential which is where he ended up developing as decubitus ulcer -He presented for a planned diverting colostomy to help this heal and has had an ileus/possible small bowel obstruction ever since -States that he has been eating and drinking well over the weekend -Proceed with upper GI evaluation per general surgery, if normal would plan on advancing diet -At the moment everything is medically stable for discharge if okay with surgery 2. HTN/HLD -Stable -Continue with his home Norvasc, aspirin, Zetia, metoprolol 3. Anxiety/depression -Stable -Continue with Wellbutrin, BuSpar, Lexapro 4. Spinal stenosis and degenerative disc disease -Continue with Zanaflex as needed -We will continue with oxycodone as needed as well for both his back pain and his postop surgical pain 5. Chronic iron deficiency anemia -He is on iron at home -We will restart once he is taking p.o. well 6. GERD -Stable -Continue with Protonix DVT: Lovenox Code Visit Inpatient E&M: 27430 Subs Hosp L2
--- NOTE | 2018-09-24 09:22 | NURSING ---
wound photo: right elbow
--- NOTE | 2018-09-24 09:22 | NURSING ---
wound photo: right buttock
--- NOTE | 2018-09-24 09:23 | CASEMGMT ---
Addendum entered by Caroline Og 09/24/18 13:48: SHAHANA received message from Lynette at [facility] stating she is still in limbo in regards to determining if pt's pre-cert is still good for today. SHAHANA spoke with RN who states physician advanced pt's diet to full and is unlikely pt will discharge today as physician will want to monitor pt's diet. SW to continue to follow. Addendum entered by Caroline Og 09/24/18 11:41: SHAHANA spoke with Lynette at [facility]. Lynette confirms she received updated clinicals for pt. Lynette states she believes pt's pre-cert is still good for today but she will have to confirm with her business office. SHAHANA informed Lynette that pt is down getting GI series and as soon as pt is cleared by surgery this worker will arrange transportation. Lynette states understanding, states she will call this worker back once she speaks with business office. Addendum entered by Caroline Og 09/24/18 10:19: SHAHANA received message from Lynette at [facility] stating if she is faxed updated PT/OT and nursing notes from over the weekend, she should be able to submit updates to [facility] and shouldn't have to get new pre-cert again. SHAHANA faxed updates to [facility]. Original Note: Social Work Note SW received message from Karla at [facility] stating pre-cert is still good for today and asked if pt will be discharged today. Karla provided number [phone]. SHAHANA to speak with physician. Plan: [facility] once medically cleared Caroline Og POWDER ROOM ATTENDANT, TELEPHONE INSTRUMENT SUPERVISOR
[2018-09-24 09:30] VITALS: BP 142/69; PULSE 87; RESP 16; TEMP 36.9; O2SAT 93
[2018-09-24] MEDS: Fluticasone 0.05% 1 SPRAY NASAL.SRY 2 SPRAY NASAL (12:09)
[2018-09-24 12:10] VITALS: PULSE 87
[2018-09-24] MEDS: Enoxaparin 40 MG/0.4 ML Syringe SC (12:10)
[2018-09-24] MEDS: Metoprolol Tartrate 25 MG Tablet PO ×2 (12:10→20:59)
[2018-09-24] MEDS: Pantoprazole Sodium 40 MG Tablet PO (12:11)
[2018-09-24] MEDS: Tamsulosin HCl 0.4 MG Capsule PO (17:29)
[2018-09-24] MEDS: Metoclopramide 10 MG/2 ML Vial IV ×2 (17:29→23:45)
[2018-09-24 20:59] VITALS: PULSE 103
[2018-09-24] MEDS: Doxazosin 1 MG Tablet 2 MG PO (20:59)
[2018-09-24] MEDS: oxyCODONE 5 MG Tablet PO (22:15)
[2018-09-25] MEDS: Metoclopramide 10 MG/2 ML Vial IV ×4 (06:09→23:10)
--- NOTE | 2018-09-25 07:52 | PCM.PN.HOSP ---
Subjective: No issues, dollar tolerating a diet and is having BM and flatus in his ostomy bag Vitals/I&O's: Vital Signs Temp Pulse Resp BP Pulse Ox 98.4 F 103 H 16 142/69 H 93 09/24/18 09:30 09/24/18 20:59 09/24/18 09:30 09/24/18 09:30 09/24/18 09:30 Oxygen Flow Rate (L/min) 3 Oxygen Delivery Method Room Air Weight: 139 lb 15.896 oz Body Mass Index (BMI) 21.9 Intake and Output for Last 24 Hours 09/23/18 09/24/18 09/25/18 23:59 23:59 23:59 Intake Total 2275 / 2275 1296 / 1296 Output Total 1150 / 1700 550 / 1350 1100 / 1100 Balance 1125 / 575 -550 / -785 196 / 196 General: Alert, Oriented x3, Cooperative, No apparent distress HEENT: Atraumatic, EOMI, Normocephalic Oral: Moist Mucosa Neck: Supple, No JVD Lungs: Clear to auscultation, Normal air movement, No rhonchi, No wheeze, No rales, Diminished Cardiovascular: Regular rate, Regular Rhythm, Normal S1, Normal S2, No murmurs Abdomen: Soft, Non Tender, Non-Distended, No Hepato-splenomegaly, - - Ostomy left lower quadrant, pink Extremities: No edema, Capillary Refill Less than 3 Seconds Skin: Incision - Clean dry and intact Neurological: Neuro grossly intact, Sensory exam intact to light touch and pain Psych/Mental Status: Normal Affect, Appropriate Current Medications Doxazosin Mesylate (Cardura) 2 mg PO QHS [facility] Last Admin: 09/24/18 20:59 Dose: 2 mg Documented by: Enoxaparin Sodium (Lovenox) 40 mg SC DAILY [facility] Last Admin: 09/24/18 12:10 Dose: 40 mg Documented by: Fluticasone Propionate (Flonase Nasal [place]) 2 spray NASAL DAILY [facility] Last Admin: 09/24/18 12:09 Dose: 2 spray Documented by: Heparin Sodium (Beef Lung) () 50 units IV UD PRN PRN Reason: HEPARIN FLUSH Hydralazine HCl (Apresoline Iv) 10 mg IV Q4H PRN PRN PRN Reason: Sys>160, cortes>85 Last Admin: 09/11/18 20:35 Dose: 10 mg Documented by: Ibuprofen (Motrin) 400 mg PO Q4H PRN PRN PRN Reason: MILD PAIN (1-310) Last Admin: 09/20/18 14:32 Dose: 400 mg Documented by: Ipratropium [place] (Atrovent) 0.5 mg INHALATION Q4H.RT PRN PRN Reason: SOB/WHEEZING Metoclopramide HCl (Reglan) 10 mg IV Q6 [facility] Last Admin: 09/25/18 06:09 Dose: 10 mg Documented by: Metoprolol Tartrate (Lopressor (Beta Joo)) 25 mg PO BID [facility] Last Admin: 09/24/18 20:59 Dose: 25 mg Documented by: Morphine Sulfate () 1 - 3 mg IV Q3H PRN PRN PRN Reason: SEVERE PAIN (6-1010) Last Admin: 09/21/18 00:41 Dose: 2 mg Documented by: Oxycodone HCl (Oxyir) 5 mg PO Q4H PRN PRN PRN Reason: SEVERE PAIN (6-1010) Last Admin: 09/24/18 22:15 Dose: 5 mg Documented by: Pantoprazole Sodium (Protonix) 40 mg PO DAILY [facility] Last Admin: 09/24/18 12:11 Dose: 40 mg Documented by: Prochlorperazine Edisylate (Compazine Iv) 5 mg IV Q4H PRN PRN PRN Reason: NAUSEA/VOMITING Last Admin: 09/21/18 00:51 Dose: 5 mg Documented by: Sodium Chloride () 5 - 15 ml IV UD PRN PRN Reason: SALINE FLUSH Last Admin: 09/23/18 16:10 Dose: 10 ml Documented by: Sodium Chloride () 10 - 40 ml IV UD PRN PRN Reason: PICC FLUSH Last Admin: 09/21/18 06:06 Dose: 40 ml Documented by: Tamsulosin HCl (Flomax) 0.4 mg PO DAILY@1730 [facility] Last Admin: 09/24/18 17:29 Dose: 0.4 mg Documented by: Medical Necessity - Tobacco Use Smoking Status: Former smoker Assessment/Plan All Active Problems Pneumonia (Acute) SBO (small bowel obstruction) (Acute) Hypotension (Acute) Hyponatremia (Acute) 1. SBO/possible ileus status post sigmoid colostomy for a nonhealing stage IV decubitus ulcer -He has had this stage IV decubitus ulcer on his buttock for almost 2 years -States he has a history of spinal stenosis and degenerative disc disease and has over time lost feeling in his legs which is led to multiple falls -He fell over his walker and broke his leg which necessitated him being in a usp which is where he ended up developing as decubitus ulcer -He presented for a planned diverting colostomy to help this heal and has had an ileus/possible small bowel obstruction ever since -States that he has been eating and drinking well over the weekend -Proceed with upper GI evaluation per general surgery, if normal would plan on advancing diet -At the moment everything is medically stable for discharge 2. HTN/HLD -Stable -Continue with his home Norvasc, aspirin, Zetia, metoprolol 3. Anxiety/depression -Stable -Continue with Wellbutrin, BuSpar, Lexapro 4. Spinal stenosis and degenerative disc disease -Continue with Zanaflex as needed -We will continue with oxycodone as needed as well for both his back pain and his postop surgical pain 5. Chronic iron deficiency anemia -He is on iron at home -We will restart once he is taking p.o. well 6. GERD -Stable -Continue with Protonix DVT: Lovenox Code Visit Inpatient E&M: 18392 Subs Hosp L2
[2018-09-25 08:57] VITALS: BP 129/61; PULSE 111; RESP 16; TEMP 36.7; O2SAT 95
[2018-09-25] MEDS: Fluticasone 0.05% 1 SPRAY NASAL.SRY 2 SPRAY NASAL (09:04)
[2018-09-25] MEDS: Pantoprazole Sodium 40 MG Tablet PO (09:05)
[2018-09-25] MEDS: Enoxaparin 40 MG/0.4 ML Syringe SC (09:05)
[2018-09-25 09:06] VITALS: PULSE 111
[2018-09-25] MEDS: Metoprolol Tartrate 25 MG Tablet PO ×2 (09:06→21:29)
--- NOTE | 2018-09-25 09:46 | CASEMGMT ---
Addendum entered by Caroline Og 09/25/18 15:58: SHAHANA placed a call to [facility] and pre-cert is still pending. Addendum entered by Caroline Og 09/25/18 13:45: SW placed a call to [facility] and pre-cert is still pending. Addendum entered by Caroline Og 09/25/18 09:53: SW received call from Lynette at [facility] stating pre-cert was and they resubmitted for pre-cert yesterday morning. Lynette is still waiting for pre-cert. Plan: [facility] pending pre-cert Caroline FELIX, SR. MEDIA MANAGER Original Note: Social Work Note SHAHANA placed a call to Lynette at [facility] inquiring if pre-cert is still good today as pt is medically cleared for discharge today. Lynette states she hasn't heard anything but will call the business office to determine if they know anything. SHAHANA waiting for call back. Plan: SHAHANA waiting to determine if pre-cert is still good for today. If pre-cert is not still good today, pre-cert will need to be resubmitted. Caroline FELIX, SR. MEDIA MANAGER
--- NOTE | 2018-09-25 11:53 | PN.SURG_ITS ---
Subjective: no complaints -Missed note for September 24 - Physical Exam General: Alert, Oriented x3, Cooperative Lungs: Clear to auscultation, Normal air movement Cardiovascular: Regular rate, No murmurs Abdomen: Bowel Sounds Present, Soft, - - stool and air and stoma bag Vital Signs Temp Pulse Resp BP Pulse Ox 98.1 F 111 H 16 129/61 H 95 09/25/18 08:57 09/25/18 09:06 09/25/18 08:57 09/25/18 08:57 09/25/18 08:57 Oxygen Flow Rate (L/min) 3 Oxygen Delivery Method Room Air Weight: 63.5 kg Body Mass Index (BMI) 21.9 Intake and Output for Last 24 Hours 09/23/18 09/24/18 09/25/18 23:59 23:59 23:59 Intake Total 2275 / 2275 1296 / 1296 Output Total 1150 / 1700 550 / 1350 1100 / 1100 Balance 1125 / 575 -550 / -785 196 / 196 Medical Necessity - Tobacco Use Smoking Status: Former smoker Assessment/Plan All Active Problems Pneumonia (Acute) SBO (small bowel obstruction) (Acute) Hypotension (Acute) Hyponatremia (Acute) POD # 20 s/p laparoscopic diverting colostomy for non healing stage 4 decubitus, POD # 8 for single adhesion to Raudel's pouch KUB demonstrated ileus versus SBO - NG placed CT scan without contrast yesterday demonstrated dilated small bowel to ileocecal region without obvious transition point. There was no signs of closed loop obstruction or small bowel between sigmoid and wall and stoma creation site. There was no signs of intra- abdominal abscesses. There was no edema of the bowel leading up to the stoma. It was recommended to try repeating CAT scan with oral contrast. Patient had low-grade fever yesterday. Urinalysis was unremarkable. Chest x- ray demonstrated mild atelectasis.-CT scan demonstrated small left lower lobe infiltrate versus chronic scarring. endoscopy through stoma today demonstrated healthy appearing viable colon to the fascial margin. [place], viable colon above the fascia in the subcutaneous area with edema and pink bowel just below the skin surface where the edge of the mucosa appears dusky. My impression is the stoma is viable right up to the visualized portion. That is likely due to this being an end stoma and tension to stretch the colon edge to the skin edge. I anticipate this will slough superficially and heal but I am certain there is no significant ischemia of the stoma just below the skin edge will follow electrolytes given history of hyponatremia. Appreciate assistance of hospitalist service given confusing clinical picture. Repeat CT scan of the abdomen and pelvis with oral contrast -still suggested partial SBO with transition point in left pelvis but there is less small bowel distention. The transition point does not seem to be in the same location as the previous CAT scan and there is contrast in the colon-cecum ascending colon and transverse colon with minimal contrast still in the small bowel. This is below the stoma site and actually along the margin on the lower sigmoid colon. No prior abdominal surgery. Patient did have 4-5 day post colonoscopy ileus 2 years prior. patient requested NG tube to be removed. This was removed. He tolerated NG t ube removal initially but then vomited. abdominal multiview demonstrated again significant distended loops of small bowel with distended air-filled colon. TPN was started Laparoscopic exploration demonstrated single adhesion of small bowel to Raudel's pouchwas performed Monday morning. This was released. the patient was doing well until yesterday afternoon when he coughed hard and noted pain in his stoma site area did a CT scan of the abdomen pelvis was obtained to rule out parastomal hernia. This demonstrated no parastomal hernia. There was noted to be a scant amount of air intraperitoneally and some small bowel distention again. I feel this is postsurgical changes from his second procedure lysis of adhesions. Again post op ileus picture - improving clinical exam. tolerating full liquids will advance diet as tolerated and restart calorie counts. he vomited again on solid food. He seems to be tolerating liquids. At this point, I question whether the same radiation process that is contributed to his rectal issues and stage IV decubitus has more distal small bowel radiation changes than I anticipated. we will maintain him on liquids. We will try Reglan to see if t his improves his symptoms. If he still having challenging issues would try to minimize his distention and then obtain a small bowel series to see if I can truly delineate radiation changes in the distal bowel or whether this is again an early postoperative small bowel obstruction. will order upper GI with Gastrografin to determine how quickly contrast makes it through system. Patient stating he is hungry again and wanting to eat. PICC line in place. likely multifactorial urinary retention - the patient was restarted on Flomax. He is voiding without difficulty Wound care/decubiti per wound nurse
--- NOTE | 2018-09-25 11:59 | PN.SURG_ITS ---
Subjective: no pain after Gastrografin upper GI, patient noted relatively rapid contrast into stoma bag following procedure, eating solid food without complaints except for some cramping and discomfort last night. - Physical Exam General: Alert, Oriented x3 Lungs: Clear to auscultation, Normal air movement Cardiovascular: Regular rate, Regular Rhythm Abdomen: Bowel Sounds Present, Soft, - - mildly distended, stool and air in stoma bag Vital Signs Temp Pulse Resp BP Pulse Ox 98.1 F 111 H 16 129/61 H 95 09/25/18 08:57 09/25/18 09:06 09/25/18 08:57 09/25/18 08:57 09/25/18 08:57 Oxygen Flow Rate (L/min) 3 Oxygen Delivery Method Room Air Weight: 63.5 kg Body Mass Index (BMI) 21.9 Intake and Output for Last 24 Hours 07//28 09//19 09/25/18 23:59 23:59 23:59 Intake Total 2275 / 2275 1596 / 1596 Output Total 1150 / 1700 550 / 1350 1900 / 1900 Balance 1125 / 575 -550 / -785 -304 / -304 Medical Necessity - Tobacco Use Smoking Status: Former smoker Assessment/Plan All Active Problems Pneumonia (Acute) SBO (small bowel obstruction) (Acute) Hypotension (Acute) Hyponatremia (Acute) POD # 21 s/p 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 There was no signs of closed loop obstruction or small bowel between sigmoid and wall and stoma creation site. There was no signs of intra- abdominal abscesses. There was no edema of the bowel leading up to the stoma. It was recommended to try repeating CAT scan with oral contrast. Patient had low-grade fever yesterday. Urinalysis was unremarkable. Chest x- ray demonstrated mild atelectasis.-CT scan demonstrated small left lower lobe infiltrate versus chronic scarring. endoscopy through stoma today demonstrated healthy appearing viable colon to the fascial margin. [place], viable colon above the fascia in the subcutaneous area with edema and pink bowel just below the skin surface where the edge of the mucosa appears dusky. My impression is the stoma is viable right up to the visualized portion. That is likely due to this being an end stoma and tension to stretch the colon edge to the skin edge. I anticipate this will slough superficially and heal but I am certain there is no significant ischemia of the stoma just below the skin edge will follow electrolytes given history of hyponatremia. Appreciate assistance of hospitalist service given confusing clinical picture. Repeat CT scan of the abdomen and pelvis with oral contrast -still suggested partial SBO with transition point in left pelvis but there is less small bowel distention. The transition point does not seem to be in the same location as the previous CAT scan and there is contrast in the colon-cecum ascending colon and transverse colon with minimal contrast still in the small bowel. This is below the stoma site and actually along the margin on the lower sigmoid colon. No prior abdominal surgery. Patient did have 4-5 day post colonoscopy ileus 2 years prior. patient requested NG tube to be removed. This was removed. He tolerated NG tube removal initially but then vomited. abdominal multiview demonstrated again significant distended loops of small bowel with distended air-filled colon. TPN was started Laparoscopic exploration demonstrated single adhesion of small bowel to Raudel's pouch was performed Monday morning. This was released. the patient was doing well until yesterday afternoon when he coughed hard and noted pain in his stoma site area did a CT scan of the abdomen pelvis was obtained to rule out parastomal hernia. This demonstrated no parastomal hernia. There was noted to be a scant amount of air intraperitoneally and some small bowel distention again. I feel this is postsurgical changes from his second procedure lysis of adhesions. Again post op ileus picture - improving clinical exam. tolerating full liquids will advance diet as tolerated and restart calorie counts. he vomited again on solid food. He seems to be tolerating liquids. At this point, I question whether the same radiation process that is contributed to his rectal issues and stage IV decubitus has more distal small bowel radiation changes than I anticipated. we will maintain him on liquids. We will try Reglan to see if this improves his symptoms. If he still having challenging issues would try to minimize his distention and then obtain a small bowel series to see if I can truly delineate radiation changes in the distal bowel or whether this is again an early postoperative small bowel obstruction. upper GI with Gastrografin to demonstrates what appears to be distended loops of small bowel distally. However, the patient noted contrast through the stoma rather quickly and noted no crampy discomfort with the Gastrografin. The patient has been hungry and eating. In fact, per nursing staff the patient has been ordering double meals for breakfast and lunch and dinner and is generally tolerating this well. PICC line in place - we will DC prior to discharge to his ECF. likely multifactorial urinary retention - the patient was restarted on Flomax. He is voiding without difficulty Wound care/decubiti per wound nurse. current plan is for patient to return to his extended care facility. I understand we are working on certification.
[2018-09-25] MEDS: Morphine 2 MG/ML Syringe IV (13:47)
[2018-09-25 13:59] VITALS: BP 116/71; PULSE 99; RESP 16; TEMP 36.8; O2SAT 96
[2018-09-25] MEDS: Tamsulosin HCl 0.4 MG Capsule PO (17:59)
[2018-09-25 21:21] VITALS: BP 116/64; PULSE 104; RESP 18; TEMP 37.2; O2SAT 94
[2018-09-25] MEDS: oxyCODONE 5 MG Tablet PO (21:27)
[2018-09-25] MEDS: Doxazosin 1 MG Tablet 2 MG PO (21:28)
[2018-09-25 21:29] VITALS: BP 116/64; PULSE 104
[2018-09-26] MEDS: Morphine 2 MG/ML Syringe IV (02:54)
[2018-09-26 02:57] VITALS: BP 112/68; PULSE 98; RESP 17; TEMP 36.8; O2SAT 94
[2018-09-26] MEDS: Metoclopramide 10 MG/2 ML Vial IV ×2 (05:43→11:30)
--- NOTE | 2018-09-26 08:03 | PCM.PN.HOSP ---
Subjective: Doing well, no issues overnight. States that he is back to his normal baseline. Vitals/I&O's: Vital Signs Temp Pulse Resp BP Pulse Ox 98.3 F 98 17 112/68 94 09/26/18 02:57 09/26/18 02:57 09/26/18 02:57 09/26/18 02:57 09/26/18 02:57 Oxygen Flow Rate (L/min) 3 Oxygen Delivery Method Room Air Weight: 139 lb 15.896 oz Body Mass Index (BMI) 21.9 Intake and Output for Last 24 Hours 09/24/18 09/25/18 09/26/18 23:59 23:59 23:59 Intake Total 2283 / 2599 813.8 / 813.8 Output Total 550 / 1350 1900 / 2700 1300 / 1300 Balance -550 / -785 383 / -101 -486.2 / -486.2 General: Alert, Oriented x3, Cooperative, No apparent distress HEENT: Atraumatic, EOMI, Normocephalic Oral: Moist Mucosa Neck: Supple, No JVD Lungs: Clear to auscultation, Normal air movement, No rhonchi, No wheeze, No rales, Diminished Cardiovascular: Regular rate, Regular Rhythm, Normal S1, Normal S2, No murmurs Abdomen: Soft, Non Tender, Non-Distended, No Hepato-splenomegaly, - - Ostomy left lower quadrant, pink Extremities: No edema, Capillary Refill Less than 3 Seconds Skin: Incision - Clean dry and intact Neurological: Neuro grossly intact, Sensory exam intact to light touch and pain Psych/Mental Status: Normal Affect, Appropriate Current Medications Doxazosin Mesylate (Cardura) 2 mg PO QHS [facility] Last Admin: 09/25/18 21:28 Dose: 2 mg Documented by: Enoxaparin Sodium (Lovenox) 40 mg SC DAILY [facility] Last Admin: 09/25/18 09:05 Dose: 40 mg Documented by: Fluticasone Propionate (Flonase Nasal [place]) 2 spray NASAL DAILY [facility] Last Admin: 09/25/18 09:04 Dose: 2 spray Documented by: Heparin Sodium (Beef Lung) () 50 units IV UD PRN PRN Reason: HEPARIN FLUSH Hydralazine HCl (Apresoline Iv) 10 mg IV Q4H PRN PRN PRN Reason: Sys>160, cortes>85 Last Admin: 09/11/18 20:35 Dose: 10 mg Documented by: Ibuprofen (Motrin) 400 mg PO Q4H PRN PRN PRN Reason: MILD PAIN (1-3/10) Last Admin: 09/20/18 14:32 Dose: 400 mg Documented by: Ipratropium [place] (Atrovent) 0.5 mg INHALATION Q4H.RT PRN PRN Reason: SOB/WHEEZING Metoclopramide HCl (Reglan) 10 mg IV Q6 [facility] Last Admin: 09/26/18 05:43 Dose: 10 mg Documented by: Metoprolol Tartrate (Lopressor (Beta Joo)) 25 mg PO BID [facility] Last Admin: 09/25/18 21:29 Dose: 25 mg Documented by: Morphine Sulfate () 1 - 3 mg IV Q3H PRN PRN PRN Reason: SEVERE PAIN (6-10/10) Last Admin: 09/26/18 02:54 Dose: 2 mg Documented by: Oxycodone HCl (Oxyir) 5 mg PO Q4H PRN PRN PRN Reason: SEVERE PAIN (6-10/10) Last Admin: 09/25/18 21:27 Dose: 5 mg Documented by: Pantoprazole Sodium (Protonix) 40 mg PO DAILY [facility] Last Admin: 09/25/18 09:05 Dose: 40 mg Documented by: Prochlorperazine Edisylate (Compazine Iv) 5 mg IV Q4H PRN PRN PRN Reason: NAUSEA/VOMITING Last Admin: 09/21/18 00:51 Dose: 5 mg Documented by: Sodium Chloride () 5 - 15 ml IV UD PRN PRN Reason: SALINE FLUSH Last Admin: 09/23/18 16:10 Dose: 10 ml Documented by: Sodium Chloride () 10 - 40 ml IV UD PRN PRN Reason: PICC FLUSH Last Admin: 09/21/18 06:06 Dose: 40 ml Documented by: Tamsulosin HCl (Flomax) 0.4 mg PO DAILY@1730 [facility] Last Admin: 09/25/18 17:59 Dose: 0.4 mg Documented by: Medical Necessity - Tobacco Use Smoking Status: Former smoker Assessment/Plan All Active Problems Pneumonia (Acute) SBO (small bowel obstruction) (Acute) Hypotension (Acute) Hyponatremia (Acute) 1. SBO/possible ileus status post sigmoid colostomy for a nonhealing stage IV decubitus ulcer -He has had this stage IV decubitus ulcer on his buttock for almost 2 years -States he has a history of spinal stenosis and degenerative disc disease and has over time lost feeling in his legs which is led to multiple falls -He fell over his walker and broke his leg which necessitated him being in a group home which is where he ended up developing as decubitus ulcer -He presented for a planned diverting colostomy to help this heal and has had an ileus/possible small bowel obstruction ever since -States that he has been eating and drinking well over the weekend -Proceed with upper GI evaluation per general surgery, if normal would plan on advancing diet -At the moment everything is medically stable for discharge, please call if anything else arises 2. HTN/HLD -Stable -Continue with his home Norvasc, aspirin, Zetia, metoprolol 3. Anxiety/depression -Stable -Continue with Wellbutrin, BuSpar, Lexapro 4. Spinal stenosis and degenerative disc disease -Continue with Zanaflex as needed -We will continue with oxycodone as needed as well for both his back pain and his postop surgical pain 5. Chronic iron deficiency anemia -He is on iron at home -We will continue here 6. GERD -Stable -Continue with Protonix DVT: Lovenox Code Visit Inpatient E&M: 04628 Subs Hosp L2
[2018-09-26 08:06] VITALS: BP 118/67; PULSE 105; RESP 16; TEMP 37; O2SAT 94
[2018-09-26 08:08] VITALS: PULSE 100
--- NOTE | 2018-09-26 09:36 | CASEMGMT ---
Addendum entered by Caroline Og 09/26/18 11:15: SHAHANA placed a call to [facility], pre-cert is still pending. SHAHANA asked if Gopal Moser will reach out to [facility]. [facility] business office is currently in a meeting but they are always fast to getting to staff once pre-cert is obtained. SHAHANA encouraged Gopal Moser to reach out to [facility] again as pt is ready for discharge. Original Note: Social Work Note SHAHANA faxed updated clinicals to [facility]. Plan: Gopal Moser pending pre-cert Caroline Og TAX EXPERT, CARE NAVIGATOR
[2018-09-26] MEDS: Enoxaparin 40 MG/0.4 ML Syringe SC (10:18)
[2018-09-26 10:19] VITALS: PULSE 110
[2018-09-26] MEDS: Metoprolol Tartrate 25 MG Tablet PO (10:19)
[2018-09-26] MEDS: Pantoprazole Sodium 40 MG Tablet PO (10:19)
[2018-09-26] MEDS: Fluticasone 0.05% 1 SPRAY NASAL.SRY 2 SPRAY NASAL (10:20)
--- NOTE | 2018-09-26 11:21 | PCM.TXEXTCAR ---
- Diet 09/24/18 12:40 Diet: Regular Diet Is pt able to select menu?: Yes Diet Comments: to be advanced from full liquid - Routine Orders/Code Status Code Status: Full Code - Wound(s) right elbow Wound Type: scabbed over wound (pt states is from bursitis) Dressing Change: AntiMicrobial (Aquacel AG, etc) coccyx Wound Type: Pressure Injury right buttock Wound Type: Pressure Injury Dressing Change: Wet to Dry Dressing abd Wound Type: Surgical Incision - Therapies Weight Bearing: Weight bearing as tolerated Physical Therapy: Eval and Treat Occupational Therapy: Eval and Treat - Allergies/Procedures Done in Hospital Allergies/Adverse Reactions: Allergies chlorthalidone Allergy (Verified 08/22/18 08:21) Other famotidine Allergy (Verified 08/22/18 10:09) Unknown povidone-iodine [From Betadine] Allergy (Verified 08/22/18 08:21) Hives soap Adverse Reaction (Verified 08/22/18 08:21) Hives Rwjwkcw-Fup-Qih Reductase Inhibitor Adverse Reaction (Verified 08/22/18 08:21) MESSED MY LIVER UP adhesive tape Allergy (Uncoded 08/22/18 08:21) Itching/rash - Type of Care/Length of Stay Estimated LOS: More Than 30 Days Type of Care Needed: Skilled Rehab Potential: Fair Prognosis: Fair - Additional Orders/Day of Discharge H&P will serve as current which was dated: 09/10/18 Day of Discharge: 09/26/18 - Dietary and Speech Recommendations Dietitian Recommendations/Changes: Rec DANICA to transitional diet/low fat. Would recommend weaning TPN- 1L 5%AA/20% dextrose daily w/ 250 20% lipids every other day until pt consistently tolerates PO diet. Please check DAILY wts. Rec Chuy BID to help w/ skin healing. Will provide milk w/ meals and magic cup BID when diet advanced for additional calories/protein if consumed instead of ensure products d/t pt refusals. - Follow Up Care Primary Care Physician: Winnie Gonzales MD [Primary Care Provider] - Please Follow Up With: Nicholas Nunez MD When: 2 weeks
[2018-09-26] MEDS: 0.9% NaCl Peripheral Flush Adult/Peds IV ×2 (11:30→11:36)
--- NOTE | 2018-09-26 13:06 | PCM.DC.SUM ---
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) Anal cancer (Chronic) Hepatitis C carrier (Chronic) COPD (chronic obstructive pulmonary disease) (Chronic) Anxiety and depression (Chronic) HTN (hypertension) (Chronic) HLD (hyperlipidemia) (Chronic) GERD (gastroesophageal reflux disease) (Chronic) PAD (peripheral artery disease) (Chronic) Hospital Course and Treatment Consultations 09/03/18 08:57 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 ? The patient has a past history of anal cancer in 2002. ?This was treated by radiation and chemotherapy. ?The patient noted some issues with fecal incontinence following that successful treatment. ?He has found in the past that if he is able to maintain a bowel regime with fiber and Imodium he can maintain continence. ? In December,, the patient developed an abscess along the rightichial?region there was felt to be complicated by radiation injury to the pelvic area. ?Incision and drainage was performed and the patient was referred to plastic surgery. ?He has since had multiple procedures multiple debridements in an attempt to manage the area. ?Most recently, he underwent a flap repair which is also failed. ? Recent CT scan demonstrates a large defect in the right area with defect extending pretty much to the margin of the anal rectal area and deep involving the initial bone. ? The patient notes prior to this episode he was having increasing difficulty maintaining his continence but since this decubitus ulcer has commenced, he's been on multiple antibiotics. ?He has frequent bowel movements on good days 5 or so and often has incontinence causing soiling into the wound. ?He is referred for colostomy construction prior to attempted his next decubitus surgical procedure ? I performed upper and lower endoscopy on October 18, 2016. 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 ?Colonoscopy was unremarkable with the exception was felt to be radiation changes in the lower rectum. ?Upper endoscopy demonstrated a small hiatal hernia and mild gastritis. ? The patient had a previous left-sided hip and knee replacement. ?He has since had issues related to dislocation of his hip prosthesis. ?With all his current medical issues he is generally bedbound. ?He presents today transported via stretcher from his extended care facility. He was scheduled for surgical procedure on August 29. when he presented his sodium was I believe 126 from the extended care facility the day before. His surgical procedure was postponed. He was seen by the hospitalist service. His Maxide was held and he was given sodium chloride. His sodium improved and he was returned back to his extended care facility. He returns today and his preoperative sodium is again 128. I spoke with Dr. Caballero and we agreed to again postpone his surgery until tomorrow. the patient was admitted on September 03 and correction of electrolytes again. He was taken to the operative suite on September 04, 2018 and underwent an end sigmoid colostomy with Mitchell's pouch. Postoperatively the patient had intermittent ileus/obstructive picture tolerating and then failing to tolerate an oral diet. He is returned to the operative suite on September 16, 2015. he underwent a diagnostic laparoscopy - was found to have one area of small bowel adhesed against the rectal stump which was released. The length of adhesion was approximately 3 cm. There was felt to be a transition at that point without any other obstructive or adhesive areas noted. 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 Postoperatively again, the patient had prolonged return to bowel function with intermittent episodes of abdominal distention and vomiting. The patient was able to finally tolerate a general diet without significant distention and nausea and having adequate stomal output. He will be discharged to his extended care facility for continued care for his decubitus with plans for repeat surgical procedure for his stage IV decubitus likely another attempted flap placement in the coming weeks. - Physical Exam General: Alert, Oriented x3, Cooperative Lungs: Clear to auscultation, Normal air movement Cardiovascular: Regular rate, No murmurs Abdomen: Bowel Sounds Present, Soft, Non Tender, - - stoma with stool and gas and stoma bag Vital Signs Temp Pulse Resp BP Pulse Ox 98.6 F 110 H 16 118/67 94 09/26/18 08:06 09/26/18 10:19 09/26/18 08:06 09/26/18 08:06 09/26/18 08:06 Oxygen Flow Rate (L/min) 3 Oxygen Delivery Method Room Air Weight: 63.5 kg Body Mass Index (BMI) 21.9 Intake and Output for Last 24 Hours 09/24/18 09/25/18 09/26/18 23:59 23:59 23:59 Intake Total 2283 / 2599 813.8 / 813.8 Output Total 550 / 1350 1900 / 2700 1300 / 1300 Balance -550 / -785 383 / -101 -486.2 / -486.2 Discharge Diet: No Restrictions Discharge Activity: Return to Normal Activity, May Shower Call your doctor if your incision/area has: Continuous Slow Oozing, Sudden Increased Bleeding, Increased Pain/ Swelling, Increased Redness, Foul Smelling Discharge, Swelling at the incision site Cleanse incision/area with: Soap & Water Home Medications: Medications to take at Discharge RX: Aspirin [Aspirin, Baby] 81 mg PO DAILY@0800 03/22/16 RX: Escitalopram Oxalate [Lexapro] 10 mg PO DAILY 03/22/16 RX: Ezetimibe [Zetia] 10 mg PO DAILY 03/22/16 RX: Fluticasone 0.05% [Flonase Nasal Palms] 2 spray NASAL DAILY 03/22/16 RX: Multivitamin [Multiple Vitamins] 1 each PO DAILY 03/22/16 RX: buPROPion XL [Wellbutrin Xl] 300 mg PO DAILY 03/22/16 RX: busPIRone [Buspar] 5 mg PO TID 03/22/16 RX: Tiotropium Harwood [Spiriva Respimat] 2 puff INHALATION DAILY 10/20/16 RX: Cholecalciferol (Vitamin D3) [Vitamin D3] 1,000 unit PO DAILY 12/09/16 RX: Tizanidine HCl [Zanaflex] 4 mg PO Q8H PRN PRN 12/27/16 RX: Gabapentin [Neurontin] 600 mg PO TID 01/19/18 RX: Metoprolol Tartrate [Lopressor (beta curt)] 50 mg PO BID 01/19/18 RX: Pantoprazole Sodium [Protonix] 40 mg PO DAILY 03/19/18 RX: Testosterone [Androderm 2mg/24 hr] 1 each TD DAILY 03/19/18 RX: Lactobacillus Acidophilus [Acidophilus] 2 each PO TID 04/19/18 RX: Amlodipine [Norvasc] 5 mg PO DAILY 08/22/18 RX: Ascorbic Acid [Vitamin C] 500 mg PO DAILY@0800 08/22/18 RX: Ferrous Gluconate 324 mg PO BID 08/22/18 RX: Zinc Sulfate 220 mg PO DAILY 08/22/18 RX: Argin/Glut/Cahmb/Collag/Mv-Min [Chuy Packet] 1 ea PO BID 09/03/18 RX: Doxazosin Mesylate [Cardura] 2 mg PO QHS tab 09/26/18 RX: Ibuprofen [Motrin] 400 mg PO Q4H PRN PRN tab 09/26/18 RX: Oxycodone HCl/Acetaminophen [Percocet 10-325 mg Tablet] 2 tab PO Q6H PRN PRN 4 Days #12 tab 09/26/18 Following Prescrptions Were Given to Patient: RX: Oxycodone HCl/Acetaminophen [Percocet 10-325 mg Tablet] 2 tab PO Q6H PRN PRN 4 Days #12 tab PRN Reason: Pain Prescription Printed Primary Care Physician: Winnie Gonzales MD [Primary Care Provider] - Please Follow Up With: Nicholas Nunez MD When: 2 weeks Disposition: Long-Term facility Medical Necessity - Tobacco Use Smoking Status: Former smoker Meaningful Use Info Meaningful Use Diagnoses (Choose all that apply): None applicable
--- NOTE | 2018-09-26 13:46 | CASEMGMT ---
Social Work Note SHAHANA received call from Karla at [facility] stating pre-cert has been obtained and pt is able to discharge today. Dr. Nunez notified. SHAHANA faxed discharge paperwork to [facility] including transfer to extended care facility, signed medication list and any scripts. Original in SNF folder and copy on pt's chart. HENS is not needed as pt is from skilled at [facility] and will be returning skilled. SHAHANA arranged transportation through [facility] via cot at 3:30pm. Transportation form completed and placed on SNF folder and copy on pt's chart. SHAHANA updated RN, pt and Karla at [facility] on transportation time. Plan: Pt to discharge to [facility] today skilled via cot with [facility] transporting at 3:30pm Caroline FELIX, RO[employer]
[2018-09-26 14:58] VITALS: BP 115/64; PULSE 97; RESP 18; TEMP 36.8; O2SAT 95
--- NOTE | 2018-09-26 15:08 | NURSING ---
pt was placed in recumbent position, lying flat. picc line removed, vaseline drg applied and 4 2 x2 and Tegaderm applied for picc lines uses. tol. tavares.
--- NOTE | 2018-09-26 15:49 | NURSING ---
REP0RT CALLED TO ROSLYN THE RECEIVING NURSE.
== END 2018-09-26 15:45 | disposition skilled nursing facility (03) | DRG 950 ==
LOC: ACINP 09:03 → MS3 12:09
PROVIDERS: Anesthesiology; Internal Medicine; Admitting Provider Surgery; Family Provider Internal Medicine; PCP Internal Medicine; Referring Provider Surgery; Visit Provider Family Medicine
PROC: 0D1E4Z4 Bypass Large Intestine to Cutaneous, Percutaneous Endoscopic Approach (ICD-10-PCS; CPT 44188; principal; 2018-09-04 10:10)
PROC: 0DJD8ZZ Inspection of Lower Intestinal Tract, Via Natural or Artificial Opening Endoscopic (ICD-10-PCS; CPT 45378; principal; 2018-09-09 07:00)
DX: L89.314 Pressure ulcer of right buttock, stage 4 (principal); R15.9 Full incontinence of feces; E22.2 Syndrome of inappropriate secretion of antidiuretic hormone; K56.51 Intestinal adhesions [bands], with partial obstruction; K56.7 Ileus, unspecified; M48.00 Spinal stenosis, site unspecified; D50.9 Iron deficiency anemia, unspecified; E78.5 Hyperlipidemia, unspecified; K52.0 Gastroenteritis and colitis due to radiation; Y84.2 Radiological procedure and radiotherapy as the cause of abnormal reaction of the patient, or of later complication, without mention of misadventure at the time of the procedure; E87.6 Hypokalemia; I73.9 Peripheral vascular disease, unspecified; R33.9 Retention of urine, unspecified; I10 Essential (primary) hypertension; B18.2 Chronic viral hepatitis C; F41.9 Anxiety disorder, unspecified; F32.9 Major depressive disorder, single episode, unspecified; K21.9 Gastro-esophageal reflux disease without esophagitis; Z92.21 Personal history of antineoplastic chemotherapy; Z85.048 Personal history of other malignant neoplasm of rectum, rectosigmoid junction, and anus; J44.9 Chronic obstructive pulmonary disease, unspecified; Z87.891 Personal history of nicotine dependence
CPT/HCPCS: 36415; 36569; 71045; 74018; 74019; 74176; 74246; 80048; 80053; 80076; 81002; 82962; 83036; 83735; 83930; 83935; 84100; 84134; 84300; 84478; 85014; 85018; 85025; 85027; 85610; 85730; 87040; 87077; 87086; 87088; 87186; 88304; 93005; 94640; 97110; 97163; 97166; 97530; 97535; 97802; 97803; J2997; J7030; J7040; J7120; A4216; J0744; J2405

== ENCOUNTER 2018-11-08 13:15 | Outpatient (RCR) | payer MEDICAID, SELFPAY ==
[2018-10-18 14:55] VITALS: BMI 27.9
[2018-10-18 15:15] VITALS: BP 128/61; PULSE 70; RESP 16; TEMP 36.2; BMI 27.9
--- NOTE | 2018-10-18 17:07 | PCM.WC.HP ---
(1) Right ischial pressure sore, stage 4 Status: Chronic Current Visit: Yes Code(s): L89.314 - Pressure ulcer of right buttock, stage 4 (2) Pressure injury of right buttock, stage 2 Status: Acute Current Visit: Yes Code(s): L89.312 - Pressure ulcer of right buttock, stage 2 (3) Anal cancer Status: Chronic Current Visit: No Code(s): C21.0 - Malignant neoplasm of anus, unspecified (4) Anxiety and depression Status: Chronic Current Visit: No Code(s): F41.8 - Other specified anxiety disorders (5) COPD (chronic obstructive pulmonary disease) Status: Chronic Current Visit: No Qualifiers: Code(s): J44.9 - Chronic obstructive pulmonary disease, unspecified (6) Debility Status: Chronic Current Visit: No Code(s): R53.81 - Other malaise (7) HTN (hypertension) Status: Chronic Current Visit: No Qualifiers: Code(s): I10 - Essential (primary) hypertension (8) PAD (peripheral artery disease) Status: Chronic Current Visit: No Code(s): I73.9 - Peripheral vascular disease, unspecified History of Present Illness Date of Service: 10/19/18 Chief Complaint: Nonhealing radiation pressure ulcer. History of Wound: Mr Rincon is a 63 yo very well known to the wound center and up to a couple of weeks ago, was following up with a surgeon at [facility] who recently performed a muscle flap for his chronic right buttock stage IV ulcer which failed. He also had sessions of HBO. No available report from [facility] is available at this time, however the patient reports that his surgeon instructed him that they will reattempt another muscle flap after the patient received a colostomy. He does note that a colostomy procedure was performed in September 2018. He has currently been residing in a group home facility where they have been utilizing wet-to-dry dressings to his stage IV ischial pressure injury and Santyl to his stage II right buttock pressure injury. He returns here for continued wound care. He denies any concerns at this time. It appears he has been having a wet-to-dry dressing at his nursing facility. He denies any significant discharge from the wound. The patient otherwise denies any fever, chills, nausea, vomiting, shortness of breath, chest pain or pressure, palpitations, orthopnea, lower extremity edema, syncope or presyncopal episodes. 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) Anal cancer (Chronic) Hepatitis C carrier (Chronic) COPD (chronic obstructive pulmonary disease) (Chronic) Anxiety and depression (Chronic) HTN (hypertension) (Chronic) HLD (hyperlipidemia) (Chronic) GERD (gastroesophageal reflux disease) (Chronic) PAD (peripheral artery disease) (Chronic) Surgical History: total hip arthroplasty - left, total knee arthroplasty, - - 12/30/16 Surgical preparation right gluteal/ischial area with excision radiation pressure sore abscess wound and partial ostectomy for osteomyelitis (52.5 cm2), 06/08/17 Excision radiation pressure sore abscess ulcer right ischial area, Stage IV, with partial ostectomy for osteomyelitis, 10/17/17 Excision radiation pressure sore abscess ulcer right ischial area, Stage IV, with partial ostectomy for osteomyelitis. Allergies/Adverse Reactions: Allergies chlorthalidone Allergy (Verified 08/22/18 08:21) Other famotidine Allergy (Verified 08/22/18 10:09) Unknown povidone-iodine [From Betadine] Allergy (Verified 08/22/18 08:21) Hives soap Adverse Reaction (Verified 08/22/18 08:21) Hives Gwnbjkj-Ppb-Nhy Reductase Inhibitor Adverse Reaction (Verified 08/22/18 08:21) MESSED MY LIVER UP adhesive tape Allergy (Uncoded 08/22/18 08:21) Itching/rash Home Medications: Ambulatory Orders Medication Instructions Recorded Aspirin [Aspirin, Baby] 81 mg PO DAILY@0800 03/22/16 Escitalopram Oxalate [Lexapro] 10 mg PO DAILY 03/22/16 Fluticasone 0.05% [Flonase Nasal 2 spray NASAL DAILY 03/22/16 Brandon] Multivitamin [Multiple Vitamins] 1 each PO DAILY 03/22/16 buPROPion XL [Wellbutrin Xl] 300 mg PO DAILY 03/22/16 busPIRone [Buspar] 5 mg PO TID 03/22/16 Tiotropium Dunmor [Spiriva 2 puff INHALATION DAILY 10/20/16 Respimat] Tizanidine HCl [Zanaflex] 4 mg PO Q8H PRN PRN 12/27/16 Gabapentin [Neurontin] 600 mg PO TID 01/19/18 Metoprolol Tartrate [Lopressor 50 mg PO BID 01/19/18 (beta curt)] Pantoprazole Sodium [Protonix] 40 mg PO DAILY 03/19/18 Testosterone [Androderm 2mg/24 hr] 1 each TD DAILY 03/19/18 Amlodipine [Norvasc] 5 mg PO DAILY 08/22/18 Ascorbic Acid [Vitamin C] 500 mg PO DAILY@0800 08/22/18 Ferrous Gluconate 324 mg PO BID 08/22/18 Zinc Sulfate 220 mg PO DAILY 08/22/18 Doxazosin Mesylate [Cardura] 2 mg PO QHS tab 09/26/18 Ibuprofen [Motrin] 400 mg PO Q4H PRN PRN tab 09/26/18 Oxycodone HCl/Acetaminophen 2 tab PO Q6H PRN PRN 4 Days #12 tab 09/26/18 [Percocet 10-325 mg Tablet] Argin/Glut/Cahmb/Collag/Mv-Min 1 pack BC DAILY 10/18/18 [Chuy Packet] Cholecalciferol (VIT D3) [Vitamin 1,000 unit PO DAILY 10/18/18 D] Ezetimibe [Zetia] 10 mg PO DAILY 10/18/18 Ondansetron HCl [Zofran] 4 mg PO Q8H PRN PRN 10/18/18 - Family History Maternal - - Denies any marked maternal or paternal family history including DM, HTN, HD. Paternal - - Denies any marked maternal or paternal family history including DM, HTN, HD. Smoking Status: Former smoker Review of Systems Constitutional: Denies: Chills, Fever, Weight Change Eyes: Denies: Pain, Vision Change HEENT: Denies: Difficulty Hearing, Difficulty Swallowing, Sinus Congestion Cardiovascular: Denies: Chest Pain, Palpitations Respiratory: Denies: Cough, Shortness of Breath Gastrointestinal: Denies: Diarrhea, Nausea, Vomiting Genitourinary: Denies: Dysuria, Hematuria Skin: Reports: Wounds - See HPI Endocrine: Denies: Heat/ Cold Intolerance, Polydipsia, Polyuria Hematologic/ Lymphatic: Denies: Easy Bruising, Easy Bleeding - Physical Exam Vital Signs Temp Pulse Resp BP 97.1 F L 70 16 128/61 H 10/18/18 15:15 10/18/18 15:15 10/18/18 15:15 10/18/18 15:15 General: Alert, Oriented x3, Cooperative, No apparent distress HEENT: Atraumatic Oral: Moist Mucosa Lungs: Clear to auscultation, Normal air movement Cardiovascular: Regular rate, Regular Rhythm Abdomen: Soft, Non Tender, - - Colostomy bag present left lower quadrant Extremities: No clubbing, No cyanosis, No edema, Peripheral Pulses Normal Skin: Ulcer/ Wound - Stage II pressure injury to right upper buttock with adherent slough, no signs of infection at this time, stage IV pressure ulcer to right issue him with adherent slough, musculature exposed, no bone exposed at this time, no obvious signs of infection no purulent discharge or foul odor at this time Wound Measurements and Assessment WC - Nurse 1 - General Ulcer Measurement Start: 10/18/18 15:15 Freq: Status: Active Protocol: Activity Type Activity Date Activity User E-Sign Co-Sign Detail Recorded Client Recorded Date Recorded By Document 10/18/18 15:15 MO [id number] 10/18/18 15:26 MO 10/18/18 15:15 Wound Center Nurse 1 [Ulcer Assessment] #7 Right Ischium -Current Size (cm) - Length 5.5 -Current Size (cm) - Width 2.5 -Current Size (cm) - Depth 1.4 -Total Square Cm 13.75 -Date of Last Picture (Recall this 10/18/18 field) -Photo Taken Yes -Exudate Amt Medium -Exudate Type Serosanguineous -Wound Margin Thickened & Rolled Under -Granulation Amt Large (67-100%) -Granulation Quality Pale,Young Harris -Necrosis Amt Small (1-33%) -Necrotic Tissue Type Adherent Slough -Texture (Nathalie-wound Skin Appearance) Assessed -Moisture (Nathalie-wound Skin Appearance Assessed, ) Maceration -Color (Nathalie-wound Skin Appearance) Assessed -Temperature (Nathalie-wound Skin No Abnormality Appearance) (Pt Warm) -Tenderness on Palpation (Nathalie-wound No Skin Appearance) -Ulcer Cleansing Rinsed/ Irrigated with Saline -Foul Odor after Cleansing No -Anesthetic Used 4% Lidocaine Solution #6 R upper Sacrum -Current Size (cm) - Length 0.5 -Current Size (cm) - Width 0.9 -Current Size (cm) - Depth 0.1 -Total Square Cm 0.45 -Date of Last Picture (Recall this 10/18/18 field) -Photo Taken Yes -Exudate Amt None Present -Exudate Type Serous -Wound Margin Flat & Intact -Granulation Amt Small (1-33%) -Granulation Quality Pale,Young Harris -Slough/Fibrin Yes -Necrosis Amt Large (67-100%) -Necrotic Tissue Type Adherent Slough -Texture (Nathalie-wound Skin Appearance) Assessed, Scarring -Moisture (Nathalie-wound Skin Appearance Assessed ) -Color (Nathalie-wound Skin Appearance) Assessed -Temperature (Nathalie-wound Skin No Abnormality Appearance) (Pt Warm) -Tenderness on Palpation (Nathalie-wound No Skin Appearance) -Ulcer Cleansing Rinsed/ Irrigated with Saline -Foul Odor after Cleansing No -Anesthetic Used 4% Lidocaine Solution [Edema Assessment] -Lower Limb Edema Present NA WC - Nurse 2 - General Ulcer CM Notes Start: 10/18/18 15:15 Freq: Status: Active Protocol: Activity Type Activity Date Activity User E-Sign Co-Sign Detail Recorded Client Recorded Date Recorded By Document 10/18/18 16:39 AN [id number] 10/18/18 16:40 AN 10/18/18 16:39 Wound Center Nurse 2 [Procedure/Treatment] #7 Right Ischium -Time 16:39 -Correct Patient Yes -Correct Side, Site, Position Yes -Correct Procedure Yes -Procedure Performed Yes -Type of Procedure Debridement -Clinical Debridement Subcutaneous -Post Debridement Size (cm) - Length 6 -Post Debridement Size (cm) - Width 3.5 -Post Debridement Size (cm) - Depth 2.9 -Total Square Cm 21.0 -Wound/Ulcer Outcome Not Healed -Ulcer Cleansing Rinsed/ Irrigated with Saline -Bleeding Controlled with Pressure -Offloading Yes -Treatment Response Procedure Tolerated Well #6 R upper Sacrum -Time 16:40 -Correct Patient Yes -Correct Side, Site, Position Yes -Correct Procedure Yes -Procedure Performed Yes -Type of Procedure Debridement -Clinical Debridement Subcutaneous -Post Debridement Size (cm) - Length 1.0 -Post Debridement Size (cm) - Width 0.5 -Post Debridement Size (cm) - Depth 0.1 -Total Square Cm 0.50 -Wound/Ulcer Outcome Not Healed -Ulcer Cleansing Rinsed/ Irrigated with Saline -Foul Odor after Cleansing No -Bleeding Controlled with Pressure -Offloading Yes -Treatment Response Procedure Tolerated Well [See Physician Procedure note for Specifics] Pain Scale: 0-10 Numeric [Pain] -Is Patient Pain Free? Yes Musculoskeletal: Muscle Wasting - To bilateral lower extremities as patient is nonambulatory and spends most of the time in bed Neurological: Neuro grossly intact Psych/Mental Status: Normal Affect, Appropriate, Alert and oriented to time, place, person, mood and affect Debridement Note Post-Debridement Measurements/Treatment WC - Nurse 2 - General Ulcer CM Notes Start: 10/18/18 15:15 Freq: Status: Active Protocol: Activity Type Activity Date Activity User E-Sign Co-Sign Detail Recorded Client Recorded Date Recorded By Document 10/18/18 16:39 AN [id number] 10/18/18 16:40 AN 10/18/18 16:39 Wound Center Nurse 2 #7 Right Ischium -Time 16:39 -Correct Patient Yes -Correct Side, Site, Position Yes -Correct Procedure Yes -Procedure Performed Yes -Type of Procedure Debridement -Clinical Debridement Subcutaneous -Post Debridement Size (cm) - Length 6 -Post Debridement Size (cm) - Width 3.5 -Post Debridement Size (cm) - Depth 2.9 -Total Square Cm 21.0 -Wound/Ulcer Outcome Not Healed -Ulcer Cleansing Rinsed/ Irrigated with Saline -Bleeding Controlled with Pressure -Offloading Yes -Treatment Response Procedure Tolerated Well #6 R upper Sacrum -Time 16:40 -Correct Patient Yes -Correct Side, Site, Position Yes -Correct Procedure Yes -Procedure Performed Yes -Type of Procedure Debridement -Clinical Debridement Subcutaneous -Post Debridement Size (cm) - Length 1.0 -Post Debridement Size (cm) - Width 0.5 -Post Debridement Size (cm) - Depth 0.1 -Total Square Cm 0.50 -Wound/Ulcer Outcome Not Healed -Ulcer Cleansing Rinsed/ Irrigated with Saline -Foul Odor after Cleansing No -Bleeding Controlled with Pressure -Offloading Yes -Treatment Response Procedure Tolerated Well Pain Scale: 0-10 Numeric Is Patient Pain Free? Yes Wound debrided: Right ischial pressure injury stage IV Type of Debridement: Excisional debridement Anesthesia Used: 5% Lidocaine Gel Depth: to muscle Percentage of wound debrided: 100 Instrument Used: 7mm curette Tissue Removed: Slough and devitalized tissue Severity: Fat Layer Exposed Amount of bleeding with debridement: Mild Bleeding Controlled with: Pressure Patient tolerated procedure well - Additional Wound Wound debrided: Stage II pressure injury right buttock Laterality: Right Type of Debridement: Excisional debridement Anesthesia Used: 5% Lidocaine Gel Depth: in the subcutaneous layer Percentage of wound debrided: 100 Instrument Used: 5mm curette Tissue Removed: Slough and devitalized tissue Severity: Fat Layer Exposed Amount of bleeding with debridement: Mild Bleeding Controlled with: Pressure Patient tolerated procedure: Patient tolerated procedure well Assessment/Plan Active Problems Pressure injury of right buttock, stage 2 (Acute) Right ischial pressure sore, stage 4 (Chronic) Assessment: Nonhealing right ischium pressure ulcer, stage IV. Stage II pressure ulcer right buttock Plan: The patient was seen and examined at the wound center today and was updated on the plan of care. A muscular debridement was performed today. The patient tolerated the procedure well. The patients wound care will consist of: Applying Aquacel silver to all wounds. Wound cultures were held at this time due to wounds appearing noninfected. Baseline bloodwork viewed from September 2018 and demonstrated a low prealbumin. Patient was advised to increase his supplemental protein intake to 3-4 drinks per day. Given the delayed wound healing and the fact that his wound care has actually been going on now for approximately 2 years per patient report, will apply for the use of an advanced skin substitute. Patient educated on the importance of diet on wound healing and instructed to increase protein and vitamin C intake. Patient verbalized understanding. Patient will follow up at wound healing center in one week or sooner if needed. Advised again on the importance of offloading and position changes at least every 2 hours. This message was relayed to the nursing facility as well. Will also request records from [facility] for continuity of care. This note was generated with Pheedoation software. It may contain incorrect words, spelling, and punctuation that were not noted in checking the note before signing. Code Visit Office Visits / Consults: [id number] OV L4 Est [id number]: [id number] Sue musc/fascia 20 sq cm/< Add On Codes: 18586 Sue musc/fascia add-on
[2018-10-25 16:12] VITALS: BP 123/60; PULSE 87; RESP 18; TEMP 36.8; BMI 27.9
--- NOTE | 2018-10-25 16:18 | WC ---
LEFT POSTERIOR UPPER THIGH/ BUTTOCK REDDNESS AND WARMTH NOTED TO HARDENED AREA NO DRAINAGE NOTED
--- NOTE | 2018-10-25 17:40 | PCM.WC.PN ---
(1) Right ischial pressure sore, stage 4 Status: Chronic Current Visit: Yes Code(s): L89.314 - Pressure ulcer of right buttock, stage 4 (2) Pressure injury of right buttock, stage 2 Status: Acute Current Visit: Yes Code(s): L89.312 - Pressure ulcer of right buttock, stage 2 (3) Anal cancer Status: Chronic Current Visit: No Code(s): C21.0 - Malignant neoplasm of anus, unspecified (4) Anxiety and depression Status: Chronic Current Visit: No Code(s): F41.8 - Other specified anxiety disorders (5) COPD (chronic obstructive pulmonary disease) Status: Chronic Current Visit: No Qualifiers: Code(s): J44.9 - Chronic obstructive pulmonary disease, unspecified (6) Debility Status: Chronic Current Visit: No Code(s): R53.81 - Other malaise (7) HTN (hypertension) Status: Chronic Current Visit: No Qualifiers: Code(s): I10 - Essential (primary) hypertension (8) PAD (peripheral artery disease) Status: Chronic Current Visit: No Code(s): I73.9 - Peripheral vascular disease, unspecified Type of Wound Date of Service: 10/25/18 Chief Complaint: Nonhealing radiation pressure ulcer. History of Wound: Mr Rincon is a 63 yo very well known to the wound center and up to a couple of weeks ago, was following up with a surgeon at [facility] who recently performed a muscle flap for his chronic right buttock stage IV ulcer which failed. He also had sessions of HBO. No available report from [facility] is available at this time, however the patient reports that his surgeon instructed him that they will reattempt another muscle flap after the patient received a colostomy. He does note that a colostomy procedure was performed in September 2018. He has currently been residing in a snf facility where they have been utilizing wet-to-dry dressings to his stage IV ischial pressure injury and Santyl to his stage II right buttock pressure injury. He returns here for continued wound care. He denies any concerns at this time. It appears he has been having a wet-to-dry dressing at his nursing facility. He denies any significant discharge from the wound. The patient otherwise denies any fever, chills, nausea, vomiting, shortness of breath, chest pain or pressure, palpitations, orthopnea, lower extremity edema, syncope or presyncopal episodes. Progress of Wound: Wounds are stable, he does have a new boil to his left posterior thigh that is causing him discomfort and is noted to have some induration and redness noted around the site. Otherwise no signs of infection at this time to all other wounds. Doing well with current treatment plan. - Physical Exam Vital Signs Temp Pulse Resp BP 98.2 F 87 18 123/60 H 10/25/18 16:12 10/25/18 16:12 10/25/18 16:12 10/25/18 16:12 General: Alert, Oriented x3, Cooperative, No apparent distress HEENT: Atraumatic Oral: Moist Mucosa Lungs: Clear to auscultation Cardiovascular: Regular rate Abdomen: - - Left lower quadrant colostomy Skin: Ulcer/ Wound - Ulceration to right ischium with adherent slough, ulceration to right buttock with adherent slough, boil present to left posterior thigh, some induration noted and surrounding erythema. Wound Measurements and Assessment WC - Nurse 1 - General Ulcer Measurement Start: 10/18/18 15:15 Freq: Status: Active Protocol: Activity Type Activity Date Activity User E-Sign Co-Sign Detail Recorded Client Recorded Date Recorded By Document 10/25/18 16:12 RB [id number] 10/25/18 16:20 RB 10/25/18 16:12 Wound Center Nurse 1 [Ulcer Assessment] #7 Right Ischium -Combined with other wound No -Current Size (cm) - Length 5.5 -Current Size (cm) - Width 2.3 -Current Size (cm) - Depth 2 -Total Square Cm 12.65 -Circular Undermining No -Exudate Amt Medium -Exudate Type Serosanguineous -Wound Margin Thickened -Granulation Amt Large (67-100%) -Granulation Quality [place] -Slough/Fibrin Yes -Necrosis Amt Medium (34-66%) -Necrotic Tissue Type Adherent Slough -Structure Exposed N/A -Texture (Nathalie-wound Skin Appearance) Scarring -Moisture (Nathalie-wound Skin Appearance Assessed ) -Color (Nathalie-wound Skin Appearance) Assessed -Temperature (Nathalie-wound Skin No Abnormality Appearance) (Pt Warm) -Tenderness on Palpation (Nathalie-wound No Skin Appearance) -Ulcer Cleansing Wound Cleanser -Foul Odor after Cleansing No -Anesthetic Used 5% Lidocaine Gel #6 R upper Sacrum -Combined with other wound No -Current Size (cm) - Length 0.9 -Current Size (cm) - Width 0.3 -Current Size (cm) - Depth 0.1 -Total Square Cm 0.27 -Tunneling No -Undermining/Tunneling No -Circular Undermining No -Exudate Amt Small -Exudate Type Serosanguineous -Wound Margin Distinct, Outline Attached -Granulation Amt Medium (34-66%) -Granulation Quality [place] -Slough/Fibrin Yes -Necrosis Amt Small (1-33%) -Necrotic Tissue Type Adherent Slough -Structure Exposed N/A -Texture (Nathalie-wound Skin Appearance) Scarring -Moisture (Nathalie-wound Skin Appearance Assessed ) -Color (Nathalie-wound Skin Appearance) Assessed -Temperature (Nathalie-wound Skin No Abnormality Appearance) (Pt Warm) -Tenderness on Palpation (Nathalie-wound No Skin Appearance) -Ulcer Cleansing Wound Cleanser -Foul Odor after Cleansing No -Anesthetic Used 5% Lidocaine Gel 10/25/18 16:18 Wound Center by Marina Rosenthal LEFT POSTERIOR UPPER THIGH/ BUTTOCK REDDNESS AND WARMTH NOTED TO HARDENED AREA NO DRAINAGE NOTED Initialized on 10/25/18 16:18 - END OF NOTE WC - Nurse 2 - General Ulcer CM Notes Start: 10/18/18 15:15 Freq: Status: Active Protocol: Activity Type Activity Date Activity User E-Sign Co-Sign Detail Recorded Client Recorded Date Recorded By Document 10/25/18 16:35 AN [id number] 10/25/18 16:40 AN 10/25/18 16:35 Wound Center Nurse 2 [Procedure/Treatment] #7 Right Ischium -Time 16:39 -Correct Patient Yes -Correct Side, Site, Position Yes -Correct Procedure Yes -Procedure Performed Yes -Type of Procedure Debridement -Clinical Debridement Subcutaneous -Post Debridement Size (cm) - Length 5.5 -Post Debridement Size (cm) - Width 3.0 -Post Debridement Size (cm) - Depth 2.4 -Total Square Cm 16.50 -Wound/Ulcer Outcome Not Healed -Treatment Response Procedure Tolerated Well #6 R upper Sacrum -Time 16:40 -Correct Patient Yes -Correct Side, Site, Position Yes -Correct Procedure Yes -Procedure Performed Yes -Type of Procedure Debridement -Clinical Debridement Subcutaneous -Post Debridement Size (cm) - Length 0.5 -Post Debridement Size (cm) - Width 0.6 -Post Debridement Size (cm) - Depth 0.1 -Total Square Cm 0.30 -Wound/Ulcer Outcome Not Healed -Bleeding Controlled with Pressure -Treatment Response Procedure Tolerated Well [See Physician Procedure note for Specifics] Pain Scale: 0-10 Numeric [Pain] -Is Patient Pain Free? Yes Neurological: Neuro grossly intact Psych/Mental Status: Normal Affect, Appropriate, Alert and oriented to time, place, person, mood and affect Debridement Note Post-Debridement Measurements/Treatment WC - Nurse 2 - General Ulcer CM Notes Start: 10/18/18 15:15 Freq: Status: Active Protocol: Activity Type Activity Date Activity User E-Sign Co-Sign Detail Recorded Client Recorded Date Recorded By Document 10/18/18 16:39 AN [id number] 10/18/18 16:40 AN Document 10/25/18 16:35 AN [id number] 10/25/18 16:40 AN 10/18/18 10/25/18 16:39 16:35 Wound Center Nurse 2 #7 Right Ischium -Time 16:39 16:39 -Correct Patient Yes Yes -Correct Side, Site, Position Yes Yes -Correct Procedure Yes Yes -Procedure Performed Yes Yes -Type of Procedure Debridement Debridement -Clinical Debridement Subcutaneous Subcutaneous -Post Debridement Size (cm) - Length 6 5.5 -Post Debridement Size (cm) - Width 3.5 3.0 -Post Debridement Size (cm) - Depth 2.9 2.4 -Total Square Cm 21.0 16.50 -Wound/Ulcer Outcome Not Healed Not Healed -Ulcer Cleansing Rinsed/ Irrigated with Saline -Bleeding Controlled with Pressure -Offloading Yes -Treatment Response Procedure Procedure Tolerated Well Tolerated Well #6 R upper Sacrum -Time 16:40 16:40 -Correct Patient Yes Yes -Correct Side, Site, Position Yes Yes -Correct Procedure Yes Yes -Procedure Performed Yes Yes -Type of Procedure Debridement Debridement -Clinical Debridement Subcutaneous Subcutaneous -Post Debridement Size (cm) - Length 1.0 0.5 -Post Debridement Size (cm) - Width 0.5 0.6 -Post Debridement Size (cm) - Depth 0.1 0.1 -Total Square Cm 0.50 0.30 -Wound/Ulcer Outcome Not Healed Not Healed -Ulcer Cleansing Rinsed/ Irrigated with Saline -Foul Odor after Cleansing No -Bleeding Controlled with Pressure Pressure -Offloading Yes -Treatment Response Procedure Procedure Tolerated Well Tolerated Well Pain Scale: 0-10 Numeric Is Patient Pain Free? Yes Yes Wound debrided: Stage IV pressure injury right ischium Laterality: Right Type of Debridement: Excisional debridement Anesthesia Used: 5% Lidocaine Gel Depth: to muscle Percentage of wound debrided: 100 Instrument Used: 5mm curette Tissue Removed: Slough and devitalized tissue Severity: Fat Layer Exposed Amount of bleeding with debridement: Mild Bleeding Controlled with: Pressure Patient tolerated procedure well - Additional Wound Wound debrided: Stage II pressure injury right buttock Laterality: Right Type of Debridement: Excisional debridement Anesthesia Used: 4% Lidocaine Solution Depth: in the subcutaneous layer Percentage of wound debrided: 100 Instrument Used: 5mm curette Tissue Removed: Slough and devitalized tissue Severity: Fat Layer Exposed Amount of bleeding with debridement: Mild Bleeding Controlled with: Pressure Patient tolerated procedure: Patient tolerated procedure well Assessment/Plan Active Problems Pressure injury of right buttock, stage 2 (Acute) Right ischial pressure sore, stage 4 (Chronic) Assessment: Nonhealing right ischium pressure ulcer, stage IV. Stage II pressure ulcer right buttock. Furuncle left posterior thigh Plan: The patient was seen and examined at the wound center today and was updated on the plan of care. A muscular debridement was performed today. The patient tolerated the procedure well. The patients wound care will consist of: Applying Aquacel silver to all wounds. Wound cultures were collected today. Due to the delayed wound healing and depth of the pressure ulcer, will apply for a wound VAC. For the burn goal of the left posterior thigh, will start patient empirically on Augmentin.. Baseline bloodwork viewed from September 2018 and demonstrated a low prealbumin. Patient was advised to increase his supplemental protein intake to 3-4 drinks per day. Given the delayed wound healing and the fact that his wound care has actually been going on now for approximately 2 years per patient report, will apply for the use of an advanced skin substitute. Patient educated on the importance of diet on wound healing and instructed to increase protein and vitamin C intake. Patient verbalized understanding. Patient will follow up at wound healing center in one week or sooner if needed. Advised again on the importance of offloading and position changes at least every 2 hours. This message was relayed to the nursing facility as well. Will also request records from [facility] for continuity of care. This note was generated with [employer] software. It may contain incorrect words, spelling, and punctuation that were not noted in checking the note before signing. Code Visit [id number]: [id number] Sue musc/fascia 20 sq cm/<
[2018-10-26 16:35] LABS: Probe Check PASS; Staph aureus DNA By PCR POSITIVE (Negative)
[2018-10-26 16:36] LABS: M R Staph aureus DNA By PCR POSITIVE (Negative)
[2018-11-01 13:51] VITALS: BP 126/58; PULSE 71; RESP 16; TEMP 36.6; BMI 27.9
--- NOTE | 2018-11-01 19:34 | PN.PCM_ITS ---
(1) Right ischial pressure sore, stage 4 Status: Chronic Code(s): L89.314 - Pressure ulcer of right buttock, stage 4 (2) Pressure injury of right buttock, stage 2 Status: Acute Code(s): L89.312 - Pressure ulcer of right buttock, stage 2 (3) Anal cancer Status: Chronic Code(s): C21.0 - Malignant neoplasm of anus, unspecified (4) Anxiety and depression Status: Chronic Code(s): F41.8 - Other specified anxiety disorders (5) COPD (chronic obstructive pulmonary disease) Status: Chronic Qualifiers: Code(s): J44.9 - Chronic obstructive pulmonary disease, unspecified (6) Debility Status: Chronic Code(s): R53.81 - Other malaise (7) HTN (hypertension) Status: Chronic Qualifiers: Code(s): I10 - Essential (primary) hypertension (8) PAD (peripheral artery disease) Status: Chronic Code(s): I73.9 - Peripheral vascular disease, unspecified Type of Wound Date of Service: 11/07/18 Chief Complaint: Nonhealing radiation pressure ulcer. History of Wound: Mr Rincon is a 63 yo very well known to the wound center and up to a couple of weeks ago, was following up with a surgeon at [facility] who recently performed a muscle flap for his chronic right buttock stage IV ulcer which failed. He also had sessions of HBO. No available report from [facility] is available at this time, however the patient reports that his surgeon instructed him that they will reattempt another muscle flap after the patient received a colostomy. He does note that a colostomy procedure was performed in September 2018. He has currently been residing in a half-way facility where they have been utilizing wet-to-dry dressings to his stage IV ischial pressure injury and Santyl to his stage II right buttock pressure injury. He returns here for continued wound care. He denies any concerns at this time. It appears he has been having a wet-to-dry dressing at his nursing facility. He denies any significant discharge from the wound. The patient otherwise denies any fever, chills, nausea, vomiting, shortness of breath, chest pain or pressure, palpitations, orthopnea, lower extremity edema, syncope or presyncopal episodes. Progress of Wound: Wounds are stable, he does have a boil to his left posterior thigh that is now open and draining since starting on the Augmentin which she is tolerating well. His wound cultures were reviewed from his stage IV ischial pressure ulcer and showed MRSA, Proteus mirabilis, E. coli, anaerobic cocci, and Prevotella and therefore doxycycline was added to his medication regimen. Given his delayed wound healing, infectious disease was consulted. Patient denies any acute concerns at this time. Wound VAC is pending. - Physical Exam Vital Signs Temp Pulse Resp BP 98 F 71 16 126/58 H 11/01/18 13:51 11/01/18 13:51 11/01/18 13:51 11/01/18 13:51 General: Alert, Oriented x3, Cooperative, No apparent distress HEENT: Atraumatic Lungs: Clear to auscultation Cardiovascular: Regular rate Extremities: No clubbing, No cyanosis, No edema Skin: Ulcer/ Wound - See nursing documentation on wounds Musculoskeletal: Arthritic Changes Neurological: Neuro grossly intact Psych/Mental Status: Normal Affect, Appropriate, Alert and oriented to time, place, person, mood and affect Debridement Note Post-Debridement Measurements/Treatment WC - Nurse 2 - General Ulcer CM Notes Start: 10/18/18 15:15 Freq: Status: Active Protocol: Activity Type Activity Date Activity User E-Sign Co-Sign Detail Recorded Client Recorded Date Recorded By Document 10/18/18 16:39 AN [id number] 10/18/18 16:40 AN Document 10/25/18 16:35 AN [id number] 10/25/18 16:40 AN 10/18/18 10/25/18 16:39 16:35 Wound Center Nurse 2 #7 Right Ischium -Time 16:39 16:39 -Correct Patient Yes Yes -Correct Side, Site, Position Yes Yes -Correct Procedure Yes Yes -Procedure Performed Yes Yes -Type of Procedure Debridement Debridement -Clinical Debridement Subcutaneous Subcutaneous -Post Debridement Size (cm) - Length 6 5.5 -Post Debridement Size (cm) - Width 3.5 3.0 -Post Debridement Size (cm) - Depth 2.9 2.4 -Total Square Cm 21.0 16.50 -Wound/Ulcer Outcome Not Healed Not Healed -Ulcer Cleansing Rinsed/ Irrigated with Saline -Bleeding Controlled with Pressure -Offloading Yes -Treatment Response Procedure Procedure Tolerated Well Tolerated Well #6 R upper Sacrum -Time 16:40 16:40 -Correct Patient Yes Yes -Correct Side, Site, Position Yes Yes -Correct Procedure Yes Yes -Procedure Performed Yes Yes -Type of Procedure Debridement Debridement -Clinical Debridement Subcutaneous Subcutaneous -Post Debridement Size (cm) - Length 1.0 0.5 -Post Debridement Size (cm) - Width 0.5 0.6 -Post Debridement Size (cm) - Depth 0.1 0.1 -Total Square Cm 0.50 0.30 -Wound/Ulcer Outcome Not Healed Not Healed -Ulcer Cleansing Rinsed/ Irrigated with Saline -Foul Odor after Cleansing No -Bleeding Controlled with Pressure Pressure -Offloading Yes -Treatment Response Procedure Procedure Tolerated Well Tolerated Well Pain Scale: 0-10 Numeric Is Patient Pain Free? Yes Yes Wound debrided: Stage IV pressure ulcer ischium Laterality: Right Type of Debridement: Excisional debridement Anesthesia Used: 5% Lidocaine Gel Depth: in the subcutaneous layer Percentage of wound debrided: 100 Instrument Used: 7mm curette Tissue Removed: Slough and devitalized tissue Severity: Fat Layer Exposed Amount of bleeding with debridement: Mild Bleeding Controlled with: Pressure Patient tolerated procedure well - Additional Wound Wound debrided: Right thigh ulceration Laterality: Right Type of Debridement: Excisional debridement Anesthesia Used: 5% Lidocaine Gel Depth: in the subcutaneous layer Percentage of wound debrided: 100 Instrument Used: 5mm curette Tissue Removed: Slough and devitalized tissue Severity: Fat Layer Exposed Amount of bleeding with debridement: Mild Bleeding Controlled with: Pressure Patient tolerated procedure: Patient tolerated procedure well Assessment/Plan Assessment: Nonhealing right ischium pressure ulcer, stage IV. Stage II pressure ulcer right buttock healed on 11/01/2018. Furuncle left posterior thigh now open and draining and a cluster nonhealing ulcer Plan: The patient was seen and examined at the wound center today and was updated on the plan of care. A muscular debridement was performed today. The patient tolerated the procedure well. The patients wound care will consist of: Applying Aquacel silver to all wounds. Wound cultures were collected prior and showed MRSA, Proteus, E. coli, anaerobic cocci, and Prevotella. Patient started on Augmentin and doxycycline and referred to infectious disease. Due to the delayed wound healing and depth of the pressure ulcer, will apply for a wound VAC. Baseline bloodwork viewed from September 2018 and demonstrated a low prealbumin. Patient was advised to increase his supplemental protein intake to 3-4 drinks per day. Given the delayed wound healing and the fact that his wound care has actually been going on now for approximately 2 years per patient report, will apply for the use of an advanced skin substitute. Patient educated on the importance of diet on wound healing and instructed to increase protein and vitamin C intake. Patient verbalized understanding. Patient will follow up at wound healing center in one week or sooner if needed. Advised again on the importance of offloading and position changes at least every 2 hours. This message was relayed to the nursing facility as well. Will also request records from [facility] for continuity of care. This note was generated with [employer] dictation software. It may contain incorrect words, spelling, and punctuation that were not noted in checking the note before signing. Code Visit 111xxx-[id number]: [id number] Sue musc/fascia 20 sq cm/<
[2018-11-08 13:05] VITALS: BP 151/69; PULSE 65; RESP 18; TEMP 36.7; BMI 27.9
--- NOTE | 2018-11-08 15:31 | PN.PCM_ITS ---
(1) Right ischial pressure sore, stage 4 Status: Chronic Current Visit: Yes Code(s): L89.314 - Pressure ulcer of right buttock, stage 4 (2) Pressure injury of right buttock, stage 2 Status: Acute Current Visit: No Code(s): L89.312 - Pressure ulcer of right buttock, stage 2 (3) Anal cancer Status: Chronic Current Visit: No Code(s): C21.0 - Malignant neoplasm of anus, unspecified (4) Anxiety and depression Status: Chronic Current Visit: No Code(s): F41.8 - Other specified anxiety disorders (5) COPD (chronic obstructive pulmonary disease) Status: Chronic Current Visit: No Qualifiers: Code(s): J44.9 - Chronic obstructive pulmonary disease, unspecified (6) Debility Status: Chronic Current Visit: No Code(s): R53.81 - Other malaise (7) HTN (hypertension) Status: Chronic Current Visit: No Qualifiers: Code(s): I10 - Essential (primary) hypertension (8) PAD (peripheral artery disease) Status: Chronic Current Visit: No Code(s): I73.9 - Peripheral vascular disease, unspecified (9) Skin ulcer of left thigh with fat layer exposed Status: Acute Current Visit: Yes Code(s): L97.122 - Non-pressure chronic ulcer of left thigh with fat layer exposed Type of Wound Date of Service: 11/08/18 Chief Complaint: Nonhealing pressure ulcer right ischium and left thigh skin ulcer. History of Wound: Mr Rincon is a 63 yo very well known to the wound center and up to a couple of weeks ago, was following up with a surgeon at [facility] who recently performed a muscle flap for his chronic right buttock stage IV ulcer which failed. He also had sessions of HBO. No available report from [facility] is available at this time, however the patient reports that his surgeon instructed him that they will reattempt another muscle flap after the patient received a colostomy. He does note that a colostomy procedure was performed in September 2018. He has c urrently been residing in a shelter facility where they have been utilizing wet-to-dry dressings to his stage IV ischial pressure injury and Santyl to his stage II right buttock pressure injury. He returns here for continued wound care. He denies any concerns at this time. It appears he has been having a wet-to-dry dressing at his nursing facility. He denies any significant discharge from the wound. The patient otherwise denies any fever, chills, nausea, vomiting, shortness of breath, chest pain or pressure, palpitations, orthopnea, lower extremity edema, syncope or presyncopal episodes. Progress of Wound: Wounds are stable, he does have a boil to his left posterior thigh that is now open and draining since starting on the Augmentin which he is tolerating well. His wound cultures were reviewed from his stage IV ischial pressure ulcer and showed MRSA, Proteus mirabilis, E. coli, anaerobic cocci, and Prevotella and therefore doxycycline was added to his medication regimen and he is tolerating. Given his delayed wound healing and multiple bacteria in the wound, infectious disease was consulted. Patient denies any acute concerns at this time. Wound VAC is pending approval. - Physical Exam Vital Signs Temp Pulse Resp BP 98.0 F 65 18 151/69 H 11/08/18 13:05 11/08/18 13:05 11/08/18 13:05 11/08/18 13:05 General: Alert, Oriented x3, Cooperative, No apparent distress HEENT: Atraumatic Oral: Moist Mucosa Lungs: Clear to auscultation Cardiovascular: Regular rate Abdomen: Soft, Non Tender, Non-Distended Extremities: No clubbing, No cyanosis, No edema Skin: Ulcer/ Wound - ulceration to right ischium with adherent slough, no signs of infection at this time, left thigh skin ulcer with adherent slough, no redness streaking or signs of infection, depth improving Wound Measurements and Assessment WC - Nurse 1 - General Ulcer Measurement Start: 10/18/18 15:15 Freq: Status: Active Protocol: Activity Type Activity Date Activity User E-Sign Co-Sign Detail Recorded Client Recorded Date Recorded By Document 11/08/18 13:05 [facility] [id number] 11/08/18 13:11 [facility] 11/08/18 13:05 Wound Center Nurse 1 [Ulcer Assessment] #8- LEFT UPPER POST THIGH CLUSTER -Current Size (cm) - Length 4.4 -Current Size (cm) - Width 0.7 -Current Size (cm) - Depth 0.2 -Total Square Cm 3.08 -Exudate Amt Small -Exudate Type Serosanguineous -Wound Margin Flat & Intact -Granulation Amt Medium (34-66%) -Granulation Quality Pale,Nellie -Necrosis Amt Medium (34-66%) -Necrotic Tissue Type Adherent Slough -Texture (Nathalie-wound Skin Appearance) Assessed, Scarring -Moisture (Nathalie-wound Skin Appearance Assessed ) -Color (Nathalie-wound Skin Appearance) Assessed -Temperature (Nathalie-wound Skin No Abnormality Appearance) (Pt Warm) -Tenderness on Palpation (Nathalie-wound No Skin Appearance) -Ulcer Cleansing Rinsed/ Irrigated with Saline -Foul Odor after Cleansing No -Anesthetic Used 4% Lidocaine Solution #7 Right Ischium -Current Size (cm) - Length 5 -Current Size (cm) - Width 2.5 -Current Size (cm) - Depth 1.0 -Total Square Cm 12.5 -Undermining/Tunneling Yes -Undermining/Tunneling Starts (O' 12 clock) -Undermining/Tunneling Ends (O'clock) 4 -Maximum Distance (cm) 2.6 -Exudate Amt Small -Exudate Type Serosanguineous -Wound Margin Thickened & Rolled Under -Granulation Amt Large (67-100%) -Granulation Quality Pale,Nellie -Necrosis Amt Small (1-33%) -Necrotic Tissue Type Adherent Slough -Texture (Nathalie-wound Skin Appearance) Assessed, Scarring -Moisture (Nathalie-wound Skin Appearance Assessed, ) Maceration -Color (Nathalie-wound Skin Appearance) Assessed -Temperature (Nathalie-wound Skin No Abnormality Appearance) (Pt Warm) -Tenderness on Palpation (Nathalie-wound No Skin Appearance) -Ulcer Cleansing Rinsed/ Irrigated with Saline -Foul Odor after Cleansing No -Anesthetic Used 4% Lidocaine Solution [Edema Assessment] -Lower Limb Edema Present NA WC - Nurse 2 - General Ulcer CM Notes Start: 10/18/18 15:15 Freq: Status: Active Protocol: Activity Type Activity Date Activity User E-Sign Co-Sign Detail Recorded Client Recorded Date Recorded By Document 11/08/18 13:27 MW [id number] 11/08/18 13:36 MW 11/08/18 13:27 Wound Center Nurse 2 [Procedure/Treatment] #8- LEFT UPPER POST THIGH CLUSTER -Time 13:31 -Correct Patient Yes -Correct Side, Site, Position Yes -Correct Procedure Yes -Procedure Performed Yes -Type of Procedure Debridement -Clinical Debridement Subcutaneous -Post Debridement Size (cm) - Length 4.1 -Post Debridement Size (cm) - Width 1.0 -Post Debridement Size (cm) - Depth 0.1 -Total Square Cm 4.10 -Wound/Ulcer Outcome Not Healed -Ulcer Cleansing Rinsed/ Irrigated with Saline -Foul Odor after Cleansing No -Bioengineered Tissue No -Bleeding Controlled with Pressure -Offloading No -Treatment Response Procedure Tolerated Well #7 Right Ischium -Time 13:31 -Correct Patient Yes -Correct Side, Site, Position Yes -Correct Procedure Yes -Procedure Performed Yes -Type of Procedure Debridement -Clinical Debridement Subcutaneous -Post Debridement Size (cm) - Length 5.5 -Post Debridement Size (cm) - Width 2.7 -Post Debridement Size (cm) - Depth 3.0 -Total Square Cm 14.85 -Wound/Ulcer Outcome Not Healed -Ulcer Cleansing Rinsed/ Irrigated with Saline -Foul Odor after Cleansing No -Bioengineered Tissue Yes -Type of bioengineered Tissue [id number] -Expiration Date 03/08/21 -Product Lot Number [id number] -Percent Used 100 -Saline Lot Number [id number] -Bleeding Controlled with Pressure -Offloading No -Treatment Response Procedure Tolerated Well [See Physician Procedure note for Specifics] Pain Scale: 0-10 Numeric [Pain] -Is Patient Pain Free? Yes Neurological: Neuro grossly intact Psych/Mental Status: Normal Affect, Appropriate, Alert and oriented to time, place, person, mood and affect Debridement Note Post-Debridement Measurements/Treatment WC - Nurse 2 - General Ulcer CM Notes Start: 10/18/18 15:15 Freq: Status: Active Protocol: Activity Type Activity Date Activity User E-Sign Co-Sign Detail Recorded Client Recorded Date Recorded By Document 10/18/18 16:39 AN [id number] 10/18/18 16:40 AN Document 10/25/18 16:35 AN [email or web address] 10/25/18 16:40 AN Document 11/08/18 13:27 MW [id number] 11/08/18 13:36 MW 10/18/18 10/25/18 11/08/18 16:39 16:35 13:27 Wound Center Nurse 2 #8- LEFT UPPER POST THIGH CLUSTER -Time 13:31 -Correct Patient Yes -Correct Side, Site, Position Yes -Correct Procedure Yes -Procedure Performed Yes -Type of Procedure Debridement -Clinical Debridement Subcutaneous -Post Debridement Size (cm) - Length 4.1 -Post Debridement Size (cm) - Width 1.0 -Post Debridement Size (cm) - Depth 0.1 -Total Square Cm 4.10 -Wound/Ulcer Outcome Not Healed -Ulcer Cleansing Rinsed/ Irrigated with Saline -Foul Odor after Cleansing No -Bioengineered Tissue No -Bleeding Controlled with Pressure -Offloading No -Treatment Response Procedure Tolerated Well #7 Right Ischium -Time 16:39 16:39 13:31 -Correct Patient Yes Yes Yes -Correct Side, Site, Position Yes Yes Yes -Correct Procedure Yes Yes Yes -Procedure Performed Yes Yes Yes -Type of Procedure Debridement Debridement Debridement -Clinical Debridement Subcutaneous Subcutaneous Subcutaneous -Post Debridement Size (cm) - Length 6 5.5 5.5 -Post Debridement Size (cm) - Width 3.5 3.0 2.7 -Post Debridement Size (cm) - Depth 2.9 2.4 3.0 -Total Square Cm 21.0 16.50 14.85 -Wound/Ulcer Outcome Not Healed Not Healed Not Healed -Ulcer Cleansing Rinsed/ Rinsed/ Irrigated with Irrigated with Saline Saline -Foul Odor after Cleansing No -Bioengineered Tissue Yes -Type of bioengineered Tissue [id number] -Expiration Date 03/08/21 -Product Lot Number [id number] -Percent Used 100 -Saline Lot Number [id number] -Bleeding Controlled with Pressure Pressure -Offloading Yes No -Treatment Response Procedure Procedure Procedure Tolerated Well Tolerated Well Tolerated Well #6 R upper Sacrum -Time 16:40 16:40 -Correct Patient Yes Yes -Correct Side, Site, Position Yes Yes -Correct Procedure Yes Yes -Procedure Performed Yes Yes -Type of Procedure Debridement Debridement -Clinical Debridement Subcutaneous Subcutaneous -Post Debridement Size (cm) - Length 1.0 0.5 -Post Debridement Size (cm) - Width 0.5 0.6 -Post Debridement Size (cm) - Depth 0.1 0.1 -Total Square Cm 0.50 0.30 -Wound/Ulcer Outcome Not Healed Not Healed -Ulcer Cleansing Rinsed/ Irrigated with Saline -Foul Odor after Cleansing No -Bleeding Controlled with Pressure Pressure -Offloading Yes -Treatment Response Procedure Procedure Tolerated Well Tolerated Well Pain Scale: 0-10 Numeric Is Patient Pain Free? Yes Yes Yes Wound debrided: Stage IV right ischial pressure ulcer, muscle exposed Laterality: Right Type of Debridement: Excisional debridement Anesthesia Used: 5% Lidocaine Gel Depth: in the subcutaneous layer, to muscle Percentage of wound debrided: 100 Instrument Used: 7mm curette Tissue Removed: Slough and devitalized tissue Severity: Necrosis of Muscle Amount of bleeding with debridement: Mild Bleeding Controlled with: Pressure Patient tolerated procedure well - Additional Wound Wound debrided: Thigh cluster ulcer Laterality: Left Type of Debridement: Excisional debridement Anesthesia Used: 5% Lidocaine Gel Depth: in the subcutaneous layer Percentage of wound debrided: 100 Instrument Used: 7mm curette Tissue Removed: Slough and devitalized tissue Severity: Fat Layer Exposed Amount of bleeding with debridement: Mild Bleeding Controlled with: Pressure Patient tolerated procedure: Patient tolerated procedure well Assessment/Plan Active Problems Skin ulcer of left thigh with fat layer exposed (Acute) Right ischial pressure sore, stage 4 (Chronic) Assessment: Nonhealing right ischium pressure ulcer, stage IV. Stage II pressure ulcer right buttock healed on 11/01/2018. Furuncle left posterior thigh now open and draining and a cluster nonhealing ulcer Plan: The patient was seen and examined at the wound center today and was updated on the plan of care. A muscular debridement was performed today. The patient tolerated the procedure well. The patients wound care will consist of: Application of pure apply #1 was utilized to the right ischial pressure ulcer, 100% of the product was utilized with 0% waist, he may utilize Aquacel AG to thigh ulcer. Wound cultures were collected prior and showed MRSA, Proteus, E. coli, anaerobic cocci, and Prevotella. Patient started on Augmentin and doxycycline and referred to infectious disease. Due to the delayed wound healing and depth of the pressure ulcer, will apply for a wound VAC. Baseline bloodwork viewed from September 2018 and demonstrated a low prealbumin. Patient was advised to increase his supplemental protein intake to 3-4 drinks per day. Given the delayed wound healing and the fact that his wound care has actually been going on now for approximately 2 years per patient report, will apply for the use of an advanced skin substitute. Patient educated on the importance of diet on wound healing and instructed to increase protein and vitamin C intake. Patient verbalized understanding. Patient will follow up at wound healing center in one week or sooner if needed. Advised again on the importance of offloading and position changes at least every 2 hours. This message was relayed to the nursing facility as well. Will also request records from [facility] for continuity of care. This note was generated with [employer] dictation software. It may contain incorrect words, spelling, and punctuation that were not noted in checking the note before signing. Code Visit 111xxx-113xx: 29800 Sue subq tissue 20 sq cm/< 150xxx-152xx: 07385 Skin sub graft trnk/arm/leg
== END 2018-11-10 23:59 ==
LOC: WC 13:15
PROVIDERS: Family Provider Internal Medicine; PCP Internal Medicine; Visit Provider Nurse Practitioner Family
DX: I73.9 Peripheral vascular disease, unspecified (principal); L89.214 Pressure ulcer of right hip, stage 4; Z85.048 Personal history of other malignant neoplasm of rectum, rectosigmoid junction, and anus; F41.9 Anxiety disorder, unspecified; F32.9 Major depressive disorder, single episode, unspecified; J44.9 Chronic obstructive pulmonary disease, unspecified; I10 Essential (primary) hypertension; Z93.3 Colostomy status; L89.312 Pressure ulcer of right buttock, stage 2; K21.9 Gastro-esophageal reflux disease without esophagitis; E78.5 Hyperlipidemia, unspecified
CPT/HCPCS: 11042; 11043; 11046; 15271; 87070; 87075; 87076; 87077; 87186; 87205; 87640; Q4196

== ENCOUNTER 2018-11-29 14:15 | Outpatient (RCR) | payer MEDICAID, SELFPAY ==
[2018-11-11 01:09] VITALS: BP 151/69; PULSE 65; RESP 18; TEMP 36.7
[2018-11-15 13:29] VITALS: BP 119/76; PULSE 65; RESP 18; TEMP 36.4; BMI 27.9
--- NOTE | 2018-11-15 19:38 | PN.PCM_ITS ---
(1) Right ischial pressure sore, stage 4 Status: Chronic Code(s): L89.314 - Pressure ulcer of right buttock, stage 4 (2) Skin ulcer of left thigh with fat layer exposed Status: Acute Code(s): L97.122 - Non-pressure chronic ulcer of left thigh with fat layer exposed (3) COPD (chronic obstructive pulmonary disease) Status: Chronic Qualifiers: Code(s): J44.9 - Chronic obstructive pulmonary disease, unspecified (4) Debility Status: Chronic Code(s): R53.81 - Other malaise Type of Wound Date of Service: 11/15/18 Chief Complaint: Nonhealing pressure ulcer right ischium and left thigh skin ulcer. History of Wound: Mr Rincon is a 63 yo very well known to the wound center and up to a couple of weeks ago, was following up with a surgeon at [facility] who recently performed a muscle flap for his chronic right buttock stage IV ulcer which failed. He also had sessions of HBO. No available report from [facility] is available at this time, however the patient reports that his surgeon instructed him that they will reattempt another muscle flap after the patient received a colostomy. He does note that a colostomy procedure was performed in September 2018. He has currently been residing in a custodial facility where they have been utilizing wet-to-dry dressings to his stage IV ischial pressure injury and Santyl to his stage II right buttock pressure injury. He returns here for continued wound care. He denies any concerns at this time. It appears he has been having a wet-to-dry dressing at his nursing facility. He denies any significant discharge from the wound. The patient otherwise denies any fever, chills, nausea, vomiting, shortness of breath, chest pain or pressure, palpitations, orthopnea, lower extremity edema, syncope or presyncopal episodes. Progress of Wound: Wounds are stable. His wound cultures were reviewed from his stage IV ischial pressure ulcer and showed MRSA, Proteus mirabilis, E. coli, anaerobic cocci, and Prevotella and therefore doxycycline was added to his med ication regimen and he completed the course along with his Augmentin. Given his delayed wound healing and multiple bacteria in the wound, infectious disease was consulted. Patient denies any acute concerns at this time. Wound VAC was approved and will be placed today with black foam set to 125 mmHg. - Physical Exam Vital Signs Temp Pulse Resp BP 97.5 F L 65 18 119/76 11/15/18 13:29 11/15/18 13:29 11/15/18 13:29 11/15/18 13:29 General: Alert, Oriented x3, Cooperative, No apparent distress HEENT: Atraumatic Oral: Moist Mucosa Lungs: Clear to auscultation Cardiovascular: Regular rate Abdomen: Soft, - - Colostomy present Skin: Ulcer/ Wound - Ulceration to left thigh and right ischium with adherent slough, no signs of obvious infection at this time, no foul odor, redness or streaking Neurological: Neuro grossly intact Psych/Mental Status: Normal Affect, Appropriate Debridement Note Post-Debridement Measurements/Treatment WC - Nurse 2 - General Ulcer CM Notes Start: 11/15/18 13:28 Freq: Status: Active Protocol: Activity Type Activity Date Activity User E-Sign Co-Sign Detail Recorded Client Recorded Date Recorded By Document 11/15/18 14:02 AN [id number] 11/15/18 14:07 AN 11/15/18 14:02 Wound Center Nurse 2 #8- LEFT UPPER POST THIGH CLUSTER -Time 14:04 -Correct Patient Yes -Correct Side, Site, Position Yes -Correct Procedure Yes -Procedure Performed Yes -Type of Procedure Debridement -Clinical Debridement Subcutaneous -Post Debridement Size (cm) - Length 1.0 -Post Debridement Size (cm) - Width 1.0 -Post Debridement Size (cm) - Depth 0.1 -Total Square Cm 1.00 -Wound/Ulcer Outcome Not Healed -Bleeding Controlled with Pressure -Offloading Yes -Treatment Response Procedure Tolerated Well #7 Right Ischium -Time 14:06 -Correct Patient Yes -Correct Side, Site, Position Yes -Correct Procedure Yes -Procedure Performed Yes -Type of Procedure Debridement -Clinical Debridement Subcutaneous -Post Debridement Size (cm) - Length 5.0 -Post Debridement Size (cm) - Width 3.0 -Post Debridement Size (cm) - Depth 2.2 -Total Square Cm 15.00 -Wound/Ulcer Outcome Not Healed -Ulcer Cleansing Rinsed/ Irrigated with Saline -Foul Odor after Cleansing No -Bioengineered Tissue Yes -Type of bioengineered Tissue [id number] -Bleeding Controlled with Pressure -Offloading Yes -Treatment Response Procedure Tolerated Well Pain Scale: 0-10 Numeric Is Patient Pain Free? Yes Wound debrided: Stage IV right ischial pressure injury Laterality: Right Type of Debridement: Excisional debridement Anesthesia Used: 5% Lidocaine Gel Depth: in the subcutaneous layer Percentage of wound debrided: 100 Instrument Used: 7mm curette Tissue Removed: Slough and devitalized tissue Severity: Necrosis of Muscle Amount of bleeding with debridement: Mild Bleeding Controlled with: Pressure Patient tolerated procedure well - Additional Wound Wound debrided: Skin ulcer to left thigh Laterality: Left Type of Debridement: Excisional debridement Anesthesia Used: 5% Lidocaine Gel Depth: in the subcutaneous layer Percentage of wound debrided: 100 Instrument Used: 3mm curette Tissue Removed: Slough and devitalized tissue Severity: Fat Layer Exposed Amount of bleeding with debridement: Mild Bleeding Controlled with: Pressure Patient tolerated procedure: Patient tolerated procedure well Assessment/Plan Assessment: Nonhealing right ischium pressure ulcer, stage IV. Stage II pressure ulcer right buttock healed on 11/01/2018. Furuncle left posterior thigh now open and draining and a cluster nonhealing ulcer Plan: The patient was seen and examined at the wound center today and was updated on the plan of care. A muscular debridement was performed today. The patient tolerated the procedure well. The patients wound care will consist of: Application of purapply #2 was utilized to the right ischial pressure ulcer, 100% of the product was utilized with 0% waste, covered with Adaptic and then secured with placement of the wound VAC which will be changed twice weekly at a setting of 125 mmHg. He may utilize Aquacel AG to thigh ulcer. Wound cultures were collected prior and showed MRSA, Proteus, E. coli, anaerobic cocci, and Prevotella. Patient completed course of Augmentin and doxycycline and referred to infectious disease. Due to the delayed wound healing and depth of the pressure ulcer, will apply for a wound VAC. Baseline bloodwork viewed from September 2018 and demonstrated a low prealbumin. Patient was advised to increase his supplemental protein intake to 3-4 drinks per day. Given the delayed wound healing and the fact that his wound care has actually been going on now for approximately 2 years per patient report, will apply for the use of an advanced skin substitute. Patient educated on the importance of diet on wound healing and instructed to increase protein and vitamin C intake. Patient verbalized understanding. Patient will follow up at wound healing center in one week or sooner if needed. Advised again on the importance of offloading and position changes at least every 2 hours. This message was relayed to the nursing facility as well. Will also request records from [facility] for continuity of care. This note was generated with [employer] dictation software. It may contain incorrect words, spelling, and punctuation that were not noted in checking the note before signing. Code Visit 150xxx-152xx: 37179 Skin sub graft trnk/arm/leg
--- NOTE | 2018-11-16 12:44 | PCM.PN.ID ---
Subjective: Feeling well, wounds improving. Stable since completing recent course of doxy and augmentin. No fever. - Physical Exam General: Alert, Cooperative, No apparent distress Lungs: Clear to auscultation, Normal air movement Cardiovascular: Regular rate, Regular Rhythm Abdomen: Soft, Non Tender, Non-Distended Skin: Ulcer/ Wound - wound vac in place. L buttock wounds with no redness or drainage Vital Signs Temp Pulse Resp BP 97.5 F L 65 18 119/76 11/15/18 13:29 11/15/18 13:29 11/15/18 13:29 11/15/18 13:29 Body Mass Index (BMI) 27.9 Medical Necessity - Tobacco Use Smoking Status: Former smoker Route of nutrition/ use of supplements: [] Nutritional Intake: [] IV Site: [] Walker Catheter: [] - Assessment/Plan Antibiotics: [] Assessment/Plan: [] Stable off abx. Recently completed doxy and augmentin after recent cxs with mrsa, ecoli, proteus, and anaerobes. Wounds doing well. Question is if he will able heal s/p ostomy placement or if he will need another surgery for coverage. Will follow as needed, please call with any ?s
[2018-11-22 13:53] VITALS: BP 131/65; PULSE 73; RESP 16; TEMP 36.9; BMI 27.9
--- NOTE | 2018-11-22 20:36 | PN.PCM_ITS ---
(1) Right ischial pressure sore, stage 4 Status: Chronic Code(s): L89.314 - Pressure ulcer of right buttock, stage 4 (2) Skin ulcer of left thigh with fat layer exposed Status: Acute Code(s): L97.122 - Non-pressure chronic ulcer of left thigh with fat layer exposed (3) COPD (chronic obstructive pulmonary disease) Status: Chronic Qualifiers: Code(s): J44.9 - Chronic obstructive pulmonary disease, unspecified (4) Debility Status: Chronic Code(s): R53.81 - Other malaise Type of Wound Date of Service: 11/22/18 Chief Complaint: Nonhealing pressure ulcer right ischium and left thigh skin ulcer. History of Wound: Mr Rincon is a 63 yo very well known to the wound center and up to a couple of weeks ago, was following up with a surgeon at [facility] who recently performed a muscle flap for his chronic right buttock stage IV ulcer which failed. He also had sessions of HBO. No available report from [facility] is available at this time, however the patient reports that his surgeon instructed him that they will reattempt another muscle flap after the patient received a colostomy. He does note that a colostomy procedure was performed in September 2018. He has currently been residing in a [facility] facility where they have been utilizing wet-to-dry dressings to his stage IV ischial pressure injury and Santyl to his stage II right buttock pressure injury. He returns here for continued wound care. He denies any concerns at this time. It appears he has been having a wet-to-dry dressing at his nursing facility. He denies any significant discharge from the wound. The patient otherwise denies any fever, chills, nausea, vomiting, shortness of breath, chest pain or pressure, palpitations, orthopnea, lower extremity edema, syncope or presyncopal episodes. Progress of Wound: Wounds are stable, new pressure injury to right buttock, started as tape injury. His wound cultures were reviewed from his stage IV ischial pressure ulcer and showed MRSA, Proteus mirabilis, E. coli, anaerobic cocci, and Prevotella and therefore doxycycline was added to his medication regimen and he completed the course along with his Augmentin, ID was consulted and no changes. Patient denies any acute concerns at this time. Wound VAC was approved and will be placed today with black foam set to 125 mmHg. The patient does state that he still has not heard back from [facility] plastic surgery regarding his muscle flap surgery for the stage IV ischial pressure ulcer. - Physical Exam Vital Signs Temp Pulse Resp BP 98.4 F 73 16 131/65 H 11/22/18 13:53 11/22/18 13:53 11/22/18 13:53 11/22/18 13:53 General: Alert, Oriented x3, Cooperative, No apparent distress HEENT: Atraumatic Oral: Moist Mucosa Lungs: Clear to auscultation, Normal air movement Cardiovascular: Regular rate Abdomen: Soft, Non Tender Extremities: No clubbing, No cyanosis Skin: Ulcer/ Wound - ulceration as described in nursing documentation, no signs of infection at this time. Musculoskeletal: Arthritic Changes, Muscle Wasting Neurological: Neuro grossly intact Psych/Mental Status: Normal Affect, Appropriate, Alert and oriented to time, place, person, mood and affect Debridement Note Post-Debridement Measurements/Treatment WC - Nurse 2 - General Ulcer CM Notes Start: 11/15/18 13:28 Freq: Status: Active Protocol: Activity Type Activity Date Activity User E-Sign Co-Sign Detail Recorded Client Recorded Date Recorded By Document 11/15/18 14:02 AN [id number] 11/15/18 14:07 AN Document 11/22/18 14:21 AN [id number] 11/22/18 14:29 AN 11/15/18 11/22/18 14:02 14:21 Wound Center Nurse 2 #9- RT BUTTOCK CLUSTER -Time 14:21 -Correct Patient Yes -Correct Side, Site, Position Yes -Correct Procedure Yes -Procedure Performed Yes -Type of Procedure Debridement -Clinical Debridement Subcutaneous -Post Debridement Size (cm) - Length 5.0 -Post Debridement Size (cm) - Width 2.0 -Post Debridement Size (cm) - Depth 0.1 -Total Square Cm 10.00 -Wound/Ulcer Outcome Not Healed -Ulcer Cleansing Rinsed/ Irrigated with Saline -Offloading Yes #8- LEFT UPPER POST THIGH CLUSTER -Time 14:04 14:22 -Correct Patient Yes Yes -Correct Side, Site, Position Yes Yes -Correct Procedure Yes Yes -Procedure Performed Yes Yes -Type of Procedure Debridement Debridement -Clinical Debridement Subcutaneous Subcutaneous -Post Debridement Size (cm) - Length 1.0 0.5 -Post Debridement Size (cm) - Width 1.0 0.8 -Post Debridement Size (cm) - Depth 0.1 0.1 -Total Square Cm 1.00 0.40 -Wound/Ulcer Outcome Not Healed Not Healed -Bleeding Controlled with Pressure -Offloading Yes Yes -Treatment Response Procedure Tolerated Well #7 Right Ischium -Time 14:06 14:27 -Correct Patient Yes Yes -Correct Side, Site, Position Yes Yes -Correct Procedure Yes Yes -Procedure Performed Yes Yes -Type of Procedure Debridement Debridement -Clinical Debridement Subcutaneous Subcutaneous -Post Debridement Size (cm) - Length 5.0 4.8 -Post Debridement Size (cm) - Width 3.0 2.7 -Post Debridement Size (cm) - Depth 2.2 2.0 -Total Square Cm 15.00 12.96 -Wound/Ulcer Outcome Not Healed Not Healed -Ulcer Cleansing Rinsed/ Rinsed/ Irrigated with Irrigated with Saline Saline -Foul Odor after Cleansing No No -Bioengineered Tissue Yes Yes -Type of bioengineered Tissue [id number] -Expiration Date 11/22/18 -Product Lot Number [id number] -Percent Used 100 -Bleeding Controlled with Pressure Pressure -Offloading Yes Yes -Treatment Response Procedure Procedure Tolerated Well Tolerated Well Pain Scale: 0-10 Numeric Is Patient Pain Free? Yes Yes Wound debrided: stage 4 pressure injury right ischium Laterality: Right Type of Debridement: Excisional debridement Anesthesia Used: 5% Lidocaine Gel Depth: in the subcutaneous layer Percentage of wound debrided: 100 Instrument Used: 7mm curette Tissue Removed: slough and devitalized tissue Severity: Fat Layer Exposed Amount of bleeding with debridement: Mild Bleeding Controlled with: Pressure Patient tolerated procedure well - Additional Wound Wound debrided: Stage 2 pressure injury right thigh Laterality: Right Type of Debridement: Excisional debridement Anesthesia Used: 5% Lidocaine Gel Depth: in the subcutaneous layer Percentage of wound debrided: 100 Instrument Used: 7mm curette Tissue Removed: slough and devitalized tissue Severity: Fat Layer Exposed Amount of bleeding with debridement: Mild Bleeding Controlled with: Pressure Patient tolerated procedure: Patient tolerated procedure well Assessment/Plan Assessment: Nonhealing right ischium pressure ulcer, stage IV. Stage II pressure ulcer right buttock healed on 11/01/2018. Furuncle left posterior thigh now open and draining and a cluster nonhealing ulcer Plan: The patient was seen and examined at the wound center today and was updated on the plan of care. A muscular debridement was performed today. The patient tolerated the procedure well. The patients wound care will consist of: Application of purapply #3 was utilized to the right ischial pressure ulcer, 100% of the product was utilized with 0% waste, covered with Adaptic and then secured with placement of the wound VAC which will be changed twice weekly at a setting of 125 mmHg. He may utilize Aquacel AG to thigh ulcer and right buttock ulcer. Wound cultures were collected prior and showed MRSA, Proteus, E. coli, anaerobic cocci, and Prevotella. Patient completed course of Augmentin and doxycycline. Baseline bloodwork viewed from September 2018 and demonstrated a low prealbumin. Patient was advised to increase his supplemental protein intake to 3-4 drinks per day. Given the delayed wound healing and the fact that his wound care has actually been going on now for approximately 2 years per patient report, will apply for the use of an advanced skin substitute. Patient educated on the importance of diet on wound healing and instructed to increase protein and vitamin C intake. Patient verbalized understanding. Patient will follow up at wound healing center in one week or sooner if needed. Advised again on the importance of offloading and position changes at least every 2 hours. This message was relayed to the nursing facility as well. Will also request records from [facility] for continuity of care. Patient still has yet to have a follow-up scheduled with [facility] plastic surgery, therefore will refer to plastic surgery Dr. Mesa for evaluation of muscle flap. This note was generated with [employer] dictation software. It may contain incorrect words, spelling, and punctuation that were not noted in checking the note before signing. Code Visit 150xxx-152xx: 97497 Skin sub graft trnk/arm/leg
[2018-11-29 14:39] VITALS: BP 143/63; PULSE 99; RESP 18; TEMP 37.7; BMI 27.9
--- NOTE | 2018-11-29 14:43 | WC ---
pt states [employer] vac alarming leak during night so pt turned vac off at 11pm last night and didn't notify staff and left dressing on during night.
--- NOTE | 2018-11-29 16:04 | PN.PCM_ITS ---
(1) Right ischial pressure sore, stage 4 Status: Chronic Current Visit: Yes Code(s): L89.314 - Pressure ulcer of right buttock, stage 4 (2) Skin ulcer of left thigh with fat layer exposed Status: Acute Current Visit: Yes Code(s): L97.122 - Non-pressure chronic ulcer of left thigh with fat layer exposed (3) COPD (chronic obstructive pulmonary disease) Status: Chronic Current Visit: Yes Qualifiers: Code(s): J44.9 - Chronic obstructive pulmonary disease, unspecified (4) Debility Status: Chronic Current Visit: Yes Code(s): R53.81 - Other malaise Type of Wound Date of Service: 11/29/18 Chief Complaint: Nonhealing pressure ulcer right ischium and left thigh skin ulcer. History of Wound: Mr Rincon is a 63 yo very well known to the wound center and up to a couple of weeks ago, was following up with a surgeon at [facility] who recently performed a muscle flap for his chronic right buttock stage IV ulcer which fa iled. He also had sessions of HBO. No available report from [facility] is available at this time, however the patient reports that his surgeon instructed him that they will reattempt another muscle flap after the patient received a colostomy. He does note that a colostomy procedure was performed in September 2018. He has currently been residing in a custodial facility where they have been utilizing wet-to-dry dressings to his stage IV ischial pressure injury and Santyl to his stage II right buttock pressure injury. He returns here for continued wound care. He denies any concerns at this time. It appears he has been having a wet-to-dry dressing at his nursing facility. He denies any significant discharge from the wound. The patient otherwise denies any fever, chills, nausea, vomiting, shortness of breath, chest pain or pressure, palpitations, orthopnea, lower extremity edema, syncope or presyncopal episodes. Progress of Wound: Wounds are stable, however he does have large amount of excoriation from the VAC drape. His wound cultures were reviewed from his stage IV ischial pressure ulcer and showed MRSA, Proteus mirabilis, E. coli, anaerobic cocci, and Prevotella and therefore doxycycline was added to his medication regimen and he completed the course along with his Augmentin, ID was consulted and no changes. Patient denies any acute concerns at this time. The patient does state that he still has not heard back from [facility] plastic surgery regarding his muscle flap surgery for the stage IV ischial pressure ulcer and would like to be referred back to Dr. campbell. - Physical Exam Vital Signs Temp Pulse Resp BP 99.8 F H 99 18 143/63 H 11/29/18 14:39 11/29/18 14:39 11/29/18 14:39 11/29/18 14:39 General: Alert, Oriented x3, Cooperative, No apparent distress HEENT: Atraumatic Oral: Moist Mucosa Lungs: Clear to auscultation Cardiovascular: Regular rate Abdomen: Soft, Non Tender, Obese Extremities: No clubbing, No cyanosis, Edema Skin: Ulcer/ Wound - See nursing documentation, ulceration to right issue him and right buttock and left upper thigh with adherent slough, no signs of obvious infection at this time. Patient does have large amount of surrounding excoriation due to the draping of the wound VAC Wound Measurements and Assessment WC - Nurse 1 - General Ulcer Measurement Start: 11/15/18 13:28 Freq: Status: Active Protocol: Activity Type Activity Date Activity User E-Sign Co-Sign Detail Recorded Client Recorded Date Recorded By Document 11/29/18 14:39 RB [id number] 11/29/18 14:44 RB 11/29/18 14:39 Wound Center Nurse 1 [Ulcer Assessment] #9- RT BUTTOCK CLUSTER -Combined with other wound No -Current Size (cm) - Length 0.1 -Current Size (cm) - Width 0.1 -Current Size (cm) - Depth 0.1 -Total Square Cm 0.01 -Tunneling No -Undermining/Tunneling No -Circular Undermining No -Exudate Amt Small -Exudate Type Serosanguineous -Wound Margin Distinct, Outline Attached -Granulation Amt Large (67-100%) -Granulation Quality [place] -Slough/Fibrin Yes -Necrosis Amt Small (1-33%) -Necrotic Tissue Type Adherent Slough -Structure Exposed N/A -Texture (Nathalie-wound Skin Appearance) Excoriation -Moisture (Nathalie-wound Skin Appearance Assessed ) -Color (Nathalie-wound Skin Appearance) Assessed -Temperature (Nathalie-wound Skin No Abnormality Appearance) (Pt Warm) -Tenderness on Palpation (Nathalie-wound No Skin Appearance) -Ulcer Cleansing Wound Cleanser -Foul Odor after Cleansing No -Anesthetic Used 4% Lidocaine Solution #8- LEFT UPPER POST THIGH CLUSTER -Combined with other wound No -Current Size (cm) - Length 0.4 -Current Size (cm) - Width 0.5 -Current Size (cm) - Depth 0.1 -Total Square Cm 0.20 -Tunneling No -Undermining/Tunneling No -Circular Undermining No -Exudate Amt Small -Exudate Type Serosanguineous -Wound Margin Flat & Intact -Granulation Amt Medium (34-66%) -Granulation Quality [place] -Slough/Fibrin Yes -Necrosis Amt Small (1-33%) -Necrotic Tissue Type Adherent Slough -Structure Exposed N/A -Texture (Nathalie-wound Skin Appearance) Excoriation -Moisture (Nathalie-wound Skin Appearance Assessed ) -Color (Nathalie-wound Skin Appearance) Assessed -Temperature (Nathalie-wound Skin No Abnormality Appearance) (Pt Warm) -Tenderness on Palpation (Nathalie-wound No Skin Appearance) -Ulcer Cleansing Wound Cleanser -Foul Odor after Cleansing No -Anesthetic Used 4% Lidocaine Solution #7 Right Ischium -Combined with other wound No -Current Size (cm) - Length 3.7 -Current Size (cm) - Width 2.2 -Current Size (cm) - Depth 0.1 -Total Square Cm 8.14 -Tunneling No -Undermining/Tunneling No -Circular Undermining No -Exudate Amt Large -Exudate Type Serosanguineous -Wound Margin Thickened & Rolled Under -Granulation Amt Medium (34-66%) -Granulation Quality [place] -Slough/Fibrin Yes -Necrosis Amt Medium (34-66%) -Necrotic Tissue Type Adherent Slough -Structure Exposed N/A -Texture (Nathalie-wound Skin Appearance) Assessed -Moisture (Nathalie-wound Skin Appearance Maceration ) -Color (Nathalie-wound Skin Appearance) Assessed -Temperature (Nathalie-wound Skin No Abnormality Appearance) (Pt Warm) -Tenderness on Palpation (Nathalie-wound No Skin Appearance) -Ulcer Cleansing Wound Cleanser -Foul Odor after Cleansing No -Anesthetic Used 4% Lidocaine Solution 11/29/18 14:43 Wound Center by Marina Rosenthal pt states [employer] vac alarming leak during night so pt turned vac off at 11pm last night and didn't notify staff and left dressing on during night. Initialized on 11/29/18 14:43 - END OF NOTE WC - Nurse 2 - General Ulcer CM Notes Start: 11/15/18 13:28 Freq: Status: Active Protocol: Activity Type Activity Date Activity User E-Sign Co-Sign Detail Recorded Client Recorded Date Recorded By Document 11/29/18 14:58 AN [id number] 11/29/18 15:02 AN 11/29/18 14:58 Wound Center Nurse 2 [Procedure/Treatment] #9- RT BUTTOCK CLUSTER -Time 14:58 -Correct Patient Yes -Correct Side, Site, Position Yes -Correct Procedure Yes -Procedure Performed Yes -Type of Procedure Debridement -Clinical Debridement Subcutaneous -Post Debridement Size (cm) - Length 5 -Post Debridement Size (cm) - Width 2 -Post Debridement Size (cm) - Depth 0.1 -Total Square Cm 10 -Wound/Ulcer Outcome Not Healed #8- LEFT UPPER POST THIGH CLUSTER -Time 14:59 -Correct Patient Yes -Correct Side, Site, Position Yes -Correct Procedure Yes -Procedure Performed Yes -Type of Procedure Debridement -Clinical Debridement Subcutaneous -Post Debridement Size (cm) - Length 0.3 -Post Debridement Size (cm) - Width 0.6 -Post Debridement Size (cm) - Depth 0.1 -Total Square Cm 0.18 -Wound/Ulcer Outcome Not Healed -Ulcer Cleansing Rinsed/ Irrigated with Saline -Foul Odor after Cleansing No -Bioengineered Tissue No -Bleeding Controlled with Pressure -Offloading Yes -Treatment Response Procedure Tolerated Well #7 Right Ischium -Time 14:59 -Correct Patient Yes -Correct Side, Site, Position Yes -Correct Procedure Yes -Procedure Performed Yes -Type of Procedure Debridement -Clinical Debridement Subcutaneous -Post Debridement Size (cm) - Length 1.0 -Post Debridement Size (cm) - Width 0.5 -Post Debridement Size (cm) - Depth 3.0 -Total Square Cm 0.50 -Wound/Ulcer Outcome Not Healed -Ulcer Cleansing Rinsed/ Irrigated with Saline -Foul Odor after Cleansing No -Bioengineered Tissue No -Bleeding Controlled with Pressure -Offloading Yes -Treatment Response Procedure Tolerated Well [See Physician Procedure note for Specifics] Pain Scale: 0-10 Numeric [Pain] -Is Patient Pain Free? Yes Neurological: Neuro grossly intact Psych/Mental Status: Normal Affect, Appropriate, Alert and oriented to time, place, person, mood and affect Debridement Note Post-Debridement Measurements/Treatment WC - Nurse 2 - General Ulcer CM Notes Start: 11/15/18 13:28 Freq: Status: Active Protocol: Activity Type Activity Date Activity User E-Sign Co-Sign Detail Recorded Client Recorded Date Recorded By Document 11/15/18 14:02 AN [id number] 11/15/18 14:07 AN Document 11/22/18 14:21 AN [id number] 11/22/18 14:29 AN Document 11/29/18 14:58 AN [id number] 11/29/18 15:02 AN 11/15/18 11/22/18 11/29/18 14:02 14:21 14:58 Wound Center Nurse 2 #9- RT BUTTOCK CLUSTER -Time 14:21 14:58 -Correct Patient Yes Yes -Correct Side, Site, Position Yes Yes -Correct Procedure Yes Yes -Procedure Performed Yes Yes -Type of Procedure Debridement Debridement -Clinical Debridement Subcutaneous Subcutaneous -Post Debridement Size (cm) - Length 5.0 5 -Post Debridement Size (cm) - Width 2.0 2 -Post Debridement Size (cm) - Depth 0.1 0.1 -Total Square Cm 10.00 10 -Wound/Ulcer Outcome Not Healed Not Healed -Ulcer Cleansing Rinsed/ Irrigated with Saline -Offloading Yes #8- LEFT UPPER POST THIGH CLUSTER -Time 14:04 14:22 14:59 -Correct Patient Yes Yes Yes -Correct Side, Site, Position Yes Yes Yes -Correct Procedure Yes Yes Yes -Procedure Performed Yes Yes Yes -Type of Procedure Debridement Debridement Debridement -Clinical Debridement Subcutaneous Subcutaneous Subcutaneous -Post Debridement Size (cm) - Length 1.0 0.5 0.3 -Post Debridement Size (cm) - Width 1.0 0.8 0.6 -Post Debridement Size (cm) - Depth 0.1 0.1 0.1 -Total Square Cm 1.00 0.40 0.18 -Wound/Ulcer Outcome Not Healed Not Healed Not Healed -Ulcer Cleansing Rinsed/ Irrigated with Saline -Foul Odor after Cleansing No -Bioengineered Tissue No -Bleeding Controlled with Pressure Pressure -Offloading Yes Yes Yes -Treatment Response Procedure Procedure Tolerated Well Tolerated Well #7 Right Ischium -Time 14:06 14:27 14:59 -Correct Patient Yes Yes Yes -Correct Side, Site, Position Yes Yes Yes -Correct Procedure Yes Yes Yes -Procedure Performed Yes Yes Yes -Type of Procedure Debridement Debridement Debridement -Clinical Debridement Subcutaneous Subcutaneous Subcutaneous -Post Debridement Size (cm) - Length 5.0 4.8 1.0 -Post Debridement Size (cm) - Width 3.0 2.7 0.5 -Post Debridement Size (cm) - Depth 2.2 2.0 3.0 -Total Square Cm 15.00 12.96 0.50 -Wound/Ulcer Outcome Not Healed Not Healed Not Healed -Ulcer Cleansing Rinsed/ Rinsed/ Rinsed/ Irrigated with Irrigated with Irrigated with Saline Saline Saline -Foul Odor after Cleansing No No No -Bioengineered Tissue Yes Yes No -Type of bioengineered Tissue [id number] -Expiration Date 11/22/18 -Product Lot Number [id number] -Percent Used 100 -Bleeding Controlled with Pressure Pressure Pressure -Offloading Yes Yes Yes -Treatment Response Procedure Procedure Procedure Tolerated Well Tolerated Well Tolerated Well Pain Scale: 0-10 Numeric Is Patient Pain Free? Yes Yes Yes Wound debrided: Stage IV pressure injury right ischium Laterality: Right Type of Debridement: Excisional debridement Anesthesia Used: 5% Lidocaine Gel Depth: in the subcutaneous layer, to muscle Percentage of wound debrided: 100 Instrument Used: 7mm curette Tissue Removed: Slough and devitalized tissue Severity: Fat Layer Exposed Amount of bleeding with debridement: Mild Bleeding Controlled with: Pressure Patient tolerated procedure well - Additional Wound Wound debrided: Stage II pressure injury right buttock Type of Debridement: Excisional debridement Anesthesia Used: 5% Lidocaine Gel Depth: in the subcutaneous layer Percentage of wound debrided: 100 Instrument Used: 7mm curette Tissue Removed: Slough and devitalized tissue Severity: Fat Layer Exposed Amount of bleeding with debridement: Mild Bleeding Controlled with: Pressure Patient tolerated procedure: Patient tolerated procedure well - Additional Wound Wound debrided: Skin ulcer to left thigh Type of Debridement: Excisional debridement Anesthesia Used: 5% Lidocaine Gel Depth: in the subcutaneous layer Percentage of wound debrided: 100 Instrument Used: 7mm curette Tissue Removed: Slough and devitalized tissue Severity: Fat Layer Exposed Amount of bleeding with debridement: Mild Bleeding Controlled with: Pressure Patient tolerated procedure: Patient tolerated procedure well Assessment/Plan Active Problems Skin ulcer of left thigh with fat layer exposed (Acute) Debility (Chronic) Right ischial pressure sore, stage 4 (Chronic) COPD (chronic obstructive pulmonary disease) (Chronic) Assessment: Nonhealing right ischium pressure ulcer, stage IV. Stage II pressure ulcer right buttock healed on 11/01/2018. Furuncle left posterior thigh now open and draining and a cluster nonhealing ulcer Plan: The patient was seen and examined at the wound center today and was updated on the plan of care. A subcutaneous/muscular debridement was performed today. The patient tolerated the procedure well. The patients wound care will consist of: Wound VAC on hold at this time due to surrounding excoriation, Aquacel Ag change daily/PRN to all ulcers and cover with gauze. Wound cultures were collected prior and showed MRSA, Proteus, E. coli, anaerobic cocci, and Prevotella. Patient completed course of Augmentin and doxycycline. Baseline bloodwork viewed from September 2018 and demonstrated a low prealbumin. Patient was advised to increase his supplemental protein intake to 3-4 drinks per day. Given the delayed wound healing and the fact that his wound care has actually been going on now for approximately 2 years per patient report, will apply for the use of an advanced skin substitute. Patient educated on the importance of diet on wound healing and instructed to increase protein and vitamin C intake. Patient verbalized understanding. Patient will follow up at wound healing center in one week or sooner if needed. Advised again on the importance of offloading and position changes at least every 2 hours. This message was relayed to the nursing facility as well. Will also request records from [facility] for continuity of care. Patient still has yet to have a follow-up scheduled with [facility] plastic surgery, therefore will refer to plastic surgery Dr. Campbell for evaluation of muscle flap. This note was generated with [employer] dictation software. It may contain incorrect words, spelling, and punctuation that were not noted in checking the note before signing. Code Visit 111xxx-113xx: [id number] Sue musc/fascia 20 sq cm/<
== END 2018-12-10 23:59 ==
LOC: WC 14:15
PROVIDERS: Family Provider Internal Medicine; PCP Internal Medicine; Visit Provider Nurse Practitioner Family
DX: I73.9 Peripheral vascular disease, unspecified (principal); J44.9 Chronic obstructive pulmonary disease, unspecified; L89.214 Pressure ulcer of right hip, stage 4; Z93.3 Colostomy status; L02.92 Furuncle, unspecified; Z87.891 Personal history of nicotine dependence; L97.122 Non-pressure chronic ulcer of left thigh with fat layer exposed; Z86.14 Personal history of Methicillin resistant Staphylococcus aureus infection
CPT/HCPCS: 11042; 11045; 15271; Q4196

== ENCOUNTER 2018-12-03 08:03 | Inpatient (IN) | payer MEDICAID, SELFPAY ==
[2018-12-03] VITALS (12 sets, daily range): BP systolic 102–144; BP diastolic 53–87; PULSE 101–115; RESP 13–20; TEMP 36.8–37.7; O2SAT 87–96; BMI 30.2; BMI 29.0; BMI 29.1
--- NOTE | 2018-12-03 08:17 | EKG12_ITS ---
Test Reason : FEVER, SEPSIS R/O Blood Pressure : / mmHG Vent. Rate : 109 BPM Atrial Rate : 109 BPM P-R Int : 136 ms QRS Dur : 100 ms QT Int : 372 ms P-R-T Axes : 009 042 035 degrees QTc Int : 500 ms Sinus tachycardia Otherwise normal ECG Confirmed by RABIA SARABIA, WAYNE ([id number]), department editor ALEX LASSITER ([id number]) on 12/05/2018 10:42:02 AM Referred By: Patsy Parker Confirmed By:WAYNE CAMARILLO MD
--- NOTE | 2018-12-03 08:18 | VDLE_ITS ---
Reason For Study: Pain Procedure LEFT Exam performed portable in ED. GSV is normal. The study was technically difficult. CFV is compressible, spontaneous, phasic, A preliminary report was called and/or faxed competent, and demonstrates normal to Davin. augmentation. FV is compressible, spontaneous, phasic, competent and demonstrates normal augmentation. POP V is compressible, spontaneous, phasic, competent and demonstrates normal augmentation. T/P Trunk is compressible. PTV is compressible. LT PerV is compressible. Interpretation Summary There is no evidence of left lower extremity deep vein thrombosis. Left great saphenous vein appears patent and compressible segmentally. Technically difficult exam Ordering Physician: Rosalba Jin Referring Physician: Winnie Gonzales Performed By: Caroline Hull RVT
[2018-12-03] MEDS: 0.9% Normal Saline 1,000 ML 1000 ML IV (08:30)
--- NOTE | 2018-12-03 08:33 | ED.RN ---
pt is rude to staff.
--- NOTE | 2018-12-03 08:41 | ED.VISSUMM ---
- ER Visit Summary Date of Service: 12/03/18 Chief Complaint: Fever History of Present Illness: The patient is a 63 M presenting with fever. Patient was sent in by long-term for fever and concern for sepsis. Patient states he has not felt well for the past 3 days. He has had a nonproductive cough, dyspnea. He denies chest pain. Denies abdominal pain. He complains of left thigh pain. He has a history of previous femur fracture with surgical repair. He denies hip pain. He has wounds that are currently being treated at the wound clinic. He had his wound VAC removed on . He had debridement at that time. He recently completed a course of Augmentin and doxycycline. His cultures grew out MRSA. He is awaiting referral to Dr. Mesa for muscle flap. He had a temperature up to 101 at the long-term. He had Tylenol just prior to arrival. Physical Examination vitals are stable. Heart rate 104. Pulse ox 87% on room air. Patient is afebrile. Alert no acute distress. HEENT exam is unremarkable. Neck is supple. No meningismus Lungs are clear and equal bilaterally. Heart is regular and tachycardic Abdomen is soft nontender nondistended. Back: Pressure ulcer right buttock Extremities left anterior thigh mild erythema and tenderness. No hip tenderness. Dopplerable PT/DP pulses Skin is warm and dry. No focal neurologic deficit. Remainder of exam is unremarkable. Emergency Department Course and Treatment: Patient was given IV fluids. Blood cultures were sent. CBC shows white count 16.2, hemoglobin 8.6. Chemistry shows sodium 130, creatinine 0.60. Urinalysis unremarkable. Lactic acid is normal. EKG is sinus tachycardia rate of 109. ESR 67, CRP 218. Chest x-ray shows no infiltrate. Left femur x-ray shows soft tissue swelling with non-complete healing. Venous Doppler shows no evidence of DVT. Wound cultures were reviewed. He was given vancomycin and Zosyn. Discussed with the hospitalist for admission. Disposition: Admission Impression: Right buttock wound, sepsis This note was generated with [employer] dictation software. It may contain incorrect words, spelling, and punctuation that were not noted in review of the chart prior to signing ED Disposition - Plan for ED Patient: Referrals: Winnie Gonzales MD [Primary Care Provider] -
[2018-12-03 08:49] LABS: Erythrocyte Sedimentation Rate 67 mm/hr (0-20)
[2018-12-03 08:51] LABS: Absolute Lymphocyte Count 0.77 X10^3/uL (0.83-4.51); Absolute Neutrophil Count 13.8 X10^3/uL (2.0-7.7); Basophil# 0.01 X10^3/uL; Basophil% 0.1 % (0-1); Eosinophil# 0.02 X10^3/uL; Eosinophils% 0.1 % (0-5); Hematocrit 26.9 % (40-54); Hemoglobin 8.6 g/dL (13.0-16.5); Lymphocyte # 0.77 X10^3/ul (4.0); Lymphocyte % 4.7 % (19-41); Mean Corpuscular Hgb 26.8 pg (27.0-32.0); Mean Corpuscular Volume 83.8 fL (80-94); Mean Platelet Vol. 8.2 fl (6.2-12.0); Monocyte# 1.43 X10^3/uL; Monocyte% 8.8 % (0-10); NRBC Flagged by Analyzer 0 % (0-5); Neutrophil # 13.83 X10^3/uL (2.7-7.7); Neutrophil % 85.2 % (47-70); Platelet Count 427 K/mm3 (150-450); RBC Distribution Width CV 17.4 % (11.6-14.6); RBC Distribution Width SD 53.5 fl (35.1-43.9); Red Blood Count 3.21 M/mm3 (4.6-6.2); White Blood Count 16.2 K/mm3 (4.4-11.0)
[2018-12-03 09:06] LABS: Mucous, Urine 0 SEEN /hpf (<or=2+); Red Blood Cells-Urine 0 SEEN /hpf (0-5); Squamous Epithelial Cells - UA 0 SEEN /hpf (0-5); White Blood Cells 0 SEEN /hpf (0-5)
[2018-12-03 09:06] LABS: Anion Gap 10 (5-15); BUN 15 mg/dL (7-18); BUN/Creat Ratio 25.2 RATIO (10-20); Calcium,Total 8.5 mg/dL (8.5-10.1); Chloride 94 mmol/L (98-107); EST Glomerular Filtration Rate 145 mL/min (>60); Est Glom Filt Rate - Afr Amer 176 mL/min (>60); Estimated Creatinine Clearance 116.29 ml/min; Glucose 100 mg/dL (74-106); Potassium 3.9 mmol/L (3.5-5.1); Sodium Level 130 mmol/L (136-145)
[2018-12-03 09:07] LABS: Color, Urine Yellow (Yellow); Glucose, Dipstick Normal (Normal); Ketone-Dipstick 15 mg/dl (Negative); Leukocyte Esterase-Dipstick Negative /ul (Negative); Nitrite-Dipstick Negative (Negative); Occult Blood-Urine Negative /ul (Negative); Protein-Dipstick 15 mg/dl (Negative); Urine Bilirubin Dipstick Negative (Negative); Urine Clarity Clear (Clear); Urine Urobilinogen Normal (Normal)
[2018-12-03 09:12] LABS: Bacteria RARE /hpf (None Seen)
--- NOTE | 2018-12-03 09:20 | RAD_ITS ---
STUDY: X-RAY CHEST REASON FOR EXAM: Male, 63 years old. Fever. TECHNIQUE: Single AP portable view of the chest. COMPARISON: Comparison is made with prior examination dated September 08, 2018. FINDINGS: EKG electrodes are seen. Mild degree of increased bilateral perihilar markings. This may represent parahilar bronchitis. There is no demonstrated pleural abnormality. Normal size heart. Normal mediastinum and andrea. Normal visualized pulmonary arteries. There is atherosclerotic tortuosity of the aortic arch and descending thoracic aorta. There are degenerative changes of the visualized thoracic spine. Normal visualized ribs, clavicles, and shoulders. There is no demonstrated abnormality of the visualized soft tissue structures of the upper abdomen. RAD/Chest 1 View (Portable) IMPRESSION: Mild degree of increased bilateral perihilar markings suggestive bilateral perihilar bronchitis. No focal infiltrate is seen. Electronically Signed: Aayush Ibarra, at 9:53 EDT , Service support ,
--- NOTE | 2018-12-03 09:20 | RAD_ITS ---
STUDY: X-RAY - LEFT FEMUR REASON FOR STUDY: Male, 63 years old. Fever. MRSA at the site of the wound. TECHNIQUE: 2 view(s) of the femur. COMPARISON: Comparison is made with prior examination dated April 19, 2018. FINDINGS: The patient is status post left total hip replacement. There is good alignment. Since prior study, an intramedullary jesus fixation device was placed in the femur. The fracture in the mid distal diaphysis of the femur is well aligned although the healing is not complete at this time. Vascular calcification. Soft tissue swelling. RAD/Femur Min 2 Views IMPRESSION: Soft tissue swelling and vascular calcification. Status post left total hip replacement and left intramedullary jesus fixation of a comminuted fracture in the mid distal portion of the femur without complete healing at this time. Electronically Signed: Aayush Ibarra, at 10:00 EDT , Service support ,
--- NOTE | 2018-12-03 10:54 | HP.PCM_ITS ---
History of Present Illness Date of Admission: 12/03/18 Chief Complaint: fever The patient is a 63 year old M admitted from his alf with complaint of fever. Patient states he has not been feeling well for the past few days and had had fever which peaked at 104 Fahrenheit. He also had a associated non productive cough with mild shortness of breath. He denied any chest pain, palpitations abdominal pain, diarrhea vomiting. Patient has a history of chronic decubitus ulcers and he had his wound VAC taking off last . He also had debridement done at that time and recently completed a course of Augmentin and doxycycline after his cultures grew out MRSA. He has been awaiting referral to plastic surgery Dr. Mesa for muscle flap. Review of systems is otherwise negative. On admission in the ED, he was saturating at 94% on 2 L of oxygen. He had been saturating at 87% on room air at time of admission in the ED. Pulse rate was 107 respiratory rate was 13. Labs were significant for sodium of 130, sodium is chronically low. Potassium was 3.9 and CRP was 218. Lactic acid was only 1. CBC showed white cell count of 16.2 and hemoglobin of 8.6. Duplex of the lower extremity was negative for any DVT. X- ray of the femur showed soft tissue swelling and vascular calcification. Chest x-ray showed mild degree of increased bilateral jessi-hilar markings suggestive of bilateral perihilar bronchitis with no focal infiltrate seen. He has been admitted to been managed for sepsis likely due to infected decubitus ulcers. 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) Anal cancer (Chronic) Hepatitis C carrier (Chronic) COPD (chronic obstructive pulmonary disease) (Chronic) Anxiety and depression (Chronic) HTN (hypertension) (Chronic) HLD (hyperlipidemia) (Chronic) GERD (gastroesophageal reflux disease) (Chronic) PAD (peripheral artery disease) (Chronic) Allergies chlorthalidone Allergy (Verified 12/03/18 08:16) Other famotidine Allergy (Verified 12/03/18 08:16) Unknown povidone-iodine [From Betadine] Allergy (Verified 12/03/18 08:16) Hives soap Adverse Reaction (Verified 12/03/18 08:16) Hives [id number]-Jfq-Pns Reductase Inhibitor Adverse Reaction (Verified 12/03/18 08:16) MESSED MY LIVER UP adhesive tape Allergy (Uncoded 12/03/18 08:16) Itching/rash Home Medications: Ambulatory Orders Medication Instructions Recorded Aspirin [Aspirin, Baby] 81 mg PO DAILY@0800 03/22/16 Escitalopram Oxalate [Lexapro] 10 mg PO DAILY 03/22/16 Fluticasone 0.05% [Flonase Nasal 2 spray NASAL DAILY 03/22/16 Herrick] Multivitamin [Multiple Vitamins] 1 each PO DAILY 03/22/16 buPROPion XL [Wellbutrin Xl] 300 mg PO DAILY 03/22/16 busPIRone [Buspar] 5 mg PO TID 03/22/16 Tiotropium [place] [Spiriva 2 puff INHALATION DAILY 10/20/16 Respimat] Tizanidine HCl [Zanaflex] 4 mg PO Q8H PRN PRN 12/27/16 Gabapentin [Neurontin] 600 mg PO TID 01/19/18 Metoprolol Tartrate [Lopressor 50 mg PO BID 01/19/18 (beta curt)] Pantoprazole Sodium [Protonix] 40 mg PO DAILY 03/19/18 Testosterone [Androderm 2mg/24 hr] 1 each TD DAILY 03/19/18 Amlodipine [Norvasc] 5 mg PO DAILY 08/22/18 Ascorbic Acid [Vitamin C] 500 mg PO DAILY@0800 08/22/18 Ferrous Gluconate 324 mg PO BID 08/22/18 Zinc Sulfate 220 mg PO DAILY 08/22/18 Doxazosin Mesylate [Cardura] 2 mg PO QHS tab 09/26/18 Argin/Glut/Cahmb/Collag/Mv-Min 1 pack BC TID 10/18/18 [Chuy Packet] Cholecalciferol (VIT D3) [Vitamin 1,000 unit PO DAILY 10/18/18 D] Ezetimibe [Zetia] 10 mg PO DAILY 10/18/18 Ondansetron HCl [Zofran] 4 mg PO Q8H PRN PRN 10/18/18 Acetaminophen 325 mg PO Q4H 12/03/18 Hydroxyzine Pamoate [Vistaril] 25 mg PO TID PRN PRN 12/03/18 Ibuprofen [Motrin] 800 mg PO Q8H PRN PRN 12/03/18 Mag Hydrox/Al Hydrox/Simeth 15 ml PO Q4H PRN PRN 12/03/18 [Mylanta II] Magnesium Hydroxide [Milk Of 30 ml PO DAILY PRN PRN 12/03/18 Magnesia] Oxycodone [Oxyir] 5 mg PO Q4H PRN PRN 12/03/18 Surgical History: total hip arthroplasty - left, total knee arthroplasty, - - 12/30/16 Surgical preparation right gluteal/ischial area with excision radiation pressure sore abscess wound and partial ostectomy for osteomyelitis (52.5 cm2), 06/08/17 Excision radiation pressure sore abscess ulcer right ischial area, Stage IV, with partial ostectomy for osteomyelitis, 10/17/17 Excision radiation pressure sore abscess ulcer right ischial area, Stage IV, with partial ostectomy for osteomyelitis. Psychiatric History: No pertinent psych hx Smoking Status: Former smoker Alcohol: None Drugs: None - *Family History Maternal History Items: - - Denies any marked maternal or paternal family history including DM, HTN, HD. Paternal History Items: - - Denies any marked maternal or paternal family history including DM, HTN, HD. Review of Systems Constitutional: Reports: Fever, Malaise, Weakness. Denies: Anorexia, Chills, Fatigue Eyes: Denies: Blurred vision HEENT: Denies: Head Aches, Sinus Congestion, Sinus Drainage Cardiovascular: Denies: Chest Pain, Palpitations Respiratory: Denies: Cough, Shortness of Breath, Shortness of breath at rest, Shortness of breath upon exertion, Sputum production Gastrointestinal: Denies: Abdominal Pain, Nausea, Vomiting Genitourinary: Denies: Dysuria Musculoskeletal: Reports: Muscle pain - complains of left thigh pain. Denies: Arm Pain, Back Pain, Foot Pain, Hand Pain, Joint Pain, Joint stiffness, Joint swelling, Joint Tenderness Skin: Reports: Wounds - decubitus ulcers. Denies: Rash Neurological: Denies: Numbness, Tingling, Focal weakness Psychiatric: Denies: Anxiety, Depression, Homicidal Ideations, Suicidal Ideations Hematologic/ Lymphatic: Denies: Easy Bruising, Easy Bleeding VTE Information - Inpt Only VTE Present on Admission: No VTE Pharm Prophylaxis ordered?: Yes - Physical Exam General: Alert, Oriented x3, Cooperative, No apparent distress HEENT: Atraumatic, PERRLA, EOMI, Normocephalic Oral: Moist Mucosa Neck: Supple, No JVD, Negative Carotid Bruits Lungs: Clear to auscultation, Normal air movement, No rhonchi, No wheeze, No rales Cardiovascular: Regular Rhythm, Normal S1, Normal S2, No murmurs, Tachycardic Abdomen: Bowel Sounds Present, Soft, Non Tender, Non-Distended, - - colostomy bag Extremities: No clubbing, No cyanosis, No edema, Capillary Refill Less than 3 Seconds Skin: Ulcer/ Wound - decubitus ulcers on right buttock- grade 3, with slough in floor of ulcer Musculoskeletal: No Tenderness to Palpation of Joints or Extremities Lymphatic: No Cervical, Supraclavicular, or Inguinal Adenopathy Neurological: Cranial nerves II-XII grossly intact, Neuro grossly intact Psych/Mental Status: Normal Affect, Appropriate, Alert and oriented to time, place, person, mood and affect Vital Signs Temp Pulse Resp BP Pulse Ox 98.9 F 107 H 13 134/69 H 94 12/03/18 08:04 12/03/18 10:15 12/03/18 08:04 12/03/18 10:15 12/03/18 10:15 Oxygen Flow Rate (L/min) 2 Oxygen Delivery Method Nasal Cannula Weight: 192 lb 14.472 oz Body Mass Index (BMI) 30.2 Intake and Output for Last 24 Hours 12/01/18 12/02/18 12/03/18 23:59 23:59 23:59 Output Total 1100 / 1100 Balance -1100 / -1100 Laboratory Tests Past 24 Hrs 12/03/18 12/03/18 12/03/18 08:30 08:30 08:30 WBC 16.2 H RBC 3.21 L Hgb 8.6 L Hct 26.9 L MCV 83.8 MCH 26.8 L MCHC 32.0 RDW Std Deviation 53.5 H RDW Coeff of [place] 17.4 H Plt Count 427 MPV 8.2 Immature Gran % (Auto) 1.100 H Neut % (Auto) 85.2 H Lymph % (Auto) 4.7 L [place] % (Auto) 8.8 Eos % (Auto) 0.1 Baso % (Auto) 0.1 Absolute Neuts (auto) 13.8 H Absolute Lymphs (auto) 0.77 L Nucleated RBC % 0 ESR 67 H Sodium 130 L Potassium 3.9 Chloride 94 L Carbon Dioxide 26.0 Anion Gap 10 BUN 15 Creatinine 0.60 L Estim Creat Clear Calc 116.29 Est GFR (MDRD) Af Amer 176 Est GFR (MDRD) Non-Af 145 BUN/Creatinine Ratio 25.2 H Glucose 100 Lactic Acid 1.0 Calcium 8.5 C-React Prot Ext Range 218.00 H Urine Color Urine Clarity Urine pH Ur Specific [place] Urine Protein Urine Glucose (UA) Urine Ketones Urine Occult Blood Urine Nitrite Urine Bilirubin Urine Urobilinogen Ur Leukocyte Esterase Urine RBC Urine WBC Ur Squamous Epith Cells Urine Bacteria Urine Mucus 12/03/18 08:55 WBC RBC Hgb Hct MCV MCH MCHC RDW Std Deviation RDW Coeff of [place] Plt Count MPV Immature Gran % (Auto) Neut % (Auto) Lymph % (Auto) [place] % (Auto) Eos % (Auto) Baso % (Auto) Absolute Neuts (auto) Absolute Lymphs (auto) Nucleated RBC % ESR Sodium Potassium Chloride Carbon Dioxide Anion Gap BUN Creatinine Estim Creat Clear Calc Est GFR (MDRD) Af Amer Est GFR (MDRD) Non-Af BUN/Creatinine Ratio Glucose Lactic Acid Calcium C-React Prot Ext Range Urine Color Yellow Urine Clarity Clear Urine pH 6.0 Ur Specific [place] 1.010 Urine Protein 15 H Urine Glucose (UA) Normal Urine Ketones 15 H Urine Occult Blood Negative Urine Nitrite Negative Urine Bilirubin Negative Urine Urobilinogen Normal Ur Leukocyte Esterase Negative Urine RBC 0 SEEN Urine WBC 0 SEEN Ur Squamous Epith Cells 0 SEEN Urine Bacteria RARE Urine Mucus 0 SEEN Diagnostic Data Chest X-Ray 12/03/18 09:20 IMPRESSION: Mild degree of increased bilateral perihilar markings suggestive bilateral perihilar bronchitis. No focal infiltrate is seen. Electronically Signed: Aayush Ibarra, at 9:53 EDT , Service support , Femur X-Ray 12/03/18 09:20 IMPRESSION: Soft tissue swelling and vascular calcification. Status post left total hip replacement and left intramedullary jesus fixation of a comminuted fracture in the mid distal portion of the femur without complete healing at this time. Electronically Signed: Aayush Ibarra, at 10:00 EDT , Service support , Assessment/Plan All Active Problems Pressure injury of right buttock, stage 2 (Acute) Skin ulcer of left thigh with fat layer exposed (Acute) Pneumonia (Acute) SBO (small bowel obstruction) (Acute) Hypotension (Acute) Hyponatremia (Acute) 63 y/o male admitted with a complaint of fever 1. Sepsis due to infected decubitus ulcers * admit to PCU with telemetry * SIRS criteria is 2/4 (tachycardia and leucocytosis-16.2) * recently had wound vac removed 4 days ago * CRP is elevated at 218 * hydrate with IVF NS per sepsis protocol * IV vancomycin and IV zosyn * get blood cultures * UA was negative for any UTI * CXR showed no infiltrate and showed mild degree of increased bilateral perihilar markings suggestive of bilateral perihilar bronchitis * wound previously [id number] MRSA, Proteus and E coli * Wound care consult. Has a diverting colostomy in place. * 2. Hyponatremia: Chronic. Urine is 130 today. Sodium usually is around 133. Hydrate and monitor. 3. Chronic anemia: Hemoglobin is 8.6. Baseline is around 9. Will monitor. * 4. Hypertension: On amlodipine and metoprolol. 5. Hyperlipidemia: Ezetimibe. 6. Depression: On BuSpar, Lexapro and Wellbutrin. DVT prophylaxis: lovenox Code status: Code Visit Inpatient E&M: 46182 Init Hosp L3
--- NOTE | 2018-12-03 10:56 | NURSING ---
PCU SEPSIS, INFECTED DECUBITUS ULCERS SERGIO
--- NOTE | 2018-12-03 11:02 | NURSING ---
Addendum entered by Suzanne Joseph 12/03/18 11:12: PER DR HILL, ROOM 126 Original Note: 325
--- NOTE | 2018-12-03 11:15 | NURSING ---
DR HILL IN ROOM
[2018-12-03] MEDS: Ipratropium 0.5 MG/2.5 ML SOLUTION INHALATION ×2 (13:26→19:31)
--- NOTE | 2018-12-03 13:41 | PCM.RX.CS ---
Consult Pharmacy has been consulted to manage selected antiobiotic: Vancomycin Type of Consult: New start Suspected Infection: Sepsis, Skin/Soft tissue Prior Doses of Antibiotics Received/Current Regimen: Vancomycin 1250mg IV x1 in the ER on 12/03/18 at 1213 Labs: Sodium 130 mmol/L (136-145) L 12/03/18 08:30 Potassium 3.9 mmol/L (3.5-5.1) 12/03/18 08:30 Chloride 94 mmol/L (98-107) L 12/03/18 08:30 Carbon Dioxide 26.0 mmol/L (21.0-32.0) 12/03/18 08:30 Anion Gap 10 (5-15) 12/03/18 08:30 BUN 15 mg/dL (7-18) 12/03/18 08:30 Creatinine 0.60 mg/dL (0.70-1.30) L 12/03/18 08:30 Est GFR (MDRD) Af Amer 176 mL/min (>60) 12/03/18 08:30 Est GFR (MDRD) Non-Af 145 mL/min (>60) 12/03/18 08:30 BUN/Creatinine Ratio 25.2 RATIO (10-20) H 12/03/18 08:30 Glucose 100 mg/dL (74-106) 12/03/18 08:30 Weight used for dosin kg Estimated Creatinine Clearance: 116ml/min Goal Trough: 15-20 mcg/mL Pharmacy Plan for Drug Dosing: Pt has an ordered trough of 15-20. He did receive a 1250mg IV dose of Vancomycin in the ER on 12/03/18 at 1213. Per pharmacy dosing guidelines, pt is to receive Vancomycin 1000mg IV q8h with a trough before the 4th total dose. A loading dose of 25mg/kg was ordered for the pt. Since he did receive a dose in the ER that was not equal to a 25mg/kg loading dose, his 1st maintenance dose will be started early. Pharmacy Service will continue to monitor and adjust dosing as required. Follow-Up Labs: Trough Vancomycin - 12/04/18 at 0930
[2018-12-03] MEDS: oxyCODONE 5 MG Tablet PO ×3 (13:58→22:15)
[2018-12-03] MEDS: 0.9% Normal Saline 1,000 ML 150 ML IV ×2 (13:59→22:12)
[2018-12-03] MEDS: busPIRone 5 MG Tablet PO ×2 (15:05→22:14)
[2018-12-03] MEDS: Acetaminophen 325 MG Tablet PO ×3 (15:05→22:15)
[2018-12-03] MEDS: Ibuprofen 400 MG Tablet 800 MG PO (15:10)
--- NOTE | 2018-12-03 15:31 | NURSING ---
wound photo: right ischium
[2018-12-03 16:44] LABS: Probe Check PASS; Staph aureus DNA By PCR POSITIVE (Negative)
[2018-12-03 16:45] LABS: M R Staph aureus DNA By PCR POSITIVE (Negative)
[2018-12-03] MEDS: Vancomycin IV 1,000 MG/200 ML BAG 200 MG IV (18:07)
[2018-12-03] MEDS: Gabapentin 800 MG Tablet 600 MG PO (18:13)
[2018-12-03] MEDS: Ferrous Gluconate 324 MG Tablet PO (18:14)
--- NOTE | 2018-12-03 22:15 | NURSING ---
This RN explained to patient that he can not have tylenol, oxyir and motrin at the same time. Patient was unhappy and stated that he was not happy. Patient was inappropriate, angry and stated he would become combative with this RN because he waited to long for his his pain medications and the beeping on his IV was driving him crazy.
--- NOTE | 2018-12-03 23:31 | NURSING ---
Patient has refused to be turned every two hours by the [employer] MAKING MACHINE OPERATOR and this RN. Importance of turning every two hours was explained to patient and he still refused.
[2018-12-04] VITALS (12 sets, daily range): BP systolic 113–141; BP diastolic 55–74; PULSE 88–119; RESP 14–18; TEMP 36.9–37.7; O2SAT 90–97
[2018-12-04] MEDS: Ibuprofen 400 MG Tablet 800 MG PO (00:35)
[2018-12-04] MEDS: Vancomycin IV 1,000 MG/200 ML BAG 200 MG IV ×2 (02:30→11:35)
[2018-12-04] MEDS: Acetaminophen 325 MG Tablet PO ×3 (02:32→15:57)
[2018-12-04] MEDS: busPIRone 5 MG Tablet PO ×2 (06:19→15:57)
[2018-12-04] MEDS: Ipratropium 0.5 MG/2.5 ML SOLUTION INHALATION (07:40)
[2018-12-04 07:49] LABS: Absolute Lymphocyte Count 0.85 X10^3/uL (0.83-4.51); Absolute Neutrophil Count 13.6 X10^3/uL (2.0-7.7); Basophil# 0.03 X10^3/uL; Basophil% 0.2 % (0-1); Eosinophil# 0.14 X10^3/uL; Eosinophils% 0.8 % (0-5); Hematocrit 26.6 % (40-54); Hemoglobin 8.5 g/dL (13.0-16.5); Lymphocyte # 0.85 X10^3/ul (4.0); Lymphocyte % 5.2 % (19-41); Mean Corpuscular Volume 84.4 fL (80-94); Mean Platelet Vol. 8.2 fl (6.2-12.0); Monocyte# 1.55 X10^3/uL; Monocyte% 9.4 % (0-10); NRBC Flagged by Analyzer 0 % (0-5); Neutrophil # 13.64 X10^3/uL (2.7-7.7); Neutrophil % 82.7 % (47-70); POSITIVE DIFFERENTIAL YES; Platelet Count 469 K/mm3 (150-450); RBC Distribution Width CV 17.5 % (11.6-14.6); RBC Distribution Width SD 54.3 fl (35.1-43.9); Red Blood Count 3.15 M/mm3 (4.6-6.2); White Blood Count 16.5 K/mm3 (4.4-11.0)
[2018-12-04 08:20] LABS: Anion Gap 5 (5-15); BUN 13 mg/dL (7-18); BUN/Creat Ratio 26.7 RATIO (10-20); Calcium,Total 8.6 mg/dL (8.5-10.1); Chloride 101 mmol/L (98-107); Creatinine, Serum 0.49 mg/dL (0.70-1.30); EST Glomerular Filtration Rate 183 mL/min (>60); Est Glom Filt Rate - Afr Amer 222 mL/min (>60); Estimated Creatinine Clearance 142.39 ml/min; Glucose 108 mg/dL (74-106); Potassium 3.6 mmol/L (3.5-5.1); Sodium Level 134 mmol/L (136-145)
[2018-12-04 08:26] LABS: Differential Comment SCANNED
[2018-12-04] MEDS: Gabapentin 800 MG Tablet 600 MG PO ×3 (08:32→15:57)
[2018-12-04] MEDS: Ascorbic Acid 500 MG Tablet PO (08:32)
[2018-12-04] MEDS: Aspirin 81 MG TAB.CHEW PO (08:32)
[2018-12-04] MEDS: Metoprolol Tartrate 5 MG/5 ML Vial 2.5 MG IV (08:33)
--- NOTE | 2018-12-04 10:18 | CT_ITS ---
STUDY: CT SCAN LOWER EXTREMITY LEFT REASON FOR EXAM: Male, 63 years old. Swelling of the left thigh and left knee. Fever. MRSA. History of anal cancer with radioablation therapy and chemotherapy. RADIATION DOSAGE (If Supplied By Facility): CTDIvol = ( 17.22 ) mGy, DLP = ( 1203.51 ) mGycm. Individualized dose optimization techniques were used for this CT.? TECHNIQUE: Multiple axial tomographic images were obtained from the hip joint down to the knee joint without intravenous contrast administration. Axial and coronal reconstruction was obtained. COMPARISON: None. FINDINGS: The patient is status post left total hip and left total knee replacement with intramedullary jesus fixation of the left femur. There is a nondisplaced fracture through the mid distal shaft of the femur. There is some bony callus formation although not complete healing at this time. Mild degree of subcutaneous swelling and the overlying skin thickening in the lateral aspect of the distal thigh. No abnormal fluid collection or mass lesion is seen. There is evidence of atherosclerotic changes of the visualized arteries in the lower extremity. A Walker catheter is seen within the partially filled urinary bladder. The urinary bladder wall is diffusely thickened. Mild fluid distention of the visualized small bowel loops in the pelvis. CT/Extremity Lower WITH Contrast IMPRESSION: Mild degree of subcutaneous edema and skin thickening along the lateral aspect of distal thigh. Status post left total knee and left hip replacement. Status post intramedullary jesus fixation device of a nonhealed fracture of the mid distal shaft of the femur. Electronically Signed: Aayush Ibarra, at 11:41 EDT , Service support ,
[2018-12-04] MEDS: oxyCODONE 5 MG Tablet PO ×2 (10:31→15:58)
--- NOTE | 2018-12-04 10:41 | CASEMGMT ---
Social Work SW met with pt in room and introduced self and role of SW. Pt is current resident of [facility] and plans to return there upon discharge. Pt states he has been there since April and has hopes to eventually return home. Pt confirmed that his mother Remedios Rincon is his primary contact. Pt does not have a living will or healthcare POA. SW offered to provide information or assist with completing documents but pt denies as he has the information but not interest in completing at this time. Phone call to Lynette at [facility] and they are planning on taking pt back and pt will need a new precert. Clinical updates faxed to Lynette. Will continue to follow for SNF placement. Plan: [facility], pending precert ANGEL Diaz
--- NOTE | 2018-12-04 10:42 | NURSING ---
Colostomy appliance changed. peristomal skin with a few areas of irritation noted. cleansed peristomal skin with warm water. pat dry. patient does have some granulomas to the peristomal skin. applied a new flat 1 piece [place] appliance with a small amount of stoma paste. pt tolerated well. stoma sits right at the skin level.
[2018-12-04 10:45] LABS: Vancomycin, Trough Level 11.6 ug/mL (5.0-15.0)
--- NOTE | 2018-12-04 10:45 | ECHOD_ITS ---
Reason For Study: murmur, MRSA bacteremia. Procedure This was a 2D Doppler, Color Flow transthoracic echocardiogram. The study was technically difficult. PT scanned supine due to discomfort of ulcers. Exam performed portable in patient room. Left Ventricle Normal LV size. Left ventricular systolic function is normal. The estimated ejection fraction is 55 %. No evidence for diastolic dysfunction. No regional wall motion abnormalities noted. Right Ventricle Normal RV size. Normal systolic function. Atria Normal left atrium. Normal right atrium. No doppler evidence for ASD. Mitral Valve There is no mitral annular calcification. Normal mitral valve. Trivial mitral valve insufficiency. Tricuspid Valve Normal tricuspid valve. Trivial tricuspid valve insufficiency. Unable to estimate RV systolic pressure/pulmonary artery pressure due to technically difficult study. Aortic Valve Trisinus/trileaflet aortic valve. Mild focal aortic valve calcification. Pulmonic Valve The pulmonic valve is not well visualized. Great Vessels Normal sized aortic root. Pericardium/Pleural No pericardial effusion. MMode/2D Measurements & Calculations LVIDd: 4.4 cm IVSd: 1.1 cm Ao root diam: 3.0 cm LVIDs: 2.8 cm LVPWd: 1.1 cm RVDd: 3.1 cm FS: 35.8 % LAV(MOD-bp): 63.0 ml LA A4 area: 16.0 cm2 LA dimension(2D): 4.2 cm LAV(MOD-bp) Indexed: 32.2 ml/m2 LAV(MOD-sp2): 74.1 ml LAV(MOD-sp4): 46.1 ml RA A4 area: 14.3 cm2 Time Measurements MV dec time: 0.19 sec Doppler Measurements & Calculations MV E max chas: 112.9 cm/sec Lat Peak E' Chas: 13.0 cm/sec Med Peak E' Chas: 9.1 cm/sec MV A max chas: 88.0 cm/sec E/E' lat: 8.7 E/E' med: 12.4 MV E/A: 1.3 Ao V2 max: 189.6 cm/sec LV V1 max: 142.2 cm/sec PA V2 max: 98.8 cm/sec Ao max P.4 mmHg LV V1 max P.1 mmHg Ao V2 mean: 137.9 cm/sec LV V1 mean P.9 mmHg Ao mean P.4 mmHg LV V1 mean: 106.6 cm/sec Ao V2 VTI: 34.0 cm LV V1 VTI: 26.6 cm Interpretation Summary The study was technically difficult. Left ventricular systolic function is normal. The estimated ejection fraction is 55 %. Trivial mitral valve insufficiency. Trivial tricuspid valve insufficiency. Mild focal aortic valve calcification. Unable to estimate RV systolic pressure/pulmonary artery pressure due to technically difficult study. No evidence for diastolic dysfunction. Ordering Physician: Javier Escamilla Referring Physician: Winnie Gonzales Performed By: Dianelys Tamez, HEMANTH, RVT
--- NOTE | 2018-12-04 10:50 | CON.PCM_ITS ---
Problem List (1) MRSA bacteremia Status: Acute Reason for Consult: bacteremia Consulted by: Dr. Parker History of Present Illness: The patient is a 63 year old M with chronic R buttock ulcer, prior L hip replacement, L knee replacement, and L femur jesus placement. Follows at wound care center. In October completed course of doxy and augmentin for wound infection of R ischial ulcer, cxs were (+) mrsa, proteus, ecoli, and anaerobes. Prior h/o 08/2018 of VRE in urine as well. Had been doing well at [facility] until past few days with not feeling well, fever, shakes. Denies any changes to his ulcer. Mild SOB. No abd pain, no n/v/d. Taken to ED, admitted on vanc/zosyn, fever improved here. Reports new pain in L knee with some swelling. Full ROS performed and neg except as noted above. 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) Anal cancer (Chronic) Hepatitis C carrier (Chronic) COPD (chronic obstructive pulmonary disease) (Chronic) Anxiety and depression (Chronic) HTN (hypertension) (Chronic) HLD (hyperlipidemia) (Chronic) GERD (gastroesophageal reflux disease) (Chronic) PAD (peripheral artery disease) (Chronic) Allergies/Adverse Reactions: Allergies chlorthalidone Allergy (Verified 12/03/18 08:16) Other famotidine Allergy (Verified 12/03/18 08:16) Unknown povidone-iodine [From Betadine] Allergy (Verified 12/03/18 08:16) Hives soap Adverse Reaction (Verified 12/03/18 08:16) Hives Qxbrbej-Qqu-Vud Reductase Inhibitor Adverse Reaction (Verified 12/03/18 08:16) MESSED MY LIVER UP adhesive tape Allergy (Uncoded 12/03/18 08:16) Itching/rash Home Medications: Ambulatory Orders Medication Instructions Recorded Aspirin [Aspirin, Baby] 81 mg PO DAILY@0800 03/22/16 Escitalopram Oxalate [Lexapro] 10 mg PO DAILY 03/22/16 Fluticasone 0.05% [Flonase Nasal 2 spray NASAL DAILY 03/22/16 [place]] Multivitamin [Multiple Vitamins] 1 each PO DAILY 03/22/16 buPROPion XL [Wellbutrin Xl] 300 mg PO DAILY 03/22/16 busPIRone [Buspar] 5 mg PO TID 03/22/16 Tiotropium [place] [Spiriva 2 puff INHALATION DAILY 10/20/16 Respimat] Tizanidine HCl [Zanaflex] 4 mg PO Q8H PRN PRN 12/27/16 Gabapentin [Neurontin] 600 mg PO TID 01/19/18 Metoprolol Tartrate [Lopressor 50 mg PO BID 01/19/18 (beta curt)] Pantoprazole Sodium [Protonix] 40 mg PO DAILY 03/19/18 Testosterone [Androderm 2mg/24 hr] 1 each TD DAILY 03/19/18 Amlodipine [Norvasc] 5 mg PO DAILY 08/22/18 Ascorbic Acid [Vitamin C] 500 mg PO DAILY@0800 08/22/18 Ferrous Gluconate 324 mg PO BID 08/22/18 Zinc Sulfate 220 mg PO DAILY 08/22/18 Doxazosin Mesylate [Cardura] 2 mg PO QHS tab 09/26/18 Argin/Glut/Cahmb/Collag/Mv-Min 1 pack BC TID 10/18/18 [Chuy Packet] Cholecalciferol (VIT D3) [Vitamin 1,000 unit PO DAILY 10/18/18 D] Ezetimibe [Zetia] 10 mg PO DAILY 10/18/18 Ondansetron HCl [Zofran] 4 mg PO Q8H PRN PRN 10/18/18 Acetaminophen 325 mg PO Q4H 12/03/18 Hydroxyzine Pamoate [Vistaril] 25 mg PO TID PRN PRN 12/03/18 Ibuprofen [Motrin] 800 mg PO Q8H PRN PRN 12/03/18 Mag Hydrox/Al Hydrox/Simeth 15 ml PO Q4H PRN PRN 12/03/18 [Mylanta II] Magnesium Hydroxide [Milk Of 30 ml PO DAILY PRN PRN 12/03/18 Magnesia] Oxycodone [Oxyir] 5 mg PO Q4H PRN PRN 12/03/18 - Social History SMOKING STATUS:: Former smoker Vital Signs Temp Pulse Resp BP Pulse Ox 98.5 F 113 H 14 113/56 L 93 12/04/18 08:30 12/04/18 08:33 12/04/18 08:30 12/04/18 08:30 12/04/18 08:30 Oxygen Flow Rate (L/min) 2 Oxygen Delivery Method Nasal Cannula Weight: 84.2 kg Body Mass Index (BMI) 29.0 Microbiology Past 72 Hours 12/03/18 08:40 Bacteria Detection (PCR) - Final Blood Culture (Wb) - Right Hand Meth. resistant Staph. aureus Blood Culture - Preliminary Meth. resistant Staph. aureus 12/03/18 14:30 Gram Stain - Final Wound - Aerobic & Anaerobic Swabs Wound Culture - Preliminary Mixed Gram Pos & Gram Neg Org 12/03/18 08:30 Blood Culture - Preliminary Blood Culture (Wb) - Left Hand Staphylococcus aureus Laboratory Tests Past 24 Hrs 12/03/18 12/04/18 12/04/18 14:30 07:20 07:20 WBC 16.5 H RBC 3.15 L Hgb 8.5 L Hct 26.6 L MCV 84.4 MCH 27.0 MCHC 32.0 RDW Std Deviation 54.3 H RDW Coeff of [place] 17.5 H Plt Count 469 H MPV 8.2 Immature Gran % (Auto) 1.700 H Neut % (Auto) 82.7 H Lymph % (Auto) 5.2 L [place] % (Auto) 9.4 Eos % (Auto) 0.8 Baso % (Auto) 0.2 Absolute Neuts (auto) 13.6 H Absolute Lymphs (auto) 0.85 Nucleated RBC % 0 Differential Comment SCANNED Diff Path Review May foll Sodium 134 L Potassium 3.6 Chloride 101 Carbon Dioxide 28.0 Anion Gap 5 BUN 13 Creatinine 0.49 L Estim Creat Clear Calc 142.39 Est GFR (MDRD) Af Amer 222 Est GFR (MDRD) Non-Af 183 BUN/Creatinine Ratio 26.7 H Glucose 108 H Calcium 8.6 Vancomycin Trough S.aureus Protein A PCR POSITIVE H MRSA (PCR) POSITIVE H 12/04/18 09:54 WBC RBC Hgb Hct MCV MCH MCHC RDW Std Deviation RDW Coeff of [place] Plt Count MPV Immature Gran % (Auto) Neut % (Auto) Lymph % (Auto) [place] % (Auto) Eos % (Auto) Baso % (Auto) Absolute Neuts (auto) Absolute Lymphs (auto) Nucleated RBC % Differential Comment Diff Path Review Sodium Potassium Chloride Carbon Dioxide Anion Gap BUN Creatinine Estim Creat Clear Calc Est GFR (MDRD) Af Amer Est GFR (MDRD) Non-Af BUN/Creatinine Ratio Glucose Calcium Vancomycin Trough 11.6 S.aureus Protein A PCR MRSA (PCR) - Other Studies Radiology: [] reviewed Other Studies: [] Route of nutrition/ use of supplements: [] Nutritional Intake: [] IV Site: [] Walker Catheter: [] - Physical Exam General: Alert, Oriented x3, Cooperative, No apparent distress HEENT: Atraumatic, PERRLA, EOMI Neck: Supple, No Nodes Lungs: Clear to auscultation, Normal air movement Cardiovascular: Regular rate, Regular Rhythm, Murmur Abdomen: Soft, Non Tender, Non-Distended Extremities: No edema Skin: Ulcer/ Wound - reviewed photo, R ischium relatively clean, - - no splinter hemorrhages on hands or feet; onychomycosis on 1st toe. Small wound and mild redness/swelling on R 2nd toe. IV Site: Peripheral, without redness Musculoskeletal: - - L knee and femur with swelling, redness, and warmth. Severe pain with L knee flexion. Neurological: Cranial nerves II-XII grossly intact - Assessment/Plan Antibiotics: [] Assessment/Plan: [] sepsis (fever at [facility]CF, leukocytosis, tachycardia) due to MRSA bacteremia with concern for secondary L knee PJI and L femur jesus involvement - Possible source is R ischial ulcer or R 2nd toe wound. Has murmur. Will repeat bcx, check echo, order xray of toe, and recommend ortho consult. May need transfer to [place] given his last orthopedic surgery was there. Continue vanc/zosyn for now. Wound cx from ischium with polymicrobial growth so far. Will follow, thank you, d/w Dr. Parker.
--- NOTE | 2018-12-04 10:58 | RAD_ITS ---
STUDY: X-RAY - RIGHT FOOT CLINICAL: Male, 63 years old. Infection. Questionable vasculitis of the second toe. TECHNIQUE: 2 view(s) of the foot. COMPARISON: None. FINDINGS: There is a plantar calcaneal spur. Normal visualized subtalar, talonavicular, calcaneocuboid, tarsal and tarsometatarsal articulations. There is demineralization of the metatarsi. There is degenerative arthrosis of the metatarsophalangeal joint of the hallux . Normal tibial and fibular sesamoid bones. Normal interphalangeal joint of the great toe. Normal phalanges of the great toe. Normal second through fifth metatarsophalangeal joints. Normal interphalangeal joints and phalanges of the lesser toes. Vascular calcification. Soft tissue swelling of the great toe. RAD/Foot 2 Views IMPRESSION: Demineralization of the visualized osseous structures. No bony destruction is seen. Soft tissue swelling and vascular calcification. Electronically Signed: Aayush Ibarra, at 15:36 EDT , Service support ,
[2018-12-04] MEDS: buPROPion (XL) 300 MG TABLET.XL PO (11:35)
[2018-12-04] MEDS: Ferrous Gluconate 324 MG Tablet PO ×2 (11:35→15:57)
[2018-12-04] MEDS: Pantoprazole Sodium 40 MG Tablet PO (11:36)
[2018-12-04] MEDS: Metoprolol Tartrate 50 MG Tablet PO (11:36)
[2018-12-04] MEDS: Multivitamins,Therapeutic Tablet 1 TABLET PO ×2 (11:36→11:47)
[2018-12-04] MEDS: Ezetimibe 10 MG Tablet PO (11:36)
[2018-12-04] MEDS: Enoxaparin 40 MG/0.4 ML Syringe SC (11:38)
[2018-12-04] MEDS: Escitalopram Oxalate 10 MG Tablet PO (11:39)
[2018-12-04] MEDS: Fluticasone 0.05% 1 SPRAY NASAL.SRY 2 SPRAY NASAL (11:39)
--- NOTE | 2018-12-04 12:46 | PCM.RX.CS ---
<GregBrionna arellano - Last Filed: 12/04/18 12:46> Consult Type of Consult: Follow-up Suspected Infection: Sepsis, Skin/Soft tissue Prior Doses of Antibiotics Received/Current Regimen: Vancomycin IV 1000MG Q8H Labs: Sodium 134 mmol/L (136-145) L 12/04/18 07:20 Potassium 3.6 mmol/L (3.5-5.1) 12/04/18 07:20 Chloride 101 mmol/L (98-107) 12/04/18 07:20 Carbon Dioxide 28.0 mmol/L (21.0-32.0) 12/04/18 07:20 Anion Gap 5 (5-15) 12/04/18 07:20 BUN 13 mg/dL (7-18) 12/04/18 07:20 Creatinine 0.49 mg/dL (0.70-1.30) L 12/04/18 07:20 Est GFR (MDRD) Af Amer 222 mL/min (>60) 12/04/18 07:20 Est GFR (MDRD) Non-Af 183 mL/min (>60) 12/04/18 07:20 BUN/Creatinine Ratio 26.7 RATIO (10-20) H 12/04/18 07:20 Glucose 108 mg/dL (74-106) H 12/04/18 07:20 Vancomycin Trough 11.6 ug/mL (5.0-15.0) 12/04/18 09:54 Microbiology: Microbiology 12/03/18 08:40 Blood Culture (Wb) - Right Hand Bacteria Detection (PCR) - Final Meth. resistant Staph. aureus 12/03/18 08:40 Blood Culture (Wb) - Right Hand Blood Culture - Preliminary Meth. resistant Staph. aureus 12/03/18 14:30 Wound - Aerobic & Anaerobic Swabs Gram Stain - Final 12/03/18 14:30 Wound - Aerobic & Anaerobic Swabs Wound Culture - Preliminary Mixed Gram Pos & Gram Neg Org 12/03/18 08:30 Blood Culture (Wb) - Left Hand Blood Culture - Preliminary Staphylococcus aureus Goal Trough: 15-20 mcg/mL Pharmacy Plan for Drug Dosin. Patient's trough drawn 12/04/18 @ 0954 is 11.6 mg/dL (7.5 hr level). 2. Will increase dose to vancomycin IV 1500mg Q8H based on trough and slight improvement in renal function. 3. Next trough due at 12/05/18 @ 2130 before the 4th dose of the new regimen. Pharmacy Service will continue to monitor and adjust dosing as required. Labs to be done on [date and time ordered]: 12/05/18 @ 2130 <Patsy Parker - Last Filed: 12/04/18 15:24> Consult Labs: Sodium 134 mmol/L (136-145) L 12/04/18 07:20 Potassium 3.6 mmol/L (3.5-5.1) 12/04/18 07:20 Chloride 101 mmol/L (98-107) 12/04/18 07:20 Carbon Dioxide 28.0 mmol/L (21.0-32.0) 12/04/18 07:20 Anion Gap 5 (5-15) 12/04/18 07:20 BUN 13 mg/dL (7-18) 12/04/18 07:20 Creatinine 0.49 mg/dL (0.70-1.30) L 12/04/18 07:20 Est GFR (MDRD) Af Amer 222 mL/min (>60) 12/04/18 07:20 Est GFR (MDRD) Non-Af 183 mL/min (>60) 12/04/18 07:20 BUN/Creatinine Ratio 26.7 RATIO (10-20) H 12/04/18 07:20 Glucose 108 mg/dL (74-106) H 12/04/18 07:20 Vancomycin Trough 11.6 ug/mL (5.0-15.0) 12/04/18 09:54 Microbiology: Microbiology 12/03/18 08:40 Blood Culture (Wb) - Right Hand Bacteria Detection (PCR) - Final Meth. resistant Staph. aureus 12/03/18 08:40 Blood Culture (Wb) - Right Hand Blood Culture - Preliminary Meth. resistant Staph. aureus 12/03/18 14:30 Wound - Aerobic & Anaerobic Swabs Gram Stain - Final 12/03/18 14:30 Wound - Aerobic & Anaerobic Swabs Wound Culture - Preliminary Mixed Gram Pos & Gram Neg Org 12/03/18 08:30 Blood Culture (Wb) - Left Hand Blood Culture - Preliminary Staphylococcus aureus Pharmacy Plan for Drug Dosing: Pharmacy Service will continue to monitor and adjust dosing as required.
--- NOTE | 2018-12-04 14:45 | CASEMGMT ---
SHAHANA faxed PT/OT evaluations to Gopal Moser. Patient is going to be transferred to [facility]. Per patient safety officer, Keisha Moser is already aware as they called in and asked about him. Leeann PAEZ MSW
--- NOTE | 2018-12-04 15:12 | PCM.DC.SUM ---
Discharge Date and Diagnosis - Problem List Patient Problems: Active and Suspected Problems MRSA bacteremia (Acute) Date of Admission: 12/03/18 Date of Discharge: 12/04/18 - Primary Discharge Diagnosis Active and Suspected Problems MRSA bacteremia (Acute) sepsis septic arthritis, femur implant infection - Secondary Discharge Diagnosis Chronic Problems Skin ulcer of elbow with fat layer exposed (Chronic) Decubitus ulcer of left heel, stage 2 (Chronic) Debility (Chronic) Personal history of Methicillin resistant Staphylococcus aureus infection (Chronic) Acute osteomyelitis of right pelvic region (Chronic) History of anal cancer (Chronic) 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, 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) Anal cancer (Chronic) Hepatitis C carrier (Chronic) COPD (chronic obstructive pulmonary disease) (Chronic) Anxiety and depression (Chronic) HTN (hypertension) (Chronic) HLD (hyperlipidemia) (Chronic) GERD (gastroesophageal reflux disease) (Chronic) PAD (peripheral artery disease) (Chronic) Hospital Course and Treatment Imaging Results: 12/04/18 10:18 CT LE [Extremity Lower WITH Contrast] [CT] Stat 12/04/18 10:45 Echo Complete W/ Contrast [ECHO] Routine 12/04/18 10:58 Foot 2 Views [RAD] Routine Consultations 12/03/18 12:03 Consult: Onc/Wound/food porter Routine Comment: Operations: None, - Summary of Care Provided: The patient is a 63 year old M admitted from his retirement with complaint of fever. Patient states he has not been feeling well for the past few days and had had fever which peaked at 104 Fahrenheit. He also had a associated nonproductive cough with mild shortness of breath. He denied any chest pain, palpitations abdominal pain, diarrhea vomiting. Patient has a history of chronic decubitus ulcers and he had his wound VAC taking off last . He also had debridement done at that time and recently completed a course of Augmentin and doxycycline after his cultures grew out MRSA. He has been awaiting referral to plastic surgery Dr. Mesa for muscle flap. Review of systems is otherwise negative. On admission in the ED, he was saturating at 94% on 2 L of oxygen. He had been saturating at 87% on room air at time of admission in the ED. Pulse rate was 107 respiratory rate was 13. Labs were significant for sodium of 130, sodium is chronically low. Potassium was 3.9 and CRP was 218. Lactic acid was only 1. CBC showed white cell count of 16.2 and hemoglobin of 8.6. Duplex of the lower extremity was negative for any DVT. X-ray of the femur showed soft tissue swelling and vascular calcification. Chest x-ray showed mild degree of increased bilateral jessi-hilar markings suggestive of bilateral perihilar bronchitis with no focal infiltrate seen. He has been admitted to been managed for sepsis likely due to infected decubitus ulcers. He was started on IV vancomycin and Zosyn and blood cultures were obtained. The day after admission, patient was noted to have swelling and tenderness as well as erythema of his left thigh and knee. Evaluation of his decubitus ulcer showed that the wound infected. Diagnosis was therefore advised to sepsis due to septic arthritis of the knee and also infection of the left femoral jesus. Orthopedic surgery was consulted and after discussion with Dr. Cadena, decision was made to transfer patient to [facility] where he had the surgery. Of note, blood culture had MRSA in 2 out of [address] of the right lower extremity also showed mild degree of subcutaneous edema and skin thickening along the lateral aspect of the distal thigh. Infectious disease was also consulted. 2D echo was ordered. Patient's primary surgeon at [facility] agreed to accept patient for transfer and was transferred on 12/04/2018. She was seen and examined prior to discharge. He complained of pain and swelling in his left thigh. Fever had resolved. Review of systems otherwise negative. Labs and vitals reviewed. Home medication reviewed and reconciled. o/e: Vital Signs Height 5 ft 7 in Weight: 185 lb 10.067 oz Weight in Pounds 185.6 lbs Pulse Ox 90 Temperature 98.5 F Pulse Rate 109 Respiratory Rate 14 Blood Pressure 113/56 Blood Pressure Position Semi-Fowlers General: Alert, Oriented x3, Cooperative, No apparent distress HEENT: Atraumatic, PERRLA, EOMI, Normocephalic Oral: Moist Mucosa Neck: Supple, No JVD, Negative Carotid Bruits Lungs: Clear to auscultation, Normal air movement, No rhonchi, No wheeze, No rales Cardiovascular: Regular Rhythm, Normal S1, Normal S2, No murmurs, Tachycardic Abdomen: Bowel Sounds Present, Soft, Non Tender, Non-Distended, - - colostomy bag Extremities: No clubbing, No cyanosis, No edema, Capillary Refill Less than 3 Seconds Skin: Ulcer/ Wound - decubitus ulcers on right buttock- grade 3, with slough in floor of ulcer Musculoskeletal: pain, swelling and tenderness of left thigh and knee; has significant pain with movement of LLE Lymphatic: No Cervical, Supraclavicular, or Inguinal Adenopathy Neurological: Cranial nerves II-XII grossly intact, Neuro grossly intact Psych/Mental Status: Normal Affect, Appropriate, Alert and oriented to time, place, person, mood and affect Plan is for transfer to care of Dr Ontiveros, orthopedic surgeon at [facility]. Patient Problems: Active and Suspected Problems MRSA bacteremia (Acute) - Physical Exam Vital Signs Temp Pulse Resp BP Pulse Ox 98.5 F 109 H 14 113/56 L 90 12/04/18 08:30 12/04/18 11:36 12/04/18 08:30 12/04/18 08:30 12/04/18 13:51 Oxygen Flow Rate (L/min) 2 Oxygen Delivery Method Nasal Cannula Weight: 185 lb 10.067 oz Body Mass Index (BMI) 29.0 Intake and Output for Last 24 Hours 12/02/18 12/03/18 12/04/18 23:59 23:59 23:59 Intake Total 3157.5 / 3157.5 1442.5 / 1442.5 Output Total 3100 / 3100 2750 / 2750 Balance 57.5 / 57.5 -1307.5 / -1307.5 Microbiology Past 72 Hours 12/03/18 08:40 Bacteria Detection (PCR) - Final Blood Culture (Wb) - Right Hand Meth. resistant Staph. aureus Blood Culture - Preliminary Meth. resistant Staph. aureus 12/03/18 14:30 Gram Stain - Final Wound - Aerobic & Anaerobic Swabs Wound Culture - Preliminary Mixed Gram Pos & Gram Neg Org 12/03/18 08:30 Blood Culture - Preliminary Blood Culture (Wb) - Left Hand Staphylococcus aureus Laboratory Tests Past 24 Hrs 12/03/18 12/04/18 12/04/18 14:30 07:20 07:20 WBC 16.5 H RBC 3.15 L Hgb 8.5 L Hct 26.6 L MCV 84.4 MCH 27.0 MCHC 32.0 RDW Std Deviation 54.3 H RDW Coeff of Ros[place] 17.5 H Plt Count 469 H MPV 8.2 Immature Gran % (Auto) 1.700 H Neut % (Auto) 82.7 H Lymph % (Auto) 5.2 L [place] % (Auto) 9.4 Eos % (Auto) 0.8 Baso % (Auto) 0.2 Absolute Neuts (auto) 13.6 H Absolute Lymphs (auto) 0.85 Nucleated RBC % 0 Differential Comment SCANNED Diff Path Review May foll Sodium 134 L Potassium 3.6 Chloride 101 Carbon Dioxide 28.0 Anion Gap 5 BUN 13 Creatinine 0.49 L Estim Creat Clear Calc 142.39 Est GFR (MDRD) Af Amer 222 Est GFR (MDRD) Non-Af 183 BUN/Creatinine Ratio 26.7 H Glucose 108 H Calcium 8.6 Vancomycin Trough S.aureus Protein A PCR POSITIVE H MRSA (PCR) POSITIVE H 12/04/18 09:54 WBC RBC Hgb Hct MCV MCH MCHC RDW Std Deviation RDW Coeff of Rosendo Plt Count MPV Immature Gran % (Auto) Neut % (Auto) Lymph % (Auto) [place] % (Auto) Eos % (Auto) Baso % (Auto) Absolute Neuts (auto) Absolute Lymphs (auto) Nucleated RBC % Differential Comment Diff Path Review Sodium Potassium Chloride Carbon Dioxide Anion Gap BUN Creatinine Estim Creat Clear Calc Est GFR (MDRD) Af Amer Est GFR (MDRD) Non-Af BUN/Creatinine Ratio Glucose Calcium Vancomycin Trough 11.6 S.aureus Protein A PCR MRSA (PCR) Discharge Diet: Low fat/ Low Cholesterol Home Medications: Medications to take at Discharge Aspirin [Aspirin, Baby] 81 mg PO DAILY@0800 03/22/16 Escitalopram Oxalate [Lexapro] 10 mg PO DAILY 03/22/16 Fluticasone 0.05% [Flonase Nasal [place]] 2 spray NASAL DAILY 03/22/16 Multivitamin [Multiple Vitamins] 1 each PO DAILY 03/22/16 buPROPion XL [Wellbutrin Xl] 300 mg PO DAILY 03/22/16 busPIRone [Buspar] 5 mg PO TID 03/22/16 Tiotropium [place] [Spiriva Respimat] 2 puff INHALATION DAILY 10/20/16 Tizanidine HCl [Zanaflex] 4 mg PO Q8H PRN PRN 12/27/16 Gabapentin [Neurontin] 600 mg PO TID 01/19/18 Metoprolol Tartrate [Lopressor (beta curt)] 50 mg PO BID 01/19/18 Pantoprazole Sodium [Protonix] 40 mg PO DAILY 03/19/18 Testosterone [Androderm 2mg/24 hr] 1 each TD DAILY 03/19/18 Amlodipine [Norvasc] 5 mg PO DAILY 08/22/18 Ascorbic Acid [Vitamin C] 500 mg PO DAILY@0800 08/22/18 Ferrous Gluconate 324 mg PO BID 08/22/18 Zinc Sulfate 220 mg PO DAILY 08/22/18 Doxazosin Mesylate [Cardura] 2 mg PO QHS tab 09/26/18 Argin/Glut/Cahmb/Collag/Mv-Min [[place] Packet] 1 pack BC TID 10/18/18 Cholecalciferol (VIT D3) [Vitamin D] 1,000 unit PO DAILY 10/18/18 Ezetimibe [Zetia] 10 mg PO DAILY 10/18/18 Ondansetron HCl [Zofran] 4 mg PO Q8H PRN PRN 10/18/18 Acetaminophen 325 mg PO Q4H 12/03/18 Hydroxyzine Pamoate [Vistaril] 25 mg PO TID PRN PRN 12/03/18 Ibuprofen [Motrin] 800 mg PO Q8H PRN PRN 12/03/18 Mag Hydrox/Al Hydrox/Simeth [Mylanta II] 15 ml PO Q4H PRN PRN 12/03/18 Magnesium Hydroxide [Milk Of Magnesia] 30 ml PO DAILY PRN PRN 12/03/18 Oxycodone [Oxyir] 5 mg PO Q4H PRN PRN 12/03/18 Primary Care Physician: Winnie Gonzales MD [Primary Care Provider] - Please follow up with your Primary Care Physician in: one week Disposition: Acute care Hospital Minutes spent on discharge:: 45 Patient Condition:: Stable Medical Necessity - Tobacco Use Smoking Status: Former smoker Meaningful Use Info Meaningful Use Diagnoses (Choose all that apply): None applicable Code Visit Inpatient E&M: 11107 Disch Hosp
[2018-12-04] MEDS: 0.9% Normal Saline 1,000 ML 150 ML IV (15:54)
--- NOTE | 2018-12-04 17:09 | CHAPLAIN ---
patient was eating lunch at time of attempted visit and said he would like patent drafter to come back at another time;
[2018-12-05 16:00] LABS: Pathologist Review Reviewed
== END 2018-12-04 17:00 | disposition short-term general hospital (02) | DRG 349 ==
LOC: ED 08:29 → PCU 11:13
PROVIDERS: Admitting Provider Student in an Organized Health Care Education/Training Program; Emergency Provider Emergency Medicine; Family Provider Internal Medicine; PCP Internal Medicine; Referring Provider Student in an Organized Health Care Education/Training Program; Visit Provider Student in an Organized Health Care Education/Training Program
DX: T84.54XA Infection and inflammatory reaction due to internal left knee prosthesis, initial encounter (principal); M00.062 Staphylococcal arthritis, left knee; A41.02 Sepsis due to Methicillin resistant Staphylococcus aureus; L89.314 Pressure ulcer of right buttock, stage 4; L89.622 Pressure ulcer of left heel, stage 2; L97.122 Non-pressure chronic ulcer of left thigh with fat layer exposed; E87.1 Hypo-osmolality and hyponatremia; D64.9 Anemia, unspecified; J44.9 Chronic obstructive pulmonary disease, unspecified; I10 Essential (primary) hypertension; E78.5 Hyperlipidemia, unspecified; I73.9 Peripheral vascular disease, unspecified; K21.9 Gastro-esophageal reflux disease without esophagitis; F32.9 Major depressive disorder, single episode, unspecified; F41.9 Anxiety disorder, unspecified; Z96.642 Presence of left artificial hip joint; Z96.652 Presence of left artificial knee joint; Z93.3 Colostomy status; Z79.899 Other long term (current) drug therapy; Z86.14 Personal history of Methicillin resistant Staphylococcus aureus infection; Z85.048 Personal history of other malignant neoplasm of rectum, rectosigmoid junction, and anus; Z87.891 Personal history of nicotine dependence
CPT/HCPCS: 36415; 71045; 73552; 73620; 73701; 80048; 80202; 81001; 83605; 85025; 85652; 86140; 87040; 87070; 87075; 87077; 87149; 87186; 87205; 87640; 93005; 93306; 93971; 94640; 94762; 97162; 97166; 97802; 99285; J7030; Q9957; Q9967; A4216

== ENCOUNTER 2019-01-07 13:30 | Outpatient (RCR) | payer MEDICAID, SELFPAY ==
[2018-12-03 11:47] VITALS: BMI 29.0
[2018-12-11 01:01] VITALS: BP 143/63; PULSE 99; RESP 18; TEMP 37.7
[2018-12-20 13:30] VITALS: BP 128/69; PULSE 65; RESP 16; TEMP 36.9; BMI 29.0
--- NOTE | 2018-12-20 20:18 | PN.PCM_ITS ---
(1) Right ischial pressure sore, stage 4 Status: Chronic Code(s): L89.314 - Pressure ulcer of right buttock, stage 4 (2) MRSA bacteremia Status: Acute Code(s): R78.81 - Bacteremia (3) Anxiety and depression Status: Chronic Code(s): F41.8 - Other specified anxiety disorders (4) COPD (chronic obstructive pulmonary disease) Status: Chronic Qualifiers: Code(s): J44.9 - Chronic obstructive pulmonary disease, unspecified (5) Debility Status: Chronic Code(s): R53.81 - Other malaise (6) HLD (hyperlipidemia) Status: Chronic Qualifiers: Code(s): E78.5 - Hyperlipidemia, unspecified (7) HTN (hypertension) Status: Chronic Qualifiers: Code(s): I10 - Essential (primary) hypertension (8) PAD (peripheral artery disease) Status: Chronic Code(s): I73.9 - Peripheral vascular disease, unspecified (9) Methicillin resistant Staphylococcus aureus infection Status: Inactive Code(s): A49.02 - Methicillin resistant Staphylococcus aureus infection, unspecified site Type of Wound Date of Service: 12/20/18 Chief Complaint: Nonhealing pressure ulcer right ischium and left thigh skin ulcer. History of Wound: Mr Rincon is a 63 yo very well known to the wound center and up to a couple of weeks ago, was following up with a surgeon at [facility] who recently performed a muscle flap for his chronic right buttock stage IV ulcer which failed. He also had sessions of HBO. No available report from [facility] is available at this time, however the patient reports that his surgeon instructed him that they will reattempt another muscle flap after the patient received a colostomy. He does note that a colostomy procedure was performed in September 2018. He has currently been residing in [place] [facility] facility where they have been utilizing wet-to-dry dressings to his stage IV ischial pressure injury and Santyl to his stage II right buttock pressure injury. He returns here for continued wound care. He denies any concerns at this time. It appears he has been having a wet-to-dry dressing at his nursing facility. He denies any significant discharge from the wound. The patient otherwise denies any fever, chills, nausea, vomiting, shortness of breath, chest pain or pressure, palpitations, orthopnea, lower extremity edema, syncope or presyncopal episodes. Progress of Wound: Wounds is improved compared to a month ago. The patient did miss his prior visits due to a hospital stay for sepsis related to septic arthritis of the left knee, he was transferred to [facility] for arthroscopy and states that he did test positive for MRSA and a PICC line was placed and he is getting vancomycin daily. 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 He denies any acute concerns at this time. The patient does state that he still has not heard back from [facility] plastic surgery regarding his muscle flap surgery for the stage IV ischial pressure ulcer and would like to be referred back to Dr. mesa. - Physical Exam Vital Signs Temp Pulse Resp BP 98.4 F 65 16 128/69 H 12/20/18 13:30 12/20/18 13:30 12/20/18 13:30 12/20/18 13:30 General: Alert, Oriented x3, Cooperative, No apparent distress HEENT: Atraumatic Oral: Moist Mucosa Neck: Supple Lungs: Clear to auscultation Cardiovascular: Regular rate Abdomen: Soft, Non Tender Extremities: No clubbing, No cyanosis, No edema Skin: Ulcer/ Wound - ulceration to right ischium with adherant slough, no signs of infection at this time, left knee dressing dry and intact Musculoskeletal: Muscle Wasting Neurological: Neuro grossly intact Psych/Mental Status: Normal Affect, Appropriate, Alert and oriented to time, place, person, mood and affect Debridement Note Wound debrided: stage 4 pressure ulcer right ischium Laterality: Right Type of Debridement: Excisional debridement Anesthesia Used: 5% Lidocaine Gel Depth: in the subcutaneous layer Percentage of wound debrided: 100 Instrument Used: 7mm curette Tissue Removed: slough and devitalized tissue Severity: Fat Layer Exposed Amount of bleeding with debridement: Mild Bleeding Controlled with: Pressure Patient tolerated procedure well Assessment/Plan Assessment: Nonhealing right ischium pressure ulcer, stage IV. Stage II pressure ulcer right buttock healed on 11/01/2018. Furuncle left posterior thigh now open and draining and a cluster nonhealing ulcer Plan: The patient was seen and examined at the wound center today and was updated on the plan of care. A subcutaneous/muscular debridement was performed today. The patient tolerated the procedure well. The patients wound care will co nsist of: Wound VAC on hold at this time due to surrounding excoriation, mesalt cover with gauze and change daily/PRN to ulcer. Wound cultures were collected prior and showed MRSA, Proteus, E. coli, anaerobic cocci, and Prevotella. Patient completed course of Augmentin and doxycycline. Baseline bloodwork viewed from September 2018 and demonstrated a low prealbumin. Patient was advised to increase his supplemental protein intake to 3-4 drinks per day. Given the delayed wound healing and the fact that his wound care has actually been going on now for approximately 2 years per patient report, will apply for the use of an advanced skin substitute. Patient educated on the importance of diet on wound healing and instructed to increase protein and vitamin C intake. Patient verbalized understanding. Patient will follow up at wound healing center in one week or sooner if needed. Advised again on the importance of offloading and position changes at least every 2 hours. This message was relayed to the nursing facility as well. Will also request records from [facility] for continuity of care. Patient still has yet to have a follow-up scheduled with [facility] plastic surgery, therefore will refer to plastic surgery Dr. Mesa for evaluation of muscle flap. He will follow-up with Ortho for his recent arthroscopy. He will continue with his PICC line vancomycin. This note was generated with [employer] dictation software. It may contain incorrect words, spelling, and punctuation that were not noted in checking the note before signing. Code Visit [id number]: [id number] Sue subq tissue 20 sq cm/<
[2018-12-31 13:05] VITALS: BP 142/68; PULSE 76; RESP 16; TEMP 37; BMI 29.0
--- NOTE | 2018-12-31 14:24 | PCM.WC.PN ---
(1) Pressure ulcer of right buttock, stage 3 Status: Chronic Code(s): L89.313 - Pressure ulcer of right buttock, stage 3 (2) Personal history of Methicillin resistant Staphylococcus aureus infection Status: Chronic Code(s): Z86.14 - Personal history of Methicillin resistant Staphylococcus aureus infection (3) History of anal cancer Status: Chronic Code(s): Z85.048 - Personal history of other malignant neoplasm of rectum, rectosigmoid junction, and anus (4) Late effect of radiation Status: Chronic Code(s): T66.XXXS - Radiation sickness, unspecified, sequela Comment: right ischial area (5) Soft tissue radionecrosis Status: Chronic Code(s): L59.8 - Other specified disorders of the skin and subcutaneous tissue related to radiation; Y84.2 - Radiological procedure and radiotherapy as the cause of abnormal reaction of the patient, or of later complication, without mention of misadventure at the time of the procedure Type of Wound Date of Service: 12/31/18 Chief Complaint: Nonhealing pressure ulcer right ischium and left thigh skin ulcer. History of Wound: Mr Rincon is a 63 yo very well known to the wound center and was following up with a surgeon at [facility] who recently performed a muscle flap for his chronic right buttock stage IV ulcer which failed. He also had sessions of HBO. No available report from [facility] is available at this time, however the patient reports that his surgeon instructed him that they will reattempt another muscle flap after the patient received a colostomy. He does note that a colostomy procedure was performed in September 2018. He has currently been residing in [place] [facility] [place] facility where they have been utilizing wet-to-dry dressings to his stage IV ischial pressure injury and Santyl to his stage II right buttock pressure injury. He returns here for continued wound care. He denies any concerns at this time. It appears he has been having a wet-to-dry dressing at his nursing facility. He denies any significant discharge from the wound. Wounds is improved compared to a month ago. The patient did miss his prior visits due to a hospital stay for sepsis related to septic arthritis of the left knee, he was transferred to [facility] for arthroscopy and states that he did test positive for MRSA and a PICC line was placed and he is getting vancomycin daily. 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 He denies any acute concerns at this time. The patient does state that he still has not heard back from [facility] plastic surgery regarding his muscle flap surgery for the stage IV ischial pressure ulcer and would like to be referred back to Dr. mesa. The patient otherwise denies any fever, chills, nausea, vomiting, shortness of breath, chest pain or pressure, palpitations, orthopnea, lower extremity edema, syncope or presyncopal episodes. Progress of Wound: Stable. He is interested in a flap to cover his ulcer. - Physical Exam Vital Signs Temp Pulse Resp BP 98.6 F 76 16 142/68 H 12/31/18 13:05 12/31/18 13:05 12/31/18 13:05 12/31/18 13:05 General: Alert, Oriented x3, Cooperative HEENT: Atraumatic Oral: Moist Mucosa Lungs: Normal air movement Cardiovascular: Regular rate Extremities: Capillary Refill Less than 3 Seconds Skin: Ulcer/ Wound - right ischial ulcer stage III Wound Measurements and Assessment WC - Nurse 1 - General Ulcer Measurement Start: 12/20/18 13:30 Freq: Status: Active Protocol: Activity Type Activity Date Activity User E-Sign Co-Sign Detail Recorded Client Recorded Date Recorded By Document 12/31/18 13:05 [facility] [id number] 12/31/18 13:10 [facility] 12/31/18 13:05 Wound Center Nurse 1 [Ulcer Assessment] #7 Right Ischium -Combined with other wound No -Current Size (cm) - Length 3.9 -Current Size (cm) - Width 2 -Current Size (cm) - Depth 1 -Total Square Cm 7.8 -Photo Taken No -Epithelialization Small 1-33% -Tunneling No -Undermining/Tunneling Yes -Undermining/Tunneling Starts (O' 12 clock) -Undermining/Tunneling Ends (O'clock) 3 -Maximum Distance (cm) 1.7 -Circular Undermining No -Exudate Amt Small -Exudate Type Serous -Wound Margin Thickened & Rolled Under -Granulation Amt Large (67-100%) -Granulation Quality [place] -Slough/Fibrin Yes -Necrosis Amt Small (1-33%) -Necrotic Tissue Type Adherent Slough -Texture (Nathalie-wound Skin Appearance) Assessed, Scarring -Moisture (Nathalie-wound Skin Appearance Assessed ) -Color (Nathalie-wound Skin Appearance) Assessed -Temperature (Nathalie-wound Skin No Abnormality Appearance) (Pt Warm) -Tenderness on Palpation (Nathalie-wound No Skin Appearance) -Ulcer Cleansing Rinsed/ Irrigated with Saline -Foul Odor after Cleansing No -Anesthetic Used 4% Lidocaine Solution WC - Nurse 2 - General Ulcer CM Notes Start: 12/20/18 13:30 Freq: Status: Active Protocol: Activity Type Activity Date Activity User E-Sign Co-Sign Detail Recorded Client Recorded Date Recorded By Document 12/31/18 13:33 [id number] 12/31/18 13:40 12/31/18 13:33 Wound Center Nurse 2 [Procedure/Treatment] -Time 13:34 -Correct Patient Yes -Correct Side, Site, Position Yes -Correct Procedure Yes -Procedure Performed Yes -Type of Procedure Debridement -Clinical Debridement Subcutaneous -Post Debridement Size (cm) - Length 3.5 -Post Debridement Size (cm) - Width 2.0 -Post Debridement Size (cm) - Depth 1.2 -Total Square Cm 7.00 -Wound/Ulcer Outcome Not Healed -Ulcer Cleansing Rinsed/ Irrigated with Saline -Foul Odor after Cleansing No -Bioengineered Tissue No -Bleeding Controlled with Pressure -Offloading No -Treatment Response Procedure Tolerated Well [See Physician Procedure note for Specifics] Pain Scale: 0-10 Numeric [Pain] -Is Patient Pain Free? Yes Musculoskeletal: No Tenderness to Palpation of Joints or Extremities Neurological: Neuro grossly intact Psych/Mental Status: Normal Affect, Appropriate Debridement Note Post-Debridement Measurements/Treatment - Nurse 2 - General Ulcer CM Notes Start: 12/20/18 13:30 Freq: Status: Active Protocol: Activity Type Activity Date Activity User E-Sign Co-Sign Detail Recorded Client Recorded Date Recorded By Document 12/31/18 13:33 [id number] [id number] 12/31/18 13:40 12/31/18 13:33 Wound Center Nurse 2 #7 Right Ischium -Time 13:34 -Correct Patient Yes -Correct Side, Site, Position Yes -Correct Procedure Yes -Procedure Performed Yes -Type of Procedure Debridement -Clinical Debridement Subcutaneous -Post Debridement Size (cm) - Length 3.5 -Post Debridement Size (cm) - Width 2.0 -Post Debridement Size (cm) - Depth 1.2 -Total Square Cm 7.00 -Wound/Ulcer Outcome Not Healed -Ulcer Cleansing Rinsed/ Irrigated with Saline -Foul Odor after Cleansing No -Bioengineered Tissue No -Bleeding Controlled with Pressure -Offloading No -Treatment Response Procedure Tolerated Well Pain Scale: 0-10 Numeric Is Patient Pain Free? Yes Wound debrided: ischial ulcer Laterality: Right Wound Grade/Stage: stage 3 Type of Debridement: Excisional debridement Anesthesia Used: 4% Lidocaine Solution, 5% Lidocaine Gel Depth: in the subcutaneous layer Percentage of wound debrided: 100 Instrument Used: 7mm curette Tissue Removed: Subcutaneous tissue and slough Severity: Fat Layer Exposed Amount of bleeding with debridement: Mild Bleeding Controlled with: Pressure, Compression and gauze Patient tolerated procedure well Assessment/Plan Assessment: Nonhealing right ischium pressure ulcer, stage IV. Stage II pressure ulcer right buttock healed on 11/01/2018. Furuncle left posterior thigh now open and draining and a cluster nonhealing ulcer Plan: The patient was seen and examined at the wound center today and was updated on the plan of care. A subcutaneous/muscular debridement was performed today. The patient tolerated the procedure well. The patients wound care will consist of: Mesalt cover with gauze and change daily/PRN to ulcer. Wound cultures were collected prior and showed MRSA, Proteus, E. coli, anaerobic cocci, and Prevotella. Patient completed course of Augmentin and doxycycline. Baseline bloodwork viewed from September 2018 and demonstrated a low prealbumin. Patient was advised to increase his supplemental protein intake to 3-4 drinks per day. Given the delayed wound healing and the fact that his wound care has actually been going on now for approximately 2 years per patient report, will apply for the use of an advanced skin substitute. Patient educated on the importance of diet on wound healing and instructed to increase protein and vitamin C intake. Patient verbalized understanding. Patient will follow up at wound healing center in one week or sooner if needed. Advised again on the importance of offloading and position changes at least every 2 hours. This message was relayed to the nursing facility as well. Will also request records from [facility] for continuity of care. Patient still has yet to have a follow-up scheduled with [facility] plastic surgery, therefore will refer to plastic surgery Dr. Mesa for evaluation of muscle flap. He will follow-up with Ortho for his recent arthroscopy. He will continue with his PICC line vancomycin. Follow up in one week for evaluation from Dr. Mesa. Code Visit 111xxx-113xx: [id number] Sue subq tissue 20 sq cm/<
[2019-01-07 13:52] VITALS: BP 116/64; PULSE 71; RESP 18; TEMP 36.5; BMI 29.0
--- NOTE | 2019-01-07 18:41 | PCM.WC.PN ---
Type of Wound Date of Service: 01/07/19 Chief Complaint: Right ischial pressure sore, Stage IV, with 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 History of Wound: I was involved in the care of this patient until a year ago when he developed sepsis and was transferred to [facility]. Since that time he underwent closure of the right ischial pressure sore with a myocutaneous flap. There were some wound healing issues postoperatively. He also had HBO treatments. He then underwent a diverting colostomy before proceeding with readvancement of his myocutaneous flap. Since he is feeling better, he comes back to [facility] and wants to have any further surgery here in [place]. In the meantime, will obtain his old records to see what was done. At the present time he is being treated with IV Vancomycin for a MRSA infection left knee with an underlying total knee replacement. Earlier in the year the patient also had placement of a left femoral jesus for a fracture. His latest wound culture was from 12/03/18 which showed Pseudomonas aeroginosa, MRSA, Proteus mirabilis, Corynebacterium striatum. He was started on IV Vancomycin and Zosyn and transferred to [place] because of the presence of the infected left knee implant. He presently resides in a half-way facility. He returns here for continued wound care of the stage IV right ischial pressure sore and wants to continue his care in [place]. At present, he has Silver dressing changes to his right ischial pressure sore. His Prealbumin from 09/16/18 was 14.2. Encourage nutritional supplementation with protein to help the healing process. Progress of Wound: Stable. - Physical Exam Vital Signs Temp Pulse Resp BP 97.7 F L 71 18 116/64 01/07/19 13:52 01/07/19 13:52 01/07/19 13:52 01/07/19 13:52 Wound Measurements and Assessment WC - Nurse 1 - General Ulcer Measurement Start: 12/20/18 13:30 Freq: Status: Active Protocol: Activity Type Activity Date Activity User E-Sign Co-Sign Detail Recorded Client Recorded Date Recorded By Document 01/07/19 13:52 DL [id number] 01/07/19 13:54 DL 01/07/19 13:52 Wound Center Nurse 1 [Ulcer Assessment] #7 Right Ischium -Current Size (cm) - Length 4.5 -Current Size (cm) - Width 6.5 -Current Size (cm) - Depth 1.1 -Total Square Cm 29.25 -Photo Taken No -Exudate Amt Medium -Exudate Type Serosanguineous -Wound Margin Distinct, Outline Attached -Granulation Amt Large (67-100%) -Granulation Quality [place] -Necrosis Amt Small (1-33%) -Necrotic Tissue Type Adherent Slough -Structure Exposed N/A -Texture (Nathalie-wound Skin Appearance) Scarring -Moisture (Nathalie-wound Skin Appearance Maceration ) -Color (Nathalie-wound Skin Appearance) No Abnormality -Temperature (Nathalie-wound Skin No Abnormality Appearance) (Pt Warm) -Tenderness on Palpation (Nathalie-wound No Skin Appearance) -Ulcer Cleansing Wound Cleanser -Foul Odor after Cleansing No -Anesthetic Used 4% Lidocaine Solution WC - Nurse 2 - General Ulcer CM Notes Start: 12/20/18 13:30 Freq: Status: Active Protocol: Activity Type Activity Date Activity User E-Sign Co-Sign Detail Recorded Client Recorded Date Recorded By Document 01/07/19 14:37 [id number] 01/07/19 14:39 01/07/19 14:37 Wound Center Nurse 2 [Procedure/Treatment] -Time 14:38 -Correct Patient Yes -Correct Side, Site, Position Yes -Correct Procedure Yes -Procedure Performed Yes -Type of Procedure Debridement -Clinical Debridement Muscle -Post Debridement Size (cm) - Length 4.5 -Post Debridement Size (cm) - Width 1.6 -Post Debridement Size (cm) - Depth 1.1 -Total Square Cm 7.20 -Wound/Ulcer Outcome Not Healed -Ulcer Cleansing Rinsed/ Irrigated with Saline -Foul Odor after Cleansing No -Bioengineered Tissue No -Bleeding Controlled with Pressure -Offloading No -Treatment Response Procedure Tolerated Well [See Physician Procedure note for Specifics] Pain Scale: 0-10 Numeric [Pain] -Is Patient Pain Free? Yes Debridement Note Post-Debridement Measurements/Treatment - Nurse 2 - General Ulcer CM Notes Start: 12/20/18 13:30 Freq: Status: Active Protocol: Activity Type Activity Date Activity User E-Sign Co-Sign Detail Recorded Client Recorded Date Recorded By Document 12/31/18 13:33 [id number] 12/31/18 13:40 Document 01/07/19 14:37 [id number] 01/07/19 14:39 12/31/18 01/07/19 13:33 14:37 Wound Center Nurse 2 #7 Right Ischium -Time 13:34 14:38 -Correct Patient Yes Yes -Correct Side, Site, Position Yes Yes -Correct Procedure Yes Yes -Procedure Performed Yes Yes -Type of Procedure Debridement Debridement -Clinical Debridement Subcutaneous Muscle -Post Debridement Size (cm) - Length 3.5 4.5 -Post Debridement Size (cm) - Width 2.0 1.6 -Post Debridement Size (cm) - Depth 1.2 1.1 -Total Square Cm 7.00 7.20 -Wound/Ulcer Outcome Not Healed Not Healed -Ulcer Cleansing Rinsed/ Rinsed/ Irrigated with Irrigated with Saline Saline -Foul Odor after Cleansing No No -Bioengineered Tissue No No -Bleeding Controlled with Pressure Pressure -Offloading No No -Treatment Response Procedure Procedure Tolerated Well Tolerated Well Pain Scale: 0-10 Numeric Is Patient Pain Free? Yes Yes Wound debrided: #7 Right ischial area. Laterality: Right Wound Grade/Stage: IV. Type of Debridement: Excisional debridement Anesthesia Used: 4% Lidocaine Solution Depth: Down to and including healthy tissue, in the subcutaneous layer, to muscle, to bone - bone is palpable but not debrided. Percentage of wound debrided: 100 Instrument Used: 7mm curette Tissue Removed: subcutaneous tissue and muscle. Severity: Fat Layer Exposed - muscle is exposed. bone is palpable but not debrided. Amount of bleeding with debridement: Mild Bleeding Controlled with: Pressure Patient tolerated procedure well Assessment/Plan Assessment: 1. Right ischial pressure sore, stage IV. 2. Osteomyelitis. 3. 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 4. MRSA. 5. Infection left knee with underlying total knee replacement. 6. History of anal cancer treated with radiation therapy. Plan: Continue IV Vancomycin for his left knee infection. Continue Silver dressing changes to right ischial pressure sore. Prealbumin from 09/16/18 was 14.2. Encourage nutritional supplementation with protein to help the healing process. Will proceed with further excision of his right ischial pressure sore and partial ostectomy for osteomyelitis after the IV antibiotics have been completed. Will tentatively plan for after Thanksgiving. At the time of that surgery, will obtain further operative cultures, both soft tissue and bone. Will obtain a CT Pelvis at that time. Prior to the myocutaneous flap surgery, it would be beneficial to have HBO treatments to help maximize healing. Will need to obtain the old records from [facility] before any myocutaneous flap surgery is performed. Followup 3 weeks.
== END 2019-01-10 23:59 ==
LOC: WC 13:30
PROVIDERS: Family Provider Internal Medicine; PCP Internal Medicine; Visit Provider Nurse Practitioner Family
DX: I73.9 Peripheral vascular disease, unspecified (principal); J44.9 Chronic obstructive pulmonary disease, unspecified; E78.5 Hyperlipidemia, unspecified; Z86.14 Personal history of Methicillin resistant Staphylococcus aureus infection; L89.214 Pressure ulcer of right hip, stage 4; I10 Essential (primary) hypertension; Z93.3 Colostomy status; Z92.3 Personal history of irradiation; Z85.048 Personal history of other malignant neoplasm of rectum, rectosigmoid junction, and anus
CPT/HCPCS: 11042; 11043

== ENCOUNTER 2019-01-24 14:42 | Outpatient (RCR) | payer MEDICAID, SELFPAY ==
[2019-01-11 00:59] VITALS: BP 116/64; PULSE 71; RESP 18; TEMP 36.5
[2019-01-24 13:22] VITALS: BP 126/67; PULSE 71; RESP 16; TEMP 37.4; BMI 29.0
--- NOTE | 2019-01-24 19:44 | PN.PCM_ITS ---
(1) Right ischial pressure sore, stage 4 Status: Chronic Code(s): L89.314 - Pressure ulcer of right buttock, stage 4 (2) Infection and inflammatory reaction due to internal left knee prosthesis, initial encounter Status: Acute Code(s): T84.54XA - Infection and inflammatory reaction due to internal left knee prosthesis, initial encounter (3) MRSA bacteremia Status: Acute Code(s): R78.81 - Bacteremia (4) COPD (chronic obstructive pulmonary disease) Status: Chronic Qualifiers: Code(s): J44.9 - Chronic obstructive pulmonary disease, unspecified (5) Debility Status: Chronic Code(s): R53.81 - Other malaise (6) History of anal cancer Status: Chronic Code(s): Z85.048 - Personal history of other malignant neoplasm of rectum, rectosigmoid junction, and anus (7) History of total left knee replacement Status: Chronic Code(s): Z96.652 - Presence of left artificial knee joint (8) PAD (peripheral artery disease) Status: Chronic Code(s): I73.9 - Peripheral vascular disease, unspecified (9) Pressure injury of right buttock, stage 2 Status: Acute Code(s): L89.312 - Pressure ulcer of right buttock, stage 2 Type of Wound Date of Service: 01/24/19 Chief Complaint: Right ischial pressure sore, Stage IV, with 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 History of Wound: Dr. Mesa was consulted for patients plan of care as he was involved in the care of this patient until a year ago when he developed sepsis and was transferred to [facility]. Since that time he underwent closure of the right ischial pressure sore with a myocutaneous flap. There were some wound healing issues postoperatively. He also had HBO treatments. He then underwent a diverting colostomy before proceeding with readvancement of his myocutaneous flap. Since he is feeling better, he comes back to [facility] and wants to have any further surgery here in [place]. In the meantime, will obtain his old records to see what was done. At the present time he is being treated with IV Vancomycin for a MRSA infection left knee with an underlying total knee replacement. Earlier in the year the patient also had placement of a left femoral jesus for a fracture. His latest wound culture was from 12/03/18 which showed Pseudomonas aeroginosa, MRSA, Proteus mirabilis, Corynebacterium striatum. He was started on IV Vancomycin and Zosyn and transferred to [place] because of the presence of the infected left knee implant. He presently resides in a assisted facility. He returns here for continued wound care of the stage IV right ischial pressure sore and wants to continue his care in [place]. At present, he has Silver dressing changes to his right ischial pressure sore. His Prealbumin from 09/16/18 was 14.2. Encourage nutritional supplementation with protein to help the healing process. Progress of Wound: Stable. He is still interested in a flap to cover his ulcer. States that he will be following with myself for wound maintenance until the surgery can be done in February [address] Mesa. Does have a new smaller u lceration on his right lower buttock which was caused initially by a tape burn - Physical Exam Vital Signs Temp Pulse Resp BP 99.3 F H 71 16 126/67 H 01/24/19 13:22 01/24/19 13:22 01/24/19 13:22 01/24/19 13:22 General: Alert, Oriented x3, Cooperative, No apparent distress HEENT: Atraumatic Oral: Moist Mucosa Lungs: Clear to auscultation, Normal air movement Cardiovascular: Regular rate, Regular Rhythm Abdomen: Soft, Non Tender Extremities: No clubbing, No cyanosis, No edema Skin: Ulcer/ Wound - Ulceration to right ischium with adherent slough, no signs of infection at this time.New ulceration on right lower buttock which was initially caused by a tape burn with adherent slough, no signs of infection at this time Musculoskeletal: Arthritic Changes, Muscle Wasting Neurological: Neuro grossly intact Psych/Mental Status: Normal Affect, Appropriate, Alert and oriented to time, place, person, mood and affect Debridement Note Post-Debridement Measurements/Treatment WC - Nurse 2 - General Ulcer CM Notes Start: 01/24/19 13:22 Freq: Status: Active Protocol: Activity Type Activity Date Activity User E-Sign Co-Sign Detail Recorded Client Recorded Date Recorded By Document 01/24/19 13:45 [id number] 01/24/19 13:49 01/24/19 13:45 W[facility] Center Nurse 2 #10- R LOWER BUTTOCK -Time 13:45 -Correct Patient Yes -Correct Side, Site, Position Yes -Correct Procedure Yes -Procedure Performed Yes -Type of Procedure Debridement -Clinical Debridement Subcutaneous -Post Debridement Size (cm) - Length 0.8 -Post Debridement Size (cm) - Width 0.8 -Post Debridement Size (cm) - Depth 0.1 -Total Square Cm 0.64 -Wound/Ulcer Outcome Not Healed -Ulcer Cleansing Rinsed/ Irrigated with Saline -Foul Odor after Cleansing No -Bioengineered Tissue No -Bleeding Controlled with Pressure #7 Right Ischium -Time 13:46 -Correct Patient Yes -Correct Side, Site, Position Yes -Correct Procedure Yes -Procedure Performed Yes -Type of Procedure Debridement -Clinical Debridement Subcutaneous -Post Debridement Size (cm) - Length 4 -Post Debridement Size (cm) - Width 2.3 -Post Debridement Size (cm) - Depth 2 -Total Square Cm 9.2 -Wound/Ulcer Outcome Not Healed -Ulcer Cleansing Rinsed/ Irrigated with Saline -Foul Odor after Cleansing No -Bioengineered Tissue No -Bleeding Controlled with Pressure -Offloading Yes Pain Scale: 0-10 Numeric Is Patient Pain Free? No Wound debrided: Stage 4 pressure ulcer right ischium Laterality: Right Type of Debridement: Excisional debridement Anesthesia Used: 5% Lidocaine Gel Depth: in the subcutaneous layer Percentage of wound debrided: 100 Instrument Used: 7mm curette Tissue Removed: slough and devitalized tissue Severity: Fat Layer Exposed Amount of bleeding with debridement: Mild Bleeding Controlled with: Pressure Patient tolerated procedure well - Additional Wound Wound debrided: stage 2 right buttock pressure ulcer Laterality: Right Type of Debridement: Excisional debridement Anesthesia Used: 5% Lidocaine Gel Depth: in the subcutaneous layer Percentage of wound debrided: 100 Instrument Used: 7mm curette Tissue Removed: slough and devitalized tissue Severity: Fat Layer Exposed Amount of bleeding with debridement: Mild Bleeding Controlled with: Pressure Patient tolerated procedure: Patient tolerated procedure well Assessment/Plan Assessment: 1. Right ischial pressure sore, stage IV. 2. Osteomyelitis. 3. 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 4. MRSA. 5. Infection left knee with underlying total knee replacement. 6. History of anal cancer treated with radiation therapy. Plan: Previously consulted plastic surgery and surgery is pending at this time. Continue IV Vancomycin for his left knee infection. Continue Silver dressing changes to right ischial pressure sore. Prealbumin from 09/16/18 was 14.2. Encourage nutritional supplementation with protein to help the healing process.Continue to encourage different offloading measures. Will proceed with Dr. Meas for further excision of his right ischial pressure sore and partial ostectomy for osteomyelitis after the IV antibiotics have been completed. Will tentatively plan for February 2019-March 2019. At the time of that surgery, will obtain further operative cultures, both soft tissue and bone. Will obtain a CT Pelvis at that time. Prior to the myocutaneous flap surgery, it would be beneficial to have HBO treatments to help maximize healing, will start HBO approval process. Will need to obtain the old records from [facility] before any myocutaneous flap surgery is performed. Followup 2 weeks. Code Visit 111xxx-113xx: [id number] Sue subq tissue 20 sq cm/<
== END 2019-02-09 23:59 ==
LOC: WC 14:42
PROVIDERS: Family Provider Internal Medicine; PCP Internal Medicine; Visit Provider Nurse Practitioner Family
DX: L59.8 Other specified disorders of the skin and subcutaneous tissue related to radiation (principal); I73.9 Peripheral vascular disease, unspecified; L89.214 Pressure ulcer of right hip, stage 4; Z86.14 Personal history of Methicillin resistant Staphylococcus aureus infection; J44.9 Chronic obstructive pulmonary disease, unspecified; Z85.048 Personal history of other malignant neoplasm of rectum, rectosigmoid junction, and anus; Y84.2 Radiological procedure and radiotherapy as the cause of abnormal reaction of the patient, or of later complication, without mention of misadventure at the time of the procedure; L89.312 Pressure ulcer of right buttock, stage 2
CPT/HCPCS: 11042

== ENCOUNTER 2019-02-11 14:37 | Inpatient (IN) | payer MEDICARE, MEDICAID, SELFPAY ==
[2019-02-11] VITALS (22 sets, daily range): BP systolic 66–119; BP diastolic 29–92; PULSE 72–114; RESP 16–18; TEMP 36.3–37.1; O2SAT 92–100; BMI 28.5
--- NOTE | 2019-02-11 10:45 | HP.PCM_ITS ---
History and Physical Date of Admission: 02/11/19 HISTORY OF PRESENT ILLNESS The patient is a 63 year old M who presents with long standing history of a nonhealing radiation pressure sore abscess ulcer right gluteal/ischial area, Stage IV. He developed an abscess last Fall that required surgery on 12/30/16 where he underwent surgical preparation right gluteal/ischial area with excision radiation pressure sore abscess wound and partial ostectomy for osteomyelitis (52.5 cm2). Operative cultures showed Pseudomonas, Staphylococcus, and Anaerobes. He was treated with Cefepime and Flagyl. Later on in the ECF, he had another culture which showed MRSA and Genna and he was treated with Doxycycline and Diflucan. He had trouble maintaining a seal with the VAC and he switched to Silver dressing changes. He also just finished HBO treatments for his history of radiation damage. His past history is significant for radiation treatments to his anal area for CA in 2002. He also had chemotherapy. He underwent continued debridement on 06/08/17 where he underwent excision radiation pressure sore abscess ulcer right ischial area, Stage IV, with partial ostectomy for osteomyelitis. Cultures showed Staphylococcus aureus, Achromobacter xylosoxidans, and Bacteroides fragilis. He was treated with Zosyn for 6 weeks. Pathology was positive for osteomyelitis. He was started on HBO treatments in preparation for further surgery because of the presence of osteomyelitis. Recent wound culture from 08/21/17 showed MRSA and Corynebacterium striatum, and Bacteroides fragilis. He was started on Doxycycline and Flagyl. He also was placed on Bactrim when he had trouble with Doxycycline for a few days. About a year ago, he went to a tertiary center in [place] at [facility] where a flap was done to close his right ischial pressure sore. He had issues with healing of the flap with some compromise. Because of the compromise, he underwent a diverting colostomy. Recently he developed an infection in his left knee implant and received IV Vancomycin. His antibiotics are done and he presents today for further surgical excision of his right ischial pressure sore with partial ostectomy for osteomyelitis in preparation for wound closure with muscle flaps. PAST MEDICAL HISTORY COPD. Hepatitis C carrier. Anal carcinoma treated with chemotherapy and radiation therapy. Late effect radiation. MRSA. 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 PAST SURGICAL HISTORY Total hip arthroplasty - left. Total knee arthroplasty - Surgical preparation right gluteal/ischial area with excision radiation pressure sore abscess wound and partial ostectomy for osteomyelitis (52.5 cm2) - 12/30/16 Excision radiation pressure sore abscess ulcer right ischial area, Stage IV, with partial ostectomy for osteomyelitis - 06/08/17 Excision radiation pressure sore abscess ulcer right ischial area, Stage IV, with partial ostectomy for osteomyelitis - 10/17/17 Flap closure at [facility] Diverting colostomy - 09/15/18 ALLERGIES povidone-iodine [From Betadine] Allergy - Hives Urqybat-Eiv-Xbl Reductase Inhibitor Adverse Reaction - MESSED MY LIVER UP adhesive tape Allergy - Itching/rash HOME MEDICATIONS Tylenol. Ventolin. Aspirin. Wellbutrin. Buspar. Vitamin D3. Lexapro. Flonase. Neurontin. Motrin. Metoprolol. MVI. Chuy. Prilosec. Percocet. Testosterone. Spiriva. Zanaflex. Dyazide. SOCIAL HISTORY Lives: With Family Smoking Status: Former smoker Tobacco Use: Non-smoker Alcohol: None Drugs: None FAMILY HISTORY Maternal - no pertinent history Paternal - no pertinent history REVIEW OF SYSTEMS Constitutional: Denies: Chills, Fever, Weight Change. HEENT: Denies: Head Aches, Sinus Congestion, Sinus Drainage. Cardiovascular: Denies: Chest Pain, Palpitations. Respiratory: Denies: Cough, Shortness of breath at rest, Sputum production. Gastrointestinal: Denies: Abdominal Pain, Nausea, Vomiting. Genitourinary: Denies: Dysuria. Musculoskeletal: Denies: Joint Pain, Joint Tenderness. Skin: Reports: Wounds - right buttocks., -. Denies: Rash. Neurological: Denies: Numbness, Tingling, Focal weakness. Psychiatric: Denies: Anxiety, Depression, Homicidal Ideations, Suicidal Ideations. Hematologic/ Lymphatic: Denies: Easy Bruising, Easy Bleeding PHYSICAL EXAMINATION General: Alert, Oriented x3. HEENT: PERRLA, EOMI. Neck: Supple, nontender. No cervical adenopathy. Lungs: Clear to auscultation. Cardiovascular: Regular rate and rhythm. Abdomen: Soft and non-distended. Extremities: No edema. Skin On the right ischial area is a Stage IV pressure sore with palpable bone. Measures 7 x 5 x 1.1 cm. Some fat necrosis present. Some granulation tissue present. No purulence drainage seen at this time. Mild tenderness to palpation. Neurological: Cranial nerves II-XII grossly intact. Psych/Mental Status: Normal Affect, Appropriate. ASSESSMENT 1. Recurrent right ischial pressure sore, Stage IV. 2. 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 3. Osteomyelitis. 4. MRSA. 5. Infection left knee with underlying total knee replacement recently treated with IV Vancomycin. 6. History of anal CA treated with chemotherapy and radiation therapy. PLAN Recommend excision of his recurrent right ischial pressure sore Stage IV, with partial ostectomy for osteomyelitis. Will send tissue and bone to Pathology to evaluate for carcinoma and to evaluate for osteomyelitis. Will send tissue and bone to Microbiology to evaluate for infection. A positive culture may necessitate antibiotic modification. He has history of MRSA. Will treat perioperatively with Vancomycin and Zosyn. Will try and get the VAC to seal this time. If not able, then will continue with Silver dressing changes. He will need a specialty bed postop. Depending on the culture, he may need IV antibiotics postop again that may require a PICC line. Depending on the severity of the infection, the flap may be postponed until the IV antibiotics have completed. After the flap, he will be on bedrest for 6 weeks and would need to go to an ECF for that purpose. Depending on what is found at the time of surgery as well as what is found on Pathology and Microbiology, will determine HBO treatments to improve vascularity and improve the healing of this radiation wound. When this radiation wound is maximized, he will need a fasciocutaneous or a muscle flap. Anticipate increased metabolic demands from the wound and the infection. Will check a Prealbumin and he will need nutritional supplementation with protein to help the healing process. Prealbumin from 09/16/18 was 14.2. While hospitalized, will obtain a CT Pelvis. Surgery will be done under general anesthesia with a surgical observation overnight stay in the hospital. The patient was informed of the risks and complications of the procedure including alternatives to surgery. These were discussed with him personally. He voices understanding and wishes to proceed. Will need to obtain the old records from [facility] before any myocutaneous flap surgery is performed.
[2019-02-11] MEDS: Lactated Ringers 1,000 ML 100 ML IV ×2 (12:00→15:49)
[2019-02-11] MEDS: Vancomycin IV 1,000 MG/200 ML BAG 200 MG IV (12:19)
[2019-02-11 12:38] LABS: Erythrocyte Sedimentation Rate 51 mm/hr (0-20)
[2019-02-11 12:43] LABS: Absolute Lymphocyte Count 1.55 X10^3/uL (0.83-4.51); Basophil# 0.02 X10^3/uL; Basophil% 0.3 % (0-1); Eosinophils% 8.5 % (0-5); Hemoglobin 11.4 g/dL (13.0-16.5); Lymphocyte # 1.55 X10^3/ul (4.0); Lymphocyte % 26.5 % (19-41); Mean Corp Hgb Conc 31.7 g/dL (32-36); Mean Corpuscular Hgb 27.3 pg (27.0-32.0); Mean Corpuscular Volume 86.3 fL (80-94); Monocyte# 0.73 X10^3/uL; Monocyte% 12.5 % (0-10); NRBC Flagged by Analyzer 0 % (0-5); Neutrophil # 3.04 X10^3/uL (2.7-7.7); Neutrophil % 51.9 % (47-70); Platelet Count 288 K/mm3 (150-450); RBC Distribution Width CV 15.9 % (11.6-14.6); RBC Distribution Width SD 49.5 fl (35.1-43.9); Red Blood Count 4.17 M/mm3 (4.6-6.2); White Blood Count 5.9 K/mm3 (4.4-11.0)
--- NOTE | 2019-02-11 12:55 | PRES_PTH ---
PATIENT: BRYN TROTTER LOC: MS3 U#:[id number] AGE/SX: 63/M ROOM: MS310 RE02/11/[address]: Dr. Venkat Mesa MD : [id number] BED: 1 DIS: 02/14/2019 SPEC #: [id number] RECD: 02/11/19 15:42 STATUS: JUAN DIEGO REQ #: [id number] BURT: 02/11/19 12:[address]: Venkat Mesa DEPT: SURGICAL PATHOLOGY RECD BY: Wesley Diana ENTERED: 02/12/19 07:23 SP TYPE: PRESS SORE OTHR DR: Dr. Winnie Gonzales MD Tissues: A - Ischium, NOS B - Ischium, NOS Procedures: Decalcification bone/plaque Surgery Specimen Level IV HEADER OPERATION: Excision, pressure sore, partial ostectomy PRE-OP DIAGNOSIS: Recurrent right ischial pressure sore stage IV, late effect radiation right ischial area with soft tissue radionecrosis, osteomyelitis TISSUE SUBMITTED: A - Soft tissue right ischial pressure sore, B - Bone right ischial pressure sore MICROSCOPIC DIAGNOSIS A. Skin and soft tissue right ischial region, biopsy: Ulceration with associated acute and chronic inflammation and granulation. B. Bone of right ischial region, biopsy: Reparative and reactive change. No evidence of acute osteomyelitis. AM:isi 02/15/19 MICROSCOPIC DESCRIPTION Slides are reviewed. GROSS DESCRIPTION A - Received in fixative is one container labeled with the patient's name and designated soft tissue right ischial region. The specimen consists of a nodular fragment of indurated dark gacria soft tissue measuring 7 x 3.5 x 2 cm. Serial sections do not reveal mass lesions. [employer] sections are submitted in one cassette. B - Received in fixative is one container labeled with the patient's name and designated bone right ischial region. The specimen consists of multiple irregular fragments of garcia bone that in aggregate measure 2 x 2 x 0.2 cm. The specimen is totally submitted in one cassette after decalcification. / AM:isi 02/12/19 TC:3 CPT: 79987 x2, 02974
[2019-02-11 12:57] LABS: ALB/GLOB Ratio 0.9 RATIO (0.9-2.4); AST(SGOT) 32 U/L (15-37); Alanine Aminotransfer ALT/SGPT 41 U/L (16-61); Alkaline Phosphatase 93 U/L (45-117); Anion Gap 7 (5-15); BUN 20 mg/dL (7-18); BUN/Creat Ratio 26.2 RATIO (10-20); CRP 9.02 mg/L (0.0-3.0); Calcium,Total 9.3 mg/dL (8.5-10.1); Chloride 106 mmol/L (98-107); Creatinine, Serum 0.76 mg/dL (0.70-1.30); EST Glomerular Filtration Rate 109 mL/min (>60); Est Glom Filt Rate - Afr Amer 132 mL/min (>60); Estimated Creatinine Clearance 91.81 ml/min; Globulin 4.3 g/dL (2.2-4.2); Glucose 94 mg/dL (74-106); Prealbumin 29.1 mg/dL (20.0-40.0); Protein, Total 8.3 g/dL (6.4-8.2); Sodium Level 140 mmol/L (136-145)
--- NOTE | 2019-02-11 14:30 | OP.PCM_ITS ---
Report of Operation Date of Procedure: 02/11/19 Pre-Operative Diagnosis: 1. Recurrent right ischial pressure sore, Stage IV. 2. 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 3. Osteomyelitis. 4. MRSA. 5. Infection left knee with underlying total knee replacement recently treated with IV Vancomycin. 5. History of anal CA treated with chemotherapy and radiation therapy. Post-Operative Diagnosis: Same. Surgery/Procedure Performed:: Excision recurrent pressure sore right ischial area, Stage IV, with partial ostectomy for osteomyelitis. Description of Surgical Findings:: The patient is a 63 year old M who presents with long standing history of a nonhealing radiation pressure sore abscess ulcer right gluteal/ischial area, Stage IV. He developed an abscess last Fall that required surgery on 12/30/16 where he underwent surgical preparation right gluteal/ischial area with excision radiation pressure sore abscess wound and partial ostectomy for osteomyelitis (52.5 cm2). Operative cultures showed Pseudomonas, Staphylococcus, and Anaerobes. He was treated with Cefepime and Flagyl. Later on in the ECF, he had another culture which showed MRSA and Genna and he was treated with Doxycycline and Diflucan. He had trouble maintaining a seal with the VAC and he switched to Silver dressing changes. He also just finished HBO treatments for his history of radiation damage. His past history is significant for radiation treatments to his anal area for CA in 2002. He also had chemotherapy. He underwent continued debridement on 06/08/17 where he underwent excision radiation pressure sore abscess ulcer right ischial area, Stage IV, with partial ostectomy for osteomyelitis. Cultures showed Staphylococcus aureus, Achromobacter xylosoxidans, and Bacteroides fragil is. He was treated with Zosyn for 6 weeks. Pathology was positive for osteomyelitis. He was started on HBO treatments in preparation for further surgery because of the presence of osteomyelitis. Recent wound culture from 08/21/17 showed MRSA and Corynebacterium striatum, and Bacteroides fragilis. He was started on Doxycycline and Flagyl. He also was placed on Bactrim when he had trouble with Doxycycline for a few days. About a year ago, he went to a tertiary center in [place] at [facility] where a flap was done to close his right ischial pressure sore. He had issues with healing of the flap with some compromise. Because of the compromise, he underwent a diverting colostomy. Recently he developed an infection in his left knee implant and received IV Vancomycin. His antibiotics are done and he presents today for further surgical excision of his right ischial pressure sore with partial ostectomy for osteomyelitis in preparation for wound closure with muscle flaps. Patient was informed of the risks and complications of the procedure including alternatives to surgery. These were discussed with the patient personally. Patient voices understanding and wishes to proceed. Size of defect right ischial area - 6 x 4 x 2 cm. jockey's agent: None Type of Anesthesia:: General Specimen's removed: 1. Recurrent right ischial pressure sore soft tissue to Pathology and Microbiology. 2. Recurrent right ischial pressure sore bone to Pathology and Microbiology. Drains: None. Estimated Blood Loss (mL): 150 ml. Description of Procedure: Patient was taken to OR in supine position and placed under general anesthesia. He was then placed in the prone position and his ischial areas were prepped and draped in the usual fashion. SCD's were placed for DVT prophylaxis. Perioperative antibiotics were given intravenously. I excised the radiation pressure sore abscess ulcer right ischial area in a circular fashion down through the subcutaneous tissue and muscle which was indurated with fat necrosis and late effect radiation damage. No pus was seen. The indurated ulcer and abnormal bursal scar tissue were excised down to the bone. He has history of osteomyelitis, and I suspect persistent osteomyelitis. There was still a considerable amount of chronic radiated tissue damage deeply. After excising this radiated pressure sore ulcer down to the base, it had involved the ischial bone. The ischial bone was irregular in shape which can be consistent with osteomyelitis but also can be related to his radiation. A partial ostectomy was performed with an osteotome and a mallet in a tangential direction. The bony edges were smoothed out with a rasp. I also used rongeurs. After the partial ostectomy, the bone showed good bleeding. Hemostasis was obtained with electrocautery. The wound was irrigated with saline. The size of the defect after excision was 6 x 4 x 2 cm. The wound was packed with Mepitel nonadherent dressing followed by Kerlix gauze and Betadine followed by dry Ker lix gauze and ABD pads and tape for a compression dressing. Half the soft tissue and half the bone was sent to Pathology for analysis to rule out carcinoma and to evaluate for osteomyelitis. Half the soft tissue and half the bone was sent to Microbiology for culture. A positive culture may necessitate antibiotic modification. He is being treated perioperatively with Vancomycin and Zosyn. Because the bone is involved, may plan on wound closure with a fasciocutaneous flap since a skin graft would not be indicated as long as the wound is not too deep. I don't want to detach the hamstrings muscle flap since the patient is ambulatory. Other muscle flap options include the vastus lateralis muscle flap and the gracilis muscle flap. Patient tolerated the procedure well and will be sent to PACU in satisfactory condition. He will be sent back upstairs for continued postop care. Tomorrow they will place the VAC. I anticipate the need for additional IV antibiotics and the use of a PICC line. He will need to go to an ECF for both the IV antibiotics and the VAC. Ideally would like to have HBO while getting the IV antibiotics in preparation for the flap but it won't happen as long as he is at a facility. So I may do some HBO after the antibiotics are done and he is at home prior to the flap and then plan on HBO after his flap and his 6 weeks of bedrest postop. Will discuss these findings with the patient. Because he is ambulatory, we don't have a lot of choices for flaps short of using the microscope for free tissue transfer. Such procedures would need to be done at a tertiary center. Post discharge, he can followup at the [facility] to monitor the healing of the ulcer and to discuss HBO therapy. Grafts/Implants Used: None. - Complications None. - Admit VTE Documentation VTE Present on Admission: No VTE Mechan Device Prophylaxis: SCD's VTE Pharm Prophylaxis ordered?: No Code Visit Surgery Charges CPT - 11576 ICD-10 - L89.314, M86.651, T66.xxxS, L59.8, A49.02, T84.54xA, Z96.652, Z85.048
--- NOTE | 2019-02-11 17:12 | PCM.RX.CS ---
Consult Pharmacy has been consulted to manage selected antiobiotic: Vancomycin Type of Consult: New start Suspected Infection: Osteomyelitis Labs: Sodium 140 mmol/L (136-145) 02/11/19 12:25 Potassium 4.0 mmol/L (3.5-5.1) 02/11/19 12:25 Chloride 106 mmol/L (98-107) 02/11/19 12:25 Carbon Dioxide 27.0 mmol/L (21.0-32.0) 02/11/19 12:25 Anion Gap 7 (5-15) 02/11/19 12:25 BUN 20 mg/dL (7-18) H 02/11/19 12:25 Creatinine 0.76 mg/dL (0.70-1.30) 02/11/19 12:25 Est GFR (MDRD) Af Amer 132 mL/min (>60) 02/11/19 12:25 Est GFR (MDRD) Non-Af 109 mL/min (>60) 02/11/19 12:25 BUN/Creatinine Ratio 26.2 RATIO (10-20) H 02/11/19 12:25 Glucose 94 mg/dL (74-106) 02/11/19 12:25 Weight used for dosin lb 12.465 oz Estimated Creatinine Clearance: 91 Goal Trough: 15-20 mcg/mL Pharmacy Plan for Drug Dosing: Pharmacy Service will continue to monitor and adjust dosing as required. Initial dose of 1000mg given pre-op 02/11 at 1300 Calculated dose for trough 15-20 is 1750 mg q12h Trough will be obtained 02/12 at 2330 Follow-Up Labs: Trough Vancomycin
--- NOTE | 2019-02-11 17:44 | NURSING ---
Pt refusing ensure after educated regarding chronic wounds and enhanced nutrition
[2019-02-11] MEDS: Acetaminophen 325 MG Tablet PO ×2 (17:53→21:40)
[2019-02-11] MEDS: Lactated Ringers 1,000 ML 60 ML IV (17:54)
[2019-02-11] MEDS: oxyCODONE 5 MG Tablet PO ×2 (17:54→22:53)
[2019-02-11] MEDS: Ipratropium 0.5 MG/2.5 ML SOLUTION INHALATION (19:17)
[2019-02-11] MEDS: HYDROmorphone 0.5 MG/0.5 ML SYRINGE IV (21:31)
[2019-02-11] MEDS: busPIRone 5 MG Tablet PO (21:35)
[2019-02-11] MEDS: Doxazosin 1 MG Tablet 2 MG PO (21:36)
[2019-02-11] MEDS: Doxycycline 100 MG CAPSULE PO (21:37)
[2019-02-11] MEDS: Docusate Sodium 100 MG Capsule PO (21:37)
[2019-02-11] MEDS: Metoprolol Tartrate 50 MG Tablet PO (21:38)
[2019-02-11] MEDS: Gabapentin 600 MG Tablet PO (21:38)
[2019-02-12] VITALS (9 sets, daily range): BP systolic 98–157; BP diastolic 50–64; PULSE 70–89; RESP 16–18; TEMP 36.5–37.2; O2SAT 93–97
[2019-02-12] MEDS: Acetaminophen 325 MG Tablet PO ×2 (02:04→06:09)
[2019-02-12] MEDS: HYDROmorphone 0.5 MG/0.5 ML SYRINGE IV ×5 (02:08→22:03)
[2019-02-12] MEDS: oxyCODONE 5 MG Tablet PO ×4 (04:14→18:57)
[2019-02-12] MEDS: busPIRone 5 MG Tablet PO ×3 (06:09→22:01)
[2019-02-12] MEDS: Gabapentin 600 MG Tablet PO ×3 (06:09→22:00)
[2019-02-12] MEDS: Ipratropium 0.5 MG/2.5 ML SOLUTION INHALATION ×3 (06:48→19:06)
[2019-02-12 07:01] LABS: Hematocrit 32.6 % (40-54); Hemoglobin 10.1 g/dL (13.0-16.5); Mean Corpuscular Hgb 27.4 pg (27.0-32.0); Mean Corpuscular Volume 88.3 fL (80-94); Mean Platelet Vol. 8.1 fl (6.2-12.0); Platelet Count 246 K/mm3 (150-450); RBC Distribution Width SD 51.8 fl (35.1-43.9); Red Blood Count 3.69 M/mm3 (4.6-6.2); White Blood Count 6.3 K/mm3 (4.4-11.0)
[2019-02-12 07:03] LABS: Erythrocyte Sedimentation Rate 26 mm/hr (0-20)
[2019-02-12] MEDS: Fluticasone 0.05% 1 SPRAY NASAL.SRY 2 SPRAY NASAL (07:40)
[2019-02-12] MEDS: buPROPion (XL) 300 MG TABLET.XL PO (07:41)
[2019-02-12] MEDS: Escitalopram Oxalate 10 MG Tablet PO (07:41)
[2019-02-12] MEDS: Ascorbic Acid 500 MG Tablet PO (07:42)
[2019-02-12] MEDS: Ezetimibe 10 MG Tablet PO (07:42)
[2019-02-12] MEDS: Metoprolol Tartrate 50 MG Tablet PO ×2 (07:42→22:00)
[2019-02-12] MEDS: Docusate Sodium 100 MG Capsule PO ×2 (07:43→22:00)
[2019-02-12] MEDS: amLODIPine 5 MG Tablet PO (07:44)
[2019-02-12] MEDS: Pantoprazole Sodium 40 MG Tablet PO (07:44)
[2019-02-12] MEDS: Doxycycline 100 MG CAPSULE PO ×2 (07:46→22:00)
[2019-02-12 08:19] LABS: ALB/GLOB Ratio 0.9 RATIO (0.9-2.4); AST(SGOT) 35 U/L (15-37); Alanine Aminotransfer ALT/SGPT 39 U/L (16-61); Albumin, Serum 3.5 g/dL (3.2-5.0); Alkaline Phosphatase 79 U/L (45-117); Anion Gap 8 (5-15); BUN 16 mg/dL (7-18); BUN/Creat Ratio 21.5 RATIO (10-20); Calcium,Total 8.7 mg/dL (8.5-10.1); Chloride 103 mmol/L (98-107); Creatinine, Serum 0.74 mg/dL (0.70-1.30); EST Glomerular Filtration Rate 112 mL/min (>60); Est Glom Filt Rate - Afr Amer 136 mL/min (>60); Estimated Creatinine Clearance 94.29 ml/min; Globulin 3.8 g/dL (2.2-4.2); Glucose 89 mg/dL (74-106); Prealbumin 25.8 mg/dL (20.0-40.0); Protein, Total 7.3 g/dL (6.4-8.2); Sodium Level 140 mmol/L (136-145)
[2019-02-12] MEDS: hydrOXYzine PAM 25 MG Capsule PO (09:02)
--- NOTE | 2019-02-12 10:22 | CASEMGMT ---
Social Work Note Pt is listed as being from [facility]. SW familiar with pt from previous visits. SW in to meet with pt and introduced self and role at [facility]. Pt is alert and orientated x3. Pt confirms that he is from [facility] and his plan is to return there at discharge. SW placed a call to Tavia at [facility]. SW updated Tavia that pt is listed as having Medicare as primary. Tavia states pt will need three midnight stay in hospital. SW updated Tavia that pt could discharge if medically cleared. SW updated Tavia that pt will likely have a wound vac and IV antibiotics and that this worker will fax over updated clinicals. Tavia states understanding. SW faxed updated clinicals to [facility]. Plan: [facility] if medically cleared Caroline Og SOFTWARE CLIENT ARCHITECT, ROLLER STAKER
[2019-02-12] MEDS: DAKIN'S SOL HALF STRENGTH (=0.25%) 1 APPLIC TOPICAL ×2 (10:47→22:02)
[2019-02-12] MEDS: Multivitamins,Therapeutic Tablet 1 TABLET PO (11:16)
[2019-02-12] MEDS: Ferrous Gluconate 324 MG Tablet PO ×2 (11:16→17:15)
--- NOTE | 2019-02-12 11:23 | NURSING ---
Pt states that the colostomy appliance was changed on Monday and requested that the appliance be changed today. removed appliance. there was a small amount of unformed brown stool in the appliance. patient has a cluster of granulomas around the stoma which sits flush with the skin. some mild irritation noted to the peristomal skin. cleansed with soap and water. pat dry. applied 3M Cavilon skin barrier before applying a new 2 piece flat Franklin appliance with an Adapt paste ring. pt tolerated well.
[2019-02-12] MEDS: Ibuprofen 400 MG Tablet 800 MG PO ×2 (13:10→22:00)
--- NOTE | 2019-02-12 13:17 | NURSING ---
wound photo: right ischium
[2019-02-12] MEDS: diazePAM 5 MG Tablet PO (20:21)
[2019-02-12] MEDS: Lactated Ringers 1,000 ML 60 ML IV (21:56)
[2019-02-12] MEDS: Doxazosin 1 MG Tablet 2 MG PO (22:01)
--- NOTE | 2019-02-12 22:26 | PN.SURG_ITS ---
Subjective: Postop #1 Patient is resting comfortably. VAC not applied today. He states he has trouble maintaining a seal. So began Dakin's dressing changes. - Physical Exam Vitals/I&O's: Vital Signs Temp Pulse Resp BP Pulse Ox 98.6 F 83 18 157/57 H 96 02/12/19 20:23 02/12/19 22:00 02/12/19 20:23 02/12/19 20:23 02/12/19 20:23 Oxygen Flow Rate (L/min) 2 Oxygen Delivery Method Room Air Weight: 182 lb 1.629 oz Body Mass Index (BMI) 28.5 Intake and Output for Last 24 Hours 02/10/19 02/11/19 02/12/19 23:59 23:59 23:59 Intake Total 2479 / 2679 3164 / 3164 Output Total 7050 / 7050 Balance 2479 / 854 -3886 / -3886 General: Alert, Oriented x3 HEENT: PERRLA, EOMI Oral: Moist Mucosa Neck: Supple Abdomen: Soft, Non-Distended Skin: Ulcer/ Wound - right ischial wound stable. No active bleeding seen. He didn't want a VAC because of trouble with the seal. So began Dakin's dressing changes twice a day. Neurological: Cranial nerves II-XII grossly intact Psych/Mental Status: Normal Affect, Appropriate Microbiology Past 72 Hours 02/11/19 14:01 Biopsy - Other Gram Stain - Final 02/11/19 14:01 Biopsy - Other Wound Culture - Preliminary Gram negative jesus 02/11/19 14:00 Biopsy - Tissue Gram Stain - Final 02/11/19 14:00 Biopsy - Tissue Wound Culture - Preliminary Gram negative jesus Pathology - pending. Laboratory Results 02/12/19 05:20: WBC 6.3, RBC 3.69 L, Hgb 10.1 L, Hct 32.6 L, MCV 88.3, MCH 27.4, MCHC 31.0 L, RDW Std Deviation 51.8 H, RDW Coeff of Rosendo 16.0 H, Plt Count 246, MPV 8.1, ESR 26 H 02/12/19 05:20: Sodium 140, Potassium 4.0, Chloride 103, Carbon Dioxide 29.0, Anion Gap 8, BUN 16, Creatinine 0.74, Estim Creat Clear Calc 94.29, Est GFR (MDRD) Af Amer 136, Est GFR (MDRD) Non-Af 112, BUN/Creatinine Ratio 21.5 H, Glu cose 89, Calcium 8.7, Total Bilirubin 0.30, AST 35, ALT 39, Alkaline Phosphatase 79, C-React Prot Ext Range 13.90 H, Total Protein 7.3, Albumin 3.5, Globulin 3.8, Albumin/Globulin Ratio 0.9, Prealbumin 25.8 Current Medications Al Hydroxide/Mg Hydroxide (Mylanta Ii) 15 ml PO Q4H PRN PRN PRN Reason: INDIGESTION Amlodipine Besylate (Norvasc) 5 mg PO DAILY [facility] Last Admin: 02/12/19 07:44 Dose: 5 mg Documented by: Ascorbic Acid (Vitamin C) 500 mg PO DAILY@0800 [facility] Last Admin: 02/12/19 07:42 Dose: 500 mg Documented by: Bupropion HCl (Wellbutrin Xl) 300 mg PO DAILY [facility] Last Admin: 02/12/19 07:41 Dose: 300 mg Documented by: Buspirone HCl (Buspar) 5 mg PO TID [facility] Last Admin: 02/12/19 22:01 Dose: 5 mg Documented by: Cholecalciferol (Vitamin D) 1,000 unit PO DAILY [facility] Last Admin: 02/12/19 07:43 Dose: 1,000 unit Documented by: Diazepam (Valium) 5 mg PO 4X/DAY PRN PRN PRN Reason: SPASMS Last Admin: 02/12/19 20:21 Dose: 5 mg Documented by: Docusate Sodium (Colace) 100 mg PO BID [facility] Last Admin: 02/12/19 22:00 Dose: 100 mg Documented by: Doxazosin Mesylate (Cardura) 2 mg PO QHS [facility] Last Admin: 02/12/19 22:01 Dose: 2 mg Documented by: Doxycycline Monohydrate (Doxycycline) 100 mg PO BID [facility] Last Admin: 02/12/19 22:00 Dose: 100 mg Documented by: Ezetimibe (Zetia) 10 mg PO DAILY [facility] Last Admin: 02/12/19 07:42 Dose: 10 mg Documented by: Escitalopram Oxalate (Lexapro) 10 mg PO DAILY [facility] Last Admin: 02/12/19 07:41 Dose: 10 mg Documented by: Ferrous Gluconate (Ferrous Gluconate) 324 mg PO BID@1200,1700 [facility] Last Admin: 02/12/19 17:15 Dose: 324 mg Documented by: Fluticasone Propionate (Flonase Nasal [place]) 2 spray NASAL DAILY [facility] Last Admin: 02/12/19 07:40 Dose: 2 spray Documented by: Gabapentin (Neurontin) 600 mg PO TID [facility] Last Admin: 02/12/19 22:00 Dose: 600 mg Documented by: Hydromorphone HCl (Dilaudid Inj) 0.5 mg IV Q4H PRN PRN PRN Reason: Pain Score 6-10/10 Last Admin: 02/12/19 22:03 Dose: 0.5 mg Documented by: Hydroxyzine Pamoate (Vistaril Pamoate Capsule) 25 mg PO TID PRN PRN PRN Reason: ITCHING Last Admin: 02/12/19 09:02 Dose: 25 mg Documented by: Lactated Ringer's () 1,000 mls @ 60 mls/hr IV .[id number] [facility] Last Admin: 02/12/19 21:56 Dose: 60 mls/hr Documented by: Piperacillin Sod/Tazobactam (Sod 3.375 gm/ Sodium Chloride) 50 mls @ 12.5 mls/hr IV Q8 [facility] Last Admin: 02/12/19 22:03 Dose: 12.5 mls/hr Documented by: Vancomycin IV Pharmacy to Dose (1 ea/ Sodium Chloride) 500 mls @ 250 mls/hr IV X1 PRN; Protocol PRN Reason: Rx to Dose Vancomycin HCl 1,750 mg/ (Sodium Chloride) 535 mls @ 250 mls/hr IV Q12H [facility] Last Infusion: 02/12/19 13:43 Dose: Infused Documented by: Sodium Chloride () 250 mls @ 15 mls/hr IV .[id number] PRN PRN Reason: Saline Flush Last Infusion: 02/12/19 04:15 Dose: 0 mls/hr Documented by: Ibuprofen (Motrin) 800 mg PO Q8 [facility] Last Admin: 02/12/19 22:00 Dose: 800 mg Documented by: Ipratropium [place] (Atrovent) 0.5 mg INHALATION Q6HWA.RT [facility] Last Admin: 02/12/19 19:06 Dose: 0.5 mg Documented by: Magnesium Hydroxide (Milk Of Magnesia) 30 ml PO DAILY PRN PRN PRN Reason: Constipation Metoprolol Tartrate (Lopressor (Beta Joo)) 50 mg PO BID [facility] Last Admin: 02/12/19 22:00 Dose: 50 mg Documented by: Multivitamins (Multivitamin) 1 tablet PO DAILY@1200 [facility] Last Admin: 02/12/19 11:16 Dose: 1 tablet Documented by: Nutritional Formula (Chuy - [place] Flavor) [facility] Last Admin: 02/12/19 17:15 Dose: 1 packet Documented by: Ondansetron HCl (Zofran) 4 mg IV Q6H PRN PRN PRN Reason: NAUSEA Oxycodone HCl (Oxyir) 5 mg PO Q4H PRN PRN PRN Reason: Pain Score 6-10/10 Last Admin: 02/12/19 18:57 Dose: 5 mg Documented by: Pantoprazole Sodium (Protonix) 40 mg PO DAILY [facility] Last Admin: 02/12/19 07:44 Dose: 40 mg Documented by: Promethazine HCl (Phenergan Tablet) 25 mg PO Q4H PRN PRN PRN Reason: NAUSEA/VOMITING Sodium Chloride () 10 - 40 ml IV UD PRN PRN Reason: SALINE FLUSH Sodium Hypochlorite (Dakins Solution 0.25% (1/2 Strength)) 1 applic TOPICAL BID [facility]; Protocol Last Admin: 02/12/19 22:02 Dose: 1 applicatio Documented by: Tizanidine HCl (Zanaflex) 4 mg PO Q8H PRN PRN PRN Reason: SPASMS Zinc Sulfate (Zinc Sulfate) 220 mg PO DAILY@0800 [facility] Last Admin: 02/12/19 07:42 Dose: 220 mg Documented by: Medical Necessity - Tobacco Use Smoking Status: Former smoker Assessment/Plan All Active Problems Infection and inflammatory reaction due to internal left knee prosthesis, initial encounter (Acute) Pressure injury of right buttock, stage 2 (Acute) Skin ulcer of left thigh with fat layer exposed (Acute) MRSA bacteremia (Acute) Pneumonia (Acute) SBO (small bowel obstruction) (Acute) Hypotension (Acute) Hyponatremia (Acute) 1. Recurrent right ischial pressure sore, Stage IV. 2. 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 3. Osteomyelitis. 4. MRSA. 5. Infection left knee with underlying total knee replacement recently treated with IV Vancomycin. 5. History of anal CA treated with chemotherapy and radiation therapy. 6. s/p excision recurrent pressure sore right ischial area, Stage IV, with partial ostectomy for osteomyelitis. Right ischial wound is stable. The VAC was not applied as the patient states he has had difficulty in the past about maintaining a seal. So will begin Dakin's dressing changes twice a day. Operative culture shows Gram negative jesus in both the soft tissue and the bone. Continue Vancomycin and Zosyn. Pathology is pending. Prealbumin was 25.8. Encourage nutritional supplementation with protein to help the healing process. When IV antibiotics are determined, will discharge back to the ECF.
[2019-02-13] VITALS (8 sets, daily range): BP systolic 117–137; BP diastolic 51–60; PULSE 50–89; RESP 16–20; TEMP 36.3–37.1; O2SAT 93–100
[2019-02-13] MEDS: oxyCODONE 5 MG Tablet PO ×3 (00:20→20:58)
[2019-02-13 00:34] LABS: Vancomycin, Trough Level 15.5 ug/mL (5.0-15.0)
--- NOTE | 2019-02-13 02:51 | PCM.RX.CS ---
Consult Pharmacy has been consulted to manage selected antiobiotic: Vancomycin Type of Consult: Follow-up Suspected Infection: Osteomyelitis Prior Doses of Antibiotics Received/Current Regimen: Medications Vancomycin HCl 1,750 mg/ (Sodium Chloride) 535 mls @ 250 mls/hr IV Q12H [facility] Last Admin: 02/13/19 00:15 Dose: 250 mls/hr Labs: Sodium 140 mmol/L (136-145) 02/12/19 05:20 Potassium 4.0 mmol/L (3.5-5.1) 02/12/19 05:20 Chloride 103 mmol/L (98-107) 02/12/19 05:20 Carbon Dioxide 29.0 mmol/L (21.0-32.0) 02/12/19 05:20 Anion Gap 8 (5-15) 02/12/19 05:20 BUN 16 mg/dL (7-18) 02/12/19 05:20 Creatinine 0.74 mg/dL (0.70-1.30) 02/12/19 05:20 Est GFR (MDRD) Af Amer 136 mL/min (>60) 02/12/19 05:20 Est GFR (MDRD) Non-Af 112 mL/min (>60) 02/12/19 05:20 BUN/Creatinine Ratio 21.5 RATIO (10-20) H 02/12/19 05:20 Glucose 89 mg/dL (74-106) 02/12/19 05:20 Vancomycin Trough 15.5 ug/mL (5.0-15.0) H 02/12/19 23:55 Microbiology: Microbiology 02/11/19 14:01 Biopsy - Other Gram Stain - Final 02/11/19 14:01 Biopsy - Other Wound Culture - Preliminary Gram negative jesus 02/11/19 14:00 Biopsy - Tissue Gram Stain - Final 02/11/19 14:00 Biopsy - Tissue Wound Culture - Preliminary Gram negative jesus Weight used for dosin.6 kg Estimated Creatinine Clearance: 94 Goal Trough: 15-20 mcg/mL Pharmacy Plan for Drug Dosing: Trough level of 15.5 was within target range. Will continue dosing at 1750mg q12h and re-draw a trough 02/15/19. Pharmacy Service will continue to monitor and adjust dosing as required. Follow-Up Labs: Trough Vancomycin Labs to be done on [date and time ordered]: 02/15/19 @1138
[2019-02-13] MEDS: HYDROmorphone 0.5 MG/0.5 ML SYRINGE IV (03:25)
[2019-02-13 05:45] LABS: Hematocrit 30.9 % (40-54); Hemoglobin 9.6 g/dL (13.0-16.5); Mean Corp Hgb Conc 31.1 g/dL (32-36); Mean Corpuscular Hgb 27.4 pg (27.0-32.0); Mean Corpuscular Volume 88.3 fL (80-94); Platelet Count 219 K/mm3 (150-450); RBC Distribution Width CV 16.1 % (11.6-14.6); RBC Distribution Width SD 51.8 fl (35.1-43.9); White Blood Count 5.7 K/mm3 (4.4-11.0)
[2019-02-13 06:00] LABS: Anion Gap 5 (5-15); BUN 16 mg/dL (7-18); BUN/Creat Ratio 21.8 RATIO (10-20); Calcium,Total 8.3 mg/dL (8.5-10.1); Chloride 104 mmol/L (98-107); Creatinine, Serum 0.74 mg/dL (0.70-1.30); EST Glomerular Filtration Rate 114 mL/min (>60); Est Glom Filt Rate - Afr Amer 138 mL/min (>60); Estimated Creatinine Clearance 94.29 ml/min; Glucose 108 mg/dL (74-106); Potassium 3.9 mmol/L (3.5-5.1); Sodium Level 138 mmol/L (136-145)
[2019-02-13] MEDS: Ibuprofen 400 MG Tablet 800 MG PO ×3 (06:06→22:24)
[2019-02-13] MEDS: busPIRone 5 MG Tablet PO ×3 (06:06→22:24)
[2019-02-13] MEDS: Gabapentin 600 MG Tablet PO ×3 (06:06→22:24)
[2019-02-13] MEDS: Ipratropium 0.5 MG/2.5 ML SOLUTION INHALATION ×3 (07:08→19:25)
[2019-02-13] MEDS: DAKIN'S SOL HALF STRENGTH (=0.25%) 1 APPLIC TOPICAL ×2 (09:08→22:24)
[2019-02-13] MEDS: Escitalopram Oxalate 10 MG Tablet PO (09:22)
[2019-02-13] MEDS: buPROPion (XL) 300 MG TABLET.XL PO (09:22)
[2019-02-13] MEDS: Ascorbic Acid 500 MG Tablet PO (09:22)
[2019-02-13] MEDS: Fluticasone 0.05% 1 SPRAY NASAL.SRY 2 SPRAY NASAL (09:23)
[2019-02-13] MEDS: Pantoprazole Sodium 40 MG Tablet PO (09:24)
[2019-02-13] MEDS: amLODIPine 5 MG Tablet PO (09:24)
[2019-02-13] MEDS: Doxycycline 100 MG CAPSULE PO ×2 (09:24→22:24)
[2019-02-13] MEDS: Ezetimibe 10 MG Tablet PO (09:25)
[2019-02-13] MEDS: Docusate Sodium 100 MG Capsule PO ×2 (09:25→22:24)
[2019-02-13] MEDS: Metoprolol Tartrate 50 MG Tablet PO ×2 (09:27→22:24)
[2019-02-13] MEDS: hydrOXYzine PAM 25 MG Capsule PO (09:28)
--- NOTE | 2019-02-13 11:42 | CASEMGMT ---
Social Work Note SW faxed updated clinicals to [facility]. Plan: [facility] tomorrow Caroline Og PUPPET ENGINEER, BEAN SNIPPER
[2019-02-13] MEDS: Multivitamins,Therapeutic Tablet 1 TABLET PO (11:53)
[2019-02-13] MEDS: Ferrous Gluconate 324 MG Tablet PO ×2 (11:54→16:28)
--- NOTE | 2019-02-13 15:04 | CASEMGMT ---
Social Work Note SW receive call from Lynette at [facility] stating she read on H+P that pt has active pneumonia and was asking if pt was being treated for pneumonia and also asked for operative report. SHAHANA reviewed H+P and couldn't find where it listed pt had pneumonia but SHAHANA did speak with RN who states pt doesn't have pneumonia and isn't being treated for it. SHAHANA also reviewed clinicals that were sent yesterday to [facility] and this worker did include the operative report yesterday but informed Lynette that this worker can fax operative report again. SHAHANA faxed operative report again to [facility] and wrote on fax coversheet that pt doesn't have pneumonia and not being treated for it. Plan: [facility] tomorrow. Caroline Og CERTIFIED OPHTHALMIC ASSISTANT, LICENSED CLINICAL SOCIAL WORKER
[2019-02-13] MEDS: diazePAM 5 MG Tablet PO (16:26)
[2019-02-13] MEDS: Lactated Ringers 1,000 ML 60 ML IV (16:26)
[2019-02-13] MEDS: guaiFENesin 10 ML UDC (200MG/10ML) PO ×2 (16:31→22:24)
--- NOTE | 2019-02-13 16:45 | RAD_ITS ---
STUDY: X-RAY CHEST REASON FOR EXAM: Male, 63 years old. Productive cough and shortness of breath. TECHNIQUE: Single AP portable view of the chest. COMPARISON: Prior chest radiograph of December 03, 2018 FINDINGS: Right PICC ends in the distal superior vena cava. Lung dietz are well expanded without new consolidation, focal atelectasis or a substantial pleural effusion. Stable chronic changes. Normal size heart. Normal mediastinum and andrea. Normal visualized pulmonary arteries. Normal visualized aortic arch and descending thoracic aorta. There are diffuse degenerative changes of the visualized thoracic spine. There is degenerative osteoarthritis of the bilateral shoulders. There is no demonstrated abnormality of the visualized soft tissue structures of the upper abdomen. RAD/Chest 1 View (Portable) IMPRESSION: No acute cardiopulmonary findings or changes. Negative for new consolidation, focal atelectasis or a substantial pleural effusion. Stable mild generalized chronic changes. Electronically Signed: Jackelyn Mg MD at 18:30 EST , Service support ,
--- NOTE | 2019-02-13 18:38 | PCM.PN.SRG ---
Subjective: Postop #2 Patient has history of cough. - Physical Exam Vitals/I&O's: Vital Signs Temp Pulse Resp BP Pulse Ox 98.0 F 75 18 137/55 H 100 02/13/19 15:10 02/13/19 15:10 02/13/19 15:10 02/13/19 15:10 02/13/19 15:10 Oxygen Flow Rate (L/min) 2 Oxygen Delivery Method Room Air Weight: 182 lb 1.629 oz Body Mass Index (BMI) 28.5 Intake and Output for Last 24 Hours 02/11/19 02/12/19 02/13/19 23:59 23:59 23:59 Intake Total 2479 / 2679 3164 / 3464 3532 / 3532 Output Total 7050 / 8500 3200 / 3200 Balance 2479 / 854 -3886 / -5036 332 / 332 General: Alert, Oriented x3 HEENT: PERRLA, EOMI Oral: Moist Mucosa Neck: Supple Lungs: Clear to auscultation Cardiovascular: Regular rate, Regular Rhythm Abdomen: Soft, Non-Distended Skin: Ulcer/ Wound - right ischial wound stable. Continue Dakin's dressing changes. Neurological: Cranial nerves II-XII grossly intact Psych/Mental Status: Normal Affect, Appropriate Microbiology Past 72 Hours 02/11/19 14:01 Biopsy - Other Gram Stain - Final 02/11/19 14:01 Biopsy - Other Wound Culture - Preliminary Gram negative jesus 02/11/19 14:00 Biopsy - Tissue Gram Stain - Final 02/11/19 14:00 Biopsy - Tissue Wound Culture - Final Proteus mirabilis Pathology - pending Laboratory Results 02/12/19 23:55: Vancomycin Trough 15.5 H 02/13/19 05:30: WBC 5.7, RBC 3.50 L, Hgb 9.6 L, Hct 30.9 L, MCV 88.3, MCH 27.4, MCHC 31.1 L, RDW Std Deviation 51.8 H, RDW Coeff of Rosendo 16.1 H, Plt Count 219, MPV 8.0 02/13/19 05:30: Sodium 138, Potassium 3.9, Chloride 104, Carbon Dioxide 29.0, Anion Gap 5, BUN 16, Creatinine 0.74, Estim Creat Clear Calc 94.29, Est GFR (MDRD) Af Amer 138, Est GFR (MDRD) Non-Af 114, BUN/Creatinine Ratio 21.8 H, Glucose 108 H, Calcium 8.3 L Diagnostic Data Chest X-Ray 02/13/19 16:45 IMPRESSION: No acute cardiopulmonary findings or changes. Negative for new consolidation, focal atelectasis or a substantial pleural effusion. Stable mild generalized chronic changes. Electronically Signed: Jackelyn Mg MD at 18:30 EST , Service support , Current Medications Al Hydroxide/Mg Hydroxide (Mylanta Ii) 15 ml PO Q4H PRN PRN PRN Reason: INDIGESTION Amlodipine Besylate (Norvasc) 5 mg PO DAILY [facility] Last Admin: 02/13/19 09:24 Dose: 5 mg Documented by: Ascorbic Acid (Vitamin C) 500 mg PO DAILY@0800 [facility] Last Admin: 02/13/19 09:22 Dose: 500 mg Documented by: Bupropion HCl (Wellbutrin Xl) 300 mg PO DAILY [facility] Last Admin: 02/13/19 09:22 Dose: 300 mg Documented by: Buspirone HCl (Buspar) 5 mg PO TID [facility] Last Admin: 02/13/19 15:07 Dose: 5 mg Documented by: Cholecalciferol (Vitamin D) 1,000 unit PO DAILY [facility] Last Admin: 02/13/19 09:23 Dose: 1,000 unit Documented by: Diazepam (Valium) 5 mg PO 4X/DAY PRN PRN PRN Reason: SPASMS Last Admin: 02/13/19 16:26 Dose: 5 mg Documented by: Docusate Sodium (Colace) 100 mg PO BID [facility] Last Admin: 02/13/19 09:25 Dose: 100 mg Documented by: Doxazosin Mesylate (Cardura) 2 mg PO QHS [facility] Last Admin: 02/12/19 22:01 Dose: 2 mg Documented by: Doxycycline Monohydrate (Doxycycline) 100 mg PO BID [facility] Last Admin: 02/13/19 09:24 Dose: 100 mg Documented by: Ezetimibe (Zetia) 10 mg PO DAILY [facility] Last Admin: 02/13/19 09:25 Dose: 10 mg Documented by: Escitalopram Oxalate (Lexapro) 10 mg PO DAILY [facility] Last Admin: 12/04/19 09:22 Dose: 10 mg Documented by: Ferrous Gluconate (Ferrous Gluconate) 324 mg PO BID@1200,1700 [facility] Last Admin: 02/13/19 16:28 Dose: 324 mg Documented by: Fluticasone Propionate (Flonase Nasal [place]) 2 spray NASAL DAILY [facility] Last Admin: 02/13/19 09:23 Dose: 2 spray Documented by: Gabapentin (Neurontin) 600 mg PO TID [facility] Last Admin: 02/13/19 15:07 Dose: 600 mg Documented by: Guaifenesin (Robitussin) 10 ml PO Q6H PRN PRN PRN Reason: cough Last Admin: 02/13/19 16:31 Dose: 10 ml Documented by: Hydromorphone HCl (Dilaudid Inj) 0.5 mg IV Q4H PRN PRN PRN Reason: Pain Score 6-10/10 Last Admin: 02/13/19 03:25 Dose: 0.5 mg Documented by: Hydroxyzine Pamoate (Vistaril Pamoate Capsule) 25 mg PO TID PRN PRN PRN Reason: ITCHING Last Admin: 02/13/19 09:28 Dose: 25 mg Documented by: Lactated Ringer's () 1,000 mls @ 60 mls/hr IV .[id number] [facility] Last Admin: 02/13/19 16:26 Dose: 60 mls/hr Documented by: Piperacillin Sod/Tazobactam (Sod 3.375 gm/ Sodium Chloride) 50 mls @ 12.5 mls/hr IV Q8 [facility] Last Admin: 02/13/19 15:05 Dose: 12.5 mls/hr Documented by: Vancomycin IV Pharmacy to Dose (1 ea/ Sodium Chloride) 500 mls @ 250 mls/hr IV X1 PRN; Protocol PRN Reason: Rx to Dose Vancomycin HCl 1,750 mg/ (Sodium Chloride) 535 mls @ 250 mls/hr IV Q12H [facility] Last Infusion: 02/13/19 14:00 Dose: Infused Documented by: Sodium Chloride () 250 mls @ 15 mls/hr IV .[id number] PRN PRN Reason: Saline Flush Last Infusion: 02/12/19 04:15 Dose: 0 mls/hr Documented by: Ibuprofen (Motrin) 800 mg PO Q8 [facility] Last Admin: 02/13/19 15:06 Dose: 800 mg Documented by: Ipratropium [place] (Atrovent) 0.5 mg INHALATION Q6HWA.RT [facility] Last Admin: 02/13/19 13:47 Dose: 0.5 mg Documented by: Magnesium Hydroxide (Milk Of Magnesia) 30 ml PO DAILY PRN PRN PRN Reason: Constipation Metoprolol Tartrate (Lopressor (Beta Joo)) 50 mg PO BID [facility] Last Admin: 02/13/19 09:27 Dose: 50 mg Documented by: Multivitamins (Multivitamin) 1 tablet PO DAILY@1200 [facility] Last Admin: 02/13/19 11:53 Dose: 1 tablet Documented by: Nutritional Formula (Chuy - [place] Flavor) [facility] Last Admin: 02/13/19 16:28 Dose: 1 packet Documented by: Ondansetron HCl (Zofran) 4 mg IV Q6H PRN PRN PRN Reason: NAUSEA Oxycodone HCl (Oxyir) 5 mg PO Q4H PRN PRN PRN Reason: Pain Score 6-10/10 Last Admin: 02/13/19 06:13 Dose: 5 mg Documented by: Pantoprazole Sodium (Protonix) 40 mg PO DAILY [facility] Last Admin: 02/13/19 09:24 Dose: 40 mg Documented by: Promethazine HCl (Phenergan Tablet) 25 mg PO Q4H PRN PRN PRN Reason: NAUSEA/VOMITING Sodium Chloride () 10 - 40 ml IV UD PRN PRN Reason: SALINE FLUSH Sodium Hypochlorite (Dakins Solution 0.25% (1/2 Strength)) 1 applic TOPICAL BID [facility]; Protocol Last Admin: 02/13/19 09:08 Dose: 1 applicatio Documented by: Tizanidine HCl (Zanaflex) 4 mg PO Q8H PRN PRN PRN Reason: SPASMS Zinc Sulfate (Zinc Sulfate) 220 mg PO DAILY@0800 [facility] Last Admin: 02/13/19 09:25 Dose: 220 mg Documented by: Medical Necessity - Tobacco Use Smoking Status: Former smoker Assessment/Plan All Active Problems Infection and inflammatory reaction due to internal left knee prosthesis, initial encounter (Acute) Pressure injury of right buttock, stage 2 (Acute) Skin ulcer of left thigh with fat layer exposed (Acute) MRSA bacteremia (Acute) Pneumonia (Acute) SBO (small bowel obstruction) (Acute) Hypotension (Acute) Hyponatremia (Acute) 1. Recurrent right ischial pressure sore, Stage IV. 2. 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 3. Osteomyelitis. 4. MRSA. 5. Infection left knee with underlying total knee replacement recently treated with IV Vancomycin. 5. History of anal CA treated with chemotherapy and radiation therapy. 6. s/p excision recurrent pressure sore right ischial area, Stage IV, with partial ostectomy for osteomyelitis. For his cough, a CXR was done which showed no acute cardiopulmonary findings or changes. Negative for new consolidation, focal atelectasis or a substantial pleural effusion. Stable mild generalized chronic changes. Right ischial wound is stable. Continue Dakin's dressing changes twice a day. Operative culture shows Gram negative jesus in the bone and Proteus mirabilis in the soft tissue. Continue Vancomycin and Zosyn. Pathology is pending. Prealbumin was 25.8. Encourage nutritional supplementation with protein to help the healing process. When IV antibiotics are determined, will discharge back to the ECF.
--- NOTE | 2019-02-13 20:17 | CT_ITS ---
STUDY: CT PELVIS WITHOUT CONTRAST REASON FOR EXAM: Male, 63 years old. Decubitus ulcer with osteomyelitis and colostomy. RADIATION DOSAGE (If Supplied By Facility): CTDIvol = ( 36.72 ) mGy, DLP = ( 1508.80 ) mGycm TECHNIQUE: Transaxial imaging of the pelvis was performed with oral contrast, and without intravenous administration of contrast material. Multiplanar coronal and sagittal images were reformatted. Individualized dose optimization techniques were used for this CT. COMPARISON: Prior abdomen and pelvic CT exam of September 18, 2018 FINDINGS: Large-volume but not fully distended urinary bladder. Nondistended small bowel. Unremarkable: Exiting by left lower quadrant colostomy. There is no pelvic fluid. There is no pelvic mass lesion or lymphadenopathy. There is diffuse atherosclerotic calcification of the pelvic arteries. Stable postsurgical changes of the left groin and right groin. Deep decubitus ulcer over the right ischial tuberosity with chronic sclerosis and erosive changes of the right ischial tuberosity that are not substantially changed from the prior exam. CT/Pelvis without IV Contrast IMPRESSION: Continued air-filled deep decubitus ulcer extending down to the surface of the right ischial tuberosity with chronic sclerosis and erosive changes of the right ischial tuberosity that are not substantially changed from the prior exam of September 18, 2018. No further bone erosion or extension. No additional acute pelvic findings or changes. Electronically Signed: Jackelyn Mg MD at 21:17 EST , Service support ,
[2019-02-13] MEDS: 0.9% Saline Lock 10 ML Syringe IV (20:59)
[2019-02-13] MEDS: Doxazosin 1 MG Tablet 2 MG PO (22:24)
[2019-02-14] MEDS: oxyCODONE 5 MG Tablet PO (01:12)
[2019-02-14 02:31] VITALS: BP 133/72; PULSE 75; RESP 16; TEMP 37.1; O2SAT 93
[2019-02-14] MEDS: busPIRone 5 MG Tablet PO ×2 (06:24→13:46)
[2019-02-14] MEDS: Gabapentin 600 MG Tablet PO ×2 (06:24→13:46)
[2019-02-14] MEDS: Ibuprofen 400 MG Tablet 800 MG PO ×2 (06:24→13:46)
[2019-02-14 06:56] VITALS: PULSE 81; RESP 18; O2SAT 92
[2019-02-14] MEDS: Ipratropium 0.5 MG/2.5 ML SOLUTION INHALATION (06:56)
[2019-02-14 08:01] VITALS: PULSE 71
[2019-02-14] MEDS: Escitalopram Oxalate 10 MG Tablet PO (08:01)
[2019-02-14] MEDS: Metoprolol Tartrate 50 MG Tablet PO (08:01)
[2019-02-14] MEDS: Pantoprazole Sodium 40 MG Tablet PO (08:01)
[2019-02-14] MEDS: buPROPion (XL) 300 MG TABLET.XL PO (08:01)
[2019-02-14] MEDS: Docusate Sodium 100 MG Capsule PO (08:01)
[2019-02-14] MEDS: amLODIPine 5 MG Tablet PO (08:01)
[2019-02-14] MEDS: Doxycycline 100 MG CAPSULE PO (08:01)
[2019-02-14] MEDS: Ascorbic Acid 500 MG Tablet PO (08:02)
[2019-02-14] MEDS: Fluticasone 0.05% 1 SPRAY NASAL.SRY 2 SPRAY NASAL (08:02)
[2019-02-14] MEDS: DAKIN'S SOL HALF STRENGTH (=0.25%) 1 APPLIC TOPICAL (08:02)
[2019-02-14] MEDS: Ezetimibe 10 MG Tablet PO (08:03)
[2019-02-14 08:06] VITALS: BP 115/57; PULSE 71; RESP 18; TEMP 36.4; O2SAT 98
[2019-02-14 09:10] LABS: Hematocrit 32.5 % (40-54); Hemoglobin 10.2 g/dL (13.0-16.5); Mean Corp Hgb Conc 31.4 g/dL (32-36); Mean Corpuscular Hgb 27.7 pg (27.0-32.0); Mean Corpuscular Volume 88.3 fL (80-94); Platelet Count 211 K/mm3 (150-450); RBC Distribution Width CV 15.9 % (11.6-14.6); RBC Distribution Width SD 50.8 fl (35.1-43.9); Red Blood Count 3.68 M/mm3 (4.6-6.2); White Blood Count 6.1 K/mm3 (4.4-11.0)
[2019-02-14] MEDS: hydrOXYzine PAM 25 MG Capsule PO (09:44)
[2019-02-14] MEDS: guaiFENesin 10 ML UDC (200MG/10ML) PO (09:44)
[2019-02-14 09:45] LABS: Anion Gap 7 (5-15); BUN 18 mg/dL (7-18); BUN/Creat Ratio 23.7 RATIO (10-20); Calcium,Total 8.9 mg/dL (8.5-10.1); Chloride 104 mmol/L (98-107); Creatinine, Serum 0.76 mg/dL (0.70-1.30); EST Glomerular Filtration Rate 109 mL/min (>60); Est Glom Filt Rate - Afr Amer 132 mL/min (>60); Estimated Creatinine Clearance 91.81 ml/min; Glucose 123 mg/dL (74-106); Potassium 3.8 mmol/L (3.5-5.1); Sodium Level 140 mmol/L (136-145)
[2019-02-14] MEDS: Multivitamins,Therapeutic Tablet 1 TABLET PO (11:31)
[2019-02-14] MEDS: Ferrous Gluconate 324 MG Tablet PO (11:31)
--- NOTE | 2019-02-14 11:56 | DCINST_ITS ---
You will use the following diet at home:: No restrictions, Other - encourage nutritional supplementation with protein to help the healing process. Discharge Activity: May Shower - at the time of the dakin's dressing change. May shower in (days): 1 - may shower at the time of the dakin's dressing change. May resume sexual activity in: 10-14 days Weight Bearing Status: Weight bearing as tolerated Call your doctor if your incision/area has: Continuous Slow Oozing, Sudden Increased Bleeding, Increased Pain/ Swelling, Increased Redness, Foul Smelling Discharge, Swelling at the incision site Call your doctor if you observe: Fever of 101 or Higher, Coldness, Increased Pain, Shortness of breath, Chest pain, Calf discomfort, Uncontrolled pain Suture Line Care: - - dakin's dressing changes twice a day. Change Dressing in (Days):: 1 - dakin's dressing changes twice a day. Cleanse incision/area with: Soap & Water - may use soap and water at the time of the dressing changes., - - may shower at the time of the dressing change. Additional Dressing/Incision Instructions:: Nursing to do dressing changes to right ischial pressre sore twice a day with half strength Dakin's solution moistened krista Kerlix gauze followed by dry Kerlix gauze and abd pads. Allergies/Adverse Reactions: Allergies chlorthalidone Allergy (Verified 02/11/19 11:49) Other famotidine Allergy (Verified 02/11/19 11:49) Unknown povidone-iodine [From Betadine] Allergy (Verified 02/11/19 11:49) Hives soap Adverse Reaction (Verified 02/11/19 11:49) Hives Dcqxbfa-Fcw-Yir Reductase Inhibitor Adverse Reaction (Verified 02/11/19 11:49) MESSED MY LIVER UP adhesive tape Allergy (Uncoded 02/11/19 11:49) Itching/rash Medications to take at Discharge Escitalopram Oxalate [Lexapro] 10 mg PO DAILY 03/22/16 Fluticasone 0.05% [Flonase Nasal [place]] 2 spray NASAL DAILY 03/22/16 Multivitamin [Multiple Vitamins] 1 each PO DAILY 03/22/16 buPROPion XL [Wellbutrin Xl] 300 mg PO DAILY 03/22/16 busPIRone [Buspar] 5 mg PO TID 03/22/16 Tiotropium [place] [Spiriva Respimat] 2 puff INHALATION DAILY 10/20/16 Tizanidine HCl [Zanaflex] 4 mg PO Q8H PRN PRN 12/27/16 Gabapentin [Neurontin] 600 mg PO TID 01/19/18 Metoprolol Tartrate [Lopressor (beta curt)] 50 mg PO BID 01/19/18 Pantoprazole Sodium [Protonix] 40 mg PO DAILY 03/19/18 Amlodipine [Norvasc] 5 mg PO DAILY 08/22/18 Ascorbic Acid [Vitamin C] 500 mg PO DAILY@0800 08/22/18 Ferrous Gluconate 324 mg PO BID 08/22/18 Zinc Sulfate 220 mg PO DAILY 08/22/18 Doxazosin Mesylate [Cardura] 2 mg PO QHS tab 09/26/18 Argin/Glut/Cahmb/Collag/Mv-Min [Chuy Packet] 1 pack BC TID 10/18/18 Cholecalciferol (VIT D3) [Vitamin D3] 1,000 unit PO DAILY 10/18/18 Ezetimibe [Zetia] 10 mg PO DAILY 10/18/18 Acetaminophen 325 mg PO Q4H 12/03/18 Mag Hydrox/Al Hydrox/Simeth [Mylanta II] 15 ml PO Q4H PRN PRN 12/03/18 Magnesium Hydroxide [Milk Of Magnesia] 30 ml PO DAILY PRN PRN 12/03/18 Nystatin [Mycostatin] 1 applic TOPICAL BID 02/08/19 Cefepime HCl [Maxipime] 1 gm IV Q12 40 Days #80 vial 02/14/19 Diazepam [Valium] 5 mg PO 4X/DAY PRN PRN #30 tab 02/14/19 Docusate Sodium [Colace] 100 mg PO BID cap 02/14/19 Guaifenesin [Robitussin] 10 ml PO Q6H PRN PRN udc 02/14/19 Ipratropium [Atrovent Aerosols] 0.5 mg INHALATION Q6HWA.RT solution 02/14/19 Oxycodone [Oxyir] 5 mg PO Q4H PRN PRN 7 Days #40 tab 02/14/19 Sodium Hypochlorite [Dakins Solution 0.25% (1/2 Strength)] 1 applic TOPICAL BID #3 bottle 02/14/19 hydrOXYzine pamoate capsule [Vistaril pamoate capsule] 25 mg PO TID PRN PRN cap 02/14/19 proMETHazine tablet [Phenergan tablet] 25 mg PO Q4H PRN PRN tab 02/14/19 The following prescriptions were given: Sodium Hypochlorite [Dakins Solution 0.25% (1/2 Strength)] 1 applic TOPICAL BID #3 bottle Prescription Printed Cefepime HCl [Maxipime] 1 gm IV Q12 40 Days #80 vial Prescription Printed Oxycodone [Oxyir] 5 mg PO Q4H PRN PRN 7 Days #40 tab PRN Reason: Pain Score 4-5/10 Prescription Printed Diazepam [Valium] 5 mg PO 4X/DAY PRN PRN #30 tab PRN Reason: Spasms Prescription Printed Primary Care Physician: Winnie Gonzales MD [Primary Care Provider] - Test Results: Test results from this visit will be discussed in further detail at your follow- up appointment, if applicable. Please Follow Up With: Venkat Mesa MD - call [phone] if any questions When: monday02/25/19 at wound center at 900 am. Proposed Discharge Date: 02/14/19
--- NOTE | 2019-02-14 12:12 | PCM.TXEXTCAR ---
- Diet 02/11/19 15:02 Diet: Regular Diet - Routine Orders/Code Status Routine Lab Work: CBC - qMonday, - - CMP, ESR, CRP qMonday Code Status: Full Code - Wound(s) rt buttocks Wound Type: Surgical Incision right ischium Wound Type: Pressure Injury Dressing Change: Dakins moistened gauze - twice a day - Suggestions for Active Care Change Position every (hours): 2 Hours to sit in a chair: 6 Times a day to sit in chair: 3 - Therapies Weight Bearing: Weight bearing as tolerated Extremity Affected:: Bilateral Lower Physical Therapy: Eval and Treat Occupational Therapy: Eval and Treat - Allergies/Procedures Done in Hospital Allergies/Adverse Reactions: Allergies chlorthalidone Allergy (Verified 02/11/19 11:49) Other famotidine Allergy (Verified 02/11/19 11:49) Unknown povidone-iodine [From Betadine] Allergy (Verified 02/11/19 11:49) Hives soap Adverse Reaction (Verified 02/11/19 11:49) Hives Vctjlrj-Tkk-Ejy Reductase Inhibitor Adverse Reaction (Verified 02/11/19 11:49) MESSED MY LIVER UP adhesive tape Allergy (Uncoded 02/11/19 11:49) Itching/rash Procedures: None - Type of Care/Length of Stay Estimated LOS: More Than 30 Days Type of Care Needed: Skilled Rehab Potential: Fair Prognosis: Fair - Additional Orders/Day of Discharge H&P will serve as current which was dated: 02/11/19 Day of Discharge: 02/14/19 - Dietary and Speech Recommendations Dietitian Recommendations/Changes: Recommend continue Regular Diet with Chuy 1 pcket BID. - Follow Up Care Primary Care Physician: Winnie Gonzales MD [Primary Care Provider] - Please Follow Up With: Venkat Mesa MD - call [phone] if any questions When: monday02/25/19 at wound center at 900 am.
--- NOTE | 2019-02-14 12:19 | PCM.DC.SUM ---
Discharge Date and Diagnosis Date of Admission: 02/11/19 Date of Discharge: 02/14/19 - Primary Discharge Diagnosis Recurrent right ischial pressure sore, Stage IV. Osteomyelitis. - Secondary Discharge Diagnosis History of total left knee replacement Decubitus ulcer of left heel, stage 2 Debility Personal history of Methicillin resistant Staphylococcus aureus infection History of anal cancer treated with chemotherapy and radiation therapy Late effect of radiation right ischial area Soft tissue radionecrosis Hepatitis C carrier COPD (chronic obstructive pulmonary disease) Anxiety and depression HTN (hypertension) HLD (hyperlipidemia) GERD (gastroesophageal reflux disease) PAD (peripheral artery disease) Hospital Course and Treatment Imaging Results: Diagnostic Data Chest X-Ray 02/13/19 16:45 IMPRESSION: No acute cardiopulmonary findings or changes. Negative for new consolidation, focal atelectasis or a substantial pleural effusion. Stable mild generalized chronic changes. Electronically Signed: Jackelyn Mg MD at 18:30 EST , Service support , Pelvis CT 02/13/19 20:17 IMPRESSION: Continued air-filled deep decubitus ulcer extending down to the surface of the right ischial tuberosity with chronic sclerosis and erosive changes of the right ischial tuberosity that are not substantially changed from the prior exam of September 18, 2018. No further bone erosion or extension. No additional acute pelvic findings or changes. Electronically Signed: Jackelyn Mg MD at 21:17 EST , Service support , Consultations 02/11/19 23:33 Consult: Onc/Wound/oil changer Routine Comment: Reason for Consult:: wound to R buttock; wound vac to be applied 02/1202/12/19 04:43 Consult: Onc/Wound/oil changer Routine Comment: Reason for Consult:: colostomy Operations: - - Surgery 02/11/19 - Excision recurrent pressure sore right ischial area, Stage IV, with partial ostectomy for osteomyelitis. Procedures: None Summary of Care Provided: The patient is a 63 year old M who presents with long standing history of a nonhealing radiation pressure sore abscess ulcer right gluteal/ischial area, Stage IV. He developed an abscess last Fall that required surgery on 12/30/16 where he underwent surgical preparation right gluteal/ischial area with excision radiation pressure sore abscess wound and partial ostectomy for osteomyelitis (52.5 cm2). Operative cultures showed Pseudomonas, Staphylococcus, and Anaerobes. He was treated with Cefepime and Flagyl. Later on in the F, he had another culture which showed MRSA and Genna and he was treated with Doxycycline and Diflucan. He had trouble maintaining a seal with the VAC and he switched to Silver dressing changes. He also just finished HBO treatments for his history of radiation damage. His past history is significant for radiation treatments to his anal area for CA in 2002. He also had chemotherapy. He underwent continued debridement on 06/08/17 where he underwent excision radiation pressure sore abscess ulcer right ischial area, Stage IV, with partial ostectomy for osteomyelitis. Cultures showed Staphylococcus aureus, Achromobacter xylosoxidans, and Bacteroides fragilis. He was treated with Zosyn for 6 weeks. Pathology was positive for osteomyelitis. He was started on HBO treatments in preparation for further surgery because of the presence of osteomyelitis. Recent wound culture from 08/21/17 showed MRSA and Corynebacterium striatum, and Bacteroides fragilis. He was started on Doxycycline and Flagyl. He also was placed on Bactrim when he had trouble with Doxycycline for a few days. About a year ago, he went to a tertiary center in [place] at [facility] where a flap was done to close his right ischial pressure sore. He had issues with healing of the flap with some compromise. Because of the compromise, he underwent a diverting colostomy. Recently he developed an infection in his left knee implant and received IV Vancomycin. His antibiotics are done and he presents today for further surgical excision of his right ischial pressure sore with partial ostectomy for osteomyelitis in preparation for wound closure with muscle flaps. On 02/11/19 he was taken to surgery where he underwent excision recurrent pressure sore right ischial area, Stage IV, with partial ostectomy for osteomyelitis. He was treated perioperatively with Vancomycin and Zosyn. He didn't want the VAC placed postop since he has had trouble in the past with it. So we started Dakin's dressing changes twice a day. Operative cultures showed Proteus mirabilis in the soft tissue and bone. Pathology was pending. Vancomycin and Zosyn were stopped at the time of discharge, and he was started on Cefepime. His Prealbumin was 25.8. Encouraged nutritional supplementation with protein to help the healing process. During the hospital stay he had a cough. CXR was done which was normal. Also obtained CT Pelvis which showed continued air-filled deep decubitus ulcer extending down to the surface of the right ischial tuberosity with chronic sclerosis and erosive changes of the right ischial tuberosity that are not substantially changed from the prior exam of September 18, 2018. No further bone erosion or extension. On the 3rd postop day, he was discharged back to the F. He was discharged on Cefepime. Wrote scripts for OxyIR for pain (40 tabs) and for Valium for spasm (30 tabs). Will check weekly labs (CBC, CMP, ESR, CRP). Continue Dakin's dressing changes twice a day. Followup at [facility] Center on 02/25/19. - Physical Exam Vitals/I&O's: Vital Signs Temp Pulse Resp BP Pulse Ox 97.6 F L 71 18 115/57 L 98 02/14/19 08:06 02/14/19 08:06 02/14/19 08:06 02/14/19 08:06 02/14/19 08:06 Oxygen Flow Rate (L/min) 2 Oxygen Delivery Method Room Air Weight: 182 lb 1.629 oz Body Mass Index (BMI) 28.5 Intake and Output for Last 24 Hours 02/12/19 02/13/19 02/14/19 23:59 23:59 23:59 Intake Total 3164 / 3464 3582 / 5582 3336 / 3336 Output Total 7050 / 8500 4400 / 6650 2250 / 2250 Balance -3886 / -5036 -818 / -1068 1086 / 1086 General: Alert, Oriented x3 HEENT: PERRLA, EOMI Oral: Moist Mucosa Neck: Supple Lungs: Clear to auscultation Cardiovascular: Regular rate, Regular Rhythm Abdomen: Soft, Non-Distended Skin: Ulcer/ Wound - right ischial wound stable. Dakin's dressing changes applied. Neurological: Cranial nerves II-XII grossly intact Psych/Mental Status: Normal Affect, Appropriate Microbiology Past 72 Hours 02/11/19 14:01 Biopsy - Other Gram Stain - Final 02/11/19 14:01 Biopsy - Other Wound Culture - Final Proteus mirabilis 02/11/19 14:00 Biopsy - Tissue Gram Stain - Final 02/11/19 14:00 Biopsy - Tissue Wound Culture - Final Proteus mirabilis Laboratory Results 02/14/19 08:57: WBC 6.1, RBC 3.68 L, Hgb 10.2 L, Hct 32.5 L, MCV 88.3, MCH 27.7, MCHC 31.4 L, RDW Std Deviation 50.8 H, RDW Coeff of Rosendo 15.9 H, Plt Count 211, MPV 8.0 02/14/19 08:57: Sodium 140, Potassium 3.8, Chloride 104, Carbon Dioxide 29.0, Anion Gap 7, BUN 18, Creatinine 0.76, Estim Creat Clear Calc 91.81, Est GFR (MDRD) Af Amer 132, Est GFR (MDRD) Non-Af 109, BUN/Creatinine Ratio 23.7 H, Glucose 123 H, Calcium 8.9 Current Medications Al Hydroxide/Mg Hydroxide (Mylanta Ii) 15 ml PO Q4H PRN PRN PRN Reason: INDIGESTION Amlodipine Besylate (Norvasc) 5 mg PO DAILY [facility] Last Admin: 02/14/19 08:01 Dose: 5 mg Documented by: Ascorbic Acid (Vitamin C) 500 mg PO DAILY@0800 [facility] Last Admin: 02/14/19 08:02 Dose: 500 mg Documented by: Bupropion HCl (Wellbutrin Xl) 300 mg PO DAILY [facility] Last Admin: 02/14/19 08:01 Dose: 300 mg Documented by: Buspirone HCl (Buspar) 5 mg PO TID [facility] Last Admin: 02/14/19 06:24 Dose: 5 mg Documented by: Cholecalciferol (Vitamin D) 1,000 unit PO DAILY [facility] Last Admin: 02/14/19 08:01 Dose: 1,000 unit Documented by: Diazepam (Valium) 5 mg PO 4X/DAY PRN PRN PRN Reason: SPASMS Last Admin: 02/13/19 16:26 Dose: 5 mg Documented by: Docusate Sodium (Colace) 100 mg PO BID [facility] Last Admin: 02/14/19 08:01 Dose: 100 mg Documented by: Doxazosin Mesylate (Cardura) 2 mg PO QHS [facility] Last Admin: 02/13/19 22:24 Dose: 2 mg Documented by: Doxycycline Monohydrate (Doxycycline) 100 mg PO BID [facility] Last Admin: 02/14/19 08:01 Dose: 100 mg Documented by: Ezetimibe (Zetia) 10 mg PO DAILY [facility] Last Admin: 02/14/19 08:03 Dose: 10 mg Documented by: Escitalopram Oxalate (Lexapro) 10 mg PO DAILY [facility] Last Admin: 02/14/19 08:01 Dose: 10 mg Documented by: Ferrous Gluconate (Ferrous Gluconate) 324 mg PO BID@1200,1700 [facility] Last Admin: 02/14/19 11:31 Dose: 324 mg Documented by: Fluticasone Propionate (Flonase Nasal [place]) 2 spray NASAL DAILY [facility] Last Admin: 02/14/19 08:02 Dose: 2 spray Documented by: Gabapentin (Neurontin) 600 mg PO TID [facility] Last Admin: 02/14/19 06:24 Dose: 600 mg Documented by: Guaifenesin (Robitussin) 10 ml PO Q6H PRN PRN PRN Reason: cough Last Admin: 02/14/19 09:44 Dose: 10 ml Documented by: Heparin Sodium (Beef Lung) () 50 units IV UD PRN PRN Reason: PICC Line Heparin Flush Hydromorphone HCl (Dilaudid Inj) 0.5 mg IV Q4H PRN PRN PRN Reason: Pain Score 6-10/10 Last Admin: 02/13/19 03:25 Dose: 0.5 mg Documented by: Hydroxyzine Pamoate (Vistaril Pamoate Capsule) 25 mg PO TID PRN PRN PRN Reason: ITCHING Last Admin: 02/14/19 09:44 Dose: 25 mg Documented by: Lactated Ringer's () 1,000 mls @ 60 mls/hr IV .[id number] [facility] Last Infusion: 02/14/19 04:36 Dose: 60 mls/hr Documented by: Vancomycin IV Pharmacy to Dose (1 ea/ Sodium Chloride) 500 mls @ 250 mls/hr IV X1 PRN; Protocol PRN Reason: Rx to Dose Vancomycin HCl 1,750 mg/ (Sodium Chloride) 535 mls @ 250 mls/hr IV Q12H [facility] Last Infusion: 02/14/19 04:36 Dose: Infused Documented by: Sodium Chloride () 250 mls @ 15 mls/hr IV .[id number] PRN PRN Reason: Saline Flush Last Infusion: 02/12/19 04:15 Dose: 0 mls/hr Documented by: Cefepime HCl 1 gm/ Sodium (Chloride) 50 mls @ 100 mls/hr IV Q12 [facility] Last Infusion: 02/14/19 10:14 Dose: Infused Documented by: Ibuprofen (Motrin) 800 mg PO Q8 [facility] Last Admin: 02/14/19 06:24 Dose: 800 mg Documented by: Ipratropium [place] (Atrovent) 0.5 mg INHALATION Q6HWA.RT [facility] Last Admin: 02/14/19 06:56 Dose: 0.5 mg Documented by: Magnesium Hydroxide (Milk Of Magnesia) 30 ml PO DAILY PRN PRN PRN Reason: Constipation Metoprolol Tartrate (Lopressor (Beta Joo)) 50 mg PO BID [facility] Last Admin: 02/14/19 08:01 Dose: 50 mg Documented by: Multivitamins (Multivitamin) 1 tablet PO DAILY@1200 [facility] Last Admin: 02/14/19 11:31 Dose: 1 tablet Documented by: Nutritional Formula (Chuy - [place] Flavor) 1 packet PO BIDCM [facility] Last Admin: 02/14/19 08:02 Dose: 1 packet Documented by: Ondansetron HCl (Zofran) 4 mg IV Q6H PRN PRN PRN Reason: NAUSEA Oxycodone HCl (Oxyir) 5 mg PO Q4H PRN PRN PRN Reason: Pain Score 6-10/10 Last Admin: 02/14/19 01:12 Dose: 5 mg Documented by: Pantoprazole Sodium (Protonix) 40 mg PO DAILY [facility] Last Admin: 02/14/19 08:01 Dose: 40 mg Documented by: Promethazine HCl (Phenergan Tablet) 25 mg PO Q4H PRN PRN PRN Reason: NAUSEA/VOMITING Sodium Chloride () 10 - 40 ml IV UD PRN PRN Reason: SALINE FLUSH Last Admin: 02/13/19 20:59 Dose: 20 ml Documented by: Sodium Chloride (0.9% Nacl (Sterile) Posiflush) 10 - 40 ml IV UD PRN PRN Reason: Port access or dressing change Sodium Hypochlorite (Dakins Solution 0.25% (1/2 Strength)) 1 applic TOPICAL BID [facility]; Protocol Last Admin: 02/14/19 08:02 Dose: 1 applicatio Documented by: Tizanidine HCl (Zanaflex) 4 mg PO Q8H PRN PRN PRN Reason: SPASMS Zinc Sulfate (Zinc Sulfate) 220 mg PO DAILY@0800 [facility] Last Admin: 02/14/19 08:01 Dose: 220 mg Documented by: Discharge Diet: No Restrictions, - - encourage nutritional supplementation with protein to help the healing process. Discharge Activity: May Shower - at the time of the dakin's dressing change. May shower in (days): 1 - may shower at the time of the dakin's dressing change. May resume sexual activity in: 10-14 days Weight Bearing Status: Weight bearing as tolerated Call your doctor if your incision/area has: Continuous Slow Oozing, Sudden Increased Bleeding, Increased Pain/ Swelling, Increased Redness, Foul Smelling Discharge, Swelling at the incision site Call your doctor if you observe: Fever of 101 or Higher, Coldness, Increased Pain, Shortness of breath, Chest pain, Calf discomfort, Uncontrolled pain Suture Line Care: - - dakin's dressing changes twice a day. Change Dressing in (Days):: 1 - dakin's dressing changes twice a day. Cleanse incision/area with: Soap & Water - may use soap and water at the time of the dressing changes., - - may shower at the time of the dressing change. Additional Dressing/Incision Instructions:: Nursing to do dressing changes to right ischial pressre sore twice a day with half strength Dakin's solution moistened krista Kerlix gauze followed by dry Kerlix gauze and abd pads. Home Medications: Medications to take at Discharge Escitalopram Oxalate [Lexapro] 10 mg PO DAILY 03/22/16 Fluticasone 0.05% [Flonase Nasal [place]] 2 spray NASAL DAILY 03/22/16 Multivitamin [Multiple Vitamins] 1 each PO DAILY 03/22/16 buPROPion XL [Wellbutrin Xl] 300 mg PO DAILY 03/22/16 busPIRone [Buspar] 5 mg PO TID 03/22/16 Tiotropium [place] [Spiriva Respimat] 2 puff INHALATION DAILY 10/20/16 Tizanidine HCl [Zanaflex] 4 mg PO Q8H PRN PRN 12/27/16 Gabapentin [Neurontin] 600 mg PO TID 01/19/18 Metoprolol Tartrate [Lopressor (beta joo)] 50 mg PO BID 01/19/18 Pantoprazole Sodium [Protonix] 40 mg PO DAILY 03/19/18 Amlodipine [Norvasc] 5 mg PO DAILY 08/22/18 Ascorbic Acid [Vitamin C] 500 mg PO DAILY@0800 08/22/18 Ferrous Gluconate 324 mg PO BID 08/22/18 Zinc Sulfate 220 mg PO DAILY 08/22/18 Doxazosin Mesylate [Cardura] 2 mg PO QHS tab 09/26/18 Argin/Glut/Cahmb/Collag/Mv-Min [Chuy Packet] 1 pack BC TID 10/18/18 Cholecalciferol (VIT D3) [Vitamin D3] 1,000 unit PO DAILY 10/18/18 Ezetimibe [Zetia] 10 mg PO DAILY 10/18/18 Acetaminophen 325 mg PO Q4H 12/03/18 Mag Hydrox/Al Hydrox/Simeth [Mylanta II] 15 ml PO Q4H PRN PRN 12/03/18 Magnesium Hydroxide [Milk Of Magnesia] 30 ml PO DAILY PRN PRN 12/03/18 Nystatin [Mycostatin] 1 applic TOPICAL BID 02/08/19 Cefepime HCl [Maxipime] 1 gm IV Q12 40 Days #80 vial 02/14/19 Diazepam [Valium] 5 mg PO 4X/DAY PRN PRN #30 tab 02/14/19 Docusate Sodium [Colace] 100 mg PO BID cap 02/14/19 Guaifenesin [Robitussin] 10 ml PO Q6H PRN PRN udc 02/14/19 Ipratropium [Atrovent Aerosols] 0.5 mg INHALATION Q6HWA.RT solution 02/14/19 Oxycodone [Oxyir] 5 mg PO Q4H PRN PRN 7 Days #40 tab 02/14/19 Sodium Hypochlorite [Dakins Solution 0.25% (1/2 Strength)] 1 applic TOPICAL BID #3 bottle 02/14/19 hydrOXYzine pamoate capsule [Vistaril pamoate capsule] 25 mg PO TID PRN PRN cap 02/14/19 proMETHazine tablet [Phenergan tablet] 25 mg PO Q4H PRN PRN tab 02/14/19 Following Prescrptions Were Given to Patient: Sodium Hypochlorite [Dakins Solution 0.25% (1/2 Strength)] 1 applic TOPICAL BID #3 bottle Prescription Printed Cefepime HCl [Maxipime] 1 gm IV Q12 40 Days #80 vial Prescription Printed Oxycodone [Oxyir] 5 mg PO Q4H PRN PRN 7 Days #40 tab PRN Reason: Pain Score 4-5/10 Prescription Printed Diazepam [Valium] 5 mg PO 4X/DAY PRN PRN #30 tab PRN Reason: Spasms Prescription Printed Primary Care Physician: Winnie Gonzales MD [Primary Care Provider] - Please Follow Up With: Venkat Mesa MD - call [phone] if any questions When: monday02/25/19 at [facility] at 900 am. Disposition: [facility] facility Minutes spent on discharge:: 35 Patient Condition:: Fair Medical Necessity - Tobacco Use Smoking Status: Former smoker Meaningful Use Info Meaningful Use Diagnoses (Choose all that apply): None applicable
--- NOTE | 2019-02-14 13:29 | CASEMGMT ---
Social Work Note Pt is discharging to [facility] today. SHAHANA faxed completed discharge paperwork to [facility] including transfer to extended care facility, signed medication list and any scripts. Original in SNF folder and copy on pt's chart. SHAHANA placed a call to [facility] and arranged transportation via cot for 1:45pm and 2:00pm. SHAHANA updated RN. RN states pt has [employer] running for another hour and half. SHAHANA placed a call back to [facility] and arranged transportation for 4:30pm. Transportation form completed and placed on SNF folder and copy on pt's chart. SHAHANA placed a call to Lynette at [facility], updated her that pt will be on IV cefepime and on transportation time. Lynette states pt was skilled before and returning skilled so HENS is not needed. SHAHANA updated RN and pt on transportation time of 4:30pm. Plan: [facility] skilled today with [facility] transporting via cot for 4:30pm Caroline Og [employer], [employer]
--- NOTE | 2019-02-14 13:36 | NURSING ---
report called to Renetta at [facility]. transport set up for [id number].
[2019-02-14 14:08] VITALS: BP 99/62; PULSE 84; RESP 25; TEMP 36.9; O2SAT 84; O2SAT 87
[2019-02-14 16:00] VITALS: BP 99/60; PULSE 80; RESP 20; TEMP 36.8; O2SAT 94
== END 2019-02-14 17:30 | disposition skilled nursing facility (03) | DRG 515 ==
LOC: MS3 16:25 → SDC 16:25
PROVIDERS: Admitting Provider Surgery; Family Provider Internal Medicine; PCP Internal Medicine; Referring Provider Surgery; Visit Provider Surgery
PROC: 0QB20ZZ Excision of Right Pelvic Bone, Open Approach (ICD-10-PCS; principal; 2019-02-11 12:40)
DX: M86.8X5 Other osteomyelitis, thigh (principal); L89.314 Pressure ulcer of right buttock, stage 4; L59.8 Other specified disorders of the skin and subcutaneous tissue related to radiation; Y84.2 Radiological procedure and radiotherapy as the cause of abnormal reaction of the patient, or of later complication, without mention of misadventure at the time of the procedure; Z96.652 Presence of left artificial knee joint; I10 Essential (primary) hypertension; E78.5 Hyperlipidemia, unspecified; B18.2 Chronic viral hepatitis C; F41.9 Anxiety disorder, unspecified; F32.9 Major depressive disorder, single episode, unspecified; Z92.3 Personal history of irradiation; Z85.048 Personal history of other malignant neoplasm of rectum, rectosigmoid junction, and anus; Z86.14 Personal history of Methicillin resistant Staphylococcus aureus infection; K21.9 Gastro-esophageal reflux disease without esophagitis; Z92.21 Personal history of antineoplastic chemotherapy; I73.9 Peripheral vascular disease, unspecified; Z87.891 Personal history of nicotine dependence; J44.9 Chronic obstructive pulmonary disease, unspecified; Z93.3 Colostomy status; B96.4 Proteus (mirabilis) (morganii) as the cause of diseases classified elsewhere
CPT/HCPCS: 36415; 71045; 72192; 80048; 80053; 80202; 84134; 85025; 85027; 85652; 86140; 87070; 87075; 87077; 87102; 87176; 87186; 87205; 87206; 88305; 88311; 94640; 97802; 99251; J7040; J7050; J7120; A4216; G0463

== ENCOUNTER 2019-03-11 10:00 | Outpatient (RCR) | payer MEDICARE, MEDICAID, SELFPAY ==
[2019-02-10 00:45] VITALS: BP 126/67; PULSE 71; RESP 16; TEMP 37.4
[2019-02-11 17:34] VITALS: BMI 28.5
[2019-02-25 09:46] VITALS: BP 118/92; PULSE 76; RESP 18; TEMP 36.9; BMI 28.5
--- NOTE | 2019-02-25 17:50 | PN.PCM_ITS ---
Type of Wound Date of Service: 02/25/19 Chief Complaint: Recurrent pressure sore right ischial area. 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 Wound care - Dakin's. Operative culture - Proteus mirabilis. He was discharged on Cefepime IV. Pathology - negative for osteomyelitis. Prealbumin from 02/12/19 was 25.8. Encourage nutritional supplementation with protein to help the healing process. CT Pelvis from 02/13/19 showed continued air-filled deep decubitus ulcer extending down to the surface of the right ischial tuberosity with chronic sclerosis and erosive changes of the right ischial tuberosity that are not substantially changed from the prior exam of September 18, 2018. No further bone erosion or extension. No additional acute pelvic findings or changes.. Today he denies fever. His appetite is good. Progress of Wound: Recent operative debridement on 02/11/19. - Physical Exam Vital Signs Temp Pulse Resp BP 98.4 F 76 18 118/92 H 02/25/19 09:46 02/25/19 09:46 02/25/19 09:46 02/25/19 09:46 Wound Measurements and Assessment WC - Nurse 1 - General Ulcer Measurement Start: 02/25/19 09:46 Freq: Status: Active Protocol: Activity Type Activity Date Activity User E-Sign Co-Sign Detail Recorded Client Recorded Date Recorded By Document 02/25/19 09:46 MW [id number] 02/25/19 09:52 MW 02/25/19 09:46 Wound Center Nurse 1 [Ulcer Assessment] #11 Right Buttock post op -Combined with other wound No -Current Size (cm) - Length 6.0 -Current Size (cm) - Width 2.6 -Current Size (cm) - Depth 3.5 -Total Square Cm 15.60 -Undermining/Tunneling Starts #2 (O' 10 clock) -Undermining/Tunneling Ends #2 (O' 5 clock) -Maximum Distance #2 (cm) 3.3 -Circular Undermining No -Exudate Amt Large -Exudate Type Serosanguineous -Wound Margin Distinct, Outline Attached -Granulation Amt Small (1-33%) -Granulation Quality Red -Slough/Fibrin Yes -Necrosis Amt Large (67-100%) -Necrotic Tissue Type Adherent Slough -Structure Exposed Bone -Texture (Nathalie-wound Skin Appearance) Assessed, Scarring -Moisture (Nathalie-wound Skin Appearance No Abnormality, ) Assessed -Color (Nathalie-wound Skin Appearance) No Abnormality, Assessed -Temperature (Nathalie-wound Skin No Abnormality Appearance) (Pt Warm) -Ulcer Cleansing Rinsed/ Irrigated with Saline -Foul Odor after Cleansing No -Anesthetic Used 4% Lidocaine Solution [Edema Assessment] -Lower Limb Edema Present No WC - Nurse 2 - General Ulcer CM Notes Start: 02/25/19 09:46 Freq: Status: Active Protocol: Activity Type Activity Date Activity User E-Sign Co-Sign Detail Recorded Client Recorded Date Recorded By Document 02/25/19 10:34 ARNOLD [id number] 02/25/19 10:35 ARNOLD 02/25/19 10:34 Wound Center Nurse 2 [Procedure/Treatment] #11 Right Buttock post op -Time 10:34 -Correct Patient Yes -Correct Side, Site, Position Yes -Correct Procedure Yes -Procedure Performed Yes -Type of Procedure Debridement -Clinical Debridement Muscle -Post Debridement Size (cm) - Length 7 -Post Debridement Size (cm) - Width 3 -Post Debridement Size (cm) - Depth 3.7 -Total Square Cm 21 -Wound/Ulcer Outcome Not Healed -Ulcer Cleansing Rinsed/ Irrigated with Saline -Foul Odor after Cleansing No -Bioengineered Tissue No -Bleeding Controlled with Pressure -Offloading No -Treatment Response Procedure Tolerated Well #10- R LOWER BUTTOCK -Correct Patient No -Correct Side, Site, Position No -Correct Procedure No -Procedure Performed No -Wound/Ulcer Outcome Converted [See Physician Procedure note for Specifics] Pain Scale: 0-10 Numeric [Pain] -Is Patient Pain Free? Yes Debridement Note Post-Debridement Measurements/Treatment WC - Nurse 2 - General Ulcer CM Notes Start: 02/25/19 09:46 Freq: Status: Active Protocol: Activity Type Activity Date Activity User E-Sign Co-Sign Detail Recorded Client Recorded Date Recorded By Document 02/25/19 10:34 ARNOLD [id number] 02/25/19 10:35 02/25/19 10:34 Wound Center Nurse 2 #11 Right Buttock post op -Time 10:34 -Correct Patient Yes -Correct Side, Site, Position Yes -Correct Procedure Yes -Procedure Performed Yes -Type of Procedure Debridement -Clinical Debridement Muscle -Post Debridement Size (cm) - Length 7 -Post Debridement Size (cm) - Width 3 -Post Debridement Size (cm) - Depth 3.7 -Total Square Cm 21 -Wound/Ulcer Outcome Not Healed -Ulcer Cleansing Rinsed/ Irrigated with Saline -Foul Odor after Cleansing No -Bioengineered Tissue No -Bleeding Controlled with Pressure -Offloading No -Treatment Response Procedure Tolerated Well #10- R LOWER BUTTOCK -Correct Patient No -Correct Side, Site, Position No -Correct Procedure No -Procedure Performed No -Wound/Ulcer Outcome Converted Pain Scale: 0-10 Numeric Is Patient Pain Free? Yes Wound debrided: #11 Right ischial area. Laterality: Right Wound Grade/Stage: IV. Type of Debridement: Excisional debridement Anesthesia Used: 4% Lidocaine Solution Depth: Down to and including healthy tissue, in the subcutaneous layer, to musc le, to bone - bone is exposed but not debrided. Percentage of wound debrided: 100 Instrument Used: 7mm curette Tissue Removed: subcutaneous tissue and muscle. Severity: Fat Layer Exposed - muscle is exposed. bone is exposed but not debrided. Amount of bleeding with debridement: Mild Bleeding Controlled with: Pressure Patient tolerated procedure well Assessment/Plan Assessment: 1. Recurrent right ischial pressure sore, Stage IV. 2. 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 3. Osteomyelitis. 4. MRSA. 5. Infection left knee with underlying total knee replacement recently treated with IV Vancomycin. 6. History of anal CA treated with chemotherapy and radiation therapy. Plan: Continue Dakin's dressing changes twice a day. Continue IV Cefepime for the Proteus mirabilis. Prealbumin from 02/12/19 was 25.8. Encourage nutritional supplementation with protein to help the healing process. Since the pathology is negative for osteomyelitis, after the IV antibiotics are completed, can schedule further debridement with wound closure with a myocutaneous flap. Will need to obtain the old records from [facility] before any myocutaneous flap surgery is performed. Followup 2 weeks. Code Visit Wound Center Charges CPT - 98366 ICD-10 - V58.49, L89.314, M86.651, T66.xxxS, L59.8, A49.02, T84.54xA, Z96.652, Z85.048
[2019-03-11 10:01] VITALS: BP 134/60; PULSE 76; RESP 16; TEMP 36.9; BMI 28.5
--- NOTE | 2019-03-11 16:10 | PCM.WC.PN ---
(1) Right ischial pressure sore, stage 4 Status: Chronic Code(s): L89.314 - Pressure ulcer of right buttock, stage 4 (2) Chronic osteomyelitis of right pelvic region Status: Chronic Code(s): M86.651 - Other chronic osteomyelitis, right thigh (3) Soft tissue radionecrosis Status: Chronic Code(s): L59.8 - Other specified disorders of the skin and subcutaneous tissue related to radiation; Y84.2 - Radiological procedure and radiotherapy as the cause of abnormal reaction of the patient, or of later complication, without mention of misadventure at the time of the procedure Type of Wound Date of Service: 03/11/19 Chief Complaint: Recurrent pressure sore right ischial area. 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 Wound care - Dakin's. Operative culture - Proteus mirabilis. He was discharged on Cefepime IV. Pathology - negative for osteomyelitis. Prealbumin from 02/12/19 was 25.8. Encourage nutritional supplementation with protein to help the healing process. CT Pelvis from 02/13/19 showed continued air-filled deep decubitus ulcer extending down to the surface of the right ischial tuberosity with chronic sclerosis and erosive changes of the right ischial tuberosity that are not substantially changed from the prior exam of September 18, 2018. No further bone erosion or extension. No additional acute pelvic findings or changes.. Today he denies fever. His appetite is good. Progress of Wound: Recent operative debridement on 02/11/19. - Physical Exam Vital Signs Temp Pulse Resp BP 98.5 F 76 16 134/60 H 03/11/19 10:01 03/11/19 10:01 03/11/19 10:01 03/11/19 10:01 General: Alert, Oriented x3, Cooperative HEENT: Atraumatic Oral: Moist Mucosa Lungs: Normal air movement Cardiovascular: Regular rate Extremities: No edema, Capillary Refill Less than 3 Seconds Skin: Ulcer/ Wound - right ischial ulcer Wound Measurements and Assessment WC - Nurse 1 - General Ulcer Measurement Start: 02/25/19 09:46 Freq: Status: Active Protocol: Activity Type Activity Date Activity User E-Sign Co-Sign Detail Recorded Client Recorded Date Recorded By Document 03/11/19 10:01 [id number] 03/11/19 10:06 [facility] 03/11/19 10:01 Wound Center Nurse 1 [Ulcer Assessment] #11 Right Buttock post op -Combined with other wound No -Current Size (cm) - Length 6 -Current Size (cm) - Width 2 -Current Size (cm) - Depth 2.6 -Total Square Cm 12 -Photo Taken No -Tunneling No -Undermining/Tunneling No -Circular Undermining No -Exudate Amt Medium -Exudate Type Serosanguineous -Wound Margin Distinct, Outline Attached -Granulation Amt Small (1-33%) -Granulation Quality Red -Slough/Fibrin Yes -Necrosis Amt Large (67-100%) -Necrotic Tissue Type Adherent Slough -Structure Exposed Bone -Texture (Nathalie-wound Skin Appearance) Assessed, Scarring -Moisture (Nathalie-wound Skin Appearance Assessed,Dry/ ) Scaly -Color (Nathalie-wound Skin Appearance) Assessed -Temperature (Nathalie-wound Skin No Abnormality Appearance) (Pt Warm) -Tenderness on Palpation (Nathalie-wound No Skin Appearance) -Ulcer Cleansing Rinsed/ Irrigated with Saline -Foul Odor after Cleansing No -Anesthetic Used 4% Lidocaine Solution WC - Nurse 2 - General Ulcer CM Notes Start: 02/25/19 09:46 Freq: Status: Active Protocol: Activity Type Activity Date Activity User E-Sign Co-Sign Detail Recorded Client Recorded Date Recorded By Document 03/11/19 10:32 [id number] 03/11/19 10:35 03/11/19 10:32 Wound Center Nurse 2 [Procedure/Treatment] -Time 10:32 -Correct Patient Yes -Correct Side, Site, Position Yes -Correct Procedure Yes -Procedure Performed Yes -Type of Procedure Debridement -Clinical Debridement Muscle -Post Debridement Size (cm) - Length 6.0 -Post Debridement Size (cm) - Width 2.5 -Post Debridement Size (cm) - Depth 3.5 -Total Square Cm 15.00 -Wound/Ulcer Outcome Not Healed -Ulcer Cleansing Rinsed/ Irrigated with Saline -Foul Odor after Cleansing No -Bioengineered Tissue No -Bleeding Controlled with Pressure -Offloading No -Treatment Response Procedure Tolerated Well [See Physician Procedure note for Specifics] Pain Scale: 0-10 Numeric [Pain] -Is Patient Pain Free? Yes Musculoskeletal: No Muscle Wasting Neurological: Neuro grossly intact Psych/Mental Status: Normal Affect, Appropriate Debridement Note Post-Debridement Measurements/Treatment WC - Nurse 2 - General Ulcer CM Notes Start: 02/25/19 09:46 Freq: Status: Active Protocol: Activity Type Activity Date Activity User E-Sign Co-Sign Detail Recorded Client Recorded Date Recorded By Document 02/25/19 10:34 [id number] 02/25/19 10:35 Document 03/11/19 10:32 [id number] 03/11/19 10:35 02/25/19 03/11/19 10:34 10:32 Wound Center Nurse 2 #11 Right Buttock post op -Time 10:34 10:32 -Correct Patient Yes Yes -Correct Side, Site, Position Yes Yes -Correct Procedure Yes Yes -Procedure Performed Yes Yes -Type of Procedure Debridement Debridement -Clinical Debridement Muscle Muscle -Post Debridement Size (cm) - Length 7 6.0 -Post Debridement Size (cm) - Width 3 2.5 -Post Debridement Size (cm) - Depth 3.7 3.5 -Total Square Cm 21 15.00 -Wound/Ulcer Outcome Not Healed Not Healed -Ulcer Cleansing Rinsed/ Rinsed/ Irrigated with Irrigated with Saline Saline -Foul Odor after Cleansing No No -Bioengineered Tissue No No -Bleeding Controlled with Pressure Pressure -Offloading No No -Treatment Response Procedure Procedure Tolerated Well Tolerated Well #10- R LOWER BUTTOCK -Correct Patient No -Correct Side, Site, Position No -Correct Procedure No -Procedure Performed No -Wound/Ulcer Outcome Converted Pain Scale: 0-10 Numeric Is Patient Pain Free? Yes Yes Wound debrided: ischium ulcer Laterality: Right Type of Debridement: Excisional debridement Anesthesia Used: 5% Lidocaine Gel Depth: Down to and including healthy tissue, in the subcutaneous layer, to muscle Percentage of wound debrided: 100 Instrument Used: 5mm curette Tissue Removed: subcutaneous tissue and slough, into the muscle with bone exposed Severity: Fat Layer Exposed Amount of bleeding with debridement: Mild Bleeding Controlled with: Pressure Patient tolerated procedure well Assessment/Plan Assessment: 1. Recurrent right ischial pressure sore, Stage IV. 2. 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 3. Osteomyelitis. 4. MRSA. 5. Infection left knee with underlying total knee replacement recently treated with IV Vancomycin. 6. History of anal CA treated with chemotherapy and radiation therapy. Plan: Continue Dakin's dressing changes twice a day. Continue IV Cefepime for the Proteus mirabilis. Prealbumin from 02/12/19 was 25.8. Encourage nutritional supplementation with protein to help the healing process. Since the pathology is negative for osteomyelitis, after the IV antibiotics are completed, can schedule further debridement with wound closure with a myocutaneous flap. Will need to obtain the old records from [facility] before any myocutaneous flap surgery is performed. Followup 3 weeks. Code Visit [id number]
== END 2019-03-12 23:59 ==
LOC: WC 10:00
PROVIDERS: Family Provider Internal Medicine; PCP Internal Medicine; Visit Provider Nurse Practitioner Family
DX: L59.8 Other specified disorders of the skin and subcutaneous tissue related to radiation (principal); L89.214 Pressure ulcer of right hip, stage 4; Z85.048 Personal history of other malignant neoplasm of rectum, rectosigmoid junction, and anus; Y84.2 Radiological procedure and radiotherapy as the cause of abnormal reaction of the patient, or of later complication, without mention of misadventure at the time of the procedure
CPT/HCPCS: 11043; 11046; 99213; G0463

== ENCOUNTER 2019-04-08 11:00 | Outpatient (RCR) | payer MEDICARE, SELFPAY ==
[2019-03-13 00:35] VITALS: BP 134/60; PULSE 76; RESP 16; TEMP 36.9
[2019-04-08 11:23] VITALS: BP 117/63; PULSE 103; RESP 18; TEMP 36.7; BMI 28.5
--- NOTE | 2019-04-08 13:25 | PCM.WC.PN ---
(1) Right ischial pressure sore, stage 4 Status: Chronic Code(s): L89.314 - Pressure ulcer of right buttock, stage 4 (2) Chronic osteomyelitis of right pelvic region Status: Chronic Code(s): M86.651 - Other chronic osteomyelitis, right thigh (3) History of anal cancer Status: Chronic Code(s): Z85.048 - Personal history of other malignant neoplasm of rectum, rectosigmoid junction, and anus (4) Soft tissue radionecrosis Status: Chronic Code(s): L59.8 - Other specified disorders of the skin and subcutaneous tissue related to radiation; Y84.2 - Radiological procedure and radiotherapy as the cause of abnormal reaction of the patient, or of later complication, without mention of misadventure at the time of the procedure (5) Personal history of Methicillin resistant Staphylococcus aureus infection Status: Chronic Code(s): Z86.14 - Personal history of Methicillin resistant Staphylococcus aureus infection Type of Wound Date of Service: 04/01/19 Chief Complaint: Recurrent pressure sore right ischial area. 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 Wound care - Dakin's. Operative culture - Proteus mirabilis. He was discharged on Cefepime IV. Pathology - negative for osteomyelitis. Prealbumin from 02/12/19 was 25.8. Encourage nutritional supplementation with protein to help the healing process. CT Pelvis from 02/13/19 showed continued air-filled deep decubitus ulcer extending down to the surface of the right ischial tuberosity with chronic sclerosis and erosive changes of the right ischial tuberosity that are not substantially changed from the prior exam of September 18, 2018. No further bone erosion or extension. No additional acute pelvic findings or changes.. Today he denies fever. His appetite is good. Progress of Wound: Recent operative debridement on 02/11/19. - Physical Exam Vital Signs Temp Pulse Resp BP 98.0 F 103 H 18 117/63 04/08/19 11:23 04/08/19 11:23 04/08/19 11:23 04/08/19 11:23 General: Alert, Oriented x3 HEENT: Atraumatic Oral: Moist Mucosa Lungs: Normal air movement Cardiovascular: Regular rate Extremities: Capillary Refill Less than 3 Seconds Skin: Ulcer/ Wound - Right ischial ulcer. Skin surrounding the ulcer is mottled with capillary refill >3 seconds. The base of the wound is more pale that normal. Wound Measurements and Assessment WC - Nurse 1 - General Ulcer Measurement Start: 04/08/19 11:23 Freq: Status: Active Protocol: Activity Type Activity Date Activity User E-Sign Co-Sign Detail Recorded Client Recorded Date Recorded By Document 04/08/19 11:23 MW [id number] 04/08/19 11:32 MW 04/08/19 11:23 Wound Center Nurse 1 [Ulcer Assessment] #11 Right Buttock post op -Combined with other wound No -Current Size (cm) - Length 6.5 -Current Size (cm) - Width 3.0 -Current Size (cm) - Depth 4.0 -Total Square Cm 19.50 -Date of Last Picture (Recall this 04/08/19 field) -Photo Taken Yes -Epithelialization None Present -Tunneling No -Undermining/Tunneling No -Circular Undermining No -Exudate Amt Large -Exudate Type Serosanguineous -Wound Margin Thickened & Rolled Under -Granulation Amt None Present (0 %) -Granulation Quality N/A -Slough/Fibrin Yes -Necrosis Amt Large (67-100%) -Necrotic Tissue Type Adherent Slough -Structure Exposed N/A -Texture (Nathalie-wound Skin Appearance) Assessed, Scarring -Moisture (Nathalie-wound Skin Appearance No Abnormality, ) Assessed -Color (Nathalie-wound Skin Appearance) No Abnormality, Assessed -Temperature (Nathalie-wound Skin No Abnormality Appearance) (Pt Warm) -Tenderness on Palpation (Nathalie-wound No Skin Appearance) -Ulcer Cleansing soap and water -Foul Odor after Cleansing No -Anesthetic Used 4% Lidocaine Solution [Edema Assessment] -Lower Limb Edema Present No WC - Nurse 2 - General Ulcer CM Notes Start: 04/08/19 11:23 Freq: Status: Active Protocol: Activity Type Activity Date Activity User E-Sign Co-Sign Detail Recorded Client Recorded Date Recorded By Document 04/08/19 11:56 JF [id number] 04/08/19 11:59 JF 04/08/19 11:56 Wound Center Nurse 2 [Procedure/Treatment] #11 Right Buttock post op -Time 11:56 -Correct Patient Yes -Correct Side, Site, Position Yes -Correct Procedure Yes -Procedure Performed Yes -Type of Procedure Debridement -Clinical Debridement Muscle -Post Debridement Size (cm) - Length 7 -Post Debridement Size (cm) - Width 3 -Post Debridement Size (cm) - Depth 3.3 -Total Square Cm 21 -Wound/Ulcer Outcome Not Healed -Ulcer Cleansing Rinsed/ Irrigated with Saline -Foul Odor after Cleansing No -Bioengineered Tissue No -Bleeding Controlled with Pressure -Other tunnel - 12:00- -3.5cm 3-5:00- -4cm -Offloading No -Treatment Response Procedure Tolerated Well [See Physician Procedure note for Specifics] Pain Scale: 0-10 Numeric [Pain] -Is Patient Pain Free? Yes Musculoskeletal: Tenderness Neurological: Neuro grossly intact Psych/Mental Status: Normal Affect, Appropriate Debridement Note Post-Debridement Measurements/Treatment WC - Nurse 2 - General Ulcer CM Notes Start: 04/08/19 11:23 Freq: Status: Active Protocol: Activity Type Activity Date Activity User E-Sign Co-Sign Detail Recorded Client Recorded Date Recorded By Document 04/08/19 11:56 ARNOLD [id number] 04/08/19 11:59 ARNOLD 04/08/19 11:56 Wound Center Nurse 2 #11 Right Buttock post op -Time 11:56 -Correct Patient Yes -Correct Side, Site, Position Yes -Correct Procedure Yes -Procedure Performed Yes -Type of Procedure Debridement -Clinical Debridement Muscle -Post Debridement Size (cm) - Length 7 -Post Debridement Size (cm) - Width 3 -Post Debridement Size (cm) - Depth 3.3 -Total Square Cm 21 -Wound/Ulcer Outcome Not Healed -Ulcer Cleansing Rinsed/ Irrigated with Saline -Foul Odor after Cleansing No -Bioengineered Tissue No -Bleeding Controlled with Pressure -Other tunnel - 12:00- -3.5cm 3-5:00- -4cm -Offloading No -Treatment Response Procedure Tolerated Well Pain Scale: 0-10 Numeric Is Patient Pain Free? Yes Wound debrided: ischial ulcer Laterality: Right Type of Debridement: Excisional debridement Anesthesia Used: 5% Lidocaine Gel Depth: Down to and including healthy tissue, in the subcutaneous layer, to muscle Percentage of wound debrided: 100 Instrument Used: 7mm curette Tissue Removed: Subcutaneous tissue into the muscle with bone exposed Severity: Fat Layer Exposed Amount of bleeding with debridement: Mild Bleeding Controlled with: Pressure, Compression and gauze Patient tolerated procedure well Assessment/Plan Assessment: 1. Recurrent right ischial pressure sore, Stage IV. 2. 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 3. Osteomyelitis. 4. MRSA. 5. Infection left knee with underlying total knee replacement recently treated with IV Vancomycin. 6. History of anal CA treated with chemotherapy and radiation therapy. Plan: Continue Azar's dressing changes daily. He is now home so he having the dressing changed daily. Concerned about the skin surrounding the ulcer being mottled. He has been sitting more now that he is home. Instructed him to try to make sure not to sit for long periods of time and to try to off load. He has not been using any cushions that he has to help with off loading. His mother yesterday and he and his siblings are planning her services now. Prealbumin from 02/12/19 was 25.8. Encourage nutritional supplementation with protein to help the healing process. Since the pathology is negative for osteomyelitis, after the IV antibiotics are completed, can schedule further debridement with wound closure with a myocutaneous flap. Will need to obtain the old records from [facility] before any myocutaneous flap surgery is performed. Followup 1 week to re evaluate nathalie wound. Code Visit [id number]: [id number] Global Visit
== END 2019-04-12 23:59 ==
LOC: WC 11:00
PROVIDERS: Family Provider Internal Medicine; PCP Internal Medicine; Visit Provider Nurse Practitioner Family
DX: L89.214 Pressure ulcer of right hip, stage 4 (principal); Z85.048 Personal history of other malignant neoplasm of rectum, rectosigmoid junction, and anus; Y84.2 Radiological procedure and radiotherapy as the cause of abnormal reaction of the patient, or of later complication, without mention of misadventure at the time of the procedure; L59.8 Other specified disorders of the skin and subcutaneous tissue related to radiation; M86.651 Other chronic osteomyelitis, right thigh; Z86.14 Personal history of Methicillin resistant Staphylococcus aureus infection
CPT/HCPCS: 11043; 11046

== ENCOUNTER 2019-04-29 13:15 | Outpatient (RCR) | payer MEDICAID, SELFPAY ==
[2019-04-13 00:37] VITALS: BP 117/63; PULSE 103; RESP 18; TEMP 36.7
[2019-04-15 13:18] VITALS: BP 136/53; PULSE 74; RESP 16; BMI 28.5
--- NOTE | 2019-04-15 15:00 | PCM.WC.PN ---
(1) Right ischial pressure sore, stage 4 Status: Chronic Code(s): L89.314 - Pressure ulcer of right buttock, stage 4 (2) Chronic osteomyelitis of right pelvic region Status: Chronic Code(s): M86.651 - Other chronic osteomyelitis, right thigh (3) History of anal cancer Status: Chronic Code(s): Z85.048 - Personal history of other malignant neoplasm of rectum, rectosigmoid junction, and anus (4) Late effect of radiation Status: Chronic Code(s): T66.XXXS - Radiation sickness, unspecified, sequela Comment: right ischial area (5) Soft tissue radionecrosis Status: Chronic Code(s): L59.8 - Other specified disorders of the skin and subcutaneous tissue related to radiation; Y84.2 - Radiological procedure and radiotherapy as the cause of abnormal reaction of the patient, or of later complication, without mention of misadventure at the time of the procedure Type of Wound Date of Service: 04/15/19 Chief Complaint: Recurrent pressure sore right ischial area. 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 Wound care - [facility]. Ideally daily, but he now relies on home health to do his dressing changes since his mother is and he is living on his own. Operative culture - Proteus mirabilis. He was discharged on Cefepime IV which he has completed. Pathology - negative for osteomyelitis. Prealbumin from 02/12/19 was 25.8. Encourage nutritional supplementation with protein to help the healing process. CT Pelvis from 02/13/19 showed continued air-filled deep decubitus ulcer extending down to the surface of the right ischial tuberosity with chronic sclerosis and erosive changes of the right ischial tuberosity that are not substantially changed from the prior exam of September 18, 2018. No further bone erosion or extension. No additional acute pelvic findings or changes.. Today he denies fever. His appetite is good. Progress of Wound: Recent operative debridement on 02/11/19. - Physical Exam Vital Signs Temp Pulse Resp BP 98.0 F 74 16 136/53 H 04/13/19 00:37 04/15/19 13:18 04/15/19 13:18 04/15/19 13:18 General: Alert, Oriented x3, Cooperative HEENT: Atraumatic Oral: Moist Mucosa Lungs: Normal air movement Cardiovascular: Regular rate Abdomen: Soft Extremities: Capillary Refill Less than 3 Seconds Skin: Ulcer/ Wound - right ischial ulcer, stage 4 with bone exposure. The jessi wound continues to be pink but is not mottled today as it was last week. Wound Measurements and Assessment WC - Nurse 1 - General Ulcer Measurement Start: 04/15/19 13:18 Freq: Status: Active Protocol: Activity Type Activity Date Activity User E-Sign Co-Sign Detail Recorded Client Recorded Date Recorded By Document 04/15/19 13:18 [facility] [id number] 04/15/19 13:26 [facility] 04/15/19 13:18 Wound Center Nurse 1 [Ulcer Assessment] #11 Right Buttock post op -Combined with other wound No -Current Size (cm) - Length 6.6 -Current Size (cm) - Width 2.1 -Current Size (cm) - Depth 2.1 -Total Square Cm 13.86 -Photo Taken No -Epithelialization None Present -Tunneling No -Undermining/Tunneling Yes -Undermining/Tunneling Starts (O' 11 clock) -Undermining/Tunneling Ends (O'clock) 5 -Maximum Distance (cm) 4.5 -Circular Undermining No -Exudate Amt None Present -Wound Margin Distinct, Outline Attached -Granulation Amt Large (67-100%) -Granulation Quality Pale,[place] -Slough/Fibrin Yes -Necrosis Amt Small (1-33%) -Necrotic Tissue Type Adherent Slough -Structure Exposed Bone -Texture (Jessi-wound Skin Appearance) Assessed, Scarring -Moisture (Jessi-wound Skin Appearance Assessed,Dry/ ) Scaly -Color (Jessi-wound Skin Appearance) Assessed -Temperature (Jessi-wound Skin No Abnormality Appearance) (Pt Warm) -Tenderness on Palpation (Jessi-wound No Skin Appearance) -Ulcer Cleansing Rinsed/ Irrigated with Saline -Foul Odor after Cleansing No -Anesthetic Used 5% Lidocaine Gel WC - Nurse 2 - General Ulcer CM Notes Start: 04/15/19 13:18 Freq: Status: Active Protocol: Activity Type Activity Date Activity User E-Sign Co-Sign Detail Recorded Client Recorded Date Recorded By Document 04/15/19 14:12 [id number] 04/15/19 14:16 04/15/19 14:12 Wound Center Nurse 2 [Procedure/Treatment] -Time 14:12 -Correct Patient Yes -Correct Side, Site, Position Yes -Correct Procedure Yes -Procedure Performed Yes -Type of Procedure Debridement -Clinical Debridement Muscle -Post Debridement Size (cm) - Length 7 -Post Debridement Size (cm) - Width 3 -Post Debridement Size (cm) - Depth 3.1 -Total Square Cm 21 -Wound/Ulcer Outcome Not Healed -Ulcer Cleansing Rinsed/ Irrigated with Saline -Foul Odor after Cleansing No -Bioengineered Tissue No -Bleeding Controlled with Pressure -Other tunnel-3-5:00-- 4.5cm noon-- -3.0cm -Offloading No -Treatment Response Procedure Tolerated Well [See Physician Procedure note for Specifics] Pain Scale: 0-10 Numeric [Pain] -Is Patient Pain Free? Yes Musculoskeletal: Tenderness Neurological: Neuro grossly intact Psych/Mental Status: Normal Affect, Appropriate Debridement Note Post-Debridement Measurements/Treatment WC - Nurse 2 - General Ulcer CM Notes Start: 04/15/19 13:18 Freq: Status: Active Protocol: Activity Type Activity Date Activity User E-Sign Co-Sign Detail Recorded Client Recorded Date Recorded By Document 04/15/19 14:12 [facility] [id number] 04/15/19 14:16 ARNOLD 04/15/19 14:12 Wound Center Nurse 2 #11 Right Buttock post op -Time 14:12 -Correct Patient Yes -Correct Side, Site, Position Yes -Correct Procedure Yes -Procedure Performed Yes -Type of Procedure Debridement -Clinical Debridement Muscle -Post Debridement Size (cm) - Length 7 -Post Debridement Size (cm) - Width 3 -Post Debridement Size (cm) - Depth 3.1 -Total Square Cm 21 -Wound/Ulcer Outcome Not Healed -Ulcer Cleansing Rinsed/ Irrigated with Saline -Foul Odor after Cleansing No -Bioengineered Tissue No -Bleeding Controlled with Pressure -Other tunnel-3-5:00-- 4.5cm noon-- -3.0cm -Offloading No -Treatment Response Procedure Tolerated Well Pain Scale: 0-10 Numeric Is Patient Pain Free? Yes Wound debrided: ischial ulcer Laterality: Right Type of Debridement: Excisional debridement Anesthesia Used: 4% Lidocaine Solution Depth: Down to and including healthy tissue, in the subcutaneous layer, to muscle Percentage of wound debrided: 100 Instrument Used: 7mm curette Tissue Removed: Subcutaneous tissue and slough, into the muscle. Severity: Fat Layer Exposed - bone and muscle are exposed Amount of bleeding with debridement: Mild Bleeding Controlled with: Pressure Patient tolerated procedure well Assessment/Plan Assessment: 1. Recurrent right ischial pressure sore, Stage IV. 2. 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 3. Osteomyelitis. 4. MRSA. 5. Infection left knee with underlying total knee replacement recently treated with IV Vancomycin. 6. History of anal CA treated with chemotherapy and radiation therapy. Plan: Continue Dakin's dressing changes ideally daily but he may have to have it 3 times per week because he relies on home health to do the dressing changes and he is not able to do it himself. Concerned about the skin surrounding the ulcer, this week it is pink but is not mottled. He has been sitting more now that he is home. Instructed him to try to make sure not to sit for long periods of time and to try to off load. He has started using a cushions that he has to help with off loading. He is having difficulty with the recent passing of his mother. He is currently living alone and has to sell her house, so he needs to find a new place to live. Prealbumin from 02/12/19 was 25.8. Encourage nutritional supplementation with protein to help the healing process. Since the pathology is negative for osteomyelitis, after the IV antibiotics are completed, can schedule further debridement with wound closure with a myocutaneous flap. Will need to obtain the old records from [facility] before any myocutaneous flap surgery is performed. Followup 1 week to re evaluate jessi wound. Code Visit [id number]: [id number] Global Visit
[2019-04-29 13:15] VITALS: BP 118/52; PULSE 85; RESP 18; TEMP 36.2; BMI 28.5
--- NOTE | 2019-04-29 14:47 | PCM.WC.PN ---
(1) Pressure sore of left ischium, stage 2 Status: Acute Current Visit: Yes Code(s): L89.322 - Pressure ulcer of left buttock, stage 2 (2) Right ischial pressure sore, stage 4 Status: Chronic Current Visit: Yes Code(s): L89.314 - Pressure ulcer of right buttock, stage 4 (3) Chronic osteomyelitis of right pelvic region Status: Chronic Current Visit: Yes Code(s): M86.651 - Other chronic osteomyelitis, right thigh (4) History of anal cancer Status: Chronic Current Visit: Yes Code(s): Z85.048 - Personal history of other malignant neoplasm of rectum, rectosigmoid junction, and anus (5) Late effect of radiation Status: Chronic Current Visit: Yes Code(s): T66.XXXS - Radiation sickness, unspecified, sequela Comment: right ischial area (6) Soft tissue radionecrosis Status: Chronic Current Visit: Yes Code(s): L59.8 - Other specified disorders of the skin and subcutaneous tissue related to radiation; Y84.2 - Radiological procedure and radiotherapy as the cause of abnormal reaction of the patient, or of later complication, without mention of misadventure at the time of the procedure Type of Wound Date of Service: 04/29/19 Chief Complaint: Recurrent pressure sore right ischial area. 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 Wound care - [facility]. Ideally daily, but he now relies on home health to do his dressing changes since his mother is and he is living on his own. Dressings are every other day. New pressure ulcer today that is stage II over left ischial area. Patient is living alone and sitting in his recliner all the time. Operative culture - Proteus mirabilis. He was discharged on Cefepime IV which he has completed. Pathology - negative for osteomyelitis. Prealbumin from 02/12/19 was 25.8. Encourage nutritional supplementation with protein to help the healing process. CT Pelvis from 02/13/19 showed continued air-filled deep decubitus ulcer extending down to the surface of the right ischial tuberosity with chronic sclerosis and erosive changes of the right ischial tuberosity that are not substantially changed from the prior exam of September 18, 2018. No further bone erosion or extension. No additional acute pelvic findings or changes.. Today he denies fever. His appetite is good. Progress of Wound: Recent operative debridement on 02/11/19. New stage 2 pressure ulcer on left ischial area. - Physical Exam Vital Signs Temp Pulse Resp BP 97.2 F L 85 18 118/52 L 04/29/19 13:15 04/29/19 13:15 04/29/19 13:15 04/29/19 13:15 General: Alert, Oriented x3 HEENT: Atraumatic Oral: Moist Mucosa Lungs: Normal air movement Cardiovascular: Regular rate Extremities: Capillary Refill Less than 3 Seconds Skin: Ulcer/ Wound - Right ischial stage IV ulcer with bone exposure. New right pressure ischial ulcer stage II. Wound Measurements and Assessment WC - Nurse 1 - General Ulcer Measurement Start: 04/15/19 13:18 Freq: Status: Active Protocol: Activity Type Activity Date Activity User E-Sign Co-Sign Detail Recorded Client Recorded Date Recorded By Document 04/29/19 13:15 DL [id number] 04/29/19 13:31 DL 04/29/19 13:15 Wound Center Nurse 1 [Ulcer Assessment] #12 L Ischium -Current Size (cm) - Length 1.5 -Current Size (cm) - Width 0.6 -Current Size (cm) - Depth 0.1 -Total Square Cm 0.90 -Photo Taken Yes -Exudate Amt None Present -Wound Margin Thickened -Granulation Amt None Present (0 %) -Necrosis Amt Large (67-100%) -Necrotic Tissue Type Adherent Slough -Structure Exposed N/A -Texture (Nathalie-wound Skin Appearance) Scarring -Moisture (Nathalie-wound Skin Appearance No Abnormality ) -Color (Nathalie-wound Skin Appearance) Erythema,Rubor -Temperature (Nathalie-wound Skin No Abnormality Appearance) (Pt Warm) -Tenderness on Palpation (Nathalie-wound Yes Skin Appearance) -Ulcer Cleansing Wound Cleanser -Foul Odor after Cleansing No -Anesthetic Used 5% Lidocaine Gel #11 Right Buttock post op -Current Size (cm) - Length 6 -Current Size (cm) - Width 2.6 -Current Size (cm) - Depth 6 -Total Square Cm 15.6 -Photo Taken No -Undermining/Tunneling Starts (O' 3 clock) -Undermining/Tunneling Ends (O'clock) 5 -Maximum Distance (cm) 4.3 -Exudate Amt Medium -Exudate Type Serosanguineous -Wound Margin Thickened & Rolled Under -Granulation Amt Medium (34-66%) -Granulation Quality [place] -Necrosis Amt Medium (34-66%) -Necrotic Tissue Type Adherent Slough -Structure Exposed Bone -Texture (Nathalie-wound Skin Appearance) Scarring -Moisture (Nathalie-wound Skin Appearance Dry/Scaly ) -Color (Nathalie-wound Skin Appearance) Rubor -Temperature (Nathalie-wound Skin No Abnormality Appearance) (Pt Warm) -Tenderness on Palpation (Nathalie-wound Yes Skin Appearance) -Ulcer Cleansing Wound Cleanser -Foul Odor after Cleansing No -Anesthetic Used 4% Lidocaine Solution WC - Nurse 2 - General Ulcer CM Notes Start: 04/15/19 13:18 Freq: Status: Active Protocol: Activity Type Activity Date Activity User E-Sign Co-Sign Detail Recorded Client Recorded Date Recorded By Document 04/29/19 13:48 ARNOLD [id number] 04/29/19 13:51 ARNOLD 04/29/19 13:48 Wound Center Nurse 2 [Procedure/Treatment] #12 L Ischium -Time 13:48 -Correct Patient Yes -Correct Side, Site, Position Yes -Correct Procedure Yes -Procedure Performed Yes -Type of Procedure Debridement -Clinical Debridement Subcutaneous -Post Debridement Size (cm) - Length 1.5 -Post Debridement Size (cm) - Width 1.5 -Post Debridement Size (cm) - Depth 0.2 -Total Square Cm 2.25 -Wound/Ulcer Outcome Not Healed -Ulcer Cleansing Rinsed/ Irrigated with Saline -Foul Odor after Cleansing No -Bioengineered Tissue No -Bleeding Controlled with Pressure -Offloading No -Treatment Response Procedure Tolerated Well #11 Right Buttock post op -Time 13:49 -Correct Patient Yes -Correct Side, Site, Position Yes -Correct Procedure Yes -Procedure Performed Yes -Type of Procedure Debridement -Clinical Debridement Muscle -Post Debridement Size (cm) - Length 7.5 -Post Debridement Size (cm) - Width 3 -Post Debridement Size (cm) - Depth 3.1 -Total Square Cm 22.5 -Wound/Ulcer Outcome Not Healed -Ulcer Cleansing Rinsed/ Irrigated with Saline -Foul Odor after Cleansing No -Bioengineered Tissue No -Bleeding Controlled with Pressure -Offloading No -Treatment Response Procedure Tolerated Well [See Physician Procedure note for Specifics] Pain Scale: 0-10 Numeric [Pain] -Is Patient Pain Free? Yes Musculoskeletal: Tenderness Neurological: Neuro grossly intact Psych/Mental Status: Normal Affect, Appropriate Debridement Note Post-Debridement Measurements/Treatment WC - Nurse 2 - General Ulcer CM Notes Start: 04/15/19 13:18 Freq: Status: Active Protocol: Activity Type Activity Date Activity User E-Sign Co-Sign Detail Recorded Client Recorded Date Recorded By Document 04/15/19 14:12 [id number] 04/15/19 14:16 Document 04/29/19 13:48 [id number] 04/29/19 13:51 04/15/19 04/29/19 14:12 13:48 Wound Center Nurse 2 #12 L Ischium -Time 13:48 -Correct Patient Yes -Correct Side, Site, Position Yes -Correct Procedure Yes -Procedure Performed Yes -Type of Procedure Debridement -Clinical Debridement Subcutaneous -Post Debridement Size (cm) - Length 1.5 -Post Debridement Size (cm) - Width 1.5 -Post Debridement Size (cm) - Depth 0.2 -Total Square Cm 2.25 -Wound/Ulcer Outcome Not Healed -Ulcer Cleansing Rinsed/ Irrigated with Saline -Foul Odor after Cleansing No -Bioengineered Tissue No -Bleeding Controlled with Pressure -Offloading No -Treatment Response Procedure Tolerated Well #11 Right Buttock post op -Time 14:12 13:49 -Correct Patient Yes Yes -Correct Side, Site, Position Yes Yes -Correct Procedure Yes Yes -Procedure Performed Yes Yes -Type of Procedure Debridement Debridement -Clinical Debridement Muscle Muscle -Post Debridement Size (cm) - Length 7 7.5 -Post Debridement Size (cm) - Width 3 3 -Post Debridement Size (cm) - Depth 3.1 3.1 -Total Square Cm 21 22.5 -Wound/Ulcer Outcome Not Healed Not Healed -Ulcer Cleansing Rinsed/ Rinsed/ Irrigated with Irrigated with Saline Saline -Foul Odor after Cleansing No No -Bioengineered Tissue No No -Bleeding Controlled with Pressure Pressure -Other tunnel-3-5:00-- 4.5cm noon-- -3.0cm -Offloading No No -Treatment Response Procedure Procedure Tolerated Well Tolerated Well Pain Scale: 0-10 Numeric Is Patient Pain Free? Yes Yes Wound debrided: Ishcial ulcer stage IV Laterality: Right Type of Debridement: Excisional debridement Anesthesia Used: 5% Lidocaine Gel Depth: Down to and including healthy tissue, in the subcutaneous layer, to muscle Percentage of wound debrided: 100 Instrument Used: 7mm curette Tissue Removed: Subcutaneous tissue and slough into the muscle with bone exposure Severity: Fat Layer Exposed Amount of bleeding with debridement: Mild Bleeding Controlled with: Pressure Patient tolerated procedure well - Additional Wound Wound debrided: Ischial stage II pressure ulcer Laterality: Left Type of Debridement: Excisional debridement Anesthesia Used: 5% Lidocaine Gel Depth: Down to and including healthy tissue, in the subcutaneous layer Percentage of wound debrided: 100 Instrument Used: 3mm curette Tissue Removed: subcutanous tissue and slough Severity: Limited To Skin Breakdown Amount of bleeding with debridement: Mild Bleeding Controlled with: Pressure Patient tolerated procedure: Patient tolerated procedure well Assessment/Plan Active Problems Pressure sore of left ischium, stage 2 (Acute) 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) History of anal cancer (Chronic) 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 Recurrent right ischial pressure sore, Stage IV. 2. 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 3. Osteomyelitis. 4. MRSA. 5. Infection left knee with underlying total knee replacement recently treated with IV Vancomycin. 6. History of anal CA treated with chemotherapy and radiation therapy. Plan: Continue Azar's dressing changes to the right ischial ulcer ideally daily but he may have to have it 3 times per week because he relies on home health to do the dressing changes and he is not able to do it himself. He now has a left ischial stage II pressure ulcer- will do moistened Promogram and cover with Allevyn 3 times per week. He has been sitting more now that he is home. He is sitting in his recliner more. Instructed him to try to make sure not to sit for long periods of time and to try to off load. He has started using a cushions that he has to help with off loading. He is having difficulty with the recent passing of his mother. He is currently living alone and has to sell her house, so he needs to find a new place to live. Prealbumin from 02/12/19 was 25.8. Encourage nutritional supplementation with protein to help the healing process. Since the pathology is negative for osteomyelitis, after the IV antibiotics are completed, can schedule further debridement with wound closure with a myocutaneous flap. Will need to obtain the old records from [facility] before any myocutaneous flap surgery is performed. He states he needs his Doxycycline renewed that he was given from [facility]. He states that he is not able to get in touch with ID from there and they told him they wanted him on it for several months because of his osteomylitis. Will renew for 30 days. Followup 2 weeks. Code Visit [id number]-[id number]: [id number] Global Visit - right ischial ulcer Multi Select Codes - Integumentary Integumentary CPT Codes: 15138 Sue subq tissue 20 sq cm/< - new left ischial ulcer
== END 2019-05-11 23:59 ==
LOC: WC 13:15
PROVIDERS: Family Provider Internal Medicine; PCP Internal Medicine; Visit Provider Nurse Practitioner Family
DX: L89.214 Pressure ulcer of right hip, stage 4 (principal); Z85.048 Personal history of other malignant neoplasm of rectum, rectosigmoid junction, and anus; L59.8 Other specified disorders of the skin and subcutaneous tissue related to radiation; Y84.2 Radiological procedure and radiotherapy as the cause of abnormal reaction of the patient, or of later complication, without mention of misadventure at the time of the procedure; Z86.14 Personal history of Methicillin resistant Staphylococcus aureus infection; M86.651 Other chronic osteomyelitis, right thigh; L89.222 Pressure ulcer of left hip, stage 2
CPT/HCPCS: 11042; 11043; 11046

== ENCOUNTER 2019-06-03 13:45 | Outpatient (RCR) | payer MEDICARE, MEDICAID, SELFPAY ==
[2019-05-12 00:30] VITALS: BP 118/52; PULSE 85; RESP 18; TEMP 36.2
[2019-05-13 13:28] VITALS: BP 116/59; PULSE 68; RESP 18; TEMP 36.9; BMI 28.5
--- NOTE | 2019-05-13 16:29 | PCM.WC.PN ---
(1) Right ischial pressure sore, stage 4 Status: Chronic Current Visit: Yes Code(s): L89.314 - Pressure ulcer of right buttock, stage 4 (2) Methicillin resistant Staphylococcus aureus infection Status: Inactive Current Visit: Yes Code(s): A49.02 - Methicillin resistant Staphylococcus aureus infection, unspecified site (3) Soft tissue radionecrosis Status: Chronic Current Visit: Yes Code(s): L59.8 - Other specified disorders of the skin and subcutaneous tissue related to radiation; Y84.2 - Radiological procedure and radiotherapy as the cause of abnormal reaction of the patient, or of later complication, without mention of misadventure at the time of the procedure (4) Anal cancer Status: Chronic Current Visit: Yes Code(s): C21.0 - Malignant neoplasm of anus, unspecified Type of Wound Date of Service: 05/13/19 Chief Complaint: Recurrent pressure sore right ischial area. 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 Wound care - Dakin's. Ideally daily, but he now relies on home health to do his dressing changes since his mother is and he is living on his own. Dressings are every other day. New pressure ulcer is a stage II over left ischial area. He is applying moistened Promogram with Allyvyn dressing on the days that home health comes to assist him. Patient is living alone and sitting in his recliner all the time. Operative culture - Proteus mirabilis. He was discharged on Cefepime IV which he has completed. Pathology - negative for osteomyelitis. Prealbumin from 02/12/19 was 25.8. Encourage nutritional supplementation with protein to help the healing process. CT Pelvis from 02/13/19 showed continued air-filled deep decubitus ulcer extending down to the surface of the right ischial tuberosity with chronic sclerosis and erosive changes of the right ischial tuberosity that are not substantially changed from the prior exam of September 18, 2018. No further bone erosion or extension. No additional acute pelvic findings or changes.. Today he denies fever. His appetite is good. Progress of Wound: Recent operative debridement on 02/11/19. New stage 2 pressure ulcer on left ischial area. - Physical Exam Vital Signs Temp Pulse Resp BP 98.5 F 68 18 116/59 L 05/13/19 13:28 05/13/19 13:28 05/13/19 13:28 05/13/19 13:28 General: Alert, Oriented x3 HEENT: Atraumatic Oral: Moist Mucosa Lungs: Normal air movement Cardiovascular: Regular rate Extremities: Capillary Refill Less than 3 Seconds Skin: Ulcer/ Wound - Right ischial ulcer and left buttock stage 2 ulcer Wound Measurements and Assessment WC - Nurse 1 - General Ulcer Measurement Start: 05/13/19 13:27 Freq: Status: Active Protocol: Activity Type Activity Date Activity User E-Sign Co-Sign Detail Recorded Client Recorded Date Recorded By Document 05/13/19 13:28 DL [id number] 05/13/19 13:31 DL 05/13/19 13:28 Wound Center Nurse 1 [Ulcer Assessment] #12 L Ischium -Current Size (cm) - Length 1.6 -Current Size (cm) - Width 0.8 -Current Size (cm) - Depth 0.1 -Total Square Cm 1.28 -Photo Taken No -Exudate Amt Small -Exudate Type Serosanguineous -Wound Margin Distinct, Outline Attached -Necrosis Amt Large (67-100%) -Necrotic Tissue Type Adherent Slough -Structure Exposed N/A -Texture (Nathalie-wound Skin Appearance) Scarring -Moisture (Nathalie-wound Skin Appearance No Abnormality ) -Color (Nathalie-wound Skin Appearance) Erythema,Rubor -Temperature (Nathalie-wound Skin No Abnormality Appearance) (Pt Warm) -Tenderness on Palpation (Nathalie-wound Yes Skin Appearance) -Ulcer Cleansing Wound Cleanser -Foul Odor after Cleansing No -Anesthetic Used 4% Lidocaine Solution #11 Right Buttock post op -Current Size (cm) - Length 5 -Current Size (cm) - Width 2.4 -Current Size (cm) - Depth 2.6 -Total Square Cm 12.0 -Photo Taken No -Exudate Amt Medium -Exudate Type Serosanguineous -Wound Margin Thickened & Rolled Under -Granulation Amt Small (1-33%) -Granulation Quality Red -Necrosis Amt Large (67-100%) -Necrotic Tissue Type Adherent Slough -Texture (Nathalie-wound Skin Appearance) Excoriation, Scarring -Moisture (Nathaile-wound Skin Appearance Dry/Scaly ) -Color (Nathalie-wound Skin Appearance) Erythema,Rubor -Temperature (Nathalie-wound Skin No Abnormality Appearance) (Pt Warm) -Ulcer Cleansing Wound Cleanser -Foul Odor after Cleansing No -Anesthetic Used 4% Lidocaine Solution SKYLAR - Nurse 2 - General Ulcer CM Notes Start: 05/13/19 13:27 Freq: Status: Active Protocol: Activity Type Activity Date Activity User E-Sign Co-Sign Detail Recorded Client Recorded Date Recorded By Document 05/13/19 13:40 ARNOLD [id number] 05/13/19 13:47 ARNOLD 05/13/19 13:40 Wound Center Nurse 2 [Procedure/Treatment] #12 L Ischium -Time 13:42 -Correct Patient Yes -Correct Side, Site, Position Yes -Correct Procedure Yes -Procedure Performed Yes -Type of Procedure Debridement -Clinical Debridement Subcutaneous -Post Debridement Size (cm) - Length 1.5 -Post Debridement Size (cm) - Width 1 -Post Debridement Size (cm) - Depth 0.1 -Total Square Cm 1.5 -Wound/Ulcer Outcome Not Healed -Ulcer Cleansing Rinsed/ Irrigated with Saline -Foul Odor after Cleansing No -Bioengineered Tissue No -Bleeding Controlled with Pressure -Offloading No -Treatment Response Procedure Tolerated Well #11 Right Buttock post op -Time 13:42 -Correct Patient Yes -Correct Side, Site, Position Yes -Correct Procedure Yes -Procedure Performed Yes -Type of Procedure Debridement -Clinical Debridement Muscle -Post Debridement Size (cm) - Length 6.8 -Post Debridement Size (cm) - Width 3.0 -Post Debridement Size (cm) - Depth 2.7 -Total Square Cm 20.40 -Wound/Ulcer Outcome Not Healed -Ulcer Cleansing Rinsed/ Irrigated with Saline -Foul Odor after Cleansing No -Bioengineered Tissue No -Bleeding Controlled with Pressure -Other NOON---4 CM /// 4:00----4CM -Offloading No -Treatment Response Procedure Tolerated Well [See Physician Procedure note for Specifics] Pain Scale: 0-10 Numeric [Pain] -Is Patient Pain Free? Yes Musculoskeletal: Tenderness Neurological: Neuro grossly intact Psych/Mental Status: Normal Affect, Appropriate Debridement Note Post-Debridement Measurements/Treatment SKYLAR - Nurse 2 - General Ulcer CM Notes Start: 05/13/19 13:27 Freq: Status: Active Protocol: Activity Type Activity Date Activity User E-Sign Co-Sign Detail Recorded Client Recorded Date Recorded By Document 05/13/19 13:40 ARNOLD [id number] 05/13/19 13:47 ARNOLD 05/13/19 13:40 Wound Center Nurse 2 #12 L Ischium -Time 13:42 -Correct Patient Yes -Correct Side, Site, Position Yes -Correct Procedure Yes -Procedure Performed Yes -Type of Procedure Debridement -Clinical Debridement Subcutaneous -Post Debridement Size (cm) - Length 1.5 -Post Debridement Size (cm) - Width 1 -Post Debridement Size (cm) - Depth 0.1 -Total Square Cm 1.5 -Wound/Ulcer Outcome Not Healed -Ulcer Cleansing Rinsed/ Irrigated with Saline -Foul Odor after Cleansing No -Bioengineered Tissue No -Bleeding Controlled with Pressure -Offloading No -Treatment Response Procedure Tolerated Well #11 Right Buttock post op -Time 13:42 -Correct Patient Yes -Correct Side, Site, Position Yes -Correct Procedure Yes -Procedure Performed Yes -Type of Procedure Debridement -Clinical Debridement Muscle -Post Debridement Size (cm) - Length 6.8 -Post Debridement Size (cm) - Width 3.0 -Post Debridement Size (cm) - Depth 2.7 -Total Square Cm 20.40 -Wound/Ulcer Outcome Not Healed -Ulcer Cleansing Rinsed/ Irrigated with Saline -Foul Odor after Cleansing No -Bioengineered Tissue No -Bleeding Controlled with Pressure -Other NOON---4 CM /// 4:00----4CM -Offloading No -Treatment Response Procedure Tolerated Well Pain Scale: 0-10 Numeric Is Patient Pain Free? Yes Wound debrided: buttock, stage 2 ulcer Laterality: Left Type of Debridement: Excisional debridement Anesthesia Used: 5% Lidocaine Gel Depth: Down to and including healthy tissue, in the subcutaneous layer Percentage of wound debrided: 100 Instrument Used: 3mm curette Tissue Removed: subcutaneous tissue and slough Severity: Limited To Skin Breakdown Amount of bleeding with debridement: None Bleeding Controlled with: Pressure Patient tolerated procedure well - Additional Wound Wound debrided: ischial ulcer Laterality: Right Type of Debridement: Excisional debridement Anesthesia Used: 4% Lidocaine Solution, 5% Lidocaine Gel Depth: Down to and including healthy tissue, in the subcutaneous layer, to muscle Percentage of wound debrided: 100 Instrument Used: 7mm curette Tissue Removed: Subcutaneous tissue into the muscle with bone exposure Severity: Fat Layer Exposed Amount of bleeding with debridement: Mild Bleeding Controlled with: Pressure Patient tolerated procedure: Patient tolerated procedure well Assessment/Plan Active Problems 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) Right ischial pressure sore, 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) Anal cancer (Chronic) Assessment: 1. Recurrent right ischial pressure sore, Stage IV. 2. 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 3. Osteomyelitis. 4. MRSA. 5. Infection left knee with underlying total knee replacement recently treated with IV Vancomycin. 6. History of anal CA treated with chemotherapy and radiation therapy. Plan: Continue Dakin's dressing changes to the right ischial ulcer ideally daily but he may have to have it 3 times per week because he relies on home health to do the dressing changes and he is not able to do it himself. He now has a left ischial stage II pressure ulcer- will do moistened Promogram and cover with Allevyn 3 times per week. He has been sitting more now that he is home. He is sitting in his recliner more. Instructed him to try to make sure not to sit for long periods of time and to try to off load. He has started using a cushions that he has to help with off loading. He is having difficulty with the recent passing of his mother. He is currently living alone and has to sell her house, so he needs to find a new place to live. Discussed with him about assisted living and he states he is thinking about it. Prealbumin from 02/12/19 was 25.8. Encourage nutritional supplementation with protein to help the healing process. Since the pathology is negative for osteomyelitis, after the IV antibiotics are completed, can schedule further debridement with wound closure with a myocutaneous flap. Will need to obtain the old records from [facility] before any myocutaneous flap surgery is performed. He states he needs his Doxycycline renewed that he was given from [facility]. He states that he is not able to get in touch with ID from there and they told him they wanted him on it for several months because of his osteomylitis. Will renew for 30 days. Followup 3 weeks. Code Visit [id number]: [id number] Global Visit
[2019-06-03 13:16] VITALS: BP 115/46; PULSE 75; RESP 16; TEMP 36.3; BMI 28.5
--- NOTE | 2019-06-03 17:26 | PN.PCM_ITS ---
Type of Wound Date of Service: 06/04/19 Chief Complaint: Recurrent right ischial pressure sore, Stage IV, and recent left ischial pressure sore, Stage III. 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 Wound care - Dakin's dressing to the right ischial pressure sore. Ideally daily, but he now relies on home health to do his dressing changes since his mother is and he is living on his own. Dressings are every other day. Silver dressing to left ischial pressure sore. Patient is living alone and sitting in his recliner all the time. Operative culture - Proteus mirabilis. He was discharged on Cefepime IV which he has completed. Pathology - negative for osteomyelitis. Prealbumin from 02/12/19 was 25.8. Encourage nutritional supplementation with protein to help the healing process. CT Pelvis from 02/13/19 showed continued air-filled deep decubitus ulcer extending down to the surface of the right ischial tuberosity with chronic sclerosis and erosive changes of the right ischial tuberosity that are not substantially changed from the prior exam of September 18, 2018. No further bone erosion or extension. No additional acute pelvic findings or changes.. Today he denies fever. His appetite is good. Progress of Wound: Right ischial pressure sore stable and left ischial pressure sore stable. - Physical Exam Vital Signs Temp Pulse Resp BP 97.4 F L 75 16 115/46 L 06/03/19 13:16 06/03/19 13:16 06/03/19 13:16 06/03/19 13:16 Wound Measurements and Assessment WC - Nurse 1 - General Ulcer Measurement Start: 05/13/19 13:27 Freq: Status: Active Protocol: Activity Type Activity Date Activity User E-Sign Co-Sign Detail Recorded Client Recorded Date Recorded By Document 06/03/19 13:16 [facility] [id number] 06/03/19 13:22 [facility] 06/03/19 13:16 Wound Center Nurse 1 [Ulcer Assessment] #12 Left ischial pressure sore, Stage III -Combined with other wound No -Current Size (cm) - Length 1.1 -Current Size (cm) - Width 0.8 -Current Size (cm) - Depth 0.1 -Total Square Cm 0.88 -Photo Taken No -Epithelialization None Present -Tunneling No -Undermining/Tunneling No -Circular Undermining No -Exudate Amt None Present -Wound Margin Flat & Intact -Granulation Amt None Present (0 %) -Slough/Fibrin Yes -Necrosis Amt Large (67-100%) -Necrotic Tissue Type Adherent Slough -Texture (Nathalie-wound Skin Appearance) Assessed, Scarring -Moisture (Nathalie-wound Skin Appearance Assessed ) -Color (Nathalie-wound Skin Appearance) Assessed, Erythema -Temperature (Nathalie-wound Skin No Abnormality Appearance) (Pt Warm) -Tenderness on Palpation (Nathalie-wound No Skin Appearance) -Ulcer Cleansing Rinsed/ Irrigated with Saline -Foul Odor after Cleansing No -Anesthetic Used 4% Lidocaine Solution #11 Right ischial pressure sore, Stage IV -Combined with other wound No -Current Size (cm) - Length 7 -Current Size (cm) - Width 2.4 -Current Size (cm) - Depth 3 -Total Square Cm 16.8 -Photo Taken No -Epithelialization None Present -Tunneling No -Undermining/Tunneling Yes -Undermining/Tunneling Starts (O' 12 clock) -Undermining/Tunneling Ends (O'clock) 4 -Maximum Distance (cm) 4 -Circular Undermining No -Exudate Amt Small -Exudate Type Serosanguineous -Wound Margin Distinct, Outline Attached -Granulation Amt Medium (34-66%) -Granulation Quality Red -Slough/Fibrin Yes -Necrosis Amt Medium (34-66%) -Necrotic Tissue Type Adherent Slough -Structure Exposed Bone -Texture (Nathalie-wound Skin Appearance) Assessed, Scarring -Moisture (Nathalie-wound Skin Appearance Assessed ) -Color (Nathalie-wound Skin Appearance) Assessed -Temperature (Nathalie-wound Skin No Abnormality Appearance) (Pt Warm) -Tenderness on Palpation (Nathalie-wound No Skin Appearance) -Ulcer Cleansing Rinsed/ Irrigated with Saline -Foul Odor after Cleansing No -Anesthetic Used 4% Lidocaine Solution WC - Nurse 2 - General Ulcer CM Notes Start: 05/13/19 13:27 Freq: Status: Active Protocol: Activity Type Activity Date Activity User E-Sign Co-Sign Detail Recorded Client Recorded Date Recorded By Document 06/03/19 13:43 ARNOLD [id number] 06/03/19 13:45 ARNOLD 06/03/19 13:43 Wound Center Nurse 2 [Procedure/Treatment] #12 L Ischial pressure sore, Stage III -Time 13:44 -Correct Patient Yes -Correct Side, Site, Position Yes -Correct Procedure Yes -Procedure Performed Yes -Type of Procedure Debridement -Clinical Debridement Subcutaneous -Post Debridement Size (cm) - Length 1.2 -Post Debridement Size (cm) - Width 0.8 -Post Debridement Size (cm) - Depth 0.1 -Total Square Cm 0.96 -Wound/Ulcer Outcome Not Healed -Ulcer Cleansing Rinsed/ Irrigated with Saline -Foul Odor after Cleansing No -Bioengineered Tissue No -Bleeding Controlled with Pressure -Offloading No -Treatment Response Procedure Tolerated Well #11 Right ischial pressure sore, Stage IV -Time 13:44 -Correct Patient Yes -Correct Side, Site, Position Yes -Correct Procedure Yes -Procedure Performed Yes -Type of Procedure Debridement -Clinical Debridement Muscle -Post Debridement Size (cm) - Length 7 -Post Debridement Size (cm) - Width 2.5 -Post Debridement Size (cm) - Depth 3.0 -Total Square Cm 17.5 -Wound/Ulcer Outcome Not Healed -Ulcer Cleansing Rinsed/ Irrigated with Saline -Foul Odor after Cleansing No -Bioengineered Tissue No -Bleeding Controlled with Pressure -Offloading No -Treatment Response Procedure Tolerated Well [See Physician Procedure note for Specifics] Pain Scale: 0-10 Numeric [Pain] -Is Patient Pain Free? Yes Debridement Note Post-Debridement Measurements/Treatment WC - Nurse 2 - General Ulcer CM Notes Start: 05/13/19 13:27 Freq: Status: Active Protocol: Activity Type Activity Date Activity User E-Sign Co-Sign Detail Recorded Client Recorded Date Recorded By Document 05/13/19 13:40 [id number] 05/13/19 13:47 Document 06/03/19 13:43 [id number] 06/03/19 13:45 05/13/19 06/03/19 13:40 13:43 Wound Center Nurse 2 #12 L Ischial pressure sore, Stage III -Time 13:42 13:44 -Correct Patient Yes Yes -Correct Side, Site, Position Yes Yes -Correct Procedure Yes Yes -Procedure Performed Yes Yes -Type of Procedure Debridement Debridement -Clinical Debridement Subcutaneous Subcutaneous -Post Debridement Size (cm) - Length 1.5 1.2 -Post Debridement Size (cm) - Width 1 0.8 -Post Debridement Size (cm) - Depth 0.1 0.1 -Total Square Cm 1.5 0.96 -Wound/Ulcer Outcome Not Healed Not Healed -Ulcer Cleansing Rinsed/ Rinsed/ Irrigated with Irrigated with Saline Saline -Foul Odor after Cleansing No No -Bioengineered Tissue No No -Bleeding Controlled with Pressure Pressure -Offloading No No -Treatment Response Procedure Procedure Tolerated Well Tolerated Well #11 Right ischial pressure sore, Stage IV -Time 13:42 13:44 -Correct Patient Yes Yes -Correct Side, Site, Position Yes Yes -Correct Procedure Yes Yes -Procedure Performed Yes Yes -Type of Procedure Debridement Debridement -Clinical Debridement Muscle Muscle -Post Debridement Size (cm) - Length 6.8 7 -Post Debridement Size (cm) - Width 3.0 2.5 -Post Debridement Size (cm) - Depth 2.7 3.0 -Total Square Cm 20.40 17.5 -Wound/Ulcer Outcome Not Healed Not Healed -Ulcer Cleansing Rinsed/ Rinsed/ Irrigated with Irrigated with Saline Saline -Foul Odor after Cleansing No No -Bioengineered Tissue No No -Bleeding Controlled with Pressure Pressure -Other NOON---4 CM /// 4:00----4CM -Offloading No No -Treatment Response Procedure Procedure Tolerated Well Tolerated Well Pain Scale: 0-10 Numeric Is Patient Pain Free? Yes Yes Wound debrided: #11 Right ischial area. Laterality: Right Wound Grade/Stage: IV. Type of Debridement: Excisional debridement Anesthesia Used: 4% Lidocaine Solution Depth: Down to and including healthy tissue, in the subcutaneous layer, to muscle, to bone - bone is exposed but not debrided. Percentage of wound debrided: 100 Instrument Used: 5mm curette Tissue Removed: subcutaneous tissue and muscle. Severity: Fat Layer Exposed - muscle exposed. bone is exposed but not debrided. Amount of bleeding with debridement: Mild Bleeding Controlled with: Pressure Patient tolerated procedure well - Additional Wound Wound debrided: #12 Left ischial area. Laterality: Left Wound Grade/Stage: III. Type of Debridement: Excisional debridement Anesthesia Used: 4% Lidocaine Solution Depth: Down to and including healthy tissue, in the subcutaneous layer Percentage of wound debrided: 100 Instrument Used: 3mm curette Tissue Removed: subcutaneous tissue. Severity: Fat Layer Exposed Amount of bleeding with debridement: Mild Bleeding Controlled with: Pressure Patient tolerated procedure: Patient tolerated procedure well Assessment/Plan Active Problems 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) Right ischial pressure sore, 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) Anal cancer (Chronic) Assessment: 1. Recurrent right ischial pressure sore, Stage IV. 2. 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 3. Osteomyelitis. 4. History of MRSA. 5. Left ischial pressure sore, Stage III. 6. History of anal CA treated with chemotherapy and radiation therapy. Plan: Continue Dakin's dressing changes to the right ischial ulcer ideally daily but he may have to have it 3 times per week because he relies on home health to do the dressing changes and he is not able to do it himself. There is the presence of a periwound rash so the Dakin's is on hold and Silver dressing changes will be started. He is aware of the possibility that if the right ischial pressure sore worsens because of suboptimal wound care, then he would need to be admitted for further surgery and for evaluation for an ECF. He voiced understanding. Silver dressing was also applied to the left ischial pressure sore. He has been sitting more now that he is home. He is sitting in his recliner more. Instructed him to try to make sure not to sit for long periods of time and to try to off load. He has started using a cushion that he has to help with off loading. He is having difficulty with the recent passing of his mother. He is currently living alone and has to sell her house, so he needs to find a new place to live. Discussed with him about assisted living and he states he is thinking about it. Prealbumin from 02/12/19 was 25.8. Encourage nutritional supplementation with protein to help the healing process. Since the pathology is negative for osteomyelitis, after the IV antibiotics are completed, can schedule further debridement with wound closure with a myocutaneous flap. However the flap is elective and is on hold because of the Coronavirus pandemic. When the Coronavirus is contained, can then proceed with further debridement and partial ostectomy prior to wound closure with a myocutaneous flap. Depending on how much the left ischial pressure sore progresses down to the bone, additional surgery may be necessary there as well. Will need to obtain the old records from [facility] before any myocutaneous flap surgery is performed. Followup 2 weeks. 111xxx-[id number]: [id number] Sue musc/fascia 20 sq cm/< - ICD-10 - L89.314, M86.651, T66.xxxS, L59.8, Z86.14, Z85.048 Multi Select Codes - Integumentary Integumentary CPT Codes: 23174 Sue subq tissue 20 sq cm/< - ICD-10 - L89.323, M86.651, T66.xxxS, L59.8, Z86.14, Z85.048
== END 2019-06-11 23:59 ==
LOC: WC 13:45
PROVIDERS: Family Provider Internal Medicine; PCP Internal Medicine; Visit Provider Nurse Practitioner Family
DX: L89.214 Pressure ulcer of right hip, stage 4 (principal); Z86.14 Personal history of Methicillin resistant Staphylococcus aureus infection; L59.8 Other specified disorders of the skin and subcutaneous tissue related to radiation; Y84.2 Radiological procedure and radiotherapy as the cause of abnormal reaction of the patient, or of later complication, without mention of misadventure at the time of the procedure; C21.0 Malignant neoplasm of anus, unspecified; L89.222 Pressure ulcer of left hip, stage 2; M86.68 Other chronic osteomyelitis, other site; L89.223 Pressure ulcer of left hip, stage 3
CPT/HCPCS: 11042; 11043; 11046

== ENCOUNTER 2019-07-08 11:00 | Outpatient (RCR) | payer MEDICARE, MEDICAID, SELFPAY ==
[2019-06-12 00:27] VITALS: BP 115/46; PULSE 75; RESP 16; TEMP 36.3
[2019-06-17 13:09] VITALS: BP 119/46; PULSE 86; RESP 18; TEMP 36.9; BMI 28.5
--- NOTE | 2019-06-17 15:54 | PCM.WC.PN ---
(1) Pressure sore of left ischium, stage 3 Status: Chronic Current Visit: Yes Code(s): L89.323 - Pressure ulcer of left buttock, stage 3 (2) Right ischial pressure sore, stage 4 Status: Chronic Current Visit: Yes Code(s): L89.314 - Pressure ulcer of right buttock, stage 4 (3) Candidal skin infection Status: Acute Current Visit: Yes Code(s): B37.2 - Candidiasis of skin and nail (4) Chronic osteomyelitis of right pelvic region Status: Chronic Current Visit: Yes Code(s): M86.651 - Other chronic osteomyelitis, right thigh (5) Personal history of Methicillin resistant Staphylococcus aureus infection Status: Chronic Current Visit: Yes Code(s): Z86.14 - Personal history of Methicillin resistant Staphylococcus aureus infection Type of Wound Date of Service: 06/17/19 Chief Complaint: Recurrent right ischial pressure sore, Stage IV, and recent left ischial pressure sore, Stage III. 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 Wound care - Dakin's dressing to the right ischial pressure sore. Ideally daily, but he now relies on home health to do his dressing changes since his mother is and he is living on his own. Dressings are every other day. Silver dressing to left ischial pressure sore Monday, Monday and Monday when home health changes it. Periwound is excoriated with what appears to be a yeast infection. He states he has nystatin cream at home that he will try to apply twice daily. Will also start him on Diflucan daily for 10 days (he previously has been prescribed this and has tolerated it well with his other medications). Patient is living alone and sitting in his recliner all the time. Operative culture - Proteus mirabilis. He was discharged on Cefepime IV which he has completed. Pathology - negative for osteomyelitis. Prealbumin from 02/12/19 was 25.8. Encourage nutritional supplementation with protein to help the healing process. CT Pelvis from 02/13/19 showed continued air-filled deep decubitus ulcer extending down to the surface of the right ischial tuberosity with chronic sclerosis and erosive changes of the right ischial tuberosity that are not substantially changed from the prior exam of September 18, 2018. No further bone erosion or extension. No additional acute pelvic findings or changes.. Today he denies fever. His appetite is good. Progress of Wound: Right ischial pressure sore stable and left ischial pressure sore stable. Periwound is excoriated with a yeast infection. - Physical Exam Vital Signs Temp Pulse Resp BP 98.4 F 86 18 119/46 L 06/17/19 13:09 06/17/19 13:09 06/17/19 13:09 06/17/19 13:09 General: Alert, Oriented x3, Cooperative HEENT: Atraumatic Oral: Moist Mucosa Lungs: Normal air movement Cardiovascular: Regular rate Extremities: No edema, Capillary Refill Less than 3 Seconds Skin: Ulcer/ Wound - Right ischial stage 4 ulcer. Periwound is very excoriated with raised, itchy, red rash. Wound Measurements and Assessment WC - Nurse 1 - General Ulcer Measurement Start: 06/17/19 13:09 Freq: Status: Active Protocol: Activity Type Activity Date Activity User E-Sign Co-Sign Detail Recorded Client Recorded Date Recorded By Document 06/17/19 13:09 PL [id number] 06/17/19 13:21 PL 06/17/19 13:09 Wound Center Nurse 1 [Ulcer Assessment] #12 L Ischium -Current Size (cm) - Length 1.4 -Current Size (cm) - Width 1.0 -Current Size (cm) - Depth 0.1 -Total Square Cm 1.40 -Date of Last Picture (Recall this 06/17/19 field) -Photo Taken Yes -Epithelialization None Present -Tunneling No -Undermining/Tunneling No -Circular Undermining No -Exudate Amt Small -Exudate Type Sanguineous -Granulation Amt Large (67-100%) -Necrosis Amt Small (1-33%) -Necrotic Tissue Type Eschar -Texture (Nathalie-wound Skin Appearance) Excoriation -Temperature (Nathalie-wound Skin No Abnormality Appearance) (Pt Warm) #11 Right Buttock post op -Combined with other wound No -Current Size (cm) - Length 7.3 -Current Size (cm) - Width 3.0 -Current Size (cm) - Depth 3.5 -Total Square Cm 21.90 -Date of Last Picture (Recall this 06/17/19 field) -Photo Taken Yes -Epithelialization None Present -Tunneling No -Undermining/Tunneling Yes -Undermining/Tunneling Starts (O' 1 clock) -Undermining/Tunneling Ends (O'clock) 5 -Maximum Distance (cm) 3.6 -Circular Undermining No -Exudate Amt Large -Exudate Type Sanguineous -Granulation Amt Medium (34-66%) -Granulation Quality [place] -Necrosis Amt Medium (34-66%) -Necrotic Tissue Type Adherent Slough -Structure Exposed Bone -Texture (Nathalie-wound Skin Appearance) Excoriation WC - Nurse 2 - General Ulcer CM Notes Start: 06/17/19 13:09 Freq: Status: Active Protocol: Activity Type Activity Date Activity User E-Sign Co-Sign Detail Recorded Client Recorded Date Recorded By Document 06/17/19 13:44 ARNOLD [id number] 06/17/19 13:45 ARNOLD 06/17/19 13:44 Wound Center Nurse 2 [Procedure/Treatment] #12 L Ischium -Time 13:44 -Correct Patient Yes -Correct Side, Site, Position Yes -Correct Procedure Yes -Procedure Performed Yes -Type of Procedure Debridement -Clinical Debridement Subcutaneous -Post Debridement Size (cm) - Length 1.5 -Post Debridement Size (cm) - Width 1 -Post Debridement Size (cm) - Depth 0.2 -Total Square Cm 1.5 -Wound/Ulcer Outcome Not Healed -Ulcer Cleansing Rinsed/ Irrigated with Saline -Foul Odor after Cleansing No -Bioengineered Tissue No -Bleeding Controlled with Pressure -Offloading No -Treatment Response Procedure Tolerated Well #11 Right Buttock post op -Time 13:44 -Correct Patient Yes -Correct Side, Site, Position Yes -Correct Procedure Yes -Procedure Performed Yes -Type of Procedure Debridement -Clinical Debridement Muscle -Post Debridement Size (cm) - Length 7 -Post Debridement Size (cm) - Width 2.5 -Post Debridement Size (cm) - Depth 2.5 -Total Square Cm 17.5 -Wound/Ulcer Outcome Not Healed -Ulcer Cleansing Rinsed/ Irrigated with Saline -Foul Odor after Cleansing No -Bioengineered Tissue No -Bleeding Controlled with Pressure -Other tunnel 2-6:00 3.2cm -Offloading No -Treatment Response Procedure Tolerated Well [See Physician Procedure note for Specifics] Pain Scale: 0-10 Numeric [Pain] -Is Patient Pain Free? Yes Neurological: Neuro grossly intact Psych/Mental Status: Normal Affect, Appropriate Debridement Note Post-Debridement Measurements/Treatment WC - Nurse 2 - General Ulcer CM Notes Start: 06/17/19 13:09 Freq: Status: Active Protocol: Activity Type Activity Date Activity User E-Sign Co-Sign Detail Recorded Client Recorded Date Recorded By Document 06/17/19 13:44 ARNOLD [id number] 06/17/19 13:45 ARNOLD 06/17/19 13:44 Wound Center Nurse 2 #12 L Ischium -Time 13:44 -Correct Patient Yes -Correct Side, Site, Position Yes -Correct Procedure Yes -Procedure Performed Yes -Type of Procedure Debridement -Clinical Debridement Subcutaneous -Post Debridement Size (cm) - Length 1.5 -Post Debridement Size (cm) - Width 1 -Post Debridement Size (cm) - Depth 0.2 -Total Square Cm 1.5 -Wound/Ulcer Outcome Not Healed -Ulcer Cleansing Rinsed/ Irrigated with Saline -Foul Odor after Cleansing No -Bioengineered Tissue No -Bleeding Controlled with Pressure -Offloading No -Treatment Response Procedure Tolerated Well #11 Right Buttock post op -Time 13:44 -Correct Patient Yes -Correct Side, Site, Position Yes -Correct Procedure Yes -Procedure Performed Yes -Type of Procedure Debridement -Clinical Debridement Muscle -Post Debridement Size (cm) - Length 7 -Post Debridement Size (cm) - Width 2.5 -Post Debridement Size (cm) - Depth 2.5 -Total Square Cm 17.5 -Wound/Ulcer Outcome Not Healed -Ulcer Cleansing Rinsed/ Irrigated with Saline -Foul Odor after Cleansing No -Bioengineered Tissue No -Bleeding Controlled with Pressure -Other tunnel 2-6:00 3.2cm -Offloading No -Treatment Response Procedure Tolerated Well Pain Scale: 0-10 Numeric Is Patient Pain Free? Yes Wound debrided: Ischial ulcer Laterality: Right Type of Debridement: Excisional debridement Anesthesia Used: 4% Lidocaine Solution, 5% Lidocaine Gel Depth: Down to and including healthy tissue, in the subcutaneous layer, to muscle Percentage of wound debrided: 100 Instrument Used: 7mm curette Tissue Removed: Subcutaneous tisssue and slough into the muscle Severity: Fat Layer Exposed Amount of bleeding with debridement: Mild Bleeding Controlled with: Pressure Patient tolerated procedure well - Additional Wound Wound debrided: Left stage 3 buttock ucler Laterality: Left Type of Debridement: Excisional debridement Anesthesia Used: 4% Lidocaine Solution Depth: Down to and including healthy tissue, in the subcutaneous layer Percentage of wound debrided: 100 Instrument Used: 5mm curette Tissue Removed: Subcutaneous tissue and slough Severity: Limited To Skin Breakdown Amount of bleeding with debridement: Mild Bleeding Controlled with: Pressure Patient tolerated procedure: Patient tolerated procedure well Assessment/Plan Active Problems Candidal skin infection (Acute) Pressure sore of left ischium, stage 3 (Chronic) 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) Personal history of Methicillin resistant Staphylococcus aureus infection (Chronic) Right ischial pressure sore, stage 4 (Chronic) Assessment: 1. Recurrent right ischial pressure sore, Stage IV. 2. 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 3. Osteomyelitis. 4. History of MRSA. 5. Left ischial pressure sore, Stage III. 6. History of anal CA treated with chemotherapy and radiation therapy. Plan: Continue Dakin's dressing changes to the right ischial ulcer ideally daily but he may have to have it 3 times per week because he relies on home health to do the dressing changes and he is not able to do it himself. Periwound is excoriated and red, raised rash, most likely yeast. Will have him apply nystatin cream twice daily and start Diflucan daily x 10 days (he has tolerated this medication in the past). He is aware of the possibility that if the right ischial pressure sore worsens because of suboptimal wound care, then he would need to be admitted for further surgery and for evaluation for an ECF. He voiced understanding. Silver dressing was also applied to the left ischial pressure sore. He has been sitting more now that he is home. He is sitting in his recliner more. Instructed him to try to make sure not to sit for long periods of time and to try to off load. He has started using a cushion that he has to help with off loading. He is having difficulty with the recent passing of his mother. He is currently living alone and has to sell her house, so he needs to find a new place to live. Discussed with him about assisted living and he states he is thinking about it. Prealbumin from 02/12/19 was 25.8. Encourage nutritional supplementation with protein to help the healing process. Since the pathology is negative for osteomyelitis, after the IV antibiotics are completed, can schedule further debridement with wound closure with a myocutaneous flap. However the flap is elective and is on hold because of the Coronavirus pandemic. When the Coronavirus is contained, can then proceed with further debridement and partial ostectomy prior to wound closure with a myocutaneous flap. Depending on how much the left ischial pressure sore progresses down to the bone, additional surgery may be necessary there as well. Will need to obtain the old records from [facility] [place] before any myocutaneous flap surgery is performed. Followup 3 weeks due to COVID-19, I want to have him have as little exposure as posible. [id number]: [id number] Sue musc/fascia 20 sq cm/< - right ulcer Multi Select Codes - Addendum [id number] left ulcer
[2019-07-08 10:59] VITALS: BP 119/46; PULSE 74; RESP 18; TEMP 36.7; BMI 28.5
--- NOTE | 2019-07-08 11:43 | PN.PCM_ITS ---
(1) Pressure sore of left ischium, stage 3 Status: Chronic Code(s): L89.323 - Pressure ulcer of left buttock, stage 3 (2) Right ischial pressure sore, stage 4 Status: Chronic Code(s): L89.314 - Pressure ulcer of right buttock, stage 4 (3) Candidal skin infection Status: Acute Code(s): B37.2 - Candidiasis of skin and nail (4) Chronic osteomyelitis of right pelvic region Status: Chronic Code(s): M86.651 - Other chronic osteomyelitis, right thigh (5) Personal history of Methicillin resistant Staphylococcus aureus infection Status: Chronic Code(s): Z86.14 - Personal history of Methicillin resistant Staphylococcus aureus infection Type of Wound Date of Service: 07/08/19 Chief Complaint: Recurrent right ischial pressure sore, Stage IV, and recent left ischial pressure sore, Stage III. 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 Wound care - Dakin's dressing to the right ischial pressure sore. Ideally daily, but he now relies on home health to do his dressing changes since his mother is and he is living on his own. Dressings are every other day. Silver dressing to left ischial pressure sore Monday, Monday and Monday when home health changes it. Periwound is excoriated with what appears to be a yeast infection. He states he has nystatin cream at home that he will try to apply twice daily. He completed the Diflucan. Patient is living alone and sitting in his recliner all the time. Operative culture - Proteus mirabilis. He was discharged on Cefepime IV which he has completed. Pathology - negative for osteomyelitis. Prealbumin from 02/12/19 was 25.8. Encourage nutritional supplementation with protein to help the healing process. CT Pelvis from 02/13/19 showed continued air-filled deep decubitus ulcer extending down to the surface of the right ischial tuberosity with chronic sclerosis and erosive changes of the right ischial tuberosity that are not substantially changed from the prior exam of September 18, 2018. No further bone erosion or extension. No additional acute pelvic findings or changes.. Today he denies fever. His appetite is good. Progress of Wound: Right ischial pressure sore stable and left ischial pressure sore stable. Periwound continues to be excoriated. He is only able to have his dressing changed 3 times a week from home health which most likely is leading to the issues with the periwound. - Physical Exam Vital Signs Temp Pulse Resp BP 98.0 F 74 18 119/46 L 07/08/19 10:59 07/08/19 10:59 07/08/19 10:59 07/08/19 10:59 General: Alert, Oriented x3, Cooperative HEENT: Atraumatic Oral: Moist Mucosa Lungs: Normal air movement Cardiovascular: Regular rate Extremities: Capillary Refill Less than 3 Seconds Skin: Ulcer/ Wound - Right ischial ulcer, Stage IV and left ischial ulcer Stage III. Both ulcers are stable. Periwound is red and excoriated. Wound Measurements and Assessment WC - Nurse 1 - General Ulcer Measurement Start: 06/17/19 13:09 Freq: Status: Active Protocol: Activity Type Activity Date Activity User E-Sign Co-Sign Detail Recorded Client Recorded Date Recorded By Document 07/08/19 10:59 FL [id number] 07/08/19 11:12 FL 07/08/19 10:59 Wound Center Nurse 1 [Ulcer Assessment] #12 L Ischium -Combined with other wound No -Current Size (cm) - Length 1.2 -Current Size (cm) - Width 1.5 -Current Size (cm) - Depth 0.1 -Total Square Cm 1.80 -Tunneling No -Undermining/Tunneling No -Circular Undermining No -Exudate Amt Small -Exudate Type Serosanguineous -Wound Margin Flat & Intact -Granulation Amt Large (67-100%) -Granulation Quality [place] -Slough/Fibrin Yes -Necrosis Amt Small (1-33%) -Necrotic Tissue Type Adherent Slough -Structure Exposed N/A -Texture (Nathalie-wound Skin Appearance) Assessed, Excoriation -Moisture (Nathalie-wound Skin Appearance Assessed ) -Color (Nathalie-wound Skin Appearance) Assessed -Temperature (Nathalie-wound Skin No Abnormality Appearance) (Pt Warm) -Tenderness on Palpation (Nathalie-wound No Skin Appearance) -Ulcer Cleansing Wound Cleanser -Foul Odor after Cleansing No -Anesthetic Used 4% Lidocaine Solution #11 Right Buttock post op -Combined with other wound No -Current Size (cm) - Length 6 -Current Size (cm) - Width 3.5 -Current Size (cm) - Depth 1.5 -Total Square Cm 21.0 -Photo Taken No -Tunneling Yes -Tunneling Position (O'clock) 5 -Tunneling Distance (cm) 4 -Undermining/Tunneling Yes -Undermining/Tunneling Starts (O' 10 clock) -Undermining/Tunneling Ends (O'clock) 5 -Maximum Distance (cm) 3.5 -Circular Undermining No -Exudate Amt Medium -Exudate Type Serosanguineous -Wound Margin Thickened & Rolled Under -Granulation Amt Medium (34-66%) -Granulation Quality [place] -Slough/Fibrin Yes -Necrosis Amt Medium (34-66%) -Necrotic Tissue Type Adherent Slough -Structure Exposed Bone -Texture (Nathalie-wound Skin Appearance) Assessed, Excoriation, Scarring -Moisture (Nathalie-wound Skin Appearance Assessed ) -Color (Nathalie-wound Skin Appearance) Assessed -Temperature (Nathalie-wound Skin No Abnormality Appearance) (Pt Warm) -Tenderness on Palpation (Nathalie-wound No Skin Appearance) -Ulcer Cleansing Wound Cleanser -Foul Odor after Cleansing No -Anesthetic Used 4% Lidocaine Solution,5% Lidocaine Gel [Edema Assessment] -Lower Limb Edema Present NA WC - Nurse 2 - General Ulcer CM Notes Start: 06/17/19 13:09 Freq: Status: Active Protocol: Activity Type Activity Date Activity User E-Sign Co-Sign Detail Recorded Client Recorded Date Recorded By Document 07/08/19 11:29 ARNOLD [id number] 07/08/19 11:32 ARNOLD 07/08/19 11:29 Wound Center Nurse 2 [Procedure/Treatment] #12 L Ischium -Time 11:31 -Correct Patient Yes -Correct Side, Site, Position Yes -Correct Procedure Yes -Procedure Performed Yes -Type of Procedure Debridement -Clinical Debridement Subcutaneous -Post Debridement Size (cm) - Length 2.0 -Post Debridement Size (cm) - Width 1.5 -Post Debridement Size (cm) - Depth 0.2 -Total Square Cm 3.00 -Wound/Ulcer Outcome Not Healed -Ulcer Cleansing Rinsed/ Irrigated with Saline -Foul Odor after Cleansing No -Bioengineered Tissue No -Bleeding Controlled with Pressure -Offloading No -Treatment Response Procedure Tolerated Well #11 Right Buttock post op -Time 11:31 -Correct Patient Yes -Correct Side, Site, Position Yes -Correct Procedure Yes -Procedure Performed Yes -Type of Procedure Debridement -Clinical Debridement Muscle -Post Debridement Size (cm) - Length 7.0 -Post Debridement Size (cm) - Width 3.5 -Post Debridement Size (cm) - Depth 2.5 -Total Square Cm 24.50 -Wound/Ulcer Outcome Not Healed -Ulcer Cleansing Rinsed/ Irrigated with Saline -Foul Odor after Cleansing No -Bioengineered Tissue No -Bleeding Controlled with Pressure -Offloading No -Treatment Response Procedure Tolerated Well [See Physician Procedure note for Specifics] Pain Scale: 0-10 Numeric [Pain] -Is Patient Pain Free? Yes Musculoskeletal: No Tenderness to Palpation of Joints or Extremities Neurological: Neuro grossly intact Psych/Mental Status: Normal Affect, Appropriate Debridement Note Post-Debridement Measurements/Treatment WC - Nurse 2 - General Ulcer CM Notes Start: 06/17/19 13:09 Freq: Status: Active Protocol: Activity Type Activity Date Activity User E-Sign Co-Sign Detail Recorded Client Recorded Date Recorded By Document 06/17/19 13:44 [id number] 06/17/19 13:45 Document 07/08/19 11:29 [id number] 07/08/19 11:32 06/17/19 07/08/19 13:44 11:29 Wound Center Nurse 2 #12 L Ischium -Time 13:44 11:31 -Correct Patient Yes Yes -Correct Side, Site, Position Yes Yes -Correct Procedure Yes Yes -Procedure Performed Yes Yes -Type of Procedure Debridement Debridement -Clinical Debridement Subcutaneous Subcutaneous -Post Debridement Size (cm) - Length 1.5 2.0 -Post Debridement Size (cm) - Width 1 1.5 -Post Debridement Size (cm) - Depth 0.2 0.2 -Total Square Cm 1.5 3.00 -Wound/Ulcer Outcome Not Healed Not Healed -Ulcer Cleansing Rinsed/ Rinsed/ Irrigated with Irrigated with Saline Saline -Foul Odor after Cleansing No No -Bioengineered Tissue No No -Bleeding Controlled with Pressure Pressure -Offloading No No -Treatment Response Procedure Procedure Tolerated Well Tolerated Well #11 Right Buttock post op -Time 13:44 11:31 -Correct Patient Yes Yes -Correct Side, Site, Position Yes Yes -Correct Procedure Yes Yes -Procedure Performed Yes Yes -Type of Procedure Debridement Debridement -Clinical Debridement Muscle Muscle -Post Debridement Size (cm) - Length 7 7.0 -Post Debridement Size (cm) - Width 2.5 3.5 -Post Debridement Size (cm) - Depth 2.5 2.5 -Total Square Cm 17.5 24.50 -Wound/Ulcer Outcome Not Healed Not Healed -Ulcer Cleansing Rinsed/ Rinsed/ Irrigated with Irrigated with Saline Saline -Foul Odor after Cleansing No No -Bioengineered Tissue No No -Bleeding Controlled with Pressure Pressure -Other tunnel 2-6:00 3.2cm -Offloading No No -Treatment Response Procedure Procedure Tolerated Well Tolerated Well Pain Scale: 0-10 Numeric Is Patient Pain Free? Yes Yes Wound debrided: Sacral ulcer Laterality: Right Wound Grade/Stage: Stage IV Type of Debridement: Excisional debridement Anesthesia Used: 4% Lidocaine Solution, 5% Lidocaine Gel Depth: Down to and including healthy tissue, in the subcutaneous layer, to muscle Percentage of wound debrided: 100 Instrument Used: 7mm curette Tissue Removed: Subcutaneous tissue and sloug into the muscle Severity: Fat Layer Exposed Amount of bleeding with debridement: Mild Bleeding Controlled with: Pressure Patient tolerated procedure well - Additional Wound Wound debrided: Sacral ulcer Laterality: Left Wound Grade/Stage: Stage III Type of Debridement: Excisional debridement Anesthesia Used: 5% Lidocaine Gel Depth: Down to and including healthy tissue, in the subcutaneous layer Percentage of wound debrided: 100 Instrument Used: 3mm curette Tissue Removed: Subcutanous tissue and slough Severity: Limited To Skin Breakdown Amount of bleeding with debridement: Mild Bleeding Controlled with: Pressure Patient tolerated procedure: Patient tolerated procedure well Assessment/Plan Assessment: 1. Recurrent right ischial pressure sore, Stage IV. 2. 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 3. Osteomyelitis. 4. History of MRSA. 5. Left ischial pressure sore, Stage III. 6. History of anal CA treated with chemotherapy and radiation therapy. Plan: Continue Tonigabbie's dressing changes to the right ischial ulcer ideally daily but he may have to have it 3 times per week because he relies on home health to do the dressing changes and he is not able to do it himself. Left sacral ulcer daily silver alginate dressing changes. Periwound is excoriated and red, raised rash, most likely yeast. Will have him continue to apply nystatin cream twice daily. He completed the Diflucan. He is aware of the possibility that if the right ischial pressure sore worsens because of suboptimal wound care, then he would need to be admitted for further surgery and for evaluation for an ECF. He voiced understanding. Silver dressing was also applied to the left ischial pressure sore. He has been sitting more now that he is home. He is sitting in his recliner more. Instructed him to try to make sure not to sit for long periods of time and to try to off load. He has started using a cushion that he has to help with off loading. He is having difficulty with the recent passing of his mother. He is currently living alone and has to sell her house, so he needs to find a new place to live. Discussed with him about assisted living and he states he is thinking about it. Prealbumin from 02/12/19 was 25.8. Encourage nutritional supplementation with protein to help the healing process. Since the pathology is negative for osteomyelitis, after the IV antibiotics are completed, can schedule further debridement with wound closure with a myocutaneous flap. However the flap is elective and is on hold because of the Coronavirus pandemic. When the Coronavirus is contained, can then proceed with further debridement and partial ostectomy prior to wound closure with a myocutaneous flap. Depending on how much the left ischial pressure sore progresses down to the bone, additional surgery may be necessary there as well. Will need to obtain the old records from [facility] before any myocutaneous flap surgery is performed. Followup 3 weeks due to COVID-19, I want to have him have as little exposure as posible. [id number]: [id number] Sue musc/fascia 20 sq cm/< - right sacral ulcer Add On Codes: 01588 Sue musc/fascia add-on Multi Select Codes - Integumentary Integumentary CPT Codes: 01414 Sue subq tissue 20 sq cm/< - left sacral ulcer
== END 2019-07-11 23:59 ==
LOC: WC 11:00
PROVIDERS: Family Provider Internal Medicine; PCP Internal Medicine; Visit Provider Nurse Practitioner Family
DX: L89.314 Pressure ulcer of right buttock, stage 4 (principal); L89.323 Pressure ulcer of left buttock, stage 3; L59.8 Other specified disorders of the skin and subcutaneous tissue related to radiation; Y84.2 Radiological procedure and radiotherapy as the cause of abnormal reaction of the patient, or of later complication, without mention of misadventure at the time of the procedure; B37.2 Candidiasis of skin and nail; Z86.14 Personal history of Methicillin resistant Staphylococcus aureus infection; Z85.048 Personal history of other malignant neoplasm of rectum, rectosigmoid junction, and anus; Z92.21 Personal history of antineoplastic chemotherapy; Z92.3 Personal history of irradiation
CPT/HCPCS: 11042; 11043; 11046; 97597

== ENCOUNTER 2019-08-12 16:15 | Inpatient (IN) | payer MEDICARE, MEDICAID, SELFPAY ==
[2019-08-12 14:53] VITALS: BMI 28.5
[2019-08-12 16:17] VITALS: BP 150/56; PULSE 61; RESP 18; TEMP 36.3; O2SAT 96; BMI 29.0
--- NOTE | 2019-08-12 16:46 | CT_ITS ---
STUDY: CT PELVIS WITH CONTRAST REASON FOR EXAM: Male, 64 years old. DECUB ULCER, RT HIP PAIN RADIATION DOSAGE (If Supplied By Facility): CTDIvol = ( 18.97 ) mGy, DLP = ( 1563.87 ) mGycm TECHNIQUE: Transaxial imaging of the pelvis was performed without oral contrast. IV 100mL Isovue-300 was administered intravenously. Individualized dose optimization techniques were used for this CT. COMPARISON: Previous study of 02/13/2019 FINDINGS: Normal urinary bladder. Normal visualized small intestine. There is a left pelvic ostomy. There is a large colonic stool burden. There is no pelvic fluid. There is a deep soft tissue low-attenuation region with air densities anterior to the right hip measuring 5.6 x 4.0 x 6.4 cm suggestive of phlegmon. This is in a region of previous surgery. There is edema of soft tissue fat posterior to this region. There is a large deep decubitus ulcer posterior to the right ischial tuberosity with associated sclerosis and osseous fragmentation and erosion, increased in severity in the interval. There is also demonstrated at this time fragmentation of the superolateral right acetabular rim raising the suspicion of osteomyelitis. Status post total left hip replacement changes are noted. Normal visualized pelvic arteries. There is a small fat-containing umbilical hernia. CT/Pelvis WITH IV Contrast IMPRESSION: 1. Large deep decubitus ulcer posterior to the right ischial tuberosity with associated sclerosis and osseous fragmentation and erosion, increased in extent and severity in the interval. 2. There is demonstrated at this time fragmentation of the superolateral right acetabular rim raising the suspicion of osteomyelitis. 3. There is a deep soft tissue low attenuation region with several punctate air densities anterior to the right hip measuring 5.6 x 4.0 x 6.4 cm suggestive of phlegmon. This is in a region of previous surgery. There is edema of soft tissue fat posterior to this area. Electronically Signed: Anmol Simpson MD at 18:32 EDT , Service support ,
[2019-08-12 17:05] VITALS: BP 150/56; PULSE 61; RESP 18; TEMP 36.3; O2SAT 96
[2019-08-12] MEDS: Ondansetron 4 MG/2 ML Vial IV (17:11)
[2019-08-12] MEDS: Morphine 4 MG/ML Syringe IV (17:12)
--- NOTE | 2019-08-12 17:16 | ED.DCSUM_ITS ---
History of Present Illness Chief Complaint: Wound Informant: Patient Narrative: Patient states that he was at the wound center today and was told to come to the emergency room for pain control of his chronic wounds of his buttocks. He has a history of MRSA and states he is on doxycycline. Patient has a history of rectal cancer and has soft tissue radionecrosis. There is a history of osteomyelitis. Patient lives alone and his living situation is not very optimal as he spent most of his time in a chair on his buttocks. He is considering assisted living. I spoke with Dr. Mesa who is familiar with the case. Plan is to admit the patient into the hospital get social work involved and most likely surgical debridement. Past Medical History - Allergies and Home Meds Allergies/Adverse Reactions: Allergies chlorthalidone Allergy (Verified 08/12/19 16:20) Other famotidine Allergy (Verified 08/12/19 16:20) Unknown povidone-iodine [From Betadine] Allergy (Verified 08/12/19 16:20) Hives soap Adverse Reaction (Verified 08/12/19 16:20) Hives Vcbihaf-Sen-Cgx Reductase Inhibitor Adverse Reaction (Verified 08/12/19 16:20) MESSED MY LIVER UP adhesive tape Allergy (Uncoded 08/12/19 16:20) Itching/rash Primary Care Physician: Winnie Gonzales MD [Primary Care Provider] - Surgical History: total hip arthroplasty - left, total knee arthroplasty, - - 12/30/16 Surgical preparation right gluteal/ischial area with excision radiation pressure sore abscess wound and partial ostectomy for osteomyelitis (52.5 cm2), 06/08/17 Excision radiation pressure sore abscess ulcer right ischial area, Stage IV, with partial ostectomy for osteomyelitis, 10/17/17 Excision radiation pressure sore abscess ulcer right ischial area, Stage IV, with partial ostectomy for osteomyelitis. Smoking Status: Former smoker - Family History Maternal Family History: Reports: - Paternal Family History: Reports: - Review of Systems General: Denies: Chills, Fever, Sweats Eyes: Denies: Visual changes - bilaterally, Diplopia ENT: Denies: Rhinorrhea, Sore throat Cardiovascular: Denies: Chest pain, Palpitations Respiratory: Denies: Dyspnea, Cough, Dyspnea on exertion Gastrointestinal: Denies: Abdominal pain, Nausea, Vomiting, Diarrhea, Melena, Hematochezia Genitourinary: Denies: Dysuria, Hematuria, Frequency Musculoskeletal: Reports: Extremity Pain Skin: Reports: Wounds Neurological: Denies: Headache, Weakness, Numbness Physical Exam Vital Signs/Narrative: Vital Signs Temp Pulse Resp BP Pulse Ox 08/12/19 17:05 97.4 F L 61 18 150/56 H 96 08/12/19 16:17 97.4 F L 61 18 150/56 H 96 Inital Vital Signs reviewed: Yes General: Well nourished, Well developed, No Acute Distress Head: Normocephalic, Atraumatic Eyes: Perrl, EOMI ENT: Moist mucous membranes, No rhinorrhea Neck: Supple, Nontender Cardiovascular: Regular rate, Regular rhythm, No murmurs Respiratory: No distress, CTA bilaterally, Chest nontender Abdomen: Soft, Nontender, Nondistended, Normal bowel sounds Back: Nontender, Normal Inspection Extremities: - - Patient has left and right decubital ulcers. There is some erythema. Skin: Normal color, No rash Neurological: Alert, Oriented x3, Cranial nerves II-XII grossly intact, Normal Strength, Normal Sensation Psychological: Normal affect, Normal Mood Diagnostic/Tx/Re-eval Clinical Impression(s) from Imaging Studies Pelvis CT 08/12/19 16:46 IMPRESSION: 1. Large deep decubitus ulcer posterior to the right ischial tuberosity with associated sclerosis and osseous fragmentation and erosion, increased in extent and severity in the interval. 2. There is demonstrated at this time fragmentation of the superolateral right acetabular rim raising the suspicion of osteomyelitis. 3. There is a deep soft tissue low attenuation region with several punctate air densities anterior to the right hip measuring 5.6 x 4.0 x 6.4 cm suggestive of phlegmon. This is in a region of previous surgery. There is edema of soft tissue fat posterior to this area. Electronically Signed: Anmol Simpson MD at 18:32 EDT , Service support , Laboratory Last Values WBC 11.1 K/mm3 (4.4-11.0) H 08/12/19 17:00 RBC 3.91 M/mm3 (4.6-6.2) L 08/12/19 17:00 Hgb 8.6 g/dL (13.0-16.5) L 08/12/19 17:00 Hct 29.7 % (40-54) L 08/12/19 17:00 MCV 76.0 fL (80-94) L 08/12/19 17:00 MCH 22.0 pg (27.0-32.0) L 08/12/19 17:00 MCHC 29.0 g/dL (32-36) L 08/12/19 17:00 RDW Std Deviation 50.0 fl (35.1-43.9) H 08/12/19 17:00 RDW Coeff of Rosendo 18.3 % (11.6-14.6) H 08/12/19 17:00 Plt Count 728 K/mm3 (150-450) H 08/12/19 17:00 MPV 7.7 fl (6.2-12.0) 08/12/19 17:00 Immature Gran % (Auto) 0.500 % (0.0-0.9) 08/12/19 17:00 Neut % (Auto) 81.4 % (47-70) H 08/12/19 17:00 Lymph % (Auto) 8.7 % (19-41) L 08/12/19 17:00 [place] % (Auto) 8.5 % (0-10) 08/12/19 17:00 Eos % (Auto) 0.8 % (0-5) 08/12/19 17:00 Baso % (Auto) 0.1 % (0-1) 08/12/19 17:00 Absolute Neuts (auto) 9.1 X10^3/uL (2.0-7.7) H 08/12/19 17:00 Absolute Lymphs (auto) 0.97 X10^3/uL (0.83-4.51) 08/12/19 17:00 Nucleated RBC % 0 % (0-5) 08/12/19 17:00 Sodium 131 mmol/L (136-145) L 08/12/19 17:00 Potassium 3.9 mmol/L (3.5-5.1) 08/12/19 17:00 Chloride 95 mmol/L (98-107) L 08/12/19 17:00 Carbon Dioxide 27.0 mmol/L (21.0-32.0) 08/12/19 17:00 Anion Gap 9 (5-15) 08/12/19 17:00 BUN 18 mg/dL (7-18) 08/12/19 17:00 Creatinine 0.76 mg/dL (0.70-1.30) 08/12/19 17:00 Estim Creat Clear Calc 87.45 ml/min 08/12/19 17:00 Est GFR (MDRD) Af Amer 132 mL/min (>60) 08/12/19 17:00 Est GFR (MDRD) Non-Af 109 mL/min (>60) 08/12/19 17:00 BUN/Creatinine Ratio 23.6 RATIO (10-20) H 08/12/19 17:00 Glucose 87 mg/dL (74-106) 08/12/19 17:00 Calcium 9.3 mg/dL (8.5-10.1) 08/12/19 17:00 Total Bilirubin 0.50 mg/dL (0.20-1.00) 08/12/19 17:00 AST 48 U/L (15-37) H 08/12/19 17:00 ALT 67 U/L (16-61) H 08/12/19 17:00 Alkaline Phosphatase 138 U/L (45-117) H 08/12/19 17:00 Total Protein 9.2 g/dL (6.4-8.2) H 08/12/19 17:00 Albumin 2.6 g/dL (3.2-5.0) L 08/12/19 17:00 Globulin 6.6 g/dL (2.2-4.2) H 08/12/19 17:00 Albumin/Globulin Ratio 0.4 RATIO (0.9-2.4) L 08/12/19 17:00 - Medical Decision Making She received antibiotics after blood cultures. The CT was discussed with Dr. Mesa. Plan is admission for surgical debridement and would most likely require residential placement. ED Disposition - Plan for ED Patient: Disposition: Acute Care Hospital [facility] Diagnosis: Right ischial pressure sore, stage 4, Pressure sore of left ischium, stage 3, Acute osteomyelitis of right pelvic region, Late effect of radiation Referrals: Winnie Gonzales MD [Primary Care Provider] -
[2019-08-12 17:21] LABS: Absolute Lymphocyte Count 0.97 X10^3/uL (0.83-4.51); Absolute Neutrophil Count 9.1 X10^3/uL (2.0-7.7); Basophil# 0.01 X10^3/uL; Basophil% 0.1 % (0-1); Eosinophil# 0.09 X10^3/uL; Eosinophils% 0.8 % (0-5); Hematocrit 29.7 % (40-54); Hemoglobin 8.6 g/dL (13.0-16.5); Lymphocyte # 0.97 X10^3/ul (4.0); Lymphocyte % 8.7 % (19-41); Mean Platelet Vol. 7.7 fl (6.2-12.0); Monocyte# 0.94 X10^3/uL; Monocyte% 8.5 % (0-10); NRBC Flagged by Analyzer 0 % (0-5); Neutrophil # 9.05 X10^3/uL (2.7-7.7); Neutrophil % 81.4 % (47-70); Platelet Count 728 K/mm3 (150-450); RBC Distribution Width CV 18.3 % (11.6-14.6); Red Blood Count 3.91 M/mm3 (4.6-6.2); White Blood Count 11.1 K/mm3 (4.4-11.0)
[2019-08-12 17:35] LABS: ALB/GLOB Ratio 0.4 RATIO (0.9-2.4); AST(SGOT) 48 U/L (15-37); Alanine Aminotransfer ALT/SGPT 67 U/L (16-61); Albumin, Serum 2.6 g/dL (3.2-5.0); Alkaline Phosphatase 138 U/L (45-117); Anion Gap 9 (5-15); BUN 18 mg/dL (7-18); BUN/Creat Ratio 23.6 RATIO (10-20); Calcium,Total 9.3 mg/dL (8.5-10.1); Chloride 95 mmol/L (98-107); Creatinine, Serum 0.76 mg/dL (0.70-1.30); EST Glomerular Filtration Rate 109 mL/min (>60); Est Glom Filt Rate - Afr Amer 132 mL/min (>60); Estimated Creatinine Clearance 87.45 ml/min; Globulin 6.6 g/dL (2.2-4.2); Glucose 87 mg/dL (74-106); Potassium 3.9 mmol/L (3.5-5.1); Protein, Total 9.2 g/dL (6.4-8.2); Sodium Level 131 mmol/L (136-145)
[2019-08-12 19:22] LABS: Lactic Acid 0.9 mmol/L (0.4-1.9)
--- NOTE | 2019-08-12 19:36 | PCM.HP.STD ---
Problem List (1) Chronic osteomyelitis of right pelvic region Status: Acute (2) History of total left knee replacement Status: Chronic (3) Debility Status: Chronic (4) History of anal cancer Status: Chronic (5) Late effect of radiation Status: Chronic Comment: right ischial area (6) Hepatitis C carrier Status: Chronic (7) COPD (chronic obstructive pulmonary disease) Status: Chronic Qualifiers: (8) HTN (hypertension) Status: Chronic Qualifiers: (9) HLD (hyperlipidemia) Status: Chronic Qualifiers: (10) GERD (gastroesophageal reflux disease) Status: Chronic Qualifiers: (11) PAD (peripheral artery disease) Status: Chronic (12) Hyponatremia Status: Acute Comment: secondary to dehydration due to diuretics. (13) Right ischial pressure sore, stage 4 Status: Acute History of Present Illness Date of Admission: 08/12/19 Chief Complaint: right hip pain The patient is a 64 year old male patient with a significant past medical history of chronic osteomyelitis and decubitus ulcer of the right buttocks who presents the emergency room with 3 days of worsening right hip pain. Currently the patient denies chest pain shortness of breath fevers or chills. Due to the significant increase in pain the patient is unable to ambulate with a walker as per normal routine at his home. CBC shows an elevated white count of 11,000 with a hemoglobin of 8, CT scan shows large deep decubitus ulcer posterior to the right ischial tuberosity with associated sclerosis and osseous fragmentation and erosion, increased in extent and severity in the interval. There is demonstrated at this time fragmentation of the superolateral right acetabular rim raising the suspicion of osteomyelitis.There is a deep soft tissue low attenuation region with several punctate air densities anterior to the right hip measuring 5.6 x 4.0 x 6.4 cm suggestive of phlegmon. This is in a region of previous surgery. There is edema of soft tissue fat posterior to this area. The patient is known to Dr. Mesa and will be admitted for general medical care and consult for plastic surgery obtained. Past Medical History Past Medical History (Chronic Problems): Chronic Problems Pressure sore of left ischium, stage 3 (Chronic) History of total left knee replacement (Chronic) Pressure ulcer of right buttock, stage 3 (Chronic) Skin ulcer of elbow with fat layer exposed (Chronic) Decubitus ulcer of left heel, stage 2 (Chronic) Debility (Chronic) Personal history of Methicillin resistant Staphylococcus aureus infection (Chronic) Acute osteomyelitis of right pelvic region (Chronic) History of anal cancer (Chronic) Late effect of radiation (Chronic) right ischial area Soft tissue radionecrosis (Chronic) Anal cancer (Chronic) Hepatitis C carrier (Chronic) COPD (chronic obstructive pulmonary disease) (Chronic) Anxiety and depression (Chronic) HTN (hypertension) (Chronic) HLD (hyperlipidemia) (Chronic) GERD (gastroesophageal reflux disease) (Chronic) PAD (peripheral artery disease) (Chronic) Allergies chlorthalidone Allergy (Verified 08/12/19 16:20) Other famotidine Allergy (Verified 08/12/19 16:20) Unknown povidone-iodine [From Betadine] Allergy (Verified 08/12/19 16:20) Hives soap Adverse Reaction (Verified 08/12/19 16:20) Hives Xgyfqxp-Vlx-Ain Reductase Inhibitor Adverse Reaction (Verified 08/12/19 16:20) MESSED MY LIVER UP adhesive tape Allergy (Uncoded 08/12/19 16:20) Itching/rash Home Medications: Ambulatory Orders Medication Instructions Recorded Escitalopram Oxalate [Lexapro] 10 mg PO DAILY 03/22/16 Fluticasone 0.05% [Flonase Nasal 2 spray NASAL DAILY 03/22/16 [place]] Multivitamin [Multiple Vitamins] 1 each PO DAILY 03/22/16 buPROPion XL [Wellbutrin Xl] 300 mg PO DAILY 03/22/16 busPIRone [Buspar] 5 mg PO TID 03/22/16 Tiotropium [place] [Spiriva 2 puff INHALATION DAILY 10/20/16 Respimat] Tizanidine HCl [Zanaflex] 4 mg PO Q8H PRN PRN 12/27/16 Metoprolol Tartrate [Lopressor 50 mg PO BID 01/19/18 (beta curt)] Pantoprazole Sodium [Protonix] 40 mg PO DAILY 03/19/18 Amlodipine [Norvasc] 5 mg PO DAILY 08/22/18 Ascorbic Acid [Vitamin C] 500 mg PO DAILY@0800 08/22/18 Ferrous Gluconate 324 mg PO BID 08/22/18 Argin/Glut/Cahmb/Collag/Mv-Min 1 pack BC TID 10/18/18 [Chuy Packet] Cholecalciferol (VIT D3) [Vitamin 1,000 unit PO DAILY 10/18/18 D3] Ezetimibe [Zetia] 10 mg PO DAILY 10/18/18 Nystatin [Mycostatin] 1 applic TOPICAL BID 02/08/19 Diazepam [Valium] 5 mg PO 4X/DAY PRN PRN #30 tab 02/14/19 Oxycodone [Oxyir] 5 mg PO Q4H PRN PRN 7 Days #40 tab 02/14/19 Doxazosin Mesylate [Cardura] 2 mg PO QHS 08/12/19 Gabapentin [Neurontin] 600 mg PO TIDCM 08/12/19 Ibuprofen 800 mg PO TID 08/12/19 Surgical History: total hip arthroplasty - left, total knee arthroplasty, - - 12/30/16 Surgical preparation right gluteal/ischial area with excision radiation pressure sore abscess wound and partial ostectomy for osteomyelitis (52.5 cm2), 06/08/17 Excision radiation pressure sore abscess ulcer right ischial area, Stage IV, with partial ostectomy for osteomyelitis, 10/17/17 Excision radiation pressure sore abscess ulcer right ischial area, Stage IV, with partial ostectomy for osteomyelitis. Psychiatric History: No pertinent psych hx Smoking Status: Former smoker - *Family History Maternal History Items: - Paternal History Items: - Review of Systems Constitutional: Reports: Weakness, Fatigue. Denies: Chills, Fever, Weight Change HEENT: Denies: Head Aches, Sinus Congestion, Sinus Drainage Cardiovascular: Denies: Chest Pain, Palpitations Respiratory: Denies: Cough, Shortness of breath at rest, Sputum production Gastrointestinal: Denies: Abdominal Pain, Nausea, Vomiting Genitourinary: Denies: Dysuria Musculoskeletal: Reports: Joint Tenderness, Leg Pain. Denies: Joint Pain Skin: Denies: Rash, Wounds Neurological: Denies: Numbness, Tingling, Focal weakness Psychiatric: Denies: Anxiety, Depression, Homicidal Ideations, Suicidal Ideations Hematologic/ Lymphatic: Denies: Easy Bruising, Easy Bleeding VTE Information - Inpt Only VTE Present on Admission: No VTE Mechan Device Prophylaxis: None VTE Pharm Prophylaxis ordered?: Yes Patient Problems: Active and Suspected Problems Chronic osteomyelitis of right pelvic region (Acute) Pressure injury of right buttock, stage 2 (Acute) Right ischial pressure sore, stage 4 (Acute) - Physical Exam Vitals/I&O's: Vital Signs Temp Pulse Resp BP Pulse Ox 97.4 F L 61 18 150/56 H 96 08/12/19 17:05 08/12/19 17:05 08/12/19 17:05 08/12/19 17:05 08/12/19 17:05 Oxygen Delivery Method Room Air Weight: 180 lb Body Mass Index (BMI) 29.0 General: Alert, Oriented x3, Cooperative HEENT: Atraumatic, Normocephalic Neck: Supple, No JVD Lungs: Clear to auscultation, Normal air movement Cardiovascular: Regular rate, Normal S1, Normal S2, No murmurs Abdomen: Bowel Sounds Present, Soft, Non Tender Extremities: No edema Skin: Ulcer/ Wound Musculoskeletal: Tenderness, - - right hip Neurological: Neuro grossly intact Psych/Mental Status: Normal Affect, Appropriate Laboratory Results 08/12/19 17:00: WBC 11.1 H, RBC 3.91 L, Hgb 8.6 L, Hct 29.7 L, MCV 76.0 L, MCH 22.0 L, MCHC 29.0 L, RDW Std Deviation 50.0 H, RDW Coeff of Rosendo 18.3 H, Plt Count 728 H, MPV 7.7, Immature Gran % (Auto) 0.500, Neut % (Auto) 81.4 H, Lymph % (Auto) 8.7 L, [place] % (Auto) 8.5, Eos % (Auto) 0.8, Baso % (Auto) 0.1, Absolute Neuts (auto) 9.1 H, Absolute Lymphs (auto) 0.97, Nucleated RBC % 0 08/12/19 17:00: Sodium 131 L, Potassium 3.9, Chloride 95 L, Carbon Dioxide 27.0, Anion Gap 9, BUN 18, Creatinine 0.76, Estim Creat Clear Calc 87.45, Est GFR (MDRD) Af Amer 132, Est GFR (MDRD) Non-Af 109, BUN/Creatinine Ratio 23.6 H, Glucose 87, Calcium 9.3, Total Bilirubin 0.50, AST 48 H, ALT 67 H, Alkaline Phosphatase 138 H, Total Protein 9.2 H, Albumin 2.6 L, Globulin 6.6 H, Albumin/Globulin Ratio 0.4 L 08/12/19 17:00: PT Pending, INR Pending, APTT Pending 08/12/19 18:45: Lactic Acid 0.9 Current Medications Vancomycin HCl 2,000 mg/ (Sodium Chloride) 540 mls @ 250 mls/hr IV X1 ONE Stop: 08/12/19 20:44 Ceftriaxone Sodium 2 gm/ (Sodium Chloride) 50 mls @ 100 mls/hr IV X1 ONE Stop: 08/12/19 19:44 Assessment/Plan All Active Problems Candidal skin infection (Acute) Pressure sore of left ischium, stage 2 (Acute) Chronic osteomyelitis of right pelvic region (Acute) Infection and inflammatory reaction due to internal left knee prosthesis, initial encounter (Acute) Pressure injury of right buttock, stage 2 (Acute) Skin ulcer of left thigh with fat layer exposed (Acute) MRSA bacteremia (Acute) Pneumonia (Acute) SBO (small bowel obstruction) (Acute) Hypotension (Acute) Right ischial pressure sore, stage 4 (Acute) Hyponatremia (Acute) Chronic Problems Pressure sore of left ischium, stage 3 (Chronic) History of total left knee replacement (Chronic) Pressure ulcer of right buttock, stage 3 (Chronic) Skin ulcer of elbow with fat layer exposed (Chronic) Decubitus ulcer of left heel, stage 2 (Chronic) Debility (Chronic) Personal history of Methicillin resistant Staphylococcus aureus infection (Chronic) Acute osteomyelitis of right pelvic region (Chronic) History of anal cancer (Chronic) 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 Chronic osteomyelitis and pressure ulcer right buttock, admit to general medical floor, consult Dr. Mesa, continue IV antibiotics started in the emergency room. Add Dilaudid 1 mg IV every 3 hours as needed pain. Make patient n.p.o. at midnight, order CBC BMP in the morning and start IV fluids normal saline at 100 cc/h. 2. Hypertension?continue home medications 3.?Hyperlipidemia?continue statin 4. GERD?continue proton pump inhibitor 5. DVT prophylaxis?low molecular weight heparin 6. COPD continue breathing treatments as needed and routine home medications. Inpatient E&M: 42412 Init Hosp L3
[2019-08-12 19:37] LABS: International Normalized Ratio 1.2; Prothrombin Time (Protime)PT. 14.9 SECONDS (11.7-14.9)
[2019-08-12 19:38] LABS: Partial Thromboplast Time 34.3 Seconds (24.1-36.2)
[2019-08-12 19:44] VITALS: BP 141/58; PULSE 68; RESP 16; TEMP 36.6; O2SAT 92
[2019-08-12 20:08] VITALS: BP 150/79; PULSE 63; RESP 18; TEMP 36.7; O2SAT 95
[2019-08-12 20:09] VITALS: BMI 24.5
[2019-08-12 20:14] VITALS: BMI 24.6
[2019-08-12] MEDS: HYDROmorphone 1 MG/ML Syringe IV ×2 (20:39→23:56)
[2019-08-12] MEDS: 0.9% Saline Lock 10 ML Syringe IV (20:40)
[2019-08-12] MEDS: 0.9% Normal Saline 1,000 ML 100 ML IV (21:07)
[2019-08-12 21:13] VITALS: PULSE 66
[2019-08-12] MEDS: busPIRone 5 MG Tablet PO (21:13)
[2019-08-12] MEDS: Metoprolol Tartrate 50 MG Tablet PO (21:13)
[2019-08-12] MEDS: Ibuprofen 400 MG Tablet 800 MG PO (21:13)
[2019-08-12] MEDS: Doxazosin 1 MG Tablet 2 MG PO (21:13)
[2019-08-12] MEDS: buPROPion (XL) 300 MG TABLET.XL PO (21:15)
[2019-08-12 21:25] VITALS: PULSE 69; RESP 18; O2SAT 92
[2019-08-12] MEDS: Ipratropium 0.5 MG/2.5 ML SOLUTION INHALATION (21:25)
[2019-08-13] VITALS (21 sets, daily range): BP systolic 101–162; BP diastolic 45–71; PULSE 57–80; RESP 16–20; TEMP 36.4–37.7; O2SAT 78–98; BMI 24.5; BMI 24.6
[2019-08-13] MEDS: HYDROmorphone 1 MG/ML Syringe IV ×5 (03:05→22:46)
[2019-08-13] MEDS: 0.9% Saline Lock 10 ML Syringe IV ×4 (03:06→22:46)
[2019-08-13 05:40] LABS: Absolute Lymphocyte Count 1.26 X10^3/uL (0.83-4.51); Absolute Neutrophil Count 7.2 X10^3/uL (2.0-7.7); Basophil# 0.02 X10^3/uL; Basophil% 0.2 % (0-1); Eosinophil# 0.22 X10^3/uL; Eosinophils% 2.2 % (0-5); Hematocrit 28.5 % (40-54); Hemoglobin 7.8 g/dL (13.0-16.5); Lymphocyte # 1.26 X10^3/ul (4.0); Lymphocyte % 12.5 % (19-41); Mean Corp Hgb Conc 27.4 g/dL (32-36); Mean Corpuscular Hgb 21.6 pg (27.0-32.0); Mean Corpuscular Volume 78.9 fL (80-94); Mean Platelet Vol. 7.7 fl (6.2-12.0); Monocyte# 1.32 X10^3/uL; Monocyte% 13.1 % (0-10); NRBC Flagged by Analyzer 0 % (0-5); Neutrophil % 71.4 % (47-70); Platelet Count 646 K/mm3 (150-450); RBC Distribution Width CV 18.5 % (11.6-14.6); RBC Distribution Width SD 53.5 fl (35.1-43.9); Red Blood Count 3.61 M/mm3 (4.6-6.2); White Blood Count 10.1 K/mm3 (4.4-11.0)
--- NOTE | 2019-08-13 06:00 | EKG12_ITS ---
Test Reason : PRE-OP Blood Pressure : / mmHG Vent. Rate : 068 BPM Atrial Rate : 068 BPM P-R Int : 140 ms QRS Dur : 094 ms QT Int : 420 ms P-R-T Axes : 039 044 068 degrees QTc Int : 446 ms Normal sinus rhythm Nonspecific ST abnormality Abnormal ECG When compared with ECG of 03-DEC-2018 09:08, Vent. rate has decreased BY 41 BPM T wave amplitude has increased in Inferior leads QT has shortened Confirmed by ISIDRO MAIN ([id number]), television news video editor ALEX LASSITER ([id number]) on 08/22/2019 7:57:33 AM Referred By: CHAVO Confirmed By:ISIDRO MAIN
[2019-08-13 06:05] LABS: Anion Gap 6 (5-15); BUN 17 mg/dL (7-18); BUN/Creat Ratio 22.8 RATIO (10-20); Calcium,Total 8.9 mg/dL (8.5-10.1); Chloride 101 mmol/L (98-107); Creatinine, Serum 0.75 mg/dL (0.70-1.30); EST Glomerular Filtration Rate 112 mL/min (>60); Est Glom Filt Rate - Afr Amer 135 mL/min (>60); Estimated Creatinine Clearance 91.81 ml/min; Glucose 85 mg/dL (74-106); Sodium Level 134 mmol/L (136-145)
[2019-08-13] MEDS: 0.9% Normal Saline 1,000 ML 100 ML IV ×2 (06:12→17:18)
[2019-08-13] MEDS: Ibuprofen 400 MG Tablet 800 MG PO ×2 (06:12→22:41)
[2019-08-13] MEDS: busPIRone 5 MG Tablet PO ×2 (06:12→22:43)
--- NOTE | 2019-08-13 07:18 | PN_ITS ---
Patient Problems: Active and Suspected Problems Chronic osteomyelitis of right pelvic region (Acute) Pressure injury of right buttock, stage 2 (Acute) Right ischial pressure sore, stage 4 (Acute) Reason for Visit: Chronic osteomyelitis Subjective: Patient is a 64-year-old gentleman with chronic osteomyelitis and decubitus ulcer involving the right buttocks who presented to the emergency department with right hip pain Objective: GENERAL: cooperative HEENT: Atraumatic; EYES; Anicteric, Normal Conjunctiva NECK; supple, normal thyroid, RESPIRATORY: Diminished to auscultation CARDIOVASCULAR: Regular S1 S2, GI: soft, normoactive bowel sounds, : No Renal angle tenderness; EXTREMITIES: No edema, no clubbing, MUSCULOSKELETAL: Stage IV right ischial decubitus NEURO: Awake; no lateralizing signs. SKIN: No Rash PSYCH; Flat affect Vitals/I&O's: Vital Signs Temp Pulse Resp BP Pulse Ox 97.6 F L 57 L 16 101/45 L 95 08/13/19 02:10 08/13/19 02:10 08/13/19 02:10 08/13/19 02:10 08/13/19 02:10 Oxygen Delivery Method Room Air Weight: 71.1 kg Body Mass Index (BMI) 24.5 Intake and Output for Last 24 Hours 08/11/19 08/12/19 08/13/19 23:59 23:59 23:59 Intake Total 695.25 / 695.25 960.75 / 960.75 Balance 695.25 / 695.25 960.75 / 960.75 Laboratory Results 08/12/19 17:00: WBC 11.1 H, RBC 3.91 L, Hgb 8.6 L, Hct 29.7 L, MCV 76.0 L, MCH 22.0 L, MCHC 29.0 L, RDW Std Deviation 50.0 H, RDW Coeff of Rosendo 18.3 H, Plt Count 728 H, MPV 7.7, Immature Gran % (Auto) 0.500, Neut % (Auto) 81.4 H, Lymph % (Auto) 8.7 L, [place] % (Auto) 8.5, Eos % (Auto) 0.8, Baso % (Auto) 0.1, Absolute Neuts (auto) 9.1 H, Absolute Lymphs (auto) 0.97, Nucleated RBC % 0 08/12/19 17:00: Sodium 131 L, Potassium 3.9, Chloride 95 L, Carbon Dioxide 27.0, Anion Gap 9, BUN 18, Creatinine 0.76, Estim Creat Clear Calc 87.45, Est GFR (MDRD) Af Amer 132, Est GFR (MDRD) Non-Af 109, BUN/Creatinine Ratio 23.6 H, Glucose 87, Calcium 9.3, Total Bilirubin 0.50, AST 48 H, ALT 67 H, Alkaline Phosphatase 138 H, Total Protein 9.2 H, Albumin 2.6 L, Globulin 6.6 H, Albumin/Globulin Ratio 0.4 L 08/12/19 17:00: PT 14.9, INR 1.2, APTT 34.3 08/12/19 18:45: Lactic Acid 0.9 08/13/19 05:30: WBC 10.1, RBC 3.61 L, Hgb 7.8 L, Hct 28.5 L, MCV 78.9 L, MCH 21.6 L, MCHC 27.4 L D, RDW Std Deviation 53.5 H, RDW Coeff of Rosendo 18.5 H, Plt Count 646 H, MPV 7.7, Immature Gran % (Auto) 0.600, Neut % (Auto) 71.4 H, Lymph % (Auto) 12.5 L, [place] % (Auto) 13.1 H, Eos % (Auto) 2.2, Baso % (Auto) 0.2, Absolute Neuts (auto) 7.2, Absolute Lymphs (auto) 1.26, Nucleated RBC % 0 08/13/19 05:30: Sodium 134 L, Potassium 5.0, Chloride 101, Carbon Dioxide 27.0, Anion Gap 6, BUN 17, Creatinine 0.75, Estim Creat Clear Calc 91.81, Est GFR (MDRD) Af Amer 135, Est GFR (MDRD) Non-Af 112, BUN/Creatinine Ratio 22.8 H, Glucose 85, Calcium 8.9 Current Medications Amlodipine Besylate (Norvasc) 5 mg PO DAILY [facility] Ascorbic Acid (Vitamin C) 500 mg PO DAILY@0800 [facility] Bupropion HCl (Wellbutrin Xl) 300 mg PO QHS [facility] Last Admin: 08/12/19 21:15 Dose: 300 mg Documented by: Buspirone HCl (Buspar) 5 mg PO TID [facility] Last Admin: 08/13/19 06:12 Dose: 5 mg Documented by: Cholecalciferol (Vitamin D (25mcg)) 1,000 unit PO DAILY [facility] Dextrose (D50w Syringe) 0 gm IV X1 PRN; Protocol PRN Reason: Hypoglycemia Diazepam (Valium) 5 mg PO 4X/DAY PRN PRN PRN Reason: SPASMS Doxazosin Mesylate (Cardura) 2 mg PO QHS [facility] Last Admin: 08/12/19 21:13 Dose: 2 mg Documented by: Ezetimibe (Zetia) 10 mg PO DAILY [facility] Enoxaparin Sodium (Lovenox) 40 mg SC DAILY [facility] Escitalopram Oxalate (Lexapro) 10 mg PO DAILY [facility] Ferrous Gluconate (Ferrous Gluconate) [facility] Fluticasone Propionate (Flonase Nasal [place]) 2 spray NASAL DAILY [facility] Gabapentin (Neurontin) 600 mg PO TIDCM [facility] Glucagon () 1 mg IM .X1 PRN PRN Reason: Hypoglycemia Hydromorphone HCl (Dilaudid Inj) 1 mg IV Q3H PRN PRN PRN Reason: Pain Score 6-10/10 Last Admin: 08/13/19 06:11 Dose: 1 mg Documented by: Sodium Chloride () 1,000 mls @ 100 mls/hr IV .Q10H [facility] Last Admin: 08/13/19 06:12 Dose: 100 mls/hr Documented by: Sodium Chloride () 250 mls @ 15 mls/hr IV .[id number] PRN PRN Reason: Saline Flush Last Admin: 08/13/19 06:13 Dose: 15 mls/hr Documented by: Sodium Chloride () 250 mls @ 15 mls/hr IV .[id number] PRN PRN Reason: Additional IVPB Infusion Ibuprofen (Motrin) 800 mg PO TID [facility] Last Admin: 08/13/19 06:12 Dose: 800 mg Documented by: Ipratropium [place] (Atrovent) 0.5 mg INHALATION Q6HWA.RT [facility] Last Admin: 08/12/19 21:25 Dose: 0.5 mg Documented by: Metoprolol Tartrate (Lopressor (Beta Joo)) 50 mg PO BID [facility] Last Admin: 08/12/19 21:13 Dose: 50 mg Documented by: Multivitamins (Multivitamin) 1 tablet PO DAILY@0800 [facility] Ondansetron HCl (Zofran) 4 mg IV Q8H PRN PRN PRN Reason: NAUSEA/VOMITING Pantoprazole Sodium (Protonix) 40 mg PO DAILY [facility] Sodium Chloride () 10 - 40 ml IV UD PRN PRN Reason: SALINE FLUSH Last Admin: 08/13/19 03:06 Dose: 10 ml Documented by: Medical Necessity - Tobacco Use Smoking Status: Former smoker Assessment/Plan All Active Problems Candidal skin infection (Acute) Pressure sore of left ischium, stage 2 (Acute) Chronic osteomyelitis of right pelvic region (Acute) Infection and inflammatory reaction due to internal left knee prosthesis, initial encounter (Acute) Pressure injury of right buttock, stage 2 (Acute) Skin ulcer of left thigh with fat layer exposed (Acute) MRSA bacteremia (Acute) Pneumonia (Acute) SBO (small bowel obstruction) (Acute) Hypotension (Acute) Right ischial pressure sore, stage 4 (Acute) Hyponatremia (Acute) Patient is a 64-year-old gentleman with chronic osteomyelitis and decubitus ulcer involving the right buttocks who presented to the emergency department with right hip pain 1. Chronic osteomyelitis and pressure ulcer right buttock -CT obtained on admission demonstrated Large deep decubitus ulcer posterior to the right ischial tuberosity with associated sclerosis and osseous fragmentation and erosion, increased in extent and severity in the interval. Admitted to the regular nursing floor with consultation placed to plastic surgery for debridement. Patient was started on broad-spectrum antibiotic consultation placed infectious disease 2. Hypertension - Blood pressure controlled, home medications continued with dose adjustment as needed 3. GERD ?On PPI 4. COPD ?Not in exacerbation 5. Depression with anxiety - Patient is on Wellbutrin acceptable continue 6. Dyslipidemia ?Patient on Zetia 7. Anemia ?Secondary to anemia of chronic disorder monitoring H&H with plan to transfuse i f patient becomes symptomatic or hemoglobin falls below 7 8. DVT prophylaxis - On enoxaparin Active Medications Amlodipine Besylate (Norvasc) 5 mg PO DAILY [facility] Ascorbic Acid (Vitamin C) 500 mg PO DAILY@0800 [facility] Bupropion HCl (Wellbutrin Xl) 300 mg PO QHS [facility] Last Admin: 08/12/19 21:15 Dose: 300 mg Documented by: Buspirone HCl (Buspar) 5 mg PO TID [facility] Last Admin: 08/13/19 06:12 Dose: 5 mg Documented by: Cholecalciferol (Vitamin D (25mcg)) 1,000 unit PO DAILY [facility] Dextrose (D50w Syringe) 0 gm IV X1 PRN; Protocol PRN Reason: Hypoglycemia Diazepam (Valium) 5 mg PO 4X/DAY PRN PRN PRN Reason: SPASMS Doxazosin Mesylate (Cardura) 2 mg PO QHS [facility] Last Admin: 08/12/19 21:13 Dose: 2 mg Documented by: Ezetimibe (Zetia) 10 mg PO DAILY [facility] Enoxaparin Sodium (Lovenox) 40 mg SC DAILY [facility] Escitalopram Oxalate (Lexapro) 10 mg PO DAILY [facility] Ferrous Gluconate (Ferrous Gluconate) 324 mg PO BIDCM [facility] Fluticasone Propionate (Flonase Nasal [place]) 2 spray NASAL DAILY [facility] Gabapentin (Neurontin) 600 mg PO TIDCM [facility] Glucagon () 1 mg IM .X1 PRN PRN Reason: Hypoglycemia Hydromorphone HCl (Dilaudid Inj) 1 mg IV Q3H PRN PRN PRN Reason: Pain Score 6-10/10 Last Admin: 08/13/19 06:11 Dose: 1 mg Documented by: Sodium Chloride () 1,000 mls @ 100 mls/hr IV .Q10H [facility] Last Admin: 08/13/19 06:12 Dose: 100 mls/hr Documented by: Sodium Chloride () 250 mls @ 15 mls/hr IV .[id number] PRN PRN Reason: Saline Flush Last Admin: 08/13/19 06:13 Dose: 15 mls/hr Documented by: Sodium Chloride () 250 mls @ 15 mls/hr IV .[id number] PRN PRN Reason: Additional IVPB Infusion Ibuprofen (Motrin) 800 mg PO TID [facility] Last Admin: 08/13/19 06:12 Dose: 800 mg Documented by: Ipratropium [place] (Atrovent) 0.5 mg INHALATION Q6HWA.RT [facility] Last Admin: 08/13/19 07:19 Dose: 0.5 mg Documented by: Metoprolol Tartrate (Lopressor (Beta Joo)) 50 mg PO BID [facility] Last Admin: 08/12/19 21:13 Dose: 50 mg Documented by: Multivitamins (Multivitamin) 1 tablet PO DAILY@0800 [facility] Ondansetron HCl (Zofran) 4 mg IV Q8H PRN PRN PRN Reason: NAUSEA/VOMITING Pantoprazole Sodium (Protonix) 40 mg PO DAILY [facility] Sodium Chloride () 10 - 40 ml IV UD PRN PRN Reason: SALINE FLUSH Last Admin: 08/13/19 03:06 Dose: 10 ml Documented by: Clinical Impression(s) from Imaging Studies Pelvis CT 08/12/19 16:46 IMPRESSION: 1. Large deep decubitus ulcer posterior to the right ischial tuberosity with associated sclerosis and osseous fragmentation and erosion, increased in extent and severity in the interval. 2. There is demonstrated at this time fragmentation of the superolateral right acetabular rim raising the suspicion of osteomyelitis. 3. There is a deep soft tissue low attenuation region with several punctate air densities anterior to the right hip measuring 5.6 x 4.0 x 6.4 cm suggestive of phlegmon. This is in a region of previous surgery. There is edema of soft tissue fat posterior to this area. Electronically Signed: Anmol Simpson MD at 18:32 EDT , Service support , Inpatient E&M: 90607 Subs Hosp L3
[2019-08-13] MEDS: Ipratropium 0.5 MG/2.5 ML SOLUTION INHALATION (07:19)
--- NOTE | 2019-08-13 07:35 | PN.SURG_ITS ---
Subjective: Patient is known to me. He underwent surgery on 02/11/19 where he underwent excision recurrent pressure sore right ischial area, Stage IV, with partial ostectomy for osteomyelitis. He has a history of radiation damage to the right ischial area secondary to treatment for anal cancer. He [facility]. The goal was for wound closure with a myocutaneous flap. After his surgery in February, his mother and he was left living at home alone which was problematic since the wound was only redressed three times per week. He also developed depression from his mother's and spent a lot of time just sitting all day long. When he came to the [facility] yesterday, it was noted he had a new onset left ischial pre ssure sore with necrosis. He was then admitted to the hospital and Vancomycin and Zosyn antibiotics were started. Wound care was started with Dakin's dressings. I was asked to evaluate this patient for surgical options for treatment. His Hgb this morning was 7.8. His WBC was 10.1. PAST MEDICAL HISTORY COPD. Hepatitis C carrier. Anal carcinoma treated with chemotherapy and radiation therapy. Late effect radiation. MRSA. 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 PAST SURGICAL HISTORY Total hip arthroplasty - left. Total knee arthroplasty - Surgical preparation right gluteal/ischial area with excision radiation pressure sore abscess wound and partial ostectomy for osteomyelitis (52.5 cm2) - 12/30/16 Excision radiation pressure sore abscess ulcer right ischial area, Stage IV, with partial ostectomy for osteomyelitis - 06/08/17 Excision radiation pressure sore abscess ulcer right ischial area, Stage IV, wit h partial ostectomy for osteomyelitis - 10/17/17 Flap closure at [facility] Diverting colostomy - 09/15/18 Excision recurrent right ischial pressure sore, Stage IV, with partial ostectomy for osteomyelitis - 02/11/19 ALLERGIES povidone-iodine [From Betadine] Allergy - Hives [id number] Reductase Inhibitor Adverse Reaction - MESSED MY LIVER UP adhesive tape Allergy - Itching/rash HOME MEDICATIONS Norvasc. Vitamin C. Wellbutrin. Buspar. Vitamin D3. Valium. Cardura. Lexapro. Zetia. Ferrous Gluconate. Flonase. Neurontin. Motrin. Metoprolol. MVI. OxyIR. Protonix. Spiriva. Zanaflex. SOCIAL HISTORY Lives: With Family Smoking Status: Former smoker Tobacco Use: Non-smoker Alcohol: None Drugs: None FAMILY HISTORY Maternal - no pertinent history Paternal - no pertinent history REVIEW OF SYSTEMS Constitutional: Denies: Chills, Fever, Weight Change. HEENT: Denies: Head Aches, Sinus Congestion, Sinus Drainage. Cardiovascular: Denies: Chest Pain, Palpitations. Respiratory: Denies: Cough, Shortness of breath at rest, Sputum production. Gastrointestinal: Denies: Abdominal Pain, Nausea, Vomiting. Genitourinary: Denies: Dysuria. Musculoskeletal: Denies: Joint Pain, Joint Tenderness. Skin: Reports: Wounds - right buttocks., -. Denies: Rash. Neurological: Denies: Numbness, Tingling, Focal weakness. Psychiatric: Denies: Anxiety, Depression, Homicidal Ideations, Suicidal Ideations. Hematologic/ Lymphatic: Denies: Easy Bruising, Easy Bleeding - Physical Exam Vitals/I&O's: Vital Signs Temp Pulse Resp BP Pulse Ox 97.6 F L 76 20 H 101/45 L 92 08/13/19 02:10 08/13/19 07:21 08/13/19 07:21 08/13/19 02:10 08/13/19 07:21 Oxygen Delivery Method Room Air Weight: 156 lb 11.979 oz Body Mass Index (BMI) 24.5 Intake and Output for Last 24 Hours 08/11/19 08/12/19 08/13/19 23:59 23:59 23:59 Intake Total 695.25 / 695.25 960.75 / 960.75 Balance 695.25 / 695.25 960.75 / 960.75 General: Alert, Oriented x3 HEENT: PERRLA, EOMI Oral: Moist Mucosa Neck: Supple Abdomen: Soft, Non-Distended Skin: Ulcer/ Wound - Has a chronic radiation pressure sore ulcer right ischial area, Stage IV, and a new onset necrotic left ischial pressure sore. It is at least a Stage III but I suspect a Stage IV after debridement. Some odor and some drainage noted. Right side measures 5.5 x 3.5 x 2 cm. Left side measures 3 x 5 x 1 cm. Neurological: Cranial nerves II-XII grossly intact Psych/Mental Status: Normal Affect, Appropriate Laboratory Results 08/12/19 17:00: WBC 11.1 H, RBC 3.91 L, Hgb 8.6 L, Hct 29.7 L, MCV 76.0 L, MCH 22.0 L, MCHC 29.0 L, RDW Std Deviation 50.0 H, RDW Coeff of Rosendo 18.3 H, Plt Count 728 H, MPV 7.7, Immature Gran % (Auto) 0.500, Neut % (Auto) 81.4 H, Lymph % (Auto) 8.7 L, [place] % (Auto) 8.5, Eos % (Auto) 0.8, Baso % (Auto) 0.1, Absolute Neuts (auto) 9.1 H, Absolute Lymphs (auto) 0.97, Nucleated RBC % 0 08/12/19 17:00: Sodium 131 L, Potassium 3.9, Chloride 95 L, Carbon Dioxide 27.0, Anion Gap 9, BUN 18, Creatinine 0.76, Estim Creat Clear Calc 87.45, Est GFR (MDRD) Af Amer 132, Est GFR (MDRD) Non-Af 109, BUN/Creatinine Ratio 23.6 H, Glucose 87, Calcium 9.3, Total Bilirubin 0.50, AST 48 H, ALT 67 H, Alkaline Phosphatase 138 H, Total Protein 9.2 H, Albumin 2.6 L, Globulin 6.6 H, Albumin/Globulin Ratio 0.4 L 08/12/19 17:00: PT 14.9, INR 1.2, APTT 34.3 08/12/19 18:45: Lactic Acid 0.9 08/13/19 05:30: WBC 10.1, RBC 3.61 L, Hgb 7.8 L, Hct 28.5 L, MCV 78.9 L, MCH 21.6 L, MCHC 27.4 L D, RDW Std Deviation 53.5 H, RDW Coeff of Rosendo 18.5 H, Plt Count 646 H, MPV 7.7, Immature Gran % (Auto) 0.600, Neut % (Auto) 71.4 H, Lymph % (Auto) 12.5 L, [place] % (Auto) 13.1 H, Eos % (Auto) 2.2, Baso % (Auto) 0.2, Absolute Neuts (auto) 7.2, Absolute Lymphs (auto) 1.26, Nucleated RBC % 0 08/13/19 05:30: Sodium 134 L, Potassium 5.0, Chloride 101, Carbon Dioxide 27.0, Anion Gap 6, BUN 17, Creatinine 0.75, Estim Creat Clear Calc 91.81, Est GFR (MDRD) Af Amer 135, Est GFR (MDRD) Non-Af 112, BUN/Creatinine Ratio 22.8 H, Glucose 85, Calcium 8.[address] 08/12/19 16:46 IMPRESSION: 1. Large deep decubitus ulcer posterior to the right ischial tuberosity with associated sclerosis and osseous fragmentation and erosion, increased in extent and severity in the interval. 2. There is demonstrated at this time fragmentation of the superolateral right acetabular rim raising the suspicion of osteomyelitis. 3. There is a deep soft tissue low attenuation region with several punctate air densities anterior to the right hip measuring 5.6 x 4.0 x 6.4 cm suggestive of phlegmon. This is in a region of previous surgery. There is edema of soft tissue fat posterior to this area. Electronically Signed: Anmol Simpson MD at 18:32 EDT , Service support , Current Medications Amlodipine Besylate (Norvasc) 5 mg PO DAILY [facility] Ascorbic Acid (Vitamin C) 500 mg PO DAILY@0800 [facility] Bupropion HCl (Wellbutrin Xl) 300 mg PO QHS [facility] Last Admin: 08/12/19 21:15 Dose: 300 mg Documented by: Buspirone HCl (Buspar) 5 mg PO TID [facility] Last Admin: 08/13/19 06:12 Dose: 5 mg Documented by: Cholecalciferol (Vitamin D (25mcg)) 1,000 unit PO DAILY [facility] Dextrose (D50w Syringe) 0 gm IV X1 PRN; Protocol PRN Reason: Hypoglycemia Diazepam (Valium) 5 mg PO 4X/DAY PRN PRN PRN Reason: SPASMS Doxazosin Mesylate (Cardura) 2 mg PO QHS [facility] Last Admin: 08/12/19 21:13 Dose: 2 mg Documented by: Ezetimibe (Zetia) 10 mg PO DAILY [facility] Enoxaparin Sodium (Lovenox) 40 mg SC DAILY [facility] Escitalopram Oxalate (Lexapro) 10 mg PO DAILY [facility] Ferrous Gluconate (Ferrous Gluconate) 324 mg PO BIDCM [facility] Fluticasone Propionate (Flonase Nasal [place]) 2 spray NASAL DAILY [facility] Gabapentin (Neurontin) 600 mg PO TIDCM [facility] Glucagon () 1 mg IM .X1 PRN PRN Reason: Hypoglycemia Hydromorphone HCl (Dilaudid Inj) 1 mg IV Q3H PRN PRN PRN Reason: Pain Score 6-10/10 Last Admin: 08/13/19 06:11 Dose: 1 mg Documented by: Sodium Chloride () 1,000 mls @ 100 mls/hr IV .Q10H [facility] Last Admin: 08/13/19 06:12 Dose: 100 mls/hr Documented by: Sodium Chloride () 250 mls @ 15 mls/hr IV .[id number] PRN PRN Reason: Saline Flush Last Admin: 08/13/19 06:13 Dose: 15 mls/hr Documented by: Sodium Chloride () 250 mls @ 15 mls/hr IV .[id number] PRN PRN Reason: Additional IVPB Infusion Vancomycin IV Pharmacy to Dose (1 ea/ Sodium Chloride) 500 mls @ 250 mls/hr IV X1 PRN; Protocol PRN Reason: Rx to Dose Piperacillin Sod/Tazobactam (Sod 3.375 gm/ Sodium Chloride) 50 mls @ 12.5 mls/hr IV Q8 [facility] Ibuprofen (Motrin) 800 mg PO TID [facility] Last Admin: 08/13/19 06:12 Dose: 800 mg Documented by: Ipratropium [place] (Atrovent) 0.5 mg INHALATION Q6HWA.RT [facility] Last Admin: 08/13/19 07:19 Dose: 0.5 mg Documented by: Metoprolol Tartrate (Lopressor (Beta Joo)) 50 mg PO BID [facility] Last Admin: 08/12/19 21:13 Dose: 50 mg Documented by: Multivitamins (Multivitamin) 1 tablet PO DAILY@0800 [facility] Ondansetron HCl (Zofran) 4 mg IV Q8H PRN PRN PRN Reason: NAUSEA/VOMITING Pantoprazole Sodium (Protonix) 40 mg PO DAILY [facility] Sodium Chloride () 10 - 40 ml IV UD PRN PRN Reason: SALINE FLUSH Last Admin: 08/13/19 03:06 Dose: 10 ml Documented by: Medical Necessity - Tobacco Use Smoking Status: Former smoker Assessment/Plan All Active Problems Skin necrosis (Acute) Candidal skin infection (Acute) Infection and inflammatory reaction due to internal left knee prosthesis, initial encounter (Acute) Skin ulcer of left thigh with fat layer exposed (Acute) MRSA bacteremia (Acute) Pneumonia (Acute) SBO (small bowel obstruction) (Acute) Hypotension (Acute) Hyponatremia (Acute) 1. Recurrent right ischial pressure sore, Stage IV. 2. 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 3. Osteomyelitis. 4. MRSA. 5. Necrotic left ischial pressure sore, at least Stage III. 6. History of anal CA treated with chemotherapy and radiation therapy. 7. Anemia of chronic disease. Continue Vancomycin and Zosyn. He needs urgent operative excision of these pressure sores along with partial ostectomy for osteomyelitis. I suspect the new onset necrotic left ischial pressure sore extends to and involves the bone Soft tissue and bone will be sent to Pathology and Microbiology to evaluate for osteomyelitis. Anticipate increased metabolic demands from the infection and from the large wounds. Will check a Prealbumin and encourage nutritional supplementation with protein to help the healing process. After the surgery will continue Azar's dressing changes. Since he lives by himself, he needs to go to an ECF until these multiple infected ischial pressure sores are stabilized with evidence of healing. Preoperatively his Hgb was 7.8. Will need PRBC before the surgery and most likely after the surgery as well. He has a history of MRSA and Pseudomonas. So I anticipate a PICC line will be necessary for supervisor intermediates IV antibiotic therapy. After discharge will followup at the [facility]. Will take him to surgery urgently today since he is at risk for becoming septic. It will be under general anesthesia. Patient was informed of the risks and complications of the procedure including alternatives to surgery. These were discussed with the patient personally. Patient voices understanding and wishes to proceed. Procedure Criteria Procedure Type: Essential Procedure Essential: Yes Criteria Statement: On 05/28/2019 the [place] Department of Health ([facility]) Public Order signed by [facility] Director Stephanie Garzon M.D., regarding the Management of Non-Essential Surgeries and Procedures for the purpose of preserving Personal Protective Equipment (PPE) and critical hospital capacity and resources within [place] went into effect as of 05/29/2019 at 5:00PM. According to the [facility] Public Order: This action will remain in full force and effect until the State of Emergency declared by the Governor no longer exists or the Director of the [facility] rescinds or modifies this Order. This [facility] order stated all non-essential or elective surgeries and procedures that utilize PPE should be delayed unless there is undue risk to the current or future health of a patient. After reviewing the aforementioned [facility] Public Order and the patient's clinical case, I have determined that the scheduled procedure meets the criteria to go forward. Risk to Patient if Procedure Delayed: Risk of rapidly worsening to severe symptoms if delayed - Patient has worsening bilateral ischial pressure sores with necrosis and infection with osteomyelitis. Inpatient E&M: 52112 Init Hosp L3 - 57 Modifier ICD-10 - L89.314, L89.324, I96, M86.651, T66.xxxS, L59.8, A49.02, Z85.048
--- NOTE | 2019-08-13 08:48 | NURSING ---
Low air loss mattress ordered for patient. Pt is scheduled for surgery later this afternoon.
--- NOTE | 2019-08-13 08:51 | NURSING ---
wound photo: right 2nd toe
--- NOTE | 2019-08-13 08:51 | NURSING ---
wound photo: right heel
--- NOTE | 2019-08-13 08:52 | NURSING ---
wound photo: left heel
--- NOTE | 2019-08-13 08:52 | NURSING ---
wound photo: bilateral ischium/buttocks
[2019-08-13] MEDS: Fluticasone 0.05% 1 SPRAY NASAL.SRY 2 SPRAY NASAL (09:05)
--- NOTE | 2019-08-13 09:52 | CON.PCM_ITS ---
Problem List (1) Chronic osteomyelitis of right pelvic region Status: Acute Reason for Consult: osteo Consulted by: Dr. Price History of Present Illness: The patient is a 64 year old M with chronic pelvic osteo and prior rectal cancer requiring radiation therapy. Prior h/o MRSA and PsA infection, on chronic doxy, follows with Dr. Mesa. Has been in chair more recently, reports increasing pain and drainage. Seen in wound care, sent to ED, admitted on vanc/zosyn, going to OR today. Denies fever, chills, no sick contacts. No cough or SOB, no abd pain. Full ROS performed and neg except as noted above. 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) Anal cancer (Chronic) Hepatitis C carrier (Chronic) COPD (chronic obstructive pulmonary disease) (Chronic) Anxiety and depression (Chronic) HTN (hypertension) (Chronic) HLD (hyperlipidemia) (Chronic) GERD (gastroesophageal reflux disease) (Chronic) PAD (peripheral artery disease) (Chronic) Allergies/Adverse Reactions: Allergies chlorthalidone Allergy (Verified 08/12/19 16:20) Other famotidine Allergy (Verified 08/12/19 16:20) Unknown povidone-iodine [From Betadine] Allergy (Verified 08/12/19 16:20) Hives soap Adverse Reaction (Verified 08/12/19 16:20) Hives Rkezrub-Huw-Xqu Reductase Inhibitor Adverse Reaction (Verified 08/12/19 16:20) MESSED MY LIVER UP adhesive tape Allergy (Uncoded 08/12/19 16:20) Itching/rash Home Medications: Ambulatory Orders Medication Instructions Recorded Escitalopram Oxalate [Lexapro] 10 mg PO DAILY 03/22/16 Fluticasone 0.05% [Flonase Nasal 2 spray NASAL DAILY 03/22/16 [place]] Multivitamin [Multiple Vitamins] 1 each PO DAILY 03/22/16 buPROPion XL [Wellbutrin Xl] 300 mg PO DAILY 03/22/16 busPIRone [Buspar] 5 mg PO TID 03/22/16 Tiotropium [place] [Spiriva 2 puff INHALATION DAILY 10/20/16 Respimat] Tizanidine HCl [Zanaflex] 4 mg PO Q8H PRN PRN 12/27/16 Metoprolol Tartrate [Lopressor 50 mg PO BID 01/19/18 (beta curt)] Pantoprazole Sodium [Protonix] 40 mg PO DAILY 03/19/18 Amlodipine [Norvasc] 5 mg PO DAILY 08/22/18 Ascorbic Acid [Vitamin C] 500 mg PO DAILY@0800 08/22/18 Ferrous Gluconate 324 mg PO BID 08/22/18 [place]gin/Glut/Cahmb/Collag/Mv-Min 1 pack BC TID 10/18/18 [Chuy Packet] Cholecalciferol (VIT D3) [Vitamin 1,000 unit PO DAILY 10/18/18 D3] Ezetimibe [Zetia] 10 mg PO DAILY 10/18/18 Nystatin [Mycostatin] 1 applic TOPICAL BID 02/08/19 Diazepam [Valium] 5 mg PO 4X/DAY PRN PRN #30 tab 02/14/19 Oxycodone [Oxyir] 5 mg PO Q4H PRN PRN 7 Days #40 tab 02/14/19 Doxazosin Mesylate [Cardura] 2 mg PO QHS 08/12/19 Gabapentin [Neurontin] 600 mg PO TIDCM 08/12/19 Ibuprofen 800 mg PO TID 08/12/19 - Social History SMOKING STATUS:: Former smoker Vital Signs Temp Pulse Resp BP Pulse Ox 97.8 F 80 18 139/71 H 95 08/13/19 09:01 08/13/19 09:01 08/13/19 09:01 08/13/19 09:01 08/13/19 09:01 Oxygen Flow Rate (L/min) 3 Oxygen Delivery Method Nasal Cannula Weight: 71.1 kg Body Mass Index (BMI) 24.5 Laboratory Tests Past 24 Hrs 08/12/19 08/12/19 08/12/19 17:00 17:00 17:00 WBC 11.1 H RBC 3.91 L Hgb 8.6 L Hct 29.7 L MCV 76.0 L MCH 22.0 L MCHC 29.0 L RDW Std Deviation 50.0 H RDW Coeff of Ros[place] 18.3 H Plt Count 728 H MPV 7.7 Immature Gran % (Auto) 0.500 Neut % (Auto) 81.4 H Lymph % (Auto) 8.7 L [place] % (Auto) 8.5 Eos % (Auto) 0.8 Baso % (Auto) 0.1 Absolute Neuts (auto) 9.1 H Absolute Lymphs (auto) 0.97 Nucleated RBC % 0 PT 14.9 INR 1.2 APTT 34.3 Sodium 131 L Potassium 3.9 Chloride 95 L Carbon Dioxide 27.0 Anion Gap 9 BUN 18 Creatinine 0.76 Estim Creat Clear Calc 87.45 Est GFR (MDRD) Af Amer 132 Est GFR (MDRD) Non-Af 109 BUN/Creatinine Ratio 23.6 H Glucose 87 Lactic Acid Calcium 9.3 Total Bilirubin 0.50 AST 48 H ALT 67 H Alkaline Phosphatase 138 H Total Protein 9.2 H Albumin 2.6 L Globulin 6.6 H Albumin/Globulin Ratio 0.4 L Blood Type Antibody Screen Crossmatch 08/12/19 08/13/19 08/13/19 18:45 05:30 05:30 WBC 10.1 RBC 3.61 L Hgb 7.8 L Hct 28.5 L MCV 78.9 L MCH 21.6 L MCHC 27.4 L D RDW Std Deviation 53.5 H RDW Coeff of [place] 18.5 H Plt Count 646 H MPV 7.7 Immature Gran % (Auto) 0.600 Neut % (Auto) 71.4 H Lymph % (Auto) 12.5 L [place] % (Auto) 13.1 H Eos % (Auto) 2.2 Baso % (Auto) 0.2 Absolute Neuts (auto) 7.2 Absolute Lymphs (auto) 1.26 Nucleated RBC % 0 PT INR APTT Sodium 134 L Potassium 5.0 Chloride 101 Carbon Dioxide 27.0 Anion Gap 6 BUN 17 Creatinine 0.75 Estim Creat Clear Calc 91.81 Est GFR (MDRD) Af Amer 135 Est GFR (MDRD) Non-Af 112 BUN/Creatinine Ratio 22.8 H Glucose 85 Lactic Acid 0.9 Calcium 8.9 Total Bilirubin AST ALT Alkaline Phosphatase Total Protein Albumin Globulin Albumin/Globulin Ratio Blood Type Antibody Screen Crossmatch 08/13/19 08:22 WBC RBC Hgb Hct MCV MCH MCHC RDW Std Deviation RDW Coeff of [place] Plt Count MPV Immature Gran % (Auto) Neut % (Auto) Lymph % (Auto) [place] % (Auto) Eos % (Auto) Baso % (Auto) Absolute Neuts (auto) Absolute Lymphs (auto) Nucleated RBC % PT INR APTT Sodium Potassium Chloride Carbon Dioxide Anion Gap BUN Creatinine Estim Creat Clear Calc Est GFR (MDRD) Af Amer Est GFR (MDRD) Non-Af BUN/Creatinine Ratio Glucose Lactic Acid Calcium Total Bilirubin AST ALT Alkaline Phosphatase Total Protein Albumin Globulin Albumin/Globulin Ratio Blood Type Pending Antibody Screen Pending Crossmatch See Detail - Other Studies Radiology: [] reviewed Other Studies: [] Route of nutrition/ use of supplements: [] Nutritional Intake: [] IV Site: [] Walker Catheter: [] - Physical Exam General: Alert, Oriented x3, Cooperative, No apparent distress HEENT: Atraumatic, PERRLA, EOMI Neck: Supple, No Nodes Lungs: Clear to auscultation, Normal air movement Cardiovascular: Regular rate, Regular Rhythm Abdomen: Soft, Non Tender, Non-Distended, - - ostomy in place Extremities: Edema Skin: Ulcer/ Wound - reviewed photos IV Site: Peripheral, without redness Musculoskeletal: No Tenderness to Palpation of Joints or Extremities Neurological: Cranial nerves II-XII grossly intact - Assessment/Plan Antibiotics: [] Assessment/Plan: [] Active and Suspected Problems Chronic osteomyelitis of right pelvic region (Acute) Pressure injury of right buttock, stage 2 (Acute) Right ischial pressure sore, stage 4 (Acute) Pelvic osteo - going to OR this afternoon with Dr. Mesa. Prior cxs with MRSA, PsA, proteus, corynebacteria. Cont vanc/zosyn. Will order pre-op covid screen; low suspicion for active covid infection. Will follow, thank you.
--- NOTE | 2019-08-13 10:21 | PCM.RX.CS ---
Consult Pharmacy has been consulted to manage selected antiobiotic: Vancomycin Type of Consult: New start Suspected Infection: Osteomyelitis, Bacteremia Prior Doses of Antibiotics Received/Current Regimen: Received 2gm iv x 1 in ER 08.12.19 and 1750mg iv x 1 in AM .05.02. Labs: Sodium 134 mmol/L (136-145) L 08/13/19 05:30 Potassium 5.0 mmol/L (3.5-5.1) 08/13/19 05:30 Chloride 101 mmol/L (98-107) 08/13/19 05:30 Carbon Dioxide 27.0 mmol/L (21.0-32.0) 08/13/19 05:30 Anion Gap 6 (5-15) 08/13/19 05:30 BUN 17 mg/dL (7-18) 08/13/19 05:30 Creatinine 0.75 mg/dL (0.70-1.30) 08/13/19 05:30 Est GFR (MDRD) Af Amer 135 mL/min (>60) 08/13/19 05:30 Est GFR (MDRD) Non-Af 112 mL/min (>60) 08/13/19 05:30 BUN/Creatinine Ratio 22.8 RATIO (10-20) H 08/13/19 05:30 Glucose 85 mg/dL (74-106) 08/13/19 05:30 Weight used for dosin kg Estimated Creatinine Clearance: ~92ml/min Goal Trough: 15-20 mcg/mL Pharmacy Plan for Drug Dosing: Will begin 1500mg iv q12h. Trough ordered for .05.30 in AM. Pharmacy Service will continue to monitor and adjust dosing as required. Follow-Up Labs: Trough Vancomycin - 6.3.20 @0930 before 1000 dose
--- NOTE | 2019-08-13 10:45 | NURSING ---
stoma photo: left lower abdomen
--- NOTE | 2019-08-13 10:47 | NURSING ---
The colostomy appliance to the left lower abdomen with some stool noted under the flange. removed the appliance. there was a small amount of dark brown stool noted in the appliance. there are a few wounds noted to the periwound ranging from 0.5cm x 2cm to 0.5cm x 0.5cm. Pt states they have been there a while. it also appears that patient has been cutting the opening too large. the peristomal skin is slightly denuded as well. stoma measures approx 3/8 and sits just above the skin level. cleansed peristomal skin with soap and water. pat dry. placed Melgisorb to the open areas and covered with comfeel clear dressings. then placed the 2 piece flat [place] appliance with a small amount of stoma paste. Pt tolerated well. see stoma photo.
--- NOTE | 2019-08-13 11:05 | CASEMGMT ---
RUBEN MEDEIROS Face to Face with patient for initial transition planning/care coordination assessment. RUBEN MEDEIROS introduced self and role at [facility]. Patient lying in bed, alert and oriented. Patient willing to participate in assessment and is able to answer all questions appropriately. Care providers, pharmacy, and demographics verified. Patient wishes to discharge home with resumption of HHC, or will go to SNF if necessary . Patient states he has no further needs or concerns at this time. CM to follow for discharge planning needs that may arise. PCP: [facility]: pino Mesa Preferred Pharmacy: [facility] Insurance: [employer] Prescription Benefit: yes Living Will/HPOA: none LNOK: brother Living Arrangements: Patient states he is living with his brother in 2 story home. Patient states he is independent with self care but mostly stays in his recliner all day. Transportation: Provide a Ride DME/HHC: Patient states he has shower chair, raised toilet, grab bars, and walker. Patient states he has previously been or [facility] and [facility]. Patient states he is current with [facility]. Patient is not active with [facility]. RUBEN MEDEIROS called [facility] and he is currently with them for shelter P: [phone] F:[phone]. Disposition Plan: TBD by course of treatment HHC vs SNF. Caroline LIRIANO, RN, CM
--- NOTE | 2019-08-13 13:45 | PRES_PTH ---
PATIENT: BRYN TROTTER LOC: [facility]3 U#:[id number] AGE/SX: 64/M ROOM: PA322 RE08/12/[address]: Dr. Chandan Leigh DO : 1955 BED: 1 DIS: 08/23/2019 SPEC #: [id number] RECD: 08/14/19 08:04 STATUS: JUAN DIEGO REQ #: [id number] BURT: 08/13/19 13:[address]: Venkat Mesa DEPT: SURGICAL PATHOLOGY RECD BY: Rita Valera ENTERED: 08/14/19 09:16 SP TYPE: PRESS SORE OTHR DR: MD Dr. Mynor Freedman MD Dr. James A Slaby, MD Dr. Paul Nielsen, MD Dr. Robert Leininger, MD Tissues: A - Ischium, NOS B - Ischium, NOS C - Ischium, NOS D - Ischium, NOS Procedures: Decalcification bone/plaque Surgery Specimen Level IV Comments: @ Ordering doctor for DEC edited from to DR.JSLABY Staton by KATIA at 08/15/19 0753 @ Ordering doctor for SUIV edited from to @ by KATIA at 08/15/19 0753 @ Submitting doctor edited from to DR.JSLABY Shemar MONTALVO at 08/15/19 0753 HEADER OPERATION: Excision pressure sore, partial ostectomy PRE-OP DIAGNOSIS: Pressure sore of left ischium stage 4; right ischial pressure sore stage 4 TISSUE SUBMITTED: A - Tissue left ischium, B - Bone left ischium, C - Tissue right ischium, D - Bone right ischium MICROSCOPIC DIAGNOSIS A. Skin and soft tissue of left ischium, excision: Ulceration with associated acute and chronic inflammation and granulation. B. Left ischium bone, biopsy: Reparative and reactive change. No evidence of acute osteomyelitis. C. Skin and soft tissue of right ischium, excision: Ulceration with associated acute and chronic inflammation and granulation. Minute fragments of bone with acute osteomyelitis. D. Right ischium bone, biopsy: Acute osteomyelitis. AM:isi 08/19/19 MICROSCOPIC DESCRIPTION Slides are reviewed. GROSS DESCRIPTION A - Received in fixative is one container labeled with the patient's name and designated tissue left ischium. The specimen consists of a piece of skin with underlying tissue measuring 6.5 x 5.5 cm and up to 2.5 cm in thickness. The skin surface shows extensive ulceration. Also present in the container is a piece of soft tissue measuring 2.5 x 2 x 1 cm. No mass lesion is identified. [employer] sections are submitted in two cassettes. B - Received in fixative is one container labeled with the patient's name and designated bone left ischium. The specimen consists of multiple fragments of bone measuring in aggregate 2.5 x 2 x 0.3 cm. The entire specimen is submitted in one cassette after decalcification. C - Received in fixative is one container labeled with the patient's name and designated tissue right ischium. The specimen consists of three variable sized pieces of skin with underlying tissue measuring in aggregate 7 x 7 x 2 cm. The skin surface shows an area of ulceration. One of the pieces appear to be ring shaped. [employer] sections are submitted in two cassettes. D - Received in fixative is one container labeled with the patient's name and designated bone right ischium. The specimen consists of multiple fragments of bone measuring in aggregate 2 x 1.5 x 0.3 cm. The entire specimen is submitted in one cassette after decalcification. / SJ:rg 08/14/19 TC:2 CPT: 47550 x4, 11576 x2
--- NOTE | 2019-08-13 14:15 | PCA ---
PT OFF FLOOR
--- NOTE | 2019-08-13 15:51 | OP.PCM_ITS ---
Report of Operation Date of Procedure: 08/13/19 Pre-Operative Diagnosis: 1. Recurrent right ischial pressure sore, Stage IV. 2. 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 3. Osteomyelitis. 4. MRSA. 5. Necrotic left ischial pressure sore, Stage III. 6. History of anal CA treated with chemotherapy and radiation therapy. Post-Operative Diagnosis: 1. Recurrent right ischial pressure sore, Stage IV. 2. 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 3. Osteomyelitis. 4. MRSA. 5. Necrotic left ischial pressure sore, Stage IV. 6. History of anal CA treated with chemotherapy and radiation therapy. Surgery/Procedure Performed:: 1. Excision recurrent right ischial pressure sore, Stage IV, with partial ostectomy for osteomyelitis. 2. Excision necrotic left ischial pressure sore, Stage IV, with partial ostectomy for osteomyelitis. Description of Surgical Findings:: Patient is known to me. He underwent surgery on 02/11/19 where he underwent excision recurrent pressure sore right ischial area, Stage IV, with partial ostectomy for osteomyelitis. He has a history of radiation damage to the right ischial area secondary to treatment for anal cancer. [facility]. The goal was for wound closure with a myocutaneous flap. After his surgery in February, his mother and he was left living at home alone which was problematic since the wound was only redressed three times per week. He also developed depression from his mother's and spent a lot of time just sitting all day long. When he came to the [facility] yesterday, it was noted he had a new onset left ischial pressure sore with necrosis. He was then admitted to the hospital and Vancomycin and Zosyn antibiotics were started. Wound care was started with Dakin's dressings. I was asked to evaluate this patient for surgical options for treatment. His Hgb this morning was 7.8. His WBC was 10.1. Patient was informed of the risks and complications of the procedure including alternatives to surgery. These were discussed with the patient personally. Patient voices understanding and wishes to proceed. Size of defect right ischial area - 8.5 x 6 x 4 cm. Size of defect left ischial area - 7 x 6 x 3 cm. mold repair technician: None Type of Anesthesia:: General Specimen's removed: 1. Right ischial pressure sore soft tissue to Pathology and Microbiology. 2. Right ischial pressure sore bone to Pathology and Microbiology. 3. Left ischial pressure sore soft tissue to Pathology and Micr obiology. 4. Left ischial pressure sore bone to Pathology and Microbiology. Drains: None. Estimated Blood Loss (mL): 250 ml. Description of Procedure: Patient was taken to OR in supine position and placed under general anesthesia. He was then placed in the prone position and his ischial areas were prepped and draped in the usual fashion. SCD's were placed for DVT prophylaxis. Perioperative antibiotics were given intravenously. I excised the radiation pressure sore abscess ulcer right ischial area in a circular fashion down through the subcutaneous tissue and muscle which was indurated with fat necrosis and late effect radiation damage. No pus was seen. The indurated ulcer and abnormal bursal scar tissue were excised down to the bone. He has history of osteomyelitis, and I suspect persistent osteomyelitis. There was still a considerable amount of chronic radiated tissue damage deeply. After excising this radiated pressure sore ulcer down to the base, it had involved the ischial bone. The ischial bone was irregular in shape which can be consistent with osteomyelitis but also can be related to his radiation. A partial ostectomy was performed with an osteotome and a mallet in a tangential direction. The bony edges were smoothed out with a rasp. I also used rongeurs. After the partial ostectomy, the bone showed good bleeding. Hemostasis was obtained with electrocautery. The wound was irrigated with saline. The size of the defect after excision was 8.5 x 6 x 4 cm. The wound was packed with Mepitel nonadherent dressing followed by Kerlix gauze and Betadine followed by dry Kerlix gauze and ABD pads and tape for a compression dressing. Half the soft tissue and half the bone was sent to Pathology for analysis to rule out carcinoma and to evaluate for osteomyelitis. Half the soft tissue and half the bone was sent to Microbiology for culture. A positive culture may necessitate antibiotic modification. He is being treated perioperatively with Vancomycin and Zosyn. He has a new onset left ischial pressure sore that is necrotic. A lot of surrounding induration was noted as well. I excised the left necrotic pressure sore ulcer left ischial area in a circular fashion down through the subcutaneous tissue and muscle which was indurated with fat necrosis. No pus was seen. The indurated ulcer and abnormal bursal scar tissue were excised down to the bone. The ischial bone was irregular in shape which can be consistent with osteomyelitis. A partial ostectomy was performed with an osteotome and a mallet in a tangential direction. The bony edges were smoothed out with a rasp. I also used rongeurs. After the partial ostectomy, the bone showed good bleeding. Hemostasis was obtained with electrocautery. The wound was irrigated with saline. The size of the defect after excision was 7 x 6 x 3 cm. The wound was packed with Mepitel nonadherent dressing followed by Kerlix gauze and Betadine followed by dry Kerlix gauze and ABD pads and tape for a compression dressing. Half the soft tissue and half the bone was sent to Pathology for analysis to rule out carcinoma and to evaluate for osteomyelitis. Half the soft tissue and half the bone was sent to Microbiology for culture. A positive culture may necessitate antibiotic modification. Because the bone is involved, may plan on wound closure with a fasciocutaneous flap since a skin graft would not be indicated as long as the wound is not too deep. I don't want to detach the hamstrings muscle flap since the patient is ambulatory. Other muscle flap options include the vastus lateralis muscle flap and the gracilis muscle flap. Patient tolerated the procedure well and will be sent to PACU in satisfactory condition. He will be sent back upstairs for continued postop care. Tomorrow will change the ischial wound dressings with Dakin's. I anticipate the need for additional IV antibiotics and the use of a PICC line. He will need to go to an ECF for both the IV antibiotics and the wound care. Because he is ambulatory, we don't have a lot of choices for flaps short of using the microscope for free tissue transfer. Such procedures would need to be done at a tertiary center. Grafts/Implants Used: None. - Complications None. - Admit VTE Documentation VTE Present on Admission: No VTE Mechan Device Prophylaxis: SCD's VTE Pharm Prophylaxis ordered?: Yes Surgery Charges CPT - 51280 ICD-10 - L89.324, I96, M86.651, A49.02, Z85.048 [id number] L89.314, M86.651, T66.xxxS, L59.8, A49.02, Z85.048
--- NOTE | 2019-08-13 16:37 | PCA ---
PT OFF FLOOR
[2019-08-13] MEDS: Ipratropium/Albuterol Sulfate 3 ML AMPUL.NEB INHALATION (17:02)
--- NOTE | 2019-08-13 17:40 | PCA ---
PT OFF FLOOR
[2019-08-13] MEDS: Ferrous Gluconate 324 MG Tablet PO (18:44)
[2019-08-13] MEDS: Gabapentin 600 MG Tablet PO (18:44)
[2019-08-13] MEDS: buPROPion (XL) 300 MG TABLET.XL PO (18:46)
[2019-08-13] MEDS: DiphenhydrAMINE 50 MG/ML Syringe 25 MG IV (20:46)
[2019-08-13] MEDS: Doxazosin 1 MG Tablet 2 MG PO (22:41)
[2019-08-13] MEDS: Metoprolol Tartrate 50 MG Tablet PO (22:41)
[2019-08-14] VITALS (15 sets, daily range): BP systolic 109–122; BP diastolic 50–60; PULSE 60–89; RESP 16–20; TEMP 36.5–37.2; O2SAT 85–98; BMI 24.6
[2019-08-14 05:44] LABS: Hematocrit 25.3 % (40-54); Hemoglobin 7.2 g/dL (13.0-16.5); Mean Corp Hgb Conc 28.5 g/dL (32-36); Mean Corpuscular Hgb 23.2 pg (27.0-32.0); Mean Corpuscular Volume 81.6 fL (80-94); Mean Platelet Vol. 7.6 fl (6.2-12.0); Platelet Count 386 K/mm3 (150-450); RBC Distribution Width CV 19.1 % (11.6-14.6)
[2019-08-14] MEDS: busPIRone 5 MG Tablet PO ×3 (06:06→22:26)
[2019-08-14 06:07] LABS: Anion Gap 7 (5-15); BUN 14 mg/dL (7-18); BUN/Creat Ratio 19.1 RATIO (10-20); Calcium,Total 7.8 mg/dL (8.5-10.1); Chloride 106 mmol/L (98-107); Creatinine, Serum 0.73 mg/dL (0.70-1.30); EST Glomerular Filtration Rate 114 mL/min (>60); Est Glom Filt Rate - Afr Amer 138 mL/min (>60); Estimated Creatinine Clearance 94.32 ml/min; Glucose 75 mg/dL (74-106); Magnesium 2.1 mg/dL (1.6-2.6); Sodium Level 138 mmol/L (136-145)
[2019-08-14] MEDS: Ibuprofen 400 MG Tablet 800 MG PO ×3 (06:07→22:27)
[2019-08-14] MEDS: 0.9% Normal Saline 1,000 ML 100 ML IV (06:10)
[2019-08-14] MEDS: Ipratropium 0.5 MG/2.5 ML SOLUTION INHALATION ×2 (06:46→13:20)
--- NOTE | 2019-08-14 07:27 | PN_ITS ---
Patient Problems: Active and Suspected Problems Chronic osteomyelitis of right pelvic region (Acute) Pressure injury of right buttock, stage 2 (Acute) Right ischial pressure sore, stage 4 (Acute) Reason for Visit: Follow-up bilateral decubitus ulcers Subjective: Patient underwent Excision recurrent right ischial pressure sore, Stage IV, with partial ostectomy for osteomyelitis, Excision necrotic left ischial pressure sore, Stage IV, with partial ostectomy for osteomyelitis. Procedure performed by Dr. Mesa on 08/13/2019. Wound and blood cultures so far positive for MRSA. Patient on broad-spectrum antibiotic therapy. Consult was also placed to infectious disease the day prior. Objective: GENERAL: cooperative HEENT: Atraumatic; EYES; Anicteric, Normal Conjunctiva NECK; supple, normal thyroid, RESPIRATORY: Diminished to auscultation CARDIOVASCULAR: Regular S1 S2, GI: soft, normoactive bowel sounds, : No Renal angle tenderness; EXTREMITIES: No edema, no clubbing, MUSCULOSKELETAL: Bilateral stage IV decubitus ulcers NEURO: Awake; no lateralizing signs. SKIN: No Rash PSYCH; Flat affect Vitals/I&O's: Vital Signs Temp Pulse Resp BP Pulse Ox 98.4 F 60 16 109/50 L 94 08/14/19 02:25 08/14/19 02:25 08/14/19 02:25 08/14/19 02:25 08/14/19 02:30 Oxygen Flow Rate (L/min) 2.5 Oxygen Delivery Method Nasal Cannula Weight: 71.1 kg Body Mass Index (BMI) 24.5 Intake and Output for Last 24 Hours 08/12/19 08/13/19 08/14/19 23:59 23:59 23:59 Intake Total 695.25 / 695.25 5073.67 / 5273.67 1393.33 / 1393.33 Output Total 500 / 500 Balance 695.25 / 695.25 5073.67 / 4773.67 893.33 / 893.33 Microbiology Past 72 Hours 08/12/19 19:38 Blood Culture (Wb) - Anticubital Left Bacteria Detection (PCR) - Final Meth. resistant Staph. aureus 08/12/19 19:38 Blood Culture (Wb) - Anticubital Left Blood Culture - Preliminary Laboratory Results 08/13/19 08:22: Blood Type O POSITIVE, Antibody Screen NEGATIVE, Crossmatch See Detail 08/13/19 11:05: COVID-19 ([facility]) Not Detected 08/14/19 05:35: WBC 7.0, RBC 3.10 L, Hgb 7.2 L, Hct 25.3 L, MCV 81.6, MCH 23.2 L , MCHC 28.5 L, RDW Std Deviation 56.0 H, RDW Coeff of Rosendo 19.1 H, Plt Count 386, MPV 7.6 08/14/19 05:35: Sodium 138, Potassium 4.0, Chloride 106, Carbon Dioxide 25.0, Anion Gap 7, BUN 14, Creatinine 0.73, Estim Creat Clear Calc 94.32, Est GFR (MDRD) Af Amer 138, Est GFR (MDRD) Non-Af 114, BUN/Creatinine Ratio 19.1, Glucose 75, Calcium 7.8 L, Magnesium 2.1 Current Medications Amlodipine Besylate (Norvasc) 5 mg PO DAILY [facility] Last Admin: 08/13/19 11:09 Dose: Not Given Documented by: Ascorbic Acid (Vitamin C) 500 mg PO DAILY@0800 [facility] Last Admin: 08/13/19 08:43 Dose: Not Given Documented by: Bupropion HCl (Wellbutrin Xl) 300 mg PO QHS [facility] Last Admin: 08/13/19 20:26 Dose: Not Given Documented by: Buspirone HCl (Buspar) 5 mg PO TID [facility] Last Admin: 08/14/19 06:06 Dose: 5 mg Documented by: Cholecalciferol (Vitamin D (25mcg)) 1,000 unit PO DAILY [facility] Last Admin: 08/13/19 11:09 Dose: Not Given Documented by: Dextrose (D50w Syringe) 0 gm IV X1 PRN; Protocol PRN Reason: Hypoglycemia Diazepam (Valium) 5 mg PO 4X/DAY PRN PRN PRN Reason: SPASMS Diphenhydramine HCl (Benadryl) 25 mg IV Q6H PRN PRN PRN Reason: PRURITIS Last Admin: 08/13/19 20:46 Dose: 25 mg Documented by: Doxazosin Mesylate (Cardura) 2 mg PO QHS [facility] Last Admin: 08/13/19 22:41 Dose: 2 mg Documented by: Ezetimibe (Zetia) 10 mg PO DAILY [facility] Last Admin: 08/13/19 11:09 Dose: Not Given Documented by: Enoxaparin Sodium (Lovenox) 40 mg SC DAILY [facility] Last Admin: 08/13/19 09:06 Dose: Not Given Documented by: Escitalopram Oxalate (Lexapro) 10 mg PO DAILY [facility] Last Admin: 08/13/19 11:08 Dose: Not Given Documented by: Ferrous Gluconate (Ferrous Gluconate) 324 mg PO BIDCM [facility] Last Admin: 08/13/19 18:44 Dose: 324 mg Documented by: Fluticasone Propionate (Flonase Nasal [place]) 2 spray NASAL DAILY [facility] Last Admin: 08/13/19 09:05 Dose: 2 spray Documented by: Gabapentin (Neurontin) 600 mg PO TIDCM [facility] Last Admin: 08/13/19 18:44 Dose: 600 mg Documented by: Glucagon () 1 mg IM .X1 PRN PRN Reason: Hypoglycemia Hydromorphone HCl (Dilaudid Inj) 1 mg IV Q3H PRN PRN PRN Reason: Pain Score 6-10/10 Last Admin: 08/13/19 22:46 Dose: 1 mg Documented by: Sodium Chloride () 1,000 mls @ 100 mls/hr IV .Q10H [facility] Last Admin: 08/14/19 06:10 Dose: 100 mls/hr Documented by: Sodium Chloride () 250 mls @ 15 mls/hr IV .[id number] PRN PRN Reason: Saline Flush Last Infusion: 08/14/19 06:09 Dose: 0 mls/hr Documented by: Sodium Chloride () 250 mls @ 15 mls/hr IV .[id number] PRN PRN Reason: Additional IVPB Infusion Vancomycin IV Pharmacy to Dose (1 ea/ Sodium Chloride) 500 mls @ 250 mls/hr IV PRN PRN; Protocol PRN Reason: Rx to Dose Piperacillin Sod/Tazobactam (Sod 3.375 gm/ Sodium Chloride) 50 mls @ 12.5 mls/hr IV Q8 [facility] Last Admin: 08/14/19 06:09 Dose: 12.5 mls/hr Documented by: Vancomycin HCl 1,500 mg/ (Sodium Chloride) 530 mls @ 250 mls/hr IV Q12H [facility] Last Infusion: 08/14/19 00:18 Dose: Infused Documented by: Ibuprofen (Motrin) 800 mg PO TID [facility] Last Admin: 08/14/19 06:07 Dose: 800 mg Documented by: Ipratropium [place] (Atrovent) 0.5 mg INHALATION Q6HWA.RT [facility] Last Admin: 08/14/19 06:46 Dose: 0.5 mg Documented by: Metoprolol Tartrate (Lopressor (Beta Joo)) 50 mg PO BID [facility] Last Admin: 08/13/19 22:41 Dose: 50 mg Documented by: Multivitamins (Multivitamin) 1 tablet PO DAILY@0800 [facility] Last Admin: 08/13/19 08:42 Dose: Not Given Documented by: Ondansetron HCl (Zofran) 4 mg IV Q8H PRN PRN PRN Reason: NAUSEA/VOMITING Pantoprazole Sodium (Protonix) 40 mg PO DAILY [facility] Last Admin: 08/13/19 11:09 Dose: Not Given Documented by: Sodium Chloride () 10 - 40 ml IV UD PRN PRN Reason: SALINE FLUSH Last Admin: 08/13/19 22:46 Dose: 10 ml Documented by: Sodium Hypochlorite (Dakins Solution 0.25% (1/2 Strength)) 1 applic TOPICAL BID [facility]; Protocol Medical Necessity - Tobacco Use Smoking Status: Former smoker Assessment/Plan All Active Problems Candidal skin infection (Acute) Pressure sore of left ischium, stage 2 (Acute) Chronic osteomyelitis of right pelvic region (Acute) Infection and inflammatory reaction due to internal left knee prosthesis, initial encounter (Acute) Pressure injury of right buttock, stage 2 (Acute) Skin ulcer of left thigh with fat layer exposed (Acute) MRSA bacteremia (Acute) Pneumonia (Acute) SBO (small bowel obstruction) (Acute) Hypotension (Acute) Right ischial pressure sore, stage 4 (Acute) Hyponatremia (Acute) Patient is a 64-year-old gentleman with chronic osteomyelitis and decubitus ulcer involving the right buttocks who presented to the emergency department with right hip pain 1. Chronic osteomyelitis and pressure ulcer right buttock -CT obtained on admission demonstrated Large deep decubitus ulcer posterior to the right ischial tuberosity with associated sclerosis and osseous fragmentation and erosion, increased in extent and severity in the interval. Admitted to the regular nursing floor with consultation placed to plastic surgery for debridement. Patient was started on broad-spectrum antibiotic consultation placed infectious disease ?08/14/2019Patient underwent Excision recurrent right ischial pressure sore, Stage IV, with partial ostectomy for osteomyelitis, Excision necrotic left ischial pressure sore, Stage IV, with partial ostectomy for osteomyelitis. Procedure performed by Dr. Mesa on 08/13/2019. Wound and blood cultures so far positive for MRSA. Patient on broad-spectrum antibiotic therapy. Consult was also placed to infectious disease the day prior. 2. Hypertension - Blood pressure controlled, home medications continued with dose adjustment as needed 3. GERD ?On PPI 4. COPD ?Not in exacerbation 5. Depression with anxiety - Patient is on Wellbutrin acceptable continue 6. Dyslipidemia ?Patient on Zetia 7. Anemia ?Secondary to anemia of chronic disorder monitoring H&H with plan to transfuse if patient becomes symptomatic or hemoglobin falls below 7 -08/14/2019 patient hemoglobin dropped to 7.2. Patient was deemed to be symptomatic and ended up being transfused with PRBC 8. DVT prophylaxis - On enoxaparin Active Medications Amlodipine Besylate (Norvasc) 5 mg PO DAILY [facility] Ascorbic Acid (Vitamin C) 500 mg PO DAILY@0800 [facility] Bupropion HCl (Wellbutrin Xl) 300 mg PO QHS [facility] Last Admin: 08/12/19 21:15 Dose: 300 mg Documented by: Buspirone HCl (Buspar) 5 mg PO TID [facility] Last Admin: 08/13/19 06:12 Dose: 5 mg Documented by: Cholecalciferol (Vitamin D (25mcg)) 1,000 unit PO DAILY [facility] Dextrose (D50w Syringe) 0 gm IV X1 PRN; Protocol PRN Reason: Hypoglycemia Diazepam (Valium) 5 mg PO 4X/DAY PRN PRN PRN Reason: SPASMS Doxazosin Mesylate (Cardura) 2 mg PO QHS [facility] Last Admin: 08/12/19 21:13 Dose: 2 mg Documented by: Ezetimibe (Zetia) 10 mg PO DAILY [facility] Enoxaparin Sodium (Lovenox) 40 mg SC DAILY [facility] Escitalopram Oxalate (Lexapro) 10 mg PO DAILY [facility] Ferrous Gluconate (Ferrous Gluconate) 324 mg PO BIDCM [facility] Fluticasone Propionate (Flonase Nasal [place]) 2 spray NASAL DAILY [facility] Gabapentin (Neurontin) 600 mg PO TIDCM [facility] Glucagon () 1 mg IM .X1 PRN PRN Reason: Hypoglycemia Hydromorphone HCl (Dilaudid Inj) 1 mg IV Q3H PRN PRN PRN Reason: Pain Score 6-10/10 Last Admin: 08/13/19 06:11 Dose: 1 mg Documented by: Sodium Chloride () 1,000 mls @ 100 mls/hr IV .Q10H [facility] Last Admin: 08/13/19 06:12 Dose: 100 mls/hr Documented by: Sodium Chloride () 250 mls @ 15 mls/hr IV .[id number] PRN PRN Reason: Saline Flush Last Admin: 08/13/19 06:13 Dose: 15 mls/hr Documented by: Sodium Chloride () 250 mls @ 15 mls/hr IV .[id number] PRN PRN Reason: Additional IVPB Infusion Ibuprofen (Motrin) 800 mg PO TID [facility] Last Admin: 08/13/19 06:12 Dose: 800 mg Documented by: Ipratropium [place] (Atrovent) 0.5 mg INHALATION Q6HWA.RT [facility] Last Admin: 08/13/19 07:19 Dose: 0.5 mg Documented by: Metoprolol Tartrate (Lopressor (Beta Joo)) 50 mg PO BID [facility] Last Admin: 08/12/19 21:13 Dose: 50 mg Documented by: Multivitamins (Multivitamin) 1 tablet PO DAILY@0800 [facility] Ondansetron HCl (Zofran) 4 mg IV Q8H PRN PRN PRN Reason: NAUSEA/VOMITING Pantoprazole Sodium (Protonix) 40 mg PO DAILY [facility] Sodium Chloride () 10 - 40 ml IV UD PRN PRN Reason: SALINE FLUSH Last Admin: 08/13/19 03:06 Dose: 10 ml Documented by: Clinical Impression(s) from Imaging Studies Pelvis CT 08/12/19 16:46 IMPRESSION: 1. Large deep decubitus ulcer posterior to the right ischial tuberosity with associated sclerosis and osseous fragmentation and erosion, increased in extent and severity in the interval. 2. There is demonstrated at this time fragmentation of the superolateral right acetabular rim raising the suspicion of osteomyelitis. 3. There is a deep soft tissue low attenuation region with several punctate air densities anterior to the right hip measuring 5.6 x 4.0 x 6.4 cm suggestive of phlegmon. This is in a region of previous surgery. There is edema of soft tissue fat posterior to this area. Electronically Signed: Anmol Simpson MD at 18:32 EDT , Service support , Inpatient E&M: [id number] Subs Hosp L3
[2019-08-14] MEDS: HYDROmorphone 1 MG/ML Syringe IV ×4 (08:12→23:47)
[2019-08-14] MEDS: DiphenhydrAMINE 50 MG/ML Syringe 25 MG IV (08:14)
[2019-08-14] MEDS: 0.9% Saline Lock 10 ML Syringe IV ×4 (08:15→23:47)
[2019-08-14] MEDS: DAKIN'S SOL HALF STRENGTH (=0.25%) 1 APPLIC TOPICAL ×2 (08:22→22:29)
--- NOTE | 2019-08-14 08:56 | NURSING ---
wound photo: bilateral ischial wounds
--- NOTE | 2019-08-14 08:57 | NURSING ---
wound photo: left ischium
--- NOTE | 2019-08-14 08:57 | NURSING ---
wound photo: right ischium
[2019-08-14 09:45] LABS: Vancomycin, Trough Level 22.4 ug/mL (5.0-15.0)
[2019-08-14] MEDS: Ferrous Gluconate 324 MG Tablet PO ×2 (09:50→17:19)
[2019-08-14] MEDS: Ascorbic Acid 500 MG Tablet PO (09:51)
[2019-08-14] MEDS: Gabapentin 600 MG Tablet PO ×3 (09:51→17:19)
[2019-08-14] MEDS: Pantoprazole Sodium 40 MG Tablet PO (09:51)
[2019-08-14] MEDS: Multivitamins,Therapeutic Tablet 1 TABLET PO (09:51)
[2019-08-14] MEDS: amLODIPine 5 MG Tablet PO (09:51)
[2019-08-14] MEDS: Escitalopram Oxalate 10 MG Tablet PO (09:51)
[2019-08-14] MEDS: Ezetimibe 10 MG Tablet PO (09:52)
[2019-08-14] MEDS: Enoxaparin 40 MG/0.4 ML Syringe SC (09:52)
[2019-08-14] MEDS: Metoprolol Tartrate 50 MG Tablet PO ×2 (09:54→22:26)
[2019-08-14] MEDS: Fluticasone 0.05% 1 SPRAY NASAL.SRY 2 SPRAY NASAL (09:55)
--- NOTE | 2019-08-14 10:56 | PCM.RX.CS ---
Consult Pharmacy has been consulted to manage selected antiobiotic: Vancomycin Type of Consult: Follow-up Suspected Infection: Osteomyelitis, Bacteremia Prior Doses of Antibiotics Received/Current Regimen: 1500MG IV Q12H Labs: Sodium 138 mmol/L (136-145) 08/14/19 05:35 Potassium 4.0 mmol/L (3.5-5.1) 08/14/19 05:35 Chloride 106 mmol/L (98-107) 08/14/19 05:35 Carbon Dioxide 25.0 mmol/L (21.0-32.0) 08/14/19 05:35 Anion Gap 7 (5-15) 08/14/19 05:35 BUN 14 mg/dL (7-18) 08/14/19 05:35 Creatinine 0.73 mg/dL (0.70-1.30) 08/14/19 05:35 Est GFR (MDRD) Af Amer 138 mL/min (>60) 08/14/19 05:35 Est GFR (MDRD) Non-Af 114 mL/min (>60) 08/14/19 05:35 BUN/Creatinine Ratio 19.1 RATIO (10-20) 08/14/19 05:35 Glucose 75 mg/dL (74-106) 08/14/19 05:35 Vancomycin Trough 22.4 ug/mL (5.0-15.0) H 08/14/19 09:08 Microbiology: Microbiology 08/12/19 19:38 Blood Culture (Wb) - Anticubital Left Bacteria Detection (PCR) - Final Meth. resistant Staph. aureus 08/12/19 19:38 Blood Culture (Wb) - Anticubital Left Blood Culture - Preliminary Staphylococcus aureus Weight used for dosin kg Estimated Creatinine Clearance: ~94ML/MIN Goal Trough: 15-20 mcg/mL Pharmacy Plan for Drug Dosing: Trough level today 22.4 (goal 15-20). Renal function reviewed and about same. Hold AM dose and will change dose to 1250mg iv q12h starting 2200 6.3.20. New trough ordered for 6.5.20 before 4th dose of new regimen. Pharmacy Service will continue to monitor and adjust dosing as required. Follow-Up Labs: Trough Vancomycin - 6.5.20 @0930 before 1000 dose
--- NOTE | 2019-08-14 12:20 | PN.SURG_ITS ---
Patient Problems: Active and Suspected Problems Chronic osteomyelitis of right pelvic region (Acute) Pressure injury of right buttock, stage 2 (Acute) Right ischial pressure sore, stage 4 (Acute) Subjective: Post op day #1 States pain is well controlled. Denies any complaints of fever, chills, n/v/d. Objective: Patient sitting bed. - Physical Exam Vitals/I&O's: Vital Signs Temp Pulse Resp BP Pulse Ox 98.9 F 78 20 H 112/57 L 95 08/14/19 08:15 08/14/19 13:20 08/14/19 13:20 08/14/19 08:15 08/14/19 08:15 Oxygen Flow Rate (L/min) 2.5 Oxygen Delivery Method Nasal Cannula Weight: 156 lb 11.979 oz Body Mass Index (BMI) 24.5 Intake and Output for Last 24 Hours 08/12/19 08/13/19 08/14/19 23:59 23:59 23:59 Intake Total 695.25 / 695.25 5073.67 / 5273.67 2183.25 / 2183.25 Output Total 1500 / 1500 Balance 695.25 / 695.25 5073.67 / 4773.67 683.25 / 683.25 General: Alert, Cooperative, No apparent distress HEENT: Atraumatic Oral: Moist Mucosa Lungs: Clear to auscultation, Normal air movement Cardiovascular: Regular rate, Regular Rhythm Abdomen: Bowel Sounds Present, Soft, Non Tender Extremities: No edema, Capillary Refill Less than 3 Seconds Skin: Ulcer/ Wound - Bilateral ischial ulcer dressings dry and intact and recently been changed with Dakin's moistened gauze. No signs of active bleeding. Musculoskeletal: No Tenderness to Palpation of Joints or Extremities Neurological: Neuro grossly intact Psych/Mental Status: Appropriate Microbiology Past 72 Hours 08/13/19 15:28 Bone - Other Gram Stain - Final 08/13/19 15:28 Bone - Other Wound Culture - Preliminary Staphylococcus aureus 08/13/19 15:28 Tissue - Other Gram Stain - Final 08/13/19 15:28 Tissue - Other Wound Culture - Preliminary Staphylococcus aureus 08/13/19 15:28 Bone - Other Gram Stain - Final 08/13/19 15:28 Bone - Other Wound Culture - Preliminary Staphylococcus species 08/13/19 15:28 Tissue - Other Gram Stain - Final 08/13/19 15:28 Tissue - Other Wound Culture - Preliminary Staphylococcus species 08/12/19 19:38 Blood Culture (Wb) - Anticubital Left Bacteria Detection (PCR) - Final Meth. resistant Staph. aureus 08/12/19 19:38 Blood Culture (Wb) - Anticubital Left Blood Culture - Preliminary Staphylococcus aureus Laboratory Results 08/14/19 05:35: WBC 7.0, RBC 3.10 L, Hgb 7.2 L, Hct 25.3 L, MCV 81.6, MCH 23.2 L , MCHC 28.5 L, RDW Std Deviation 56.0 H, RDW Coeff of Rosendo 19.1 H, Plt Count 386, MPV 7.6 08/14/19 05:35: Sodium 138, Potassium 4.0, Chloride 106, Carbon Dioxide 25.0, Anion Gap 7, BUN 14, Creatinine 0.73, Estim Creat Clear Calc 94.32, Est GFR (MDRD) Af Amer 138, Est GFR (MDRD) Non-Af 114, BUN/Creatinine Ratio 19.1, Glucose 75, Calcium 7.8 L, Magnesium 2.1 08/14/19 09:08: Vancomycin Trough 22.4 H Current Medications Amlodipine Besylate (Norvasc) 5 mg PO DAILY [facility] Last Admin: 08/14/19 09:51 Dose: 5 mg Documented by: Ascorbic Acid (Vitamin C) 500 mg PO DAILY@0800 [facility] Last Admin: 08/14/19 09:51 Dose: 500 mg Documented by: Bupropion HCl (Wellbutrin Xl) 300 mg PO QHS [facility] Last Admin: 08/13/19 20:26 Dose: Not Given Documented by: Buspirone HCl (Buspar) 5 mg PO TID [facility] Last Admin: 08/14/19 14:52 Dose: 5 mg Documented by: Cholecalciferol (Vitamin D (25mcg)) 1,000 unit PO DAILY [facility] Last Admin: 08/14/19 09:52 Dose: 1,000 unit Documented by: Dextrose (D50w Syringe) 0 gm IV X1 PRN; Protocol PRN Reason: Hypoglycemia Diazepam (Valium) 5 mg PO 4X/DAY PRN PRN PRN Reason: SPASMS Diphenhydramine HCl (Benadryl) 25 mg IV Q6H PRN PRN PRN Reason: PRURITIS Last Admin: 08/14/19 08:14 Dose: 25 mg Documented by: Doxazosin Mesylate (Cardura) 2 mg PO QHS [facility] Last Admin: 08/13/19 22:41 Dose: 2 mg Documented by: Ezetimibe (Zetia) 10 mg PO DAILY [facility] Last Admin: 08/14/19 09:52 Dose: 10 mg Documented by: Enoxaparin Sodium (Lovenox) 40 mg SC DAILY [facility] Last Admin: 08/14/19 09:52 Dose: 40 mg Documented by: Escitalopram Oxalate (Lexapro) 10 mg PO DAILY [facility] Last Admin: 08/14/19 09:51 Dose: 10 mg Documented by: Ferrous Gluconate (Ferrous Gluconate) 324 mg PO BIDCM [facility] Last Admin: 08/14/19 17:19 Dose: 324 mg Documented by: Fluticasone Propionate (Flonase Nasal [place]) 2 spray NASAL DAILY [facility] Last Admin: 08/14/19 09:55 Dose: 2 spray Documented by: Gabapentin (Neurontin) 600 mg PO TIDCM [facility] Last Admin: 08/14/19 17:19 Dose: 600 mg Documented by: Glucagon () 1 mg IM .X1 PRN PRN Reason: Hypoglycemia Hydromorphone HCl (Dilaudid Inj) 1 mg IV Q3H PRN PRN PRN Reason: Pain Score 6-10/10 Last Admin: 08/14/19 14:52 Dose: 1 mg Documented by: Sodium Chloride () 1,000 mls @ 30 mls/hr IV .[id number] [facility] Last Infusion: 08/14/19 08:50 Dose: 30 mls/hr Documented by: Sodium Chloride () 250 mls @ 15 mls/hr IV .[id number] PRN PRN Reason: Saline Flush Last Infusion: 08/14/19 15:02 Dose: 0 mls/hr Documented by: Sodium Chloride () 250 mls @ 15 mls/hr IV .[id number] PRN PRN Reason: Additional IVPB Infusion Vancomycin IV Pharmacy to Dose (1 ea/ Sodium Chloride) 500 mls @ 250 mls/hr IV PRN PRN; Protocol PRN Reason: Rx to Dose Piperacillin Sod/Tazobactam (Sod 3.375 gm/ Sodium Chloride) 50 mls @ 12.5 mls/hr IV Q8 [facility] Last Admin: 08/14/19 14:53 Dose: 12.5 mls/hr Documented by: Vancomycin HCl 1,250 mg/ (Sodium Chloride) 275 mls @ 167 mls/hr IV Q12H [facility] Ibuprofen (Motrin) 800 mg PO TID [facility] Last Admin: 08/14/19 14:52 Dose: 800 mg Documented by: Ipratropium [place] (Atrovent) 0.5 mg INHALATION Q6HWA.RT [facility] Last Admin: 08/14/19 13:20 Dose: 0.5 mg Documented by: Metoprolol Tartrate (Lopressor (Beta Joo)) 50 mg PO BID [facility] Last Admin: 08/14/19 09:54 Dose: 50 mg Documented by: Multivitamins (Multivitamin) 1 tablet PO DAILY@0800 [facility] Last Admin: 08/14/19 09:51 Dose: 1 tablet Documented by: Ondansetron HCl (Zofran) 4 mg IV Q8H PRN PRN PRN Reason: NAUSEA/VOMITING Pantoprazole Sodium (Protonix) 40 mg PO DAILY [facility] Last Admin: 08/14/19 09:51 Dose: 40 mg Documented by: Sodium Chloride () 10 - 40 ml IV UD PRN PRN Reason: SALINE FLUSH Last Admin: 08/14/19 14:52 Dose: 10 ml Documented by: Sodium Hypochlorite (Dakins Solution 0.25% (1/2 Strength)) 1 applic TOPICAL BID [facility]; Protocol Last Admin: 08/14/19 08:22 Dose: 1 applicatio Documented by: Medical Necessity - Tobacco Use Smoking Status: Former smoker Assessment/Plan All Active Problems Candidal skin infection (Acute) Pressure sore of left ischium, stage 2 (Acute) Chronic osteomyelitis of right pelvic region (Acute) Infection and inflammatory reaction due to internal left knee prosthesis, initial encounter (Acute) Pressure injury of right buttock, stage 2 (Acute) Skin ulcer of left thigh with fat layer exposed (Acute) MRSA bacteremia (Acute) Pneumonia (Acute) SBO (small bowel obstruction) (Acute) Hypotension (Acute) Right ischial pressure sore, stage 4 (Acute) Hyponatremia (Acute) 1. Recurrent right ischial pressure sore, Stage IV 2. 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 3. Osteomyelitis 4. MRSA 5. Necrotic left ischial pressure sore, Stage IV 6. History of anal CA treatment with chemotherapy and radiation therapy. Surgery on 08/13/19 Excision recurrent right ischial pressure sore, Stage IV, with partial ostectomy of osteomyelitis. -Bilateral Ischial ulcers are stable. No active bleeding. Daily Dakin's moistened gauze dressing changes. -Preliminary surgical wound culture from 08/13/19 right ischium ulcer is positive for Staphylococcus aureus. Preliminary culture of left ischium is Staphylococcus aureus. -He is on Zosyn and Vancomycin. Dr. Escamilla from [place] is consulted -Hgb 7.2, Hct 25.3 will monitor closely. Patient not symptomatic. Medicine is also following.
--- NOTE | 2019-08-14 14:15 | ECHOD_ITS ---
Reason For Study: Murmur Procedure This was a 2D Doppler, Color Flow transthoracic echocardiogram. Patient scanned supine. Exam performed portable in patient room. Left Ventricle Normal size and thickness. The estimated ejection fraction is 65 %. Stage 2 diastolic dysfunction. No regional wall motion abnormalities noted. Right Ventricle Mildly dilated right ventricle. Normal systolic function. Atria Normal left atrium. Normal right atrium. Normal atrial septum. Mitral Valve The mitral valve is structurally normal. No prolapse or stenosis seen. Trivial mitral valve insufficiency. Tricuspid Valve Normal tricuspid valve. Trivial tricuspid valve insufficiency. Right ventricular systolic pressure estimated to be 40 mmHg. Mild pulmonary hypertension. Aortic Valve Trisinus/trileaflet aortic valve. Mild focal aortic valve thickening. There is no aortic stenosis. Pulmonic Valve Normal pulmonic valve. Great Vessels Normal aortic root. Normal arch. Normal inferior vena cava. Inferior vena cava collapse with sniff. Pericardium/Pleural No pericardial effusion. MMode/2D Measurements & Calculations LVIDd: 4.3 cm IVSd: 1.3 cm LA dimension: 3.4 cm LVIDs: 3.4 cm LVPWd: 1.1 cm RVDd: 3.6 cm FS: 22.5 % LAV(MOD-bp): 65.2 ml LA A4 area: 19.9 cm2 RA A4 area: 11.7 cm2 LAV(MOD-bp) Indexed: 35.9 ml/m2 LAV(MOD-sp2): 69.4 ml LAV(MOD-sp4): 61.2 ml Time Measurements MV dec time: 0.22 sec Doppler Measurements & Calculations MV E max chas: 107.8 cm/sec Lat Peak E' Chas: 13.5 cm/sec Med Peak E' Chas: 9.7 cm/sec MV A max chas: 79.6 cm/sec E/E' lat: 8.0 E/E' med: 11.1 MV E/A: 1.4 MV V2 max: 110.7 cm/sec MV P1/2t max chas: 112.7 cm/sec Ao V2 max: 176.8 cm/sec MV max P.9 mmHg MV P1/2t: 109.7 msec Ao max P.5 mmHg MV V2 mean: 66.7 cm/sec MV dec slope: 300.9 cm/sec2 Ao V2 mean: 114.0 cm/sec MV mean P.0 mmHg MVA(P1/2t): 2.0 cm2 Ao mean P.0 mmHg MV V2 VTI: 38.9 cm Ao V2 VTI: 34.8 cm LV V1 max: 140.9 cm/sec MR max chas: 444.7 cm/sec PA V2 max: 100.2 cm/sec LV V1 max P.9 mmHg MR max P.1 mmHg LV V1 mean P.2 mmHg MR mean chas: 336.6 cm/sec LV V1 mean: 81.3 cm/sec MR mean P.3 mmHg LV V1 VTI: 28.5 cm MR VTI: 148.5 cm TR max chas: 296.0 cm/sec TR max P.0 mmHg Interpretation Summary The estimated ejection fraction is 65 %. Stage 2 diastolic dysfunction. Mildly dilated right ventricle. Trivial mitral valve insufficiency. Trivial tricuspid valve insufficiency. Right ventricular systolic pressure estimated to be 40 mmHg. Mild pulmonary hypertension. Compared to echo report dated , LV function has remained the same, RVSP not noted at that time. Ordering Physician: Javier Escamilla Performed By: Chance King RCS
--- NOTE | 2019-08-14 16:51 | PCM.PN.ID ---
Patient Problems: Active and Suspected Problems Chronic osteomyelitis of right pelvic region (Acute) Pressure injury of right buttock, stage 2 (Acute) Right ischial pressure sore, stage 4 (Acute) Subjective: Feeling ok, no fever, no n/v/d - Physical Exam Vitals/I&O's: Vital Signs Temp Pulse Resp BP Pulse Ox 98.9 F 78 20 H 112/57 L 95 08/14/19 08:15 08/14/19 13:20 08/14/19 13:20 08/14/19 08:15 08/14/19 08:15 Oxygen Flow Rate (L/min) 2.5 Oxygen Delivery Method Nasal Cannula Weight: 71.1 kg Body Mass Index (BMI) 24.5 Intake and Output for Last 24 Hours 08/12/19 08/13/19 08/14/19 23:59 23:59 23:59 Intake Total 695.25 / 695.25 5073.67 / 5273.67 2183.25 / 2183.25 Output Total 1500 / 1500 Balance 695.25 / 695.25 5073.67 / 4773.67 683.25 / 683.25 General: Alert, Cooperative, No apparent distress Lungs: Clear to auscultation, Normal air movement Cardiovascular: Regular rate, Regular Rhythm, Murmur Abdomen: Soft, Non Tender, Non-Distended Skin: Incision - surg site bandaged Microbiology Past 72 Hours 08/13/19 15:28 Bone - Other Gram Stain - Final 08/13/19 15:28 Bone - Other Wound Culture - Preliminary Staphylococcus aureus 08/13/19 15:28 Tissue - Other Gram Stain - Final 08/13/19 15:28 Tissue - Other Wound Culture - Preliminary Staphylococcus aureus 08/13/19 15:28 Bone - Other Gram Stain - Final 08/13/19 15:28 Bone - Other Wound Culture - Preliminary Staphylococcus species 08/13/19 15:28 Tissue - Other Gram Stain - Final 08/13/19 15:28 Tissue - Other Wound Culture - Preliminary Staphylococcus species 08/12/19 19:38 Blood Culture (Wb) - Anticubital Left Bacteria Detection (PCR) - Final Meth. resistant Staph. aureus 08/12/19 19:38 Blood Culture (Wb) - Anticubital Left Blood Culture - Preliminary Staphylococcus aureus Laboratory Results 08/13/19 08:22: Crossmatch See Detail 08/14/19 05:35: WBC 7.0, RBC 3.10 L, Hgb 7.2 L, Hct 25.3 L, MCV 81.6, MCH 23.2 L, MCHC 28.5 L, RDW Std Deviation 56.0 H, RDW Coeff of Rosendo 19.1 H, Plt Count 386, MPV 7.6 08/14/19 05:35: Sodium 138, Potassium 4.0, Chloride 106, Carbon Dioxide 25.0, Anion Gap 7, BUN 14, Creatinine 0.73, Estim Creat Clear Calc 94.32, Est GFR (MDRD) Af Amer 138, Est GFR (MDRD) Non-Af 114, BUN/Creatinine Ratio 19.1, Glucose 75, Calcium 7.8 L, Magnesium 2.1 08/14/19 09:08: Vancomycin Trough 22.4 H Current Medications Amlodipine Besylate (Norvasc) 5 mg PO DAILY [facility] Last Admin: 08/14/19 09:51 Dose: 5 mg Documented by: Ascorbic Acid (Vitamin C) 500 mg PO DAILY@0800 [facility] Last Admin: 08/14/19 09:51 Dose: 500 mg Documented by: Bupropion HCl (Wellbutrin Xl) 300 mg PO QHS [facility] Last Admin: 08/13/19 20:26 Dose: Not Given Documented by: Buspirone HCl (Buspar) 5 mg PO TID [facility] Last Admin: 08/14/19 14:52 Dose: 5 mg Documented by: Cholecalciferol (Vitamin D (25mcg)) 1,000 unit PO DAILY [facility] Last Admin: 08/14/19 09:52 Dose: 1,000 unit Documented by: Dextrose (D50w Syringe) 0 gm IV X1 PRN; Protocol PRN Reason: Hypoglycemia Diazepam (Valium) 5 mg PO 4X/DAY PRN PRN PRN Reason: SPASMS Diphenhydramine HCl (Benadryl) 25 mg IV Q6H PRN PRN PRN Reason: PRURITIS Last Admin: 08/14/19 08:14 Dose: 25 mg Documented by: Doxazosin Mesylate (Cardura) 2 mg PO QHS [facility] Last Admin: 08/13/19 22:41 Dose: 2 mg Documented by: Ezetimibe (Zetia) 10 mg PO DAILY [facility] Last Admin: 08/14/19 09:52 Dose: 10 mg Documented by: Enoxaparin Sodium (Lovenox) 40 mg SC DAILY [facility] Last Admin: 08/14/19 09:52 Dose: 40 mg Documented by: Escitalopram Oxalate (Lexapro) 10 mg PO DAILY [facility] Last Admin: 08/14/19 09:51 Dose: 10 mg Documented by: Ferrous Gluconate (Ferrous Gluconate) 324 mg PO BIDCM [facility] Last Admin: 08/14/19 09:50 Dose: 324 mg Documented by: Fluticasone Propionate (Flonase Nasal [place]) 2 spray NASAL DAILY [facility] Last Admin: 08/14/19 09:55 Dose: 2 spray Documented by: Gabapentin (Neurontin) 600 mg PO TIDCM [facility] Last Admin: 08/14/19 12:32 Dose: 600 mg Documented by: Glucagon () 1 mg IM .X1 PRN PRN Reason: Hypoglycemia Hydromorphone HCl (Dilaudid Inj) 1 mg IV Q3H PRN PRN PRN Reason: Pain Score 6-10/10 Last Admin: 08/14/19 14:52 Dose: 1 mg Documented by: Sodium Chloride () 1,000 mls @ 30 mls/hr IV .[id number] [facility] Last Infusion: 08/14/19 08:50 Dose: 30 mls/hr Documented by: Sodium Chloride () 250 mls @ 15 mls/hr IV .[id number] PRN PRN Reason: Saline Flush Last Infusion: 08/14/19 15:02 Dose: 0 mls/hr Documented by: Sodium Chloride () 250 mls @ 15 mls/hr IV .[id number] PRN PRN Reason: Additional IVPB Infusion Vancomycin IV Pharmacy to Dose (1 ea/ Sodium Chloride) 500 mls @ 250 mls/hr IV PRN PRN; Protocol PRN Reason: Rx to Dose Piperacillin Sod/Tazobactam (Sod 3.375 gm/ Sodium Chloride) 50 mls @ 12.5 mls/hr IV Q8 [facility] Last Admin: 08/14/19 14:53 Dose: 12.5 mls/hr Documented by: Vancomycin HCl 1,250 mg/ (Sodium Chloride) 275 mls @ 167 mls/hr IV Q12H [facility] Ibuprofen (Motrin) 800 mg PO TID [facility] Last Admin: 06/03/20 14:52 Dose: 800 mg Documented by: Ipratropium Closplint (Atrovent) 0.5 mg INHALATION Q6HWA.RT [facility] Last Admin: 08/14/19 13:20 Dose: 0.5 mg Documented by: Metoprolol Tartrate (Lopressor (Beta Joo)) 50 mg PO BID [facility] Last Admin: 08/14/19 09:54 Dose: 50 mg Documented by: Multivitamins (Multivitamin) 1 tablet PO DAILY@0800 [facility] Last Admin: 08/14/19 09:51 Dose: 1 tablet Documented by: Ondansetron HCl (Zofran) 4 mg IV Q8H PRN PRN PRN Reason: NAUSEA/VOMITING Pantoprazole Sodium (Protonix) 40 mg PO DAILY [facility] Last Admin: 08/14/19 09:51 Dose: 40 mg Documented by: Sodium Chloride () 10 - 40 ml IV UD PRN PRN Reason: SALINE FLUSH Last Admin: 08/14/19 14:52 Dose: 10 ml Documented by: Sodium Hypochlorite (Dakins Solution 0.25% (1/2 Strength)) 1 applic TOPICAL BID [facility]; Protocol Last Admin: 08/14/19 08:22 Dose: 1 applicatio Documented by: Medical Necessity - Tobacco Use Smoking Status: Former smoker Route of nutrition/ use of supplements: [] Nutritional Intake: [] IV Site: [] Walker Catheter: [] - Assessment/Plan Antibiotics: [] Assessment/Plan: [] Active and Suspected Problems Chronic osteomyelitis of right pelvic region (Acute) Pressure injury of right buttock, stage 2 (Acute) Right ischial pressure sore, 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 Mesa. Prior cxs with MRSA, PsA, proteus, corynebacteria. Cont vanc/zosyn. COVID neg. Will repeat bcx and check echo. Will follow
[2019-08-14] MEDS: Doxazosin 1 MG Tablet 2 MG PO (22:35)
[2019-08-14] MEDS: buPROPion (XL) 300 MG TABLET.XL PO (22:35)
[2019-08-15] VITALS (9 sets, daily range): BP systolic 109–153; BP diastolic 49–64; PULSE 63–74; RESP 16–20; TEMP 36.7–37.2; O2SAT 85–97
[2019-08-15] MEDS: HYDROmorphone 1 MG/ML Syringe IV ×4 (05:49→22:05)
[2019-08-15] MEDS: busPIRone 5 MG Tablet PO ×3 (05:49→22:15)
[2019-08-15] MEDS: Ibuprofen 400 MG Tablet 800 MG PO ×3 (05:49→22:15)
[2019-08-15 06:19] LABS: Hematocrit 26.1 % (40-54); Hemoglobin 7.8 g/dL (13.0-16.5); Mean Corp Hgb Conc 29.9 g/dL (32-36); Mean Corpuscular Hgb 24.1 pg (27.0-32.0); Mean Corpuscular Volume 80.6 fL (80-94); Mean Platelet Vol. 7.8 fl (6.2-12.0); Platelet Count 421 K/mm3 (150-450); RBC Distribution Width CV 19.2 % (11.6-14.6); RBC Distribution Width SD 55.5 fl (35.1-43.9); Red Blood Count 3.24 M/mm3 (4.6-6.2); White Blood Count 7.6 K/mm3 (4.4-11.0)
[2019-08-15 06:48] LABS: Anion Gap 6 (5-15); BUN 11 mg/dL (7-18); BUN/Creat Ratio 15.4 RATIO (10-20); Calcium,Total 8.3 mg/dL (8.5-10.1); Chloride 104 mmol/L (98-107); Creatinine, Serum 0.71 mg/dL (0.70-1.30); EST Glomerular Filtration Rate 118 mL/min (>60); Est Glom Filt Rate - Afr Amer 142 mL/min (>60); Estimated Creatinine Clearance 96.98 ml/min; Glucose 109 mg/dL (74-106); Sodium Level 136 mmol/L (136-145)
[2019-08-15] MEDS: Ipratropium 0.5 MG/2.5 ML SOLUTION INHALATION ×2 (07:15→19:20)
--- NOTE | 2019-08-15 07:17 | PCM.PN.HOSP ---
Reason for Visit: Bilateral infected decubitus ulcers with osteomyelitis Subjective: Post Operative day 2 following patient's surgery. Wound and blood culture result as below. Microbiology 08/13/19 15:28 Bone - Other Gram Stain - Final 08/13/19 15:28 Bone - Other Wound Culture - Preliminary Staphylococcus aureus 08/13/19 15:28 Tissue - Other Gram Stain - Final 08/13/19 15:28 Tissue - Other Wound Culture - Preliminary Staphylococcus aureus 08/13/19 15:28 Bone - Other Gram Stain - Final 08/13/19 15:28 Bone - Other Wound Culture - Preliminary Staphylococcus species 08/13/19 15:28 Tissue - Other Gram Stain - Final 08/13/19 15:28 Tissue - Other Wound Culture - Preliminary Staphylococcus species 08/12/19 19:38 Blood Culture (Wb) - Anticubital Left Bacteria Detection (PCR) - Final Meth. resistant Staph. aureus 08/12/19 19:38 Blood Culture (Wb) - Anticubital Left Blood Culture - Preliminary Staphylococcus aureus Objective: GENERAL: cooperative HEENT: Atraumatic; EYES; Anicteric, Normal Conjunctiva NECK; supple, normal thyroid, RESPIRATORY: Diminished to auscultation CARDIOVASCULAR: Regular S1 S2, GI: soft, normoactive bowel sounds, : No Renal angle tenderness; EXTREMITIES: No edema, no clubbing, MUSCULOSKELETAL: Bilateral stage IV decubitus ulcers NEURO: Awake; no lateralizing signs. SKIN: No Rash PSYCH; Flat affect Vitals/I&O's: Vital Signs Temp Pulse Resp BP Pulse Ox 99 F 71 16 109/57 L 94 08/15/19 02:58 08/15/19 02:58 08/15/19 02:58 08/15/19 02:58 08/15/19 02:58 Oxygen Flow Rate (L/min) 2 Oxygen Delivery Method Nasal Cannula Weight: 71.1 kg Body Mass Index (BMI) 24.5 Intake and Output for Last 24 Hours 08/13/19 08/14/19 08/15/19 23:59 23:59 23:59 Intake Total 5073.67 / 5273.67 3636.75 / 3636.75 476 / 476 Output Total 3150 / 3150 550 / 550 Balance 5073.67 / 4773.67 486.75 / 486.75 -74 / -74 Microbiology Past 72 Hours 08/13/19 15:28 Bone - Other Gram Stain - Final 08/13/19 15:28 Bone - Other Wound Culture - Preliminary Staphylococcus aureus 08/13/19 15:28 Tissue - Other Gram Stain - Final 08/13/19 15:28 Tissue - Other Wound Culture - Preliminary Staphylococcus aureus 08/13/19 15:28 Bone - Other Gram Stain - Final 08/13/19 15:28 Bone - Other Wound Culture - Preliminary Staphylococcus species 08/13/19 15:28 Tissue - Other Gram Stain - Final 08/13/19 15:28 Tissue - Other Wound Culture - Preliminary Staphylococcus species 08/12/19 19:38 Blood Culture (Wb) - Anticubital Left Bacteria Detection (PCR) - Final Meth. resistant Staph. aureus 08/12/19 19:38 Blood Culture (Wb) - Anticubital Left Blood Culture - Preliminary Staphylococcus aureus Laboratory Results 08/14/19 09:08: Vancomycin Trough 22.4 H 08/15/19 06:00: WBC 7.6, RBC 3.24 L, Hgb 7.8 L, Hct 26.1 L, MCV 80.6, MCH 24.1 L, MCHC 29.9 L, RDW Std Deviation 55.5 H, RDW Coeff of Rosendo 19.2 H, Plt Count 421, MPV 7.8 08/15/19 06:00: Sodium 136, Potassium 4.0, Chloride 104, Carbon Dioxide 26.0, Anion Gap 6, BUN 11, Creatinine 0.71, Estim Creat Clear Calc 96.98, Est GFR (MDRD) Af Amer 142, Est GFR (MDRD) Non-Af 118, BUN/Creatinine Ratio 15.4, Glucose 109 H, Calcium 8.3 L Current Medications Amlodipine Besylate (Norvasc) 5 mg PO DAILY [facility] Last Admin: 08/14/19 09:51 Dose: 5 mg Documented by: Ascorbic Acid (Vitamin C) 500 mg PO DAILY@0800 [facility] Last Admin: 08/14/19 09:51 Dose: 500 mg Documented by: Bupropion HCl (Wellbutrin Xl) 300 mg PO QHS [facility] Last Admin: 08/14/19 22:35 Dose: 300 mg Documented by: Buspirone HCl (Buspar) 5 mg PO TID [facility] Last Admin: 08/15/19 05:49 Dose: 5 mg Documented by: Cholecalciferol (Vitamin D (25mcg)) 1,000 unit PO DAILY [facility] Last Admin: 08/14/19 09:52 Dose: 1,000 unit Documented by: Dextrose (D50w Syringe) 0 gm IV X1 PRN; Protocol PRN Reason: Hypoglycemia Diazepam (Valium) 5 mg PO 4X/DAY PRN PRN PRN Reason: SPASMS Diphenhydramine HCl (Benadryl) 25 mg IV Q6H PRN PRN PRN Reason: PRURITIS Last Admin: 08/14/19 08:14 Dose: 25 mg Documented by: Doxazosin Mesylate (Cardura) 2 mg PO QHS [facility] Last Admin: 08/14/19 22:35 Dose: 2 mg Documented by: Ezetimibe (Zetia) 10 mg PO DAILY [facility] Last Admin: 08/14/19 09:52 Dose: 10 mg Documented by: Enoxaparin Sodium (Lovenox) 40 mg SC DAILY [facility] Last Admin: 08/14/19 09:52 Dose: 40 mg Documented by: Escitalopram Oxalate (Lexapro) 10 mg PO DAILY [facility] Last Admin: 08/14/19 09:51 Dose: 10 mg Documented by: Ferrous Gluconate (Ferrous Gluconate) 324 mg PO BIDCM [facility] Last Admin: 08/14/19 17:19 Dose: 324 mg Documented by: Fluticasone Propionate (Flonase Nasal [place]) 2 spray NASAL DAILY [facility] Last Admin: 08/14/19 09:55 Dose: 2 spray Documented by: Gabapentin (Neurontin) 600 mg PO TIDCM [facility] Last Admin: 08/14/19 17:19 Dose: 600 mg Documented by: Glucagon () 1 mg IM .X1 PRN PRN Reason: Hypoglycemia Hydromorphone HCl (Dilaudid Inj) 1 mg IV Q3H PRN PRN PRN Reason: Pain Score 6-10/10 Last Admin: 08/15/19 05:49 Dose: 1 mg Documented by: Sodium Chloride () 1,000 mls @ 30 mls/hr IV .[id number] [facility] Last Infusion: 08/15/19 00:27 Dose: 30 mls/hr Documented by: Sodium Chloride () 250 mls @ 15 mls/hr IV .[id number] PRN PRN Reason: Saline Flush Last Infusion: 08/15/19 05:53 Dose: 0 mls/hr Documented by: Sodium Chloride () 250 mls @ 15 mls/hr IV .[id number] PRN PRN Reason: Additional IVPB Infusion Vancomycin IV Pharmacy to Dose (1 ea/ Sodium Chloride) 500 mls @ 250 mls/hr IV PRN PRN; Protocol PRN Reason: Rx to Dose Piperacillin Sod/Tazobactam (Sod 3.375 gm/ Sodium Chloride) 50 mls @ 12.5 mls/hr IV Q8 [facility] Last Admin: 08/15/19 05:49 Dose: 12.5 mls/hr Documented by: Vancomycin HCl 1,250 mg/ (Sodium Chloride) 275 mls @ 167 mls/hr IV Q12H [facility] Last Infusion: 08/15/19 00:27 Dose: Infused Documented by: Ibuprofen (Motrin) 800 mg PO TID [facility] Last Admin: 08/15/19 05:49 Dose: 800 mg Documented by: Ipratropium [place] (Atrovent) 0.5 mg INHALATION Q6HWA.RT [facility] Last Admin: 08/15/19 07:15 Dose: 0.5 mg Documented by: Metoprolol Tartrate (Lopressor (Beta Joo)) 50 mg PO BID [facility] Last Admin: 08/14/19 22:26 Dose: 50 mg Documented by: Multivitamins (Multivitamin) 1 tablet PO DAILY@0800 [facility] Last Admin: 08/14/19 09:51 Dose: 1 tablet Documented by: Ondansetron HCl (Zofran) 4 mg IV Q8H PRN PRN PRN Reason: NAUSEA/VOMITING Pantoprazole Sodium (Protonix) 40 mg PO DAILY [facility] Last Admin: 08/14/19 09:51 Dose: 40 mg Documented by: Sodium Chloride () 10 - 40 ml IV UD PRN PRN Reason: SALINE FLUSH Last Admin: 08/14/19 23:47 Dose: 10 ml Documented by: Sodium Hypochlorite (Dakins Solution 0.25% (1/2 Strength)) 1 applic TOPICAL BID [facility]; Protocol Last Admin: 08/14/19 22:29 Dose: 1 applicatio Documented by: Medical Necessity - Tobacco Use Smoking Status: Former smoker Assessment/Plan All Active Problems Skin necrosis (Acute) Candidal skin infection (Acute) Infection and inflammatory reaction due to internal left knee prosthesis, initial encounter (Acute) Skin ulcer of left thigh with fat layer exposed (Acute) MRSA bacteremia (Acute) Pneumonia (Acute) SBO (small bowel obstruction) (Acute) Hypotension (Acute) Hyponatremia (Acute) Patient is a 64-year-old gentleman with chronic osteomyelitis and decubitus ulcer involving the right buttocks who presented to the emergency department with right hip pain 1. Chronic osteomyelitis and pressure ulcer right buttock -CT obtained on admission demonstrated Large deep decubitus ulcer posterior to the right ischial tuberosity with associated sclerosis and osseous fragmentation and erosion, increased in extent and severity in the interval. Admitted to the regular nursing floor with consultation placed to plastic surgery for debridement. Patient was started on broad-spectrum antibiotic consultation placed infectious disease ?08/14/2019Patient underwent Excision recurrent right ischial pressure sore, Stage IV, with partial ostectomy for osteomyelitis, Excision necrotic left ischial pressure sore, Stage IV, with partial ostectomy for osteomyelitis. Procedure performed by Dr. Mesa on 08/13/2019. Wound and blood cultures so far positive for MRSA. Patient on broad-spectrum antibiotic therapy. Consult was also placed to infectious disease the day prior. -08/15/2019; pain relatively controlled. Results of patient cultures both blood and tissue reviewed currently on appropriate antibiotic therapy. Management deferred to infectious disease. 2. Hypertension - Blood pressure controlled, home medications continued with dose adjustment as needed 3. GERD ?On PPI 4. COPD ?Not in exacerbation 5. Depression with anxiety - Patient is on Wellbutrin acceptable continue 6. Dyslipidemia ?Patient on Zetia 7. Anemia ?Secondary to anemia of chronic disorder monitoring H&H with plan to transfuse if patient becomes symptomatic or hemoglobin falls below 7 -08/14/2019 patient hemoglobin dropped to 7.2. Patient was deemed to be symptomatic and ended up being transfused with PRBC ?08/15/2019; hemoglobin up to 7.8 8. DVT prophylaxis - On enoxaparin Inpatient E&M: [id number] [facility] L2
[2019-08-15] MEDS: amLODIPine 5 MG Tablet PO (08:56)
[2019-08-15] MEDS: Ezetimibe 10 MG Tablet PO (08:56)
[2019-08-15] MEDS: Multivitamins,Therapeutic Tablet 1 TABLET PO (08:56)
[2019-08-15] MEDS: Metoprolol Tartrate 50 MG Tablet PO ×2 (08:56→22:18)
[2019-08-15] MEDS: Gabapentin 600 MG Tablet PO ×3 (08:56→17:53)
[2019-08-15] MEDS: Pantoprazole Sodium 40 MG Tablet PO (08:56)
[2019-08-15] MEDS: Escitalopram Oxalate 10 MG Tablet PO (08:56)
[2019-08-15] MEDS: Ferrous Gluconate 324 MG Tablet PO ×2 (08:56→17:53)
[2019-08-15] MEDS: Ascorbic Acid 500 MG Tablet PO (08:56)
[2019-08-15] MEDS: Enoxaparin 40 MG/0.4 ML Syringe SC (09:00)
[2019-08-15] MEDS: DAKIN'S SOL HALF STRENGTH (=0.25%) 1 APPLIC TOPICAL ×2 (09:43→22:19)
--- NOTE | 2019-08-15 10:12 | PN.ID_ITS ---
Subjective: Feeling ok, no fever - Physical Exam Vitals/I&O's: Vital Signs Temp Pulse Resp BP Pulse Ox 98.6 F 74 16 134/53 H 92 08/15/19 08:55 08/15/19 08:56 08/15/19 08:55 08/15/19 08:55 08/15/19 08:55 Oxygen Flow Rate (L/min) 2 Oxygen Delivery Method Nasal Cannula Weight: 71.1 kg Body Mass Index (BMI) 24.5 Intake and Output for Last 24 Hours 08/13/19 08/14/19 08/15/19 23:59 23:59 23:59 Intake Total 5073.67 / 5273.67 3636.75 / 3636.75 747 / 747 Output Total 3150 / 3150 550 / 550 Balance 5073.67 / 4773.67 486.75 / 486.75 197 / 197 General: Alert, Cooperative, No apparent distress Lungs: Clear to auscultation, Normal air movement Cardiovascular: Regular rate, Regular Rhythm Abdomen: Soft, Non Tender, Non-Distended Skin: Ulcer/ Wound - reviewed photos Microbiology Past 72 Hours 08/12/19 19:38 Blood Culture (Wb) - Anticubital Left Bacteria Detection (PCR) - Final Meth. resistant Staph. aureus 08/12/19 19:38 Blood Culture (Wb) - Anticubital Left Blood Culture - Final Meth. resistant Staph. aureus 08/13/19 15:28 Bone - Other Gram Stain - Final 08/13/19 15:28 Bone - Other Wound Culture - Preliminary Staphylococcus aureus 08/13/19 15:28 Tissue - Other Gram Stain - Final 08/13/19 15:28 Tissue - Other Wound Culture - Preliminary Staphylococcus aureus 08/13/19 15:28 Bone - Other Gram Stain - Final 08/13/19 15:28 Bone - Other Wound Culture - Preliminary Staphylococcus species 08/13/19 15:28 Tissue - Other Gram Stain - Final 08/13/19 15:28 Tissue - Other Wound Culture - Preliminary Staphylococcus species Laboratory Results 08/15/19 06:00: WBC 7.6, RBC 3.24 L, Hgb 7.8 L, Hct 26.1 L, MCV 80.6, MCH 24.1 L , MCHC 29.9 L, RDW Std Deviation 55.5 H, RDW Coeff of Rosendo 19.2 H, Plt Count 421, MPV 7.8 08/15/19 06:00: Sodium 136, Potassium 4.0, Chloride 104, Carbon Dioxide 26.0, Anion Gap 6, BUN 11, Creatinine 0.71, Estim Creat Clear Calc 96.98, Est GFR (MDRD) Af Amer 142, Est GFR (MDRD) Non-Af 118, BUN/Creatinine Ratio 15.4, Glucose 109 H, Calcium 8.3 L Current Medications Amlodipine Besylate (Norvasc) 5 mg PO DAILY [facility] Last Admin: 08/15/19 08:56 Dose: 5 mg Documented by: Ascorbic Acid (Vitamin C) 500 mg PO DAILY@0800 [facility] Last Admin: 08/15/19 08:56 Dose: 500 mg Documented by: Bupropion HCl (Wellbutrin Xl) 300 mg PO QHS [facility] Last Admin: 08/14/19 22:35 Dose: 300 mg Documented by: Buspirone HCl (Buspar) 5 mg PO TID [facility] Last Admin: 08/15/19 05:49 Dose: 5 mg Documented by: Cholecalciferol (Vitamin D (25mcg)) 1,000 unit PO DAILY [facility] Last Admin: 08/15/19 08:56 Dose: 1,000 unit Documented by: Dextrose (D50w Syringe) 0 gm IV X1 PRN; Protocol PRN Reason: Hypoglycemia Diazepam (Valium) 5 mg PO 4X/DAY PRN PRN PRN Reason: SPASMS Diphenhydramine HCl (Benadryl) 25 mg IV Q6H PRN PRN PRN Reason: PRURITIS Last Admin: 08/14/19 08:14 Dose: 25 mg Documented by: Doxazosin Mesylate (Cardura) 2 mg PO QHS [facility] Last Admin: 08/14/19 22:35 Dose: 2 mg Documented by: Ezetimibe (Zetia) 10 mg PO DAILY [facility] Last Admin: 08/15/19 08:56 Dose: 10 mg Documented by: Enoxaparin Sodium (Lovenox) 40 mg SC DAILY [facility] Last Admin: 08/15/19 09:00 Dose: 40 mg Documented by: Escitalopram Oxalate (Lexapro) 10 mg PO DAILY [facility] Last Admin: 08/15/19 08:56 Dose: 10 mg Documented by: Ferrous Gluconate (Ferrous Gluconate) 324 mg PO BIDCM [facility] Last Admin: 08/15/19 08:56 Dose: 324 mg Documented by: Fluticasone Propionate (Flonase Nasal [place]) 2 spray NASAL QHS [facility] Gabapentin (Neurontin) 600 mg PO TIDCM [facility] Last Admin: 08/15/19 08:56 Dose: 600 mg Documented by: Glucagon () 1 mg IM .X1 PRN PRN Reason: Hypoglycemia Hydromorphone HCl (Dilaudid Inj) 1 mg IV Q3H PRN PRN PRN Reason: Pain Score 6-10/10 Last Admin: 08/15/19 08:56 Dose: 1 mg Documented by: Sodium Chloride () 1,000 mls @ 30 mls/hr IV .[id number] [facility] Last Infusion: 08/15/19 09:29 Dose: 0 mls/hr Documented by: Sodium Chloride () 250 mls @ 15 mls/hr IV .[id number] PRN PRN Reason: Saline Flush Last Infusion: 08/15/19 05:53 Dose: 0 mls/hr Documented by: Sodium Chloride () 250 mls @ 15 mls/hr IV .[id number] PRN PRN Reason: Additional IVPB Infusion Vancomycin IV Pharmacy to Dose (1 ea/ Sodium Chloride) 500 mls @ 250 mls/hr IV PRN PRN; Protocol PRN Reason: Rx to Dose Piperacillin Sod/Tazobactam (Sod 3.375 gm/ Sodium Chloride) 50 mls @ 12.5 mls/hr IV Q8 [facility] Last Admin: 08/15/19 05:49 Dose: 12.5 mls/hr Documented by: Vancomycin HCl 1,250 mg/ (Sodium Chloride) 275 mls @ 167 mls/hr IV Q12H [facility] Last Admin: 08/15/19 09:29 Dose: 167 mls/hr Documented by: Ibuprofen (Motrin) 800 mg PO TID [facility] Last Admin: 08/15/19 05:49 Dose: 800 mg Documented by: Ipratropium [place] (Atrovent) 0.5 mg INHALATION Q6HWA.RT [facility] Last Admin: 08/15/19 07:15 Dose: 0.5 mg Documented by: Metoprolol Tartrate (Lopressor (Beta Joo)) 50 mg PO BID [facility] Last Admin: 08/15/19 08:56 Dose: 50 mg Documented by: Multivitamins (Multivitamin) 1 tablet PO DAILY@0800 [facility] Last Admin: 08/15/19 08:56 Dose: 1 tablet Documented by: Ondansetron HCl (Zofran) 4 mg IV Q8H PRN PRN PRN Reason: NAUSEA/VOMITING Pantoprazole Sodium (Protonix) 40 mg PO DAILY [facility] Last Admin: 08/15/19 08:56 Dose: 40 mg Documented by: Sodium Chloride () 10 - 40 ml IV UD PRN PRN Reason: SALINE FLUSH Last Admin: 08/14/19 23:47 Dose: 10 ml Documented by: Sodium Hypochlorite (Dakins Solution 0.25% (1/2 Strength)) 1 applic TOPICAL BID [facility]; Protocol Last Admin: 08/15/19 09:43 Dose: 1 applicatio Documented by: Medical Necessity - Tobacco Use Smoking Status: Former smoker Route of nutrition/ use of supplements: [] Nutritional Intake: [] IV Site: [] Walker Catheter: [] - Assessment/Plan Antibiotics: [] Assessment/Plan: [] Active and Suspected Problems Chronic osteomyelitis of right pelvic region (Acute) Pressure injury of right buttock, stage 2 (Acute) Right ischial pressure sore, 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 [place]. Prior cxs with MRSA, PsA, proteus, corynebacteria. Cont vanc/zosyn. COVID neg. Will repeat bcx. TTE neg for veg. Vanc JYOTI was 2. Requested micro release dapto susc and sendout for ceftaroline. Will follow
[2019-08-15] MEDS: diazePAM 5 MG Tablet PO ×2 (12:13→22:05)
[2019-08-15] MEDS: DiphenhydrAMINE 50 MG/ML Syringe 25 MG IV (12:31)
--- NOTE | 2019-08-15 13:10 | CASEMGMT ---
Social Work Note SW in to meet with pt to discuss discharge plans. Pt states that he prefers to return home with [facility]. SW updated pt that he will need to be on IV antibiotics at discharge and asked if he will have someone available to assist and pt states he will have someone available to assist him. SW asked pt if SNF is needed if he had preference. Pt states that if SNF is needed he would be willing to return to [facility] but again states he wishes to discharge home. SW updated RN CM. Plan: BETTIE Og SUPPLY CHAIN GENERALIST, BLOW DOWN OPERATOR
--- NOTE | 2019-08-15 14:18 | NURSING ---
Removed colostomy appliance. peristomal skin slightly improved. still with scattered small open areas. less redness noted. cleansed peristomal skin with warm soap and water. pat dry. placed Melgisorb to the open areas, covered with comfeel clear. applied a 2 piece flat [place] appliance with a small amount of stoma paste. pt tolerated well. assisted pt to sit at edge of bed to void. pt voided 900 cc's clear yellow urine.
[2019-08-15] MEDS: 0.9% Normal Saline 1,000 ML 30 ML IV (14:44)
[2019-08-15] MEDS: 0.9% Saline Lock 10 ML Syringe IV (14:54)
--- NOTE | 2019-08-15 16:00 | CASEMGMT ---
Social Work Note SW updated that pt is now agreeable to SNF. SW back in to speak with pt. Pt confirms that he is agreeable to SNF and prefers [facility]. SW explained referral process and pt will need pre-cert. Pt states understanding. SW placed a call to [facility] and spoke with Fadumo in admissions. Fadumo states she has no beds available. SW back in to speak with pt. SW updated pt that [facility] has no beds available. SW provided pt with list of SNF that accept pt's insurance and encouraged pt to review list tonight and have choice picked out tomorrow and SW can check in with pt tomorrow. Pt states understanding. Plan: SNF pending acceptance and pre-cert. Pt to review list of SNF tonight and have choice tomorrow. Caroline Og TOWER HELPER, STAFFING CLERK
--- NOTE | 2019-08-15 20:46 | PN.SURG_ITS ---
Subjective: Postop #2 Patient is resting comfortably. - Physical Exam Vitals/I&O's: Vital Signs Temp Pulse Resp BP Pulse Ox 98.3 F 68 20 H 131/49 H 93 08/15/19 14:45 08/15/19 19:20 08/15/19 19:20 08/15/19 14:45 08/15/19 19:26 Oxygen Flow Rate (L/min) 2 Oxygen Delivery Method Nasal Cannula Weight: 156 lb 11.979 oz Body Mass Index (BMI) 24.5 Intake and Output for Last 24 Hours 08/13/19 08/14/19 08/15/19 23:59 23:59 23:59 Intake Total 5073.67 / 5273.67 3636.75 / 3636.75 2046.58 / 2046.58 Output Total 3150 / 3150 2150 / 2150 Balance 5073.67 / 4773.67 486.75 / 486.75 -103.42 / -103.42 General: Alert, Oriented x3 HEENT: PERRLA, EOMI Oral: Moist Mucosa Neck: Supple Abdomen: Soft, Non-Distended Skin: Ulcer/ Wound - bilateral ischial pressure sores are stable. No bleeding noted. Redressed with Dakin's dressing changes. Neurological: Cranial nerves II-XII grossly intact Psych/Mental Status: Normal Affect, Appropriate Microbiology Past 72 Hours 08/12/19 19:38 Blood Culture (Wb) - Anticubital Left Bacteria Detection (PCR) - Final Meth. resistant Staph. aureus 08/12/19 19:38 Blood Culture (Wb) - Anticubital Left Blood Culture - Preliminary Meth. resistant Staph. aureus 08/13/19 15:28 Tissue - Other Gram Stain - Final 08/13/19 15:28 Tissue - Other Wound Culture - Preliminary Meth. resistant Staph. aureus Gram negative jesus Gram positive jesus 08/13/19 15:28 Bone - Other Gram Stain - Final 08/13/19 15:28 Bone - Other Wound Culture - Preliminary Meth. resistant Staph. aureus 08/13/19 15:28 Bone - Other Gram Stain - Final 08/13/19 15:28 Bone - Other Wound Culture - Preliminary Staphylococcus species 08/13/19 15:28 Tissue - Other Gram Stain - Final 08/13/19 15:28 Tissue - Other Wound Culture - Preliminary Staphylococcus species Laboratory Results 08/15/19 06:00: WBC 7.6, RBC 3.24 L, Hgb 7.8 L, Hct 26.1 L, MCV 80.6, MCH 24.1 L , MCHC 29.9 L, RDW Std Deviation 55.5 H, RDW Coeff of Rosendo 19.2 H, Plt Count 421, MPV 7.8 08/15/19 06:00: Sodium 136, Potassium 4.0, Chloride 104, Carbon Dioxide 26.0, Anion Gap 6, BUN 11, Creatinine 0.71, Estim Creat Clear Calc 96.98, Est GFR (MDRD) Af Amer 142, Est GFR (MDRD) Non-Af 118, BUN/Creatinine Ratio 15.4, Glucose 109 H, Calcium 8.3 L Current Medications Amlodipine Besylate (Norvasc) 5 mg PO DAILY [facility] Last Admin: 08/15/19 08:56 Dose: 5 mg Documented by: Ascorbic Acid (Vitamin C) 500 mg PO DAILY@0800 [facility] Last Admin: 08/15/19 08:56 Dose: 500 mg Documented by: Bupropion HCl (Wellbutrin Xl) 300 mg PO QHS [facility] Last Admin: 08/14/19 22:35 Dose: 300 mg Documented by: Buspirone HCl (Buspar) 5 mg PO TID [facility] Last Admin: 08/15/19 14:44 Dose: 5 mg Documented by: Cholecalciferol (Vitamin D (25mcg)) 1,000 unit PO DAILY [facility] Last Admin: 08/15/19 08:56 Dose: 1,000 unit Documented by: Dextrose (D50w Syringe) 0 gm IV X1 PRN; Protocol PRN Reason: Hypoglycemia Diazepam (Valium) 5 mg PO 4X/DAY PRN PRN PRN Reason: SPASMS Last Admin: 08/15/19 12:13 Dose: 5 mg Documented by: Diphenhydramine HCl (Benadryl) 25 mg IV Q6H PRN PRN PRN Reason: PRURITIS Last Admin: 08/15/19 12:31 Dose: 25 mg Documented by: Doxazosin Mesylate (Cardura) 2 mg PO QHS [facility] Last Admin: 08/14/19 22:35 Dose: 2 mg Documented by: Ezetimibe (Zetia) 10 mg PO DAILY [facility] Last Admin: 08/15/19 08:56 Dose: 10 mg Documented by: Enoxaparin Sodium (Lovenox) 40 mg SC DAILY [facility] Last Admin: 08/15/19 09:00 Dose: 40 mg Documented by: Escitalopram Oxalate (Lexapro) 10 mg PO DAILY [facility] Last Admin: 08/15/19 08:56 Dose: 10 mg Documented by: Ferrous Gluconate (Ferrous Gluconate) 324 mg PO BIDCM [facility] Last Admin: 08/15/19 17:53 Dose: 324 mg Documented by: Fluticasone Propionate (Flonase Nasal [place]) 2 spray NASAL QHS [facility] Gabapentin (Neurontin) 600 mg PO TIDCM [facility] Last Admin: 08/15/19 17:53 Dose: 600 mg Documented by: Glucagon () 1 mg IM .X1 PRN PRN Reason: Hypoglycemia Hydromorphone HCl (Dilaudid Inj) 1 mg IV Q3H PRN PRN PRN Reason: Pain Score 6-10/10 Last Admin: 08/15/19 18:58 Dose: 1 mg Documented by: Sodium Chloride () 1,000 mls @ 30 mls/hr IV .[id number] [facility] Last Admin: 08/15/19 14:44 Dose: 30 mls/hr Documented by: Sodium Chloride () 250 mls @ 15 mls/hr IV .[id number] PRN PRN Reason: Saline Flush Last Infusion: 08/15/19 14:44 Dose: Infused Documented by: Sodium Chloride () 250 mls @ 15 mls/hr IV .[id number] PRN PRN Reason: Additional IVPB Infusion Vancomycin IV Pharmacy to Dose (1 ea/ Sodium Chloride) 500 mls @ 250 mls/hr IV PRN PRN; Protocol PRN Reason: Rx to Dose Piperacillin Sod/Tazobactam (Sod 3.375 gm/ Sodium Chloride) 50 mls @ 12.5 mls/hr IV Q8 [facility] Last Infusion: 08/15/19 18:44 Dose: Infused Documented by: Vancomycin HCl 1,250 mg/ (Sodium Chloride) 275 mls @ 167 mls/hr IV Q12H [facility] Last Infusion: 08/15/19 11:08 Dose: Infused Documented by: Ibuprofen (Motrin) 800 mg PO TID [facility] Last Admin: 08/15/19 14:44 Dose: 800 mg Documented by: Ipratropium [place] (Atrovent) 0.5 mg INHALATION Q6HWA.RT [facility] Last Admin: 08/15/19 19:20 Dose: 0.5 mg Documented by: Metoprolol Tartrate (Lopressor (Beta Joo)) 50 mg PO BID [facility] Last Admin: 08/15/19 08:56 Dose: 50 mg Documented by: Multivitamins (Multivitamin) 1 tablet PO DAILY@0800 [facility] Last Admin: 08/15/19 08:56 Dose: 1 tablet Documented by: Ondansetron HCl (Zofran) 4 mg IV Q8H PRN PRN PRN Reason: NAUSEA/VOMITING Pantoprazole Sodium (Protonix) 40 mg PO DAILY [facility] Last Admin: 08/15/19 08:56 Dose: 40 mg Documented by: Sodium Chloride () 10 - 40 ml IV UD PRN PRN Reason: SALINE FLUSH Last Admin: 08/15/19 14:54 Dose: 10 ml Documented by: Sodium Hypochlorite (Dakins Solution 0.25% (1/2 Strength)) 1 applic TOPICAL BID [facility]; Protocol Last Admin: 08/15/19 09:43 Dose: 1 applicatio Documented by: Medical Necessity - Tobacco Use Smoking Status: Former smoker Assessment/Plan All Active Problems Skin necrosis (Acute) Candidal skin infection (Acute) Infection and inflammatory reaction due to internal left knee prosthesis, initial encounter (Acute) Skin ulcer of left thigh with fat layer exposed (Acute) MRSA bacteremia (Acute) Pneumonia (Acute) SBO (small bowel obstruction) (Acute) Hypotension (Acute) Hyponatremia (Acute) 1. Recurrent right ischial pressure sore, Stage IV. 2. 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 3. Osteomyelitis. 4. MRSA. 5. Necrotic left ischial pressure sore, Stage IV. 6. History of anal CA treated with chemotherapy and radiation therapy. 7. Anemia of chronic disease. Continue Vancomycin and Zosyn. Operative cultures show MRSA thus far. Pathology is pending. Anticipate increased metabolic demands from the infection and from the large wounds. Prealbumin will be checked and encourage nutritional supplementation with protein to help the healing process. Continue Dakin's dressing changes daily. His Hgb is 7.8. Will continue to observe. No active bleeding noted in the wounds. ECF evaluation in process. After discharge [facility].
[2019-08-15] MEDS: Fluticasone 0.05% 1 SPRAY NASAL.SRY 2 SPRAY NASAL (22:06)
[2019-08-15] MEDS: buPROPion (XL) 300 MG TABLET.XL PO (22:15)
[2019-08-15] MEDS: Doxazosin 1 MG Tablet 2 MG PO (22:15)
[2019-08-16] VITALS (9 sets, daily range): BP systolic 118–145; BP diastolic 51–68; PULSE 65–79; RESP 16–20; TEMP 36.7–37.2; O2SAT 86–95
[2019-08-16] MEDS: DiphenhydrAMINE 50 MG/ML Syringe 25 MG IV ×2 (04:32→21:50)
[2019-08-16] MEDS: HYDROmorphone 1 MG/ML Syringe IV ×3 (04:33→20:43)
[2019-08-16] MEDS: Ibuprofen 400 MG Tablet 800 MG PO ×3 (04:36→21:18)
[2019-08-16] MEDS: busPIRone 5 MG Tablet PO ×3 (04:36→21:18)
[2019-08-16 06:26] LABS: Hematocrit 26.4 % (40-54); Hemoglobin 7.7 g/dL (13.0-16.5); Mean Corp Hgb Conc 29.2 g/dL (32-36); Mean Corpuscular Hgb 23.7 pg (27.0-32.0); Mean Corpuscular Volume 81.2 fL (80-94); Mean Platelet Vol. 7.8 fl (6.2-12.0); Platelet Count 455 K/mm3 (150-450); RBC Distribution Width CV 19.9 % (11.6-14.6); Red Blood Count 3.25 M/mm3 (4.6-6.2); White Blood Count 6.7 K/mm3 (4.4-11.0)
[2019-08-16 06:55] LABS: Anion Gap 5 (5-15); BUN 11 mg/dL (7-18); BUN/Creat Ratio 17.4 RATIO (10-20); Calcium,Total 8.3 mg/dL (8.5-10.1); Chloride 105 mmol/L (98-107); Creatinine, Serum 0.63 mg/dL (0.70-1.30); EST Glomerular Filtration Rate 135 mL/min (>60); Est Glom Filt Rate - Afr Amer 164 mL/min (>60); Estimated Creatinine Clearance 109.29 ml/min; Glucose 113 mg/dL (74-106); Potassium 3.6 mmol/L (3.5-5.1); Prealbumin 8.4 mg/dL (20.0-40.0); Sodium Level 139 mmol/L (136-145)
--- NOTE | 2019-08-16 07:17 | PN_ITS ---
Reason for Visit: Follow-up bilateral infected decubitus wound and osteomyelitis Subjective: Patient seen complains of back discomfort, an order was given for patient to have a PICC line placed. Case management consulted assisting with disposition to a residential facility Objective: GENERAL: cooperative HEENT: Atraumatic; EYES; Anicteric, Normal Conjunctiva NECK; supple, normal thyroid, RESPIRATORY: Diminished to auscultation CARDIOVASCULAR: Regular S1 S2, GI: soft, normoactive bowel sounds, : No Renal angle tenderness; EXTREMITIES: No edema, no clubbing, MUSCULOSKELETAL: Bilateral stage IV decubitus ulcers NEURO: Awake; no lateralizing signs. SKIN: No Rash PSYCH; Flat affect Vitals/I&O's: Vital Signs Temp Pulse Resp BP Pulse Ox 98.0 F 78 16 141/51 H 93 08/16/19 02:45 08/16/19 02:45 08/16/19 02:45 08/16/19 02:45 08/16/19 02:45 Oxygen Flow Rate (L/min) 2 Oxygen Delivery Method Nasal Cannula Weight: 71.1 kg Body Mass Index (BMI) 24.5 Intake and Output for Last 24 Hours 08/14/19 08/15/19 08/16/19 23:59 23:59 23:59 Intake Total 3636.75 / 3636.75 2321.58 / 2671.58 750 / 750 Output Total 3150 / 3150 2150 / 3050 1480 / 1480 Balance 486.75 / 486.75 171.58 / -378.42 -730 / -730 Microbiology Past 72 Hours 08/12/19 19:38 Blood Culture (Wb) - Anticubital Left Bacteria Detection (PCR) - Final Meth. resistant Staph. aureus 08/12/19 19:38 Blood Culture (Wb) - Anticubital Left Blood Culture - Preliminary Meth. resistant Staph. aureus 08/13/19 15:28 Tissue - Other Gram Stain - Final 08/13/19 15:28 Tissue - Other Wound Culture - Preliminary Meth. resistant Staph. aureus Gram negative jesus Gram positive jesus 08/13/19 15:28 Bone - Other Gram Stain - Final 08/13/19 15:28 Bone - Other Wound Culture - Preliminary Meth. resistant Staph. aureus 08/13/19 15:28 Bone - Other Gram Stain - Final 06/02/20 15:28 Bone - Other Wound Culture - Preliminary Staphylococcus species 08/13/19 15:28 Tissue - Other Gram Stain - Final 08/13/19 15:28 Tissue - Other Wound Culture - Preliminary Staphylococcus species Laboratory Results 08/16/19 06:09: WBC 6.7, RBC 3.25 L, Hgb 7.7 L, Hct 26.4 L, MCV 81.2, MCH 23.7 L , MCHC 29.2 L, RDW Std Deviation 58.0 H, RDW Coeff of Rosendo 19.9 H, Plt Count 455 H, MPV 7.8 08/16/19 06:09: Sodium 139, Potassium 3.6, Chloride 105, Carbon Dioxide 29.0, Anion Gap 5, BUN 11, Creatinine 0.63 L, Estim Creat Clear Calc 109.29, Est GFR (MDRD) Af Amer 164, Est GFR (MDRD) Non-Af 135, BUN/Creatinine Ratio 17.4, Glucose 113 H, Calcium 8.3 L, Prealbumin 8.4 L Current Medications Amlodipine Besylate (Norvasc) 5 mg PO DAILY [facility] Last Admin: 08/15/19 08:56 Dose: 5 mg Documented by: Ascorbic Acid (Vitamin C) 500 mg PO DAILY@0800 [facility] Last Admin: 08/15/19 08:56 Dose: 500 mg Documented by: Bupropion HCl (Wellbutrin Xl) 300 mg PO QHS [facility] Last Admin: 08/15/19 22:15 Dose: 300 mg Documented by: Buspirone HCl (Buspar) 5 mg PO TID [facility] Last Admin: 08/16/19 04:36 Dose: 5 mg Documented by: Cholecalciferol (Vitamin D (25mcg)) 1,000 unit PO DAILY [facility] Last Admin: 08/15/19 08:56 Dose: 1,000 unit Documented by: Dextrose (D50w Syringe) 0 gm IV X1 PRN; Protocol PRN Reason: Hypoglycemia Diazepam (Valium) 5 mg PO 4X/DAY PRN PRN PRN Reason: SPASMS Last Admin: 08/15/19 22:05 Dose: 5 mg Documented by: Diphenhydramine HCl (Benadryl) 25 mg IV Q6H PRN PRN PRN Reason: PRURITIS Last Admin: 08/16/19 04:32 Dose: 25 mg Documented by: Doxazosin Mesylate (Cardura) 2 mg PO QHS [facility] Last Admin: 08/15/19 22:15 Dose: 2 mg Documented by: Ezetimibe (Zetia) 10 mg PO DAILY [facility] Last Admin: 08/15/19 08:56 Dose: 10 mg Documented by: Enoxaparin Sodium (Lovenox) 40 mg SC DAILY [facility] Last Admin: 08/15/19 09:00 Dose: 40 mg Documented by: Escitalopram Oxalate (Lexapro) 10 mg PO DAILY [facility] Last Admin: 08/15/19 08:56 Dose: 10 mg Documented by: Ferrous Gluconate (Ferrous Gluconate) 324 mg PO BIDCM [facility] Last Admin: 08/15/19 17:53 Dose: 324 mg Documented by: Fluticasone Propionate (Flonase Nasal [place]) 2 spray NASAL QHS [facility] Last Admin: 08/15/19 22:06 Dose: 2 sprays Documented by: Gabapentin (Neurontin) 600 mg PO TIDCM [facility] Last Admin: 08/15/19 17:53 Dose: 600 mg Documented by: Glucagon () 1 mg IM .X1 PRN PRN Reason: Hypoglycemia Hydromorphone HCl (Dilaudid Inj) 1 mg IV Q3H PRN PRN PRN Reason: Pain Score 6-10/10 Last Admin: 08/16/19 04:33 Dose: 1 mg Documented by: Sodium Chloride () 1,000 mls @ 30 mls/hr IV .[id number] [facility] Last Admin: 08/15/19 14:44 Dose: 30 mls/hr Documented by: Sodium Chloride () 250 mls @ 15 mls/hr IV .[id number] PRN PRN Reason: Saline Flush Last Admin: 08/15/19 22:23 Dose: 15 mls/hr Documented by: Sodium Chloride () 250 mls @ 15 mls/hr IV .[id number] PRN PRN Reason: Additional IVPB Infusion Vancomycin IV Pharmacy to Dose (1 ea/ Sodium Chloride) 500 mls @ 250 mls/hr IV PRN PRN; Protocol PRN Reason: Rx to Dose Piperacillin Sod/Tazobactam (Sod 3.375 gm/ Sodium Chloride) 50 mls @ 12.5 mls/hr IV Q8 [facility] Last Admin: 08/16/19 04:33 Dose: 12.5 mls/hr Documented by: Vancomycin HCl 1,250 mg/ (Sodium Chloride) 275 mls @ 167 mls/hr IV Q12H [facility] Last Infusion: 08/15/19 23:31 Dose: Infused Documented by: Ibuprofen (Motrin) 800 mg PO TID [facility] Last Admin: 08/16/19 04:36 Dose: 800 mg Documented by: Ipratropium [place] (Atrovent) 0.5 mg INHALATION Q6HWA.RT [facility] Last Admin: 08/15/19 19:20 Dose: 0.5 mg Documented by: Metoprolol Tartrate (Lopressor (Beta Joo)) 50 mg PO BID [facility] Last Admin: 08/15/19 22:18 Dose: 50 mg Documented by: Multivitamins (Multivitamin) 1 tablet PO DAILY@0800 [facility] Last Admin: 08/15/19 08:56 Dose: 1 tablet Documented by: Ondansetron HCl (Zofran) 4 mg IV Q8H PRN PRN PRN Reason: NAUSEA/VOMITING Pantoprazole Sodium (Protonix) 40 mg PO DAILY [facility] Last Admin: 08/15/19 08:56 Dose: 40 mg Documented by: Sodium Chloride () 10 - 40 ml IV UD PRN PRN Reason: SALINE FLUSH Last Admin: 08/15/19 14:54 Dose: 10 ml Documented by: Sodium Hypochlorite (Dakins Solution 0.25% (1/2 Strength)) 1 applic TOPICAL BID [facility]; Protocol Last Admin: 08/15/19 22:19 Dose: 1 applicatio Documented by: Medical Necessity - Tobacco Use Smoking Status: Former smoker Assessment/Plan All Active Problems Skin necrosis (Acute) Candidal skin infection (Acute) Infection and inflammatory reaction due to internal left knee prosthesis, initial encounter (Acute) Skin ulcer of left thigh with fat layer exposed (Acute) MRSA bacteremia (Acute) Pneumonia (Acute) SBO (small bowel obstruction) (Acute) Hypotension (Acute) Hyponatremia (Acute) Patient is a 64-year-old gentleman with chronic osteomyelitis and decubitus ulcer involving the right buttocks who presented to the emergency department with right hip pain 1. Chronic osteomyelitis and pressure ulcer right buttock -CT obtained on admission demonstrated Large deep decubitus ulcer posterior to the right ischial tuberosity with associated sclerosis and osseous fragmentation and erosion, increased in extent and severity in the interval. Admitted to the regular nursing floor with consultation placed to plastic surgery for debridement. Patient was started on broad-spectrum antibiotic consultation placed infectious disease ?08/14/2019Patient underwent Excision recurrent right ischial pressure sore, Stage IV, with partial ostectomy for osteomyelitis, Excision necrotic left ischial pressure sore, Stage IV, with partial ostectomy for osteomyelitis. Procedure performed by Dr. [place] on 08/13/2019. Wound and blood cultures so far positive for MRSA. Patient on broad-spectrum antibiotic therapy. Consult was also placed to infectious disease the day prior. -08/15/2019; pain relatively controlled. Results of patient cultures both blood a nd tissue reviewed currently on appropriate antibiotic therapy. Management deferred to infectious disease. ?08/16/2019. An order was given for patient to have a PICC line placed 2. Hypertension - Blood pressure controlled, home medications continued with dose adjustment as needed 3. GERD ?On PPI 4. COPD ?Not in exacerbation 5. Depression with anxiety - Patient is on Wellbutrin acceptable continue 6. Dyslipidemia ?Patient on Zetia 7. Anemia ?Secondary to anemia of chronic disorder monitoring H&H with plan to transfuse if patient becomes symptomatic or hemoglobin falls below 7 -08/14/2019 patient hemoglobin dropped to 7.2. Patient was deemed to be symptomatic and ended up being transfused with PRBC ?08/15/2019; hemoglobin up to 7.8 8. DVT prophylaxis - On enoxaparin 9. Physical deconditioning - Requested for PT OT eval and social insurance analyst to assist with discharge planning CODE STATUS: Full code Inpatient E&M: 03108 Subs Hosp L2
[2019-08-16] MEDS: Ipratropium 0.5 MG/2.5 ML SOLUTION INHALATION ×2 (07:27→19:06)
--- NOTE | 2019-08-16 08:25 | NURSING ---
Rizwana at [employer] machine operator called at this time and notified of need for PICC line. Will call with time when available.
[2019-08-16] MEDS: Gabapentin 600 MG Tablet PO ×3 (08:51→18:29)
[2019-08-16] MEDS: Escitalopram Oxalate 10 MG Tablet PO (08:51)
[2019-08-16] MEDS: Ascorbic Acid 500 MG Tablet PO (08:51)
[2019-08-16] MEDS: amLODIPine 5 MG Tablet PO (08:51)
[2019-08-16] MEDS: Multivitamins,Therapeutic Tablet 1 TABLET PO (08:51)
[2019-08-16] MEDS: Metoprolol Tartrate 50 MG Tablet PO ×2 (08:51→21:18)
[2019-08-16] MEDS: Enoxaparin 40 MG/0.4 ML Syringe SC (08:51)
[2019-08-16] MEDS: Ferrous Gluconate 324 MG Tablet PO ×2 (08:51→18:29)
[2019-08-16] MEDS: Pantoprazole Sodium 40 MG Tablet PO (08:51)
[2019-08-16] MEDS: Ezetimibe 10 MG Tablet PO (08:51)
[2019-08-16] MEDS: DAKIN'S SOL HALF STRENGTH (=0.25%) 1 APPLIC TOPICAL ×2 (09:57→21:19)
--- NOTE | 2019-08-16 09:58 | PCM.PN.SRG ---
Subjective: Post op day #3 Objective: Patient is resting comfortably in bed. - Physical Exam Vitals/I&O's: Vital Signs Temp Pulse Resp BP Pulse Ox 98.8 F 70 18 141/57 H 95 08/16/19 08:08 08/16/19 08:51 08/16/19 08:08 08/16/19 08:08 08/16/19 08:08 Oxygen Flow Rate (L/min) 2 Oxygen Delivery Method Nasal Cannula Weight: 156 lb 11.979 oz Body Mass Index (BMI) 24.5 Intake and Output for Last 24 Hours 08/14/19 08/15/19 08/16/19 23:59 23:59 23:59 Intake Total 3636.75 / 3636.75 2321.58 / 2671.58 800 / 800 Output Total 3150 / 3150 2150 / 3050 1480 / 1480 Balance 486.75 / 486.75 171.58 / -378.42 -680 / -680 General: Alert, Oriented x3 HEENT: Atraumatic Oral: Moist Mucosa Lungs: Normal air movement Cardiovascular: Regular rate Abdomen: Soft, Non Tender Skin: Ulcer/ Wound - Bilateral ischial ulcers. Dakin's dressing change. No active bleeding of either ulcer. Musculoskeletal: No Tenderness to Palpation of Joints or Extremities Neurological: Neuro grossly intact Psych/Mental Status: Normal Affect - Patient is irritable today. He is angry about all the blood draws he has to have done. Microbiology Past 72 Hours 08/13/19 15:28 Bone - Other Gram Stain - Final 08/13/19 15:28 Bone - Other Wound Culture - Preliminary Meth. resistant Staph. aureus Corynebacterium species 08/13/19 15:28 Tissue - Other Gram Stain - Final 08/13/19 15:28 Tissue - Other Wound Culture - Final Meth. resistant Staph. aureus Corynebacterium species 08/13/19 15:28 Bone - Other Gram Stain - Final 08/13/19 15:28 Bone - Other Wound Culture - Preliminary Meth. resistant Staph. aureus Corynebacterium species 08/13/19 15:28 Tissue - Other Gram Stain - Final 08/13/19 15:28 Tissue - Other Wound Culture - Preliminary Meth. resistant Staph. aureus Escherichia coli Gram positive jesus 08/12/19 19:38 Blood Culture (Wb) - Anticubital Left Bacteria Detection (PCR) - Final Meth. resistant Staph. aureus 08/12/19 19:38 Blood Culture (Wb) - Anticubital Left Blood Culture - Preliminary Meth. resistant Staph. aureus Laboratory Results 08/16/19 06:09: WBC 6.7, RBC 3.25 L, Hgb 7.7 L, Hct 26.4 L, MCV 81.2, MCH 23.7 L, MCHC 29.2 L, RDW Std Deviation 58.0 H, RDW Coeff of Rosendo 19.9 H, Plt Count 455 H, MPV 7.8 08/16/19 06:09: Sodium 139, Potassium 3.6, Chloride 105, Carbon Dioxide 29.0, Anion Gap 5, BUN 11, Creatinine 0.63 L, Estim Creat Clear Calc 109.29, Est GFR (MDRD) Af Amer 164, Est GFR (MDRD) Non-Af 135, BUN/Creatinine Ratio 17.4, Glucose 113 H, Calcium 8.3 L, Prealbumin 8.4 L 08/16/19 09:42: Vancomycin Trough Pending Current Medications Amlodipine Besylate (Norvasc) 5 mg PO DAILY [facility] Last Admin: 08/16/19 08:51 Dose: 5 mg Documented by: Ascorbic Acid (Vitamin C) 500 mg PO DAILY@0800 [facility] Last Admin: 08/16/19 08:51 Dose: 500 mg Documented by: Bupropion HCl (Wellbutrin Xl) 300 mg PO QHS [facility] Last Admin: 08/15/19 22:15 Dose: 300 mg Documented by: Buspirone HCl (Buspar) 5 mg PO TID [facility] Last Admin: 08/16/19 04:36 Dose: 5 mg Documented by: Cholecalciferol (Vitamin D (25mcg)) 1,000 unit PO DAILY [facility] Last Admin: 08/16/19 08:51 Dose: 1,000 unit Documented by: Dextrose (D50w Syringe) 0 gm IV X1 PRN; Protocol PRN Reason: Hypoglycemia Diazepam (Valium) 5 mg PO 4X/DAY PRN PRN PRN Reason: SPASMS Last Admin: 08/15/19 22:05 Dose: 5 mg Documented by: Diphenhydramine HCl (Benadryl) 25 mg IV Q6H PRN PRN PRN Reason: PRURITIS Last Admin: 08/16/19 04:32 Dose: 25 mg Documented by: Doxazosin Mesylate (Cardura) 2 mg PO QHS [facility] Last Admin: 08/15/19 22:15 Dose: 2 mg Documented by: Ezetimibe (Zetia) 10 mg PO DAILY [facility] Last Admin: 08/16/19 08:51 Dose: 10 mg Documented by: Enoxaparin Sodium (Lovenox) 40 mg SC DAILY [facility] Last Admin: 08/16/19 08:51 Dose: 40 mg Documented by: Escitalopram Oxalate (Lexapro) 10 mg PO DAILY [facility] Last Admin: 08/16/19 08:51 Dose: 10 mg Documented by: Ferrous Gluconate (Ferrous Gluconate) 324 mg PO BIDCM [facility] Last Admin: 08/16/19 08:51 Dose: 324 mg Documented by: Fluticasone Propionate (Flonase Nasal [place]) 2 spray NASAL QHS [facility] Last Admin: 08/15/19 22:06 Dose: 2 sprays Documented by: Gabapentin (Neurontin) 600 mg PO TIDCM [facility] Last Admin: 08/16/19 08:51 Dose: 600 mg Documented by: Glucagon () 1 mg IM .X1 PRN PRN Reason: Hypoglycemia Hydromorphone HCl (Dilaudid Inj) 1 mg IV Q3H PRN PRN PRN Reason: Pain Score 6-10/10 Last Admin: 08/16/19 04:33 Dose: 1 mg Documented by: Sodium Chloride () 1,000 mls @ 30 mls/hr IV .[id number] [facility] Last Admin: 08/15/19 14:44 Dose: 30 mls/hr Documented by: Sodium Chloride () 250 mls @ 15 mls/hr IV .[id number] PRN PRN Reason: Saline Flush Last Admin: 08/15/19 22:23 Dose: 15 mls/hr Documented by: Sodium Chloride () 250 mls @ 15 mls/hr IV .[id number] PRN PRN Reason: Additional IVPB Infusion Vancomycin IV Pharmacy to Dose (1 ea/ Sodium Chloride) 500 mls @ 250 mls/hr IV PRN PRN; Protocol PRN Reason: Rx to Dose Piperacillin Sod/Tazobactam (Sod 3.375 gm/ Sodium Chloride) 50 mls @ 12.5 mls/hr IV Q8 [facility] Last Infusion: 08/16/19 08:33 Dose: Infused Documented by: Vancomycin HCl 1,250 mg/ (Sodium Chloride) 275 mls @ 167 mls/hr IV Q12H [facility] Last Infusion: 08/15/19 23:31 Dose: Infused Documented by: Ibuprofen (Motrin) 800 mg PO TID [facility] Last Admin: 08/16/19 04:36 Dose: 800 mg Documented by: Ipratropium [place] (Atrovent) 0.5 mg INHALATION Q6HWA.RT [facility] Last Admin: 08/16/19 07:27 Dose: 0.5 mg Documented by: Metoprolol Tartrate (Lopressor (Beta Joo)) 50 mg PO BID [facility] Last Admin: 08/16/19 08:51 Dose: 50 mg Documented by: Multivitamins (Multivitamin) 1 tablet PO DAILY@0800 [facility] Last Admin: 08/16/19 08:51 Dose: 1 tablet Documented by: Ondansetron HCl (Zofran) 4 mg IV Q8H PRN PRN PRN Reason: NAUSEA/VOMITING Pantoprazole Sodium (Protonix) 40 mg PO DAILY [facility] Last Admin: 08/16/19 08:51 Dose: 40 mg Documented by: Sodium Chloride () 10 - 40 ml IV UD PRN PRN Reason: SALINE FLUSH Last Admin: 08/15/19 14:54 Dose: 10 ml Documented by: Sodium Hypochlorite (Dakins Solution 0.25% (1/2 Strength)) 1 applic TOPICAL BID [facility]; Protocol Last Admin: 08/15/19 22:19 Dose: 1 applicatio Documented by: Medical Necessity - Tobacco Use Smoking Status: Former smoker Assessment/Plan All Active Problems Skin necrosis (Acute) Candidal skin infection (Acute) Infection and inflammatory reaction due to internal left knee prosthesis, initial encounter (Acute) Skin ulcer of left thigh with fat layer exposed (Acute) MRSA bacteremia (Acute) Pneumonia (Acute) SBO (small bowel obstruction) (Acute) Hypotension (Acute) Hyponatremia (Acute) Skin necrosis (Acute) Candidal skin infection (Acute) Infection and inflammatory reaction due to internal left knee prosthesis, initial encounter (Acute) Skin ulcer of left thigh with fat layer exposed (Acute) MRSA bacteremia (Acute) Pneumonia (Acute) SBO (small bowel obstruction) (Acute) Hypotension (Acute) Hyponatremia (Acute) 1. Recurrent right ischial pressure sore, Stage IV. 2. 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 3. Osteomyelitis. 4. MRSA. 5. Necrotic left ischial pressure sore, Stage IV. 6. History of anal CA treated with chemotherapy and radiation therapy. 7. Anemia of chronic disease. Continue Vancomycin and Zosyn. Operative cultures preliminary right ischium tissue show MRSA and E coli thus far. Left tissue shows MRSA and Corynebacterium species. Bilateral bone preliminary cultures show MRSA and Corynebacterium. Pathology is pending. Anticipate increased metabolic demands from the infection and from the large wounds. Prealbumin is 8.4. Encourage nutritional supplementation with protein to help the healing process. Continue Dakin's dressing changes daily. His Hgb is 7.7. Will continue to observe. No active bleeding noted in the wounds. ECF evaluation in process. After discharge will followup at [facility].
--- NOTE | 2019-08-16 10:30 | CASEMGMT ---
Addendum entered by Shannon Whitaker 08/16/19 13:25: Return call from [facility] and they do have beds available. Referral faxed and will await return call with determination if they can accept pt. ANGEL Diaz Original Note: Social Work SW met with pt in room and discussed SNF options. Pt choosing [facility]. Phone call to [facility] and VM left inquiring about bed availability. SW will await return call. ANGEL Diaz
[2019-08-16 10:51] LABS: Vancomycin, Trough Level 17.1 ug/mL (5.0-15.0)
--- NOTE | 2019-08-16 12:06 | PCM.RX.CS ---
Consult Pharmacy has been consulted to manage selected antiobiotic: Vancomycin Type of Consult: Follow-up Suspected Infection: Skin/Soft tissue, Osteomyelitis Labs: Sodium 139 mmol/L (136-145) 08/16/19 06:09 Potassium 3.6 mmol/L (3.5-5.1) 08/16/19 06:09 Chloride 105 mmol/L (98-107) 08/16/19 06:09 Carbon Dioxide 29.0 mmol/L (21.0-32.0) 08/16/19 06:09 Anion Gap 5 (5-15) 08/16/19 06:09 BUN 11 mg/dL (7-18) 08/16/19 06:09 Creatinine 0.63 mg/dL (0.70-1.30) L 08/16/19 06:09 Est GFR (MDRD) Af Amer 164 mL/min (>60) 08/16/19 06:09 Est GFR (MDRD) Non-Af 135 mL/min (>60) 08/16/19 06:09 BUN/Creatinine Ratio 17.4 RATIO (10-20) 08/16/19 06:09 Glucose 113 mg/dL (74-106) H 08/16/19 06:09 Vancomycin Trough 17.1 ug/mL (5.0-15.0) H 08/16/19 09:42 Microbiology: Microbiology 08/13/19 15:28 Bone - Other Gram Stain - Final 08/13/19 15:28 Bone - Other Wound Culture - Preliminary Meth. resistant Staph. aureus Corynebacterium species 08/13/19 15:28 Bone - Other Anaerobic Culture - Preliminary Checking for anaerobes, further studies to follow. 08/13/19 15:28 Tissue - Other Gram Stain - Final 08/13/19 15:28 Tissue - Other Wound Culture - Preliminary Meth. resistant Staph. aureus Escherichia coli Gram positive jesus 08/13/19 15:28 Tissue - Other Anaerobic Culture - Preliminary Checking for anaerobes, further studies to follow. 08/13/19 15:28 Tissue - Other Gram Stain - Final 08/13/19 15:28 Tissue - Other Wound Culture - Final Meth. resistant Staph. aureus Corynebacterium species 08/13/19 15:28 Tissue - Other Anaerobic Culture - Preliminary Checking for anaerobes, further studies to follow. 08/13/19 15:28 Bone - Other Gram Stain - Final 08/13/19 15:28 Bone - Other Wound Culture - Preliminary Meth. resistant Staph. aureus Corynebacterium species 08/13/19 15:28 Bone - Other Anaerobic Culture - Preliminary Checking for anaerobes, further studies to follow. 08/12/19 19:38 Blood Culture (Wb) - Anticubital Left Bacteria Detection (PCR) - Final Meth. resistant Staph. aureus 08/12/19 19:38 Blood Culture (Wb) - Anticubital Left Blood Culture - Preliminary Meth. resistant Staph. aureus Goal Trough: 15-20 mcg/mL Pharmacy Plan for Drug Dosing: VANCOMYCIN LEVEL RECEIVED Current Vancomycin Dose: 1250mg IV Q12h Number of Doses Received: 4 Vancomycin Level: 17.1 Hours Since Last Dose: 12 Renal Function: 0.63 Renal Function Trend: stable Lab/Micro: (+) MRSA in wound cultures Vancomycin Plan/Comments: Trough drawn 12hrs from last dose administered, trough resulted in a value of 17.1 (goal 15-20). Continue current dose and check trough in 4 days per protocol. Pending Level: 08/20/19 @[id number] Pharmacy Service will continue to monitor and adjust dosing as required.
[2019-08-16] MEDS: 0.9% Saline Lock 10 ML Syringe IV ×3 (12:29→15:10)
--- NOTE | 2019-08-16 14:49 | PCM.PN.ID ---
Subjective: Feeling ok, picc placed today, no fever - Physical Exam Vitals/I&O's: Vital Signs Temp Pulse Resp BP Pulse Ox 98.8 F 70 18 141/57 H 95 08/16/19 08:08 08/16/19 08:51 08/16/19 08:08 08/16/19 08:08 08/16/19 08:08 Oxygen Flow Rate (L/min) 2 Oxygen Delivery Method Nasal Cannula Weight: 71.1 kg Body Mass Index (BMI) 24.5 Intake and Output for Last 24 Hours 08/14/19 08/15/19 08/16/19 23:59 23:59 23:59 Intake Total 3636.75 / 3636.75 2321.58 / 2671.58 2103.5 / 2103.5 Output Total 3150 / 3150 2150 / 3050 2080 / 2080 Balance 486.75 / 486.75 171.58 / -378.42 23.5 / 23.5 General: Alert, Cooperative, No apparent distress Lungs: Clear to auscultation, Normal air movement Cardiovascular: Regular rate, Regular Rhythm Abdomen: Soft, Non Tender, Non-Distended Skin: Ulcer/ Wound Microbiology Past 72 Hours 08/13/19 15:28 Tissue - Other Gram Stain - Final 08/13/19 15:28 Tissue - Other Wound Culture - Preliminary Meth. resistant Staph. aureus Escherichia coli Gram positive jesus 08/13/19 15:28 Tissue - Other Anaerobic Culture - Preliminary Checking for anaerobes, further studies to follow. 08/14/19 15:40 Blood Culture (Wb) - Left Hand Blood Culture - Preliminary No growth in 48 hours. 08/13/19 15:28 Bone - Other Gram Stain - Final 08/13/19 15:28 Bone - Other Wound Culture - Preliminary Meth. resistant Staph. aureus Corynebacterium species 08/13/19 15:28 Bone - Other Anaerobic Culture - Preliminary Checking for anaerobes, further studies to follow. 08/13/19 15:28 Tissue - Other Gram Stain - Final 08/13/19 15:28 Tissue - Other Wound Culture - Final Meth. resistant Staph. aureus Corynebacterium species 08/13/19 15:28 Tissue - Other Anaerobic Culture - Preliminary Checking for anaerobes, further studies to follow. 08/13/19 15:28 Bone - Other Gram Stain - Final 08/13/19 15:28 Bone - Other Wound Culture - Preliminary Meth. resistant Staph. aureus Corynebacterium species 08/13/19 15:28 Bone - Other Anaerobic Culture - Preliminary Checking for anaerobes, further studies to follow. 08/12/19 19:38 Blood Culture (Wb) - Anticubital Left Bacteria Detection (PCR) - Final Meth. resistant Staph. aureus 08/12/19 19:38 Blood Culture (Wb) - Anticubital Left Blood Culture - Preliminary Meth. resistant Staph. aureus Laboratory Results 08/16/19 06:09: WBC 6.7, RBC 3.25 L, Hgb 7.7 L, Hct 26.4 L, MCV 81.2, MCH 23.7 L, MCHC 29.2 L, RDW Std Deviation 58.0 H, RDW Coeff of Rosendo 19.9 H, Plt Count 455 H, MPV 7.8 08/16/19 06:09: Sodium 139, Potassium 3.6, Chloride 105, Carbon Dioxide 29.0, Anion Gap 5, BUN 11, Creatinine 0.63 L, Estim Creat Clear Calc 109.29, Est GFR (MDRD) Af Amer 164, Est GFR (MDRD) Non-Af 135, BUN/Creatinine Ratio 17.4, Glucose 113 H, Calcium 8.3 L, Prealbumin 8.4 L 08/16/19 09:42: Vancomycin Trough 17.1 H Current Medications Amlodipine Besylate (Norvasc) 5 mg PO DAILY [facility] Last Admin: 08/16/19 08:51 Dose: 5 mg Documented by: Ascorbic Acid (Vitamin C) 500 mg PO DAILY@0800 [facility] Last Admin: 08/16/19 08:51 Dose: 500 mg Documented by: Bupropion HCl (Wellbutrin Xl) 300 mg PO QHS [facility] Last Admin: 08/15/19 22:15 Dose: 300 mg Documented by: Buspirone HCl (Buspar) 5 mg PO TID [facility] Last Admin: 08/16/19 04:36 Dose: 5 mg Documented by: Cholecalciferol (Vitamin D (25mcg)) 1,000 unit PO DAILY [facility] Last Admin: 08/16/19 08:51 Dose: 1,000 unit Documented by: Dextrose (D50w Syringe) 0 gm IV X1 PRN; Protocol PRN Reason: Hypoglycemia Diazepam (Valium) 5 mg PO 4X/DAY PRN PRN PRN Reason: SPASMS Last Admin: 08/15/19 22:05 Dose: 5 mg Documented by: Diphenhydramine HCl (Benadryl) 25 mg IV Q6H PRN PRN PRN Reason: PRURITIS Last Admin: 08/16/19 04:32 Dose: 25 mg Documented by: Doxazosin Mesylate (Cardura) 2 mg PO QHS [facility] Last Admin: 08/15/19 22:15 Dose: 2 mg Documented by: Ezetimibe (Zetia) 10 mg PO DAILY [facility] Last Admin: 08/16/19 08:51 Dose: 10 mg Documented by: Enoxaparin Sodium (Lovenox) 40 mg SC DAILY [facility] Last Admin: 08/16/19 08:51 Dose: 40 mg Documented by: Escitalopram Oxalate (Lexapro) 10 mg PO DAILY [facility] Last Admin: 08/16/19 08:51 Dose: 10 mg Documented by: Ferrous Gluconate (Ferrous Gluconate) 324 mg PO BIDCM [facility] Last Admin: 08/16/19 08:51 Dose: 324 mg Documented by: Fluticasone Propionate (Flonase Nasal [place]) 2 spray NASAL QHS [facility] Last Admin: 08/15/19 22:06 Dose: 2 sprays Documented by: Gabapentin (Neurontin) 600 mg PO TIDCM [facility] Last Admin: 08/16/19 12:29 Dose: 600 mg Documented by: Glucagon () 1 mg IM .X1 PRN PRN Reason: Hypoglycemia Hydromorphone HCl (Dilaudid Inj) 1 mg IV Q3H PRN PRN PRN Reason: Pain Score 6-10/10 Last Admin: 08/16/19 12:29 Dose: 1 mg Documented by: Sodium Chloride () 1,000 mls @ 30 mls/hr IV .[id number] [facility] Last Infusion: 08/16/19 11:36 Dose: 30 mls/hr Documented by: Sodium Chloride () 250 mls @ 15 mls/hr IV .[id number] PRN PRN Reason: Saline Flush Last Admin: 08/15/19 22:23 Dose: 15 mls/hr Documented by: Sodium Chloride () 250 mls @ 15 mls/hr IV .[id number] PRN PRN Reason: Additional IVPB Infusion Vancomycin IV Pharmacy to Dose (1 ea/ Sodium Chloride) 500 mls @ 250 mls/hr IV PRN PRN; Protocol PRN Reason: Rx to Dose Piperacillin Sod/Tazobactam (Sod 3.375 gm/ Sodium Chloride) 50 mls @ 12.5 mls/hr IV Q8 [facility] Last Infusion: 08/16/19 08:33 Dose: Infused Documented by: Vancomycin HCl 1,250 mg/ (Sodium Chloride) 275 mls @ 167 mls/hr IV Q12H [facility] Last Infusion: 08/16/19 11:36 Dose: Infused Documented by: Ibuprofen (Motrin) 800 mg PO TID [facility] Last Admin: 08/16/19 04:36 Dose: 800 mg Documented by: Ipratropium [place] (Atrovent) 0.5 mg INHALATION Q6HWA.RT [facility] Last Admin: 08/16/19 13:10 Dose: Not Given Documented by: Metoprolol Tartrate (Lopressor (Beta Joo)) 50 mg PO BID [facility] Last Admin: 08/16/19 08:51 Dose: 50 mg Documented by: Multivitamins (Multivitamin) 1 tablet PO DAILY@0800 [facility] Last Admin: 08/16/19 08:51 Dose: 1 tablet Documented by: Nutritional Formula ([place]uy - [place] Flavor) 1 packet PO BIDCM [facility] Nutritional Formula (Lactose Free) (Ensure Enlive) 120 ml PO 4X/DAY [facility] Last Admin: 08/16/19 11:18 Dose: Not Given Documented by: Ondansetron HCl (Zofran) 4 mg IV Q8H PRN PRN PRN Reason: NAUSEA/VOMITING Pantoprazole Sodium (Protonix) 40 mg PO DAILY [facility] Last Admin: 08/16/19 08:51 Dose: 40 mg Documented by: Sodium Chloride () 10 - 40 ml IV UD PRN PRN Reason: SALINE FLUSH Last Admin: 08/16/19 12:29 Dose: 10 ml Documented by: Sodium Hypochlorite (Dakins Solution 0.25% (1/2 Strength)) 1 applic TOPICAL BID [facility]; Protocol Last Admin: 08/16/19 09:57 Dose: 1 applicatio Documented by: Medical Necessity - Tobacco Use Smoking Status: Former smoker Route of nutrition/ use of supplements: [] Nutritional Intake: [] IV Site: [] Walker Catheter: [] - Assessment/Plan Antibiotics: [] Assessment/Plan: [] Active and Suspected Problems Chronic osteomyelitis of right pelvic region (Acute) Pressure injury of right buttock, stage 2 (Acute) Right ischial pressure sore, 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 Mesa. Prior cxs with MRSA, PsA, proteus, corynebacteria. Cont vanc/zosyn. COVID neg. Will repeat bcx. TTE neg for veg. Vanc JYOTI was 2. Requested micro release dapto susc and sendout for ceftaroline. Bcx now neg at 48 hours. Plan at discharge will be 6 weeks of iv abx. Will follow
[2019-08-16] MEDS: 0.9% Normal Saline 1,000 ML 30 ML IV (15:09)
--- NOTE | 2019-08-16 16:34 | CASEMGMT ---
Social Work Phone call to [facility] and message left with no return call. Phone call a second time and told admissions had left for the day and no determination on acceptance to facility had been made. SW informed pt and will follow up on Monday for SNF placement. Plan: [facility], Pending acceptance and ANGEL Rao
[2019-08-16] MEDS: diazePAM 5 MG Tablet PO (20:43)
[2019-08-16] MEDS: Doxazosin 1 MG Tablet 2 MG PO (21:18)
[2019-08-16] MEDS: buPROPion (XL) 300 MG TABLET.XL PO (21:18)
[2019-08-16] MEDS: Fluticasone 0.05% 1 SPRAY NASAL.SRY 2 SPRAY NASAL (21:19)
[2019-08-17] VITALS (7 sets, daily range): BP systolic 130–146; BP diastolic 53–63; PULSE 63–79; RESP 16–18; TEMP 36.9–37.1; O2SAT 90–93
[2019-08-17] MEDS: HYDROmorphone 1 MG/ML Syringe IV ×4 (02:07→22:56)
[2019-08-17] MEDS: Ibuprofen 400 MG Tablet 800 MG PO ×3 (06:30→23:08)
[2019-08-17] MEDS: busPIRone 5 MG Tablet PO ×3 (06:30→23:08)
[2019-08-17] MEDS: Ipratropium 0.5 MG/2.5 ML SOLUTION INHALATION ×2 (06:49→19:36)
--- NOTE | 2019-08-17 07:07 | PN_ITS ---
Reason for Visit: Infected decubitus ulcers and osteomyelitis Subjective: Patient seen reports relatively more comfortable night compared to the day prior. Had a PICC line placed. Case management on board with plans for patient to be transferred to assisted facility pending insurance presets possibly on 08/18/2019. Objective: GENERAL: cooperative HEENT: Atraumatic; EYES; Anicteric, Normal Conjunctiva NECK; supple, normal thyroid, RESPIRATORY: Diminished to auscultation CARDIOVASCULAR: Regular S1 S2, GI: soft, normoactive bowel sounds, : No Renal angle tenderness; EXTREMITIES: No edema, no clubbing, NEURO: Awake; no lateralizing signs. SKIN: No Rash PSYCH; Flat affect Vitals/I&O's: Vital Signs Temp Pulse Resp BP Pulse Ox 98.8 F 79 18 134/61 H 92 08/17/19 02:05 08/17/19 02:05 08/17/19 02:05 08/17/19 02:05 08/17/19 02:05 Oxygen Flow Rate (L/min) 2 Oxygen Delivery Method Room Air Weight: 71.1 kg Body Mass Index (BMI) 24.5 Intake and Output for Last 24 Hours 08/15/19 08/16/19 08/17/19 23:59 23:59 23:59 Intake Total 2321.58 / 2671.58 3227.75 / 4027.75 1122.75 / 1122.75 Output Total 2150 / 3050 2480 / 3330 2450 / 2450 Balance 171.58 / -378.42 747.75 / 697.75 -1327.25 / -1327.25 Microbiology Past 72 Hours 08/13/19 15:28 Tissue - Other Gram Stain - Final 08/13/19 15:28 Tissue - Other Wound Culture - Preliminary Meth. resistant Staph. aureus Escherichia coli Gram positive jesus 08/13/19 15:28 Tissue - Other Anaerobic Culture - Preliminary Checking for anaerobes, further studies to follow. 08/14/19 15:40 Blood Culture (Wb) - Left Hand Blood Culture - Preliminary No growth in 48 hours. 08/13/19 15:28 Bone - Other Gram Stain - Final 08/13/19 15:28 Bone - Other Wound Culture - Preliminary Meth. resistant Staph. aureus Corynebacterium species 08/13/19 15:28 Bone - Other Anaerobic Culture - Preliminary Checking for anaerobes, further studies to follow. 08/13/19 15:28 Tissue - Other Gram Stain - Final 08/13/19 15:28 Tissue - Other Wound Culture - Final Meth. resistant Staph. aureus Corynebacterium species 08/13/19 15:28 Tissue - Other Anaerobic Culture - Preliminary Checking for anaerobes, further studies to follow. 08/13/19 15:28 Bone - Other Gram Stain - Final 08/13/19 15:28 Bone - Other Wound Culture - Preliminary Meth. resistant Staph. aureus Corynebacterium species 08/13/19 15:28 Bone - Other Anaerobic Culture - Preliminary Checking for anaerobes, further studies to follow. 08/12/19 19:38 Blood Culture (Wb) - Anticubital Left Bacteria Detection (PCR) - Final Meth. resistant Staph. aureus 08/12/19 19:38 Blood Culture (Wb) - Anticubital Left Blood Culture - Preliminary Meth. resistant Staph. aureus Laboratory Results 08/16/19 09:42: Vancomycin Trough 17.1 H Current Medications Amlodipine Besylate (Norvasc) 5 mg PO DAILY [facility] Last Admin: 08/16/19 08:51 Dose: 5 mg Documented by: Ascorbic Acid (Vitamin C) 500 mg PO DAILY@0800 [facility] Last Admin: 08/16/19 08:51 Dose: 500 mg Documented by: Bupropion HCl (Wellbutrin Xl) 300 mg PO QHS [facility] Last Admin: 08/16/19 21:18 Dose: 300 mg Documented by: Buspirone HCl (Buspar) 5 mg PO TID [facility] Last Admin: 08/17/19 06:30 Dose: 5 mg Documented by: Cholecalciferol (Vitamin D (25mcg)) 1,000 unit PO DAILY [facility] Last Admin: 08/16/19 08:51 Dose: 1,000 unit Documented by: Dextrose (D50w Syringe) 0 gm IV X1 PRN; Protocol PRN Reason: Hypoglycemia Diazepam (Valium) 5 mg PO 4X/DAY PRN PRN PRN Reason: SPASMS Last Admin: 08/16/19 20:43 Dose: 5 mg Documented by: Diphenhydramine HCl (Benadryl) 25 mg IV Q6H PRN PRN PRN Reason: PRURITIS Last Admin: 06/05/20 21:50 Dose: 25 mg Documented by: Doxazosin Mesylate (Cardura) 2 mg PO QHS [facility] Last Admin: 08/16/19 21:18 Dose: 2 mg Documented by: Ezetimibe (Zetia) 10 mg PO DAILY [facility] Last Admin: 08/16/19 08:51 Dose: 10 mg Documented by: Enoxaparin Sodium (Lovenox) 40 mg SC DAILY [facility] Last Admin: 08/16/19 08:51 Dose: 40 mg Documented by: Escitalopram Oxalate (Lexapro) 10 mg PO DAILY [facility] Last Admin: 08/16/19 08:51 Dose: 10 mg Documented by: Ferrous Gluconate (Ferrous Gluconate) 324 mg PO BIDCM [facility] Last Admin: 08/16/19 18:29 Dose: 324 mg Documented by: Fluticasone Propionate (Flonase Nasal [place]) 2 spray NASAL QHS [facility] Last Admin: 08/16/19 21:19 Dose: 2 sprays Documented by: Gabapentin (Neurontin) 600 mg PO TIDCM [facility] Last Admin: 08/16/19 18:29 Dose: 600 mg Documented by: Glucagon () 1 mg IM .X1 PRN PRN Reason: Hypoglycemia Hydromorphone HCl (Dilaudid Inj) 1 mg IV Q3H PRN PRN PRN Reason: Pain Score 6-10/10 Last Admin: 08/17/19 02:07 Dose: 1 mg Documented by: Sodium Chloride () 1,000 mls @ 30 mls/hr IV .[id number] [facility] Last Infusion: 08/16/19 23:29 Dose: 30 mls/hr Documented by: Sodium Chloride () 250 mls @ 15 mls/hr IV .[id number] PRN PRN Reason: Saline Flush Last Infusion: 08/17/19 06:30 Dose: 0 mls/hr Documented by: Sodium Chloride () 250 mls @ 15 mls/hr IV .[id number] PRN PRN Reason: Additional IVPB Infusion Vancomycin IV Pharmacy to Dose (1 ea/ Sodium Chloride) 500 mls @ 250 mls/hr IV PRN PRN; Protocol PRN Reason: Rx to Dose Piperacillin Sod/Tazobactam (Sod 3.375 gm/ Sodium Chloride) 50 mls @ 12.5 mls/hr IV Q8 [facility] Last Admin: 08/17/19 06:30 Dose: 12.5 mls/hr Documented by: Vancomycin HCl 1,250 mg/ (Sodium Chloride) 275 mls @ 167 mls/hr IV Q12H [facility] Last Infusion: 08/16/19 23:29 Dose: Infused Documented by: Ibuprofen (Motrin) 800 mg PO TID [facility] Last Admin: 08/17/19 06:30 Dose: 800 mg Documented by: Ipratropium [place] (Atrovent) 0.5 mg INHALATION Q6HWA.RT [facility] Last Admin: 08/17/19 06:49 Dose: 0.5 mg Documented by: Metoprolol Tartrate (Lopressor (Beta Joo)) 50 mg PO BID [facility] Last Admin: 08/16/19 21:18 Dose: 50 mg Documented by: Multivitamins (Multivitamin) 1 tablet PO DAILY@0800 [facility] Last Admin: 08/16/19 08:51 Dose: 1 tablet Documented by: Nutritional Formula (Chuy - [place] Flavor) 1 packet PO BIDCM [facility] Last Admin: 08/16/19 18:29 Dose: 1 packet Documented by: Nutritional Formula (Lactose Free) (Ensure Enlive) 120 ml PO 4X/DAY [facility] Last Admin: 08/16/19 21:19 Dose: Not Given Documented by: Ondansetron HCl (Zofran) 4 mg IV Q8H PRN PRN PRN Reason: NAUSEA/VOMITING Pantoprazole Sodium (Protonix) 40 mg PO DAILY [facility] Last Admin: 08/16/19 08:51 Dose: 40 mg Documented by: Sodium Chloride () 10 - 40 ml IV UD PRN PRN Reason: SALINE FLUSH Last Admin: 08/16/19 15:10 Dose: 10 ml Documented by: Sodium Hypochlorite (Dakins Solution 0.25% (1/2 Strength)) 1 applic TOPICAL BID [facility]; Protocol Last Admin: 08/16/19 21:19 Dose: 1 applicatio Documented by: Medical Necessity - Tobacco Use Smoking Status: Former smoker Assessment/Plan All Active Problems Skin necrosis (Acute) Candidal skin infection (Acute) Infection and inflammatory reaction due to internal left knee prosthesis, initial encounter (Acute) Skin ulcer of left thigh with fat layer exposed (Acute) MRSA bacteremia (Acute) Pneumonia (Acute) SBO (small bowel obstruction) (Acute) Hypotension (Acute) Hyponatremia (Acute) Patient is a 64-year-old gentleman with chronic osteomyelitis and decubitus ulcer involving the right buttocks who presented to the emergency department with right hip pain 1. Chronic osteomyelitis and pressure ulcer right buttock -CT obtained on admission demonstrated Large deep decubitus ulcer posterior to the right ischial tuberosity with associated sclerosis and osseous fragmentation and erosion, increased in extent and severity in the interval. Admitted to the regular nursing floor with consultation placed to plastic surgery for debrideme nt. Patient was started on broad-spectrum antibiotic consultation placed infectious disease ?08/14/2019Patient underwent Excision recurrent right ischial pressure sore, Stage IV, with partial ostectomy for osteomyelitis, Excision necrotic left ischial pressure sore, Stage IV, with partial ostectomy for osteomyelitis. Procedure performed by Dr. Mesa on 08/13/2019. Wound and blood cultures so far positive for MRSA. Patient on broad-spectrum antibiotic therapy. Consult was also placed to infectious disease the day prior. -08/15/2019; pain relatively controlled. Results of patient cultures both blood and tissue reviewed currently on appropriate antibiotic therapy. Management deferred to infectious disease. ?08/16/2019. An order was given for patient to have a PICC line placed -08/17/2019: Patient to be discharged to a assisted facility with 6-week antibiotic therapy 2. Hypertension - Blood pressure controlled, home medications continued with dose adjustment as needed 3. GERD ?On PPI 4. COPD ?Not in exacerbation 5. Depression with anxiety - Patient is on Wellbutrin acceptable continue 6. Dyslipidemia ?Patient on Zetia 7. Anemia ?Secondary to anemia of chronic disorder monitoring H&H with plan to transfuse if patient becomes symptomatic or hemoglobin falls below 7 -08/14/2019 patient hemoglobin dropped to 7.2. Patient was deemed to be symptomatic and ended up being transfused with PRBC ?08/15/2019; hemoglobin up to 7.8 8. DVT prophylaxis - On enoxaparin 9. Physical deconditioning - Requested for PT OT eval and secondary social studies teacher to assist with discharge planning Advance planning; did discuss with the patient and family regarding advanced directives as well as CODE STATUS. Did explain the various scenarios involved ( FULL CODE, DNR CCA, DNR CCA with no intubation, and DNR CC and what each meant) patient elected remain full code with CPR and intubation if indicated. Order was placed. Time spent on discussion 18 minutes. Inpatient E&M: 62144 Subs Hosp L2 Procedures: 83414 Advncd Care Plan 30 Min
[2019-08-17] MEDS: Ascorbic Acid 500 MG Tablet PO (09:20)
[2019-08-17] MEDS: Escitalopram Oxalate 10 MG Tablet PO (09:20)
[2019-08-17] MEDS: Multivitamins,Therapeutic Tablet 1 TABLET PO (09:20)
[2019-08-17] MEDS: Ferrous Gluconate 324 MG Tablet PO ×2 (09:20→17:05)
[2019-08-17] MEDS: Ezetimibe 10 MG Tablet PO (09:20)
[2019-08-17] MEDS: Enoxaparin 40 MG/0.4 ML Syringe SC (09:20)
[2019-08-17] MEDS: amLODIPine 5 MG Tablet PO (09:20)
[2019-08-17] MEDS: Gabapentin 600 MG Tablet PO ×3 (09:20→17:05)
[2019-08-17] MEDS: Pantoprazole Sodium 40 MG Tablet PO (09:20)
[2019-08-17] MEDS: Metoprolol Tartrate 50 MG Tablet PO ×2 (09:20→23:08)
[2019-08-17] MEDS: DiphenhydrAMINE 50 MG/ML Syringe 25 MG IV (10:11)
[2019-08-17] MEDS: DAKIN'S SOL HALF STRENGTH (=0.25%) 1 APPLIC TOPICAL ×2 (10:40→23:15)
[2019-08-17] MEDS: oxyCODONE 5 MG Tablet PO (17:10)
[2019-08-17] MEDS: 0.9% Saline Lock 10 ML Syringe IV (22:57)
[2019-08-17] MEDS: Fluticasone 0.05% 1 SPRAY NASAL.SRY 2 SPRAY NASAL (23:03)
[2019-08-17] MEDS: Doxazosin 1 MG Tablet 2 MG PO (23:08)
[2019-08-17] MEDS: buPROPion (XL) 300 MG TABLET.XL PO (23:08)
[2019-08-18] VITALS (8 sets, daily range): BP systolic 113–159; BP diastolic 62–75; PULSE 58–78; RESP 16–18; TEMP 36.6–37; O2SAT 89–94
[2019-08-18] MEDS: DiphenhydrAMINE 50 MG/ML Syringe 25 MG IV ×3 (00:18→20:28)
[2019-08-18] MEDS: 0.9% Saline Lock 10 ML Syringe IV ×2 (00:19→03:50)
[2019-08-18] MEDS: 0.9% Normal Saline 1,000 ML 30 ML IV (03:53)
[2019-08-18] MEDS: Ibuprofen 400 MG Tablet 800 MG PO ×3 (05:33→20:44)
[2019-08-18] MEDS: busPIRone 5 MG Tablet PO ×3 (05:33→20:43)
[2019-08-18] MEDS: Ipratropium 0.5 MG/2.5 ML SOLUTION INHALATION ×2 (07:25→19:38)
--- NOTE | 2019-08-18 07:25 | CPS ---
Pt continues to be noncompliant with oxygen. Sat is 88% but he won't wear NC.
--- NOTE | 2019-08-18 07:33 | PCM.PN.HOSP ---
Reason for Visit: Wound infection, osteomyelitis Subjective: Patient's bone cultures positive for Meth. resistant Staph. aureus, Corynebacterium species, Escherichia coli patient on appropriate antibiotic therapy plan is for patient to be discharged to [facility] facility for long-term antibiotic therapy Objective: GENERAL: cooperative HEENT: Atraumatic; EYES; Anicteric, Normal Conjunctiva NECK; supple, normal thyroid, RESPIRATORY: Diminished to auscultation CARDIOVASCULAR: Regular S1 S2, GI: soft, normoactive bowel sounds, : No Renal angle tenderness; EXTREMITIES: No edema, no clubbing, NEURO: Awake; no lateralizing signs. SKIN: No Rash PSYCH; Flat affect Vitals/I&O's: Vital Signs Temp Pulse Resp BP Pulse Ox 98.6 F 76 18 159/65 H 94 08/18/19 03:55 08/18/19 03:55 08/18/19 03:55 08/18/19 03:55 08/18/19 03:55 Oxygen Flow Rate (L/min) 2 Oxygen Delivery Method Room Air Weight: 71.1 kg Body Mass Index (BMI) 24.5 Intake and Output for Last 24 Hours 08/16/19 08/17/19 08/18/19 23:59 23:59 23:59 Intake Total 3227.75 / 4027.75 2727.75 / 3027.75 1041.5 / 1041.5 Output Total 2480 / 3330 3650 / 3650 550 / 550 Balance 747.75 / 697.75 -922.25 / -622.25 491.5 / 491.5 Microbiology Past 72 Hours 08/13/19 15:28 Bone - Other Gram Stain - Final 08/13/19 15:28 Bone - Other Wound Culture - Preliminary Meth. resistant Staph. aureus Corynebacterium species GNR lactose presiding steward 08/13/19 15:28 Bone - Other Anaerobic Culture - Preliminary Checking for anaerobes, further studies to follow. 08/13/19 15:28 Tissue - Other Gram Stain - Final 08/13/19 15:28 Tissue - Other Wound Culture - Final Meth. resistant Staph. aureus Corynebacterium species 08/13/19 15:28 Tissue - Other Anaerobic Culture - Preliminary Checking for anaerobes, further studies to follow. 08/13/19 15:28 Bone - Other Gram Stain - Final 08/13/19 15:28 Bone - Other Wound Culture - Final Meth. resistant Staph. aureus Corynebacterium species 08/13/19 15:28 Bone - Other Anaerobic Culture - Preliminary Checking for anaerobes, further studies to follow. 08/15/19 09:30 Blood Culture (Wb) - Left Hand Blood Culture - Preliminary No growth in 48 hours. 08/14/19 15:40 Blood Culture (Wb) - Left Hand Blood Culture - Preliminary No growth in 48 hours. 08/13/19 15:28 Tissue - Other Gram Stain - Final 08/13/19 15:28 Tissue - Other Wound Culture - Final Meth. resistant Staph. aureus Corynebacterium species 08/13/19 15:28 Tissue - Other Anaerobic Culture - Preliminary Checking for anaerobes, further studies to follow. 08/12/19 19:38 Blood Culture (Wb) - Anticubital Left Bacteria Detection (PCR) - Final Meth. resistant Staph. aureus 08/12/19 19:38 Blood Culture (Wb) - Anticubital Left Blood Culture - Preliminary Meth. resistant Staph. aureus Current Medications Amlodipine Besylate (Norvasc) 5 mg PO DAILY [facility] Last Admin: 08/17/19 09:20 Dose: 5 mg Documented by: Ascorbic Acid (Vitamin C) 500 mg PO DAILY@0800 [facility] Last Admin: 08/17/19 09:20 Dose: 500 mg Documented by: Bupropion HCl (Wellbutrin Xl) 300 mg PO QHS [facility] Last Admin: 08/17/19 23:08 Dose: 300 mg Documented by: Buspirone HCl (Buspar) 5 mg PO TID [facility] Last Admin: 08/18/19 05:33 Dose: 5 mg Documented by: Cholecalciferol (Vitamin D (25mcg)) 1,000 unit PO DAILY [facility] Last Admin: 08/17/19 09:20 Dose: 1,000 unit Documented by: Dextrose (D50w Syringe) 0 gm IV X1 PRN; Protocol PRN Reason: Hypoglycemia Diazepam (Valium) 5 mg PO 4X/DAY PRN PRN PRN Reason: SPASMS Last Admin: 08/16/19 20:43 Dose: 5 mg Documented by: Diphenhydramine HCl (Benadryl) 25 mg IV Q6H PRN PRN PRN Reason: PRURITIS Last Admin: 08/18/19 00:18 Dose: 25 mg Documented by: Doxazosin Mesylate (Cardura) 2 mg PO QHS [facility] Last Admin: 08/17/19 23:08 Dose: 2 mg Documented by: Ezetimibe (Zetia) 10 mg PO DAILY [facility] Last Admin: 08/17/19 09:20 Dose: 10 mg Documented by: Enoxaparin Sodium (Lovenox) 40 mg SC DAILY [facility] Last Admin: 08/17/19 09:20 Dose: 40 mg Documented by: Escitalopram Oxalate (Lexapro) 10 mg PO DAILY [facility] Last Admin: 08/17/19 09:20 Dose: 10 mg Documented by: Ferrous Gluconate (Ferrous Gluconate) 324 mg PO BIDCM [facility] Last Admin: 08/17/19 17:05 Dose: 324 mg Documented by: Fluticasone Propionate (Flonase Nasal [place]) 2 spray NASAL QHS [facility] Last Admin: 08/17/19 23:03 Dose: 2 sprays Documented by: Gabapentin (Neurontin) 600 mg PO TIDCM [facility] Last Admin: 08/17/19 17:05 Dose: 600 mg Documented by: Glucagon () 1 mg IM .X1 PRN PRN Reason: Hypoglycemia Hydromorphone HCl (Dilaudid Inj) 1 mg IV Q3H PRN PRN PRN Reason: Pain Score 6-10/10 Last Admin: 08/17/19 22:56 Dose: 1 mg Documented by: Sodium Chloride () 1,000 mls @ 30 mls/hr IV .[id number] [facility] Last Admin: 08/18/19 03:53 Dose: 30 mls/hr Documented by: Sodium Chloride () 250 mls @ 15 mls/hr IV .[id number] PRN PRN Reason: Saline Flush Last Infusion: 08/17/19 23:00 Dose: Infused Documented by: Sodium Chloride () 250 mls @ 15 mls/hr IV .[id number] PRN PRN Reason: Additional IVPB Infusion Vancomycin IV Pharmacy to Dose (1 ea/ Sodium Chloride) 500 mls @ 250 mls/hr IV PRN PRN; Protocol PRN Reason: Rx to Dose Piperacillin Sod/Tazobactam (Sod 3.375 gm/ Sodium Chloride) 50 mls @ 12.5 mls/hr IV Q8 [facility] Last Admin: 08/18/19 05:33 Dose: 12.5 mls/hr Documented by: Vancomycin HCl 1,250 mg/ (Sodium Chloride) 275 mls @ 167 mls/hr IV Q12H [facility] Last Infusion: 08/18/19 00:57 Dose: Infused Documented by: Ibuprofen (Motrin) 800 mg PO TID [facility] Last Admin: 08/18/19 05:33 Dose: 800 mg Documented by: Ipratropium [place] (Atrovent) 0.5 mg INHALATION Q6HWA.RT [facility] Last Admin: 08/17/19 19:36 Dose: 0.5 mg Documented by: Metoprolol Tartrate (Lopressor (Beta Joo)) 50 mg PO BID [facility] Last Admin: 08/17/19 23:08 Dose: 50 mg Documented by: Multivitamins (Multivitamin) 1 tablet PO DAILY@0800 [facility] Last Admin: 08/17/19 09:20 Dose: 1 tablet Documented by: Nutritional Formula ([place] - [facility] Flavor) 1 packet PO BIDCM [facility] Last Admin: 08/17/19 17:05 Dose: 1 packet Documented by: Nutritional Formula (Lactose Free) (Ensure Enlive) 120 ml PO 4X/DAY [facility] Last Admin: 08/17/19 23:02 Dose: Not Given Documented by: Ondansetron HCl (Zofran) 4 mg IV Q8H PRN PRN PRN Reason: NAUSEA/VOMITING Oxycodone HCl (Oxyir) 5 mg PO Q4H PRN PRN PRN Reason: Pain Score 6-10/10 Last Admin: 08/17/19 17:10 Dose: 5 mg Documented by: Pantoprazole Sodium (Protonix) 40 mg PO DAILY [facility] Last Admin: 08/17/19 09:20 Dose: 40 mg Documented by: Sodium Chloride () 10 - 40 ml IV UD PRN PRN Reason: SALINE FLUSH Last Admin: 08/18/19 03:50 Dose: 10 ml Documented by: Sodium Hypochlorite (Dakins Solution 0.25% (1/2 Strength)) 1 applic TOPICAL BID [facility]; Protocol Last Admin: 08/17/19 23:15 Dose: 1 applicatio Documented by: STROKE Vital Signs/Narrative: Vital Signs Temp Pulse Resp BP Pulse Ox 08/18/19 03:55 98.6 F 76 18 159/65 H 94 Medical Necessity - Tobacco Use Smoking Status: Former smoker Assessment/Plan All Active Problems Skin necrosis (Acute) Candidal skin infection (Acute) Infection and inflammatory reaction due to internal left knee prosthesis, initial encounter (Acute) Skin ulcer of left thigh with fat layer exposed (Acute) MRSA bacteremia (Acute) Pneumonia (Acute) SBO (small bowel obstruction) (Acute) Hypotension (Acute) Hyponatremia (Acute) Patient is a 64-year-old gentleman with chronic osteomyelitis and decubitus ulcer involving the right buttocks who presented to the emergency department with right hip pain 1. Chronic osteomyelitis and pressure ulcer right buttock -CT obtained on admission demonstrated Large deep decubitus ulcer posterior to the right ischial tuberosity with associated sclerosis and osseous fragmentation and erosion, increased in extent and severity in the interval. Admitted to the regular nursing floor with consultation placed to plastic surgery for debridement. Patient was started on broad-spectrum antibiotic consultation placed infectious disease ?08/14/2019Patient underwent Excision recurrent right ischial pressure sore, Stage IV, with partial ostectomy for osteomyelitis, Excision necrotic left ischial pressure sore, Stage IV, with partial ostectomy for osteomyelitis. Procedure performed by Dr. Mesa on 08/13/2019. Wound and blood cultures so far positive for MRSA. Patient on broad-spectrum antibiotic therapy. Consult was also placed to infectious disease the day prior. -08/15/2019; pain relatively controlled. Results of patient cultures both blood and tissue reviewed currently on appropriate antibiotic therapy. Management deferred to infectious disease. ?08/16/2019. An order was given for patient to have a PICC line placed -08/17/2019: Patient to be discharged to a [facility] facility with 6-week antibiotic therapy 08/18/2019; Patient's bone cultures positive for Meth. resistant Staph. aureus, Corynebacterium species, Escherichia coli patient on appropriate antibiotic therapy plan is for patient to be discharged to [facility] facility for long-term antibiotic therapy 2. Hypertension - Blood pressure controlled, home medications continued with dose adjustment as needed 3. GERD ?On PPI 4. COPD ?Not in exacerbation 5. Depression with anxiety - Patient is on Wellbutrin acceptable continue 6. Dyslipidemia ?Patient on Zetia 7. Anemia ?Secondary to anemia of chronic disorder monitoring H&H with plan to transfuse if patient becomes symptomatic or hemoglobin falls below 7 -08/14/2019 patient hemoglobin dropped to 7.2. Patient was deemed to be symptomatic and ended up being transfused with PRBC ?08/15/2019; hemoglobin up to 7.8 8. DVT prophylaxis - On enoxaparin 9. Physical deconditioning - Requested for PT OT eval and hospital social worker to assist with discharge planning Inpatient E&M: 19809 Subs Hosp L2
[2019-08-18 08:05] LABS: Hematocrit 27.9 % (40-54); Hemoglobin 8.1 g/dL (13.0-16.5); Mean Corpuscular Hgb 23.6 pg (27.0-32.0); Mean Corpuscular Volume 81.3 fL (80-94); Mean Platelet Vol. 7.9 fl (6.2-12.0); POSITIVE MORPHOLOGY YES; Platelet Count 471 K/mm3 (150-450); RBC Distribution Width CV 20.8 % (11.6-14.6); RBC Distribution Width SD 59.8 fl (35.1-43.9); Red Blood Count 3.43 M/mm3 (4.6-6.2); White Blood Count 7.1 K/mm3 (4.4-11.0)
[2019-08-18 08:18] LABS: Scan Indicated on CBC? Y/N YES- FLAGS NOTED
[2019-08-18 08:36] LABS: Anion Gap 7 (5-15); BUN 17 mg/dL (7-18); BUN/Creat Ratio 29.1 RATIO (10-20); Calcium,Total 8.4 mg/dL (8.5-10.1); Chloride 104 mmol/L (98-107); Creatinine, Serum 0.58 mg/dL (0.70-1.30); EST Glomerular Filtration Rate 148 mL/min (>60); Est Glom Filt Rate - Afr Amer 179 mL/min (>60); Estimated Creatinine Clearance 118.71 ml/min; Glucose 93 mg/dL (74-106); Magnesium 1.8 mg/dL (1.6-2.6); Potassium 3.5 mmol/L (3.5-5.1); Sodium Level 141 mmol/L (136-145)
[2019-08-18 08:38] LABS: Differential Comment SCANNED
[2019-08-18] MEDS: Ferrous Gluconate 324 MG Tablet PO ×2 (09:33→16:38)
[2019-08-18] MEDS: Enoxaparin 40 MG/0.4 ML Syringe SC (09:33)
[2019-08-18] MEDS: Ezetimibe 10 MG Tablet PO (09:33)
[2019-08-18] MEDS: amLODIPine 5 MG Tablet PO (09:33)
[2019-08-18] MEDS: Pantoprazole Sodium 40 MG Tablet PO (09:33)
[2019-08-18] MEDS: Ascorbic Acid 500 MG Tablet PO (09:33)
[2019-08-18] MEDS: Gabapentin 600 MG Tablet PO ×3 (09:33→16:38)
[2019-08-18] MEDS: Escitalopram Oxalate 10 MG Tablet PO (09:33)
[2019-08-18] MEDS: Multivitamins,Therapeutic Tablet 1 TABLET PO (09:33)
[2019-08-18] MEDS: Metoprolol Tartrate 50 MG Tablet PO ×2 (09:34→20:44)
[2019-08-18] MEDS: DAKIN'S SOL HALF STRENGTH (=0.25%) 1 APPLIC TOPICAL ×2 (10:29→20:31)
[2019-08-18] MEDS: oxyCODONE 5 MG Tablet PO ×3 (10:44→20:12)
[2019-08-18] MEDS: HYDROmorphone 1 MG/ML Syringe IV ×2 (16:38→22:00)
[2019-08-18] MEDS: Fluticasone 0.05% 1 SPRAY NASAL.SRY 2 SPRAY NASAL (20:43)
[2019-08-18] MEDS: Doxazosin 1 MG Tablet 2 MG PO (20:43)
[2019-08-18] MEDS: buPROPion (XL) 300 MG TABLET.XL PO (20:44)
[2019-08-19] VITALS (11 sets, daily range): BP systolic 129–148; BP diastolic 59–71; PULSE 65–82; RESP 16–20; TEMP 36.6–37.3; O2SAT 88–94
[2019-08-19] MEDS: oxyCODONE 5 MG Tablet PO ×4 (00:47→19:51)
[2019-08-19] MEDS: diazePAM 5 MG Tablet PO ×3 (00:47→22:41)
[2019-08-19] MEDS: busPIRone 5 MG Tablet PO ×3 (05:13→21:44)
[2019-08-19] MEDS: DiphenhydrAMINE 50 MG/ML Syringe 25 MG IV ×2 (05:13→21:37)
[2019-08-19] MEDS: Ibuprofen 400 MG Tablet 800 MG PO ×3 (05:13→21:44)
[2019-08-19 05:22] LABS: Hematocrit 33.5 % (40-54); Hemoglobin 9.6 g/dL (13.0-16.5); Mean Corp Hgb Conc 28.7 g/dL (32-36); Mean Corpuscular Volume 80.1 fL (80-94); Mean Platelet Vol. 7.7 fl (6.2-12.0); POSITIVE MORPHOLOGY YES; Platelet Count 519 K/mm3 (150-450); RBC Distribution Width CV 21.2 % (11.6-14.6); RBC Distribution Width SD 58.7 fl (35.1-43.9); Red Blood Count 4.18 M/mm3 (4.6-6.2); White Blood Count 8.2 K/mm3 (4.4-11.0)
[2019-08-19 05:30] LABS: Scan Indicated on CBC? Y/N YES- FLAGS NOTED
[2019-08-19 05:35] LABS: Anion Gap 5 (5-15); BUN 21 mg/dL (7-18); BUN/Creat Ratio 26.2 RATIO (10-20); Calcium,Total 8.4 mg/dL (8.5-10.1); Chloride 98 mmol/L (98-107); EST Glomerular Filtration Rate 103 mL/min (>60); Est Glom Filt Rate - Afr Amer 125 mL/min (>60); Estimated Creatinine Clearance 86.07 ml/min; Glucose 107 mg/dL (74-106); Magnesium 1.6 mg/dL (1.6-2.6); Potassium 3.7 mmol/L (3.5-5.1); Sodium Level 135 mmol/L (136-145)
[2019-08-19 06:00] LABS: Differential Comment SCANNED
[2019-08-19] MEDS: Ipratropium 0.5 MG/2.5 ML SOLUTION INHALATION ×2 (07:03→19:10)
--- NOTE | 2019-08-19 07:05 | CPS ---
pt continues to refuse to wear oxygen. he has repeatedly had the importance of wearing it to him but he is noncompliant.
[2019-08-19] MEDS: Escitalopram Oxalate 10 MG Tablet PO (08:41)
[2019-08-19] MEDS: Metoprolol Tartrate 50 MG Tablet PO ×2 (08:41→21:44)
[2019-08-19] MEDS: Ascorbic Acid 500 MG Tablet PO (08:41)
[2019-08-19] MEDS: Ezetimibe 10 MG Tablet PO (08:41)
[2019-08-19] MEDS: amLODIPine 5 MG Tablet PO (08:41)
[2019-08-19] MEDS: Enoxaparin 40 MG/0.4 ML Syringe SC (08:42)
[2019-08-19] MEDS: Ferrous Gluconate 324 MG Tablet PO ×2 (08:42→16:51)
[2019-08-19] MEDS: Pantoprazole Sodium 40 MG Tablet PO (08:42)
[2019-08-19] MEDS: Multivitamins,Therapeutic Tablet 1 TABLET PO (08:42)
[2019-08-19] MEDS: Gabapentin 600 MG Tablet PO ×3 (08:42→16:51)
[2019-08-19] MEDS: DAKIN'S SOL HALF STRENGTH (=0.25%) 1 APPLIC TOPICAL ×2 (10:15→22:42)
[2019-08-19] MEDS: HYDROmorphone 1 MG/ML Syringe IV ×2 (10:19→21:34)
[2019-08-19] MEDS: 0.9% Saline Lock 10 ML Syringe IV (10:20)
--- NOTE | 2019-08-19 11:16 | NURSING ---
wound photo: bilateral ischium
[2019-08-19 11:41] LABS: Bedside Glucose 113 mg/dL (70-110)
--- NOTE | 2019-08-19 12:01 | CASEMGMT ---
Addendum entered by Caroline Og 08/19/19 15:56: SHAHANA received call from Tala at [facility] stating clinically they are able to accept but will not have a bed available until . SHAHANA updated Tala that medically pt is ready so this worker will need to look for a different SNF that is able to accept pt. Tala states understanding, states if pt wishes to transfer to [facility] once he is at a different SNF he is more than willing to do so. SHAHANA will touch base with pt tomorrow in regards to SNF as this worker is leaving for the day. Plan: SNF pending acceptance and pre-cert Addendum entered by Caroline Og 08/19/19 15:20: SHAHANA received message from Tala at [facility] stating she is running pt's medications to determine costs. SHAHANA received IV antibiotics scripts for pt. SHAHANA faxed scripts to [facility] and placed a call to Tala to update her on pt's medications. SHAHANA waiting for call back from Tala. Original Note: Social Work Note SHAHANA placed a call to Skylar at [facility]. Skylar states she is not able to accept pt. SW in to speak with pt and updated pt that [facility] is not able to accept pt. Pt states try [facility] in [place]. SHAHANA placed a call to Tala in admissions at [facility] in [place]. SHAHANA faxed referral. Plan: [facility] in [place] pending acceptance and pre-cert Caroline Og CHANGE MANAGEMENT EXPERT, [employer]PERATOR MAINTAINER
--- NOTE | 2019-08-19 15:25 | PN.ID_ITS ---
Subjective: Feeling ok, no fever, no n/v/d. - Physical Exam Vitals/I&O's: Vital Signs Temp Pulse Resp BP Pulse Ox 97.9 F 80 16 144/71 H 93 08/19/19 14:12 08/19/19 14:17 08/19/19 14:12 08/19/19 14:12 08/19/19 14:12 Oxygen Flow Rate (L/min) 2 Oxygen Delivery Method Room Air Weight: 71.1 kg Body Mass Index (BMI) 24.5 Intake and Output for Last 24 Hours 08/17/19 08/18/19 08/19/19 23:59 23:59 23:59 Intake Total 2727.75 / 3027.75 3112.75 / 3112.75 1723 / 1723 Output Total 3650 / 3650 2950 / 2950 900 / 900 Balance -922.25 / -622.25 162.75 / 162.75 823 / 823 General: Alert, Cooperative, No apparent distress Lungs: Clear to auscultation, Normal air movement Cardiovascular: Regular rate, Regular Rhythm Abdomen: Soft, Non Tender, Non-Distended Skin: No rashes, Ulcer/ Wound Microbiology Past 72 Hours 08/13/19 15:28 Bone - Other Gram Stain - Final 08/13/19 15:28 Bone - Other Wound Culture - Final Escherichia coli Meth. resistant Staph. aureus Corynebacterium species 08/13/19 15:28 Bone - Other Anaerobic Culture - Preliminary Gram negative jesus Anaerobic cocci 08/13/19 15:28 Tissue - Other Gram Stain - Final 08/13/19 15:28 Tissue - Other Wound Culture - Final Meth. resistant Staph. aureus Corynebacterium species 08/13/19 15:28 Tissue - Other Anaerobic Culture - Preliminary Gram negative jesus Anaerobic cocci 08/13/19 15:28 Bone - Other Gram Stain - Final 08/13/19 15:28 Bone - Other Wound Culture - Final Meth. resistant Staph. aureus Corynebacterium species 08/13/19 15:28 Bone - Other Anaerobic Culture - Preliminary Gram negative jesus Anaerobic cocci 08/13/19 15:28 Tissue - Other Gram Stain - Final 08/13/19 15:28 Tissue - Other Wound Culture - Final Meth. resistant Staph. aureus Corynebacterium species 08/13/19 15:28 Tissue - Other Anaerobic Culture - Preliminary Gram negative jesus 08/12/19 18:45 Blood Culture (Wb) - Right Forearm Blood Culture - Final No growth in 5 days. 08/12/19 19:38 Blood Culture (Wb) - Anticubital Left Bacteria Detection (PCR) - Final Meth. resistant Staph. aureus 08/12/19 19:38 Blood Culture (Wb) - Anticubital Left Blood Culture - Preliminary Meth. resistant Staph. aureus 08/16/19 14:50 Blood Culture (Wb) - Left Hand Blood Culture - Preliminary No growth in 48 hours. 08/15/19 09:30 Blood Culture (Wb) - Left Hand Blood Culture - Preliminary No growth in 48 hours. 08/14/19 15:40 Blood Culture (Wb) - Left Hand Blood Culture - Preliminary No growth in 48 hours. Laboratory Results 08/19/19 05:05: WBC 8.2, RBC 4.18 L, Hgb 9.6 L, Hct 33.5 L, MCV 80.1, MCH 23.0 L , MCHC 28.7 L, RDW Std Deviation 58.7 H, RDW Coeff of Rosendo 21.2 H, Plt Count 519 H, MPV 7.7, Differential Comment SCANNED 08/19/19 05:05: Sodium 135 L, Potassium 3.7, Chloride 98, Carbon Dioxide 32.0, Anion Gap 5, BUN 21 H, Creatinine 0.80, Estim Creat Clear Calc 86.07, Est GFR (MDRD) Af Amer 125, Est GFR (MDRD) Non-Af 103, BUN/Creatinine Ratio 26.2 H, Glucose 107 H, Calcium 8.4 L, Magnesium 1.6 08/19/19 11:38: POC Glucose 113 H Current Medications Amlodipine Besylate (Norvasc) 5 mg PO DAILY [facility] Last Admin: 08/19/19 08:41 Dose: 5 mg Documented by: Ascorbic Acid (Vitamin C) 500 mg PO DAILY@0800 [facility] Last Admin: 08/19/19 08:41 Dose: 500 mg Documented by: Bupropion HCl (Wellbutrin Xl) 300 mg PO QHS [facility] Last Admin: 08/18/19 20:44 Dose: 300 mg Documented by: Buspirone HCl (Buspar) 5 mg PO TID [facility] Last Admin: 08/19/19 14:10 Dose: 5 mg Documented by: Cholecalciferol (Vitamin D (25mcg)) 1,000 unit PO DAILY [facility] Last Admin: 08/19/19 10:20 Dose: 1,000 unit Documented by: Dextrose (D50w Syringe) 0 gm IV X1 PRN; Protocol PRN Reason: Hypoglycemia Diazepam (Valium) 5 mg PO 4X/DAY PRN PRN PRN Reason: SPASMS Last Admin: 08/19/19 00:47 Dose: 5 mg Documented by: Diphenhydramine HCl (Benadryl) 25 mg IV Q6H PRN PRN PRN Reason: PRURITIS Last Admin: 08/19/19 05:13 Dose: 25 mg Documented by: Doxazosin Mesylate (Cardura) 2 mg PO QHS [facility] Last Admin: 08/18/19 20:43 Dose: 2 mg Documented by: Ezetimibe (Zetia) 10 mg PO DAILY [facility] Last Admin: 08/19/19 08:41 Dose: 10 mg Documented by: Enoxaparin Sodium (Lovenox) 40 mg SC DAILY [facility] Last Admin: 08/19/19 08:42 Dose: 40 mg Documented by: Escitalopram Oxalate (Lexapro) 10 mg PO DAILY [facility] Last Admin: 08/19/19 08:41 Dose: 10 mg Documented by: Ferrous Gluconate (Ferrous Gluconate) 324 mg PO BIDCM [facility] Last Admin: 08/19/19 08:42 Dose: 324 mg Documented by: Fluticasone Propionate (Flonase Nasal [place]) 2 spray NASAL QHS [facility] Last Admin: 08/18/19 20:43 Dose: 2 sprays Documented by: Gabapentin (Neurontin) 600 mg PO TIDCM [facility] Last Admin: 08/19/19 13:05 Dose: 600 mg Documented by: Glucagon () 1 mg IM .X1 PRN PRN Reason: Hypoglycemia Hydromorphone HCl (Dilaudid Inj) 1 mg IV Q3H PRN PRN PRN Reason: Pain Score 6-10/10 Last Admin: 08/19/19 10:19 Dose: 1 mg Documented by: Sodium Chloride () 1,000 mls @ 30 mls/hr IV .[id number] [facility] Last Infusion: 08/18/19 23:40 Dose: 30 mls/hr Documented by: Sodium Chloride () 250 mls @ 15 mls/hr IV .[id number] PRN PRN Reason: Saline Flush Last Infusion: 08/19/19 05:13 Dose: 0 mls/hr Documented by: Sodium Chloride () 250 mls @ 15 mls/hr IV .[id number] PRN PRN Reason: Additional IVPB Infusion Vancomycin IV Pharmacy to Dose (1 ea/ Sodium Chloride) 500 mls @ 250 mls/hr IV PRN PRN; Protocol PRN Reason: Rx to Dose Vancomycin HCl 1,250 mg/ (Sodium Chloride) 275 mls @ 167 mls/hr IV Q12H [facility] Last Infusion: 08/19/19 13:08 Dose: Infused Documented by: Meropenem 1 gm/ Sodium (Chloride) 120 mls @ 33 mls/hr IV Q8 [facility] Last Admin: 08/19/19 15:17 Dose: 33 mls/hr Documented by: Ibuprofen (Motrin) 800 mg PO TID [facility] Last Admin: 08/19/19 14:10 Dose: 800 mg Documented by: Ipratropium [place] (Atrovent) 0.5 mg INHALATION Q6HWA.RT [facility] Last Admin: 08/19/19 13:30 Dose: Not Given Documented by: Metoprolol Tartrate (Lopressor (Beta Joo)) 50 mg PO BID [facility] Last Admin: 08/19/19 08:41 Dose: 50 mg Documented by: Multivitamins (Multivitamin) 1 tablet PO DAILY@0800 [facility] Last Admin: 08/19/19 08:42 Dose: 1 tablet Documented by: Nutritional Formula ([place] - [place] Flavor) 1 packet PO BIDCM [facility] Last Admin: 08/19/19 08:41 Dose: 1 packet Documented by: Nystatin (Mycostatin Powder) 1 applic TOPICAL BID [facility]; Protocol Ondansetron HCl (Zofran) 4 mg IV Q8H PRN PRN PRN Reason: NAUSEA/VOMITING Oxycodone HCl (Oxyir) 5 mg PO Q4H PRN PRN PRN Reason: Pain Score 6-10/10 Last Admin: 08/19/19 15:20 Dose: 5 mg Documented by: Pantoprazole Sodium (Protonix) 40 mg PO DAILY [facility] Last Admin: 08/19/19 08:42 Dose: 40 mg Documented by: Sodium Chloride () 10 - 40 ml IV UD PRN PRN Reason: SALINE FLUSH Last Admin: 08/19/19 10:20 Dose: 20 ml Documented by: Sodium Hypochlorite (Dakins Solution 0.25% (1/2 Strength)) 1 applic TOPICAL BID [facility]; Protocol Last Admin: 08/19/19 10:15 Dose: 1 applicatio Documented by: Medical Necessity - Tobacco Use Smoking Status: Former smoker Route of nutrition/ use of supplements: [] Nutritional Intake: [] IV Site: [] Walker Catheter: [] - Assessment/Plan Antibiotics: [] Assessment/Plan: [] Active and Suspected Problems Chronic osteomyelitis of right pelvic region (Acute) Pressure injury of right buttock, stage 2 (Acute) Right ischial pressure sore, 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 Mesa. Prior cxs with MRSA, PsA, proteus, corynebacteria. Surg cx now also with ESBL ecoli. COVID neg. TTE neg for veg. Vanc JYOTI was 2. Bcx remains neg. Cont vanc, change zosyn to meropenem. Plan at discharge will be 6 weeks of iv abx with vanc and ertapenem, stop date 09/24/19, weekly bmp, cbc, LFT, vanc trough, and esr. Will need dose of ertapenem here prior to discharge. ID followup in 2 weeks. 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
--- NOTE | 2019-08-19 17:26 | PN_ITS ---
Subjective: Patient was seen and examined today, he does not complain of any fevers or chills, we are currently awaiting placement in a senior living facility for the patient. I reviewed infectious disease notes today. - Physical Exam Vitals/I&O's: Vital Signs Temp Pulse Resp BP Pulse Ox 97.9 F 80 16 144/71 H 93 08/19/19 14:12 08/19/19 14:17 08/19/19 14:12 08/19/19 14:12 08/19/19 14:12 Oxygen Flow Rate (L/min) 2 Oxygen Delivery Method Room Air Weight: 71.1 kg Body Mass Index (BMI) 24.5 Intake and Output for Last 24 Hours 08/17/19 08/18/19 08/19/19 23:59 23:59 23:59 Intake Total 2727.75 / 3027.75 3112.75 / 3112.75 1723 / 1723 Output Total 3650 / 3650 2950 / 2950 900 / 900 Balance -922.25 / -622.25 162.75 / 162.75 823 / 823 General: Alert, Oriented x3, Cooperative, No apparent distress, Well developed HEENT: Atraumatic, PERRLA, EOMI, Normocephalic Oral: Moist Mucosa Neck: Supple, No JVD, Trachea Midline, Thyroid Normal Size and Texture Lungs: Clear to auscultation, Normal air movement, No rhonchi, No wheeze, No rales Cardiovascular: Regular rate, Regular Rhythm, Normal S1, Normal S2, No murmurs Abdomen: Bowel Sounds Present, Soft, Non Tender, Non-Distended, No hernias noted, - - Colostomy is noted over the left lower abdomen Extremities: No clubbing, No cyanosis, No edema, Capillary Refill Less than 3 Seconds Skin: No rashes, - - There are surgical dressings over areas of his right ischial area and left initial areas, these dressings were not removed for inspection of the wounds in this area, there is an eschar noted over the left heel, there is also an eschar noted over the top of the right second toe Neurological: Cranial nerves II-XII grossly intact, Neuro grossly intact, Sensory exam intact to light touch and pain, Coordination normal Psych/Mental Status: Appropriate, Flat Affect, Alert and oriented to time, place, person, mood and affect Microbiology Past 72 Hours 08/13/19 15:28 Bone - Other Gram Stain - Final 08/13/19 15:28 Bone - Other Wound Culture - Final Escherichia coli Meth. resistant Staph. aureus Corynebacterium species 08/13/19 15:28 Bone - Other Anaerobic Culture - Preliminary Gram negative jesus Anaerobic cocci 08/13/19 15:28 Tissue - Other Gram Stain - Final 08/13/19 15:28 Tissue - Other Wound Culture - Final Meth. resistant Staph. aureus Corynebacterium species 08/13/19 15:28 Tissue - Other Anaerobic Culture - Preliminary Gram negative jesus Anaerobic cocci 08/13/19 15:28 Bone - Other Gram Stain - Final 08/13/19 15:28 Bone - Other Wound Culture - Final Meth. resistant Staph. aureus Corynebacterium species 08/13/19 15:28 Bone - Other Anaerobic Culture - Preliminary Gram negative jesus Anaerobic cocci 08/13/19 15:28 Tissue - Other Gram Stain - Final 08/13/19 15:28 Tissue - Other Wound Culture - Final Meth. resistant Staph. aureus Corynebacterium species 08/13/19 15:28 Tissue - Other Anaerobic Culture - Preliminary Gram negative jesus 08/12/19 18:45 Blood Culture (Wb) - Right Forearm Blood Culture - Final No growth in 5 days. 08/12/19 19:38 Blood Culture (Wb) - Anticubital Left Bacteria Detection (PCR) - Final Meth. resistant Staph. aureus 08/12/19 19:38 Blood Culture (Wb) - Anticubital Left Blood Culture - Preliminary Meth. resistant Staph. aureus 08/16/19 14:50 Blood Culture (Wb) - Left Hand Blood Culture - Preliminary No growth in 48 hours. 08/15/19 09:30 Blood Culture (Wb) - Left Hand Blood Culture - Preliminary No growth in 48 hours. Laboratory Results 08/19/19 05:05: WBC 8.2, RBC 4.18 L, Hgb 9.6 L, Hct 33.5 L, MCV 80.1, MCH 23.0 L , MCHC 28.7 L, RDW Std Deviation 58.7 H, RDW Coeff of Rosendo 21.2 H, Plt Count 519 H, MPV 7.7, Differential Comment SCANNED 08/19/19 05:05: Sodium 135 L, Potassium 3.7, Chloride 98, Carbon Dioxide 32.0, Anion Gap 5, BUN 21 H, Creatinine 0.80, Estim Creat Clear Calc 86.07, Est GFR (MDRD) Af Amer 125, Est GFR (MDRD) Non-Af 103, BUN/Creatinine Ratio 26.2 H, Glucose 107 H, Calcium 8.4 L, Magnesium 1.6 08/19/19 11:38: POC Glucose 113 H Current Medications Amlodipine Besylate (Norvasc) 5 mg PO DAILY [facility] Last Admin: 08/19/19 08:41 Dose: 5 mg Documented by: Ascorbic Acid (Vitamin C) 500 mg PO DAILY@0800 [facility] Last Admin: 08/19/19 08:41 Dose: 500 mg Documented by: Bupropion HCl (Wellbutrin Xl) 300 mg PO QHS [facility] Last Admin: 08/18/19 20:44 Dose: 300 mg Documented by: Buspirone HCl (Buspar) 5 mg PO TID [facility] Last Admin: 08/19/19 14:10 Dose: 5 mg Documented by: Cholecalciferol (Vitamin D (25mcg)) 1,000 unit PO DAILY [facility] Last Admin: 08/19/19 10:20 Dose: 1,000 unit Documented by: Dextrose (D50w Syringe) 0 gm IV X1 PRN; Protocol PRN Reason: Hypoglycemia Diazepam (Valium) 5 mg PO 4X/DAY PRN PRN PRN Reason: SPASMS Last Admin: 08/19/19 16:51 Dose: 5 mg Documented by: Diphenhydramine HCl (Benadryl) 25 mg IV Q6H PRN PRN PRN Reason: PRURITIS Last Admin: 08/19/19 05:13 Dose: 25 mg Documented by: Doxazosin Mesylate (Cardura) 2 mg PO QHS [facility] Last Admin: 08/18/19 20:43 Dose: 2 mg Documented by: Ezetimibe (Zetia) 10 mg PO DAILY [facility] Last Admin: 08/19/19 08:41 Dose: 10 mg Documented by: Enoxaparin Sodium (Lovenox) 40 mg SC DAILY [facility] Last Admin: 08/19/19 08:42 Dose: 40 mg Documented by: Escitalopram Oxalate (Lexapro) 10 mg PO DAILY [facility] Last Admin: 08/19/19 08:41 Dose: 10 mg Documented by: Ferrous Gluconate (Ferrous Gluconate) 324 mg PO BIDCM [facility] Last Admin: 08/19/19 16:51 Dose: 324 mg Documented by: Fluticasone Propionate (Flonase Nasal [place]) 2 spray NASAL QHS [facility] Last Admin: 08/18/19 20:43 Dose: 2 sprays Documented by: Gabapentin (Neurontin) 600 mg PO TIDCM [facility] Last Admin: 08/19/19 16:51 Dose: 600 mg Documented by: Glucagon () 1 mg IM .X1 PRN PRN Reason: Hypoglycemia Hydromorphone HCl (Dilaudid Inj) 1 mg IV Q3H PRN PRN PRN Reason: Pain Score 6-10/10 Last Admin: 08/19/19 10:19 Dose: 1 mg Documented by: Sodium Chloride () 1,000 mls @ 30 mls/hr IV .[id number] [facility] Last Infusion: 08/18/19 23:40 Dose: 30 mls/hr Documented by: Sodium Chloride () 250 mls @ 15 mls/hr IV .[id number] PRN PRN Reason: Saline Flush Last Infusion: 08/19/19 05:13 Dose: 0 mls/hr Documented by: Sodium Chloride () 250 mls @ 15 mls/hr IV .[id number] PRN PRN Reason: Additional IVPB Infusion Vancomycin IV Pharmacy to Dose (1 ea/ Sodium Chloride) 500 mls @ 250 mls/hr IV PRN PRN; Protocol PRN Reason: Rx to Dose Vancomycin HCl 1,250 mg/ (Sodium Chloride) 275 mls @ 167 mls/hr IV Q12H [facility] Last Infusion: 08/19/19 13:08 Dose: Infused Documented by: Meropenem 1 gm/ Sodium (Chloride) 120 mls @ 33 mls/hr IV Q8 [facility] Last Admin: 08/19/19 15:17 Dose: 33 mls/hr Documented by: Ibuprofen (Motrin) 800 mg PO TID [facility] Last Admin: 08/19/19 14:10 Dose: 800 mg Documented by: Ipratropium [place] (Atrovent) 0.5 mg INHALATION Q6HWA.RT [facility] Last Admin: 08/19/19 13:30 Dose: Not Given Documented by: Metoprolol Tartrate (Lopressor (Beta Joo)) 50 mg PO BID [facility] Last Admin: 08/19/19 08:41 Dose: 50 mg Documented by: Multivitamins (Multivitamin) 1 tablet PO DAILY@0800 [facility] Last Admin: 08/19/19 08:42 Dose: 1 tablet Documented by: Nutritional Formula (Chuy - Saffell Flavor) [facility] Last Admin: 08/19/19 16:52 Dose: 1 packet Documented by: Nystatin (Mycostatin Powder) 1 applic TOPICAL BID [facility]; Protocol Ondansetron HCl (Zofran) 4 mg IV Q8H PRN PRN PRN Reason: NAUSEA/VOMITING Oxycodone HCl (Oxyir) 5 mg PO Q4H PRN PRN PRN Reason: Pain Score 6-10/10 Last Admin: 08/19/19 15:20 Dose: 5 mg Documented by: Pantoprazole Sodium (Protonix) 40 mg PO DAILY [facility] Last Admin: 08/19/19 08:42 Dose: 40 mg Documented by: Sodium Chloride () 10 - 40 ml IV UD PRN PRN Reason: SALINE FLUSH Last Admin: 08/19/19 10:20 Dose: 20 ml Documented by: Sodium Hypochlorite (Dakins Solution 0.25% (1/2 Strength)) 1 applic TOPICAL BID [facility]; Protocol Last Admin: 08/19/19 10:15 Dose: 1 applicatio Documented by: Medical Necessity - Tobacco Use Smoking Status: Former smoker Assessment/Plan All Active Problems Skin necrosis (Acute) Candidal skin infection (Acute) Infection and inflammatory reaction due to internal left knee prosthesis, initial encounter (Acute) Skin ulcer of left thigh with fat layer exposed (Acute) MRSA bacteremia (Acute) Pneumonia (Acute) SBO (small bowel obstruction) (Acute) Hypotension (Acute) Hyponatremia (Acute) #1 osteomyelitis of the right pelvis-organisms E. coli methicillin-resistant staph aureus, B fragilis, corynebacterium-infectious disease is seeing patient and directing antibiotic coverage #2 pressure injury right and left ischium with infection-status post debridement 08/13/2019-organisms methicillin-resistant staph aureus, corynebacterium, B fragi lis, Prevotella-again antibiotic coverage per infectious diseases #3 essential hypertension #4 COPD #5 hyperlipidemia #6 chronic anemia-etiology unclear #7 depression/anxiety-patient is currently on Wellbutrin, BuSpar, and Valium #8 deconditioning-patient will need placement in a senior living facility for rehab services. Inpatient E&M: 90364 Subs Hosp L2
[2019-08-19] MEDS: 0.9% Normal Saline 1,000 ML 30 ML IV (19:51)
[2019-08-19] MEDS: Doxazosin 1 MG Tablet 2 MG PO (21:44)
[2019-08-19] MEDS: Nystatin Powder 15gm Bottle 1 APPLIC TOPICAL (21:45)
[2019-08-19] MEDS: Fluticasone 0.05% 1 SPRAY NASAL.SRY 2 SPRAY NASAL (21:46)
[2019-08-19] MEDS: buPROPion (XL) 300 MG TABLET.XL PO (22:41)
[2019-08-20] VITALS (9 sets, daily range): BP systolic 135–153; BP diastolic 61–77; PULSE 68–81; RESP 16–20; TEMP 36.9–37.2; O2SAT 89–94
[2019-08-20] MEDS: busPIRone 5 MG Tablet PO ×3 (05:44→22:05)
[2019-08-20] MEDS: Ibuprofen 400 MG Tablet 800 MG PO ×3 (05:44→22:05)
[2019-08-20] MEDS: oxyCODONE 5 MG Tablet PO ×5 (05:45→23:58)
[2019-08-20] MEDS: DiphenhydrAMINE 50 MG/ML Syringe 25 MG IV (06:10)
[2019-08-20 06:11] LABS: Hematocrit 31.5 % (40-54); Hemoglobin 9.1 g/dL (13.0-16.5); Mean Corp Hgb Conc 28.9 g/dL (32-36); Mean Corpuscular Hgb 23.5 pg (27.0-32.0); Mean Corpuscular Volume 81.2 fL (80-94); Mean Platelet Vol. 7.8 fl (6.2-12.0); POSITIVE MORPHOLOGY YES; Platelet Count 502 K/mm3 (150-450); RBC Distribution Width CV 20.8 % (11.6-14.6); RBC Distribution Width SD 59.4 fl (35.1-43.9); Red Blood Count 3.88 M/mm3 (4.6-6.2); White Blood Count 9.2 K/mm3 (4.4-11.0)
[2019-08-20 06:14] LABS: Scan Indicated on CBC? Y/N YES- FLAGS NOTED
[2019-08-20 06:18] LABS: Anion Gap 7 (5-15); BUN 18 mg/dL (7-18); Calcium,Total 8.6 mg/dL (8.5-10.1); Chloride 100 mmol/L (98-107); EST Glomerular Filtration Rate 143 mL/min (>60); Est Glom Filt Rate - Afr Amer 173 mL/min (>60); Estimated Creatinine Clearance 114.76 ml/min; Glucose 105 mg/dL (74-106); Potassium 3.6 mmol/L (3.5-5.1); Sodium Level 136 mmol/L (136-145)
[2019-08-20] MEDS: Ipratropium 0.5 MG/2.5 ML SOLUTION INHALATION (07:18)
--- NOTE | 2019-08-20 08:13 | CPS ---
pt continues to be noncompliant with wearing oxygen.
[2019-08-20] MEDS: Ezetimibe 10 MG Tablet PO (09:12)
[2019-08-20] MEDS: Metoprolol Tartrate 50 MG Tablet PO ×2 (09:12→22:05)
[2019-08-20] MEDS: Gabapentin 600 MG Tablet PO ×3 (09:12→16:57)
[2019-08-20] MEDS: Pantoprazole Sodium 40 MG Tablet PO (09:12)
[2019-08-20] MEDS: amLODIPine 5 MG Tablet PO (09:12)
[2019-08-20] MEDS: Multivitamins,Therapeutic Tablet 1 TABLET PO (09:13)
[2019-08-20] MEDS: Escitalopram Oxalate 10 MG Tablet PO (09:13)
[2019-08-20] MEDS: DAKIN'S SOL HALF STRENGTH (=0.25%) 1 APPLIC TOPICAL ×2 (09:13→22:09)
[2019-08-20] MEDS: Ascorbic Acid 500 MG Tablet PO (09:13)
[2019-08-20] MEDS: Enoxaparin 40 MG/0.4 ML Syringe SC (09:13)
[2019-08-20] MEDS: Ferrous Gluconate 324 MG Tablet PO ×2 (09:13→16:57)
[2019-08-20] MEDS: Nystatin Powder 15gm Bottle 1 APPLIC TOPICAL ×2 (09:15→22:09)
--- NOTE | 2019-08-20 10:11 | CASEMGMT ---
Social Work Note SW in to speak with pt. SHAHANA updated pt that [facility] doesn't have any beds available at this time. Pt states try [facility] in [place]. SHAHANA placed a call to Bernice at [facility] and provided referral. Bernice states she is not sure about bed availability but is willing to review referral. SHAHANA faxed referral. 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
[2019-08-20 10:18] LABS: Vancomycin, Trough Level 19.4 ug/mL (5.0-15.0)
--- NOTE | 2019-08-20 10:43 | PCM.RX.CS ---
Consult Pharmacy has been consulted to manage selected antiobiotic: Vancomycin Type of Consult: Follow-up Suspected Infection: Osteomyelitis Labs: Sodium 136 mmol/L (136-145) 08/20/19 05:35 Potassium 3.6 mmol/L (3.5-5.1) 08/20/19 05:35 Chloride 100 mmol/L (98-107) 08/20/19 05:35 Carbon Dioxide 29.0 mmol/L (21.0-32.0) 08/20/19 05:35 Anion Gap 7 (5-15) 08/20/19 05:35 BUN 18 mg/dL (7-18) 08/20/19 05:35 Creatinine 0.60 mg/dL (0.70-1.30) L 08/20/19 05:35 Est GFR (MDRD) Af Amer 173 mL/min (>60) 08/20/19 05:35 Est GFR (MDRD) Non-Af 143 mL/min (>60) 08/20/19 05:35 BUN/Creatinine Ratio 30.0 RATIO (10-20) H 08/20/19 05:35 Glucose 105 mg/dL (74-106) 08/20/19 05:35 Vancomycin Trough 19.4 ug/mL (5.0-15.0) H 08/20/19 09:40 Microbiology: Microbiology 08/13/19 15:28 Bone - Other Gram Stain - Final 08/13/19 15:28 Bone - Other Wound Culture - Final Escherichia coli Meth. resistant Staph. aureus Corynebacterium species 08/13/19 15:28 Bone - Other Anaerobic Culture - Final Bacteroides fragilis Anaerobic cocci 08/13/19 15:28 Tissue - Other Gram Stain - Final 08/13/19 15:28 Tissue - Other Wound Culture - Final Meth. resistant Staph. aureus Corynebacterium species 08/13/19 15:28 Tissue - Other Anaerobic Culture - Final Bacteroides fragilis Anaerobic cocci Prevotella melaninogenica 08/13/19 15:28 Bone - Other Gram Stain - Final 08/13/19 15:28 Bone - Other Wound Culture - Final Meth. resistant Staph. aureus Corynebacterium species 08/13/19 15:28 Bone - Other Anaerobic Culture - Final Bacteroides fragilis Anaerobic cocci 08/13/19 15:28 Tissue - Other Gram Stain - Final 08/13/19 15:28 Tissue - Other Wound Culture - Final Meth. resistant Staph. aureus Corynebacterium species 08/13/19 15:28 Tissue - Other Anaerobic Culture - Final Bacteroides fragilis 08/14/19 15:40 Blood Culture (Wb) - Left Hand Blood Culture - Final No growth in 5 days. 08/12/19 18:45 Blood Culture (Wb) - Right Forearm Blood Culture - Final No growth in 5 days. 08/12/19 19:38 Blood Culture (Wb) - Anticubital Left Bacteria Detection (PCR) - Final Meth. resistant Staph. aureus 08/12/19 19:38 Blood Culture (Wb) - Anticubital Left Blood Culture - Preliminary Meth. resistant Staph. aureus 08/16/19 14:50 Blood Culture (Wb) - Left Hand Blood Culture - Preliminary No growth in 48 hours. 08/15/19 09:30 Blood Culture (Wb) - Left Hand Blood Culture - Preliminary No growth in 48 hours. Goal Trough: 15-20 mcg/mL Pharmacy Plan for Drug Dosing: VANCOMYCIN LEVEL RECEIVED Current Vancomycin Dose: 1250mg q12h (10,22) Number of Doses Received: 12 Vancomycin Level: 19.4 Hours Since Last Dose: 12 Renal Function: 0.6 Renal Function Trend: steady Lab/Micro: Vancomycin Plan/Comments: reduce dose to 1000mg q12h. pts trough increased from 17.1 to 19.4. Pt looks to be slowly accumulating, will lower dose and recheck level 08/2130 Pending Level: 08/21 Pharmacy Service will continue to monitor and adjust dosing as required. Follow-Up Labs: Trough Vancomycin - 08/21
--- NOTE | 2019-08-20 13:00 | CHAPLAIN ---
Type of Pastoral Visit ___ Initial Visit ___ Follow-up Visit ___ On-call Visit ___ General Patient Visit ___ Spiritual Assessment ___ Family Conference ___ Bereavement ___ Rapid Response ___ Code Blue _x__ Other (describe below) Pastoral Care Referral From ___ Patient ___ Family ___ Nurse ___ Physician ___ Hiv Nurse ___ Gis Software Developer ___ Other (describe below) Sacrament/Intervention ___ Active listening ___ Anointing ___ Church ___ Bereavement ___ Communion ___ Becka exploration ___ ___ Life review ___ Prayer ___ Reconciliation ___ Sacrament of Sick ___ Supportive presence ___ Wedding _x__ Other (describe below) Pastoral Comments two attempts to visit patient in last two days; pt is sleeping both times and this stretch machine operator did not wake him
--- NOTE | 2019-08-20 13:06 | PCM.PN.SRG ---
Subjective: Post op #7 Objective: Patient sitting up in bed. - Physical Exam Vitals/I&O's: Vital Signs Temp Pulse Resp BP Pulse Ox 98.9 F 80 16 153/68 H 93 08/20/19 08:51 08/20/19 09:12 08/20/19 08:51 08/20/19 08:51 08/20/19 08:51 Oxygen Flow Rate (L/min) 2 Oxygen Delivery Method Room Air Weight: 156 lb 11.979 oz Body Mass Index (BMI) 24.5 Intake and Output for Last 24 Hours 08/18/19 08/19/19 08/20/19 23:59 23:59 23:59 Intake Total 3112.75 / 3112.75 2676.0 / 2976.0 780 / 780 Output Total 2950 / 2950 900 / 2800 2850 / 2850 Balance 162.75 / 162.75 1776.0 / 176.0 -2069 / -2069 General: Alert, Oriented x3, Cooperative HEENT: Atraumatic Oral: Moist Mucosa Lungs: Normal air movement Cardiovascular: Regular rate Abdomen: Soft, Non Tender Extremities: Capillary Refill Less than 3 Seconds Skin: Ulcer/ Wound - Bilateral ischial ulcer dressings are dry and intact, changed earlier today. No active bleeding. There is increasing pain of right groin/proximal thigh with increasing induration. No redness. It is located under a healed scarred area. Musculoskeletal: Tenderness Neurological: Neuro grossly intact Psych/Mental Status: Normal Affect, Appropriate Microbiology Past 72 Hours 08/15/19 09:30 Blood Culture (Wb) - Left Hand Blood Culture - Final No growth in 5 days. 08/13/19 15:28 Bone - Other Gram Stain - Final 08/13/19 15:28 Bone - Other Wound Culture - Final Escherichia coli Meth. resistant Staph. aureus Corynebacterium species 08/13/19 15:28 Bone - Other Anaerobic Culture - Final Bacteroides fragilis Anaerobic cocci 08/13/19 15:28 Tissue - Other Gram Stain - Final 08/13/19 15:28 Tissue - Other Wound Culture - Final Meth. resistant Staph. aureus Corynebacterium species 08/13/19 15:28 Tissue - Other Anaerobic Culture - Final Bacteroides fragilis Anaerobic cocci Prevotella melaninogenica 08/13/19 15:28 Bone - Other Gram Stain - Final 08/13/19 15:28 Bone - Other Wound Culture - Final Meth. resistant Staph. aureus Corynebacterium species 08/13/19 15:28 Bone - Other Anaerobic Culture - Final Bacteroides fragilis Anaerobic cocci 08/13/19 15:28 Tissue - Other Gram Stain - Final 08/13/19 15:28 Tissue - Other Wound Culture - Final Meth. resistant Staph. aureus Corynebacterium species 08/13/19 15:28 Tissue - Other Anaerobic Culture - Final Bacteroides fragilis 08/14/19 15:40 Blood Culture (Wb) - Left Hand Blood Culture - Final No growth in 5 days. 08/12/19 18:45 Blood Culture (Wb) - Right Forearm Blood Culture - Final No growth in 5 days. 08/12/19 19:38 Blood Culture (Wb) - Anticubital Left Bacteria Detection (PCR) - Final Meth. resistant Staph. aureus 08/12/19 19:38 Blood Culture (Wb) - Anticubital Left Blood Culture - Preliminary Meth. resistant Staph. aureus 08/16/19 14:50 Blood Culture (Wb) - Left Hand Blood Culture - Preliminary No growth in 48 hours. Laboratory Results 08/20/19 05:35: WBC 9.2, RBC 3.88 L, Hgb 9.1 L, Hct 31.5 L, MCV 81.2, MCH 23.5 L, MCHC 28.9 L, RDW Std Deviation 59.4 H, RDW Coeff of Rosendo 20.8 H, Plt Count 502 H, MPV 7.8, Differential Comment COMMENT 08/20/19 05:35: Sodium 136, Potassium 3.6, Chloride 100, Carbon Dioxide 29.0, Anion Gap 7, BUN 18, Creatinine 0.60 L, Estim Creat Clear Calc 114.76, Est GFR (MDRD) Af Amer 173, Est GFR (MDRD) Non-Af 143, BUN/Creatinine Ratio 30.0 H, Glucose 105, Calcium 8.6 08/20/19 09:40: Vancomycin Trough 19.4 H Current Medications Amlodipine Besylate (Norvasc) 5 mg PO DAILY [facility] Last Admin: 08/20/19 09:12 Dose: 5 mg Documented by: Ascorbic Acid (Vitamin C) 500 mg PO DAILY@0800 [facility] Last Admin: 08/20/19 09:13 Dose: 500 mg Documented by: Bupropion HCl (Wellbutrin Xl) 300 mg PO QHS [facility] Last Admin: 08/19/19 22:41 Dose: 300 mg Documented by: Buspirone HCl (Buspar) 5 mg PO TID [facility] Last Admin: 08/20/19 05:44 Dose: 5 mg Documented by: Cholecalciferol (Vitamin D (25mcg)) 1,000 unit PO DAILY [facility] Last Admin: 08/20/19 09:13 Dose: 1,000 unit Documented by: Dextrose (D50w Syringe) 0 gm IV X1 PRN; Protocol PRN Reason: Hypoglycemia Diazepam (Valium) 5 mg PO 4X/DAY PRN PRN PRN Reason: SPASMS Last Admin: 08/19/19 22:41 Dose: 5 mg Documented by: Diphenhydramine HCl (Benadryl) 25 mg IV Q6H PRN PRN PRN Reason: PRURITIS Last Admin: 08/20/19 06:10 Dose: 25 mg Documented by: Doxazosin Mesylate (Cardura) 2 mg PO QHS [facility] Last Admin: 08/19/19 21:44 Dose: 2 mg Documented by: Ezetimibe (Zetia) 10 mg PO DAILY [facility] Last Admin: 08/20/19 09:12 Dose: 10 mg Documented by: Enoxaparin Sodium (Lovenox) 40 mg SC DAILY [facility] Last Admin: 08/20/19 09:13 Dose: 40 mg Documented by: Escitalopram Oxalate (Lexapro) 10 mg PO DAILY [facility] Last Admin: 08/20/19 09:13 Dose: 10 mg Documented by: Ferrous Gluconate (Ferrous Gluconate) 324 mg PO BIDCM [facility] Last Admin: 08/20/19 09:13 Dose: 324 mg Documented by: Fluticasone Propionate (Flonase Nasal [place]) 2 spray NASAL QHS [facility] Last Admin: 08/19/19 21:46 Dose: 2 sprays Documented by: Gabapentin (Neurontin) 600 mg PO TIDCM [facility] Last Admin: 08/20/19 12:50 Dose: 600 mg Documented by: Glucagon () 1 mg IM .X1 PRN PRN Reason: Hypoglycemia Hydromorphone HCl (Dilaudid Inj) 1 mg IV Q3H PRN PRN PRN Reason: Pain Score 6-10/10 Last Admin: 08/19/19 21:34 Dose: 1 mg Documented by: Sodium Chloride () 1,000 mls @ 30 mls/hr IV .[id number] [facility] Last Infusion: 08/20/19 01:25 Dose: 30 mls/hr Documented by: Sodium Chloride () 250 mls @ 15 mls/hr IV .[id number] PRN PRN Reason: Saline Flush Last Infusion: 08/19/19 05:13 Dose: 0 mls/hr Documented by: Sodium Chloride () 250 mls @ 15 mls/hr IV .[id number] PRN PRN Reason: Additional IVPB Infusion Vancomycin IV Pharmacy to Dose (1 ea/ Sodium Chloride) 500 mls @ 250 mls/hr IV PRN PRN; Protocol PRN Reason: Rx to Dose Vancomycin HCl 1,250 mg/ (Sodium Chloride) 275 mls @ 167 mls/hr IV Q12H [facility] Stop: 08/20/19 14:00 Last Admin: 08/20/19 10:01 Dose: 167 mls/hr Documented by: Meropenem 1 gm/ Sodium (Chloride) 120 mls @ 33 mls/hr IV Q8 [facility] Last Infusion: 08/20/19 09:30 Dose: Infused Documented by: Vancomycin HCl (Vancomycin) 1,000 mg in 200 mls @ 200 mls/hr IV Q12H [facility] Ibuprofen (Motrin) 800 mg PO TID [facility] Last Admin: 08/20/19 05:44 Dose: 800 mg Documented by: Ipratropium [place] (Atrovent) 0.5 mg INHALATION Q6HWA.RT [facility] Last Admin: 08/20/19 12:59 Dose: Not Given Documented by: Metoprolol Tartrate (Lopressor (Beta Joo)) 50 mg PO BID [facility] Last Admin: 08/20/19 09:12 Dose: 50 mg Documented by: Multivitamins (Multivitamin) 1 tablet PO DAILY@0800 [facility] Last Admin: 08/20/19 09:13 Dose: 1 tablet Documented by: Nutritional Formula (Hcuy - [place] Flavor) [facility] Last Admin: 08/20/19 09:15 Dose: Not Given Documented by: Nystatin (Mycostatin Powder) 1 applic TOPICAL BID [facility]; Protocol Last Admin: 08/20/19 09:15 Dose: 1 applicatio Documented by: Ondansetron HCl (Zofran) 4 mg IV Q8H PRN PRN PRN Reason: NAUSEA/VOMITING Oxycodone HCl (Oxyir) 5 mg PO Q4H PRN PRN PRN Reason: Pain Score 6-10/10 Last Admin: 08/20/19 10:35 Dose: 5 mg Documented by: Pantoprazole Sodium (Protonix) 40 mg PO DAILY [facility] Last Admin: 08/20/19 09:12 Dose: 40 mg Documented by: Sodium Chloride () 10 - 40 ml IV UD PRN PRN Reason: SALINE FLUSH Last Admin: 08/19/19 10:20 Dose: 20 ml Documented by: Sodium Hypochlorite (Dakins Solution 0.25% (1/2 Strength)) 1 applic TOPICAL BID [facility]; Protocol Last Admin: 08/20/19 09:13 Dose: 1 applicatio Documented by: Medical Necessity - Tobacco Use Smoking Status: Former smoker Assessment/Plan All Active Problems Skin necrosis (Acute) Candidal skin infection (Acute) Infection and inflammatory reaction due to internal left knee prosthesis, initial encounter (Acute) Skin ulcer of left thigh with fat layer exposed (Acute) MRSA bacteremia (Acute) Pneumonia (Acute) SBO (small bowel obstruction) (Acute) Hypotension (Acute) Hyponatremia (Acute) 1. Recurrent right ischial pressure sore, Stage IV. 2. 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 3. Osteomyelitis. 4. MRSA. 5. Necrotic left ischial pressure sore, Stage IV. 6. History of anal CA treated with chemotherapy and radiation therapy. 7. Anemia of chronic disease. Continue Vancomycin and Meropenem. Antibiotics being managed by ID. Operative cultures of right ischium tissue show MRSA, Corynebacterium, Bacteroides fragilis, Anaerobic cocci, Prevotella melaninogenica. Left ischium tissue shows MRSA and Corynebacterium species and Bacteroides fragilis. Left ischium bone cultures positive MRSA, Corynebacterium, Bacteroides fragilis and Anaerobic cocci. Right ischial bone culture positive for E. coli, MRSA, Corynebacterium species, Bacteroides fragilis, Anaerobic cocci. Pathology of right ischium bone biopsy positive for acute osteomyelitis. Skin and soft tissue of right ischium with ulceration with associated acute and chronic inflammation and granulation. There are minute fragments of bone with acute osteomyelitis. Left ischium bone biopsy negative for osteomyelitis. Skin and soft tissue of left ischium showed ulceration with associated acute and chronic inflammation and granulation. Anticipate increased metabolic demands from the infection and from the large wounds. Prealbumin is 8.4. Encourage nutritional supplementation with protein to help the healing process. Continue Dakin's dressing changes daily. His Hgb is 9.1. No active bleeding noted in the wounds. ECF evaluation in process. After discharge will [facility].
[2019-08-20] MEDS: diazePAM 5 MG Tablet PO ×2 (14:17→23:58)
--- NOTE | 2019-08-20 14:44 | CASEMGMT ---
Social Work Note SHAHANA received message from Bernice at [facility] stating they are not able to accept pt. SHAHANA updated that pt is on surgery schedule tomorrow. SHAHANA placed a call to [facility] and spoke with Tala. Tala states she does still have a bed available on and is still able to accept pt. SHAHANA updated Bernice that pt will be at [facility] until or later. Bernice states she will submit for pre-cert tomorrow for pt. SHAHANA updated pt that [facility] is not able to accept pt but [facility] does have a bed available . Pt agreeable to [facility]. SHAHANA faxed updated clinicals to [facility]. Plan: [facility] pending pre-cert Caroline Og INFORMATION SECURITY ANALYST, [employer]A OPERATIONS CONSULTANT
--- NOTE | 2019-08-20 20:35 | PN_ITS ---
Subjective: Seen and examined today, he has an indurated area in his right groin that I am concerned might be an abscess, I talked with Dr. Mesa concerning this, he examined the patient and feels the patient will need to go to surgery to see if he can drain anything. I also discussed this with infectious diseases. Patient has a old surgical scar over the area and he tells me that approximately 2 years ago he had to have an abscess drained in the area. Patient denies any shortness of breath or any chest pain at this time - Physical Exam Vitals/I&O's: Vital Signs Temp Pulse Resp BP Pulse Ox 98.4 F 81 18 138/77 H 94 08/20/19 19:45 08/20/19 19:45 08/20/19 19:45 08/20/19 19:45 08/20/19 19:45 Oxygen Flow Rate (L/min) 2 Oxygen Delivery Method Room Air Weight: 71.1 kg Body Mass Index (BMI) 24.5 Intake and Output for Last 24 Hours 08/18/19 08/19/19 08/20/19 23:59 23:59 23:59 Intake Total 3112.75 / 3112.75 2676.0 / 2976.0 1415 / 1415 Output Total 2950 / 2950 900 / 2800 3625 / 3625 Balance 162.75 / 162.75 1776.0 / 176.0 -2210 / -2210 General: Alert, Oriented x3, Cooperative, No apparent distress, Well developed HEENT: Atraumatic, PERRLA, EOMI, Normocephalic Oral: Moist Mucosa Neck: Supple, No JVD, Trachea Midline, Thyroid Normal Size and Texture Lungs: Clear to auscultation, Normal air movement, No rhonchi, No wheeze Cardiovascular: Regular rate, Regular Rhythm, Normal S1, Normal S2, No murmurs, PMI Normal, No rub noted Abdomen: Bowel Sounds Present, Soft, Non Tender, Non-Distended Extremities: No edema, Capillary Refill Less than 3 Seconds Skin: Rash Present - There is a rash present over the patient's right groin area with induration and tenderness to palpation, this area is approximately 5 to 8 cm in diameter., - - Again there are open areas over the patient's ischial areas, these are covered with surgical gauze and they were not examined, patient has an eschar on his left heel. There is also an eschar over the patient's right second toe on its dorsal surface Musculoskeletal: No Tenderness to Palpation of Joints or Extremities Neurological: Cranial nerves II-XII grossly intact, Sensory exam intact to light touch and pain Psych/Mental Status: Normal Affect, Appropriate, Alert and oriented to time, place, person, mood and affect Microbiology Past 72 Hours 08/15/19 09:30 Blood Culture (Wb) - Left Hand Blood Culture - Final No growth in 5 days. 08/13/19 15:28 Bone - Other Gram Stain - Final 08/13/19 15:28 Bone - Other Wound Culture - Final Escherichia coli Meth. resistant Staph. aureus Corynebacterium species 08/13/19 15:28 Bone - Other Anaerobic Culture - Final Bacteroides fragilis Anaerobic cocci 08/13/19 15:28 Tissue - Other Gram Stain - Final 08/13/19 15:28 Tissue - Other Wound Culture - Final Meth. resistant Staph. aureus Corynebacterium species 08/13/19 15:28 Tissue - Other Anaerobic Culture - Final Bacteroides fragilis Anaerobic cocci Prevotella melaninogenica 08/13/19 15:28 Bone - Other Gram Stain - Final 08/13/19 15:28 Bone - Other Wound Culture - Final Meth. resistant Staph. aureus Corynebacterium species 08/13/19 15:28 Bone - Other Anaerobic Culture - Final Bacteroides fragilis Anaerobic cocci 08/13/19 15:28 Tissue - Other Gram Stain - Final 08/13/19 15:28 Tissue - Other Wound Culture - Final Meth. resistant Staph. aureus Corynebacterium species 08/13/19 15:28 Tissue - Other Anaerobic Culture - Final Bacteroides fragilis 08/14/19 15:40 Blood Culture (Wb) - Left Hand Blood Culture - Final No growth in 5 days. 08/12/19 18:45 Blood Culture (Wb) - Right Forearm Blood Culture - Final No growth in 5 days. 08/12/19 19:38 Blood Culture (Wb) - Anticubital Left Bacteria Detection (PCR) - Final Meth. resistant Staph. aureus 08/12/19 19:38 Blood Culture (Wb) - Anticubital Left Blood Culture - Preliminary Meth. resistant Staph. aureus 08/16/19 14:50 Blood Culture (Wb) - Left Hand Blood Culture - Preliminary No growth in 48 hours. Laboratory Results 08/20/19 05:35: WBC 9.2, RBC 3.88 L, Hgb 9.1 L, Hct 31.5 L, MCV 81.2, MCH 23.5 L , MCHC 28.9 L, RDW Std Deviation 59.4 H, RDW Coeff of Rosendo 20.8 H, Plt Count 502 H, MPV 7.8, Differential Comment COMMENT 08/20/19 05:35: Sodium 136, Potassium 3.6, Chloride 100, Carbon Dioxide 29.0, Anion Gap 7, BUN 18, Creatinine 0.60 L, Estim Creat Clear Calc 114.76, Est GFR (MDRD) Af Amer 173, Est GFR (MDRD) Non-Af 143, BUN/Creatinine Ratio 30.0 H, Glucose 105, Calcium 8.6 08/20/19 09:40: Vancomycin Trough 19.4 H Current Medications Amlodipine Besylate (Norvasc) 5 mg PO DAILY [facility] Last Admin: 08/20/19 09:12 Dose: 5 mg Documented by: Ascorbic Acid (Vitamin C) 500 mg PO DAILY@0800 [facility] Last Admin: 08/20/19 09:13 Dose: 500 mg Documented by: Bupropion HCl (Wellbutrin Xl) 300 mg PO QHS [facility] Last Admin: 08/19/19 22:41 Dose: 300 mg Documented by: Buspirone HCl (Buspar) 5 mg PO TID [facility] Last Admin: 08/20/19 14:13 Dose: 5 mg Documented by: Cholecalciferol (Vitamin D (25mcg)) 1,000 unit PO DAILY [facility] Last Admin: 08/20/19 09:13 Dose: 1,000 unit Documented by: Dextrose (D50w Syringe) 0 gm IV X1 PRN; Protocol PRN Reason: Hypoglycemia Diazepam (Valium) 5 mg PO 4X/DAY PRN PRN PRN Reason: SPASMS Last Admin: 08/20/19 14:17 Dose: 5 mg Documented by: Diphenhydramine HCl (Benadryl) 25 mg IV Q6H PRN PRN PRN Reason: PRURITIS Last Admin: 08/20/19 06:10 Dose: 25 mg Documented by: Doxazosin Mesylate (Cardura) 2 mg PO QHS [facility] Last Admin: 08/19/19 21:44 Dose: 2 mg Documented by: Ezetimibe (Zetia) 10 mg PO DAILY [facility] Last Admin: 08/20/19 09:12 Dose: 10 mg Documented by: Enoxaparin Sodium (Lovenox) 40 mg SC DAILY [facility] Last Admin: 08/20/19 09:13 Dose: 40 mg Documented by: Escitalopram Oxalate (Lexapro) 10 mg PO DAILY [facility] Last Admin: 08/20/19 09:13 Dose: 10 mg Documented by: Ferrous Gluconate (Ferrous Gluconate) 324 mg PO BIDCM [facility] Last Admin: 08/20/19 16:57 Dose: 324 mg Documented by: Fluticasone Propionate (Flonase Nasal [place]) 2 spray [facility] Last Admin: 08/19/19 21:46 Dose: 2 sprays Documented by: Gabapentin (Neurontin) 600 mg PO TIDCM [facility] Last Admin: 08/20/19 16:57 Dose: 600 mg Documented by: Glucagon () 1 mg IM .X1 PRN PRN Reason: Hypoglycemia Heparin Sodium (Beef Lung) () 50 units IV UD PRN PRN Reason: PICC Line Heparin Flush Hydromorphone HCl (Dilaudid Inj) 1 mg IV Q3H PRN PRN PRN Reason: Pain Score 6-10/10 Last Admin: 08/19/19 21:34 Dose: 1 mg Documented by: Sodium Chloride () 1,000 mls @ 30 mls/hr IV .[id number] [facility] Last Infusion: 08/20/19 01:25 Dose: 30 mls/hr Documented by: Sodium Chloride () 250 mls @ 15 mls/hr IV .[id number] PRN PRN Reason: Saline Flush Last Infusion: 08/19/19 05:13 Dose: 0 mls/hr Documented by: Sodium Chloride () 250 mls @ 15 mls/hr IV .[id number] PRN PRN Reason: Additional IVPB Infusion Vancomycin IV Pharmacy to Dose (1 ea/ Sodium Chloride) 500 mls @ 250 mls/hr IV PRN PRN; Protocol PRN Reason: Rx to Dose Meropenem 1 gm/ Sodium (Chloride) 120 mls @ 33 mls/hr IV Q8 [facility] Last Infusion: 08/20/19 19:01 Dose: Infused Documented by: Vancomycin HCl (Vancomycin) 1,000 mg in 200 mls @ 200 mls/hr IV Q12H [facility] Ibuprofen (Motrin) 800 mg PO TID [facility] Last Admin: 08/20/19 14:13 Dose: 800 mg Documented by: Ipratropium [place] (Atrovent) 0.5 mg INHALATION Q6HWA.RT [facility] Last Admin: 08/20/19 12:59 Dose: Not Given Documented by: Metoprolol Tartrate (Lopressor (Beta Joo)) 50 mg PO BID [facility] Last Admin: 08/20/19 09:12 Dose: 50 mg Documented by: Multivitamins (Multivitamin) 1 tablet PO DAILY@0800 [facility] Last Admin: 08/20/19 09:13 Dose: 1 tablet Documented by: Nutritional Formula (Chuy - [place] Flavor) [facility] Last Admin: 08/20/19 16:57 Dose: 1 packet Documented by: Nystatin (Mycostatin Powder) 1 applic TOPICAL BID [facility]; Protocol Last Admin: 08/20/19 09:15 Dose: 1 applicatio Documented by: Ondansetron HCl (Zofran) 4 mg IV Q8H PRN PRN PRN Reason: NAUSEA/VOMITING Oxycodone HCl (Oxyir) 5 mg PO Q4H PRN PRN PRN Reason: Pain Score 6-10/10 Last Admin: 08/20/19 19:55 Dose: 5 mg Documented by: Pantoprazole Sodium (Protonix) 40 mg PO DAILY [facility] Last Admin: 08/20/19 09:12 Dose: 40 mg Documented by: Sodium Chloride () 10 - 40 ml IV UD PRN PRN Reason: SALINE FLUSH Last Admin: 08/19/19 10:20 Dose: 20 ml Documented by: Sodium Hypochlorite (Dakins Solution 0.25% (1/2 Strength)) 1 applic TOPICAL BID [facility]; Protocol Last Admin: 08/20/19 09:13 Dose: 1 applicatio Documented by: Medical Necessity - Tobacco Use Smoking Status: Former smoker Assessment/Plan All Active Problems Skin necrosis (Acute) Candidal skin infection (Acute) Infection and inflammatory reaction due to internal left knee prosthesis, initial encounter (Acute) Skin ulcer of left thigh with fat layer exposed (Acute) MRSA bacteremia (Acute) Pneumonia (Acute) SBO (small bowel obstruction) (Acute) Hypotension (Acute) Hyponatremia (Acute) #1 osteomyelitis of the right pelvis-organisms E. coli methicillin-resistant staph aureus, B fragilis, corynebacterium-infectious disease is seeing patient and directing antibiotic coverage #2 pressure injury right and left ischium with infection-status post debridement 08/13/2019-organisms methicillin-resistant staph aureus, corynebacterium, B fragilis, Prevotella-again antibiotic coverage per infectious diseases #3 essential hypertension #4 COPD #5 hyperlipidemia #6 chronic anemia-etiology unclear-I ordered serum iron and TIBC #7 depression/anxiety-patient is currently on Wellbutrin, BuSpar, and Valium #8 deconditioning-patient will need placement in a fpc facility for rehab services #9 possible right groin abscess-plastic surgery will incise the area tomorrow.. Inpatient E&M: [id number] Subs Hosp L2
[2019-08-20] MEDS: Vancomycin IV 1,000 MG/200 ML BAG 200 MG IV (22:01)
[2019-08-20] MEDS: Doxazosin 1 MG Tablet 2 MG PO (22:05)
[2019-08-20] MEDS: buPROPion (XL) 300 MG TABLET.XL PO (22:05)
[2019-08-20] MEDS: HYDROmorphone 1 MG/ML Syringe IV (22:06)
[2019-08-20] MEDS: Fluticasone 0.05% 1 SPRAY NASAL.SRY 2 SPRAY NASAL (22:08)
[2019-08-21] VITALS (14 sets, daily range): BP systolic 95–140; BP diastolic 55–75; PULSE 65–77; RESP 16–20; TEMP 36.7–37.4; O2SAT 90–100; BMI 24.5; BMI 24.6
--- NOTE | 2019-08-21 | PRES_PTH ---
PATIENT: BRYN TROTTER LOC: [facility] U#:[id number] AGE/SX: 64/M ROOM: SC322 RE08/12/[address]: Dr. Chandan Leigh DO : 1955 BED: 1 DIS: 08/23/2019 SPEC #: [id number] RECD: 08/21/19 14:39 STATUS: JUAN DIEGO REQ #: [id number] BURT: 08/21/19 00:[address]: Venkat Mesa DEPT: SURGICAL PATHOLOGY RECD BY: Rita Valera ENTERED: 08/22/19 08:22 SP TYPE: PRESS SORE OTHR DR: MD Dr. Chandan Freedman DO Dr. Paul Nielsen, MD Dr. 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 A piece of lymph node tissue with reactive lymphoid hyperplasia. Special stains for acid fast bacilli and fungi are negative for organisms; matched controls are appropriate. GALLO:isi 08/23/19 MICROSCOPIC DESCRIPTION Slides are reviewed. GROSS DESCRIPTION Received in fixative is one container labeled with the patient's name and designated right groin abscess soft tissue. The specimen consists of two pieces of skin with underlying tissue measuring 7.5 x 1.8 cm and up to 3.5 cm in thickness and 8 x 1.5 cm and up to 4 cm in thickness. No mass lesion is identified. Rougher Helper sections are submitted in two cassettes. / GALLO:isi 08/22/19 TC:2 CPT: 64313, 98104 x2
[2019-08-21] MEDS: HYDROmorphone 1 MG/ML Syringe IV ×3 (04:17→20:50)
[2019-08-21] MEDS: DiphenhydrAMINE 50 MG/ML Syringe 25 MG IV ×2 (04:17→21:05)
[2019-08-21 05:48] LABS: Hematocrit 30.9 % (40-54); Hemoglobin 9.2 g/dL (13.0-16.5); Mean Corp Hgb Conc 29.8 g/dL (32-36); Mean Corpuscular Hgb 23.8 pg (27.0-32.0); Mean Corpuscular Volume 79.8 fL (80-94); Mean Platelet Vol. 7.6 fl (6.2-12.0); POSITIVE MORPHOLOGY YES; Platelet Count 445 K/mm3 (150-450); RBC Distribution Width CV 20.3 % (11.6-14.6); RBC Distribution Width SD 58.4 fl (35.1-43.9); Red Blood Count 3.87 M/mm3 (4.6-6.2); White Blood Count 8.9 K/mm3 (4.4-11.0)
[2019-08-21 05:49] LABS: Scan Indicated on CBC? Y/N YES- FLAGS NOTED
[2019-08-21 06:02] LABS: Anion Gap 6 (5-15); BUN 20 mg/dL (7-18); Calcium,Total 8.6 mg/dL (8.5-10.1); Chloride 99 mmol/L (98-107); Creatinine, Serum 0.64 mg/dL (0.70-1.30); EST Glomerular Filtration Rate 132 mL/min (>60); Est Glom Filt Rate - Afr Amer 160 mL/min (>60); Estimated Creatinine Clearance 107.58 ml/min; Glucose 96 mg/dL (74-106); Iron 35 ug/dL (65-175); Iron Binding Capacity,Total 199 ug/dL (250-450); PERCENT IRON SATURATION 17.6 % (15.0-55.0); Potassium 4.1 mmol/L (3.5-5.1); Sodium Level 135 mmol/L (136-145)
[2019-08-21 06:05] LABS: Differential Comment SCANNED
[2019-08-21] MEDS: Ipratropium 0.5 MG/2.5 ML SOLUTION INHALATION (06:50)
[2019-08-21] MEDS: busPIRone 5 MG Tablet PO ×3 (09:25→21:03)
[2019-08-21] MEDS: Ibuprofen 400 MG Tablet 800 MG PO ×3 (09:26→21:02)
[2019-08-21] MEDS: Ferrous Gluconate 324 MG Tablet PO ×2 (09:26→16:54)
[2019-08-21] MEDS: Gabapentin 600 MG Tablet PO ×3 (09:26→16:54)
[2019-08-21] MEDS: Multivitamins,Therapeutic Tablet 1 TABLET PO (09:26)
[2019-08-21] MEDS: Ascorbic Acid 500 MG Tablet PO (09:27)
[2019-08-21] MEDS: Metoprolol Tartrate 50 MG Tablet PO ×2 (09:27→21:01)
[2019-08-21] MEDS: Escitalopram Oxalate 10 MG Tablet PO (09:27)
[2019-08-21] MEDS: amLODIPine 5 MG Tablet PO (09:27)
[2019-08-21] MEDS: Pantoprazole Sodium 40 MG Tablet PO (09:28)
[2019-08-21] MEDS: Ezetimibe 10 MG Tablet PO (09:28)
[2019-08-21] MEDS: Vancomycin IV 1,000 MG/200 ML BAG 200 MG IV ×2 (09:34→21:00)
--- NOTE | 2019-08-21 10:13 | PN_ITS ---
Reason for Visit: osteomyelitis Subjective: Denies any new complaints. Vitals/I&O's: Vital Signs Temp Pulse Resp BP Pulse Ox 37.2 C 70 16 137/59 H 94 08/21/19 08:50 08/21/19 09:27 08/21/19 08:50 08/21/19 08:50 08/21/19 08:50 Oxygen Flow Rate (L/min) 2 Oxygen Delivery Method Room Air Weight: 71.1 kg Body Mass Index (BMI) 24.5 Intake and Output for Last 24 Hours 08/19/19 08/20/19 08/21/19 23:59 23:59 23:59 Intake Total 2676.0 / 2976.0 1614 520 / 520 Output Total 900 / 2800 3625 / 4525 1250 / 1250 Balance 1776.0 / 176.0 -2009 / 2510 -730 / -730 General: Alert, No apparent distress HEENT: Atraumatic, Normocephalic Oral: Moist Mucosa, No Gingival or Mucosal Lesions/ Ulcerations Neck: No Nodes, Trachea Midline Lungs: Clear to auscultation, Normal air movement, No rhonchi, No wheeze, No rales Cardiovascular: Regular rate, Regular Rhythm, Normal S1, Normal S2, No murmurs Abdomen: Bowel Sounds Present, Soft, Non Tender, Non-Distended Extremities: No edema, No Calf Tenderness, - - onchyomycosis Skin: No rashes, No breakdown Psych/Mental Status: Normal Affect, Appropriate Microbiology Past 72 Hours 08/15/19 09:30 Blood Culture (Wb) - Left Hand Blood Culture - Final No growth in 5 days. 08/13/19 15:28 Bone - Other Gram Stain - Final 08/13/19 15:28 Bone - Other Wound Culture - Final Escherichia coli Meth. resistant Staph. aureus Corynebacterium species 08/13/19 15:28 Bone - Other Anaerobic Culture - Final Bacteroides fragilis Anaerobic cocci 08/13/19 15:28 Tissue - Other Gram Stain - Final 08/13/19 15:28 Tissue - Other Wound Culture - Final Meth. resistant Staph. aureus Corynebacterium species 08/13/19 15:28 Tissue - Other Anaerobic Culture - Final Bacteroides fragilis Anaerobic cocci Prevotella melaninogenica 08/13/19 15:28 Bone - Other Gram Stain - Final 08/13/19 15:28 Bone - Other Wound Culture - Final Meth. resistant Staph. aureus Corynebacterium species 08/13/19 15:28 Bone - Other Anaerobic Culture - Final Bacteroides fragilis Anaerobic cocci 08/13/19 15:28 Tissue - Other Gram Stain - Final 08/13/19 15:28 Tissue - Other Wound Culture - Final Meth. resistant Staph. aureus Corynebacterium species 08/13/19 15:28 Tissue - Other Anaerobic Culture - Final Bacteroides fragilis 08/14/19 15:40 Blood Culture (Wb) - Left Hand Blood Culture - Final No growth in 5 days. 08/12/19 18:45 Blood Culture (Wb) - Right Forearm Blood Culture - Final No growth in 5 days. 08/12/19 19:38 Blood Culture (Wb) - Anticubital Left Bacteria Detection (PCR) - Final Meth. resistant Staph. aureus 08/12/19 19:38 Blood Culture (Wb) - Anticubital Left Blood Culture - Preliminary Meth. resistant Staph. aureus 08/16/19 14:50 Blood Culture (Wb) - Left Hand Blood Culture - Preliminary No growth in 48 hours. Laboratory Results 08/20/19 09:40: Vancomycin Trough 19.4 H 08/21/19 05:34: WBC 8.9, RBC 3.87 L, Hgb 9.2 L, Hct 30.9 L, MCV 79.8 L, MCH 23.8 L, MCHC 29.8 L, RDW Std Deviation 58.4 H, RDW Coeff of Rosendo 20.3 H, Plt Count 445, MPV 7.6, Differential Comment SCANNED 08/21/19 05:34: Sodium 135 L, Potassium 4.1, Chloride 99, Carbon Dioxide 30.0, Anion Gap 6, BUN 20 H, Creatinine 0.64 L, Estim Creat Clear Calc 107.58, Est GFR (MDRD) Af Amer 160, Est GFR (MDRD) Non-Af 132, BUN/Creatinine Ratio 31.0 H, Glucose 96, Calcium 8.6, Iron 35 L, TIBC 199 L, Iron Saturation 17.6 Current Medications Amlodipine Besylate (Norvasc) 5 mg PO DAILY [facility] Last Admin: 08/21/19 09:27 Dose: 5 mg Documented by: Ascorbic Acid (Vitamin C) 500 mg PO DAILY@0800 [facility] Last Admin: 08/21/19 09:27 Dose: 500 mg Documented by: Bupropion HCl (Wellbutrin Xl) 300 mg PO QHS [facility] Last Admin: 08/20/19 22:05 Dose: 300 mg Documented by: Buspirone HCl (Buspar) 5 mg PO TID [facility] Last Admin: 08/21/19 09:25 Dose: 5 mg Documented by: Cholecalciferol (Vitamin D (25mcg)) 1,000 unit PO DAILY [facility] Last Admin: 08/21/19 09:28 Dose: 1,000 unit Documented by: Dextrose (D50w Syringe) 0 gm IV X1 PRN; Protocol PRN Reason: Hypoglycemia Diazepam (Valium) 5 mg PO 4X/DAY PRN PRN PRN Reason: SPASMS Last Admin: 08/20/19 23:58 Dose: 5 mg Documented by: Diphenhydramine HCl (Benadryl) 25 mg IV Q6H PRN PRN PRN Reason: PRURITIS Last Admin: 08/21/19 04:17 Dose: 25 mg Documented by: Doxazosin Mesylate (Cardura) 2 mg PO QHS [facility] Last Admin: 08/20/19 22:05 Dose: 2 mg Documented by: Ezetimibe (Zetia) 10 mg PO DAILY [facility] Last Admin: 08/21/19 09:28 Dose: 10 mg Documented by: Enoxaparin Sodium (Lovenox) 40 mg SC DAILY [facility] Last Admin: 08/21/19 09:45 Dose: Not Given Documented by: Escitalopram Oxalate (Lexapro) 10 mg PO DAILY [facility] Last Admin: 08/21/19 09:27 Dose: 10 mg Documented by: Ferrous Gluconate (Ferrous Gluconate) 324 mg PO BIDCM [facility] Last Admin: 08/21/19 09:26 Dose: 324 mg Documented by: Fluticasone Propionate (Flonase Nasal [place]) 2 spray NASAL QHS [facility] Last Admin: 08/20/19 22:08 Dose: 2 sprays Documented by: Gabapentin (Neurontin) 600 mg PO TIDCM [facility] Last Admin: 08/21/19 09:26 Dose: 600 mg Documented by: Glucagon () 1 mg IM .X1 PRN PRN Reason: Hypoglycemia Heparin Sodium (Beef Lung) () 50 units IV UD PRN PRN Reason: PICC Line Heparin Flush Heparin Sodium (Beef Lung) () 50 units IV UD PRN PRN Reason: PICC Line Heparin Flush Hydromorphone HCl (Dilaudid Inj) 1 mg IV Q3H PRN PRN PRN Reason: Pain Score 6-1010 Last Admin: 08/21/19 04:17 Dose: 1 mg Documented by: Sodium Chloride () 1,000 mls @ 30 mls/hr IV .[id number] [facility] Last Infusion: 08/20/19 01:25 Dose: 30 mls/hr Documented by: Sodium Chloride () 250 mls @ 15 mls/hr IV .[id number] PRN PRN Reason: Saline Flush Last Infusion: 08/19/19 05:13 Dose: 0 mls/hr Documented by: Sodium Chloride () 250 mls @ 15 mls/hr IV .[id number] PRN PRN Reason: Additional IVPB Infusion Vancomycin IV Pharmacy to Dose (1 ea/ Sodium Chloride) 500 mls @ 250 mls/hr IV PRN PRN; Protocol PRN Reason: Rx to Dose Meropenem 1 gm/ Sodium (Chloride) 120 mls @ 33 mls/hr IV Q8 [facility] Last Admin: 08/21/19 05:46 Dose: 33 mls/hr Documented by: Vancomycin HCl (Vancomycin) 1,000 mg in 200 mls @ 200 mls/hr IV Q12H [facility] Last Admin: 08/21/19 09:34 Dose: 200 mls/hr Documented by: Ibuprofen (Motrin) 800 mg PO TID [facility] Last Admin: 08/21/19 09:26 Dose: 800 mg Documented by: Ipratropium [place] (Atrovent) 0.5 mg INHALATION Q6HWA.RT [facility] Last Admin: 08/21/19 06:50 Dose: 0.5 mg Documented by: Metoprolol Tartrate (Lopressor (Beta Joo)) 50 mg PO BID [facility] Last Admin: 08/21/19 09:27 Dose: 50 mg Documented by: Multivitamins (Multivitamin) 1 tablet PO DAILY@0800 [facility] Last Admin: 08/21/19 09:26 Dose: 1 tablet Documented by: Nutritional Formula (Chuy - [place] Flavor) 1 packet PO BIDCM [facility] Last Admin: 08/21/19 09:24 Dose: 1 packet Documented by: Nystatin (Mycostatin Powder) 1 applic TOPICAL BID [facility]; Protocol Last Admin: 08/21/19 09:45 Dose: Not Given Documented by: Ondansetron HCl (Zofran) 4 mg IV Q8H PRN PRN PRN Reason: NAUSEA/VOMITING Oxycodone HCl (Oxyir) 5 mg PO Q4H PRN PRN PRN Reason: Pain Score 6-10/10 Last Admin: 08/20/19 23:58 Dose: 5 mg Documented by: Pantoprazole Sodium (Protonix) 40 mg PO DAILY [facility] Last Admin: 08/21/19 09:28 Dose: 40 mg Documented by: Sodium Chloride () 10 - 40 ml IV UD PRN PRN Reason: SALINE FLUSH Last Admin: 08/19/19 10:20 Dose: 20 ml Documented by: Sodium Chloride () 10 - 40 ml IV UD PRN PRN Reason: Open End PICC Flush Sodium Chloride (0.9% Nacl (Sterile) Posiflush) 10 - 40 ml IV UD PRN PRN Reason: Port access or dressing change Sodium Hypochlorite (Dakins Solution 0.25% (1/2 Strength)) 1 applic TOPICAL BID [facility]; Protocol Last Admin: 08/21/19 09:44 Dose: Not Given Documented by: STROKE Vital Signs/Narrative: Vital Signs Temp Pulse Resp BP Pulse Ox 08/21/19 09:27 70 08/21/19 08:50 37.2 C 70 16 137/59 H 94 08/21/19 06:50 77 20 H 90 Medical Necessity - Tobacco Use Smoking Status: Former smoker Assessment/Plan All Active Problems Skin necrosis (Acute) Candidal skin infection (Acute) Infection and inflammatory reaction due to internal left knee prosthesis, initial encounter (Acute) Skin ulcer of left thigh with fat layer exposed (Acute) MRSA bacteremia (Acute) Pneumonia (Acute) SBO (small bowel obstruction) (Acute) Hypotension (Acute) Hyponatremia (Acute) 1. osteomyelitis of the right pelvis * polymicrobial: E. coli, methicillin-resistant staph aureus, B fragilis, corynebacterium * on vanc and meropenem 2. pressure injury right and left ischium with infection * status post debridement 08/13/2019 3. right groin abscess: * to OR today for debridement 4. Chronic condiitions: essential hypertension, COPD, HLP, anemia, depression, anxiety: complicate care, but overall stable. 5. deconditioning * SNF upon DC * per CM, should be ready by 08/21 6. VTE prophylaxis: enoxaparin. Inpatient E&M: 97721 Subs Hosp L2
[2019-08-21] MEDS: 0.9% Normal Saline 1,000 ML 30 ML IV ×2 (11:49→21:38)
--- NOTE | 2019-08-21 13:46 | CASEMGMT ---
Social Work Note Pt is scheduled for surgery today. Per previous notes [facility] to submit for pre-cert today. 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
--- NOTE | 2019-08-21 13:55 | OP.PCM_ITS ---
Report of Operation Date of Procedure: 08/21/19 Pre-Operative Diagnosis: 1. Abscess right inguinal area and right proximal thigh area. 2. Recurrent right ischial pressure sore, Stage IV. 3. 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 4. Osteomyelitis. 5. MRSA. 6. Necrotic left ischial pressure sore, Stage IV. 7. History of anal CA treated with chemotherapy and radiation therapy. osteomyelitis. Post-Operative Diagnosis: Same. Surgery/Procedure Performed:: Surgical preparation right inguinal area and right proximal thigh area with incision and drainage and excisional debridement submuscular abscess. Description of Surgical Findings:: Patient has worsening pain and induration in his right inguinal area and right proximal thigh area. With worsening symptoms, I am concerned about a chronic abscess in the area. He will need operative intervention with surgical preparation of his right inguinal area and right proximal thigh area with incision and drainage and excisional debridement abscess. Will leave the wound open and begin postop care with Dakin's dressing changes. Tissue will be sent to Pathology and Microbiology for culture. A positive culture may necessitate antibiotic modification. He is currently on Vancomycin and Meropenem. Patient was informed of the risks and complications of the procedure including alternatives to surgery. These were discussed with the patient personally. Patient voices understanding and wishes to proceed. Size of defect right inguinal area and right proximal thigh area - 14 x 5 x 5 cm. mortgage loan computation clerk: None Type of Anesthesia:: General Specimen's removed: Right inguinal area and right proximal thigh area abscess to Pathology and Microbiology. Drains: None. Estimated Blood Loss (mL): 25 ml. Description of Procedure: Patient was taken to OR in supine position and was placed under general anest hesia. The right inguinal area and right proximal thigh areas were prepped and draped in the usual fashion. SCD's were placed for DVT prophylaxis. Perioperative antibiotics were given intravenously. Using xylocaine with epinephrine, the areas of induration were infiltrated. After waiting 5 minutes for the anesthetic to take effect, I proceeded with a longitudinal incision through previous scar into the subcutaneous tissue. A lot of fat necrosis was present. A lot of induration was present. I dissected down to the muscular fascia. Some bulging was seen. Further dissection was done submuscularly. Copious amounts of pus were seen and drained. A lot of chronic scar tissue was present leading to some anatomical distortion. The muscles in the vicinity of this submuscular abscess were the sartorius, the rectus femoris, and the iliopsoas muscles. At the base of the abscess cavity there was palpable bone. The neurovascular femoral structures are in close vicinity medial to the abscess cavity. Due to the amount of induration and fat necrosis, this tissue was excised and debrided. The wound was copiously irrigated with saline. Hemostasis was obtained with electrocautery. Some of the deeper capsular tissue was left behind because of the proximity to the neurovascular structures. If this abscess wound has trouble healing of if recurrent infection develops, then he would need evaluation at a tertiary center where there is vascular surgery availability in case vascular bypass is needed because deeper debridement may injure the femoral vessels. Will discuss with the patient postoperatively. Some of the tissue was sent to Pathology for analysis to rule out carcinoma and to Microbiology for culture. A positive culture will necessitate antibiotic therapy. The wound was packed with Mepitel nonadherent dressing followed by Kerlix gauze and saline. This was followed by dry Kerlix gauze and ABD pads compression dressing. The size of the wound after incision and drainage and excisional debridement was 14 x 5 x 5 cm. Patient tolerated the procedure well and was sent to PACU in satisfactory condition. Patient will be sent upstairs for continued postop care. Will begin Dakin's dressing changes tomorrow. Grafts/Implants Used: None. - Complications None. - Admit VTE Documentation VTE Present on Admission: No VTE Mechan Device Prophylaxis: SCD's VTE Pharm Prophylaxis ordered?: Yes Surgery Charges CPT - 84005 ICD-10 - S71.101A, S31.103A, L02.415, L02.214, A49.02, M86.151, L89.314, L89.324, T66.xxxS, L59.8, Z85.048 [id number] L02.415, L02.214, A49.02, M86.151, L89.314, L89.324, T66.xxxS, L59.8, Z85.048
--- NOTE | 2019-08-21 15:29 | CHAPLAIN ---
Type of Pastoral Visit ___ Initial Visit ___ Follow-up Visit ___ On-call Visit ___ General Patient Visit ___ Spiritual Assessment ___ Family Conference ___ Bereavement ___ Rapid Response ___ Code Blue _x__ Other (describe below) Pastoral Care Referral From ___ Patient ___ Family ___ Nurse ___ Physician ___ Personnel Officer ___ Negative Stripper ___ Other (describe below) Sacrament/Intervention ___ Active listening ___ Anointing ___ Judaism ___ Bereavement ___ Communion ___ Becka exploration ___ ___ Life review ___ Prayer ___ Reconciliation ___ Sacrament of Sick ___ Supportive presence ___ Wedding ___ Other (describe below) Pastoral Comments patient is out of the room
[2019-08-21] MEDS: buPROPion (XL) 300 MG TABLET.XL PO (21:02)
[2019-08-21] MEDS: Doxazosin 1 MG Tablet 2 MG PO (21:02)
[2019-08-21] MEDS: DAKIN'S SOL HALF STRENGTH (=0.25%) 1 APPLIC TOPICAL (21:11)
[2019-08-21] MEDS: Nystatin Powder 15gm Bottle 1 APPLIC TOPICAL (21:40)
[2019-08-21] MEDS: Fluticasone 0.05% 1 SPRAY NASAL.SRY 2 SPRAY NASAL (21:40)
[2019-08-21] MEDS: 0.9% Saline Lock 10 ML Syringe IV (22:26)
[2019-08-22] VITALS (10 sets, daily range): BP systolic 122–168; BP diastolic 58–74; PULSE 62–78; RESP 16–20; TEMP 36.6–37.4; O2SAT 95–100; BMI 24.6
[2019-08-22] MEDS: 0.9% Saline Lock 10 ML Syringe IV ×3 (00:21→23:09)
[2019-08-22] MEDS: oxyCODONE 5 MG Tablet PO ×3 (02:55→13:01)
[2019-08-22] MEDS: busPIRone 5 MG Tablet PO ×3 (06:03→23:28)
[2019-08-22] MEDS: Ibuprofen 400 MG Tablet 800 MG PO ×3 (06:03→23:09)
[2019-08-22] MEDS: DiphenhydrAMINE 50 MG/ML Syringe 25 MG IV ×2 (06:32→20:04)
[2019-08-22] MEDS: Ipratropium 0.5 MG/2.5 ML SOLUTION INHALATION ×2 (07:06→18:58)
[2019-08-22] MEDS: Ferrous Gluconate 324 MG Tablet PO ×2 (08:46→16:04)
[2019-08-22] MEDS: Ascorbic Acid 500 MG Tablet PO (08:46)
[2019-08-22] MEDS: Multivitamins,Therapeutic Tablet 1 TABLET PO (08:46)
[2019-08-22] MEDS: Gabapentin 600 MG Tablet PO ×3 (08:51→16:04)
[2019-08-22] MEDS: Enoxaparin 40 MG/0.4 ML Syringe SC (09:09)
[2019-08-22] MEDS: Nystatin Powder 15gm Bottle 1 APPLIC TOPICAL ×2 (09:09→23:09)
[2019-08-22] MEDS: Metoprolol Tartrate 50 MG Tablet PO ×2 (09:09→23:10)
[2019-08-22] MEDS: Escitalopram Oxalate 10 MG Tablet PO (09:10)
[2019-08-22] MEDS: amLODIPine 5 MG Tablet PO (09:10)
[2019-08-22] MEDS: Ezetimibe 10 MG Tablet PO (09:10)
[2019-08-22] MEDS: Pantoprazole Sodium 40 MG Tablet PO (09:10)
[2019-08-22 09:41] LABS: Vancomycin, Trough Level 20.1 ug/mL (5.0-15.0)
[2019-08-22] MEDS: Vancomycin IV 1,000 MG/200 ML BAG 200 MG IV (10:05)
--- NOTE | 2019-08-22 10:32 | PCM.PN.ID ---
Subjective: Sleeping this AM. OR yesterday, packing in place - Physical Exam Vitals/I&O's: Vital Signs Temp Pulse Resp BP Pulse Ox 98.3 F 73 16 125/60 H 96 08/22/19 08:30 08/22/19 09:09 08/22/19 08:30 08/22/19 08:30 08/22/19 08:30 Oxygen Flow Rate (L/min) 2 Oxygen Delivery Method Nasal Cannula Weight: 71.1 kg Body Mass Index (BMI) 24.5 Intake and Output for Last 24 Hours 08/20/19 08/21/19 08/22/19 23:59 23:59 23:59 Intake Total 1614 / 2014 2400.0 / 2900.0 720 / 720 Output Total 3625 / 4525 1250 / 2300 1700 / 1700 Balance -2009 / 2510 1150.0 / 600.0 -980 / -980 General: No apparent distress Lungs: Clear to auscultation, Normal air movement Cardiovascular: Regular rate, Regular Rhythm Abdomen: Soft, Non Tender, Non-Distended Skin: Ulcer/ Wound Microbiology Past 72 Hours 08/21/19 13:30 Other - Other Wound Culture - Preliminary Gram positive organism 08/16/19 14:50 Blood Culture (Wb) - Left Hand Blood Culture - Final No growth in 5 days. 08/15/19 09:30 Blood Culture (Wb) - Left Hand Blood Culture - Final No growth in 5 days. 08/13/19 15:28 Bone - Other Gram Stain - Final 08/13/19 15:28 Bone - Other Wound Culture - Final Escherichia coli Meth. resistant Staph. aureus Corynebacterium species 08/13/19 15:28 Bone - Other Anaerobic Culture - Final Bacteroides fragilis Anaerobic cocci 08/13/19 15:28 Tissue - Other Gram Stain - Final 08/13/19 15:28 Tissue - Other Wound Culture - Final Meth. resistant Staph. aureus Corynebacterium species 08/13/19 15:28 Tissue - Other Anaerobic Culture - Final Bacteroides fragilis Anaerobic cocci Prevotella melaninogenica 08/13/19 15:28 Bone - Other Gram Stain - Final 08/13/19 15:28 Bone - Other Wound Culture - Final Meth. resistant Staph. aureus Corynebacterium species 08/13/19 15:28 Bone - Other Anaerobic Culture - Final Bacteroides fragilis Anaerobic cocci 08/13/19 15:28 Tissue - Other Gram Stain - Final 08/13/19 15:28 Tissue - Other Wound Culture - Final Meth. resistant Staph. aureus Corynebacterium species 08/13/19 15:28 Tissue - Other Anaerobic Culture - Final Bacteroides fragilis 08/14/19 15:40 Blood Culture (Wb) - Left Hand Blood Culture - Final No growth in 5 days. 08/12/19 18:45 Blood Culture (Wb) - Right Forearm Blood Culture - Final No growth in 5 days. 08/12/19 19:38 Blood Culture (Wb) - Anticubital Left Bacteria Detection (PCR) - Final Meth. resistant Staph. aureus 08/12/19 19:38 Blood Culture (Wb) - Anticubital Left Blood Culture - Preliminary Meth. resistant Staph. aureus Laboratory Results 08/22/19 09:00: Vancomycin Trough 20.1 H Current Medications Amlodipine Besylate (Norvasc) 5 mg PO DAILY [facility] Last Admin: 08/22/19 09:10 Dose: 5 mg Documented by: Ascorbic Acid (Vitamin C) 500 mg PO DAILY@0800 [facility] Last Admin: 08/22/19 08:46 Dose: 500 mg Documented by: Bupropion HCl (Wellbutrin Xl) 300 mg PO QHS [facility] Last Admin: 08/21/19 21:02 Dose: 300 mg Documented by: Buspirone HCl (Buspar) 5 mg PO TID [facility] Last Admin: 08/22/19 06:03 Dose: 5 mg Documented by: Cholecalciferol (Vitamin D (25mcg)) 1,000 unit PO DAILY [facility] Last Admin: 08/22/19 09:09 Dose: 1,000 unit Documented by: Dextrose (D50w Syringe) 0 gm IV X1 PRN; Protocol PRN Reason: Hypoglycemia Diazepam (Valium) 5 mg PO 4X/DAY PRN PRN PRN Reason: SPASMS Last Admin: 08/20/19 23:58 Dose: 5 mg Documented by: Diphenhydramine HCl (Benadryl) 25 mg IV Q6H PRN PRN PRN Reason: PRURITIS Last Admin: 08/22/19 06:32 Dose: 25 mg Documented by: Doxazosin Mesylate (Cardura) 2 mg PO QHS [facility] Last Admin: 08/21/19 21:02 Dose: 2 mg Documented by: Ezetimibe (Zetia) 10 mg PO DAILY [facility] Last Admin: 08/22/19 09:10 Dose: 10 mg Documented by: Enoxaparin Sodium (Lovenox) 40 mg SC DAILY [facility] Last Admin: 08/22/19 09:09 Dose: 40 mg Documented by: Escitalopram Oxalate (Lexapro) 10 mg PO DAILY [facility] Last Admin: 08/22/19 09:10 Dose: 10 mg Documented by: Ferrous Gluconate (Ferrous Gluconate) 324 mg PO BIDCM [facility] Last Admin: 08/22/19 08:46 Dose: 324 mg Documented by: Fluticasone Propionate (Flonase Nasal [place]) [facility] Last Admin: 08/21/19 21:40 Dose: 2 sprays Documented by: Gabapentin (Neurontin) 600 mg PO TIDCM [facility] Last Admin: 08/22/19 08:51 Dose: 600 mg Documented by: Glucagon () 1 mg IM .X1 PRN PRN Reason: Hypoglycemia Heparin Sodium (Beef Lung) () 50 units IV UD PRN PRN Reason: PICC Line Heparin Flush Heparin Sodium (Beef Lung) () 50 units IV UD PRN PRN Reason: PICC Line Heparin Flush Hydromorphone HCl (Dilaudid Inj) 1 mg IV Q3H PRN PRN PRN Reason: Pain Score 6-10/10 Last Admin: 08/21/19 20:50 Dose: 1 mg Documented by: Sodium Chloride () 1,000 mls @ 30 mls/hr IV .[id number] [facility] Last Admin: 08/21/19 21:38 Dose: 30 mls/hr Documented by: Sodium Chloride () 250 mls @ 15 mls/hr IV .[id number] PRN PRN Reason: Saline Flush Last Infusion: 08/19/19 05:13 Dose: 0 mls/hr Documented by: Sodium Chloride () 250 mls @ 15 mls/hr IV .[id number] PRN PRN Reason: Additional IVPB Infusion Vancomycin IV Pharmacy to Dose (1 ea/ Sodium Chloride) 500 mls @ 250 mls/hr IV PRN PRN; Protocol PRN Reason: Rx to Dose Meropenem 1 gm/ Sodium (Chloride) 120 mls @ 33 mls/hr IV Q8 [facility] Last Admin: 08/22/19 06:03 Dose: 33 mls/hr Documented by: Vancomycin HCl (Vancomycin) 1,000 mg in 200 mls @ 200 mls/hr IV Q12H [facility] Last Admin: 08/22/19 10:05 Dose: 200 mls/hr Documented by: Ibuprofen (Motrin) 800 mg PO TID [facility] Last Admin: 08/22/19 06:03 Dose: 800 mg Documented by: Ipratropium [place] (Atrovent) 0.5 mg INHALATION Q6HWA.RT [facility] Last Admin: 08/22/19 07:06 Dose: 0.5 mg Documented by: Metoprolol Tartrate (Lopressor (Beta Joo)) 50 mg PO BID [facility] Last Admin: 08/22/19 09:09 Dose: 50 mg Documented by: Multivitamins (Multivitamin) 1 tablet PO DAILY@0800 [facility] Last Admin: 08/22/19 08:46 Dose: 1 tablet Documented by: Nutritional Formula ([place] - [place] Flavor) [facility] Last Admin: 08/22/19 08:46 Dose: 1 packet Documented by: Nystatin (Mycostatin Powder) 1 applic TOPICAL BID [facility]; Protocol Last Admin: 08/22/19 09:09 Dose: 1 applicatio Documented by: Ondansetron HCl (Zofran) 4 mg IV Q8H PRN PRN PRN Reason: NAUSEA/VOMITING Oxycodone HCl (Oxyir) 5 mg PO Q4H PRN PRN PRN Reason: Pain Score 6-10/10 Last Admin: 08/22/19 09:10 Dose: 5 mg Documented by: Pantoprazole Sodium (Protonix) 40 mg PO DAILY [facility] Last Admin: 08/22/19 09:10 Dose: 40 mg Documented by: Sodium Chloride () 10 - 40 ml IV UD PRN PRN Reason: SALINE FLUSH Last Admin: 08/22/19 00:21 Dose: 10 ml Documented by: Sodium Chloride () 10 - 40 ml IV UD PRN PRN Reason: Open End PICC Flush Sodium Chloride (0.9% Nacl (Sterile) Posiflush) 10 - 40 ml IV UD PRN PRN Reason: Port access or dressing change Sodium Hypochlorite (Dakins Solution 0.25% (1/2 Strength)) 1 applic TOPICAL BID [facility]; Protocol Last Admin: 08/21/19 21:11 Dose: 1 applicatio Documented by: Medical Necessity - Tobacco Use Smoking Status: Former smoker Route of nutrition/ use of supplements: [] Nutritional Intake: [] IV Site: [] Walker Catheter: [] - Assessment/Plan Antibiotics: [] Assessment/Plan: [] Active and Suspected Problems Chronic osteomyelitis of right pelvic region (Acute) Pressure injury of right buttock, stage 2 (Acute) Right ischial pressure sore, 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 Mesa. Prior cxs with MRSA, PsA, proteus, corynebacteria. Surg cx now also with ESBL ecoli. COVID neg. TTE neg for veg. Vanc JYOTI was 2. Bcx remains neg. Cont vanc, ceropenem. Taken back to OR 08/[address] Mesa for inguinal abscess. Plan at discharge will be 6 weeks of iv abx with vanc and ertapenem, stop date 09/24/19, weekly bmp, cbc, LFT, vanc trough, and esr. Will need dose of ertapenem here prior to discharge. ID followup in 2 weeks. Will follow
--- NOTE | 2019-08-22 10:36 | CASEMGMT ---
Addendum entered by Caroline Og 08/22/19 11:10: SHAHANA placed another call to Tala at [facility], [place] and updated her that pt is medically ready or close to being medically ready for discharge and to let this worker know when pre-cert is obtained. Tala states understanding. SHAHANA faxed updated clinicals to [facility], [place]. Original Note: Social Work Note SHAHANA attempted to call Tala at [facility], no answer, voicemail full not able to leave message. SHAHANA will attempt to call Tala again today. SHAHANA waiting for pre-cert for SNF. Plan: [facility], [place] pending pre-cert Caroline Og COMPOSITOR APPRENTICE, FREIGHT COORDINATOR
--- NOTE | 2019-08-22 11:14 | PCM.RX.CS ---
Consult Pharmacy has been consulted to manage selected antiobiotic: Vancomycin Type of Consult: Follow-up Suspected Infection: Osteomyelitis Prior Doses of Antibiotics Received/Current Regimen: x4 at current dose Labs: Sodium 135 mmol/L (136-145) L 08/21/19 05:34 Potassium 4.1 mmol/L (3.5-5.1) 08/21/19 05:34 Chloride 99 mmol/L (98-107) 08/21/19 05:34 Carbon Dioxide 30.0 mmol/L (21.0-32.0) 08/21/19 05:34 Anion Gap 6 (5-15) 08/21/19 05:34 BUN 20 mg/dL (7-18) H 08/21/19 05:34 Creatinine 0.64 mg/dL (0.70-1.30) L 08/21/19 05:34 Est GFR (MDRD) Af Amer 160 mL/min (>60) 08/21/19 05:34 Est GFR (MDRD) Non-Af 132 mL/min (>60) 08/21/19 05:34 BUN/Creatinine Ratio 31.0 RATIO (10-20) H 08/21/19 05:34 Glucose 96 mg/dL (74-106) 08/21/19 05:34 Vancomycin Trough 20.1 ug/mL (5.0-15.0) H 08/22/19 09:00 Microbiology: Microbiology 08/21/19 13:30 Other - Other Wound Culture - Preliminary Gram positive organism 08/16/19 14:50 Blood Culture (Wb) - Left Hand Blood Culture - Final No growth in 5 days. 08/15/19 09:30 Blood Culture (Wb) - Left Hand Blood Culture - Final No growth in 5 days. 08/13/19 15:28 Bone - Other Gram Stain - Final 08/13/19 15:28 Bone - Other Wound Culture - Final Escherichia coli Meth. resistant Staph. aureus Corynebacterium species 08/13/19 15:28 Bone - Other Anaerobic Culture - Final Bacteroides fragilis Anaerobic cocci 08/13/19 15:28 Tissue - Other Gram Stain - Final 08/13/19 15:28 Tissue - Other Wound Culture - Final Meth. resistant Staph. aureus Corynebacterium species 08/13/19 15:28 Tissue - Other Anaerobic Culture - Final Bacteroides fragilis Anaerobic cocci Prevotella melaninogenica 08/13/19 15:28 Bone - Other Gram Stain - Final 08/13/19 15:28 Bone - Other Wound Culture - Final Meth. resistant Staph. aureus Corynebacterium species 08/13/19 15:28 Bone - Other Anaerobic Culture - Final Bacteroides fragilis Anaerobic cocci 08/13/19 15:28 Tissue - Other Gram Stain - Final 08/13/19 15:28 Tissue - Other Wound Culture - Final Meth. resistant Staph. aureus Corynebacterium species 08/13/19 15:28 Tissue - Other Anaerobic Culture - Final Bacteroides fragilis 08/14/19 15:40 Blood Culture (Wb) - Left Hand Blood Culture - Final No growth in 5 days. 08/12/19 18:45 Blood Culture (Wb) - Right Forearm Blood Culture - Final No growth in 5 days. 08/12/19 19:38 Blood Culture (Wb) - Anticubital Left Bacteria Detection (PCR) - Final Meth. resistant Staph. aureus 08/12/19 19:38 Blood Culture (Wb) - Anticubital Left Blood Culture - Preliminary Meth. resistant Staph. aureus Goal Trough: 15-20 mcg/mL Pharmacy Plan for Drug Dosing: VANCOMYCIN LEVEL RECEIVED Current Vancomycin Dose: 1000mg q24h () Number of Doses Received: 4 (of this current dose) Vancomycin Level: 20.1 Hours Since Last Dose: 12 Renal Function: 0.64 (last level 08/20) Renal Function Trend: stable Lab/Micro: Vancomycin Plan/Comments: pt was on 1250mg q12h, then decreased to 1000mg q12h. trough was still slightly elevated at 20.1. recommend holding 08/22/19 2200 dose to allow to clear, then starting 1500mg q24h on 08/22 @ 1000. the total daily dose the pt will receive will be lower, and it will give him more time to clear the medication. Pending Level: 08/24 @ 929 Pharmacy Service will continue to monitor and adjust dosing as required. Follow-Up Labs: Trough Vancomycin - 08/24 @ 929
[2019-08-22] MEDS: HYDROmorphone 1 MG/ML Syringe IV ×3 (11:47→23:08)
[2019-08-22] MEDS: Silver Nitrate (BKC) 8 EACH TOPICAL (11:49)
--- NOTE | 2019-08-22 12:16 | NURSING ---
wound photo: right groin
--- NOTE | 2019-08-22 13:02 | PCM.PN.HOSP ---
Reason for Visit: pelvic OM Subjective: No new complaints. Vitals/I&O's: Vital Signs Temp Pulse Resp BP Pulse Ox 36.8 C 73 16 125/60 H 96 08/22/19 08:30 08/22/19 09:09 08/22/19 08:30 08/22/19 08:30 08/22/19 08:30 Oxygen Flow Rate (L/min) 2 Oxygen Delivery Method Nasal Cannula Weight: 71.1 kg Body Mass Index (BMI) 24.5 Intake and Output for Last 24 Hours 08/20/19 08/21/19 08/22/19 23:59 23:59 23:59 Intake Total 1614 / 2014 2400.0 / 2900.0 840 / 840 Output Total 3625 / 4525 1250 / 2300 1700 / 1700 Balance -2010 / -2510 1150.0 / 600.0 -860 / -860 General: Alert, No apparent distress HEENT: Atraumatic, Normocephalic Oral: Moist Mucosa, No Gingival or Mucosal Lesions/ Ulcerations Neck: No Nodes, Trachea Midline Lungs: Clear to auscultation, Normal air movement, No rhonchi, No wheeze, No rales Cardiovascular: Regular rate, Regular Rhythm, Normal S1, Normal S2, No murmurs Abdomen: Bowel Sounds Present, Soft, Non Tender, Non-Distended, No Hepato-splenomegaly Extremities: No edema, No Calf Tenderness Skin: - - right groin bandaged--did not remove. Musculoskeletal: No Tenderness to Palpation of Joints or Extremities, No Muscle Wasting Psych/Mental Status: Appropriate, Flat Affect Microbiology Past 72 Hours 08/21/19 13:30 Other - Other Gram Stain - Final 08/21/19 13:30 Other - Other Wound Culture - Preliminary Gram positive organism 08/16/19 14:50 Blood Culture (Wb) - Left Hand Blood Culture - Final No growth in 5 days. 08/15/19 09:30 Blood Culture (Wb) - Left Hand Blood Culture - Final No growth in 5 days. 08/13/19 15:28 Bone - Other Gram Stain - Final 08/13/19 15:28 Bone - Other Wound Culture - Final Escherichia coli Meth. resistant Staph. aureus Corynebacterium species 08/13/19 15:28 Bone - Other Anaerobic Culture - Final Bacteroides fragilis Anaerobic cocci 08/13/19 15:28 Tissue - Other Gram Stain - Final 08/13/19 15:28 Tissue - Other Wound Culture - Final Meth. resistant Staph. aureus Corynebacterium species 08/13/19 15:28 Tissue - Other Anaerobic Culture - Final Bacteroides fragilis Anaerobic cocci Prevotella melaninogenica 08/13/19 15:28 Bone - Other Gram Stain - Final 08/13/19 15:28 Bone - Other Wound Culture - Final Meth. resistant Staph. aureus Corynebacterium species 08/13/19 15:28 Bone - Other Anaerobic Culture - Final Bacteroides fragilis Anaerobic cocci 08/13/19 15:28 Tissue - Other Gram Stain - Final 08/13/19 15:28 Tissue - Other Wound Culture - Final Meth. resistant Staph. aureus Corynebacterium species 08/13/19 15:28 Tissue - Other Anaerobic Culture - Final Bacteroides fragilis 08/14/19 15:40 Blood Culture (Wb) - Left Hand Blood Culture - Final No growth in 5 days. Laboratory Results 08/22/19 09:00: Vancomycin Trough 20.1 H Current Medications Amlodipine Besylate (Norvasc) 5 mg PO DAILY [facility] Last Admin: 08/22/19 09:10 Dose: 5 mg Documented by: Ascorbic Acid (Vitamin C) 500 mg PO DAILY@0800 [facility] Last Admin: 08/22/19 08:46 Dose: 500 mg Documented by: Bupropion HCl (Wellbutrin Xl) 300 mg PO QHS [facility] Last Admin: 08/21/19 21:02 Dose: 300 mg Documented by: Buspirone HCl (Buspar) 5 mg PO TID [facility] Last Admin: 08/22/19 13:01 Dose: 5 mg Documented by: Cholecalciferol (Vitamin D (25mcg)) 1,000 unit PO DAILY [facility] Last Admin: 08/22/19 09:09 Dose: 1,000 unit Documented by: Dextrose (D50w Syringe) 0 gm IV X1 PRN; Protocol PRN Reason: Hypoglycemia Diazepam (Valium) 5 mg PO 4X/DAY PRN PRN PRN Reason: SPASMS Last Admin: 08/20/19 23:58 Dose: 5 mg Documented by: Diphenhydramine HCl (Benadryl) 25 mg IV Q6H PRN PRN PRN Reason: PRURITIS Last Admin: 08/22/19 06:32 Dose: 25 mg Documented by: Doxazosin Mesylate (Cardura) 2 mg PO QHS [facility] Last Admin: 08/21/19 21:02 Dose: 2 mg Documented by: Ezetimibe (Zetia) 10 mg PO DAILY [facility] Last Admin: 08/22/19 09:10 Dose: 10 mg Documented by: Enoxaparin Sodium (Lovenox) 40 mg SC DAILY [facility] Last Admin: 08/22/19 09:09 Dose: 40 mg Documented by: Escitalopram Oxalate (Lexapro) 10 mg PO DAILY [facility] Last Admin: 08/22/19 09:10 Dose: 10 mg Documented by: Ferrous Gluconate (Ferrous Gluconate) 324 mg PO BIDCM [facility] Last Admin: 08/22/19 08:46 Dose: 324 mg Documented by: Fluticasone Propionate (Flonase Nasal [place]) 2 spray NASAL QHS [facility] Last Admin: 08/21/19 21:40 Dose: 2 sprays Documented by: Gabapentin (Neurontin) 600 mg PO TIDCM [facility] Last Admin: 08/22/19 13:01 Dose: 600 mg Documented by: Glucagon () 1 mg IM .X1 PRN PRN Reason: Hypoglycemia Heparin Sodium (Beef Lung) () 50 units IV UD PRN PRN Reason: PICC Line Heparin Flush Heparin Sodium (Beef Lung) () 50 units IV UD PRN PRN Reason: PICC Line Heparin Flush Hydromorphone HCl (Dilaudid Inj) 1 mg IV Q3H PRN PRN PRN Reason: Pain Score 6-10/10 Last Admin: 08/22/19 11:47 Dose: 1 mg Documented by: Sodium Chloride () 1,000 mls @ 30 mls/hr IV .[id number] [facility] Last Admin: 08/21/19 21:38 Dose: 30 mls/hr Documented by: Sodium Chloride () 250 mls @ 15 mls/hr IV .[id number] PRN PRN Reason: Saline Flush Last Infusion: 08/19/19 05:13 Dose: 0 mls/hr Documented by: Sodium Chloride () 250 mls @ 15 mls/hr IV .[id number] PRN PRN Reason: Additional IVPB Infusion Vancomycin IV Pharmacy to Dose (1 ea/ Sodium Chloride) 500 mls @ 250 mls/hr IV PRN PRN; Protocol PRN Reason: Rx to Dose Meropenem 1 gm/ Sodium (Chloride) 120 mls @ 33 mls/hr IV Q8 [facility] Last Admin: 08/22/19 13:02 Dose: 33 mls/hr Documented by: Vancomycin HCl 1,500 mg/ (Sodium Chloride) 530 mls @ 250 mls/hr IV Q24H [facility] Ibuprofen (Motrin) 800 mg PO TID [facility] Last Admin: 08/22/19 13:01 Dose: 800 mg Documented by: Ipratropium [place] (Atrovent) 0.5 mg INHALATION Q6HWA.RT [facility] Last Admin: 08/22/19 07:06 Dose: 0.5 mg Documented by: Metoprolol Tartrate (Lopressor (Beta Joo)) 50 mg PO BID [facility] Last Admin: 08/22/19 09:09 Dose: 50 mg Documented by: Multivitamins (Multivitamin) 1 tablet PO DAILY@0800 [facility] Last Admin: 08/22/19 08:46 Dose: 1 tablet Documented by: Nutritional Formula ([place] - [place] [facility]) [facility] Last Admin: 08/22/19 08:46 Dose: 1 packet Documented by: Nystatin (Mycostatin Powder) 1 applic TOPICAL BID [facility]; Protocol Last Admin: 08/22/19 09:09 Dose: 1 applicatio Documented by: Ondansetron HCl (Zofran) 4 mg IV Q8H PRN PRN PRN Reason: NAUSEA/VOMITING Oxycodone HCl (Oxyir) 5 mg PO Q4H PRN PRN PRN Reason: Pain Score 6-10/10 Last Admin: 08/22/19 13:01 Dose: 5 mg Documented by: Pantoprazole Sodium (Protonix) 40 mg PO DAILY [facility] Last Admin: 08/22/19 09:10 Dose: 40 mg Documented by: Sodium Chloride () 10 - 40 ml IV UD PRN PRN Reason: SALINE FLUSH Last Admin: 08/22/19 00:21 Dose: 10 ml Documented by: Sodium Chloride () 10 - 40 ml IV UD PRN PRN Reason: Open End PICC Flush Sodium Chloride (0.9% Nacl (Sterile) Posiflush) 10 - 40 ml IV UD PRN PRN Reason: Port access or dressing change Sodium Hypochlorite (Dakins Solution 0.25% (1/2 Strength)) 1 applic TOPICAL BID [facility]; Protocol Last Admin: 08/21/19 21:11 Dose: 1 applicatio Documented by: STROKE Vital Signs/Narrative: Vital Signs Pulse 08/22/19 09:09 73 Medical Necessity - Tobacco Use Smoking Status: Former smoker Assessment/Plan All Active Problems Skin necrosis (Acute) Candidal skin infection (Acute) Infection and inflammatory reaction due to internal left knee prosthesis, initial encounter (Acute) Skin ulcer of left thigh with fat layer exposed (Acute) MRSA bacteremia (Acute) Pneumonia (Acute) SBO (small bowel obstruction) (Acute) Hypotension (Acute) Hyponatremia (Acute) 1. osteomyelitis of the right pelvis polymicrobial: E. coli, methicillin-resistant staph aureus, B fragilis, corynebacterium on vanc and meropenem 2. pressure injury right and left ischium with infection status post debridement 08/13/2019 3. right groin abscess: OR 08/20 for debridement Cx showing a GPO 4. Chronic conditions: essential hypertension, COPD, HLP, anemia, depression, anxiety: complicate care, but overall stable. 5. deconditioning SNF upon DC awaiting on precertification. 6. VTE prophylaxis: enoxaparin. Inpatient E&M: 94703 Subs Hosp L2
[2019-08-22] MEDS: DAKIN'S SOL HALF STRENGTH (=0.25%) 1 APPLIC TOPICAL ×2 (13:04→23:11)
--- NOTE | 2019-08-22 14:24 | CHAPLAIN ---
Type of Pastoral Visit _x__ Initial Visit ___ Follow-up Visit ___ On-call Visit ___ General Patient Visit ___ Spiritual Assessment ___ Family Conference ___ Bereavement ___ Rapid Response ___ Code Blue ___ Other (describe below) Pastoral Care Referral From _x__ Patient ___ Family ___ Nurse ___ Physician ___ Business Analysis Consultant ___ Industrial Psychology Professor ___ Other (describe below) Sacrament/Intervention _x__ Active listening ___ Anointing ___ Taoism ___ Bereavement ___ Communion ___ Becka exploration ___ ___ Life review _x__ Prayer ___ Reconciliation ___ Sacrament of Sick _x__ Supportive presence ___ Wedding ___ Other (describe below) Pastoral Comments
--- NOTE | 2019-08-22 23:01 | PN.SURG_ITS ---
Subjective: Postop #1 and #9 Patient complains of right inguinal and proximal thigh wound pain. - Physical Exam Vitals/I&O's: Vital Signs Temp Pulse Resp BP Pulse Ox 97.9 F 76 16 125/69 H 97 08/22/19 16:05 08/22/19 18:58 08/22/19 18:58 08/22/19 16:05 08/22/19 18:58 Oxygen Flow Rate (L/min) 2 Oxygen Delivery Method Nasal Cannula Weight: 156 lb 11.979 oz Body Mass Index (BMI) 24.5 Intake and Output for Last 24 Hours 08/20/19 08/21/19 08/22/19 23:59 23:59 23:59 Intake Total 161 / 2014 2400.0 / 2900.0 1160 / 1160 Output Total 3625 / 4525 1250 / 2300 1700 / 1700 Balance -2010 / -2510 1150.0 / 600.0 -540 / -540 General: Alert, Oriented x3 HEENT: PERRLA, EOMI Oral: Moist Mucosa Neck: Supple Abdomen: Soft, Non-Distended Skin: Ulcer/ Wound - right inguinal and proximal thigh wound is stable. Minor areas of oozing easily controlled with silver nitrate chemical cauterization and gauze compression. The wound was redressed with Dakin's dressing change. He needed IV analgesia as it was quite painful. Bilateral ischial pressure sore wounds are stable. Tolerating the Dakin's dressing changes well. Neurological: Cranial nerves II-XII grossly intact Psych/Mental Status: Normal Affect, Appropriate Microbiology Past 72 Hours 08/21/19 13:30 Other - Other Gram Stain - Final 08/21/19 13:30 Other - Other Wound Culture - Preliminary Gram positive organism 08/16/19 14:50 Blood Culture (Wb) - Left Hand Blood Culture - Final No growth in 5 days. 08/15/19 09:30 Blood Culture (Wb) - Left Hand Blood Culture - Final No growth in 5 days. 08/13/19 15:28 Bone - Other Gram Stain - Final 08/13/19 15:28 Bone - Other Wound Culture - Final Escherichia coli Meth. resistant Staph. aureus Corynebacterium species 08/13/19 15:28 Bone - Other Anaerobic Culture - Final Bacteroides fragilis Anaerobic cocci 08/13/19 15:28 Tissue - Other Gram Stain - Final 08/13/19 15:28 Tissue - Other Wound Culture - Final Meth. resistant Staph. aureus Corynebacterium species 08/13/19 15:28 Tissue - Other Anaerobic Culture - Final Bacteroides fragilis Anaerobic cocci Prevotella melaninogenica 08/13/19 15:28 Bone - Other Gram Stain - Final 08/13/19 15:28 Bone - Other Wound Culture - Final Meth. resistant Staph. aureus Corynebacterium species 08/13/19 15:28 Bone - Other Anaerobic Culture - Final Bacteroides fragilis Anaerobic cocci 08/13/19 15:28 Tissue - Other Gram Stain - Final 08/13/19 15:28 Tissue - Other Wound Culture - Final Meth. resistant Staph. aureus Corynebacterium species 08/13/19 15:28 Tissue - Other Anaerobic Culture - Final Bacteroides fragilis 08/14/19 15:40 Blood Culture (Wb) - Left Hand Blood Culture - Final No growth in 5 days. Pathology - acute osteomyelitis. Laboratory Results 08/22/19 09:00: Vancomycin Trough 20.1 H Current Medications Amlodipine Besylate (Norvasc) 5 mg PO DAILY [facility] Last Admin: 08/22/19 09:10 Dose: 5 mg Documented by: Ascorbic Acid (Vitamin C) 500 mg PO DAILY@0800 [facility] Last Admin: 08/22/19 08:46 Dose: 500 mg Documented by: Bupropion HCl (Wellbutrin Xl) 300 mg PO QHS [facility] Last Admin: 08/21/19 21:02 Dose: 300 mg Documented by: Buspirone HCl (Buspar) 5 mg PO TID [facility] Last Admin: 08/22/19 13:01 Dose: 5 mg Documented by: Cholecalciferol (Vitamin D (25mcg)) 1,000 unit PO DAILY [facility] Last Admin: 08/22/19 09:09 Dose: 1,000 unit Documented by: Dextrose (D50w Syringe) 0 gm IV X1 PRN; Protocol PRN Reason: Hypoglycemia Diazepam (Valium) 5 mg PO 4X/DAY PRN PRN PRN Reason: SPASMS Last Admin: 08/20/19 23:58 Dose: 5 mg Documented by: Diphenhydramine HCl (Benadryl) 25 mg IV Q6H PRN PRN PRN Reason: PRURITIS Last Admin: 08/22/19 20:04 Dose: 25 mg Documented by: Doxazosin Mesylate (Cardura) 2 mg PO QHS [facility] Last Admin: 08/21/19 21:02 Dose: 2 mg Documented by: Ezetimibe (Zetia) 10 mg PO DAILY [facility] Last Admin: 08/22/19 09:10 Dose: 10 mg Documented by: Enoxaparin Sodium (Lovenox) 40 mg SC DAILY [facility] Last Admin: 08/22/19 09:09 Dose: 40 mg Documented by: Escitalopram Oxalate (Lexapro) 10 mg PO DAILY [facility] Last Admin: 08/22/19 09:10 Dose: 10 mg Documented by: Ferrous Gluconate (Ferrous Gluconate) 324 mg PO BIDCM [facility] Last Admin: 08/22/19 16:04 Dose: 324 mg Documented by: Fluticasone Propionate (Flonase Nasal [place]) 2 spray NASAL QHS [facility] Last Admin: 08/21/19 21:40 Dose: 2 sprays Documented by: Gabapentin (Neurontin) 600 mg PO TIDCM [facility] Last Admin: 08/22/19 16:04 Dose: 600 mg Documented by: Glucagon () 1 mg IM .X1 PRN PRN Reason: Hypoglycemia Heparin Sodium (Beef Lung) () 50 units IV UD PRN PRN Reason: PICC Line Heparin Flush Heparin Sodium (Beef Lung) () 50 units IV UD PRN PRN Reason: PICC Line Heparin Flush Hydromorphone HCl (Dilaudid Inj) 1 mg IV Q3H PRN PRN PRN Reason: Pain Score 6-10/10 Last Admin: 08/22/19 19:20 Dose: 1 mg Documented by: Sodium Chloride () 1,000 mls @ 30 mls/hr IV .[id number] [facility] Last Admin: 08/21/19 21:38 Dose: 30 mls/hr Documented by: Sodium Chloride () 250 mls @ 15 mls/hr IV .[id number] PRN PRN Reason: Saline Flush Last Infusion: 08/19/19 05:13 Dose: 0 mls/hr Documented by: Sodium Chloride () 250 mls @ 15 mls/hr IV .[id number] PRN PRN Reason: Additional IVPB Infusion Vancomycin IV Pharmacy to Dose (1 ea/ Sodium Chloride) 500 mls @ 250 mls/hr IV PRN PRN; Protocol PRN Reason: Rx to Dose Meropenem 1 gm/ Sodium (Chloride) 120 mls @ 33 mls/hr IV Q8 [facility] Last Infusion: 08/22/19 18:17 Dose: Infused Documented by: Vancomycin HCl 1,500 mg/ (Sodium Chloride) 530 mls @ 250 mls/hr IV Q24H [facility] Ibuprofen (Motrin) 800 mg PO TID [facility] Last Admin: 08/22/19 13:01 Dose: 800 mg Documented by: Ipratropium [place] (Atrovent) 0.5 mg INHALATION Q6HWA.RT [facility] Last Admin: 08/22/19 18:58 Dose: 0.5 mg Documented by: Metoprolol Tartrate (Lopressor (Beta Joo)) 50 mg PO BID [facility] Last Admin: 08/22/19 09:09 Dose: 50 mg Documented by: Multivitamins (Multivitamin) 1 tablet PO DAILY@0800 [facility] Last Admin: 08/22/19 08:46 Dose: 1 tablet Documented by: Nutritional Formula ([place] - [place] Flavor) [facility] Last Admin: 08/22/19 16:04 Dose: 1 packet Documented by: Nystatin (Mycostatin Powder) 1 applic TOPICAL BID [facility]; Protocol Last Admin: 08/22/19 09:09 Dose: 1 applicatio Documented by: Ondansetron HCl (Zofran) 4 mg IV Q8H PRN PRN PRN Reason: NAUSEA/VOMITING Oxycodone HCl (Oxyir) 5 mg PO Q4H PRN PRN PRN Reason: Pain Score 6-10/10 Last Admin: 08/22/19 13:01 Dose: 5 mg Documented by: Pantoprazole Sodium (Protonix) 40 mg PO DAILY [facility] Last Admin: 08/22/19 09:10 Dose: 40 mg Documented by: Sodium Chloride () 10 - 40 ml IV UD PRN PRN Reason: SALINE FLUSH Last Admin: 08/22/19 20:04 Dose: 10 ml Documented by: Sodium Chloride () 10 - 40 ml IV UD PRN PRN Reason: Open End PICC Flush Sodium Chloride (0.9% Nacl (Sterile) Posiflush) 10 - 40 ml IV UD PRN PRN Reason: Port access or dressing change Sodium Hypochlorite (Dakins Solution 0.25% (1/2 Strength)) 1 applic TOPICAL BID [facility]; Protocol Last Admin: 08/22/19 13:04 Dose: 1 applicatio Documented by: Medical Necessity - Tobacco Use Smoking Status: Former smoker Assessment/Plan All Active Problems Non-healing open wound of right groin (Acute) Open wound of right thigh (Acute) Abscess of right thigh (Acute) Abscess of right groin (Acute) Skin necrosis (Acute) Candidal skin infection (Acute) Infection and inflammatory reaction due to internal left knee prosthesis, initial encounter (Acute) Skin ulcer of left thigh with fat layer exposed (Acute) MRSA bacteremia (Acute) Pneumonia (Acute) SBO (small bowel obstruction) (Acute) Hypotension (Acute) Hyponatremia (Acute) 1. Right inguinal and proximal thigh abscess. 2. Recurrent right ischial pressure sore, Stage IV. 3. 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 4. Osteomyelitis. 5. MRSA. 6. Necrotic left ischial pressure sore, Stage IV. 7. History of anal CA treated with chemotherapy and radiation therapy. 8. Anemia of chronic disease. Continue Vancomycin and Meropenem. 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 Prior cultures with MRSA, Pseudomonas aeroginosa, Proteus mirabilis, corynebacteria. Surg culture now also with ESBL ecoli. COVID neg. Pathology shows osteomyelitis. Right inguinal wound showed some minor oozing easily controlled with silver nitrate chemical cauterization and gauze compression. The dressing change was painful. He needed IV analgesia. Redressed with Dakin's dressing change.Anticipate discharge to ECF tomorrow. Bilateral ischial pressure sore wounds are stable. He tolerated the Dakin's dressing changes well. Anticipate increased metabolic demands from the infection and from the large wounds. Prealbumin was 8.4. Encourage nutritional supplementation with protein to help the healing process. Continue Dakin's dressing changes daily. His Hgb is 9.2. Continue to observe. No active bleeding noted in the wounds. ECF evaluation in process. After discharge will [facility].
[2019-08-22] MEDS: Fluticasone 0.05% 1 SPRAY NASAL.SRY 2 SPRAY NASAL (23:09)
[2019-08-22] MEDS: Doxazosin 1 MG Tablet 2 MG PO (23:09)
[2019-08-22] MEDS: buPROPion (XL) 300 MG TABLET.XL PO (23:10)
[2019-08-23 02:59] VITALS: BP 124/66; PULSE 76; RESP 18; TEMP 37.3; O2SAT 93
[2019-08-23] MEDS: HYDROmorphone 1 MG/ML Syringe IV ×2 (03:01→08:16)
[2019-08-23] MEDS: DiphenhydrAMINE 50 MG/ML Syringe 25 MG IV (03:01)
[2019-08-23] MEDS: 0.9% Saline Lock 10 ML Syringe IV ×3 (03:01→11:12)
[2019-08-23] MEDS: busPIRone 5 MG Tablet PO ×2 (05:51→14:08)
[2019-08-23] MEDS: Ibuprofen 400 MG Tablet 800 MG PO ×2 (05:51→14:07)
[2019-08-23] MEDS: Ipratropium 0.5 MG/2.5 ML SOLUTION INHALATION (07:48)
[2019-08-23] MEDS: Ferrous Gluconate 324 MG Tablet PO (08:16)
[2019-08-23] MEDS: Gabapentin 600 MG Tablet PO ×2 (08:16→12:00)
[2019-08-23] MEDS: Ascorbic Acid 500 MG Tablet PO (08:16)
[2019-08-23] MEDS: Multivitamins,Therapeutic Tablet 1 TABLET PO (08:16)
[2019-08-23 09:00] VITALS: BP 128/90; PULSE 74; RESP 18; TEMP 36.7; O2SAT 96
--- NOTE | 2019-08-23 09:44 | PN.ID_ITS ---
Subjective: Feeling ok, no fever, no n/v. - Physical Exam Vitals/I&O's: Vital Signs Temp Pulse Resp BP Pulse Ox 98.1 F 74 18 128/90 H 96 08/23/19 09:00 08/23/19 09:00 08/23/19 09:00 08/23/19 09:00 08/23/19 09:00 Oxygen Flow Rate (L/min) 1 Oxygen Delivery Method Nasal Cannula Weight: 71.1 kg Body Mass Index (BMI) 24.5 Intake and Output for Last 24 Hours 08/21/19 08/22/19 08/23/19 23:59 23:59 23:59 Intake Total 2400.0 / 2900.0 1160 / 1410 610 / 610 Output Total 1250 / 2300 1700 / 2800 2100 / 2100 Balance 1150.0 / 600.0 -540 / -1390 -1490 / -1490 General: Alert, Cooperative, No apparent distress Lungs: Clear to auscultation, Normal air movement Cardiovascular: Regular rate, Regular Rhythm Abdomen: Soft, Non Tender, Non-Distended Skin: No rashes, Ulcer/ Wound Microbiology Past 72 Hours 08/21/19 13:30 Other - Other Gram Stain - Final 08/21/19 13:30 Other - Other Wound Culture - Preliminary Staphylococcus aureus 08/16/19 14:50 Blood Culture (Wb) - Left Hand Blood Culture - Final No growth in 5 days. 08/15/19 09:30 Blood Culture (Wb) - Left Hand Blood Culture - Final No growth in 5 days. 08/13/19 15:28 Bone - Other Gram Stain - Final 08/13/19 15:28 Bone - Other Wound Culture - Final Escherichia coli Meth. resistant Staph. aureus Corynebacterium species 08/13/19 15:28 Bone - Other Anaerobic Culture - Final Bacteroides fragilis Anaerobic cocci 08/13/19 15:28 Tissue - Other Gram Stain - Final 08/13/19 15:28 Tissue - Other Wound Culture - Final Meth. resistant Staph. aureus Corynebacterium species 08/13/19 15:28 Tissue - Other Anaerobic Culture - Final Bacteroides fragilis Anaerobic cocci Prevotella melaninogenica 08/13/19 15:28 Bone - Other Gram Stain - Final 08/13/19 15:28 Bone - Other Wound Culture - Final Meth. resistant Staph. aureus Corynebacterium species 08/13/19 15:28 Bone - Other Anaerobic Culture - Final Bacteroides fragilis Anaerobic cocci 08/13/19 15:28 Tissue - Other Gram Stain - Final 08/13/19 15:28 Tissue - Other Wound Culture - Final Meth. resistant Staph. aureus Corynebacterium species 08/13/19 15:28 Tissue - Other Anaerobic Culture - Final Bacteroides fragilis 08/14/19 15:40 Blood Culture (Wb) - Left Hand Blood Culture - Final No growth in 5 days. Current Medications Amlodipine Besylate (Norvasc) 5 mg PO DAILY [facility] Last Admin: 08/22/19 09:10 Dose: 5 mg Documented by: Ascorbic Acid (Vitamin C) 500 mg PO DAILY@0800 [facility] Last Admin: 08/23/19 08:16 Dose: 500 mg Documented by: Bupropion HCl (Wellbutrin Xl) 300 mg PO QHS [facility] Last Admin: 08/22/19 23:10 Dose: 300 mg Documented by: Buspirone HCl (Buspar) 5 mg PO TID [facility] Last Admin: 08/23/19 05:51 Dose: 5 mg Documented by: Cholecalciferol (Vitamin D (25mcg)) 1,000 unit PO DAILY [facility] Last Admin: 08/22/19 09:09 Dose: 1,000 unit Documented by: Dextrose (D50w Syringe) 0 gm IV X1 PRN; Protocol PRN Reason: Hypoglycemia Diazepam (Valium) 5 mg PO 4X/DAY PRN PRN PRN Reason: SPASMS Last Admin: 08/20/19 23:58 Dose: 5 mg Documented by: Doxazosin Mesylate (Cardura) 2 mg PO QHS [facility] Last Admin: 08/22/19 23:09 Dose: 2 mg Documented by: Ezetimibe (Zetia) 10 mg PO DAILY [facility] Last Admin: 08/22/19 09:10 Dose: 10 mg Documented by: Enoxaparin Sodium (Lovenox) 40 mg SC DAILY [facility] Last Admin: 08/22/19 09:09 Dose: 40 mg Documented by: Escitalopram Oxalate (Lexapro) 10 mg PO DAILY [facility] Last Admin: 08/22/19 09:10 Dose: 10 mg Documented by: Ferrous Gluconate (Ferrous Gluconate) 324 mg PO BIDCM [facility] Last Admin: 08/23/19 08:16 Dose: 324 mg Documented by: Fluticasone Propionate (Flonase Nasal [place]) 2 spray NASAL QHS [facility] Last Admin: 08/22/19 23:09 Dose: 2 sprays Documented by: Gabapentin (Neurontin) 600 mg PO TIDCM [facility] Last Admin: 08/23/19 08:16 Dose: 600 mg Documented by: Glucagon () 1 mg IM .X1 PRN PRN Reason: Hypoglycemia Heparin Sodium (Beef Lung) () 50 units IV UD PRN PRN Reason: PICC Line Heparin Flush Heparin Sodium (Beef Lung) () 50 units IV UD PRN PRN Reason: PICC Line Heparin Flush Hydromorphone HCl (Dilaudid Inj) 0.5 mg IV Q6H PRN PRN PRN Reason: Pain Score 6-10/10 Sodium Chloride () 1,000 mls @ 30 mls/hr IV .[id number] [facility] Last Admin: 08/21/19 21:38 Dose: 30 mls/hr Documented by: Sodium Chloride () 250 mls @ 15 mls/hr IV .[id number] PRN PRN Reason: Saline Flush Last Infusion: 08/19/19 05:13 Dose: 0 mls/hr Documented by: Sodium Chloride () 250 mls @ 15 mls/hr IV .[id number] PRN PRN Reason: Additional IVPB Infusion Vancomycin IV Pharmacy to Dose (1 ea/ Sodium Chloride) 500 mls @ 250 mls/hr IV PRN PRN; Protocol PRN Reason: Rx to Dose Meropenem 1 gm/ Sodium (Chloride) 120 mls @ 33 mls/hr IV Q8 [facility] Last Admin: 08/23/19 05:51 Dose: 33 mls/hr Documented by: Vancomycin HCl 1,500 mg/ (Sodium Chloride) 530 mls @ 250 mls/hr IV Q24H [facility] Ibuprofen (Motrin) 800 mg PO TID [facility] Last Admin: 08/23/19 05:51 Dose: 800 mg Documented by: Ipratropium [place] (Atrovent) 0.5 mg INHALATION Q6HWA.RT [facility] Last Admin: 08/23/19 07:48 Dose: 0.5 mg Documented by: Metoprolol Tartrate (Lopressor (Beta Joo)) 50 mg PO BID [facility] Last Admin: 08/22/19 23:10 Dose: 50 mg Documented by: Multivitamins (Multivitamin) 1 tablet PO DAILY@0800 [facility] Last Admin: 08/23/19 08:16 Dose: 1 tablet Documented by: Nutritional Formula ([place] - [place] Flavor) [facility] Admin: 08/23/19 08:17 Dose: 1 packet Documented by: Nystatin (Mycostatin Powder) 1 applic TOPICAL BID [facility]; Protocol Last Admin: 08/22/19 23:09 Dose: 1 applicatio Documented by: Ondansetron HCl (Zofran) 4 mg IV Q8H PRN PRN PRN Reason: NAUSEA/VOMITING Oxycodone HCl (Oxyir) 5 mg PO Q4H PRN PRN PRN Reason: Pain Score 6-10 Last Admin: 08/22/19 13:01 Dose: 5 mg Documented by: Pantoprazole Sodium (Protonix) 40 mg PO DAILY [facility] Last Admin: 08/22/19 09:10 Dose: 40 mg Documented by: Sodium Chloride () 10 - 40 ml IV UD PRN PRN Reason: SALINE FLUSH Last Admin: 08/23/19 08:16 Dose: 10 ml Documented by: Sodium Chloride () 10 - 40 ml IV UD PRN PRN Reason: Open End PICC Flush Sodium Chloride (0.9% Nacl (Sterile) Posiflush) 10 - 40 ml IV UD PRN PRN Reason: Port access or dressing change Sodium Hypochlorite (Dakins Solution 0.25% (1/2 Strength)) 1 applic TOPICAL BID [facility]; Protocol Last Admin: 08/22/19 23:11 Dose: 1 applicatio Documented by: Medical Necessity - Tobacco Use Smoking Status: Former smoker Route of nutrition/ use of supplements: [] Nutritional Intake: [] IV Site: [] Walker Catheter: [] - Assessment/Plan Antibiotics: [] Assessment/Plan: [] Active and Suspected Problems Chronic osteomyelitis of right pelvic region (Acute) Pressure injury of right buttock, stage 2 (Acute) Right ischial pressure sore, 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 Mesa. Prior cxs with MRSA, PsA, proteus, corynebacteria. Surg cx now also with ESBL ecoli. COVID neg. TTE neg for veg. Vanc JYOTI was 2. Bcx remains neg. Cont vanc, meropenem. Taken back to OR 08/[address] Mesa for inguinal abscess that extended down to bone; surg cx with [facility].. Plan at discharge will be 6 weeks of iv abx with vanc until 10/02/19 and ertapenem until 09/24/19, weekly bmp, cbc, LFT, vanc trough, and esr. Will need dose of ertapenem here prior to discharge. ID followup in 2 weeks. Will follow, updated vanc rx. D/w case manager specialist.
[2019-08-23] MEDS: oxyCODONE 5 MG Tablet PO ×2 (10:10→14:07)
[2019-08-23] MEDS: HYDROmorphone 0.5 MG/0.5 ML SYRINGE IV (10:12)
[2019-08-23] MEDS: diazePAM 5 MG Tablet PO (10:13)
--- NOTE | 2019-08-23 10:52 | CASEMGMT ---
Addendum entered by Caroline Og 08/23/19 13:51: SHAHANA received call from Tala at [facility] stating pre-cert has been obtained and pt is able to discharge today. SHAHANA faxed completed discharge paperwork to [facility] including transfer to extended care facility, signed medication list, scripts, and COVID transfer tool. Original in SNF folder and copy on pt's chart. SHAHANA spoke with RN. Pt is ready when transportation can transport pt. SHAHANA placed a call to [facility] and arranged transportation via cot for 2:00pm. Transportation form completed and placed on SNF folder and copy on pt's chart. SHAHANA completed [facility] in [facility]. Original in SNF folder and copy on pt's chart. SHAHANA updated RN and Pt on discharge and transportation time. SHAHANA placed a call to Tala at [facility] and updated her on transportation time. Plan: [facility] skilled today with [facility] transporting pt via cot at 2:00pm ANGEL Felipe Original Note: Social Work Note SHAHANA received call from Tala at [facility]. Tala states pre-cert is still pending. SHAHANA updated Tala that medically pt is ready for discharge and pt's IV antibiotics have been changed and this worker will fax over updated script. SHAHANA faxed updated clinicals to Tala at [facility]. Plan: [facility] pending pre-cert ANGEL Felipe
--- NOTE | 2019-08-23 10:56 | PCM.TXEXTCAR ---
- Diet 08/13/19 16:53 Diet: Regular Diet Is pt able to select menu?: Yes - Routine Orders/Code Status Routine Lab Work: CBC - Monday and PRN, BMP - Monday and PRN Code Status: Full Code - Wound(s) rt buttock/hip Wound Type: Pressure Injury L buttock/hip Wound Type: Pressure Injury left heel Wound Type: Pressure Injury Dressing Change: Dry Sterile Dressing right heel Wound Type: Pressure Injury Dressing Change: Dry Sterile Dressing right 2nd toe Wound Type: traumatic wound Dressing Change: Dry Sterile Dressing left ischium Wound Type: Pressure Injury Dressing Change: Dakins moistened gauze right ischium Wound Type: Surgical Incision Dressing Change: Dakins moistened gauze right lower buttock Wound Type: Pressure Injury Dressing Change: Dry Sterile Dressing R elbow Wound Type: small scabbed area rt groin ? abscess Wound Type: Surgical Incision right groin Wound Type: Open Surgical Wound Dressing Change: Dakins moistened gauze - Suggestions for Active Care Change Position every (hours): 2 - Therapies Weight Bearing: Weight bearing as tolerated Physical Therapy: Eval and Treat Occupational Therapy: Eval and Treat - Allergies/Procedures Done in Hospital Allergies/Adverse Reactions: Allergies chlorthalidone Allergy (Verified 08/12/19 16:20) Other famotidine Allergy (Verified 08/12/19 16:20) Unknown povidone-iodine [From Betadine] Allergy (Verified 08/12/19 16:20) Hives soap Adverse Reaction (Verified 08/12/19 16:20) Hives [id number] Reductase Inhibitor Adverse Reaction (Verified 08/12/19 16:20) MESSED MY LIVER UP adhesive tape Allergy (Uncoded 08/12/19 16:20) Itching/rash - Type of Care/Length of Stay Estimated LOS: Convalescent Care Less Than 30 days Type of Care Needed: Skilled Rehab Potential: Fair Prognosis: Fair - Additional Orders/Day of Discharge Day of Discharge: 08/23/19 - Dietary and Speech Recommendations Dietitian Recommendations/Changes: Continue Regular Diet as tolerated. Continue Chuy BID for wound healing. Will d/c Ensure Enlive w/ medpass as pt is refusing. - Follow Up Care Primary Care Physician: Winnie Gonzales MD [Primary Care Provider] - Within 1 Month Please Follow Up With: Clinic,Wound When: 1 week
[2019-08-23] MEDS: 0.9 % NaCl (Sterile) Posiflush 10 mL IV ×2 (10:57→14:10)
--- NOTE | 2019-08-23 11:00 | PCM.DC.SUM ---
Discharge Date and Diagnosis Date of Admission: 08/12/19 Date of Discharge: 08/23/19 - Primary Discharge Diagnosis Acute Problems: 1. osteomyelitis of the right pelvis polymicrobial: E. coli, methicillin-resistant staph aureus, B fragilis, corynebacterium on vanc and meropenem 2. pressure injury right and left ischium with infection status post debridement 08/13/2019 3. right groin abscess: OR 08/20 for debridement Cx showing a GPO Had bleeding yesterday, since stopped follow up with wound care. 4. Chronic conditions: essential hypertension, COPD, HLP, anemia, depression, anxiety: complicate care, but overall stable. 5. deconditioning SNF upon DC awaiting on precertification. - Secondary Discharge Diagnosis Chronic Problems: Chronic Problems Pressure sore of left ischium, stage 4 (Chronic) Pressure sore of left ischium, stage 3 (Chronic) 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) History of total left knee replacement (Chronic) Pressure ulcer of right buttock, stage 3 (Chronic) Skin ulcer of elbow with fat layer exposed (Chronic) Decubitus ulcer of left heel, stage 2 (Chronic) Debility (Chronic) Personal history of Methicillin resistant Staphylococcus aureus infection (Chronic) Acute osteomyelitis of right pelvic region (Chronic) History of anal cancer (Chronic) 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 Large deep decubitus ulcer posterior to the right ischial tuberosity with associated sclerosis and osseous fragmentation and erosion, increased in extent and severity in the interval. 2. There is demonstrated at this time fragmentation of the superolateral right acetabular rim raising the suspicion of osteomyelitis. 3. There is a deep soft tissue low attenuation region with several punctate air densities anterior to the right hip measuring 5.6 x 4.0 x 6.4 cm suggestive of phlegmon. This is in a region of previous surgery. There is edema of soft tissue fat posterior to this area. Electronically Signed: Anmol Simpson MD at 18:32 EDT , Service support , Consultations 08/13/19 05:31 Consult: Onc/Wound/cleaner carpet and upholstery Routine Comment: Andi: ASHLY Restrepoy: JOBY Operations: - - 08/12: 1. Excision recurrent right ischial pressure sore, Stage IV, with partial ostectomy for osteomyelitis. 2. Excision necrotic left ischial pressure sore, Stage IV, with partial ostectomy for osteomyelitis. 08/20: Surgical preparation right inguinal area and right proximal thigh area with incision and drainage and excisional debridement submuscular abscess. Summary of Care Provided: The patient is a 64 year old M presents with right hip pain. Patient on the second underwent debridement and ostectomy of the right partial ischial pressure sore. Then on underwent right groin abscess debridement. Patient was seen by infectious disease as well as plastics and reconstructive surgery. Patient's course was long but fairly well uncomplicated. Patient will be discharged to alf facility on discharge. . [] Subjective: bleeding from groin wound - Physical Exam Vitals/I&O's: Vital Signs Temp Pulse Resp BP Pulse Ox 36.7 C 74 18 128/90 H 96 08/23/19 09:00 08/23/19 09:00 08/23/19 09:00 08/23/19 09:00 08/23/19 09:00 Oxygen Flow Rate (L/min) 1 Oxygen Delivery Method Nasal Cannula Weight: 71.1 kg Body Mass Index (BMI) 24.5 Intake and Output for Last 24 Hours 08/21/19 08/22/19 08/23/19 23:59 23:59 23:59 Intake Total 2400.0 / 2900.0 1160 / 1410 610 / 610 Output Total 1250 / 2300 1700 / 2800 2100 / 2100 Balance 1150.0 / 600.0 -540 / -1390 -1490 / -1490 General: Alert, No apparent distress HEENT: Atraumatic, Normocephalic Oral: Moist Mucosa, No Gingival or Mucosal Lesions/ Ulcerations Lungs: Clear to auscultation, Normal air movement, No rhonchi, No wheeze Cardiovascular: Regular rate, Regular Rhythm, Normal S1, Normal S2 Skin: - - right groing wound clean based, no active bleeding. Psych/Mental Status: Appropriate, Flat Affect Microbiology Past 72 Hours 08/21/19 13:30 Other - Other Gram Stain - Final 08/21/19 13:30 Other - Other Wound Culture - Preliminary Staphylococcus aureus 08/21/19 13:30 Other - Other Anaerobic Culture - Preliminary Checking for anaerobes, further studies to follow. 08/16/19 14:50 Blood Culture (Wb) - Left Hand Blood Culture - Final No growth in 5 days. 08/15/19 09:30 Blood Culture (Wb) - Left Hand Blood Culture - Final No growth in 5 days. 08/13/19 15:28 Bone - Other Gram Stain - Final 08/13/19 15:28 Bone - Other Wound Culture - Final Escherichia coli Meth. resistant Staph. aureus Corynebacterium species 08/13/19 15:28 Bone - Other Anaerobic Culture - Final Bacteroides fragilis Anaerobic cocci 08/13/19 15:28 Tissue - Other Gram Stain - Final 08/13/19 15:28 Tissue - Other Wound Culture - Final Meth. resistant Staph. aureus Corynebacterium species 08/13/19 15:28 Tissue - Other Anaerobic Culture - Final Bacteroides fragilis Anaerobic cocci Prevotella melaninogenica 08/13/19 15:28 Bone - Other Gram Stain - Final 08/13/19 15:28 Bone - Other Wound Culture - Final Meth. resistant Staph. aureus Corynebacterium species 08/13/19 15:28 Bone - Other Anaerobic Culture - Final Bacteroides fragilis Anaerobic cocci 08/13/19 15:28 Tissue - Other Gram Stain - Final 08/13/19 15:28 Tissue - Other Wound Culture - Final Meth. resistant Staph. aureus Corynebacterium species 08/13/19 15:28 Tissue - Other Anaerobic Culture - Final Bacteroides fragilis 08/14/19 15:40 Blood Culture (Wb) - Left Hand Blood Culture - Final No growth in 5 days. Current Medications Amlodipine Besylate (Norvasc) 5 mg PO DAILY [facility] Last Admin: 08/22/19 09:10 Dose: 5 mg Documented by: Ascorbic Acid (Vitamin C) 500 mg PO DAILY@0800 [facility] Last Admin: 08/23/19 08:16 Dose: 500 mg Documented by: Bupropion HCl (Wellbutrin Xl) 300 mg PO QHS [facility] Last Admin: 08/22/19 23:10 Dose: 300 mg Documented by: Buspirone HCl (Buspar) 5 mg PO TID [facility] Last Admin: 08/23/19 05:51 Dose: 5 mg Documented by: Cholecalciferol (Vitamin D (25mcg)) 1,000 unit PO DAILY [facility] Last Admin: 08/22/19 09:09 Dose: 1,000 unit Documented by: Dextrose (D50w Syringe) 0 gm IV X1 PRN; Protocol PRN Reason: Hypoglycemia Diazepam (Valium) 5 mg PO 4X/DAY PRN PRN PRN Reason: SPASMS Last Admin: 08/23/19 10:13 Dose: 5 mg Documented by: Doxazosin Mesylate (Cardura) 2 mg PO QHS [facility] Last Admin: 08/22/19 23:09 Dose: 2 mg Documented by: Ezetimibe (Zetia) 10 mg PO DAILY [facility] Last Admin: 08/22/19 09:10 Dose: 10 mg Documented by: Enoxaparin Sodium (Lovenox) 40 mg SC DAILY [facility] Last Admin: 08/22/19 09:09 Dose: 40 mg Documented by: Escitalopram Oxalate (Lexapro) 10 mg PO DAILY [facility] Last Admin: 08/22/19 09:10 Dose: 10 mg Documented by: Ferrous Gluconate (Ferrous Gluconate) 324 mg PO BIDCM [facility] Last Admin: 08/23/19 08:16 Dose: 324 mg Documented by: Fluticasone Propionate (Flonase Nasal Dalton) 2 spray NASAL QHS [facility] Last Admin: 08/22/19 23:09 Dose: 2 sprays Documented by: Gabapentin (Neurontin) 600 mg PO TIDCM [facility] Last Admin: 08/23/19 08:16 Dose: 600 mg Documented by: Glucagon () 1 mg IM .X1 PRN PRN Reason: Hypoglycemia Heparin Sodium (Beef Lung) () 50 units IV UD PRN PRN Reason: PICC Line Heparin Flush Heparin Sodium (Beef Lung) () 50 units IV UD PRN PRN Reason: PICC Line Heparin Flush Hydromorphone HCl (Dilaudid Inj) 0.5 mg IV Q6H PRN PRN PRN Reason: Pain Score 6-10/10 Last Admin: 08/23/19 10:12 Dose: 0.5 mg Documented by: Sodium Chloride () 1,000 mls @ 30 mls/hr IV .[id number] [facility] Last Admin: 08/21/19 21:38 Dose: 30 mls/hr Documented by: Sodium Chloride () 250 mls @ 15 mls/hr IV .[id number] PRN PRN Reason: Saline Flush Last Infusion: 08/19/19 05:13 Dose: 0 mls/hr Documented by: Sodium Chloride () 250 mls @ 15 mls/hr IV .[id number] PRN PRN Reason: Additional IVPB Infusion Vancomycin IV Pharmacy to Dose (1 ea/ Sodium Chloride) 500 mls @ 250 mls/hr IV PRN PRN; Protocol PRN Reason: Rx to Dose Vancomycin HCl 1,500 mg/ (Sodium Chloride) 530 mls @ 250 mls/hr IV Q24H [facility] Ibuprofen (Motrin) 800 mg PO TID [facility] Last Admin: 08/23/19 05:51 Dose: 800 mg Documented by: Ipratropium Beals (Atrovent) 0.5 mg INHALATION Q6HWA.RT [facility] Last Admin: 08/23/19 07:48 Dose: 0.5 mg Documented by: Metoprolol Tartrate (Lopressor (Beta Joo)) 50 mg PO BID [facility] Last Admin: 08/22/19 23:10 Dose: 50 mg Documented by: Multivitamins (Multivitamin) 1 tablet PO DAILY@0800 [facility] Last Admin: 08/23/19 08:16 Dose: 1 tablet Documented by: Nutritional Formula ([place] - [place] Flavor) [facility] Last Admin: 08/23/19 08:17 Dose: 1 packet Documented by: Nystatin (Mycostatin Powder) 1 applic TOPICAL BID [facility]; Protocol Last Admin: 08/22/19 23:09 Dose: 1 applicatio Documented by: Ondansetron HCl (Zofran) 4 mg IV Q8H PRN PRN PRN Reason: NAUSEA/VOMITING Oxycodone HCl (Oxyir) 5 mg PO Q4H PRN PRN PRN Reason: Pain Score 6-10/10 Last Admin: 08/22/19 13:01 Dose: 5 mg Documented by: Pantoprazole Sodium (Protonix) 40 mg PO DAILY [facility] Last Admin: 08/22/19 09:10 Dose: 40 mg Documented by: Sodium Chloride () 10 - 40 ml IV UD PRN PRN Reason: SALINE FLUSH Last Admin: 08/23/19 08:16 Dose: 10 ml Documented by: Sodium Chloride () 10 - 40 ml IV UD PRN PRN Reason: Open End PICC Flush Sodium Chloride (0.9% Nacl (Sterile) Posiflush) 10 - 40 ml IV UD PRN PRN Reason: Port access or dressing change Last Admin: 08/23/19 10:57 Dose: 10 ml Documented by: Sodium Hypochlorite (Dakins Solution 0.25% (1/2 Strength)) 1 applic TOPICAL BID [facility]; Protocol Last Admin: 08/22/19 23:11 Dose: 1 applicatio Documented by: Discharge Diet: No Restrictions Home Medications: Medications to take at Discharge Escitalopram Oxalate [Lexapro] 10 mg PO DAILY 03/22/16 Fluticasone 0.05% [Flonase Nasal Dalton] 2 spray NASAL DAILY 03/22/16 Multivitamin [Multiple Vitamins] 1 each PO DAILY 03/22/16 buPROPion XL [Wellbutrin Xl] 300 mg PO DAILY 03/22/16 busPIRone [Buspar] 5 mg PO TID 03/22/16 Tiotropium Beals [Spiriva Respimat] 2 puff INHALATION DAILY 10/20/16 Tizanidine HCl [Zanaflex] 4 mg PO Q8H PRN PRN 12/27/16 Metoprolol Tartrate [Lopressor (beta joo)] 50 mg PO BID 01/19/18 Pantoprazole Sodium [Protonix] 40 mg PO DAILY 03/19/18 Amlodipine [Norvasc] 5 mg PO DAILY 08/22/18 Ascorbic Acid [Vitamin C] 500 mg PO DAILY@0800 08/22/18 Ferrous Gluconate 324 mg PO BID 08/22/18 Argin/Glut/Cahmb/Collag/Mv-Min [[place]uy Packet] 1 pack BC TID 10/18/18 Cholecalciferol (VIT D3) [Vitamin D3] 1,000 unit PO DAILY 10/18/18 Ezetimibe [Zetia] 10 mg PO DAILY 10/18/18 Nystatin [Mycostatin] 1 applic TOPICAL BID 02/08/19 Diazepam [Valium] 5 mg PO 4X/DAY PRN PRN #30 tab 02/14/19 Doxazosin Mesylate [Cardura] 2 mg PO QHS 08/12/19 Gabapentin [Neurontin] 600 mg PO TIDCM 08/12/19 Ibuprofen 800 mg PO TID 08/12/19 Ertapenem Sodium [Ertapenem] 1 gm IV DAILY 37 Days #37 vial 08/19/19 Oxycodone [Oxyir] 5 mg PO Q4H PRN PRN 3 Days #12 tab 08/23/19 Vancomycin IV 1,500 mg IV Q24H 40 Days #40 vial 08/23/19 Following Prescrptions Were Given to Patient: Ertapenem Sodium [Ertapenem] 1 gm IV DAILY 37 Days #37 vial Prescription Printed Oxycodone [Oxyir] 5 mg PO Q4H PRN PRN 3 Days #12 tab PRN Reason: Pain Score 6-10/10 Prescription Printed Vancomycin IV 1,500 mg IV Q24H 40 Days #40 vial Prescription Printed Primary Care Physician: Winnie Gonzales MD [Primary Care Provider] - Within 1 Month Please Follow Up With: Clinic,Wound When: 1 week Disposition: Long Term facility Minutes spent on discharge:: 35 Patient Condition:: Fair Medical Necessity - Tobacco Use Smoking Status: Former smoker Meaningful Use Info Meaningful Use Diagnoses (Choose all that apply): None applicable Inpatient E&M: [id number] Disch Hosp
[2019-08-23] MEDS: Escitalopram Oxalate 10 MG Tablet PO (11:18)
[2019-08-23] MEDS: Pantoprazole Sodium 40 MG Tablet PO (11:18)
[2019-08-23] MEDS: Ezetimibe 10 MG Tablet PO (11:18)
[2019-08-23] MEDS: amLODIPine 5 MG Tablet PO (11:18)
[2019-08-23 11:19] VITALS: PULSE 74
[2019-08-23] MEDS: Enoxaparin 40 MG/0.4 ML Syringe SC (11:19)
[2019-08-23] MEDS: Metoprolol Tartrate 50 MG Tablet PO (11:19)
[2019-08-23] MEDS: Nystatin Powder 15gm Bottle 1 APPLIC TOPICAL (11:20)
[2019-08-23] MEDS: DAKIN'S SOL HALF STRENGTH (=0.25%) 1 APPLIC TOPICAL (11:20)
[2019-08-23 14:14] VITALS: BP 130/72; PULSE 82; RESP 18; TEMP 36.9; O2SAT 96
== END 2019-08-23 14:20 | disposition skilled nursing facility (03) | DRG 463 ==
LOC: ED 19:24 → MS3 20:54
PROVIDERS: Internal Medicine; Internal Medicine Infectious Disease; Surgery; Admitting Provider Family Medicine; Emergency Provider Emergency Medicine; PCP Internal Medicine
PROC: 0QB20ZX Excision of Right Pelvic Bone, Open Approach, Diagnostic (ICD-10-PCS; principal; 2019-08-13 13:30)
PROC: 0JBL0ZZ Excision of Right Upper Leg Subcutaneous Tissue and Fascia, Open Approach (ICD-10-PCS; principal; 2019-08-21 12:45)
DX: M86.18 Other acute osteomyelitis, other site (principal); L89.624 Pressure ulcer of left heel, stage 4; L89.314 Pressure ulcer of right buttock, stage 4; L89.324 Pressure ulcer of left buttock, stage 4; I96 Gangrene, not elsewhere classified; L02.214 Cutaneous abscess of groin; R78.81 Bacteremia; E46 Unspecified protein-calorie malnutrition; L97.119 Non-pressure chronic ulcer of right thigh with unspecified severity; M86.651 Other chronic osteomyelitis, right thigh; B95.62 Methicillin resistant Staphylococcus aureus infection as the cause of diseases classified elsewhere; B96.20 Unspecified Escherichia coli [E. coli] as the cause of diseases classified elsewhere; B96.6 Bacteroides fragilis [B. fragilis] as the cause of diseases classified elsewhere; I10 Essential (primary) hypertension; J44.9 Chronic obstructive pulmonary disease, unspecified; E78.5 Hyperlipidemia, unspecified; D63.8 Anemia in other chronic diseases classified elsewhere; F32.9 Major depressive disorder, single episode, unspecified; F41.9 Anxiety disorder, unspecified; Z96.652 Presence of left artificial knee joint; L89.316 Pressure-induced deep tissue damage of right buttock; L89.626 Pressure-induced deep tissue damage of left heel; L89.616 Pressure-induced deep tissue damage of right heel; R53.81 Other malaise; T66.XXXS Radiation sickness, unspecified, sequela; Y84.2 Radiological procedure and radiotherapy as the cause of abnormal reaction of the patient, or of later complication, without mention of misadventure at the time of the procedure; B18.2 Chronic viral hepatitis C; K21.9 Gastro-esophageal reflux disease without esophagitis; Z68.29 Body mass index [BMI] 29.0-29.9, adult; Z86.14 Personal history of Methicillin resistant Staphylococcus aureus infection; Z85.048 Personal history of other malignant neoplasm of rectum, rectosigmoid junction, and anus; Z92.3 Personal history of irradiation; Z92.21 Personal history of antineoplastic chemotherapy; Z79.2 Long term (current) use of antibiotics; Z79.899 Other long term (current) drug therapy; Z87.891 Personal history of nicotine dependence; L89.150 Pressure ulcer of sacral region, unstageable; L89.159 Pressure ulcer of sacral region, unspecified stage
CPT/HCPCS: 11042; 11043; 36415; 36569; 72193; 80048; 80053; 80202; 82962; 83540; 83550; 83605; 83735; 84134; 85025; 85027; 85610; 85730; 86644; 86850; 86900; 86901; 86920; 86922; 87040; 87070; 87075; 87076; 87077; 87102; 87149; 87176; 87186; 87205; 87206; 87635; 88304; 88305; 88311; 88312; 93005; 93306; 94640; 94799; 97110; 97162; 97166; 97530; 97535; 97802; 99251; 99284; J2185; J7030; J7040; J7050; P9016; Q9967; A4216; G0463; J0696; J2405; U0003

== ENCOUNTER 2019-09-09 13:30 | Outpatient (RCR) | payer MEDICARE, MEDICAID, SELFPAY ==
[2019-08-12 14:53] VITALS: BP 108/41; PULSE 63; RESP 18; TEMP 36.3
--- NOTE | 2019-08-12 16:14 | PN.PCM_ITS ---
(1) Right ischial pressure sore, stage 4 Status: Chronic Current Visit: Yes Code(s): L89.314 - Pressure ulcer of right buttock, stage 4 (2) Pressure injury of right buttock, stage 2 Status: Acute Current Visit: Yes Code(s): L89.312 - Pressure ulcer of right buttock, stage 2 (3) Pressure sore of left ischium, stage 3 Status: Chronic Current Visit: Yes Code(s): L89.323 - Pressure ulcer of left buttock, stage 3 (4) Chronic osteomyelitis of right pelvic region Status: Chronic Current Visit: Yes Code(s): M86.651 - Other chronic osteomyelitis, right thigh (5) Debility Status: Chronic Current Visit: Yes Code(s): R53.81 - Other malaise (6) Personal history of Methicillin resistant Staphylococcus aureus infection Status: Chronic Current Visit: Yes Code(s): Z86.14 - Personal history of Methicillin resistant Staphylococcus aureus infection (7) History of anal cancer Status: Chronic Current Visit: Yes Code(s): Z85.048 - Personal history of other malignant neoplasm of rectum, rectosigmoid junction, and anus (8) Late effect of radiation Status: Chronic Current Visit: Yes Code(s): T66.XXXS - Radiation sickness, unspecified, sequela Comment: right ischial area (9) Soft tissue radionecrosis Status: Chronic Current Visit: Yes Code(s): L59.8 - Other specified disorders of the skin and subcutaneous tissue related to radiation; Y84.2 - Radiological procedure and radiotherapy as the cause of abnormal reaction of the patient, or of later complication, without mention of misadventure at the time of the procedure Type of Wound Date of Service: 08/12/19 Chief Complaint: Recurrent right ischial pressure sore, Stage IV, and recent l eft ischial pressure sore, Stage III. 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 Wound care - is normally Dakin's dressing to the right ischial pressure sore. Ideally daily, but he now relies on home health to do his dressing changes since his mother is and he is living on his own. Dressings are every other day. Silver dressing to left ischial pressure sore Monday, Monday and Monday when home health changes it. Periwound is excoriated. Today we are sending him to ED so will do wet to dry saline dressing on all the ulcer. Patient is living alone and sitting in his recliner all the time. Operative culture - Proteus mirabilis. He was discharged on Cefepime IV which he has completed. Pathology - negative for osteomyelitis. Prealbumin from 02/12/19 was 25.8. Encourage nutritional supplementation with protein to help the healing process. CT Pelvis from 02/13/19 showed continued air-filled deep decubitus ulcer extending down to the surface of the right ischial tuberosity with chronic sclerosis and erosive changes of the right ischial tuberosity that are not substantially changed from the prior exam of September 18, 2018. No further bone erosion or extension. No additional acute pelvic findings or changes.. Today he denies fever. His appetite is good. Progress of Wound: Right ischial ulcer with increased slough. New ulcer on right inferior to the ischial ulcer. Left ischial ulcer with increased slough and difficult to stage. Periwound is extremely red and excoriated. - Physical Exam Vital Signs Temp Pulse Resp BP 97.3 F L 63 18 108/41 L 08/12/19 14:53 08/12/19 14:53 08/12/19 14:53 08/12/19 14:53 General: Alert, Oriented x3, Cooperative HEENT: Atraumatic Oral: Moist Mucosa Lungs: Normal air movement Cardiovascular: Regular rate Extremities: Capillary Refill Less than 3 Seconds Skin: Ulcer/ Wound - Right ischial stage IV ulcer. New ulcer inferior to the the ischial ulcer which is a stage 2. Left ischial ulcer is at least a stage 3. Difficult to stage due to the amount of slough. Wound Measurements and Assessment WC - Nurse 1 - General Ulcer Measurement Start: 08/12/19 14:53 Freq: Status: Active Protocol: Activity Type Activity Date Activity User E-Sign Co-Sign Detail Recorded Client Recorded Date Recorded By Document 08/12/19 14:53 RB [id number] 08/12/19 15:08 RB 08/12/19 14:53 Wound Center Nurse 1 [Ulcer Assessment] #12 L Ischium -Combined with other wound No -Current Size (cm) - Length 3 -Current Size (cm) - Width 2.8 -Current Size (cm) - Depth 0.9 -Total Square Cm 8.4 -Epithelialization None Present -Tunneling No -Undermining/Tunneling No -Circular Undermining No -Exudate Amt Large -Exudate Type Serosanguineous -Wound Margin Thickened -Granulation Amt Small (1-33%) -Granulation Quality [place] -Slough/Fibrin Yes -Necrosis Amt Large (67-100%) -Necrotic Tissue Type Adherent Slough -Structure Exposed N/A -Texture (Nathalie-wound Skin Appearance) Assessed -Moisture (Nathalie-wound Skin Appearance Assessed ) -Color (Nathalie-wound Skin Appearance) Erythema -Temperature (Nathalie-wound Skin No Abnormality Appearance) (Pt Warm) -Tenderness on Palpation (Nathalie-wound No Skin Appearance) -Ulcer Cleansing Wound Cleanser -Foul Odor after Cleansing No -Anesthetic Used 4% Lidocaine Solution #11 Right Buttock post op -Combined with other wound No -Current Size (cm) - Length 5.5 -Current Size (cm) - Width 3.5 -Current Size (cm) - Depth 2.2 -Total Square Cm 19.25 -Tunneling No -Undermining/Tunneling Yes -Undermining/Tunneling Starts (O' 1 clock) -Undermining/Tunneling Ends (O'clock) 5 -Maximum Distance (cm) 4.5 -Circular Undermining No -Exudate Amt Large -Exudate Type Serosanguineous -Wound Margin Thickened & Rolled Under -Granulation Amt Small (1-33%) -Granulation Quality [place] -Slough/Fibrin Yes -Necrosis Amt Large (67-100%) -Necrotic Tissue Type Adherent Slough -Structure Exposed Bone -Texture (Nathalie-wound Skin Appearance) Assessed, Excoriation -Moisture (Nathalie-wound Skin Appearance Assessed ) -Color (Nathalie-wound Skin Appearance) Assessed, Erythema -Temperature (Nathalie-wound Skin No Abnormality Appearance) (Pt Warm) -Tenderness on Palpation (Nathalie-wound No Skin Appearance) -Ulcer Cleansing Wound Cleanser -Foul Odor after Cleansing No -Anesthetic Used 4% Lidocaine Solution Musculoskeletal: Tenderness - having severe right hip pain. Difficulty with movement and tansferring. Neurological: Neuro grossly intact Psych/Mental Status: Normal Affect, Appropriate Debridement Note Wound debrided: Ischial ulcer Laterality: Right Wound Grade/Stage: Stage IV Type of Debridement: Excisional debridement Anesthesia Used: 5% Lidocaine Gel Depth: Down to and including healthy tissue, in the subcutaneous layer, to muscle Percentage of wound debrided: 100 Instrument Used: 7mm curette Tissue Removed: Subcutaneous tissue and slough into the muscle with bone exposure Severity: Fat Layer Exposed Amount of bleeding with debridement: Mild Bleeding Controlled with: Pressure Patient tolerated procedure well - Additional Wound Wound debrided: Inferior ischial ulcer Laterality: Right Type of Debridement: Excisional debridement Anesthesia Used: 4% Lidocaine Solution Depth: Down to and including healthy tissue, in the subcutaneous layer Percentage of wound debrided: 100 Instrument Used: 5mm curette Tissue Removed: Subcutaneous tissue and slough Severity: Limited To Skin Breakdown Amount of bleeding with debridement: None Patient tolerated procedure: Patient tolerated procedure well - Additional Wound Wound debrided: Ischial ulcer Laterality: Left Wound Grade/Stage: Stage 3. Difficult to stage due to the amount slough and biofilm Type of Debridement: Selective debridement Anesthesia Used: 4% Lidocaine Solution Depth: in the subcutaneous layer Percentage of wound debrided: 40 Instrument Used: 5mm curette Tissue Removed: Difficult to remove Severity: Fat Layer Exposed Amount of bleeding with debridement: Mild Bleeding Controlled with: Pressure Patient tolerated procedure: Patient tolerated procedure well Assessment/Plan Active Problems Pressure sore of left ischium, stage 3 (Chronic) 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) Pressure injury of right buttock, stage 2 (Acute) Debility (Chronic) Personal history of Methicillin resistant Staphylococcus aureus infection (Chronic) History of anal cancer (Chronic) 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 Recurrent right ischial pressure sore, Stage IV. 2. 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 3. Osteomyelitis. 4. History of MRSA. 5. Left ischial pressure sore, Stage III. 6. History of anal CA treated with chemotherapy and radiation therapy. Plan: Today he is being sent to the ED for further evaluation of his severe right hip pain. Also concerned about his left ischial ulcer is much worse and may need surgically debrided. Will place wet to dry saline dressings on the 3 ulcers His periwound is very red and excoriated. His wound care normally is Dakin's dressing changes to the right ischial ulcer ideally daily but he may have to have it 3 times per week because he relies on home health to do the dressing changes and he is not able to do it himself. Periwound is excoriated and red, raised rash, most likely yeast. Will have him apply nystatin cream twice daily and start Diflucan daily x 10 days (he has tolerated this medication in the past). He is aware of the possibility that if the right ischial pressure sore worsens because of suboptimal wound care, then he would need to be admitted for further surgery and for evaluation for an ECF. He voiced understanding. S ilver dressing was also applied to the left ischial pressure sore. He has been sitting more now that he is home. He is sitting in his recliner more. Instructed him to try to make sure not to sit for long periods of time and to try to off load. He has started using a cushion that he has to help with off loading. He is having difficulty with the recent passing of his mother. He is currently living alone and has to sell her house, so he needs to find a new place to live. Discussed with him about assisted living and he states he is thinking about it. Prealbumin from 02/12/19 was 25.8. Encourage nutritional supplementation with protein to help the healing process. Since the pathology is negative for osteomyelitis, after the IV antibiotics are completed, can schedule further debridement with wound closure with a myocutaneous flap. However the flap is elective and is on hold because of the Coronavirus pandemic. When the Coronavirus is contained, can then proceed with further debridement and partial ostectomy prior to wound closure with a myocutaneous flap. Depending on how much the left ischial pressure sore progresses down to the bone, additional surgery may be necessary there as well. Will need to obtain the old records from [facility] before any myocutaneous flap surgery is performed. [id number]: [id number] Sue musc/fascia 20 sq cm/< - right ischial ulcer Multi Select Codes - Integumentary Integumentary CPT Codes: 26807 Sue subq tissue 20 sq cm/< - right inferior ulcer and left ischial ulcer
--- NOTE | 2019-08-12 16:48 | WC ---
Patient was sent to the ER for Eval and possible admission for surgical debridement.
[2019-09-09 13:15] VITALS: BP 95/47; PULSE 61; RESP 18; TEMP 36.4; BMI 28.5
--- NOTE | 2019-09-09 13:33 | WC ---
R HEEL WITH DTI. 4.5CM L X 3.6 CM W. NOT OPEN AT THIS TIME. 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
--- NOTE | 2019-09-09 16:15 | PCM.WC.PN ---
(1) Pressure sore of left ischium, stage 4 Status: Chronic Code(s): L89.324 - Pressure ulcer of left buttock, stage 4 (2) Right ischial pressure sore, stage 4 Status: Chronic Code(s): L89.314 - Pressure ulcer of right buttock, stage 4 (3) Ulcer of right thigh Status: Chronic Code(s): L97.119 - Non-pressure chronic ulcer of right thigh with unspecified severity (4) Sacral pressure ulcer Status: Chronic Qualifiers: Pressure injury stage: unstageable Qualified Code(s): L89.150 - Pressure ulcer of sacral region, unstageable Code(s): L89.159 - Pressure ulcer of sacral region, unspecified stage (5) Pressure ulcer, heel, right, unstageable Status: Chronic Code(s): L89.610 - Pressure ulcer of right heel, unstageable (6) Decubitus ulcer of left heel, stage 4 Status: Chronic Code(s): L89.624 - Pressure ulcer of left heel, stage 4 (7) Pressure ulcer of toe of right foot Status: Chronic Qualifiers: Pressure injury stage: unstageable Qualified Code(s): L89.890 - Pressure ulcer of other site, unstageable Code(s): L89.899 - Pressure ulcer of other site, unspecified stage (8) Debility Status: Chronic Code(s): R53.81 - Other malaise (9) Chronic osteomyelitis of right pelvic region Status: Chronic Code(s): M86.651 - Other chronic osteomyelitis, right thigh (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 Code(s): L59.8 - Other specified disorders of the skin and subcutaneous tissue related to radiation; Y84.2 - Radiological procedure and radiotherapy as the cause of abnormal reaction of the patient, or of later complication, without mention of misadventure at the time of the procedure (11) Late effect of radiation Status: Chronic Code(s): T66.XXXS - Radiation sickness, unspecified, sequela Comment: right ischial area (12) History of anal cancer Status: Chronic Code(s): Z85.048 - Personal history of other malignant neoplasm of rectum, rectosigmoid junction, and anus (13) Methicillin resistant Staphylococcus aureus infection Status: Chronic Code(s): A49.02 - Methicillin resistant Staphylococcus aureus infection, unspecified site Type of Wound Date of Service: 09/09/19 Chief Complaint: Recurrent right ischial pressure sore, Stage IV, left ischial pressure sore, Stage IV, Right proximal thigh ulcer from abscess drainage, new sacral pressure sore and bilateral heel pressure sore and right second dorsal toe pressure ulcer. History of Wound: Surgery 08/21/19 - Surgical preparation right inguinal area and right proximal thigh area with incision and drainage and excisional debridement submuscular abscess. Surgery 08/13/19 - 1. Excision recurrent right ischial pressure sore, Stage IV, with partial ostectomy for osteomyelitis. 2. Excision necrotic left ischial pressure sore, Stage IV, with partial ostectomy for osteomyelitis. Surgery 02/11/19 - Excision recurrent pressure sore right ischial area, Stage IV, with partial ostectomy for osteomyelitis. Wound care - is normally Dakin's dressing to the right ischial pressure sore. Ideally daily, but he now relies on home health to do his dressing changes since his mother is and he is living on his own. Dressings are every other day. Silver dressing to left ischial pressure sore Monday, Monday and Monday when home health changes it. Periwound is excoriated. Today we are sending him to ED so will do wet to dry saline dressing on all the ulcer. Patient is living alone and sitting in his recliner all the time. Operative culture - Proteus mirabilis. He was discharged on Cefepime IV which he has completed. Pathology - negative for osteomyelitis. Prealbumin from 02/12/19 was 25.8. Encourage nutritional supplementation with protein to help the healing process. CT Pelvis from 02/13/19 showed continued air-filled deep decubitus ulcer extending down to the surface of the right ischial tuberosity with chronic sclerosis and erosive changes of the right ischial tuberosity that are not substantially changed from the prior exam of September 18, 2018. No further bone erosion or extension. No additional acute pelvic findings or changes.. Today he denies fever. His appetite is good. Progress of Wound: Right ischial ulcer with increased slough. New ulcer on right inferior to the ischial ulcer. Left ischial ulcer with increased slough and difficult to stage. Periwound is extremely red and excoriated. - Physical Exam Vital Signs Temp Pulse Resp BP 97.6 F L 61 18 95/47 L 09/09/19 13:15 09/09/19 13:15 09/09/19 13:15 09/09/19 13:15 General: Alert, Oriented x3 HEENT: Atraumatic Oral: Moist Mucosa Lungs: Normal air movement Cardiovascular: Regular rate Abdomen: Soft Extremities: Capillary Refill Less than 3 Seconds, Edema Skin: Ulcer/ Wound - Right ischial and Left ischial ulcers that have bone exposure. Sacral unstagable ulcer. Right inguinal/proximal thigh ulcer beefy pink, bilateral heel ulcers- right ulcer unstageable with betadine. Left heel ulcer stage IV. Right second dorsal toe ulcer. Wound Measurements and Assessment WC - Nurse 1 - General Ulcer Measurement Start: 08/12/19 14:53 Freq: Status: Active Protocol: Activity Type Activity Date Activity User E-Sign Co-Sign Detail Recorded Client Recorded Date Recorded By Document 09/09/19 13:15 [facility] [id number] 09/09/19 13:33 [facility] 09/09/19 13:15 Wound Center Nurse 1 [Ulcer Assessment] # 16- L HEEL -Combined with other wound No -Current Size (cm) - Length 2 -Current Size (cm) - Width 2 -Current Size (cm) - Depth 0.1 -Total Square Cm 4 -Date of Last Picture (Recall this 09/09/19 field) -Photo Taken Yes -Epithelialization None Present -Tunneling No -Undermining/Tunneling No -Circular Undermining No -Exudate Amt None Present -Wound Margin Distinct, Outline Attached -Granulation Amt None Present (0 %) -Slough/Fibrin Yes -Necrosis Amt Large (67-100%) -Necrotic Tissue Type Eschar -Texture (Nathalie-wound Skin Appearance) Assessed, Scarring -Moisture (Nathalie-wound Skin Appearance Assessed ) -Color (Nathalie-wound Skin Appearance) Assessed, Erythema -Temperature (Nathalie-wound Skin No Abnormality Appearance) (Pt Warm) -Tenderness on Palpation (Nathalie-wound Yes Skin Appearance) -Ulcer Cleansing SOAPY WATER -Foul Odor after Cleansing No -Anesthetic Used 4% Lidocaine Solution #15- SACRAL -Combined with other wound No -Current Size (cm) - Length 2.6 -Current Size (cm) - Width 2 -Current Size (cm) - Depth 0.1 -Total Square Cm 5.2 -Date of Last Picture (Recall this 09/09/19 field) -Photo Taken Yes -Epithelialization None Present -Tunneling No -Undermining/Tunneling No -Circular Undermining No -Exudate Amt Large -Exudate Type Serosanguineous -Wound Margin Distinct, Outline Attached -Granulation Amt None Present (0 %) -Slough/Fibrin Yes -Necrosis Amt Large (67-100%) -Necrotic Tissue Type Adherent Slough -Texture (Nathalie-wound Skin Appearance) Assessed, Scarring -Moisture (Nathalie-wound Skin Appearance Assessed ) -Color (Nathalie-wound Skin Appearance) Assessed, Erythema -Temperature (Nathalie-wound Skin No Abnormality Appearance) (Pt Warm) -Tenderness on Palpation (Nathalie-wound No Skin Appearance) -Ulcer Cleansing SOAPY WATER -Foul Odor after Cleansing No -Anesthetic Used 4% Lidocaine Solution #14- L BUTTOCK POST OP -Combined with other wound No -Current Size (cm) - Length 4 -Current Size (cm) - Width 7.5 -Current Size (cm) - Depth 2 -Total Square Cm 30.0 -Date of Last Picture (Recall this 09/09/19 field) -Photo Taken Yes -Epithelialization None Present -Tunneling No -Undermining/Tunneling No -Circular Undermining No -Exudate Amt Large -Exudate Type Serosanguineous -Wound Margin Distinct, Outline Attached -Granulation Amt Large (67-100%) -Granulation Quality Red -Slough/Fibrin Yes -Necrosis Amt Small (1-33%) -Necrotic Tissue Type Adherent Slough -Structure Exposed Bone -Texture (Nathalie-wound Skin Appearance) Assessed, Scarring -Moisture (Nathalie-wound Skin Appearance Assessed ) -Color (Nathalie-wound Skin Appearance) Assessed -Temperature (Nathalie-wound Skin No Abnormality Appearance) (Pt Warm) -Tenderness on Palpation (Nathalie-wound Yes Skin Appearance) -Ulcer Cleansing SAOAPY WATER -Foul Odor after Cleansing No -Anesthetic Used 4% Lidocaine Solution #13- R UPPER THIGH POST OP -Combined with other wound No -Current Size (cm) - Length 12.7 -Current Size (cm) - Width 4.4 -Current Size (cm) - Depth 1.6 -Total Square Cm 55.88 -Date of Last Picture (Recall this 09/09/19 field) -Photo Taken Yes -Epithelialization None Present -Tunneling No -Undermining/Tunneling No -Circular Undermining No -Exudate Amt Large -Exudate Type Serosanguineous -Wound Margin Distinct, Outline Attached -Granulation Amt Large (67-100%) -Granulation Quality Red -Slough/Fibrin Yes -Necrosis Amt Small (1-33%) -Necrotic Tissue Type Adherent Slough -Texture (Nathalie-wound Skin Appearance) Assessed, Scarring -Moisture (Nathalie-wound Skin Appearance Assessed ) -Color (Nathalie-wound Skin Appearance) Assessed -Temperature (Nathalie-wound Skin No Abnormality Appearance) (Pt Warm) -Tenderness on Palpation (Nathalie-wound Yes Skin Appearance) -Ulcer Cleansing SOAPY WATER -Foul Odor after Cleansing No -Anesthetic Used 4% Lidocaine Solution #11 Right Buttock post op -Combined with other wound No -Current Size (cm) - Length 6 -Current Size (cm) - Width 4.2 -Current Size (cm) - Depth 2.8 -Total Square Cm 25.2 -Date of Last Picture (Recall this 09/09/19 field) -Photo Taken Yes -Epithelialization None Present -Tunneling No -Undermining/Tunneling Yes -Undermining/Tunneling Starts (O' 11 clock) -Undermining/Tunneling Ends (O'clock) 2 -Maximum Distance (cm) 4 -Circular Undermining No -Exudate Amt Large -Exudate Type Serosanguineous -Wound Margin Distinct, Outline Attached -Granulation Amt Medium (34-66%) -Granulation Quality Red -Slough/Fibrin Yes -Necrosis Amt Large (67-100%) -Necrotic Tissue Type Adherent Slough -Structure Exposed Bone -Texture (Nathalie-wound Skin Appearance) Assessed, Scarring -Moisture (Nathalie-wound Skin Appearance Assessed ) -Color (Nathalie-wound Skin Appearance) Assessed -Temperature (Nathalie-wound Skin No Abnormality Appearance) (Pt Warm) -Tenderness on Palpation (Nathalie-wound Yes Skin Appearance) -Ulcer Cleansing SOAPY WATER -Foul Odor after Cleansing No -Anesthetic Used 4% Lidocaine Solution WC - Nurse 2 - General Ulcer CM Notes Start: 08/12/19 14:53 Freq: Status: Active Protocol: Activity Type Activity Date Activity User E-Sign Co-Sign Detail Recorded Client Recorded Date Recorded By Document 09/09/19 14:16 [facility] [id number] 09/09/19 14:36 [facility] 09/09/19 14:16 Wound Center Nurse 2 [Procedure/Treatment] # 16- L HEEL -Time 14:17 -Correct Patient Yes -Correct Side, Site, Position Yes -Correct Procedure Yes -Procedure Performed Yes -Type of Procedure Debridement -Clinical Debridement Subcutaneous -Post Debridement Size (cm) - Length 2.5 -Post Debridement Size (cm) - Width 2.8 -Post Debridement Size (cm) - Depth 0.2 -Total Square Cm 7.00 -Wound/Ulcer Outcome Not Healed -Ulcer Cleansing Rinsed/ Irrigated with Saline -Bioengineered Tissue No -Bleeding Controlled with Pressure -Offloading Yes -Treatment Response Procedure Tolerated Well #15- SACRAL -Time 14:21 -Correct Patient Yes -Correct Side, Site, Position Yes -Correct Procedure Yes -Procedure Performed Yes -Type of Procedure Debridement -Clinical Debridement Selective -Post Debridement Size (cm) - Length 2.5 -Post Debridement Size (cm) - Width 1.7 -Post Debridement Size (cm) - Depth 0.1 -Total Square Cm 4.25 -Wound/Ulcer Outcome Not Healed -Ulcer Cleansing Rinsed/ Irrigated with Saline -Foul Odor after Cleansing No -Bioengineered Tissue No -Bleeding Controlled with Pressure -Offloading No -Treatment Response Procedure Tolerated Well #14- L BUTTOCK POST OP -Time 14:21 -Correct Patient Yes -Correct Side, Site, Position Yes -Correct Procedure Yes -Procedure Performed Yes -Type of Procedure Debridement -Clinical Debridement Muscle -Post Debridement Size (cm) - Length 4.5 -Post Debridement Size (cm) - Width 7.5 -Post Debridement Size (cm) - Depth 2.2 -Total Square Cm 33.75 -Wound/Ulcer Outcome Not Healed -Ulcer Cleansing Rinsed/ Irrigated with Saline -Foul Odor after Cleansing No -Bioengineered Tissue No -Bleeding Controlled with Pressure,Silver Nitrate -Offloading No -Treatment Response Procedure Tolerated Well #13- R UPPER THIGH POST OP -Time 14:21 -Correct Patient Yes -Correct Side, Site, Position Yes -Correct Procedure Yes -Procedure Performed Yes -Type of Procedure Debridement -Clinical Debridement Muscle -Post Debridement Size (cm) - Length 12.5 -Post Debridement Size (cm) - Width 5.0 -Post Debridement Size (cm) - Depth 2.0 -Total Square Cm 62.50 -Wound/Ulcer Outcome Not Healed -Ulcer Cleansing Rinsed/ Irrigated with Saline -Foul Odor after Cleansing No -Bioengineered Tissue No -Bleeding Controlled with Pressure -Offloading No -Treatment Response Procedure Tolerated Well #11 Right Buttock post op -Time 14:21 -Correct Patient Yes -Correct Side, Site, Position Yes -Correct Procedure Yes -Procedure Performed Yes -Type of Procedure Debridement -Clinical Debridement Muscle -Post Debridement Size (cm) - Length 7.0 -Post Debridement Size (cm) - Width 4.5 -Post Debridement Size (cm) - Depth 3.8 -Total Square Cm 31.50 -Wound/Ulcer Outcome Not Healed -Ulcer Cleansing Rinsed/ Irrigated with Saline -Foul Odor after Cleansing No -Bioengineered Tissue No -Bleeding Controlled with Pressure -Offloading No -Treatment Response Procedure Tolerated Well [See Physician Procedure note for Specifics] Pain Scale: 0-10 Numeric [Pain] -Is Patient Pain Free? Yes Musculoskeletal: Muscle Wasting, Tenderness Neurological: Neuro grossly intact Psych/Mental Status: Normal Affect, Appropriate Debridement Note Post-Debridement Measurements/Treatment WC - Nurse 2 - General Ulcer CM Notes Start: 08/12/19 14:53 Freq: Status: Active Protocol: Activity Type Activity Date Activity User E-Sign Co-Sign Detail Recorded Client Recorded Date Recorded By Document 08/12/19 16:43 PL [id number] 08/12/19 16:47 PL Document 09/09/19 14:16 [id number] 09/09/19 14:36 08/12/19 09/09/19 16:43 14:16 Wound Center Nurse 2 # 16- L HEEL -Time 14:17 -Correct Patient Yes -Correct Side, Site, Position Yes -Correct Procedure Yes -Procedure Performed Yes -Type of Procedure Debridement -Clinical Debridement Subcutaneous -Post Debridement Size (cm) - Length 2.5 -Post Debridement Size (cm) - Width 2.8 -Post Debridement Size (cm) - Depth 0.2 -Total Square Cm 7.00 -Wound/Ulcer Outcome Not Healed -Ulcer Cleansing Rinsed/ Irrigated with Saline -Bioengineered Tissue No -Bleeding Controlled with Pressure -Offloading Yes -Treatment Response Procedure Tolerated Well #15- SACRAL -Time 14:21 -Correct Patient Yes -Correct Side, Site, Position Yes -Correct Procedure Yes -Procedure Performed Yes -Type of Procedure Debridement -Clinical Debridement Selective -Post Debridement Size (cm) - Length 2.5 -Post Debridement Size (cm) - Width 1.7 -Post Debridement Size (cm) - Depth 0.1 -Total Square Cm 4.25 -Wound/Ulcer Outcome Not Healed -Ulcer Cleansing Rinsed/ Irrigated with Saline -Foul Odor after Cleansing No -Bioengineered Tissue No -Bleeding Controlled with Pressure -Offloading No -Treatment Response Procedure Tolerated Well #14- L BUTTOCK POST OP -Time 14:21 -Correct Patient Yes -Correct Side, Site, Position Yes -Correct Procedure Yes -Procedure Performed Yes -Type of Procedure Debridement -Clinical Debridement Muscle -Post Debridement Size (cm) - Length 4.5 -Post Debridement Size (cm) - Width 7.5 -Post Debridement Size (cm) - Depth 2.2 -Total Square Cm 33.75 -Wound/Ulcer Outcome Not Healed -Ulcer Cleansing Rinsed/ Irrigated with Saline -Foul Odor after Cleansing No -Bioengineered Tissue No -Bleeding Controlled with Pressure,Silver Nitrate -Offloading No -Treatment Response Procedure Tolerated Well #13- R UPPER THIGH POST OP -Time 14:21 -Correct Patient Yes -Correct Side, Site, Position Yes -Correct Procedure Yes -Procedure Performed Yes -Type of Procedure Debridement -Clinical Debridement Muscle -Post Debridement Size (cm) - Length 12.5 -Post Debridement Size (cm) - Width 5.0 -Post Debridement Size (cm) - Depth 2.0 -Total Square Cm 62.50 -Wound/Ulcer Outcome Not Healed -Ulcer Cleansing Rinsed/ Irrigated with Saline -Foul Odor after Cleansing No -Bioengineered Tissue No -Bleeding Controlled with Pressure -Offloading No -Treatment Response Procedure Tolerated Well #12 L Ischium -Time 15:16 -Correct Patient Yes -Correct Side, Site, Position Yes -Correct Procedure Yes -Procedure Performed Yes -Type of Procedure Debridement -Clinical Debridement Subcutaneous -Post Debridement Size (cm) - Length 3.5 -Post Debridement Size (cm) - Width 3 -Post Debridement Size (cm) - Depth 1.5 -Total Square Cm 10.5 -Wound/Ulcer Outcome Not Healed -Ulcer Cleansing Rinsed/ Irrigated with Saline -Foul Odor after Cleansing No -Treatment Response Procedure Tolerated Well #11 Right Buttock post op -Time 15:16 14:21 -Correct Patient Yes Yes -Correct Side, Site, Position Yes Yes -Correct Procedure Yes Yes -Procedure Performed Yes Yes -Type of Procedure Debridement Debridement -Clinical Debridement Muscle Muscle -Post Debridement Size (cm) - Length 5.7 7.0 -Post Debridement Size (cm) - Width 3.4 4.5 -Post Debridement Size (cm) - Depth 1.4 3.8 -Total Square Cm 19.38 31.50 -Wound/Ulcer Outcome Not Healed Not Healed -Ulcer Cleansing Rinsed/ Rinsed/ Irrigated with Irrigated with Saline Saline -Foul Odor after Cleansing No No -Bioengineered Tissue No -Bleeding Controlled with Pressure Pressure -Offloading No -Treatment Response Procedure Procedure Tolerated Well Tolerated Well #10- R LOWER BUTTOCK -Time 15:16 -Procedure Performed No -Wound/Ulcer Outcome Not Healed -Ulcer Cleansing Rinsed/ Irrigated with Saline -Foul Odor after Cleansing No -Bleeding Controlled with NA Pain Scale: 0-10 Numeric Is Patient Pain Free? Yes Yes Wound debrided: Ischial ulcer Laterality: Right Wound Grade/Stage: Stage IV Type of Debridement: Excisional debridement Anesthesia Used: 5% Lidocaine Gel Depth: Down to and including healthy tissue, in the subcutaneous layer, to muscle Percentage of wound debrided: 100 Instrument Used: 7mm curette Tissue Removed: Subcutaneous tissue and slough into the muscle with bone exposure Severity: Fat Layer Exposed Amount of bleeding with debridement: Mild Bleeding Controlled with: Pressure, Compression and gauze Patient tolerated procedure well - Additional Wound Wound debrided: Ischial ulcer Laterality: Left Wound Grade/Stage: Stage IV Type of Debridement: Excisional debridement Anesthesia Used: 5% Lidocaine Gel Depth: Down to and including healthy tissue, in the subcutaneous layer, to muscle Percentage of wound debrided: 100 Instrument Used: 7mm curette Tissue Removed: Subcutaneous tissue and slough into the muscle Severity: Fat Layer Exposed - bone exposed Amount of bleeding with debridement: Moderate Bleeding Controlled with: Pressure, Compression and gauze, Silver Nitrate Patient tolerated procedure: Patient tolerated procedure well - Additional Wound Wound debrided: inguinal/proximal thigh ulcer Laterality: Right Type of Debridement: Excisional debridement Anesthesia Used: 5% Lidocaine Gel Depth: Down to and including healthy tissue, in the subcutaneous layer, to muscle Percentage of wound debrided: 100 Instrument Used: 7mm curette Tissue Removed: Subcutaneous tissue and slough, into muscle, not aggressively debrided Severity: Fat Layer Exposed Amount of bleeding with debridement: Mild Bleeding Controlled with: Pressure Patient tolerated procedure: Patient tolerated procedure well - Additional Wound Wound debrided: Heel Laterality: Left Wound Grade/Stage: Stage IV Type of Debridement: Excisional debridement Anesthesia Used: 5% Lidocaine Gel Depth: Down to and including healthy tissue, in the subcutaneous layer Percentage of wound debrided: 100 Instrument Used: 5mm curette Tissue Removed: Subcutaneous tissue and slough Severity: Fat Layer Exposed Amount of bleeding with debridement: Mild Bleeding Controlled with: Pressure - Additional Wound Wound debrided: Sacral ulcer Type of Debridement: Selective debridement Anesthesia Used: 5% Lidocaine Gel Percentage of wound debrided: 60 Instrument Used: 3mm curette Tissue Removed: Difficult removing biofilm and slough Severity: Limited To Skin Breakdown Amount of bleeding with debridement: None Patient tolerated procedure: Patient tolerated procedure well - Additional Wound Wound debrided: Right heel and right second dorsal toe not debrided. Assessment/Plan Assessment: 1. Recurrent right ischial pressure sore, Stage IV. 2. Left ischial pressure sore, Stage IV. 3. Sacral ulcer, unstageable. 4. Left heel pressure ulcer, Stage IV. 5. Right heel pressure ulcer, unstageable. 6. Right dorsal toe pressure ulcer, unstageable. 7. 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 8. Osteomyelitis. 9. MRSA. 6. History of anal CA treated with chemotherapy and radiation therapy. Plan: Surgery 08/21/19 - Surgical preparation right inguinal area and right proximal thigh area with incision and drainage and excisional debridement submuscular abscess. Surgical wound cultures of right inguinal/proximal thigh positive for MRSA. Surgery 08/13/19 - 1. Excision recurrent right ischial pressure sore, Stage IV, with partial ostectomy for osteomyelitis. 2. Excision necrotic left ischial pressure sore, Stage IV, with partial ostectomy for osteomyelitis. Right ischium tissue cultures positive for MRSA, Corynebacterium species, Bacteroides fragilis, Anaerobic cocci, Prevotella malaninogenica. Right ischial bone cultures positive for E.coli, MRSA, Corynebacterium species, Bacteroides fragilis, Anaerobic cocci. Left ischium tissue surgical cultures positive for MRSA, Corynebacterium species, Bacteroides fragilis. Left ischium bone surgical cultures positive for MRSA, Corynebacterium species, Bacteroides fragilis and Anaerobic cocci. ID has been consulted and he is receiving Vancomycin and Ertapenem IV. He is in a long-term facility. He now also has ulcers on sacrum (unstageable), bilateral heels (left stage IV and right with skin intact is unstageable) and right second dorsal toe. Wound care: Bilateral ischial ulcers are Dakin's solution moistened gauze BID. Right groin/proximal thigh will order a wound VAC- he can Dakin's dressing changes until wound VAC approved. Left heel ulcer - Santyle daily. Right heel ulcer - batadine, right second dorsal toe betadine. Prealbumin from 08/16/19 was 8.4. Encourage nutritional supplementation with protein to help the healing process. Right and Left Ischial ulcers and right inguinal/proximal thigh ulcer are global [id number] ( modifier) Sacral ulcer is unstageable, Selective debridement [id number] Left heel ulcer - subcutaneous debridement- [id number]
== END 2019-09-10 23:59 ==
LOC: WC 13:30
PROVIDERS: PCP Internal Medicine; Visit Provider Nurse Practitioner Family
DX: L89.324 Pressure ulcer of left buttock, stage 4 (principal); L89.314 Pressure ulcer of right buttock, stage 4; L89.312 Pressure ulcer of right buttock, stage 2; L89.323 Pressure ulcer of left buttock, stage 3; L97.119 Non-pressure chronic ulcer of right thigh with unspecified severity; L89.150 Pressure ulcer of sacral region, unstageable; L89.159 Pressure ulcer of sacral region, unspecified stage; L89.610 Pressure ulcer of right heel, unstageable; L89.624 Pressure ulcer of left heel, stage 4; M86.651 Other chronic osteomyelitis, right thigh; Z85.048 Personal history of other malignant neoplasm of rectum, rectosigmoid junction, and anus; Z86.14 Personal history of Methicillin resistant Staphylococcus aureus infection; Z92.21 Personal history of antineoplastic chemotherapy; Z92.3 Personal history of irradiation; L59.8 Other specified disorders of the skin and subcutaneous tissue related to radiation; Y84.2 Radiological procedure and radiotherapy as the cause of abnormal reaction of the patient, or of later complication, without mention of misadventure at the time of the procedure
CPT/HCPCS: 11042; 11043; 11046; 97597; 99215; G0463

== ENCOUNTER 2019-09-26 10:54 | Inpatient (IN) | payer MEDICARE, MEDICAID, SELFPAY ==
[2019-09-11 00:33] VITALS: BMI 24.5
[2019-09-26] VITALS (9 sets, daily range): BP systolic 98–134; BP diastolic 37–71; PULSE 60–71; RESP 13–18; TEMP 36.7–37; O2SAT 94–99; BMI 25.7; BMI 24.4; BMI 70.8
--- NOTE | 2019-09-26 11:18 | RAD_ITS ---
STUDY: X-RAY - RIGHT FOOT CLINICAL: Male, 64 years old. NECROTIC TISSUE FIRST AND SECOND TOES TECHNIQUE: 3 view(s) of the foot. COMPARISON: Comparison is made with prior study of December 04, 2018. FINDINGS: There is a plantar calcaneal spur. Normal visualized subtalar, talonavicular, calcaneocuboid, tarsal and tarsometatarsal articulations. Question old avulsion fracture of the cuboid bone. Normal metatarsi. There is degenerative arthrosis of the metatarsophalangeal joint of the hallux . Normal tibial and fibular sesamoid bones. Normal interphalangeal joint of the great toe. Normal phalanges of the great toe. Normal second through fifth metatarsophalangeal joints. Normal interphalangeal joints and phalanges of the lesser toes. Soft tissue swelling overlying the great toe. Vascular calcification. RAD/Foot min 3 Views IMPRESSION: Soft tissue swelling overlying the great toe. Mild degree of degenerative changes at the first metatarsal phalangeal joint. Question old avulsion fracture of the cuboid bone. Electronically Signed: Aayush Ibarra, at 12:22 EDT , Service support ,
[2019-09-26] MEDS: Morphine 4 MG/ML Syringe IV ×4 (11:30→20:59)
[2019-09-26] MEDS: Ondansetron 4 MG/2 ML Vial IV (11:30)
[2019-09-26 11:43] LABS: Anion Gap 3 (5-15); BUN 32 mg/dL (7-18); BUN/Creat Ratio 65.7 RATIO (10-20); Calcium,Total 8.9 mg/dL (8.5-10.1); Chloride 104 mmol/L (98-107); Creatinine, Serum 0.49 mg/dL (0.70-1.30); EST Glomerular Filtration Rate 183 mL/min (>60); Est Glom Filt Rate - Afr Amer 221 mL/min (>60); Estimated Creatinine Clearance 140.52 ml/min; Glucose 93 mg/dL (74-106); Sodium Level 136 mmol/L (136-145)
[2019-09-26 11:44] LABS: Absolute Lymphocyte Count 1.58 X10^3/uL (0.83-4.51); Absolute Neutrophil Count 3.8 X10^3/uL (2.0-7.7); Basophil# 0.03 X10^3/uL; Basophil% 0.4 % (0-1); Eosinophils% 8.4 % (0-5); Hematocrit 27.5 % (40-54); Hemoglobin 8.2 g/dL (13.0-16.5); Lymphocyte # 1.58 X10^3/ul (4.0); Lymphocyte % 22.1 % (19-41); Mean Corp Hgb Conc 29.8 g/dL (32-36); Mean Corpuscular Hgb 23.4 pg (27.0-32.0); Mean Corpuscular Volume 78.3 fL (80-94); Mean Platelet Vol. 7.6 fl (6.2-12.0); Monocyte# 1.13 X10^3/uL; Monocyte% 15.8 % (0-10); NRBC Flagged by Analyzer 0 % (0-5); Platelet Count 357 K/mm3 (150-450); RBC Distribution Width CV 18.6 % (11.6-14.6); RBC Distribution Width SD 52.3 fl (35.1-43.9); Red Blood Count 3.51 M/mm3 (4.6-6.2); White Blood Count 7.2 K/mm3 (4.4-11.0)
[2019-09-26 11:53] LABS: International Normalized Ratio 1.1; Prothrombin Time (Protime)PT. 13.8 SECONDS (11.7-14.9)
[2019-09-26 11:54] LABS: Partial Thromboplast Time 29.7 Seconds (24.1-36.2)
--- NOTE | 2019-09-26 12:17 | ED.DCSUM_ITS ---
History of Present Illness Chief Complaint: Wound Narrative: Patient presenting for evaluation secondary to necrotic toes. Patient currently resides in a [place] [facility]. He has a complex medical history including anal cancer, nonhealing ulcers for which she has a wound VAC in his right groin, osteomyelitis of his pelvis with pressure ulcers, hepatitis C, COPD, hypertension, hyperlipidemia. Patient reports that over the course of the last couple of weeks he has been having an onset of necrosis of his toes on his right foot. It involves the first and second toe. Patient reports that he can feel his feet, so this is a good thing but he denies any constitutional symptoms such as fevers. He denies any chills. Patient was sent to the emergency department for evaluation of this. Past Medical History - Allergies and Home Meds Allergies/Adverse Reactions: Allergies chlorthalidone Allergy (Verified 09/26/19 10:56) Other famotidine Allergy (Verified 09/26/19 10:56) Unknown povidone-iodine [From Betadine] Allergy (Verified 09/26/19 10:56) Hives soap Adverse Reaction (Verified 09/26/19 10:56) Hives Yoyatqg-Qhv-Txa Reductase Inhibitor Adverse Reaction (Verified 09/26/19 10:56) MESSED MY LIVER UP adhesive tape Allergy (Uncoded 08/12/19 16:20) Itching/rash Primary Care Physician: Winnie Gonzales MD [Primary Care Provider] - Prior records reviewed: Yes Past Medical History: - - Complex as noted in HPI Surgical History: total hip arthroplasty - left, total knee arthroplasty, - - 12/30/16 Surgical preparation right gluteal/ischial area with excision radiation pressure sore abscess wound and partial ostectomy for osteomyelitis (52.5 cm2), 06/08/17 Excision radiation pressure sore abscess ulcer right ischial area, Stage IV, with partial ostectomy for osteomyelitis, 10/17/17 Excision radiation pressure sore abscess ulcer right ischial area, Stage IV, with partial ostectomy for osteomyelitis. Lives: [facility] Smoking Status: Former smoker Alcohol: None Drugs: None - Family History Maternal Family History: Reports: - Paternal Family History: Reports: - Review of Systems General: Denies: Chills, Fever, Sweats Eyes: Denies: Visual changes - bilaterally, Diplopia ENT: Denies: Rhinorrhea, Sore throat Cardiovascular: Denies: Chest pain, Palpitations Respiratory: Denies: Dyspnea, Cough, Dyspnea on exertion Gastrointestinal: Denies: Abdominal pain, Nausea, Vomiting, Diarrhea, Melena, Hematochezia Musculoskeletal: Reports: Myalgias, Back pain, Extremity Pain Skin: Reports: Wounds Neurological: Denies: Headache Psych: Denies: Depression Endocrine: Denies: Polyuria Hematologic: Denies: Easy bruising, Easy bleeding Physical Exam Vital Signs/Narrative: Vital Signs Temp Pulse Resp BP Pulse Ox 09/26/19 10:57 98.2 F 65 17 132/48 H 95 Inital Vital Signs reviewed: Yes General: Well nourished, Well developed, No Acute Distress Head: Normocephalic, Atraumatic Eyes: EOMI ENT: Moist mucous membranes Neck: Supple, Nontender Cardiovascular: Regular rate, Regular rhythm, No murmurs, - - Nonpalpable pulses in the lower extremities, dopplerable pulses in the right foot, non-dopplerable pulses in the left foot with a warm extremity and normal capillary refill Respiratory: No distress, CTA bilaterally, Chest nontender Abdomen: Soft, Nontender, - - Ostomy noted in the patient's left abdomen Extremities: - - Wound VAC noted in the patient's right groin. Patient's toes show necrosis of the great toe and the second toe on the right foot with some minimal bleeding surrounding the necrosis Skin: Normal color Neurological: Alert, Oriented x3 Diagnostic/Tx/Re-eval Clinical Impression(s) from Imaging Studies Foot X-Ray 09/26/19 11:18 IMPRESSION: Soft tissue swelling overlying the great toe. Mild degree of degenerative changes at the first metatarsal phalangeal joint. Question old avulsion fracture of the cuboid bone. Electronically Signed: Aayush Ibarra, at 12:22 EDT , Service support , Laboratory Data 09/26/19 09/26/19 09/26/19 11:25 11:25 11:25 WBC 7.2 RBC 3.51 L Hgb 8.2 L Hct 27.5 L MCV 78.3 L MCH 23.4 L MCHC 29.8 L RDW Std Deviation 52.3 H RDW Coeff of Rosendo 18.6 H Plt Count 357 MPV 7.6 Immature Gran % (Auto) 0.300 Neut % (Auto) 53.0 Lymph % (Auto) 22.1 Gonzales % (Auto) 15.8 H Eos % (Auto) 8.4 H Baso % (Auto) 0.4 Absolute Neuts (auto) 3.8 Absolute Lymphs (auto) 1.58 Nucleated RBC % 0 PT 13.8 INR 1.1 APTT 29.7 Sodium 136 Potassium 4.0 Chloride 104 Carbon Dioxide 29.0 Anion Gap 3 L BUN 32 H Creatinine 0.49 L Estim Creat Clear Calc 140.52 Est GFR (MDRD) Af Amer 221 Est GFR (MDRD) Non-Af 183 BUN/Creatinine Ratio 65.7 H Glucose 93 Calcium 8.9 - Medical Decision Making Patient presenting secondary to toe necrosis. Nursing was able to Doppler pulses in the patient's feet bilaterally. Laboratory studies were obtained. Patient was not found to have a leukocytosis. Patient was found to have chronic anemia. X-ray shows some soft tissue changes, no evidence of osteomyelitis. I discussed patient's case with podiatry, who did recommend admission for vascular studies and potential operative management. Patient will be admitted under the hospitalist. ED Disposition - Plan for ED Patient: Disposition: [facility] Diagnosis: Toe necrosis
--- NOTE | 2019-09-26 13:23 | PCA ---
ORDERED AN ENVISION MATTRESS FOR HIM FROM [facility] CONF# [id number] TO BE DELIVERED TODAY
--- NOTE | 2019-09-26 13:56 | ART_ITS ---
Reason For Study: PVD Procedure A bilateral lower extremity continuous wave Doppler with analog waveform analysis,segmental pressures,and ankle brachial indexes without exercise. Left Segmental Pressures Left brachial= 110mmHg. Left thigh = 77mmHg. Left calf = 105mmHg. Left posterior tibial artery = 55mmHg. Left dorsalis pedis artery = 64mmHg. The left dorsalis pedis waveforms are monophasic. The left posterior tibial artery waveforms are monophasic. Right Segmental Pressures Right thigh = 52mmHg. Right calf = 63mmHg. Right posterior tibial artery = 8mmHg. Right dorsalis pedis artery = 74mmHg. The right dorsalis pedis waveforms are monophasic. The right posterior tibial artery waveforms are monophasic. Indices The right ankle brachial index by the dorsalis pedis is 0.67. The right ankle brachial index by the posterior tibial artery is 0.07. The left ankle brachial index by the dorsalis pedis is 0.58. The left ankle brachial index by the posterior tibial artery is 0.50. Interpretation Summary Moderately severe bilateral lower extremity arterial occlusive disease based upon ankle-brachial indices. Doppler waveforms are monophasic of bilateral posterior tibial and dorsalis pedis vessels suggesting a potential more severe level of disease. Volume pulse recording toe pressures on the right not able to be obtained and flatline on the left suspicious for multisegmental disease or severe distal small vessel disease. Ordering Physician: Zak Mcdonald Referring Physician: Winnie Gonzales Performed By: Caroline Hull RVT and Student
--- NOTE | 2019-09-26 14:06 | ED.RN ---
ciro, nurse at [facility], notified that pt is admitted to [facility]
--- NOTE | 2019-09-26 14:49 | HP.PCM_ITS ---
Problem List (1) Sacral pressure ulcer Status: Chronic Qualifiers: Pressure injury stage: unstageable Qualified Code(s): L89.150 - Pressure ulcer of sacral region, unstageable (2) Pressure ulcer, heel, right, unstageable Status: Chronic (3) Decubitus ulcer of left heel, stage 4 Status: Chronic (4) Pressure ulcer of toe of right foot Status: Chronic Qualifiers: Pressure injury stage: unstageable Qualified Code(s): L89.890 - Pressure ulcer of other site, unstageable (5) Toe necrosis Status: Acute (6) Non-healing open wound of right groin Status: Chronic (7) Abscess of right groin Status: Acute (8) Skin necrosis Status: Chronic (9) Pressure sore of left ischium, stage 4 Status: Chronic (10) Candidal skin infection Status: Chronic (11) Chronic osteomyelitis of right pelvic region Status: Chronic (12) Infection and inflammatory reaction due to internal left knee prosthesis, initial encounter Status: Chronic (13) History of total left knee replacement Status: Chronic (14) Skin ulcer of left thigh with fat layer exposed Status: Chronic (15) MRSA bacteremia Status: Resolved (16) Pressure ulcer of right buttock, stage 3 Status: Chronic (17) Skin ulcer of elbow with fat layer exposed Status: Chronic (18) Decubitus ulcer of left heel, stage 2 Status: Chronic (19) Debility Status: Chronic (20) Personal history of Methicillin resistant Staphylococcus aureus infection Status: Chronic (21) Acute osteomyelitis of right pelvic region Status: Chronic (22) History of anal cancer Status: Chronic (23) Late effect of radiation Status: Chronic Comment: right ischial area (24) Right ischial pressure sore, stage 4 Status: Chronic (25) Soft tissue radionecrosis Status: Chronic (26) Anal cancer Status: Chronic (27) Hepatitis C carrier Status: Chronic (28) COPD (chronic obstructive pulmonary disease) Status: Chronic Qualifiers: (29) Anxiety and depression Status: Chronic (30) HTN (hypertension) Status: Chronic Qualifiers: (31) HLD (hyperlipidemia) Status: Chronic Qualifiers: (32) GERD (gastroesophageal reflux disease) Status: Chronic Qualifiers: (33) PAD (peripheral artery disease) Status: Chronic (34) Hyponatremia Status: Resolved Comment: secondary to dehydration due to diuretics. (35) Abscess, gluteal, right Status: Inactive Comment: Pseudomonas, MSSA, B.frag History of Present Illness Date of Admission: 09/26/19 Chief Complaint: Infected right first and second toe. The patient is a 64 year old M who presents from SNF due to right great and second toe infection. Patient states his right first and second toes have looked bad for approximately 2 weeks. He denies fever, chills. He has chronic neuropathy and denies pain. Patient has wound VAC in place to right groin secondary to prior abscess status post I&D. Patient has a history of right pelvis osteomyelitis, chronic pressure injury right and left ischium, hypertension, COPD, hyperlipidemia, chronic anemia, depression, anxiety, history of anal cancer status post radiation, history of hepatitis C. Past Medical History Past Medical History (Chronic Problems): Chronic Problems Sacral pressure ulcer (Chronic) Pressure ulcer, heel, right, unstageable (Chronic) Decubitus ulcer of left heel, stage 4 (Chronic) Pressure ulcer of toe of right foot (Chronic) Non-healing open wound of right groin (Chronic) Skin necrosis (Chronic) Pressure sore of left ischium, stage 4 (Chronic) Candidal skin infection (Chronic) 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) Infection and inflammatory reaction due to internal left knee prosthesis, initial encounter (Chronic) History of total left knee replacement (Chronic) Skin ulcer of left thigh with fat layer exposed (Chronic) Pressure ulcer of right buttock, stage 3 (Chronic) Skin ulcer of elbow with fat layer exposed (Chronic) Decubitus ulcer of left heel, stage 2 (Chronic) Debility (Chronic) Personal history of Methicillin resistant Staphylococcus aureus infection (Chronic) Acute osteomyelitis of right pelvic region (Chronic) History of anal cancer (Chronic) 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, 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) Anal cancer (Chronic) Hepatitis C carrier (Chronic) COPD (chronic obstructive pulmonary disease) (Chronic) Anxiety and depression (Chronic) HTN (hypertension) (Chronic) HLD (hyperlipidemia) (Chronic) GERD (gastroesophageal reflux disease) (Chronic) PAD (peripheral artery disease) (Chronic) Allergies chlorthalidone Allergy (Verified 09/26/19 10:56) Other famotidine Allergy (Verified 09/26/19 10:56) Unknown povidone-iodine [From Betadine] Allergy (Verified 09/26/19 10:56) Hives soap Adverse Reaction (Verified 09/26/19 10:56) Hives Wlwshyr-Zkf-Jmr Reductase Inhibitor Adverse Reaction (Verified 09/26/19 10:56) MESSED MY LIVER UP adhesive tape Allergy (Uncoded 08/12/19 16:20) Itching/rash Home Medications: Ambulatory Orders Medication Instructions Recorded Escitalopram Oxalate [Lexapro] 10 mg PO DAILY 03/22/16 Fluticasone 0.05% [Flonase Nasal 2 spray NASAL DAILY 03/22/16 [place]] Multivitamin [Multiple Vitamins] 1 each PO DAILY 03/22/16 buPROPion XL [Wellbutrin Xl] 300 mg PO DAILY 03/22/16 busPIRone [Buspar] 5 mg PO TID 03/22/16 Tizanidine HCl [Zanaflex] 4 mg PO 4X/DAY PRN PRN 12/27/16 Metoprolol Tartrate [Lopressor 50 mg PO BID 01/19/18 (beta joo)] Amlodipine [Norvasc] 5 mg PO DAILY 08/22/18 Ascorbic Acid [Vitamin C] 500 mg PO DAILY@0800 08/22/18 Ferrous Gluconate 324 mg PO BID 08/22/18 Ezetimibe [Zetia] 10 mg PO DAILY 10/18/18 Nystatin [Mycostatin] 1 applic TOPICAL BID 02/08/19 Doxazosin Mesylate [Cardura] 2 mg PO QHS 08/12/19 Gabapentin [Neurontin] 600 mg PO TIDCM 08/12/19 Ibuprofen 800 mg PO TID 08/12/19 Cholecalciferol (Vitamin D3) 25 gm MC DAILY 09/26/19 [Cholecalciferol] DiphenhydrAMINE [Benadryl] 25 mg PO Q8H PRN PRN 09/26/19 Omeprazole 20 mg PO DAILY 09/26/19 Oxycodone CR [Oxycontin] 15 mg PO DAILY 09/26/19 Oxycodone HCl 10 mg PO Q4H PRN PRN 09/26/19 Umeclidinium [place] [Incruse 1 puff IH DAILY 09/26/19 Ellipta] Vancomycin IV 2,000 mg IV Q24H 09/26/19 Surgical History: total hip arthroplasty - left, total knee arthroplasty, - - 12/30/16 Surgical preparation right gluteal/ischial area with excision radiation pressure sore abscess wound and partial ostectomy for osteomyelitis (52.5 cm2), 06/08/17 Excision radiation pressure sore abscess ulcer right ischial area, Stage IV, with partial ostectomy for osteomyelitis, 10/17/17 Excision radiation pressure sore abscess ulcer right ischial area, Stage IV, with partial ostectomy for osteomyelitis. Psychiatric History: No pertinent psych hx Lives: Shelter Smoking Status: Former smoker Alcohol: None Drugs: None - *Family History Maternal History Items: - - Denies known maternal medical history including cardiac history. Paternal History Items: - - Denies known paternal medical history including cardiac history. Review of Systems Constitutional: Denies: Chills, Fever, Weight Change HEENT: Denies: Head Aches, Sinus Congestion, Sinus Drainage Cardiovascular: Denies: Chest Pain, Palpitations Respiratory: Denies: Cough, Shortness of breath at rest, Sputum production Gastrointestinal: Reports: - - Colostomy. Denies: Abdominal Pain, Nausea, Vomiting Genitourinary: Denies: Dysuria Musculoskeletal: Denies: Joint Pain, Joint Tenderness Skin: Reports: - - Right groin wound from prior abscess with wound VAC in place. Bilateral ischium stage IV pressure ulcers, stage II sacral pressure ulcer. Right first and second toe necrosis. Neurological: Denies: Numbness, Tingling, Focal weakness Psychiatric: Reports: Anxiety, Depression Hematologic/ Lymphatic: Denies: Easy Bruising, Easy Bleeding VTE Information - Inpt Only VTE Present on Admission: No VTE Mechan Device Prophylaxis: None VTE Pharm Prophylaxis ordered?: Yes Patient Problems: Active and Suspected Problems Toe necrosis (Acute) - Physical Exam Vitals/I&O's: Vital Signs Temp Pulse Resp BP Pulse Ox 98.1 F 60 18 98/37 L 98 09/26/19 14:03 09/26/19 14:03 09/26/19 14:03 09/26/19 14:03 09/26/19 14:03 Oxygen Flow Rate (L/min) 2 Oxygen Delivery Method Nasal Cannula Weight: 156 lb Body Mass Index (BMI) 24.4 General: Alert, Oriented x3, Cooperative HEENT: Atraumatic, PERRLA, EOMI, Normocephalic Neck: Supple, No JVD, Negative Carotid Bruits Lungs: Clear to auscultation, Normal air movement Cardiovascular: Regular rate, No murmurs Abdomen: Bowel Sounds Present, Soft, Non Tender, Non-Distended, - - Colostomy intact Extremities: No clubbing, No cyanosis, No edema Skin: - - Right groin wound from prior abscess with wound VAC in place. Bilateral ischium stage IV pressure ulcers, stage II sacral pressure ulcer. Right first and second toe necrosis. Foul smell noted from ischial ulcerations. Musculoskeletal: No Tenderness to Palpation of Joints or Extremities Neurological: Cranial nerves II-XII grossly intact, Neuro grossly intact Psych/Mental Status: Flat Affect Laboratory Results 09/26/19 11:25: WBC 7.2, RBC 3.51 L, Hgb 8.2 L, Hct 27.5 L, MCV 78.3 L, MCH 23.4 L, MCHC 29.8 L, RDW Std Deviation 52.3 H, RDW Coeff of Rosendo 18.6 H, Plt Count 357, MPV 7.6, Immature Gran % (Auto) 0.300, Neut % (Auto) 53.0, Lymph % (Auto) 22.1, [place] % (Auto) 15.8 H, Eos % (Auto) 8.4 H, Baso % (Auto) 0.4, Absolute Neuts (auto) 3.8, Absolute Lymphs (auto) 1.58, Nucleated RBC % 0 09/26/19 11:25: PT 13.8, INR 1.1, APTT 29.7 09/26/19 11:25: Sodium 136, Potassium 4.0, Chloride 104, Carbon Dioxide 29.0, Anion Gap 3 L, BUN 32 H, Creatinine 0.49 L, Estim Creat Clear Calc 140.52, Est GFR (MDRD) Af Amer 221, Est GFR (MDRD) Non-Af 183, BUN/Creatinine Ratio 65.7 H, Glucose 93, Calcium 8.9 09/26/19 14:14: COVID-19 ([facility]ANTA) Pending Current Medications Amlodipine Besylate (Norvasc) 5 mg PO DAILY [facility] Ascorbic Acid (Vitamin C) 500 mg PO DAILY@0800 [facility] Bupropion HCl (Wellbutrin Xl) 300 mg PO DAILY [facility] Buspirone HCl (Buspar) 5 mg PO TID [place] Doxazosin Mesylate (Cardura) 2 mg PO QHS [facility] Ezetimibe (Zetia) 10 mg PO DAILY [facility] Enoxaparin Sodium (Lovenox) 40 mg SC DAILY [facility] Escitalopram Oxalate (Lexapro) 10 mg PO DAILY [facility] Ferrous Gluconate (Ferrous Gluconate) 324 mg PO 1200,1700 [facility] Fluticasone Propionate (Flonase Nasal [place]) 2 spray NASAL DAILY [facility] Gabapentin (Neurontin) 600 mg PO TIDCM [facility] Sodium Chloride () 250 mls @ 15 mls/hr IV .[id number] PRN PRN Reason: Saline Flush Sodium Chloride () 250 mls @ 15 mls/hr IV .[id number] PRN PRN Reason: Additional IVPB Infusion Ampicillin Sodium/Sulbactam (Sodium 3 gm/ Sodium Chloride) 112 mls @ 150 mls/hr IV Q6 [facility] Metoprolol Tartrate (Lopressor (Beta Joo)) 50 mg PO BID [facility] Morphine Sulfate () 4 mg IV Q3H PRN PRN PRN Reason: Pain Score 6-10/10 Nutritional Formula (Chuy - [place] Flavor) 1 packet PO TIDCM [facility] Nutritional Formula (Lactose Free) (Ensure Enlive) 120 ml PO 4X/DAY [facility] Nystatin (Mycostatin) 1 applic TOPICAL BID [facility]; Protocol Ondansetron HCl (Zofran) 4 mg IV Q8H PRN PRN PRN Reason: NAUSEA/VOMITING Oxycodone HCl (Oxycontin) 15 mg PO DAILY [facility] Oxycodone HCl (Oxyir) 10 mg PO Q4H PRN PRN PRN Reason: Pain Score 1-10/10 Pantoprazole Sodium (Protonix) 20 mg PO DAILY [facility] Sodium Chloride () 10 - 40 ml IV UD PRN PRN Reason: SALINE FLUSH Tizanidine HCl (Zanaflex) 4 mg PO Q8H PRN PRN PRN Reason: SPASMS Vancomycin HCl () 2,000 mg IV Q24H [facility] Assessment/Plan All Active Problems Toe necrosis (Acute) Abscess of right groin (Acute) Hyponatremia (Resolved) MRSA bacteremia (Resolved) 1. Necrotic right great distal toe and right second toe-podiatry consulted. Plan for surgical intervention tomorrow. Continue Unasyn and vancomycin. Vascular studies ordered. Preoperative COVID test ordered. 2. Chronic right and left ischium stage IV pressure injuries, stage II sacral pressure injury-present on admission. Dr. Mesa consulted for further evaluation given appearance and foul smell. Prior debridement 08/13/2019. History of pelvic osteomyelitis and MRSA. Daily dressing changes with Dakins pending plastic surgery consult. 3. Recent right groin abscess status post I&D with wound VAC placement- Dr. Mesa consult as noted above. 4. History of anal cancer status post chemotherapy and radiation-colostomy in place. 5. Chronic COPD-no exacerbation. As needed albuterol aerosol. 6. Hypertension-stable, continue amlodipine, metoprolol. 7. Hyperlipidemia-continue statin. 8. Chronic anemia-stable, trend CBC. 9. History of hepatitis C 10. Anxiety/depression-continue Wellbutrin, BuSpar, Lexapro. 11. GERD-continue home omeprazole regimen. 12. Debility-currently at SNF. PT/OT. DVT prophylaxis-Lovenox subcu. This patient was seen by AG Bowling under the supervision of Dr. Mcdonald.
--- NOTE | 2019-09-26 15:55 | NURSING ---
called [facility]. varified last administration date & time of vancomycin as paperwork indicates last given 09/25/2019 nurse states it was in fact administered this a.m. and was started at 0700 and sent with the patient infusing. Nurse did also verify patient is no longer on any other antibiotic.
--- NOTE | 2019-09-26 15:59 | PHA.PHARE_ITS ---
Consult Pharmacy has been consulted to manage selected antiobiotic: Vancomycin Type of Consult: Follow-up Prior Doses of Antibiotics Received/Current Regimen: Medications Vancomycin HCl () 2,000 mg IV Q24H COUNT INCLUDES THE [facility] Labs: Sodium 136 mmol/L (136-145) 09/26/19 11:25 Potassium 4.0 mmol/L (3.5-5.1) 09/26/19 11:25 Chloride 104 mmol/L (98-107) 09/26/19 11:25 Carbon Dioxide 29.0 mmol/L (21.0-32.0) 09/26/19 11:25 Anion Gap 3 (5-15) L 09/26/19 11:25 BUN 32 mg/dL (7-18) H 09/26/19 11:25 Creatinine 0.49 mg/dL (0.70-1.30) L 09/26/19 11:25 Est GFR (MDRD) Af Amer 221 mL/min (>60) 09/26/19 11:25 Est GFR (MDRD) Non-Af 183 mL/min (>60) 09/26/19 11:25 BUN/Creatinine Ratio 65.7 RATIO (10-20) H 09/26/19 11:25 Glucose 93 mg/dL (74-106) 09/26/19 11:25 Goal Trough: 15-20 mcg/mL Pharmacy Plan for Drug Dosing: Patient was on vancomycin 2000mg IV q24h at [facility] thru 10/01. Continue same dose, recommend to check trough in the morning. Pharmacy Service will continue to monitor and adjust dosing as required. Follow-Up Labs: Trough Vancomycin - 09/26 @ 0630
[2019-09-26] MEDS: 0.9% Saline Lock 10 ML Syringe IV ×2 (16:40→17:54)
[2019-09-26] MEDS: Gabapentin 600 MG Tablet PO (16:49)
[2019-09-26] MEDS: Enoxaparin 40 MG/0.4 ML Syringe SC (16:49)
[2019-09-26] MEDS: Ferrous Gluconate 324 MG Tablet PO (16:49)
--- NOTE | 2019-09-26 17:24 | PCM.CONS.GEN ---
Problem List (1) Gangrene of toe of right foot Status: Acute (2) Osteomyelitis of toe of right foot Status: Acute (3) Peripheral vascular disease Status: Chronic (4) Unstageable pressure ulcer of right heel Status: Chronic (5) Unstageable pressure ulcer of left heel Status: Chronic (6) Malnutrition Status: Suspected Reason for Consult Date of Consultation: 09/26/19 Reason for Consultation: Right first and second toe gangrene and heel eschars bilateral History of Present Illness: The patient is a 64 year old M with multiple comorbidities including peripheral vascular disease, anxiety, history of anal rectal cancer treated with radiation, ischium deep wounds with delayed healing, history of MRSA, history of hepatitis C was seen bedside this evening for gangrenous changes to the first and second toes on the right foot. He was also seen for black scabs on both heels. The patient relates the onset of the foot discoloration was several months ago however he reported the more definitive black discoloration the past 2 weeks. He denies trauma. He relates he has had cramping particularly with activity that is consistent with claudication to the right lower extremity after walking short distances. He relates he does not walk very far due to weakness of the lower extremities and he also uses a walker. He also reports he does not walk a lot due to pain from his recent abscess debridement on his right groin. He denies doing formal wound care. He has previously seen a vascular specialist many years ago but [place] out of the [place]. He denies recent follow-up or recent noninvasive vascular studies performed at an outside facility. He is residing in a custodial facility at this time. Past Medical History Past Medical History (Chronic Problems): Chronic Problems Sacral pressure ulcer (Chronic) Pressure ulcer, heel, right, unstageable (Chronic) Decubitus ulcer of left heel, stage 4 (Chronic) Pressure ulcer of toe of right foot (Chronic) Peripheral vascular disease (Chronic) Unstageable pressure ulcer of right heel (Chronic) Unstageable pressure ulcer of left heel (Chronic) Non-healing open wound of right groin (Chronic) Skin necrosis (Chronic) Pressure sore of left ischium, stage 4 (Chronic) Candidal skin infection (Chronic) 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) Infection and inflammatory reaction due to internal left knee prosthesis, initial encounter (Chronic) History of total left knee replacement (Chronic) Skin ulcer of left thigh with fat layer exposed (Chronic) Pressure ulcer of right buttock, stage 3 (Chronic) Skin ulcer of elbow with fat layer exposed (Chronic) Decubitus ulcer of left heel, stage 2 (Chronic) Debility (Chronic) Personal history of Methicillin resistant Staphylococcus aureus infection (Chronic) Acute osteomyelitis of right pelvic region (Chronic) History of anal cancer (Chronic) 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, 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) Anal cancer (Chronic) Hepatitis C carrier (Chronic) COPD (chronic obstructive pulmonary disease) (Chronic) Anxiety and depression (Chronic) HTN (hypertension) (Chronic) HLD (hyperlipidemia) (Chronic) GERD (gastroesophageal reflux disease) (Chronic) PAD (peripheral artery disease) (Chronic) Allergies chlorthalidone Allergy (Verified 09/26/19 10:56) Other famotidine Allergy (Verified 09/26/19 10:56) Unknown povidone-iodine [From Betadine] Allergy (Verified 09/26/19 10:56) Hives soap Adverse Reaction (Verified 09/26/19 10:56) Hives [id number]-Ozo Reductase Inhibitor Adverse Reaction (Verified 09/26/19 10:56) MESSED MY LIVER UP adhesive tape Allergy (Uncoded 08/12/19 16:20) Itching/rash Home Medications: Ambulatory Orders Medication Instructions Recorded Escitalopram Oxalate [Lexapro] 10 mg PO DAILY 03/22/16 Fluticasone 0.05% [Flonase Nasal 2 spray NASAL DAILY 03/22/16 [place]] Multivitamin [Multiple Vitamins] 1 each PO DAILY 03/22/16 buPROPion XL [Wellbutrin Xl] 300 mg PO DAILY 03/22/16 busPIRone [Buspar] 5 mg PO TID 03/22/16 Tizanidine HCl [Zanaflex] 4 mg PO 4X/DAY PRN PRN 12/27/16 Metoprolol Tartrate [Lopressor 50 mg PO BID 01/19/18 (beta joo)] Amlodipine [Norvasc] 5 mg PO DAILY 08/22/18 Ascorbic Acid [Vitamin C] 500 mg PO DAILY@0800 08/22/18 Ferrous Gluconate 324 mg PO BID 08/22/18 Ezetimibe [Zetia] 10 mg PO DAILY 10/18/18 Nystatin [Mycostatin] 1 applic TOPICAL BID 02/08/19 Doxazosin Mesylate [Cardura] 2 mg PO QHS 08/12/19 Gabapentin [Neurontin] 600 mg PO TIDCM 08/12/19 Ibuprofen 800 mg PO TID 08/12/19 Cholecalciferol (Vitamin D3) 25 gm MC DAILY 09/26/19 [Cholecalciferol] DiphenhydrAMINE [Benadryl] 25 mg PO Q8H PRN PRN 09/26/19 Omeprazole 20 mg PO DAILY 09/26/19 Oxycodone CR [Oxycontin] 15 mg PO DAILY 09/26/19 Oxycodone HCl 10 mg PO Q4H PRN PRN 09/26/19 Umeclidinium [place] [Incruse 1 puff IH DAILY 09/26/19 [place]] Vancomycin IV 2,000 mg IV Q24H 09/26/19 Surgical History: total hip arthroplasty - left, total knee arthroplasty, - - 12/30/16 Surgical preparation right gluteal/ischial area with excision radiation pressure sore abscess wound and partial ostectomy for osteomyelitis (52.5 cm2), 06/08/17 Excision radiation pressure sore abscess ulcer right ischial area, Stage IV, with partial ostectomy for osteomyelitis, 10/17/17 Excision radiation pressure sore abscess ulcer right ischial area, Stage IV, with partial ostectomy for osteomyelitis. Psychiatric History: No pertinent psych hx Lives: [facility] Smoking Status: Former smoker Alcohol: None Drugs: None - *Family History Maternal History Items: - - Denies known maternal medical history including cardiac history. Paternal History Items: - - Denies known paternal medical history including cardiac history. Review of Systems Constitutional: Denies: Chills, Fever HEENT: Denies: Sinus Drainage Cardiovascular: Reports: Claudication. Denies: Chest Pain Respiratory: Denies: Cough, Shortness of Breath Gastrointestinal: Denies: Nausea, Vomiting Musculoskeletal: Reports: Leg Pain Skin: Reports: Skin Changes, Wounds Neurological: Reports: Balance problems, Incoordination, Numbness, Tingling Hematologic/ Lymphatic: Denies: Easy Bruising, Easy Bleeding Patient Problems: Active and Suspected Problems Toe necrosis (Acute) Gangrene of toe of right foot (Acute) Osteomyelitis of toe of right foot (Acute) Malnutrition (Suspected) - Physical Exam Vitals/I&O's: Vital Signs Temp Pulse Resp BP Pulse Ox 98.4 F 64 18 118/49 L 94 09/26/19 16:38 09/26/19 16:38 09/26/19 16:38 09/26/19 16:38 09/26/19 16:38 Oxygen Flow Rate (L/min) 2 Oxygen Delivery Method Nasal Cannula Weight: 70.76 kg Body Mass Index (BMI) 24.4 General: Alert, Oriented x3, Cooperative HEENT: Atraumatic Extremities: No edema, No Calf Tenderness - Negative Pradeep and Goldstein sign bilateral. Compartments are soft to bilateral lower extremities., Diminished Peripheral Pulses, - - Capillary fill time is less than 3 seconds to digits 3, 4, 5 right and all digits left. There is no capillary time noted to the eschar well adhered distal aspect of the first and second digit on the right foot. He has nonpalpable pedal pulses DP and PT bilateral. The foot is warm to touch however it is not with calor right more than left Skin: Ulcer/ Wound - Skin discontinuity eschar to dorsal second toe extends into the nail complex upon debridement of loose dorsal eschar there is exposed reyes discolored middle phalanx head bone. This wound measures approximately 1.1 x 1.1 x 0.3 cm post debridement and pre-debridement was 0.8 x 0.8 x 0.1 cm. The dry stable well adhered heel eschar on the right lower extremity measures 4.0 x 3.5 x 0.1 and is well adhered firm and dry. The heel eschar on the left foot has the same characteristics and measures 3.1 x 3.1 x 0.1 cm. There is no bogginess or fluctuance adjacent to the heel eschars. There is also deep ecchymotic eschar-like changes to the distal right hallux which is not 100% delineated. There is no erythema, streaking, purulence on expression or odor noted to either foot. His skin is hairless and atrophic Musculoskeletal: No Tenderness to Palpation of Joints or Extremities, Muscle Wasting, - - Lack of active range of motion of the digits and ankle bilateral lower extremities. Minimal pain on palpation of eschar bilateral foot Neurological: - - Lack of epicritic sensation to digits and foot and even to the lower ankle level bilateral lower extremity Psych/Mental Status: Normal Affect, Appropriate Laboratory Results 09/26/19 11:25: WBC 7.2, RBC 3.51 L, Hgb 8.2 L, Hct 27.5 L, MCV 78.3 L, MCH 23.4 L, MCHC 29.8 L, RDW Std Deviation 52.3 H, RDW Coeff of Rosendo 18.6 H, Plt Count 357, MPV 7.6, Immature Gran % (Auto) 0.300, Neut % (Auto) 53.0, Lymph % (Auto) 22.1, [place] % (Auto) 15.8 H, Eos % (Auto) 8.4 H, Baso % (Auto) 0.4, Absolute Neuts (auto) 3.8, Absolute Lymphs (auto) 1.58, Nucleated RBC % 0 09/26/19 11:25: PT 13.8, INR 1.1, APTT 29.7 09/26/19 11:25: Sodium 136, Potassium 4.0, Chloride 104, Carbon Dioxide 29.0, Anion Gap 3 L, BUN 32 H, Creatinine 0.49 L, Estim Creat Clear Calc 140.52, Est GFR (MDRD) Af Amer 221, Est GFR (MDRD) Non-Af 183, BUN/Creatinine Ratio 65.7 H, Glucose 93, Calcium 8.9 09/26/19 14:14: COVID-19 ([facility]) Negative Current Medications Amlodipine Besylate (Norvasc) 5 mg PO DAILY [facility] Ascorbic Acid (Vitamin C) 500 mg PO DAILY@0800 [facility] Bupropion HCl (Wellbutrin Xl) 300 mg PO DAILY [facility] Buspirone HCl (Buspar) 5 mg PO TID [facility] Doxazosin Mesylate (Cardura) 2 mg PO QHS [facility] Ezetimibe (Zetia) 10 mg PO DAILY [facility] Enoxaparin Sodium (Lovenox) 40 mg SC DAILY [facility] Last Admin: 09/26/19 16:49 Dose: 40 mg Documented by: Escitalopram Oxalate (Lexapro) 10 mg PO DAILY [facility] Ferrous Gluconate (Ferrous Gluconate) 324 mg PO 1200,1700 [facility] Last Admin: 09/26/19 16:49 Dose: 324 mg Documented by: Fluticasone Propionate (Flonase Nasal [place]) 2 spray NASAL DAILY [facility] Gabapentin (Neurontin) 600 mg PO TIDCM [facility] Last Admin: 09/26/19 16:49 Dose: 600 mg Documented by: Sodium Chloride () 250 mls @ 15 mls/hr IV .[id number] PRN PRN Reason: Saline Flush Sodium Chloride () 250 mls @ 15 mls/hr IV .[id number] PRN PRN Reason: Additional IVPB Infusion Ampicillin Sodium/Sulbactam (Sodium 3 gm/ Sodium Chloride) 112 mls @ 150 mls/hr IV Q6 [facility] Vancomycin HCl 2,000 mg/ (Sodium Chloride) 540 mls @ 250 mls/hr IV Q24H [facility] Stop: 10/02/19 07:01 Metoprolol Tartrate (Lopressor (Beta Joo)) 50 mg PO BID [facility] Morphine Sulfate () 4 mg IV Q3H PRN PRN PRN Reason: Pain Score 6-10/10 Last Admin: 09/26/19 16:40 Dose: 4 mg Documented by: Nutritional Formula ([place] - [place] Flavor) 1 packet PO TIDCM [facility] Last Admin: 09/26/19 16:49 Dose: Not Given Documented by: Nutritional Formula (Lactose Free) (Ensure Enlive) 120 ml PO 4X/DAY [facility] Last Admin: 09/26/19 16:49 Dose: Not Given Documented by: Nystatin (Mycostatin) 1 applic TOPICAL BID [facility]; Protocol Ondansetron HCl (Zofran) 4 mg IV Q8H PRN PRN PRN Reason: NAUSEA/VOMITING Oxycodone HCl (Oxycontin) 15 mg PO DAILY [facility] Oxycodone HCl (Oxyir) 10 mg PO Q4H PRN PRN PRN Reason: Pain Score 1-10/10 Pantoprazole Sodium (Protonix) 20 mg PO DAILY [facility] Sodium Chloride () 10 - 40 ml IV UD PRN PRN Reason: SALINE FLUSH Last Admin: 09/26/19 16:40 Dose: 10 ml Documented by: Tizanidine HCl (Zanaflex) 4 mg PO Q8H PRN PRN PRN Reason: SPASMS Assessment/Plan All Active Problems Toe necrosis (Acute) Gangrene of toe of right foot (Acute) Osteomyelitis of toe of right foot (Acute) Abscess of right groin (Acute) Hyponatremia (Resolved) MRSA bacteremia (Resolved) Right second toe gangrenous changes with exposed phalanx consistent with osteomyelitis /bone with necrotic bone Right hallux gangrenous changes Bilateral heel unstageable ulcer, no infection Peripheral vascular disease, chronic Malnutrition suspected Other comorbidities I reviewed and discussed his case. He is afebrile and his vital signs remained stable. He does not appear to have wet gangrene, cellulitis, or purulence coming from the foot. The eschar was removed from the dorsal second toe there is moisture and exposed reyes head of the middle phalanx and this is clinically consistent with osteomyelitis. There was no purulence on expression or odor. Verbal consent was obtained for debridement. A medical scissor forcep was used to excisionally remove devitalized subcutaneous tissue, eschar, biofilm, slough and fibrous tissue. No bleeding was noted and he tolerated this well. It is noted there is exposed bone. A culture was obtained from the post debridement moist tissue, and was sent for aerobic, anaerobic, and MRSA PCR. I ultimately recommended surgical removal of this nonsalvageable distal right second toe. This is not an emergency situation and I suspect he has had a progressive tissue loss. I would like to remove the necrotic bone will bring appropriate instrumentation tomorrow. He has other wounds and recent diagnosis of MRSA and will therefore be seen by the infectious disease specialist tomorrow. While his plan is being developed for foot surgery versus potential palliative care, I recommend her would consider antibiotics. Is noted he is on vancomycin at this time and his cultures are pending. Input from infectious disease specialist will be greatly appreciated. Of course concern of antibiotic penetration at the toe level with his vascular disease is questionable. I recommend vascular surgery evaluation and potential intervention prior to proceeding to establish surgical intervention of the foot and a level that is more likely to heal. His noninvasive vascular studies were ordered and these have not been completed yet. It is noted he has previously seen a vascular surgeon many years ago and has not been seen recently. His right lower extremity claudication is also consistent with this clinical presentation today. I recommend proceeding with urgent toe amputation if this turns into a wet progressive or purulence presentation or if he become septic due to this condition. I will continue to follow closely while in house. Thank you for the consultation. Case was discussed with hospitalist, Dr. Davila. Please not hesitate to call if you have any questions. Naomi Palomares DPM, [facility] [phone]
[2019-09-26] MEDS: oxyCODONE 5 MG Tablet 10 MG PO (17:58)
--- NOTE | 2019-09-26 18:15 | PN.SURG_ITS ---
Patient Problems: Active and Suspected Problems Toe necrosis (Acute) Gangrene of toe of right foot (Acute) Osteomyelitis of toe of right foot (Acute) Malnutrition (Suspected) Subjective: Patient is known to me. He recently underwent surgery on 08/13/19 where he underwent excision recurrent right ischial pressure sore, Stage IV, with partial ostectomy for osteomyelitis and excision necrotic left ischial pressure sore, Stage IV, with partial ostectomy for osteomyelitis. He underwent additional surgery on 08/21/19 where he underwent Surgical preparation right inguinal area and right proximal thigh area with incision and drainage and excisional debridement submuscular abscess. Wound cultures from 08/13/19 showed Ecoli (ESBL), MRSA, Corynebacterium, Bacteroides fragilis, and Anaerobic cocci in the right ischial bone and MRSA, Corynebacterium, Bacteroides fragilis, and Anaerobic cocci in the left ischial bone and MRSA, Corynebacterium, Bacteroides fragilis, Anaerobic cocci, and Prevotella melaninogenica in the right ischial soft tissue and MRSA, Corynebacterium, and Bacteroides fragilis in the left ischial soft tissue. Wound cultures from 08/21/19 showed MRSA. He was sent to the [facility] on Vancomycin and Ertapenem. Recently he started developing gangrenous toes on the right and came to the ED for evaluation. He was admitted and continue his IV antibiotics with Vancomycin and Unasyn. I was asked to evaluate his multiple wounds to see if further operative debridement is necessary during this admission. - Physical Exam Vitals/I&O's: Vital Signs Temp Pulse Resp BP Pulse Ox 98.4 F 64 18 118/49 L 94 09/26/19 16:38 09/26/19 16:38 09/26/19 16:38 09/26/19 16:38 09/26/19 16:38 Oxygen Flow Rate (L/min) 2 Oxygen Delivery Method Nasal Cannula Weight: 156 lb Body Mass Index (BMI) 24.4 Intake and Output for Last 24 Hours 09/24/19 09/25/19 09/26/19 23:59 23:59 23:59 Intake Total 360 / 360 Balance 360 / 360 General: Alert, Oriented x3 HEENT: PERRLA, EOMI Oral: Moist Mucosa Neck: Supple Abdomen: Soft, Non-Distended Skin: Ulcer/ Wound - has bilateral ischial ulcers with radiation damage on the right along with a right inguinal and proximal thigh ulcer. These ulcers are stable. No active bleeding noted. Ischial bone is still visible since his recent operative excision in early August. He was getting Dakin's dressing changes to these ulcers and will continue them. Neurological: Cranial nerves II-XII grossly intact Psych/Mental Status: Normal Affect, Appropriate Laboratory Results 09/26/19 11:25: WBC 7.2, RBC 3.51 L, Hgb 8.2 L, Hct 27.5 L, MCV 78.3 L, MCH 23.4 L, MCHC 29.8 L, RDW Std Deviation 52.3 H, RDW Coeff of [place] 18.6 H, Plt Count 357, MPV 7.6, Immature Gran % (Auto) 0.300, Neut % (Auto) 53.0, Lymph % (Auto) 22.1, [place] % (Auto) 15.8 H, Eos % (Auto) 8.4 H, Baso % (Auto) 0.4, Absolute Neuts (auto) 3.8, Absolute Lymphs (auto) 1.58, Nucleated RBC % 0 09/26/19 11:25: PT 13.8, INR 1.1, APTT 29.7 09/26/19 11:25: Sodium 136, Potassium 4.0, Chloride 104, Carbon Dioxide 29.0, Anion Gap 3 L, BUN 32 H, Creatinine 0.49 L, Estim Creat Clear Calc 140.52, Est GFR (MDRD) Af Amer 221, Est GFR (MDRD) Non-Af 183, BUN/Creatinine Ratio 65.7 H, Glucose 93, Calcium 8.9 09/26/19 14:14: COVID-19 ([facility]) Negative Current Medications Amlodipine Besylate (Norvasc) 5 mg PO DAILY [facility] Ascorbic Acid (Vitamin C) 500 mg PO DAILY@0800 [facility] Bupropion HCl (Wellbutrin Xl) 300 mg PO DAILY [facility] Buspirone HCl (Buspar) 5 mg PO TID [facility] Doxazosin Mesylate (Cardura) 2 mg PO QHS [facility] Ezetimibe (Zetia) 10 mg PO DAILY [facility] Emollient Ointment (Eucerin Intensive Repair) 1 applic TOPICAL 4X/DAY PRN PRN; Protocol PRN Reason: ITCHING Enoxaparin Sodium (Lovenox) 40 mg SC DAILY [facility] Last Admin: 09/26/19 16:49 Dose: 40 mg Documented by: Escitalopram Oxalate (Lexapro) 10 mg PO DAILY [facility] Ferrous Gluconate (Ferrous Gluconate) 324 mg PO 1200,1700 [facility] Last Admin: 09/26/19 16:49 Dose: 324 mg Documented by: Fluticasone Propionate (Flonase Nasal [place]) 2 spray NASAL DAILY [facility] Gabapentin (Neurontin) 600 mg PO TIDCM [facility] Last Admin: 09/26/19 16:49 Dose: 600 mg Documented by: Sodium Chloride () 250 mls @ 15 mls/hr IV .[id number] PRN PRN Reason: Saline Flush Sodium Chloride () 250 mls @ 15 mls/hr IV .[id number] PRN PRN Reason: Additional IVPB Infusion Ampicillin Sodium/Sulbactam (Sodium 3 gm/ Sodium Chlor[place]) 112 mls @ 150 mls/hr IV Q6 [facility] Last Admin: 09/26/19 17:51 Dose: 150 mls/hr Documented by: Vancomycin HCl 2,000 mg/ (Sodium Chloride) 540 mls @ 250 mls/hr IV Q24H [facility] Stop: 10/02/19 07:01 Metoprolol Tartrate (Lopressor (Beta Joo)) 50 mg PO BID [facility] Morphine Sulfate () 4 mg IV Q3H PRN PRN PRN Reason: Pain Score 6-10/10 Last Admin: 09/26/19 16:40 Dose: 4 mg Documented by: Nutritional Formula ([place] Flavor) 1 packet PO TIDCM [facility] Last Admin: 09/26/19 16:49 Dose: Not Given Documented by: Nutritional Formula (Lactose Free) (Ensure Enlive) 120 ml PO 4X/DAY [facility] Last Admin: 09/26/19 16:49 Dose: Not Given Documented by: Nystatin (Mycostatin) 1 applic TOPICAL BID [facility]; Protocol Ondansetron HCl (Zofran) 4 mg IV Q8H PRN PRN PRN Reason: NAUSEA/VOMITING Oxycodone HCl (Oxyir) 10 mg PO Q4H PRN PRN PRN Reason: Pain Score 1-10/10 Last Admin: 09/26/19 17:58 Dose: 10 mg Documented by: Oxycodone HCl (Oxycontin) 15 mg PO BID [facility] Pantoprazole Sodium (Protonix) 20 mg PO DAILY [facility] Sodium Chloride () 10 - 40 ml IV UD PRN PRN Reason: SALINE FLUSH Last Admin: 09/26/19 17:54 Dose: 10 ml Documented by: Tizanidine HCl (Zanaflex) 4 mg PO Q8H PRN PRN PRN Reason: SPASMS Medical Necessity - Tobacco Use Smoking Status: Former smoker Assessment/Plan All Active Problems Toe necrosis (Acute) Gangrene of toe of right foot (Acute) Osteomyelitis of toe of right foot (Acute) Abscess of right groin (Acute) Hyponatremia (Resolved) MRSA bacteremia (Resolved) 1. Right inguinal and proximal thigh abscess ulcer. 2. Recurrent right ischial pressure sore, Stage IV. 3. 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 4. Osteomyelitis. 5. MRSA. 6. Necrotic left ischial pressure sore, Stage IV. 7. History of anal CA treated with chemotherapy and radiation therapy. 8. Anemia of chronic disease. Continue Dakin's dressing changes to the ulcers. Continue Vancomycin and Unasyn for his previous cultures last month. Another wound culture was obtained this admission. Suspect MRSA. He needs to improve his nutrition if he has any chance at healing these multiple ulcers. Last month his Prealbumin was 8.4. Encourage nutritional supplementation with protein to help the healing process. Podiatry has been consulted to evaluate his black toes on the right. A noninvasive arterial doppler study has been scheduled to look for vascular stenoses. Had a discussion with the patient about these chronic ulcers. Since his mother , he has gotten more depressed and is sitting more which has led to a new onset left ischial pressure sore. With his poor nutrition and his depression, realistically these ulcers will not heal even with complex myocutaneous flaps in the future. I think he would be a good candidate for Palliative Care at this point. He states he will think about it over the weekend. On Monday, if he wants to try and heal these multiple ulcers, then I would consider operative excision on Monday to clean up the ulcers in preparation for a return to the [facility]. After discharge, followup at the [facility].
[2019-09-26] MEDS: oxyCODONE CR 15 MG Tablet PO (21:26)
[2019-09-26] MEDS: Doxazosin 1 MG Tablet 2 MG PO (21:27)
[2019-09-26] MEDS: busPIRone 5 MG Tablet PO (21:27)
[2019-09-26] MEDS: Metoprolol Tartrate 50 MG Tablet PO (21:27)
[2019-09-26 22:23] LABS: M R Staph aureus DNA By PCR POSITIVE (Negative); Probe Check PASS; Staph aureus DNA By PCR POSITIVE (Negative)
[2019-09-26] MEDS: Nystatin Powder 15gm Bottle 1 APPLIC TOPICAL (22:26)
[2019-09-27] VITALS (8 sets, daily range): BP systolic 103–128; BP diastolic 40–84; PULSE 68–88; RESP 18; TEMP 36.8–37.4; O2SAT 94–97
[2019-09-27] MEDS: Morphine 4 MG/ML Syringe IV ×5 (02:17→20:03)
[2019-09-27] MEDS: oxyCODONE 5 MG Tablet 10 MG PO ×4 (04:38→17:07)
[2019-09-27] MEDS: Nystatin Powder 15gm Bottle 1 APPLIC TOPICAL ×3 (06:06→21:42)
[2019-09-27] MEDS: busPIRone 5 MG Tablet PO ×3 (06:13→21:41)
--- NOTE | 2019-09-27 07:03 | PCM.PROGNOTE ---
Patient Problems: Active and Suspected Problems Toe necrosis (Acute) Gangrene of toe of right foot (Acute) Osteomyelitis of toe of right foot (Acute) Malnutrition (Suspected) Subjective: This 64-year-old male with multiple comorbidities was seen bedside for right second toe ulcer with exposed bone and stable unstageable heel eschars secondary to peripheral vascular disease. He denies fever, chill, nausea, vomiting. He denies foot pain at this time. - Physical Exam Vitals/I&O's: Vital Signs Temp Pulse Resp BP Pulse Ox 98.9 F 68 18 103/50 L 94 09/27/19 06:09 09/27/19 06:09 09/27/19 06:09 09/27/19 06:09 09/27/19 06:09 Oxygen Flow Rate (L/min) 2 Oxygen Delivery Method Nasal Cannula Weight: 70.76 kg Body Mass Index (BMI) 24.4 Intake and Output for Last 24 Hours 09/25/19 09/26/19 09/27/19 23:59 23:59 23:59 Intake Total 472 / 572 664.25 / 664.25 Output Total 880 / 880 Balance 472 / 192 -215.75 / -215.75 General: Alert, Oriented x3, Cooperative HEENT: Atraumatic Extremities: No edema, No Calf Tenderness, Diminished Peripheral Pulses, - - Eschar distal right second and first toes. Skin: Ulcer/ Wound - Pre-debridement 1.1 x 1.1 x 0.3 cm with exposed reyes discolored bone of the middle phalanx. Post debridement 1.1 x 1.2 x 0.5 cm with no hematogenous drainage Musculoskeletal: No Tenderness to Palpation of Joints or Extremities, Muscle Wasting, - - No bogginess or fluctuance on palpation Neurological: - - Lack of normal epicritic sensation Psych/Mental Status: Normal Affect, Appropriate Laboratory Results 09/26/19 11:25: WBC 7.2, RBC 3.51 L, Hgb 8.2 L, Hct 27.5 L, MCV 78.3 L, MCH 23.4 L, MCHC 29.8 L, RDW Std Deviation 52.3 H, RDW Coeff of [place] 18.6 H, Plt Count 357, MPV 7.6, Immature Gran % (Auto) 0.300, Neut % (Auto) 53.0, Lymph % (Auto) 22.1, [place] % (Auto) 15.8 H, Eos % (Auto) 8.4 H, Baso % (Auto) 0.4, Absolute Neuts (auto) 3.8, Absolute Lymphs (auto) 1.58, Nucleated RBC % 0 09/26/19 11:25: PT 13.8, INR 1.1, APTT 29.7 09/26/19 11:25: Sodium 136, Potassium 4.0, Chloride 104, Carbon Dioxide 29.0, Anion Gap 3 L, BUN 32 H, Creatinine 0.49 L, Estim Creat Clear Calc 140.52, Est GFR (MDRD) Af Amer 221, Est GFR (MDRD) Non-Af 183, BUN/Creatinine Ratio 65.7 H, Glucose 93, Calcium 8.9 09/26/19 14:14: COVID-19 (SHANTA) Negative 09/26/19 18:00: S.aureus Protein A PCR POSITIVE H, MRSA (PCR) POSITIVE H 09/27/19 06:20: Vancomycin Trough Pending Current Medications Amlodipine Besylate (Norvasc) 5 mg PO DAILY [facility] Ascorbic Acid (Vitamin C) 500 mg PO DAILY@0800 [facility] Bupropion HCl (Wellbutrin Xl) 300 mg PO DAILY [facility] Buspirone HCl (Buspar) 5 mg PO TID [facility] Last Admin: 09/27/19 06:13 Dose: 5 mg Documented by: Doxazosin Mesylate (Cardura) 2 mg PO QHS [facility] Last Admin: 09/26/19 21:27 Dose: 2 mg Documented by: Ezetimibe (Zetia) 10 mg PO DAILY [facility] Emollient Ointment (Eucerin Intensive Repair) 1 applic TOPICAL 4X/DAY PRN PRN; Protocol PRN Reason: ITCHING Enoxaparin Sodium (Lovenox) 40 mg SC DAILY [facility] Last Admin: 09/26/19 16:49 Dose: 40 mg Documented by: Escitalopram Oxalate (Lexapro) 10 mg PO DAILY [facility] Ferrous Gluconate (Ferrous Gluconate) 324 mg PO 1200,1700 [facility] Last Admin: 09/26/19 16:49 Dose: 324 mg Documented by: Fluticasone Propionate (Flonase Nasal [place]) 2 spray NASAL DAILY [facility] Gabapentin (Neurontin) 600 mg PO TIDCM [facility] Last Admin: 09/26/19 16:49 Dose: 600 mg Documented by: Sodium Chloride () 250 mls @ 15 mls/hr IV .[id number] PRN PRN Reason: Saline Flush Last Infusion: 09/27/19 07:01 Dose: 0 mls/hr Documented by: Sodium Chloride () 250 mls @ 15 mls/hr IV .[id number] PRN PRN Reason: Additional IVPB Infusion Ampicillin Sodium/Sulbactam (Sodium 3 gm/ Sodium Chloride) 112 mls @ 150 mls/hr IV Q6 [facility] Last Infusion: 09/27/19 06:49 Dose: Infused Documented by: Vancomycin HCl 2,000 mg/ (Sodium Chloride) 540 mls @ 250 mls/hr IV Q24H [facility] Stop: 10/02/19 07:01 Last Admin: 09/27/19 07:01 Dose: 250 mls/hr Documented by: Metoprolol Tartrate (Lopressor (Beta Joo)) 50 mg PO BID [facility] Last Admin: 09/26/19 21:27 Dose: 50 mg Documented by: Morphine Sulfate () 4 mg IV Q3H PRN PRN PRN Reason: Pain Score 6-10/10 Last Admin: 09/27/19 06:13 Dose: 4 mg Documented by: Nutritional Formula (Chuy - [place] Flavor) 1 packet PO TIDCM [facility] Last Admin: 09/26/19 16:49 Dose: Not Given Documented by: Nutritional Formula (Lactose Free) (Ensure Enlive) 120 ml PO 4X/DAY [facility] Last Admin: 09/26/19 21:16 Dose: Not Given Documented by: Nystatin (Mycostatin Powder) 1 applic TOPICAL TID [facility]; Protocol Last Admin: 09/27/19 06:06 Dose: 1 applicatio Documented by: Ondansetron HCl (Zofran) 4 mg IV Q8H PRN PRN PRN Reason: NAUSEA/VOMITING Oxycodone HCl (Oxyir) 10 mg PO Q4H PRN PRN PRN Reason: Pain Score 1-10/10 Last Admin: 09/27/19 04:38 Dose: 10 mg Documented by: Oxycodone HCl (Oxycontin) 15 mg PO BID [facility] Last Admin: 09/26/19 21:26 Dose: 15 mg Documented by: Pantoprazole Sodium (Protonix) 20 mg PO DAILY [facility] Sodium Chloride () 10 - 40 ml IV UD PRN PRN Reason: SALINE FLUSH Last Admin: 09/26/19 17:54 Dose: 10 ml Documented by: Tizanidine HCl (Zanaflex) 4 mg PO Q8H PRN PRN PRN Reason: SPASMS Medical Necessity - Tobacco Use Smoking Status: Former smoker Assessment/Plan All Active Problems Toe necrosis (Acute) Gangrene of toe of right foot (Acute) Osteomyelitis of toe of right foot (Acute) Abscess of right groin (Acute) Hyponatremia (Resolved) MRSA bacteremia (Resolved) Right second toe gangrenous changes with exposed phalanx consistent with osteomyelitis /bone with necrotic bone Right hallux gangrenous changes Bilateral heel unstageable ulcer, no infection Peripheral vascular disease, chronic Malnutrition suspected Other comorbidities Other wounds noted with delayed healing including ishium and groin I reviewed and discussed his case. He is afebrile and his vital signs remained stable. He does not appear to have wet gangrene, cellulitis, or purulence coming from the foot. There is exposed bone and that was debrided today in an excisional manner with a sterile bone cutting device. Again there was no hematogenous drainage. A bone of the second toe was sent to microbiology for aerobic, anaerobic, acid-fast and fungal. The specimen was also sent to pathology for histopathological evaluation. Verbal consent was obtained for debridement and he tolerated this well. His initial wound cultures from yesterday are still pending. It is noted he does have a history of MRSA infections. To continue with antibiotics at this time. Infectious disease input will be greatly appreciated. A dressing consisting of Betadine with gauze was applied into the open debridement site to keep this is dry and stable as possible. Dry gauze was applied over the unstageable heel eschar site of the right foot. The left heel was left open without a dressing. He will continue with strict offloading by avoiding wearing shoes and heel hanging his heels over pillows or blankets while in bed so the sites are floating in the air. I recommend vascular surgery evaluation and potential intervention prior to proceeding to establish surgical intervention of the foot and a level that is more likely to heal. His noninvasive vascular studies were ordered and these have not been completed yet. It is noted he has previously seen a vascular surgeon many years ago and has not been seen recently. I recommend proceeding with urgent toe amputation if this turns into a wet progressive or purulence presentation or if he become septic due to this condition in which this is not noted at this time. I will continue to follow closely while in house. If discharged he can follow up at the wound healing center or foot & ankle center. Please do not hesitate to call if you have any questions. Naomi Palomares DPM, [facility] [phone]
[2019-09-27] MEDS: tiZANidine HCl 2 MG Tablet 4 MG PO (07:06)
[2019-09-27 07:11] LABS: Vancomycin, Trough Level 11.3 ug/mL (5.0-15.0)
--- NOTE | 2019-09-27 07:13 | BON_PTH ---
PATIENT: BRYN TROTTER LOC: MS3 U#:[id number] AGE/SX: 64/M ROOM: [facility] [place] RE09/26/[address]: Dr. Sunitha Garcia MD : [id number] BED: 1 DIS: 10/03/2019 SPEC #: [id number] RECD: 09/27/19 10:31 STATUS: JUAN DIEGO REQ #: [id number] BURT: 09/27/19 07:[address]: Naomi Palomares DEPT: SURGICAL PATHOLOGY RECD BY: Wesley Diana ENTERED: 09/27/19 10:31 SP TYPE: Bone OTHR DR: MD Dr. Naomi Freedman, DPM MD Dr. Zak Souza DO Dr. Javier Escamilla MD Tissues: Bone of foot, NOS Procedures: Decalcification bone/plaque Special Stain Group I Surgery Specimen Level IV AFB Stain (control) GMS Stain (control) Comments: @ Ordering doctor for DEC edited from to @ by ALBERTA at 09/27/19 1032 @ Ordering doctor for SUIII edited from to @ by ALBERTA at 09/27/19 1032 @ Submitting doctor edited from to @ by ALBERTA at 09/27/19 1032 HEADER OPERATION: Right second toe bone scrapings PRE-OP DIAGNOSIS: Gangrene TISSUE SUBMITTED: Right second toe bone scrapings MICROSCOPIC DIAGNOSIS Right second toe bone scrapings: A piece of bone with acute osteomyelitis. Special stains for acid fast bacilli and fungi are negative for organisms; matched controls are appropriate. GALLO:isi 09/30/19 MICROSCOPIC DESCRIPTION Slides are reviewed. GROSS DESCRIPTION Received in fixative is one container labeled with the patient's name and designated bone scrapings. The specimen consists of a piece of bone measuring 0.5 x 0.5 x 0.3 cm. The entire specimen is submitted in one cassette after decalcification. / GALLO:isi 09/27/19 TC:2 CPT: 01546, 92845, 12759 x2
--- NOTE | 2019-09-27 07:27 | PCM.RX.CS ---
Consult Pharmacy has been consulted to manage selected antiobiotic: Vancomycin Type of Consult: Follow-up Labs: Sodium 136 mmol/L (136-145) 09/26/19 11:25 Potassium 4.0 mmol/L (3.5-5.1) 09/26/19 11:25 Chloride 104 mmol/L (98-107) 09/26/19 11:25 Carbon Dioxide 29.0 mmol/L (21.0-32.0) 09/26/19 11:25 Anion Gap 3 (5-15) L 09/26/19 11:25 BUN 32 mg/dL (7-18) H 09/26/19 11:25 Creatinine 0.49 mg/dL (0.70-1.30) L 09/26/19 11:25 Est GFR (MDRD) Af Amer 221 mL/min (>60) 09/26/19 11:25 Est GFR (MDRD) Non-Af 183 mL/min (>60) 09/26/19 11:25 BUN/Creatinine Ratio 65.7 RATIO (10-20) H 09/26/19 11:25 Glucose 93 mg/dL (74-106) 09/26/19 11:25 Vancomycin Trough 11.3 ug/mL (5.0-15.0) 09/27/19 06:20 Weight used for dosin kg Goal Trough: 15-20 mcg/mL Pharmacy Plan for Drug Dosing: Trough level below goal range. May have been on q24h for ease of dosing but patient's BMI is within normal range and crcl is very good. Recommend to move patient to 1000mg IV q12h for better kinetics. Check trough prior to 4th dose. As a note - 2000mg dose was charted as given at 0701 on 09/27/19 but in talking with nurse, it had not actually started running yet. Pharmacy Service will continue to monitor and adjust dosing as required. Follow-Up Labs: Trough Vancomycin - 09/27 @ 1930
[2019-09-27 07:39] LABS: Acid Fast Stain SEE PATHOLOGY REPORT
[2019-09-27] MEDS: Vancomycin IV 1,000 MG/200 ML BAG 200 MG IV ×2 (09:12→20:02)
[2019-09-27] MEDS: Gabapentin 600 MG Tablet PO ×3 (09:14→17:07)
[2019-09-27] MEDS: Ezetimibe 10 MG Tablet PO (09:14)
[2019-09-27] MEDS: Metoprolol Tartrate 50 MG Tablet PO ×2 (09:14→21:41)
[2019-09-27] MEDS: amLODIPine 5 MG Tablet PO (09:14)
[2019-09-27] MEDS: Escitalopram Oxalate 10 MG Tablet PO (09:14)
[2019-09-27] MEDS: buPROPion (XL) 300 MG TABLET.XL PO (09:14)
[2019-09-27] MEDS: Pantoprazole Sodium 20 MG Tablet PO (09:14)
[2019-09-27] MEDS: Enoxaparin 40 MG/0.4 ML Syringe SC (09:15)
[2019-09-27] MEDS: Fluticasone 0.05% 1 SPRAY NASAL.SRY 2 SPRAY NASAL (09:15)
[2019-09-27] MEDS: Ascorbic Acid 500 MG Tablet PO (09:15)
[2019-09-27] MEDS: oxyCODONE CR 15 MG Tablet PO (09:27)
--- NOTE | 2019-09-27 09:34 | CASEMGMT ---
Addendum entered by Caroline Og 09/27/19 15:48: SHAHANA updated that pt will likely have surgery again with Dr. Mesa, will be at [facility] through the weekend. SHAHANA placed a call to Tala at [facility] and updated her. Addendum entered by Caroline Og 09/27/19 14:53: SW received call from Tala at [facility]. Tala states she has a call out to [facility] and is waiting for a call back regarding if pt is able to return to [facility] without a pre-cert. SHAHANA waiting for call back. Addendum entered by Caroline Og 09/27/19 11:33: SHAHANA received call from Tala at [facility]. Tala states pt is bed hold, is able to return but [facility] needed to provide an update today to pt's insurance and as long as they get the update submitted and Tala gets approval from her medical records administrator, pt will be able to return over the weekend when medically ready. SHAHANA asked Tala to let this worker know when she gets approval from medical records administrator. SHAHANA updated Tala that pt is agreeable to Palliative Care speaking with him once he returns to SNF. Tala states she will let social service know and they will make Palliative Care Referral for pt. Addendum entered by Caroline Og 09/27/19 09:56: SHAHANA updated that pt is agreeable to Palliative Care Referral. SHAHANA in to speak with pt. SHAHANA familiar with pt from previous visits. SHAHANA introduced self and role at [facility]. Pt is alert and orientated x3, confirms he is from [facility] and will return at discharge. SHAHANA asked pt about Palliative Care. Pt agreeable to Palliative Care referral. SHAHANA explained that this worker will update [facility] regarding Palliative Care and get the referral started. Pt states understanding, denied additional needs or concerns. SHAHANA faxed updated clinicals to [facility]. Once [facility] calls this worker back, SHAHANA will ask what company they use for Palliative Care. Original Note: Social Work Note Pt is resident of [facility]. SHAHANA placed a call to Tala at [facility], left message, asking if pt needs pre-cert to return or if pt can return when medically cleared. SHAHANA waiting for call back. Caroline Og [employer]
[2019-09-27] MEDS: Ferrous Gluconate 324 MG Tablet PO ×2 (11:11→17:07)
--- NOTE | 2019-09-27 13:55 | PCM.PROGNOTE ---
Patient Problems: Active and Suspected Problems Toe necrosis (Acute) Gangrene of toe of right foot (Acute) Osteomyelitis of toe of right foot (Acute) Malnutrition (Suspected) Subjective: Patient seen and examined. Discussed in length plan of care. Given ongoing nonhealing wounds, discussed palliative/hospice. Patient tearful during the discussion and states the wounds have to heal. Patient agreeable to palliative however not amendable to hospice at this time. He denies fever, chills. - Physical Exam Vitals/I&O's: Vital Signs Temp Pulse Resp BP Pulse Ox 98.2 F 70 18 103/53 L 96 09/27/19 10:00 09/27/19 10:00 09/27/19 10:00 09/27/19 10:00 09/27/19 10:00 Oxygen Flow Rate (L/min) 2 Oxygen Delivery Method Room Air Weight: 156 lb Body Mass Index (BMI) 24.4 Intake and Output for Last 24 Hours 09/25/19 09/26/19 09/27/19 23:59 23:59 23:59 Intake Total 472 / 572 1144.75 / 1144.75 Output Total 880 / 880 Balance 472 / 192 264.75 / 264.75 General: Alert, Oriented x3, Cooperative HEENT: Atraumatic, PERRLA, EOMI, Normocephalic Neck: Supple, No JVD, Negative Carotid Bruits Lungs: Clear to auscultation, Normal air movement Cardiovascular: Regular rate, No murmurs Abdomen: Bowel Sounds Present, Soft, Non Tender, Non-Distended, - - Colostomy intact Extremities: No clubbing, No cyanosis, No edema, Capillary Refill Less than 3 Seconds Skin: No rashes, - - Right groin wound from prior abscess with wound VAC in place. Bilateral ischium stage IV pressure ulcers, stage II sacral pressure ulcer. Right first and second toe necrosis. Foul smell noted from ischial ulcerations. Unstageable bilateral heel pressure ulcers. Musculoskeletal: No Tenderness to Palpation of Joints or Extremities, Muscle Wasting Neurological: Cranial nerves II-XII grossly intact, Neuro grossly intact Psych/Mental Status: Flat Affect Laboratory Results 09/26/19 14:14: COVID-19 (SHANTA) Negative 09/26/19 18:00: S.aureus Protein A PCR POSITIVE H, MRSA (PCR) POSITIVE H 09/27/19 06:20: Vancomycin Trough 11.3 09/27/19 06:58: Acid Fast Stain Pending 09/27/19 06:58: Miscellaneous Test Pending 09/27/19 06:58: Miscellaneous Test Pending Current Medications Amlodipine Besylate (Norvasc) 5 mg PO DAILY [facility] Last Admin: 09/27/19 09:14 Dose: 5 mg Documented by: Ascorbic Acid (Vitamin C) 500 mg PO DAILY@0800 [facility] Last Admin: 09/27/19 09:15 Dose: 500 mg Documented by: Bupropion HCl (Wellbutrin Xl) 300 mg PO DAILY [facility] Last Admin: 09/27/19 09:14 Dose: 300 mg Documented by: Buspirone HCl (Buspar) 5 mg PO TID [facility] Last Admin: 09/27/19 13:00 Dose: 5 mg Documented by: Doxazosin Mesylate (Cardura) 2 mg PO QHS [facility] Last Admin: 09/26/19 21:27 Dose: 2 mg Documented by: Ezetimibe (Zetia) 10 mg PO DAILY [facility] Last Admin: 09/27/19 09:14 Dose: 10 mg Documented by: Emollient Ointment (Eucerin Intensive Repair) 1 applic TOPICAL 4X/DAY PRN PRN; Protocol PRN Reason: ITCHING Enoxaparin Sodium (Lovenox) 40 mg SC DAILY [facility] Last Admin: 09/27/19 09:15 Dose: 40 mg Documented by: Escitalopram Oxalate (Lexapro) 10 mg PO DAILY [facility] Last Admin: 09/27/19 09:14 Dose: 10 mg Documented by: Ferrous Gluconate (Ferrous Gluconate) 324 mg PO 1200,1700 [facility] Last Admin: 09/27/19 11:11 Dose: 324 mg Documented by: Fluticasone Propionate (Flonase Nasal [place]) 2 spray NASAL DAILY [facility] Last Admin: 09/27/19 09:15 Dose: 2 spray Documented by: Gabapentin (Neurontin) 600 mg PO TIDCM [facility] Last Admin: 09/27/19 11:11 Dose: 600 mg Documented by: Sodium Chloride () 250 mls @ 15 mls/hr IV .[id number] PRN PRN Reason: Saline Flush Last Infusion: 09/27/19 12:14 Dose: 15 mls/hr Documented by: Sodium Chloride () 250 mls @ 15 mls/hr IV .[id number] PRN PRN Reason: Additional IVPB Infusion Ampicillin Sodium/Sulbactam (Sodium 3 gm/ Sodium Chloride) 112 mls @ 150 mls/hr IV Q6 [facility] Last Infusion: 09/27/19 12:14 Dose: Infused Documented by: Vancomycin HCl (Vancomycin) 1,000 mg in 200 mls @ 200 mls/hr IV Q12H [facility] Last Infusion: 09/27/19 10:12 Dose: Infused Documented by: Metoprolol Tartrate (Lopressor (Beta Joo)) 50 mg PO BID [facility] Last Admin: 09/27/19 09:14 Dose: 50 mg Documented by: Morphine Sulfate () 4 mg IV Q3H PRN PRN PRN Reason: Pain Score 6-10/10 Last Admin: 09/27/19 11:19 Dose: 4 mg Documented by: Nutritional Formula (Chuy - [place] Flavor) [facility] Nutritional Formula (Lactose Free) (Ensure Enlive) 120 ml PO 4X/DAY [facility] Last Admin: 09/27/19 12:58 Dose: 120 ml Documented by: Nystatin (Mycostatin Powder) 1 applic TOPICAL TID [facility]; Protocol Last Admin: 09/27/19 13:00 Dose: 1 applicatio Documented by: Ondansetron HCl (Zofran) 4 mg IV Q8H PRN PRN PRN Reason: NAUSEA/VOMITING Oxycodone HCl (Oxyir) 10 mg PO Q4H PRN PRN PRN Reason: Pain Score 1-10/10 Last Admin: 09/27/19 12:58 Dose: 10 mg Documented by: Oxycodone HCl (Oxycontin) 15 mg PO BID [facility] Last Admin: 09/27/19 09:27 Dose: 15 mg Documented by: Pantoprazole Sodium (Protonix) 20 mg PO DAILY [facility] Last Admin: 09/27/19 09:14 Dose: 20 mg Documented by: Sodium Chloride () 10 - 40 ml IV UD PRN PRN Reason: SALINE FLUSH Last Admin: 09/26/19 17:54 Dose: 10 ml Documented by: Tizanidine HCl (Zanaflex) 4 mg PO Q8H PRN PRN PRN Reason: SPASMS Last Admin: 09/27/19 07:06 Dose: 4 mg Documented by: Medical Necessity - Tobacco Use Smoking Status: Former smoker Assessment/Plan All Active Problems Toe necrosis (Acute) Gangrene of toe of right foot (Acute) Osteomyelitis of toe of right foot (Acute) Abscess of right groin (Acute) Hyponatremia (Resolved) MRSA bacteremia (Resolved) 1. Gangrenous right great distal toe and right second toe with possible right second toe osteomyelitis-podiatry consulted. Continue Unasyn and vancomycin. Vascular studies ordered which demonstrate PVD and moderately severe bilateral lower extremity arterial occlusive disease. Patient underwent bedside debridement of right second toe. Bone biopsy/tissue culture sent. Continue dressing changes per podiatry orders. Possible need for further surgical intervention. 2. Chronic right and left ischium stage IV pressure injuries, stage II sacral pressure injury, unstageable heel eschars-present on admission. Dr. Mesa consulted for further evaluation given appearance and foul smell. Prior debridement 08/13/2019. History of pelvic osteomyelitis and MRSA. Daily dressing changes with Dakins pending plastic surgery consult. 3. Recent right groin abscess status post I&D with wound VAC placement- Dr. Mesa consult as noted above. 4. History of anal cancer status post chemotherapy and radiation-colostomy in place. 5. Chronic COPD-no exacerbation. As needed albuterol aerosol. 6. Hypertension-stable, continue amlodipine, metoprolol. 7. Hyperlipidemia-continue statin. 8. Chronic anemia-stable, trend CBC. 9. History of hepatitis C 10. Anxiety/depression-continue Wellbutrin, BuSpar, Lexapro. 11. GERD-continue home omeprazole regimen. 12. Debility-currently at SNF. PT/OT. 13. PVD/moderately severe bilateral lower extremity arterial occlusive disease-Per vascular studies. Outpatient follow-up with vascular surgeon. DVT prophylaxis-Lovenox subcu. This patient was seen by AG Bowling under the supervision of Dr. Mcdonald.
--- NOTE | 2019-09-27 17:27 | PCM.HP.ID ---
Problem List (1) Toe necrosis Status: Acute Reason for Consult: toe gangrene Consulted by: Dr. Mcdonald History of Present Illness: The patient is a 64 year old M with sacral osteo related to rectal cancer requiring radiation therapy, admitted in August for surgical debridement, discharged on vanc and ertapenem. Has been at [facility], erta completed earlier this week. Remained on vanc. Reports R foot with progressive changes, toes turning black over past 2 months. No pain, no fever, no n/v/d, no issues with picc. Admitted here on vanc/unasyn. Full ROS performed and neg except as noted above. 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) Infection and inflammatory reaction due to internal left knee prosthesis, initial encounter (Chronic) History of total left knee replacement (Chronic) Skin ulcer of left thigh with fat layer exposed (Chronic) Pressure ulcer of right buttock, stage 3 (Chronic) Skin ulcer of elbow with fat layer exposed (Chronic) Decubitus ulcer of left heel, stage 2 (Chronic) Debility (Chronic) Personal history of Methicillin resistant Staphylococcus aureus infection (Chronic) Acute osteomyelitis of right pelvic region (Chronic) History of anal cancer (Chronic) 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, 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) Anal cancer (Chronic) Hepatitis C carrier (Chronic) COPD (chronic obstructive pulmonary disease) (Chronic) Anxiety and depression (Chronic) HTN (hypertension) (Chronic) HLD (hyperlipidemia) (Chronic) GERD (gastroesophageal reflux disease) (Chronic) PAD (peripheral artery disease) (Chronic) Allergies/Adverse Reactions: Allergies chlorthalidone Allergy (Verified 09/26/19 10:56) Other famotidine Allergy (Verified 09/26/19 10:56) Unknown povidone-iodine [From Betadine] Allergy (Verified 09/26/19 10:56) Hives soap Adverse Reaction (Verified 09/26/19 10:56) Hives [id number] Reductase Inhibitor Adverse Reaction (Verified 09/26/19 10:56) MESSED MY LIVER UP adhesive tape Allergy (Uncoded 08/12/19 16:20) Itching/rash Home Medications: Ambulatory Orders Medication Instructions Recorded Escitalopram Oxalate [Lexapro] 10 mg PO DAILY 03/22/16 Fluticasone 0.05% [Flonase Nasal 2 spray NASAL DAILY 03/22/16 [place]] Multivitamin [Multiple Vitamins] 1 each PO DAILY 03/22/16 buPROPion XL [Wellbutrin Xl] 300 mg PO DAILY 03/22/16 busPIRone [Buspar] 5 mg PO TID 03/22/16 Tizanidine HCl [Zanaflex] 4 mg PO 4X/DAY PRN PRN 12/27/16 Metoprolol Tartrate [Lopressor 50 mg PO BID 01/19/18 (beta curt)] Amlodipine [Norvasc] 5 mg PO DAILY 08/22/18 Ascorbic Acid [Vitamin C] 500 mg PO DAILY@0800 08/22/18 Ferrous Gluconate 324 mg PO BID 08/22/18 Ezetimibe [Zetia] 10 mg PO DAILY 10/18/18 Nystatin [Mycostatin] 1 applic TOPICAL BID 02/08/19 Doxazosin Mesylate [Cardura] 2 mg PO QHS 08/12/19 Gabapentin [Neurontin] 600 mg PO TIDCM 08/12/19 Ibuprofen 800 mg PO TID 08/12/19 Cholecalciferol (Vitamin D3) 25 gm MC DAILY 09/26/19 [Cholecalciferol] DiphenhydrAMINE [Benadryl] 25 mg PO Q8H PRN PRN 09/26/19 Omeprazole 20 mg PO DAILY 09/26/19 Oxycodone CR [Oxycontin] 15 mg PO DAILY 09/26/19 Oxycodone HCl 10 mg PO Q4H PRN PRN 09/26/19 Umeclidinium [place] [Incruse 1 puff IH DAILY 09/26/19 [place]] Vancomycin IV 2,000 mg IV Q24H 09/26/19 - Social History SMOKING STATUS:: Former smoker Vital Signs Temp Pulse Resp BP Pulse Ox 99.3 F H 88 18 128/66 H 97 09/27/19 19:59 09/27/19 21:41 09/27/19 19:59 09/27/19 19:59 09/27/19 19:59 Oxygen Flow Rate (L/min) 2 Oxygen Delivery Method Room Air Weight: 70.76 kg Body Mass Index (BMI) 24.4 Microbiology Past 72 Hours 09/27/19 06:58 Gram Stain - Final Wound - Right Foot 09/26/19 18:00 Gram Stain - Final Wound - Aerobic & Anaerobic Swabs Wound Culture - Preliminary Staphylococcus aureus Laboratory Tests Past 24 Hrs 09/27/19 09/27/19 09/27/19 06:20 06:58 06:58 Vancomycin Trough 11.3 Acid Fast Stain Pending Miscellaneous Test Pending 09/27/19 06:58 Vancomycin Trough Acid Fast Stain Miscellaneous Test Pending - Other Studies Radiology: [] reviewed Other Studies: [] Route of nutrition/ use of supplements: [] Nutritional Intake: [] IV Site: [] Walker Catheter: [] - Physical Exam General: Alert, Oriented x3, Cooperative, No apparent distress HEENT: Atraumatic, PERRLA, EOMI Neck: Supple, No Nodes Lungs: Clear to auscultation, Normal air movement Cardiovascular: Regular rate, Regular Rhythm, No murmurs Abdomen: Soft, Non Tender, Non-Distended Extremities: No edema Skin: Ulcer/ Wound - R foot wrapped s/p debridement IV Site: PICC, without redness Musculoskeletal: No Tenderness to Palpation of Joints or Extremities Neurological: Cranial nerves II-XII grossly intact - Assessment/Plan Antibiotics: [] Assessment/Plan: [] Active and Suspected Problems Toe necrosis (Acute) Gangrene of toe of right foot (Acute) Osteomyelitis of toe of right foot (Acute) Malnutrition (Suspected) Sacral osteo and R foot gangrene - cxs showing GPC and staph so far. On vanc/unasyn. Dr. Mesa and Dr. Palomares following. Thank you, will follow, d/w Dr. Mcdonald
--- NOTE | 2019-09-27 18:40 | NURSING ---
dressings changed with dakins solution per order
[2019-09-27] MEDS: DAKIN'S SOL HALF STRENGTH (=0.25%) 1 APPLIC TOPICAL (19:15)
[2019-09-27] MEDS: 0.9% Saline Lock 10 ML Syringe IV (20:03)
[2019-09-27] MEDS: Doxazosin 1 MG Tablet 2 MG PO (21:41)
[2019-09-28 02:15] VITALS: BP 131/55; PULSE 75; RESP 16; TEMP 36.9; O2SAT 95
[2019-09-28] MEDS: Morphine 4 MG/ML Syringe IV ×3 (02:20→20:24)
[2019-09-28] MEDS: 0.9% Saline Lock 10 ML Syringe IV ×3 (02:20→20:28)
[2019-09-28] MEDS: busPIRone 5 MG Tablet PO ×3 (06:09→22:20)
[2019-09-28] MEDS: Nystatin Powder 15gm Bottle 1 APPLIC TOPICAL ×3 (06:09→22:20)
[2019-09-28] MEDS: oxyCODONE 5 MG Tablet 10 MG PO ×2 (06:10→12:15)
[2019-09-28 06:44] LABS: Hematocrit 26.2 % (40-54); Hemoglobin 7.9 g/dL (13.0-16.5); Mean Corp Hgb Conc 30.2 g/dL (32-36); Mean Corpuscular Hgb 23.4 pg (27.0-32.0); Mean Corpuscular Volume 77.7 fL (80-94); Mean Platelet Vol. 7.8 fl (6.2-12.0); Platelet Count 359 K/mm3 (150-450); RBC Distribution Width CV 17.9 % (11.6-14.6); Red Blood Count 3.37 M/mm3 (4.6-6.2); White Blood Count 6.7 K/mm3 (4.4-11.0)
[2019-09-28 06:54] LABS: Anion Gap 3 (5-15); BUN 18 mg/dL (7-18); BUN/Creat Ratio 40.7 RATIO (10-20); Calcium,Total 8.8 mg/dL (8.5-10.1); Chloride 101 mmol/L (98-107); Creatinine, Serum 0.44 mg/dL (0.70-1.30); EST Glomerular Filtration Rate 204 mL/min (>60); Est Glom Filt Rate - Afr Amer 247 mL/min (>60); Estimated Creatinine Clearance 156.49 ml/min; Glucose 99 mg/dL (74-106); Potassium 4.3 mmol/L (3.5-5.1); Sodium Level 134 mmol/L (136-145)
[2019-09-28] MEDS: Vancomycin IV 1,000 MG/200 ML BAG 200 MG IV ×2 (07:47→20:02)
[2019-09-28] MEDS: Ascorbic Acid 500 MG Tablet PO (07:47)
[2019-09-28] MEDS: Gabapentin 600 MG Tablet PO ×3 (07:47→17:16)
--- NOTE | 2019-09-28 07:54 | PN_ITS ---
Patient Problems: Active and Suspected Problems Toe necrosis (Acute) Gangrene of toe of right foot (Acute) Osteomyelitis of toe of right foot (Acute) Malnutrition (Suspected) Subjective: This 64-year-old male with multiple comorbidities including peripheral vascular disease was seen bedside for gangrenous changes to his first and second toe and unstageable heel ulcers bilaterally. He denies foot pain. He denies fever, chill, nausea, vomiting. - Physical Exam Vitals/I&O's: Vital Signs Temp Pulse Resp BP Pulse Ox 98.5 F 75 16 131/55 H 95 09/28/19 02:15 09/28/19 02:15 09/28/19 02:15 09/28/19 02:15 09/28/19 02:15 Oxygen Flow Rate (L/min) 2 Oxygen Delivery Method Room Air Weight: 70.76 kg Body Mass Index (BMI) 24.4 Intake and Output for Last 24 Hours 09/26/19 09/27/19 09/28/19 23:59 23:59 23:59 Intake Total 472 / 572 2049.75 / 2049.75 341.75 / 341.75 Output Total 2205 / 2205 1000 / 1000 Balance 472 / 192 -155.25 / -155.25 -658.25 / -658.25 General: Alert, Oriented x3, Cooperative Extremities: No edema - Lower extremity, Diminished Peripheral Pulses - Nonpalpable pulses, - - No pain with foot palpation or manipulation. Compartments are soft to palpate bilateral lower extremity. He has nonpalpable PT and DP pulses bilateral Skin: Ulcer/ Wound - Lack of capillary fill time to distal right hallux with deep tissue loss remains dry and stable today. The distal dorsal second toe gangrenous area where the bone biopsy and debridement was performed remained stable there is no purulence on expression, odor, erythema or streaking. Bilateral unstageable heel eschars remain dry without local signs of infection also. His skin is atrophic and hairless. Musculoskeletal: No Tenderness to Palpation of Joints or Extremities, Muscle Wasting Neurological: - - Lack of epicritic sensation light touch is consistent with neuropathy status Psych/Mental Status: Normal Affect, Appropriate Microbiology Past 72 Hours 09/27/19 06:58 Wound - Right Foot Gram Stain - Final 09/26/19 18:00 Wound - Aerobic & Anaerobic Swabs Gram Stain - Final 09/26/19 18:00 Wound - Aerobic & Anaerobic Swabs Wound Culture - Preliminary Staphylococcus aureus Laboratory Results 09/27/19 06:58: Miscellaneous Test Pending 09/28/19 06:14: WBC 6.7, RBC 3.37 L, Hgb 7.9 L, Hct 26.2 L, MCV 77.7 L, MCH 23.4 L, MCHC 30.2 L, RDW Std Deviation 51.0 H, RDW Coeff of Rosendo 17.9 H, Plt Count 359, MPV 7.8 09/28/19 06:14: Sodium 134 L, Potassium 4.3, Chloride 101, Carbon Dioxide 30.0, Anion Gap 3 L, BUN 18, Creatinine 0.44 L, Estim Creat Clear Calc 156.49, Est GFR (MDRD) Af Amer 247, Est GFR (MDRD) Non-Af 204, BUN/Creatinine Ratio 40.7 H, Glucose 99, Calcium 8.8 Current Medications Amlodipine Besylate (Norvasc) 5 mg PO DAILY [facility] Last Admin: 09/27/19 09:14 Dose: 5 mg Documented by: Ascorbic Acid (Vitamin C) 500 mg PO DAILY@0800 [facility] Last Admin: 09/28/19 07:47 Dose: 500 mg Documented by: Bupropion HCl (Wellbutrin Xl) 300 mg PO DAILY [facility] Last Admin: 09/27/19 09:14 Dose: 300 mg Documented by: Buspirone HCl (Buspar) 5 mg PO TID [facility] Last Admin: 09/28/19 06:09 Dose: 5 mg Documented by: Diphenhydramine HCl (Benadryl) 25 mg PO BID PRN PRN PRN Reason: ITCHING Doxazosin Mesylate (Cardura) 2 mg PO QHS [facility] Last Admin: 09/27/19 21:41 Dose: 2 mg Documented by: Ezetimibe (Zetia) 10 mg PO DAILY [facility] Last Admin: 09/27/19 09:14 Dose: 10 mg Documented by: Emollient Ointment (Eucerin Intensive Repair) 1 applic TOPICAL 4X/DAY PRN PRN; Protocol PRN Reason: ITCHING Enoxaparin Sodium (Lovenox) 40 mg SC DAILY [facility] Last Admin: 09/27/19 09:15 Dose: 40 mg Documented by: Escitalopram Oxalate (Lexapro) 10 mg PO DAILY [facility] Last Admin: 09/27/19 09:14 Dose: 10 mg Documented by: Ferrous Gluconate (Ferrous Gluconate) 324 mg PO 1200,1700 [facility] Last Admin: 09/27/19 17:07 Dose: 324 mg Documented by: Fluticasone Propionate (Flonase Nasal [place]) 2 spray NASAL DAILY [facility] Last Admin: 09/27/19 09:15 Dose: 2 spray Documented by: Gabapentin (Neurontin) 600 mg PO TIDCM [facility] Last Admin: 09/28/19 07:47 Dose: 600 mg Documented by: Sodium Chloride () 250 mls @ 15 mls/hr IV .[id number] PRN PRN Reason: Saline Flush Last Infusion: 09/28/19 06:09 Dose: 0 mls/hr Documented by: Sodium Chloride () 250 mls @ 15 mls/hr IV .[id number] PRN PRN Reason: Additional IVPB Infusion Ampicillin Sodium/Sulbactam (Sodium 3 gm/ Sodium Chloride) 112 mls @ 150 mls/hr IV Q6 [facility] Last Admin: 09/28/19 06:09 Dose: 150 mls/hr Documented by: Vancomycin HCl (Vancomycin) 1,000 mg in 200 mls @ 200 mls/hr IV Q12H [facility] Last Admin: 09/28/19 07:47 Dose: 200 mls/hr Documented by: Metoprolol Tartrate (Lopressor (Beta Joo)) 50 mg PO BID [facility] Last Admin: 09/27/19 21:41 Dose: 50 mg Documented by: Morphine Sulfate () 4 mg IV Q3H PRN PRN PRN Reason: Pain Score 6-10/10 Last Admin: 09/28/19 02:20 Dose: 4 mg Documented by: Nutritional Formula (Chuy - Costilla Flavor) 1 packet PO BIDCM [facility] Last Admin: 09/28/19 07:47 Dose: Not Given Documented by: Nutritional Formula (Lactose Free) (Ensure Enlive) 120 ml PO 4X/DAY [facility] Last Admin: 09/27/19 21:42 Dose: Not Given Documented by: Nystatin (Mycostatin Powder) 1 applic TOPICAL TID [facility]; Protocol Last Admin: 09/28/19 06:09 Dose: 1 applicatio Documented by: Ondansetron HCl (Zofran) 4 mg IV Q8H PRN PRN PRN Reason: NAUSEA/VOMITING Oxycodone HCl (Oxyir) 10 mg PO Q4H PRN PRN PRN Reason: Pain Score 1-10/10 Last Admin: 09/28/19 06:10 Dose: 10 mg Documented by: Oxycodone HCl (Oxycontin) 20 mg PO BID [facility] Last Admin: 09/27/19 21:42 Dose: 20 mg Documented by: Pantoprazole Sodium (Protonix) 20 mg PO DAILY [facility] Last Admin: 09/27/19 09:14 Dose: 20 mg Documented by: Sodium Chloride () 10 - 40 ml IV UD PRN PRN Reason: SALINE FLUSH Last Admin: 09/28/19 02:20 Dose: 10 ml Documented by: Sodium Hypochlorite (Dakins Solution 0.25% (1/2 Strength)) 1 applic TOPICAL BID [facility]; Protocol Last Admin: 09/27/19 19:15 Dose: 1 applicatio Documented by: Tizanidine HCl (Zanaflex) 4 mg PO Q8H PRN PRN PRN Reason: SPASMS Last Admin: 09/27/19 07:06 Dose: 4 mg Documented by: Medical Necessity - Tobacco Use Smoking Status: Former smoker Assessment/Plan All Active Problems Toe necrosis (Acute) Gangrene of toe of right foot (Acute) Osteomyelitis of toe of right foot (Acute) Abscess of right groin (Acute) Hyponatremia (Resolved) MRSA bacteremia (Resolved) Right second toe gangrenous changes with exposed phalanx consistent with osteomyelitis /bone with necrotic bone Right hallux gangrenous changes Bilateral heel unstageable ulcer,, no infection Peripheral vascular disease, chronic Malnutrition suspected Other comorbidities Other wounds noted with delayed healing including ishium and groin I reviewed and discussed his case. He is afebrile and his vital signs remained stable. He does not have leukocytosis. His wound culture on his foot demonstrates Staphylococcus aureus with final report pending so far. He is on vancomycin and Unasyn. It is noted he does have a current MRSA positive culture and is on contact precautions. The pathology bone biopsy from his right second toe is still pending. To continue with antibiotics at this time. Infectious disease input will be greatly appreciated. He had a prior complicated course of other ulcers that were recently treated with long-term antibiotics with PICC line. A dressing consisting of Betadine with gauze was reapplied today to the right foot. The left heel was left open without a dressing. He will continue with strict offloading by avoiding wearing shoes and heel hanging his heels over pillows or blankets while in bed so the sites are floating in the air. I recommend vascular surgery evaluation. His noninvasive vascular studies demonstrate moderate to severe occlusive disease. He has monophasic waveforms bilateral. His right ankle-brachial index is 0.67 and the left is 0.58. If he is going be staying in house for surgical debridement of his ischial wound, I would consult vascular surgery to see him during this admission. If he is going to get discharged back to the extended care facility, then I would recommend him seeing a vascular specialist within the next 1 to 2 weeks in the outpatient setting. I do not recommend proceeding forward with any foot surgery until vascular status is improved unless it becomes an emergent situation. His foot has maintained a stable presentation again today. I will continue to follow him every few days while in house. If discharged he can follow up at the wound healing center or foot & ankle center. Please do not hesitate to call if you have any questions. Naomi Palomares DPM, F[facility] [phone]
[2019-09-28 09:23] VITALS: BP 109/52; PULSE 68; RESP 16; TEMP 36.6; O2SAT 96
[2019-09-28] MEDS: DAKIN'S SOL HALF STRENGTH (=0.25%) 1 APPLIC TOPICAL ×2 (09:28→22:21)
[2019-09-28 09:29] VITALS: PULSE 68
[2019-09-28] MEDS: Escitalopram Oxalate 10 MG Tablet PO (09:29)
[2019-09-28] MEDS: Fluticasone 0.05% 1 SPRAY NASAL.SRY 2 SPRAY NASAL (09:29)
[2019-09-28] MEDS: Metoprolol Tartrate 50 MG Tablet PO ×2 (09:29→22:20)
[2019-09-28] MEDS: amLODIPine 5 MG Tablet PO (09:30)
[2019-09-28] MEDS: Enoxaparin 40 MG/0.4 ML Syringe SC (09:30)
[2019-09-28] MEDS: Ezetimibe 10 MG Tablet PO (09:31)
[2019-09-28] MEDS: DiphenhydrAMINE 25 MG Capsule PO (09:31)
[2019-09-28] MEDS: buPROPion (XL) 300 MG TABLET.XL PO (09:31)
[2019-09-28] MEDS: Pantoprazole Sodium 20 MG Tablet PO (09:31)
[2019-09-28] MEDS: Ferrous Gluconate 324 MG Tablet PO ×2 (12:07→17:16)
--- NOTE | 2019-09-28 12:23 | PCM.PROGNOTE ---
Patient Problems: Active and Suspected Problems Toe necrosis (Acute) Gangrene of toe of right foot (Acute) Osteomyelitis of toe of right foot (Acute) Malnutrition (Suspected) Subjective: Patient seen and examined. Reports pain is well controlled. Discussed plan of care including possible wound debridement by Dr. Mesa. Patient in agreement. - Physical Exam Vitals/I&O's: Vital Signs Temp Pulse Resp BP Pulse Ox 97.9 F 68 16 109/52 L 96 09/28/19 09:23 09/28/19 09:29 09/28/19 09:23 09/28/19 09:23 09/28/19 09:23 Oxygen Flow Rate (L/min) 2 Oxygen Delivery Method Room Air Weight: 155 lb 15.985 oz Body Mass Index (BMI) 24.4 Intake and Output for Last 24 Hours 09/26/19 09/27/19 09/28/19 23:59 23:59 23:59 Intake Total 472 / 572 2049.75 / 2049.75 653.75 / 653.75 Output Total 2205 / 2205 1000 / 1000 Balance 472 / 192 -155.25 / -155.25 -346.25 / -346.25 General: Alert, Oriented x3, Cooperative HEENT: Atraumatic, PERRLA, EOMI, Normocephalic Neck: Supple, No JVD, Negative Carotid Bruits Lungs: Clear to auscultation, Normal air movement Cardiovascular: Regular rate, No murmurs Abdomen: Bowel Sounds Present, Soft, Non Tender, - - Colostomy intact Extremities: No clubbing, No cyanosis, No edema Skin: - - Right groin wound from prior abscess with wound VAC in place. Bilateral ischium stage IV pressure ulcers, stage II sacral pressure ulcer. Right first and second toe necrosis. Foul smell noted from ischial ulcerations. Unstageable bilateral heel pressure ulcers. Musculoskeletal: No Tenderness to Palpation of Joints or Extremities Neurological: Cranial nerves II-XII grossly intact, Neuro grossly intact Psych/Mental Status: Flat Affect Microbiology Past 72 Hours 09/26/19 18:00 Wound - Aerobic & Anaerobic Swabs Gram Stain - Final 09/26/19 18:00 Wound - Aerobic & Anaerobic Swabs Wound Culture - Preliminary Meth. resistant Staph. aureus 09/27/19 06:58 Wound - Right Foot Gram Stain - Final Laboratory Results 09/28/19 06:14: WBC 6.7, RBC 3.37 L, Hgb 7.9 L, Hct 26.2 L, MCV 77.7 L, MCH 23.4 L, MCHC 30.2 L, RDW Std Deviation 51.0 H, RDW Coeff of Rosendo 17.9 H, Plt Count 359, MPV 7.8 09/28/19 06:14: Sodium 134 L, Potassium 4.3, Chloride 101, Carbon Dioxide 30.0, Anion Gap 3 L, BUN 18, Creatinine 0.44 L, Estim Creat Clear Calc 156.49, Est GFR (MDRD) Af Amer 247, Est GFR (MDRD) Non-Af 204, BUN/Creatinine Ratio 40.7 H, Glucose 99, Calcium 8.8 Current Medications Amlodipine Besylate (Norvasc) 5 mg PO DAILY [facility] Last Admin: 09/28/19 09:30 Dose: 5 mg Documented by: Ascorbic Acid (Vitamin C) 500 mg PO DAILY@0800 [facility] Last Admin: 09/28/19 07:47 Dose: 500 mg Documented by: Bupropion HCl (Wellbutrin Xl) 300 mg PO DAILY [facility] Last Admin: 09/28/19 09:31 Dose: 300 mg Documented by: Buspirone HCl (Buspar) 5 mg PO TID [facility] Last Admin: 09/28/19 06:09 Dose: 5 mg Documented by: Diphenhydramine HCl (Benadryl) 25 mg PO BID PRN PRN PRN Reason: ITCHING Last Admin: 09/28/19 09:31 Dose: 25 mg Documented by: Doxazosin Mesylate (Cardura) 2 mg PO QHS [facility] Last Admin: 09/27/19 21:41 Dose: 2 mg Documented by: Ezetimibe (Zetia) 10 mg PO DAILY [facility] Last Admin: 09/28/19 09:31 Dose: 10 mg Documented by: Emollient Ointment (Eucerin Intensive Repair) 1 applic TOPICAL 4X/DAY PRN PRN; Protocol PRN Reason: ITCHING Enoxaparin Sodium (Lovenox) 40 mg SC DAILY [facility] Last Admin: 09/28/19 09:30 Dose: 40 mg Documented by: Escitalopram Oxalate (Lexapro) 10 mg PO DAILY [facility] Last Admin: 09/28/19 09:29 Dose: 10 mg Documented by: Ferrous Gluconate (Ferrous Gluconate) 324 mg PO 1200,1700 [facility] Last Admin: 09/28/19 12:07 Dose: 324 mg Documented by: Fluticasone Propionate (Flonase Nasal [place]) 2 spray NASAL DAILY [facility] Last Admin: 09/28/19 09:29 Dose: 2 spray Documented by: Gabapentin (Neurontin) 600 mg PO TIDCM [facility] Last Admin: 09/28/19 12:07 Dose: 600 mg Documented by: Sodium Chloride () 250 mls @ 15 mls/hr IV .[id number] PRN PRN Reason: Saline Flush Last Infusion: 09/28/19 06:09 Dose: 0 mls/hr Documented by: Sodium Chloride () 250 mls @ 15 mls/hr IV .[id number] PRN PRN Reason: Additional IVPB Infusion Ampicillin Sodium/Sulbactam (Sodium 3 gm/ Sodium Chloride) 112 mls @ 150 mls/hr IV Q6 [facility] Last Admin: 09/28/19 12:06 Dose: 150 mls/hr Documented by: Vancomycin HCl (Vancomycin) 1,000 mg in 200 mls @ 200 mls/hr IV Q12H [facility] Last Infusion: 09/28/19 08:47 Dose: Infused Documented by: Metoprolol Tartrate (Lopressor (Beta Joo)) 50 mg PO BID [facility] Last Admin: 09/28/19 09:29 Dose: 50 mg Documented by: Morphine Sulfate () 4 mg IV Q3H PRN PRN PRN Reason: Pain Score 6-10/10 Last Admin: 09/28/19 09:31 Dose: 4 mg Documented by: Nutritional Formula (Lactose Free) (Ensure Enlive) 120 ml PO 4X/DAY [facility] Last Admin: 09/28/19 09:28 Dose: 120 ml Documented by: Nystatin (Mycostatin Powder) 1 applic TOPICAL TID [facility]; Protocol Last Admin: 09/28/19 06:09 Dose: 1 applicatio Documented by: Ondansetron HCl (Zofran) 4 mg IV Q8H PRN PRN PRN Reason: NAUSEA/VOMITING Oxycodone HCl (Oxyir) 10 mg PO Q4H PRN PRN PRN Reason: Pain Score 1-10/10 Last Admin: 09/28/19 12:15 Dose: 10 mg Documented by: Oxycodone HCl (Oxycontin) 20 mg PO BID [facility] Last Admin: 09/28/19 09:31 Dose: 20 mg Documented by: Pantoprazole Sodium (Protonix) 20 mg PO DAILY [facility] Last Admin: 09/28/19 09:31 Dose: 20 mg Documented by: Sodium Chloride () 10 - 40 ml IV UD PRN PRN Reason: SALINE FLUSH Last Admin: 09/28/19 09:33 Dose: 10 ml Documented by: Sodium Hypochlorite (Dakins Solution 0.25% (1/2 Strength)) 1 applic TOPICAL BID [facility]; Protocol Last Admin: 09/28/19 09:28 Dose: 1 applicatio Documented by: Tizanidine HCl (Zanaflex) 4 mg PO Q8H PRN PRN PRN Reason: SPASMS Last Admin: 09/27/19 07:06 Dose: 4 mg Documented by: Medical Necessity - Tobacco Use Smoking Status: Former smoker Assessment/Plan All Active Problems Toe necrosis (Acute) Gangrene of toe of right foot (Acute) Osteomyelitis of toe of right foot (Acute) Abscess of right groin (Acute) Hyponatremia (Resolved) MRSA bacteremia (Resolved) 1. Gangrenous right great distal toe and right second toe with possible right second toe osteomyelitis-podiatry consulted. Continue Unasyn and vancomycin. Vascular studies ordered which demonstrate PVD and moderately severe bilateral lower extremity arterial occlusive disease. Patient underwent bedside debridement of right second toe. Bone biopsy/tissue culture sent. Wound culture growing MRSA. Continue dressing changes per podiatry orders. Possible need for further surgical intervention. 2. Chronic right and left ischium stage IV pressure injuries, stage II sacral pressure injury, unstageable heel eschars-present on admission. Dr. Mesa consulted for further evaluation given appearance and foul smell. Prior debridement 08/13/2019. History of pelvic osteomyelitis and MRSA. Daily dressing changes with Dakins pending plastic surgery consult. 3. Recent right groin abscess status post I&D with wound VAC placement- Dr. Mesa consult as noted above. 4. History of anal cancer status post chemotherapy and radiation-colostomy in place. 5. Chronic COPD-no exacerbation. As needed albuterol aerosol. 6. Hypertension-stable, continue amlodipine, metoprolol. 7. Hyperlipidemia-continue statin. 8. Chronic anemia-stable, trend CBC. 9. History of hepatitis C 10. Anxiety/depression-continue Wellbutrin, BuSpar, Lexapro. 11. GERD-continue home omeprazole regimen. 12. Debility-currently at SNF. PT/OT. 13. PVD/moderately severe bilateral lower extremity arterial occlusive disease-Per vascular studies. Outpatient follow-up with vascular surgeon. DVT prophylaxis-Lovenox subcu. This patient was seen by AG Bowling under the supervision of Dr. Mcdonald.
[2019-09-28 15:16] VITALS: BP 129/51; PULSE 64; RESP 18; TEMP 36.9; O2SAT 93
[2019-09-28 20:02] VITALS: BP 114/62; PULSE 78; RESP 18; TEMP 36.9; O2SAT 94
[2019-09-28 22:20] VITALS: PULSE 78
[2019-09-28] MEDS: Doxazosin 1 MG Tablet 2 MG PO (22:20)
[2019-09-29] VITALS (9 sets, daily range): BP systolic 101–122; BP diastolic 44–64; PULSE 71–82; RESP 16–20; TEMP 36.8–37.3; O2SAT 94–97
--- NOTE | 2019-09-29 01:19 | PCM.RX.CS ---
Consult Pharmacy has been consulted to manage selected antiobiotic: Vancomycin Type of Consult: Follow-up Suspected Infection: Skin/Soft tissue, Osteomyelitis Labs: Sodium 134 mmol/L (136-145) L 09/28/19 06:14 Potassium 4.3 mmol/L (3.5-5.1) 09/28/19 06:14 Chloride 101 mmol/L (98-107) 09/28/19 06:14 Carbon Dioxide 30.0 mmol/L (21.0-32.0) 09/28/19 06:14 Anion Gap 3 (5-15) L 09/28/19 06:14 BUN 18 mg/dL (7-18) 09/28/19 06:14 Creatinine 0.44 mg/dL (0.70-1.30) L 09/28/19 06:14 Est GFR (MDRD) Af Amer 247 mL/min (>60) 09/28/19 06:14 Est GFR (MDRD) Non-Af 204 mL/min (>60) 09/28/19 06:14 BUN/Creatinine Ratio 40.7 RATIO (10-20) H 09/28/19 06:14 Glucose 99 mg/dL (74-106) 09/28/19 06:14 Vancomycin Trough 15.0 ug/mL (5.0-15.0) 09/28/19 19:35 Microbiology: Microbiology 09/27/19 06:58 Wound - Right Foot Gram Stain - Final 09/27/19 06:58 Wound - Right Foot Wound Culture - Preliminary Staphylococcus aureus 09/26/19 18:00 Wound - Aerobic & Anaerobic Swabs Gram Stain - Final 09/26/19 18:00 Wound - Aerobic & Anaerobic Swabs Wound Culture - Final Meth. resistant Staph. aureus Goal Trough: 15-20 mcg/mL Pharmacy Plan for Drug Dosing: Pharmacy Service will continue to monitor and adjust dosing as required. TROUGH 15.0 NO CHANGES Follow-Up Labs: Trough Vancomycin Labs to be done on [date and time ordered]: 10/01 @ 3831
[2019-09-29] MEDS: 0.9% Saline Lock 10 ML Syringe IV ×2 (04:50→20:46)
[2019-09-29] MEDS: Morphine 4 MG/ML Syringe IV ×5 (04:50→20:46)
[2019-09-29] MEDS: busPIRone 5 MG Tablet PO ×3 (05:05→23:28)
[2019-09-29] MEDS: Nystatin Powder 15gm Bottle 1 APPLIC TOPICAL ×2 (05:05→23:30)
[2019-09-29] MEDS: DiphenhydrAMINE 25 MG Capsule PO (05:07)
[2019-09-29 06:18] LABS: Hematocrit 27.1 % (40-54); Mean Corp Hgb Conc 29.5 g/dL (32-36); Mean Corpuscular Hgb 22.9 pg (27.0-32.0); Mean Corpuscular Volume 77.7 fL (80-94); Mean Platelet Vol. 7.9 fl (6.2-12.0); Platelet Count 369 K/mm3 (150-450); RBC Distribution Width CV 17.9 % (11.6-14.6); RBC Distribution Width SD 50.4 fl (35.1-43.9); Red Blood Count 3.49 M/mm3 (4.6-6.2); White Blood Count 7.4 K/mm3 (4.4-11.0)
[2019-09-29] MEDS: Vancomycin IV 1,000 MG/200 ML BAG 200 MG IV ×2 (08:45→20:46)
[2019-09-29] MEDS: Gabapentin 600 MG Tablet PO ×3 (09:58→17:01)
[2019-09-29] MEDS: Metoprolol Tartrate 50 MG Tablet PO ×2 (09:58→23:28)
[2019-09-29] MEDS: Pantoprazole Sodium 20 MG Tablet PO (09:58)
[2019-09-29] MEDS: Ezetimibe 10 MG Tablet PO (09:59)
[2019-09-29] MEDS: Enoxaparin 40 MG/0.4 ML Syringe SC (09:59)
[2019-09-29] MEDS: Fluticasone 0.05% 1 SPRAY NASAL.SRY 2 SPRAY NASAL (09:59)
[2019-09-29] MEDS: amLODIPine 5 MG Tablet PO (09:59)
[2019-09-29] MEDS: Ascorbic Acid 500 MG Tablet PO (09:59)
[2019-09-29] MEDS: Escitalopram Oxalate 10 MG Tablet PO (09:59)
--- NOTE | 2019-09-29 09:59 | PCM.PROGNOTE ---
Patient Problems: Active and Suspected Problems Toe necrosis (Acute) Gangrene of toe of right foot (Acute) Osteomyelitis of toe of right foot (Acute) Malnutrition (Suspected) Subjective: Patient seen and examined. Sitting on edge of bed working with therapy. States he has increased pain with movement. Denies other complaints. - Physical Exam Vitals/I&O's: Vital Signs Temp Pulse Resp BP Pulse Ox 98.8 F 82 16 122/46 H 96 09/29/19 02:36 09/29/19 04:42 09/29/19 04:42 09/29/19 04:42 09/29/19 07:25 Oxygen Flow Rate (L/min) 1 Oxygen Delivery Method Nasal Cannula Weight: 155 lb 15.985 oz Body Mass Index (BMI) 24.4 Intake and Output for Last 24 Hours 09/27/19 09/28/19 09/29/19 23:59 23:59 23:59 Intake Total 2049.75 / 2049.75 1077.75 / 1077.75 288.25 / 288.25 Output Total 2205 / 2205 1000 / 1700 1350 / 1350 Balance -155.25 / -155.25 77.75 / -622.25 -1061.75 / -1061.75 General: Alert, Oriented x3, Cooperative HEENT: Atraumatic, PERRLA, EOMI, Normocephalic Neck: Supple, No JVD, Negative Carotid Bruits Lungs: Clear to auscultation, Normal air movement Cardiovascular: Regular rate, No murmurs Abdomen: Bowel Sounds Present, Soft, Non Tender, Non-Distended, - - Colostomy intact Extremities: No clubbing, No cyanosis, No edema, Capillary Refill Less than 3 Seconds Skin: No rashes, - - Right groin wound from prior abscess with wound VAC in place. Bilateral ischium stage IV pressure ulcers, stage II sacral pressure ulcer. Right first and second toe necrosis. Foul smell noted from ischial ulcerations. Unstageable bilateral heel pressure ulcers. Musculoskeletal: No Tenderness to Palpation of Joints or Extremities Neurological: Cranial nerves II-XII grossly intact, Neuro grossly intact Psych/Mental Status: Flat Affect Microbiology Past 72 Hours 09/27/19 06:58 Wound - Right Foot Gram Stain - Final 09/27/19 06:58 Wound - Right Foot Wound Culture - Preliminary Staphylococcus aureus 09/27/19 06:58 Wound - Right Foot Anaerobic Culture - Final No anaerobic bacteria isolated. 09/26/19 18:00 Wound - Aerobic & Anaerobic Swabs Gram Stain - Final 09/26/19 18:00 Wound - Aerobic & Anaerobic Swabs Wound Culture - Final Meth. resistant Staph. aureus 09/26/19 18:00 Wound - Aerobic & Anaerobic Swabs Anaerobic Culture - Final No anaerobic bacteria isolated. Laboratory Results 09/28/19 19:35: Vancomycin Trough 15.0 09/29/19 05:45: WBC 7.4, RBC 3.49 L, Hgb 8.0 L, Hct 27.1 L, MCV 77.7 L, MCH 22.9 L, MCHC 29.5 L, RDW Std Deviation 50.4 H, RDW Coeff of Rosendo 17.9 H, Plt Count 369, MPV 7.9 Current Medications Amlodipine Besylate (Norvasc) 5 mg PO DAILY [facility] Last Admin: 09/28/19 09:30 Dose: 5 mg Documented by: Ascorbic Acid (Vitamin C) 500 mg PO DAILY@0800 [facility] Last Admin: 09/28/19 07:47 Dose: 500 mg Documented by: Bupropion HCl (Wellbutrin Xl) 300 mg PO DAILY [facility] Last Admin: 09/28/19 09:31 Dose: 300 mg Documented by: Buspirone HCl (Buspar) 5 mg PO TID [facility] Last Admin: 09/29/19 05:05 Dose: 5 mg Documented by: Diphenhydramine HCl (Benadryl) 25 mg PO BID PRN PRN PRN Reason: ITCHING Last Admin: 09/29/19 05:07 Dose: 25 mg Documented by: Doxazosin Mesylate (Cardura) 2 mg PO QHS [facility] Last Admin: 09/28/19 22:20 Dose: 2 mg Documented by: Ezetimibe (Zetia) 10 mg PO DAILY [facility] Last Admin: 09/28/19 09:31 Dose: 10 mg Documented by: Emollient Ointment (Eucerin Intensive Repair) 1 applic TOPICAL 4X/DAY PRN PRN; Protocol PRN Reason: ITCHING Enoxaparin Sodium (Lovenox) 40 mg SC DAILY [facility] Last Admin: 09/28/19 09:30 Dose: 40 mg Documented by: Escitalopram Oxalate (Lexapro) 10 mg PO DAILY [facility] Last Admin: 09/28/19 09:29 Dose: 10 mg Documented by: Ferrous Gluconate (Ferrous Gluconate) 324 mg PO 1200,1700 [facility] Last Admin: 09/28/19 17:16 Dose: 324 mg Documented by: Fluticasone Propionate (Flonase Nasal [place]) 2 spray NASAL DAILY [facility] Last Admin: 09/28/19 09:29 Dose: 2 spray Documented by: Gabapentin (Neurontin) 600 mg PO TIDCM [facility] Last Admin: 09/28/19 17:16 Dose: 600 mg Documented by: Sodium Chloride () 250 mls @ 15 mls/hr IV .[id number] PRN PRN Reason: Saline Flush Last Infusion: 09/29/19 05:51 Dose: 15 mls/hr Documented by: Sodium Chloride () 250 mls @ 15 mls/hr IV .[id number] PRN PRN Reason: Additional IVPB Infusion Ampicillin Sodium/Sulbactam (Sodium 3 gm/ Sodium Chloride) 112 mls @ 150 mls/hr IV Q6 [facility] Last Infusion: 09/29/19 05:51 Dose: Infused Documented by: Vancomycin HCl (Vancomycin) 1,000 mg in 200 mls @ 200 mls/hr IV Q12H [facility] Last Admin: 09/29/19 08:45 Dose: 200 mls/hr Documented by: Metoprolol Tartrate (Lopressor (Beta Joo)) 50 mg PO BID [facility] Last Admin: 09/28/19 22:20 Dose: 50 mg Documented by: Morphine Sulfate () 4 mg IV Q3H PRN PRN PRN Reason: Pain Score 6-10/10 Last Admin: 09/29/19 08:42 Dose: 4 mg Documented by: Nutritional Formula (Lactose Free) (Ensure Enlive) 120 ml PO 4X/DAY [facility] Last Admin: 09/28/19 22:20 Dose: 120 ml Documented by: Nystatin (Mycostatin Powder) 1 applic TOPICAL TID [facility]; Protocol Last Admin: 09/29/19 05:05 Dose: 1 applicatio Documented by: Ondansetron HCl (Zofran) 4 mg IV Q8H PRN PRN PRN Reason: NAUSEA/VOMITING Oxycodone HCl (Oxyir) 10 mg PO Q4H PRN PRN PRN Reason: Pain Score 1-10/10 Last Admin: 09/28/19 12:15 Dose: 10 mg Documented by: Oxycodone HCl (Oxycontin) 20 mg PO BID [facility] Last Admin: 09/28/19 22:20 Dose: 20 mg Documented by: Pantoprazole Sodium (Protonix) 20 mg PO DAILY [facility] Last Admin: 09/28/19 09:31 Dose: 20 mg Documented by: Sodium Chloride () 10 - 40 ml IV UD PRN PRN Reason: SALINE FLUSH Last Admin: 09/29/19 04:50 Dose: 10 ml Documented by: Sodium Hypochlorite (Dakins Solution 0.25% (1/2 Strength)) 1 applic TOPICAL BID [facility]; Protocol Last Admin: 09/28/19 22:21 Dose: 1 applicatio Documented by: Tizanidine HCl (Zanaflex) 4 mg PO Q8H PRN PRN PRN Reason: SPASMS Last Admin: 09/27/19 07:06 Dose: 4 mg Documented by: Medical Necessity - Tobacco Use Smoking Status: Former smoker Assessment/Plan All Active Problems Toe necrosis (Acute) Gangrene of toe of right foot (Acute) Osteomyelitis of toe of right foot (Acute) Abscess of right groin (Acute) Hyponatremia (Resolved) MRSA bacteremia (Resolved) 1. Gangrenous right great distal toe and right second toe with possible right second toe osteomyelitis-podiatry consulted. Continue Unasyn and vancomycin. Vascular studies ordered which demonstrate PVD and moderately severe bilateral lower extremity arterial occlusive disease. Patient underwent bedside debridement of right second toe. Bone biopsy/tissue culture sent. Wound culture growing MRSA. Continue dressing changes per podiatry orders. Possible need for further surgical intervention. 2. Chronic right and left ischium stage IV pressure injuries, stage II sacral pressure injury, unstageable heel eschars-present on admission. Dr. Mesa consulted for further evaluation given appearance and foul smell. Prior debridement 08/13/2019. History of pelvic osteomyelitis and MRSA. Daily dressing changes with Dakins pending plastic surgery consult. 3. Recent right groin abscess status post I&D with wound VAC placement- Dr. Mesa consult as noted above. 4. History of anal cancer status post chemotherapy and radiation-colostomy in place. 5. Chronic COPD-no exacerbation. As needed albuterol aerosol. 6. Hypertension-stable, continue amlodipine, metoprolol. 7. Hyperlipidemia-continue statin. 8. Chronic anemia-stable, trend CBC. 9. History of hepatitis C 10. Anxiety/depression-continue Wellbutrin, BuSpar, Lexapro. 11. GERD-continue home omeprazole regimen. 12. Debility-currently at SNF. PT/OT. 13. PVD/moderately severe bilateral lower extremity arterial occlusive disease-Per vascular studies. Outpatient follow-up with vascular surgeon. DVT prophylaxis-Lovenox subcu. This patient was seen by AG Bowling under the supervision of Dr. Mcdonald.
[2019-09-29] MEDS: buPROPion (XL) 300 MG TABLET.XL PO (10:01)
[2019-09-29] MEDS: DAKIN'S SOL HALF STRENGTH (=0.25%) 1 APPLIC TOPICAL ×2 (11:07→23:30)
[2019-09-29] MEDS: Polyethylene Glycol 3350 17 GM PACKET PO ×2 (11:09→23:30)
[2019-09-29] MEDS: Ferrous Gluconate 324 MG Tablet PO ×2 (12:10→17:01)
[2019-09-29] MEDS: oxyCODONE 5 MG Tablet 10 MG PO ×2 (12:14→18:47)
[2019-09-29] MEDS: tiZANidine HCl 2 MG Tablet 4 MG PO (20:46)
[2019-09-29] MEDS: Doxazosin 1 MG Tablet 2 MG PO (23:28)
[2019-09-30] VITALS (11 sets, daily range): BP systolic 115–152; BP diastolic 52–62; PULSE 68–83; RESP 16–18; TEMP 36.9–37.4; O2SAT 92–98
[2019-09-30] MEDS: oxyCODONE 5 MG Tablet 10 MG PO ×5 (00:27→20:41)
[2019-09-30 06:00] LABS: Hematocrit 25.7 % (40-54); Hemoglobin 7.7 g/dL (13.0-16.5); Mean Corpuscular Hgb 23.4 pg (27.0-32.0); Mean Corpuscular Volume 78.1 fL (80-94); Mean Platelet Vol. 7.6 fl (6.2-12.0); Platelet Count 326 K/mm3 (150-450); RBC Distribution Width CV 17.9 % (11.6-14.6); RBC Distribution Width SD 50.4 fl (35.1-43.9); Red Blood Count 3.29 M/mm3 (4.6-6.2); White Blood Count 6.7 K/mm3 (4.4-11.0)
[2019-09-30] MEDS: busPIRone 5 MG Tablet PO ×3 (06:17→21:52)
[2019-09-30 06:21] LABS: Anion Gap 4 (5-15); BUN 22 mg/dL (7-18); Calcium,Total 8.5 mg/dL (8.5-10.1); Chloride 97 mmol/L (98-107); Creatinine, Serum 0.61 mg/dL (0.70-1.30); EST Glomerular Filtration Rate 141 mL/min (>60); Est Glom Filt Rate - Afr Amer 170 mL/min (>60); Estimated Creatinine Clearance 112.88 ml/min; Glucose 101 mg/dL (74-106); Potassium 4.1 mmol/L (3.5-5.1); Sodium Level 133 mmol/L (136-145)
[2019-09-30] MEDS: Nystatin Powder 15gm Bottle 1 APPLIC TOPICAL ×3 (06:21→21:52)
[2019-09-30] MEDS: Ascorbic Acid 500 MG Tablet PO (08:23)
[2019-09-30] MEDS: Gabapentin 600 MG Tablet PO ×3 (08:23→16:45)
[2019-09-30] MEDS: Vancomycin IV 1,000 MG/200 ML BAG 200 MG IV ×2 (08:23→19:47)
[2019-09-30] MEDS: Metoprolol Tartrate 50 MG Tablet PO ×2 (10:00→21:52)
[2019-09-30] MEDS: Ezetimibe 10 MG Tablet PO (10:00)
[2019-09-30] MEDS: Polyethylene Glycol 3350 17 GM PACKET PO ×2 (10:00→21:52)
[2019-09-30] MEDS: Enoxaparin 40 MG/0.4 ML Syringe SC (10:00)
[2019-09-30] MEDS: Pantoprazole Sodium 20 MG Tablet PO (10:00)
[2019-09-30] MEDS: buPROPion (XL) 300 MG TABLET.XL PO (10:00)
[2019-09-30] MEDS: Escitalopram Oxalate 10 MG Tablet PO (10:00)
[2019-09-30] MEDS: Fluticasone 0.05% 1 SPRAY NASAL.SRY 2 SPRAY NASAL (10:01)
[2019-09-30] MEDS: amLODIPine 5 MG Tablet PO (10:01)
--- NOTE | 2019-09-30 10:35 | CASEMGMT ---
Addendum entered by Caroline Og 09/30/19 13:08: SHAHANA updated that pt will be going to surgery tomorrow with Dr. Mesa. SHAHANA placed a call to Tala at [facility], [place], operated by [facility] and updated her. Original Note: Social Work Note SHAHANA reviewed notes. Pt may have surgery again with Dr. Mesa, waiting for final decision. SHAHANA placed a call to Tala at [facility], [place], operated by [facility] and updated her. Tala states she did get authorization for pt to return. SHAHANA will update Tala once it is decided if pt will have surgery again. SHAHANA faxed updated clinicals to [facility]. Plan: Return to [facility], [place], operated by [facility] Caroline Og [employer], [employer]
--- NOTE | 2019-09-30 11:05 | PCM.PROGNOTE ---
<Celeste Churchill - Last Filed: 09/30/19 11:11> Patient Problems: Active and Suspected Problems Ulcer of right foot with necrosis of bone (Acute) Toe necrosis (Acute) Gangrene of toe of right foot (Acute) Osteomyelitis of toe of right foot (Acute) Malnutrition (Suspected) Subjective: Patient seen and examined. Denies complaints this morning. Denies significant pain. Denies fever, chills. - Physical Exam Vitals/I&O's: Vital Signs Temp Pulse Resp BP Pulse Ox 98.5 F 72 18 125/62 H 98 09/30/19 08:25 09/30/19 10:00 09/30/19 08:25 09/30/19 08:25 09/30/19 08:25 Oxygen Flow Rate (L/min) 1 Oxygen Delivery Method Room Air Weight: 155 lb 15.985 oz Body Mass Index (BMI) 24.4 Intake and Output for Last 24 Hours 09/28/19 09/29/19 09/30/19 23:59 23:59 23:59 Intake Total 1077.75 / 1077.75 2148.00 / 2648.00 1257 / 1257 Output Total 1000 / 1700 3250 / 3950 700 / 700 Balance 77.75 / -622.25 -1102.00 / -1302.00 557 / 557 General: Alert, Oriented x3, Cooperative HEENT: Atraumatic, PERRLA, EOMI, Normocephalic Neck: Supple, No JVD, Negative Carotid Bruits Lungs: Clear to auscultation, Normal air movement Cardiovascular: Regular rate, No murmurs Abdomen: Bowel Sounds Present, Soft, Non Tender, Non-Distended, - - Colostomy intact Extremities: No clubbing, No cyanosis, No edema, Capillary Refill Less than 3 Seconds Skin: - - Right groin wound from prior abscess with wound VAC in place. Bilateral ischium stage IV pressure ulcers, stage II sacral pressure ulcer. Right first and second toe necrosis. Foul smell noted from ischial ulcerations. Unstageable bilateral heel pressure ulcers. Musculoskeletal: No Tenderness to Palpation of Joints or Extremities Neurological: Cranial nerves II-XII grossly intact, Neuro grossly intact Psych/Mental Status: Flat Affect Microbiology Past 72 Hours 09/27/19 06:58 Wound - Right Foot Gram Stain - Final 09/27/19 06:58 Wound - Right Foot Wound Culture - Final Meth. resistant Staph. aureus 09/27/19 06:58 Wound - Right Foot Anaerobic Culture - Final No anaerobic bacteria isolated. 09/26/19 18:00 Wound - Aerobic & Anaerobic Swabs Gram Stain - Final 09/26/19 18:00 Wound - Aerobic & Anaerobic Swabs Wound Culture - Final Meth. resistant Staph. aureus 09/26/19 18:00 Wound - Aerobic & Anaerobic Swabs Anaerobic Culture - Final No anaerobic bacteria isolated. Laboratory Results 09/30/19 05:30: WBC 6.7, RBC 3.29 L, Hgb 7.7 L, Hct 25.7 L, MCV 78.1 L, MCH 23.4 L, MCHC 30.0 L, RDW Std Deviation 50.4 H, RDW Coeff of Rosendo 17.9 H, Plt Count 326, MPV 7.6 09/30/19 05:30: Sodium 133 L, Potassium 4.1, Chloride 97 L, Carbon Dioxide 32.0, Anion Gap 4 L, BUN 22 H, Creatinine 0.61 L, Estim Creat Clear Calc 112.88, Est GFR (MDRD) Af Amer 170, Est GFR (MDRD) Non-Af 141, BUN/Creatinine Ratio 36.0 H, Glucose 101, Calcium 8.5 Current Medications Amlodipine Besylate (Norvasc) 5 mg PO DAILY [facility] Last Admin: 09/30/19 10:01 Dose: 5 mg Documented by: Ascorbic Acid (Vitamin C) 500 mg PO DAILY@0800 [facility] Last Admin: 09/30/19 08:23 Dose: 500 mg Documented by: Bupropion HCl (Wellbutrin Xl) 300 mg PO DAILY [facility] Last Admin: 09/30/19 10:00 Dose: 300 mg Documented by: Buspirone HCl (Buspar) 5 mg PO TID [facility] Last Admin: 09/30/19 06:17 Dose: 5 mg Documented by: Diphenhydramine HCl (Benadryl) 25 mg PO BID PRN PRN PRN Reason: ITCHING Last Admin: 09/29/19 05:07 Dose: 25 mg Documented by: Doxazosin Mesylate (Cardura) 2 mg PO QHS [facility] Last Admin: 09/29/19 23:28 Dose: 2 mg Documented by: Ezetimibe (Zetia) 10 mg PO DAILY [facility] Last Admin: 09/30/19 10:00 Dose: 10 mg Documented by: Emollient Ointment (Eucerin Intensive Repair) 1 applic TOPICAL 4X/DAY PRN PRN; Protocol PRN Reason: ITCHING Enoxaparin Sodium (Lovenox) 40 mg SC DAILY [facility] Last Admin: 09/30/19 10:00 Dose: 40 mg Documented by: Escitalopram Oxalate (Lexapro) 10 mg PO DAILY [facility] Last Admin: 09/30/19 10:00 Dose: 10 mg Documented by: Ferrous Gluconate (Ferrous Gluconate) 324 mg PO 1200,1700 [facility] Last Admin: 09/29/19 17:01 Dose: 324 mg Documented by: Fluticasone Propionate (Flonase Nasal Kerrick) 2 spray NASAL DAILY [facility] Last Admin: 09/30/19 10:01 Dose: 2 spray Documented by: Gabapentin (Neurontin) 600 mg PO TIDCM [facility] Last Admin: 09/30/19 08:23 Dose: 600 mg Documented by: Sodium Chloride () 250 mls @ 15 mls/hr IV .[id number] PRN PRN Reason: Saline Flush Last Infusion: 09/30/19 08:23 Dose: 0 mls/hr Documented by: Sodium Chloride () 250 mls @ 15 mls/hr IV .[id number] PRN PRN Reason: Additional IVPB Infusion Ampicillin Sodium/Sulbactam (Sodium 3 gm/ Sodium Chloride) 112 mls @ 150 mls/hr IV Q6 [facility] Last Infusion: 09/30/19 07:23 Dose: Infused Documented by: Vancomycin HCl (Vancomycin) 1,000 mg in 200 mls @ 200 mls/hr IV Q12H [facility] Last Infusion: 09/30/19 09:56 Dose: Infused Documented by: Metoprolol Tartrate (Lopressor (Beta Joo)) 50 mg PO BID [facility] Last Admin: 09/30/19 10:00 Dose: 50 mg Documented by: Morphine Sulfate () 4 mg IV Q3H PRN PRN PRN Reason: Pain Score 6-10/10 Last Admin: 09/29/19 20:46 Dose: 4 mg Documented by: Nutritional Formula (Lactose Free) (Ensure Enlive) 120 ml PO 4X/DAY [facility] Last Admin: 09/30/19 10:00 Dose: 120 ml Documented by: Nystatin (Mycostatin Powder) 1 applic TOPICAL TID [facility]; Protocol Last Admin: 09/30/19 06:21 Dose: 1 applicatio Documented by: Ondansetron HCl (Zofran) 4 mg IV Q8H PRN PRN PRN Reason: NAUSEA/VOMITING Oxycodone HCl (Oxyir) 10 mg PO Q4H PRN PRN PRN Reason: Pain Score 1-10/10 Last Admin: 09/30/19 06:17 Dose: 10 mg Documented by: Oxycodone HCl (Oxycontin) 20 mg PO BID [facility] Last Admin: 09/30/19 10:00 Dose: 20 mg Documented by: Pantoprazole Sodium (Protonix) 20 mg PO DAILY [facility] Last Admin: 09/30/19 10:00 Dose: 20 mg Documented by: Polyethylene Glycol (Miralax) 17 gm PO BID [facility] Last Admin: 09/30/19 10:00 Dose: 17 gm Documented by: Sodium Chloride () 10 - 40 ml IV UD PRN PRN Reason: SALINE FLUSH Last Admin: 09/29/19 20:46 Dose: 10 ml Documented by: Sodium Hypochlorite (Dakins Solution 0.25% (1/2 Strength)) 1 applic TOPICAL BID [facility]; Protocol Last Admin: 09/29/19 23:30 Dose: 1 applicatio Documented by: Tizanidine HCl (Zanaflex) 4 mg PO Q8H PRN PRN PRN Reason: SPASMS Last Admin: 09/29/19 20:46 Dose: 4 mg Documented by: Medical Necessity - Tobacco Use Smoking Status: Former smoker Assessment/Plan All Active Problems Ulcer of right foot with necrosis of bone (Acute) Toe necrosis (Acute) Gangrene of toe of right foot (Acute) Osteomyelitis of toe of right foot (Acute) Abscess of right groin (Acute) Hyponatremia (Resolved) MRSA bacteremia (Resolved) 1. Gangrenous right great distal toe and right second toe with possible right second toe osteomyelitis-podiatry consulted. Continue Unasyn and vancomycin. Vascular studies ordered which demonstrate PVD and moderately severe bilateral lower extremity arterial occlusive disease. Patient underwent bedside debridement of right second toe. Bone biopsy/tissue culture sent. Wound culture growing MRSA. Continue dressing changes per podiatry orders. Possible need for further surgical intervention. Vascular surgery consulted. ID consulted. 2. Chronic right and left ischium stage IV pressure injuries, stage II sacral pressure injury, unstageable heel eschars-present on admission. Dr. Mesa consulted for further evaluation given appearance and foul smell. Prior debridement 08/13/2019. History of pelvic osteomyelitis and MRSA. Daily dressing changes with Dakins pending plastic surgery consult. 3. Recent right groin abscess status post I&D with wound VAC placement- Dr. Mesa consult as noted above. 4. History of anal cancer status post chemotherapy and radiation-colostomy in place. 5. Chronic COPD-no exacerbation. As needed albuterol aerosol. 6. Hypertension-stable, continue amlodipine, metoprolol. 7. Hyperlipidemia-continue statin. 8. Chronic anemia-stable, trend CBC. 9. History of hepatitis C 10. Anxiety/depression-continue Wellbutrin, BuSpar, Lexapro. 11. GERD-continue home omeprazole regimen. 12. Debility-currently at SNF. PT/OT. 13. PVD/moderately severe bilateral lower extremity arterial occlusive disease-Per vascular studies. Vascular surgery consult pending. DVT prophylaxis-Lovenox subcu. Discharge planning: Plan for return to SNF pending surgical debridement of wounds. Patient agreeable to palliative consult at discharge. This patient was seen by AG Bowling under the supervision of Dr. Garcia. <Sunitha Garcia - Last Filed: 09/30/19 12:12> - Physical Exam Vitals/I&O's: Vital Signs Temp Pulse Resp BP Pulse Ox 98.5 F 72 18 125/62 H 98 09/30/19 08:25 09/30/19 10:00 09/30/19 08:25 09/30/19 08:25 09/30/19 08:25 Oxygen Flow Rate (L/min) 1 Oxygen Delivery Method Room Air Weight: 70.76 kg Body Mass Index (BMI) 24.4 Intake and Output for Last 24 Hours 09/28/19 09/29/19 09/30/19 23:59 23:59 23:59 Intake Total 1077.75 / 1077.75 2148.00 / 2648.00 1257 / 1257 Output Total 1000 / 1700 3250 / 3950 700 / 700 Balance 77.75 / -622.25 -1102.00 / -1302.00 557 / 557 Microbiology Past 72 Hours 09/27/19 06:58 Wound - Right Foot Gram Stain - Final 09/27/19 06:58 Wound - Right Foot Wound Culture - Final Meth. resistant Staph. aureus 09/27/19 06:58 Wound - Right Foot Anaerobic Culture - Final No anaerobic bacteria isolated. 09/26/19 18:00 Wound - Aerobic & Anaerobic Swabs Gram Stain - Final 09/26/19 18:00 Wound - Aerobic & Anaerobic Swabs Wound Culture - Final Meth. resistant Staph. aureus 09/26/19 18:00 Wound - Aerobic & Anaerobic Swabs Anaerobic Culture - Final No anaerobic bacteria isolated. Laboratory Results 09/30/19 05:30: WBC 6.7, RBC 3.29 L, Hgb 7.7 L, Hct 25.7 L, MCV 78.1 L, MCH 23.4 L, MCHC 30.0 L, RDW Std Deviation 50.4 H, RDW Coeff of Rosendo 17.9 H, Plt Count 326, MPV 7.6 09/30/19 05:30: Sodium 133 L, Potassium 4.1, Chloride 97 L, Carbon Dioxide 32.0, Anion Gap 4 L, BUN 22 H, Creatinine 0.61 L, Estim Creat Clear Calc 112.88, Est GFR (MDRD) Af Amer 170, Est GFR (MDRD) Non-Af 141, BUN/Creatinine Ratio 36.0 H, Glucose 101, Calcium 8.5 Current Medications Amlodipine Besylate (Norvasc) 5 mg PO DAILY [facility] Last Admin: 09/30/19 10:01 Dose: 5 mg Documented by: Ascorbic Acid (Vitamin C) 500 mg PO DAILY@0800 [facility] Last Admin: 09/30/19 08:23 Dose: 500 mg Documented by: Bupropion HCl (Wellbutrin Xl) 300 mg PO DAILY [facility] Last Admin: 09/30/19 10:00 Dose: 300 mg Documented by: Buspirone HCl (Buspar) 5 mg PO TID [facility] Last Admin: 09/30/19 06:17 Dose: 5 mg Documented by: Diphenhydramine HCl (Benadryl) 25 mg PO BID PRN PRN PRN Reason: ITCHING Last Admin: 09/29/19 05:07 Dose: 25 mg Documented by: Doxazosin Mesylate (Cardura) 2 mg PO QHS [facility] Last Admin: 09/29/19 23:28 Dose: 2 mg Documented by: Ezetimibe (Zetia) 10 mg PO DAILY [facility] Last Admin: 09/30/19 10:00 Dose: 10 mg Documented by: Emollient Ointment (Eucerin Intensive Repair) 1 applic TOPICAL 4X/DAY PRN PRN; Protocol PRN Reason: ITCHING Enoxaparin Sodium (Lovenox) 40 mg SC DAILY [facility] Last Admin: 09/30/19 10:00 Dose: 40 mg Documented by: Escitalopram Oxalate (Lexapro) 10 mg PO DAILY [facility] Last Admin: 09/30/19 10:00 Dose: 10 mg Documented by: Ferrous Gluconate (Ferrous Gluconate) 324 mg PO 1200,1700 [facility] Last Admin: 09/30/19 11:24 Dose: 324 mg Documented by: Fluticasone Propionate (Flonase Nasal Kerrick) 2 spray NASAL DAILY [facility] Last Admin: 09/30/19 10:01 Dose: 2 spray Documented by: Gabapentin (Neurontin) 600 mg PO TIDCM [facility] Last Admin: 09/30/19 11:24 Dose: 600 mg Documented by: Heparin Sodium (Beef Lung) () 50 units IV UD PRN PRN Reason: PICC Line Heparin Flush Sodium Chloride () 250 mls @ 15 mls/hr IV .[id number] PRN PRN Reason: Saline Flush Last Infusion: 09/30/19 08:23 Dose: 0 mls/hr Documented by: Sodium Chloride () 250 mls @ 15 mls/hr IV .[id number] PRN PRN Reason: Additional IVPB Infusion Ampicillin Sodium/Sulbactam (Sodium 3 gm/ Sodium Chloride) 112 mls @ 150 mls/hr IV Q6 [facility] Last Admin: 09/30/19 11:24 Dose: 150 mls/hr Documented by: Vancomycin HCl (Vancomycin) 1,000 mg in 200 mls @ 200 mls/hr IV Q12H [facility] Last Infusion: 09/30/19 09:56 Dose: Infused Documented by: Metoprolol Tartrate (Lopressor (Beta Joo)) 50 mg PO BID [facility] Last Admin: 09/30/19 10:00 Dose: 50 mg Documented by: Morphine Sulfate () 4 mg IV Q3H PRN PRN PRN Reason: Pain Score 6-10/10 Last Admin: 09/29/19 20:46 Dose: 4 mg Documented by: Nutritional Formula (Lactose Free) (Ensure Enlive) 120 ml PO 4X/DAY [facility] Last Admin: 09/30/19 10:00 Dose: 120 ml Documented by: Nystatin (Mycostatin Powder) 1 applic TOPICAL TID [facility]; Protocol Last Admin: 09/30/19 06:21 Dose: 1 applicatio Documented by: Ondansetron HCl (Zofran) 4 mg IV Q8H PRN PRN PRN Reason: NAUSEA/VOMITING Oxycodone HCl (Oxyir) 10 mg PO Q4H PRN PRN PRN Reason: Pain Score 1-10/10 Last Admin: 09/30/19 06:17 Dose: 10 mg Documented by: Oxycodone HCl (Oxycontin) 20 mg PO BID [facility] Last Admin: 09/30/19 10:00 Dose: 20 mg Documented by: Pantoprazole Sodium (Protonix) 20 mg PO DAILY [facility] Last Admin: 09/30/19 10:00 Dose: 20 mg Documented by: Polyethylene Glycol (Miralax) 17 gm PO BID [facility] Last Admin: 09/30/19 10:00 Dose: 17 gm Documented by: Sodium Chloride () 10 - 40 ml IV UD PRN PRN Reason: SALINE FLUSH Last Admin: 09/29/19 20:46 Dose: 10 ml Documented by: Sodium Chloride () 10 - 40 ml IV UD PRN PRN Reason: Open End PICC Flush Sodium Chloride (0.9% Nacl (Sterile) Posiflush) 10 - 40 ml IV UD PRN PRN Reason: Port access or dressing change Last Admin: 09/30/19 11:24 Dose: 20 ml Documented by: Sodium Hypochlorite (Dakins Solution 0.25% (1/2 Strength)) 1 applic TOPICAL BID [facility]; Protocol Last Admin: 09/29/19 23:30 Dose: 1 applicatio Documented by: Tizanidine HCl (Zanaflex) 4 mg PO Q8H PRN PRN PRN Reason: SPASMS Last Admin: 09/29/19 20:46 Dose: 4 mg Documented by: Assessment/Plan This patient was seen in conjunction with Celeste Churchill NP. I have independently interviewed and examined the patient and reviewed pertinent historical, laboratory, and other data. Please refer to her note for patient's presentation, findings, and recommendations. Patient was seen and examined. Complains of mild pain in the right groin. Denied any fever or chills. Going for wound debridement tomorrow with Dr. Mesa. No acute events overnight. Vitals were reviewed -stable Physical Exam: Gen: Appears comfortable, not pale, not jaundiced, alert oriented x3 CVS:HS I +II, regular, no murmurs RESP: Diminished at lung bases, otherwise clinically clear to auscultation GI: BS present and normal, nontender, no palpable organs, colostomy bag has soft brown stools. EXT:No edema, bilateral goals dressing to both legs and right groin Labs reviewed: ASSESSMENT: 1. Acute gangrene of the right distal great, second toe with possible second toe osteomyelitis, 2. Chronic right and left ischial stage IV pressure injuries 3. Stage II sacral pressure injuries 4. Unchangeable heel eschars 5. Right groin wound status post I&D of right groin abscess 6. PAD, severe 7. Anal CA status post chemotherapy and radiation 8. COPD 9. Hypertension 10. Hyperlipidemia 11. Anemia, likely of chronic disease 12. Anxiety/depression 13. GERD Meds reviewed Plan: Continue on IV vancomycin and Unasyn Follow-up on vascular and plastic surgery Will check iron stores Will transfuse 1 unit of blood prior to surgery to optimise. Inpatient E&M: [id number] [facility] H[facility] L2
[2019-09-30] MEDS: 0.9 % NaCl (Sterile) Posiflush 10 mL IV (11:24)
[2019-09-30] MEDS: Ferrous Gluconate 324 MG Tablet PO ×2 (11:24→16:45)
[2019-09-30 13:59] LABS: Iron 25 ug/dL (65-175); Iron Binding Capacity,Total 207 ug/dL (250-450); PERCENT IRON SATURATION 12.1 % (15.0-55.0)
--- NOTE | 2019-09-30 14:38 | CHAPLAIN ---
Type of Pastoral Visit _x__ Initial Visit ___ Follow-up Visit ___ On-call Visit ___ General Patient Visit ___ Spiritual Assessment ___ Family Conference ___ Bereavement ___ Rapid Response ___ Code Blue ___ Other (describe below) Pastoral Care Referral From _x__ Patient ___ Family ___ Nurse ___ Physician ___ Elementary Supervisor ___ Hot Die Press Operator ___ Other (describe below) Sacrament/Intervention _x__ Active listening ___ Anointing ___ Druze _x__ Bereavement ___ Communion ___ Becka exploration ___ ___ Life review _x__ Prayer ___ Reconciliation ___ Sacrament of Sick _x__ Supportive presence ___ Wedding ___ Other (describe below) Pastoral Comments patient has been seen before in previous admissions; pt experiences pain; pt speaks of of his mother in March; pt has to deal with settlement of home etc as well as his personal health concerns; pt welcomes presence and prayer
--- NOTE | 2019-09-30 15:14 | PN.ID_ITS ---
Patient Problems: Active and Suspected Problems Toe necrosis (Acute) Gangrene of toe of right foot (Acute) Osteomyelitis of toe of right foot (Acute) Malnutrition (Suspected) Subjective: Feeling ok, OR tomorrow, no fever - Physical Exam Vitals/I&O's: Vital Signs Temp Pulse Resp BP Pulse Ox 98.4 F 82 16 139/62 H 96 09/30/19 14:06 09/30/19 14:06 09/30/19 14:06 09/30/19 14:06 09/30/19 14:06 Oxygen Flow Rate (L/min) 1 Oxygen Delivery Method Room Air Weight: 70.76 kg Body Mass Index (BMI) 24.4 Intake and Output for Last 24 Hours 09/28/19 09/29/19 09/30/19 23:59 23:59 23:59 Intake Total 1077.75 / 1077.75 2148.00 / 2648.00 1369 / 1369 Output Total 1000 / 1700 3250 / 3950 1400 / 1400 Balance 77.75 / -622.25 -1102.00 / -1302.00 -31 / -31 General: Alert, Cooperative, No apparent distress Lungs: Clear to auscultation, Normal air movement Cardiovascular: Regular rate, Regular Rhythm Abdomen: Soft, Non Tender, Non-Distended Skin: Ulcer/ Wound Microbiology Past 72 Hours 09/27/19 06:58 Wound - Right Foot Gram Stain - Final 09/27/19 06:58 Wound - Right Foot Wound Culture - Final Meth. resistant Staph. aureus 09/27/19 06:58 Wound - Right Foot Anaerobic Culture - Final No anaerobic bacteria isolated. 09/26/19 18:00 Wound - Aerobic & Anaerobic Swabs Gram Stain - Final 09/26/19 18:00 Wound - Aerobic & Anaerobic Swabs Wound Culture - Final Meth. resistant Staph. aureus 09/26/19 18:00 Wound - Aerobic & Anaerobic Swabs Anaerobic Culture - Final No anaerobic bacteria isolated. Laboratory Results 09/27/19 06:58: Acid Fast Stain SEE PATHOLOGY REPORT 09/30/19 05:30: WBC 6.7, RBC 3.29 L, Hgb 7.7 L, Hct 25.7 L, MCV 78.1 L, MCH 23.4 L, MCHC 30.0 L, RDW Std Deviation 50.4 H, RDW Coeff of Rosendo 17.9 H, Plt Count 326, MPV 7.6 09/30/19 05:30: Sodium 133 L, Potassium 4.1, Chloride 97 L, Carbon Dioxide 32.0, Anion Gap 4 L, BUN 22 H, Creatinine 0.61 L, Estim Creat Clear Calc 112.88, Est GFR (MDRD) Af Amer 170, Est GFR (MDRD) Non-Af 141, BUN/Creatinine Ratio 36.0 H, Glucose 101, Calcium 8.5 09/30/19 05:30: Iron 25 L, TIBC 207 L, Iron Saturation 12.1 L 09/30/19 13:05: Blood Type O POSITIVE, Antibody Screen NEGATIVE, Crossmatch See Detail Current Medications Amlodipine Besylate (Norvasc) 5 mg PO DAILY [facility] Last Admin: 09/30/19 10:01 Dose: 5 mg Documented by: Ascorbic Acid (Vitamin C) 500 mg PO DAILY@0800 [facility] Last Admin: 09/30/19 08:23 Dose: 500 mg Documented by: Bupropion HCl (Wellbutrin Xl) 300 mg PO DAILY [facility] Last Admin: 09/30/19 10:00 Dose: 300 mg Documented by: Buspirone HCl (Buspar) 5 mg PO TID [facility] Last Admin: 09/30/19 14:10 Dose: 5 mg Documented by: Diphenhydramine HCl (Benadryl) 25 mg PO BID PRN PRN PRN Reason: ITCHING Last Admin: 09/29/19 05:07 Dose: 25 mg Documented by: Doxazosin Mesylate (Cardura) 2 mg PO QHS [facility] Last Admin: 09/29/19 23:28 Dose: 2 mg Documented by: Ezetimibe (Zetia) 10 mg PO DAILY [facility] Last Admin: 09/30/19 10:00 Dose: 10 mg Documented by: Emollient Ointment (Eucerin Intensive Repair) 1 applic TOPICAL 4X/DAY PRN PRN; Protocol PRN Reason: ITCHING Enoxaparin Sodium (Lovenox) 40 mg SC DAILY [facility] Last Admin: 09/30/19 10:00 Dose: 40 mg Documented by: Escitalopram Oxalate (Lexapro) 10 mg PO DAILY [facility] Last Admin: 09/30/19 10:00 Dose: 10 mg Documented by: Ferrous Gluconate (Ferrous Gluconate) 324 mg PO 1200,1700 [facility] Last Admin: 09/30/19 11:24 Dose: 324 mg Documented by: Fluticasone Propionate (Flonase Nasal Ault) 2 spray NASAL DAILY [facility] Last Admin: 09/30/19 10:01 Dose: 2 spray Documented by: Gabapentin (Neurontin) 600 mg PO TIDCM [facility] Last Admin: 09/30/19 11:24 Dose: 600 mg Documented by: Heparin Sodium (Beef Lung) () 50 units IV UD PRN PRN Reason: PICC Line Heparin Flush Sodium Chloride () 250 mls @ 15 mls/hr IV .[id number] PRN PRN Reason: Saline Flush Last Infusion: 09/30/19 08:23 Dose: 0 mls/hr Documented by: Sodium Chloride () 250 mls @ 15 mls/hr IV .[id number] PRN PRN Reason: Additional IVPB Infusion Ampicillin Sodium/Sulbactam (Sodium 3 gm/ Sodium Chloride) 112 mls @ 150 mls/hr IV Q6 [facility] Last Infusion: 09/30/19 12:41 Dose: Infused Documented by: Vancomycin HCl (Vancomycin) 1,000 mg in 200 mls @ 200 mls/hr IV Q12H [facility] Last Infusion: 09/30/19 09:56 Dose: Infused Documented by: Metoprolol Tartrate (Lopressor (Beta Joo)) 50 mg PO BID [facility] Last Admin: 09/30/19 10:00 Dose: 50 mg Documented by: Morphine Sulfate () 4 mg IV Q3H PRN PRN PRN Reason: Pain Score 6-10/10 Last Admin: 09/29/19 20:46 Dose: 4 mg Documented by: Nutritional Formula (Lactose Free) (Ensure Enlive) 120 ml PO 4X/DAY [facility] Last Admin: 09/30/19 14:11 Dose: 120 ml Documented by: Nystatin (Mycostatin Powder) 1 applic TOPICAL TID [facility]; Protocol Last Admin: 09/30/19 14:11 Dose: 1 applicatio Documented by: Ondansetron HCl (Zofran) 4 mg IV Q8H PRN PRN PRN Reason: NAUSEA/VOMITING Oxycodone HCl (Oxyir) 10 mg PO Q4H PRN PRN PRN Reason: Pain Score 1-10/10 Last Admin: 09/30/19 12:49 Dose: 10 mg Documented by: Oxycodone HCl (Oxycontin) 20 mg PO BID [facility] Last Admin: 09/30/19 10:00 Dose: 20 mg Documented by: Pantoprazole Sodium (Protonix) 20 mg PO DAILY [facility] Last Admin: 09/30/19 10:00 Dose: 20 mg Documented by: Polyethylene Glycol (Miralax) 17 gm PO BID [facility] Last Admin: 09/30/19 10:00 Dose: 17 gm Documented by: Sodium Chloride () 10 - 40 ml IV UD PRN PRN Reason: SALINE FLUSH Last Admin: 09/29/19 20:46 Dose: 10 ml Documented by: Sodium Chloride () 10 - 40 ml IV UD PRN PRN Reason: Open End PICC Flush Sodium Chloride (0.9% Nacl (Sterile) Posiflush) 10 - 40 ml IV UD PRN PRN Reason: Port access or dressing change Last Admin: 09/30/19 11:24 Dose: 20 ml Documented by: Sodium Hypochlorite (Dakins Solution 0.25% (1/2 Strength)) 1 applic TOPICAL BID [facility]; Protocol Last Admin: 09/30/19 13:58 Dose: Not Given Documented by: Tizanidine HCl (Zanaflex) 4 mg PO Q8H PRN PRN PRN Reason: SPASMS Last Admin: 09/29/19 20:46 Dose: 4 mg Documented by: Medical Necessity - Tobacco Use Smoking Status: Former smoker Route of nutrition/ use of supplements: [] Nutritional Intake: [] IV Site: [] Walker Catheter: [] - Assessment/Plan Antibiotics: [] Assessment/Plan: [] Active and Suspected Problems Toe necrosis (Acute) Gangrene of toe of right foot (Acute) Osteomyelitis of toe of right foot (Acute) Malnutrition (Suspected) 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 On vanc/unasyn. Dr. Mesa and Dr. Palomares following. OR planned for tomorrow. Will follow
[2019-09-30] MEDS: Morphine 4 MG/ML Syringe IV (19:53)
[2019-09-30] MEDS: Doxazosin 1 MG Tablet 2 MG PO (21:52)
--- NOTE | 2019-09-30 22:45 | NURSING ---
Patient refused to turn at this time when offered. CHG completed, dressing changes completed, and new bed sheets applied.
--- NOTE | 2019-09-30 23:36 | PCM.PN.SRG ---
Patient Problems: Active and Suspected Problems Toe necrosis (Acute) Gangrene of toe of right foot (Acute) Osteomyelitis of toe of right foot (Acute) Malnutrition (Suspected) Subjective: Patient is known to me. He recently underwent surgery on 08/13/19 where he underwent excision recurrent right ischial pressure sore, Stage IV, with partial ostectomy for osteomyelitis and excision necrotic left ischial pressure sore, Stage IV, with partial ostectomy for osteomyelitis. He underwent additional surgery on 08/21/19 where he underwent Surgical preparation right inguinal area and right proximal thigh area with incision and drainage and excisional debridement submuscular abscess. Wound cultures from 08/13/19 showed Ecoli (ESBL), MRSA, Corynebacterium, Bacteroides fragilis, and Anaerobic cocci in the right ischial bone and MRSA, Corynebacterium, Bacteroides fragilis, and Anaerobic cocci in the left ischial bone and MRSA, Corynebacterium, Bacteroides fragilis, Anaerobic cocci, and Prevotella melaninogenica in the right ischial soft tissue and MRSA, Corynebacterium, and Bacteroides fragilis in the left ischial soft tissue. Wound cultures from 08/21/19 showed MRSA. He was sent to the [facility] on Vancomycin and Ertapenem. Recently he started developing gangrenous toes on the right and came to the ED for evaluation. He was admitted and continue his IV antibiotics with Vancomycin and Unasyn. I was asked to evaluate his multiple wounds to see if further operative debridement is necessary during this admission. PAST MEDICAL HISTORY COPD. Hepatitis C carrier. Anal carcinoma treated with chemotherapy and radiation therapy. Late effect radiation. MRSA. 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 PAST SURGICAL HISTORY Total hip arthroplasty - left. Total knee arthroplasty - Surgical preparation right gluteal/ischial area with excision radiation pressure sore abscess wound and partial ostectomy for osteomyelitis (52.5 cm2) - 12/30/16 Excision radiation pressure sore abscess ulcer right ischial area, Stage IV, with partial ostectomy for osteomyelitis - 06/08/17 Excision radiation pressure sore abscess ulcer right ischial area, Stage IV, with partial ostectomy for osteomyelitis - 10/17/17 Flap closure at [facility] Diverting colostomy - 09/15/18 Excision recurrent right ischial pressure sore, Stage IV, with partial ostectomy for osteomyelitis - 02/11/19 Excision recurrent right ischial pressure sore, Stage IV, with partial ostectomy for osteomyelitis and excision necrotic left ischial pressure sore, Stage IV, with partial ostectomy for osteomyelitis - 08/13/19 Surgical preparation right inguinal area and right proximal thigh area with incision and drainage and excisional debridement submuscular abscess - 08/21/19 ALLERGIES povidone-iodine [From Betadine] Allergy - Hives [id number]-Kpr Reductase Inhibitor Adverse Reaction - MESSED MY LIVER UP adhesive tape Allergy - Itching/rash HOME MEDICATIONS Norvasc. Vitamin C. Wellbutrin. Benadryl. Buspar. Vitamin D3. Cardura. Lexapro. Zetia. Ferrous Gluconate. Flonase. Neurontin. Motrin. Metoprolol. Myocostatin. MVI. Omeprazole. OxyIR. Zanaflex. Ellipta. Vancomycin. SOCIAL HISTORY Lives: With Family Smoking Status: Former smoker Tobacco Use: Non-smoker Alcohol: None Drugs: None FAMILY HISTORY Maternal - no pertinent history Paternal - no pertinent history REVIEW OF SYSTEMS Constitutional: Denies: Chills, Fever, Weight Change. HEENT: Denies: Head Aches, Sinus Congestion, Sinus Drainage. Cardiovascular: Denies: Chest Pain, Palpitations. Respiratory: Denies: Cough, Shortness of breath at rest, Sputum production. Gastrointestinal: Denies: Abdominal Pain, Nausea, Vomiting. Genitourinary: Denies: Dysuria. Musculoskeletal: Denies: Joint Pain, Joint Tenderness. Skin: Reports: Wounds - right buttocks., -. Denies: Rash. Neurological: Denies: Numbness, Tingling, Focal weakness. Psychiatric: Denies: Anxiety, Depression, Homicidal Ideations, Suicidal Ideations. 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 There is exposed bone. Some exudate present. Some fat necrosis present. Right side measures 7 x 4.5 x 3.8 cm. Left side measures 4.5 x 7.5 x 2.2 cm. There is a new onset sacral pressure sore that measures 2.5 x 1.7 x 0.2 cm. Some subcutaneous tissue present. Clinically a Stage III. Has a right inguinal and proximal thigh ulcer. Measures 12.5 x 5 x 2 cm. Some exudate present. Neurological: Cranial nerves II-XII grossly intact Psych/Mental Status: Normal Affect, Appropriate Vital Signs Temp Pulse Resp BP Pulse Ox 99.3 F H 81 18 126/53 H 92 09/30/19 21:00 09/30/19 21:52 09/30/19 21:00 09/30/19 21:00 09/30/19 21:00 Oxygen Flow Rate (L/min) 1 Oxygen Delivery Method Room Air Weight: 155 lb 15.985 oz Body Mass Index (BMI) 24.4 Intake and Output for Last 24 Hours 09/28/19 09/29/19 09/30/19 23:59 23:59 23:59 Intake Total 1077.75 / 1077.75 2148.00 / 2648.00 3094.75 / 3094.75 Output Total 1000 / 1700 3250 / 3950 2450 / 2450 Balance 77.75 / -622.25 -1102.00 / -1302.00 644.75 / 644.75 Microbiology Past 72 Hours 09/27/19 06:58 Wound - Right Foot Gram Stain - Final 09/27/19 06:58 Wound - Right Foot Wound Culture - Final Meth. resistant Staph. aureus 09/27/19 06:58 Wound - Right Foot Anaerobic Culture - Final No anaerobic bacteria isolated. 09/26/19 18:00 Wound - Aerobic & Anaerobic Swabs Gram Stain - Final 09/26/19 18:00 Wound - Aerobic & Anaerobic Swabs Wound Culture - Final Meth. resistant Staph. aureus 09/26/19 18:00 Wound - Aerobic & Anaerobic Swabs Anaerobic Culture - Final No anaerobic bacteria isolated. Laboratory Results 09/27/19 06:58: Acid Fast Stain SEE PATHOLOGY REPORT 09/30/19 05:30: WBC 6.7, RBC 3.29 L, Hgb 7.7 L, Hct 25.7 L, MCV 78.1 L, MCH 23.4 L, MCHC 30.0 L, RDW Std Deviation 50.4 H, RDW Coeff of Rosendo 17.9 H, Plt Count 326, MPV 7.6 09/30/19 05:30: Sodium 133 L, Potassium 4.1, Chloride 97 L, Carbon Dioxide 32.0, Anion Gap 4 L, BUN 22 H, Creatinine 0.61 L, Estim Creat Clear Calc 112.88, Est GFR (MDRD) Af Amer 170, Est GFR (MDRD) Non-Af 141, BUN/Creatinine Ratio 36.0 H, Glucose 101, Calcium 8.5 09/30/19 05:30: Iron 25 L, TIBC 207 L, Iron Saturation 12.1 L 09/30/19 13:05: Blood Type O POSITIVE, Antibody Screen NEGATIVE, Crossmatch See Detail Current Medications Amlodipine Besylate (Norvasc) 5 mg PO DAILY [facility] Last Admin: 09/30/19 10:01 Dose: 5 mg Documented by: Ascorbic Acid (Vitamin C) 500 mg PO DAILY@0800 [facility] Last Admin: 09/30/19 08:23 Dose: 500 mg Documented by: Bupropion HCl (Wellbutrin Xl) 300 mg PO DAILY [facility] Last Admin: 09/30/19 10:00 Dose: 300 mg Documented by: Buspirone HCl (Buspar) 5 mg PO TID [facility] Last Admin: 09/30/19 21:52 Dose: 5 mg Documented by: Diphenhydramine HCl (Benadryl) 25 mg PO BID PRN PRN PRN Reason: ITCHING Last Admin: 09/29/19 05:07 Dose: 25 mg Documented by: Doxazosin Mesylate (Cardura) 2 mg PO QHS [facility] Last Admin: 09/30/19 21:52 Dose: 2 mg Documented by: Ezetimibe (Zetia) 10 mg PO DAILY [facility] Last Admin: 09/30/19 10:00 Dose: 10 mg Documented by: Emollient Ointment (Eucerin Intensive Repair) 1 applic TOPICAL 4X/DAY PRN PRN; Protocol PRN Reason: ITCHING Enoxaparin Sodium (Lovenox) 40 mg SC DAILY [facility] Last Admin: 09/30/19 10:00 Dose: 40 mg Documented by: Escitalopram Oxalate (Lexapro) 10 mg PO DAILY [facility] Last Admin: 09/30/19 10:00 Dose: 10 mg Documented by: Ferrous Gluconate (Ferrous Gluconate) 324 mg PO 1200,1700 [facility] Last Admin: 09/30/19 16:45 Dose: 324 mg Documented by: Fluticasone Propionate (Flonase Nasal [place]) 2 spray NASAL DAILY [facility] Last Admin: 09/30/19 10:01 Dose: 2 spray Documented by: Gabapentin (Neurontin) 600 mg PO TIDCM [facility] Last Admin: 09/30/19 16:45 Dose: 600 mg Documented by: Heparin Sodium (Beef Lung) () 50 units IV UD PRN PRN Reason: PICC Line Heparin Flush Sodium Chloride () 250 mls @ 15 mls/hr IV .[id number] PRN PRN Reason: Saline Flush Last Infusion: 09/30/19 21:00 Dose: 15 mls/hr Documented by: Sodium Chloride () 250 mls @ 15 mls/hr IV .[id number] PRN PRN Reason: Additional IVPB Infusion Ampicillin Sodium/Sulbactam (Sodium 3 gm/ Sodium Chloride) 112 mls @ 150 mls/hr IV Q6 [facility] Last Infusion: 09/30/19 18:52 Dose: Infused Documented by: Vancomycin HCl (Vancomycin) 1,000 mg in 200 mls @ 200 mls/hr IV Q12H [facility] Last Infusion: 09/30/19 20:59 Dose: Infused Documented by: Metoprolol Tartrate (Lopressor (Beta Joo)) 50 mg PO BID [facility] Last Admin: 09/30/19 21:52 Dose: 50 mg Documented by: Morphine Sulfate () 4 mg IV Q3H PRN PRN PRN Reason: Pain Score 6-10/10 Last Admin: 09/30/19 19:53 Dose: 4 mg Documented by: Nutritional Formula (Lactose Free) (Ensure Enlive) 120 ml PO 4X/DAY [facility] Last Admin: 09/30/19 21:52 Dose: 120 ml Documented by: Nystatin (Mycostatin Powder) 1 applic TOPICAL TID [facility]; Protocol Last Admin: 09/30/19 21:52 Dose: 1 applicatio Documented by: Ondansetron HCl (Zofran) 4 mg IV Q8H PRN PRN PRN Reason: NAUSEA/VOMITING Oxycodone HCl (Oxyir) 10 mg PO Q4H PRN PRN PRN Reason: Pain Score 1-10/10 Last Admin: 09/30/19 20:41 Dose: 10 mg Documented by: Oxycodone HCl (Oxycontin) 20 mg PO BID [facility] Last Admin: 09/30/19 21:52 Dose: 20 mg Documented by: Pantoprazole Sodium (Protonix) 20 mg PO DAILY [facility] Last Admin: 09/30/19 10:00 Dose: 20 mg Documented by: Polyethylene Glycol (Miralax) 17 gm PO BID [facility] Last Admin: 09/30/19 21:52 Dose: 17 gm Documented by: Sodium Chloride () 10 - 40 ml IV UD PRN PRN Reason: SALINE FLUSH Last Admin: 09/29/19 20:46 Dose: 10 ml Documented by: Sodium Chloride () 10 - 40 ml IV UD PRN PRN Reason: Open End PICC Flush Sodium Chloride (0.9% Nacl (Sterile) Posiflush) 10 - 40 ml IV UD PRN PRN Reason: Port access or dressing change Last Admin: 09/30/19 11:24 Dose: 20 ml Documented by: Sodium Hypochlorite (Dakins Solution 0.25% (1/2 Strength)) 1 applic TOPICAL BID [facility]; Protocol Last Admin: 09/30/19 21:56 Dose: Not Given Documented by: Tizanidine HCl (Zanaflex) 4 mg PO Q8H PRN PRN PRN Reason: SPASMS Last Admin: 09/29/19 20:46 Dose: 4 mg Documented by: Medical Necessity - Tobacco Use Smoking Status: Former smoker Assessment/Plan All Active Problems Ulcer of right foot with necrosis of bone (Acute) Toe necrosis (Acute) Gangrene of toe of right foot (Acute) Osteomyelitis of toe of right foot (Acute) Abscess of right groin (Acute) Hyponatremia (Resolved) MRSA bacteremia (Resolved) 1. Right inguinal and proximal thigh abscess ulcer. 2. Recurrent right ischial pressure sore, Stage IV. 3. 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 4. Osteomyelitis. 5. MRSA. 6. Left ischial pressure sore, Stage IV. 7. History of anal CA treated with chemotherapy and radiation therapy. 8. Anemia of chronic disease. 9. Sacral pressure sore, Stage III. Continue Dakin's dressing changes to the ulcers. Continue Vancomycin and Unasyn for his previous cultures last month. Another wound culture was obtained this admission. Suspect MRSA. He needs to improve his nutrition if he has any chance at healing these multiple ulcers. Last month his Prealbumin was 8.4. Encourage nutritional supplementation with protein to help the healing process. Podiatry has been consulted to evaluate his black toes on the right. A noninvasive arterial doppler study has been scheduled to look for vascular stenoses. Had a discussion with the patient about these chronic ulcers. Since his mother , he has gotten more depressed and is sitting more which has led to a new onset left ischial pressure sore. With his poor nutrition and his depression, realistically these ulcers will not heal even with complex myocutaneous flaps in the future. I think he would be a good candidate for Palliative Care at this point. He states he will start the Palliative Care process once he returns to the [facility]. So will take him to surgery tomorrow to further debride his pressure sores and send soft tissue and bone to Pathology and Microbiology. Positive cultures may necessitate antibiotic modification. Will not debride the right inguinal and proximal thigh ulcer at this time. The femoral vasculature is located at the depth of the ulcer surrounded by scar tissue. If this ulcer were to worsen, then he would need to be evaluated at a tertiary center with Vascular Surgery assistance because of the probability of a vascular bypass that may be needed after a more aggressive operative debridement. His Hgb is 7.7. Will need PRBC preoperatively. Patient was informed of the risks and complications of the procedure including alternatives to surgery. These were discussed with the patient personally. Patient voices understanding and wishes to proceed. After discharge, [facility]up [facility]. Procedure Criteria Procedure Type: Elective COVID Risk Discussion: The surgeon/proceduralist and patient have discussed in detail the risk of exposure to and/or potential harm posed by the COVID-19 virus with having a surgery/procedure at this time versus the risk of delaying the surgery/procedure. It is not possible to know either the risk of delaying the surgery or procedure or chance of getting an infection with perfect accuracy, but a joint decision was made between the patient and the surgeon/proceduralist to proceed at this time with the scheduled surgery/procedure as indicated on the consent form.
[2019-09-30] MEDS: 0.9% Saline Lock 10 ML Syringe IV (23:53)
[2019-10-01] VITALS (15 sets, daily range): BP systolic 96–128; BP diastolic 46–95; PULSE 65–77; RESP 16–18; TEMP 36.1–37.1; O2SAT 92–98; BMI 24.4; BMI 70.8
--- NOTE | 2019-10-01 05:00 | EKG12_ITS ---
Test Reason : PRE-OP Blood Pressure : / mmHG Vent. Rate : 070 BPM Atrial Rate : 070 BPM P-R Int : 140 ms QRS Dur : 098 ms QT Int : 402 ms P-R-T Axes : 064 045 058 degrees QTc Int : 434 ms Normal sinus rhythm Normal ECG When compared with ECG of 13-AUG-2019 05:34, T wave amplitude has increased in Lateral leads Confirmed by PAGE SARABIA, ABILIO ([id number]), editor sound MALLIKA DOE ([id number]) on 10/09/2019 1:04:42 PM Referred By: AMEE Confirmed By:ABILIO ABEL MD
[2019-10-01] MEDS: oxyCODONE 5 MG Tablet 10 MG PO ×3 (05:10→22:38)
[2019-10-01] MEDS: DiphenhydrAMINE 25 MG Capsule PO ×2 (05:10→15:18)
[2019-10-01] MEDS: busPIRone 5 MG Tablet PO ×3 (05:10→21:05)
[2019-10-01] MEDS: Nystatin Powder 15gm Bottle 1 APPLIC TOPICAL ×3 (05:11→21:05)
[2019-10-01 05:46] LABS: Hematocrit 28.9 % (40-54); Hemoglobin 8.8 g/dL (13.0-16.5); Mean Corp Hgb Conc 30.4 g/dL (32-36); Mean Corpuscular Hgb 24.1 pg (27.0-32.0); Mean Corpuscular Volume 79.2 fL (80-94); Mean Platelet Vol. 7.7 fl (6.2-12.0); Platelet Count 333 K/mm3 (150-450); RBC Distribution Width CV 18.6 % (11.6-14.6); Red Blood Count 3.65 M/mm3 (4.6-6.2); White Blood Count 6.8 K/mm3 (4.4-11.0)
[2019-10-01 06:30] LABS: AST(SGOT) 21 U/L (15-37); Alanine Aminotransfer ALT/SGPT 25 U/L (16-61); Albumin, Serum 2.4 g/dL (3.2-5.0); Alkaline Phosphatase 131 U/L (45-117); Anion Gap 5 (5-15); BUN 18 mg/dL (7-18); BUN/Creat Ratio 30.5 RATIO (10-20); Bilirubin, Direct 0.11 mg/dL (0.00-0.30); Calcium,Total 8.4 mg/dL (8.5-10.1); Chloride 97 mmol/L (98-107); Creatinine, Serum 0.59 mg/dL (0.70-1.30); EST Glomerular Filtration Rate 146 mL/min (>60); Est Glom Filt Rate - Afr Amer 177 mL/min (>60); Globulin 4.5 g/dL (2.2-4.2); Glucose 128 mg/dL (74-106); Potassium 4.3 mmol/L (3.5-5.1); Protein, Total 6.9 g/dL (6.4-8.2); Sodium Level 134 mmol/L (136-145)
[2019-10-01] MEDS: Vancomycin IV 1,000 MG/200 ML BAG 200 MG IV ×2 (08:06→20:56)
[2019-10-01 08:32] LABS: Magnesium 1.9 mg/dL (1.6-2.6)
[2019-10-01] MEDS: Lactated Ringers 1,000 ML 100 ML IV (09:53)
--- NOTE | 2019-10-01 09:55 | CASEMGMT ---
Social Work Note Pt is getting surgery today, no discharge. SW will continue to update [facility]. Plan: Return to [facility] Caroline Og TENANT RELATIONS COORDINATOR, JEWELER APPRENTICE
--- NOTE | 2019-10-01 11:30 | OP.PCM_ITS ---
Report of Operation Date of Procedure: 10/01/19 Pre-Operative Diagnosis: 1. Recurrent right ischial pressure sore, Stage IV. 2. 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 3. Osteomyelitis. 4. MRSA. 5. Left ischial pressure sore, Stage IV. 6. Sacral pressure sore, Stage III. 7. History of anal CA treated with chemotherapy and radiation therapy. 8. Anemia of chronic disease. Post-Operative Diagnosis: 1. Recurrent right ischial pressure sore, Stage IV. 2. 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 3. Osteomyelitis. 4. MRSA. 5. Left ischial pressure sore, Stage IV. 6. Sacral pressure sore, Stage IV. 7. History of anal CA treated with chemotherapy and radiation therapy. 8. Anemia of chronic disease. Surgery/Procedure Performed:: 1. Excision recurrent right ischial pressure so re, Stage IV, with partial ostectomy for osteomyelitis. 2. Excision left ischial pressure sore, Stage IV, with partial ostectomy for osteomyelitis. 3. Excision sacral pressure sore, Stage IV, with partial ostectomy for osteomyelitis. Description of Surgical Findings:: Patient is known to me. He recently underwent surgery on 08/13/19 where he underwent excision recurrent right ischial pressure sore, Stage IV, with partial ostectomy for osteomyelitis and excision necrotic left ischial pressure sore, Stage IV, with partial ostectomy for osteomyelitis. He underwent additional surgery on 08/21/19 where he underwent Surgical preparation right inguinal area and right proximal thigh area with incision and drainage and excisional debridement submuscular abscess. Wound cultures from 08/13/19 showed Ecoli (ESBL), MRSA, Corynebacterium, Bacteroides fragilis, and Anaerobic cocci in the right ischial bone and MRSA, Corynebacterium, Bacteroides fragilis, and Anaerobic cocci in the left ischial bone and MRSA, Corynebacterium, Bacteroides fragilis, Anaerobic cocci, and Prevotella melaninogenica in the right ischial soft tissue and MRSA, Corynebacterium, and Bacteroides fragilis in the left ischial soft tissue. Wound cultures from 08/21/19 showed MRSA. He was sent to the [facility] on Vancomycin and Ertapenem. Recently he started developing gangrenous toes on the right and came to the ED for evaluation. He was admitted and continue his IV antibiotics with Vancomycin and Unasyn. I was asked to evaluate his multiple wounds to see if further operative debridement is necessary during this admission. It was also noted he has a new onset sacral pressure sore that is at least a Stage III. I anticipate after excision it will be Stage IV. Patient was informed of the risks and complications of the procedure including alternatives to surgery. These were discussed with the patient personally. Patient voices understanding and wishes to proceed. Size of defect right ischial area - 9 x 6.5 x 3 cm. Size of defect left ischial area - 8 x 6 x 2 cm. Size of defect sacral area - 5 x 4.5 x 1 cm. [employer]: Jayden Radford. Type of Anesthesia:: General Specimen's removed: 1. Right ischial pressure sore soft tissue to Pathology and Microbiology. 2. Right ischial pressure sore bone to Pathology and Microbiology. 3. Left ischial pressure sore soft tissue to Pathology and Microbiology. 4. Left ischial pressure sore bone to Pathology and Microbiology. 5. Sacral pressure sore soft tissue to Pathology and Microbiology. 6. Sacral pressure sore bone to Pathology and Microbiology. Drains: None. Estimated Blood Loss (mL): 150 ml. Description of Procedure: Patient was taken to OR in supine position and placed under general anesthesia. He was then placed in the prone position and his ischial areas were prepped and draped in the usual fashion. SCD's were placed for DVT prophylaxis. Perioperative antibiotics were given intravenously. For the procedure, I wore an N95 mask and proper eye protection. I excised the radiation pressure sore abscess ulcer right ischial area in a circular fashion down through the subcutaneous tissue and muscle which was indurated with fat necrosis and late effect radiation damage. No pus was seen. The indurated ulcer and abnormal bursal scar tissue were excised down to the bone. He has history of osteomyelitis, and I suspect persistent osteomyelitis. There was still a considerable amount of chronic radiated tissue damage deeply. After excising this radiated pressure sore ulcer down to the base, it had involved the ischial bone. The ischial bone was irregular in shape which can be consistent with osteomyelitis but also can be related to his radiation. A partial ostectomy was performed with an osteotome and a mallet in a tangential direction. The bony edges were smoothed out with a rasp. I also used rongeurs. After the partial ostectomy, the bone showed good bleeding. Hemostasis was obtained with electrocautery. The wound was irrigated with saline. The size of the defect after excision was 9 x 6.5 x 3 cm. The wound was packed with Mepitel nonadherent dressing followed by Kerlix gauze and saline followed by dry Kerlix gauze and ABD pads and tape for a compression dressing. Half the soft tissue and half the bone was sent to Pathology for analysis to rule out carcinoma and to evaluate for osteomyelitis. Half the soft tissue and half the bone was sent to Microbiology for culture. A positive culture may necessitate antibiotic modification. He is being treated perioperatively with Vancomycin and Zosyn. I then excised the pressure sore ulcer left ischial area in a circular fashion down through the subcutaneous tissue and muscle which was indurated with fat necrosis. No pus was seen. The indurated ulcer and abnormal bursal scar tissue were excised down to the bone. The ischial bone was irregular in shape which can be consistent with osteomyelitis. A partial ostectomy was performed with an osteotome and a mallet in a tangential direction. The bony edges were smoothed out with a rasp. I also used rongeurs. After the partial ostectomy, the bone showed good bleeding. Hemostasis was obtained with electrocautery. The wound was irrigated with saline. The size of the defect after excision was 8 x 6 x 2 cm. The wound was packed with Mepitel nonadherent dressing followed by Kerlix gauze and saline followed by dry Kerlix gauze and ABD pads and tape for a compression dressing. Half the soft tissue and half the bone was sent to Pathology for analysis to rule out carcinoma and to evaluate for osteomyelitis. Half the soft tissue and half the bone was sent to Microbiology for culture. A positive culture may necessitate antibiotic modification. He has a new onset sacral pressure sore with central necrosis. I anticipated the pressure sore to be at least a Stage III preoperatively. I excised the pressure sore ulcer sacral area in a circular fashion down through the subcutaneous tissue and muscle which was indurated with fat necrosis. No pus was seen. The indurated ulcer and abnormal bursal scar tissue were excised down to the bone. The sacral bone was irregular in shape which can be consistent with osteomyelitis. A partial ostectomy was performed with an osteotome and a mallet in a tangential direction. The bony edges were smoothed out with a rasp. I also used rongeurs. After the partial ostectomy, the bone showed good bleeding. Hemostasis was obtained with electrocautery. The wound was irrigated with saline. The size of the defect after excision was 5 x 4.5 x 1 cm. The wound was packed with Mepitel nonadherent dressing followed by Kerlix gauze and saline followed by dry Kerlix gauze and ABD pads and tape for a compression dressing. Half the soft tissue and half the bone was sent to Pathology for analysis to rule out carcinoma and to evaluate for osteomyelitis. Half the soft tissue and half the bone was sent to Microbiology for culture. A positive culture may necessitate antibiotic modification. For the three pressure sore excisions today, I placed bone wax over the exposed bone to help minimize bony bleeding postoperatively. Because the bone is involved, may plan on wound closure with a fasciocutaneous flap since a skin graft would not be indicated as long as the wound is not too deep. I don't want to detach the hamstrings muscle flap since the patient is ambulatory. Other muscle flap options include the vastus lateralis muscle flap and the gracilis muscle flap. The sacral pressure sore can be closed with a gluteus fasciocutaneous flap. Patient tolerated the procedure well and will be sent to PACU in satisfactory condition. He will be sent back upstairs for continued postop care. Tomorrow will proceed with Dakin's dressing changes. I anticipate the need for additional IV antibiotics and the use of a PICC line. A new PICC line will need to be placed as the PICC line was inadvertently removed when he was turned over from prone to the supine position at the end of the procedure. He will need to go to an ECF for both the IV antibiotics and the wound care. Because he is ambulatory, we don't have a lot of choices for flaps short of using the microscope for free tissue transfer. Such procedures would need to be done at a tertiary center. Grafts/Implants Used: None. - Complications None. - Admit VTE Documentation VTE Present on Admission: No VTE Mechan Device Prophylaxis: SCD's VTE Pharm Prophylaxis ordered?: Yes Surgery Charges CPT - 38367 -58 ICD-10 - L89.314, M86.651, T66.xxxS, L59.8, A49.02, Z85.048 [id number] L89.324, M86.651, A49.02, Z85.048 23227-48 L89.154, M86.651, A49.02, Z85.048
--- NOTE | 2019-10-01 12:10 | PRES_PTH ---
PATIENT: BRYN TROTTER LOC: MS3 U#:[id number] AGE/SX: 64/M ROOM: [facility] [place] RE09/26/[address]: Dr. Sunitha Garcia MD : [id number] BED: 1 DIS: 10/03/2019 SPEC #: [id number] RECD: 10/01/19 12:18 STATUS: JUAN DIEGO RE #: [id number] BURT: 10/01/19 12:[address]: Venkat Mesa DEPT: SURGICAL PATHOLOGY RECD BY: Wesley Diana ENTERED: 10/01/19 12:46 SP TYPE: PRESS SORE OTHR DR: MD Dr. Eddie Dow MD Dr. Chitra Ganta, MD Dr. Jeanna Fascione, FOXM DO Dr. Javier Stephenson MD Tissues: A - Sacrum, NOS B - Sacrum, NOS C - Ischium, NOS D - Ischium, NOS E - Ischium, NOS F - Ischium, NOS Procedures: Decalcification bone/plaque Surgery Specimen Level IV HEADER OPERATION: Excision bilateral ischial pressure sores PRE-OP DIAGNOSIS: Recurrent right ischial pressure sore stage IV; left ischial pressure sore stage IV TISSUE SUBMITTED: A - Sacral pressure sore bone, B - Sacral pressure sore tissue, C - Left ischial pressure sore bone, D - Left ischial pressure sore tissue, E - Right ischial pressure sore bone, F - Right ischial pressure sore tissue MICROSCOPIC DIAGNOSIS A. Sacral pressure ulcer bone, biopsy: Mild reactive change. No evidence of osteomyelitis. B. Skin and soft tissue of sacral pressure sore, biopsy: Ulceration with associated acute and chronic inflammation and granulation. C. Left ischial pressure sore bone, biopsy: Acute osteomyelitis. D. Left ischial pressure sore tissue, biopsy: Skin and soft tissue with ulceration and associated acute and chronic inflammation and granulation. E. Right ischial pressure sore bone, biopsy: Chronic reparative and reactive change. No evidence of acute osteomyelitis. F. Right ischial pressure sore tissue, biopsy: Skin and soft tissue with ulceration and associated acute and chronic inflammation and granulation. AM:isi 10/04/19 MICROSCOPIC DESCRIPTION Slides are reviewed. GROSS DESCRIPTION A - Received in fixative is one container labeled with the patient's name and designated sacral pressure sore bone. The specimen consists of multiple fragments of bone that in aggregate measure 2 x 2 x 0.4 cm. The entire specimen is submitted in one cassette after decalcification. B - Received in fixative is one container labeled with the patient's name and designated sacral pressure sore tissue. The specimen consists of a piece of skin with underlying tissue measuring 3.8 x 3.5 x 2 cm. The skin surface shows an area of ulceration. Peat Shredder Tender sections are submitted in one cassette. C - Received in fixative is one container labeled with the patient's name and designated left ischial pressure sore bone. The specimen consists of two pieces of bone measuring in aggregate 2 x 1.5 x 0.4 cm. The entire specimen is submitted in one cassette after decalcification. D - Received in fixative is one container labeled with the patient's name and designated left ischial pressure sore tissue. The specimen consists of a piece of skin with underlying tissue measuring 6.5 x 3.5 cm and up to 1.5 cm in thickness. The skin surface shows an extensive area of ulceration. Sections do not reveal any mass lesion. Peat Shredder Tender sections are submitted in two cassettes. E - Received in fixative is one container labeled with the patient's name and designated right ischial pressure sore bone. The specimen consists of two pieces of bone that in aggregate measure 3 x 1.8 x 0.3 cm. The entire specimen is submitted in one cassette after decalcification. F - Received in fixative is one container labeled with the patient's name and designated right ischial pressure sore tissue. The specimen consists of a piece of skin with underlying tissue measuring 4.5 x 3.5 cm and up 2.5 cm in thickness. The skin surface shows an extensive area of ulceration. Peat Shredder Tender sections are submitted in two cassettes. / GALLO:isi 10/01/19 TC:2 CPT: 68587 x6, 70519 x3
--- NOTE | 2019-10-01 12:48 | PCM.PROGNOTE ---
<Celeste Churchill - Last Filed: 10/01/19 13:50> Patient Problems: Active and Suspected Problems Toe necrosis (Acute) Gangrene of toe of right foot (Acute) Osteomyelitis of toe of right foot (Acute) Malnutrition (Suspected) Subjective: Patient seen and examined. Underwent surgery by Dr. Mesa for ischial chronic pressure wounds. Resting comfortably following surgery. - Physical Exam Vitals/I&O's: Vital Signs Temp Pulse Resp BP Pulse Ox 98.8 F 69 16 98/65 98 10/01/19 12:42 10/01/19 12:42 10/01/19 12:42 10/01/19 12:42 10/01/19 12:42 Oxygen Flow Rate (L/min) 3 Oxygen Delivery Method Nasal Cannula Weight: 155 lb 15.985 oz Body Mass Index (BMI) 24.4 Intake and Output for Last 24 Hours 09/29/19 09/30/19 10/01/19 23:59 23:59 23:59 Intake Total 2148.00 / 2648.00 3138.00 / 3138.00 754.0 / 754.0 Output Total 3250 / 3950 2450 / 2450 1000 / 1000 Balance -1102.00 / -1302.00 688.00 / 688.00 -246.0 / -246.0 General: Alert, Oriented x3, Cooperative HEENT: Atraumatic, PERRLA, EOMI, Normocephalic Neck: Supple, No JVD, Negative Carotid Bruits Lungs: Clear to auscultation, Normal air movement Cardiovascular: Regular rate, No murmurs Abdomen: Bowel Sounds Present, Soft, Non Tender, Non-Distended, - - Colostomy intact Extremities: No clubbing, No cyanosis, No edema Skin: - - Right groin wound from prior abscess with wound VAC in place. Bilateral ischium stage IV pressure ulcers, stage IV sacral pressure ulcer. Right first and second toe necrosis. Unstageable bilateral heel pressure ulcers. Musculoskeletal: No Tenderness to Palpation of Joints or Extremities Neurological: Cranial nerves II-XII grossly intact, Neuro grossly intact Psych/Mental Status: Flat Affect Microbiology Past 72 Hours 09/27/19 06:58 Wound - Right Foot Gram Stain - Final 09/27/19 06:58 Wound - Right Foot Wound Culture - Final Meth. resistant Staph. aureus 09/27/19 06:58 Wound - Right Foot Anaerobic Culture - Final No anaerobic bacteria isolated. 09/26/19 18:00 Wound - Aerobic & Anaerobic Swabs Gram Stain - Final 09/26/19 18:00 Wound - Aerobic & Anaerobic Swabs Wound Culture - Final Meth. resistant Staph. aureus 09/26/19 18:00 Wound - Aerobic & Anaerobic Swabs Anaerobic Culture - Final No anaerobic bacteria isolated. Laboratory Results 09/27/19 06:58: Acid Fast Stain SEE PATHOLOGY REPORT 09/30/19 05:30: Iron 25 L, TIBC 207 L, Iron Saturation 12.1 L 09/30/19 13:05: Blood Type O POSITIVE, Antibody Screen NEGATIVE, Crossmatch See Detail 10/01/19 05:36: WBC 6.8, RBC 3.65 L, Hgb 8.8 L, Hct 28.9 L, MCV 79.2 L, MCH 24.1 L, MCHC 30.4 L, RDW Std Deviation 53.0 H, RDW Coeff of Rosendo 18.6 H, Plt Count 333, MPV 7.7 10/01/19 05:36: Sodium 134 L, Potassium 4.3, Chloride 97 L, Carbon Dioxide 32.0, Anion Gap 5, BUN 18, Creatinine 0.59 L, Estim Creat Clear Calc 116.70, Est GFR (MDRD) Af Amer 177, Est GFR (MDRD) Non-Af 146, BUN/Creatinine Ratio 30.5 H, Glucose 128 H, Calcium 8.4 L, Total Bilirubin 0.20, Direct Bilirubin 0.11, AST 21, ALT 25, Alkaline Phosphatase 131 H, Total Protein 6.9, Albumin 2.4 L, Globulin 4.5 H 10/01/19 05:36: Magnesium 1.9 Current Medications Amlodipine Besylate (Norvasc) 5 mg PO DAILY [facility] Last Admin: 09/30/19 10:01 Dose: 5 mg Documented by: Ascorbic Acid (Vitamin C) 500 mg PO DAILY@0800 [facility] Last Admin: 09/30/19 08:23 Dose: 500 mg Documented by: Bupropion HCl (Wellbutrin Xl) 300 mg PO DAILY [facility] Last Admin: 09/30/19 10:00 Dose: 300 mg Documented by: Buspirone HCl (Buspar) 5 mg PO TID [facility] Last Admin: 10/01/19 05:10 Dose: 5 mg Documented by: Diphenhydramine HCl (Benadryl) 25 mg PO BID PRN PRN PRN Reason: ITCHING Last Admin: 10/01/19 05:10 Dose: 25 mg Documented by: Doxazosin Mesylate (Cardura) 2 mg PO QHS [facility] Last Admin: 09/30/19 21:52 Dose: 2 mg Documented by: Ezetimibe (Zetia) 10 mg PO DAILY [facility] Last Admin: 09/30/19 10:00 Dose: 10 mg Documented by: Emollient Ointment (Eucerin Intensive Repair) 1 applic TOPICAL 4X/DAY PRN PRN; Protocol PRN Reason: ITCHING Enoxaparin Sodium (Lovenox) 40 mg SC DAILY [facility] Last Admin: 10/01/19 08:10 Dose: Not Given Documented by: Escitalopram Oxalate (Lexapro) 10 mg PO DAILY [facility] Last Admin: 09/30/19 10:00 Dose: 10 mg Documented by: Ferrous Gluconate (Ferrous Gluconate) 324 mg PO 1200,1700 [facility] Last Admin: 09/30/19 16:45 Dose: 324 mg Documented by: Fluticasone Propionate (Flonase Nasal Newcomb) 2 spray NASAL DAILY [facility] Last Admin: 09/30/19 10:01 Dose: 2 spray Documented by: Gabapentin (Neurontin) 600 mg PO TIDCM [facility] Last Admin: 09/30/19 16:45 Dose: 600 mg Documented by: Heparin Sodium (Beef Lung) () 50 units IV UD PRN PRN Reason: PICC Line Heparin Flush Sodium Chloride () 250 mls @ 15 mls/hr IV .[id number] PRN PRN Reason: Saline Flush Last Infusion: 10/01/19 08:09 Dose: 0 mls/hr Documented by: Sodium Chloride () 250 mls @ 15 mls/hr IV .[id number] PRN PRN Reason: Additional IVPB Infusion Ampicillin Sodium/Sulbactam (Sodium 3 gm/ Sodium Chloride) 112 mls @ 150 mls/hr IV Q6 [facility] Last Admin: 10/01/19 12:30 Dose: 100 mls/hr Documented by: Vancomycin HCl (Vancomycin) 1,000 mg in 200 mls @ 200 mls/hr IV Q12H [facility] Last Infusion: 10/01/19 09:33 Dose: Infused Documented by: Lactated Ringer's () 1,000 mls @ 100 mls/hr IV .Q10H [facility] Last Infusion: 10/01/19 12:35 Dose: 0 mls/hr Documented by: Metoprolol Tartrate (Lopressor (Beta Joo)) 50 mg PO BID [facility] Last Admin: 09/30/19 21:52 Dose: 50 mg Documented by: Morphine Sulfate () 4 mg IV Q3H PRN PRN PRN Reason: Pain Score 6-10/10 Last Admin: 09/30/19 19:53 Dose: 4 mg Documented by: Nutritional Formula (Lactose Free) (Ensure Enlive) 120 ml PO 4X/DAY [facility] Last Admin: 10/01/19 08:10 Dose: Not Given Documented by: Nystatin (Mycostatin Powder) 1 applic TOPICAL TID [facility]; Protocol Last Admin: 10/01/19 05:11 Dose: 1 applicatio Documented by: Ondansetron HCl (Zofran) 4 mg IV Q8H PRN PRN PRN Reason: NAUSEA/VOMITING Oxycodone HCl (Oxyir) 10 mg PO Q4H PRN PRN PRN Reason: Pain Score 1-10/10 Last Admin: 10/01/19 05:10 Dose: 10 mg Documented by: Oxycodone HCl (Oxycontin) 20 mg PO BID [facility] Last Admin: 09/30/19 21:52 Dose: 20 mg Documented by: Pantoprazole Sodium (Protonix) 20 mg PO DAILY [facility] Last Admin: 09/30/19 10:00 Dose: 20 mg Documented by: Polyethylene Glycol (Miralax) 17 gm PO BID [facility] Last Admin: 10/01/19 08:10 Dose: Not Given Documented by: Sodium Chloride () 10 - 40 ml IV UD PRN PRN Reason: SALINE FLUSH Last Admin: 09/30/19 23:53 Dose: 20 ml Documented by: Sodium Chloride () 10 - 40 ml IV UD PRN PRN Reason: Open End PICC Flush Sodium Chloride (0.9% Nacl (Sterile) Posiflush) 10 - 40 ml IV UD PRN PRN Reason: Port access or dressing change Last Admin: 09/30/19 11:24 Dose: 20 ml Documented by: Sodium Hypochlorite (Dakins Solution 0.25% (1/2 Strength)) 1 applic TOPICAL BID [facility]; Protocol Last Admin: 10/01/19 10:42 Dose: Not Given Documented by: Tizanidine HCl (Zanaflex) 4 mg PO Q8H PRN PRN PRN Reason: SPASMS Last Admin: 09/29/19 20:46 Dose: 4 mg Documented by: Medical Necessity - Tobacco Use Smoking Status: Former smoker Assessment/Plan All Active Problems Ulcer of right foot with necrosis of bone (Acute) Toe necrosis (Acute) Gangrene of toe of right foot (Acute) Osteomyelitis of toe of right foot (Acute) Abscess of right groin (Acute) Hyponatremia (Resolved) MRSA bacteremia (Resolved) 1. Gangrenous right great distal toe and right second toe with possible right second toe osteomyelitis-podiatry consulted. Continue Unasyn and vancomycin. Vascular studies ordered which demonstrate PVD and moderately severe bilateral lower extremity arterial occlusive disease. Patient underwent bedside debridement of right second toe. Bone biopsy/tissue culture sent. Wound culture growing MRSA. Continue dressing changes per podiatry orders. Possible need for further surgical intervention. Vascular surgery consulted. ID consulted. 2. Chronic right and left ischium stage IV pressure ulcers with osteomyelitis, stage IV sacral pressure injury with osteomyelitis, unstageable heel eschars-present on admission. Dr. Mesa consulted. Prior debridement 08/13/2019. History of pelvic osteomyelitis and MRSA. Patient underwent excision of recurrent right and left ischial wound with partial ostectomy for osteomyelitis and excision of sacral pressure ulceration with partial ostectomy. Dressing changes per surgery. ID following. 3. Recent right groin abscess status post I&D with wound VAC placement- Dr. Mesa consult as noted above. 4. History of anal cancer status post chemotherapy and radiation-colostomy in place. 5. Chronic COPD-no exacerbation. As needed albuterol aerosol. 6. Hypertension-stable, continue amlodipine, metoprolol. 7. Hyperlipidemia-continue statin. 8. Chronic anemia-1 unit PRBC for hemoglobin 7.7 prior to undergoing surgery. Hemoglobin stable. Trend CBC. 9. History of hepatitis C 10. Anxiety/depression-continue Wellbutrin, BuSpar, Lexapro. 11. GERD-continue home omeprazole regimen. 12. Debility-currently at SNF. PT/OT. 13. PVD/moderately severe bilateral lower extremity arterial occlusive disease-Per vascular studies. Vascular surgery consult pending. DVT prophylaxis-Lovenox subcu. Discharge planning: Plan for return to SNF when medically ready. Patient agreeable to palliative consult at discharge. This patient was seen by AG Bowling under the supervision of Dr. Garcia. <Sunitha Garcia - Last Filed: 10/01/19 14:27> - Physical Exam Vitals/I&O's: Vital Signs Temp Pulse Resp BP Pulse Ox 97.8 F 73 16 125/95 H 94 10/01/19 13:19 10/01/19 13:19 10/01/19 13:19 10/01/19 13:19 10/01/19 13:19 Oxygen Flow Rate (L/min) 2 Oxygen Delivery Method Nasal Cannula Weight: 70.76 kg Body Mass Index (BMI) 24.4 Intake and Output for Last 24 Hours 09/29/19 09/30/19 10/01/19 23:59 23:59 23:59 Intake Total 2148.00 / 2648.00 3138.00 / 3138.00 754.0 / 754.0 Output Total 3250 / 3950 2450 / 2450 1000 / 1000 Balance -1102.00 / -1302.00 688.00 / 688.00 -246.0 / -246.0 Microbiology Past 72 Hours 09/27/19 06:58 Wound - Right Foot Gram Stain - Final 09/27/19 06:58 Wound - Right Foot Wound Culture - Final Meth. resistant Staph. aureus 09/27/19 06:58 Wound - Right Foot Anaerobic Culture - Final No anaerobic bacteria isolated. 09/26/19 18:00 Wound - Aerobic & Anaerobic Swabs Gram Stain - Final 09/26/19 18:00 Wound - Aerobic & Anaerobic Swabs Wound Culture - Final Meth. resistant Staph. aureus 09/26/19 18:00 Wound - Aerobic & Anaerobic Swabs Anaerobic Culture - Final No anaerobic bacteria isolated. Laboratory Results 09/30/19 13:05: Blood Type O POSITIVE, Antibody Screen NEGATIVE, Crossmatch See Detail 10/01/19 05:36: WBC 6.8, RBC 3.65 L, Hgb 8.8 L, Hct 28.9 L, MCV 79.2 L, MCH 24.1 L, MCHC 30.4 L, RDW Std Deviation 53.0 H, RDW Coeff of Rosendo 18.6 H, Plt Count 333, MPV 7.7 10/01/19 05:36: Sodium 134 L, Potassium 4.3, Chloride 97 L, Carbon Dioxide 32.0, Anion Gap 5, BUN 18, Creatinine 0.59 L, Estim Creat Clear Calc 116.70, Est GFR (MDRD) Af Amer 177, Est GFR (MDRD) Non-Af 146, BUN/Creatinine Ratio 30.5 H, Glucose 128 H, Calcium 8.4 L, Total Bilirubin 0.20, Direct Bilirubin 0.11, AST 21, ALT 25, Alkaline Phosphatase 131 H, Total Protein 6.9, Albumin 2.4 L, Globulin 4.5 H 10/01/19 05:36: Magnesium 1.9 Current Medications Amlodipine Besylate (Norvasc) 5 mg PO DAILY [facility] Last Admin: 09/30/19 10:01 Dose: 5 mg Documented by: Ascorbic Acid (Vitamin C) 500 mg PO DAILY@0800 [facility] Last Admin: 09/30/19 08:23 Dose: 500 mg Documented by: Bupropion HCl (Wellbutrin Xl) 300 mg PO DAILY [facility] Last Admin: 09/30/19 10:00 Dose: 300 mg Documented by: Buspirone HCl (Buspar) 5 mg PO TID [facility] Last Admin: 10/01/19 05:10 Dose: 5 mg Documented by: Diphenhydramine HCl (Benadryl) 25 mg PO BID PRN PRN PRN Reason: ITCHING Last Admin: 10/01/19 05:10 Dose: 25 mg Documented by: Doxazosin Mesylate (Cardura) 2 mg PO QHS [facility] Last Admin: 09/30/19 21:52 Dose: 2 mg Documented by: Ezetimibe (Zetia) 10 mg PO DAILY [facility] Last Admin: 09/30/19 10:00 Dose: 10 mg Documented by: Emollient Ointment (Eucerin Intensive Repair) 1 applic TOPICAL 4X/DAY PRN PRN; Protocol PRN Reason: ITCHING Enoxaparin Sodium (Lovenox) 40 mg SC DAILY [facility] Last Admin: 10/01/19 08:10 Dose: Not Given Documented by: Escitalopram Oxalate (Lexapro) 10 mg PO DAILY [facility] Last Admin: 09/30/19 10:00 Dose: 10 mg Documented by: Ferrous Gluconate (Ferrous Gluconate) 324 mg PO 1200,1700 [facility] Last Admin: 09/30/19 16:45 Dose: 324 mg Documented by: Fluticasone Propionate (Flonase Nasal Newcomb) 2 spray NASAL DAILY [facility] Last Admin: 09/30/19 10:01 Dose: 2 spray Documented by: Gabapentin (Neurontin) 600 mg PO TIDCM [facility] Last Admin: 09/30/19 16:45 Dose: 600 mg Documented by: Heparin Sodium (Beef Lung) () 50 units IV UD PRN PRN Reason: PICC Line Heparin Flush Sodium Chloride () 250 mls @ 15 mls/hr IV .[id number] PRN PRN Reason: Saline Flush Last Infusion: 10/01/19 08:09 Dose: 0 mls/hr Documented by: Sodium Chloride () 250 mls @ 15 mls/hr IV .[id number] PRN PRN Reason: Additional IVPB Infusion Ampicillin Sodium/Sulbactam (Sodium 3 gm/ Sodium Chloride) 112 mls @ 150 mls/hr IV Q6 [facility] Last Admin: 10/01/19 12:30 Dose: 100 mls/hr Documented by: Vancomycin HCl (Vancomycin) 1,000 mg in 200 mls @ 200 mls/hr IV Q12H [facility] Last Infusion: 10/01/19 09:33 Dose: Infused Documented by: Lactated Ringer's () 1,000 mls @ 100 mls/hr IV .Q10H [facility] Last Infusion: 10/01/19 12:35 Dose: 0 mls/hr Documented by: Metoprolol Tartrate (Lopressor (Beta Joo)) 50 mg PO BID [facility] Last Admin: 09/30/19 21:52 Dose: 50 mg Documented by: Morphine Sulfate () 4 mg IV Q3H PRN PRN PRN Reason: Pain Score 6-10/10 Last Admin: 09/30/19 19:53 Dose: 4 mg Documented by: Nutritional Formula (Lactose Free) (Ensure Enlive) 120 ml PO 4X/DAY [facility] Last Admin: 10/01/19 08:10 Dose: Not Given Documented by: Nystatin (Mycostatin Powder) 1 applic TOPICAL TID [facility]; Protocol Last Admin: 10/01/19 05:11 Dose: 1 applicatio Documented by: Ondansetron HCl (Zofran) 4 mg IV Q8H PRN PRN PRN Reason: NAUSEA/VOMITING Oxycodone HCl (Oxyir) 10 mg PO Q4H PRN PRN PRN Reason: Pain Score 1-10/10 Last Admin: 10/01/19 05:10 Dose: 10 mg Documented by: Oxycodone HCl (Oxycontin) 20 mg PO BID [facility] Last Admin: 09/30/19 21:52 Dose: 20 mg Documented by: Pantoprazole Sodium (Protonix) 20 mg PO DAILY [facility] Last Admin: 09/30/19 10:00 Dose: 20 mg Documented by: Polyethylene Glycol (Miralax) 17 gm PO BID [facility] Last Admin: 10/01/19 08:10 Dose: Not Given Documented by: Sodium Chloride () 10 - 40 ml IV UD PRN PRN Reason: SALINE FLUSH Last Admin: 09/30/19 23:53 Dose: 20 ml Documented by: Sodium Chloride () 10 - 40 ml IV UD PRN PRN Reason: Open End PICC Flush Sodium Chloride (0.9% Nacl (Sterile) Posiflush) 10 - 40 ml IV UD PRN PRN Reason: Port access or dressing change Last Admin: 09/30/19 11:24 Dose: 20 ml Documented by: Sodium Hypochlorite (Dakins Solution 0.25% (1/2 Strength)) 1 applic TOPICAL BID [facility]; Protocol Last Admin: 10/01/19 10:42 Dose: Not Given Documented by: Tizanidine HCl (Zanaflex) 4 mg PO Q8H PRN PRN PRN Reason: SPASMS Last Admin: 09/29/19 20:46 Dose: 4 mg Documented by: Assessment/Plan This patient was seen in conjunction with Celeste Churchill NP. I have independently interviewed and examined the patient and reviewed pertinent historical, laboratory, and other data. Please refer to her note for patient's presentation, findings, and recommendations. Patient was seen and examined. No new complains. Going for wound debridement of ischial wounds today with Dr. Mesa. Vitals were reviewed -stable Physical Exam: Gen: Appears comfortable, not pale, not jaundiced, alert oriented x3 CVS:HS I +II, regular, no murmurs RESP: Diminished at lung bases, otherwise clinically clear to auscultation GI: BS present and normal, nontender, no palpable organs, colostomy bag has soft brown stools. EXT:No edema, bilateral goals dressing to both legs and right groin Labs reviewed: ASSESSMENT: 1. Acute gangrene of the right distal great, second toe with possible second toe osteomyelitis, 2. Chronic right and left ischial stage IV pressure injuries 3. Stage II sacral pressure injuries 4. Unchangeable heel eschars 5. Right groin wound status post I&D of right groin abscess 6. PAD, severe 7. Anal CA status post chemotherapy and radiation 8. COPD 9. Hypertension 10. Hyperlipidemia 11. Anemia, likely of chronic disease 12. Anxiety/depression 13. GERD Meds reviewed Plan: Continue on IV vancomycin and Unasyn Will follow-up post op Labs in am Inpatient E&M: [id number] Subs Hosp L2
[2019-10-01] MEDS: Gabapentin 600 MG Tablet PO ×3 (15:13→17:45)
[2019-10-01] MEDS: Pantoprazole Sodium 20 MG Tablet PO (15:13)
[2019-10-01] MEDS: buPROPion (XL) 300 MG TABLET.XL PO (15:13)
[2019-10-01] MEDS: Ferrous Gluconate 324 MG Tablet PO ×2 (15:13→17:45)
[2019-10-01] MEDS: Ezetimibe 10 MG Tablet PO (15:13)
[2019-10-01] MEDS: 0.9% Saline Lock 10 ML Syringe IV ×2 (15:14→19:53)
[2019-10-01] MEDS: Metoprolol Tartrate 50 MG Tablet PO ×2 (15:14→21:05)
[2019-10-01] MEDS: Ascorbic Acid 500 MG Tablet PO (15:14)
[2019-10-01] MEDS: amLODIPine 5 MG Tablet PO (15:15)
[2019-10-01] MEDS: Escitalopram Oxalate 10 MG Tablet PO (15:15)
[2019-10-01] MEDS: Morphine 4 MG/ML Syringe IV ×2 (15:18→19:53)
[2019-10-01] MEDS: Doxazosin 1 MG Tablet 2 MG PO (21:05)
[2019-10-01] MEDS: Polyethylene Glycol 3350 17 GM PACKET PO (21:05)
[2019-10-02] VITALS (15 sets, daily range): BP systolic 92–162; BP diastolic 43–75; PULSE 61–84; RESP 12–20; TEMP 36.9–38.1; O2SAT 86–100; BMI 70.8
[2019-10-02] MEDS: 0.9% Saline Lock 10 ML Syringe IV ×3 (01:42→21:01)
[2019-10-02] MEDS: Morphine 4 MG/ML Syringe IV ×5 (01:42→21:33)
[2019-10-02 05:40] LABS: Hematocrit 29.1 % (40-54); Hemoglobin 8.9 g/dL (13.0-16.5); Mean Corp Hgb Conc 30.6 g/dL (32-36); Mean Corpuscular Hgb 24.2 pg (27.0-32.0); Mean Corpuscular Volume 79.1 fL (80-94); Platelet Count 422 K/mm3 (150-450); RBC Distribution Width CV 18.6 % (11.6-14.6); RBC Distribution Width SD 53.2 fl (35.1-43.9); Red Blood Count 3.68 M/mm3 (4.6-6.2); White Blood Count 10.7 K/mm3 (4.4-11.0)
[2019-10-02] MEDS: busPIRone 5 MG Tablet PO ×3 (06:05→23:33)
[2019-10-02] MEDS: Nystatin Powder 15gm Bottle 1 APPLIC TOPICAL ×2 (06:05→23:55)
[2019-10-02 06:47] LABS: Anion Gap 4 (5-15); BUN 22 mg/dL (7-18); BUN/Creat Ratio 35.3 RATIO (10-20); Calcium,Total 8.6 mg/dL (8.5-10.1); Chloride 93 mmol/L (98-107); Creatinine, Serum 0.62 mg/dL (0.70-1.30); EST Glomerular Filtration Rate 137 mL/min (>60); Est Glom Filt Rate - Afr Amer 166 mL/min (>60); Estimated Creatinine Clearance 111.06 ml/min; Glucose 98 mg/dL (74-106); Prealbumin 14.1 mg/dL (20.0-40.0); Sodium Level 130 mmol/L (136-145)
[2019-10-02] MEDS: Vancomycin IV 1,000 MG/200 ML BAG 200 MG IV ×2 (07:44→21:00)
[2019-10-02] MEDS: Fluticasone 0.05% 1 SPRAY NASAL.SRY 2 SPRAY NASAL (09:02)
[2019-10-02] MEDS: Gabapentin 600 MG Tablet PO ×3 (09:02→17:02)
[2019-10-02] MEDS: Ascorbic Acid 500 MG Tablet PO (09:02)
[2019-10-02] MEDS: Pantoprazole Sodium 20 MG Tablet PO (09:03)
[2019-10-02] MEDS: Metoprolol Tartrate 50 MG Tablet PO ×2 (09:03→23:33)
[2019-10-02] MEDS: Escitalopram Oxalate 10 MG Tablet PO (09:03)
[2019-10-02] MEDS: buPROPion (XL) 300 MG TABLET.XL PO (09:03)
[2019-10-02] MEDS: Polyethylene Glycol 3350 17 GM PACKET PO ×2 (09:09→23:35)
[2019-10-02] MEDS: Ezetimibe 10 MG Tablet PO (09:09)
[2019-10-02] MEDS: Enoxaparin 40 MG/0.4 ML Syringe SC (09:10)
[2019-10-02] MEDS: DAKIN'S SOL HALF STRENGTH (=0.25%) 1 APPLIC TOPICAL ×2 (10:17→23:47)
--- NOTE | 2019-10-02 10:58 | PCM.CONS.GEN ---
Problem List (1) Peripheral vascular disease Status: Chronic Reason for Consult Date of Consultation: 10/02/19 Reason for Consultation: pad History of Present Illness: The patient is a 64 year old M that was admitted in with some gangrene noted to his toes. Also had some worsening of his decubitus ulcer. He has a history of anal cancer with radiation therapy and has a wound in the right groin antecubitus. Also now some gangrene on the right great toe and more so on the second toe. He had ABIs September 25 that was 0.67 on the right and 0.58 on the left. Both were monophasic flow noted. Vascular surgery consulted for evaluation of this. Patient with no prior vascular surgery interventions. [] Past Medical History Past Medical History (Chronic Problems): Chronic Problems Sacral pressure ulcer (Chronic) Pressure ulcer, heel, right, unstageable (Chronic) Decubitus ulcer of left heel, stage 4 (Chronic) Pressure ulcer of toe of right foot (Chronic) Peripheral vascular disease (Chronic) Unstageable pressure ulcer of right heel (Chronic) Unstageable pressure ulcer of left heel (Chronic) Non-healing open wound of right groin (Chronic) Skin necrosis (Chronic) Pressure sore of left ischium, stage 4 (Chronic) Candidal skin infection (Chronic) 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) Infection and inflammatory reaction due to internal left knee prosthesis, initial encounter (Chronic) History of total left knee replacement (Chronic) Skin ulcer of left thigh with fat layer exposed (Chronic) Pressure ulcer of right buttock, stage 3 (Chronic) Skin ulcer of elbow with fat layer exposed (Chronic) Decubitus ulcer of left heel, stage 2 (Chronic) Debility (Chronic) Personal history of Methicillin resistant Staphylococcus aureus infection (Chronic) Acute osteomyelitis of right pelvic region (Chronic) History of anal cancer (Chronic) 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, 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) Anal cancer (Chronic) Hepatitis C carrier (Chronic) COPD (chronic obstructive pulmonary disease) (Chronic) Anxiety and depression (Chronic) HTN (hypertension) (Chronic) HLD (hyperlipidemia) (Chronic) GERD (gastroesophageal reflux disease) (Chronic) PAD (peripheral artery disease) (Chronic) Allergies chlorthalidone Allergy (Verified 09/26/19 10:56) Other famotidine Allergy (Verified 09/26/19 10:56) Unknown povidone-iodine [From Betadine] Allergy (Verified 09/26/19 10:56) Hives soap Adverse Reaction (Verified 09/26/19 10:56) Hives Kejsfja-Dtz-Irb Reductase Inhibitor Adverse Reaction (Verified 09/26/19 10:56) MESSED MY LIVER UP adhesive tape Allergy (Uncoded 08/12/19 16:20) Itching/rash Home Medications: Ambulatory Orders Medication Instructions Recorded Escitalopram Oxalate [Lexapro] 10 mg PO DAILY 03/22/16 Fluticasone 0.05% [Flonase Nasal 2 spray NASAL DAILY 03/22/16 [place]] Multivitamin [Multiple Vitamins] 1 each PO DAILY 03/22/16 buPROPion XL [Wellbutrin Xl] 300 mg PO DAILY 03/22/16 busPIRone [Buspar] 5 mg PO TID 03/22/16 Tizanidine HCl [Zanaflex] 4 mg PO 4X/DAY PRN PRN 12/27/16 Metoprolol Tartrate [Lopressor 50 mg PO BID 01/19/18 (beta joo)] Amlodipine [Norvasc] 5 mg PO DAILY 08/22/18 Ascorbic Acid [Vitamin C] 500 mg PO DAILY@0800 08/22/18 Ferrous Gluconate 324 mg PO BID 08/22/18 Ezetimibe [Zetia] 10 mg PO DAILY 10/18/18 Nystatin [Mycostatin] 1 applic TOPICAL BID 02/08/19 Doxazosin Mesylate [Cardura] 2 mg PO QHS 08/12/19 Gabapentin [Neurontin] 600 mg PO TIDCM 08/12/19 Ibuprofen 800 mg PO TID 08/12/19 Cholecalciferol (Vitamin D3) 25 gm MC DAILY 09/26/19 [Cholecalciferol] DiphenhydrAMINE [Benadryl] 25 mg PO Q8H PRN PRN 09/26/19 Omeprazole 20 mg PO DAILY 09/26/19 Oxycodone CR [Oxycontin] 15 mg PO DAILY 09/26/19 Oxycodone HCl 10 mg PO Q4H PRN PRN 09/26/19 Umeclidinium [place] [Incruse 1 puff IH DAILY 09/26/19 [place]ipta] Vancomycin IV 2,000 mg IV Q24H 09/26/19 Surgical History: total hip arthroplasty - left, total knee arthroplasty, - - 12/30/16 Surgical preparation right gluteal/ischial area with excision radiation pressure sore abscess wound and partial ostectomy for osteomyelitis (52.5 cm2), 06/08/17 Excision radiation pressure sore abscess ulcer right ischial area, Stage IV, with partial ostectomy for osteomyelitis, 10/17/17 Excision radiation pressure sore abscess ulcer right ischial area, Stage IV, with partial ostectomy for osteomyelitis. Psychiatric History: No pertinent psych hx Lives: Shelter Smoking Status: Former smoker Alcohol: None Drugs: None - *Family History Maternal History Items: - - Denies known maternal medical history including cardiac history. Paternal History Items: - - Denies known paternal medical history including cardiac history. Review of Systems Constitutional: Denies: Chills, Fever, Weight Change HEENT: Denies: Head Aches, Sinus Congestion, Sinus Drainage Cardiovascular: Denies: Chest Pain, Palpitations Respiratory: Denies: Cough, Shortness of breath at rest, Sputum production Gastrointestinal: Denies: Abdominal Pain, Nausea, Vomiting Genitourinary: Denies: Dysuria Musculoskeletal: Reports: - - gangrene right toes Skin: Reports: Wounds - decub Patient Problems: Active and Suspected Problems Toe necrosis (Acute) Gangrene of toe of right foot (Acute) Osteomyelitis of toe of right foot (Acute) Malnutrition (Suspected) - Physical Exam Vitals/I&O's: Vital Signs Temp Pulse Resp BP Pulse Ox 99.3 F H 74 16 101/48 L 96 10/02/19 09:25 10/02/19 09:25 10/02/19 09:25 10/02/19 09:25 10/02/19 09:25 Oxygen Flow Rate (L/min) 2 Oxygen Delivery Method Nasal Cannula Weight: 155 lb 15.985 oz Body Mass Index (BMI) 24.4 Intake and Output for Last 24 Hours 09/30/19 10/01/19 10/02/19 23:59 23:59 23:59 Intake Total 3138.00 / 3138.00 1778.0 / 1778.0 629.00 / 629.00 Output Total 2450 / 2450 2600 / 2600 650 / 650 Balance 688.00 / 688.00 -822.0 / -822.0 -21.00 / -21.00 General: Alert, Oriented x3 HEENT: Atraumatic Oral: Moist Mucosa Neck: Supple Lungs: Clear to auscultation Cardiovascular: Regular rate Abdomen: Soft, Non Tender Extremities: - - gangrene right 2md toe Microbiology Past 72 Hours 10/01/19 Unknown Tissue - Buttock Gram Stain - Final 10/01/19 Unknown Bone - Buttock Gram Stain - Final 10/01/19 Unknown Tissue - Buttock Gram Stain - Final 10/01/19 Unknown Bone - Buttock Gram Stain - Final 10/01/19 Unknown Tissue - Buttock Gram Stain - Final 10/01/19 Unknown Bone - Buttock Gram Stain - Final 09/27/19 06:58 Wound - Right Foot Gram Stain - Final 09/27/19 06:58 Wound - Right Foot Wound Culture - Final Meth. resistant Staph. aureus 09/27/19 06:58 Wound - Right Foot Anaerobic Culture - Final No anaerobic bacteria isolated. 09/26/19 18:00 Wound - Aerobic & Anaerobic Swabs Gram Stain - Final 09/26/19 18:00 Wound - Aerobic & Anaerobic Swabs Wound Culture - Final Meth. resistant Staph. aureus 09/26/19 18:00 Wound - Aerobic & Anaerobic Swabs Anaerobic Culture - Final No anaerobic bacteria isolated. Laboratory Results 10/02/19 05:06: WBC 10.7, RBC 3.68 L, Hgb 8.9 L, Hct 29.1 L, MCV 79.1 L, MCH 24.2 L, MCHC 30.6 L, RDW Std Deviation 53.2 H, RDW Coeff of Rosendo 18.6 H, Plt Count 422, MPV 8.0 10/02/19 05:06: Sodium 130 L, Potassium 5.0, Chloride 93 L, Carbon Dioxide 33.0 H, Anion Gap 4 L, BUN 22 H, Creatinine 0.62 L, Estim Creat Clear Calc 111.06, Est GFR (MDRD) Af Amer 166, Est GFR (MDRD) Non-Af 137, BUN/Creatinine Ratio 35.3 H, Glucose 98, Calcium 8.6, Prealbumin 14.1 L Current Medications Amlodipine Besylate (Norvasc) 5 mg PO DAILY DHARA Last Admin: 10/02/19 09:03 Dose: Not Given Documented by: Ascorbic Acid (Vitamin C) 500 mg PO DAILY@0800 [facility] Last Admin: 10/02/19 09:02 Dose: 500 mg Documented by: Bupropion HCl (Wellbutrin Xl) 300 mg PO DAILY [facility] Last Admin: 10/02/19 09:03 Dose: 300 mg Documented by: Buspirone HCl (Buspar) 5 mg PO TID [facility] Last Admin: 10/02/19 06:05 Dose: 5 mg Documented by: Diphenhydramine HCl (Benadryl) 25 mg PO BID PRN PRN PRN Reason: ITCHING Last Admin: 10/01/19 15:18 Dose: 25 mg Documented by: Doxazosin Mesylate (Cardura) 2 mg PO QHS [facility] Last Admin: 10/01/19 21:05 Dose: 2 mg Documented by: Ezetimibe (Zetia) 10 mg PO DAILY [facility] Last Admin: 10/02/19 09:09 Dose: 10 mg Documented by: Emollient Ointment (Eucerin Intensive Repair) 1 applic TOPICAL 4X/DAY PRN PRN; Protocol PRN Reason: ITCHING Enoxaparin Sodium (Lovenox) 40 mg SC DAILY [facility] Last Admin: 10/02/19 09:10 Dose: 40 mg Documented by: Escitalopram Oxalate (Lexapro) 10 mg PO DAILY [facility] Last Admin: 10/02/19 09:03 Dose: 10 mg Documented by: Ferrous Gluconate (Ferrous Gluconate) 324 mg PO 1200,1700 [facility] Last Admin: 10/01/19 17:45 Dose: 324 mg Documented by: Fluticasone Propionate (Flonase Nasal [place]) 2 spray NASAL DAILY [facility] Last Admin: 10/02/19 09:02 Dose: 2 spray Documented by: Gabapentin (Neurontin) 600 mg PO TIDCM [facility] Last Admin: 10/02/19 09:02 Dose: 600 mg Documented by: Heparin Sodium (Beef Lung) () 50 units IV UD PRN PRN Reason: PICC Line Heparin Flush Sodium Chloride () 250 mls @ 15 mls/hr IV .[id number] PRN PRN Reason: Saline Flush Last Infusion: 10/02/19 09:18 Dose: 15 mls/hr Documented by: Sodium Chloride () 250 mls @ 15 mls/hr IV .[id number] PRN PRN Reason: Additional IVPB Infusion Ampicillin Sodium/Sulbactam (Sodium 3 gm/ Sodium Chloride) 112 mls @ 150 mls/hr IV Q6 [facility] Last Infusion: 10/02/19 07:44 Dose: Infused Documented by: Vancomycin HCl (Vancomycin) 1,000 mg in 200 mls @ 200 mls/hr IV Q12H [facility] Last Infusion: 10/02/19 09:17 Dose: Infused Documented by: Metoprolol Tartrate (Lopressor (Beta Joo)) 50 mg PO BID [facility] Last Admin: 10/02/19 09:03 Dose: 50 mg Documented by: Morphine Sulfate () 4 mg IV Q3H PRN PRN PRN Reason: Pain Score 6-10/10 Last Admin: 10/02/19 06:06 Dose: 4 mg Documented by: Nutritional Formula (Lactose Free) (Ensure Enlive) 120 ml PO 4X/DAY [facility] Last Admin: 10/02/19 09:09 Dose: 120 ml Documented by: Nystatin (Mycostatin Powder) 1 applic TOPICAL TID [facility]; Protocol Last Admin: 10/02/19 06:05 Dose: 1 applicatio Documented by: Ondansetron HCl (Zofran) 4 mg IV Q8H PRN PRN PRN Reason: NAUSEA/VOMITING Oxycodone HCl (Oxyir) 10 mg PO Q4H PRN PRN PRN Reason: Pain Score 1-10/10 Last Admin: 10/01/19 22:38 Dose: 10 mg Documented by: Oxycodone HCl (Oxycontin) 20 mg PO BID [facility] Last Admin: 10/02/19 09:09 Dose: 20 mg Documented by: Pantoprazole Sodium (Protonix) 20 mg PO DAILY [facility] Last Admin: 10/02/19 09:03 Dose: 20 mg Documented by: Polyethylene Glycol (Miralax) 17 gm PO BID [facility] Last Admin: 10/02/19 09:09 Dose: 17 gm Documented by: Sodium Chloride () 10 - 40 ml IV UD PRN PRN Reason: SALINE FLUSH Last Admin: 10/02/19 06:06 Dose: 10 ml Documented by: Sodium Chloride () 10 - 40 ml IV UD PRN PRN Reason: Open End PICC Flush Sodium Chloride (0.9% Nacl (Sterile) Posiflush) 10 - 40 ml IV UD PRN PRN Reason: Port access or dressing change Last Admin: 09/30/19 11:24 Dose: 20 ml Documented by: Sodium Hypochlorite (Dakins Solution 0.25% (1/2 Strength)) 1 applic TOPICAL BID DHARA; Protocol Last Admin: 10/02/19 10:17 Dose: 1 applicatio Documented by: Tizanidine HCl (Zanaflex) 4 mg PO Q8H PRN PRN PRN Reason: SPASMS Last Admin: 09/29/19 20:46 Dose: 4 mg Documented by: Assessment/Plan All Active Problems Ulcer of right foot with necrosis of bone (Acute) Toe necrosis (Acute) Gangrene of toe of right foot (Acute) Osteomyelitis of toe of right foot (Acute) Abscess of right groin (Acute) Hyponatremia (Resolved) MRSA bacteremia (Resolved) 1. PAD. Patient moderate bilateral PAD. With all his previous radiation as well will need to better evaluate throughout the right lower extremity. Plan to get a CTA of the abdomen pelvis with runoff to see if he has any iliac occlusive disease. Would plan an intervention over the next week or so to maximize flow into the foot.
[2019-10-02] MEDS: Ferrous Gluconate 324 MG Tablet PO ×2 (11:22→17:02)
--- NOTE | 2019-10-02 11:35 | CASEMGMT ---
Social Work Note Pt could potentially discharge today/tomorrow back to [facility]. SHAHANA placed a call to Tala at [facility]. Tala states pt's pre-cert has so she will need to submit a new one. SHAHANA faxed updated clinicals to [facility]. SHAHANA received call from Fadumo at [facility] [place] [facility]. Fadumo states she received Palliative referral from [facility] before pt admitted to [facility] and she will follow up with pt once pt returns to [facility]. Plan: 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
--- NOTE | 2019-10-02 12:12 | PN_ITS ---
<Celeste Churchill - Last Filed: 10/02/19 12:21> Patient Problems: Active and Suspected Problems Toe necrosis (Acute) Gangrene of toe of right foot (Acute) Osteomyelitis of toe of right foot (Acute) Malnutrition (Suspected) Subjective: Patient seen and examined. States he is having pain at surgical sites however falling asleep during conversation. Denies other complaints. - Physical Exam Vitals/I&O's: Vital Signs Temp Pulse Resp BP Pulse Ox 98.4 F 66 16 112/75 86 10/02/19 11:37 10/02/19 11:37 10/02/19 11:37 10/02/19 11:37 10/02/19 11:38 Oxygen Flow Rate (L/min) 2 Oxygen Delivery Method Room Air Weight: 155 lb 15.985 oz Body Mass Index (BMI) 24.4 Intake and Output for Last 24 Hours 09/30/19 10/01/19 10/02/19 23:59 23:59 23:59 Intake Total 3138.00 / 3138.00 1778.0 / 1778.0 861.25 / 861.25 Output Total 2450 / 2450 2600 / 2600 650 / 650 Balance 688.00 / 688.00 -822.0 / -822.0 211.25 / 211.25 General: - - Drowsy HEENT: Atraumatic, PERRLA, EOMI, Normocephalic Oral: Dry Mucosa Neck: Supple, No JVD, Negative Carotid Bruits Lungs: Clear to auscultation, Normal air movement Cardiovascular: Regular rate, No murmurs Abdomen: Bowel Sounds Present, Soft, Non Tender, Non-Distended, - - Colostomy intact Extremities: No clubbing, No cyanosis, No edema Skin: No rashes, - - Right groin wound from prior abscess with wound VAC in place. Bilateral ischium stage IV pressure ulcers, stage IV sacral pressure ulcer. Right first and second toe necrosis. Unstageable bilateral heel pressure ulcers. Musculoskeletal: No Tenderness to Palpation of Joints or Extremities, Cachexia, Muscle Wasting Neurological: Cranial nerves II-XII grossly intact, Neuro grossly intact Psych/Mental Status: Flat Affect Microbiology Past 72 Hours 10/01/19 Unknown Tissue - Buttock Gram Stain - Final 10/01/19 Unknown Bone - Buttock Gram Stain - Final 10/01/19 Unknown Tissue - Buttock Gram Stain - Final 10/01/19 Unknown Bone - Buttock Gram Stain - Final 10/01/19 Unknown Tissue - Buttock Gram Stain - Final 10/01/19 Unknown Bone - Buttock Gram Stain - Final 09/27/19 06:58 Wound - Right Foot Gram Stain - Final 09/27/19 06:58 Wound - Right Foot Wound Culture - Final Meth. resistant Staph. aureus 09/27/19 06:58 Wound - Right Foot Anaerobic Culture - Final No anaerobic bacteria isolated. 09/26/19 18:00 Wound - Aerobic & Anaerobic Swabs Gram Stain - Final 09/26/19 18:00 Wound - Aerobic & Anaerobic Swabs Wound Culture - Final Meth. resistant Staph. aureus 09/26/19 18:00 Wound - Aerobic & Anaerobic Swabs Anaerobic Culture - Final No anaerobic bacteria isolated. Laboratory Results 10/02/19 05:06: WBC 10.7, RBC 3.68 L, Hgb 8.9 L, Hct 29.1 L, MCV 79.1 L, MCH 24.2 L, MCHC 30.6 L, RDW Std Deviation 53.2 H, RDW Coeff of Rosendo 18.6 H, Plt Count 422, MPV 8.0 10/02/19 05:06: Sodium 130 L, Potassium 5.0, Chloride 93 L, Carbon Dioxide 33.0 H, Anion Gap 4 L, BUN 22 H, Creatinine 0.62 L, Estim Creat Clear Calc 111.06, Est GFR (MDRD) Af Amer 166, Est GFR (MDRD) Non-Af 137, BUN/Creatinine Ratio 35.3 H, Glucose 98, Calcium 8.6, Prealbumin 14.1 L Current Medications Amlodipine Besylate (Norvasc) 5 mg PO DAILY [facility] Last Admin: 10/02/19 09:03 Dose: Not Given Documented by: Ascorbic Acid (Vitamin C) 500 mg PO DAILY@0800 [facility] Last Admin: 10/02/19 09:02 Dose: 500 mg Documented by: Bupropion HCl (Wellbutrin Xl) 300 mg PO DAILY [facility] Last Admin: 10/02/19 09:03 Dose: 300 mg Documented by: Buspirone HCl (Buspar) 5 mg PO TID [facility] Last Admin: 10/02/19 06:05 Dose: 5 mg Documented by: Diphenhydramine HCl (Benadryl) 25 mg PO BID PRN PRN PRN Reason: ITCHING Last Admin: 10/01/19 15:18 Dose: 25 mg Documented by: Doxazosin Mesylate (Cardura) 2 mg PO QHS [facility] Last Admin: 10/01/19 21:05 Dose: 2 mg Documented by: Ezetimibe (Zetia) 10 mg PO DAILY [facility] Last Admin: 10/02/19 09:09 Dose: 10 mg Documented by: Emollient Ointment (Eucerin Intensive Repair) 1 applic TOPICAL 4X/DAY PRN PRN; Protocol PRN Reason: ITCHING Enoxaparin Sodium (Lovenox) 40 mg SC DAILY [facility] Last Admin: 10/02/19 09:10 Dose: 40 mg Documented by: Escitalopram Oxalate (Lexapro) 10 mg PO DAILY [facility] Last Admin: 10/02/19 09:03 Dose: 10 mg Documented by: Ferrous Gluconate (Ferrous Gluconate) 324 mg PO 1200,1700 [facility] Last Admin: 10/02/19 11:22 Dose: 324 mg Documented by: Fluticasone Propionate (Flonase Nasal [address]) 2 spray NASAL DAILY [facility] Last Admin: 10/02/19 09:02 Dose: 2 spray Documented by: Gabapentin (Neurontin) 600 mg PO TIDCM [facility] Last Admin: 10/02/19 11:22 Dose: 600 mg Documented by: Heparin Sodium (Beef Lung) () 50 units IV UD PRN PRN Reason: PICC Line Heparin Flush Sodium Chloride () 250 mls @ 15 mls/hr IV .[id number] PRN PRN Reason: Saline Flush Last Infusion: 10/02/19 11:27 Dose: 0 mls/hr Documented by: Sodium Chloride () 250 mls @ 15 mls/hr IV .[id number] PRN PRN Reason: Additional IVPB Infusion Ampicillin Sodium/Sulbactam (Sodium 3 gm/ Sodium Chloride) 112 mls @ 150 mls/hr IV Q6 [facility] Last Admin: 10/02/19 11:22 Dose: 150 mls/hr Documented by: Vancomycin HCl (Vancomycin) 1,000 mg in 200 mls @ 200 mls/hr IV Q12H [facility] Last Infusion: 10/02/19 09:17 Dose: Infused Documented by: Metoprolol Tartrate (Lopressor (Beta Joo)) 50 mg PO BID [facility] Last Admin: 10/02/19 09:03 Dose: 50 mg Documented by: Morphine Sulfate () 4 mg IV Q3H PRN PRN PRN Reason: Pain Score 6-10/10 Last Admin: 10/02/19 11:17 Dose: 4 mg Documented by: Nutritional Formula (Lactose Free) (Ensure Enlive) 120 ml PO 4X/DAY [facility] Last Admin: 10/02/19 09:09 Dose: 120 ml Documented by: Nystatin (Mycostatin Powder) 1 applic TOPICAL TID [facility]; Protocol Last Admin: 10/02/19 06:05 Dose: 1 applicatio Documented by: Ondansetron HCl (Zofran) 4 mg IV Q8H PRN PRN PRN Reason: NAUSEA/VOMITING Oxycodone HCl (Oxyir) 10 mg PO Q4H PRN PRN PRN Reason: Pain Score 1-10/10 Last Admin: 10/01/19 22:38 Dose: 10 mg Documented by: Oxycodone HCl (Oxycontin) 20 mg PO BID [facility] Last Admin: 10/02/19 09:09 Dose: 20 mg Documented by: Pantoprazole Sodium (Protonix) 20 mg PO DAILY [facility] Last Admin: 10/02/19 09:03 Dose: 20 mg Documented by: Polyethylene Glycol (Miralax) 17 gm PO BID [facility] Last Admin: 10/02/19 09:09 Dose: 17 gm Documented by: Sodium Chloride () 10 - 40 ml IV UD PRN PRN Reason: SALINE FLUSH Last Admin: 10/02/19 06:06 Dose: 10 ml Documented by: Sodium Chloride () 10 - 40 ml IV UD PRN PRN Reason: Open End PICC Flush Sodium Chloride (0.9% Nacl (Sterile) Posiflush) 10 - 40 ml IV UD PRN PRN Reason: Port access or dressing change Last Admin: 09/30/19 11:24 Dose: 20 ml Documented by: Sodium Hypochlorite (Dakins Solution 0.25% (1/2 Strength)) 1 applic TOPICAL BID [facility]; Protocol Last Admin: 10/02/19 10:17 Dose: 1 applicatio Documented by: Tizanidine HCl (Zanaflex) 4 mg PO Q8H PRN PRN PRN Reason: SPASMS Last Admin: 09/29/19 20:46 Dose: 4 mg Documented by: Medical Necessity - Tobacco Use Smoking Status: Former smoker Assessment/Plan All Active Problems Ulcer of right foot with necrosis of bone (Acute) Toe necrosis (Acute) Gangrene of toe of right foot (Acute) Osteomyelitis of toe of right foot (Acute) Abscess of right groin (Acute) Hyponatremia (Resolved) MRSA bacteremia (Resolved) 1. Gangrenous right great distal toe and right second toe with possible right second toe osteomyelitis-podiatry consulted. Continue Unasyn and vancomycin. Vascular studies ordered which demonstrate PVD and moderately severe bilateral lower extremity arterial occlusive disease. Patient underwent bedside debridement of right second toe. Bone biopsy/tissue culture sent. Wound culture growing MRSA. Continue dressing changes per podiatry orders. Possible need for further surgical intervention. ID following. Vascular surgery consulted. Recommend CTA of the abdomen pelvis with runoff. Plan for outpatient follow-up with further intervention. 2. Chronic right and left ischium stage IV pressure ulcers with osteomyelitis, stage IV sacral pressure injury with osteomyelitis, unstageable heel eschars- present on admission. Dr. Mesa consulted. Prior debridement 08/13/2019. History of pelvic osteomyelitis and MRSA. Patient underwent excision of recurrent right and left ischial wound with partial ostectomy for osteomyelitis and excision of sacral pressure ulceration with partial ostectomy 10/01/2019. Dressing changes per surgery. ID following. 3. Recent right groin abscess status post I&D with wound VAC placement- Dr. Mesa consult as noted above. 4. History of anal cancer status post chemotherapy and radiation-colostomy in place. 5. Chronic COPD-no exacerbation. As needed albuterol aerosol. 6. Hypertension-stable, continue amlodipine, metoprolol. 7. Hyperlipidemia-continue statin. 8. Chronic anemia-1 unit PRBC for hemoglobin 7.7 prior to undergoing surgery. Hemoglobin stable. Trend CBC. 9. History of hepatitis C 10. Anxiety/depression-continue Wellbutrin, BuSpar, Lexapro. 11. GERD-continue home omeprazole regimen. 12. Debility-currently at SNF. PT/OT. 13. PVD/moderately severe bilateral lower extremity arterial occlusive disease- Per vascular studies. Vascular surgery consulted. DVT prophylaxis-Lovenox subcu. Discharge planning: Plan for return to SNF when medically ready. Patient ag reeable to palliative consult at discharge. This patient was seen by AG Bowling under the supervision of Dr. Garcai. <Sunitha Garcia - Last Filed: 10/02/19 13:41> - Physical Exam Vitals/I&O's: Vital Signs Temp Pulse Resp BP Pulse Ox 98.4 F 66 16 112/75 86 10/02/19 11:37 10/02/19 11:37 10/02/19 11:37 10/02/19 11:37 10/02/19 11:38 Oxygen Flow Rate (L/min) 2 Oxygen Delivery Method Room Air Weight: 70.76 kg Body Mass Index (BMI) 24.4 Intake and Output for Last 24 Hours 09/30/19 10/01/19 10/02/19 23:59 23:59 23:59 Intake Total 3138.00 / 3138.00 1778.0 / 1778.0 975.75 / 975.75 Output Total 2450 / 2450 2600 / 2600 650 / 650 Balance 688.00 / 688.00 -822.0 / -822.0 325.75 / 325.75 Microbiology Past 72 Hours 10/01/19 Unknown Tissue - Buttock Gram Stain - Final 10/01/19 Unknown Tissue - Buttock Wound Culture - Preliminary Gram negative jesus Gram negative jesus#2 10/01/19 Unknown Bone - Buttock Gram Stain - Final 10/01/19 Unknown Bone - Buttock Wound Culture - Preliminary Gram negative jesus GNR Poss Pseudomonas sp 10/01/19 Unknown Tissue - Buttock Gram Stain - Final 10/01/19 Unknown Tissue - Buttock Wound Culture - Preliminary Gram negative jesus 10/01/19 Unknown Bone - Buttock Gram Stain - Final 10/01/19 Unknown Bone - Buttock Wound Culture - Preliminary Gram negative jesus 10/01/19 Unknown Tissue - Buttock Gram Stain - Final 10/01/19 Unknown Bone - Buttock Gram Stain - Final 09/27/19 06:58 Wound - Right Foot Gram Stain - Final 09/27/19 06:58 Wound - Right Foot Wound Culture - Final Meth. resistant Staph. aureus 09/27/19 06:58 Wound - Right Foot Anaerobic Culture - Final No anaerobic bacteria isolated. Laboratory Results 10/02/19 05:06: WBC 10.7, RBC 3.68 L, Hgb 8.9 L, Hct 29.1 L, MCV 79.1 L, MCH 24.2 L, MCHC 30.6 L, RDW Std Deviation 53.2 H, RDW Coeff of Rosendo 18.6 H, Plt Count 422, MPV 8.0 10/02/19 05:06: Sodium 130 L, Potassium 5.0, Chloride 93 L, Carbon Dioxide 33.0 H, Anion Gap 4 L, BUN 22 H, Creatinine 0.62 L, Estim Creat Clear Calc 111.06, Est GFR (MDRD) Af Amer 166, Est GFR (MDRD) Non-Af 137, BUN/Creatinine Ratio 35.3 H, Glucose 98, Calcium 8.6, Prealbumin 14.1 L Current Medications Amlodipine Besylate (Norvasc) 5 mg PO DAILY [facility] Last Admin: 10/02/19 09:03 Dose: Not Given Documented by: Ascorbic Acid (Vitamin C) 500 mg PO DAILY@0800 [facility] Last Admin: 10/02/19 09:02 Dose: 500 mg Documented by: Bupropion HCl (Wellbutrin Xl) 300 mg PO DAILY [facility] Last Admin: 10/02/19 09:03 Dose: 300 mg Documented by: Buspirone HCl (Buspar) 5 mg PO TID [facility] Last Admin: 10/02/19 06:05 Dose: 5 mg Documented by: Diphenhydramine HCl (Benadryl) 25 mg PO BID PRN PRN PRN Reason: ITCHING Last Admin: 10/01/19 15:18 Dose: 25 mg Documented by: Doxazosin Mesylate (Cardura) 2 mg PO QHS [facility] Last Admin: 10/01/19 21:05 Dose: 2 mg Documented by: Ezetimibe (Zetia) 10 mg PO DAILY [facility] Last Admin: 10/02/19 09:09 Dose: 10 mg Documented by: Emollient Ointment (Eucerin Intensive Repair) 1 applic TOPICAL 4X/DAY PRN PRN; Protocol PRN Reason: ITCHING Enoxaparin Sodium (Lovenox) 40 mg SC DAILY [facility] Last Admin: 10/02/19 09:10 Dose: 40 mg Documented by: Escitalopram Oxalate (Lexapro) 10 mg PO DAILY [facility] Last Admin: 10/02/19 09:03 Dose: 10 mg Documented by: Ferrous Gluconate (Ferrous Gluconate) 324 mg PO 1200,1700 [facility] Last Admin: 10/02/19 11:22 Dose: 324 mg Documented by: Fluticasone Propionate (Flonase Nasal [address]) 2 spray NASAL DAILY [facility] Last Admin: 10/02/19 09:02 Dose: 2 spray Documented by: Gabapentin (Neurontin) 600 mg PO TIDCM [facility] Last Admin: 10/02/19 11:22 Dose: 600 mg Documented by: Heparin Sodium (Beef Lung) () 50 units IV UD PRN PRN Reason: PICC Line Heparin Flush Sodium Chloride () 250 mls @ 15 mls/hr IV .[id number] PRN PRN Reason: Saline Flush Last Infusion: 10/02/19 13:02 Dose: 15 mls/hr Documented by: Sodium Chloride () 250 mls @ 15 mls/hr IV .[id number] PRN PRN Reason: Additional IVPB Infusion Vancomycin HCl (Vancomycin) 1,000 mg in 200 mls @ 200 mls/hr IV Q12H [facility] Last Infusion: 10/02/19 09:17 Dose: Infused Documented by: Meropenem 1 gm/ Sodium (Chloride) 120 mls @ 33 mls/hr IV Q8 [facility] Metoprolol Tartrate (Lopressor (Beta Joo)) 50 mg PO BID [facility] Last Admin: 10/02/19 09:03 Dose: 50 mg Documented by: Morphine Sulfate () 4 mg IV Q3H PRN PRN PRN Reason: Pain Score 6-10/10 Last Admin: 10/02/19 11:17 Dose: 4 mg Documented by: Nutritional Formula (Lactose Free) (Ensure Enlive) 120 ml PO 4X/DAY [facility] Last Admin: 10/02/19 09:09 Dose: 120 ml Documented by: Nystatin (Mycostatin Powder) 1 applic TOPICAL TID [facility]; Protocol Last Admin: 10/02/19 06:05 Dose: 1 applicatio Documented by: Ondansetron HCl (Zofran) 4 mg IV Q8H PRN PRN PRN Reason: NAUSEA/VOMITING Oxycodone HCl (Oxyir) 10 mg PO Q4H PRN PRN PRN Reason: Pain Score 1-10/10 Last Admin: 10/01/19 22:38 Dose: 10 mg Documented by: Oxycodone HCl (Oxycontin) 20 mg PO BID [facility] Last Admin: 10/02/19 09:09 Dose: 20 mg Documented by: Pantoprazole Sodium (Protonix) 20 mg PO DAILY [facility] Last Admin: 10/02/19 09:03 Dose: 20 mg Documented by: Polyethylene Glycol (Miralax) 17 gm PO BID [facility] Last Admin: 10/02/19 09:09 Dose: 17 gm Documented by: Sodium Chloride () 10 - 40 ml IV UD PRN PRN Reason: SALINE FLUSH Last Admin: 10/02/19 06:06 Dose: 10 ml Documented by: Sodium Chloride () 10 - 40 ml IV UD PRN PRN Reason: Open End PICC Flush Sodium Chloride (0.9% Nacl (Sterile) Posiflush) 10 - 40 ml IV UD PRN PRN Reason: Port access or dressing change Last Admin: 09/30/19 11:24 Dose: 20 ml Documented by: Sodium Hypochlorite (Dakins Solution 0.25% (1/2 Strength)) 1 applic TOPICAL BID [facility]; Protocol Last Admin: 10/02/19 10:17 Dose: 1 applicatio Documented by: Tizanidine HCl (Zanaflex) 4 mg PO Q8H PRN PRN PRN Reason: SPASMS Last Admin: 09/29/19 20:46 Dose: 4 mg Documented by: Assessment/Plan This patient was seen in conjunction with Celeste Churchill NP. I have independently interviewed and examined the patient and reviewed pertinent historical, laboratory, and other data. Please refer to her note for patient's presentation, findings, and recommendations. Patient was seen and examined. Complains of severe pains in the ischial region. Pulled out PICC line; will be replaced. No other acute events overnight Vitals were reviewed -stable Physical Exam: Gen: Appears comfortable, not pale, not jaundiced, alert oriented x3 CVS:HS I +II, regular, no murmurs RESP: Diminished at lung bases, otherwise clinically clear to auscultation GI: BS present and normal, nontender, no palpable organs, colostomy bag has soft brown stools. EXT:No edema, bilateral goals dressing to both legs and right groin Labs reviewed: ASSESSMENT: 1. Acute gangrene of the right distal great, second toe with possible second toe osteomyelitis, 2. Chronic right and left ischial stage IV pressure injuries 3. Stage II sacral pressure injuries 4. Unchangeable heel eschars 5. Right groin wound status post I&D of right groin abscess 6. PAD, severe 7. Anal CA status post chemotherapy and radiation 8. COPD 9. Hypertension 10. Hyperlipidemia 11. Anemia, likely of chronic disease 12. Anxiety/depression 13. GERD Meds reviewed Plan: Continue on IV antibiotics - vancomycin and Unasyn Follow-up on CT of abdomen and pelvis with runoffs Follow-up on urine cultures Inpatient E&M: [id number] Subs Hosp L2
--- NOTE | 2019-10-02 12:19 | CT_ITS ---
STUDY: CTA OF THE ABDOMINAL AORTA AND BILATERAL LOWER EXTREMITIES REASON FOR EXAM: Male, 64 years old. RIGHT TOE NECROSIS OSTEOMYELITIS RADIATION DOSAGE (If Supplied By Facility): CTDIvol = ( 9.46 ) mGy, DLP = ( 1395.19 ) mGycm TECHNIQUE: Axial CT angiography multi-detector data acquisition was obtained from the lung bases to the toes following intravenous administration of 100 ML ISOVUE 370. Axial images and MIP images were reconstructed from the axial data set. Post-processing of the angiographic images was performed, with multiplanar reformation and 3D reconstruction. Individualized dose optimization techniques were used for this CT. TECHNICAL QUALITY: Good COMPARISON: 11/10/2016 Descriptors of Narrowing: None (0%) Mild (< 50%) Moderate (50-70%) Severe (70-90%) Subtotal/Total Occlusion (90-100%) Non-Evaluable (technically non-diagnostic FINDINGS: Abdominal aorta: There is mild diffuse narrowing. Celiac and superior mesenteric arteries: There is mild diffuse narrowing. Inferior mesenteric artery: No demonstrated narrowing. Right renal artery(arteries): No demonstrated narrowing. Left renal artery(arteries): Calcified plaque at the origin of the left renal artery producing a moderate (60%) stenosis. Right common iliac artery: There is moderate diffuse narrowing. Right external iliac artery: There is moderate diffuse narrowing. Right internal iliac artery: There is moderate diffuse narrowing. Left common iliac artery: There is moderate diffuse narrowing. Left external iliac artery: There is moderate diffuse narrowing. Left internal iliac artery: There is moderate diffuse narrowing. RIGHT LOWER EXTREMITY Right common femoral artery: There is severe diffuse narrowing. Right profundus femoris: There is moderate diffuse narrowing. Right superficial femoral: There is severe diffuse narrowing. Stent in the distal right superficial femoral artery appears patent but with significant intimal hyperplasia. Right popliteal artery: No demonstrated narrowing. Right tibioperoneal trunk: No demonstrated narrowing. Right anterior tibial artery: No demonstrated narrowing. Right posterior tibial artery: No demonstrated narrowing. Right peroneal artery: No demonstrated narrowing. LEFT LOWER EXTREMITY Left common femoral artery: There is mild diffuse narrowing. Left profundus femoris: There is moderate diffuse narrowing. Left superficial femoral: There is severe diffuse narrowing. Left popliteal artery: Obscured by streak artifact from the arthroplasty prosthesis Left tibioperoneal trunk: No demonstrated narrowing. Left anterior tibial artery: No demonstrated narrowing. Left posterior tibial artery: Occluded in the distal calf. Left peroneal artery: No demonstrated narrowing. CT/CTA Abd w/Runoff W/WO Contrast IMPRESSION: 1. Mild amount of peripheral calcified plaque within the distal abdominal aorta but no aortic stenosis or abdominal aortic aneurysm. 2. No chronic mesenteric ischemia. No right renal artery stenosis. Moderate (60%) stenosis left renal artery stenosis. 3. Moderately diseased iliac arteries and common femoral arteries. 4. Severely disease superficial femoral arteries bilaterally with a large amount calcified plaque. Short segment occlusions cannot be excluded. Mildly diseased popliteal arteries bilaterally. Three-vessel runoff on the right and two-vessel runoff on the left with an occluded left posterior tibial artery. Electronically Signed: Nicholas Covington MD at 14:51 EDT Tel , Service support ,
--- NOTE | 2019-10-02 12:27 | NURSING ---
pt to ct scan
--- NOTE | 2019-10-02 15:28 | PCM.PN.ID ---
Patient Problems: Active and Suspected Problems Toe necrosis (Acute) Gangrene of toe of right foot (Acute) Osteomyelitis of toe of right foot (Acute) Malnutrition (Suspected) Subjective: Sleepy today, no fever - Physical Exam Vitals/I&O's: Vital Signs Temp Pulse Resp BP Pulse Ox 98.7 F 61 16 111/48 L 93 10/02/19 14:21 10/02/19 14:21 10/02/19 14:21 10/02/19 14:21 10/02/19 14:21 Oxygen Flow Rate (L/min) 2 Oxygen Delivery Method Nasal Cannula Weight: 70.76 kg Body Mass Index (BMI) 24.4 Intake and Output for Last 24 Hours 09/30/19 10/01/19 10/02/19 23:59 23:59 23:59 Intake Total 3138.00 / 3138.00 1778.0 / 1778.0 994.50 / 994.50 Output Total 2450 / 2450 2600 / 2600 650 / 650 Balance 688.00 / 688.00 -822.0 / -822.0 344.50 / 344.50 General: No apparent distress Lungs: Clear to auscultation, Normal air movement Cardiovascular: Regular rate, Regular Rhythm Abdomen: Soft, Non Tender, Non-Distended Skin: No rashes Microbiology Past 72 Hours 10/01/19 Unknown Tissue - Buttock Gram Stain - Final 10/01/19 Unknown Tissue - Buttock Wound Culture - Preliminary Gram negative jesus 10/01/19 Unknown Bone - Buttock Gram Stain - Final 10/01/19 Unknown Bone - Buttock Wound Culture - Preliminary Gram negative jesus Gram negative jesus#2 10/01/19 Unknown Tissue - Buttock Gram Stain - Final 10/01/19 Unknown Tissue - Buttock Wound Culture - Preliminary Gram negative jesus Gram negative jesus#2 10/01/19 Unknown Bone - Buttock Gram Stain - Final 10/01/19 Unknown Bone - Buttock Wound Culture - Preliminary Gram negative jesus GNR Poss Pseudomonas sp 10/01/19 Unknown Tissue - Buttock Gram Stain - Final 10/01/19 Unknown Tissue - Buttock Wound Culture - Preliminary Gram negative jesus 10/01/19 Unknown Bone - Buttock Gram Stain - Final 10/01/19 Unknown Bone - Buttock Wound Culture - Preliminary Gram negative jesus Laboratory Results 10/02/19 05:06: WBC 10.7, RBC 3.68 L, Hgb 8.9 L, Hct 29.1 L, MCV 79.1 L, MCH 24.2 L, MCHC 30.6 L, RDW Std Deviation 53.2 H, RDW Coeff of Rosendo 18.6 H, Plt Count 422, MPV 8.0 10/02/19 05:06: Sodium 130 L, Potassium 5.0, Chloride 93 L, Carbon Dioxide 33.0 H, Anion Gap 4 L, BUN 22 H, Creatinine 0.62 L, Estim Creat Clear Calc 111.06, Est GFR (MDRD) Af Amer 166, Est GFR (MDRD) Non-Af 137, BUN/Creatinine Ratio 35.3 H, Glucose 98, Calcium 8.6, Prealbumin 14.1 L Current Medications Amlodipine Besylate (Norvasc) 5 mg PO DAILY [facility] Last Admin: 10/02/19 09:03 Dose: Not Given Documented by: Ascorbic Acid (Vitamin C) 500 mg PO DAILY@0800 [facility] Last Admin: 10/02/19 09:02 Dose: 500 mg Documented by: Bupropion HCl (Wellbutrin Xl) 300 mg PO DAILY [facility] Last Admin: 10/02/19 09:03 Dose: 300 mg Documented by: Buspirone HCl (Buspar) 5 mg PO TID [facility] Last Admin: 10/02/19 14:15 Dose: 5 mg Documented by: Diphenhydramine HCl (Benadryl) 25 mg PO BID PRN PRN PRN Reason: ITCHING Last Admin: 10/01/19 15:18 Dose: 25 mg Documented by: Doxazosin Mesylate (Cardura) 2 mg PO QHS [facility] Last Admin: 10/01/19 21:05 Dose: 2 mg Documented by: Ezetimibe (Zetia) 10 mg PO DAILY [facility] Last Admin: 10/02/19 09:09 Dose: 10 mg Documented by: Emollient Ointment (Eucerin Intensive Repair) 1 applic TOPICAL 4X/DAY PRN PRN; Protocol PRN Reason: ITCHING Enoxaparin Sodium (Lovenox) 40 mg SC DAILY [facility] Last Admin: 10/02/19 09:10 Dose: 40 mg Documented by: Escitalopram Oxalate (Lexapro) 10 mg PO DAILY [facility] Last Admin: 10/02/19 09:03 Dose: 10 mg Documented by: Ferrous Gluconate (Ferrous Gluconate) 324 mg PO 1200,1700 [facility] Last Admin: 10/02/19 11:22 Dose: 324 mg Documented by: Fluticasone Propionate (Flonase Nasal [place]) 2 spray NASAL DAILY [facility] Last Admin: 10/02/19 09:02 Dose: 2 spray Documented by: Gabapentin (Neurontin) 600 mg PO TIDCM [facility] Last Admin: 10/02/19 11:22 Dose: 600 mg Documented by: Heparin Sodium (Beef Lung) () 50 units IV UD PRN PRN Reason: PICC Line Heparin Flush Sodium Chloride () 250 mls @ 15 mls/hr IV .[id number] PRN PRN Reason: Saline Flush Last Infusion: 10/02/19 14:17 Dose: 0 mls/hr Documented by: Sodium Chloride () 250 mls @ 15 mls/hr IV .[id number] PRN PRN Reason: Additional IVPB Infusion Vancomycin HCl (Vancomycin) 1,000 mg in 200 mls @ 200 mls/hr IV Q12H [facility] Last Infusion: 10/02/19 09:17 Dose: Infused Documented by: Meropenem 1 gm/ Sodium (Chloride) 120 mls @ 33 mls/hr IV Q8 [facility] Last Admin: 10/02/19 14:13 Dose: 33 mls/hr Documented by: Metoprolol Tartrate (Lopressor (Beta Joo)) 50 mg PO BID [facility] Last Admin: 10/02/19 09:03 Dose: 50 mg Documented by: Morphine Sulfate () 4 mg IV Q3H PRN PRN PRN Reason: Pain Score 6-10/10 Last Admin: 10/02/19 11:17 Dose: 4 mg Documented by: Nutritional Formula (Lactose Free) (Ensure Enlive) 120 ml PO 4X/DAY [facility] Last Admin: 10/02/19 14:15 Dose: 120 ml Documented by: Nystatin (Mycostatin Powder) 1 applic TOPICAL TID [facility]; Protocol Last Admin: 10/02/19 14:16 Dose: Not Given Documented by: Ondansetron HCl (Zofran) 4 mg IV Q8H PRN PRN PRN Reason: NAUSEA/VOMITING Oxycodone HCl (Oxyir) 10 mg PO Q4H PRN PRN PRN Reason: Pain Score 1-10/10 Last Admin: 10/01/19 22:38 Dose: 10 mg Documented by: Oxycodone HCl (Oxycontin) 20 mg PO BID [facility] Last Admin: 10/02/19 09:09 Dose: 20 mg Documented by: Pantoprazole Sodium (Protonix) 20 mg PO DAILY [facility] Last Admin: 10/02/19 09:03 Dose: 20 mg Documented by: Polyethylene Glycol (Miralax) 17 gm PO BID [facility] Last Admin: 10/02/19 09:09 Dose: 17 gm Documented by: Sodium Chloride () 10 - 40 ml IV UD PRN PRN Reason: SALINE FLUSH Last Admin: 10/02/19 06:06 Dose: 10 ml Documented by: Sodium Chloride () 10 - 40 ml IV UD PRN PRN Reason: Open End PICC Flush Sodium Chloride (0.9% Nacl (Sterile) Posiflush) 10 - 40 ml IV UD PRN PRN Reason: Port access or dressing change Last Admin: 09/30/19 11:24 Dose: 20 ml Documented by: Sodium Hypochlorite (Dakins Solution 0.25% (1/2 Strength)) 1 applic TOPICAL BID [facility]; Protocol Last Admin: 10/02/19 10:17 Dose: 1 applicatio Documented by: Tizanidine HCl (Zanaflex) 4 mg PO Q8H PRN PRN PRN Reason: SPASMS Last Admin: 09/29/19 20:46 Dose: 4 mg Documented by: Medical Necessity - Tobacco Use Smoking Status: Former smoker Route of nutrition/ use of supplements: [] Nutritional Intake: [] IV Site: [] Walker Catheter: [] - Assessment/Plan Antibiotics: [] Assessment/Plan: [] Active and Suspected Problems Toe necrosis (Acute) Gangrene of toe of right foot (Acute) Osteomyelitis of toe of right foot (Acute) Malnutrition (Suspected) 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 On vanc/unasyn. Dr. Mesa and Dr. Palomares following. OR yesterday with Dr. Mesa. Surg cx with GNR. Prior growth of ESBL, so will change unasyn to yosi. Will follow
[2019-10-02 17:40] LABS: Base Excess 11 mmol/L (-2 to +2); Bicarbonate 36.1 mmol/L (22-26); PO2 63 mmHG (75-100); SO2 91 % (95-99); Total Carbon Dioxide 38 mmol/L
[2019-10-02 17:43] LABS: Blood Gas Specimen Type ART; SITE R RADIAL
[2019-10-02 17:44] LABS: Allen Test POS; O2 Delivery Device Nasal Can
[2019-10-02 20:30] LABS: Vancomycin, Trough Level 17.3 ug/mL (5.0-15.0)
--- NOTE | 2019-10-02 20:48 | PCM.RX.CS ---
Consult Pharmacy has been consulted to manage selected antiobiotic: Vancomycin Type of Consult: Follow-up Suspected Infection: Osteomyelitis Labs: Sodium 130 mmol/L (136-145) L 10/02/19 05:06 Potassium 5.0 mmol/L (3.5-5.1) 10/02/19 05:06 Chloride 93 mmol/L (98-107) L 10/02/19 05:06 Carbon Dioxide 33.0 mmol/L (21.0-32.0) H 10/02/19 05:06 Anion Gap 4 (5-15) L 10/02/19 05:06 BUN 22 mg/dL (7-18) H 10/02/19 05:06 Creatinine 0.62 mg/dL (0.70-1.30) L 10/02/19 05:06 Est GFR (MDRD) Af Amer 166 mL/min (>60) 10/02/19 05:06 Est GFR (MDRD) Non-Af 137 mL/min (>60) 10/02/19 05:06 BUN/Creatinine Ratio 35.3 RATIO (10-20) H 10/02/19 05:06 Glucose 98 mg/dL (74-106) 10/02/19 05:06 Vancomycin Trough 17.3 ug/mL (5.0-15.0) H 10/02/19 19:45 Microbiology: Microbiology 10/01/19 Unknown Tissue - Buttock Gram Stain - Final 10/01/19 Unknown Tissue - Buttock Wound Culture - Preliminary Gram negative jesus 10/01/19 Unknown Bone - Buttock Gram Stain - Final 10/01/19 Unknown Bone - Buttock Wound Culture - Preliminary Gram negative jesus Gram negative jesus#2 10/01/19 Unknown Tissue - Buttock Gram Stain - Final 10/01/19 Unknown Tissue - Buttock Wound Culture - Preliminary Gram negative jesus Gram negative jesus#2 10/01/19 Unknown Bone - Buttock Gram Stain - Final 10/01/19 Unknown Bone - Buttock Wound Culture - Preliminary Gram negative jesus GNR Poss Pseudomonas sp 10/01/19 Unknown Tissue - Buttock Gram Stain - Final 10/01/19 Unknown Tissue - Buttock Wound Culture - Preliminary Gram negative jesus 10/01/19 Unknown Bone - Buttock Gram Stain - Final 10/01/19 Unknown Bone - Buttock Wound Culture - Preliminary Gram negative jesus 09/27/19 06:58 Wound - Right Foot Gram Stain - Final 09/27/19 06:58 Wound - Right Foot Wound Culture - Final Meth. resistant Staph. aureus 09/27/19 06:58 Wound - Right Foot Anaerobic Culture - Final No anaerobic bacteria isolated. 09/26/19 18:00 Wound - Aerobic & Anaerobic Swabs Gram Stain - Final 09/26/19 18:00 Wound - Aerobic & Anaerobic Swabs Wound Culture - Final Meth. resistant Staph. aureus 09/26/19 18:00 Wound - Aerobic & Anaerobic Swabs Anaerobic Culture - Final No anaerobic bacteria isolated. Goal Trough: 15-20 mcg/mL Pharmacy Plan for Drug Dosing: VANCOMYCIN LEVEL RECEIVED Current Vancomycin Dose: 1000mg IV Q12hr Number of Doses Received: 11 Vancomycin Level: 17.3 Hours Since Last Dose: 11hrs Renal Function: 0.62 Renal Function Trend: stable Lab/Micro: non new Vancomycin Plan/Comments: Trough within goal of 15-20. Continue current dose and recheck a trough in 4 days to assess dosing at that time. Pending Level: 10/06/19 @1930 Pharmacy Service will continue to monitor and adjust dosing as required.
--- NOTE | 2019-10-02 21:48 | PCM.PN.SRG ---
Patient Problems: Active and Suspected Problems Toe necrosis (Acute) Gangrene of toe of right foot (Acute) Osteomyelitis of toe of right foot (Acute) Malnutrition (Suspected) Subjective: Postop #1 Patient is resting comfortably. - Physical Exam Vitals/I&O's: Vital Signs Temp Pulse Resp BP Pulse Ox 98.7 F 75 15 111/48 L 95 10/02/19 14:21 10/02/19 19:13 10/02/19 19:13 10/02/19 14:21 10/02/19 19:13 Oxygen Flow Rate (L/min) 2 Oxygen Delivery Method Nasal Cannula Weight: 155 lb 15.985 oz Body Mass Index (BMI) 24.4 Intake and Output for Last 24 Hours 09/30/19 10/01/19 10/02/19 23:59 23:59 23:59 Intake Total 3138.00 / 3138.00 1778.0 / 1778.0 1314.50 / 1314.50 Output Total 2450 / 2450 2600 / 2600 1250 / 1250 Balance 688.00 / 688.00 -822.0 / -822.0 64.50 / 64.50 General: Alert, Oriented x3 HEENT: PERRLA, EOMI Oral: Moist Mucosa Neck: Supple Abdomen: Soft, Non-Distended Skin: Ulcer/ Wound - bilateral ischial pressure sore wounds and sacral pressure sore wound are stable. No active bleeding seen. Redressed with Dakin's dressing changes. Neurological: Cranial nerves II-XII grossly intact Psych/Mental Status: Normal Affect, Appropriate Microbiology Past 72 Hours 10/01/19 Unknown Tissue - Buttock Gram Stain - Final 10/01/19 Unknown Tissue - Buttock Wound Culture - Preliminary Gram negative jesus 10/01/19 Unknown Bone - Buttock Gram Stain - Final 10/01/19 Unknown Bone - Buttock Wound Culture - Preliminary Gram negative jesus Gram negative jesus#2 10/01/19 Unknown Tissue - Buttock Gram Stain - Final 10/01/19 Unknown Tissue - Buttock Wound Culture - Preliminary Gram negative jesus Gram negative jesus#2 10/01/19 Unknown Bone - Buttock Gram Stain - Final 10/01/19 Unknown Bone - Buttock Wound Culture - Preliminary Gram negative jesus GNR Poss Pseudomonas sp 10/01/19 Unknown Tissue - Buttock Gram Stain - Final 10/01/19 Unknown Tissue - Buttock Wound Culture - Preliminary Gram negative jesus 10/01/19 Unknown Bone - Buttock Gram Stain - Final 10/01/19 Unknown Bone - Buttock Wound Culture - Preliminary Gram negative jesus Pathology - pending. Laboratory Results 10/02/19 05:06: WBC 10.7, RBC 3.68 L, Hgb 8.9 L, Hct 29.1 L, MCV 79.1 L, MCH 24.2 L, MCHC 30.6 L, RDW Std Deviation 53.2 H, RDW Coeff of Rosendo 18.6 H, Plt Count 422, MPV 8.0 10/02/19 05:06: Sodium 130 L, Potassium 5.0, Chloride 93 L, Carbon Dioxide 33.0 H, Anion Gap 4 L, BUN 22 H, Creatinine 0.62 L, Estim Creat Clear Calc 111.06, Est GFR (MDRD) Af Amer 166, Est GFR (MDRD) Non-Af 137, BUN/Creatinine Ratio 35.3 H, Glucose 98, Calcium 8.6, Prealbumin 14.1 L 10/02/19 17:29: Specimen Type ART, Sample Site R RADIAL, pH 7.40, Bicarbonate Actual 36.1 H, Total CO2 38, Base Excess 11 H, O2 Saturation 91 L, ABG pCO2 59.0 H, ABG pO2 63 L, Dariusz Test POS, O2 Delivery Device Nasal Can, Liter Flow 2.0 10/02/19 19:45: Vancomycin Trough 17.3 H Current Medications Amlodipine Besylate (Norvasc) 5 mg PO DAILY [facility] Last Admin: 10/02/19 09:03 Dose: Not Given Documented by: Ascorbic Acid (Vitamin C) 500 mg PO DAILY@0800 [facility] Last Admin: 10/02/19 09:02 Dose: 500 mg Documented by: Bupropion HCl (Wellbutrin Xl) 300 mg PO DAILY [facility] Last Admin: 10/02/19 09:03 Dose: 300 mg Documented by: Buspirone HCl (Buspar) 5 mg PO TID [facility] Last Admin: 10/02/19 14:15 Dose: 5 mg Documented by: Diphenhydramine HCl (Benadryl) 25 mg PO BID PRN PRN PRN Reason: ITCHING Last Admin: 10/01/19 15:18 Dose: 25 mg Documented by: Doxazosin Mesylate (Cardura) 2 mg PO QHS [facility] Last Admin: 10/01/19 21:05 Dose: 2 mg Documented by: Ezetimibe (Zetia) 10 mg PO DAILY [facility] Last Admin: 10/02/19 09:09 Dose: 10 mg Documented by: Emollient Ointment (Eucerin Intensive Repair) 1 applic TOPICAL 4X/DAY PRN PRN; Protocol PRN Reason: ITCHING Enoxaparin Sodium (Lovenox) 40 mg SC DAILY [facility] Last Admin: 10/02/19 09:10 Dose: 40 mg Documented by: Escitalopram Oxalate (Lexapro) 10 mg PO DAILY [facility] Last Admin: 10/02/19 09:03 Dose: 10 mg Documented by: Ferrous Gluconate (Ferrous Gluconate) 324 mg PO 1200,1700 [facility] Last Admin: 10/02/19 17:02 Dose: 324 mg Documented by: Fluticasone Propionate (Flonase Nasal [place]) 2 spray NASAL DAILY [facility] Last Admin: 10/02/19 09:02 Dose: 2 spray Documented by: Gabapentin (Neurontin) 600 mg PO TIDCM [facility] Last Admin: 10/02/19 17:02 Dose: 600 mg Documented by: Heparin Sodium (Beef Lung) () 50 units IV UD PRN PRN Reason: PICC Line Heparin Flush Sodium Chloride () 250 mls @ 15 mls/hr IV .[id number] PRN PRN Reason: Saline Flush Last Infusion: 10/02/19 17:58 Dose: 15 mls/hr Documented by: Sodium Chloride () 250 mls @ 15 mls/hr IV .[id number] PRN PRN Reason: Additional IVPB Infusion Vancomycin HCl (Vancomycin) 1,000 mg in 200 mls @ 200 mls/hr IV Q12H [facility] Last Admin: 10/02/19 21:00 Dose: 200 mls/hr Documented by: Meropenem 1 gm/ Sodium (Chloride) 120 mls @ 33 mls/hr IV Q8 [facility] Last Infusion: 10/02/19 17:58 Dose: Infused Documented by: Metoprolol Tartrate (Lopressor (Beta Joo)) 50 mg PO BID [facility] Last Admin: 10/02/19 09:03 Dose: 50 mg Documented by: Morphine Sulfate () 4 mg IV Q3H PRN PRN PRN Reason: Pain Score 6-10/10 Last Admin: 10/02/19 21:33 Dose: 4 mg Documented by: Nutritional Formula (Lactose Free) (Ensure Enlive) 120 ml PO 4X/DAY [facility] Last Admin: 10/02/19 17:02 Dose: 120 ml Documented by: Nystatin (Mycostatin Powder) 1 applic TOPICAL TID [facility]; Protocol Last Admin: 10/02/19 14:16 Dose: Not Given Documented by: Ondansetron HCl (Zofran) 4 mg IV Q8H PRN PRN PRN Reason: NAUSEA/VOMITING Oxycodone HCl (Oxyir) 10 mg PO Q4H PRN PRN PRN Reason: Pain Score 1-1010 Last Admin: 10/01/19 22:38 Dose: 10 mg Documented by: Oxycodone HCl (Oxycontin) 20 mg PO BID [facility] Last Admin: 10/02/19 09:09 Dose: 20 mg Documented by: Pantoprazole Sodium (Protonix) 20 mg PO DAILY [facility] Last Admin: 10/02/19 09:03 Dose: 20 mg Documented by: Polyethylene Glycol (Miralax) 17 gm PO BID [facility] Last Admin: 10/02/19 09:09 Dose: 17 gm Documented by: Sodium Chloride () 10 - 40 ml IV UD PRN PRN Reason: SALINE FLUSH Last Admin: 10/02/19 21:01 Dose: 10 ml Documented by: Sodium Chloride () 10 - 40 ml IV UD PRN PRN Reason: Open End PICC Flush Sodium Chloride (0.9% Nacl (Sterile) Posiflush) 10 - 40 ml IV UD PRN PRN Reason: Port access or dressing change Last Admin: 09/30/19 11:24 Dose: 20 ml Documented by: Sodium Hypochlorite (Dakins Solution 0.25% (1/2 Strength)) 1 applic TOPICAL BID [facility]; Protocol Last Admin: 10/02/19 10:17 Dose: 1 applicatio Documented by: Tizanidine HCl (Zanaflex) 4 mg PO Q8H PRN PRN PRN Reason: SPASMS Last Admin: 09/29/19 20:46 Dose: 4 mg Documented by: Medical Necessity - Tobacco Use Smoking Status: Former smoker Assessment/Plan All Active Problems Ulcer of right foot with necrosis of bone (Acute) Toe necrosis (Acute) Gangrene of toe of right foot (Acute) Osteomyelitis of toe of right foot (Acute) Abscess of right groin (Acute) Hyponatremia (Resolved) MRSA bacteremia (Resolved) 1. Right inguinal and proximal thigh abscess ulcer. 2. Recurrent right ischial pressure sore, Stage IV. 3. 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 4. Osteomyelitis. 5. MRSA. 6. Left ischial pressure sore, Stage IV. 7. History of anal CA treated with chemotherapy and radiation therapy. 8. Anemia of chronic disease. 9. Sacral pressure sore, Stage IV. Continue Dakin's dressing changes to the ulcers. Operative wound cultures show Gram negative rods and possible Pseudomonas. Continue Vancomycin for MRSA. The Unasyn was changed to Meropenem for the Gram negative rods. Pathology is pending. Prealbumin was 14.1. Encourage nutritional supplementation with protein to help the healing process. Podiatry has been consulted to evaluate his black toes on the right. 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 Vascular Surgery is evaluating. Had a discussion with the patient about these chronic ulcers. Since his mother , he has gotten more depressed and is sitting more which has led to a new onset left ischial pressure sore. With his poor nutrition and his depression, realistically these ulcers will not heal even with complex myocutaneous flaps in the future. I think he would be a good candidate for Palliative Care at this point. He states he will start the Palliative Care process once he returns to the [facility]. Will not debride the right inguinal and proximal thigh ulcer at this time. The femoral vasculature is located at the depth of the ulcer surrounded by scar tissue. If this ulcer were to worsen, then he would need to be evaluated at a tertiary center with Vascular Surgery assistance because of the probability of a vascular bypass that may be needed after a more aggressive operative debridement. His Hgb is 8.9. He received PRBC preoperatively. After discharge, followup at the [facility].
[2019-10-02] MEDS: Doxazosin 1 MG Tablet 2 MG PO (23:33)
[2019-10-03] VITALS (11 sets, daily range): BP systolic 100–128; BP diastolic 32–64; PULSE 71–86; RESP 12–18; TEMP 37.1–37.7; O2SAT 93–98
[2019-10-03] MEDS: oxyCODONE 5 MG Tablet 10 MG PO ×2 (01:24→09:21)
[2019-10-03] MEDS: 0.9% Saline Lock 10 ML Syringe IV ×3 (03:57→15:42)
[2019-10-03] MEDS: Morphine 4 MG/ML Syringe IV ×4 (03:57→15:42)
[2019-10-03 06:06] LABS: Hematocrit 26.8 % (40-54); Mean Corp Hgb Conc 29.9 g/dL (32-36); Mean Corpuscular Hgb 23.8 pg (27.0-32.0); Mean Corpuscular Volume 79.8 fL (80-94); Mean Platelet Vol. 7.9 fl (6.2-12.0); Platelet Count 366 K/mm3 (150-450); RBC Distribution Width CV 19.1 % (11.6-14.6); RBC Distribution Width SD 54.7 fl (35.1-43.9); Red Blood Count 3.36 M/mm3 (4.6-6.2); White Blood Count 11.2 K/mm3 (4.4-11.0)
[2019-10-03] MEDS: busPIRone 5 MG Tablet PO ×2 (06:28→13:16)
[2019-10-03 06:29] LABS: Anion Gap 1 (5-15); BUN 18 mg/dL (7-18); BUN/Creat Ratio 25.9 RATIO (10-20); Calcium,Total 8.7 mg/dL (8.5-10.1); Chloride 92 mmol/L (98-107); EST Glomerular Filtration Rate 121 mL/min (>60); Est Glom Filt Rate - Afr Amer 146 mL/min (>60); Estimated Creatinine Clearance 98.36 ml/min; Glucose 113 mg/dL (74-106); Potassium 4.2 mmol/L (3.5-5.1); Sodium Level 128 mmol/L (136-145)
[2019-10-03] MEDS: Nystatin Powder 15gm Bottle 1 APPLIC TOPICAL (06:31)
[2019-10-03] MEDS: Vancomycin IV 1,000 MG/200 ML BAG 200 MG IV (07:51)
[2019-10-03] MEDS: Gabapentin 600 MG Tablet PO ×2 (07:57→11:35)
[2019-10-03] MEDS: Ascorbic Acid 500 MG Tablet PO (07:58)
[2019-10-03] MEDS: Enoxaparin 40 MG/0.4 ML Syringe SC (09:13)
[2019-10-03] MEDS: Polyethylene Glycol 3350 17 GM PACKET PO (09:13)
[2019-10-03] MEDS: Escitalopram Oxalate 10 MG Tablet PO (09:14)
[2019-10-03] MEDS: Metoprolol Tartrate 50 MG Tablet PO (09:14)
[2019-10-03] MEDS: Pantoprazole Sodium 20 MG Tablet PO (09:14)
[2019-10-03] MEDS: Ezetimibe 10 MG Tablet PO (09:14)
[2019-10-03] MEDS: Fluticasone 0.05% 1 SPRAY NASAL.SRY 2 SPRAY NASAL (09:15)
[2019-10-03] MEDS: buPROPion (XL) 300 MG TABLET.XL PO (09:16)
--- NOTE | 2019-10-03 10:24 | PCM.PN.ID ---
Patient Problems: Active and Suspected Problems Toe necrosis (Acute) Gangrene of toe of right foot (Acute) Osteomyelitis of toe of right foot (Acute) Malnutrition (Suspected) Subjective: Still with pain, otherwise improving. No fever. - Physical Exam Vitals/I&O's: Vital Signs Temp Pulse Resp BP Pulse Ox 99 F 71 16 111/49 L 94 10/03/19 09:37 10/03/19 09:37 10/03/19 09:37 10/03/19 09:37 10/03/19 09:37 Oxygen Flow Rate (L/min) 2 Oxygen Delivery Method Room Air Weight: 70.76 kg Body Mass Index (BMI) 24.4 Intake and Output for Last 24 Hours 10/01/19 10/02/19 10/03/19 23:59 23:59 23:59 Intake Total 1778.0 / 1778.0 1314.50 / 1674.50 1587.5 / 1587.5 Output Total 2600 / 2600 1250 / 1950 700 / 700 Balance -822.0 / -822.0 64.50 / -275.50 887.5 / 887.5 General: Alert, Cooperative, No apparent distress Lungs: Clear to auscultation, Normal air movement Cardiovascular: Regular rate, Regular Rhythm Abdomen: Soft, Non Tender, Non-Distended Skin: Ulcer/ Wound Microbiology Past 72 Hours 10/01/19 Unknown Tissue - Buttock Gram Stain - Final 10/01/19 Unknown Tissue - Buttock Wound Culture - Preliminary Gram negative jesus Gram negative jesus#2 10/01/19 Unknown Bone - Buttock Gram Stain - Final 10/01/19 Unknown Bone - Buttock Wound Culture - Preliminary Gram negative jesus Gram negative jesus#2 10/01/19 Unknown Tissue - Buttock Gram Stain - Final 10/01/19 Unknown Tissue - Buttock Wound Culture - Preliminary Gram negative jesus Gram negative jesus#2 10/01/19 Unknown Bone - Buttock Gram Stain - Final 10/01/19 Unknown Bone - Buttock Wound Culture - Preliminary Gram negative jesus GNR Poss Pseudomonas sp 10/01/19 Unknown Tissue - Buttock Gram Stain - Final 10/01/19 Unknown Tissue - Buttock Wound Culture - Preliminary GNR Poss Pseudomonas sp Gram negative jesus 10/01/19 Unknown Bone - Buttock Gram Stain - Final 10/01/19 Unknown Bone - Buttock Wound Culture - Preliminary Gram negative jesus Gram negative jesus#2 Laboratory Results 10/02/19 17:29: Specimen Type ART, Sample Site R RADIAL, pH 7.40, Bicarbonate Actual 36.1 H, Total CO2 38, Base Excess 11 H, O2 Saturation 91 L, ABG pCO2 59.0 H, ABG pO2 63 L, Dariusz Test POS, O2 Delivery Device Nasal Can, Liter Flow 2.0 10/02/19 19:45: Vancomycin Trough 17.3 H 10/03/19 05:30: WBC 11.2 H, RBC 3.36 L, Hgb 8.0 L, Hct 26.8 L, MCV 79.8 L, MCH 23.8 L, MCHC 29.9 L, RDW Std Deviation 54.7 H, RDW Coeff of Rosendo 19.1 H, Plt Count 366, MPV 7.9 10/03/19 05:30: Sodium 128 L, Potassium 4.2, Chloride 92 L, Carbon Dioxide 35.0 H, Anion Gap 1 L, BUN 18, Creatinine 0.70, Estim Creat Clear Calc 98.36, Est GFR (MDRD) Af Amer 146, Est GFR (MDRD) Non-Af 121, BUN/Creatinine Ratio 25.9 H, Glucose 113 H, Calcium 8.7 Current Medications Amlodipine Besylate (Norvasc) 5 mg PO DAILY [facility] Last Admin: 10/03/19 09:14 Dose: Not Given Documented by: Ascorbic Acid (Vitamin C) 500 mg PO DAILY@0800 [facility] Last Admin: 10/03/19 07:58 Dose: 500 mg Documented by: Bupropion HCl (Wellbutrin Xl) 300 mg PO DAILY [facility] Last Admin: 10/03/19 09:16 Dose: 300 mg Documented by: Buspirone HCl (Buspar) 5 mg PO TID [facility] Last Admin: 10/03/19 06:28 Dose: 5 mg Documented by: Diphenhydramine HCl (Benadryl) 25 mg PO BID PRN PRN PRN Reason: ITCHING Last Admin: 10/01/19 15:18 Dose: 25 mg Documented by: Doxazosin Mesylate (Cardura) 2 mg PO QHS [facility] Last Admin: 10/02/19 23:33 Dose: 2 mg Documented by: Ezetimibe (Zetia) 10 mg PO DAILY [facility] Last Admin: 10/03/19 09:14 Dose: 10 mg Documented by: Emollient Ointment (Eucerin Intensive Repair) 1 applic TOPICAL 4X/DAY PRN PRN; Protocol PRN Reason: ITCHING Enoxaparin Sodium (Lovenox) 40 mg SC DAILY [facility] Last Admin: 10/03/19 09:13 Dose: 40 mg Documented by: Escitalopram Oxalate (Lexapro) 10 mg PO DAILY [facility] Last Admin: 10/03/19 09:14 Dose: 10 mg Documented by: Ferrous Gluconate (Ferrous Gluconate) 324 mg PO 1200,1700 [facility] Last Admin: 10/02/19 17:02 Dose: 324 mg Documented by: Fluticasone Propionate (Flonase Nasal [place]) 2 spray NASAL DAILY [facility] Last Admin: 10/03/19 09:15 Dose: 2 spray Documented by: Gabapentin (Neurontin) 600 mg PO TIDCM [facility] Last Admin: 10/03/19 07:57 Dose: 600 mg Documented by: Heparin Sodium (Beef Lung) () 50 units IV UD PRN PRN Reason: PICC Line Heparin Flush Sodium Chloride () 250 mls @ 15 mls/hr IV .[id number] PRN PRN Reason: Saline Flush Last Infusion: 10/03/19 10:09 Dose: 15 mls/hr Documented by: Sodium Chloride () 250 mls @ 15 mls/hr IV .[id number] PRN PRN Reason: Additional IVPB Infusion Vancomycin HCl (Vancomycin) 1,000 mg in 200 mls @ 200 mls/hr IV Q12H [facility] Last Infusion: 10/03/19 08:52 Dose: Infused Documented by: Meropenem 1 gm/ Sodium (Chloride) 120 mls @ 33 mls/hr IV Q8 [facility] Last Infusion: 10/03/19 10:08 Dose: Infused Documented by: Metoprolol Tartrate (Lopressor (Beta Joo)) 50 mg PO BID [facility] Last Admin: 10/03/19 09:14 Dose: 50 mg Documented by: Morphine Sulfate () 4 mg IV Q3H PRN PRN PRN Reason: Pain Score 6-10/10 Last Admin: 10/03/19 07:54 Dose: 4 mg Documented by: Nutritional Formula (Lactose Free) (Ensure Enlive) 120 ml PO 4X/DAY [facility] Last Admin: 10/03/19 09:13 Dose: 120 ml Documented by: Nystatin (Mycostatin Powder) 1 applic TOPICAL TID [facility]; Protocol Last Admin: 10/03/19 06:31 Dose: 1 applicatio Documented by: Ondansetron HCl (Zofran) 4 mg IV Q8H PRN PRN PRN Reason: NAUSEA/VOMITING Oxycodone HCl (Oxyir) 10 mg PO Q4H PRN PRN PRN Reason: Pain Score 1-10/10 Last Admin: 10/03/19 09:21 Dose: 10 mg Documented by: Oxycodone HCl (Oxycontin) 20 mg PO BID [facility] Last Admin: 10/03/19 09:14 Dose: 20 mg Documented by: Pantoprazole Sodium (Protonix) 20 mg PO DAILY [facility] Last Admin: 10/03/19 09:14 Dose: 20 mg Documented by: Polyethylene Glycol (Miralax) 17 gm PO BID [facility] Last Admin: 10/03/19 09:13 Dose: 17 gm Documented by: Sodium Chloride () 10 - 40 ml IV UD PRN PRN Reason: SALINE FLUSH Last Admin: 10/03/19 07:57 Dose: 10 ml Documented by: Sodium Chloride () 10 - 40 ml IV UD PRN PRN Reason: Open End PICC Flush Sodium Chloride (0.9% Nacl (Sterile) Posiflush) 10 - 40 ml IV UD PRN PRN Reason: Port access or dressing change Last Admin: 09/30/19 11:24 Dose: 20 ml Documented by: Sodium Hypochlorite (Dakins Solution 0.25% (1/2 Strength)) 1 applic TOPICAL BID [facility]; Protocol Last Admin: 10/02/19 23:47 Dose: 1 applicatio Documented by: Tizanidine HCl (Zanaflex) 4 mg PO Q8H PRN PRN PRN Reason: SPASMS Last Admin: 09/29/19 20:46 Dose: 4 mg Documented by: Medical Necessity - Tobacco Use Smoking Status: Former smoker Route of nutrition/ use of supplements: [] Nutritional Intake: [] IV Site: [] Walker Catheter: [] - Assessment/Plan Antibiotics: [] Assessment/Plan: [] Active and Suspected Problems Toe necrosis (Acute) Gangrene of toe of right foot (Acute) Osteomyelitis of toe of right foot (Acute) Malnutrition (Suspected) 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 On vanc/yosi. Dr. Mesa and Dr. Palomares following. OR 09/[address] Mesa. Surg cx with GNRs. Prior growth of ESBL, 10/01 changed unasyn to yosi. Will follow
[2019-10-03] MEDS: DAKIN'S SOL HALF STRENGTH (=0.25%) 1 APPLIC TOPICAL (10:35)
--- NOTE | 2019-10-03 11:01 | CASEMGMT ---
Addendum entered by Caroline Og 10/03/19 15:17: SHAHANA received call from Tala at [facility] stating pre-cert has been obtained and pt can discharge to [facility] today. SHAHANA updated PA. SHAHANA faxed completed discharge paperwork to [facility] including transfer to extended care facility, signed medication list, any scripts, and COVID screening tool. Original in SNF folder and copy on pt's chart. [facility] and arranged [facility] via [facility] for 4:00pm. Transportation form completed and placed on SNF folder and copy on pt's chart. SHAHANA updated RN on transportation time. SHAHANA placed a call to Nikolski at [facility] and left message regarding transportation time. SW updated pt on discharge and transportation time. SHAHANA placed a call to [facility] and left message to update that pt will be discharged back to [facility] today. Plan: Return to [facility] today [facility] at 4:00pm ANGEL Felipe Original Note: Social Work Note Pt is medically cleared for discharge today. SW waiting for pre-cert. SHAHANA placed a call to Tala at [facility] and left message that pt is medically ready for discharge and to let this worker know when pre-cert is obtained. SHAHANA faxed updated clinicals to [facility]. Plan: Return to [facility] pending pre-cert Caroline FELIX, ANGEL
--- NOTE | 2019-10-03 11:12 | RAD_ITS ---
STUDY: X-RAY CHEST REASON FOR EXAM: Male, 64 years old. cough TECHNIQUE: PA and lateral views of the chest. COMPARISON: 02/13/2019 FINDINGS: The lungs are clear and expanded. There is no demonstrated pleural abnormality. Normal size heart. Normal mediastinum and andrea. Normal visualized pulmonary arteries. Normal visualized aortic arch and descending thoracic aorta. Normal visualized thoracic spine. Normal visualized ribs, clavicles, and shoulders. There is no demonstrated abnormality of the visualized soft tissue structures of the upper abdomen. RAD/Chest PA and Lateral IMPRESSION: Normal x-ray examination of the chest. Electronically Signed: Nicholas Covington MD at 11:38 EDT Tel , Service support ,
[2019-10-03] MEDS: Ferrous Gluconate 324 MG Tablet PO (11:35)
--- NOTE | 2019-10-03 11:55 | TREXTCA.CO_ITS ---
- Diet 10/01/19 12:09 Diet: Regular Diet Type of Dietary Supplement:: Chuy ([place]) Is pt able to select menu?: Yes Diet Comments: 1 packet flavored Chuy w/ breakfast and dinner - Routine Orders/Code Status Suppository Type: Dulcolax 10mg Suppository Frequency: Daily PRN O2 Frequency: PRN Keep PO Greater than or Equal to (%): 89 Routine Lab Work: CBC - weekly, BMP - weekly, - - LFTs weekly, routine vancomycin troughs and ESR. Code Status: Full Code - Wound(s) right great toe Wound Type: Stasis Ulcer right second toe Wound Type: Stasis Ulcer Right Heel Wound Type: Surgical Incision Left Heel Wound Type: Stasis Ulcer Right Ishium Wound Type: Surgical Incision Left Ishium Wound Type: Surgical Incision Sacrum Wound Type: Surgical Incision Right Groin Wound Type: Surgical Incision - Therapies Physical Therapy: Eval and Treat Occupational Therapy: Eval and Treat - Problem/Diagnosis (1) Gangrene of toe of right foot Status: Acute Current Visit: Yes (2) Toe necrosis Status: Acute Current Visit: Yes (3) Ulcer of right foot with necrosis of bone Status: Acute Current Visit: No (4) Sacral pressure ulcer Status: Acute Current Visit: No (5) Pressure ulcer, heel, right, unstageable Status: Chronic Current Visit: No (6) Decubitus ulcer of left heel, stage 4 Status: Chronic Current Visit: No (7) Pressure ulcer of toe of right foot Status: Chronic Current Visit: No (8) Osteomyelitis of toe of right foot Status: Acute Current Visit: Yes (9) Peripheral vascular disease Status: Chronic Current Visit: Yes (10) Unstageable pressure ulcer of left heel Status: Chronic Current Visit: Yes (11) Malnutrition Status: Suspected Current Visit: Yes (12) Non-healing open wound of right groin Status: Chronic Current Visit: No (13) Abscess of right groin Status: Acute Current Visit: No (14) Skin necrosis Status: Chronic Current Visit: No (15) Pressure sore of left ischium, stage 4 Status: Chronic Current Visit: No (16) Candidal skin infection Status: Chronic Current Visit: No (17) Chronic osteomyelitis of right pelvic region Status: Chronic Current Visit: No (18) Infection and inflammatory reaction due to internal left knee prosthesis, initial encounter Status: Chronic Current Visit: No (19) History of total left knee replacement Status: Chronic Current Visit: No (20) Skin ulcer of left thigh with fat layer exposed Status: Chronic Current Visit: No (21) Pressure ulcer of right buttock, stage 3 Status: Chronic Current Visit: No (22) Skin ulcer of elbow with fat layer exposed Status: Chronic Current Visit: No (23) Decubitus ulcer of left heel, stage 2 Status: Chronic Current Visit: No (24) Debility Status: Chronic Current Visit: No (25) Personal history of Methicillin resistant Staphylococcus aureus infection Status: Chronic Current Visit: No (26) Acute osteomyelitis of right pelvic region Status: Chronic Current Visit: No (27) History of anal cancer Status: Chronic Current Visit: No (28) Late effect of radiation Status: Chronic Comment: right ischial area Current Visit: No (29) Right ischial pressure sore, stage 4 Status: Chronic Current Visit: No (30) Soft tissue radionecrosis Status: Chronic Current Visit: No (31) Anal cancer Status: Chronic Current Visit: No (32) Hepatitis C carrier Status: Chronic Current Visit: No (33) COPD (chronic obstructive pulmonary disease) Status: Chronic Current Visit: No (34) Anxiety and depression Status: Chronic Current Visit: No (35) HTN (hypertension) Status: Chronic Current Visit: No (36) HLD (hyperlipidemia) Status: Chronic Current Visit: No (37) GERD (gastroesophageal reflux disease) Status: Chronic Current Visit: No (38) PAD (peripheral artery disease) Status: Chronic Current Visit: No (39) Abscess, gluteal, right Status: Inactive Comment: Pseudomonas, MSSA, B.frag Current Visit: No - Allergies/Procedures Done in Hospital Allergies/Adverse Reactions: Allergies chlorthalidone Allergy (Verified 09/26/19 10:56) Other famotidine Allergy (Verified 09/26/19 10:56) Unknown povidone-iodine [From Betadine] Allergy (Verified 09/26/19 10:56) Hives soap Adverse Reaction (Verified 09/26/19 10:56) Hives [id number]-[id number] Reductase Inhibitor Adverse Reaction (Verified 09/26/19 10:56) MESSED MY LIVER UP adhesive tape Allergy (Uncoded 08/12/19 16:20) Itching/rash Procedures: None - Type of Care/Length of Stay Estimated LOS: Convalescent Care Less Than 30 days Type of Care Needed: Skilled Rehab Potential: Fair Prognosis: Fair - Additional Orders/Day of Discharge Day of Discharge: 10/03/19 - Dietary and Speech Recommendations Dietitian Recommendations/Changes: Recommend regular diet as tolerated after surgery. Will continue Ensure Enlive 4x/day and Beneprotein w/ meals. Will provide flavored Chuy from kitchen BID. - Follow Up Care Primary Care Physician: Winnie Gonzales MD [Primary Care Provider] - Please follow up with your Primary Care Physician in: 2 weeks Please Follow Up With: Naomi Palomares DPM When: 1-2 weeks Please Follow Up With: Eddie Samuels MD When: 2 weeks Please Follow Up With: Venkat Mesa MD When: 1 week
--- NOTE | 2019-10-03 13:14 | PCM.DC.SUM ---
<Mohit Moya - Last Filed: 10/03/19 13:14> Discharge Date and Diagnosis Date of Admission: 09/26/19 Date of Discharge: 10/03/19 - Primary Discharge Diagnosis Acute Problems: Active Problems Right foot gangrene Recurrent osteomyelitis of ischial pressure injuries-MRSA Severe PAD Recent right groin abscess, healing Suspected Problems: Suspected Problems Malnutrition (Suspected) - Secondary Discharge Diagnosis Chronic Problems: Chronic Problems Pressure ulcer, heel, right, unstageable (Chronic) Decubitus ulcer of left heel, stage 4 (Chronic) Pressure ulcer of toe of right foot (Chronic) Peripheral vascular disease (Chronic) Unstageable pressure ulcer of right heel (Chronic) Unstageable pressure ulcer of left heel (Chronic) Non-healing open wound of right groin (Chronic) Skin necrosis (Chronic) Pressure sore of left ischium, stage 4 (Chronic) Candidal skin infection (Chronic) 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) Infection and inflammatory reaction due to internal left knee prosthesis, initial encounter (Chronic) History of total left knee replacement (Chronic) Skin ulcer of left thigh with fat layer exposed (Chronic) Pressure ulcer of right buttock, stage 3 (Chronic) Skin ulcer of elbow with fat layer exposed (Chronic) Decubitus ulcer of left heel, stage 2 (Chronic) Debility (Chronic) Personal history of Methicillin resistant Staphylococcus aureus infection (Chronic) Acute osteomyelitis of right pelvic region (Chronic) History of anal cancer (Chronic) 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 Mild degree of degenerative changes at the first metatarsal phalangeal joint. Question old avulsion fracture of the cuboid bone. LISBETH: Indices The right ankle brachial index by the dorsalis pedis is 0.67. The right ankle brachial index by the posterior tibial artery is 0.07. The left ankle brachial index by the dorsalis pedis is 0.58. The left ankle brachial index by the posterior tibial artery is 0.50. Interpretation Summary Moderately severe bilateral lower extremity arterial occlusive disease based upon ankle-brachial indices. Doppler waveforms are monophasic of bilateral posterior tibial and dorsalis pedis vessels suggesting a potential more severe level of disease. Volume pulse recording toe pressures on the right not able to be obtained and flatline on the left suspicious for multisegmental disease or severe distal small vessel disease. CT/CTA Abd w/Runoff W/WO Contrast IMPRESSION: 1. Mild amount of peripheral calcified plaque within the distal abdominal aorta but no aortic stenosis or abdominal aortic aneurysm. 2. No chronic mesenteric ischemia. No right renal artery stenosis. Moderate (60%) stenosis left renal artery stenosis. 3. Moderately diseased iliac arteries and common femoral arteries. 4. Severely disease superficial femoral arteries bilaterally with a large amount calcified plaque. Short segment occlusions cannot be excluded. Mildly diseased popliteal arteries bilaterally. Three-vessel runoff on the right and two-vessel runoff on the left with an occluded left posterior tibial artery. RAD/Chest PA and Lateral IMPRESSION: Normal x-ray examination of the chest. Consults: Podiatry - [facility] - [employer] - [facility] Infectious disease - [facility] Operations: - - October 01, 2019, excision recurrent right ischial pressure sore stage IV, partial ostectomy for osteomyelitis, excision left ischial pressure sore, stage IV, partial ostectomy for osteomyelitis, excision sacral pressure sore stage IV, partial ostectomy for osteomyelitis. 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 It had been progressively worsening for about 2 weeks, and also worsening of his chronic right and left ischial stage IV pressure injuries. On presentation he had no fever, no leukocytosis. An LISBETH was obtained which demonstrated significant PAD. X-ray of the foot demonstrated soft tissue swelling overlying the great toe. Podiatry was consulted for his feet, Dr. Mesa was consulted for his ischial wounds. Bedside debridement was performed of his feet, there felt to be gangrenous by podiatry who recommended addressing his arterial disease and possible intervention after this admission. For his ischial wounds, these appeared consistent with underlying osteomyelitis therefore he was taken to the operating room on September [address] Mesa. These were debrided and underwent partial ostectomy's with bone biopsy. Cultures were consistent with MRSA and gram-negative rods possible Pseudomonas. Infectious disease was consulted. The patient was treated with vancomycin and meropenem, and infectious disease recommends 6 more weeks of IV antibiotics. Dr. Samuels was consulted for vascular who recommended a CT of the abdomen with runoff studies which did demonstrate significant peripheral arterial disease. He plans on seeing the patient in 2 weeks in the office to obtain further arteriograms in order to plan for another intervention to correct his underlying arterial disease. The patient remains significantly debilitated and requires placement in senior living at this time. He was discharged to senior living in stable condition. He will need weekly CBCs, BMPs, routine vancomycin troughs, and routine sed rates. He will need follow-up with Dr. Mesa in the next 1 to 2 weeks, podiatry in 2 weeks, Dr. Samuels in 2 weeks, his PCP as needed. This patient was seen by Mohit Moya PA-C under the supervision of Doctor Garcia. [] - Physical Exam Vitals/I&O's: Vital Signs Temp Pulse Resp BP Pulse Ox 98.8 F 86 16 108/32 L 95 10/03/19 11:55 10/03/19 12:51 10/03/19 11:55 10/03/19 11:55 10/03/19 11:55 Oxygen Flow Rate (L/min) 2 Oxygen Delivery Method Nasal Cannula Weight: 155 lb 15.985 oz Body Mass Index (BMI) 24.4 Intake and Output for Last 24 Hours 10/01/19 10/02/19 10/03/19 23:59 23:59 23:59 Intake Total 1778.0 / 1778.0 1314.50 / 1674.50 1887.5 / 1887.5 Output Total 2600 / 2600 1250 / 1950 2900 / 2900 Balance -822.0 / -822.0 64.50 / -275.50 -1012.5 / -1012.5 General: Alert, Oriented x3, Cooperative HEENT: Atraumatic, PERRLA, EOMI, Normocephalic Neck: Supple, No JVD, Negative Carotid Bruits Lungs: Clear to auscultation, Diminished Cardiovascular: Regular rate, No murmurs Abdomen: Bowel Sounds Present, Soft, Non Tender Extremities: No edema, Capillary Refill Less than 3 Seconds Skin: No rashes, No breakdown Musculoskeletal: No Tenderness to Palpation of Joints or Extremities Neurological: Cranial nerves II-XII grossly intact Psych/Mental Status: Normal Affect, Appropriate, Alert and oriented to time, place, person, mood and affect Microbiology Past 72 Hours 10/01/19 Unknown Tissue - Buttock Gram Stain - Final 10/01/19 Unknown Tissue - Buttock Wound Culture - Preliminary Gram negative jesus Gram negative jesus#2 10/01/19 Unknown Bone - Buttock Gram Stain - Final 10/01/19 Unknown Bone - Buttock Wound Culture - Preliminary Gram negative jesus Gram negative jesus#2 10/01/19 Unknown Tissue - Buttock Gram Stain - Final 10/01/19 Unknown Tissue - Buttock Wound Culture - Preliminary Gram negative jesus Gram negative jesus#2 10/01/19 Unknown Bone - Buttock Gram Stain - Final 10/01/19 Unknown Bone - Buttock Wound Culture - Preliminary Gram negative jesus GNR Poss Pseudomonas sp 10/01/19 Unknown Tissue - Buttock Gram Stain - Final 10/01/19 Unknown Tissue - Buttock Wound Culture - Preliminary GNR Poss Pseudomonas sp Gram negative jesus 10/01/19 Unknown Bone - Buttock Gram Stain - Final 10/01/19 Unknown Bone - Buttock Wound Culture - Preliminary Gram negative jesus Gram negative jesus#2 Laboratory Results 10/02/19 17:29: Specimen Type ART, Sample Site R RADIAL, pH 7.40, Bicarbonate Actual 36.1 H, Total CO2 38, Base Excess 11 H, O2 Saturation 91 L, ABG pCO2 59.0 H, ABG pO2 63 L, Dariusz Test POS, O2 Delivery Device Nasal Can, Liter Flow 2.0 10/02/19 19:45: Vancomycin Trough 17.3 H 10/03/19 05:30: WBC 11.2 H, RBC 3.36 L, Hgb 8.0 L, Hct 26.8 L, MCV 79.8 L, MCH 23.8 L, MCHC 29.9 L, RDW Std Deviation 54.7 H, RDW Coeff of Rosendo 19.1 H, Plt Count 366, MPV 7.9 10/03/19 05:30: Sodium 128 L, Potassium 4.2, Chloride 92 L, Carbon Dioxide 35.0 H, Anion Gap 1 L, BUN 18, Creatinine 0.70, Estim Creat Clear Calc 98.36, Est GFR (MDRD) Af Amer 146, Est GFR (MDRD) Non-Af 121, BUN/Creatinine Ratio 25.9 H, Glucose 113 H, Calcium 8.7 Current Medications Amlodipine Besylate (Norvasc) 5 mg PO DAILY [facility] Last Admin: 10/03/19 09:14 Dose: Not Given Documented by: Ascorbic Acid (Vitamin C) 500 mg PO DAILY@0800 [facility] Last Admin: 10/03/19 07:58 Dose: 500 mg Documented by: Bupropion HCl (Wellbutrin Xl) 300 mg PO DAILY [facility] Last Admin: 10/03/19 09:16 Dose: 300 mg Documented by: Buspirone HCl (Buspar) 5 mg PO TID [facility] Last Admin: 10/03/19 06:28 Dose: 5 mg Documented by: Diphenhydramine HCl (Benadryl) 25 mg PO BID PRN PRN PRN Reason: ITCHING Last Admin: 10/01/19 15:18 Dose: 25 mg Documented by: Doxazosin Mesylate (Cardura) 2 mg PO QHS [facility] Last Admin: 10/02/19 23:33 Dose: 2 mg Documented by: Ezetimibe (Zetia) 10 mg PO DAILY [facility] Last Admin: 10/03/19 09:14 Dose: 10 mg Documented by: Emollient Ointment (Eucerin Intensive Repair) 1 applic TOPICAL 4X/DAY PRN PRN; Protocol PRN Reason: ITCHING Enoxaparin Sodium (Lovenox) 40 mg SC DAILY [facility] Last Admin: 10/03/19 09:13 Dose: 40 mg Documented by: Escitalopram Oxalate (Lexapro) 10 mg PO DAILY [facility] Last Admin: 10/03/19 09:14 Dose: 10 mg Documented by: Ferrous Gluconate (Ferrous Gluconate) 324 mg PO 1200,1700 [facility] Last Admin: 10/03/19 11:35 Dose: 324 mg Documented by: Fluticasone Propionate (Flonase Nasal Davis) 2 spray NASAL DAILY [facility] Last Admin: 10/03/19 09:15 Dose: 2 spray Documented by: Gabapentin (Neurontin) 600 mg PO TIDCM [facility] Last Admin: 10/03/19 11:35 Dose: 600 mg Documented by: Heparin Sodium (Beef Lung) () 50 units IV UD PRN PRN Reason: PICC Line Heparin Flush Sodium Chloride () 250 mls @ 15 mls/hr IV .[id number] PRN PRN Reason: Saline Flush Last Infusion: 10/03/19 10:09 Dose: 15 mls/hr Documented by: Sodium Chloride () 250 mls @ 15 mls/hr IV .[id number] PRN PRN Reason: Additional IVPB Infusion Vancomycin HCl (Vancomycin) 1,000 mg in 200 mls @ 200 mls/hr IV Q12H [facility] Last Infusion: 10/03/19 08:52 Dose: Infused Documented by: Meropenem 1 gm/ Sodium (Chloride) 120 mls @ 33 mls/hr IV Q8 [facility] Last Infusion: 10/03/19 10:08 Dose: Infused Documented by: Metoprolol Tartrate (Lopressor (Beta Joo)) 50 mg PO BID [facility] Last Admin: 10/03/19 09:14 Dose: 50 mg Documented by: Morphine Sulfate () 4 mg IV Q3H PRN PRN PRN Reason: Pain Score 6-10/10 Last Admin: 10/03/19 07:54 Dose: 4 mg Documented by: Nutritional Formula (Lactose Free) (Ensure Enlive) 120 ml PO 4X/DAY [facility] Last Admin: 10/03/19 09:13 Dose: 120 ml Documented by: Nystatin (Mycostatin Powder) 1 applic TOPICAL TID [facility]; Protocol Last Admin: 10/03/19 06:31 Dose: 1 applicatio Documented by: Ondansetron HCl (Zofran) 4 mg IV Q8H PRN PRN PRN Reason: NAUSEA/VOMITING Oxycodone HCl (Oxycontin) 20 mg PO BID [facility] Last Admin: 10/03/19 09:14 Dose: 20 mg Documented by: Oxycodone HCl (Oxyir) 5 mg PO Q4H PRN PRN PRN Reason: Pain Score 1-10/10 Pantoprazole Sodium (Protonix) 20 mg PO DAILY [facility] Last Admin: 10/03/19 09:14 Dose: 20 mg Documented by: Polyethylene Glycol (Miralax) 17 gm PO BID [facility] Last Admin: 10/03/19 09:13 Dose: 17 gm Documented by: Sodium Chloride () 10 - 40 ml IV UD PRN PRN Reason: SALINE FLUSH Last Admin: 10/03/19 07:57 Dose: 10 ml Documented by: Sodium Chloride () 10 - 40 ml IV UD PRN PRN Reason: Open End PICC Flush Sodium Chloride (0.9% Nacl (Sterile) Posiflush) 10 - 40 ml IV UD PRN PRN Reason: Port access or dressing change Last Admin: 09/30/19 11:24 Dose: 20 ml Documented by: Sodium Hypochlorite (Dakins Solution 0.25% (1/2 Strength)) 1 applic TOPICAL BID [facility]; Protocol Last Admin: 10/03/19 10:35 Dose: 1 applicatio Documented by: Tizanidine HCl (Zanaflex) 4 mg PO Q8H PRN PRN PRN Reason: SPASMS Last Admin: 09/29/19 20:46 Dose: 4 mg Documented by: Discharge Diet: Low fat/ Low Cholesterol, 2000 mg Sodium Diet Discharge Activity: Return to Normal Activity Home Medications: Medications to take at Discharge Escitalopram Oxalate [Lexapro] 10 mg PO DAILY 03/22/16 Fluticasone 0.05% [Flonase Nasal Davis] 2 spray NASAL DAILY 03/22/16 Multivitamin [Multiple Vitamins] 1 each PO DAILY 03/22/16 buPROPion XL [Wellbutrin Xl] 300 mg PO DAILY 03/22/16 busPIRone [Buspar] 5 mg PO TID 03/22/16 Metoprolol Tartrate [Lopressor (beta joo)] 50 mg PO BID 01/19/18 Ascorbic Acid [Vitamin C] 500 mg PO DAILY@0800 08/22/18 Ferrous Gluconate 324 mg PO BID 08/22/18 Ezetimibe [Zetia] 10 mg PO DAILY 10/18/18 Doxazosin Mesylate [Cardura] 2 mg PO QHS 08/12/19 Gabapentin [Neurontin] 600 mg PO TIDCM 08/12/19 Cholecalciferol (Vitamin D3) [Cholecalciferol] 25 gm MC DAILY 09/26/19 Omeprazole 20 mg PO DAILY 09/26/19 Umeclidinium [place] [Incruse Ellipta] 1 puff IH DAILY 09/26/19 Emollient Combination No.72 [Eucerin Intensive Repair] 1 applic TOPICAL 4X/DAY PRN PRN lotion 10/03/19 Ensure Enlive 120 ml PO 4X/DAY liquid 10/03/19 Nystatin Powder [Mycostatin Powder] 1 applic TOPICAL TID bottle 10/03/19 Oxycodone CR [Oxycontin] 20 mg PO BID 3 Days #6 tab 10/03/19 Oxycodone [Oxyir] 5 mg PO Q4H PRN PRN 3 Days #18 tab 10/03/19 Polyethylene Glycol 3350 [Miralax] 17 gm PO BID packet 10/03/19 Sodium Hypochlorite [Dakins Solution 0.25% (1/2 Strength)] 1 applic TOPICAL BID bottle 10/03/19 Tizanidine HCl [Zanaflex] 4 mg PO Q8H PRN PRN tab 10/03/19 Following Prescrptions Were Given to Patient: Oxycodone CR [Oxycontin] 20 mg PO BID 3 Days #6 tab Prescription Printed Oxycodone [Oxyir] 5 mg PO Q4H PRN PRN 3 Days #18 tab PRN Reason: Pain Score 6-10/10 Prescription Printed Primary Care Physician: Winnie Gonzales MD [Primary Care Provider] - Please follow up with your Primary Care Physician in: 2 weeks Please Follow Up With: Naomi Palomares DPM When: 1-2 weeks Please Follow Up With: Eddie Samuels MD When: 2 weeks Please Follow Up With: Venkat Mesa MD When: 1 week Disposition: Half-Way facility Minutes spent on discharge:: 35 Patient Condition:: Stable Medical Necessity - Tobacco Use Smoking Status: Former smoker Meaningful Use Info Meaningful Use Diagnoses (Choose all that apply): None applicable <JoseGrethel - Last Filed: 10/04/19 13:24> Discharge Date and Diagnosis - Primary Discharge Diagnosis Acute Problems: Active Problems Toe necrosis (Acute) Gangrene of toe of right foot (Acute) Osteomyelitis of toe of right foot (Acute) Suspected Problems: Suspected Problems Malnutrition (Suspected) - Secondary Discharge Diagnosis Chronic Problems: Chronic Problems Pressure ulcer, heel, right, unstageable (Chronic) Decubitus ulcer of left heel, stage 4 (Chronic) Pressure ulcer of toe of right foot (Chronic) Peripheral vascular disease (Chronic) Unstageable pressure ulcer of right heel (Chronic) Unstageable pressure ulcer of left heel (Chronic) Non-healing open wound of right groin (Chronic) Skin necrosis (Chronic) Pressure sore of left ischium, stage 4 (Chronic) Candidal skin infection (Chronic) 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) Infection and inflammatory reaction due to internal left knee prosthesis, initial encounter (Chronic) History of total left knee replacement (Chronic) Skin ulcer of left thigh with fat layer exposed (Chronic) Pressure ulcer of right buttock, stage 3 (Chronic) Skin ulcer of elbow with fat layer exposed (Chronic) Decubitus ulcer of left heel, stage 2 (Chronic) Debility (Chronic) Personal history of Methicillin resistant Staphylococcus aureus infection (Chronic) Acute osteomyelitis of right pelvic region (Chronic) History of anal cancer (Chronic) 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 I have independently interviewed and examined the patient and reviewed pertinent historical, laboratory, and other data. Please refer to DOLLY Garcia note for his patient's presentation, findings, and recommendations. I have reviewed and his note and concur with his documentation 64 y/o male with PMHx of anal cancer status post radiation with injury to the right ischial area with subsequent recurrent osteomyelitis, recurrent ischial pressure injuries, severe PAD complicated by bilateral leg ulcers, recent abscess of the groin status post I&D who comes in from a senior living facility with worsening infection in the right first and second toes ongoing for 2 weeks. Patient was also seen for worsening of his chronic right and left ischial stage IV pressure injuries. LISBETH showed significant PAD. X-ray of the foot demonstrated soft tissue swelling over the great toe. Podiatry and plastic surgery were consulted. Bedside wound debridement was performed. Vascular surgery was consulted. CT of the abdomen with runoff studies demonstrated significant disease. Patient underwent wound debridement of his ischial wounds by Dr. Mesa. He had partial ostectomy with bone biopsies done. Infectious disease was also consulted. Cultures grew MRSA and gram-negative jesus possible Pseudomonas. Patient was treated with vancomycin and meropenem. He was discharged with 6 more weeks of IV vancomycin and meropenem. He will follow-up with vascular surgery in 2 weeks for further arteriograms. He will follow-up with Dr. Mesa in 1 to 2 weeks. On the day of discharge, patient was seen and examined. Denied any new complaints. Physical Exam: Gen: Appears comfortable, not pale, not jaundiced, alert oriented x3 CVS:HS I +II, regular, no murmurs RESP: Diminished at lung bases, otherwise clinically clear to auscultation GI: BS present and normal, nontender, no palpable organs, colostomy bag has soft brown stools. EXT:No edema, bilateral gauze dressing to both legs and right groin - Physical Exam Vitals/I&O's: Vital Signs Temp Pulse Resp BP Pulse Ox 98.8 F 86 16 108/32 L 95 10/03/19 11:55 10/03/19 12:51 10/03/19 11:55 10/03/19 11:55 10/03/19 11:55 Oxygen Flow Rate (L/min) 2 Oxygen Delivery Method Nasal Cannula Weight: 70.76 kg Body Mass Index (BMI) 24.4 Intake and Output for Last 24 Hours 10/01/19 10/02/19 10/03/19 23:59 23:59 23:59 Intake Total 1778.0 / 1778.0 1314.50 / 1674.50 1939.5 / 1939.5 Output Total 2600 / 2600 1250 / 1950 2900 / 2900 Balance -822.0 / -822.0 64.50 / -275.50 -960.5 / -960.5 Microbiology Past 72 Hours 10/01/19 Unknown Tissue - Buttock Gram Stain - Final 10/01/19 Unknown Tissue - Buttock Wound Culture - Preliminary Gram negative jesus Gram negative jesus#2 10/01/19 Unknown Bone - Buttock Gram Stain - Final 10/01/19 Unknown Bone - Buttock Wound Culture - Preliminary Gram negative jesus Gram negative jesus#2 10/01/19 Unknown Tissue - Buttock Gram Stain - Final 10/01/19 Unknown Tissue - Buttock Wound Culture - Preliminary Gram negative jesus Gram negative jesus#2 10/01/19 Unknown Bone - Buttock Gram Stain - Final 10/01/19 Unknown Bone - Buttock Wound Culture - Preliminary Gram negative jesus GNR Poss Pseudomonas sp 10/01/19 Unknown Tissue - Buttock Gram Stain - Final 10/01/19 Unknown Tissue - Buttock Wound Culture - Preliminary GNR Poss Pseudomonas sp Gram negative jesus 10/01/19 Unknown Bone - Buttock Gram Stain - Final 10/01/19 Unknown Bone - Buttock Wound Culture - Preliminary Gram negative jesus Gram negative jesus#2 Laboratory Results 10/02/19 17:29: Specimen Type ART, Sample Site R RADIAL, pH 7.40, Bicarbonate Actual 36.1 H, Total CO2 38, Base Excess 11 H, O2 Saturation 91 L, ABG pCO2 59.0 H, ABG pO2 63 L, Dariusz Test POS, O2 Delivery Device Nasal Can, Liter Flow 2.0 10/02/19 19:45: Vancomycin Trough 17.3 H 10/03/19 05:30: WBC 11.2 H, RBC 3.36 L, Hgb 8.0 L, Hct 26.8 L, MCV 79.8 L, MCH 23.8 L, MCHC 29.9 L, RDW Std Deviation 54.7 H, RDW Coeff of Rosendo 19.1 H, Plt Count 366, MPV 7.9 10/03/19 05:30: Sodium 128 L, Potassium 4.2, Chloride 92 L, Carbon Dioxide 35.0 H, Anion Gap 1 L, BUN 18, Creatinine 0.70, Estim Creat Clear Calc 98.36, Est GFR (MDRD) Af Amer 146, Est GFR (MDRD) Non-Af 121, BUN/Creatinine Ratio 25.9 H, Glucose 113 H, Calcium 8.7 Current Medications Amlodipine Besylate (Norvasc) 5 mg PO DAILY [facility] Last Admin: 10/03/19 09:14 Dose: Not Given Documented by: Ascorbic Acid (Vitamin C) 500 mg PO DAILY@0800 [facility] Last Admin: 10/03/19 07:58 Dose: 500 mg Documented by: Bupropion HCl (Wellbutrin Xl) 300 mg PO DAILY [facility] Last Admin: 10/03/19 09:16 Dose: 300 mg Documented by: Buspirone HCl (Buspar) 5 mg PO TID [facility] Last Admin: 10/03/19 13:16 Dose: 5 mg Documented by: Diphenhydramine HCl (Benadryl) 25 mg PO BID PRN PRN PRN Reason: ITCHING Last Admin: 10/01/19 15:18 Dose: 25 mg Documented by: Doxazosin Mesylate (Cardura) 2 mg PO QHS [facility] Last Admin: 10/02/19 23:33 Dose: 2 mg Documented by: Ezetimibe (Zetia) 10 mg PO DAILY [facility] Last Admin: 10/03/19 09:14 Dose: 10 mg Documented by: Emollient Ointment (Eucerin Intensive Repair) 1 applic TOPICAL 4X/DAY PRN PRN; Protocol PRN Reason: ITCHING Enoxaparin Sodium (Lovenox) 40 mg SC DAILY [facility] Last Admin: 10/03/19 09:13 Dose: 40 mg Documented by: Escitalopram Oxalate (Lexapro) 10 mg PO DAILY [facility] Last Admin: 10/03/19 09:14 Dose: 10 mg Documented by: Ferrous Gluconate (Ferrous Gluconate) 324 mg PO 1200,1700 [facility] Last Admin: 10/03/19 11:35 Dose: 324 mg Documented by: Fluticasone Propionate (Flonase Nasal Davis) 2 spray NASAL DAILY [facility] Last Admin: 10/03/19 09:15 Dose: 2 spray Documented by: Gabapentin (Neurontin) 600 mg PO TIDCM [facility] Last Admin: 10/03/19 11:35 Dose: 600 mg Documented by: Heparin Sodium (Beef Lung) () 50 units IV UD PRN PRN Reason: PICC Line Heparin Flush Sodium Chloride () 250 mls @ 15 mls/hr IV .[id number] PRN PRN Reason: Saline Flush Last Infusion: 10/03/19 13:37 Dose: 0 mls/hr Documented by: Sodium Chloride () 250 mls @ 15 mls/hr IV .[id number] PRN PRN Reason: Additional IVPB Infusion Vancomycin HCl (Vancomycin) 1,000 mg in 200 mls @ 200 mls/hr IV Q12H [facility] [facility] Last Infusion: 10/03/19 08:52 Dose: Infused Documented by: Meropenem 1 gm/ Sodium (Chloride) 120 mls @ 33 mls/hr IV Q8 [facility] Last Admin: 10/03/19 13:16 Dose: 33 mls/hr Documented by: Metoprolol Tartrate (Lopressor (Beta Joo)) 50 mg PO BID [facility] Last Admin: 10/03/19 09:14 Dose: 50 mg Documented by: Morphine Sulfate () 4 mg IV Q3H PRN PRN PRN Reason: Pain Score 6-10/10 Last Admin: 10/03/19 13:16 Dose: 4 mg Documented by: Nutritional Formula (Lactose Free) (Ensure Enlive) 120 ml PO 4X/DAY [facility] Last Admin: 10/03/19 13:16 Dose: 120 ml Documented by: Nystatin (Mycostatin Powder) 1 applic TOPICAL TID [facility]; Protocol Last Admin: 10/03/19 13:19 Dose: Not Given Documented by: Ondansetron HCl (Zofran) 4 mg IV Q8H PRN PRN PRN Reason: NAUSEA/VOMITING Oxycodone HCl (Oxycontin) 20 mg PO BID [facility] Last Admin: 10/03/19 09:14 Dose: 20 mg Documented by: Oxycodone HCl (Oxyir) 5 mg PO Q4H PRN PRN PRN Reason: Pain Score 1-10/10 Pantoprazole Sodium (Protonix) 20 mg PO DAILY [facility] Last Admin: 10/03/19 09:14 Dose: 20 mg Documented by: Polyethylene Glycol (Miralax) 17 gm PO BID [facility] Last Admin: 10/03/19 09:13 Dose: 17 gm Documented by: Sodium Chloride () 10 - 40 ml IV UD PRN PRN Reason: SALINE FLUSH Last Admin: 10/03/19 07:57 Dose: 10 ml Documented by: Sodium Chloride () 10 - 40 ml IV UD PRN PRN Reason: Open End PICC Flush Sodium Chloride (0.9% Nacl (Sterile) Posiflush) 10 - 40 ml IV UD PRN PRN Reason: Port access or dressing change Last Admin: 09/30/19 11:24 Dose: 20 ml Documented by: Sodium Hypochlorite (Dakins Solution 0.25% (1/2 Strength)) 1 applic TOPICAL BID [facility]; Protocol Last Admin: 10/03/19 10:35 Dose: 1 applicatio Documented by: Tizanidine HCl (Zanaflex) 4 mg PO Q8H PRN PRN PRN Reason: SPASMS Last Admin: 09/29/19 20:46 Dose: 4 mg Documented by: Inpatient E&M: [id number] Disch Hosp
--- NOTE | 2019-10-03 15:13 | NURSING ---
called report to [facility] ariana
== END 2019-10-03 17:50 | disposition skilled nursing facility (03) | DRG 264 ==
LOC: ED 12:58 → MS3 09-27 08:01
PROVIDERS: Nurse Practitioner Family; Podiatrist; Surgery; Admitting Provider Internal Medicine; Emergency Provider Emergency Medicine; PCP Internal Medicine; Visit Provider Internal Medicine
PROC: 0QB20ZZ Excision of Right Pelvic Bone, Open Approach (ICD-10-PCS; CPT 15999; principal; 2019-10-01 11:55)
DX: I96 Gangrene, not elsewhere classified (principal); L89.324 Pressure ulcer of left buttock, stage 4; L89.314 Pressure ulcer of right buttock, stage 4; L89.154 Pressure ulcer of sacral region, stage 4; M86.651 Other chronic osteomyelitis, right thigh; M86.171 Other acute osteomyelitis, right ankle and foot; M86.18 Other acute osteomyelitis, other site; M86.68 Other chronic osteomyelitis, other site; L02.214 Cutaneous abscess of groin; E44.1 Mild protein-calorie malnutrition; L97.514 Non-pressure chronic ulcer of other part of right foot with necrosis of bone; L89.626 Pressure-induced deep tissue damage of left heel; L89.610 Pressure ulcer of right heel, unstageable; B95.62 Methicillin resistant Staphylococcus aureus infection as the cause of diseases classified elsewhere; B37.2 Candidiasis of skin and nail; R53.81 Other malaise; J44.9 Chronic obstructive pulmonary disease, unspecified; K21.9 Gastro-esophageal reflux disease without esophagitis; E78.5 Hyperlipidemia, unspecified; F32.9 Major depressive disorder, single episode, unspecified; F41.9 Anxiety disorder, unspecified; I10 Essential (primary) hypertension; B18.2 Chronic viral hepatitis C; L59.8 Other specified disorders of the skin and subcutaneous tissue related to radiation; Y84.2 Radiological procedure and radiotherapy as the cause of abnormal reaction of the patient, or of later complication, without mention of misadventure at the time of the procedure; G62.9 Polyneuropathy, unspecified; Z93.3 Colostomy status; D63.8 Anemia in other chronic diseases classified elsewhere; Z92.21 Personal history of antineoplastic chemotherapy; Z68.24 Body mass index [BMI] 24.0-24.9, adult; Z92.3 Personal history of irradiation; Z96.652 Presence of left artificial knee joint; Z96.642 Presence of left artificial hip joint; Z86.14 Personal history of Methicillin resistant Staphylococcus aureus infection; Z85.048 Personal history of other malignant neoplasm of rectum, rectosigmoid junction, and anus; Z79.899 Other long term (current) drug therapy; Z87.891 Personal history of nicotine dependence
CPT/HCPCS: 36415; 36569; 36592; 36600; 71046; 73630; 75635; 80048; 80076; 80202; 82803; 83540; 83550; 83735; 84134; 85025; 85027; 85610; 85730; 86850; 86900; 86901; 86920; 86922; 87070; 87075; 87077; 87102; 87106; 87186; 87205; 87206; 87635; 87640; 88304; 88305; 88311; 88312; 93005; 93923; 94002; 94003; 97110; 97162; 97166; 97530; 97802; 99285; G2023; J2185; J7040; J7050; J7120; P9016; Q9967; A4216; J0295; J2405; U0003

== ENCOUNTER 2019-10-28 13:00 | Outpatient (RCR) | payer MEDICARE, MEDICAID, SELFPAY ==
[2019-09-11 00:33] VITALS: BP 95/47; PULSE 61; RESP 18; TEMP 36.4; BMI 24.5
--- NOTE | 2019-09-25 16:14 | WC ---
Nimco from [facility] called concerned that patient has necrotic toe to the right 2nd toe and the tip of the great. They are painting them with betadine and gauze. At the present time, they are all dry. Notified Dr Mesa and he recommended to continue betadine and to have the patient schedule with him on 09/30/19. Romina notified to schedule appointment. Spoke to Nimco and Dr Mesa wants patient to report to ER if the necrotic areas worsens. Nimco verbalized understanding. She marked the areas to monitor the progression.
[2019-10-01 09:28] VITALS: BMI 24.4
[2019-10-14 10:24] VITALS: BP 132/87; PULSE 73; RESP 16; TEMP 35.7; BMI 24.4
--- NOTE | 2019-10-14 12:53 | PCM.WC.PN ---
(1) Right ischial pressure sore, stage 4 Status: Chronic Current Visit: Yes Code(s): L89.314 - Pressure ulcer of right buttock, stage 4 (2) Pressure sore of left ischium, stage 4 Status: Chronic Current Visit: Yes Code(s): L89.324 - Pressure ulcer of left buttock, stage 4 (3) Sacral pressure ulcer Status: Acute Current Visit: Yes Qualifiers: Pressure injury stage: stage 4 Qualified Code(s): L89.154 - Pressure ulcer of sacral region, stage 4 Code(s): L89.159 - Pressure ulcer of sacral region, unspecified stage (4) Non-healing open wound of right groin Status: Chronic Current Visit: Yes Code(s): S31.103A - Unspecified open wound of abdominal wall, right lower quadrant without penetration into peritoneal cavity, initial encounter (5) Unstageable pressure ulcer of left heel Status: Chronic Current Visit: Yes Code(s): L89.620 - Pressure ulcer of left heel, unstageable (6) Pressure ulcer, heel, right, unstageable Status: Chronic Current Visit: Yes Code(s): L89.610 - Pressure ulcer of right heel, unstageable (7) Pressure ulcer of toe of right foot Status: Chronic Current Visit: No Qualifiers: Pressure injury stage: unstageable Qualified Code(s): L89.890 - Pressure ulcer of other site, unstageable Code(s): L89.899 - Pressure ulcer of other site, unspecified stage (8) Toe necrosis Status: Chronic Current Visit: Yes Code(s): I96 - Gangrene, not elsewhere classified (9) Peripheral vascular disease Status: Chronic Current Visit: Yes Code(s): I73.9 - Peripheral vascular disease, unspecified (10) Malnutrition Status: Suspected Current Visit: No Code(s): E46 - Unspecified protein-calorie malnutrition (11) Debility Status: Chronic Current Visit: No Code(s): R53.81 - Other malaise Type of Wound Date of Service: 10/14/19 Chief Complaint: Recurrent right ischial pressure sore, Stage IV, left ischial pressure sore, Stage IV. Recent sacral ulcer, Stage IV, right groin ulcer. Unstageable ulcers of bilateral heels, right second toe necrotic. History of Wound: Surgery 10/01/19 1. Excision recurrent right ischial pressure sore, Stage IV, with partial ostectomy for osteomyelitis. 2. Excision left ischial pressure sore, Stage IV, with partial ostectomy for osteomyelitis. 3. Excision sacral pressure sore, Stage IV, with partial ostectomy for osteomyelitis. Surgery 08/21/19 - Surgical preparation right inguinal area and right proximal thigh area with incision and drainage and excisional debridement submuscular abscess. Surgery 08/13/19 - 1. Excision recurrent right ischial pressure sore, Stage IV, with partial ostectomy for osteomyelitis. 2. Excision necrotic left ischial pressure sore, Stage IV, with partial ostectomy for osteomyelitis. Surgery 02/11/19 - Excision recurrent pressure sore right ischial area, Stage IV, with partial ostectomy for osteomyelitis. Wound care - Dakin's to Bilateral ischial ulcers and sacral ulcer. Silver to right groin. Betadine to bilateral heels and right great and second toe. Operative culture from 10/01/19 -Right ischial tissue - Enterobacter aerogenes and Proteus mirabilis. Right ischial bone - Acinetobacter baumannii, Pseudomonas aeroginosa, Stenotrophomonas maltohilia. Left ischial tissue - Enterobacter aerogenes, Proteus mirabilis, and Staphylococcus cohnii urealyti. Left ischial bone - Proteus mirabilis, Acinetobacter baumannii, Pseudomonas aeroginosa. Saral pressure tissue - Pseudomonas aeroginosa and Proteus mirabilis. Sacral ulcer bone - Pseudomonas aeroginosa and Enterobacter aerogenes. Deep wound culture of right second toe from 09/27/19 - MRSA. He was discharged to [facility] on Vancomycin and Mereopenem. Operative culture from 08/21/19 - Proteus mirabilis. He was discharged on Cefepime IV which he has completed. Pathology - negative for osteomyelitis. Prealbumin from 02/12/19 was 25.8. Encourage nutritional supplementation with protein to help the healing process. CT Pelvis from 02/13/19 showed continued air-filled deep decubitus ulcer extending down to the surface of the right ischial tuberosity with chronic sclerosis and erosive changes of the right ischial tuberosity that are not substantially changed from the prior exam of September 18, 2018. No further bone erosion or extension. No additional acute pelvic findings or changes.. Today he denies fever. His appetite is good. Progress of Wound: Right groin with good granulation tissue. Right and left ischial stage IV ulcers and sacral stage IV ulcers have increased slough. - Physical Exam Vital Signs Temp Pulse Resp BP 96.3 F L 73 16 132/87 H 10/14/19 10:24 10/14/19 10:24 10/14/19 10:24 10/14/19 10:24 General: Oriented x3, Cooperative HEENT: Atraumatic Oral: Moist Mucosa Lungs: Normal air movement Cardiovascular: Regular rate Skin: Ulcer/ Wound - Right and left ischial ulcer and sacral ulcer with increase biofilm. Right groin ulcer is beefy red. Bilateral heels with dry eschar present. Right great toe with dry necrotic area on the tip of toe. Right second toe is dry necrotic. Wound Measurements and Assessment WC - Nurse 1 - General Ulcer Measurement Start: 10/14/19 10:23 Freq: Status: Active Protocol: Activity Type Activity Date Activity User E-Sign Co-Sign Detail Recorded Client Recorded Date Recorded By Document 10/14/19 10:24 [facility] [id number] 10/14/19 10:56 [facility] 10/14/19 10:24 Wound Center Nurse 1 [Ulcer Assessment] #19- R 2ND TOE -Combined with other wound No -Current Size (cm) - Length 2 -Current Size (cm) - Width 1.5 -Current Size (cm) - Depth 0.4 -Total Square Cm 3.0 -Date of Last Picture (Recall this 10/14/19 field) -Photo Taken Yes -Epithelialization None Present -Tunneling No -Undermining/Tunneling No -Circular Undermining No -Exudate Amt None Present -Wound Margin Distinct, Outline Attached -Granulation Amt None Present (0 %) -Slough/Fibrin Yes -Necrosis Amt Large (67-100%) -Necrotic Tissue Type Eschar -Texture (Nathalie-wound Skin Appearance) Assessed -Moisture (Nathalie-wound Skin Appearance Assessed ) -Color (Nathalie-wound Skin Appearance) Assessed, Erythema -Temperature (Nathalie-wound Skin No Abnormality Appearance) (Pt Warm) -Tenderness on Palpation (Nathalie-wound No Skin Appearance) -Ulcer Cleansing SOAPY WATER -Foul Odor after Cleansing No #18- R GREAT TOE -Combined with other wound No -Current Size (cm) - Length 1.7 -Current Size (cm) - Width 2 -Current Size (cm) - Depth 0.1 -Total Square Cm 3.4 -Date of Last Picture (Recall this 10/14/19 field) -Photo Taken Yes -Epithelialization None Present -Tunneling No -Undermining/Tunneling No -Circular Undermining No -Exudate Amt None Present -Wound Margin Distinct, Outline Attached -Granulation Amt None Present (0 %) -Slough/Fibrin Yes -Necrosis Amt Large (67-100%) -Necrotic Tissue Type Eschar -Texture (Nathalie-wound Skin Appearance) Assessed -Moisture (Nathalie-wound Skin Appearance Assessed,Dry/ ) Scaly -Color (Nathalie-wound Skin Appearance) Assessed -Temperature (Nathalie-wound Skin No Abnormality Appearance) (Pt Warm) -Tenderness on Palpation (Nathalie-wound No Skin Appearance) -Ulcer Cleansing SOAPY WATER -Foul Odor after Cleansing No #17- R HEEL -Combined with other wound No -Current Size (cm) - Length 4.5 -Current Size (cm) - Width 4 -Current Size (cm) - Depth 0.1 -Total Square Cm 18.0 -Date of Last Picture (Recall this 10/14/19 field) -Photo Taken Yes -Epithelialization None Present -Tunneling No -Undermining/Tunneling No -Circular Undermining No -Exudate Amt None Present -Wound Margin Distinct, Outline Attached -Granulation Amt None Present (0 %) -Slough/Fibrin Yes -Necrosis Amt Large (67-100%) -Necrotic Tissue Type Eschar -Texture (Nathalie-wound Skin Appearance) Assessed, Scarring -Moisture (Nathalie-wound Skin Appearance Assessed,Dry/ ) Scaly -Color (Nathalie-wound Skin Appearance) Assessed, Erythema -Temperature (Nathalie-wound Skin No Abnormality Appearance) (Pt Warm) -Tenderness on Palpation (Nathalie-wound Yes Skin Appearance) -Ulcer Cleansing SOAPYWATER -Foul Odor after Cleansing No # 16- L HEEL -Combined with other wound No -Current Size (cm) - Length 3.3 -Current Size (cm) - Width 2.3 -Current Size (cm) - Depth 0.1 -Total Square Cm 7.59 -Date of Last Picture (Recall this 10/14/19 field) -Photo Taken Yes -Epithelialization None Present -Tunneling No -Undermining/Tunneling No -Circular Undermining No -Exudate Amt None Present -Granulation Amt None Present (0 %) -Slough/Fibrin Yes -Necrosis Amt Large (67-100%) -Necrotic Tissue Type Eschar -Texture (Nathalie-wound Skin Appearance) Assessed -Moisture (Nathalie-wound Skin Appearance Assessed,Dry/ ) Scaly -Color (Nathalie-wound Skin Appearance) Assessed, Erythema -Temperature (Nathalie-wound Skin No Abnormality Appearance) (Pt Warm) -Tenderness on Palpation (Nathalie-wound Yes Skin Appearance) -Ulcer Cleansing soapy water -Foul Odor after Cleansing No #15- SACRAL -Combined with other wound No -Current Size (cm) - Length 5.4 -Current Size (cm) - Width 4.5 -Current Size (cm) - Depth 2 -Total Square Cm 24.30 -Date of Last Picture (Recall this 10/14/19 field) -Photo Taken Yes -Epithelialization None Present -Tunneling No -Undermining/Tunneling No -Circular Undermining Yes -Exudate Amt Large -Exudate Type Serosanguineous -Wound Margin Distinct, Outline Attached -Granulation Amt None Present (0 %) -Slough/Fibrin Yes -Necrosis Amt Large (67-100%) -Necrotic Tissue Type Adherent Slough -Structure Exposed Bone -Texture (Nathalie-wound Skin Appearance) Assessed, Excoriation -Moisture (Nathalie-wound Skin Appearance Assessed ) -Color (Nathalie-wound Skin Appearance) Assessed, Erythema -Temperature (Nathalie-wound Skin No Abnormality Appearance) (Pt Warm) -Tenderness on Palpation (Nathalie-wound Yes Skin Appearance) -Ulcer Cleansing soapy water -Foul Odor after Cleansing No -Anesthetic Used 4% Lidocaine Solution #14- L BUTTOCK POST OP -Combined with other wound No -Current Size (cm) - Length 4.2 -Current Size (cm) - Width 6.5 -Current Size (cm) - Depth 2 -Total Square Cm 27.30 -Date of Last Picture (Recall this 10/14/19 field) -Photo Taken Yes -Epithelialization None Present -Tunneling No -Undermining/Tunneling No -Circular Undermining No -Exudate Amt Medium -Exudate Type Serosanguineous -Wound Margin Distinct, Outline Attached -Granulation Amt None Present (0 %) -Slough/Fibrin Yes -Necrosis Amt Large (67-100%) -Necrotic Tissue Type Adherent Slough -Structure Exposed Bone -Texture (Nathalie-wound Skin Appearance) Assessed, Excoriation -Moisture (Nathalie-wound Skin Appearance Assessed ) -Color (Nathalie-wound Skin Appearance) Assessed, Erythema -Temperature (Nathalie-wound Skin No Abnormality Appearance) (Pt Warm) -Tenderness on Palpation (Nathalie-wound Yes Skin Appearance) -Ulcer Cleansing soapy water -Foul Odor after Cleansing No -Anesthetic Used 4% Lidocaine Solution #13- R UPPER THIGH POST OP -Combined with other wound No -Current Size (cm) - Length 8.5 -Current Size (cm) - Width 1.5 -Current Size (cm) - Depth 0.2 -Total Square Cm 12.75 -Date of Last Picture (Recall this 10/14/19 field) -Photo Taken Yes -Epithelialization Small 1-33% -Tunneling No -Undermining/Tunneling No -Circular Undermining No -Exudate Amt Medium -Exudate Type Serosanguineous -Wound Margin Distinct, Outline Attached -Granulation Amt Large (67-100%) -Granulation Quality Red -Slough/Fibrin No -Necrosis Amt None Present (0 %) -Texture (Nathalie-wound Skin Appearance) Assessed, Scarring -Moisture (Nathalie-wound Skin Appearance Assessed ) -Color (Nathalie-wound Skin Appearance) Assessed -Temperature (Nathalie-wound Skin No Abnormality Appearance) (Pt Warm) -Tenderness on Palpation (Nathalie-wound Yes Skin Appearance) -Ulcer Cleansing soapy water -Foul Odor after Cleansing No -Anesthetic Used 4% Lidocaine Solution #11 Right Buttock post op -Combined with other wound No -Current Size (cm) - Length 6 -Current Size (cm) - Width 4.9 -Current Size (cm) - Depth 2.7 -Total Square Cm 29.4 -Date of Last Picture (Recall this 10/14/19 field) -Photo Taken Yes -Epithelialization None Present -Tunneling No -Undermining/Tunneling Yes -Undermining/Tunneling Starts (O' 12 clock) -Undermining/Tunneling Ends (O'clock) 2 -Maximum Distance (cm) 2.7 -Circular Undermining No -Exudate Amt Medium -Exudate Type Serosanguineous -Wound Margin Distinct, Outline Attached -Granulation Amt Small (1-33%) -Granulation Quality Red -Slough/Fibrin Yes -Necrosis Amt Large (67-100%) -Necrotic Tissue Type Adherent Slough -Structure Exposed Bone -Texture (Nathalie-wound Skin Appearance) Assessed, Excoriation -Moisture (Nathalie-wound Skin Appearance Assessed ) -Color (Nathalie-wound Skin Appearance) Assessed, Erythema -Temperature (Nathalie-wound Skin No Abnormality Appearance) (Pt Warm) -Tenderness on Palpation (Nathalie-wound Yes Skin Appearance) -Ulcer Cleansing soapy water -Foul Odor after Cleansing No -Anesthetic Used 4% Lidocaine Solution WC - Nurse 2 - General Ulcer CM Notes Start: 10/14/19 10:23 Freq: Status: Active Protocol: Activity Type Activity Date Activity User E-Sign Co-Sign Detail Recorded Client Recorded Date Recorded By Document 10/14/19 11:56 [id number] 10/14/19 12:03 10/14/19 11:56 Wound Center Nurse 2 [Procedure/Treatment] #19- R 2ND TOE -Correct Patient No -Correct Side, Site, Position No -Correct Procedure No -Procedure Performed No -Wound/Ulcer Outcome Not Healed #18- R GREAT TOE -Correct Patient No -Correct Side, Site, Position No -Correct Procedure No -Procedure Performed No -Wound/Ulcer Outcome Not Healed #17- R HEEL -Correct Patient No -Correct Side, Site, Position No -Correct Procedure No -Procedure Performed No -Wound/Ulcer Outcome Not Healed # 16- L HEEL -Correct Patient No -Correct Side, Site, Position No -Correct Procedure No -Procedure Performed No -Wound/Ulcer Outcome Not Healed #15- SACRAL -Time 11:57 -Correct Patient Yes -Correct Side, Site, Position Yes -Correct Procedure Yes -Procedure Performed Yes -Type of Procedure Debridement -Clinical Debridement Muscle -Post Debridement Size (cm) - Length 5.3 -Post Debridement Size (cm) - Width 4.7 -Post Debridement Size (cm) - Depth 2.3 -Total Square (cm) 24.91 -Wound/Ulcer Outcome Not Healed -Ulcer Cleansing Rinsed/ Irrigated with Saline -Foul Odor after Cleansing No -Bioengineered Tissue No -Bleeding Controlled with Pressure -Other circumferential undermining 2cm -Offloading No -Treatment Response Procedure Tolerated Well #14- L BUTTOCK POST OP -Time 11:58 -Correct Patient Yes -Correct Side, Site, Position Yes -Correct Procedure Yes -Procedure Performed Yes -Type of Procedure Debridement -Clinical Debridement Muscle -Post Debridement Size (cm) - Length 4.6 -Post Debridement Size (cm) - Width 6.2 -Post Debridement Size (cm) - Depth 2.9 -Total Square (cm) 28.52 -Wound/Ulcer Outcome Not Healed -Ulcer Cleansing Rinsed/ Irrigated with Saline -Foul Odor after Cleansing No -Bioengineered Tissue No -Bleeding Controlled with Pressure -Offloading No -Treatment Response Procedure Tolerated Well #13- R UPPER THIGH POST OP -Time 12:01 -Correct Patient Yes -Correct Side, Site, Position Yes -Correct Procedure Yes -Procedure Performed Yes -Type of Procedure Debridement -Clinical Debridement Subcutaneous -Post Debridement Size (cm) - Length 9.5 -Post Debridement Size (cm) - Width 2 -Post Debridement Size (cm) - Depth 0.8 -Total Square (cm) 19.0 -Wound/Ulcer Outcome Not Healed -Ulcer Cleansing Rinsed/ Irrigated with Saline -Foul Odor after Cleansing No -Bioengineered Tissue No -Bleeding Controlled with Pressure -Offloading No -Treatment Response Procedure Tolerated Well #11 Right Buttock post op -Time 11:58 -Correct Patient Yes -Correct Side, Site, Position Yes -Correct Procedure Yes -Procedure Performed Yes -Type of Procedure Debridement -Clinical Debridement Muscle -Post Debridement Size (cm) - Length 5 -Post Debridement Size (cm) - Width 7.6 -Post Debridement Size (cm) - Depth 3.5 -Total Square (cm) 38.0 -Wound/Ulcer Outcome Not Healed -Ulcer Cleansing Rinsed/ Irrigated with Saline -Foul Odor after Cleansing No -Bioengineered Tissue No -Bleeding Controlled with Pressure -Offloading No -Treatment Response Procedure Tolerated Well [See Physician Procedure note for Specifics] Pain Scale: 0-10 Numeric [Pain] -Is Patient Pain Free? Yes Musculoskeletal: Tenderness Neurological: Cranial nerves II-XII grossly intact Psych/Mental Status: Normal Affect, Appropriate Debridement Note Post-Debridement Measurements/Treatment WC - Nurse 2 - General Ulcer CM Notes Start: 10/14/19 10:23 Freq: Status: Active Protocol: Activity Type Activity Date Activity User E-Sign Co-Sign Detail Recorded Client Recorded Date Recorded By Document 10/14/19 11:56 ARNOLD [id number] 10/14/19 12:03 10/14/19 11:56 Wound Center Nurse 2 #19- R 2ND TOE -Correct Patient No -Correct Side, Site, Position No -Correct Procedure No -Procedure Performed No -Wound/Ulcer Outcome Not Healed #18- R GREAT TOE -Correct Patient No -Correct Side, Site, Position No -Correct Procedure No -Procedure Performed No -Wound/Ulcer Outcome Not Healed #17- R HEEL -Correct Patient No -Correct Side, Site, Position No -Correct Procedure No -Procedure Performed No -Wound/Ulcer Outcome Not Healed # 16- L HEEL -Correct Patient No -Correct Side, Site, Position No -Correct Procedure No -Procedure Performed No -Wound/Ulcer Outcome Not Healed #15- SACRAL -Time 11:57 -Correct Patient Yes -Correct Side, Site, Position Yes -Correct Procedure Yes -Procedure Performed Yes -Type of Procedure Debridement -Clinical Debridement Muscle -Post Debridement Size (cm) - Length 5.3 -Post Debridement Size (cm) - Width 4.7 -Post Debridement Size (cm) - Depth 2.3 -Total Square (cm) 24.91 -Wound/Ulcer Outcome Not Healed -Ulcer Cleansing Rinsed/ Irrigated with Saline -Foul Odor after Cleansing No -Bioengineered Tissue No -Bleeding Controlled with Pressure -Other circumferential undermining 2cm -Offloading No -Treatment Response Procedure Tolerated Well #14- L BUTTOCK POST OP -Time 11:58 -Correct Patient Yes -Correct Side, Site, Position Yes -Correct Procedure Yes -Procedure Performed Yes -Type of Procedure Debridement -Clinical Debridement Muscle -Post Debridement Size (cm) - Length 4.6 -Post Debridement Size (cm) - Width 6.2 -Post Debridement Size (cm) - Depth 2.9 -Total Square (cm) 28.52 -Wound/Ulcer Outcome Not Healed -Ulcer Cleansing Rinsed/ Irrigated with Saline -Foul Odor after Cleansing No -Bioengineered Tissue No -Bleeding Controlled with Pressure -Offloading No -Treatment Response Procedure Tolerated Well #13- R UPPER THIGH POST OP -Time 12:01 -Correct Patient Yes -Correct Side, Site, Position Yes -Correct Procedure Yes -Procedure Performed Yes -Type of Procedure Debridement -Clinical Debridement Subcutaneous -Post Debridement Size (cm) - Length 9.5 -Post Debridement Size (cm) - Width 2 -Post Debridement Size (cm) - Depth 0.8 -Total Square (cm) 19.0 -Wound/Ulcer Outcome Not Healed -Ulcer Cleansing Rinsed/ Irrigated with Saline -Foul Odor after Cleansing No -Bioengineered Tissue No -Bleeding Controlled with Pressure -Offloading No -Treatment Response Procedure Tolerated Well #11 Right Buttock post op -Time 11:58 -Correct Patient Yes -Correct Side, Site, Position Yes -Correct Procedure Yes -Procedure Performed Yes -Type of Procedure Debridement -Clinical Debridement Muscle -Post Debridement Size (cm) - Length 5 -Post Debridement Size (cm) - Width 7.6 -Post Debridement Size (cm) - Depth 3.5 -Total Square (cm) 38.0 -Wound/Ulcer Outcome Not Healed -Ulcer Cleansing Rinsed/ Irrigated with Saline -Foul Odor after Cleansing No -Bioengineered Tissue No -Bleeding Controlled with Pressure -Offloading No -Treatment Response Procedure Tolerated Well Pain Scale: 0-10 Numeric Is Patient Pain Free? Yes Wound debrided: ischial ulcer Laterality: Right Type of Debridement: Excisional debridement Anesthesia Used: 4% Lidocaine Solution, 5% Lidocaine Gel Depth: Down to and including healthy tissue, in the subcutaneous layer, to muscle Percentage of wound debrided: 100 Instrument Used: 7mm curette Tissue Removed: Subcutaneous tissue and slough into the muscle Severity: Fat Layer Exposed Amount of bleeding with debridement: Mild Bleeding Controlled with: Pressure Patient tolerated procedure well - Additional Wound Wound debrided: ischial ulcer Laterality: Left Type of Debridement: Excisional debridement Anesthesia Used: 5% Lidocaine Gel Depth: Down to and including healthy tissue, in the subcutaneous layer, to muscle Percentage of wound debrided: 100 Instrument Used: 7mm curette Tissue Removed: Subcutaneous tissue and slough into the muscle Severity: Fat Layer Exposed Amount of bleeding with debridement: Mild Bleeding Controlled with: Pressure - Additional Wound Wound debrided: Sacral ulcer Type of Debridement: Excisional debridement Anesthesia Used: 5% Lidocaine Gel Depth: Down to and including healthy tissue, in the subcutaneous layer, to muscle Percentage of wound debrided: 100 Instrument Used: 7mm curette Tissue Removed: Subcutaneous tissue and slough into the muscle Severity: Fat Layer Exposed Amount of bleeding with debridement: Mild Bleeding Controlled with: Pressure Patient tolerated procedure: Patient tolerated procedure well - Additional Wound Wound debrided: groin ulcer Laterality: Right Type of Debridement: Excisional debridement Anesthesia Used: 4% Lidocaine Solution Depth: Down to and including healthy tissue, in the subcutaneous layer Percentage of wound debrided: 100 Instrument Used: 5mm curette Tissue Removed: Subcutaneous tissue and slough Severity: Fat Layer Exposed Amount of bleeding with debridement: Mild Bleeding Controlled with: Pressure Patient tolerated procedure: Patient tolerated procedure well Assessment/Plan Active Problems 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 Recurrent right ischial pressure sore, Stage IV. 2. 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 3. Osteomyelitis. 4. History of MRSA. 5. Left ischial pressure sore, Stage III. 6. History of anal CA treated with chemotherapy and radiation therapy. Plan: Surgery 10/01/19 1. Excision recurrent right ischial pressure sore, Stage IV, with partial ostectomy for osteomyelitis. 2. Excision left ischial pressure sore, Stage IV, with partial ostectomy for osteomyelitis. 3. Excision sacral pressure sore, Stage IV, with partial ostectomy for osteomyelitis. Surgery 08/21/19 - Surgical preparation right inguinal area and right proximal thigh area with incision and drainage and excisional debridement submuscular abscess. Surgery 08/13/19 - 1. Excision recurrent right ischial pressure sore, Stage IV, with partial ostectomy for osteomyelitis. 2. Excision necrotic left ischial pressure sore, Stage IV, with partial ostectomy for osteomyelitis. Surgery 02/11/19 - Excision recurrent pressure sore right ischial area, Stage IV, with partial ostectomy for osteomyelitis. Wound care - Dakin's to Bilateral ischial ulcers and sacral ulcer. Silver to right groin. Betadine to bilateral heels and right great and second toe. Operative culture from 10/01/19 -Right ischial tissue - Enterobacter aerogenes and Proteus mirabilis. Right ischial bone - Acinetobacter baumannii, Pseudomonas aeroginosa, Stenotrophomonas maltohilia. Left ischial tissue - Enterobacter aerogenes, Proteus mirabilis, and Staphylococcus cohnii urealyti. Left ischial bone - Proteus mirabilis, Acinetobacter baumannii, Pseudomonas aeroginosa. Saral pressure tissue - Pseudomonas aeroginosa and Proteus mirabilis. Sacral ulcer bone - Pseudomonas aeroginosa and Enterobacter aerogenes. Deep wound culture of right second toe from 09/27/19 - MRSA. He was discharged to [facility] on Vancomycin and Mereopenem. Follow up 2 weeks. [id number]: [id number] Global Visit
[2019-10-28 13:20] VITALS: BP 164/67; PULSE 76; RESP 16; TEMP 36.4; BMI 24.4
--- NOTE | 2019-10-28 16:49 | PCM.WC.PN ---
Type of Wound Date of Service: 10/28/19 Chief Complaint: Recurrent right ischial pressure sore, Stage IV, and left ischial pressure sore, Stage IV, and sacral pressure sore, Stage IV, and right inguinal and proximal thigh ulcer. History of Wound: Surgery 10/01/19 1. Excision recurrent right ischial pressure sore, Stage IV, with partial ostectomy for osteomyelitis. 2. Excision left ischial pressure sore, Stage IV, with partial ostectomy for osteomyelitis. 3. Excision sacral pressure sore, Stage IV, with partial ostectomy for osteomyelitis. Surgery 08/21/19 - Surgical preparation right inguinal area and right proximal thigh area with incision and drainage and excisional debridement submuscular abscess. Surgery 08/13/19 - 1. Excision recurrent right ischial pressure sore, Stage IV, with partial ostectomy for osteomyelitis. 2. Excision necrotic left ischial pressure sore, Stage IV, with partial ostectomy for osteomyelitis. Wound care - Dakin's to Bilateral ischial ulcers and sacral ulcer. Silver to right inguinal and proximal thigh ulcer. Betadine to bilateral heels and right great and second toe. Operative culture from 10/01/19 - Right ischial soft tissue - Enterobacter aerogenes and Proteus mirabilis. Right ischial bone - Acinetobacter baumannii, Pseudomonas aeroginosa, Stenotrophomonas maltohilia. Left ischial soft tissue - Enterobacter aerogenes, Proteus mirabilis, and Staphylococcus cohnii urealyti. Left ischial bone - Proteus mirabilis, Acinetobacter baumannii, Pseudomonas aeroginosa. Saral soft tissue - Pseudomonas aeroginosa and Proteus mirabilis. Sacral bone - Pseudomonas aeroginosa and Enterobacter aerogenes. Deep wound culture of right second toe from 09/27/19 - MRSA. He was discharged to [facility] on Vancomycin and Mereopenem. Operative culture from 08/21/19 - Proteus mirabilis. He was discharged on Cefepime IV which he has completed. Pathology 08/13/19 - positive for acute osteomyelitis in right ischial bone. Pathology 10/01/19 - positive for acute osteomyelitis in left ischial bone. Prealbumin from 10/02/19 was 14.1. Encourage nutritional supplementation with protein to help the healing process. CT Pelvis from 08/12/19 showed large deep decubitus ulcer posterior to the right ischial tuberosity. with associated sclerosis and osseous fragmentation and erosion, increased in extent and severity in the interval. There is demonstrated at this time fragmentation of the superolateral right acetabular rim raising the suspicion of osteomyelitis. There is a deep soft tissue low attenuation region with several punctate air densities anterior to the right hip measuring 5.6 x 4.0 x 6.4 cm suggestive of phlegmon. This is in a region of previous surgery. There is edema of soft tissue fat posterior to this area.. Today he denies fever. His appetite is good. Progress of Wound: Improved. - Physical Exam Vital Signs Temp Pulse Resp BP 97.5 F L 76 16 164/67 H 10/28/19 13:20 10/28/19 13:20 10/28/19 13:20 10/28/19 13:20 Wound Measurements and Assessment WC - Nurse 1 - General Ulcer Measurement Start: 10/14/19 10:23 Freq: Status: Active Protocol: Activity Type Activity Date Activity User E-Sign Co-Sign Detail Recorded Client Recorded Date Recorded By Document 10/28/19 13:20 [facility] [id number] 10/28/19 13:49 [facility] 10/28/19 13:20 Wound Center Nurse 1 [Ulcer Assessment] #19- R 2ND TOE -Combined with other wound No -Current Size (cm) - Length 2.9 -Current Size (cm) - Width 2 -Current Size (cm) - Depth 0.4 -Total Square Cm 5.8 -Photo Taken No -Epithelialization None Present -Tunneling No -Undermining/Tunneling No -Circular Undermining No -Exudate Amt None Present -Wound Margin Distinct, Outline Attached -Granulation Amt None Present (0 %) -Slough/Fibrin Yes -Necrosis Amt Large (67-100%) -Necrotic Tissue Type Eschar -Texture (Nathalie-wound Skin Appearance) Assessed -Moisture (Nathalie-wound Skin Appearance Assessed ) -Color (Nathalie-wound Skin Appearance) Assessed -Temperature (Nathalie-wound Skin No Abnormality Appearance) (Pt Warm) -Tenderness on Palpation (Nathalie-wound No Skin Appearance) -Ulcer Cleansing soapy water -Foul Odor after Cleansing No #18- R GREAT TOE -Combined with other wound No -Current Size (cm) - Length 1.6 -Current Size (cm) - Width 2.4 -Current Size (cm) - Depth 0.1 -Total Square Cm 3.84 -Photo Taken No -Epithelialization None Present -Tunneling No -Undermining/Tunneling No -Circular Undermining No -Exudate Amt None Present -Wound Margin Distinct, Outline Attached -Slough/Fibrin Yes -Necrosis Amt Large (67-100%) -Necrotic Tissue Type Eschar -Texture (Nathalie-wound Skin Appearance) Assessed -Moisture (Nathalie-wound Skin Appearance Assessed ) -Color (Nathalie-wound Skin Appearance) Assessed -Temperature (Nathalie-wound Skin No Abnormality Appearance) (Pt Warm) -Tenderness on Palpation (Nathalie-wound No Skin Appearance) -Ulcer Cleansing soapy water -Foul Odor after Cleansing No #17- R HEEL -Combined with other wound No -Current Size (cm) - Length 5 -Current Size (cm) - Width 4.5 -Current Size (cm) - Depth 0.1 -Total Square Cm 22.5 -Photo Taken No -Epithelialization None Present -Tunneling No -Undermining/Tunneling No -Circular Undermining No -Exudate Amt None Present -Wound Margin Distinct, Outline Attached -Slough/Fibrin Yes -Necrosis Amt Large (67-100%) -Necrotic Tissue Type Eschar -Texture (Nathalie-wound Skin Appearance) Assessed -Moisture (Nathalie-wound Skin Appearance Assessed ) -Color (Nathalie-wound Skin Appearance) Assessed -Temperature (Nathalie-wound Skin No Abnormality Appearance) (Pt Warm) -Tenderness on Palpation (Nathalie-wound No Skin Appearance) -Ulcer Cleansing soapy water -Foul Odor after Cleansing No # 16- L HEEL -Combined with other wound No -Current Size (cm) - Length 2.8 -Current Size (cm) - Width 2.2 -Current Size (cm) - Depth 0.1 -Total Square Cm 6.16 -Photo Taken No -Epithelialization None Present -Tunneling No -Undermining/Tunneling No -Circular Undermining No -Exudate Amt None Present -Wound Margin Distinct, Outline Attached -Granulation Amt None Present (0 %) -Slough/Fibrin Yes -Necrosis Amt Large (67-100%) -Necrotic Tissue Type Eschar -Texture (Nathalie-wound Skin Appearance) Assessed -Moisture (Nathalie-wound Skin Appearance Assessed ) -Color (Nathalie-wound Skin Appearance) Assessed -Temperature (Nathalie-wound Skin No Abnormality Appearance) (Pt Warm) -Tenderness on Palpation (Nathalie-wound No Skin Appearance) -Ulcer Cleansing soapy water -Foul Odor after Cleansing No #15- SACRAL -Combined with other wound No -Current Size (cm) - Length 5.5 -Current Size (cm) - Width 3 -Current Size (cm) - Depth 1 -Total Square Cm 16.5 -Photo Taken No -Epithelialization None Present -Tunneling No -Undermining/Tunneling Yes -Undermining/Tunneling Starts (O' 12 clock) -Undermining/Tunneling Ends (O'clock) 12 -Maximum Distance (cm) 3.3 -Circular Undermining No -Exudate Amt Medium -Exudate Type Serosanguineous -Wound Margin Distinct, Outline Attached -Granulation Amt Medium (34-66%) -Granulation Quality Red -Slough/Fibrin Yes -Necrosis Amt Medium (34-66%) -Necrotic Tissue Type Adherent Slough -Texture (Nathalie-wound Skin Appearance) Assessed, Scarring -Moisture (Nathalie-wound Skin Appearance Assessed ) -Color (Nathalie-wound Skin Appearance) Assessed, Erythema -Temperature (Nathalie-wound Skin No Abnormality Appearance) (Pt Warm) -Tenderness on Palpation (Nathalie-wound Yes Skin Appearance) -Ulcer Cleansing soapy water -Foul Odor after Cleansing No -Anesthetic Used 4% Lidocaine Solution #12- L BUTTOCK POST OP -Combined with other wound No -Current Size (cm) - Length 2.5 -Current Size (cm) - Width 6.6 -Current Size (cm) - Depth 2.2 -Total Square Cm 16.50 -Photo Taken No -Epithelialization None Present -Tunneling No -Undermining/Tunneling Yes -Undermining/Tunneling Starts (O' 10 clock) -Undermining/Tunneling Ends (O'clock) 3 -Maximum Distance (cm) 2.4 -Circular Undermining No -Exudate Amt Medium -Exudate Type Serosanguineous -Wound Margin Thickened -Granulation Amt Medium (34-66%) -Granulation Quality Red -Slough/Fibrin Yes -Necrosis Amt Medium (34-66%) -Necrotic Tissue Type Adherent Slough -Texture (Nathalie-wound Skin Appearance) Assessed -Moisture (Nathalie-wound Skin Appearance Assessed ) -Color (Nathalie-wound Skin Appearance) Assessed -Temperature (Nathalie-wound Skin No Abnormality Appearance) (Pt Warm) -Tenderness on Palpation (Nathalie-wound Yes Skin Appearance) -Ulcer Cleansing soapy water -Foul Odor after Cleansing No -Anesthetic Used 4% Lidocaine Solution #13- R UPPER THIGH POST OP -Combined with other wound No -Current Size (cm) - Length 6.8 -Current Size (cm) - Width 0.6 -Current Size (cm) - Depth 0.3 -Total Square Cm 4.08 -Photo Taken No -Epithelialization None Present -Tunneling No -Undermining/Tunneling No -Circular Undermining No -Exudate Amt Small -Exudate Type Serosanguineous -Wound Margin Distinct, Outline Attached -Granulation Amt Large (67-100%) -Granulation Quality Red -Slough/Fibrin Yes -Necrosis Amt Small (1-33%) -Necrotic Tissue Type Adherent Slough -Texture (Nathalie-wound Skin Appearance) Assessed, Scarring -Moisture (Nathalie-wound Skin Appearance Assessed,Dry/ ) Scaly -Color (Nathalie-wound Skin Appearance) Assessed -Temperature (Nathalie-wound Skin No Abnormality Appearance) (Pt Warm) -Tenderness on Palpation (Nathalie-wound No Skin Appearance) -Ulcer Cleansing Rinsed/ Irrigated with Saline -Foul Odor after Cleansing No -Anesthetic Used 4% Lidocaine Solution #11 Right Buttock post op -Combined with other wound No -Current Size (cm) - Length 6.6 -Current Size (cm) - Width 3 -Current Size (cm) - Depth 3.6 -Total Square Cm 19.8 -Photo Taken No -Epithelialization None Present -Tunneling No -Undermining/Tunneling Yes -Undermining/Tunneling Starts (O' 12 clock) -Undermining/Tunneling Ends (O'clock) 6 -Maximum Distance (cm) 4 -Exudate Amt Medium -Exudate Type Serosanguineous -Wound Margin Thickened & Rolled Under -Granulation Amt Medium (34-66%) -Granulation Quality Red -Slough/Fibrin Yes -Necrosis Amt Medium (34-66%) -Necrotic Tissue Type Adherent Slough -Structure Exposed Bone -Texture (Nathalie-wound Skin Appearance) Assessed, Scarring -Moisture (Nathalie-wound Skin Appearance Assessed ) -Color (Nathalie-wound Skin Appearance) Assessed -Temperature (Nathalie-wound Skin No Abnormality Appearance) (Pt Warm) -Tenderness on Palpation (Nathalie-wound Yes Skin Appearance) -Ulcer Cleansing soapy water -Foul Odor after Cleansing No -Anesthetic Used 4% Lidocaine Solution WC - Nurse 2 - General Ulcer CM Notes Start: 10/28/19 10:33 Freq: Status: Active Protocol: Activity Type Activity Date Activity User E-Sign Co-Sign Detail Recorded Client Recorded Date Recorded By Document 10/28/19 14:25 ARNOLD [id number] 10/28/19 14:40 ARNOLD 10/28/19 14:25 Wound Center Nurse 2 [Procedure/Treatment] #19- R 2ND TOE -Correct Patient No -Correct Side, Site, Position No -Correct Procedure No -Procedure Performed No #18- R GREAT TOE -Correct Patient No -Correct Side, Site, Position No -Correct Procedure No -Procedure Performed No #17- R HEEL -Correct Patient No -Correct Side, Site, Position No -Correct Procedure No -Procedure Performed No # 16- L HEEL -Correct Patient No -Correct Side, Site, Position No -Correct Procedure No -Procedure Performed No #15- SACRAL -Time 14:28 -Correct Patient Yes -Correct Side, Site, Position Yes -Correct Procedure Yes -Procedure Performed Yes -Type of Procedure Debridement -Clinical Debridement Muscle / Fascia -Tissue Removed Muscle -Post Debridement (cm) - Length 5.5 -Post Debridement (cm) - Width 3.5 -Post Debridement (cm) - Depth 1.5 -Total Square (Post) (cm) 19.25 -Area of Debridement (cm) - Length 5.5 -Area of Debridement (cm) - Width 3.5 -Total Square (Area) (cm) 19.25 -Tunneling Yes -Tunneling Position (O'clock) 2 -Tunneling Distance (cm) 3.2 -Tunneling Position #2 (O'clock) 5 -Tunneling Distance #2 (cm) 3.2 -Undermining/Tunneling No -Circular Undermining No -Ulcer Cleansing Rinsed/ Irrigated with Saline -Foul Odor after Cleansing No -Bioengineered Tissue No -Bleeding Controlled with Pressure -Offloading No -Treatment Response Procedure Tolerated Well -Debridement - Muscle / Fascia, 1st Yes 20sq cm #12- L BUTTOCK POST OP -Time 14:33 -Correct Patient Yes -Correct Side, Site, Position Yes -Correct Procedure Yes -Procedure Performed Yes -Type of Procedure Debridement -Clinical Debridement Muscle / Fascia -Tissue Removed Muscle -Post Debridement (cm) - Length 3.2 -Post Debridement (cm) - Width 7.3 -Post Debridement (cm) - Depth 1.1 -Total Square (Post) (cm) 23.36 -Area of Debridement (cm) - Length 3.2 -Area of Debridement (cm) - Width 7.3 -Total Square (Area) (cm) 23.36 -Tunneling No -Undermining/Tunneling Yes -Undermining/Tunneling Starts (O' 9 clock) -Undermining/Tunneling Ends (O'clock) 12 -Maximum Distance (cm) 2.2 -Circular Undermining No -Ulcer Cleansing Rinsed/ Irrigated with Saline -Foul Odor after Cleansing No -Bioengineered Tissue No -Bleeding Controlled with Pressure -Offloading No -Treatment Response Procedure Tolerated Well -Debridement - Muscle / Fascia, 1st Yes 20sq cm -Debridement, Muscle/Fascia, ea addt' 1 l 20sq cm or part thereof #13- R UPPER THIGH POST OP -Time 14:29 -Correct Patient Yes -Correct Side, Site, Position Yes -Correct Procedure Yes -Procedure Performed Yes -Type of Procedure Debridement -Clinical Debridement Subcutaneous -Post Debridement (cm) - Length 2.5 -Post Debridement (cm) - Width 0.8 -Post Debridement (cm) - Depth 0.5 -Total Square (Post) (cm) 2.00 -Area of Debridement (cm) - Length 2.5 -Area of Debridement (cm) - Width 0.8 -Total Square (Area) (cm) 2.00 -Tunneling No -Undermining/Tunneling No -Circular Undermining No -Wound/Ulcer Outcome Not Healed -Ulcer Cleansing Rinsed/ Irrigated with Saline -Foul Odor after Cleansing No -Bioengineered Tissue No -Bleeding Controlled with Pressure -Treatment Response Procedure Tolerated Well -Debridement - Subq, 1st 20sq cm Yes #11 Right Buttock post op -Time 14:29 -Correct Patient Yes -Correct Side, Site, Position Yes -Correct Procedure Yes -Procedure Performed Yes -Type of Procedure Debridement -Clinical Debridement Muscle / Fascia -Tissue Removed Muscle -Post Debridement (cm) - Length 7 -Post Debridement (cm) - Width 3 -Post Debridement (cm) - Depth 3.5 -Total Square (Post) (cm) 21 -Area of Debridement (cm) - Length 7 -Area of Debridement (cm) - Width 3 -Total Square (Area) (cm) 21 -Tunneling No -Undermining/Tunneling Yes -Undermining/Tunneling Starts (O' 12 clock) -Undermining/Tunneling Ends (O'clock) 2 -Maximum Distance (cm) 4.0 -Circular Undermining No -Wound/Ulcer Outcome Not Healed -Ulcer Cleansing Rinsed/ Irrigated with Saline -Foul Odor after Cleansing No -Bioengineered Tissue No -Bleeding Controlled with Pressure -Offloading No -Treatment Response Procedure Tolerated Well -Debridement - Muscle / Fascia, 1st Yes 20sq cm -Debridement, Muscle/Fascia, ea addt' 1 l 20sq cm or part thereof [See Physician Procedure note for Specifics] Pain Scale: 0-10 Numeric [Pain] -Is Patient Pain Free? Yes Debridement Note Post-Debridement Measurements/Treatment WC - Nurse 2 - General Ulcer CM Notes Start: 10/28/19 10:33 Freq: Status: Active Protocol: Activity Type Activity Date Activity User E-Sign Co-Sign Detail Recorded Client Recorded Date Recorded By Document 10/28/19 14:25 [id number] 10/28/19 14:40 10/28/19 14:25 Wound Center Nurse 2 #19- R 2ND TOE -Correct Patient No -Correct Side, Site, Position No -Correct Procedure No -Procedure Performed No #18- R GREAT TOE -Correct Patient No -Correct Side, Site, Position No -Correct Procedure No -Procedure Performed No #17- R HEEL -Correct Patient No -Correct Side, Site, Position No -Correct Procedure No -Procedure Performed No # 16- L HEEL -Correct Patient No -Correct Side, Site, Position No -Correct Procedure No -Procedure Performed No #15- SACRAL -Time 14:28 -Correct Patient Yes -Correct Side, Site, Position Yes -Correct Procedure Yes -Procedure Performed Yes -Type of Procedure Debridement -Clinical Debridement Muscle / Fascia -Tissue Removed Muscle -Post Debridement (cm) - Length 5.5 -Post Debridement (cm) - Width 3.5 -Post Debridement (cm) - Depth 1.5 -Total Square (Post) (cm) 19.25 -Area of Debridement (cm) - Length 5.5 -Area of Debridement (cm) - Width 3.5 -Total Square (Area) (cm) 19.25 -Tunneling Yes -Tunneling Position (O'clock) 2 -Tunneling Distance (cm) 3.2 -Tunneling Position #2 (O'clock) 5 -Tunneling Distance #2 (cm) 3.2 -Undermining/Tunneling No -Circular Undermining No -Ulcer Cleansing Rinsed/ Irrigated with Saline -Foul Odor after Cleansing No -Bioengineered Tissue No -Bleeding Controlled with Pressure -Offloading No -Treatment Response Procedure Tolerated Well -Debridement - Muscle / Fascia, 1st Yes 20sq cm #12- L BUTTOCK POST OP -Time 14:33 -Correct Patient Yes -Correct Side, Site, Position Yes -Correct Procedure Yes -Procedure Performed Yes -Type of Procedure Debridement -Clinical Debridement Muscle / Fascia -Tissue Removed Muscle -Post Debridement (cm) - Length 3.2 -Post Debridement (cm) - Width 7.3 -Post Debridement (cm) - Depth 1.1 -Total Square (Post) (cm) 23.36 -Area of Debridement (cm) - Length 3.2 -Area of Debridement (cm) - Width 7.3 -Total Square (Area) (cm) 23.36 -Tunneling No -Undermining/Tunneling Yes -Undermining/Tunneling Starts (O'clock 9 ) -Undermining/Tunneling Ends (O'clock) 12 -Maximum Distance (cm) 2.2 -Circular Undermining No -Ulcer Cleansing Rinsed/ Irrigated with Saline -Foul Odor after Cleansing No -Bioengineered Tissue No -Bleeding Controlled with Pressure -Offloading No -Treatment Response Procedure Tolerated Well -Debridement - Muscle / Fascia, 1st Yes 20sq cm -Debridement, Muscle/Fascia, ea addt'l 1 20sq cm or part thereof #13- R UPPER THIGH POST OP -Time 14:29 -Correct Patient Yes -Correct Side, Site, Position Yes -Correct Procedure Yes -Procedure Performed Yes -Type of Procedure Debridement -Clinical Debridement Subcutaneous -Post Debridement (cm) - Length 2.5 -Post Debridement (cm) - Width 0.8 -Post Debridement (cm) - Depth 0.5 -Total Square (Post) (cm) 2.00 -Area of Debridement (cm) - Length 2.5 -Area of Debridement (cm) - Width 0.8 -Total Square (Area) (cm) 2.00 -Tunneling No -Undermining/Tunneling No -Circular Undermining No -Wound/Ulcer Outcome Not Healed -Ulcer Cleansing Rinsed/ Irrigated with Saline -Foul Odor after Cleansing No -Bioengineered Tissue No -Bleeding Controlled with Pressure -Treatment Response Procedure Tolerated Well -Debridement - Subq, 1st 20sq cm Yes #11 Right Buttock post op -Time 14:29 -Correct Patient Yes -Correct Side, Site, Position Yes -Correct Procedure Yes -Procedure Performed Yes -Type of Procedure Debridement -Clinical Debridement Muscle / Fascia -Tissue Removed Muscle -Post Debridement (cm) - Length 7 -Post Debridement (cm) - Width 3 -Post Debridement (cm) - Depth 3.5 -Total Square (Post) (cm) 21 -Area of Debridement (cm) - Length 7 -Area of Debridement (cm) - Width 3 -Total Square (Area) (cm) 21 -Tunneling No -Undermining/Tunneling Yes -Undermining/Tunneling Starts (O'clock 12 ) -Undermining/Tunneling Ends (O'clock) 2 -Maximum Distance (cm) 4.0 -Circular Undermining No -Wound/Ulcer Outcome Not Healed -Ulcer Cleansing Rinsed/ Irrigated with Saline -Foul Odor after Cleansing No -Bioengineered Tissue No -Bleeding Controlled with Pressure -Offloading No -Treatment Response Procedure Tolerated Well -Debridement - Muscle / Fascia, 1st Yes 20sq cm -Debridement, Muscle/Fascia, ea addt'l 1 20sq cm or part thereof Pain Scale: 0-10 Numeric Is Patient Pain Free? Yes Wound debrided: #11 Right ischial area. Laterality: Right Wound Grade/Stage: IV. Type of Debridement: Excisional debridement Anesthesia Used: 4% Lidocaine Solution Depth: Down to and including healthy tissue, in the subcutaneous layer, to muscle, to bone - bone is exposed but not debrided. Percentage of wound debrided: 100 Instrument Used: 7mm curette Tissue Removed: subcutaneous tissue and muscle. Severity: Fat Layer Exposed - muscle is exposed. bone is exposed but not debrided. Amount of bleeding with debridement: Mild Bleeding Controlled with: Pressure Patient tolerated procedure well - Additional Wound Wound debrided: #12 Left ischial area. Laterality: Left Wound Grade/Stage: IV. Type of Debridement: Excisional debridement Anesthesia Used: 4% Lidocaine Solution Depth: Down to and including healthy tissue, in the subcutaneous layer, to muscle, to bone - bone is exposed but not debrided. Percentage of wound debrided: 100 Instrument Used: 7mm curette Tissue Removed: subcutaneous tissue and muscle. Severity: Fat Layer Exposed - muscle is exposed. bone is exposed but not debrided. Amount of bleeding with debridement: Mild Bleeding Controlled with: Pressure Patient tolerated procedure: Patient tolerated procedure well - Additional Wound Wound debrided: #15 Sacral area. Laterality: Not Applicable Wound Grade/Stage: IV. Type of Debridement: Excisional debridement Anesthesia Used: 4% Lidocaine Solution Depth: Down to and including healthy tissue, in the subcutaneous layer, to muscle, to bone - bone is exposed but not debrided. Percentage of wound debrided: 100 Instrument Used: 7mm curette Tissue Removed: subcutaneous tissue and muscle. Severity: Fat Layer Exposed - muscle is exposed. bone is exposed but not debrided. Amount of bleeding with debridement: Mild Bleeding Controlled with: Pressure Patient tolerated procedure: Patient tolerated procedure well - Additional Wound Wound debrided: #13 Right inguinal and proximal thigh area. Laterality: Right Wound Grade/Stage: 3. Type of Debridement: Excisional debridement Anesthesia Used: 4% Lidocaine Solution Depth: Down to and including healthy tissue, in the subcutaneous layer Percentage of wound debrided: 100 Instrument Used: 3mm curette Tissue Removed: subcutaneous tissue. 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 Recurrent right ischial pressure sore, Stage IV. 2. 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 3. Osteomyelitis. 4. History of MRSA. 5. Left ischial pressure sore, Stage IV. 6. History of anal CA treated with chemotherapy and radiation therapy. 7. Sacral pressure sore, Stage IV. 8. Nonhealing ulcer right inguinal and proximal thigh area. Plan: Continue Dakin's dressing changes to bilateral ischial pressure sores and sacral pressure sore twice a day. Continue Silver dressing changes to right inguinal and proximal thigh ulcer. Continue Vancomycin and Meropenem for Enterobacter aerogenes, Proteus mirabilis, Acinetobacter baumannii, Pseudomonas aeroginosa, Stenotrophomonas maltohilia, Staphylococcus cohnii urealyti, and MRSA. Prealbumin from 10/02/19 was 14.1. Encourage nutritional supplementation with protein to help the healing process. Followup 2 weeks. [id number]: [id number] Global Visit - ICD-10 - Z48.89, L89.314, L89.324, L89.154, L98.492, M86.651, T66.xxxS, L59.8, A49.02, Z85.048
== END 2019-11-11 23:59 ==
LOC: WC 13:00
PROVIDERS: PCP Internal Medicine; Visit Provider Nurse Practitioner Family
DX: L89.224 Pressure ulcer of left hip, stage 4 (principal); L89.214 Pressure ulcer of right hip, stage 4; L89.154 Pressure ulcer of sacral region, stage 4; L89.620 Pressure ulcer of left heel, unstageable; L89.610 Pressure ulcer of right heel, unstageable; I73.9 Peripheral vascular disease, unspecified; Z86.14 Personal history of Methicillin resistant Staphylococcus aureus infection; Z85.048 Personal history of other malignant neoplasm of rectum, rectosigmoid junction, and anus; Z92.21 Personal history of antineoplastic chemotherapy; Z92.3 Personal history of irradiation; L97.112 Non-pressure chronic ulcer of right thigh with fat layer exposed
CPT/HCPCS: 11042; 11043; 11045; 11046

== ENCOUNTER 2019-12-02 09:34 | Outpatient (RCR) | payer MEDICARE, MEDICAID, SELFPAY ==
[2019-11-12 00:16] VITALS: BP 164/67; PULSE 76; RESP 16; TEMP 36.4
--- NOTE | 2019-11-25 12:20 | WC ---
Patient arrived via stretcher, no appointment could be found for today. Last appointment scheduled was for 11/11/19. Pt was offered to be seen today since he was here, but facility asked that he be returned without being seen.
[2019-12-02 09:45] VITALS: BP 138/69; PULSE 77; RESP 18; TEMP 36.3; BMI 24.4
--- NOTE | 2019-12-02 13:03 | PN.PCM_ITS ---
(1) Right ischial pressure sore, stage 4 Status: Chronic Current Visit: Yes Code(s): L89.314 - Pressure ulcer of right buttock, stage 4 (2) Pressure sore of left ischium, stage 4 Status: Chronic Current Visit: Yes Code(s): L89.324 - Pressure ulcer of left buttock, stage 4 (3) Sacral pressure ulcer Status: Acute Current Visit: Yes Qualifiers: Pressure injury stage: stage 4 Qualified Code(s): L89.154 - Pressure ulcer of sacral region, stage 4 Code(s): L89.159 - Pressure ulcer of sacral region, unspecified stage (4) Non-healing open wound of right groin Status: Chronic Current Visit: Yes Code(s): S31.103A - Unspecified open wound of abdominal wall, right lower quadrant without penetration into peritoneal cavity, initial encounter (5) Pressure ulcer, heel, right, unstageable Status: Chronic Current Visit: Yes Code(s): L89.610 - Pressure ulcer of right heel, unstageable (6) Unstageable pressure ulcer of left heel Status: Chronic Current Visit: Yes Code(s): L89.620 - Pressure ulcer of left heel, unstageable (7) Pressure ulcer of toe of right foot Status: Chronic Current Visit: Yes Qualifiers: Pressure injury stage: unstageable Qualified Code(s): L89.890 - Pressure ulcer of other site, unstageable Code(s): L89.899 - Pressure ulcer of other site, unspecified stage (8) Toe necrosis Status: Chronic Current Visit: Yes Code(s): I96 - Gangrene, not elsewhere classified (9) Peripheral vascular disease Status: Chronic Current Visit: No Code(s): I73.9 - Peripheral vascular disease, unspecified (10) Malnutrition Status: Suspected Current Visit: No Code(s): E46 - Unspecified protein- calorie malnutrition (11) Debility Status: Chronic Current Visit: No Code(s): R53.81 - Other malaise Type of Wound Date of Service: 12/02/19 Chief Complaint: Recurrent right ischial pressure sore, Stage IV, and left ischial pressure sore, Stage IV, and sacral pressure sore, Stage IV, and right inguinal and proximal thigh ulcer. History of Wound: Surgery 10/01/19 1. Excision recurrent right ischial pressure sore, Stage IV, with partial ostectomy for osteomyelitis. 2. Excision left ischial pressure sore, Stage IV, with partial ostectomy for osteomyelitis. 3. Excision sacral pressure sore, Stage IV, with partial ostectomy for osteomyelitis. Surgery 08/21/19 - Surgical preparation right inguinal area and right proximal thigh area with incision and drainage and excisional debridement submuscular abscess. Surgery 08/13/19 - 1. Excision recurrent right ischial pressure sore, Stage IV, with partial ostectomy for osteomyelitis. 2. Excision necrotic left ischial pressure sore, Stage IV, with partial ostectomy for osteomyelitis. Wound care - Dakin's to Bilateral ischial ulcers and sacral ulcer. Will discontinue Aquacel AG and start hydrogel collagenase and Adaptic to right inguinal/proximal thigh ulcer. Betadine to bilateral heels and right great and second toe. Operative culture from 10/01/19 - Right ischial soft tissue - Enterobacter aerogenes and Proteus mirabilis. Right ischial bone - Acinetobacter baumannii, Pseudomonas aeroginosa, Stenotrophomonas maltohilia. Left ischial soft tissue - Enterobacter aerogenes, Proteus mirabilis, and Staphylococcus cohnii urealyti. Left ischial bone - Proteus mirabilis, Acinetobacter baumannii, Pseudomonas aeroginosa. Saral soft tissue - Pseudomonas aeroginosa and Proteus mirabilis. Sacral bone - Pseudomonas aeroginosa and Enterobacter aerogenes. Deep wound culture of right second toe from 09/27/19 - MRSA. He was discharged to [facility] on Vancomycin and Mereopenem. Operative culture from 08/21/19 - Proteus mirabilis. He was discharged on Cefepime IV which he has completed. Pathology 08/13/19 - positive for acute osteomyelitis in right ischial bone. Pathology 10/01/19 - positive for acute osteomyelitis in left ischial bone. Prealbumin from 10/02/19 was 14.1. Encourage nutritional supplementation with protein to help the healing process. CT Pelvis from 08/12/19 showed large deep decubitus ulcer posterior to the right ischial tuberosity. with associated sclerosis and osseous fragmentation and erosion, increased in extent and severity in the interval. There is demonstrated at this time fragmentation of the superolateral right acetabular rim raising the suspicion of osteomyelitis. There is a deep soft tissue low attenuation region with several punctate air densities anterior to the right hip measuring 5.6 x 4.0 x 6.4 cm suggestive of phlegmon. This is in a region of previous surgery. There is edema of soft tissue fat posterior to this area.. Today he denies fever. His appetite is good. Progress of Wound: The patient denies any fever, chills, nausea, vomiting, or diarrhea. Denies any signs of infection, including increasing pain, redness, swelling, or drainage from affected area. The sacral and left buttock ulcers have increased in size. The right buttock and right anterior groin/thigh ulcers have improved in size. Right anterior groin/thigh ulcer is nearly healed, with no recent drainage. - Physical Exam Vital Signs Temp Pulse Resp BP 97.3 F L 77 18 138/69 H 12/02/19 09:45 12/02/19 09:45 12/02/19 09:45 12/02/19 09:45 General: Alert, Oriented x3, Cooperative HEENT: Atraumatic Oral: Moist Mucosa Lungs: Normal air movement Cardiovascular: Regular rate Skin: Ulcer/ Wound - Sacral and right and left ischial ulcers with moderate amount of biofilm present. Right groin/thigh ulcer with granulation tissue present and no drainage. Bilateral heels with a dry eschar present. Right great toe and second toe are dry and necrotic. Wound Measurements and Assessment WC - Nurse 1 - General Ulcer Measurement Start: 12/02/19 09:38 Freq: Status: Active Protocol: Activity Type Activity Date Activity User E-Sign Co-Sign Detail Recorded Client Recorded Date Recorded By Document 12/02/19 09:45 DL [id number] 12/02/19 09:59 DL 12/02/19 09:45 Wound Center Nurse 1 [Ulcer Assessment] #15- SACRAL -Current Size (cm) - Length 5.5 -Current Size (cm) - Width 4.5 -Current Size (cm) - Depth 1.4 -Total Square Cm 24.75 -Photo Taken No -Epithelialization None Present -Tunneling No -Undermining/Tunneling Yes -Undermining/Tunneling Starts (O' 12 clock) -Undermining/Tunneling Ends (O'clock) 12 -Maximum Distance (cm) 1.7 -Circular Undermining Yes -Exudate Amt Medium -Exudate Type Serosanguineous -Wound Margin Distinct, Outline Attached -Granulation Amt Large (67-100%) -Granulation Quality Pale,Red -Slough/Fibrin Yes -Necrosis Amt Small (1-33%) -Necrotic Tissue Type Adherent Slough -Texture (Nathalie-wound Skin Appearance) Assessed, Scarring -Moisture (Nathalie-wound Skin Appearance Assessed ) -Color (Nathalie-wound Skin Appearance) Assessed -Temperature (Nathalie-wound Skin No Abnormality Appearance) (Pt Warm) -Tenderness on Palpation (Nathalie-wound Yes Skin Appearance) -Ulcer Cleansing soapy water -Foul Odor after Cleansing No -Anesthetic Used 4% Lidocaine Solution #12- L BUTTOCK POST OP -Combined with other wound No -Current Size (cm) - Length 4 -Current Size (cm) - Width 6 -Current Size (cm) - Depth 1.4 -Total Square Cm 24 -Photo Taken No -Epithelialization None Present -Tunneling No -Undermining/Tunneling Yes -Undermining/Tunneling Starts (O' 9 clock) -Undermining/Tunneling Ends (O'clock) 2 -Maximum Distance (cm) 2.1 -Circular Undermining No -Exudate Amt Medium -Exudate Type Serosanguineous -Wound Margin Distinct, Outline Attached -Granulation Amt Large (67-100%) -Granulation Quality Red -Slough/Fibrin Yes -Necrosis Amt Small (1-33%) -Necrotic Tissue Type Adherent Slough -Texture (Nathalie-wound Skin Appearance) Assessed, Scarring -Moisture (Nathalie-wound Skin Appearance Assessed ) -Color (Nathalie-wound Skin Appearance) Assessed -Temperature (Nathalie-wound Skin No Abnormality Appearance) (Pt Warm) -Tenderness on Palpation (Nathalie-wound Yes Skin Appearance) -Ulcer Cleansing soapy water -Foul Odor after Cleansing No -Anesthetic Used 4% Lidocaine Solution #13- R UPPER THIGH POST OP -Combined with other wound No -Current Size (cm) - Length 0.1 -Current Size (cm) - Width 0.1 -Current Size (cm) - Depth 0.1 -Total Square Cm 0.01 -Photo Taken No -Epithelialization None Present -Tunneling No -Undermining/Tunneling No -Circular Undermining No -Exudate Amt None Present -Wound Margin Distinct, Outline Attached -Granulation Amt None Present (0 %) -Slough/Fibrin Yes -Necrosis Amt Large (67-100%) -Necrotic Tissue Type Eschar -Texture (Nathalie-wound Skin Appearance) Assessed, Scarring -Moisture (Nathalie-wound Skin Appearance Assessed,Dry/ ) Scaly -Color (Nathalie-wound Skin Appearance) Assessed, Ecchymosis -Tenderness on Palpation (Nathalie-wound No Skin Appearance) -Ulcer Cleansing Rinsed/ Irrigated with Saline -Foul Odor after Cleansing No -Anesthetic Used 4% Lidocaine Solution #11 Right Buttock post op -Combined with other wound No -Current Size (cm) - Length 7.4 -Current Size (cm) - Width 1.1 -Current Size (cm) - Depth 2.2 -Total Square Cm 8.14 -Photo Taken No -Epithelialization None Present -Tunneling Yes -Tunneling Position (O'clock) 12 -Tunneling Distance (cm) 12 -Tunneling Position #2 (O'clock) 2 -Undermining/Tunneling No -Circular Undermining Yes -Exudate Amt Medium -Exudate Type Serosanguineous -Wound Margin Distinct, Outline Attached -Granulation Amt Small (1-33%) -Granulation Quality Pale,Red -Slough/Fibrin Yes -Necrosis Amt Large (67-100%) -Necrotic Tissue Type Adherent Slough -Structure Exposed Bone -Texture (Nathalie-wound Skin Appearance) Assessed, Scarring -Moisture (Nathalie-wound Skin Appearance Assessed ) -Color (Nathalie-wound Skin Appearance) Assessed -Temperature (Nathalie-wound Skin No Abnormality Appearance) (Pt Warm) -Tenderness on Palpation (Nathalie-wound Yes Skin Appearance) -Ulcer Cleansing soapy water -Foul Odor after Cleansing No -Anesthetic Used 4% Lidocaine Solution WC - Nurse 2 - General Ulcer CM Notes Start: 12/02/19 09:38 Freq: Status: Active Protocol: Activity Type Activity Date Activity User E-Sign Co-Sign Detail Recorded Client Recorded Date Recorded By Document 12/02/19 10:15 ARNOLD [id number] 12/02/19 10:45 ARNOLD 12/02/19 10:15 Wound Center Nurse 2 [Procedure/Treatment] #19- R 2ND TOE -Correct Patient No -Correct Side, Site, Position No -Correct Procedure No -Procedure Performed No #18- R GREAT TOE -Correct Patient No -Correct Side, Site, Position No -Correct Procedure No -Procedure Performed No #17- R HEEL -Correct Patient No -Correct Side, Site, Position No -Correct Procedure No -Procedure Performed No # 16- L HEEL -Correct Patient No -Correct Side, Site, Position No -Correct Procedure No -Procedure Performed No #15- SACRAL -Time 10:20 -Correct Patient Yes -Correct Side, Site, Position Yes -Correct Procedure Yes -Procedure Performed Yes -Type of Procedure Debridement -Clinical Debridement Muscle / Fascia -Tissue Removed Muscle -Post Debridement (cm) - Length 5.2 -Post Debridement (cm) - Width 4.6 -Post Debridement (cm) - Depth 1.5 -Total Square (Post) (cm) 23.92 -Area of Debridement (cm) - Length 5.2 -Area of Debridement (cm) - Width 4.6 -Total Square (Area) (cm) 23.92 -Tunneling No -Undermining/Tunneling Yes -Undermining/Tunneling Starts (O' 2 clock) -Undermining/Tunneling Ends (O'clock) 4 -Maximum Distance (cm) 1.8 -Circular Undermining No -Wound/Ulcer Outcome Not Healed -Ulcer Cleansing Rinsed/ Irrigated with Saline -Bioengineered Tissue No -Bleeding Controlled with Pressure -Offloading No -Treatment Response Procedure Tolerated Well -Debridement - Muscle / Fascia, 1st Yes 20sq cm -Debridement, Muscle/Fascia, ea addt' 3 l 20sq cm or part thereof #12- L BUTTOCK POST OP -Time 10:19 -Correct Patient Yes -Correct Side, Site, Position Yes -Correct Procedure Yes -Procedure Performed Yes -Type of Procedure Debridement -Clinical Debridement Muscle / Fascia -Tissue Removed Muscle -Post Debridement (cm) - Length 4.1 -Post Debridement (cm) - Width 6.5 -Post Debridement (cm) - Depth 1.5 -Total Square (Post) (cm) 26.65 -Area of Debridement (cm) - Length 4.1 -Area of Debridement (cm) - Width 6.5 -Total Square (Area) (cm) 26.65 -Tunneling No -Undermining/Tunneling Yes -Undermining/Tunneling Starts (O' 9 clock) -Undermining/Tunneling Ends (O'clock) 12 -Maximum Distance (cm) 1.8 -Undermining/Tunneling Starts #2 (O' 12 clock) -Undermining/Tunneling Ends #2 (O' 1 clock) -Maximum Distance #2 (cm) 1.5 -Circular Undermining No -Wound/Ulcer Outcome Not Healed -Ulcer Cleansing Rinsed/ Irrigated with Saline -Foul Odor after Cleansing No -Bioengineered Tissue No -Bleeding Controlled with Pressure -Offloading No -Treatment Response Procedure Tolerated Well -Debridement - Muscle / Fascia, 1st No 20sq cm #13- R UPPER THIGH POST OP -Time 10:41 -Correct Patient Yes -Correct Side, Site, Position Yes -Correct Procedure Yes -Procedure Performed Yes -Type of Procedure Debridement -Clinical Debridement Subcutaneous -Tissue Removed Subcutaneous -Post Debridement (cm) - Length 1.8 -Post Debridement (cm) - Width 0.5 -Post Debridement (cm) - Depth 0.1 -Total Square (Post) (cm) 0.90 -Area of Debridement (cm) - Length 1.8 -Area of Debridement (cm) - Width 0.5 -Total Square (Area) (cm) 0.90 -Tunneling No -Undermining/Tunneling No -Circular Undermining No -Wound/Ulcer Outcome Not Healed -Ulcer Cleansing Rinsed/ Irrigated with Saline -Foul Odor after Cleansing No -Bioengineered Tissue No -Bleeding Controlled with Pressure -Offloading Yes -Type of Offloading Surgical Shoe -Treatment Response Procedure Tolerated Well -Debridement - Subq, 1st 20sq cm Yes #11 Right Buttock post op -Time 10:30 -Correct Patient Yes -Correct Side, Site, Position Yes -Correct Procedure Yes -Procedure Performed Yes -Type of Procedure Debridement -Clinical Debridement Muscle / Fascia -Tissue Removed Muscle -Post Debridement (cm) - Length 7.5 -Post Debridement (cm) - Width 2.5 -Post Debridement (cm) - Depth 2.5 -Total Square (Post) (cm) 18.75 -Area of Debridement (cm) - Length 7.5 -Area of Debridement (cm) - Width 2.5 -Total Square (Area) (cm) 18.75 -Tunneling No -Undermining/Tunneling Yes -Undermining/Tunneling Starts (O' 12 clock) -Undermining/Tunneling Ends (O'clock) 2 -Maximum Distance (cm) 2 -Circular Undermining No -Wound/Ulcer Outcome Not Healed -Ulcer Cleansing Rinsed/ Irrigated with Saline -Foul Odor after Cleansing No -Bioengineered Tissue No -Bleeding Controlled with Pressure -Offloading No -Treatment Response Procedure Tolerated Well -Debridement - Muscle / Fascia, 1st No 20sq cm [See Physician Procedure note for Specifics] Pain Scale: 0-10 Numeric [Pain] -Is Patient Pain Free? Yes - Nurse 3 - General Ulcer D/C NN Start: 12/02/19 09:38 Freq: Status: Active Protocol: Activity Type Activity Date Activity User E-Sign Co-Sign Detail Recorded Client Recorded Date Recorded By Document 12/02/19 10:53 DL [id number] 12/02/19 10:59 DL 12/02/19 10:53 Wound Care Nurse 3 [Wound Dressing] #19- R 2ND TOE -Other Dressing betadine -Primary Dressing Covered/Secured Dry Gauze & with Roll Gauze, Secured with Tape #18- R GREAT TOE -Foul Odor after Cleansing No -Other Dressing betadine -Primary Dressing Covered/Secured Dry Gauze & with Roll Gauze, Secured with Tape #17- R HEEL -Foul Odor after Cleansing No -Other Dressing betadine -Primary Dressing Covered/Secured Dry Gauze & with Roll Gauze, Secured with Tape # 16- L HEEL -Foul Odor after Cleansing No -Other Dressing betadine -Primary Dressing Covered/Secured Dry Gauze & with Roll Gauze, Secured with Tape #15- SACRAL -Ulcer Cleansing Rinsed/ Irrigated with Saline -Other Dressing Dakins -Primary Dressing Covered/Secured Dry Gauze, with Secured with Tape #12- L BUTTOCK POST OP -Ulcer Cleansing Rinsed/ Irrigated with Saline -Foul Odor after Cleansing No -Other Dressing Dakins -Primary Dressing Covered/Secured Dry Gauze, with Secured with Tape #13- R UPPER THIGH POST OP -Ulcer Cleansing Rinsed/ Irrigated with Saline -Foul Odor after Cleansing No -Other Dressing hydrogel/ adaptic -Primary Dressing Covered/Secured Dry Gauze,Other with -Other Covering adaptic #11 Right Buttock post op -Ulcer Cleansing Rinsed/ Irrigated with Saline -Foul Odor after Cleansing No -Other Dressing dakins -Primary Dressing Covered/Secured Dry Gauze, with Secured with Tape Pain Scale: 0-10 Numeric [Pain] -Is Patient Pain Free? Yes - Visit Discharge [Visit Discharge Information] -Discharge Condition Stable -Ambulatory Status Stretcher -Transportation Ambulance [Facility Notification] -Facility Type Long-Term Care Facility -Orders Sent Yes Musculoskeletal: Tenderness - To palpation/debridement Psych/Mental Status: Normal Affect, Appropriate Debridement Note Post-Debridement Measurements/Treatment WC - Nurse 2 - General Ulcer CM Notes Start: 12/02/19 09:38 Freq: Status: Active Protocol: Activity Type Activity Date Activity User E-Sign Co-Sign Detail Recorded Client Recorded Date Recorded By Document 12/02/19 10:15 ARNOLD [id number] 12/02/19 10:45 ARNOLD 12/02/19 10:15 Wound Center Nurse 2 #19- R 2ND TOE -Correct Patient No -Correct Side, Site, Position No -Correct Procedure No -Procedure Performed No #18- R GREAT TOE -Correct Patient No -Correct Side, Site, Position No -Correct Procedure No -Procedure Performed No #17- R HEEL -Correct Patient No -Correct Side, Site, Position No -Correct Procedure No -Procedure Performed No # 16- L HEEL -Correct Patient No -Correct Side, Site, Position No -Correct Procedure No -Procedure Performed No #15- SACRAL -Time 10:20 -Correct Patient Yes -Correct Side, Site, Position Yes -Correct Procedure Yes -Procedure Performed Yes -Type of Procedure Debridement -Clinical Debridement Muscle / Fascia -Tissue Removed Muscle -Post Debridement (cm) - Length 5.2 -Post Debridement (cm) - Width 4.6 -Post Debridement (cm) - Depth 1.5 -Total Square (Post) (cm) 23.92 -Area of Debridement (cm) - Length 5.2 -Area of Debridement (cm) - Width 4.6 -Total Square (Area) (cm) 23.92 -Tunneling No -Undermining/Tunneling Yes -Undermining/Tunneling Starts (O'clock 2 ) -Undermining/Tunneling Ends (O'clock) 4 -Maximum Distance (cm) 1.8 -Circular Undermining No -Wound/Ulcer Outcome Not Healed -Ulcer Cleansing Rinsed/ Irrigated with Saline -Bioengineered Tissue No -Bleeding Controlled with Pressure -Offloading No -Treatment Response Procedure Tolerated Well -Debridement - Muscle / Fascia, 1st Yes 20sq cm -Debridement, Muscle/Fascia, ea addt'l 3 20sq cm or part thereof #12- L BUTTOCK POST OP -Time 10:19 -Correct Patient Yes -Correct Side, Site, Position Yes -Correct Procedure Yes -Procedure Performed Yes -Type of Procedure Debridement -Clinical Debridement Muscle / Fascia -Tissue Removed Muscle -Post Debridement (cm) - Length 4.1 -Post Debridement (cm) - Width 6.5 -Post Debridement (cm) - Depth 1.5 -Total Square (Post) (cm) 26.65 -Area of Debridement (cm) - Length 4.1 -Area of Debridement (cm) - Width 6.5 -Total Square (Area) (cm) 26.65 -Tunneling No -Undermining/Tunneling Yes -Undermining/Tunneling Starts (O'clock 9 ) -Undermining/Tunneling Ends (O'clock) 12 -Maximum Distance (cm) 1.8 -Undermining/Tunneling Starts #2 (O' 12 clock) -Undermining/Tunneling Ends #2 (O' 1 clock) -Maximum Distance #2 (cm) 1.5 -Circular Undermining No -Wound/Ulcer Outcome Not Healed -Ulcer Cleansing Rinsed/ Irrigated with Saline -Foul Odor after Cleansing No -Bioengineered Tissue No -Bleeding Controlled with Pressure -Offloading No -Treatment Response Procedure Tolerated Well -Debridement - Muscle / Fascia, 1st No 20sq cm #13- R UPPER THIGH POST OP -Time 10:41 -Correct Patient Yes -Correct Side, Site, Position Yes -Correct Procedure Yes -Procedure Performed Yes -Type of Procedure Debridement -Clinical Debridement Subcutaneous -Tissue Removed Subcutaneous -Post Debridement (cm) - Length 1.8 -Post Debridement (cm) - Width 0.5 -Post Debridement (cm) - Depth 0.1 -Total Square (Post) (cm) 0.90 -Area of Debridement (cm) - Length 1.8 -Area of Debridement (cm) - Width 0.5 -Total Square (Area) (cm) 0.90 -Tunneling No -Undermining/Tunneling No -Circular Undermining No -Wound/Ulcer Outcome Not Healed -Ulcer Cleansing Rinsed/ Irrigated with Saline -Foul Odor after Cleansing No -Bioengineered Tissue No -Bleeding Controlled with Pressure -Offloading Yes -Type of Offloading Surgical Shoe -Treatment Response Procedure Tolerated Well -Debridement - Subq, 1st 20sq cm Yes #11 Right Buttock post op -Time 10:30 -Correct Patient Yes -Correct Side, Site, Position Yes -Correct Procedure Yes -Procedure Performed Yes -Type of Procedure Debridement -Clinical Debridement Muscle / Fascia -Tissue Removed Muscle -Post Debridement (cm) - Length 7.5 -Post Debridement (cm) - Width 2.5 -Post Debridement (cm) - Depth 2.5 -Total Square (Post) (cm) 18.75 -Area of Debridement (cm) - Length 7.5 -Area of Debridement (cm) - Width 2.5 -Total Square (Area) (cm) 18.75 -Tunneling No -Undermining/Tunneling Yes -Undermining/Tunneling Starts (O'clock 12 ) -Undermining/Tunneling Ends (O'clock) 2 -Maximum Distance (cm) 2 -Circular Undermining No -Wound/Ulcer Outcome Not Healed -Ulcer Cleansing Rinsed/ Irrigated with Saline -Foul Odor after Cleansing No -Bioengineered Tissue No -Bleeding Controlled with Pressure -Offloading No -Treatment Response Procedure Tolerated Well -Debridement - Muscle / Fascia, 1st No 20sq cm Pain Scale: 0-10 Numeric Is Patient Pain Free? Yes WC - Nurse 3 - General Ulcer D/C NN Start: 12/02/19 09:38 Freq: Status: Active Protocol: Activity Type Activity Date Activity User E-Sign Co-Sign Detail Recorded Client Recorded Date Recorded By Document 12/02/19 10:53 DL [id number] 12/02/19 10:59 DL 12/02/19 10:53 Wound Care Nurse 3 #19- R 2ND TOE -Other Dressing betadine -Primary Dressing Covered/Secured with Dry Gauze & Roll Gauze, Secured with Tape #18- R GREAT TOE -Foul Odor after Cleansing No -Other Dressing betadine -Primary Dressing Covered/Secured with Dry Gauze & Roll Gauze, Secured with Tape #17- R HEEL -Foul Odor after Cleansing No -Other Dressing betadine -Primary Dressing Covered/Secured with Dry Gauze & Roll Gauze, Secured with Tape # 16- L HEEL -Foul Odor after Cleansing No -Other Dressing betadine -Primary Dressing Covered/Secured with Dry Gauze & Roll Gauze, Secured with Tape #15- SACRAL -Ulcer Cleansing Rinsed/ Irrigated with Saline -Other Dressing Dakins -Primary Dressing Covered/Secured with Dry Gauze, Secured with Tape #12- L BUTTOCK POST OP -Ulcer Cleansing Rinsed/ Irrigated with Saline -Foul Odor after Cleansing No -Other Dressing Dakins -Primary Dressing Covered/Secured with Dry Gauze, Secured with Tape #13- R UPPER THIGH POST OP -Ulcer Cleansing Rinsed/ Irrigated with Saline -Foul Odor after Cleansing No -Other Dressing hydrogel/ adaptic -Primary Dressing Covered/Secured with Dry Gauze,Other -Other Covering adaptic #11 Right Buttock post op -Ulcer Cleansing Rinsed/ Irrigated with Saline -Foul Odor after Cleansing No -Other Dressing dakins -Primary Dressing Covered/Secured with Dry Gauze, Secured with Tape Pain Scale: 0-10 Numeric Is Patient Pain Free? 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 Manager Sales Care Facility Orders Sent Yes Wound debrided: ischial ulcer Laterality: Right Wound Grade/Stage: 4 Type of Debridement: Excisional debridement Anesthesia Used: 4% Lidocaine Solution, 5% Lidocaine Gel Depth: to muscle Percentage of wound debrided: 100 Instrument Used: 7mm curette Tissue Removed: Slough and devitalized tissue Severity: Fat Layer Exposed Amount of bleeding with debridement: Mild Bleeding Controlled with: Pressure Patient tolerated procedure well - Additional Wound Wound debrided: Ischial ulcer Laterality: Left Wound Grade/Stage: 4 Type of Debridement: Excisional debridement Anesthesia Used: 5% Lidocaine Gel Depth: to muscle Percentage of wound debrided: 100 Instrument Used: 7mm curette Tissue Removed: Slough and devitalized tissue Severity: Fat Layer Exposed Amount of bleeding with debridement: Mild Bleeding Controlled with: Pressure Patient tolerated procedure: Patient tolerated procedure well - Additional Wound Wound debrided: Sacral ulcer Wound Grade/Stage: 4 Type of Debridement: Excisional debridement Anesthesia Used: 5% Lidocaine Gel Depth: to muscle Percentage of wound debrided: 100 Instrument Used: 7mm curette Tissue Removed: Slough and devitalized tissue Severity: Fat Layer Exposed Amount of bleeding with debridement: Mild Bleeding Controlled with: Pressure Patient tolerated procedure: Patient tolerated procedure well - Additional Wound Wound debrided: groin/thigh ulcer Laterality: Right Type of Debridement: Excisional debridement Anesthesia Used: 5% Lidocaine Gel Depth: in the subcutaneous layer Percentage of wound debrided: 100 Instrument Used: 3mm curette Tissue Removed: Slough and devitalized tissue Severity: Fat Layer Exposed Amount of bleeding with debridement: Mild Bleeding Controlled with: Pressure Patient tolerated procedure: Patient tolerated procedure well Assessment/Plan Active Problems Sacral pressure ulcer (Acute) Pressure ulcer, heel, right, unstageable (Chronic) Pressure ulcer of toe of right foot (Chronic) Toe necrosis (Chronic) Unstageable pressure ulcer of left heel (Chronic) Non-healing open wound of right groin (Chronic) Pressure sore of left ischium, 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 Recurrent right ischial pressure sore, Stage IV. 2. 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 3. Osteomyelitis. 4. History of MRSA. 5. Left ischial pressure sore, Stage IV. 6. History of anal CA treated with chemotherapy and radiation therapy. 7. Sacral pressure sore, Stage IV. 8. Nonhealing ulcer right inguinal and proximal thigh area. Plan: Continue Dakin's dressing changes to bilateral ischial pressure sores and sacral pressure sore twice a day. Stop silver and start collagen hydrogel and Adaptic dressing changes daily to right inguinal and proximal thigh ulcer. Continue Betadine to bilateral heels and right great and second toes. Patient has completed Vancomycin and Meropenem for Enterobacter aerogenes, Proteus mirabilis, Acinetobacter baumannii, Pseudomonas aeroginosa, Stenotrophomonas maltohilia, Staphylococcus cohnii urealyti, and MRSA. Prealbumin from 10/02/19 was 14.1. Encouraged nutritional supplementation with protein to help the healing process. Follow-up: Return to clinic in 2 weeks for re-evaluation. Return sooner or report to the emergency room should symptoms worsen, or new symptoms arise. [id number]: [id number] Global Visit
== END 2019-12-11 23:59 ==
LOC: WC 09:34
PROVIDERS: PCP Internal Medicine; Visit Provider Nurse Practitioner Family
DX: L89.224 Pressure ulcer of left hip, stage 4 (principal); L89.214 Pressure ulcer of right hip, stage 4; L89.154 Pressure ulcer of sacral region, stage 4; L89.610 Pressure ulcer of right heel, unstageable; L89.620 Pressure ulcer of left heel, unstageable; I73.9 Peripheral vascular disease, unspecified; L89.890 Pressure ulcer of other site, unstageable; M86.69 Other chronic osteomyelitis, multiple sites; R53.81 Other malaise; L59.8 Other specified disorders of the skin and subcutaneous tissue related to radiation; Y84.2 Radiological procedure and radiotherapy as the cause of abnormal reaction of the patient, or of later complication, without mention of misadventure at the time of the procedure; Z86.14 Personal history of Methicillin resistant Staphylococcus aureus infection; Z85.048 Personal history of other malignant neoplasm of rectum, rectosigmoid junction, and anus; Z92.21 Personal history of antineoplastic chemotherapy; Z92.3 Personal history of irradiation; Z79.82 Long term (current) use of aspirin; Z79.899 Other long term (current) drug therapy
CPT/HCPCS: 11042; 11043; 11046

== ENCOUNTER 2019-12-04 06:30 | Day surgery (SDC) | payer MEDICARE, MEDICAID, SELFPAY ==
[2019-12-03 08:39] VITALS: BMI 22.7
[2019-12-04 06:43] LABS: Hematocrit 29.8 % (40-54); Hemoglobin 9.4 g/dL (13.0-16.5); Mean Corp Hgb Conc 31.5 g/dL (32-36); Mean Corpuscular Hgb 24.3 pg (27.0-32.0); Mean Platelet Vol. 7.4 fl (6.2-12.0); Platelet Count 533 K/mm3 (150-450); RBC Distribution Width CV 16.5 % (11.6-14.6); RBC Distribution Width SD 46.3 fl (35.1-43.9); Red Blood Count 3.87 M/mm3 (4.6-6.2); White Blood Count 10.8 K/mm3 (4.4-11.0)
[2019-12-04 06:59] LABS: Albumin, Serum 2.4 g/dL (3.2-5.0); BUN 19 mg/dL (7-18); BUN/Creat Ratio 30.2 RATIO (10-20); Calcium,Total 9.9 mg/dL (8.5-10.1); Chloride 90 mmol/L (98-107); Creatinine, Serum 0.63 mg/dL (0.70-1.30); EST Glomerular Filtration Rate 136 mL/min (>60); Est Glom Filt Rate - Afr Amer 164 mL/min (>60); Estimated Creatinine Clearance 108.75 ml/min; Glucose 98 mg/dL (74-106); Phosphorus 5.2 mg/dL (2.5-4.9); Potassium 4.6 mmol/L (3.5-5.1); Sodium Level 127 mmol/L (136-145)
--- NOTE | 2019-12-04 08:50 | OP.PCM_ITS ---
Problem List (1) Gangrene of toe of right foot Status: Acute Report of Operation Date of Procedure: 12/04/19 Pre-Operative Diagnosis: PAD with gangrene Post-Operative Diagnosis: The same Surgery/Procedure Performed:: 1. Ultrasound-guided access retrograde left common femoral artery. 2. Right lower extremity angiogram with catheter placed into the popliteal artery. 3. Balloon angioplasty the right mid popliteal, through the stent, through the entire SFA and common femoral artery with a 5 x 150 balloon with 4 different inflations. 4. Closure with Mynx Type of Anesthesia:: Sedation,Conscious Description of Procedure: Patient brought to the operating room. And with appropriate timeout consent. Underwent sedation. Prepped and draped in a sterile fashion. We did ultrasound-guided access retrograde left common femoral artery. Put a Glidewire up and then a 5 Dutch sheath. Get up and over the bifurcation and then brought in a longer 6 Dutch sheath. We gave 5000 units of heparin. We imaged from there and it showed moderate plaque throughout the common femoral artery and some flow into the profunda. SFA had flow but in the mid to distal segment had a subtotal occlusion. We then imaged further down the leg and it showed popliteal above the stent with a subtotal occlusion and some stenosis through the stent. Below the knee had good runoff through the tibials with the anterior tibial, tibioperoneal trunk, and peroneal widely patent. Some diminutive flow in the posterior tibial. Using a quick cross catheter we got through the occlus ion and confirmed flow below this. We then brought in a long 5 mm balloon and balloon through the entire popliteal, the stent and the SFA through the common femoral artery with a 5 x 150 balloon. Had a little trouble tracking down so we ballooned up in the midsegment and then kept tracking to we get all the way through the stent. Did a total of 4 different inflations. Each was for 2-1/2 to 3 minutes. Completion angiogram was markedly improved with brisk flow through his common femoral artery, the SFA, the popliteal and through the tibials. We then removed out the sheath put a shorter sheath deployed a minx with good hemostasis. He was brought to recovery stable condition. Sedation: This 64-year-old gentleman underwent moderate sedation given by Dr. Eddie Samuels. He was monitored EKG blood pressure and pulse ox for over the 30 minutes of the procedure. See the EMR for the complete record.
== END 2019-12-04 14:12 | disposition home or self-care (01) ==
PROVIDERS: PCP Internal Medicine; Referring Provider Surgery Vascular Surgery; Visit Provider Surgery Vascular Surgery
DX: I70.261 Atherosclerosis of native arteries of extremities with gangrene, right leg (principal); L97.519 Non-pressure chronic ulcer of other part of right foot with unspecified severity; I74.3 Embolism and thrombosis of arteries of the lower extremities; I10 Essential (primary) hypertension; B19.20 Unspecified viral hepatitis C without hepatic coma; K59.9 Functional intestinal disorder, unspecified; K21.9 Gastro-esophageal reflux disease without esophagitis; D64.9 Anemia, unspecified; E78.00 Pure hypercholesterolemia, unspecified; M62.81 Muscle weakness (generalized); M19.90 Unspecified osteoarthritis, unspecified site; F32.9 Major depressive disorder, single episode, unspecified; F10.10 Alcohol abuse, uncomplicated; Z79.899 Other long term (current) drug therapy; Z87.891 Personal history of nicotine dependence; Z85.048 Personal history of other malignant neoplasm of rectum, rectosigmoid junction, and anus
CPT/HCPCS: 36245; 36415; 37224; 75710; 76937; 80069; 85027; 99152; 99153; C1760; Q9967; A4216; C1725; C1769; C1887; C1894

== ENCOUNTER 2019-12-16 17:04 | Emergency (ER) | payer MEDICARE, MEDICAID, SELFPAY ==
[2019-12-03 08:39] VITALS: BMI 22.7
[2019-12-16] VITALS (8 sets, daily range): BP systolic 124–150; BP diastolic 65–80; PULSE 78–90; RESP 11–18; TEMP 36–36.8; O2SAT 91–98; BMI 23.3
--- NOTE | 2019-12-16 17:39 | ED.DCSUM_ITS ---
History of Present Illness Chief Complaint: Wound Narrative: 64-year-old male with multiple medical problems including chronic decubitus wounds and follows with Dr. Mesa in the wound care clinic. He is currently residing at [facility] since he mother at [place]. He tells me he was sent in to the ED today for an elevated potassium. He tells me he was supposed to be seen the wound care clinic today but transportation was not able to be arranged for him to go there. Reportedly had blood work drawn today (12/15) that showed a potassium of 6.2, sodium of 128, BUN of 33 and a creatinine of 0.6. White count was 13.6 and hemoglobin 9.7. White count is up from 10.2 on 12/09. 12/09 He had a sed rate of 100. CRP of 167 12/15. COVID negative on 12/08. he tells me he has had a chronic indwelling Walker catheter for about 2 months and states he has not had any problems with it. From review of prior wound center notes he has had long-term outpatient PICC line antibiotics guided by wound cultures. Patient has completed Vancomycin and Meropenem for Enterobacter aerogenes, Proteus mirabilis, Acinetobacter baumannii, Pseudomonas aeroginosa, Stenotrophomonas maltohilia, Staphylococcus cohnii urealyti, and MRSA. He had a right anterior thigh abscess drained in August 2019 and has had several debridements of his decubitus ulcers and failed flap procedures. Reportedly he received a dose of Kayexalate today at the [facility]. He vomited in route to the hospital and still feels nauseated. He notes pain in his buttocks. In 2002 the patient had been diagnosed with rectal cancer. He was treated with radiation and chemotherapy. He subsequently developed late effects of radiation and due to decubitus ulcers and failed wound healing/surgeries was felt that a colostomy would be of benefit. Dr. De La Rosa performed the procedure in 2018. He is tells me that he has had a small bowel obstruction since then that resolved with a NG tube. He notes a prior inguinal hernia repair when he was about the age of 4. Otherwise he denies any other surgeries on the abdomen. Patient has a PICC line. Patient is a full code. - Past Medical History (1) Abscess of right groin Status: Acute (2) Gangrene of toe of right foot Status: Acute (3) Osteomyelitis of toe of right foot Status: Acute (4) Sacral pressure ulcer Status: Acute (5) Acute osteomyelitis of right pelvic region Status: Chronic (6) Anal cancer Status: Chronic (7) Anxiety and depression Status: Chronic (8) COPD (chronic obstructive pulmonary disease) Status: Chronic (9) Debility Status: Chronic (10) GERD (gastroesophageal reflux disease) Status: Chronic (11) HLD (hyperlipidemia) Status: Chronic (12) HTN (hypertension) Status: Chronic (13) Hepatitis C carrier Status: Chronic (14) Late effect of radiation Status: Chronic Comment: right ischial area (15) PAD (peripheral artery disease) Status: Chronic Past Medical History - Allergies and Home Meds Allergies/Adverse Reactions: Allergies chlorthalidone Allergy (Verified 12/16/19 17:06) Other famotidine Allergy (Verified 12/16/19 17:06) Unknown povidone-iodine [From Betadine] Allergy (Verified 12/16/19 17:06) Hives soap Adverse Reaction (Verified 12/16/19 17:06) Hives Poqbsta-Fvd-Zhj Reductase Inhibitor Adverse Reaction (Verified 12/16/19 17:06) MESSED MY LIVER UP adhesive tape Allergy (Uncoded 08/12/19 16:20) Itching/rash Primary Care Physician: Winnie Gonzales MD [Primary Care Provider] - Surgical History: total hip arthroplasty - left, total knee arthroplasty, - - 12/30/16 Surgical preparation right gluteal/ischial area with excision radiation pressure sore abscess wound and partial ostectomy for osteomyelitis (52.5 cm2), 06/08/17 Excision radiation pressure sore abscess ulcer right ischial area, Stage IV, with partial ostectomy for osteomyelitis, 10/17/17 Excision radiation pressure sore abscess ulcer right ischial area, Stage IV, with partial ostectomy for osteomyelitis. Lives: Longterm Smoking Status: Former smoker Alcohol: None Drugs: None - Family History Maternal Family History: Reports: - - Denies known maternal medical history including cardiac history. Paternal Family History: Reports: - - Denies known paternal medical history including cardiac history. Review of Systems General: Denies: Chills, Fever, Sweats Eyes: Denies: Visual changes - bilaterally, Diplopia ENT: Denies: Rhinorrhea, Sore throat Cardiovascular: Denies: Chest pain, Palpitations Respiratory: Denies: Dyspnea, Cough, Dyspnea on exertion Gastrointestinal: Denies: Abdominal pain, Nausea, Vomiting, Diarrhea, Melena, Hematochezia Genitourinary: Denies: Dysuria, Hematuria, Frequency Musculoskeletal: Reports: Back pain, Extremity Pain Skin: Reports: Abscess, Wounds. Denies: Rash Neurological: Denies: Headache, Weakness, Numbness Physical Exam Vital Signs/Narrative: Vital Signs Temp Pulse Resp BP Pulse Ox 12/16/19 17:11 96.8 F L 82 17 138/80 H 93 12/16/19 17:07 96.8 F L 81 17 138/80 H 94 Inital Vital Signs reviewed: Yes General: Well nourished, Well developed, No Acute Distress Head: Normocephalic, Atraumatic Eyes: Perrl, EOMI ENT: No rhinorrhea, Dry mucous membranes Neck: Supple, Nontender Cardiovascular: Regular rate, Regular rhythm, No murmurs Respiratory: No distress, CTA bilaterally, Chest nontender Abdomen: Soft, Nontender, Nondistended, Normal bowel sounds Back: - - Decubitus ulcers noted. Extremities: No edema, - - There is an area of skin anterior to the right hip with mild erythema and fluctuance. He has a PICC line in place Skin: Normal color, No rash Neurological: Alert, Oriented x3, Cranial nerves II-XII grossly intact, Normal Strength, Normal Sensation Psychological: Normal affect, Normal Mood Diagnostic/Tx/Re-eval - EKG Initial EKG Interpretation: Sinus Rhythm - EKG demonstrates a normal sinus rhythm at a rate of 81 without concerning features of ACS - Medical Decision Making Patient received IV fluids morphine and Zofran. He also received vancomycin and meropenem. Office chest x-ray we see what is probably a small bowel obstruction so we performed CT the abdomen pelvis which confirms small bowel obstruction. He also noted to have new liver lesion question if this is a recurrence of his rectal cancer. Also concerning is abscess and osteomyelitis of the right hip. In speaking with the radiologist he notes that he is concerned that the abscess originates in the chronic decubital ulcer which extends to the initial tuberosity which is not extending into the right hip with new acetabular fract ure and destruction and then extending anteriorly to where we can clinically palpate a abscess on the anterior medial hip. I spoke with general surgery (Dr. Chacon) here as well as the patient's plastic surgeon (Dr. Mesa). Dr. Mesa remembers the patient well and states that when he drained an abscess earlier this year and this anterior thigh area he remembers it being very close to the great vessels of the leg. After reviewing the CT it is recommendation that the patient be transferred to tertiary care facility. I spoke with the patient prior to him having an NG tube placed and we will attempt to transfer him to [facility]. - Critical Care Time Critical care time (excluding procedures): 30-74 minutes - 35 minutes, Discussing w/Patient &/or Family/Apparel Machinery Instructor, Discussing w/Consultants, Arranging Admission or Transfer, Performing Direct Patient Care at Bedside ED Disposition - Plan for ED Patient: Diagnosis: Abscess of right groin, Chronic osteomyelitis of right pelvic region, Small bowel obstruction, Septic arthritis of hip, Liver lesion Referrals: Winnie Gonzales MD [Primary Care Provider] -
--- NOTE | 2019-12-16 17:52 | EKG12_ITS ---
Test Reason : Blood Pressure : / mmHG Vent. Rate : 081 BPM Atrial Rate : 081 BPM P-R Int : 146 ms QRS Dur : 098 ms QT Int : 386 ms P-R-T Axes : 050 057 073 degrees QTc Int : 448 ms Normal sinus rhythm Normal ECG Confirmed by PAGE SARABIA, ABILIO ([id number]), website/blog editor ALEX LASSITER ([id number]) on 12/18/2019 9:37:44 AM Referred By: Confirmed By:ABILIO ABEL MD
--- NOTE | 2019-12-16 18:15 | RAD_ITS ---
STUDY: X-RAY CHEST REASON FOR EXAM: Male, 64 years old. sepsis eval. patient has increased white count, wounds on feet and buttock TECHNIQUE: Single AP portable view of the chest. COMPARISON: 10/03/2019. FINDINGS: Left PICC line terminates in the superior vena cava. The lungs are clear and expanded. There is no demonstrated pleural abnormality. Normal size heart. Normal mediastinum and andrea. Normal visualized pulmonary arteries. Normal visualized aortic arch and descending thoracic aorta. Dilated, gas-filled small bowel loops in the left upper quadrant. Degenerative changes of right shoulder. Mild thoracic spondylosis. Soft tissues and bony structures are otherwise unremarkable. RAD/Chest 1 View (Portable) IMPRESSION: 1. Dilated small bowel suspicious for obstruction. Consider CT abdomen and pelvis if clinically warranted. Electronically Signed: Fadumo Whitaker MD at 19:15 EDT Tel , Service support ,
[2019-12-16] MEDS: Ondansetron 4 MG/2 ML Vial IV ×2 (18:59→20:31)
[2019-12-16] MEDS: 0.9% Normal Saline 1,000 ML 150 ML IV (19:00)
[2019-12-16] MEDS: Morphine 4 MG/ML Syringe IV ×2 (19:00→23:12)
[2019-12-16 19:12] LABS: Absolute Lymphocyte Count 1.19 X10^3/uL (0.83-4.51); Absolute Neutrophil Count 9.5 X10^3/uL (2.0-7.7); Basophil# 0.06 X10^3/uL; Basophil% 0.5 % (0-1); Eosinophil# 0.14 X10^3/uL; Eosinophils% 1.2 % (0-5); Hematocrit 49.4 % (40-54); Hemoglobin 14.9 g/dL (13.0-16.5); Lymphocyte # 1.19 X10^3/ul (4.0); Mean Corp Hgb Conc 30.2 g/dL (32-36); Mean Corpuscular Hgb 23.2 pg (27.0-32.0); Mean Corpuscular Volume 77.1 fL (80-94); Mean Platelet Vol. 7.4 fl (6.2-12.0); Monocyte# 0.65 X10^3/uL; Monocyte% 5.5 % (0-10); NRBC Flagged by Analyzer 0 % (0-5); Neutrophil # 9.48 X10^3/uL (2.7-7.7); Neutrophil % 79.4 % (47-70); POSITIVE COUNT YES; Platelet Count 833 K/mm3 (150-450); RBC Distribution Width CV 18.2 % (11.6-14.6); RBC Distribution Width SD 46.5 fl (35.1-43.9); Red Blood Count 6.41 M/mm3 (4.6-6.2); White Blood Count 11.9 K/mm3 (4.4-11.0)
[2019-12-16 19:14] LABS: Differential Indicated SCAN CRITERIA MET
[2019-12-16 19:21] LABS: Lactic Acid 1.1 mmol/L (0.4-1.9)
[2019-12-16 19:23] LABS: International Normalized Ratio 1.2; Partial Thromboplast Time 29.4 Seconds (24.1-36.2); Prothrombin Time (Protime)PT. 14.3 SECONDS (11.7-14.9)
[2019-12-16 19:29] LABS: ALB/GLOB Ratio 0.4 RATIO (0.9-2.4); AST(SGOT) 49 U/L (15-37); Alanine Aminotransfer ALT/SGPT 73 U/L (16-61); Albumin, Serum 2.5 g/dL (3.2-5.0); Alkaline Phosphatase 260 U/L (45-117); Anion Gap 6 (5-15); BUN 24 mg/dL (7-18); BUN/Creat Ratio 34.5 RATIO (10-20); Chloride 86 mmol/L (98-107); EST Glomerular Filtration Rate 121 mL/min (>60); Est Glom Filt Rate - Afr Amer 146 mL/min (>60); Estimated Creatinine Clearance 98.36 ml/min; Globulin 7.1 g/dL (2.2-4.2); Glucose 127 mg/dL (74-106); Potassium 4.9 mmol/L (3.5-5.1); Protein, Total 9.6 g/dL (6.4-8.2); Sodium Level 124 mmol/L (136-145)
--- NOTE | 2019-12-16 19:31 | CT_ITS ---
We are attempting to reach an attending provider to discuss findings. An addendum with communication details will be sent when the communication is complete. HISTORY: EMESIS, ELEVATED WBC, DIARRHEA, N/V, CONGESTION, HERNIA REPAIR, H/O COLORECTAL AND ANAL CA WITH RADIATION AND CHEMO, DIVERTING COLOSTOMY, HEP C, HTN, CURRENT BUTTOCK WOUNDS TECHNIQUE: Helically acquired images were obtained of the abdomen and pelvis following the intravenous administration of 100 ML of Isovue 300 Iodinated contrast. 2D reformats. No oral contrast was administered. A radiation dose optimization technique was used for this scan. COMPARISON: Comparison CT scan of the abdomen and pelvis is from October 02, 2019 FINDINGS: # of images incl. paperwork: 568 LUNG BASES: Pulmonary hyperexpansion. Minimal fibrotic lung disease. Coronary artery disease. Calcific plaque within the thoracic aorta and at the aortic valve. Minimal left ventricular hypertrophy. CT abdomen: The patient has a left total hip prosthesis. There is sclerosis to the right femoral head the right femoral neck and the right acetabulum. There is erosion of cortex within the right acetabulum with a right acetabular fracture. There is remodeling of the right femoral head. This disease was present on the October 02, 2019 study, but is more severe. The fracture in the acetabular is new. The sclerosis extends to the ischial tuberosity. Superficial to the ischial tuberosity there is ulceration that extends through to the skin. A right hip effusion is present. From the effusion there is ulceration and fluid extending anteriorly to the skin consistent with an abscess. This abscess extends for 6 x 5.5 cm. The gallbladder remains. Within the liver there are 2 hypodense lesions. Both redemonstrated on series 3 image 27. One is within the lateral segment left hepatic lobe, the other is in the anterior segment of the right hepatic lobe. The each measure about 5 mm. There are too small to further characterize. The spleen, pancreas, and adrenal glands, are normal. Exophytic to the left kidney, on the superior pole is a hypodense lesion likely representing a benign cyst. The stomach is distended with liquid and gas. There is some liquid distention of the duodenum as well. The aorta is diseased with atherosclerotic plaque, but without aneurysm.. CT pelvis: Trace pelvic ascites is present. The appendix is normal in the posterior right hemipelvis, series 3 image 92. The prostate gland is not enlarged but very close to the ulceration within the right ischial tuberosity as it extends medially. There is some additional edema and likely ulceration extending more dorsal to the prostate gland. Additional ulceration is present on the left side adjacent to the ischial tuberosity with induration of the surrounding fat and some sclerosis to the bone. The bladder is decompressed with a Walker catheter. Abnormal air-fluid levels and distention to the proximal small bowel. Decompression to the distal small bowel. These findings are consistent with a small bowel obstruction. I cannot define the location of the transition for the obstruction. I suspect it is within the left hemipelvis. The patient does have a left darshana-abdomen ostomy. The colon is mostly decompressed CT/Abdomen/Pelvis W IV Cont ONLY IMPRESSION: Small bowel obstruction likely within the left hemipelvis. I cannot exactly determine the location of the obstruction. Bilateral ischial decubitus ulcers with ulceration extending to the bone with osteomyelitis highly probable. The disease is more severe on the right than left. The disease on the right extends to the right acetabulum, the right hip, and the right femoral head and proximal femur. Anterior to the right femur and there is a greater than 6 cm abscess likely consistent with septic arthritis. There is a new fracture to the roof of the acetabulum. This disease has significantly progressed since the October 02, 2019 study. Distended stomach with gas and liquid likely related to the small bowel obstruction. 25 mm hypodense lesions within the liver. The one in the lateral segment of the left hepatic lobe was present on the previous study and has not significantly changed. The one within the anterior segment of the right hepatic lobe is not identified on the previous study and possibly represents metastatic disease. Severe degenerative disc disease and scoliosis. Individualized dose optimization techniques were used for this CT. at 2055 Reported and signed by: Davy Blackwell MD Electronically Signed: Davy Blackwell MD at 20:54 EDT Tel , Service support ,
[2019-12-16 19:33] LABS: Differential Comment SCANNED
[2019-12-16 20:28] LABS: Mucous, Urine 0 SEEN /hpf (<or=2+)
[2019-12-16 20:48] LABS: Color, Urine Yellow (Yellow); Glucose, Dipstick Normal (Normal); Ketone-Dipstick Negative (Negative); Leukocyte Esterase-Dipstick 500 /ul (Negative); Nitrite-Dipstick Negative (Negative); Occult Blood-Urine 25 /ul (Negative); Protein-Dipstick 30 mg/dl (Negative); Specific Gravity, Urine 1.025 (1.002-1.030); Urine Bilirubin Dipstick Negative (Negative); Urine Clarity Cloudy (Clear); Urine Urobilinogen 1 mg/dl (Normal)
[2019-12-16 20:59] LABS: Bacteria 4+ /hpf (None Seen); Calcium Oxalate Crystals Ur RARE /hpf (<or=2+); Hyaline Cast 0-5 SEEN /lpf (0-5); Red Blood Cells-Urine 0-5 SEEN /hpf (0-5); Squamous Epithelial Cells - UA 0-5 SEEN /hpf (0-5); White Blood Cells 25-50 SEEN /hpf (0-5)
[2019-12-16 21:00] LABS: Yeast-Urine 1+ /hpf (None Seen)
[2019-12-16 21:01] LABS: Transitional Epithelial - Ur 0 SEEN /hpf (0-5)
--- NOTE | 2019-12-16 21:24 | RAD_ITS ---
HISTORY: NG tube placement FINDINGS: # of images incl. paperwork: 1 Frontal view of the chest and abdomen demonstrates a orogastric tube in the stomach in an acceptable position. The catheter tip of the left arm PICC terminates within the SVC at the level of the right main bronchus. RAD/Abdomen Single View (Portable) IMPRESSION: NGT in an acceptable position. at 0058 Reported and signed by: Davy Blackwell MD Electronically Signed: Davy Blackwell MD at 0:57 EDT Tel , Service support ,
--- NOTE | 2019-12-16 23:14 | ED.RN ---
pt vomited 1000ml up prior to placing the ng. pt was being turned to do the dressing change to his buttocks
[2019-12-17] VITALS: BP 130/62; PULSE 85; RESP 20; TEMP 36.7; O2SAT 96
[2019-12-17 02:00] VITALS: BP 128/60; PULSE 95; RESP 20; TEMP 36.7; O2SAT 97
[2019-12-17] MEDS: Morphine 4 MG/ML Syringe IV (02:37)
[2019-12-17 03:39] VITALS: BP 128/60; PULSE 95; RESP 20; TEMP 36.7; O2SAT 97
--- NOTE | 2019-12-18 11:18 | ED.RN ---
PT CULTURE RESULT FAXED TO [facility] SINCE THAT IS WHERE HE WAS TRANSFERED TO.
== END 2019-12-17 04:25 | disposition short-term general hospital (02) ==
LOC: ED 18:01
PROVIDERS: Emergency Provider Emergency Medicine; PCP Internal Medicine
DX: L02.214 Cutaneous abscess of groin (principal); K56.609 Unspecified intestinal obstruction, unspecified as to partial versus complete obstruction; M00.9 Pyogenic arthritis, unspecified; K76.9 Liver disease, unspecified; F41.9 Anxiety disorder, unspecified; I10 Essential (primary) hypertension; K21.9 Gastro-esophageal reflux disease without esophagitis; Z85.048 Personal history of other malignant neoplasm of rectum, rectosigmoid junction, and anus; Z92.3 Personal history of irradiation; Z93.3 Colostomy status; Z87.891 Personal history of nicotine dependence; Z79.82 Long term (current) use of aspirin
CPT/HCPCS: 36592; 71045; 74018; 74177; 80053; 81001; 83605; 84484; 85025; 85610; 85730; 87040; 87077; 87086; 87088; 87186; 93005; 96361; 96365; 96366; 96367; 96375; 96376; 99285; J2185; J7030; J7040; Q9967; A4216; J2405

== ENCOUNTER 2020-04-15 10:32 | Inpatient (IN) | payer MEDICARE, MEDICAID, SELFPAY ==
[2019-12-16 17:07] VITALS: BMI 23.3
[2020-04-15] VITALS (12 sets, daily range): BP systolic 96–123; BP diastolic 48–69; PULSE 74–107; RESP 16–24; TEMP 36.7–39.5; O2SAT 89–97; BMI 24.3; BMI 23.6
--- NOTE | 2020-04-15 10:49 | CT_ITS ---
STUDY: CT ABDOMEN AND PELVIS WITH CONTRAST REASON FOR EXAM: Male, 65 years old. Decubitus ulcers, hx anal cancer with prior radiation and chemotherapy, diverting colostomy, hernia, left hip replacement, left groin vascular surgery. Hx hypertension, COPD. RADIATION DOSAGE (If Supplied By Facility): CTDIvol = ( 16.97 ) mGy, DLP = ( 973.06 ) mGycm TECHNIQUE: Transaxial images were obtained from the dome of the diaphragm to the symphysis pubis without oral contrast. IV 75mL Isovue-300 was administered. Sagittal and coronal images were reconstructed. Individualized dose optimization techniques were used for this CT. COMPARISON: Comparison is made with prior study dated 12/16/2019. FINDINGS: The visualized lung bases are unremarkable. Coronary artery calcification. There is decreased attenuation of the liver consistent with steatosis. Borderline hepatomegaly. Stable tiny hepatic cysts. Normal gallbladder and extrahepatic biliary system. Normal spleen. Normal pancreas. Normal bilateral adrenal glands. Normal right kidney. Stable 2.2 cm cyst in the upper pole of the left kidney. Normal visualized stomach. Normal small intestine. Once again, a colostomy seen along the anterior abdominal wall on the left side. Moderate amount of fecal material is seen in the colon. The appendix is visualized and appears normal. There is diffuse atherosclerotic calcification of the abdominal aorta and its major visceral branches, without a demonstrated aneurysm. Normal inferior vena cava. Normal retroperitoneum. A YOUSSEF catheter is seen within the urinary bladder. The urinary bladder is empty. There is a 5.5 cm x 3 cm fluid collection with a small amount of air overlying the left inferior iliac bone. This may represent focal abscess. There is evidence of overlying soft tissue changes. There is evidence of a left hip effusion with the destruction of the right femoral head and cephalic migration of the proximal femur. There is a bony destruction involving the medial wall and roof of the right acetabulum. There is a 1 cm ulceration in the left buttock just superficial to the posterior aspect of the right acetabulum. This extends into the right inferior pubic ramus. There are diffuse degenerative changes of the visualized lumbar spine. The patient is status post left total hip replacement. This causes artifact within the pelvis. CT/Abdomen/Pelvis W IV Cont ONLY IMPRESSION: Borderline hepatomegaly with stable small hepatic cysts. Colostomy seen in the anterior left abdominal wall. Fluid collection with a small amount of air overlying the left inferior iliac bone posteriorly. Destruction of the right femoral head and cephalic migration of the proximal femur with bony destruction of the acetabulum. Electronically Signed: Aayush Ibarra MD at 12:24 EST , Service support ,
[2020-04-15] MEDS: Morphine 4 MG/ML Syringe IV (11:01)
[2020-04-15] MEDS: Ondansetron 4 MG/2 ML Vial IV (11:01)
[2020-04-15 11:07] LABS: Absolute Lymphocyte Count 1.25 X10^3/uL (0.83-4.51); Absolute Neutrophil Count 9.2 X10^3/uL (2.0-7.7); Basophil# 0.03 X10^3/uL; Basophil% 0.2 % (0-1); Eosinophil# 0.04 X10^3/uL; Eosinophils% 0.3 % (0-5); Hemoglobin 8.4 g/dL (13.0-16.5); Lymphocyte # 1.25 X10^3/ul (4.0); Mean Corp Hgb Conc 31.1 g/dL (32-36); Mean Platelet Vol. 7.7 fl (6.2-12.0); Monocyte# 1.73 X10^3/uL; Monocyte% 13.9 % (0-10); NRBC Flagged by Analyzer 0 % (0-5); Neutrophil # 9.23 X10^3/uL (2.7-7.7); POSITIVE DIFFERENTIAL YES; Platelet Count 650 K/mm3 (150-450); RBC Distribution Width CV 16.3 % (11.6-14.6); RBC Distribution Width SD 44.2 fl (35.1-43.9); Red Blood Count 3.65 M/mm3 (4.6-6.2); White Blood Count 12.5 K/mm3 (4.4-11.0)
[2020-04-15 11:09] LABS: Differential Indicated SCAN CRITERIA MET
[2020-04-15 11:13] LABS: Mucous, Urine 0 SEEN /hpf (<or=2+)
--- NOTE | 2020-04-15 11:16 | ED.VISSUMM ---
- ER Visit Summary Date of Service: 04/15/20 Chief Complaint: Fever, multiple wounds History of Present Illness: The patient is a 65 M presenting with fever. Patient currently lives in a intermediate. He has a necrotic second toe. He states he previously was seen at wound clinic for this. He also has bilateral ischial pressure ulcers and sacral ulcer that he has been followed at the wound clinic. He has had multiple surgeries. He has a remote history of rectal cancer with radiation. He has a colostomy secondary to his poor wound healing. He had temperature up to 101.2 at the intermediate and was sent to the ED for evaluation. Physical Examination: Vitals are stable. Patient is afebrile. Alert no acute distress. HEENT exam is unremarkable. Neck is supple. Lungs are clear and equal bilaterally. Heart is regular rate and rhythm. Abdomen is soft nontender nondistended. Bilateral ischial pressure ulcer stage IV, sacral ulcer stage IV Extremities bilateral heel ulcer. Necrosis right first and second toe Skin is warm and dry. No focal neurologic deficit. Remainder of exam is unremarkable. Emergency Department Course and Treatment: Patient was given IV fluids. CBC shows white count 12.4, hemoglobin 8.4. Chemistries show sodium 119. Alk phos 270, ALT 62, AST 55. Urinalysis shows 25-50 white blood cells, 2+ bacteria. Blood and urine cultures were sent. Lactic acid is 2.2. Chest x-ray shows no acute process. Right foot x-ray shows bony destruction of the distal phalanx and middle phalanx of the second toe with the soft tissue swelling and vascular calcification. CT abdomen pelvis shows borderline hepatomegaly with stable small hepatic cysts. Colostomy seen in the anterior left abdominal wall. Fluid collection with a small amount of air overlying the left inferior iliac bone posteriorly. Destruction of the right femoral head and cephalic migration of the proximal femur with bony destruction of the acetabulum. Patient was given vancomycin and Zosyn. Discussed with Dr. Mesa and hospitalist for admission. Disposition: Admission Impression: Febrile illness, bilateral ischial and sacral chronic wounds, right second toe necrosis, hyponatremia This note was generated with [employer] software. It may contain incorrect words, spelling, and punctuation that were not noted in review of the chart prior to signing ED Disposition - Plan for ED Patient: Referrals: Winnie Gonzales MD [STAFF PHYSICIAN] -
[2020-04-15 11:19] LABS: Color, Urine Yellow (Yellow); Glucose, Dipstick Normal (Normal); Ketone-Dipstick Negative (Negative); Leukocyte Esterase-Dipstick 500 /ul (Negative); Nitrite-Dipstick Negative (Negative); Occult Blood-Urine 150 /ul (Negative); Protein-Dipstick 30 mg/dl (Negative); Urine Bilirubin Dipstick Negative (Negative); Urine Clarity Cloudy (Clear); Urine Urobilinogen Normal (Normal)
[2020-04-15 11:24] LABS: Differential Comment SCANNED; Hypochromasia 3+; Microcytosis 2+; Target Cells 1+
[2020-04-15 11:29] LABS: Red Blood Cells-Urine 10-25 SEEN /hpf (0-5); White Blood Cells 25-50 SEEN /hpf (0-5)
[2020-04-15 11:30] LABS: Bacteria 2+ /hpf (None Seen); Squamous Epithelial Cells - UA 0-5 SEEN /hpf (0-5); Triple Phosphate Crystals Ur 2+ /hpf (<or=1+)
[2020-04-15 11:35] LABS: ALB/GLOB Ratio 0.4 RATIO (0.9-2.4); AST(SGOT) 55 U/L (15-37); Alanine Aminotransfer ALT/SGPT 62 U/L (16-61); Albumin, Serum 2.3 g/dL (3.2-5.0); Alkaline Phosphatase 270 U/L (45-117); Anion Gap 5 (5-15); BUN 20 mg/dL (7-18); BUN/Creat Ratio 31.4 RATIO (10-20); Calcium,Total 9.5 mg/dL (8.5-10.1); Chloride 85 mmol/L (98-107); Creatinine, Serum 0.64 mg/dL (0.70-1.30); EST Glomerular Filtration Rate 134 mL/min (>60); Est Glom Filt Rate - Afr Amer 162 mL/min (>60); Estimated Creatinine Clearance 67.94 ml/min; Globulin 5.6 g/dL (2.2-4.2); Glucose 104 mg/dL (74-106); Lactic Acid 2.2 mmol/L (0.4-1.9); Potassium 5.4 mmol/L (3.5-5.1); Protein, Total 7.9 g/dL (6.4-8.2); Sodium Level 119 mmol/L (136-145)
--- NOTE | 2020-04-15 11:45 | RAD_ITS ---
STUDY: X-RAY - RIGHT FOOT CLINICAL: Male, 65 years old. Necrotic second toe, infection. TECHNIQUE: 3 view(s) of the foot. COMPARISON: Comparison is made with prior study dated 09/26/2019. FINDINGS: There is a plantar calcaneal spur. Normal visualized subtalar, talonavicular, calcaneocuboid, tarsal and tarsometatarsal articulations. There is demineralization of the metatarsi. There is degenerative arthrosis of the metatarsophalangeal joint of the hallux . Normal tibial and fibular sesamoid bones. Normal interphalangeal joint of the great toe. Normal phalanges of the great toe. Normal second through fifth metatarsophalangeal joints. There is evidence of bony destruction of the distal phalanx of the second toe as well as erosive changes of the distal aspect of the middle phalanx of the second toe. There is non-specific soft tissue swelling of the foot. Vascular calcification. RAD/Foot min 3 Views IMPRESSION: Bony destruction of the distal phalanx and middle phalanx of the second toe with the soft tissue swelling and vascular calcification. Electronically Signed: Aayush Ibarra MD at 12:27 EST , Service support ,
--- NOTE | 2020-04-15 11:58 | RAD_ITS ---
STUDY: X-RAY CHEST REASON FOR EXAM: Male, 65 years old. Fever, multiple wounds, necrotic second toe. TECHNIQUE: Single AP portable view of the chest. COMPARISON: Comparison is made with prior study 12/16/2019. FINDINGS: EKG electrodes are seen. The lungs are clear and expanded. There is no demonstrated pleural abnormality. Normal size heart. Normal mediastinum and andrea. Normal visualized pulmonary arteries. There is atherosclerotic tortuosity of the aortic arch and descending thoracic aorta. There are diffuse degenerative changes of the visualized thoracic spine. There is degenerative osteoarthritis of the bilateral shoulders. There is no demonstrated abnormality of the visualized soft tissue structures of the upper abdomen. RAD/Chest 1 View (Portable) IMPRESSION: No acute abnormality is seen. Electronically Signed: Aayush Ibarra MD at 12:25 EST , Service support ,
--- NOTE | 2020-04-15 12:43 | ED.RN ---
paged dr campbell
[2020-04-15] MEDS: 0.9% Normal Saline 1,000 ML 999 ML IV ×3 (13:05→18:26)
--- NOTE | 2020-04-15 13:09 | NURSING ---
DR CAYLA BRADFORD
--- NOTE | 2020-04-15 13:12 | NURSING ---
MED SURG CAYLA ISCHIAL, SACREAL WOUNDS, HYPONATREMIA, NECROTIC TOE
--- NOTE | 2020-04-15 13:22 | NURSING ---
ICU SEVERE SEPSIS CAYLA
--- NOTE | 2020-04-15 13:41 | PCM.HP.STD ---
Problem List (1) Severe sepsis Status: Acute (2) Hyponatremia Status: Acute (3) Microcytic anemia Status: Chronic (4) Thrombocytosis Status: Acute (5) Lactic acidosis Status: Acute (6) Transaminitis Status: Acute (7) Gangrene of toe of right foot Status: Chronic (8) Osteomyelitis of toe of right foot Status: Chronic (9) Sacral pressure ulcer Status: Chronic Qualifiers: (10) Acute osteomyelitis of right pelvic region Status: Chronic (11) Anal cancer Status: Chronic (12) Anxiety and depression Status: Chronic (13) COPD (chronic obstructive pulmonary disease) Status: Chronic Qualifiers: (14) Candidal skin infection Status: Chronic (15) Chronic osteomyelitis of right pelvic region Status: Chronic (16) Debility Status: Chronic (17) Decubitus ulcer of left heel, stage 2 Status: Chronic (18) Decubitus ulcer of left heel, stage 4 Status: Chronic (19) GERD (gastroesophageal reflux disease) Status: Chronic (20) HLD (hyperlipidemia) Status: Chronic Qualifiers: (21) HTN (hypertension) Status: Chronic Qualifiers: (22) Hepatitis C carrier Status: Chronic (23) History of anal cancer Status: Chronic (24) History of total left knee replacement Status: Chronic (25) Infection and inflammatory reaction due to internal left knee prosthesis, initial encounter Status: Chronic (26) Late effect of radiation Status: Chronic Comment: right ischial area (27) Non-healing open wound of right groin Status: Chronic (28) PAD (peripheral artery disease) Status: Chronic (29) Peripheral vascular disease Status: Chronic (30) Personal history of Methicillin resistant Staphylococcus aureus infection Status: Chronic (31) Pressure sore of left ischium, stage 4 Status: Chronic (32) Pressure ulcer of right buttock, stage 3 Status: Chronic (33) Pressure ulcer of toe of right foot Status: Chronic Qualifiers: (34) Pressure ulcer, heel, right, unstageable Status: Chronic (35) Right ischial pressure sore, stage 4 Status: Chronic (36) Skin necrosis Status: Chronic (37) Skin ulcer of elbow with fat layer exposed Status: Chronic (38) Skin ulcer of left thigh with fat layer exposed Status: Chronic (39) Soft tissue radionecrosis Status: Chronic (40) Toe necrosis Status: Chronic (41) Ulcer of right foot with necrosis of bone Status: Chronic (42) Ulcer of right groin with fat layer exposed Status: Chronic (43) Unstageable pressure ulcer of left heel Status: Chronic (44) Unstageable pressure ulcer of right heel Status: Chronic (45) Malnutrition Status: Suspected History of Present Illness Date of Admission: 04/15/20 Mr. Rincon is a 65 year old WM with a PMH of OM right foot, chronic right and left ischial stage IV pressure ulcers, stage II sacral pressure ulcer, history of right groin abscess, history of anal cancer status post chemo and radiation(colostomy in place), COPD, HTN, HPL, chronic microcytic anemia, chronic hepatitis C, GERD, anxiety, depression, debility, moderate malnutrition, and chronic pain. Scented to was from hospital on 04/15/2020 from an [facility] facility secondary to fever and wounds. Patient states that he has had these wounds chronically and had been following 2 times monthly at the wound center but states since his discharge to his [facility] facility and this past summer he has not been following up regularly with the wound center. He states that he is just had malaise and some fatigue over the last couple days but has not noticed any other symptoms. He denies coughing, fevers, chills, or change in bowel habits. Has an ostomy that was placed secondary to anal cancer a chronic Walker. Since he department he is been afebrile since he presented, his heart rate has been within normal limits, he has had some borderline blood pressures but his most recent is 101/69 after fluid boluses, his respiratory rate is 20-21 and his sats are 93-97 on room air. He has a mildly elevated white count at 12.5, he is a chronic microcytic anemia that is stable when compared to previous lab, and a thrombocytosis with a platelet count of 650,000. There is a left shift present. His CMP shows marked hyponatremia with a sodium of 119, mild hyperkalemia with a potassium of 5.4 and a BUN and creatinine that are higher than baseline. He does have baseline hyponatremia and it appears he runs anywhere from high 120s to 135. He has a mild lactic acidosis at 2.2, and mild transaminitis with an AST of 55 and ALT of 62. A UA was performed and has occult blood and leuk esterase with white cells but he has a chronic Walker in place so I suspect this is more contaminant than infection, however the urine culture was sent. An x-ray of his foot showed bony destruction of the distal phalanx and middle phalanx of the second toe with soft tissue swelling and vascular calcification the chest x-ray showed no acute process. Blood cultures were obtained in the emergency department as well and the patient was given Vanco and Zosyn. He will be admitted to [facility] with consultations to Dr. Mesa, podiatry, and be placed on broad-spectrum antibiotics. Wound cultures from 10/01/2019 were reviewed and were significant for Enterobacter Mani knees and Proteus mirabilis. Past Medical History Past Medical History (Chronic Problems): Chronic Problems Microcytic anemia (Chronic) Ulcer of right groin with fat layer exposed (Chronic) Ulcer of right foot with necrosis of bone (Chronic) Sacral pressure ulcer (Chronic) Pressure ulcer, heel, right, unstageable (Chronic) Decubitus ulcer of left heel, stage 4 (Chronic) Pressure ulcer of toe of right foot (Chronic) Toe necrosis (Chronic) Gangrene of toe of right foot (Chronic) Osteomyelitis of toe of right foot (Chronic) Peripheral vascular disease (Chronic) Unstageable pressure ulcer of right heel (Chronic) Unstageable pressure ulcer of left heel (Chronic) Non-healing open wound of right groin (Chronic) Skin necrosis (Chronic) Pressure sore of left ischium, stage 4 (Chronic) Candidal skin infection (Chronic) 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) Infection and inflammatory reaction due to internal left knee prosthesis, initial encounter (Chronic) History of total left knee replacement (Chronic) Skin ulcer of left thigh with fat layer exposed (Chronic) Pressure ulcer of right buttock, stage 3 (Chronic) Skin ulcer of elbow with fat layer exposed (Chronic) Decubitus ulcer of left heel, stage 2 (Chronic) Debility (Chronic) Personal history of Methicillin resistant Staphylococcus aureus infection (Chronic) Acute osteomyelitis of right pelvic region (Chronic) History of anal cancer (Chronic) 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, 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) Anal cancer (Chronic) Hepatitis C carrier (Chronic) COPD (chronic obstructive pulmonary disease) (Chronic) Anxiety and depression (Chronic) HTN (hypertension) (Chronic) HLD (hyperlipidemia) (Chronic) GERD (gastroesophageal reflux disease) (Chronic) PAD (peripheral artery disease) (Chronic) Allergies chlorthalidone Allergy (Verified 04/15/20 10:46) Other famotidine Allergy (Verified 04/15/20 10:46) Unknown povidone-iodine [From Betadine] Allergy (Verified 04/15/20 10:46) Hives soap Adverse Reaction (Verified 04/15/20 10:46) Hives Uizlknu-Ssb-Aus Reductase Inhibitor Adverse Reaction (Verified 04/15/20 10:46) MESSED MY LIVER UP adhesive tape Allergy (Uncoded 04/15/20 10:46) Itching/rash Home Medications: Ambulatory Orders Medication Instructions Recorded Fluticasone 0.05% [Flonase Nasal 1 spray NASAL DAILY 03/22/16 [place]] Multivitamin [Multiple Vitamins] 1 tab PO DAILY 03/22/16 buPROPion XL [Wellbutrin Xl] 300 mg PO QHS 03/22/16 Metoprolol Tartrate [Lopressor 25 mg PO BID 01/19/18 (beta curt)] Ferrous Gluconate 324 mg PO BID 08/22/18 Gabapentin [Neurontin] 600 mg PO TID 08/12/19 Oxycodone HCl [Oxycodone HCl ER] 10 mg PO Q6H PRN PRN 12/03/19 Cholecalciferol (Vitamin D3) 25 mcg PO DAILY 12/16/19 [Vitamin D3] Escitalopram Oxalate 10 mg PO DAILY 12/16/19 Ezetimibe [Zetia] 10 mg PO QHS 12/16/19 Acetaminophen 1,000 mg PO TID 04/15/20 Amlodipine [Norvasc] 5 mg PO DAILY 04/15/20 Argin/Glut/Cahmb/Collag/Mv-Min 1 ea PO DAILY 04/15/20 [Chuy Packet] Aspirin [Aspirin, Baby] 81 mg PO DAILY@0800 04/15/20 Docusate Sodium [Colace] 200 mg PO BID 04/15/20 Omeprazole 40 mg PO DAILY 04/15/20 Oxybutynin Chloride 5 mg PO BID 04/15/20 Oxycodone CR [Oxycontin] 20 mg PO Q12H 04/15/20 Polyethylene Glycol 3350 [Miralax] 17 gm PO DAILY 04/15/20 Tiotropium [place] [Spiriva 2 puff IH DAILY 04/15/20 Respimat] Tizanidine HCl [Zanaflex] 4 mg PO Q8H PRN 04/15/20 Surgical History: total hip arthroplasty - left, total knee arthroplasty, - - 12/30/16 Surgical preparation right gluteal/ischial area with excision radiation pressure sore abscess wound and partial ostectomy for osteomyelitis (52.5 cm2), 06/08/17 Excision radiation pressure sore abscess ulcer right ischial area, Stage IV, with partial ostectomy for osteomyelitis, 10/17/17 Excision radiation pressure sore abscess ulcer right ischial area, Stage IV, with partial ostectomy for osteomyelitis. Psychiatric History: No pertinent psych hx Smoking Status: Former smoker - *Family History Maternal History Items: - - Denies known maternal medical history including cardiac history. Paternal History Items: - - Denies known paternal medical history including cardiac history. Review of Systems Constitutional: Reports: Malaise, Weakness, Fatigue. Denies: Anorexia, Chills, Fever, Night Sweats, Weight Change Eyes: Denies: Blurred vision, Cataracts, Conjunctivae Inflammation, Double vision, Drainage, Eyelid Inflammation, Pain, Redness, Vision Change HEENT: Denies: Difficulty Hearing, Difficulty Swallowing, Ear Pain, Eye Pain, Head Aches, Nasal bleeding, Nasal Congestion, Post Nasal Drip, Sinus Congestion, Sinus Drainage, Sore Throat, Visual Changes Cardiovascular: Denies: Chest Pain, Claudication, Chest Pressure, Chest Tightness, Edema, Heaviness, Light Headedness, Orthopnea, Palpitations, Paroxysmal Noc. Dyspnea, Syncope Respiratory: Denies: Cough, Hemoptysis, Pleuritic Pain, Shortness of Breath, Shortness of breath at rest, Shortness of breath upon exertion, Sputum production, Wheezing Gastrointestinal: Denies: Abdominal Pain, Constipation, Diarrhea, Dyspepsia, Hematemesis, Hematochezia, Nausea, Melena, Vomiting Genitourinary: Denies: Dysuria, Frequency, Hematuria, Hesitancy, Incontinence, Nocturia, Retention, Urgency Musculoskeletal: Denies: Back Pain, Joint Pain, Joint stiffness, Joint swelling, Joint Tenderness, Muscle pain, Neck Pain Skin: Reports: Wounds. Denies: Dryness, Jaundice, Lesions, Pruritis, Rash, Skin Changes Neurological: Reports: Focal weakness - Lateral lower extremity. Denies: Balance problems, Blurred vision, Double vision, Change in Speech, Slurred speech, Confusion, Difficulty swallowing, Headaches, Incoordination, Numbness, Tingling, Tremor, Seizures Psychiatric: Reports: Anxiety, Depression Endocrine: Denies: Change in Body Habitus, Heat/ Cold Intolerance, Polydipsia, Polyuria Hematologic/ Lymphatic: Reports: Anemia. Denies: Adenopathy, Easy Bruising, Easy Bleeding, Petechiae, Purpura VTE Information - Inpt Only VTE Present on Admission: No VTE Mechan Device Prophylaxis: SCD's VTE Pharm Prophylaxis ordered?: Yes Patient Problems: Active and Suspected Problems Severe sepsis (Acute) Hyponatremia (Acute) Thrombocytosis (Acute) Lactic acidosis (Acute) Transaminitis (Acute) Malnutrition (Suspected) - Physical Exam Vitals/I&O's: Vital Signs Temp Pulse Resp BP Pulse Ox 98.5 F 74 21 H 101/69 93 04/15/20 13:12 04/15/20 13:12 04/15/20 13:12 04/15/20 13:12 04/15/20 13:12 Oxygen Delivery Method Room Air Weight: 70.3 kg Body Mass Index (BMI) 24.3 Intake and Output for Last 24 Hours 04/13/20 04/14/20 04/15/20 23:59 23:59 23:59 Intake Total 500 / 500 Balance 500 / 500 General: Alert, Oriented x3, Cooperative, No apparent distress, Well developed, Well nourished, - - Grouchy older white male lying in bed sipping ice chips HEENT: Atraumatic, PERRLA, EOMI, Normocephalic, EAC Clear Oral: Moist Mucosa, No Gingival or Mucosal Lesions/ Ulcerations, - - Her dentition, Mallampati 2 Neck: Supple, No JVD, Negative Carotid Bruits, Negative Hepatojugular Reflux, No Nodes, No Nuchal Rigidity, Trachea Midline Lungs: Clear to auscultation, Normal air movement, No rhonchi, No wheeze, No rales, Diminished Cardiovascular: Regular rate, Regular Rhythm, Normal S1, Normal S2, No murmurs, No Ectopic Activity, No rub noted, No Gallop Abdomen: Bowel Sounds Present, Soft, Non Tender, Non-Distended, - - Ostomy in place with good output Extremities: No clubbing, No cyanosis, No edema, Cool, Diminished Peripheral Pulses, - - Leg cap refill Skin: No rashes, Ulcer/ Wound - Bilateral ischial and sacral wounds bandages removed and no significant drainage, appears to have decent granulation and no eschar, - - Right foot with dry gangrene of multiple toes Musculoskeletal: Arthritic Changes, Muscle Wasting Lymphatic: No Cervical, Supraclavicular, or Inguinal Adenopathy Neurological: Cranial nerves II-XII grossly intact, Deep Tendon Reflexes 2+/4 and Symmetrical, Neuro grossly intact, - - Bilateral lower extremity weakness from chronic disuse Psych/Mental Status: Appropriate, Agitated Laboratory Results 04/15/20 10:45: WBC 12.5 H, RBC 3.65 L, Hgb 8.4 L, Hct 27.0 L, MCV 74.0 L, MCH 23.0 L, MCHC 31.1 L, RDW Std Deviation 44.2 H, RDW Coeff of [place] 16.3 H, Plt Count 650 H, MPV 7.7, Immature Gran % (Auto) 1.600 H, Neut % (Auto) 74.0 H, Lymph % (Auto) 10.0 L, [place] % (Auto) 13.9 H, Eos % (Auto) 0.3, Baso % (Auto) 0.2, Absolute Neuts (auto) 9.2 H, Absolute Lymphs (auto) 1.25, Nucleated RBC % 0, Differential Comment SCANNED, Diff Path Review May foll, Hypochromasia 3+, Microcytosis 2+, Target Cells 1+ 04/15/20 10:45: Sodium 119 L*, Potassium 5.4 H, Chloride 85 L, Carbon Dioxide 29.0, Anion Gap 5, BUN 20 H, Creatinine 0.64 L, Estim Creat Clear Calc 67.94, Est GFR (MDRD) Af Amer 162, Est GFR (MDRD) Non-Af 134, BUN/Creatinine Ratio 31.4 H, Glucose 104, Calcium 9.5, Total Bilirubin 0.30, AST 55 H, ALT 62 H, Alkaline Phosphatase 270 H, Total Protein 7.9, Albumin 2.3 L, Globulin 5.6 H, Albumin/Globulin Ratio 0.4 L 04/15/20 10:45: Lactic Acid 2.2 H* 04/15/20 11:08: Urine Color Yellow, Urine Clarity Cloudy, Urine pH 8.0, Ur Specific [place] 1.010, Urine Protein 30 H, Urine Glucose (UA) Normal, Urine Ketones Negative, Urine Occult Blood 150 H, Urine Nitrite Negative, Urine Bilirubin Negative, Urine Urobilinogen Normal, Ur Leukocyte Esterase 500 H, Urine RBC 10-25 SEEN, Urine WBC 25-50 SEEN, Ur Squamous Epith Cells 0-5 SEEN, Triple Phos Crystals 2+, Urine Bacteria 2+, Urine Mucus 0 SEEN Current Medications Sodium Chloride () 1,000 mls @ 999 mls/hr IV .Q1H1M ONE Stop: 04/15/20 14:11 Vancomycin HCl (Vancomycin) 1,000 mg in 200 mls @ 200 mls/hr IV X1 ONE Stop: 04/15/20 14:29 Assessment/Plan All Active Problems Severe sepsis (Acute) Hyponatremia (Acute) Thrombocytosis (Acute) Lactic acidosis (Acute) Transaminitis (Acute) Abscess of right groin (Resolved) Hyponatremia (Resolved) MRSA bacteremia (Resolved) Severe sepsis secondary to suspected wound infections -Patient's blood pressure has responded well to IV hydration -Lactate was initially 2.2--repeat> according to protocol -Blood and urine cultures have been performed are pending -Start Vanco and Zosyn -Consultation Dr. Mesa to address sacral pressure ulcers/buttock pressure ulcers -Consult podiatry to assess right lower extremity Hypovolemic hyponatremia -Patient does have chronic hyponatremia with a baseline sodium of 128-134 -70 admission was 119 -We will hydrate and reassess BMP in a.m. -Check TSH Hyperkalemia -Mild at 5.4 -IV hydration--> suspect this is related to hypovolemia -BMP in a.m. Chronic right lower extremity foot ulceration and dry gangrene -Podiatry consult Bilateral buttock and sacral pressure ulcers-stage IV -Consult Dr. Mesa -Antibiotics as above -We will need outpatient wound care follow-up Thrombocytosis -Suspect reactive -We will trend Lactic acidosis -Mild -Cycle -BP has responded to IV fluids Transaminitis -Patient has chronic hep C--> suspect his enzyme elevations may related to this -We will trend as they were normal in September Acute on chronic pain -We will continue his home pain medications as ordered -As needed Dilaudid for breakthrough pain Hypertension -Hold home antihypertensives with borderline blood pressure -Expect should be able to restart in a.m. Hyperlipidemia -Continue Zetia GERD -Continue omeprazole Urinary retention -Continue oxybutynin Anal cancer status post colostomy -Consult ostomy/wound nurse Moderate malnutrition -Supplements -Cardiac diet Depression/anxiety -Continue home medications DVT prophylaxis -Lovenox and SCDs CODE STATUS -We will clarify tomorrow Inpatient E&M: [id number] Init Hosp L3
[2020-04-15] MEDS: Vancomycin IV 1,000 MG/200 ML BAG 200 MG IV (14:10)
[2020-04-15 15:02] LABS: Reflex Lactate? Y
--- NOTE | 2020-04-15 15:33 | NURSING ---
RN CM Assessment Introduced role of RN CM to patient.? Patient is alert, oriented and able?to participate in RN CM Assessment. ?Care providers, pharmacy, and demographics verified. Admit Dx: Severe Sepsis Re-Admit: No Barriers/Issues: Patient is from an [facility] PCP: ?Rob Atkins- patient denies PCP Specialists: Moshe Preferred [facility]acy: [facility] Insurance: [facility] A/B, [facility] Rx Benefit:?Yes LNOK: Brother Nehemias Rincon LW/HPOA: None, provided information on advanced directives. Denies completion on this admission. Living Arrangements:? Lives at [facility] ADL?s: Chair Bound, total assist with all ADLs Transportation: [facility] DME: SKYLAR, WINNIE, Shower Chair, Grab Bars HHC: Past SNF: Past Goal: Return to [facility]. Denies any issues, questions or concerns with DC planning at this time. Aware RNCM will continue to follow for any emerging needs. DC PLAN: Return to [facility], RNCM to f/u on PT/OT for any skilled need. SHRADDHA De Jesus
--- NOTE | 2020-04-15 15:51 | PCM.RX.CS ---
Consult Pharmacy has been consulted to manage selected antiobiotic: Vancomycin Type of Consult: New start Suspected Infection: Sepsis Labs: Sodium 119 mmol/L (136-145) L* 04/15/20 10:45 Potassium 5.4 mmol/L (3.5-5.1) H 04/15/20 10:45 Chloride 85 mmol/L (98-107) L 04/15/20 10:45 Carbon Dioxide 29.0 mmol/L (21.0-32.0) 04/15/20 10:45 Anion Gap 5 (5-15) 04/15/20 10:45 BUN 20 mg/dL (7-18) H 04/15/20 10:45 Creatinine 0.64 mg/dL (0.70-1.30) L 04/15/20 10:45 Est GFR (MDRD) Af Amer 162 mL/min (>60) 04/15/20 10:45 Est GFR (MDRD) Non-Af 134 mL/min (>60) 04/15/20 10:45 BUN/Creatinine Ratio 31.4 RATIO (10-20) H 04/15/20 10:45 Glucose 104 mg/dL (74-106) 04/15/20 10:45 Goal Trough: 15-20 mcg/mL Pharmacy Plan for Drug Dosing: NEW START IV VANCOMYCIN Consulting Physician: Dr. Malick Rae Indication: Sepsis Goal Trough: 15-20 SrCr: 0.64 CrCl: 68 mL/min Comments: Initial ED dose of 1000mg IV x1 ordered and administered 04/15/20 @1410. Loading dose ordered under consult. Rather than giving a supplemetal dose, will start scheduled dosing ~8hrs from initial dose to compensate for loading vs. initial dose difference Vancomcyin Dose: 750 mg IV Q12hr to start 04/15/20 @2200 (~8hrs form initial dose) Pending Level: 04/16/20 @2130 (prior to 4th total dose per protocol) Pharmacy Service will continue to monitor and adjust dosing as required.
[2020-04-15 16:00] LABS: Lactic Acid 1.6 mmol/L (0.4-1.9)
[2020-04-15] MEDS: oxyCODONE 5 MG Tablet 10 MG PO (17:04)
[2020-04-15] MEDS: Gabapentin 600 MG Tablet PO ×2 (17:05→21:37)
[2020-04-15] MEDS: Ferrous Gluconate 324 MG Tablet PO (17:05)
--- NOTE | 2020-04-15 17:38 | PCM.PN.SRG ---
Patient Problems: Active and Suspected Problems Severe sepsis (Acute) Hyponatremia (Acute) Thrombocytosis (Acute) Lactic acidosis (Acute) Transaminitis (Acute) Malnutrition (Suspected) - Physical Exam Vitals/I&O's: Vital Signs Temp Pulse Resp BP Pulse Ox 99.4 F H 79 24 H 108/56 L 94 04/15/20 15:15 04/15/20 15:15 04/15/20 15:15 04/15/20 15:15 04/15/20 16:44 Oxygen Delivery Method Room Air Weight: 150 lb 9.211 oz Body Mass Index (BMI) 23.6 Intake and Output for Last 24 Hours 04/13/20 04/14/20 04/15/20 23:59 23:59 23:59 Intake Total 750 / 750 Balance 750 / 750 Laboratory Results 04/15/20 10:45: WBC 12.5 H, RBC 3.65 L, Hgb 8.4 L, Hct 27.0 L, MCV 74.0 L, MCH 23.0 L, MCHC 31.1 L, RDW Std Deviation 44.2 H, RDW Coeff of [place] 16.3 H, Plt Count 650 H, MPV 7.7, Immature Gran % (Auto) 1.600 H, Neut % (Auto) 74.0 H, Lymph % (Auto) 10.0 L, [place] % (Auto) 13.9 H, Eos % (Auto) 0.3, Baso % (Auto) 0.2, Absolute Neuts (auto) 9.2 H, Absolute Lymphs (auto) 1.25, Nucleated RBC % 0, Differential Comment SCANNED, Diff Path Review May foll, Hypochromasia 3+, Microcytosis 2+, Target Cells 1+ 04/15/20 10:45: Sodium 119 L*, Potassium 5.4 H, Chloride 85 L, Carbon Dioxide 29.0, Anion Gap 5, BUN 20 H, Creatinine 0.64 L, Estim Creat Clear Calc 67.94, Est GFR (MDRD) Af Amer 162, Est GFR (MDRD) Non-Af 134, BUN/Creatinine Ratio 31.4 H, Glucose 104, Calcium 9.5, Total Bilirubin 0.30, AST 55 H, ALT 62 H, Alkaline Phosphatase 270 H, Total Protein 7.9, Albumin 2.3 L, Globulin 5.6 H, Albumin/Globulin Ratio 0.4 L 02/03/21 10:45: Lactic Acid 2.2 H* 04/15/20 11:08: Urine Color Yellow, Urine Clarity Cloudy, Urine pH 8.0, Ur Specific [place] 1.010, Urine Protein 30 H, Urine Glucose (UA) Normal, Urine Ketones Negative, Urine Occult Blood 150 H, Urine Nitrite Negative, Urine Bilirubin Negative, Urine Urobilinogen Normal, Ur Leukocyte Esterase 500 H, Urine RBC 10-25 SEEN, Urine WBC 25-50 SEEN, Ur Squamous Epith Cells 0-5 SEEN, Triple Phos Crystals 2+, Urine Bacteria 2+, Urine Mucus 0 SEEN 04/15/20 15:19: Lactic Acid 1.6 04/15/20 15:45: MRSA (PCR) Pending Current Medications Acetaminophen (Acetaminophen 325 Mg Tablet) 650 mg PO Q6H PRN PRN PRN Reason: Pain Score 1-10/Temp > 100.7 F Al Hydroxide/Mg Hydroxide (Mag Hydrox/Al Hydrox/Simeth 30 Ml Udc) 30 ml PO Q6H PRN PRN PRN Reason: Gastric Burning Albuterol Sulfate (Albuterol 2.5 Mg/3 Ml Vial.Neb.) 2.5 mg INHALATION Q2H PRN PRN PRN Reason: SOB/Wheezing Amlodipine Besylate (Amlodipine 5 Mg Tablet) 5 mg PO DAILY [facility] Aspirin (Aspirin E.C. 81 Mg Tablet) 81 mg PO DAILY@0800 [facility] Bupropion HCl (Bupropion (Xl) 300 Mg Tablet.Xl) 300 mg PO QHS [facility] Diphenhydramine HCl (Diphenhydramine 25 Mg Capsule) 25 mg PO Q6H PRN PRN PRN Reason: ITCHING Docusate Sodium (Docusate Sodium 100 Mg Capsule) 200 mg PO BID [facility] Ezetimibe (Ezetimibe 10 Mg Tablet) 10 mg PO QHS [facility] Enoxaparin Sodium (Enoxaparin 40 Mg/0.4 Ml Syringe) 40 mg SC DAILY [facility] Escitalopram Oxalate (Escitalopram Oxalate 10 Mg Tablet) 10 mg PO DAILY [facility] Ferrous Gluconate (Ferrous Gluconate 324 Mg Tablet) [facility] Last Admin: 04/15/20 17:05 Dose: 324 mg Documented by: Fluticasone Propionate (Fluticasone 0.05% 1 Paia Nasal.Sry) 1 spray NASAL QHS [facility] Gabapentin (Gabapentin 600 Mg Tablet) 600 mg PO TID [facility] Last Admin: 04/15/20 17:05 Dose: 600 mg Documented by: Guaifenesin (Guaifenesin 10 Ml Udc (200mg/10ml)) 5 ml PO Q6H PRN PRN PRN Reason: COUGH Hydromorphone HCl (Hydromorphone 0.5 Mg/0.5 Ml Syringe) 0.5 mg IV Q4H PRN PRN PRN Reason: BREAKTHROUGH Pain Score 6-10 Sodium Chloride () 1,000 mls @ 999 mls/hr IV .Q1H1M [facility]; Protocol Stop: 04/15/20 17:40 Vancomycin IV Pharmacy to Dose (1 ea/ Sodium Chloride) 500 mls @ 250 mls/hr IV PRN PRN; Protocol PRN Reason: Rx to Dose Piperacillin Sod/Tazobactam (Sod 3.375 gm/ Sodium Chloride) 50 mls @ 12.5 mls/hr IV Q8 [facility] Vancomycin HCl 750 mg/ Sodium (Chloride) 265 mls @ 250 mls/hr IV Q12H [facility] Ipratropium [place] (Ipratropium 0.5 Mg/2.5 Ml Solution) 0.5 mg INHALATION Q6HWA.RT [facility] Melatonin (Melatonin 3 Mg Tablet) 3 mg PO QHS PRN PRN PRN Reason: INSOMNIA Multivitamins (Multivitamins,Therapeutic Tablet) 1 tablet PO DAILYCM [facility] Nutritional Formula (Nutritional Supplement (Chuy) Packet) 1 packet PO DAILY [facility] Nutritional Formula (Lactose Free) (Ensure Enlive 120 Ml Liquid) 120 ml PO 4X/DAY [facility] Last Admin: 04/15/20 17:05 Dose: Not Given Documented by: Ondansetron HCl (Ondansetron 4 Mg/2 Ml Vial) 4 mg IV Q8H PRN PRN PRN Reason: NAUSEA/VOMITING Oxybutynin Chloride (Oxybutynin 5 Mg Tablet) 5 mg PO BID [facility] Oxycodone HCl (Oxycodone Cr 20 Mg Tablet) 20 mg PO Q12 [facility] Oxycodone HCl (Oxycodone 5 Mg Tablet) 10 mg PO Q6H PRN PRN PRN Reason: Pain Score 6-10 Last Admin: 04/15/20 17:04 Dose: 10 mg Documented by: Pantoprazole Sodium (Pantoprazole Sodium 40 Mg Tablet) 40 mg PO DAILY [facility] Polyethylene Glycol (Polyethylene Glycol 3350 17 Gm Packet) 17 gm PO DAILY [facility] Senna/Docusate Sodium (Senna/Docusate Sodium 1 Tablet) 2 tablet PO BID PRN PRN Reason: Constipation Sodium Chloride (0.9% Saline Lock 10 Ml Syringe) 10 - 40 ml IV UD PRN PRN Reason: SALINE FLUSH Sodium Hypochlorite (Dakin's Venessa Half Strength (=0.25%)) 1 applic TOPICAL BID [facility]; Protocol Tizanidine HCl (Tizanidine Hcl 2 Mg Tablet) 4 mg PO Q8H PRN PRN PRN Reason: SPASMS Medical Necessity - Tobacco Use Smoking Status: Former smoker Assessment/Plan All Active Problems Severe sepsis (Acute) Hyponatremia (Acute) Thrombocytosis (Acute) Lactic acidosis (Acute) Transaminitis (Acute) Abscess of right groin (Resolved) Hyponatremia (Resolved) MRSA bacteremia (Resolved)
--- NOTE | 2020-04-15 17:40 | PCM.CONS.B ---
- Consult Date of Consult: 04/15/20 - Reason for Consult Sacral pressure sore, Stage IV, and bilateral ischial pressure sores, Stage IV, with osteomyelitis and radiation damage. REFERRING PHYSICIAN: Dr. Rae. AUTOMOBILE DEALER: Dr. Mesa. HISTORY OF PRESENT ILLNESS Mr. Rincon is a 65 year old WM presented to the ED from the [facility] with fever and malaise and fatigue. His WBC was 12.5. His Lactate was 2.2 His Urinalysis was positive. He was started on Vancomycin and Zosyn. CT was done which showed borderline hepatomegaly with stable small hepatic cysts. Colostomy seen in the anterior left abdominal wall. Fluid collection with a small amount of air overlying the left inferior iliac bone posteriorly. Destruction of the right femoral head and cephalic migration of the proximal femur with bony destruction of the acetabulum. Patient is known to me. He recently underwent surgery on 10/01/19 where he underwent excision recurrent right ischial pressure sore, Stage IV, with partial ostectomy for osteomyelitis and excision left ischial pressure sore, Stage IV, with partial ostectomy for osteomyelitis and excision sacral pressure sore, Stage IV, with partial ostectomy for osteomyelitis. His wound care at the [facility] was Dakin's dressing changes. I was asked to evaluate this patient's multiple pressure sore ulcers for surgical options for treatment. PAST MEDICAL HISTORY COPD. Hepatitis C carrier. Anal carcinoma treated with chemotherapy and radiation therapy. Late effect radiation. MRSA. 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 PAST SURGICAL HISTORY Total hip arthroplasty - left. Total knee arthroplasty - Surgical preparation right gluteal/ischial area with excision radiation pressure sore abscess wound and partial ostectomy for osteomyelitis (52.5 cm2) - 12/30/16 Excision radiation pressure sore abscess ulcer right ischial area, Stage IV, with partial ostectomy for osteomyelitis - 06/08/17 Excision radiation pressure sore abscess ulcer right ischial area, Stage IV, with partial ostectomy for osteomyelitis - 10/17/17 Flap closure at [facility] Diverting colostomy - 09/15/18 Excision recurrent right ischial pressure sore, Stage IV, with partial ostectomy for osteomyelitis - 02/11/19 Excision recurrent right ischial pressure sore, Stage IV, with partial ostectomy for osteomyelitis and excision necrotic left ischial pressure sore, Stage IV, with partial ostectomy for osteomyelitis - 08/13/19 Surgical preparation right inguinal area and right proximal thigh area with incision and drainage and excisional debridement submuscular abscess - 08/21/19 ALLERGIES povidone-iodine [From Betadine] Allergy - Hives Zeussbr-Ukw-Pyp Reductase Inhibitor Adverse Reaction - MESSED MY LIVER UP adhesive tape Allergy - Itching/rash HOME MEDICATIONS Norvasc. Vitamin C. Wellbutrin. Benadryl. Buspar. Vitamin D3. Cardura. Lexapro. Zetia. Ferrous Gluconate. Flonase. Neurontin. Motrin. Metoprolol. Myocostatin. MVI. Omeprazole. OxyIR. Zanaflex. Ellipta. Vancomycin. SOCIAL HISTORY Lives: With Family Smoking Status: Former smoker Tobacco Use: Non-smoker Alcohol: None Drugs: None FAMILY HISTORY Maternal - no pertinent history Paternal - no pertinent history REVIEW OF SYSTEMS Constitutional: Denies: Chills, Fever, Weight Change. HEENT: Denies: Head Aches, Sinus Congestion, Sinus Drainage. Cardiovascular: Denies: Chest Pain, Palpitations. Respiratory: Denies: Cough, Shortness of breath at rest, Sputum production. Gastrointestinal: Denies: Abdominal Pain, Nausea, Vomiting. Genitourinary: Denies: Dysuria. Musculoskeletal: Denies: Joint Pain, Joint Tenderness. Skin: Reports: Wounds - right buttocks., -. Denies: Rash. Neurological: Denies: Numbness, Tingling, Focal weakness. Psychiatric: Denies: Anxiety, Depression, Homicidal Ideations, Suicidal Ideations. 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 There is exposed bone. Some exudate present. Some fat necrosis present. Right side measures 7 x 4.5 x 3.8 cm. Left side measures 4.5 x 7.5 x 2.2 cm. There is a chronic sacral pressure sore, Stage IV. There is exposed bone. Some exudate present. Some fat necrosis present. It measures 2.5 x 1.7 x 0.2 cm. Has a right inguinal and proximal thigh ulcer. Measures 12.5 x 5 x 2 cm. Some exudate present. Neurological: Cranial nerves II-XII grossly intact Psych/Mental Status: Normal Affect, Appropriate ASSESSMENT 1. Recurrent right ischial pressure sore, Stage IV. 2. Sepsis. 3. 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 4. Osteomyelitis. 5. MRSA. 6. Left ischial pressure sore, Stage IV. 7. Sacral pressure sore, Stage IV. 8. History of anal CA treated with chemotherapy and radiation therapy. 9. Anemia of chronic disease. 10. UTI. PLAN CT reviewed from 04/15/20. It showed borderline hepatomegaly with stable small hepatic cysts. Colostomy seen in the anterior left abdominal wall. Fluid collection with a small amount of air overlying the left inferior iliac bone posteriorly. Destruction of the right femoral head and cephalic migration of the proximal femur with bony destruction of the acetabulum. Continue Vancomycin and Zosyn. Has a UTI. WBC is 12.5. Lactate was 2.2. Will start Dakin's dressing changes to the ulcers (bilateral ischial pressure sores and sacral pressure sore). Anticipate increased metabolic demands from the chronic pressure sores. Will check a Prealbumin and encourage nutritional supplementation with protein to help the healing process. Patient has anemia of chronic disease. His admission Hgb was 8.4. Will start Iron supplementation. Recommend operative intervention with excision multiple pressure sores (bilateral ischial and sacral ulcers) along with partial ostectomy for osteomyelitis. Tissue and bone will be sent to Pathology for analysis to rule out carcinoma and to evaluate for osteomyelitis and to Microbiology for culture. A positive culture will necessitate antibiotic therapy. Will schedule under general anesthesia. Will schedule in next couple of days. Patient was informed of the risks and complications of the procedure including alternatives to surgery. These were discussed with the patient personally. Patient voices understanding and wishes to proceed. After discharge, followup [facility]. We discussed the current risks associated with COVID-19. While it is understood that there is a community spread of COVID-19, the risk of shelly COVID-19 while at [facility] ([facility]) is very low; however, the risk cannot be completely mitigated because of the community spread of the disease. We discussed in detail the risk of exposure to and/or potential harm posed by the COVID-19 virus with having a surgery/procedure at this time versus the risk of delaying the surgery/procedure. It is not possible to know either the risk of delaying the surgery or procedure or chance of getting an infection with perfect accuracy, but a joint decision was made to proceed at this time with the scheduled surgery/procedure as indicated on the consent form. Patient was notified that we will need to comply with any screening or testing WC wishes to perform or that surgery may be delayed for any positive results. Discussed with the patient that I was tested for COVID-19 on 09/12/19 which was negative and on 09/26/19 which was negative and on 10/10/19 which was negative and on 10/24/19 which was negative and on 11/07/19 which was negative and on 11/28/19 which was negative and on 12/19/19 which was negative and on 01/23/20 which was negative and on 02/13/20 which was negative and on 03/03/20 which was negative. My testing regimen at this time is to be COVID-19 tested every 2 weeks or so. I received the COVID-19 vaccine (Moderna) on 03/11/20 and the second vaccine dose was received on 04/08/20. Procedure Criteria Procedure Type: Elective COVID Risk Discussion: The surgeon/proceduralist and patient have discussed in detail the risk of exposure to and/or potential harm posed by the COVID-19 virus with having a surgery/procedure at this time versus the risk of delaying the surgery/procedure. It is not possible to know either the risk of delaying the surgery or procedure or chance of getting an infection with perfect accuracy, but a joint decision was made between the patient and the surgeon/proceduralist to proceed at this time with the scheduled surgery/procedure as indicated on the consent form. Inpatient E&M: 71211 Init Hosp L2 - ICD-10 - L89.154, L89.314, L89.324, M86.651, T66.xxxS, L59.8, Z86.14, A41.9, N39.0, D63.8, Z85.048
[2020-04-15 17:48] LABS: M R Staph aureus DNA By PCR POSITIVE (Negative); Probe Check PASS
--- NOTE | 2020-04-15 17:58 | CON.PCM_ITS ---
Problem List (1) Gangrene of toe of right foot Status: Chronic (2) Peripheral vascular disease Status: Chronic (3) Toe necrosis Status: Chronic (4) Ulcer of right foot with necrosis of bone Status: Chronic (5) Unstageable pressure ulcer of left heel Status: Chronic (6) Unstageable pressure ulcer of right heel Status: Chronic (7) Malnutrition Status: Suspected Reason for Consult Date of Consultation: 04/15/20 Reason for Consultation: Toe gangrene and heel ulcers History of Present Illness: The patient is a 65 year old M with multiple comorbidities including peripheral vascular disease, anxiety, history of anal rectal cancer treated with radiation, ischium deep wounds with delayed healing, history of MRSA, history of hepatitis C was seen bedside this evening for gangrenous changes to the first and second toes on the right foot and bilateral heel eschars. I seen him previously during prior hospital admissions for the same conditions. The patient relates the onset of the foot discoloration was a couple of months ago however per chart review it is noted he has had this much longer. He denies recent trauma, redness, or odor coming from the foot. He is also previously known to vascular specialist, Dr. Samuels. He had intervention performed. He was admitted for sepsis and it is noted he also has ulcers elsewhere. Past Medical History Past Medical History (Chronic Problems): Chronic Problems Microcytic anemia (Chronic) Ulcer of right groin with fat layer exposed (Chronic) Ulcer of right foot with necrosis of bone (Chronic) Sacral pressure ulcer (Chronic) Pressure ulcer, heel, right, unstageable (Chronic) Decubitus ulcer of left heel, stage 4 (Chronic) Pressure ulcer of toe of right foot (Chronic) Toe necrosis (Chronic) Gangrene of toe of right foot (Chronic) Osteomyelitis of toe of right foot (Chronic) Peripheral vascular disease (Chronic) Unstageable pressure ulcer of right heel (Chronic) Unstageable pressure ulcer of left heel (Chronic) Non-healing open wound of right groin (Chronic) Skin necrosis (Chronic) Pressure sore of left ischium, stage 4 (Chronic) Candidal skin infection (Chronic) 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) Infection and inflammatory reaction due to internal left knee prosthesis, initial encounter (Chronic) History of total left knee replacement (Chronic) Skin ulcer of left thigh with fat layer exposed (Chronic) Pressure ulcer of right buttock, stage 3 (Chronic) Skin ulcer of elbow with fat layer exposed (Chronic) Decubitus ulcer of left heel, stage 2 (Chronic) Debility (Chronic) Personal history of Methicillin resistant Staphylococcus aureus infection (Chronic) Acute osteomyelitis of right pelvic region (Chronic) History of anal cancer (Chronic) 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, 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) Anal cancer (Chronic) Hepatitis C carrier (Chronic) COPD (chronic obstructive pulmonary disease) (Chronic) Anxiety and depression (Chronic) HTN (hypertension) (Chronic) HLD (hyperlipidemia) (Chronic) GERD (gastroesophageal reflux disease) (Chronic) PAD (peripheral artery disease) (Chronic) Allergies chlorthalidone Allergy (Verified 04/15/20 10:46) Other famotidine Allergy (Verified 04/15/20 10:46) Unknown povidone-iodine [From Betadine] Allergy (Verified 04/15/20 10:46) Hives soap Adverse Reaction (Verified 04/15/20 10:46) Hives [id number] Reductase Inhibitor Adverse Reaction (Verified 04/15/20 10:46) MESSED MY LIVER UP adhesive tape Allergy (Uncoded 04/15/20 10:46) Itching/rash Home Medications: Ambulatory Orders Medication Instructions Recorded Fluticasone 0.05% [Flonase Nasal 1 spray NASAL DAILY 03/22/16 [place]] Multivitamin [Multiple Vitamins] 1 tab PO DAILY 03/22/16 buPROPion XL [Wellbutrin Xl] 300 mg PO QHS 03/22/16 Metoprolol Tartrate [Lopressor 25 mg PO BID 01/19/18 (beta curt)] Ferrous Gluconate 324 mg PO BID 08/22/18 Gabapentin [Neurontin] 600 mg PO TID 08/12/19 Oxycodone HCl [Oxycodone HCl ER] 10 mg PO Q6H PRN PRN 12/03/19 Cholecalciferol (Vitamin D3) 25 mcg PO DAILY 12/16/19 [Vitamin D3] Escitalopram Oxalate 10 mg PO DAILY 12/16/19 Ezetimibe [Zetia] 10 mg PO QHS 12/16/19 Acetaminophen 1,000 mg PO TID 04/15/20 Amlodipine [Norvasc] 5 mg PO DAILY 04/15/20 Argin/Glut/Cahmb/Collag/Mv-Min 1 ea PO DAILY 04/15/20 [Chuy Packet] Aspirin [Aspirin, Baby] 81 mg PO DAILY@0800 04/15/20 Docusate Sodium [Colace] 200 mg PO BID 04/15/20 Omeprazole 40 mg PO DAILY 04/15/20 Oxybutynin Chloride 5 mg PO BID 04/15/20 Oxycodone CR [Oxycontin] 20 mg PO Q12H 04/15/20 Polyethylene Glycol 3350 [Miralax] 17 gm PO DAILY 04/15/20 Tiotropium [place] [Spiriva 2 puff IH DAILY 04/15/20 Respimat] Tizanidine HCl [Zanaflex] 4 mg PO Q8H PRN 04/15/20 Surgical History: total hip arthroplasty - left, total knee arthroplasty, - - 12/30/16 Surgical preparation right gluteal/ischial area with excision radiation pressure sore abscess wound and partial ostectomy for osteomyelitis (52.5 cm2), 06/08/17 Excision radiation pressure sore abscess ulcer right ischial area, Stage IV, with partial ostectomy for osteomyelitis, 10/17/17 Excision radiation pressure sore abscess ulcer right ischial area, Stage IV, with partial ostectomy for osteomyelitis. Psychiatric History: No pertinent psych hx Smoking Status: Former smoker - *Family History Maternal History Items: - - Denies known maternal medical history including cardiac history. Paternal History Items: - - Denies known paternal medical history including cardiac history. Review of Systems Constitutional: Denies: Chills, Fever Cardiovascular: Denies: Chest Pain Respiratory: Denies: Cough, Shortness of Breath Gastrointestinal: Denies: Vomiting Musculoskeletal: Reports: Foot Pain Skin: Reports: Skin Changes, Wounds Patient Problems: Active and Suspected Problems Severe sepsis (Acute) Hyponatremia (Acute) Thrombocytosis (Acute) Lactic acidosis (Acute) Transaminitis (Acute) Malnutrition (Suspected) - Physical Exam Vitals/I&O's: Vital Signs Temp Pulse Resp BP Pulse Ox 99.4 F H 79 24 H 108/56 L 94 04/15/20 15:15 04/15/20 15:15 04/15/20 15:15 04/15/20 15:15 04/15/20 16:44 Oxygen Delivery Method Room Air Weight: 68.3 kg Body Mass Index (BMI) 23.6 Intake and Output for Last 24 Hours 04/13/20 04/14/20 04/15/20 23:59 23:59 23:59 Intake Total 750 / 750 Balance 750 / 750 General: Alert, Cooperative, Lethargic HEENT: Atraumatic Extremities: No cyanosis, No edema, No Calf Tenderness, Diminished Peripheral Pulses - Nonpalpable DP or PT pulses bilateral. Doppler exam performed with audible dorsalis pedis pulse bilateral and perforating peroneal bilateral. Monophasic/nonaudible PT bilateral, - - Delayed capillary fill time to all digits bilateral Skin: Ulcer/ Wound - Distal right hallux well adhered dry eschar. Dorsal second toe eschar with deep tissue exposure including bone that is dry. Bilateral posterior heel eschars that are also dry and well adhered., - - No erythema, purulence, streaking, bogginess or fluctuance, moisture, deep tissue exposure or infection bilateral foot. No interdigital maceration. His skin is hairless atrophic and dry the lower extremities Musculoskeletal: No Tenderness to Palpation of Joints or Extremities, Muscle Wasting, - - Significant muscle atrophy and weakness bilateral lower extremities with some dorsal contraction of the toes. Negative Pradeep and Goldstein signs bilateral Neurological: Sensory exam intact to light touch and pain Psych/Mental Status: Normal Affect, Appropriate Laboratory Results 04/15/20 10:45: WBC 12.5 H, RBC 3.65 L, Hgb 8.4 L, Hct 27.0 L, MCV 74.0 L, MCH 23.0 L, MCHC 31.1 L, RDW Std Deviation 44.2 H, RDW Coeff of Rosendo 16.3 H, Plt Count 650 H, MPV 7.7, Immature Gran % (Auto) 1.600 H, Neut % (Auto) 74.0 H, Lymph % (Auto) 10.0 L, [place] % (Auto) 13.9 H, Eos % (Auto) 0.3, Baso % (Auto) 0.2, Absolute Neuts (auto) 9.2 H, Absolute Lymphs (auto) 1.25, Nucleated RBC % 0, Differential Comment SCANNED, Diff Path Review May foll, Hypochromasia 3+, Microcytosis 2+, Target Cells 1+ 04/15/20 10:45: Sodium 119 L*, Potassium 5.4 H, Chloride 85 L, Carbon Dioxide 29.0, Anion Gap 5, BUN 20 H, Creatinine 0.64 L, Estim Creat Clear Calc 67.94, Est GFR (MDRD) Af Amer 162, Est GFR (MDRD) Non-Af 134, BUN/Creatinine Ratio 31.4 H, Glucose 104, Calcium 9.5, Total Bilirubin 0.30, AST 55 H, ALT 62 H, Alkaline Phosphatase 270 H, Total Protein 7.9, Albumin 2.3 L, Globulin 5.6 H, Albumin/Globulin Ratio 0.4 L 04/15/20 10:45: Lactic Acid 2.2 H* 04/15/20 11:08: Urine Color Yellow, Urine Clarity Cloudy, Urine pH 8.0, Ur Specific [place] 1.010, Urine Protein 30 H, Urine Glucose (UA) Normal, Urine Ketones Negative, Urine Occult Blood 150 H, Urine Nitrite Negative, Urine Bilirubin Negative, Urine Urobilinogen Normal, Ur Leukocyte Esterase 500 H, Urine RBC 10-25 SEEN, Urine WBC 25-50 SEEN, Ur Squamous Epith Cells 0-5 SEEN, Triple Phos Crystals 2+, Urine Bacteria 2+, Urine Mucus 0 SEEN 04/15/20 15:19: Lactic Acid 1.6 04/15/20 15:45: MRSA (PCR) POSITIVE H Current Medications Acetaminophen (Acetaminophen 325 Mg Tablet) 650 mg PO Q6H PRN PRN PRN Reason: Pain Score 1-10/Temp > 100.7 F Al Hydroxide/Mg Hydroxide (Mag Hydrox/Al Hydrox/Simeth 30 Ml Udc) 30 ml PO Q6H PRN PRN PRN Reason: Gastric Burning Albuterol Sulfate (Albuterol 2.5 Mg/3 Ml Vial.Neb.) 2.5 mg INHALATION Q2H PRN PRN PRN Reason: SOB/Wheezing Amlodipine Besylate (Amlodipine 5 Mg Tablet) 5 mg PO DAILY [facility]ARA Aspirin (Aspirin E.C. 81 Mg Tablet) 81 mg PO DAILY@0800 [facility] Bupropion HCl (Bupropion (Xl) 300 Mg Tablet.Xl) 300 mg PO QHS [facility] Diphenhydramine HCl (Diphenhydramine 25 Mg Capsule) 25 mg PO Q6H PRN PRN PRN Reason: ITCHING Docusate Sodium (Docusate Sodium 100 Mg Capsule) 200 mg PO BID [facility] Ezetimibe (Ezetimibe 10 Mg Tablet) 10 mg PO QHS [facility] Enoxaparin Sodium (Enoxaparin 40 Mg/0.4 Ml Syringe) 40 mg SC DAILY [facility] Escitalopram Oxalate (Escitalopram Oxalate 10 Mg Tablet) 10 mg PO DAILY [facility] Ferrous Gluconate (Ferrous Gluconate 324 Mg Tablet) 324 mg PO BIDCM [facility] Last Admin: 04/15/20 17:05 Dose: 324 mg Documented by: Fluticasone Propionate (Fluticasone 0.05% 1 [place] Nasal.Sry) 1 spray NASAL QHS [facility] Gabapentin (Gabapentin 600 Mg Tablet) 600 mg PO TID [facility] Last Admin: 04/15/20 17:05 Dose: 600 mg Documented by: Guaifenesin (Guaifenesin 10 Ml Udc (200mg/10ml)) 5 ml PO Q6H PRN PRN PRN Reason: COUGH Hydromorphone HCl (Hydromorphone 0.5 Mg/0.5 Ml Syringe) 0.5 mg IV Q4H PRN PRN PRN Reason: BREAKTHROUGH Pain Score 6-10 Vancomycin IV Pharmacy to Dose (1 ea/ Sodium Chloride) 500 mls @ 250 mls/hr IV PRN PRN; Protocol PRN Reason: Rx to Dose Piperacillin Sod/Tazobactam (Sod 3.375 gm/ Sodium Chloride) 50 mls @ 12.5 mls/hr IV Q8 [facility] Vancomycin HCl 750 mg/ Sodium (Chloride) 265 mls @ 250 mls/hr IV Q12H [facility] Ipratropium [place] (Ipratropium 0.5 Mg/2.5 Ml Solution) 0.5 mg INHALATION Q6HWA.RT [facility] Melatonin (Melatonin 3 Mg Tablet) 3 mg PO QHS PRN PRN PRN Reason: INSOMNIA Multivitamins ([facility]ivitamins,Therapeutic Tablet) [facility] Nutritional Formula (Nutritional Supplement (Chuy) Packet) 1 packet PO DAILY [facility] Nutritional Formula (Lactose Free) (Ensure Enlive 120 Ml Liquid) 120 ml PO 4X/DAY [facility] Last Admin: 04/15/20 17:05 Dose: Not Given Documented by: Ondansetron HCl (Ondansetron 4 Mg/2 Ml Vial) 4 mg IV Q8H PRN PRN PRN Reason: NAUSEA/VOMITING Oxybutynin Chloride (Oxybutynin 5 Mg Tablet) 5 mg PO BID [facility] Oxycodone HCl (Oxycodone Cr 20 Mg Tablet) 20 mg PO Q12 [facility] Oxycodone HCl (Oxycodone 5 Mg Tablet) 10 mg PO Q6H PRN PRN PRN Reason: Pain Score 6-10 Last Admin: 04/15/20 17:04 Dose: 10 mg Documented by: Pantoprazole Sodium (Pantoprazole Sodium 40 Mg Tablet) 40 mg PO DAILY [facility] Polyethylene Glycol (Polyethylene Glycol 3350 17 Gm Packet) 17 gm PO DAILY [facility] Senna/Docusate Sodium (Senna/Docusate Sodium 1 Tablet) 2 tablet PO BID PRN PRN Reason: Constipation Sodium Chloride (0.9% Saline Lock 10 Ml Syringe) 10 - 40 ml IV UD PRN PRN Reason: SALINE FLUSH Sodium Hypochlorite (Dakin's Venessa Half Strength (=0.25%)) 1 applic TOPICAL BID DHARA; Protocol Tizanidine HCl (Tizanidine Hcl 2 Mg Tablet) 4 mg PO Q8H PRN PRN PRN Reason: SPASMS Assessment/Plan All Active Problems Severe sepsis (Acute) Hyponatremia (Acute) Thrombocytosis (Acute) Lactic acidosis (Acute) Transaminitis (Acute) Abscess of right groin (Resolved) Hyponatremia (Resolved) MRSA bacteremia (Resolved) Right second toe gangrenous changes with exposed phalanx consistent with osteomyelitis /bone with necrotic bone (previously treated, stable) Right hallux gangrenous changes, stable and no infection Bilateral heel unstageable ulcer, no infection and stable Peripheral vascular disease, chronic Malnutrition suspected Ischial and sacral pressure ulcers with prior treated osteomyelitis Other comorbidities I reviewed and discussed his case. His vital signs remained stable. He has leukocytosis with a white blood cell count of 12.5. Upon admission his lactic acid is 2.2 and he is meeting sepsis criteria. Blood cultures are pending. He also had a urine culture obtained. He is on vancomycin and Zosyn at this time. He does not appear to have an acute foot infection. I do not recommend culture to the foot at his very dry stable eschar sites. He does not appear to have wet gangrene, cellulitis, or purulence. His prior vascular work up and intervention is noted. On 12/04/2019, he had a balloon angioplasty of the right mid popliteal through the entire SFA and common femoral artery with balloon with Dr. Samuels. I will review the case with him to confirm healing potential. However his foot looks very similar in appearance to when I clinically evaluated him prior to his surgery. He does not appear to have progressive worsening. I recommend palliative care approach for his feet at this time. I do not suspect this is a source of acute infection at this time. I recommend proceeding with urgent toe amputation if this turns into a wet progressive or purulence presentation. Dry dressings were applied in a well padded manner. I will continue to follow closely while in house. Thank you for the consultation. Please do not hesitate to call if you have any questions. Naomi Palomares DPM, [facility] [phone]
[2020-04-15] MEDS: Ipratropium 0.5 MG/2.5 ML SOLUTION INHALATION (19:17)
[2020-04-15] MEDS: Fluticasone 0.05% 1 SPRAY NASAL.SRY NASAL (21:37)
[2020-04-15] MEDS: Docusate Sodium 100 MG Capsule 200 MG PO (21:37)
[2020-04-15] MEDS: Oxybutynin 5 MG Tablet PO (21:37)
[2020-04-15] MEDS: Ezetimibe 10 MG Tablet PO (21:38)
[2020-04-15] MEDS: buPROPion (XL) 300 MG TABLET.XL PO (21:38)
[2020-04-15] MEDS: Acetaminophen 325 MG Tablet 650 MG PO (23:22)
[2020-04-16] VITALS (14 sets, daily range): BP systolic 91–126; BP diastolic 41–72; PULSE 81–103; RESP 16–19; TEMP 36.5–37.7; O2SAT 90–100
[2020-04-16] MEDS: oxyCODONE 5 MG Tablet 10 MG PO ×4 (01:35→23:55)
[2020-04-16] MEDS: 0.9% Saline Lock 10 ML Syringe IV ×4 (02:21→22:28)
[2020-04-16] MEDS: HYDROmorphone 0.5 MG/0.5 ML SYRINGE IV ×3 (02:27→22:28)
[2020-04-16] MEDS: Gabapentin 600 MG Tablet PO ×3 (05:51→21:29)
[2020-04-16] MEDS: Acetaminophen 325 MG Tablet 650 MG PO (05:53)
[2020-04-16 06:01] LABS: Absolute Lymphocyte Count 1.45 X10^3/uL (0.83-4.51); Absolute Neutrophil Count 9.1 X10^3/uL (2.0-7.7); Basophil# 0.03 X10^3/uL; Basophil% 0.2 % (0-1); Eosinophil# 0.11 X10^3/uL; Eosinophils% 0.9 % (0-5); Hematocrit 22.5 % (40-54); Hemoglobin 6.8 g/dL (13.0-16.5); Lymphocyte # 1.45 X10^3/ul (4.0); Lymphocyte % 11.3 % (19-41); Mean Corp Hgb Conc 30.2 g/dL (32-36); Mean Corpuscular Hgb 22.9 pg (27.0-32.0); Mean Corpuscular Volume 75.8 fL (80-94); Mean Platelet Vol. 7.6 fl (6.2-12.0); Monocyte# 1.91 X10^3/uL; Monocyte% 14.9 % (0-10); NRBC Flagged by Analyzer 0 % (0-5); Neutrophil # 9.09 X10^3/uL (2.7-7.7); Neutrophil % 71.1 % (47-70); POSITIVE DIFFERENTIAL YES; Platelet Count 498 K/mm3 (150-450); RBC Distribution Width CV 16.4 % (11.6-14.6); RBC Distribution Width SD 45.2 fl (35.1-43.9); Red Blood Count 2.97 M/mm3 (4.6-6.2); White Blood Count 12.8 K/mm3 (4.4-11.0)
[2020-04-16 06:18] LABS: Differential Indicated SCAN CRITERIA MET
[2020-04-16 06:29] LABS: ALB/GLOB Ratio 0.4 RATIO (0.9-2.4); AST(SGOT) 43 U/L (15-37); Alanine Aminotransfer ALT/SGPT 51 U/L (16-61); Albumin, Serum 1.9 g/dL (3.2-5.0); Alkaline Phosphatase 216 U/L (45-117); Anion Gap 4 (5-15); BUN 11 mg/dL (7-18); BUN/Creat Ratio 26.8 RATIO (10-20); Calcium,Total 8.3 mg/dL (8.5-10.1); Chloride 93 mmol/L (98-107); Creatinine, Serum 0.41 mg/dL (0.70-1.30); EST Glomerular Filtration Rate 222 mL/min (>60); Est Glom Filt Rate - Afr Amer 268 mL/min (>60); Estimated Creatinine Clearance 67.94 ml/min; Globulin 4.5 g/dL (2.2-4.2); Glucose 80 mg/dL (74-106); Magnesium 1.9 mg/dL (1.6-2.6); Phosphorus 3.7 mg/dL (2.5-4.9); Potassium 4.4 mmol/L (3.5-5.1); Protein, Total 6.4 g/dL (6.4-8.2); Sodium Level 124 mmol/L (136-145)
[2020-04-16 06:46] LABS: Differential Comment SCANNED; Hypochromasia 2+
[2020-04-16 06:47] LABS: Microcytosis 2+
[2020-04-16] MEDS: Ipratropium 0.5 MG/2.5 ML SOLUTION INHALATION ×3 (07:13→18:54)
--- NOTE | 2020-04-16 08:51 | NURSING ---
wound photo: right foot
--- NOTE | 2020-04-16 08:51 | NURSING ---
wound photo: bilateral heels
--- NOTE | 2020-04-16 08:52 | NURSING ---
wound photo: bilateral ischium/sacrum
--- NOTE | 2020-04-16 09:14 | ECHOD_ITS ---
Reason For Study: MURMUR Procedure This was a 2D Doppler, Color Flow transthoracic echocardiogram. The study was technically difficult. PT scanned in supine position due to multiple ulcers. Exam performed portable in patient room. Left Ventricle Normal left ventricle. Left ventricular systolic function is normal. The 3D full volume ejection fraction is 55-60 %. Right Ventricle Normal RV size. Normal systolic function. Atria Normal left atrium. Normal right atrium. Normal atrial septum. Mitral Valve The mitral valve is structurally normal. No prolapse or stenosis seen. No mitral valve insufficiency. Tricuspid Valve Normal tricuspid valve. No tricuspid valve insufficiency. Aortic Valve Aortic sclerosis, no stenosis. Pulmonic Valve The pulmonic valve is not well visualized. Pericardium/Pleural No pericardial effusion. MMode/2D Measurements & Calculations LVIDd: 4.2 cm IVSd: 1.0 cm Ao root diam: 3.0 cm LVIDs: 2.8 cm LVPWd: 1.2 cm RVDd: 3.1 cm FS: 33.2 % LAV(MOD-bp): 58.8 ml LA A4 area: 20.9 cm2 LA dimension(2D): 3.2 cm LAV(MOD-bp) Indexed: 32.8 ml/m2 LAV(MOD-sp2): 59.0 ml LAV(MOD-sp4): 59.0 ml RA A4 area: 13.8 cm2 Time Measurements MV dec time: 0.19 sec Doppler Measurements & Calculations MV E max chas: 96.9 cm/sec Lat Peak E' Chas: 15.4 cm/sec Med Peak E' Chas: 7.4 cm/sec MV A max chas: 82.3 cm/sec E/E' lat: 6.3 E/E' med: 13.1 MV E/A: 1.2 Ao V2 max: 184.2 cm/sec LV V1 max: 138.3 cm/sec PA V2 max: 134.7 cm/sec Ao max P.6 mmHg LV V1 max P.7 mmHg Interpretation Summary The 3D full volume ejection fraction is 55-60 %. Aortic sclerosis, no stenosis. Ordering Physician: Javier Escamilla Referring Physician: Olga Garduno Performed By: Dianelys Tamez, HEMANTH, RVT
[2020-04-16] MEDS: Escitalopram Oxalate 10 MG Tablet PO (09:17)
[2020-04-16] MEDS: Docusate Sodium 100 MG Capsule 200 MG PO ×2 (09:17→21:29)
[2020-04-16] MEDS: Multivitamins,Therapeutic Tablet 1 TABLET PO (09:17)
[2020-04-16] MEDS: Aspirin E.C. 81 MG Tablet PO (09:17)
[2020-04-16] MEDS: Oxybutynin 5 MG Tablet PO ×2 (09:17→21:29)
[2020-04-16] MEDS: Ferrous Gluconate 324 MG Tablet PO ×2 (09:17→17:18)
[2020-04-16] MEDS: Pantoprazole Sodium 40 MG Tablet PO (09:17)
[2020-04-16] MEDS: DAKIN'S SOL HALF STRENGTH (=0.25%) 1 APPLIC TOPICAL ×2 (09:18→23:21)
[2020-04-16] MEDS: Polyethylene Glycol 3350 17 GM PACKET PO (09:18)
--- NOTE | 2020-04-16 09:18 | NURSING ---
removed colostomy appliance. there was a moderate amount of thick reyes stool noted in the appliance. stoma measures approx 7/8 and sits at skin level. peristomal skin is intact. cleansed skin with warm water. pat dry. applied a new 2 piece [place] appliance. pt tolerated well.
--- NOTE | 2020-04-16 09:19 | NURSING ---
Low air loss bed ordered for patient.
[2020-04-16] MEDS: Enoxaparin 40 MG/0.4 ML Syringe SC (09:20)
--- NOTE | 2020-04-16 09:31 | CASEMGMT ---
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 Tala states they will need COVID test within 24 hours of discharge. Tala states pt was due to receive 2nd dose of COVID vaccination on Monday next week and is not sure if pt will still be at [facility] by then and questioned how pt will be able to get the 2nd dose. Tala also states pt is not on Palliative Care at [facility], [place]. Original Note: Social Work Note SHAHANA placed a call to Tala at [facility] and left message regarding pt's admission. SHAHANA faxed updated clinicals. Caroline Og EXECUTIVE OFFICE MANAGER, [employer]
--- NOTE | 2020-04-16 09:43 | PCM.HP.ID ---
Problem List (1) Severe sepsis Status: Acute Reason for Consult: bacteremia Consulted by: Dr. Rae History of Present Illness: The patient is a 65 year old M F resident with chronic ulcers, ostomy, presented yesterday with several months of worsening wounds, several days of not feeling well. No new joint or back pain. Has pain over sacrum. No fever or chills, some cough, some n/v. Came to ED, fever to 103, admitted on vanc/zosyn. Full ROS performed and neg except as noted above. - Medical History Past Medical History (Chronic Problems): Chronic Problems Microcytic anemia (Chronic) Ulcer of right groin with fat layer exposed (Chronic) Ulcer of right foot with necrosis of bone (Chronic) Sacral pressure ulcer (Chronic) Pressure ulcer, heel, right, unstageable (Chronic) Decubitus ulcer of left heel, stage 4 (Chronic) Pressure ulcer of toe of right foot (Chronic) Toe necrosis (Chronic) Gangrene of toe of right foot (Chronic) Osteomyelitis of toe of right foot (Chronic) Peripheral vascular disease (Chronic) Unstageable pressure ulcer of right heel (Chronic) Unstageable pressure ulcer of left heel (Chronic) Non-healing open wound of right groin (Chronic) Skin necrosis (Chronic) Pressure sore of left ischium, stage 4 (Chronic) Candidal skin infection (Chronic) 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) Infection and inflammatory reaction due to internal left knee prosthesis, initial encounter (Chronic) History of total left knee replacement (Chronic) Skin ulcer of left thigh with fat layer exposed (Chronic) Pressure ulcer of right buttock, stage 3 (Chronic) Skin ulcer of elbow with fat layer exposed (Chronic) Decubitus ulcer of left heel, stage 2 (Chronic) Debility (Chronic) Personal history of Methicillin resistant Staphylococcus aureus infection (Chronic) Acute osteomyelitis of right pelvic region (Chronic) History of anal cancer (Chronic) 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, 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) Anal cancer (Chronic) Hepatitis C carrier (Chronic) COPD (chronic obstructive pulmonary disease) (Chronic) Anxiety and depression (Chronic) HTN (hypertension) (Chronic) HLD (hyperlipidemia) (Chronic) GERD (gastroesophageal reflux disease) (Chronic) PAD (peripheral artery disease) (Chronic) Allergies/Adverse Reactions: Allergies chlorthalidone Allergy (Verified 04/15/20 10:46) Other famotidine Allergy (Verified 04/15/20 10:46) Unknown povidone-iodine [From Betadine] Allergy (Verified 04/15/20 10:46) Hives soap Adverse Reaction (Verified 04/15/20 10:46) Hives Jisptpc-Nvl-Bvh Reductase Inhibitor Adverse Reaction (Verified 04/15/20 10:46) MESSED MY LIVER UP adhesive tape Allergy (Uncoded 04/15/20 10:46) Itching/rash Home Medications: Ambulatory Orders Medication Instructions Recorded Fluticasone 0.05% [Flonase Nasal 1 spray NASAL DAILY 03/22/16 [place]] Multivitamin [Multiple Vitamins] 1 tab PO DAILY 03/22/16 buPROPion XL [Wellbutrin Xl] 300 mg PO QHS 03/22/16 Metoprolol Tartrate [Lopressor 25 mg PO BID 01/19/18 (beta curt)] Ferrous Gluconate 324 mg PO BID 08/22/18 Gabapentin [Neurontin] 600 mg PO TID 08/12/19 Oxycodone HCl [Oxycodone HCl ER] 10 mg PO Q6H PRN PRN 12/03/19 Cholecalciferol (Vitamin D3) 25 mcg PO DAILY 12/16/19 [Vitamin D3] Escitalopram Oxalate 10 mg PO DAILY 12/16/19 Ezetimibe [Zetia] 10 mg PO QHS 12/16/19 Acetaminophen 1,000 mg PO TID 04/15/20 Amlodipine [Norvasc] 5 mg PO DAILY 04/15/20 Argin/Glut/Cahmb/Collag/Mv-Min 1 ea PO DAILY 04/15/20 [[place]uy Packet] Aspirin [Aspirin, Baby] 81 mg PO DAILY@0800 04/15/20 Docusate Sodium [Colace] 200 mg PO BID 04/15/20 Omeprazole 40 mg PO DAILY 04/15/20 Oxybutynin Chloride 5 mg PO BID 04/15/20 Oxycodone CR [Oxycontin] 20 mg PO Q12H 04/15/20 Polyethylene Glycol 3350 [Miralax] 17 gm PO DAILY 04/15/20 Tiotropium [place] [Spiriva 2 puff IH DAILY 04/15/20 Respimat] Tizanidine HCl [Zanaflex] 4 mg PO Q8H PRN 04/15/20 - Social History SMOKING STATUS:: Former smoker Vital Signs Temp Pulse Resp BP Pulse Ox 97.8 F 85 18 92/41 L 100 04/16/20 09:25 04/16/20 09:25 04/16/20 09:25 04/16/20 09:25 04/16/20 09:25 Oxygen Flow Rate (L/min) 2 Oxygen Delivery Method Nasal Cannula Weight: 68.719 kg Body Mass Index (BMI) 23.6 Microbiology Past 72 Hours 04/15/20 10:45 Blood Culture - Preliminary Blood Culture (Wb) - Left Hand 04/15/20 10:45 Blood Culture - Preliminary Blood Culture (Wb) - Left Forearm Laboratory Tests Past 24 Hrs 04/15/20 04/15/20 04/15/20 10:45 10:45 10:45 WBC 12.5 H RBC 3.65 L Hgb 8.4 L Hct 27.0 L MCV 74.0 L MCH 23.0 L MCHC 31.1 L RDW Std Deviation 44.2 H RDW Coeff of [place] 16.3 H Plt Count 650 H MPV 7.7 Immature Gran % (Auto) 1.600 H Neut % (Auto) 74.0 H Lymph % (Auto) 10.0 L [place] % (Auto) 13.9 H Eos % (Auto) 0.3 Baso % (Auto) 0.2 Absolute Neuts (auto) 9.2 H Absolute Lymphs (auto) 1.25 Nucleated RBC % 0 Differential Comment SCANNED Diff Path Review May foll Hypochromasia 3+ Microcytosis 2+ Target Cells 1+ Sodium 119 L* Potassium 5.4 H Chloride 85 L Carbon Dioxide 29.0 Anion Gap 5 BUN 20 H Creatinine 0.64 L Estim Creat Clear Calc 67.94 Est GFR (MDRD) Af Amer 162 Est GFR (MDRD) Non-Af 134 BUN/Creatinine Ratio 31.4 H Glucose 104 Lactic Acid 2.2 H* Calcium 9.5 Phosphorus Magnesium Total Bilirubin 0.30 AST 55 H ALT 62 H Alkaline Phosphatase 270 H Total Protein 7.9 Albumin 2.3 L Globulin 5.6 H Albumin/Globulin Ratio 0.4 L Urine Color Urine Clarity Urine pH Ur Specific [place] Urine Protein Urine Glucose (UA) Urine Ketones Urine Occult Blood Urine Nitrite Urine Bilirubin Urine Urobilinogen Ur Leukocyte Esterase Urine RBC Urine WBC Ur Squamous Epith Cells Triple Phos Crystals Urine Bacteria Urine Mucus MRSA (PCR) Blood Type Antibody Screen Crossmatch 04/15/20 04/15/20 04/15/20 11:08 15:19 15:45 WBC RBC Hgb Hct MCV MCH MCHC RDW Std Deviation RDW Coeff of [place] Plt Count MPV Immature Gran % (Auto) Neut % (Auto) Lymph % (Auto) [place] % (Auto) Eos % (Auto) Baso % (Auto) Absolute Neuts (auto) Absolute Lymphs (auto) Nucleated RBC % Differential Comment Diff Path Review Hypochromasia Microcytosis Target Cells Sodium Potassium Chloride Carbon Dioxide Anion Gap BUN Creatinine Estim Creat Clear Calc Est GFR (MDRD) Af Amer Est GFR (MDRD) Non-Af BUN/Creatinine Ratio Glucose Lactic Acid 1.6 Calcium Phosphorus Magnesium Total Bilirubin AST ALT Alkaline Phosphatase Total Protein Albumin Globulin Albumin/Globulin Ratio Urine Color Yellow Urine Clarity Cloudy Urine pH 8.0 Ur Specific [place] 1.010 Urine Protein 30 H Urine Glucose (UA) Normal Urine Ketones Negative Urine Occult Blood 150 H Urine Nitrite Negative Urine Bilirubin Negative Urine Urobilinogen Normal Ur Leukocyte Esterase 500 H Urine RBC 10-25 SEEN Urine WBC 25-50 SEEN Ur Squamous Epith Cells 0-5 SEEN Triple Phos Crystals 2+ Urine Bacteria 2+ Urine Mucus 0 SEEN MRSA (PCR) POSITIVE H Blood Type Antibody Screen Crossmatch 04/16/20 04/16/20 04/16/20 05:15 05:15 07:36 WBC 12.8 H RBC 2.97 L Hgb 6.8 L Hct 22.5 L MCV 75.8 L MCH 22.9 L MCHC 30.2 L RDW Std Deviation 45.2 H RDW Coeff of [place] 16.4 H Plt Count 498 H MPV 7.6 Immature Gran % (Auto) 1.600 H Neut % (Auto) 71.1 H Lymph % (Auto) 11.3 L [place] % (Auto) 14.9 H Eos % (Auto) 0.9 Baso % (Auto) 0.2 Absolute Neuts (auto) 9.1 H Absolute Lymphs (auto) 1.45 Nucleated RBC % 0 Differential Comment SCANNED Diff Path Review May foll Hypochromasia 2+ Microcytosis 2+ Target Cells Sodium 124 L Potassium 4.4 Chloride 93 L Carbon Dioxide 27.0 Anion Gap 4 L BUN 11 Creatinine 0.41 L Estim Creat Clear Calc 67.94 Est GFR (MDRD) Af Amer 268 Est GFR (MDRD) Non-Af 222 BUN/Creatinine Ratio 26.8 H Glucose 80 Lactic Acid Calcium 8.3 L Phosphorus 3.7 Magnesium 1.9 Total Bilirubin 0.30 AST 43 H ALT 51 Alkaline Phosphatase 216 H Total Protein 6.4 Albumin 1.9 L Globulin 4.5 H Albumin/Globulin Ratio 0.4 L Urine Color Urine Clarity Urine pH Ur Specific [place] Urine Protein Urine Glucose (UA) Urine Ketones Urine Occult Blood Urine Nitrite Urine Bilirubin Urine Urobilinogen Ur Leukocyte Esterase Urine RBC Urine WBC Ur Squamous Epith Cells Triple Phos Crystals Urine Bacteria Urine Mucus MRSA (PCR) Blood Type O POSITIVE Antibody Screen NEGATIVE Crossmatch 04/16/20 07:36 WBC RBC Hgb Hct MCV MCH MCHC RDW Std Deviation RDW Coeff of [place] Plt Count MPV Immature Gran % (Auto) Neut % (Auto) Lymph % (Auto) [place] % (Auto) Eos % (Auto) Baso % (Auto) Absolute Neuts (auto) Absolute Lymphs (auto) Nucleated RBC % Differential Comment Diff Path Review Hypochromasia Microcytosis Target Cells Sodium Potassium Chloride Carbon Dioxide Anion Gap BUN Creatinine Estim Creat Clear Calc Est GFR (MDRD) Af Amer Est GFR (MDRD) Non-Af BUN/Creatinine Ratio Glucose Lactic Acid Calcium Phosphorus Magnesium Total Bilirubin AST ALT Alkaline Phosphatase Total Protein Albumin Globulin Albumin/Globulin Ratio Urine Color Urine Clarity Urine pH Ur Specific [place] Urine Protein Urine Glucose (UA) Urine Ketones Urine Occult Blood Urine Nitrite Urine Bilirubin Urine Urobilinogen Ur Leukocyte Esterase Urine RBC Urine WBC Ur Squamous Epith Cells Triple Phos Crystals Urine Bacteria Urine Mucus MRSA (PCR) Blood Type Antibody Screen Crossmatch See Detail - Other Studies Radiology: [] reviewed Other Studies: [] Route of nutrition/ use of supplements: [] Nutritional Intake: [] IV Site: [] Walker Catheter: [] - Physical Exam General: Alert, Cooperative, No apparent distress HEENT: Atraumatic, PERRLA, EOMI Neck: Supple, No Nodes Lungs: Clear to auscultation, Normal air movement Cardiovascular: Regular rate, Regular Rhythm, Murmur - soft systolic Abdomen: Soft, Non Tender, Non-Distended, - - ostomy in place Extremities: No edema Skin: Ulcer/ Wound - reviewed photos of sacrum and feet, - - no splinter hemorrhages on fingers IV Site: Peripheral, without redness Musculoskeletal: No Tenderness to Palpation of Joints or Extremities Neurological: Cranial nerves II-XII grossly intact - Assessment/Plan Antibiotics: [] Assessment/Plan: [] Active and Suspected Problems Severe sepsis (Acute) Hyponatremia (Acute) Thrombocytosis (Acute) Lactic acidosis (Acute) Transaminitis (Acute) Malnutrition (Suspected) severe sepsis with staph-like bacteremia likely due to infected ulcers on sacrum and heels - seen by podiatry and plastics. Debridement planned. Cont empiric vanc/zosyn. Will repeat bcx and check TTE. Will follow, thank you
--- NOTE | 2020-04-16 09:45 | PN_ITS ---
Patient Problems: Active and Suspected Problems Severe sepsis (Acute) Hyponatremia (Acute) Thrombocytosis (Acute) Lactic acidosis (Acute) Transaminitis (Acute) Malnutrition (Suspected) Subjective: Patient reports that he still not feeling great, however he appears as if he feels better today overall. He is more interactive. He currently denies any specific issues. We reviewed the surgical plan from Dr. [place]. The plan for his foot and the fact that he has bacteremia and the infectious disease physician would be rounding on him today. Vitals/I&O's: Vital Signs Temp Pulse Resp BP Pulse Ox 97.8 F 85 18 92/41 L 100 04/16/20 09:25 04/16/20 09:25 04/16/20 09:25 04/16/20 09:25 04/16/20 09:25 Oxygen Flow Rate (L/min) 2 Oxygen Delivery Method Nasal Cannula Weight: 68.719 kg Body Mass Index (BMI) 23.6 Intake and Output for Last 24 Hours 04/14/20 04/15/20 04/16/20 23:59 23:59 23:59 Intake Total 4865 / 4865 550 / 550 Output Total 3525 / 3525 1000 / 1000 Balance 1340 / 1340 -450 / -450 General: Alert, Oriented x3, Cooperative, No apparent distress, Well developed, Well nourished, - - Older white male sitting up in bed eating breakfast and watching television, appears much older than stated age, nontoxic appearing HEENT: Atraumatic, PERRLA, EOMI, Normocephalic, EAC Clear Oral: Moist Mucosa, No Gingival or Mucosal Lesions/ Ulcerations Neck: Supple, No JVD, Negative Carotid Bruits, Negative Hepatojugular Reflux, No Nodes, Trachea Midline, Thyroid Normal Size and Texture Lungs: Clear to auscultation, No rhonchi, No wheeze, No rales, Diminished Cardiovascular: Regular rate, Regular Rhythm, Normal S1, Normal S2, No murmurs, No Ectopic Activity, No rub noted, No Gallop Abdomen: Bowel Sounds Present, Soft, Non Tender, Non-Distended, - - Ostomy in place with good output Extremities: No clubbing, No cyanosis, No edema, Cool, Diminished Peripheral Pulses, - - Minutes cap refill Skin: No rashes, Ulcer/ Wound - Bilateral lower extremity dry gangrene left greater than right, stage IV bilateral buttock and sacral decub Musculoskeletal: Arthritic Changes, Muscle Wasting - Lateral lower extremities significant muscle wasting Lymphatic: No Cervical, Supraclavicular, or Inguinal Adenopathy Neurological: Cranial nerves II-XII grossly intact, Neuro grossly intact, Muscle tone normal, Coordination normal Psych/Mental Status: Appropriate, Flat Affect Microbiology Past 72 Hours 04/15/20 10:45 Blood Culture (Wb) - Left Hand Blood Culture - Preliminary 04/15/20 10:45 Blood Culture (Wb) - Left Forearm Blood Culture - Preliminary Laboratory Results 04/15/20 10:45: WBC 12.5 H, RBC 3.65 L, Hgb 8.4 L, Hct 27.0 L, MCV 74.0 L, MCH 23.0 L, MCHC 31.1 L, RDW Std Deviation 44.2 H, RDW Coeff of Ros[place] 16.3 H, Plt Count 650 H, MPV 7.7, Immature Gran % (Auto) 1.600 H, Neut % (Auto) 74.0 H, Lymph % (Auto) 10.0 L, [place] % (Auto) 13.9 H, Eos % (Auto) 0.3, Baso % (Auto) 0.2, Absolute Neuts (auto) 9.2 H, Absolute Lymphs (auto) 1.25, Nucleated RBC % 0, Differential Comment SCANNED, Diff Path Review May foll, Hypochromasia 3+, Microcytosis 2+, Target Cells 1+ 04/15/20 10:45: Sodium 119 L*, Potassium 5.4 H, Chloride 85 L, Carbon Dioxide 29.0, Anion Gap 5, BUN 20 H, Creatinine 0.64 L, Estim Creat Clear Calc 67.94, Est GFR (MDRD) Af Amer 162, Est GFR (MDRD) Non-Af 134, BUN/Creatinine Ratio 31.4 H, Glucose 104, Calcium 9.5, Total Bilirubin 0.30, AST 55 H, ALT 62 H, Alkaline Phosphatase 270 H, Total Protein 7.9, Albumin 2.3 L, Globulin 5.6 H, Albumin/Globulin Ratio 0.4 L 04/15/20 10:45: Lactic Acid 2.2 H* 04/15/20 11:08: Urine Color Yellow, Urine Clarity Cloudy, Urine pH 8.0, Ur Specific [place] 1.010, Urine Protein 30 H, Urine Glucose (UA) Normal, Urine Ketones Negative, Urine Occult Blood 150 H, Urine Nitrite Negative, Urine Bilirubin Negative, Urine Urobilinogen Normal, Ur Leukocyte Esterase 500 H, Urine RBC 10-25 SEEN, Urine WBC 25-50 SEEN, Ur Squamous Epith Cells 0-5 SEEN, Triple Phos Crystals 2+, Urine Bacteria 2+, Urine Mucus 0 SEEN 04/15/20 15:19: Lactic Acid 1.6 04/15/20 15:45: MRSA (PCR) POSITIVE H 04/16/20 05:15: WBC 12.8 H, RBC 2.97 L, Hgb 6.8 L, Hct 22.5 L, MCV 75.8 L, MCH 22.9 L, MCHC 30.2 L, RDW Std Deviation 45.2 H, RDW Coeff of [place] 16.4 H, Plt Count 498 H, MPV 7.6, Immature Gran % (Auto) 1.600 H, Neut % (Auto) 71.1 H, Lymph % (Auto) 11.3 L, [place] % (Auto) 14.9 H, Eos % (Auto) 0.9, Baso % (Auto) 0.2, Absolute Neuts (auto) 9.1 H, Absolute Lymphs (auto) 1.45, Nucleated RBC % 0, Differential Comment SCANNED, Diff Path Review May foll, Hypochromasia 2+, Microcytosis 2+ 04/16/20 05:15: Sodium 124 L, Potassium 4.4, Chloride 93 L, Carbon Dioxide 27.0, Anion Gap 4 L, BUN 11, Creatinine 0.41 L, Estim Creat Clear Calc 67.94, Est GFR (MDRD) Af Amer 268, Est GFR (MDRD) Non-Af 222, BUN/Creatinine Ratio 26.8 H, Glucose 80, Calcium 8.3 L, Phosphorus 3.7, Magnesium 1.9, Total Bilirubin 0.30, AST 43 H, ALT 51, Alkaline Phosphatase 216 H, Total Protein 6.4, Albumin 1.9 L, Globulin 4.5 H, Albumin/Globulin Ratio 0.4 L 04/16/20 07:36: Blood Type O POSITIVE, Antibody Screen NEGATIVE 04/16/20 07:36: Crossmatch See Detail Current Medications Acetaminophen (Acetaminophen 325 Mg Tablet) 650 mg PO Q6H PRN PRN PRN Reason: Pain Score 1-10/Temp > 100.7 F Last Admin: 04/16/20 05:53 Dose: 650 mg Documented by: Al Hydroxide/Mg Hydroxide (Mag Hydrox/Al Hydrox/Simeth 30 Ml Udc) 30 ml PO Q6H PRN PRN PRN Reason: Gastric Burning Albuterol Sulfate (Albuterol 2.5 Mg/3 Ml Vial.Neb.) 2.5 mg INHALATION Q2H PRN PRN PRN Reason: SOB/Wheezing Amlodipine Besylate (Amlodipine 5 Mg Tablet) 5 mg PO DAILY [facility] Last Admin: 04/16/20 09:35 Dose: Not Given Documented by: Aspirin (Aspirin E.C. 81 Mg Tablet) 81 mg PO DAILY@0800 [facility] Last Admin: 04/16/20 09:17 Dose: 81 mg Documented by: Bupropion HCl (Bupropion (Xl) 300 Mg Tablet.Xl) 300 mg PO QHS [facility] Last Admin: 04/15/20 21:38 Dose: 300 mg Documented by: Diphenhydramine HCl (Diphenhydramine 25 Mg Capsule) 25 mg PO Q6H PRN PRN PRN Reason: ITCHING Docusate Sodium (Docusate Sodium 100 Mg Capsule) 200 mg PO BID [facility] Last Admin: 04/16/20 09:17 Dose: 200 mg Documented by: Ezetimibe (Ezetimibe 10 Mg Tablet) 10 mg PO QHS [facility] Last Admin: 04/15/20 21:38 Dose: 10 mg Documented by: Enoxaparin Sodium (Enoxaparin 40 Mg/0.4 Ml Syringe) 40 mg SC DAILY [facility] Last Admin: 04/16/20 09:20 Dose: 40 mg Documented by: Escitalopram Oxalate (Escitalopram Oxalate 10 Mg Tablet) 10 mg PO DAILY [facility] Last Admin: 04/16/20 09:17 Dose: 10 mg Documented by: Ferrous Gluconate (Ferrous Gluconate 324 Mg Tablet) 324 mg PO BIDCM [facility] Last Admin: 04/16/20 09:17 Dose: 324 mg Documented by: Fluticasone Propionate (Fluticasone 0.05% 1 [place] Nasal.Sry) 1 spray NASAL QHS [facility] Last Admin: 04/15/20 21:37 Dose: 1 spray Documented by: Gabapentin (Gabapentin 600 Mg Tablet) 600 mg PO TID [facility] Last Admin: 04/16/20 05:51 Dose: 600 mg Documented by: Guaifenesin (Guaifenesin 10 Ml Udc (200mg/10ml)) 5 ml PO Q6H PRN PRN PRN Reason: COUGH Hydromorphone HCl (Hydromorphone 0.5 Mg/0.5 Ml Syringe) 0.5 mg IV Q4H PRN PRN PRN Reason: BREAKTHROUGH Pain Score 6-10 Last Admin: 04/16/20 02:27 Dose: 0.5 mg Documented by: Vancomycin IV Pharmacy to Dose (1 ea/ Sodium Chloride) 500 mls @ 250 mls/hr IV PRN PRN; Protocol PRN Reason: Rx to Dose Piperacillin Sod/Tazobactam (Sod 3.375 gm/ Sodium Chloride) 50 mls @ 12.5 mls/hr IV Q8 [facility] Last Admin: 04/16/20 05:51 Dose: 12.5 mls/hr Documented by: Vancomycin HCl 750 mg/ Sodium (Chloride) 265 mls @ 250 mls/hr IV Q12H [facility] Last Admin: 04/16/20 09:13 Dose: 250 mls/hr Documented by: Ipratropium [place] (Ipratropium 0.5 Mg/2.5 Ml Solution) 0.5 mg INHALATION Q6HWA.RT [facility] Last Admin: 04/16/20 07:13 Dose: 0.5 mg Documented by: Melatonin (Melatonin 3 Mg Tablet) 3 mg PO QHS PRN PRN PRN Reason: INSOMNIA Multivitamins (Multivitamins,Therapeutic Tablet) 1 tablet PO DAILYCM [facility] Last Admin: 04/16/20 09:17 Dose: 1 tablet Documented by: Nutritional Formula (Nutritional Supplement (Chuy) Packet) 1 packet PO DAILY [facility] Last Admin: 04/16/20 09:20 Dose: Not Given Documented by: Nutritional Formula (Lactose Free) (Ensure Enlive 120 Ml Liquid) 120 ml PO 4X/DAY [facility] Last Admin: 04/16/20 09:34 Dose: 120 ml Documented by: Ondansetron HCl (Ondansetron 4 Mg/2 Ml Vial) 4 mg IV Q8H PRN PRN PRN Reason: NAUSEA/VOMITING Oxybutynin Chloride (Oxybutynin 5 Mg Tablet) 5 mg PO BID [facility] Last Admin: 04/16/20 09:17 Dose: 5 mg Documented by: Oxycodone HCl (Oxycodone Cr 20 Mg Tablet) 20 mg PO Q12 [facility] Last Admin: 04/16/20 09:37 Dose: 20 mg Documented by: Oxycodone HCl (Oxycodone 5 Mg Tablet) 10 mg PO Q6H PRN PRN PRN Reason: Pain Score 6-10 Last Admin: 04/16/20 07:40 Dose: 10 mg Documented by: Pantoprazole Sodium (Pantoprazole Sodium 40 Mg Tablet) 40 mg PO DAILY [facility] Last Admin: 04/16/20 09:17 Dose: 40 mg Documented by: Polyethylene Glycol (Polyethylene Glycol 3350 17 Gm Packet) 17 gm PO DAILY [facility] Last Admin: 04/16/20 09:18 Dose: 17 gm Documented by: Senna/Docusate Sodium (Senna/Docusate Sodium 1 Tablet) 2 tablet PO BID PRN PRN Reason: Constipation Sodium Chloride (0.9% Saline Lock 10 Ml Syringe) 10 - 40 ml IV UD PRN PRN Reason: SALINE FLUSH Last Admin: 04/16/20 02:27 Dose: 10 ml Documented by: Sodium Hypochlorite (Dakin's Venessa Half Strength (=0.25%)) 1 applic TOPICAL BID [facility]; Protocol Last Admin: 04/16/20 09:18 Dose: 1 dose Documented by: Tizanidine HCl (Tizanidine Hcl 2 Mg Tablet) 4 mg PO Q8H PRN PRN PRN Reason: SPASMS STROKE Vital Signs/Narrative: Vital Signs Temp Pulse Resp BP Pulse Ox 04/16/20 09:25 97.8 F 85 18 92/41 L 100 04/16/20 07:10 90 18 99 04/16/20 05:47 98.3 F 88 18 110/45 L 100 Medical Necessity - Tobacco Use Smoking Status: Former smoker Assessment/Plan All Active Problems Severe sepsis (Acute) Hyponatremia (Acute) Thrombocytosis (Acute) Lactic acidosis (Acute) Transaminitis (Acute) Abscess of right groin (Resolved) Hyponatremia (Resolved) MRSA bacteremia (Resolved) Severe sepsis from gram positive cocci in clusters bacteremia--> suspected MRSA -Continue Vanco and Zosyn for now -Lactate has resolved -BP stable and improved -Awaiting organism identification but suspect staph--> MRSA PCR is positive -Check echo for valvular vegetations -Repeat blood cultures in a.m. with this being a gram-positive organism -ID consult Hypovolemic hyponatremia -Patient does have chronic hyponatremia with a baseline sodium of 128-134 - admission was 119 -Improved sodium now 124 -Check TSH -pending for a.m. Acute on chronic anemia -Suspect drop overall is related to dilution as patient has no obvious signs of blood loss -Type and screen -1 unit packed red blood cells -Repeat CBC in a.m. Hyperkalemia -Resolved -A.m. 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 -Podiatry has seen the patient and no acute intervention needed at this time Bilateral buttock and sacral pressure ulcers-stage IV -The plan from surgery is to take the patient to the OR sometime later this week -Wound care following -We will need outpatient wound care follow-up Thrombocytosis -Trending down -Suspect reactive secondary to acute infection Lactic acidosis -Resolved Transaminitis -Patient has chronic hep C--> suspect his enzyme elevations may related to this -Enzymes have improved with normalization of the ALT Acute on chronic pain -We will continue his home pain medications as ordered -As needed Dilaudid for breakthrough pain Hypertension -Hold home antihypertensives with borderline blood pressure -Expect should be able to restart in a.m. Hyperlipidemia -Continue Zetia GERD -Continue omeprazole Urinary retention -Continue oxybutynin Anal cancer status post colostomy -ostomy/wound nurse following Moderate malnutrition -Supplements -Cardiac diet Depression/anxiety -Continue home medications DVT prophylaxis -Lovenox and SCDs Inpatient E&M: [id number] [facility] L3
[2020-04-16 12:13] LABS: Pathologist Review Reviewed
[2020-04-16 12:14] LABS: Pathologist Review Reviewed
[2020-04-16] MEDS: buPROPion (XL) 300 MG TABLET.XL PO (21:29)
[2020-04-16] MEDS: Ezetimibe 10 MG Tablet PO (21:30)
[2020-04-16] MEDS: Fluticasone 0.05% 1 SPRAY NASAL.SRY NASAL (22:30)
[2020-04-17] VITALS (16 sets, daily range): BP systolic 90–151; BP diastolic 47–72; PULSE 89–109; RESP 16–18; TEMP 36.3–37.3; O2SAT 93–98; BMI 31.4; BMI 23.6
--- NOTE | 2020-04-17 00:41 | PHA.PHARE_ITS ---
Consult Pharmacy has been consulted to manage selected antiobiotic: Vancomycin Type of Consult: Follow-up Suspected Infection: Sepsis Prior Doses of Antibiotics Received/Current Regimen: Medications Vancomycin HCl 1,250 mg/ (Sodium Chloride) 275 mls @ 167 mls/hr IV Q12H DHARA Discontinued Medications Vancomycin HCl 750 mg/ Sodium (Chloride) 265 mls @ 250 mls/hr IV Q12H [facility]ARA Last Admin: 04/16/20 22:50 Dose: Infused Labs: Sodium 124 mmol/L (136-145) L 04/16/20 05:15 Potassium 4.4 mmol/L (3.5-5.1) 04/16/20 05:15 Chloride 93 mmol/L (98-107) L 04/16/20 05:15 Carbon Dioxide 27.0 mmol/L (21.0-32.0) 04/16/20 05:15 Anion Gap 4 (5-15) L 04/16/20 05:15 BUN 11 mg/dL (7-18) 04/16/20 05:15 Creatinine 0.41 mg/dL (0.70-1.30) L 04/16/20 05:15 Est GFR (MDRD) Af Amer 268 mL/min (>60) 04/16/20 05:15 Est GFR (MDRD) Non-Af 222 mL/min (>60) 04/16/20 05:15 BUN/Creatinine Ratio 26.8 RATIO (10-20) H 04/16/20 05:15 Glucose 80 mg/dL (74-106) 04/16/20 05:15 Vancomycin Trough 9.0 ug/mL (5.0-15.0) 04/16/20 21:29 Microbiology: Microbiology 04/15/20 11:08 Urine Catheter - Walker Urine Culture - Preliminary Gram negative jesus GNR 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 Will increase dose to 1250mg q12h and re-draw trough prior to 4th dose. Pharmacy Service will continue to monitor and adjust dosing as required. Follow-Up Labs: Trough Vancomycin Labs to be done on [date and time ordered]: 04/18/20 @2100
[2020-04-17] MEDS: 0.9% Saline Lock 10 ML Syringe IV ×4 (02:53→21:09)
[2020-04-17] MEDS: HYDROmorphone 0.5 MG/0.5 ML SYRINGE IV ×3 (02:53→16:46)
--- NOTE | 2020-04-17 06:00 | EKG12_ITS ---
Test Reason : PRE OP Blood Pressure : / mmHG Vent. Rate : 099 BPM Atrial Rate : 099 BPM P-R Int : 136 ms QRS Dur : 100 ms QT Int : 344 ms P-R-T Axes : 043 050 058 degrees QTc Int : 441 ms Normal sinus rhythm Normal ECG Confirmed by RABIA SARABIA, WAYNE ([id number]), brands editor ARANZA EPSTEIN ([id number]) on 04/17/2020 10:49:15 AM Referred By: ALVERTO Confirmed By:WAYNE CAMARILLO MD
[2020-04-17 06:36] LABS: Absolute Lymphocyte Count 1.13 X10^3/uL (0.83-4.51); Absolute Neutrophil Count 10.6 X10^3/uL (2.0-7.7); Basophil# 0.05 X10^3/uL; Basophil% 0.4 % (0-1); Eosinophils% 1.4 % (0-5); Hematocrit 30.5 % (40-54); Hemoglobin 8.9 g/dL (13.0-16.5); Lymphocyte # 1.13 X10^3/ul (4.0); Lymphocyte % 8.2 % (19-41); Mean Corp Hgb Conc 29.2 g/dL (32-36); Mean Corpuscular Hgb 23.5 pg (27.0-32.0); Mean Corpuscular Volume 80.7 fL (80-94); Mean Platelet Vol. 7.2 fl (6.2-12.0); Monocyte# 1.59 X10^3/uL; Monocyte% 11.5 % (0-10); NRBC Flagged by Analyzer 0 % (0-5); Neutrophil # 10.58 X10^3/uL (2.7-7.7); Neutrophil % 76.7 % (47-70); POSITIVE DIFFERENTIAL YES; Platelet Count 508 K/mm3 (150-450); RBC Distribution Width CV 16.5 % (11.6-14.6); RBC Distribution Width SD 49.2 fl (35.1-43.9); Red Blood Count 3.78 M/mm3 (4.6-6.2); White Blood Count 13.8 K/mm3 (4.4-11.0)
[2020-04-17 06:46] LABS: Differential Indicated SCAN CRITERIA MET
[2020-04-17 06:49] LABS: International Normalized Ratio 1.2; Partial Thromboplast Time 38.9 Seconds (24.1-36.2); Prothrombin Time (Protime)PT. 14.3 SECONDS (11.7-14.9)
[2020-04-17 07:10] LABS: Anion Gap 4 (5-15); BUN 10 mg/dL (7-18); BUN/Creat Ratio 25.3 RATIO (10-20); Calcium,Total 9.2 mg/dL (8.5-10.1); Chloride 88 mmol/L (98-107); EST Glomerular Filtration Rate 232 mL/min (>60); Est Glom Filt Rate - Afr Amer 281 mL/min (>60); Estimated Creatinine Clearance 67.94 ml/min; Glucose 93 mg/dL (74-106); Potassium 4.5 mmol/L (3.5-5.1); Sodium Level 121 mmol/L (136-145); Thyroid Stim Hormone (TSH) 3.22 uIU/mL (0.358-3.74)
[2020-04-17 07:11] LABS: Differential Comment SCANNED
[2020-04-17 07:13] LABS: Hypochromasia 2+; Microcytosis 1+; Platelet Estimate MOD INC (ADEQ)
--- NOTE | 2020-04-17 07:28 | PN_ITS ---
Patient Problems: Active and Suspected Problems Severe sepsis (Acute) Hyponatremia (Acute) Thrombocytosis (Acute) Lactic acidosis (Acute) Transaminitis (Acute) Malnutrition (Suspected) Subjective: This 65-year-old male was seen bedside this morning for unstageable heel pressure ulcers to both heels and gangrenous dry changes to the right first and second toe. He denies foot pain while he is laying in bed. He is scheduled for surgical debridement with Dr. Mesa this afternoon. - Physical Exam Vitals/I&O's: Vital Signs Temp Pulse Resp BP Pulse Ox 98.5 F 102 H 16 141/50 H 94 04/17/20 03:00 04/17/20 03:00 04/17/20 03:00 04/17/20 03:00 04/17/20 03:00 Oxygen Flow Rate (L/min) 1 Oxygen Delivery Method Nasal Cannula Weight: 68.719 kg Body Mass Index (BMI) 23.6 Intake and Output for Last 24 Hours 04/15/20 04/16/20 04/17/20 23:59 23:59 23:59 Intake Total 4865 / 4865 2280 / 2280 50 / 50 Output Total 3525 / 3525 3500 / 4500 1950 / 1950 Balance 1340 / 1340 -1220 / -2220 -1900 / -1900 General: Alert, Oriented x3, Cooperative Extremities: No edema, No Calf Tenderness, Diminished Peripheral Pulses, - - Dorsal rigid contraction of all lesser toes bilateral. Compartments of the lower extremities remain soft to palpate. No bogginess or fluctuance on palpation. He does not appear to have pain on palpation to his ulcer or eschar site. Weakness noted to the lower extremities Skin: Ulcer/ Wound - Dry stable unchanged eschars to right distal hallux and dorsal second toe. Dry stable unchanged eschars to posterior heels. No new skin discontinuity, dressing burn, maceration, erythema, streaking, odor or local signs of infection to bilateral lower extremities. His lower extremity skin is atrop Musculoskeletal: Muscle Wasting Neurological: Sensory exam intact to light touch and pain Psych/Mental Status: Normal Affect, Appropriate Microbiology Past 72 Hours 04/17/20 01:50 Mucosa - Nose SARS-CoV-2 Antigen (Rapid) - Final 04/15/20 11:08 Urine Catheter - Walker Urine Culture - Preliminary Gram negative jesus GNR lactose administrator health care facility 04/15/20 10:45 Blood Culture (Wb) - Left Hand Blood Culture - Preliminary 04/15/20 10:45 Blood Culture (Wb) - Left Forearm Blood Culture - Preliminary Laboratory Results 04/15/20 10:45: Diff Path Review Reviewed 04/16/20 05:15: Diff Path Review Reviewed 04/16/20 07:36: Blood Type O POSITIVE, Antibody Screen NEGATIVE 04/16/20 07:36: Crossmatch See Detail 04/16/20 21:29: Vancomycin Trough 9.0 04/17/20 06:24: WBC 13.8 H, RBC 3.78 L, Hgb 8.9 L, Hct 30.5 L, MCV 80.7 D, MCH 23.5 L, MCHC 29.2 L, RDW Std Deviation 49.2 H, RDW Coeff of Rosendo 16.5 H, Plt Count 508 H, MPV 7.2, Immature Gran % (Auto) 1.800 H, Neut % (Auto) 76.7 H, Lymph % (Auto) 8.2 L, [place] % (Auto) 11.5 H, Eos % (Auto) 1.4, Baso % (Auto) 0.4, Absolute Neuts (auto) 10.6 H, Absolute Lymphs (auto) 1.13, Nucleated RBC % 0, Differential Comment SCANNED, Diff Path Review May foll, Platelet Estimate MOD INC, Hypochromasia 2+, Microcytosis 1+ 04/17/20 06:24: Sodium 121 L, Potassium 4.5, Chloride 88 L, Carbon Dioxide 29.0, Anion Gap 4 L, BUN 10, Creatinine 0.40 L, Estim Creat Clear Calc 67.94, Est GFR (MDRD) Af Amer 281, Est GFR (MDRD) Non-Af 232, BUN/Creatinine Ratio 25.3 H, Glucose 93, Calcium 9.2, TSH 3.22 04/17/20 06:24: PT 14.3, INR 1.2, APTT 38.9 H Current Medications Acetaminophen (Acetaminophen 325 Mg Tablet) 650 mg PO Q6H PRN PRN PRN Reason: Pain Score 1-10/Temp > 100.7 F Last Admin: 04/16/20 05:53 Dose: 650 mg Documented by: Al Hydroxide/Mg Hydroxide (Mag Hydrox/Al Hydrox/Simeth 30 Ml Udc) 30 ml PO Q6H PRN PRN PRN Reason: Gastric Burning Albuterol Sulfate (Albuterol 2.5 Mg/3 Ml Vial.Neb.) 2.5 mg INHALATION Q2H PRN PRN PRN Reason: SOB/Wheezing Amlodipine Besylate (Amlodipine 5 Mg Tablet) 5 mg PO DAILY [facility] Last Admin: 04/16/20 09:35 Dose: Not Given Documented by: Aspirin (Aspirin E.C. 81 Mg Tablet) 81 mg PO DAILY@0800 [facility] Last Admin: 04/16/20 09:17 Dose: 81 mg Documented by: Bupropion HCl (Bupropion (Xl) 300 Mg Tablet.Xl) 300 mg PO QHS [facility] Last Admin: 04/16/20 21:29 Dose: 300 mg Documented by: Diphenhydramine HCl (Diphenhydramine 25 Mg Capsule) 25 mg PO Q6H PRN PRN PRN Reason: ITCHING Docusate Sodium (Docusate Sodium 100 Mg Capsule) 200 mg PO BID [facility] Last Admin: 04/16/20 21:29 Dose: 200 mg Documented by: Ezetimibe (Ezetimibe 10 Mg Tablet) 10 mg PO QHS [facility] Last Admin: 04/16/20 21:30 Dose: 10 mg Documented by: Enoxaparin Sodium (Enoxaparin 40 Mg/0.4 Ml Syringe) 40 mg SC DAILY [facility] Last Admin: 04/16/20 09:20 Dose: 40 mg Documented by: Escitalopram Oxalate (Escitalopram Oxalate 10 Mg Tablet) 10 mg PO DAILY [facility] Last Admin: 04/16/20 09:17 Dose: 10 mg Documented by: Ferrous Gluconate (Ferrous Gluconate 324 Mg Tablet) 324 mg PO BIDCM [facility] Last Admin: 04/16/20 17:18 Dose: 324 mg Documented by: Fluticasone Propionate (Fluticasone 0.05% 1 [place] Nasal.Sry) 1 spray NASAL QHS [facility] Last Admin: 04/16/20 22:30 Dose: 1 spray Documented by: Gabapentin (Gabapentin 600 Mg Tablet) 600 mg PO TID [facility] Last Admin: 04/17/20 01:54 Dose: Not Given Documented by: Guaifenesin (Guaifenesin 10 Ml Udc (200mg/10ml)) 5 ml PO Q6H PRN PRN PRN Reason: COUGH Hydromorphone HCl (Hydromorphone 0.5 Mg/0.5 Ml Syringe) 0.5 mg IV Q4H PRN PRN PRN Reason: BREAKTHROUGH Pain Score 6-10 Last Admin: 04/17/20 02:53 Dose: 0.5 mg Documented by: Vancomycin IV Pharmacy to Dose (1 ea/ Sodium Chloride) 500 mls @ 250 mls/hr IV PRN PRN; Protocol PRN Reason: Rx to Dose Piperacillin Sod/Tazobactam (Sod 3.375 gm/ Sodium Chloride) 50 mls @ 12.5 mls/hr IV Q8 [facility] Last Admin: 04/17/20 05:36 Dose: 12.5 mls/hr Documented by: Vancomycin HCl 1,250 mg/ (Sodium Chloride) 275 mls @ 167 mls/hr IV Q12H [facility] Ipratropium [place] (Ipratropium 0.5 Mg/2.5 Ml Solution) 0.5 mg INHALATION Q6HWA.RT [facility] Last Admin: 04/16/20 18:54 Dose: 0.5 mg Documented by: Melatonin (Melatonin 3 Mg Tablet) 3 mg PO QHS PRN PRN PRN Reason: INSOMNIA Multivitamins (Multivitamins,Therapeutic Tablet) 1 tablet PO DAILYCM [facility] Last Admin: 04/16/20 09:17 Dose: 1 tablet Documented by: Nutritional Formula (Nutritional Supplement (Chuy) Packet) 1 packet PO DAILY [facility] Last Admin: 04/16/20 09:20 Dose: Not Given Documented by: Nutritional Formula (Lactose Free) (Ensure Enlive 120 Ml Liquid) 120 ml PO 4X/DAY [facility] Last Admin: 04/16/20 22:35 Dose: 120 ml Documented by: Ondansetron HCl (Ondansetron 4 Mg/2 Ml Vial) 4 mg IV Q8H PRN PRN PRN Reason: NAUSEA/VOMITING Oxybutynin Chloride (Oxybutynin 5 Mg Tablet) 5 mg PO BID [facility] Last Admin: 04/16/20 21:29 Dose: 5 mg Documented by: Oxycodone HCl (Oxycodone Cr 20 Mg Tablet) 20 mg PO Q12 [facility] Last Admin: 04/16/20 21:28 Dose: 20 mg Documented by: Oxycodone HCl (Oxycodone 5 Mg Tablet) 10 mg PO Q6H PRN PRN PRN Reason: Pain Score 6-10 Last Admin: 04/16/20 23:55 Dose: 10 mg Documented by: Pantoprazole Sodium (Pantoprazole Sodium 40 Mg Tablet) 40 mg PO DAILY [facility] Last Admin: 04/16/20 09:17 Dose: 40 mg Documented by: Polyethylene Glycol (Polyethylene Glycol 3350 17 Gm Packet) 17 gm PO DAILY [facility] Last Admin: 04/16/20 09:18 Dose: 17 gm Documented by: Senna/Docusate Sodium (Senna/Docusate Sodium 1 Tablet) 2 tablet PO BID PRN PRN Reason: Constipation Sodium Chloride (0.9% Saline Lock 10 Ml Syringe) 10 - 40 ml IV UD PRN PRN Reason: SALINE FLUSH Last Admin: 04/17/20 02:53 Dose: 10 ml Documented by: Sodium Hypochlorite (Dakin's Venessa Half Strength (=0.25%)) 1 applic TOPICAL BID [facility]; Protocol Last Admin: 04/16/20 23:21 Dose: 1 dose Documented by: Tizanidine HCl (Tizanidine Hcl 2 Mg Tablet) 4 mg PO Q8H PRN PRN PRN Reason: SPASMS Medical Necessity - Tobacco Use Smoking Status: Former smoker Assessment/Plan All Active Problems Severe sepsis (Acute) Hyponatremia (Acute) Thrombocytosis (Acute) Lactic acidosis (Acute) Transaminitis (Acute) Abscess of right groin (Resolved) Hyponatremia (Resolved) MRSA bacteremia (Resolved) Right second toe gangrenous changes with exposed phalanx consistent with osteomyelitis /bone with necrotic bone (previously treated, stable) Right hallux gangrenous changes, stable and no infection Bilateral heel unstageable ulcer, no local infection and stable Peripheral vascular disease, chronic Malnutrition suspected Ischial and sacral pressure ulcers with prior treated osteomyelitis; OR planned for today with Dr. Mesa Bacteremia UTI Other comorbidities I reviewed and discussed his case. His vital signs remained stable. He has leukocytosis with a white blood cell count of 13.8. Upon admission his lactic acid is 2.2 and he is meeting sepsis criteria. Blood cultures with positive bacterial growth. Urine cultures also noted with growth. He is on vancomycin and Zosyn at this time. He does not appear to have an acute foot infection. I do not recommend culture to the foot at his very dry stable eschar sites. He does not appear to have wet gangrene, cellulitis, or purulence. His prior vascular work up and intervention is noted. On 12/04/2019, he had a balloon angioplasty of the right mid popliteal through the entire SFA and common femoral artery with balloon with Dr. Samuels. He does not appear to have progressive improvement or worsening from a wound healing standpoint. There are no local signs of infection on either foot however it is noted he was previously treated for osteo of the toe and he has multiple areas of dry necrotic tissue which will remain a source of infection. I recommend outpatient follow up with Dr. Samuels. I recommend palliative care approach for his feet at this time. I recommend proceeding with urgent toe amputation or debridement of other sites if this turns into a wet progressive or purulence presentation. Dry dressings were applied in a well padded manner. To continue to hang feet over stacked blankets while in bed to alleviate pressure. He is doing a good job with this so far. I will continue to follow him weekly while in house. Please do not hesitate to call if you have any questions. Naomi Palomares DPM, FACFAS [facility] [phone]
--- NOTE | 2020-04-17 07:29 | NURSING ---
Pt is going to surgery this afternoon for debridement of bilateral ischial and sacral wounds per Dr Mesa. will leave dressings in place at this time. will continue to follow post op.
[2020-04-17] MEDS: Pantoprazole Sodium 40 MG Tablet PO (09:01)
[2020-04-17] MEDS: amLODIPine 5 MG Tablet PO (09:01)
--- NOTE | 2020-04-17 10:03 | CASEMGMT ---
Social Work Note SW in to speak with pt. SW familiar with pt from previous visits. SHAHANA introduced self and role at [facility]. Pt is alert and orientated. Pt confirms his plan is to return to [facility]. SHAHANA Asked pt about Palliative Care. Pt states he thinks he may have had Palliative in the past, not currently active with them. SW asked pt if he would like another referral made, pt didn't answer, SW encouraged pt to follow up with [facility] when he returns and they can order a Palliative referral for him if he decides he would want one at a later time. Pt states understanding, denied additional needs or concerns. SHAHANA placed a call to Tala at [facility]. SHAHANA updated Tala that pt is having surgery today, not sure if pt will be medically ready over the weekend. Tala states pt can return when medically ready, staff has been updated pt may or may not return over the weekend. Tala confirms pt will need COVID test within 24 hours of discharge. SHAHANA faxed updated clinicals to Tala at [facility]. SHAHANA completed convalescent 7000 in [employer]. SHAHANA placed Green sheet, transport form, HENS, COVID screening tool on chart. SHAHANA wrote on green sheet that pt will need COVID test within 24 hours of discharge. Plan: Return to [facility] once medically cleared Caroline gO [employer] DEPARTMENT HEAD, QA SPECIALIST
--- NOTE | 2020-04-17 13:00 | PRES_PTH ---
PATIENT: BRYN TROTTER LOC: MS3 U#:[id number] AGE/SX: 65/M ROOM: [facility] [place] RE04/15/[address]: Dr. Melody Mcguire MD : [id number] BED: 1 DIS: 04/22/2020 SPEC #: [id number] RECD: 04/17/20 15:31 STATUS: JUAN DIEGO REQ #: [id number] BURT: 04/17/20 13:[address]: Venkat Mesa DEPT: SURGICAL PATHOLOGY RECD BY: Nya Mcdermott ENTERED: 04/20/20 09:50 SP TYPE: PRESS SORE OTHR DR: MD Dr. Naomi Ellis, DPM MD Dr. Monica Souza DO Dr. Mehrdad Tavallaee, MD Dr. Robert Leininger, MD Tissues: A - Ischium, NOS B - Ischium, NOS C - Ischium, NOS D - Ischium, NOS E - Sacral region F - Sacral region Procedures: Decalcification bone/plaque Surgery Specimen Level III Comments: @ Ordering doctor for DEC edited from to @ by KATIA at 04/20/201410 @ Ordering doctor for SUIV edited from to @ yaquelin MONTALVO at 04/20/20 141 @ Submitting doctor edited from to DR.JSLABY Shemar MONTALVO at 04/20/201410 HEADER OPERATION: Excision sacral and bilateral ischial pressure sores PRE-OP DIAGNOSIS: Sacral pressure sore stage IV, bilateral; ischial pressure sores, stage IV with osteomyelitis TISSUE SUBMITTED: A - Left ischial pressure sore soft tissue, B - Left ischial pressure sore soft bone, C - Right ischial pressure sore soft tissue, D - Right ischial pressure sore bone, E - Sacral pressure sore soft tissue, F - Sacral pressure sore bone MICROSCOPIC DIAGNOSIS A. Left ischial pressure sore tissue: Focal ulceration, associated acute and chronic inflammation, fibrinous exudation, granulation tissue reaction and dystrophic calcification. B. Left ischial pressure sore bone: Pieces of bone with minimal acute inflammation. Pieces of bone and soft tissue with chronic inflammation and reactive changes. C. Right ischial pressure sore tissue: Focal ulceration, associated acute and chronic inflammation, fibrinous exudation and granulation tissue reaction. D. Right ischial pressure sore bone: Pieces of bone with acute osteomyelitis. Pieces of bone and soft tissue with chronic inflammation and reactive changes. E. Sacral pressure sore soft tissue: Focal ulceration, associated acute and chronic inflammation, fibrinous exudation, granulation tissue reaction and dystrophic calcification. F. Sacral pressure sore bone: Pieces of bone with acute osteomyelitis and fibrinous exudation. Pieces of bone and soft tissue with chronic inflammation and reactive changes. GALLO:isi 04/23/2020 COMMENT Case has been reviewed in consultation with Dr. Sanchez who concurs with the above diagnosis. IDC:AM MICROSCOPIC DESCRIPTION Slides are reviewed. GROSS DESCRIPTION A - Received in fixative is one container labeled with the patient's name and designated left ischial pressure sore soft tissue. The specimen consists of an elongated piece of skin with underlying tissue measuring 12 x 1.5 cm and up to 0.7 cm in depth. A focal area of ulceration is noted. Commercial Hvac Technician sections are submitted in two cassettes. B - Received in fixative is one container labeled with the patient's name and designated left ischial pressure sore bone. The specimen consists of multiple fragments of bone that in aggregate measure 3 x 2.5 x 0.4 cm. The specimen is totally submitted in one cassette after decalcification. C - Received in fixative is one container labeled with the patient's name and designated right ischial pressure sore soft tissue. The specimen consists of multiple fragments of skin with soft tissue measuring in aggregate 6 x 4.5 x 0.5 cm. A focal area of ulceration is noted. Commercial Hvac Technician sections are submitted in two cassettes. D - Received in fixative is one container labeled with the patient's name and designated right ischial pressure sore bone. The specimen consists of multiple fragments of bone that in aggregate measure 3 x 2.5 x 0.4 cm. The specimen is totally submitted in one cassette after decalcification. E - Received in fixative is one container labeled with the patient's name and designated sacral pressure sore soft tissue. The specimen consists of a ring-shaped piece of garcia-white skin measuring 6.5 x 6.5 cm and up to 1 cm in thickness. The ring-shaped defect measures up to 4 cm in greatest dimension. An extensive area of ulceration is noted. Commercial Hvac Technician sections are submitted in two cassettes. F - Received in fixative is one container labeled with the patient's name and designated sacral pressure sore bone. The specimen consists of multiple fragments of bone that in aggregate measure 3 x 2.5 x 0.4 cm. The specimen is totally submitted in one cassette after decalcification. / SJ:rg 04/20/20 TC:2 CPT: 61457 x6, 06635 x3
[2020-04-17 13:19] LABS: Pathologist Review Reviewed
[2020-04-17] MEDS: Lidocaine 2% /Epi 1:100 (50ml) 50 ML Vial (14:15)
--- NOTE | 2020-04-17 14:22 | PN_ITS ---
Patient Problems: Active and Suspected Problems Severe sepsis (Acute) Hyponatremia (Acute) Thrombocytosis (Acute) Lactic acidosis (Acute) Transaminitis (Acute) Malnutrition (Suspected) Reason for Visit: Follow-up on severe sepsis/hyponatremia/hyperkalemia/foot ulcer/gangrene/sacral ulcers Subjective: Patient was seen and examined. Denied any new complaints. He is going for wound debridement with Dr. Mesa. Denies any fever or chills. Objective: Physical exam: General: Alert, Oriented x3, Cooperative Extremities: No edema, No Calf Tenderness, Diminished Peripheral Pulses, - - Dorsal rigid contraction of all lesser toes bilateral. Weakness noted to the lower extremities Skin: Ulcer/ Wound - Dry stable unchanged eschars to right distal hallux and dorsal second toe. Dry stable unchanged eschars to posterior heels. No new skin discontinuity, dressing burn, maceration, erythema, streaking, odor or local signs of infection to bilateral lower extremities. His lower extremity skin is atrop Musculoskeletal: Muscle Wasting Neurological: Sensory exam intact to light touch and pain Psych/Mental Status: Normal Affect, Appropriate Vitals/I&O's: Vital Signs Temp Pulse Resp BP Pulse Ox 98.3 F 93 16 151/53 H 94 04/17/20 12:27 04/17/20 12:27 04/17/20 12:27 04/17/20 12:27 04/17/20 12:27 Oxygen Flow Rate (L/min) 1 Oxygen Delivery Method Room Air Weight: 90.9 kg Body Mass Index (BMI) 31.4 Intake and Output for Last 24 Hours 04/15/20 04/16/20 04/17/20 23:59 23:59 23:59 Intake Total 4865 / 4865 2280 / 2280 447.25 / 447.25 Output Total 3525 / 3525 3500 / 4500 2625 / 2625 Balance 1340 / 1340 -1220 / -2220 -2177.75 / -2177.75 Microbiology Past 72 Hours 04/15/20 10:45 Blood Culture (Wb) - Left Forearm Blood Culture - Preliminary Staphylococcus aureus 04/15/20 10:45 Blood Culture (Wb) - Left Hand Blood Culture - Preliminary No growth in 48 hours. 04/15/20 11:08 Urine Catheter - Walker Urine Culture - Preliminary Gram negative jesus GNR lactose discount clerk 04/17/20 01:50 Mucosa - Nose SARS-CoV-2 Antigen (Rapid) - Final Laboratory Results 04/16/20 21:29: Vancomycin Trough 9.0 04/17/20 06:24: WBC 13.8 H, RBC 3.78 L, Hgb 8.9 L, Hct 30.5 L, MCV 80.7 D, MCH 23.5 L, MCHC 29.2 L, RDW Std Deviation 49.2 H, RDW Coeff of Ros[place] 16.5 H, Plt Count 508 H, MPV 7.2, Immature Gran % (Auto) 1.800 H, Neut % (Auto) 76.7 H, Lymph % (Auto) 8.2 L, [place] % (Auto) 11.5 H, Eos % (Auto) 1.4, Baso % (Auto) 0.4, Absolute Neuts (auto) 10.6 H, Absolute Lymphs (auto) 1.13, Nucleated RBC % 0, Differential Comment SCANNED, Diff Path Review Reviewed, Platelet Estimate MOD INC, Hypochromasia 2+, Microcytosis 1+ 04/17/20 06:24: Sodium 121 L, Potassium 4.5, Chloride 88 L, Carbon Dioxide 29.0, Anion Gap 4 L, BUN 10, Creatinine 0.40 L, Estim Creat Clear Calc 67.94, Est GFR (MDRD) Af Amer 281, Est GFR (MDRD) Non-Af 232, BUN/Creatinine Ratio 25.3 H, Glucose 93, Calcium 9.2, TSH 3.22 04/17/20 06:24: PT 14.3, INR 1.2, APTT 38.9 H Current Medications Acetaminophen (Acetaminophen 325 Mg Tablet) 650 mg PO Q6H PRN PRN PRN Reason: Pain Score 1-10/Temp > 100.7 F Last Admin: 04/16/20 05:53 Dose: 650 mg Documented by: Al Hydroxide/Mg Hydroxide (Mag Hydrox/Al Hydrox/Simeth 30 Ml Udc) 30 ml PO Q6H PRN PRN PRN Reason: Gastric Burning Albuterol Sulfate (Albuterol 2.5 Mg/3 Ml Vial.Neb.) 2.5 mg INHALATION Q2H PRN PRN PRN Reason: SOB/Wheezing Amlodipine Besylate (Amlodipine 5 Mg Tablet) 5 mg PO DAILY [facility] Last Admin: 04/17/20 09:01 Dose: 5 mg Documented by: Aspirin (Aspirin E.C. 81 Mg Tablet) 81 mg PO DAILY@0800 [facility] Last Admin: 04/17/20 08:02 Dose: Not Given Documented by: Bupropion HCl (Bupropion (Xl) 300 Mg Tablet.Xl) 300 mg PO QHS [facility] Last Admin: 04/16/20 21:29 Dose: 300 mg Documented by: Diphenhydramine HCl (Diphenhydramine 25 Mg Capsule) 25 mg PO Q6H PRN PRN PRN Reason: ITCHING Docusate Sodium (Docusate Sodium 100 Mg Capsule) 200 mg PO BID [facility] Last Admin: 04/17/20 08:03 Dose: Not Given Documented by: Ezetimibe (Ezetimibe 10 Mg Tablet) 10 mg PO QHS [facility] Last Admin: 04/16/20 21:30 Dose: 10 mg Documented by: Enoxaparin Sodium (Enoxaparin 40 Mg/0.4 Ml Syringe) 40 mg SC DAILY [facility] Last Admin: 04/17/20 08:04 Dose: Not Given Documented by: Escitalopram Oxalate (Escitalopram Oxalate 10 Mg Tablet) 10 mg PO DAILY [facility] Last Admin: 04/17/20 08:03 Dose: Not Given Documented by: Ferrous Gluconate (Ferrous Gluconate 324 Mg Tablet) 324 mg PO BIDCM [facility] Last Admin: 04/17/20 08:02 Dose: Not Given Documented by: Fluticasone Propionate (Fluticasone 0.05% 1 [place] Nasal.Sry) 1 spray NASAL QHS [facility] Last Admin: 04/16/20 22:30 Dose: 1 spray Documented by: Gabapentin (Gabapentin 600 Mg Tablet) 600 mg PO TID [facility] Last Admin: 04/17/20 13:24 Dose: Not Given Documented by: Guaifenesin (Guaifenesin 10 Ml Udc (200mg/10ml)) 5 ml PO Q6H PRN PRN PRN Reason: COUGH Hydromorphone HCl (Hydromorphone 0.5 Mg/0.5 Ml Syringe) 0.5 mg IV Q4H PRN PRN PRN Reason: BREAKTHROUGH Pain Score 6-10 Last Admin: 04/17/20 09:16 Dose: 0.5 mg Documented by: Vancomycin IV Pharmacy to Dose (1 ea/ Sodium Chloride) 500 mls @ 250 mls/hr IV PRN PRN; Protocol PRN Reason: Rx to Dose Piperacillin Sod/Tazobactam (Sod 3.375 gm/ Sodium Chloride) 50 mls @ 12.5 mls/hr IV Q8 DHARA Last Infusion: 04/17/20 14:07 Dose: Infused Documented by: Vancomycin HCl 1,250 mg/ (Sodium Chloride) 275 mls @ 167 mls/hr IV Q12H DHARA Last Infusion: 04/17/20 11:20 Dose: Infused Documented by: Sodium Chloride () 250 mls @ 15 mls/hr IV .[id number] PRN PRN Reason: Saline Flush Last Infusion: 04/17/20 09:41 Dose: 0 mls/hr Documented by: Sodium Chloride () 250 mls @ 15 mls/hr IV .[id number] PRN PRN Reason: Additional IVPB Infusion Last Infusion: 04/17/20 11:20 Dose: 15 mls/hr Documented by: Ipratropium [place] (Ipratropium 0.5 Mg/2.5 Ml Solution) 0.5 mg INHALATION Q6HWA.RT [facility] Last Admin: 04/16/20 18:54 Dose: 0.5 mg Documented by: Melatonin (Melatonin 3 Mg Tablet) 3 mg PO QHS PRN PRN PRN Reason: INSOMNIA Multivitamins (Multivitamins,Therapeutic Tablet) 1 tablet PO DAILYCM [facility] Last Admin: 04/17/20 08:02 Dose: Not Given Documented by: Nutritional Formula (Nutritional Supplement (Chuy) Packet) 1 packet PO DAILY [facility] Last Admin: 04/17/20 08:03 Dose: Not Given Documented by: Nutritional Formula (Lactose Free) (Ensure Enlive 120 Ml Liquid) 120 ml PO 4X/DAY [facility] Last Admin: 04/17/20 13:24 Dose: Not Given Documented by: Ondansetron HCl (Ondansetron 4 Mg/2 Ml Vial) 4 mg IV Q8H PRN PRN PRN Reason: NAUSEA/VOMITING Oxybutynin Chloride (Oxybutynin 5 Mg Tablet) 5 mg PO BID [facility] Last Admin: 04/17/20 08:03 Dose: Not Given Documented by: Oxycodone HCl (Oxycodone Cr 20 Mg Tablet) 20 mg PO Q12 [facility] Last Admin: 04/17/20 09:01 Dose: 20 mg Documented by: Oxycodone HCl (Oxycodone 5 Mg Tablet) 10 mg PO Q6H PRN PRN PRN Reason: Pain Score 6-10 Last Admin: 04/16/20 23:55 Dose: 10 mg Documented by: Pantoprazole Sodium (Pantoprazole Sodium 40 Mg Tablet) 40 mg PO DAILY [facility] Last Admin: 04/17/20 09:01 Dose: 40 mg Documented by: Polyethylene Glycol (Polyethylene Glycol 3350 17 Gm Packet) 17 gm PO DAILY [facility] Last Admin: 04/17/20 08:04 Dose: Not Given Documented by: Senna/Docusate Sodium (Senna/Docusate Sodium 1 Tablet) 2 tablet PO BID PRN PRN Reason: Constipation Sodium Chloride (0.9% Saline Lock 10 Ml Syringe) 10 - 40 ml IV UD PRN PRN Reason: SALINE FLUSH Last Admin: 04/17/20 09:16 Dose: 10 ml Documented by: Sodium Hypochlorite ([place] Half Strength (=0.25%)) 1 applic TOPICAL BID [facility]; Protocol Last Admin: 04/17/20 09:11 Dose: Not Given Documented by: Tizanidine HCl (Tizanidine Hcl 2 Mg Tablet) 4 mg PO Q8H PRN PRN PRN Reason: SPASMS STROKE Vital Signs/Narrative: Vital Signs Temp Pulse Resp BP Pulse Ox 04/17/20 12:27 98.3 F 93 16 151/53 H 94 04/17/20 11:41 98.6 F 96 18 151/53 H 93 Medical Necessity - Tobacco Use Smoking Status: Former smoker Assessment/Plan All Active Problems Severe sepsis (Acute) Hyponatremia (Acute) Thrombocytosis (Acute) Lactic acidosis (Acute) Transaminitis (Acute) Abscess of right groin (Resolved) Hyponatremia (Resolved) MRSA bacteremia (Resolved) 1. Severe sepsis/staph aureus bacteremia(1 out of 2 blood cultures), improved Suspected multifactorial in etiology On IV vancomycin and Zosyn 2d-echo shows EF of 55 to 60%, no valvular lesions Infectious disease consulted 2. Acute on chronic anemia, [place] secondary to hemodilution, status post packed RBC Hemoglobin improved to 8.9 from 6.8 We will continue to monitor 3. Hypovolemic hyponatremia, remains about the same, TSH is normal, will continue to trend 4. Hyperkalemia, resolved 5. 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 Bilateral buttocks and sacral decubitus ulcers, stage IV, going for surgery plastic surgery 7. Hypertension, slightly uncontrolled, will continue to monitor, Will have a low threshold to resume home antihypertensives if persistently elevated 8. Moderate malnutrition, garde manger consulted, on supplement 9. Anal CA status post colostomy 10. DVT prophylaxis with Lovenox subcu Inpatient E&M: [id number] [facility] Hosp L3
--- NOTE | 2020-04-17 14:43 | OP.PCM_ITS ---
Report of Operation Date of Procedure: 04/17/20 Pre-Operative Diagnosis: 1. Recurrent right ischial pressure sore, Stage IV. 2. Sepsis. 3. 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 4. Osteomyelitis. 5. MRSA. 6. Left ischial pressure sore, Stage IV. 7. Sacral pressure sore, Stage IV. 8. History of anal CA treated with chemotherapy and radiation therapy. 9. Anemia of chronic disease. 10. UTI. Post-Operative Diagnosis: Same. Surgery/Procedure Performed:: 1. Excision sacral pressure sore, Stage IV, with partial ostectomy for osteomyelitis. 2. Excision left ischial pressure sore, Stage IV, with partial ostectomy for osteomyelitis. 3. Excision right ischial radiation pressure sore, Stage IV, with partial ostectomy for osteomyelitis. Description of Surgical Findings:: Mr. Rincon is a 65 year old WM presented to the ED from the [facility] with fever and malaise and fatigue. His WBC was 12.5. His Lactate was 2.2 His Urinalysis was positive. He was started on Vancomycin and Zosyn. CT was done which showed borderline hepatomegaly with stable small hepatic cysts. Colostomy seen in the anterior left abdominal wall. Fluid collection with a small amount of air overl xavier the left inferior iliac bone posteriorly. Destruction of the right femoral head and cephalic migration of the proximal femur with bony destruction of the acetabulum. Patient is known to me. He recently underwent surgery on 10/01/19 where he underwent excision recurrent right ischial pressure sore, Stage IV, with partial ostectomy for osteomyelitis and excision left ischial pressure sore, Stage IV, with partial ostectomy for osteomyelitis and excision sacral pressure sore, Stage IV, with partial ostectomy for osteomyelitis. His wound care at the [facility] was Dakin's dressing changes. I was asked to evaluate this patient's multiple pressure sore ulcers for surgical options for treatment. Patient was informed of the risks and complications of the procedure including alternatives to surgery. These were discussed with the patient personally. Patient voices understanding and wishes to proceed. Size of defect sacral area - 8 x 8 x 3 cm. Size of defect left ischial area - 7.5 x 5 x 2 cm. Size of defect right ischial area - 7.5 x 3.5 x 2.5 cm. correctional case records supervisor: None Type of Anesthesia:: General Specimen's removed: 1. Sacral pressure sore soft tissue to Pathology and Microbiology. 2. Sacral pressure sore bone to Pathology and Microbiology. 3. Left ischial pressure sore soft tissue to Pathology and Microbiology. 4. Left ischial pressure sore bone to Pathology and Microbiology. 5. Right ischial radiation pressure sore soft tissue to Pathology and Microbiology. 6. Right ischial radiation pressure sore bone to Pathology and Microbiology. Drains: None. Estimated Blood Loss (mL): 150 ml. Description of Procedure: Patient was taken to OR in supine position and placed under general anesthesia. He was then placed in the prone position and his ischial areas and sacral area were prepped and draped in the usual fashion. SCD's were placed for DVT prophylaxis. Perioperative antibiotics were given intravenously. I excised the radiation pressure sore abscess ulcer right ischial area in a circular fashion down through the subcutaneous tissue and muscle which was indurated with fat necrosis and late effect radiation damage. No pus was seen. The indurated ulcer and abnormal bursal scar tissue were excised down to the bone. He has history of osteomyelitis, and I suspect persistent osteomyelitis. There was still a considerable amount of chronic radiated tissue damage deeply. After excising this radiated pressure sore ulcer down to the base, it had involved the ischial bone. The ischial bone was irregular in shape which can be consistent with osteomyelitis but also can be related to his radiation. A partial ostectomy was performed with an osteotome and a mallet in a tangential direction. The bony edges were smoothed out with a rasp. I also used rongeurs. After the partial ostectomy, the bone showed good bleeding. Hemostasis was obtained with electrocautery. The wound was irrigated with saline. The size of the defect after excision was 7.5 x 3.5 x 2.5 cm. The wound was packed with Mepitel nonadherent dressing followed by Kerlix gauze and saline followed by dry Kerlix gauze and ABD pads and tape for a compression dressing. Half the soft tissue and half the bone was sent to Pathology for analysis to rule out carcinoma and to evaluate for osteomyelitis. Half the soft tissue and half the bone was sent to Microbiology for culture. A positive culture may necessitate antibiotic modification. He is being treated perioperatively with Vancomycin and Zosyn. I then excised the pressure sore ulcer left ischial area in a circular fashion down through the subcutaneous tissue and muscle which was indurated with fat necrosis. No pus was seen. The indurated ulcer and abnormal bursal scar tissue were excised down to the bone. The ischial bone was irregular in shape which can be consistent with osteomyelitis. A partial ostectomy was performed with an osteotome and a mallet in a tangential direction. The bony edges were smoothed out with a rasp. I also used rongeurs. After the partial ostectomy, the bone showed good bleeding. Hemostasis was obtained with electrocautery. The wound was irrigated with saline. The size of the defect after excision was 7.5 x 5 x 2 cm. The wound was packed with Mepitel nonadherent dressing followed by Kerlix gauze and saline followed by dry Kerlix gauze and ABD pads and tape for a compression dressing. Half the soft tissue and half the bone was sent to Pathology for analysis to rule out carcinoma and to evaluate for osteomyelitis. Half the soft tissue and half the bone was sent to Microbiology for culture. A positive culture may necessitate antibiotic modification. I then excised the sacral pressure sore in a circular fashion down through the subcutaneous tissue and muscle which was indurated with fat necrosis. No pus was seen. The indurated ulcer and abnormal bursal scar tissue were excised down to the bone. The sacral bone was irregular in shape which can be consistent with osteomyelitis. A partial ostectomy was performed with an osteotome and a mallet in a tangential direction. The bony edges were smoothed out with a rasp. I also used rongeurs. After the partial ostectomy, the bone showed good bleeding. Hemostasis was obtained with electrocautery. The wound was irrigated with saline. The size of the defect after excision was 8 x 8 x 3 cm. The wound was packed with Mepitel nonadherent dressing followed by Kerlix gauze and saline followed by dry Kerlix gauze and ABD pads and tape for a compression dressing. Patient tolerated the procedure well and will be sent to PACU in satisfactory condition. He will be sent back upstairs for continued postop care. Tomorrow will proceed with Dakin's dressing changes. I anticipate the need for additional IV antibiotics and the use of a PICC line. He will need to return to the [facility] for both the IV antibiotics and the wound care. Grafts/Implants Used: None. - Complications None. - Admit VTE Documentation VTE Present on Admission: No VTE Mechan Device Prophylaxis: None VTE Pharm Prophylaxis ordered?: Yes Surgery Charges CPT - 82020 ICD-10 - L89.314, M86.651, T66.xxxS, L59.8, Z86.14, Z85.048, A41.9, D63.8, N39.0 [id number] L89.324, M86.651, Z86.14, Z85.048, A41.9, D63.8, N39.0 [id number] L89.154, M86.651, Z86.14, Z85.048, A41.9, D63.8, N39.0
[2020-04-17] MEDS: Ferrous Gluconate 324 MG Tablet PO (18:47)
[2020-04-17] MEDS: Ipratropium 0.5 MG/2.5 ML SOLUTION INHALATION (20:20)
[2020-04-17] MEDS: Gabapentin 600 MG Tablet PO (21:07)
[2020-04-17] MEDS: Docusate Sodium 100 MG Capsule 200 MG PO (21:07)
[2020-04-17] MEDS: Ezetimibe 10 MG Tablet PO (21:07)
[2020-04-17] MEDS: Oxybutynin 5 MG Tablet PO (21:07)
[2020-04-17] MEDS: buPROPion (XL) 300 MG TABLET.XL PO (21:07)
[2020-04-17] MEDS: Fluticasone 0.05% 1 SPRAY NASAL.SRY NASAL (21:07)
[2020-04-18] VITALS (10 sets, daily range): BP systolic 98–157; BP diastolic 48–85; PULSE 61–90; RESP 16–18; TEMP 36.7–37.2; O2SAT 92–98; BMI 23.6
[2020-04-18] MEDS: oxyCODONE 5 MG Tablet 10 MG PO ×2 (00:47→19:47)
--- NOTE | 2020-04-18 01:20 | NURSING ---
Pt educated on need to be turned q2hr, pt refusing at this time. Will continue to monitor and encourage.
[2020-04-18] MEDS: Gabapentin 600 MG Tablet PO ×3 (05:25→21:23)
[2020-04-18] MEDS: HYDROmorphone 0.5 MG/0.5 ML SYRINGE IV ×4 (06:02→22:21)
[2020-04-18 06:12] LABS: Absolute Neutrophil Count 9.8 X10^3/uL (2.0-7.7); Basophil# 0.01 X10^3/uL; Basophil% 0.1 % (0-1); Eosinophil# 0.02 X10^3/uL; Eosinophils% 0.2 % (0-5); Hematocrit 25.2 % (40-54); Hemoglobin 7.8 g/dL (13.0-16.5); Lymphocyte % 9.8 % (19-41); Mean Corpuscular Hgb 23.9 pg (27.0-32.0); Mean Corpuscular Volume 77.1 fL (80-94); Mean Platelet Vol. 7.5 fl (6.2-12.0); Monocyte# 1.06 X10^3/uL; Monocyte% 8.6 % (0-10); NRBC Flagged by Analyzer 0 % (0-5); Neutrophil # 9.77 X10^3/uL (2.7-7.7); Neutrophil % 79.3 % (47-70); Platelet Count 570 K/mm3 (150-450); RBC Distribution Width CV 16.4 % (11.6-14.6); RBC Distribution Width SD 46.5 fl (35.1-43.9); Red Blood Count 3.27 M/mm3 (4.6-6.2); White Blood Count 12.3 K/mm3 (4.4-11.0)
[2020-04-18 06:34] LABS: Anion Gap 5 (5-15); BUN 13 mg/dL (7-18); Calcium,Total 9.3 mg/dL (8.5-10.1); Chloride 90 mmol/L (98-107); Creatinine, Serum 0.42 mg/dL (0.70-1.30); EST Glomerular Filtration Rate 216 mL/min (>60); Est Glom Filt Rate - Afr Amer 262 mL/min (>60); Estimated Creatinine Clearance 67.94 ml/min; Glucose 91 mg/dL (74-106); Potassium 4.5 mmol/L (3.5-5.1); Sodium Level 125 mmol/L (136-145)
[2020-04-18] MEDS: Ipratropium 0.5 MG/2.5 ML SOLUTION INHALATION ×3 (07:05→19:50)
--- NOTE | 2020-04-18 08:24 | PCM.DC.POD ---
Additional Activity Instructions:: hang heels over stacked blankets or pillows while in bed to avoid direct pressure to heel ulcers Call your doctor if your incision/area has: Continuous Slow Oozing, Foul Smelling Discharge Call your doctor if you observe: Fever of 101 or Higher, Calf discomfort, Uncontrolled pain Cleanse incision/area with: - - Change dressings to feet every other day with dry gauze. If moisture is noted, apply betadine. Ensure the dorsal foot and anterior ankle locations are well padded to avoid dressing injuries. Allergies/Adverse Reactions: Allergies chlorthalidone Allergy (Verified 04/15/20 10:46) Other famotidine Allergy (Verified 04/15/20 10:46) Unknown povidone-iodine [From Betadine] Allergy (Verified 04/15/20 10:46) Hives soap Adverse Reaction (Verified 04/15/20 10:46) Hives Yptpzjy-Tih-Nul Reductase Inhibitor Adverse Reaction (Verified 04/15/20 10:46) MESSED MY LIVER UP adhesive tape Allergy (Uncoded 04/15/20 10:46) Itching/rash Medications to take at Discharge Fluticasone 0.05% [Flonase Nasal [place]] 1 spray NASAL DAILY 03/22/16 Multivitamin [Multiple Vitamins] 1 tab PO DAILY 03/22/16 buPROPion XL [Wellbutrin Xl] 300 mg PO QHS 03/22/16 Metoprolol Tartrate [Lopressor (beta curt)] 25 mg PO BID 01/19/18 Ferrous Gluconate 324 mg PO BID 08/22/18 Gabapentin [Neurontin] 600 mg PO TID 08/12/19 Oxycodone HCl [Oxycodone HCl ER] 10 mg PO Q6H PRN PRN 12/03/19 Cholecalciferol (Vitamin D3) [Vitamin D3] 25 mcg PO DAILY 12/16/19 Escitalopram Oxalate 10 mg PO DAILY 12/16/19 Ezetimibe [Zetia] 10 mg PO QHS 12/16/19 Acetaminophen 1,000 mg PO TID 04/15/20 Amlodipine [Norvasc] 5 mg PO DAILY 04/15/20 Argin/Glut/Cahmb/Collag/Mv-Min [[place]uy Packet] 1 ea PO DAILY 04/15/20 Aspirin [Aspirin, Baby] 81 mg PO DAILY@0800 04/15/20 Docusate Sodium [Colace] 200 mg PO BID 04/15/20 Omeprazole 40 mg PO DAILY 04/15/20 Oxybutynin Chloride 5 mg PO BID 04/15/20 Oxycodone CR [Oxycontin] 20 mg PO Q12H 04/15/20 Polyethylene Glycol 3350 [Miralax] 17 gm PO DAILY 04/15/20 Tiotropium [place] [Spiriva Respimat] 2 puff IH DAILY 04/15/20 Tizanidine HCl [Zanaflex] 4 mg PO Q8H PRN 04/15/20 Primary Care Physician: Winnie Gonzales MD [STAFF PHYSICIAN] - Test Results: Test results from this visit will be discussed in further detail at your follow-up appointment, if applicable. Please Follow Up With: Clinic,Wound When: 2-4 weeks Please Follow Up With: Eddie Samuels MD When: [phone]
[2020-04-18] MEDS: Pantoprazole Sodium 40 MG Tablet PO (09:22)
[2020-04-18] MEDS: Aspirin E.C. 81 MG Tablet PO (09:23)
[2020-04-18] MEDS: Multivitamins,Therapeutic Tablet 1 TABLET PO (09:23)
[2020-04-18] MEDS: Ferrous Gluconate 324 MG Tablet PO ×2 (09:24→17:16)
[2020-04-18] MEDS: Oxybutynin 5 MG Tablet PO ×2 (09:25→21:22)
[2020-04-18] MEDS: Escitalopram Oxalate 10 MG Tablet PO (09:26)
[2020-04-18] MEDS: Enoxaparin 40 MG/0.4 ML Syringe SC (09:26)
[2020-04-18] MEDS: amLODIPine 5 MG Tablet PO (09:27)
[2020-04-18] MEDS: Polyethylene Glycol 3350 17 GM PACKET PO (09:27)
--- NOTE | 2020-04-18 09:45 | PN_ITS ---
Patient Problems: Active and Suspected Problems Severe sepsis (Acute) Hyponatremia (Acute) Thrombocytosis (Acute) Lactic acidosis (Acute) Transaminitis (Acute) Malnutrition (Suspected) Reason for Visit: Follow-up on severe sepsis/hyponatremia/hyperkalemia/foot ulcer/gangrene/sacral ulcers Subjective: Patient was seen and examined. His pain is fairly controlled. Intra-operative cultures are pending. Denies any fever or chills Objective: Physical exam: General: Alert, Oriented x3, Cooperative CVS: HS I +II, regular, no murmurs RESP: Clinically clear to auscultation Extremities: No edema, No Calf Tenderness, Diminished Peripheral Pulses Skin: Ulcer/ Wound - Dry stable unchanged eschars to right distal hallux and dorsal second toe. Dry stable unchanged eschars to posterior heels. No new skin discontinuity, dressing burn, maceration, erythema, streaking, odor or local signs of infection to bilateral lower extremities. His lower extremity skin is atrop Musculoskeletal: Muscle Wasting Neurological: Sensory exam intact to light touch and pain Psych/Mental Status: Normal Affect, Appropriate Vitals/I&O's: Vital Signs Temp Pulse Resp BP Pulse Ox 98.2 F 89 18 108/50 L 92 04/18/20 04:37 04/18/20 07:05 04/18/20 07:05 04/18/20 04:37 04/18/20 07:05 Oxygen Flow Rate (L/min) 1 Oxygen Delivery Method Room Air Weight: 91.2 kg Body Mass Index (BMI) 31.4 Intake and Output for Last 24 Hours 04/16/20 04/17/20 04/18/20 23:59 23:59 23:59 Intake Total 2280 / 2280 1151.00 / 1301.00 383 / 383 Output Total 3500 / 4500 4125 / 4925 1450 / 1450 Balance -1220 / -2220 -2974.00 / -3624.00 -1067 / -1067 Microbiology Past 72 Hours 04/15/20 11:08 Urine Catheter - Walker Urine Culture - Preliminary Escherichia coli Proteus mirabilis 04/15/20 10:45 Blood Culture (Wb) - Left Forearm Blood Culture - Preliminary Meth. resistant Staph. aureus 04/16/20 09:35 Blood Culture (Wb) - Anticubital Left Blood Culture - Preliminary No growth in 48 hours. 04/15/20 10:45 Blood Culture (Wb) - Left Hand Blood Culture - Preliminary No growth in 48 hours. 04/17/20 01:50 Mucosa - Nose SARS-CoV-2 Antigen (Rapid) - Final Laboratory Results 04/17/20 06:24: Diff Path Review Reviewed 04/18/20 05:30: WBC 12.3 H, RBC 3.27 L, Hgb 7.8 L, Hct 25.2 L, MCV 77.1 L, MCH 23.9 L, MCHC 31.0 L D, RDW Std Deviation 46.5 H, RDW Coeff of Rosendo 16.4 H, Plt Count 570 H, MPV 7.5, Immature Gran % (Auto) 2.000 H, Neut % (Auto) 79.3 H, Lymph % (Auto) 9.8 L, [place] % (Auto) 8.6, Eos % (Auto) 0.2, Baso % (Auto) 0.1, Absolute Neuts (auto) 9.8 H, Absolute Lymphs (auto) 1.20, Nucleated RBC % 0 04/18/20 05:30: Sodium 125 L, Potassium 4.5, Chloride 90 L, Carbon Dioxide 30.0, Anion Gap 5, BUN 13, Creatinine 0.42 L, Estim Creat Clear Calc 67.94, Est GFR (MDRD) Af Amer 262, Est GFR (MDRD) Non-Af 216, BUN/Creatinine Ratio 31.0 H, Glucose 91, Calcium 9.3 Current Medications Acetaminophen (Acetaminophen 325 Mg Tablet) 650 mg PO Q6H PRN PRN PRN Reason: Pain Score 1-10/Temp > 100.7 F Last Admin: 04/16/20 05:53 Dose: 650 mg Documented by: Al Hydroxide/Mg Hydroxide (Mag Hydrox/Al Hydrox/Simeth 30 Ml Udc) 30 ml PO Q6H PRN PRN PRN Reason: Gastric Burning Albuterol Sulfate (Albuterol 2.5 Mg/3 Ml Vial.Neb.) 2.5 mg INHALATION Q2H PRN PRN PRN Reason: SOB/Wheezing Amlodipine Besylate (Amlodipine 5 Mg Tablet) 5 mg PO DAILY [facility] Last Admin: 04/18/20 09:27 Dose: 5 mg Documented by: Aspirin (Aspirin E.C. 81 Mg Tablet) 81 mg PO DAILY@0800 [facility] Last Admin: 04/18/20 09:23 Dose: 81 mg Documented by: Bupropion HCl (Bupropion (Xl) 300 Mg Tablet.Xl) 300 mg PO QHS [facility] Last Admin: 04/17/20 21:07 Dose: 300 mg Documented by: Diphenhydramine HCl (Diphenhydramine 25 Mg Capsule) 25 mg PO Q6H PRN PRN PRN Reason: ITCHING Docusate Sodium (Docusate Sodium 100 Mg Capsule) 200 mg PO BID [facility] Last Admin: 04/18/20 09:24 Dose: Not Given Documented by: Ezetimibe (Ezetimibe 10 Mg Tablet) 10 mg PO QHS [facility] Last Admin: 04/17/20 21:07 Dose: 10 mg Documented by: Enoxaparin Sodium (Enoxaparin 40 Mg/0.4 Ml Syringe) 40 mg SC DAILY [facility] Last Admin: 04/18/20 09:26 Dose: 40 mg Documented by: Escitalopram Oxalate (Escitalopram Oxalate 10 Mg Tablet) 10 mg PO DAILY [facility] Last Admin: 04/18/20 09:26 Dose: 10 mg Documented by: Ferrous Gluconate (Ferrous Gluconate 324 Mg Tablet) 324 mg PO BIDCM [facility] Last Admin: 04/18/20 09:24 Dose: 324 mg Documented by: Fluticasone Propionate (Fluticasone 0.05% 1 [place] Nasal.Sry) [facility] Last Admin: 04/17/20 21:07 Dose: 1 spray Documented by: Gabapentin (Gabapentin 600 Mg Tablet) 600 mg PO TID [facility] Last Admin: 04/18/20 05:25 Dose: 600 mg Documented by: Guaifenesin (Guaifenesin 10 Ml Udc (200mg/10ml)) 5 ml PO Q6H PRN PRN PRN Reason: COUGH Hydromorphone HCl (Hydromorphone 0.5 Mg/0.5 Ml Syringe) 0.5 mg IV Q4H PRN PRN PRN Reason: BREAKTHROUGH Pain Score 6-10 Last Admin: 04/18/20 06:02 Dose: 0.5 mg Documented by: Vancomycin IV Pharmacy to Dose (1 ea/ Sodium Chloride) 500 mls @ 250 mls/hr IV PRN PRN; Protocol PRN Reason: Rx to Dose Piperacillin Sod/Tazobactam (Sod 3.375 gm/ Sodium Chloride) 50 mls @ 12.5 mls/hr IV Q8 [facility] Last Admin: 04/18/20 05:25 Dose: 12.5 mls/hr Documented by: Vancomycin HCl 1,250 mg/ (Sodium Chloride) 275 mls @ 167 mls/hr IV Q12H [facility] Last Admin: 04/18/20 09:18 Dose: 167 mls/hr Documented by: Sodium Chloride () 250 mls @ 15 mls/hr IV .[id number] PRN PRN Reason: Saline Flush Last Infusion: 04/18/20 05:25 Dose: 0 mls/hr Documented by: Sodium Chloride () 250 mls @ 15 mls/hr IV .[id number] PRN PRN Reason: Additional IVPB Infusion Last Infusion: 04/17/20 16:35 Dose: Infused Documented by: Ipratropium [place] (Ipratropium 0.5 Mg/2.5 Ml Solution) 0.5 mg INHALATION Q6HWA.RT [facility] Last Admin: 04/18/20 07:05 Dose: 0.5 mg Documented by: Melatonin (Melatonin 3 Mg Tablet) 3 mg PO QHS PRN PRN PRN Reason: INSOMNIA Multivitamins (Multivitamins,Therapeutic Tablet) 1 tablet PO DAILYCM [facility] Last Admin: 04/18/20 09:23 Dose: 1 tablet Documented by: Nutritional Formula (Nutritional Supplement (Chuy) Packet) 1 packet PO DAILY [facility] Last Admin: 04/18/20 09:25 Dose: 1 packet Documented by: Nutritional Formula (Lactose Free) (Ensure Enlive 120 Ml Liquid) 120 ml PO 4X/DAY [facility] Last Admin: 04/18/20 09:25 Dose: Not Given Documented by: Ondansetron HCl (Ondansetron 4 Mg/2 Ml Vial) 4 mg IV Q8H PRN PRN PRN Reason: NAUSEA/VOMITING Oxybutynin Chloride (Oxybutynin 5 Mg Tablet) 5 mg PO BID [facility] Last Admin: 04/18/20 09:25 Dose: 5 mg Documented by: Oxycodone HCl (Oxycodone Cr 20 Mg Tablet) 20 mg PO Q12 [facility] Last Admin: 04/18/20 09:32 Dose: 20 mg Documented by: Oxycodone HCl (Oxycodone 5 Mg Tablet) 10 mg PO Q6H PRN PRN PRN Reason: Pain Score 6-10 Last Admin: 04/18/20 00:47 Dose: 10 mg Documented by: Pantoprazole Sodium (Pantoprazole Sodium 40 Mg Tablet) 40 mg PO DAILY [facility] Last Admin: 04/18/20 09:22 Dose: 40 mg Documented by: Polyethylene Glycol (Polyethylene Glycol 3350 17 Gm Packet) 17 gm PO DAILY [facility] Last Admin: 04/18/20 09:27 Dose: 17 gm Documented by: Senna/Docusate Sodium (Senna/Docusate Sodium 1 Tablet) 2 tablet PO BID PRN PRN Reason: Constipation Sodium Chloride (0.9% Saline Lock 10 Ml Syringe) 10 - 40 ml IV UD PRN PRN Reason: SALINE FLUSH Last Admin: 04/17/20 21:09 Dose: 10 ml Documented by: Sodium Hypochlorite (Dakin's Venessa Half Strength (=0.25%)) 1 applic TOPICAL BID [facility]; Protocol Last Admin: 04/18/20 09:25 Dose: Not Given Documented by: Tizanidine HCl (Tizanidine Hcl 2 Mg Tablet) 4 mg PO Q8H PRN PRN PRN Reason: SPASMS STROKE Vital Signs/Narrative: Vital Signs Pulse Resp Pulse Ox 04/18/20 07:05 89 18 92 Medical Necessity - Tobacco Use Smoking Status: Former smoker Assessment/Plan All Active Problems Severe sepsis (Acute) Hyponatremia (Acute) Thrombocytosis (Acute) Lactic acidosis (Acute) Transaminitis (Acute) Abscess of right groin (Resolved) Hyponatremia (Resolved) MRSA bacteremia (Resolved) 1. Severe sepsis/staph aureus bacteremia(1 out of 2 blood cultures), improved Suspected multifactorial in etiology, On IV vancomycin and Zosyn 2d-echo shows EF of 55 to 60%, no valvular lesions Infectious disease consulted 2. Acute on chronic anemia, Sonido secondary to hemodilution, status post packed RBC Hemoglobin is 7.8, will continue to monitor, will transfuse less than 7 We will continue to monitor 3. Hypovolemic hyponatremia, fluctuating TSH is normal, will continue to trend 4. Hyperkalemia, resolved 5. 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 Postop day 1 status post excision of sacral pressure sores, partial ostectomy Pain is fairly controlled, continue to monitor, follow-up on plastic surgery recommendations 7. Hypertension, pressure is relatively low, will continue to monitor, hold off resuming antihypertensives now 8. Moderate malnutrition, slot ambassador consulted, on supplements 9. Anal CA status post colostomy 10. DVT prophylaxis with Lovenox subcu Inpatient E&M: 96750 Subs Hosp L2
[2020-04-18] MEDS: Acetaminophen 325 MG Tablet 650 MG PO ×2 (12:18→23:29)
[2020-04-18] MEDS: 0.9% Saline Lock 10 ML Syringe IV ×2 (12:41→22:22)
--- NOTE | 2020-04-18 13:25 | PCM.PN.SRG ---
Patient Problems: Active and Suspected Problems Severe sepsis (Acute) Hyponatremia (Acute) Thrombocytosis (Acute) Lactic acidosis (Acute) Transaminitis (Acute) Malnutrition (Suspected) Subjective: Postop #1 Patient is resting comfortably. - Physical Exam Vitals/I&O's: Vital Signs Temp Pulse Resp BP Pulse Ox 98.2 F 61 18 157/85 H 95 04/18/20 08:40 04/18/20 11:18 04/18/20 08:40 04/18/20 08:40 04/18/20 08:40 Oxygen Flow Rate (L/min) 1 Oxygen Delivery Method Room Air Weight: 201 lb 0.985 oz Body Mass Index (BMI) 31.4 Intake and Output for Last 24 Hours 04/16/20 04/17/20 04/18/20 23:59 23:59 23:59 Intake Total 2280 / 2280 1151.00 / 1301.00 708 / 708 Output Total 3500 / 4500 4125 / 4925 1450 / 1450 Balance -1220 / -2220 -2974.00 / -3624.00 -742 / -742 General: Alert, Oriented x3 HEENT: PERRLA, EOMI Oral: Moist Mucosa Neck: Supple Abdomen: Soft, Non-Distended Skin: Ulcer/ Wound - pressure sores are stable. No active bleeding noted. Redressed with Dakin's dressing changes. Neurological: Cranial nerves II-XII grossly intact Psych/Mental Status: Normal Affect, Appropriate Microbiology Past 72 Hours 04/17/20 14:57 Bone - Sacral Bone Gram Stain - Final 04/17/20 14:57 Bone - Sacral Bone Wound Culture - Preliminary Gram negative jesus Staphylococcus species 04/17/20 14:57 Tissue - Sacral Gram Stain - Final 04/17/20 14:57 Tissue - Sacral Wound Culture - Preliminary 04/17/20 14:57 Bone - Ischial Bone Gram Stain - Final 04/17/20 14:57 Bone - Ischial Bone Wound Culture - Preliminary Mixed Gram Pos & Gram Neg Org 04/17/20 14:57 Tissue - Ischial Pressure Sore Gram Stain - Final 04/17/20 14:57 Tissue - Ischial Pressure Sore Wound Culture - Preliminary Gram negative jesus Gram negative jesus#2 Staphylococcus species 04/17/20 14:57 Bone - Ischium Gram Stain - Final 04/17/20 14:57 Bone - Ischium Wound Culture - Preliminary Gram negative jesus Gram negative jesus#2 Staphylococcus species 04/17/20 14:57 Tissue - Ischial Pressure Sore Gram Stain - Final 04/17/20 14:57 Tissue - Ischial Pressure Sore Wound Culture - Preliminary Gram negative jesus Gram negative jesus#2 Staphylococcus species 04/15/20 11:08 Urine Catheter - Walker Urine Culture - Preliminary Escherichia coli Proteus mirabilis 04/15/20 10:45 Blood Culture (Wb) - Left Forearm Blood Culture - Preliminary Meth. resistant Staph. aureus 04/16/20 09:35 Blood Culture (Wb) - Anticubital Left Blood Culture - Preliminary No growth in 48 hours. 04/15/20 10:45 Blood Culture (Wb) - Left Hand Blood Culture - Preliminary No growth in 48 hours. 04/17/20 01:50 Mucosa - Nose SARS-CoV-2 Antigen (Rapid) - Final Laboratory Results 04/18/20 05:30: WBC 12.3 H, RBC 3.27 L, Hgb 7.8 L, Hct 25.2 L, MCV 77.1 L, MCH 23.9 L, MCHC 31.0 L D, RDW Std Deviation 46.5 H, RDW Coeff of Rosendo 16.4 H, Plt Count 570 H, MPV 7.5, Immature Gran % (Auto) 2.000 H, Neut % (Auto) 79.3 H, Lymph % (Auto) 9.8 L, [place] % (Auto) 8.6, Eos % (Auto) 0.2, Baso % (Auto) 0.1, Absolute Neuts (auto) 9.8 H, Absolute Lymphs (auto) 1.20, Nucleated RBC % 0 04/18/20 05:30: Sodium 125 L, Potassium 4.5, Chloride 90 L, Carbon Dioxide 30.0, Anion Gap 5, BUN 13, Creatinine 0.42 L, Estim Creat Clear Calc 67.94, Est GFR (MDRD) Af Amer 262, Est GFR (MDRD) Non-Af 216, BUN/Creatinine Ratio 31.0 H, Glucose 91, Calcium 9.3 Current Medications Acetaminophen (Acetaminophen 325 Mg Tablet) 650 mg PO Q6H PRN PRN PRN Reason: Pain Score 1-10/Temp > 100.7 F Last Admin: 04/18/20 12:18 Dose: 650 mg Documented by: Al Hydroxide/Mg Hydroxide (Mag Hydrox/Al Hydrox/Simeth 30 Ml Udc) 30 ml PO Q6H PRN PRN PRN Reason: Gastric Burning Albuterol Sulfate (Albuterol 2.5 Mg/3 Ml Vial.Neb.) 2.5 mg INHALATION Q2H PRN PRN PRN Reason: SOB/Wheezing Amlodipine Besylate (Amlodipine 5 Mg Tablet) 5 mg PO DAILY [facility] Last Admin: 04/18/20 09:27 Dose: 5 mg Documented by: Aspirin (Aspirin E.C. 81 Mg Tablet) 81 mg PO DAILY@0800 [facility] Last Admin: 04/18/20 09:23 Dose: 81 mg Documented by: Bupropion HCl (Bupropion (Xl) 300 Mg Tablet.Xl) 300 mg PO QHS [facility] Last Admin: 04/17/20 21:07 Dose: 300 mg Documented by: Diphenhydramine HCl (Diphenhydramine 25 Mg Capsule) 25 mg PO Q6H PRN PRN PRN Reason: ITCHING Docusate Sodium (Docusate Sodium 100 Mg Capsule) 200 mg PO BID [facility] Last Admin: 04/18/20 09:24 Dose: Not Given Documented by: Ezetimibe (Ezetimibe 10 Mg Tablet) 10 mg PO QHS [facility] Last Admin: 04/17/20 21:07 Dose: 10 mg Documented by: Enoxaparin Sodium (Enoxaparin 40 Mg/0.4 Ml Syringe) 40 mg SC DAILY [facility] Last Admin: 04/18/20 09:26 Dose: 40 mg Documented by: Escitalopram Oxalate (Escitalopram Oxalate 10 Mg Tablet) 10 mg PO DAILY [facility] Last Admin: 04/18/20 09:26 Dose: 10 mg Documented by: Ferrous Gluconate (Ferrous Gluconate 324 Mg Tablet) 324 mg PO BIDCM [facility] Last Admin: 04/18/20 09:24 Dose: 324 mg Documented by: Fluticasone Propionate (Fluticasone 0.05% 1 [place] Nasal.Sry) 1 spray NASAL QHS [facility] Last Admin: 04/17/20 21:07 Dose: 1 spray Documented by: Gabapentin (Gabapentin 600 Mg Tablet) 600 mg PO TID [facility] Last Admin: 04/18/20 05:25 Dose: 600 mg Documented by: Guaifenesin (Guaifenesin 10 Ml Udc (200mg/10ml)) 5 ml PO Q6H PRN PRN PRN Reason: COUGH Hydromorphone HCl (Hydromorphone 0.5 Mg/0.5 Ml Syringe) 0.5 mg IV Q4H PRN PRN PRN Reason: BREAKTHROUGH Pain Score 6-10 Last Admin: 04/18/20 12:17 Dose: 0.5 mg Documented by: Vancomycin IV Pharmacy to Dose (1 ea/ Sodium Chloride) 500 mls @ 250 mls/hr IV PRN PRN; Protocol PRN Reason: Rx to Dose Piperacillin Sod/Tazobactam (Sod 3.375 gm/ Sodium Chloride) 50 mls @ 12.5 mls/hr IV Q8 [facility] Last Infusion: 04/18/20 09:25 Dose: Infused Documented by: Vancomycin HCl 1,250 mg/ (Sodium Chloride) 275 mls @ 167 mls/hr IV Q12H [facility] Last Infusion: 04/18/20 10:57 Dose: Infused Documented by: Sodium Chloride () 250 mls @ 15 mls/hr IV .[id number] PRN PRN Reason: Saline Flush Last Infusion: 04/18/20 05:25 Dose: 0 mls/hr Documented by: Sodium Chloride () 250 mls @ 15 mls/hr IV .[id number] PRN PRN Reason: Additional IVPB Infusion Last Infusion: 04/17/20 16:35 Dose: Infused Documented by: Ipratropium [place] (Ipratropium 0.5 Mg/2.5 Ml Solution) 0.5 mg INHALATION Q6HWA.RT [facility] Last Admin: 04/18/20 07:05 Dose: 0.5 mg Documented by: Melatonin (Melatonin 3 Mg Tablet) 3 mg PO QHS PRN PRN PRN Reason: INSOMNIA Multivitamins (Multivitamins,Therapeutic Tablet) [facility] Last Admin: 04/18/20 09:23 Dose: 1 tablet Documented by: Nutritional Formula (Nutritional Supplement (Chuy) Packet) 1 packet PO DAILY [facility] Last Admin: 04/18/20 09:25 Dose: 1 packet Documented by: Nutritional Formula (Lactose Free) (Ensure Enlive 120 Ml Liquid) 120 ml PO 4X/DAY [facility] Last Admin: 04/18/20 09:25 Dose: Not Given Documented by: Ondansetron HCl (Ondansetron 4 Mg/2 Ml Vial) 4 mg IV Q8H PRN PRN PRN Reason: NAUSEA/VOMITING Oxybutynin Chloride (Oxybutynin 5 Mg Tablet) 5 mg PO BID [facility] Last Admin: 04/18/20 09:25 Dose: 5 mg Documented by: Oxycodone HCl (Oxycodone Cr 20 Mg Tablet) 20 mg PO Q12 [facility] Last Admin: 04/18/20 09:32 Dose: 20 mg Documented by: Oxycodone HCl (Oxycodone 5 Mg Tablet) 10 mg PO Q6H PRN PRN PRN Reason: Pain Score 6-10 Last Admin: 04/18/20 00:47 Dose: 10 mg Documented by: Pantoprazole Sodium (Pantoprazole Sodium 40 Mg Tablet) 40 mg PO DAILY [facility] Last Admin: 04/18/20 09:22 Dose: 40 mg Documented by: Polyethylene Glycol (Polyethylene Glycol 3350 17 Gm Packet) 17 gm PO DAILY [facility] Last Admin: 04/18/20 09:27 Dose: 17 gm Documented by: Senna/Docusate Sodium (Senna/Docusate Sodium 1 Tablet) 2 tablet PO BID PRN PRN Reason: Constipation Sodium Chloride (0.9% Saline Lock 10 Ml Syringe) 10 - 40 ml IV UD PRN PRN Reason: SALINE FLUSH Last Admin: 04/18/20 12:41 Dose: 10 ml Documented by: Sodium Hypochlorite (Dakin's Venessa Half Strength (=0.25%)) 1 applic TOPICAL BID [facility]; Protocol Last Admin: 04/18/20 09:25 Dose: Not Given Documented by: Tizanidine HCl (Tizanidine Hcl 2 Mg Tablet) 4 mg PO Q8H PRN PRN PRN Reason: SPASMS Medical Necessity - Tobacco Use Smoking Status: Former smoker Assessment/Plan All Active Problems Severe sepsis (Acute) Hyponatremia (Acute) Thrombocytosis (Acute) Lactic acidosis (Acute) Transaminitis (Acute) Abscess of right groin (Resolved) Hyponatremia (Resolved) MRSA bacteremia (Resolved) 1. Recurrent right ischial pressure sore, Stage IV. 2. Sepsis. 3. 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 4. Osteomyelitis. 5. MRSA. 6. Left ischial pressure sore, Stage IV. 7. Sacral pressure sore, Stage IV. 8. History of anal CA treated with chemotherapy and radiation therapy. 9. Anemia of chronic disease. 10. UTI. Pressure sores are stable. No active bleeding noted. Redressed with Dakin's dressing changes. Operative cultures show Gram negative rods and Staphylococcus species thus far. Continue Vancomycin and Zosyn. Urine culture showed E coli and Proteus mirabilis. Blood culture showed MRSA. Prealbumin was 10.1. Encourage nutritional supplementation with protein to help the healing process. Hgb was 7.8. Has anemia of chronic disease. Operative blood loss was expected. Continue Iron supplementation. When medically stable, may return back to the [facility]. [facility].
[2020-04-18] MEDS: Docusate Sodium 100 MG Capsule 200 MG PO (21:22)
[2020-04-18] MEDS: buPROPion (XL) 300 MG TABLET.XL PO (21:22)
[2020-04-18] MEDS: Fluticasone 0.05% 1 SPRAY NASAL.SRY NASAL (21:22)
[2020-04-18] MEDS: Ezetimibe 10 MG Tablet PO (21:23)
[2020-04-18 21:53] LABS: Vancomycin, Trough Level 19.1 ug/mL (5.0-15.0)
--- NOTE | 2020-04-18 22:00 | NURSING ---
2200-pts vel howard 19.1, spoke with timothy from pharmacy made aware pts vanco level 19.1. states ok to give vanco.
--- NOTE | 2020-04-18 22:13 | PCM.RX.CS ---
Consult Pharmacy has been consulted to manage selected antiobiotic: Vancomycin Type of Consult: Follow-up Suspected Infection: Sepsis Prior Doses of Antibiotics Received/Current Regimen: Medications Vancomycin HCl 1,250 mg/ (Sodium Chloride) 275 mls @ 167 mls/hr IV Q12H [facility] Last Admin: 04/18/20 22:06 Dose: 167 mls/hr Labs: Sodium 125 mmol/L (136-145) L 04/18/20 05:30 Potassium 4.5 mmol/L (3.5-5.1) 04/18/20 05:30 Chloride 90 mmol/L (98-107) L 04/18/20 05:30 Carbon Dioxide 30.0 mmol/L (21.0-32.0) 04/18/20 05:30 Anion Gap 5 (5-15) 04/18/20 05:30 BUN 13 mg/dL (7-18) 04/18/20 05:30 Creatinine 0.42 mg/dL (0.70-1.30) L 04/18/20 05:30 Est GFR (MDRD) Af Amer 262 mL/min (>60) 04/18/20 05:30 Est GFR (MDRD) Non-Af 216 mL/min (>60) 04/18/20 05:30 BUN/Creatinine Ratio 31.0 RATIO (10-20) H 04/18/20 05:30 Glucose 91 mg/dL (74-106) 04/18/20 05:30 Vancomycin Trough 19.1 ug/mL (5.0-15.0) H 04/18/20 21:03 Microbiology: Microbiology 04/17/20 14:57 Bone - Sacral Bone Gram Stain - Final 04/17/20 14:57 Bone - Sacral Bone Wound Culture - Preliminary Gram negative jesus Staphylococcus species 04/17/20 14:57 Tissue - Sacral Gram Stain - Final 04/17/20 14:57 Tissue - Sacral Wound Culture - Preliminary 04/17/20 14:57 Bone - Ischial Bone Gram Stain - Final 04/17/20 14:57 Bone - Ischial Bone Wound Culture - Preliminary Mixed Gram Pos & Gram Neg Org 04/17/20 14:57 Tissue - Ischial Pressure Sore Gram Stain - Final 04/17/20 14:57 Tissue - Ischial Pressure Sore Wound Culture - Preliminary Gram negative jesus Gram negative jesus#2 Staphylococcus species 04/17/20 14:57 Bone - Ischium Gram Stain - Final 04/17/20 14:57 Bone - Ischium Wound Culture - Preliminary Gram negative jesus Gram negative jesus#2 Staphylococcus species 04/17/20 14:57 Tissue - Ischial Pressure Sore Gram Stain - Final 04/17/20 14:57 Tissue - Ischial Pressure Sore Wound Culture - Preliminary Gram negative jesus Gram negative jesus#2 Staphylococcus species 04/15/20 11:08 Urine Catheter - Walker Urine Culture - Preliminary Escherichia coli Proteus mirabilis 04/15/20 10:45 Blood Culture (Wb) - Left Forearm Blood Culture - Preliminary Meth. resistant Staph. aureus 04/16/20 09:35 Blood Culture (Wb) - Anticubital Left Blood Culture - Preliminary No growth in 48 hours. 04/15/20 10:45 Blood Culture (Wb) - Left Hand Blood Culture - Preliminary No growth in 48 hours. 04/17/20 01:50 Mucosa - Nose SARS-CoV-2 Antigen (Rapid) - Final Weight used for dosin.2 kg Estimated Creatinine Clearance: 68 Goal Trough: 15-20 mcg/mL Pharmacy Plan for Drug Dosing: Vancomycin trough level of 19.1 was within target range of 15-20. Will continue same dosing, and re-draw trough 04/20/20. Pharmacy Service will continue to monitor and adjust dosing as required. Follow-Up Labs: Trough Vancomycin Labs to be done on [date and time ordered]: 04/20/20 @0900
[2020-04-19] VITALS (9 sets, daily range): BP systolic 108–144; BP diastolic 50–93; PULSE 96–112; RESP 16–20; TEMP 37.1–39.3; O2SAT 91–96
[2020-04-19] MEDS: oxyCODONE 5 MG Tablet 10 MG PO ×4 (01:48→20:44)
[2020-04-19] MEDS: HYDROmorphone 0.5 MG/0.5 ML SYRINGE IV ×4 (02:59→17:50)
[2020-04-19] MEDS: Gabapentin 600 MG Tablet PO ×3 (05:35→22:39)
[2020-04-19] MEDS: Acetaminophen 325 MG Tablet 650 MG PO ×2 (05:35→17:53)
[2020-04-19 05:49] LABS: Absolute Lymphocyte Count 1.91 X10^3/uL (0.83-4.51); Absolute Neutrophil Count 12.1 X10^3/uL (2.0-7.7); Basophil# 0.03 X10^3/uL; Basophil% 0.2 % (0-1); Eosinophil# 0.21 X10^3/uL; Eosinophils% 1.3 % (0-5); Hematocrit 26.3 % (40-54); Hemoglobin 8.3 g/dL (13.0-16.5); Lymphocyte # 1.91 X10^3/ul (4.0); Lymphocyte % 11.7 % (19-41); Mean Corp Hgb Conc 31.6 g/dL (32-36); Mean Corpuscular Hgb 23.9 pg (27.0-32.0); Mean Corpuscular Volume 75.6 fL (80-94); Mean Platelet Vol. 7.4 fl (6.2-12.0); Monocyte# 1.72 X10^3/uL; Monocyte% 10.5 % (0-10); NRBC Flagged by Analyzer 0 % (0-5); Neutrophil # 12.12 X10^3/uL (2.7-7.7); Neutrophil % 74.3 % (47-70); POSITIVE COUNT YES; POSITIVE DIFFERENTIAL YES; RBC Distribution Width CV 16.4 % (11.6-14.6); RBC Distribution Width SD 44.9 fl (35.1-43.9); Red Blood Count 3.48 M/mm3 (4.6-6.2); White Blood Count 16.3 K/mm3 (4.4-11.0)
[2020-04-19 06:47] LABS: Differential Indicated SCAN CRITERIA MET; Platelet Count 889 K/mm3 (150-450)
[2020-04-19 06:48] LABS: Differential Comment SCANNED; Hypochromasia 2+; Platelet Estimate MKD INC (ADEQ); Target Cells 2+
[2020-04-19] MEDS: 0.9% Saline Lock 10 ML Syringe IV (07:03)
[2020-04-19 07:09] LABS: Anion Gap 9 (5-15); BUN 13 mg/dL (7-18); BUN/Creat Ratio 31.3 RATIO (10-20); Calcium,Total 8.2 mg/dL (8.5-10.1); Chloride 90 mmol/L (98-107); Creatinine, Serum 0.42 mg/dL (0.70-1.30); EST Glomerular Filtration Rate 219 mL/min (>60); Est Glom Filt Rate - Afr Amer 265 mL/min (>60); Estimated Creatinine Clearance 67.94 ml/min; Glucose 83 mg/dL (74-106); Potassium 5.4 mmol/L (3.5-5.1); Prealbumin 10.1 mg/dL (20.0-40.0); Sodium Level 124 mmol/L (136-145)
[2020-04-19] MEDS: Ipratropium 0.5 MG/2.5 ML SOLUTION INHALATION ×3 (07:42→19:25)
[2020-04-19] MEDS: 0.9% Normal Saline 1,000 ML 75 ML IV (08:21)
[2020-04-19] MEDS: Polyethylene Glycol 3350 17 GM PACKET PO (10:24)
[2020-04-19] MEDS: Docusate Sodium 100 MG Capsule 200 MG PO ×2 (10:24→22:38)
[2020-04-19] MEDS: Multivitamins,Therapeutic Tablet 1 TABLET PO (10:25)
[2020-04-19] MEDS: Escitalopram Oxalate 10 MG Tablet PO (10:25)
[2020-04-19] MEDS: Oxybutynin 5 MG Tablet PO ×2 (10:25→22:39)
[2020-04-19] MEDS: amLODIPine 5 MG Tablet PO (10:25)
[2020-04-19] MEDS: Aspirin E.C. 81 MG Tablet PO (10:25)
[2020-04-19] MEDS: Pantoprazole Sodium 40 MG Tablet PO (10:25)
[2020-04-19] MEDS: Ferrous Gluconate 324 MG Tablet PO ×2 (10:25→17:52)
[2020-04-19] MEDS: Enoxaparin 40 MG/0.4 ML Syringe SC (10:26)
--- NOTE | 2020-04-19 12:40 | PCM.PN.HOSP ---
Patient Problems: Active and Suspected Problems Severe sepsis (Acute) Hyponatremia (Acute) Thrombocytosis (Acute) Lactic acidosis (Acute) Transaminitis (Acute) Malnutrition (Suspected) Reason for Visit: Follow-up on severe sepsis/hyponatremia/hyperkalemia/foot ulcer/gangrene/sacral ulcers Subjective: Patient was seen and examined. Complains of pain in the sacral region. No fevers or chills. Objective: Physical exam: General: Alert, Oriented x3, Cooperative, frail, cachetic CVS: HS I +II, regular, no murmurs RESP: Clinically clear to auscultation Extremities: No edema, diminished peripheral Pulses Skin: Ulcer/ Wound - Dry stable unchanged eschars to right distal hallux and dorsal second toe. Dry stable unchanged eschars to posterior heels. Skin is atrophied. Musculoskeletal: Muscle Wasting Neurological: Sensory exam intact to light touch and pain Psych/Mental Status: Normal Affect, Appropriate Vitals/I&O's: Vital Signs Temp Pulse Resp BP Pulse Ox 98.7 F 96 18 108/50 L 96 04/19/20 08:15 04/19/20 08:15 04/19/20 08:15 04/19/20 08:15 04/19/20 08:15 Oxygen Flow Rate (L/min) 1 Oxygen Delivery Method Room Air Weight: 91.1 kg Body Mass Index (BMI) 31.4 Intake and Output for Last 24 Hours 04/17/20 04/18/20 04/19/20 23:59 23:59 23:59 Intake Total 1151.00 / 1301.00 1733 / 1733 861.25 / 861.25 Output Total 4125 / 4925 1900 / 2350 2950 / 2950 Balance -2974.00 / -3624.00 -167 / -617 -2088.75 / -2088.75 Microbiology Past 72 Hours 04/17/20 14:57 Bone - Ischial Bone Gram Stain - Final 04/17/20 14:57 Bone - Ischial Bone Wound Culture - Preliminary Gram negative jesus Gram negative jesus#2 Gram negative jesus#3 GNR lactose flare maker Staphylococcus aureus 04/17/20 14:57 Bone - Sacral Bone Gram Stain - Final 04/17/20 14:57 Bone - Sacral Bone Wound Culture - Preliminary Gram negative jesus Gram negative jesus#2 Staphylococcus aureus 04/17/20 14:57 Tissue - Sacral Gram Stain - Final 04/17/20 14:57 Tissue - Sacral Wound Culture - Preliminary Gram negative jesus 04/17/20 14:57 Tissue - Ischial Pressure Sore Gram Stain - Final 04/17/20 14:57 Tissue - Ischial Pressure Sore Wound Culture - Preliminary Gram negative jesus Gram negative jesus#2 Staphylococcus aureus 04/17/20 14:57 Bone - Ischium Gram Stain - Final 04/17/20 14:57 Bone - Ischium Wound Culture - Preliminary Gram negative jesus Gram negative jesus#2 Staphylococcus aureus 04/17/20 14:57 Tissue - Ischial Pressure Sore Gram Stain - Final 04/17/20 14:57 Tissue - Ischial Pressure Sore Wound Culture - Preliminary Gram negative jesus Gram negative jesus#2 Staphylococcus aureus 04/15/20 11:08 Urine Catheter - Walker Urine Culture - Final Escherichia coli Proteus mirabilis 04/15/20 10:45 Blood Culture (Wb) - Left Forearm Blood Culture - Preliminary Meth. resistant Staph. aureus 04/16/20 09:35 Blood Culture (Wb) - Anticubital Left Blood Culture - Preliminary No growth in 48 hours. 04/15/20 10:45 Blood Culture (Wb) - Left Hand Blood Culture - Preliminary No growth in 48 hours. 04/17/20 01:50 Mucosa - Nose SARS-CoV-2 Antigen (Rapid) - Final Laboratory Results 04/18/20 21:03: Vancomycin Trough 19.1 H 04/19/20 05:05: WBC 16.3 H, RBC 3.48 L, Hgb 8.3 L, Hct 26.3 L, MCV 75.6 L, MCH 23.9 L, MCHC 31.6 L, RDW Std Deviation 44.9 H, RDW Coeff of Ros[place] 16.4 H, Plt Count 889 H*, MPV 7.4, Immature Gran % (Auto) 2.000 H, Neut % (Auto) 74.3 H, Lymph % (Auto) 11.7 L, [place] % (Auto) 10.5 H, Eos % (Auto) 1.3, Baso % (Auto) 0.2, Absolute Neuts (auto) 12.1 H, Absolute Lymphs (auto) 1.91, Nucleated RBC % 0, Differential Comment SCANNED, Diff Path Review May foll, Platelet Estimate MKD INC, Hypochromasia 2+, Target Cells 2+ 04/19/20 05:05: Sodium 124 L, Potassium 5.4 H, Chloride 90 L, Carbon Dioxide 25.0, Anion Gap 9, BUN 13, Creatinine 0.42 L, Estim Creat Clear Calc 67.94, Est GFR (MDRD) Af Amer 265, Est GFR (MDRD) Non-Af 219, BUN/Creatinine Ratio 31.3 H, Glucose 83, Calcium 8.2 L, Prealbumin 10.1 L Current Medications Acetaminophen (Acetaminophen 325 Mg Tablet) 650 mg PO Q6H PRN PRN PRN Reason: Pain Score 1-10/Temp > 100.7 F Last Admin: 04/19/20 05:35 Dose: 650 mg Documented by: Al Hydroxide/Mg Hydroxide (Mag Hydrox/Al Hydrox/Simeth 30 Ml Udc) 30 ml PO Q6H PRN PRN PRN Reason: Gastric Burning Albuterol Sulfate (Albuterol 2.5 Mg/3 Ml Vial.Neb.) 2.5 mg INHALATION Q2H PRN PRN PRN Reason: SOB/Wheezing Amlodipine Besylate (Amlodipine 5 Mg Tablet) 5 mg PO DAILY [facility] Last Admin: 04/19/20 10:25 Dose: 5 mg Documented by: Aspirin (Aspirin E.C. 81 Mg Tablet) 81 mg PO DAILY@0800 [facility] Last Admin: 04/19/20 10:25 Dose: 81 mg Documented by: Bupropion HCl (Bupropion (Xl) 300 Mg Tablet.Xl) 300 mg PO QHS [facility] Last Admin: 04/18/20 21:22 Dose: 300 mg Documented by: Diphenhydramine HCl (Diphenhydramine 25 Mg Capsule) 25 mg PO Q6H PRN PRN PRN Reason: ITCHING Docusate Sodium (Docusate Sodium 100 Mg Capsule) 200 mg PO BID [facility] Last Admin: 04/19/20 10:24 Dose: 200 mg Documented by: Ezetimibe (Ezetimibe 10 Mg Tablet) 10 mg PO QHS [facility] Last Admin: 04/18/20 21:23 Dose: 10 mg Documented by: Enoxaparin Sodium (Enoxaparin 40 Mg/0.4 Ml Syringe) 40 mg SC DAILY [facility] Last Admin: 04/19/20 10:26 Dose: 40 mg Documented by: Escitalopram Oxalate (Escitalopram Oxalate 10 Mg Tablet) 10 mg PO DAILY [facility] Last Admin: 04/19/20 10:25 Dose: 10 mg Documented by: Ferrous Gluconate (Ferrous Gluconate 324 Mg Tablet) 324 mg PO BIDCM [facility] Last Admin: 04/19/20 10:25 Dose: 324 mg Documented by: Fluticasone Propionate (Fluticasone 0.05% 1 [place] Nasal.Sry) 1 spray NASAL QHS [facility] Last Admin: 04/18/20 21:22 Dose: 1 spray Documented by: Gabapentin (Gabapentin 600 Mg Tablet) 600 mg PO TID [facility] Last Admin: 04/19/20 05:35 Dose: 600 mg Documented by: Guaifenesin (Guaifenesin 10 Ml Udc (200mg/10ml)) 5 ml PO Q6H PRN PRN PRN Reason: COUGH Hydromorphone HCl (Hydromorphone 0.5 Mg/0.5 Ml Syringe) 0.5 mg IV Q4H PRN PRN PRN Reason: BREAKTHROUGH Pain Score 6-10 Last Admin: 04/19/20 11:27 Dose: 0.5 mg Documented by: Vancomycin IV Pharmacy to Dose (1 ea/ Sodium Chloride) 500 mls @ 250 mls/hr IV PRN PRN; Protocol PRN Reason: Rx to Dose Piperacillin Sod/Tazobactam (Sod 3.375 gm/ Sodium Chloride) 50 mls @ 12.5 mls/hr IV Q8 [facility] Last Infusion: 04/19/20 09:35 Dose: Infused Documented by: Vancomycin HCl 1,250 mg/ (Sodium Chloride) 275 mls @ 167 mls/hr IV Q12H [facility] Last Admin: 04/19/20 10:30 Dose: 167 mls/hr Documented by: Sodium Chloride () 250 mls @ 15 mls/hr IV .[id number] PRN PRN Reason: Saline Flush Last Infusion: 04/19/20 09:35 Dose: 15 mls/hr Documented by: Sodium Chloride () 250 mls @ 15 mls/hr IV .[id number] PRN PRN Reason: Additional IVPB Infusion Last Infusion: 04/17/20 16:35 Dose: Infused Documented by: Sodium Chloride () 1,000 mls @ 75 mls/hr IV .[id number] [facility] Stop: 04/19/20 21:04 Last Infusion: 04/19/20 10:30 Dose: 0 mls/hr Documented by: Ipratropium [place] (Ipratropium 0.5 Mg/2.5 Ml Solution) 0.5 mg INHALATION Q6HWA.RT [facility] Last Admin: 04/19/20 07:42 Dose: 0.5 mg Documented by: Melatonin (Melatonin 3 Mg Tablet) 3 mg PO QHS PRN PRN PRN Reason: INSOMNIA Multivitamins ([facility]itamins,Therapeutic Tablet) [facility] Admin: 04/19/20 10:25 Dose: 1 tablet Documented by: Nutritional Formula (Nutritional Supplement (Chuy) Packet) 1 packet PO DAILY [facility] Last Admin: 04/19/20 10:18 Dose: Not Given Documented by: Nutritional Formula (Lactose Free) (Ensure Enlive 120 Ml Liquid) 120 ml PO 4X/DAY [facility] Last Admin: 04/19/20 10:24 Dose: 120 ml Documented by: Ondansetron HCl (Ondansetron 4 Mg/2 Ml Vial) 4 mg IV Q8H PRN PRN PRN Reason: NAUSEA/VOMITING Oxybutynin Chloride (Oxybutynin 5 Mg Tablet) 5 mg PO BID [facility] Last Admin: 04/19/20 10:25 Dose: 5 mg Documented by: Oxycodone HCl (Oxycodone Cr 20 Mg Tablet) 20 mg PO Q12 [facility] Last Admin: 04/19/20 10:24 Dose: 20 mg Documented by: Oxycodone HCl (Oxycodone 5 Mg Tablet) 10 mg PO Q6H PRN PRN PRN Reason: Pain Score 6-10 Last Admin: 04/19/20 08:17 Dose: 10 mg Documented by: Pantoprazole Sodium (Pantoprazole Sodium 40 Mg Tablet) 40 mg PO DAILY [facility] Last Admin: 04/19/20 10:25 Dose: 40 mg Documented by: Polyethylene Glycol (Polyethylene Glycol 3350 17 Gm Packet) 17 gm PO DAILY [facility] Last Admin: 04/19/20 10:24 Dose: 17 gm Documented by: Senna/Docusate Sodium (Senna/Docusate Sodium 1 Tablet) 2 tablet PO BID PRN PRN Reason: Constipation Sodium Chloride (0.9% Saline Lock 10 Ml Syringe) 10 - 40 ml IV UD PRN PRN Reason: SALINE FLUSH Last Admin: 04/19/20 07:03 Dose: 10 ml Documented by: Tizanidine HCl (Tizanidine Hcl 2 Mg Tablet) 4 mg PO Q8H PRN PRN PRN Reason: SPASMS Medical Necessity - Tobacco Use Smoking Status: Former smoker Assessment/Plan All Active Problems Severe sepsis (Acute) Hyponatremia (Acute) Thrombocytosis (Acute) Lactic acidosis (Acute) Transaminitis (Acute) Abscess of right groin (Resolved) Hyponatremia (Resolved) MRSA bacteremia (Resolved) 1. Severe sepsis/staph aureus bacteremia (1 out of 2 blood cultures), secondary to infected ulcers on sacrum and heels, appears resolved. Suspected multifactorial in etiology; wound cultures growing gram-negative jesus, staph aureus On IV vancomycin and Zosyn 2d-echo shows EF of 55 to 60%, no valvular lesions Infectious disease consulted 2. Acute on chronic anemia, likely secondary to hemodilution, status post packed RBC Hemoglobin is 8.3, will continue to monitor; will transfuse less than 7 We will continue to monitor 3. Hypovolemic hyponatremia, fluctuating TSH is normal, will continue to trend 4. Hyperkalemia, resolved 5. 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 POD #2 status post excision of sacral pressure sores, partial ostectomy Pain is fairly controlled, continue to monitor, follow-up on plastic surgery recommendations 7. Hypertension, pressure is relatively low, will continue to monitor, hold off resuming antihypertensives now 8. Moderate malnutrition, male infertility specialist consulted, on supplements 9. Anal CA status post colostomy 10. DVT prophylaxis with Lovenox subcu 11. Disposition: DC to SNF probably tomorrow; when antibiotics are finalized Inpatient E&M: [id number] Subs Hosp L3
[2020-04-19] MEDS: Ezetimibe 10 MG Tablet PO (22:39)
[2020-04-19] MEDS: buPROPion (XL) 300 MG TABLET.XL PO (22:39)
[2020-04-19] MEDS: Fluticasone 0.05% 1 SPRAY NASAL.SRY NASAL (22:44)
[2020-04-20] VITALS (15 sets, daily range): BP systolic 93–125; BP diastolic 48–61; PULSE 89–113; RESP 16–24; TEMP 37.2–38.9; O2SAT 90–100
[2020-04-20] MEDS: Acetaminophen 325 MG Tablet 650 MG PO ×3 (02:43→21:36)
[2020-04-20] MEDS: oxyCODONE 5 MG Tablet 10 MG PO ×3 (02:44→23:00)
[2020-04-20 05:56] LABS: Absolute Lymphocyte Count 1.58 X10^3/uL (0.83-4.51); Basophil# 0.05 X10^3/uL; Basophil% 0.3 % (0-1); Eosinophil# 0.12 X10^3/uL; Eosinophils% 0.8 % (0-5); Hematocrit 26.5 % (40-54); Hemoglobin 8.3 g/dL (13.0-16.5); Lymphocyte # 1.58 X10^3/ul (4.0); Lymphocyte % 9.9 % (19-41); Mean Corp Hgb Conc 31.3 g/dL (32-36); Mean Corpuscular Hgb 24.1 pg (27.0-32.0); Mean Corpuscular Volume 76.8 fL (80-94); Mean Platelet Vol. 7.3 fl (6.2-12.0); Monocyte% 11.3 % (0-10); NRBC Flagged by Analyzer 0 % (0-5); Neutrophil # 11.95 X10^3/uL (2.7-7.7); Neutrophil % 75.1 % (47-70); POSITIVE DIFFERENTIAL YES; Platelet Count 623 K/mm3 (150-450); RBC Distribution Width CV 16.4 % (11.6-14.6); RBC Distribution Width SD 46.1 fl (35.1-43.9); Red Blood Count 3.45 M/mm3 (4.6-6.2); White Blood Count 15.9 K/mm3 (4.4-11.0)
[2020-04-20 06:02] LABS: Differential Indicated SCAN CRITERIA MET
[2020-04-20] MEDS: Gabapentin 600 MG Tablet PO ×3 (06:12→21:32)
[2020-04-20 06:20] LABS: Platelet Estimate MOD INC (ADEQ)
[2020-04-20 06:29] LABS: ALB/GLOB Ratio 0.5 RATIO (0.9-2.4); AST(SGOT) 44 U/L (15-37); Alanine Aminotransfer ALT/SGPT 66 U/L (16-61); Alkaline Phosphatase 235 U/L (45-117); Anion Gap 7 (5-15); BUN 11 mg/dL (7-18); BUN/Creat Ratio 24.9 RATIO (10-20); Calcium,Total 8.2 mg/dL (8.5-10.1); Chloride 89 mmol/L (98-107); Creatinine, Serum 0.44 mg/dL (0.70-1.30); EST Glomerular Filtration Rate 204 mL/min (>60); Est Glom Filt Rate - Afr Amer 247 mL/min (>60); Estimated Creatinine Clearance 67.94 ml/min; Globulin 4.4 g/dL (2.2-4.2); Glucose 89 mg/dL (74-106); Potassium 4.4 mmol/L (3.5-5.1); Protein, Total 6.4 g/dL (6.4-8.2); Sodium Level 124 mmol/L (136-145)
[2020-04-20] MEDS: Ipratropium 0.5 MG/2.5 ML SOLUTION INHALATION ×2 (06:59→19:29)
--- NOTE | 2020-04-20 07:30 | RAD_ITS ---
STUDY: X-RAY CHEST REASON FOR EXAM: Male, 65 years old. fever TECHNIQUE: AP COMPARISON: 04/15/2020 FINDINGS: The lungs demonstrate no focal consolidative changes.. There is no demonstrated pleural abnormality. Normal size heart. Normal mediastinum and andrea. Normal visualized pulmonary arteries. Normal visualized aortic arch and descending thoracic aorta. Normal visualized thoracic spine. Normal visualized ribs, clavicles, and shoulders. There is no demonstrated abnormality of the visualized soft tissue structures of the upper abdomen. RAD/Chest 1 View (Portable) IMPRESSION: No focal lung consolidative changes. No interval change. Electronically Signed: Parker Chawla MD at 7:54 EST Tel , Service support ,
--- NOTE | 2020-04-20 07:50 | PN_ITS ---
Patient Problems: Active and Suspected Problems Severe sepsis (Acute) Hyponatremia (Acute) Thrombocytosis (Acute) Lactic acidosis (Acute) Transaminitis (Acute) Malnutrition (Suspected) Subjective: Patient himself with no acute complaints overnight, denies any current pain or any complaints. Dressing change performed by wound RN this morning and similar to previous per discussion with her and from prior old evaluations. However patient through the evening had low-grade temperatures and became febrile as well as mildly tachycardic. Repeat chest x-ray is obtained PA and lateral with no obvious infiltrate identified. Urinalysis obtained with Walker catheter change with noted leukocyte esterase 100, urine WBCs 10-25 with 1+ urine bacteria have a recent admission urine culture was not marked but repeat culture requested. Pending 04/19/2019 1 repeat blood cultures given elevated temperatures although noted 04/18/2020 blood cultures with no growth. Infectious disease consulted and evaluated patients and based on recent ischial pressure sore and sacral tissue wound cultures change antibiotic therapy from Vanco and Zosyn to Vanco and colistin/tigecycline/Flagyl to be more aggressive. Also discussed case with podiatry who noted ongoing discussions with vascular surgery with requested LISBETH/PVR and arterial duplex ultrasound for possible future right lower extremity interventions if clinically improved by Monday. Patient also placed on isolation. Patient denies fevers, chills, nausea, emesis, abdominal pain, chest pain or dyspnea. Objective: Physical Examination: General: awake, alert, oriented x 3 and cooperative, seated upright in the medical surgical bed, no acute complaints. Skin: normal color, turgor, no icterus, cyanosis except significant wounds (wound RN pictures from recent dressing changes reviewed including left ischial and sacral regions with mild yellow slough, no drainage, periwound mild erythema although suspect likely chronic, right ischium similar appearance with yellow slough, no drainage, right heel with region of darkened eschar, dry, yellow slough, no drainage, left heel with minimal eschar, no slough and no drainage, right first through second distal toe tips with evidence of dry necrotic appearance, no drainage). HEENT: AT/NC, EOMI, PERRLA, MMM. Lungs: Diminished breath sounds, greater bases, moderate effort, no rales, ronchi or wheezing. Heart: Mildly tachycardic with regular rhythm; no gallop, rub audible. Abdomen: soft, obese, NTTP, ND, normal BS. Extremities: no cyanosis or clubbing, see skin for significant wound descriptions. Neurological: patient awake, alert, oriented x 3; cognitive function baseline intact although patient has poor insight into his medical care and significant nature of his disease process, pupils equally reactive to light and accomodation; cranial nerves II-XII grossly normal, moving all 4 extremities, no focal deficits, strength severely global decreased, some mild upper extremity tremors noted. Psychiatric: affect appears mildly fatigued otherwise normal, no acute evidence of depressive or anxiety feelings. Vitals/I&O's: Vital Signs Temp Pulse Resp BP Pulse Ox 99.9 F H 103 H 16 125/61 H 92 04/20/20 03:48 04/20/20 02:49 04/20/20 02:49 04/20/20 02:49 04/20/20 02:49 Oxygen Flow Rate (L/min) 1 Oxygen Delivery Method Room Air Weight: 200 lb 2.876 oz Body Mass Index (BMI) 31.4 Intake and Output for Last 24 Hours 04/18/20 04/19/20 04/20/20 23:59 23:59 23:59 Intake Total 1733 / 1733 2235.00 / 2235.00 103 / 103 Output Total 1900 / 2350 4300 / 4300 825 / 825 Balance -167 / -617 -2065.00 / -2065.00 -722 / -722 Microbiology Past 72 Hours 04/17/20 06:24 Blood Culture (Wb) - Left Hand Blood Culture - Preliminary No growth in 48 hours. 04/17/20 14:57 Bone - Ischial Bone Gram Stain - Final 04/17/20 14:57 Bone - Ischial Bone Wound Culture - Preliminary Gram negative jesus Gram negative jesus#2 Gram negative jesus#3 GNR lactose campaign coordinator Staphylococcus aureus 04/17/20 14:57 Bone - Sacral Bone Gram Stain - Final 04/17/20 14:57 Bone - Sacral Bone Wound Culture - Preliminary Gram negative jesus Gram negative jesus#2 Staphylococcus aureus 04/17/20 14:57 Tissue - Sacral Gram Stain - Final 04/17/20 14:57 Tissue - Sacral Wound Culture - Preliminary Gram negative jesus 04/17/20 14:57 Tissue - Ischial Pressure Sore Gram Stain - Final 04/17/20 14:57 Tissue - Ischial Pressure Sore Wound Culture - Preliminary Gram negative jesus Gram negative jesus#2 Staphylococcus aureus 04/17/20 14:57 Bone - Ischium Gram Stain - Final 04/17/20 14:57 Bone - Ischium Wound Culture - Preliminary Gram negative jesus Gram negative jesus#2 Staphylococcus aureus 04/17/20 14:57 Tissue - Ischial Pressure Sore Gram Stain - Final 04/17/20 14:57 Tissue - Ischial Pressure Sore Wound Culture - Preliminary Gram negative jesus Gram negative jesus#2 Staphylococcus aureus 04/15/20 11:08 Urine Catheter - Walker Urine Culture - Final Escherichia coli Proteus mirabilis 04/15/20 10:45 Blood Culture (Wb) - Left Forearm Blood Culture - Preliminary Meth. resistant Staph. aureus 04/16/20 09:35 Blood Culture (Wb) - Anticubital Left Blood Culture - Preliminary No growth in 48 hours. 04/15/20 10:45 Blood Culture (Wb) - Left Hand Blood Culture - Preliminary No growth in 48 hours. Laboratory Results 04/20/20 05:42: WBC 15.9 H, RBC 3.45 L, Hgb 8.3 L, Hct 26.5 L, MCV 76.8 L, MCH 24.1 L, MCHC 31.3 L, RDW Std Deviation 46.1 H, RDW Coeff of Rosendo 16.4 H, Plt Count 623 H, MPV 7.3, Immature Gran % (Auto) 2.600 H, Neut % (Auto) 75.1 H, Lymph % (Auto) 9.9 L, Sebastian % (Auto) 11.3 H, Eos % (Auto) 0.8, Baso % (Auto) 0.3, Absolute Neuts (auto) 12.0 H, Absolute Lymphs (auto) 1.58, Nucleated RBC % 0, Diff Path Review July, Platelet Estimate MOD INC 04/20/20 05:42: Sodium 124 L, Potassium 4.4, Chloride 89 L, Carbon Dioxide 28.0, Anion Gap 7, BUN 11, Creatinine 0.44 L, Estim Creat Clear Calc 67.94, Est GFR (MDRD) Af Amer 247, Est GFR (MDRD) Non-Af 204, BUN/Creatinine Ratio 24.9 H, Glucose 89, Calcium 8.2 L, Total Bilirubin 0.30, AST 44 H, ALT 66 H, Alkaline Phosphatase 235 H, Total Protein 6.4, Albumin 2.0 L, Globulin 4.4 H, Albumin/Globulin Ratio 0.5 L Current Medications Acetaminophen (Acetaminophen 325 Mg Tablet) 650 mg PO Q6H PRN PRN PRN Reason: Pain Score 1-10/Temp > 100.7 F Last Admin: 04/20/20 02:43 Dose: 650 mg Documented by: Al Hydroxide/Mg Hydroxide (Mag Hydrox/Al Hydrox/Simeth 30 Ml Udc) 30 ml PO Q6H PRN PRN PRN Reason: Gastric Burning Albuterol Sulfate (Albuterol 2.5 Mg/3 Ml Vial.Neb.) 2.5 mg INHALATION Q2H PRN PRN PRN Reason: SOB/Wheezing Amlodipine Besylate (Amlodipine 5 Mg Tablet) 5 mg PO DAILY COUNT INCLUDES THE [facility] Last Admin: 04/19/20 10:25 Dose: 5 mg Documented by: Aspirin (Aspirin E.C. 81 Mg Tablet) 81 mg PO DAILY@0800 COUNT INCLUDES THE [facility] Last Admin: 04/19/20 10:25 Dose: 81 mg Documented by: Bupropion HCl (Bupropion (Xl) 300 Mg Tablet.Xl) 300 mg PO QHS COUNT INCLUDES THE [facility] Last Admin: 04/19/20 22:39 Dose: 300 mg Documented by: Diphenhydramine HCl (Diphenhydramine 25 Mg Capsule) 25 mg PO Q6H PRN PRN PRN Reason: ITCHING Docusate Sodium (Docusate Sodium 100 Mg Capsule) 200 mg PO BID COUNT INCLUDES THE [facility] Last Admin: 04/19/20 22:38 Dose: 200 mg Documented by: Ezetimibe (Ezetimibe 10 Mg Tablet) 10 mg PO QHS COUNT INCLUDES THE [facility] Last Admin: 04/19/20 22:39 Dose: 10 mg Documented by: Enoxaparin Sodium (Enoxaparin 40 Mg/0.4 Ml Syringe) 40 mg SC DAILY COUNT INCLUDES THE [facility] Last Admin: 04/19/20 10:26 Dose: 40 mg Documented by: Escitalopram Oxalate (Escitalopram Oxalate 10 Mg Tablet) 10 mg PO DAILY COUNT INCLUDES THE [facility] Last Admin: 04/19/20 10:25 Dose: 10 mg Documented by: Ferrous Gluconate (Ferrous Gluconate 324 Mg Tablet) [facility] Last Admin: 04/19/20 17:52 Dose: 324 mg Documented by: Fluticasone Propionate (Fluticasone 0.05% 1 [place] Nasal.Sry) 1 spray NASAL QHS COUNT INCLUDES THE [facility] Last Admin: 04/19/20 22:44 Dose: 1 spray Documented by: Gabapentin (Gabapentin 600 Mg Tablet) 600 mg PO TID COUNT INCLUDES THE [facility] Last Admin: 04/20/20 06:12 Dose: 600 mg Documented by: Guaifenesin (Guaifenesin 10 Ml Udc (200mg/10ml)) 5 ml PO Q6H PRN PRN PRN Reason: COUGH Hydromorphone HCl (Hydromorphone 0.5 Mg/0.5 Ml Syringe) 0.5 mg IV Q4H PRN PRN PRN Reason: BREAKTHROUGH Pain Score 6-10 Last Admin: 04/19/20 17:50 Dose: 0.5 mg Documented by: Vancomycin IV Pharmacy to Dose (1 ea/ Sodium Chloride) 500 mls @ 250 mls/hr IV PRN PRN; Protocol PRN Reason: Rx to Dose Piperacillin Sod/Tazobactam (Sod 3.375 gm/ Sodium Chloride) 50 mls @ 12.5 mls/hr IV Q8 COUNT INCLUDES THE [facility] Last Admin: 04/20/20 06:12 Dose: 12.5 mls/hr Documented by: Vancomycin HCl 1,250 mg/ (Sodium Chloride) 275 mls @ 167 mls/hr IV Q12H COUNT INCLUDES THE [facility] Last Infusion: 04/19/20 22:40 Dose: Infused Documented by: Sodium Chloride () 250 mls @ 15 mls/hr IV .[id number] PRN PRN Reason: Saline Flush Last Infusion: 04/20/20 06:12 Dose: 0 mls/hr Documented by: Sodium Chloride () 250 mls @ 15 mls/hr IV .[id number] PRN PRN Reason: Additional IVPB Infusion Last Infusion: 04/17/20 16:35 Dose: Infused Documented by: Ipratropium Scooba (Ipratropium 0.5 Mg/2.5 Ml Solution) 0.5 mg INHALATION Q6HWA.RT COUNT INCLUDES THE [facility] Last Admin: 04/20/20 06:59 Dose: 0.5 mg Documented by: Melatonin (Melatonin 3 Mg Tablet) 3 mg PO QHS PRN PRN PRN Reason: INSOMNIA Multivitamins (Multivitamins,Therapeutic Tablet) 1 tablet [facility] Last Admin: 02/07/21 10:25 Dose: 1 tablet Documented by: Nutritional Formula (Nutritional Supplement (Chuy) Packet) 1 packet PO DAILY COUNT INCLUDES THE [facility] Last Admin: 04/19/20 10:18 Dose: Not Given Documented by: Nutritional Formula (Lactose Free) (Ensure Enlive 120 Ml Liquid) 120 ml PO 4X/DAY COUNT INCLUDES THE [facility] Last Admin: 04/19/20 22:42 Dose: 120 ml Documented by: Ondansetron HCl (Ondansetron 4 Mg/2 Ml Vial) 4 mg IV Q8H PRN PRN PRN Reason: NAUSEA/VOMITING Oxybutynin Chloride (Oxybutynin 5 Mg Tablet) 5 mg PO BID COUNT INCLUDES THE [facility] Last Admin: 04/19/20 22:39 Dose: 5 mg Documented by: Oxycodone HCl (Oxycodone Cr 20 Mg Tablet) 20 mg PO Q12 COUNT INCLUDES THE [facility] Last Admin: 04/19/20 22:38 Dose: 20 mg Documented by: Oxycodone HCl (Oxycodone 5 Mg Tablet) 10 mg PO Q6H PRN PRN PRN Reason: Pain Score 6-10 Last Admin: 04/20/20 02:44 Dose: 10 mg Documented by: Pantoprazole Sodium (Pantoprazole Sodium 40 Mg Tablet) 40 mg PO DAILY COUNT INCLUDES THE [facility] Last Admin: 04/19/20 10:25 Dose: 40 mg Documented by: Polyethylene Glycol (Polyethylene Glycol 3350 17 Gm Packet) 17 gm PO DAILY COUNT INCLUDES THE [facility] Last Admin: 04/19/20 10:24 Dose: 17 gm Documented by: Senna/Docusate Sodium (Senna/Docusate Sodium 1 Tablet) 2 tablet PO BID PRN PRN Reason: Constipation Sodium Chloride (0.9% Saline Lock 10 Ml Syringe) 10 - 40 ml IV UD PRN PRN Reason: SALINE FLUSH Last Admin: 04/19/20 07:03 Dose: 10 ml Documented by: Sodium Hypochlorite (Dakin's Venessa Half Strength (=0.25%)) 1 applic TOPICAL DAILY COUNT INCLUDES THE [facility]; Protocol Tizanidine HCl (Tizanidine Hcl 2 Mg Tablet) 4 mg PO Q8H PRN PRN PRN Reason: SPASMS Medical Necessity - Tobacco Use Smoking Status: Former smoker Assessment/Plan All Active Problems Severe sepsis (Acute) Hyponatremia (Acute) Thrombocytosis (Acute) Lactic acidosis (Acute) Transaminitis (Acute) Abscess of right groin (Resolved) Hyponatremia (Resolved) MRSA bacteremia (Resolved) The patient is a 65 y/o M w/ PMHx: Chronic sacral, ischial wounds, Chronic BL Heel wounds following w/ Podiatry, Chronic anemia, HTN, HLD, Anxiety and Depression, Hx Rectal CA, PAD. Chronic hepatitis C who presents to the [facility] ED on 04/15/20 with history of increasing fatigue, malaise with abnormal labs with concern for possible infection of his wounds. 1. Acute severe sepsis secondary to MRSA bacteremia likely secondary to infected sacral ulcer with XDR Acinetobacter, MRSA, ecoli, pseudomonas, and GNR wound growth from also bilateral heel wounds and chronic toe wounds: Patient admitted, initiated on broad-spectrum antibiotic therapy, OR 04/17/2020 with excision of sacral pressure sore stage IV with partial ostectomy for osteomyelitis, excision left ischial pressure sore stage IV with partial ostectomy for osteomyelitis, excision right ischial radiation pressure sore stage IV with partial ostectomy for osteomyelitis per Dr. Mesa, 04/20/2020 patient changed from vancomycin and Zosyn to vancomycin and colistin/tigecycline/Flagyl regimen given elevated temperatures and wound cultures with XDR Acinetobacter, MRSA, ecoli, pseudomonas, and GNR, repeat blood culture 04/19/2020 pending, urinalysis mild appearance with pending repeat urine culture although during presentation has had urine culture with less than 100,000 colony-forming units, chest x-ray with no acute findings on 04/20/2020, lactic acid 1.5, administered 1 L normal saline bolus and initiated on maintena nce IV fluids given worsened presentation and placed on telemetry status. 2. Chronic bilateral lower extremity heel wounds and right first and second distal toe wounds, dry gangrene: Possibly contributing to #1, podiatry consulted and following, continued wound RN evaluation and routine dressing changes, per discussion with podiatry similar to prior and not worsened appearance, continued on very broad-spectrum antibiotic therapy recently altered as noted 04/20/2020 per infectious disease who is following, planned LISBETH/PVR, arterial duplex per Dr. Samuels, vascular surgery request for possible future intervention although given patient history do suspect likely regardless will heal poorly. 3. Acute on chronic hyponatremia, likely component hypokalemia: Admission sodium 119, TSH, magnesium assessment normal, judiciously hydrated, 04/20/2020 sodium 124, will additionally obtain FeNa, UOsm levels to further assess. 4. Chronic anemia, iron deficiency anemia: We will continue patient home iron supplementation, admission hemoglobin 8.4, similar even following surgery, 04/20/2020 hemoglobin 8.3, continue to trend. 5. Moderate malnutrition: Evidenced per habitus, obvious muscle and fat loss, poor wound healing, nutrition consulted, continue supplementations. 6. Hypertension: Patient with low BPs during presentation, holding patient amlodipine, metoprolol, add back once appropriate. 7. Hyperlipidemia: We will continue patient home Zetia regimen. 8. Anxiety and depression: We will continue patient home bupropion, escitalopram regimen. 9. History of anal cancer: Status post colostomy, chemo and radiation, remission status considered. 10. GERD: We will continue patient home PPI. 11. DVT prophylaxis: [place]. Inpatient E&M: [id number] [facility] Hosp L3
[2020-04-20] MEDS: Ferrous Gluconate 324 MG Tablet PO ×2 (08:32→18:25)
[2020-04-20] MEDS: Aspirin E.C. 81 MG Tablet PO (08:32)
[2020-04-20] MEDS: Multivitamins,Therapeutic Tablet 1 TABLET PO (08:32)
[2020-04-20] MEDS: DAKIN'S SOL HALF STRENGTH (=0.25%) 1 APPLIC TOPICAL (08:33)
[2020-04-20 09:33] LABS: Vancomycin, Trough Level 19.1 ug/mL (5.0-15.0)
--- NOTE | 2020-04-20 09:36 | NURSING ---
wound photo: left ischium and sacrum
--- NOTE | 2020-04-20 09:38 | NURSING ---
wound photo: right ischium
--- NOTE | 2020-04-20 09:39 | NURSING ---
wound photo: right heel
--- NOTE | 2020-04-20 09:40 | NURSING ---
wound photo: left heel
[2020-04-20] MEDS: Escitalopram Oxalate 10 MG Tablet PO (09:41)
[2020-04-20] MEDS: Docusate Sodium 100 MG Capsule 200 MG PO ×2 (09:41→21:32)
[2020-04-20] MEDS: Enoxaparin 40 MG/0.4 ML Syringe SC (09:41)
[2020-04-20] MEDS: Pantoprazole Sodium 40 MG Tablet PO (09:41)
[2020-04-20] MEDS: Oxybutynin 5 MG Tablet PO ×2 (09:41→21:32)
[2020-04-20] MEDS: Polyethylene Glycol 3350 17 GM PACKET PO (09:41)
--- NOTE | 2020-04-20 09:41 | NURSING ---
wound photo: toes right foot
--- NOTE | 2020-04-20 10:33 | CASEMGMT ---
Social Work Note Pt is not medically cleared for discharge. SW faxed updated clinicals to Tala at [facility] and wrote on fax coversheet pt is not ready for discharge. Plan: [facility] once medically cleared Caroline Og OFFICE SERVICE COORDINATOR, [employer] MIXER ASSISTANT
[2020-04-20 11:08] LABS: Mucous, Urine 0 SEEN /hpf (<or=2+)
[2020-04-20 11:10] LABS: Color, Urine Yellow (Yellow); Glucose, Dipstick Normal (Normal); Ketone-Dipstick Negative (Negative); Leukocyte Esterase-Dipstick 100 /ul (Negative); Nitrite-Dipstick Negative (Negative); Occult Blood-Urine 250 /ul (Negative); Protein-Dipstick 100 mg/dl (Negative); Specific Gravity, Urine 1.015 (1.002-1.030); Urine Bilirubin Dipstick Negative (Negative); Urine Clarity Sl. Cloudy (Clear); Urine Urobilinogen 1 mg/dl (Normal)
[2020-04-20 11:15] LABS: Red Blood Cells-Urine 25-50 SEEN /hpf (0-5)
[2020-04-20 11:16] LABS: Bacteria 1+ /hpf (None Seen); Squamous Epithelial Cells - UA 0-5 SEEN /hpf (0-5); White Blood Cells 10-25 SEEN /hpf (0-5)
--- NOTE | 2020-04-20 11:31 | PCM.RX.CS ---
Consult Pharmacy has been consulted to manage selected antiobiotic: Vancomycin Type of Consult: Follow-up Suspected Infection: Sepsis Prior Doses of Antibiotics Received/Current Regimen: Currently on 1250mg iv q12h. Labs: Sodium 124 mmol/L (136-145) L 04/20/20 05:42 Potassium 4.4 mmol/L (3.5-5.1) 04/20/20 05:42 Chloride 89 mmol/L (98-107) L 04/20/20 05:42 Carbon Dioxide 28.0 mmol/L (21.0-32.0) 04/20/20 05:42 Anion Gap 7 (5-15) 04/20/20 05:42 BUN 11 mg/dL (7-18) 04/20/20 05:42 Creatinine 0.44 mg/dL (0.70-1.30) L 04/20/20 05:42 Est GFR (MDRD) Af Amer 247 mL/min (>60) 04/20/20 05:42 Est GFR (MDRD) Non-Af 204 mL/min (>60) 04/20/20 05:42 BUN/Creatinine Ratio 24.9 RATIO (10-20) H 04/20/20 05:42 Glucose 89 mg/dL (74-106) 04/20/20 05:42 Vancomycin Trough 19.1 ug/mL (5.0-15.0) H 04/20/20 08:54 Microbiology: Microbiology 04/17/20 14:57 Bone - Ischium Gram Stain - Final 04/17/20 14:57 Bone - Ischium Wound Culture - Preliminary Pseudomonas aeroginosa Acinetobacter baumannii Meth. resistant Staph. aureus 04/17/20 14:57 Bone - Ischium Anaerobic Culture - Preliminary Checking for anaerobes, further studies to follow. 04/17/20 14:57 Bone - Ischial Bone Gram Stain - Final 04/17/20 14:57 Bone - Ischial Bone Wound Culture - Preliminary Pseudomonas aeroginosa Acinetobacter baumannii Gram negative jesus Escherichia coli Staphylococcus aureus 04/17/20 14:57 Bone - Ischial Bone Anaerobic Culture - Preliminary Checking for anaerobes, further studies to follow. 04/17/20 14:57 Tissue - Sacral Gram Stain - Final 04/17/20 14:57 Tissue - Sacral Wound Culture - Preliminary Acinetobacter baumannii 04/17/20 14:57 Tissue - Sacral Anaerobic Culture - Preliminary Checking for anaerobes, further studies to follow. 04/17/20 14:57 Bone - Sacral Bone Gram Stain - Final 04/17/20 14:57 Bone - Sacral Bone Wound Culture - Preliminary Pseudomonas aeroginosa Gram negative jesus Meth. resistant Staph. aureus 04/17/20 14:57 Bone - Sacral Bone Anaerobic Culture - Preliminary Checking for anaerobes, further studies to follow. 04/17/20 14:57 Tissue - Ischial Pressure Sore Gram Stain - Final 04/17/20 14:57 Tissue - Ischial Pressure Sore Wound Culture - Preliminary Pseudomonas aeroginosa Acinetobacter baumannii Staphylococcus aureus 04/17/20 14:57 Tissue - Ischial Pressure Sore Gram Stain - Final 04/17/20 14:57 Tissue - Ischial Pressure Sore Wound Culture - Preliminary Pseudomonas aeroginosa Acinetobacter baumannii Meth. resistant Staph. aureus 04/18/20 05:30 Blood Culture (Wb) - Left Wrist Blood Culture - Preliminary No growth in 48 hours. 04/17/20 06:24 Blood Culture (Wb) - Left Hand Blood Culture - Preliminary No growth in 48 hours. 04/15/20 11:08 Urine Catheter - Walker Urine Culture - Final Escherichia coli Proteus mirabilis 04/15/20 10:45 Blood Culture (Wb) - Left Forearm Blood Culture - Preliminary Meth. resistant Staph. aureus 04/16/20 09:35 Blood Culture (Wb) - Anticubital Left Blood Culture - Preliminary No growth in 48 hours. 04/15/20 10:45 Blood Culture (Wb) - Left Hand Blood Culture - Preliminary No growth in 48 hours. 04/17/20 01:50 Mucosa - Nose SARS-CoV-2 Antigen (Rapid) - Final Weight used for dosin.8 kg Estimated Creatinine Clearance: >100 ml/mi Goal Trough: 15-20 mcg/mL Pharmacy Plan for Drug Dosing: Today's trough level , 12hrs post last dose, was 19.1 with goal of 15-20mcg/ml. Renal labs reviewed with status same. Will continue same dosage/freq and get another trough level on 04.21.20. Pharmacy Service will continue to monitor and adjust dosing as required. Follow-Up Labs: Trough Vancomycin - 04.21.20 @2130 before 2200 dose
[2020-04-20 13:24] LABS: Pathologist Review Reviewed
[2020-04-20 13:24] LABS: Pathologist Review Reviewed
--- NOTE | 2020-04-20 13:33 | ADUL_ITS ---
Reason For Study: Ulcer Right Velocities Ext. Iliac Artery, dist = 73 cm./sec. Common Femoral Artery, mid = 100 cm./sec. Supf Femoral Artery, prox = 93 cm./sec. Supf Femoral Artery, mid = 212 cm./sec. Supf Femoral Artery, dist. = 56 cm./sec. Rt SFA mid pre stenosis: 69 cm/s Rt SFA mid stenosis: 212 cm/s Rt SFA mid post stenosis: 79 cm/s. Profunda Femoral Artery = 101 cm./sec. Ant. Tibial Artery, prox = 30 cm./sec. Ant. Tibial Artery, mid = 26 cm./sec. Ant. Tibial Artery, dist = 23 cm./sec. Post. Tibial Artery, prox = 39 cm./sec. Post. Tibial Artery, mid = 26 cm./sec. Post. Tibial Artery, dist = 11 cm./sec. Peroneal Artery, prox = 26 cm./sec. Peroneal Artery, mid = 26 cm./sec. Peroneal Artery,dist = 23 cm./sec. Unable to visualize Rt Jordyn; pt is unable to move leg/bend at knee. Interpretation Summary Moderate stenosis mid SFA on right and unable to see popliteal artery. Ordering Physician: Naomi Palomares Referring Physician: Rob Atkins Performed By: Lanie Carnes, HEMANTH, RVT
--- NOTE | 2020-04-20 13:34 | ART_ITS ---
Reason For Study: PVD Procedure A bilateral lower extremity continuous wave Doppler with analog waveform analysis and ankle brachial indexes. Left Segmental Pressures Left dorsalis pedis artery = 44mmHg. Right Segmental Pressures Right brachial= 95mmHg. Right dorsalis pedis artery = 80mmHg. Indices The right ankle brachial index by the dorsalis pedis is 0.84. The left ankle brachial index by the dorsalis pedis is 0.46. Interpretation Summary Bilateral monophsaic flow and LISBETH 0.84 and 0.46. Ordering Physician: Naomi Palomares Referring Physician: Rob Atkins Performed By: Lanie Carnes RDCS/RVT
--- NOTE | 2020-04-20 14:37 | PCM.PN.ID ---
Patient Problems: Active and Suspected Problems Severe sepsis (Acute) Hyponatremia (Acute) Thrombocytosis (Acute) Lactic acidosis (Acute) Transaminitis (Acute) Malnutrition (Suspected) Subjective: Fever overnight, feeling ok today - Physical Exam Vitals/I&O's: Vital Signs Temp Pulse Resp BP Pulse Ox 100.7 F H 113 H 18 97/57 L 95 04/20/20 13:56 04/20/20 13:56 04/20/20 13:56 04/20/20 13:56 04/20/20 13:56 Oxygen Flow Rate (L/min) 2 Oxygen Delivery Method Nasal Cannula Weight: 90.8 kg Body Mass Index (BMI) 31.4 Intake and Output for Last 24 Hours 04/18/20 04/19/20 04/20/20 23:59 23:59 23:59 Intake Total 1733 / 1733 2235.00 / 2235.00 668 / 668 Output Total 1900 / 2350 4300 / 4300 1125 / 1125 Balance -167 / -617 -2065.00 / -2065.00 -457 / -457 General: Alert, Cooperative, No apparent distress Lungs: Clear to auscultation, Normal air movement Cardiovascular: Regular rate, Regular Rhythm Abdomen: Soft, Non Tender, Non-Distended Skin: Ulcer/ Wound - reviewed photos Microbiology Past 72 Hours 04/17/20 14:57 Tissue - Ischial Pressure Sore Gram Stain - Final 04/17/20 14:57 Tissue - Ischial Pressure Sore Wound Culture - Preliminary Pseudomonas aeroginosa Acinetobacter baumannii Meth. resistant Staph. aureus 04/17/20 14:57 Tissue - Ischial Pressure Sore Anaerobic Culture - Preliminary Checking for anaerobes, further studies to follow. 04/17/20 14:57 Tissue - Ischial Pressure Sore Gram Stain - Final 04/17/20 14:57 Tissue - Ischial Pressure Sore Wound Culture - Preliminary Pseudomonas aeroginosa Acinetobacter baumannii Staphylococcus aureus 04/17/20 14:57 Tissue - Ischial Pressure Sore Anaerobic Culture - Preliminary Checking for anaerobes, further studies to follow. 04/15/20 10:45 Blood Culture (Wb) - Left Hand Blood Culture - Final No growth in 5 days. 04/15/20 10:45 Blood Culture (Wb) - Left Forearm Blood Culture - Final Meth. resistant Staph. aureus 04/17/20 14:57 Bone - Ischium Gram Stain - Final 04/17/20 14:57 Bone - Ischium Wound Culture - Preliminary Pseudomonas aeroginosa Acinetobacter baumannii Meth. resistant Staph. aureus 04/17/20 14:57 Bone - Ischium Anaerobic Culture - Preliminary Checking for anaerobes, further studies to follow. 04/17/20 14:57 Bone - Ischial Bone Gram Stain - Final 04/17/20 14:57 Bone - Ischial Bone Wound Culture - Preliminary Pseudomonas aeroginosa Acinetobacter baumannii Gram negative jesus Escherichia coli Staphylococcus aureus 04/17/20 14:57 Bone - Ischial Bone Anaerobic Culture - Preliminary Checking for anaerobes, further studies to follow. 04/17/20 14:57 Tissue - Sacral Gram Stain - Final 04/17/20 14:57 Tissue - Sacral Wound Culture - Preliminary Acinetobacter baumannii 04/17/20 14:57 Tissue - Sacral Anaerobic Culture - Preliminary Checking for anaerobes, further studies to follow. 04/17/20 14:57 Bone - Sacral Bone Gram Stain - Final 04/17/20 14:57 Bone - Sacral Bone Wound Culture - Preliminary Pseudomonas aeroginosa Gram negative jesus Meth. resistant Staph. aureus 04/17/20 14:57 Bone - Sacral Bone Anaerobic Culture - Preliminary Checking for anaerobes, further studies to follow. 04/18/20 05:30 Blood Culture (Wb) - Left Wrist Blood Culture - Preliminary No growth in 48 hours. 04/17/20 06:24 Blood Culture (Wb) - Left Hand Blood Culture - Preliminary No growth in 48 hours. 04/15/20 11:08 Urine Catheter - Walker Urine Culture - Final Escherichia coli Proteus mirabilis 04/16/20 09:35 Blood Culture (Wb) - Anticubital Left Blood Culture - Preliminary No growth in 48 hours. Laboratory Results 04/19/20 05:05: Diff Path Review Reviewed 04/20/20 05:42: WBC 15.9 H, RBC 3.45 L, Hgb 8.3 L, Hct 26.5 L, MCV 76.8 L, MCH 24.1 L, MCHC 31.3 L, RDW Std Deviation 46.1 H, RDW Coeff of [place] 16.4 H, Plt Count 623 H, MPV 7.3, Immature Gran % (Auto) 2.600 H, Neut % (Auto) 75.1 H, Lymph % (Auto) 9.9 L, [place] % (Auto) 11.3 H, Eos % (Auto) 0.8, Baso % (Auto) 0.3, Absolute Neuts (auto) 12.0 H, Absolute Lymphs (auto) 1.58, Nucleated RBC % 0, Diff Path Review Reviewed, Platelet Estimate MOD INC 04/20/20 05:42: Sodium 124 L, Potassium 4.4, Chloride 89 L, Carbon Dioxide 28.0, Anion Gap 7, BUN 11, Creatinine 0.44 L, Estim Creat Clear Calc 67.94, Est GFR (MDRD) Af Amer 247, Est GFR (MDRD) Non-Af 204, BUN/Creatinine Ratio 24.9 H, Glucose 89, Calcium 8.2 L, Total Bilirubin 0.30, AST 44 H, ALT 66 H, Alkaline Phosphatase 235 H, Total Protein 6.4, Albumin 2.0 L, Globulin 4.4 H, Albumin/Globulin Ratio 0.5 L 04/20/20 08:54: Vancomycin Trough 19.1 H 04/20/20 11:00: Urine Color Yellow, Urine Clarity Sl. Cloudy, Urine pH 6.0, Ur Specific [place] 1.015, Urine Protein 100 H, Urine Glucose (UA) Normal, Urine Ketones Negative, Urine Occult Blood 250 H, Urine Nitrite Negative, Urine Bilirubin Negative, Urine Urobilinogen 1 H, Ur Leukocyte Esterase 100 H, Urine RBC 25-50 SEEN, Urine WBC 10-25 SEEN, Ur Squamous Epith Cells 0-5 SEEN, Urine Bacteria 1+, Urine Mucus 0 SEEN Current Medications Acetaminophen (Acetaminophen 325 Mg Tablet) 650 mg PO Q6H PRN PRN PRN Reason: Pain Score 1-10/Temp > 100.7 F Last Admin: 04/20/20 09:40 Dose: 650 mg Documented by: Al Hydroxide/Mg Hydroxide (Mag Hydrox/Al Hydrox/Simeth 30 Ml Udc) 30 ml PO Q6H PRN PRN PRN Reason: Gastric Burning Albuterol Sulfate (Albuterol 2.5 Mg/3 Ml Vial.Neb.) 2.5 mg INHALATION Q2H PRN PRN PRN Reason: SOB/Wheezing Amlodipine Besylate (Amlodipine 5 Mg Tablet) 5 mg PO DAILY [facility]ARA Last Admin: 04/20/20 09:40 Dose: Not Given Documented by: Aspirin (Aspirin E.C. 81 Mg Tablet) 81 mg PO DAILY@0800 [facility] Last Admin: 04/20/20 08:32 Dose: 81 mg Documented by: Bupropion HCl (Bupropion (Xl) 300 Mg Tablet.Xl) 300 mg PO QHS [facility] Last Admin: 04/19/20 22:39 Dose: 300 mg Documented by: Diphenhydramine HCl (Diphenhydramine 25 Mg Capsule) 25 mg PO Q6H PRN PRN PRN Reason: ITCHING Docusate Sodium (Docusate Sodium 100 Mg Capsule) 200 mg PO BID [facility] Last Admin: 04/20/20 09:41 Dose: 200 mg Documented by: Ezetimibe (Ezetimibe 10 Mg Tablet) 10 mg PO QHS [facility] Last Admin: 04/19/20 22:39 Dose: 10 mg Documented by: Enoxaparin Sodium (Enoxaparin 40 Mg/0.4 Ml Syringe) 40 mg SC DAILY [facility] Last Admin: 04/20/20 09:41 Dose: 40 mg Documented by: Escitalopram Oxalate (Escitalopram Oxalate 10 Mg Tablet) 10 mg PO DAILY [facility] Last Admin: 04/20/20 09:41 Dose: 10 mg Documented by: Ferrous Gluconate (Ferrous Gluconate 324 Mg Tablet) 324 mg PO BIDCM [facility] Last Admin: 04/20/20 08:32 Dose: 324 mg Documented by: Fluticasone Propionate (Fluticasone 0.05% 1 [place] Nasal.Sry) [facility] Last Admin: 04/19/20 22:44 Dose: 1 spray Documented by: Gabapentin (Gabapentin 600 Mg Tablet) 600 mg PO TID [facility] Last Admin: 04/20/20 14:07 Dose: 600 mg Documented by: Guaifenesin (Guaifenesin 10 Ml Udc (200mg/10ml)) 5 ml PO Q6H PRN PRN PRN Reason: COUGH Hydralazine HCl (Hydralazine 20 Mg/Ml Vial) 10 mg IV Q4H PRN PRN PRN Reason: SBP > 160 Hydromorphone HCl (Hydromorphone 0.5 Mg/0.5 Ml Syringe) 0.5 mg IV Q4H PRN PRN PRN Reason: BREAKTHROUGH Pain Score 6-10 Last Admin: 04/19/20 17:50 Dose: 0.5 mg Documented by: Vancomycin IV Pharmacy to Dose (1 ea/ Sodium Chloride) 500 mls @ 250 mls/hr IV PRN PRN; Protocol PRN Reason: Rx to Dose Vancomycin HCl 1,250 mg/ (Sodium Chloride) 275 mls @ 167 mls/hr IV Q12H [facility] Last Infusion: 04/20/20 12:16 Dose: Infused Documented by: Sodium Chloride () 250 mls @ 15 mls/hr IV .[id number] PRN PRN Reason: Saline Flush Last Infusion: 04/20/20 06:12 Dose: 0 mls/hr Documented by: Sodium Chloride () 250 mls @ 15 mls/hr IV .[id number] PRN PRN Reason: Additional IVPB Infusion Last Infusion: 04/17/20 16:35 Dose: Infused Documented by: Colistimethate Sodium 150 mg/ (Sodium Chloride) 50 mls @ 100 mls/hr IV Q8 [facility] Tigecycline 50 mg/ Sodium (Chloride) 105 mls @ 105 mls/hr IV Q12 [facility] Ipratropium [place] (Ipratropium 0.5 Mg/2.5 Ml Solution) 0.5 mg INHALATION Q6HWA.RT [facility] Last Admin: 04/20/20 06:59 Dose: 0.5 mg Documented by: Melatonin (Melatonin 3 Mg Tablet) 3 mg PO QHS PRN PRN PRN Reason: INSOMNIA Metronidazole (Metronidazole 500 Mg Tablet) 500 mg PO TID [facility] Multivitamins (Multivitamins,Therapeutic Tablet) 1 tablet PO DAILYCM [facility] Last Admin: 04/20/20 08:32 Dose: 1 tablet Documented by: Nutritional Formula (Nutritional Supplement (Chuy) Packet) 1 packet PO DAILY [facility] Last Admin: 04/20/20 09:39 Dose: Not Given Documented by: Nutritional Formula (Lactose Free) (Ensure Enlive 120 Ml Liquid) 120 ml PO 4X/DAY [facility] Last Admin: 04/20/20 14:07 Dose: 120 ml Documented by: Ondansetron HCl (Ondansetron 4 Mg/2 Ml Vial) 4 mg IV Q8H PRN PRN PRN Reason: NAUSEA/VOMITING Oxybutynin Chloride (Oxybutynin 5 Mg Tablet) 5 mg PO BID [facility] Last Admin: 04/20/20 09:41 Dose: 5 mg Documented by: Oxycodone HCl (Oxycodone Cr 20 Mg Tablet) 20 mg PO Q12 [facility] Last Admin: 04/20/20 13:44 Dose: Not Given Documented by: Oxycodone HCl (Oxycodone 5 Mg Tablet) 10 mg PO Q6H PRN PRN PRN Reason: Pain Score 6-10 Last Admin: 04/20/20 08:32 Dose: 10 mg Documented by: Pantoprazole Sodium (Pantoprazole Sodium 40 Mg Tablet) 40 mg PO DAILY [facility] Last Admin: 04/20/20 09:41 Dose: 40 mg Documented by: Polyethylene Glycol (Polyethylene Glycol 3350 17 Gm Packet) 17 gm PO DAILY [facility] Last Admin: 04/20/20 09:41 Dose: 17 gm Documented by: Senna/Docusate Sodium (Senna/Docusate Sodium 1 Tablet) 2 tablet PO BID PRN PRN Reason: Constipation Sodium Chloride (0.9% Saline Lock 10 Ml Syringe) 10 - 40 ml IV UD PRN PRN Reason: SALINE FLUSH Last Admin: 04/19/20 07:03 Dose: 10 ml Documented by: Sodium Hypochlorite (Dakin's Venessa Half Strength (=0.25%)) 1 applic TOPICAL DAILY [facility]; Protocol Last Admin: 04/20/20 08:33 Dose: 1 applicatio Documented by: Tizanidine HCl (Tizanidine Hcl 2 Mg Tablet) 4 mg PO Q8H PRN PRN PRN Reason: SPASMS Medical Necessity - Tobacco Use Smoking Status: Former smoker Route of nutrition/ use of supplements: [] Nutritional Intake: [] IV Site: [] Walker Catheter: [] - Assessment/Plan Antibiotics: [] Assessment/Plan: [] Active and Suspected Problems Severe sepsis (Acute) Hyponatremia (Acute) Thrombocytosis (Acute) Lactic acidosis (Acute) Transaminitis (Acute) Malnutrition (Suspected) severe sepsis with MRSA bacteremia likely due to infected sacral ulcer - seen by podiatry and plastics. Taken to OR 2/[address] [place]. Bcx have cleared. TTE with no veg. Fever last night. Surg cxs with XDR Acinetobacter, MRSA, ecoli, pseudomonas, and GNR. Requested additional susc testing from the micro lab of this [facility]. Starting contact iso. Cont vanc, change zosyn to colistin/tigecycline/flagyl. Will follow, d/w pharmacy
[2020-04-20] MEDS: 0.9% Normal Saline 1,000 ML 999 ML IV (15:50)
[2020-04-20] MEDS: 0.9% Normal Saline 1,000 ML 125 ML IV (16:54)
[2020-04-20 17:05] LABS: Lactic Acid 1.5 mmol/L (0.4-1.9)
[2020-04-20] MEDS: metroNIDAZOLE 500 MG Tablet PO (21:32)
[2020-04-20] MEDS: Fluticasone 0.05% 1 SPRAY NASAL.SRY NASAL (21:33)
[2020-04-20] MEDS: Ezetimibe 10 MG Tablet PO (21:33)
[2020-04-20] MEDS: buPROPion (XL) 300 MG TABLET.XL PO (21:33)
[2020-04-20 22:25] LABS: Urine Sodium 103 mmol/L (Not Establ.)
[2020-04-20 22:36] LABS: Osmolality, Urine 376 mOsm/KG
[2020-04-21] VITALS (12 sets, daily range): BP systolic 88–115; BP diastolic 48–54; PULSE 91–104; RESP 12–18; TEMP 36.6–38.6; O2SAT 93–98
[2020-04-21] MEDS: 0.9% Normal Saline 1,000 ML 125 ML IV ×2 (02:36→11:53)
[2020-04-21] MEDS: metroNIDAZOLE 500 MG Tablet PO ×3 (05:10→22:50)
[2020-04-21] MEDS: Gabapentin 600 MG Tablet PO ×3 (05:10→22:50)
[2020-04-21] MEDS: oxyCODONE 5 MG Tablet 10 MG PO ×2 (05:19→11:53)
[2020-04-21] MEDS: Acetaminophen 325 MG Tablet 650 MG PO ×2 (05:20→11:53)
[2020-04-21] MEDS: Ipratropium 0.5 MG/2.5 ML SOLUTION INHALATION ×2 (06:57→13:34)
--- NOTE | 2020-04-21 07:16 | PN_ITS ---
Patient Problems: Active and Suspected Problems Severe sepsis (Acute) Hyponatremia (Acute) Thrombocytosis (Acute) Lactic acidosis (Acute) Transaminitis (Acute) Malnutrition (Suspected) Subjective: Patient overnight with improvement of temperature and decreased heart rate following IV fluids and alteration of the antibiotic therapy with lactic acid 1.5. Patient overnight had been placed on telemetry given concerns for worsening status but since improvement planned removal. Patient with continued negative blood cultures and cleared for PICC line placement per discussion with infectious disease. Patient status post several dressing changes today with stable appearing wounds. ABIs performed per vascular surgery request, awaiting final read as well as duplex ordered per podiatry and vascular surgery. Discussed with patient possibility of intervention per vascular if clinically appropriate with no evidence of any bacteremia ongoing or sepsis. Patient denies fevers, chills, nausea, emesis, abdominal pain, chest pain or dyspnea. Objective: Physical Examination: General: awake, alert, oriented x 3 and cooperative, seated upright in the medical surgical bed, improved appearance, no complaints. Skin: normal color, turgor, no icterus, cyanosis except significant wounds (wound RN pictures from recent dressing changes reviewed including left ischial and sacral regions with mild yellow slough, no drainage, periwound mild erythema although suspect likely chronic, right ischium similar appearance with yellow slough, no drainage, right heel with region of darkened eschar, dry, yellow slough, no drainage, left heel with minimal eschar, no slough and no drainage, right first through second distal toe tips with evidence of dry necrotic appearance, no drainage). HEENT: AT/NC, EOMI, PERRLA, MMM. Lungs: Diminished breath sounds, greater bases, moderate effort, no rales, ronchi or wheezing. Heart: Improved, regular rate and regular rhythm; no gallop, rub audible. Abdomen: soft, obese, NTTP, ND, normal BS. Extremities: no cyanosis or clubbing, see skin for significant wound descriptions. Neurological: patient awake, alert, oriented x 3; cognitive function baseline intact although patient has poor insight into his medical care and significant nature of his disease process, pupils equally reactive to light and accomodation; cranial nerves II-XII grossly normal, moving all 4 extremities, no focal deficits, strength improved since day prior, moderately to severely globally decreased, refused positional changes again, still some mild tremors to upper extremities noted, less than day prior. Psychiatric: affect appears improved, normal, no acute evidence of depressive or anxiety feelings. Vitals/I&O's: Vital Signs Temp Pulse Resp BP Pulse Ox 98.5 F 102 H 18 115/50 L 95 04/21/20 05:15 04/21/20 03:17 04/21/20 02:55 04/21/20 02:55 04/21/20 02:55 Oxygen Flow Rate (L/min) 2 Oxygen Delivery Method Nasal Cannula Weight: 200 lb 2.876 oz Body Mass Index (BMI) 31.4 Intake and Output for Last 24 Hours 04/19/20 04/20/20 04/21/20 23:59 23:59 23:59 Intake Total 2235.00 / 2235.00 3331.17 / 3331.17 1172.17 / 1172.17 Output Total 4300 / 4300 2625 / 2625 1550 / 1550 Balance -2065.00 / -2065.00 706.17 / 706.17 -377.83 / -377.83 Microbiology Past 72 Hours 04/17/20 14:57 Tissue - Ischial Pressure Sore Gram Stain - Final 04/17/20 14:57 Tissue - Ischial Pressure Sore Wound Culture - Preliminary Pseudomonas aeroginosa Acinetobacter baumannii Meth. resistant Staph. aureus 04/17/20 14:57 Tissue - Ischial Pressure Sore Anaerobic Culture - Preliminary Checking for anaerobes, further studies to follow. 04/17/20 14:57 Tissue - Ischial Pressure Sore Gram Stain - Final 04/17/20 14:57 Tissue - Ischial Pressure Sore Wound Culture - Preliminary Pseudomonas aeroginosa Acinetobacter baumannii Staphylococcus aureus 04/17/20 14:57 Tissue - Ischial Pressure Sore Anaerobic Culture - Preliminary Checking for anaerobes, further studies to follow. 04/15/20 10:45 Blood Culture (Wb) - Left Hand Blood Culture - Final No growth in 5 days. 04/15/20 10:45 Blood Culture (Wb) - Left Forearm Blood Culture - Final Meth. resistant Staph. aureus 04/17/20 14:57 Bone - Ischium Gram Stain - Final 04/17/20 14:57 Bone - Ischium Wound Culture - Preliminary Pseudomonas aeroginosa Acinetobacter baumannii Meth. resistant Staph. aureus 04/17/20 14:57 Bone - Ischium Anaerobic Culture - Preliminary Checking for anaerobes, further studies to follow. 04/17/20 14:57 Bone - Ischial Bone Gram Stain - Final 04/17/20 14:57 Bone - Ischial Bone Wound Culture - Preliminary Pseudomonas aeroginosa Acinetobacter baumannii Gram negative jesus Escherichia coli Staphylococcus aureus 04/17/20 14:57 Bone - Ischial Bone Anaerobic Culture - Preliminary Checking for anaerobes, further studies to follow. 04/17/20 14:57 Tissue - Sacral Gram Stain - Final 04/17/20 14:57 Tissue - Sacral Wound Culture - Preliminary Acinetobacter baumannii 04/17/20 14:57 Tissue - Sacral Anaerobic Culture - Preliminary Checking for anaerobes, further studies to follow. 04/17/20 14:57 Bone - Sacral Bone Gram Stain - Final 04/17/20 14:57 Bone - Sacral Bone Wound Culture - Preliminary Pseudomonas aeroginosa Gram negative jesus Meth. resistant Staph. aureus 04/17/20 14:57 Bone - Sacral Bone Anaerobic Culture - Preliminary Checking for anaerobes, further studies to follow. 04/18/20 05:30 Blood Culture (Wb) - Left Wrist Blood Culture - Preliminary No growth in 48 hours. 04/17/20 06:24 Blood Culture (Wb) - Left Hand Blood Culture - Preliminary No growth in 48 hours. 04/15/20 11:08 Urine Catheter - Walker Urine Culture - Final Escherichia coli Proteus mirabilis 04/16/20 09:35 Blood Culture (Wb) - Anticubital Left Blood Culture - Preliminary No growth in 48 hours. Laboratory Results 04/19/20 05:05: Diff Path Review Reviewed 04/20/20 05:42: Diff Path Review Reviewed 04/20/20 08:54: Vancomycin Trough 19.1 H 04/20/20 11:00: Urine Color Yellow, Urine Clarity Sl. Cloudy, Urine pH 6.0, Ur Specific [place] 1.015, Urine Protein 100 H, Urine Glucose (UA) Normal, Urine Ketones Negative, Urine Occult Blood 250 H, Urine Nitrite Negative, Urine Bili abraham Negative, Urine Urobilinogen 1 H, Ur Leukocyte Esterase 100 H, Urine RBC 25-50 SEEN, Urine WBC 10-25 SEEN, Ur Squamous Epith Cells 0-5 SEEN, Urine Bacteria 1+, Urine Mucus 0 SEEN 04/20/20 15:50: Lactic Acid 1.5 04/20/20 21:39: Urine Osmolality 376 04/20/20 21:39: Urine Creatinine 16.70 04/20/20 21:39: Ur Random Sodium 103 Current Medications Acetaminophen (Acetaminophen 325 Mg Tablet) 650 mg PO Q6H PRN PRN PRN Reason: Pain Score 1-10/Temp > 100.7 F Last Admin: 04/21/20 05:20 Dose: 650 mg Documented by: Al Hydroxide/Mg Hydroxide (Mag Hydrox/Al Hydrox/Simeth 30 Ml Udc) 30 ml PO Q6H PRN PRN PRN Reason: Gastric Burning Albuterol Sulfate (Albuterol 2.5 Mg/3 Ml Vial.Neb.) 2.5 mg INHALATION Q2H PRN PRN PRN Reason: SOB/Wheezing Amlodipine Besylate (Amlodipine 5 Mg Tablet) 5 mg PO DAILY [facility] Last Admin: 04/20/20 09:40 Dose: Not Given Documented by: Aspirin (Aspirin E.C. 81 Mg Tablet) 81 mg PO DAILY@0800 [facility] Last Admin: 04/20/20 08:32 Dose: 81 mg Documented by: Bupropion HCl (Bupropion (Xl) 300 Mg Tablet.Xl) 300 mg PO QHS [facility] Last Admin: 04/20/20 21:33 Dose: 300 mg Documented by: Diphenhydramine HCl (Diphenhydramine 25 Mg Capsule) 25 mg PO Q6H PRN PRN PRN Reason: ITCHING Docusate Sodium (Docusate Sodium 100 Mg Capsule) 200 mg PO BID [facility] Last Admin: 04/20/20 21:32 Dose: 200 mg Documented by: Ezetimibe (Ezetimibe 10 Mg Tablet) 10 mg PO QHS [facility] Last Admin: 04/20/20 21:33 Dose: 10 mg Documented by: Enoxaparin Sodium (Enoxaparin 40 Mg/0.4 Ml Syringe) 40 mg SC DAILY [facility] Last Admin: 04/20/20 09:41 Dose: 40 mg Documented by: Escitalopram Oxalate (Escitalopram Oxalate 10 Mg Tablet) 10 mg PO DAILY [facility] Last Admin: 04/20/20 09:41 Dose: 10 mg Documented by: Ferrous Glucon[facility] ([facility] 324 [facility]t) [facility] Last Admin: 04/20/20 18:25 Dose: 324 mg Documented by: Fluticasone Propionate (Fluticasone 0.05% 1 [place] Nasal.Sry) 1 spray NASAL QHS [facility] Last Admin: 04/20/20 21:33 Dose: 1 spray Documented by: Gabapentin (Gabapentin 600 Mg Tablet) 600 mg PO TID [facility] Last Admin: 04/21/20 05:10 Dose: 600 mg Documented by: Guaifenesin (Guaifenesin 10 Ml Udc (200mg/10ml)) 5 ml PO Q6H PRN PRN PRN Reason: COUGH Hydralazine HCl (Hydralazine 20 Mg/Ml Vial) 10 mg IV Q4H PRN PRN PRN Reason: SBP > 160 Hydromorphone HCl (Hydromorphone 0.5 Mg/0.5 Ml Syringe) 0.5 mg IV Q4H PRN PRN PRN Reason: BREAKTHROUGH Pain Score 6-10 Last Admin: 04/19/20 17:50 Dose: 0.5 mg Documented by: Vancomycin IV Pharmacy to Dose (1 ea/ Sodium Chloride) 500 mls @ 250 mls/hr IV PRN PRN; Protocol PRN Reason: Rx to Dose Vancomycin HCl 1,250 mg/ (Sodium Chloride) 275 mls @ 167 mls/hr IV Q12H [facility] Last Infusion: 04/20/20 23:04 Dose: Infused Documented by: Sodium Chloride () 250 mls @ 15 mls/hr IV .[id number] PRN PRN Reason: Saline Flush Last Infusion: 04/21/20 05:43 Dose: 15 mls/hr Documented by: Sodium Chloride () 250 mls @ 15 mls/hr IV .[id number] PRN PRN Reason: Additional IVPB Infusion Last Infusion: 04/17/20 16:35 Dose: Infused Documented by: Colistimethate Sodium 150 mg/ (Sodium Chloride) 50 mls @ 100 mls/hr IV Q8 [facility] Last Infusion: 04/21/20 05:42 Dose: Infused Documented by: Tigecycline 50 mg/ Sodium (Chloride) 105 mls @ 105 mls/hr IV Q12 [facility] Last Infusion: 04/20/20 23:47 Dose: Infused Documented by: Sodium Chloride () 1,000 mls @ 125 mls/hr IV .Q8H [facility] Last Admin: 04/21/20 02:36 Dose: 125 mls/hr Documented by: Ipratropium [place] (Ipratropium 0.5 Mg/2.5 Ml Solution) 0.5 mg INHALATION Q6HWA.RT [facility] Last Admin: 04/21/20 06:57 Dose: 0.5 mg Documented by: Melatonin (Melatonin 3 Mg Tablet) 3 mg PO QHS PRN PRN PRN Reason: INSOMNIA Metronidazole (Metronidazole 500 Mg Tablet) 500 mg PO TID [facility] Last Admin: 04/21/20 05:10 Dose: 500 mg Documented by: Multivitamins (Multivitamins,Therapeutic Tablet) [facility] Last Admin: 04/20/20 08:32 Dose: 1 tablet Documented by: Nutritional Formula (Nutritional Supplement (Chuy) Packet) 1 packet PO DAILY [facility] Last Admin: 04/20/20 09:39 Dose: Not Given Documented by: Nutritional Formula (Lactose Free) (Ensure Enlive 120 Ml Liquid) 120 ml PO 4X/DAY [facility] Last Admin: 04/20/20 21:35 Dose: 120 ml Documented by: Ondansetron HCl (Ondansetron 4 Mg/2 Ml Vial) 4 mg IV Q8H PRN PRN PRN Reason: NAUSEA/VOMITING Oxybutynin Chloride (Oxybutynin 5 Mg Tablet) 5 mg PO BID [facility] Last Admin: 04/20/20 21:32 Dose: 5 mg Documented by: Oxycodone HCl (Oxycodone Cr 20 Mg Tablet) 20 mg PO Q12 [facility] Last Admin: 04/20/20 21:32 Dose: 20 mg Documented by: Oxycodone HCl (Oxycodone 5 Mg Tablet) 10 mg PO Q6H PRN PRN PRN Reason: Pain Score 6-10 Last Admin: 04/21/20 05:19 Dose: 10 mg Documented by: Pantoprazole Sodium (Pantoprazole Sodium 40 Mg Tablet) 40 mg PO DAILY [facility] Last Admin: 04/20/20 09:41 Dose: 40 mg Documented by: Polyethylene Glycol (Polyethylene Glycol 3350 17 Gm Packet) 17 gm PO DAILY [facility] Last Admin: 04/20/20 09:41 Dose: 17 gm Documented by: Senna/Docusate Sodium (Senna/Docusate Sodium 1 Tablet) 2 tablet PO BID PRN PRN Reason: Constipation Sodium Chloride (0.9% Saline Lock 10 Ml Syringe) 10 - 40 ml IV UD PRN PRN Reason: SALINE FLUSH Last Admin: 04/19/20 07:03 Dose: 10 ml Documented by: Sodium Hypochlorite (Dakin's Venessa Half Strength (=0.25%)) 1 applic TOPICAL DAILY [facility]; Protocol Last Admin: 04/20/20 08:33 Dose: 1 applicatio Documented by: Tizanidine HCl (Tizanidine Hcl 2 Mg Tablet) 4 mg PO Q8H PRN PRN PRN Reason: SPASMS STROKE Vital Signs/Narrative: Vital Signs Temp Pulse 04/21/20 05:15 98.5 F 04/21/20 03:17 102 H Medical Necessity - Tobacco Use Smoking Status: Former smoker Assessment/Plan All Active Problems Severe sepsis (Acute) Hyponatremia (Acute) Thrombocytosis (Acute) Lactic acidosis (Acute) Transaminitis (Acute) Abscess of right groin (Resolved) Hyponatremia (Resolved) MRSA bacteremia (Resolved) The patient is a 65 y/o M w/ PMHx: Chronic sacral, ischial wounds, Chronic BL Heel wounds following w/ Podiatry, Chronic anemia, HTN, HLD, Anxiety and Depression, Hx Rectal CA, PAD. Chronic hepatitis C who presents to the [facility] ED on 04/15/20 with history of increasing fatigue, malaise with abnormal labs with concern for possible infection of his wounds. 1. Acute severe sepsis secondary to MRSA bacteremia likely secondary to infected sacral ulcer with XDR Acinetobacter, MRSA, ecoli, pseudomonas, and GNR wound growth from also bilateral heel wounds and chronic toe wounds: Patient admitted, initiated on broad-spectrum antibiotic therapy, OR 04/17/2020 with excision of sacral pressure sore stage IV with partial ostectomy for osteomyelitis, excision left ischial pressure sore stage IV with partial ostectomy for osteomyelitis, excision right ischial radiation pressure sore stage IV with partial ostectomy for osteomyelitis per Dr. Mesa, 04/20/2020 patient changed from vancomycin and Zosyn to vancomycin and c olistin/tigecycline/Flagyl regimen given elevated temperatures and wound cultures with XDR Acinetobacter, MRSA, ecoli, pseudomonas, and GNR, repeat blood culture 04/19/2020 pending, urinalysis mild appearance with pending repeat urine culture although during presentation has had urine culture with less than 100,000 colony-forming units, chest x-ray with no acute findings on 04/20/2020, lactic acid 1.5, administered 1 L normal saline bolus and initiated on maintenance IV fluids given worsened presentation and placed on telemetry status. 04/21/2020 patient clinically improved, discontinuation of telemetry status, per discussion with infectious disease we will plan placement of PICC line, no growth noted still on 04/18/2020 blood cultures normal on 04/19/2020 blood cultures. Pending 04/20/2020 urine culture. Awaiting 04/21/2020 CBC, CMP. 2. Chronic bilateral lower extremity heel wounds and right first and second distal toe wounds, dry gangrene complicated by PAD: Possibly contributing to #1, podiatry consulted and following, continued wound RN evaluation and routine dressing changes, per discussion with podiatry similar to prior and not worsened appearance, continued on very broad-spectrum antibiotic therapy recently altered as noted 04/20/2020 per infectious disease who is following. LISBETH/PVR right lower extremity obtained and full read pending, plan arterial duplex per podiatry/vascular surgeon Dr. Samuels. Possible intervention Monday if blood cultures remain negative and cleared per infectious disease. 3. Acute on chronic hyponatremia, likely component hypokalemia: Admission sodium 119, TSH, magnesium assessment normal, judiciously hydrated, 04/20/2020 sodium 124, urine osmolality 376, urine sodium 103, urine creatinine 16.70, FeNa 5.19%, awaiting repeat 04/21/2020 CMP. If ongoing will plan consultation with Dr. Rae, Nephrology. 4. Chronic anemia, iron deficiency anemia: We will continue patient home iron supplementation, admission hemoglobin 8.4, similar even following surgery, 04/20/2020 hemoglobin 8.3, continue to trend. 04/21/20 CBC pending. 5. Moderate malnutrition: Evidenced per habitus, obvious muscle and fat loss, poor wound healing, nutrition consulted, continue supplementations. 6. Hypertension: Patient with ongiong low-normal BPs during presentation, holding patient amlodipine, metoprolol, add back once appropriate. Lack of patient BB may also be contributing to his HR. 7. Hyperlipidemia: We will continue patient home Zetia regimen. 8. Anxiety and depression: We will continue patient home bupropion, escitalopram regimen. 9. History of anal cancer: Status post colostomy, chemo and radiation, remission status considered. 10. GERD: We will continue patient home PPI. 11. DVT prophylaxis: SCDs, Lovenox. 12. CODE STATUS: Full code.
--- NOTE | 2020-04-21 09:43 | PCM.PROGNOTE ---
Patient Problems: Active and Suspected Problems Severe sepsis (Acute) Hyponatremia (Acute) Thrombocytosis (Acute) Lactic acidosis (Acute) Transaminitis (Acute) Malnutrition (Suspected) Subjective: Patient seen bedside resting comfortably. Patient denies any new pedal complaints. Patient denies N/F/V/C/CP/SOB/steaking or purulence to feet - Physical Exam Vitals/I&O's: Vital Signs Temp Pulse Resp BP Pulse Ox 97.8 F 97 18 102/48 L 96 04/21/20 08:12 04/21/20 08:12 04/21/20 08:12 04/21/20 08:12 04/21/20 08:12 Oxygen Flow Rate (L/min) 1 Oxygen Delivery Method Room Air Weight: 90.8 kg Body Mass Index (BMI) 31.4 Intake and Output for Last 24 Hours 04/19/20 04/20/20 04/21/20 23:59 23:59 23:59 Intake Total 2235.00 / 2235.00 3331.17 / 3331.17 1172.17 / 1172.17 Output Total 4300 / 4300 2625 / 2625 1550 / 1550 Balance -2065.00 / -2065.00 706.17 / 706.17 -377.83 / -377.83 General: Alert, Oriented x3 HEENT: Atraumatic Extremities: No clubbing, No edema, Diminished Peripheral Pulses, Tenderness - to heel ulceration, - - delayed CFT Skin: Ulcer/ Wound - bilateral heel ulcerations and right 2/3 digits with bone exposed with necrotic tissues noted. Necrotic area noted to tuft of right hallux. Stable, no erythema, edema, drainage. Musculoskeletal: Tenderness - heel ulcerations Neurological: - - decreased light touch sensation Psych/Mental Status: Normal Affect, Appropriate Microbiology Past 72 Hours 04/17/20 14:57 Tissue - Ischial Pressure Sore Gram Stain - Final 04/17/20 14:57 Tissue - Ischial Pressure Sore Wound Culture - Final Pseudomonas aeroginosa Acinetobacter baumannii Meth. resistant Staph. aureus 04/17/20 14:57 Tissue - Ischial Pressure Sore Anaerobic Culture - Preliminary Checking for anaerobes, further studies to follow. 04/17/20 14:57 Bone - Ischial Bone Gram Stain - Final 04/17/20 14:57 Bone - Ischial Bone Wound Culture - Final Pseudomonas aeroginosa Acinetobacter baumannii Proteus mirabilis Escherichia coli Meth. resistant Staph. aureus 04/17/20 14:57 Bone - Ischial Bone Anaerobic Culture - Preliminary Checking for anaerobes, further studies to follow. 04/17/20 14:57 Bone - Ischium Gram Stain - Final 04/17/20 14:57 Bone - Ischium Wound Culture - Final Pseudomonas aeroginosa Acinetobacter baumannii Meth. resistant Staph. aureus 04/17/20 14:57 Bone - Ischium Anaerobic Culture - Preliminary Checking for anaerobes, further studies to follow. 04/17/20 14:57 Tissue - Sacral Gram Stain - Final 04/17/20 14:57 Tissue - Sacral Wound Culture - Preliminary Acinetobacter baumannii 04/17/20 14:57 Tissue - Sacral Anaerobic Culture - Preliminary Checking for anaerobes, further studies to follow. 04/17/20 14:57 Tissue - Ischial Pressure Sore Gram Stain - Final 04/17/20 14:57 Tissue - Ischial Pressure Sore Wound Culture - Preliminary Pseudomonas aeroginosa Acinetobacter baumannii Meth. resistant Staph. aureus 04/17/20 14:57 Tissue - Ischial Pressure Sore Anaerobic Culture - Preliminary Checking for anaerobes, further studies to follow. 04/15/20 10:45 Blood Culture (Wb) - Left Hand Blood Culture - Final No growth in 5 days. 04/15/20 10:45 Blood Culture (Wb) - Left Forearm Blood Culture - Final Meth. resistant Staph. aureus 04/17/20 14:57 Bone - Sacral Bone Gram Stain - Final 04/17/20 14:57 Bone - Sacral Bone Wound Culture - Preliminary Pseudomonas aeroginosa Gram negative jesus Meth. resistant Staph. aureus 04/17/20 14:57 Bone - Sacral Bone Anaerobic Culture - Preliminary Checking for anaerobes, further studies to follow. 04/18/20 05:30 Blood Culture (Wb) - Left Wrist Blood Culture - Preliminary No growth in 48 hours. 04/17/20 06:24 Blood Culture (Wb) - Left Hand Blood Culture - Preliminary No growth in 48 hours. 04/15/20 11:08 Urine Catheter - Walker Urine Culture - Final Escherichia coli Proteus mirabilis 04/16/20 09:35 Blood Culture (Wb) - Anticubital Left Blood Culture - Preliminary No growth in 48 hours. Laboratory Results 04/19/20 05:05: Diff Path Review Reviewed 04/20/20 05:42: Diff Path Review Reviewed 04/20/20 11:00: Urine Color Yellow, Urine Clarity Sl. Cloudy, Urine pH 6.0, Ur Specific [place] 1.015, Urine Protein 100 H, Urine Glucose (UA) Normal, Urine Ketones Negative, Urine Occult Blood 250 H, Urine Nitrite Negative, Urine Bilirubin Negative, Urine Urobilinogen 1 H, Ur Leukocyte Esterase 100 H, Urine RBC 25-50 SEEN, Urine WBC 10-25 SEEN, Ur Squamous Epith Cells 0-5 SEEN, Urine Bacteria 1+, Urine Mucus 0 SEEN 04/20/20 15:50: Lactic Acid 1.5 04/20/20 21:39: Urine Osmolality 376 04/20/20 21:39: Urine Creatinine 16.70 04/20/20 21:39: Ur Random Sodium 103 Current Medications Acetaminophen (Acetaminophen 325 Mg Tablet) 650 mg PO Q6H PRN PRN PRN Reason: Pain Score 1-10/Temp > 100.7 F Last Admin: 04/21/20 05:20 Dose: 650 mg Documented by: Al Hydroxide/Mg Hydroxide (Mag Hydrox/Al Hydrox/Simeth 30 Ml Udc) 30 ml PO Q6H PRN PRN PRN Reason: Gastric Burning Albuterol Sulfate (Albuterol 2.5 Mg/3 Ml Vial.Neb.) 2.5 mg INHALATION Q2H PRN PRN PRN Reason: SOB/Wheezing Amlodipine Besylate (Amlodipine 5 Mg Tablet) 5 mg PO DAILY [facility] Last Admin: 04/20/20 09:40 Dose: Not Given Documented by: Aspirin (Aspirin E.C. 81 Mg Tablet) 81 mg PO DAILY@0800 [facility] Last Admin: 04/20/20 08:32 Dose: 81 mg Documented by: Bupropion HCl (Bupropion (Xl) 300 Mg Tablet.Xl) 300 mg PO QHS [facility] Last Admin: 04/20/20 21:33 Dose: 300 mg Documented by: Diphenhydramine HCl (Diphenhydramine 25 Mg Capsule) 25 mg PO Q6H PRN PRN PRN Reason: ITCHING Docusate Sodium (Docusate Sodium 100 Mg Capsule) 200 mg PO BID [facility] Last Admin: 04/20/20 21:32 Dose: 200 mg Documented by: Ezetimibe (Ezetimibe 10 Mg Tablet) 10 mg PO QHS [facility] Last Admin: 04/20/20 21:33 Dose: 10 mg Documented by: Enoxaparin Sodium (Enoxaparin 40 Mg/0.4 Ml Syringe) 40 mg SC DAILY [facility] Last Admin: 04/20/20 09:41 Dose: 40 mg Documented by: Escitalopram Oxalate (Escitalopram Oxalate 10 Mg Tablet) 10 mg PO DAILY [facility] Last Admin: 04/20/20 09:41 Dose: 10 mg Documented by: Ferrous Gluconate (Ferrous Gluconate 324 Mg Tablet) 324 mg PO BIDCM [facility] Last Admin: 04/20/20 18:25 Dose: 324 mg Documented by: Fluticasone Propionate (Fluticasone 0.05% 1 [place] Nasal.Sry) 1 spray NASAL QHS [facility] Last Admin: 04/20/20 21:33 Dose: 1 spray Documented by: Gabapentin (Gabapentin 600 Mg Tablet) 600 mg PO TID [facility] Last Admin: 04/21/20 05:10 Dose: 600 mg Documented by: Guaifenesin (Guaifenesin 10 Ml Udc (200mg/10ml)) 5 ml PO Q6H PRN PRN PRN Reason: COUGH Hydralazine HCl (Hydralazine 20 Mg/Ml Vial) 10 mg IV Q4H PRN PRN PRN Reason: SBP > 160 Hydromorphone HCl (Hydromorphone 0.5 Mg/0.5 Ml Syringe) 0.5 mg IV Q4H PRN PRN PRN Reason: BREAKTHROUGH Pain Score 6-10 Last Admin: 04/19/20 17:50 Dose: 0.5 mg Documented by: Vancomycin IV Pharmacy to Dose (1 ea/ Sodium Chloride) 500 mls @ 250 mls/hr IV PRN PRN; Protocol PRN Reason: Rx to Dose Vancomycin HCl 1,250 mg/ (Sodium Chloride) 275 mls @ 167 mls/hr IV Q12H [facility] Last Infusion: 04/20/20 23:04 Dose: Infused Documented by: Sodium Chloride () 250 mls @ 15 mls/hr IV .[id number] PRN PRN Reason: Saline Flush Last Infusion: 04/21/20 05:43 Dose: 15 mls/hr Documented by: Sodium Chloride () 250 mls @ 15 mls/hr IV .[id number] PRN PRN Reason: Additional IVPB Infusion Last Infusion: 04/17/20 16:35 Dose: Infused Documented by: Colistimethate Sodium 150 mg/ (Sodium Chloride) 50 mls @ 100 mls/hr IV Q8 [facility] Last Infusion: 04/21/20 05:42 Dose: Infused Documented by: Tigecycline 50 mg/ Sodium (Chloride) 105 mls @ 105 mls/hr IV Q12 [facility] Last Infusion: 04/20/20 23:47 Dose: Infused Documented by: Sodium Chloride () 1,000 mls @ 125 mls/hr IV .Q8H [facility] Last Admin: 04/21/20 02:36 Dose: 125 mls/hr Documented by: Ipratropium [place] (Ipratropium 0.5 Mg/2.5 Ml Solution) 0.5 mg INHALATION Q6HWA.RT [facility] Last Admin: 04/21/20 06:57 Dose: 0.5 mg Documented by: Melatonin (Melatonin 3 Mg Tablet) 3 mg PO QHS PRN PRN PRN Reason: INSOMNIA Metronidazole (Metronidazole 500 Mg Tablet) 500 mg PO TID [facility] Last Admin: 04/21/20 05:10 Dose: 500 mg Documented by: Multivitamins (Multivitamins,Therapeutic Tablet) 1 tablet PO DAILYCM [facility] Last Admin: 04/20/20 08:32 Dose: 1 tablet Documented by: Nutritional Formula (Nutritional Supplement (Chuy) Packet) 1 packet PO DAILY [facility] Last Admin: 04/20/20 09:39 Dose: Not Given Documented by: Nutritional Formula (Lactose Free) (Ensure Enlive 120 Ml Liquid) 120 ml PO 4X/DAY [facility] Last Admin: 04/20/20 21:35 Dose: 120 ml Documented by: Ondansetron HCl (Ondansetron 4 Mg/2 Ml Vial) 4 mg IV Q8H PRN PRN PRN Reason: NAUSEA/VOMITING Oxybutynin Chloride (Oxybutynin 5 Mg Tablet) 5 mg PO BID [facility] Last Admin: 04/20/20 21:32 Dose: 5 mg Documented by: Oxycodone HCl (Oxycodone Cr 20 Mg Tablet) 20 mg PO Q12 [facility] Last Admin: 04/20/20 21:32 Dose: 20 mg Documented by: Oxycodone HCl (Oxycodone 5 Mg Tablet) 10 mg PO Q6H PRN PRN PRN Reason: Pain Score 6-10 Last Admin: 04/21/20 05:19 Dose: 10 mg Documented by: Pantoprazole Sodium (Pantoprazole Sodium 40 Mg Tablet) 40 mg PO DAILY [facility] Last Admin: 04/20/20 09:41 Dose: 40 mg Documented by: Polyethylene Glycol (Polyethylene Glycol 3350 17 Gm Packet) 17 gm PO DAILY [facility] Last Admin: 04/20/20 09:41 Dose: 17 gm Documented by: Senna/Docusate Sodium (Senna/Docusate Sodium 1 Tablet) 2 tablet PO BID PRN PRN Reason: Constipation Sodium Chloride (0.9% Saline Lock 10 Ml Syringe) 10 - 40 ml IV UD PRN PRN Reason: SALINE FLUSH Last Admin: 04/19/20 07:03 Dose: 10 ml Documented by: Sodium Hypochlorite (Dakin's Venessa Half Strength (=0.25%)) 1 applic TOPICAL DAILY [facility]; Protocol Last Admin: 04/20/20 08:33 Dose: 1 applicatio Documented by: Tizanidine HCl (Tizanidine Hcl 2 Mg Tablet) 4 mg PO Q8H PRN PRN PRN Reason: SPASMS Medical Necessity - Tobacco Use Smoking Status: Former smoker Assessment/Plan All Active Problems Severe sepsis (Acute) Hyponatremia (Acute) Thrombocytosis (Acute) Lactic acidosis (Acute) Transaminitis (Acute) Abscess of right groin (Resolved) Hyponatremia (Resolved) MRSA bacteremia (Resolved) Right second toe gangrenous changes with exposed phalanx consistent with osteomyelitis /bone with necrotic bone (previously treated, stable) Right hallux gangrenous changes, stable and no infection Bilateral heel unstageable ulcer, no local infection and stable Peripheral vascular disease, chronic Malnutrition suspected Ischial and sacral pressure ulcers with prior treated osteomyelitis; status post OR debridement with Dr. Mesa Bacteremia UTI Other comorbidities I reviewed and discussed his case. His vital signs remained stable. He has leukocytosis with a white blood cell count of 15.9. ID is consulted and managing abx. MRSA bacteremia and sacral wound with polymicrobial infection He does not appear to have an acute foot infection. I do not recommend culture to the foot at his very dry stable eschar sites. He does not appear to have wet gangrene, cellulitis, or purulence. His prior vascular work up and intervention is noted. On 12/04/2019, he had a balloon angioplasty of the right mid popliteal through the entire SFA and common femoral artery with balloon with Dr. Samuels. He does not appear to have progressive improvement or worsening from a wound healing standpoint. There are no local signs of infection on either foot however it is noted he was previously treated for osteo of the toe and he has multiple areas of dry necrotic tissue which will remain a source of infection. New arterial studies show LISBETH Left 0.46 and Right 0.84 with monophasic DP bilateral Dr Samuels will review results with possible intervention Monday. I recommend palliative care approach for his feet at this time. I recommend proceeding with urgent toe amputation or debridement of other sites if this turns into a wet progressive or purulence presentation. Dry dressings were applied in a well padded manner. To continue to hang feet over stacked blankets while in bed to alleviate pressure. Podiatry will continue to follow. Please ask if any questions or concerns.
--- NOTE | 2020-04-21 09:43 | PCS.PANDOC ---
PANDEMIC DOCUMENTATION INITIATED: Date: 02/17/2020 Time:
--- NOTE | 2020-04-21 09:55 | NURSING ---
phoned PICC line dispatch center and information given. states will notify non emergency services ambulance driver nurse and call back with ETA of arrival.
--- NOTE | 2020-04-21 09:56 | PN.ID_ITS ---
Patient Problems: Active and Suspected Problems Severe sepsis (Acute) Hyponatremia (Acute) Thrombocytosis (Acute) Lactic acidosis (Acute) Transaminitis (Acute) Malnutrition (Suspected) Subjective: Feeling ok, no fevers - Physical Exam Vitals/I&O's: Vital Signs Temp Pulse Resp BP Pulse Ox 97.8 F 97 18 102/48 L 96 04/21/20 08:12 04/21/20 08:12 04/21/20 08:12 04/21/20 08:12 04/21/20 08:12 Oxygen Flow Rate (L/min) 1 Oxygen Delivery Method Room Air Weight: 90.8 kg Body Mass Index (BMI) 31.4 Intake and Output for Last 24 Hours 04/19/20 04/20/20 04/21/20 23:59 23:59 23:59 Intake Total 2235.00 / 2235.00 3331.17 / 3331.17 1172.17 / 1172.17 Output Total 4300 / 4300 2625 / 2625 1550 / 1550 Balance -2065.00 / -2065.00 706.17 / 706.17 -377.83 / -377.83 General: Alert, Cooperative, No apparent distress Lungs: Clear to auscultation, Normal air movement Cardiovascular: Regular rate, Regular Rhythm Abdomen: Soft, Non Tender, Non-Distended Skin: No rashes Microbiology Past 72 Hours 04/17/20 14:57 Tissue - Ischial Pressure Sore Gram Stain - Final 04/17/20 14:57 Tissue - Ischial Pressure Sore Wound Culture - Final Pseudomonas aeroginosa Acinetobacter baumannii Meth. resistant Staph. aureus 04/17/20 14:57 Tissue - Ischial Pressure Sore Anaerobic Culture - Preliminary Checking for anaerobes, further studies to follow. 04/17/20 14:57 Bone - Ischial Bone Gram Stain - Final 04/17/20 14:57 Bone - Ischial Bone Wound Culture - Final Pseudomonas aeroginosa Acinetobacter baumannii Proteus mirabilis Escherichia coli Meth. resistant Staph. aureus 04/17/20 14:57 Bone - Ischial Bone Anaerobic Culture - Preliminary Checking for anaerobes, further studies to follow. 04/17/20 14:57 Bone - Ischium Gram Stain - Final 04/17/20 14:57 Bone - Ischium Wound Culture - Final Pseudomonas aeroginosa Acinetobacter baumannii Meth. resistant Staph. aureus 04/17/20 14:57 Bone - Ischium Anaerobic Culture - Preliminary Checking for anaerobes, further studies to follow. 04/17/20 14:57 Tissue - Sacral Gram Stain - Final 04/17/20 14:57 Tissue - Sacral Wound Culture - Preliminary Acinetobacter baumannii 04/17/20 14:57 Tissue - Sacral Anaerobic Culture - Preliminary Checking for anaerobes, further studies to follow. 04/17/20 14:57 Tissue - Ischial Pressure Sore Gram Stain - Final 04/17/20 14:57 Tissue - Ischial Pressure Sore Wound Culture - Preliminary Pseudomonas aeroginosa Acinetobacter baumannii Meth. resistant Staph. aureus 04/17/20 14:57 Tissue - Ischial Pressure Sore Anaerobic Culture - Preliminar y Checking for anaerobes, further studies to follow. 04/15/20 10:45 Blood Culture (Wb) - Left Hand Blood Culture - Final No growth in 5 days. 04/15/20 10:45 Blood Culture (Wb) - Left Forearm Blood Culture - Final Meth. resistant Staph. aureus 04/17/20 14:57 Bone - Sacral Bone Gram Stain - Final 04/17/20 14:57 Bone - Sacral Bone Wound Culture - Preliminary Pseudomonas aeroginosa Gram negative jesus Meth. resistant Staph. aureus 04/17/20 14:57 Bone - Sacral Bone Anaerobic Culture - Preliminary Checking for anaerobes, further studies to follow. 04/18/20 05:30 Blood Culture (Wb) - Left Wrist Blood Culture - Preliminary No growth in 48 hours. 04/17/20 06:24 Blood Culture (Wb) - Left Hand Blood Culture - Preliminary No growth in 48 hours. 04/15/20 11:08 Urine Catheter - Walker Urine Culture - Final Escherichia coli Proteus mirabilis 04/16/20 09:35 Blood Culture (Wb) - Anticubital Left Blood Culture - Preliminary No growth in 48 hours. Laboratory Results 04/19/20 05:05: Diff Path Review Reviewed 04/20/20 05:42: Diff Path Review Reviewed 04/20/20 11:00: Urine Color Yellow, Urine Clarity Sl. Cloudy, Urine pH 6.0, Ur Specific [place] 1.015, Urine Protein 100 H, Urine Glucose (UA) Normal, Urine Ketones Negative, Urine Occult Blood 250 H, Urine Nitrite Negative, Urine Bilirubin Negative, Urine Urobilinogen 1 H, Ur Leukocyte Esterase 100 H, Urine RBC 25-50 SEEN, Urine WBC 10-25 SEEN, Ur Squamous Epith Cells 0-5 SEEN, Urine Bacteria 1+, Urine Mucus 0 SEEN 04/20/20 15:50: Lactic Acid 1.5 04/20/20 21:39: Urine Osmolality 376 04/20/20 21:39: Urine Creatinine 16.70 04/20/20 21:39: Ur Random Sodium 103 Current Medications Acetaminophen (Acetaminophen 325 Mg Tablet) 650 mg PO Q6H PRN PRN PRN Reason: Pain Score 1-10/Temp > 100.7 F Last Admin: 04/21/20 05:20 Dose: 650 mg Documented by: Al Hydroxide/Mg Hydroxide (Mag Hydrox/Al Hydrox/Simeth 30 Ml Udc) 30 ml PO Q6H PRN PRN PRN Reason: Gastric Burning Albuterol Sulfate (Albuterol 2.5 Mg/3 Ml Vial.Neb.) 2.5 mg INHALATION Q2H PRN PRN PRN Reason: SOB/Wheezing Amlodipine Besylate (Amlodipine 5 Mg Tablet) 5 mg PO DAILY [facility] Last Admin: 04/20/20 09:40 Dose: Not Given Documented by: Aspirin (Aspirin E.C. 81 Mg Tablet) 81 mg PO DAILY@0800 [facility] Last Admin: 04/20/20 08:32 Dose: 81 mg Documented by: Bupropion HCl (Bupropion (Xl) 300 Mg Tablet.Xl) 300 mg PO QHS [facility] Last Admin: 04/20/20 21:33 Dose: 300 mg Documented by: Diphenhydramine HCl (Diphenhydramine 25 Mg Capsule) 25 mg PO Q6H PRN PRN PRN Reason: ITCHING Docusate Sodium (Docusate Sodium 100 Mg Capsule) 200 mg PO BID [facility] Last Admin: 04/20/20 21:32 Dose: 200 mg Documented by: Ezetimibe (Ezetimibe 10 Mg Tablet) 10 mg PO QHS [facility] Last Admin: 04/20/20 21:33 Dose: 10 mg Documented by: Enoxaparin Sodium (Enoxaparin 40 Mg/0.4 Ml Syringe) 40 mg SC DAILY [facility] Last Admin: 04/20/20 09:41 Dose: 40 mg Documented by: Escitalopram Oxalate (Escitalopram Oxalate 10 Mg Tablet) 10 mg PO DAILY [facility] Last Admin: 04/20/20 09:41 Dose: 10 mg Documented by: Ferrous Gluconate (Ferrous Gluconate 324 Mg Tablet) 324 mg PO BIDCM [facility] Last Admin: 04/20/20 18:25 Dose: 324 mg Documented by: Fluticasone Propionate (Fluticasone 0.05% 1 [place] Nasal.Sry) 1 spray NASAL QHS [facility] Last Admin: 04/20/20 21:33 Dose: 1 spray Documented by: Gabapentin (Gabapentin 600 Mg Tablet) 600 mg PO TID [facility] Last Admin: 04/21/20 05:10 Dose: 600 mg Documented by: Guaifenesin (Guaifenesin 10 Ml Udc (200mg/10ml)) 5 ml PO Q6H PRN PRN PRN Reason: COUGH Hydralazine HCl (Hydralazine 20 Mg/Ml Vial) 10 mg IV Q4H PRN PRN PRN Reason: SBP > 160 Hydromorphone HCl (Hydromorphone 0.5 Mg/0.5 Ml Syringe) 0.5 mg IV Q4H PRN PRN PRN Reason: BREAKTHROUGH Pain Score 6-10 Last Admin: 04/19/20 17:50 Dose: 0.5 mg Documented by: Vancomycin IV Pharmacy to Dose (1 ea/ Sodium Chloride) 500 mls @ 250 mls/hr IV PRN PRN; Protocol PRN Reason: Rx to Dose Vancomycin HCl 1,250 mg/ (Sodium Chloride) 275 mls @ 167 mls/hr IV Q12H [facility] Last Infusion: 04/20/20 23:04 Dose: Infused Documented by: Sodium Chloride () 250 mls @ 15 mls/hr IV .[id number] PRN PRN Reason: Saline Flush Last Infusion: 04/21/20 05:43 Dose: 15 mls/hr Documented by: Sodium Chloride () 250 mls @ 15 mls/hr IV .[id number] PRN PRN Reason: Additional IVPB Infusion Last Infusion: 04/17/20 16:35 Dose: Infused Documented by: Colistimethate Sodium 150 mg/ (Sodium Chloride) 50 mls @ 100 mls/hr IV Q8 [facility] Last Infusion: 04/21/20 05:42 Dose: Infused Documented by: Tigecycline 50 mg/ Sodium (Chloride) 105 mls @ 105 mls/hr IV Q12 [facility] Last Infusion: 04/20/20 23:47 Dose: Infused Documented by: Sodium Chloride () 1,000 mls @ 125 mls/hr IV .Q8H [facility] Last Admin: 04/21/20 02:36 Dose: 125 mls/hr Documented by: Ipratropium [place] (Ipratropium 0.5 Mg/2.5 Ml Solution) 0.5 mg INHALATION Q6HWA.RT [facility] Last Admin: 04/21/20 06:57 Dose: 0.5 mg Documented by: Melatonin (Melatonin 3 Mg Tablet) 3 mg PO QHS PRN PRN PRN Reason: INSOMNIA Metronidazole (Metronidazole 500 Mg Tablet) 500 mg PO TID [facility] Last Admin: 04/21/20 05:10 Dose: 500 mg Documented by: Multivitamins ([facility],Therapeutic Tablet) [facility] Last Admin: 04/20/20 08:32 Dose: 1 tablet Documented by: Nutritional Formula (Nutritional Supplement (Chuy) Packet) 1 packet PO DAILY [facility] Last Admin: 04/20/20 09:39 Dose: Not Given Documented by: Nutritional Formula (Lactose Free) (Ensure Enlive 120 Ml Liquid) 120 ml PO 4X/DAY [facility] Last Admin: 04/20/20 21:35 Dose: 120 ml Documented by: Ondansetron HCl (Ondansetron 4 Mg/2 Ml Vial) 4 mg IV Q8H PRN PRN PRN Reason: NAUSEA/VOMITING Oxybutynin Chloride (Oxybutynin 5 Mg Tablet) 5 mg PO BID [facility] Last Admin: 04/20/20 21:32 Dose: 5 mg Documented by: Oxycodone HCl (Oxycodone Cr 20 Mg Tablet) 20 mg PO Q12 [facility] Last Admin: 04/20/20 21:32 Dose: 20 mg Documented by: Oxycodone HCl (Oxycodone 5 Mg Tablet) 10 mg PO Q6H PRN PRN PRN Reason: Pain Score 6-10 Last Admin: 04/21/20 05:19 Dose: 10 mg Documented by: Pantoprazole Sodium (Pantoprazole Sodium 40 Mg Tablet) 40 mg PO DAILY [facility] Last Admin: 04/20/20 09:41 Dose: 40 mg Documented by: Polyethylene Glycol (Polyethylene Glycol 3350 17 Gm Packet) 17 gm PO DAILY [facility] Last Admin: 04/20/20 09:41 Dose: 17 gm Documented by: Senna/Docusate Sodium (Senna/Docusate Sodium 1 Tablet) 2 tablet PO BID PRN PRN Reason: Constipation Sodium Chloride (0.9% Saline Lock 10 Ml Syringe) 10 - 40 ml IV UD PRN PRN Reason: SALINE FLUSH Last Admin: 04/19/20 07:03 Dose: 10 ml Documented by: Sodium Hypochlorite (Dakin's Venessa Half Strength (=0.25%)) 1 applic TOPICAL DAILY [facility]; Protocol Last Admin: 04/20/20 08:33 Dose: 1 applicatio Documented by: Tizanidine HCl (Tizanidine Hcl 2 Mg Tablet) 4 mg PO Q8H PRN PRN PRN Reason: SPASMS Medical Necessity - Tobacco Use Smoking Status: Former smoker Route of nutrition/ use of supplements: [] Nutritional Intake: [] IV Site: [] Walker Catheter: [] - Assessment/Plan Antibiotics: [] Assessment/Plan: [] Active and Suspected Problems Severe sepsis (Acute) Hyponatremia (Acute) Thrombocytosis (Acute) Lactic acidosis (Acute) Transaminitis (Acute) Malnutrition (Suspected) severe sepsis with MRSA bacteremia likely due to infected sacral ulcer - seen by podiatry and plastics. Taken to OR 2/ by Dr. Mesa. Bcx have cleared. TTE with no veg. Surg cxs with XDR Acinetobacter, MRSA, ecoli, pseudomonas, and proteus. Requested additional susc testing from the micro lab of this [facility]. In contact iso. Cont vanc, colistin/tigecycline/flagyl. Ok for picc. No fever last night. Will follow, d/w Dr. Mcguire
[2020-04-21] MEDS: Ferrous Gluconate 324 MG Tablet PO ×2 (10:15→16:41)
[2020-04-21] MEDS: Aspirin E.C. 81 MG Tablet PO (10:15)
[2020-04-21] MEDS: Multivitamins,Therapeutic Tablet 1 TABLET PO (10:15)
[2020-04-21] MEDS: Docusate Sodium 100 MG Capsule 200 MG PO ×2 (10:21→22:50)
[2020-04-21] MEDS: Oxybutynin 5 MG Tablet PO ×2 (10:22→22:50)
[2020-04-21] MEDS: Escitalopram Oxalate 10 MG Tablet PO (10:24)
[2020-04-21] MEDS: Enoxaparin 40 MG/0.4 ML Syringe SC (10:24)
[2020-04-21] MEDS: Polyethylene Glycol 3350 17 GM PACKET PO (10:25)
[2020-04-21] MEDS: Pantoprazole Sodium 40 MG Tablet PO (10:26)
[2020-04-21] MEDS: amLODIPine 5 MG Tablet PO (10:26)
[2020-04-21] MEDS: DAKIN'S SOL HALF STRENGTH (=0.25%) 1 APPLIC TOPICAL (10:44)
--- NOTE | 2020-04-21 11:11 | CASEMGMT ---
Addendum entered by Caroline Og 04/21/20 14:43: SHAHANA received message from Tala at [facility] asking if pt will get second COVID vaccination while pt is at [facility]. SHAHANA updated Tala that since pt didn't get first dose through [facility], [facility] is not able to provide second dose. Tala states understanding, will let their staff know. Tala confirms she received updated clinicals. Original Note: Social Work Note Pt is not medically ready for discharge today. Pt is getting PICC line placed. SHAHANA faxed updated clinicals to [facility]. SHAHANA wrote on fax coversheet that pt is not medically ready for discharge, will get PICC line placed today. Plan: Return to [facility] once medically cleared Caroline Og [employer]
[2020-04-21] MEDS: HYDROmorphone 0.5 MG/0.5 ML SYRINGE IV ×2 (15:49→22:45)
[2020-04-21] MEDS: tiZANidine HCl 2 MG Tablet 4 MG PO (16:41)
--- NOTE | 2020-04-21 17:00 | PCM.PN.SRG ---
Patient Problems: Active and Suspected Problems Severe sepsis (Acute) Hyponatremia (Acute) Thrombocytosis (Acute) Lactic acidosis (Acute) Transaminitis (Acute) Malnutrition (Suspected) Subjective: Post op #4 Patient resting in bed watching television. - Physical Exam Vitals/I&O's: Vital Signs Temp Pulse Resp BP Pulse Ox 99.3 F H 94 18 103/54 L 96 04/21/20 16:46 04/21/20 16:46 04/21/20 16:46 04/21/20 16:46 04/21/20 16:46 Oxygen Flow Rate (L/min) 1 Oxygen Delivery Method Room Air Weight: 200 lb 2.876 oz Body Mass Index (BMI) 31.4 Intake and Output for Last 24 Hours 04/19/20 04/20/20 04/21/20 23:59 23:59 23:59 Intake Total 2235.00 / 2235.00 3331.17 / 3331.17 4646.15 / 4646.15 Output Total 4300 / 4300 2625 / 2625 4350 / 4350 Balance -2065.00 / -2065.00 706.17 / 706.17 296.15 / 296.15 General: Alert, Oriented x3, Cooperative HEENT: Atraumatic Oral: Moist Mucosa Lungs: Normal air movement Cardiovascular: Regular rate Abdomen: Soft Extremities: No Calf Tenderness Skin: Ulcer/ Wound Musculoskeletal: Tenderness Neurological: Cranial nerves II-XII grossly intact Psych/Mental Status: Normal Affect, Appropriate Microbiology Past 72 Hours 04/17/20 14:57 Tissue - Ischial Pressure Sore Gram Stain - Final 04/17/20 14:57 Tissue - Ischial Pressure Sore Wound Culture - Final Pseudomonas aeroginosa Acinetobacter baumannii Meth. resistant Staph. aureus 04/17/20 14:57 Tissue - Ischial Pressure Sore Anaerobic Culture - Preliminary Checking for anaerobes, further studies to follow. 04/17/20 14:57 Bone - Ischium Gram Stain - Final 04/17/20 14:57 Bone - Ischium Wound Culture - Final Pseudomonas aeroginosa Acinetobacter baumannii Meth. resistant Staph. aureus 04/17/20 14:57 Bone - Ischium Anaerobic Culture - Preliminary Checking for anaerobes, further studies to follow. 04/17/20 14:57 Bone - Ischial Bone Gram Stain - Final 04/17/20 14:57 Bone - Ischial Bone Wound Culture - Final Pseudomonas aeroginosa Acinetobacter baumannii Proteus mirabilis Escherichia coli Meth. resistant Staph. aureus 04/17/20 14:57 Bone - Ischial Bone Anaerobic Culture - Preliminary Checking for anaerobes, further studies to follow. 04/17/20 14:57 Tissue - Sacral Gram Stain - Final 04/17/20 14:57 Tissue - Sacral Wound Culture - Final Acinetobacter baumannii 04/17/20 14:57 Tissue - Sacral Anaerobic Culture - Preliminary Checking for anaerobes, further studies to follow. 04/17/20 14:57 Tissue - Ischial Pressure Sore Gram Stain - Final 04/17/20 14:57 Tissue - Ischial Pressure Sore Wound Culture - Preliminary Pseudomonas aeroginosa Acinetobacter baumannii Meth. resistant Staph. aureus 04/17/20 14:57 Tissue - Ischial Pressure Sore Anaerobic Culture - Preliminary Checking for anaerobes, further studies to follow. 04/17/20 14:57 Bone - Sacral Bone Gram Stain - Final 04/17/20 14:57 Bone - Sacral Bone Wound Culture - Preliminary Pseudomonas aeroginosa Gram negative jesus Meth. resistant Staph. aureus 04/17/20 14:57 Bone - Sacral Bone Anaerobic Culture - Preliminary Checking for anaerobes, further studies to follow. 04/20/20 11:00 Urine, Catheterized Urine Culture - Preliminary Culture exhibits no growth. 04/16/20 09:35 Blood Culture (Wb) - Anticubital Left Blood Culture - Final No growth in 5 days. 04/15/20 10:45 Blood Culture (Wb) - Left Hand Blood Culture - Final No growth in 5 days. 04/15/20 10:45 Blood Culture (Wb) - Left Forearm Blood Culture - Final Meth. resistant Staph. aureus 04/18/20 05:30 Blood Culture (Wb) - Left Wrist Blood Culture - Preliminary No growth in 48 hours. 04/17/20 06:24 Blood Culture (Wb) - Left Hand Blood Culture - Preliminary No growth in 48 hours. 04/15/20 11:08 Urine Catheter - Walker Urine Culture - Final Escherichia coli Proteus mirabilis Laboratory Results 04/20/20 15:50: Lactic Acid 1.5 04/20/20 21:39: Urine Osmolality 376 04/20/20 21:39: Urine Creatinine 16.70 04/20/20 21:39: Ur Random Sodium 103 Current Medications Acetaminophen (Acetaminophen 325 Mg Tablet) 650 mg PO Q6H PRN PRN PRN Reason: Pain Score 1-10/Temp > 100.7 F Last Admin: 04/21/20 11:53 Dose: 650 mg Documented by: Al Hydroxide/Mg Hydroxide (Mag Hydrox/Al Hydrox/Simeth 30 Ml Udc) 30 ml PO Q6H PRN PRN PRN Reason: Gastric Burning Albuterol Sulfate (Albuterol 2.5 Mg/3 Ml Vial.Neb.) 2.5 mg INHALATION Q2H PRN PRN PRN Reason: SOB/Wheezing Amlodipine Besylate (Amlodipine 5 Mg Tablet) 5 mg PO DAILY [facility] Last Admin: 04/21/20 10:26 Dose: 5 mg Documented by: Aspirin (Aspirin E.C. 81 Mg Tablet) 81 mg PO DAILY@0800 [facility] Last Admin: 04/21/20 10:15 Dose: 81 mg Documented by: Bupropion HCl (Bupropion (Xl) 300 Mg Tablet.Xl) 300 mg PO QHS [facility] Last Admin: 04/20/20 21:33 Dose: 300 mg Documented by: Diphenhydramine HCl (Diphenhydramine 25 Mg Capsule) 25 mg PO Q6H PRN PRN PRN Reason: ITCHING Docusate Sodium (Docusate Sodium 100 Mg Capsule) 200 mg PO BID [facility] Last Admin: 04/21/20 10:21 Dose: 200 mg Documented by: Ezetimibe (Ezetimibe 10 Mg Tablet) 10 mg PO QHS [facility] Last Admin: 04/20/20 21:33 Dose: 10 mg Documented by: Enoxaparin Sodium (Enoxaparin 40 Mg/0.4 Ml Syringe) 40 mg SC DAILY [facility] Last Admin: 04/21/20 10:24 Dose: 40 mg Documented by: Escitalopram Oxalate (Escitalopram Oxalate 10 Mg Tablet) 10 mg PO DAILY [facility] Last Admin: 04/21/20 10:24 Dose: 10 mg Documented by: Ferrous Gluconate (Ferrous Gluconate 324 Mg Tablet) [facility] Last Admin: 04/21/20 16:41 Dose: 324 mg Documented by: Fluticasone Propionate (Fluticasone 0.05% 1 [place] Nasal.Sry) [facility] Last Admin: 04/20/20 21:33 Dose: 1 spray Documented by: Gabapentin (Gabapentin 600 Mg Tablet) 600 mg PO TID [facility] Last Admin: 04/21/20 13:58 Dose: 600 mg Documented by: Guaifenesin (Guaifenesin 10 Ml Udc (200mg/10ml)) 5 ml PO Q6H PRN PRN PRN Reason: COUGH Hydralazine HCl (Hydralazine 20 Mg/Ml Vial) 10 mg IV Q4H PRN PRN PRN Reason: SBP > 160 Hydromorphone HCl (Hydromorphone 0.5 Mg/0.5 Ml Syringe) 0.5 mg IV Q4H PRN PRN PRN Reason: BREAKTHROUGH Pain Score 6-10 Last Admin: 04/21/20 15:49 Dose: 0.5 mg Documented by: Vancomycin IV Pharmacy to Dose (1 ea/ Sodium Chloride) 500 mls @ 250 mls/hr IV PRN PRN; Protocol PRN Reason: Rx to Dose Vancomycin HCl 1,250 mg/ (Sodium Chloride) 275 mls @ 167 mls/hr IV Q12H [facility] Last Infusion: 04/21/20 16:46 Dose: Infused Documented by: Sodium Chloride () 250 mls @ 15 mls/hr IV .[id number] PRN PRN Reason: Saline Flush Last Infusion: 04/21/20 11:59 Dose: 0 mls/hr Documented by: Sodium Chloride () 250 mls @ 15 mls/hr IV .[id number] PRN PRN Reason: Additional IVPB Infusion Last Infusion: 04/17/20 16:35 Dose: Infused Documented by: Colistimethate Sodium 150 mg/ (Sodium Chloride) 50 mls @ 100 mls/hr IV Q8 [facility] Last Admin: 04/21/20 16:41 Dose: 100 mls/hr Documented by: Tigecycline 50 mg/ Sodium (Chloride) 105 mls @ 105 mls/hr IV Q12 [facility] Last Infusion: 04/21/20 11:15 Dose: Infused Documented by: Sodium Chloride () 1,000 mls @ 125 mls/hr IV .Q8H [facility] Last Infusion: 04/21/20 11:54 Dose: 0 mls/hr Documented by: Ipratropium [place] (Ipratropium 0.5 Mg/2.5 Ml Solution) 0.5 mg INHALATION Q6HWA.RT [facility] Last Admin: 04/21/20 13:34 Dose: 0.5 mg Documented by: Melatonin (Melatonin 3 Mg Tablet) 3 mg PO QHS PRN PRN PRN Reason: INSOMNIA Metronidazole (Metronidazole 500 Mg Tablet) 500 mg PO TID [facility] Last Admin: 04/21/20 13:57 Dose: 500 mg Documented by: Multivitamins (Multivitamins,Therapeutic Tablet) 1 tablet PO DAILYCM [facility] Last Admin: 04/21/20 10:15 Dose: 1 tablet Documented by: Nutritional Formula (Nutritional Supplement (Chuy) Packet) 1 packet PO DAILY [facility] Last Admin: 04/21/20 11:54 Dose: Not Given Documented by: Nutritional Formula (Lactose Free) (Ensure Enlive 120 Ml Liquid) 120 ml PO 4X/DAY [facility] Last Admin: 04/21/20 16:41 Dose: 120 ml Documented by: Ondansetron HCl (Ondansetron 4 Mg/2 Ml Vial) 4 mg IV Q8H PRN PRN PRN Reason: NAUSEA/VOMITING Oxybutynin Chloride (Oxybutynin 5 Mg Tablet) 5 mg PO BID [facility] Last Admin: 04/21/20 10:22 Dose: 5 mg Documented by: Oxycodone HCl (Oxycodone Cr 20 Mg Tablet) 20 mg PO Q12 [facility] Last Admin: 04/21/20 10:26 Dose: 20 mg Documented by: Oxycodone HCl (Oxycodone 5 Mg Tablet) 10 mg PO Q6H PRN PRN PRN Reason: Pain Score 6-10 Last Admin: 04/21/20 11:53 Dose: 10 mg Documented by: Pantoprazole Sodium (Pantoprazole Sodium 40 Mg Tablet) 40 mg PO DAILY [facility] Last Admin: 04/21/20 10:26 Dose: 40 mg Documented by: Polyethylene Glycol (Polyethylene Glycol 3350 17 Gm Packet) 17 gm PO DAILY [facility] Last Admin: 04/21/20 10:25 Dose: 17 gm Documented by: Senna/Docusate Sodium (Senna/Docusate Sodium 1 Tablet) 2 tablet PO BID PRN PRN Reason: Constipation Sodium Chloride (0.9% Saline Lock 10 Ml Syringe) 10 - 40 ml IV UD PRN PRN Reason: SALINE FLUSH Last Admin: 04/19/20 07:03 Dose: 10 ml Documented by: Sodium Hypochlorite (Dakin's Venessa Half Strength (=0.25%)) 1 applic TOPICAL DAILY [facility]; Protocol Last Admin: 04/21/20 10:44 Dose: 1 applicatio Documented by: Tizanidine HCl (Tizanidine Hcl 2 Mg Tablet) 4 mg PO Q8H PRN PRN PRN Reason: SPASMS Last Admin: 04/21/20 16:41 Dose: 4 mg Documented by: Medical Necessity - Tobacco Use Smoking Status: Former smoker Assessment/Plan All Active Problems Severe sepsis (Acute) Hyponatremia (Acute) Thrombocytosis (Acute) Lactic acidosis (Acute) Transaminitis (Acute) Abscess of right groin (Resolved) Hyponatremia (Resolved) MRSA bacteremia (Resolved) 1. Recurrent right ischial pressure sore, Stage IV. 2. Sepsis. 3. 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 4. Osteomyelitis. 5. MRSA. 6. Left ischial pressure sore, Stage IV. 7. Sacral pressure sore, Stage IV. 8. History of anal CA treated with chemotherapy and radiation therapy. 9. Anemia of chronic disease. 10. UTI. Pressure sores are stable. No active bleeding noted. Daily Dakin's dressing changes. Preliminary operative cultures of soft tissue show Acinetobacter baumannii, Pseudomana aeroginosa, and MRSA. Preliminary operative cultures of the bone show Pseudomonas aeroginosa, Acinetobacter baumannii, Acinetobacter baumannii #2, MRSA, Proteus mirabilis, and Escherichia coli. ID is consulted and has patient on Vancomycin, Colistin, Tigacycline and Flagyl. Urine culture showed E coli and Proteus mirabilis. Blood culture showed MRSA. Prealbumin was 10.1. Encourage nutritional supplementation with protein to help the healing process. Hgb was 7.8, yesterday 8.3. Has anemia of chronic disease. Operative blood loss was expected. Continue Iron supplementation. When medically stable, may return back to the [facility]. [facility].
[2020-04-21 21:29] LABS: Vancomycin, Trough Level 24.9 ug/mL (5.0-15.0)
[2020-04-21] MEDS: 0.9% Saline Lock 10 ML Syringe IV ×2 (21:46→22:45)
--- NOTE | 2020-04-21 22:03 | PHA.PHARE_ITS ---
Consult Pharmacy has been consulted to manage selected antiobiotic: Vancomycin Type of Consult: Follow-up Suspected Infection: Sepsis Prior Doses of Antibiotics Received/Current Regimen: Medications Discontinued Medications Vancomycin HCl 1,250 mg/ (Sodium Chloride) 275 mls @ 167 mls/hr IV Q12H [facility] Last Admin: 04/21/20 21:48 Dose: Not Given Labs: Sodium 124 mmol/L (136-145) L 04/20/20 05:42 Potassium 4.4 mmol/L (3.5-5.1) 04/20/20 05:42 Chloride 89 mmol/L (98-107) L 04/20/20 05:42 Carbon Dioxide 28.0 mmol/L (21.0-32.0) 04/20/20 05:42 Anion Gap 7 (5-15) 04/20/20 05:42 BUN 11 mg/dL (7-18) 04/20/20 05:42 Creatinine 0.44 mg/dL (0.70-1.30) L 04/20/20 05:42 Est GFR (MDRD) Af Amer 247 mL/min (>60) 04/20/20 05:42 Est GFR (MDRD) Non-Af 204 mL/min (>60) 04/20/20 05:42 BUN/Creatinine Ratio 24.9 RATIO (10-20) H 04/20/20 05:42 Glucose 89 mg/dL (74-106) 04/20/20 05:42 Vancomycin Trough 24.9 ug/mL (5.0-15.0) H 04/21/20 20:58 Microbiology: Microbiology 04/17/20 14:57 Tissue - Ischial Pressure Sore Gram Stain - Final 04/17/20 14:57 Tissue - Ischial Pressure Sore Wound Culture - Final Pseudomonas aeroginosa Acinetobacter baumannii Meth. resistant Staph. aureus 04/17/20 14:57 Tissue - Ischial Pressure Sore Anaerobic Culture - Preliminary Checking for anaerobes, further studies to follow. 04/17/20 14:57 Bone - Ischium Gram Stain - Final 04/17/20 14:57 Bone - Ischium Wound Culture - Final Pseudomonas aeroginosa Acinetobacter baumannii Meth. resistant Staph. aureus 04/17/20 14:57 Bone - Ischium Anaerobic Culture - Preliminary Checking for anaerobes, further studies to follow. 04/17/20 14:57 Bone - Ischial Bone Gram Stain - Final 04/17/20 14:57 Bone - Ischial Bone Wound Culture - Final Pseudomonas aeroginosa Acinetobacter baumannii Proteus mirabilis Escherichia coli Meth. resistant Staph. aureus 04/17/20 14:57 Bone - Ischial Bone Anaerobic Culture - Preliminary Checking for anaerobes, further studies to follow. 04/17/20 14:57 Tissue - Sacral Gram Stain - Final 04/17/20 14:57 Tissue - Sacral Wound Culture - Final Acinetobacter baumannii 04/17/20 14:57 Tissue - Sacral Anaerobic Culture - Preliminary Checking for anaerobes, further studies to follow. 04/17/20 14:57 Tissue - Ischial Pressure Sore Gram Stain - Final 04/17/20 14:57 Tissue - Ischial Pressure Sore Wound Culture - Preliminary Pseudomonas aeroginosa Acinetobacter baumannii Meth. resistant Staph. aureus 04/17/20 14:57 Tissue - Ischial Pressure Sore Anaerobic Culture - Pre liminary Checking for anaerobes, further studies to follow. 04/17/20 14:57 Bone - Sacral Bone Gram Stain - Final 04/17/20 14:57 Bone - Sacral Bone Wound Culture - Preliminary Pseudomonas aeroginosa Gram negative jesus Meth. resistant Staph. aureus 04/17/20 14:57 Bone - Sacral Bone Anaerobic Culture - Preliminary Checking for anaerobes, further studies to follow. 04/20/20 11:00 Urine, Catheterized Urine Culture - Preliminary Culture exhibits no growth. 04/16/20 09:35 Blood Culture (Wb) - Anticubital Left Blood Culture - Final No growth in 5 days. 04/15/20 10:45 Blood Culture (Wb) - Left Hand Blood Culture - Final No growth in 5 days. 04/15/20 10:45 Blood Culture (Wb) - Left Forearm Blood Culture - Final Meth. resistant Staph. aureus 04/18/20 05:30 Blood Culture (Wb) - Left Wrist Blood Culture - Preliminary No growth in 48 hours. 04/17/20 06:24 Blood Culture (Wb) - Left Hand Blood Culture - Preliminary No growth in 48 hours. 04/15/20 11:08 Urine Catheter - Walker Urine Culture - Final Escherichia coli Proteus mirabilis 04/17/20 01:50 Mucosa - Nose SARS-CoV-2 Antigen (Rapid) - Final Weight used for dosin.8 kg Estimated Creatinine Clearance: 68 Goal Trough: 15-20 mcg/mL Pharmacy Plan for Drug Dosing: Previous vancomycin dose was delayed (due to PICC placement?), so the trough level of 24.9 was only an 8.2 hour level. Even so the 04/21/20 evening dose was held and a random level will be drawn in the morning to determine further dosing. Pharmacy Service will continue to monitor and adjust dosing as required. Follow-Up Labs: Trough Vancomycin - random Labs to be done on [date and time ordered]: 04/22/20 @0900
[2020-04-21] MEDS: Fluticasone 0.05% 1 SPRAY NASAL.SRY NASAL (22:47)
[2020-04-21] MEDS: Ezetimibe 10 MG Tablet PO (22:50)
[2020-04-21] MEDS: buPROPion (XL) 300 MG TABLET.XL PO (22:50)
[2020-04-22] VITALS (8 sets, daily range): BP systolic 94–138; BP diastolic 53–111; PULSE 90–102; RESP 16–18; TEMP 36.4–38.6; O2SAT 93–96
[2020-04-22] MEDS: Acetaminophen 325 MG Tablet 650 MG PO ×2 (01:20→08:17)
[2020-04-22] MEDS: 0.9% Normal Saline 1,000 ML 125 ML IV ×3 (01:22→16:01)
[2020-04-22] MEDS: 0.9% Saline Lock 10 ML Syringe IV ×3 (05:38→13:36)
[2020-04-22] MEDS: Gabapentin 600 MG Tablet PO ×2 (05:38→16:01)
[2020-04-22] MEDS: metroNIDAZOLE 500 MG Tablet PO ×2 (05:38→13:47)
[2020-04-22] MEDS: oxyCODONE 5 MG Tablet 10 MG PO (05:41)
--- NOTE | 2020-04-22 07:10 | PCM.PN.HOSP ---
Patient Problems: Active and Suspected Problems Severe sepsis (Acute) Hyponatremia (Acute) Thrombocytosis (Acute) Lactic acidosis (Acute) Transaminitis (Acute) Malnutrition (Suspected) Subjective: Patient with no acute events overnight but still having intermittent fevers and mild tachycardia, improved from the day previously however. This morning he is complaining of pain to his coccyx region and discussed frankly ongoing issues with patient refusing intermittent turning. Currently he is amenable to having offloading. He also does admit that he has not had output from his ostomy but has been refusing any bowel regimen in addition from nursing staff as as needed agents are available. Discussed this at length and he is now willing to have some as needed agents and additional MiraLAX regimen. Discussed current plan of care which included to continue to await specimen cultures from the OR with antibiotic changes per ID discretion especially given ongoing elevated temperatures, chest x-ray unremarkable, urine unremarkable. Patient denies chills, nausea, emesis, abdominal pain, chest pain or dyspnea. Objective: Physical Examination: General: awake, alert, oriented x 3 and cooperative, seated upright in the medical surgical bed, getting ready the breakfast, irritable, notes his coccyx and lower back is uncomfortable. Skin: normal color, turgor, no icterus, cyanosis except significant wounds (wound RN pictures from recent dressing changes reviewed including left ischial and sacral regions with mild yellow slough, no drainage, periwound mild erythema although suspect likely chronic, right ischium similar appearance with yellow slough, no drainage, right heel with region of darkened eschar, dry, yellow slough, no drainage, left heel with minimal eschar, no slough and no drainage, right first through second distal toe tips with evidence of dry necrotic appearance, no drainage). HEENT: AT/NC, EOMI, PERRLA, MMM. Lungs: Diminished breath sounds, greater bases, moderate effort, no rales, ronchi or wheezing. Heart: Improved, regular rate and regular rhythm; no gallop, rub audible. Abdomen: soft, obese, NTTP, ND, normal BS. Extremities: no cyanosis or clubbing, see skin for significant wound descriptions. Neurological: patient awake, alert, oriented x 3; cognitive function baseline intact although patient has poor insight into his medical care and significant nature of his disease process, pupils equally reactive to light and accomodation; cranial nerves II-XII grossly normal, moving all 4 extremities, no focal deficits, strength moderately to severely globally decreased, refused positional changes again, still some mild tremors to upper extremities noted, less than day prior. Psychiatric: affect appears irritable this a.m., no acute evidence of depressive or anxiety feelings. Vitals/I&O's: Vital Signs Temp Pulse Resp BP Pulse Ox 97.5 F L 96 16 97/53 L 95 04/22/20 05:45 04/22/20 05:45 04/22/20 05:45 04/22/20 05:45 04/22/20 05:45 Oxygen Flow Rate (L/min) 1 Oxygen Delivery Method Room Air Weight: 200 lb 2.876 oz Body Mass Index (BMI) 31.4 Intake and Output for Last 24 Hours 04/20/20 04/21/20 04/22/20 23:59 23:59 23:59 Intake Total 3331.17 / 3331.17 4871.15 / 4871.15 1847.92 / 1847.92 Output Total 2625 / 2625 6525 / 6525 1200 / 1200 Balance 706.17 / 706.17 -1653.85 / -1653.85 647.92 / 647.92 Microbiology Past 72 Hours 04/17/20 14:57 Tissue - Ischial Pressure Sore Gram Stain - Final 04/17/20 14:57 Tissue - Ischial Pressure Sore Wound Culture - Final Pseudomonas aeroginosa Acinetobacter baumannii Meth. resistant Staph. aureus 04/17/20 14:57 Tissue - Ischial Pressure Sore Anaerobic Culture - Preliminary Checking for anaerobes, further studies to follow. 04/17/20 14:57 Bone - Ischium Gram Stain - Final 04/17/20 14:57 Bone - Ischium Wound Culture - Final Pseudomonas aeroginosa Acinetobacter baumannii Meth. resistant Staph. aureus 04/17/20 14:57 Bone - Ischium Anaerobic Culture - Preliminary Checking for anaerobes, further studies to follow. 04/17/20 14:57 Bone - Ischial Bone Gram Stain - Final 04/17/20 14:57 Bone - Ischial Bone Wound Culture - Final Pseudomonas aeroginosa Acinetobacter baumannii Proteus mirabilis Escherichia coli Meth. resistant Staph. aureus 04/17/20 14:57 Bone - Ischial Bone Anaerobic Culture - Preliminary Checking for anaerobes, further studies to follow. 04/17/20 14:57 Tissue - Sacral Gram Stain - Final 04/17/20 14:57 Tissue - Sacral Wound Culture - Final Acinetobacter baumannii 04/17/20 14:57 Tissue - Sacral Anaerobic Culture - Preliminary Checking for anaerobes, further studies to follow. 04/17/20 14:57 Tissue - Ischial Pressure Sore Gram Stain - Final 04/17/20 14:57 Tissue - Ischial Pressure Sore Wound Culture - Preliminary Pseudomonas aeroginosa Acinetobacter baumannii Meth. resistant Staph. aureus 04/17/20 14:57 Tissue - Ischial Pressure Sore Anaerobic Culture - Preliminary Checking for anaerobes, further studies to follow. 04/17/20 14:57 Bone - Sacral Bone Gram Stain - Final 04/17/20 14:57 Bone - Sacral Bone Wound Culture - Preliminary Pseudomonas aeroginosa Gram negative jesus Meth. resistant Staph. aureus 04/17/20 14:57 Bone - Sacral Bone Anaerobic Culture - Preliminary Checking for anaerobes, further studies to follow. 04/20/20 11:00 Urine, Catheterized Urine Culture - Preliminary Culture exhibits no growth. 04/16/20 09:35 Blood Culture (Wb) - Anticubital Left Blood Culture - Final No growth in 5 days. 04/15/20 10:45 Blood Culture (Wb) - Left Hand Blood Culture - Final No growth in 5 days. 04/15/20 10:45 Blood Culture (Wb) - Left Forearm Blood Culture - Final Meth. resistant Staph. aureus 04/18/20 05:30 Blood Culture (Wb) - Left Wrist Blood Culture - Preliminary No growth in 48 hours. 04/17/20 06:24 Blood Culture (Wb) - Left Hand Blood Culture - Preliminary No growth in 48 hours. 04/15/20 11:08 Urine Catheter - Walker Urine Culture - Final Escherichia coli Proteus mirabilis Laboratory Results 04/21/20 20:58: Vancomycin Trough 24.9 H Current Medications Acetaminophen (Acetaminophen 325 Mg Tablet) 650 mg PO Q6H PRN PRN PRN Reason: Pain Score 1-10/Temp > 100.7 F Last Admin: 04/22/20 01:20 Dose: 650 mg Documented by: Al Hydroxide/Mg Hydroxide (Mag Hydrox/Al Hydrox/Simeth 30 Ml Udc) 30 ml PO Q6H PRN PRN PRN Reason: Gastric Burning Albuterol Sulfate (Albuterol 2.5 Mg/3 Ml Vial.Neb.) 2.5 mg INHALATION Q2H PRN PRN PRN Reason: SOB/Wheezing Amlodipine Besylate (Amlodipine 5 Mg Tablet) 5 mg PO DAILY [facility] Last Admin: 04/21/20 10:26 Dose: 5 mg Documented by: Aspirin (Aspirin E.C. 81 Mg Tablet) 81 mg PO DAILY@0800 [facility] Last Admin: 04/21/20 10:15 Dose: 81 mg Documented by: Bupropion HCl (Bupropion (Xl) 300 Mg Tablet.Xl) 300 mg PO QHS [facility] Last Admin: 04/21/20 22:50 Dose: 300 mg Documented by: Diphenhydramine HCl (Diphenhydramine 25 Mg Capsule) 25 mg PO Q6H PRN PRN PRN Reason: ITCHING Docusate Sodium (Docusate Sodium 100 Mg Capsule) 200 mg PO BID [facility] Last Admin: 04/21/20 22:50 Dose: 200 mg Documented by: Ezetimibe (Ezetimibe 10 Mg Tablet) 10 mg PO QHS [facility] Last Admin: 04/21/20 22:50 Dose: 10 mg Documented by: Enoxaparin Sodium (Enoxaparin 40 Mg/0.4 Ml Syringe) 40 mg SC DAILY [facility] Last Admin: 04/21/20 10:24 Dose: 40 mg Documented by: Escitalopram Oxalate (Escitalopram Oxalate 10 Mg Tablet) 10 mg PO DAILY [facility] Last Admin: 04/21/20 10:24 Dose: 10 mg Documented by: Ferrous Gluconate (Ferrous Gluconate 324 Mg Tablet) 324 mg PO BIDCM [facility] Last Admin: 04/21/20 16:41 Dose: 324 mg Documented by: Fluticasone Propionate (Fluticasone 0.05% 1 [place] Nasal.Sry) 1 spray NASAL QHS [facility] Last Admin: 04/21/20 22:47 Dose: 1 spray Documented by: Gabapentin (Gabapentin 600 Mg Tablet) 600 mg PO TID [facility] Last Admin: 04/22/20 05:38 Dose: 600 mg Documented by: Guaifenesin (Guaifenesin 10 Ml Udc (200mg/10ml)) 5 ml PO Q6H PRN PRN PRN Reason: COUGH Hydralazine HCl (Hydralazine 20 Mg/Ml Vial) 10 mg IV Q4H PRN PRN PRN Reason: SBP > 160 Hydromorphone HCl (Hydromorphone 0.5 Mg/0.5 Ml Syringe) 0.5 mg IV Q4H PRN PRN PRN Reason: BREAKTHROUGH Pain Score 6-10 Last Admin: 04/21/20 22:45 Dose: 0.5 mg Documented by: Vancomycin IV Pharmacy to Dose (1 ea/ Sodium Chloride) 500 mls @ 250 mls/hr IV PRN PRN; Protocol PRN Reason: Rx to Dose Sodium Chloride () 250 mls @ 15 mls/hr IV .[id number] PRN PRN Reason: Saline Flush Last Infusion: 04/21/20 23:57 Dose: 15 mls/hr Documented by: Sodium Chloride () 250 mls @ 15 mls/hr IV .[id number] PRN PRN Reason: Additional IVPB Infusion Last Infusion: 04/17/20 16:35 Dose: Infused Documented by: Colistimethate Sodium 150 mg/ (Sodium Chloride) 50 mls @ 100 mls/hr IV Q8 [facility] Last Admin: 04/22/20 05:38 Dose: 100 mls/hr Documented by: Tigecycline 50 mg/ Sodium (Chloride) 105 mls @ 105 mls/hr IV Q12 [facility] Last Infusion: 04/21/20 23:57 Dose: Infused Documented by: Sodium Chloride () 1,000 mls @ 125 mls/hr IV .Q8H [facility] Last Admin: 04/22/20 01:22 Dose: 125 mls/hr Documented by: Ipratropium Coleman (Ipratropium 0.5 Mg/2.5 Ml Solution) 0.5 mg INHALATION Q6HWA.RT [facility] Last Admin: 04/21/20 13:34 Dose: 0.5 mg Documented by: Melatonin (Melatonin 3 Mg Tablet) 3 mg PO QHS PRN PRN PRN Reason: INSOMNIA Metronidazole (Metronidazole 500 Mg Tablet) 500 mg PO TID [facility] Last Admin: 04/22/20 05:38 Dose: 500 mg Documented by: Multivitamins (Multivitamins,Therapeutic Tablet) 1 tablet PO DAILYCM [facility] Last Admin: 04/21/20 10:15 Dose: 1 tablet Documented by: Nutritional Formula (Nutritional Supplement (Chuy) Packet) 1 packet PO DAILY [facility] Last Admin: 04/21/20 11:54 Dose: Not Given Documented by: Nutritional Formula (Lactose Free) (Ensure Enlive 120 Ml Liquid) 120 ml PO 4X/DAY [facility] Last Admin: 04/21/20 22:56 Dose: 120 ml Documented by: Ondansetron HCl (Ondansetron 4 Mg/2 Ml Vial) 4 mg IV Q8H PRN PRN PRN Reason: NAUSEA/VOMITING Oxybutynin Chloride (Oxybutynin 5 Mg Tablet) 5 mg PO BID [facility] Last Admin: 04/21/20 22:50 Dose: 5 mg Documented by: Oxycodone HCl (Oxycodone Cr 20 Mg Tablet) 20 mg PO Q12 [facility] Last Admin: 04/21/20 21:44 Dose: 20 mg Documented by: Oxycodone HCl (Oxycodone 5 Mg Tablet) 10 mg PO Q6H PRN PRN PRN Reason: Pain Score 6-10 Last Admin: 04/22/20 05:41 Dose: 10 mg Documented by: Pantoprazole Sodium (Pantoprazole Sodium 40 Mg Tablet) 40 mg PO DAILY [facility] Last Admin: 04/21/20 10:26 Dose: 40 mg Documented by: Polyethylene Glycol (Polyethylene Glycol 3350 17 Gm Packet) 17 gm PO DAILY [facility] Last Admin: 04/21/20 10:25 Dose: 17 gm Documented by: Senna/Docusate Sodium (Senna/Docusate Sodium 1 Tablet) 2 tablet PO BID PRN PRN Reason: Constipation Sodium Chloride (0.9% Saline Lock 10 Ml Syringe) 10 - 40 ml IV UD PRN PRN Reason: SALINE FLUSH Last Admin: 04/22/20 05:38 Dose: 10 ml Documented by: Sodium Hypochlorite (Dakin's Venessa Half Strength (=0.25%)) 1 applic TOPICAL DAILY [facility]; Protocol Last Admin: 04/21/20 10:44 Dose: 1 applicatio Documented by: Tizanidine HCl (Tizanidine Hcl 2 Mg Tablet) 4 mg PO Q8H PRN PRN PRN Reason: SPASMS Last Admin: 04/21/20 16:41 Dose: 4 mg Documented by: STROKE Vital Signs/Narrative: Vital Signs Temp Pulse Resp BP Pulse Ox 04/22/20 05:45 97.5 F L 96 16 97/53 L 95 Medical Necessity - Tobacco Use Smoking Status: Former smoker Assessment/Plan All Active Problems Severe sepsis (Acute) Hyponatremia (Acute) Thrombocytosis (Acute) Lactic acidosis (Acute) Transaminitis (Acute) Abscess of right groin (Resolved) Hyponatremia (Resolved) MRSA bacteremia (Resolved) The patient is a 65 y/o M w/ PMHx: Chronic sacral, ischial wounds, Chronic BL Heel wounds following w/ Podiatry, Chronic anemia, HTN, HLD, Anxiety and Depression, Hx Rectal CA, PAD. Chronic hepatitis C who presents to the [facility] ED on 04/15/20 with history of increasing fatigue, malaise with abnormal labs with concern for possible infection of his wounds. 1. Acute severe sepsis secondary to MRSA bacteremia likely secondary to infected sacral ulcer with XDR Acinetobacter, MRSA, ecoli, pseudomonas, and GNR wound growth from also bilateral heel wounds and chronic toe wounds: Patient admitted, initiated on broad-spectrum antibiotic therapy, OR 04/17/2020 with excision of sacral pressure sore stage IV with partial ostectomy for osteomyelitis, excision left ischial pressure sore stage IV with partial ostectomy for osteomyelitis, excision right ischial radiation pressure sore stage IV with partial ostectomy for osteomyelitis per Dr. Mesa, 04/20/2020 patient changed from vancomycin and Zosyn to vancomycin and colistin/tigecycline/Flagyl regimen given elevated temperatures and wound cultures with XDR Acinetobacter, MRSA, ecoli, pseudomonas, and GNR, repeat blood culture 04/19/2020 pending, urinalysis mild appearance with pending repeat urine culture although during presentation has had urine culture with less than 100,000 colony-forming units, chest x-ray with no acute findings on 04/20/2020, lactic acid 1.5, administered 1 L normal saline bolus and initiated on maintenance IV fluids given worsened presentation and placed on telemetry status. 04/21/2020 patient clinically improved, discontinuation of telemetry status. Bld Cx with no growth noted still on 04/18/2020 and no growth on 04/19/2020 blood cultures. PICC Placed 04/21/20 per agreement with ID. 04/20/2020 urine culture without growth. Given ongoing fevers, no obvious source urine or CXR, 04/22/20 CBC w/ WBC 17.3 with increasing L shift. Patient does have a L hip replacement history and per discussion with Dr. Mesa if this could be a possible source. The right side with irradiation injury the hip joint could also potentially be involved. ECHO of note 04/16/20 with EF 55-60%, aortic sclerosis, no stenosis, no mention of valve vegetation concerns. Will discuss with Dr. Escamilla re: hip involvement potential per discussion with Dr. Mesa. 2. Chronic bilateral lower extremity heel wounds and right first and second distal toe wounds, dry gangrene complicated by PAD: Possibly contributing to #1, podiatry consulted and following, continued wound RN evaluation and routine dressing changes, per discussion with podiatry similar to prior and not worsened appearance, continued on very broad-spectrum antibiotic therapy recently altered as noted 04/20/2020 per infectious disease who is following. LISBETH/PVR right lower extremity obtained and full read pending, plan arterial duplex per podiatry/vascular surgeon Dr. Samuels. Possible intervention Monday if blood cultures remain negative and cleared per infectious disease; however, given ongoing Fever, worsening WBC elevation with L shift suspect will need to be deferred to outpatient. 3. Acute on chronic hyponatremia, likely component hypokalemia: Admission sodium 119, TSH, magnesium assessment normal, judiciously hydrated, 04/20/2020 sodium 124, urine osmolality 376, urine sodium 103, urine creatinine 16.70, FeNa 5.19%, 04/22/2020 Na 125. If ongoing will plan consultation with Dr. Rae, Nephrology. 4. Chronic anemia, iron deficiency anemia: We will continue patient home iron supplementation, admission hemoglobin 8.4, similar even following surgery, 04/20/2020 hemoglobin 8.3, continue to trend. 04/22/20 CBC with WBC 17.3, hemoglobin 7.4, platelet 546 with left shift worsening. 5. Moderate malnutrition: Evidenced per habitus, obvious muscle and fat loss, poor wound healing, nutrition consulted, continue supplementations. 6. Hypertension: Patient with ongiong low-normal BPs during presentation, holding patient amlodipine, metoprolol, add back once appropriate. Lack of patient BB may also be contributing to his HR. 7. Hyperlipidemia: We will continue patient home Zetia regimen. 8. Anxiety and depression: We will continue patient home bupropion, escitalopram regimen. 9. History of anal cancer: Status post colostomy, chemo and radiation, remission status considered. Constipation onset, increasing bowel regimen. 10. GERD: We will continue patient home PPI. 11. DVT prophylaxis: SCDs, Lovenox. 12. CODE STATUS: Full code. Inpatient E&M: 18974 Subs Hosp L3
[2020-04-22] MEDS: Ipratropium 0.5 MG/2.5 ML SOLUTION INHALATION ×2 (07:29→13:21)
--- NOTE | 2020-04-22 07:45 | NURSING ---
spoke w/ aida in lab re:am labs not obtained yet
[2020-04-22] MEDS: Multivitamins,Therapeutic Tablet 1 TABLET PO (08:16)
[2020-04-22] MEDS: Ferrous Gluconate 324 MG Tablet PO (08:16)
[2020-04-22] MEDS: Aspirin E.C. 81 MG Tablet PO (08:16)
[2020-04-22 08:17] LABS: Absolute Lymphocyte Count 1.62 X10^3/uL (0.83-4.51); Absolute Neutrophil Count 13.2 X10^3/uL (2.0-7.7); Basophil# 0.04 X10^3/uL; Basophil% 0.2 % (0-1); Eosinophil# 0.35 X10^3/uL; Hematocrit 24.4 % (40-54); Hemoglobin 7.4 g/dL (13.0-16.5); Lymphocyte # 1.62 X10^3/ul (4.0); Lymphocyte % 9.4 % (19-41); Mean Corp Hgb Conc 30.3 g/dL (32-36); Mean Corpuscular Volume 79.2 fL (80-94); Mean Platelet Vol. 7.6 fl (6.2-12.0); Monocyte# 1.69 X10^3/uL; Monocyte% 9.8 % (0-10); NRBC Flagged by Analyzer 0 % (0-5); Neutrophil # 13.23 X10^3/uL (2.7-7.7); Neutrophil % 76.4 % (47-70); POSITIVE DIFFERENTIAL YES; Platelet Count 546 K/mm3 (150-450); RBC Distribution Width SD 48.9 fl (35.1-43.9); Red Blood Count 3.08 M/mm3 (4.6-6.2); White Blood Count 17.3 K/mm3 (4.4-11.0)
[2020-04-22 08:19] LABS: Differential Indicated SCAN CRITERIA MET
[2020-04-22 08:35] LABS: ALB/GLOB Ratio 0.3 RATIO (0.9-2.4); AST(SGOT) 22 U/L (15-37); Alanine Aminotransfer ALT/SGPT 39 U/L (16-61); Albumin, Serum 1.6 g/dL (3.2-5.0); Alkaline Phosphatase 166 U/L (45-117); Anion Gap 6 (5-15); BUN 24 mg/dL (7-18); BUN/Creat Ratio 36.7 RATIO (10-20); Calcium,Total 8.5 mg/dL (8.5-10.1); Chloride 93 mmol/L (98-107); Creatinine, Serum 0.65 mg/dL (0.70-1.30); EST Glomerular Filtration Rate 130 mL/min (>60); Est Glom Filt Rate - Afr Amer 157 mL/min (>60); Estimated Creatinine Clearance 67.94 ml/min; Globulin 4.8 g/dL (2.2-4.2); Glucose 92 mg/dL (74-106); Potassium 3.8 mmol/L (3.5-5.1); Protein, Total 6.4 g/dL (6.4-8.2); Sodium Level 125 mmol/L (136-145)
[2020-04-22 08:54] LABS: Vancomycin, Random Level 15.2 ug/mL (0.0-15.0)
--- NOTE | 2020-04-22 09:39 | MRI_ITS ---
STUDY: MR PELVIS WITH T WITHOUT CONTRAST REASON FOR EXAM: Bilateral hip infections, chronic wounds. TECHNIQUE: Standardized fat and water weighted pulse sequences were obtained in all 3 orthogonal planes, pre-and post contrast administration. IV dotarem 15ml was administered for the contrast portion of the examination. COMPARISON: CT images of the pelvis 04/15/2020. FINDINGS: There is a soft tissue ulcer extending to the sacrum with osseous destruction of the coccyx (T2 sagittal images 25-27) and bone edema of the lower sacrum (inversion recovery coronal image 2) with contrast enhancement (postcontrast T1 coronal image 4) consistent with osteomyelitis. There is a left hip arthroplasty with a large periprosthetic fluid collection extending into the lateral subcutis adipose space (inversion recovery coronal images 9-17) with contrast enhancement of the wall (postcontrast T1 axial images 11-28) consistent with soft tissue abscess. The fluid collection measures approximately 5.3 x 12.0 x 12.0 cm (AP x transverse x length). There is septic arthritis of the right hip with osseous destruction of the right femoral head and neck and acetabulum with superior migration of the femur (T1 coronal images 13-19), bone edema of the proximal femur and acetabulum (inversion recovery coronal images 13, 14) and joint effusion with contrast enhancement (postcontrast T1 coronal images 13-16). There is scarring in the subcutis adipose space anterior to the right hip joint (T1 axial images 14-18). Status post partial resection of the right ischium. There are ulcers adjacent to the ischium bilaterally with osteomyelitis of the bilateral ischii (inversion recovery coronal images 8-11). There is edema in the musculature of the buttocks and proximal thighs bilaterally (inversion recovery coronal images 10-19). MRI/Pelvis W/WO Contrast IMPRESSION: Soft tissue ulcer overlying the sacrum and coccyx with destruction of the coccyx and osteomyelitis of the lower sacrum. Left hip arthroplasty with adjacent soft tissue abscess. Septic arthritis/osteomyelitis of the right hip. Ulcers adjacent to the ischium bilaterally with osteomyelitis of the bilateral ischii. Electronically Signed: Uday Abraham MD at 13:24 EST Tel , Service support ,
[2020-04-22] MEDS: Magnesium Hydroxide 30 ML UDC PO (09:56)
[2020-04-22] MEDS: Pantoprazole Sodium 40 MG Tablet PO (09:58)
[2020-04-22] MEDS: Oxybutynin 5 MG Tablet PO (09:58)
[2020-04-22] MEDS: Escitalopram Oxalate 10 MG Tablet PO (09:58)
[2020-04-22] MEDS: amLODIPine 5 MG Tablet PO (09:59)
[2020-04-22] MEDS: Enoxaparin 40 MG/0.4 ML Syringe SC (09:59)
[2020-04-22] MEDS: Docusate Sodium 100 MG Capsule 200 MG PO (09:59)
[2020-04-22] MEDS: Polyethylene Glycol 3350 17 GM PACKET PO ×2 (10:00→10:28)
[2020-04-22] MEDS: DAKIN'S SOL HALF STRENGTH (=0.25%) 1 APPLIC TOPICAL (10:10)
[2020-04-22] MEDS: HYDROmorphone 0.5 MG/0.5 ML SYRINGE IV ×3 (10:54→12:05)
--- NOTE | 2020-04-22 11:21 | PHA.PHARE_ITS ---
Consult Pharmacy has been consulted to manage selected antiobiotic: Vancomycin Type of Consult: Follow-up Suspected Infection: Sepsis Prior Doses of Antibiotics Received/Current Regimen: 1250mg iv q12h. Labs: Sodium 125 mmol/L (136-145) L 04/22/20 08:04 Potassium 3.8 mmol/L (3.5-5.1) 04/22/20 08:04 Chloride 93 mmol/L (98-107) L 04/22/20 08:04 Carbon Dioxide 26.0 mmol/L (21.0-32.0) 04/22/20 08:04 Anion Gap 6 (5-15) 04/22/20 08:04 BUN 24 mg/dL (7-18) H 04/22/20 08:04 Creatinine 0.65 mg/dL (0.70-1.30) L 04/22/20 08:04 Est GFR (MDRD) Af Amer 157 mL/min (>60) 04/22/20 08:04 Est GFR (MDRD) Non-Af 130 mL/min (>60) 04/22/20 08:04 BUN/Creatinine Ratio 36.7 RATIO (10-20) H 04/22/20 08:04 Glucose 92 mg/dL (74-106) 04/22/20 08:04 Vancomycin Trough 24.9 ug/mL (5.0-15.0) H 04/21/20 20:58 Random Vancomycin 15.2 ug/mL (0.0-15.0) H 04/22/20 08:26 Microbiology: Microbiology 04/20/20 11:00 Urine, Catheterized Urine Culture - Final Culture exhibits no growth. 04/17/20 14:57 Bone - Sacral Bone Gram Stain - Final 04/17/20 14:57 Bone - Sacral Bone Wound Culture - Final Pseudomonas aeroginosa Acinetobacter baumannii#2 Meth. resistant Staph. aureus 04/17/20 14:57 Bone - Sacral Bone Anaerobic Culture - Final No anaerobic bacteria isolated. 04/17/20 14:57 Tissue - Sacral Gram Stain - Final 04/17/20 14:57 Tissue - Sacral Wound Culture - Final Acinetobacter baumannii 04/17/20 14:57 Tissue - Sacral Anaerobic Culture - Final No anaerobic bacteria isolated. 04/17/20 14:57 Bone - Ischium Gram Stain - Final 04/17/20 14:57 Bone - Ischium Wound Culture - Final Pseudomonas aeroginosa Acinetobacter baumannii Meth. resistant Staph. aureus 04/17/20 14:57 Bone - Ischium Anaerobic Culture - Final No anaerobic bacteria isolated. 04/17/20 14:57 Bone - Ischial Bone Gram Stain - Final 04/17/20 14:57 Bone - Ischial Bone Wound Culture - Final Pseudomonas aeroginosa Acinetobacter baumannii Proteus mirabilis Escherichia coli Meth. resistant Staph. aureus 04/17/20 14:57 Bone - Ischial Bone Anaerobic Culture - Final No anaerobic bacteria isolated. 04/17/20 14:57 Tissue - Ischial Pressure Sore Gram Stain - Final 04/17/20 14:57 Tissue - Ischial Pressure Sore Wound Culture - Final Pseudomonas aeroginosa Acinetobacter baumannii Meth. resistant Staph. aureus 04/17/20 14:57 Tissue - Ischial Pressure Sore Anaerobic Culture - Final No anaerobic bacteria isolated. 04/17/20 14:57 Tissue - Ischial Pressure Sore Gram Stain - Final 04/17/20 14:57 Tissue - Ischial Pressure Sore Wound Culture - Preliminary Pseudomonas aeroginosa Acinetobacter baumannii Meth. resistant Staph. aureus 04/17/20 14:57 Tissue - Ischial Pressure Sore Anaerobic Culture - Final No anaerobic bacteria isolated. 04/19/20 19:00 Blood Culture (Wb) - Arm Right Blood Culture - Preliminary No growth in 48 hours. 04/19/20 18:55 Blood Culture (Wb) - Anticubital Right Blood Culture - Preliminary No growth in 48 hours. 04/17/20 06:24 Blood Culture (Wb) - Left Hand Blood Culture - Final No growth in 5 days. 04/16/20 09:35 Blood Culture (Wb) - Anticubital Left Blood Culture - Final No growth in 5 days. 04/15/20 10:45 Blood Culture (Wb) - Left Hand Blood Culture - Final No growth in 5 days. 04/15/20 10:45 Blood Culture (Wb) - Left Forearm Blood Culture - Final Meth. resistant Staph. aureus 04/18/20 05:30 Blood Culture (Wb) - Left Wrist Blood Culture - Preliminary No growth in 48 hours. 04/15/20 11:08 Urine Catheter - Walker Urine Culture - Final Escherichia coli Proteus mirabilis 04/17/20 01:50 Mucosa - Nose SARS-CoV-2 Antigen (Rapid) - Final Weight used for dosin.8 kg Estimated Creatinine Clearance: ~120 ml/mi Goal Trough: 15-20 mcg/mL Pharmacy Plan for Drug Dosing: Random level today 15.2 ( 17.5 hr post last dose) with Cr from 0.44 to 0.65. Rajan l decrease dose to 1gm iv q12h. A repeat trough level ordered for before 4th dose of new regimen on 04.24.20. Pharmacy Service will continue to monitor and adjust dosing as required. Follow-Up Labs: Trough Vancomycin - 04.24.20 @0130 before 0200 dose
--- NOTE | 2020-04-22 11:22 | NURSING ---
crop and soil technician made aware that pt on specialty bed
--- NOTE | 2020-04-22 13:06 | NURSING ---
@ 1300, pt returned to [id number] from MRI
[2020-04-22] MEDS: Vancomycin IV 1,000 MG/200 ML BAG 200 MG IV (13:34)
[2020-04-22] MEDS: Ondansetron 4 MG/2 ML Vial IV (13:35)
--- NOTE | 2020-04-22 13:54 | NURSING ---
spoke w/ tech in Rx to please send missing 1400 dose of colymycin
--- NOTE | 2020-04-22 15:41 | PCM.DC.SUM ---
Discharge Date and Diagnosis - Problem List Patient Problems: Active and Suspected Problems Severe sepsis (Acute) Hyponatremia (Acute) Thrombocytosis (Acute) Lactic acidosis (Acute) Transaminitis (Acute) Malnutrition (Suspected) Date of Admission: 04/15/20 Date of Discharge: 04/22/20 - Primary Discharge Diagnosis Acute Problems: Active Problems 1. Acute severe sepsis, Multifactorial, secondary to MRSA bacteremia, Infected sacral ulcer with XDR Acinetobacter, MRSA, ecoli, pseudomonas and GNR wound growth from also bilateral heel wounds and chronic toe wounds and 5.3 x 12.0 x 12.0 cm Abscess near Left Hip Arthroplasty, Unclear Organisms 2. Chronic bilateral lower extremity heel wounds and right first and second distal toe wounds, dry gangrene complicated by PAD 3. Acute on chronic hyponatremia 4. Chronic anemia, iron deficiency anemia 5. Moderate malnutrition 6. Hypertension 7. Hyperlipidemia 8. Anxiety and depression 9. History of anal cancer 10. GERD Suspected Problems: Suspected Problems Malnutrition (Suspected) - Secondary Discharge Diagnosis Chronic Problems: Chronic Problems UTI (urinary tract infection) (Chronic) Anemia of chronic disease (Chronic) Microcytic anemia (Chronic) Ulcer of right groin with fat layer exposed (Chronic) Ulcer of right foot with necrosis of bone (Chronic) Sacral pressure ulcer (Chronic) Pressure ulcer, heel, right, unstageable (Chronic) Decubitus ulcer of left heel, stage 4 (Chronic) Pressure ulcer of toe of right foot (Chronic) Toe necrosis (Chronic) Gangrene of toe of right foot (Chronic) Osteomyelitis of toe of right foot (Chronic) Peripheral vascular disease (Chronic) Unstageable pressure ulcer of right heel (Chronic) Unstageable pressure ulcer of left heel (Chronic) Non-healing open wound of right groin (Chronic) Skin necrosis (Chronic) Pressure sore of left ischium, stage 4 (Chronic) Candidal skin infection (Chronic) 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) Infection and inflammatory reaction due to internal left knee prosthesis, initial encounter (Chronic) History of total left knee replacement (Chronic) Skin ulcer of left thigh with fat layer exposed (Chronic) Pressure ulcer of right buttock, stage 3 (Chronic) Skin ulcer of elbow with fat layer exposed (Chronic) Decubitus ulcer of left heel, stage 2 (Chronic) Debility (Chronic) Personal history of Methicillin resistant Staphylococcus aureus infection (Chronic) Acute osteomyelitis of right pelvic region (Chronic) History of anal cancer (Chronic) 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 Escamilla Infectious disease Dr. Mesa Plastic surgery Dr. Palomares/[facility] Pod[facility] Operations: - - 04/17/[address] Mesa with 1. Excision sacral pressure sore, Stage IV, with partial ostectomy for osteomyelitis. 2. Excision left ischial pressure sore, Stage IV, with partial ostectomy for osteomyelitis. 3. Excision right ischial radiation pressure sore, Stage IV, with partial ostectomy for Procedures: 2-D Echocardiogram, EKG Summary of Care Provided: The patient is a 65 y/o M w/ PMHx: Chronic sacral, ischial wounds s/p prior diverting colostomy, Chronic BL Heel wounds following w/ Podiatry, Chronic anemia, HTN, HLD, Anxiety and Depression, Hx Rectal CA, PAD. Chronic hepatitis C who presented to the [facility] ED on 04/15/20 with history of increasing fatigue, malaise with abnormal labs with concern for possible infection of his wounds. Patient admitted, initiated on broad-spectrum antibiotic therapy, OR 04/17/2020 with excision of sacral pressure sore stage IV with partial ostectomy for osteomyelitis, excision left ischial pressure sore stage IV with partial ostectomy for osteomyelitis, excision right ischial radiation pressure sore stage IV with partial ostectomy for osteomyelitis per Dr. Mesa, 04/20/2020 patient changed from vancomycin and Zosyn to vancomycin and colistin/tigecycline/Flagyl regimen given elevated temperatures and wound cultures with XDR Acinetobacter, MRSA, ecoli, pseudomonas, and GNR. Patient during admission did have 04/15/2020 blood culture with MRSA however repeat follow-up blood cultures have since been negative. Patient also with notable chronic bilateral lower extremity heel wounds and right first and second distal toe wounds, dry gangrene complicated by PAD therefore during admission podiatry consulted and followed with continued wound RN evaluation and routine dressing changes. Of note per discussion with podiatry similar to prior and not worsened appearance, continued on very broad-spectrum antibiotic therapy recently altered as noted 04/20/2020 per infectious disease who is following. LISBETH/PVR right lower extremity obtained with noted bilateral monophasic flow in LISBETH 0.84 and 0.46. Patient with intermittent onset of fevers and mild tachycardia starting 04/19/20 evening therefore repeat blood cultures obtained at that time which demonstrated no growth, urinalysis obtained and urine culture performed with no growth, chest x-ray 04/20/2020 with no acute findings, lactic acid 1.5 with ministration at that time of 1 L normal saline bolus and placement on telemetry status with appearance over 24 hours of clinical improvement. ECHO of note 04/16/20 with EF 55-60%, aortic sclerosis, no stenosis, no mention of valve vegetation concerns. Patient did however have recurrent fevers and noted discomfort to his lower back and pelvis region and given no obvious source with 04/22/20 CBC w/ WBC 17.3 with increasing L shift with known L hip replacement history concern for possible tracking with recent wounds discussed case with Dr. Mesa and Dr. Escamilla and given concern for possible tracking to hip obtained MRI pelvis which demonstrated 5.3 x 12.0 x 12.0 cm soft tissue abscess adjacent to his left hip arthroplasty, soft tissue ulcer overlying the sacrum and coccyx with destruction of the coccyx and osteomyelitis of the lower sacrum, septic arthritis/osteomyelitis of the right hip, ulcers addition to the skin bilaterally at the osteomyelitis of bilateral ischial. Additionally during admission patient had acute on chronic hyponatremia with admission sodium 119, TSH, magnesium assessment normal, judiciously hydrated, 04/20/2020 sodium 124, urine osmolality 376, urine sodium 103, urine creatinine 16.70, FeNa 5.19%, 04/22/2020 Na 125. Also with chronic anemia, iron deficiency anemia continued on his iron supplementation with admission hemoglobin 8.4, similar even following surgery, 04/22/20 CBC with WBC 17.3, hemoglobin 7.4, platelet 546 with left shift worsening. Patient normally on metoprolol and amlodipine however during the entirety of his presentation his blood pressures remained 90s to 120s over 50s and his medications were held. Given patient evident abscess near his left hip arthroplasty discussed case and results with plastic surgery, infectious disease as well as available orthopedic resources however patient clinical picture significantly complicated therefore recommendation made for transfer to tertiary care facility. Requested discs and all information be copied for tertiary facility. Day of Discharge Physical Examination: General: awake, alert, oriented x 3 and cooperative, seated upright in the medical surgical bed, getting ready the breakfast, irritable, notes his coccyx and lower back is uncomfortable. Skin: normal color, turgor, no icterus, cyanosis except significant wounds (wound RN pictures from recent dressing changes reviewed including left ischial and sacral regions with mild yellow slough, no drainage, periwound mild erythema although suspect likely chronic, right ischium similar appearance with yellow slough, no drainage, right heel with region of darkened eschar, dry, yellow slough, no drainage, left heel with minimal eschar, no slough and no drainage, right first through second distal toe tips with evidence of dry necrotic appearance, no drainage). HEENT: AT/NC, EOMI, PERRLA, MMM. Lungs: Diminished breath sounds, greater bases, moderate effort, no rales, ronchi or wheezing. Heart: Improved, regular rate and regular rhythm; no gallop, rub audible. Abdomen: soft, obese, NTTP, ND, normal BS. Extremities: no cyanosis or clubbing, see skin for significant wound descriptions. Neurological: patient awake, alert, oriented x 3; cognitive function baseline intact although patient has poor insight into his medical care and significant nature of his disease process, pupils equally reactive to light and accomodation; cranial nerves II-XII grossly normal, moving all 4 extremities, no focal deficits, strength moderately to severely globally decreased, refused positional changes again, still some mild tremors to upper extremities noted, less than day prior. Psychiatric: affect appears irritable this a.m., no acute evidence of depressive or anxiety feelings. Patient Problems: Active and Suspected Problems Severe sepsis (Acute) Hyponatremia (Acute) Thrombocytosis (Acute) Lactic acidosis (Acute) Transaminitis (Acute) Malnutrition (Suspected) - Physical Exam Vitals/I&O's: Vital Signs Temp Pulse Resp BP Pulse Ox 98.9 F 92 18 94/58 L 95 04/22/20 10:34 04/22/20 13:15 04/22/20 13:15 04/22/20 10:34 04/22/20 11:25 Oxygen Flow Rate (L/min) 1 Oxygen Delivery Method Room Air Weight: 200 lb 2.876 oz Body Mass Index (BMI) 31.4 Intake and Output for Last 24 Hours 04/20/20 04/21/20 04/22/20 23:59 23:59 23:59 Intake Total 3331.17 / 3331.17 4871.15 / 4871.15 3397.92 / 3397.92 Output Total 2625 / 2625 6525 / 6525 2900 / 2900 Balance 706.17 / 706.17 -1653.85 / -1653.85 497.92 / 497.92 Microbiology Past 72 Hours 04/17/20 14:57 Tissue - Ischial Pressure Sore Gram Stain - Final 04/17/20 14:57 Tissue - Ischial Pressure Sore Wound Culture - Preliminary Pseudomonas aeroginosa Acinetobacter baumannii Meth. resistant Staph. aureus 04/17/20 14:57 Tissue - Ischial Pressure Sore Anaerobic Culture - Final No anaerobic bacteria isolated. 04/20/20 11:00 Urine, Catheterized Urine Culture - Final Culture exhibits no growth. 04/17/20 14:57 Bone - Sacral Bone Gram Stain - Final 04/17/20 14:57 Bone - Sacral Bone Wound Culture - Final Pseudomonas aeroginosa Acinetobacter baumannii#2 Meth. resistant Staph. aureus 04/17/20 14:57 Bone - Sacral Bone Anaerobic Culture - Final No anaerobic bacteria isolated. 04/17/20 14:57 Tissue - Sacral Gram Stain - Final 04/17/20 14:57 Tissue - Sacral Wound Culture - Final Acinetobacter baumannii 04/17/20 14:57 Tissue - Sacral Anaerobic Culture - Final No anaerobic bacteria isolated. 04/17/20 14:57 Bone - Ischium Gram Stain - Final 04/17/20 14:57 Bone - Ischium Wound Culture - Final Pseudomonas aeroginosa Acinetobacter baumannii Meth. resistant Staph. aureus 04/17/20 14:57 Bone - Ischium Anaerobic Culture - Final No anaerobic bacteria isolated. 04/17/20 14:57 Bone - Ischial Bone Gram Stain - Final 04/17/20 14:57 Bone - Ischial Bone Wound Culture - Final Pseudomonas aeroginosa Acinetobacter baumannii Proteus mirabilis Escherichia coli Meth. resistant Staph. aureus 04/17/20 14:57 Bone - Ischial Bone Anaerobic Culture - Final No anaerobic bacteria isolated. 04/17/20 14:57 Tissue - Ischial Pressure Sore Gram Stain - Final 04/17/20 14:57 Tissue - Ischial Pressure Sore Wound Culture - Final Pseudomonas aeroginosa Acinetobacter baumannii Meth. resistant Staph. aureus 04/17/20 14:57 Tissue - Ischial Pressure Sore Anaerobic Culture - Final No anaerobic bacteria isolated. 04/19/20 19:00 Blood Culture (Wb) - Arm Right Blood Culture - Preliminary No growth in 48 hours. 04/19/20 18:55 Blood Culture (Wb) - Anticubital Right Blood Culture - Preliminary No growth in 48 hours. 04/17/20 06:24 Blood Culture (Wb) - Left Hand Blood Culture - Final No growth in 5 days. 04/16/20 09:35 Blood Culture (Wb) - Anticubital Left Blood Culture - Final No growth in 5 days. 04/15/20 10:45 Blood Culture (Wb) - Left Hand Blood Culture - Final No growth in 5 days. 04/15/20 10:45 Blood Culture (Wb) - Left Forearm Blood Culture - Final Meth. resistant Staph. aureus 04/18/20 05:30 Blood Culture (Wb) - Left Wrist Blood Culture - Preliminary No growth in 48 hours. Laboratory Results 04/21/20 20:58: Vancomycin Trough 24.9 H 04/22/20 08:04: WBC 17.3 H, RBC 3.08 L, Hgb 7.4 L, Hct 24.4 L, MCV 79.2 L, MCH 24.0 L, MCHC 30.3 L, RDW Std Deviation 48.9 H, RDW Coeff of Rosendo 17.0 H, Plt Count 546 H, MPV 7.6, Immature Gran % (Auto) 2.200 H, Neut % (Auto) 76.4 H, Lymph % (Auto) 9.4 L, Cache % (Auto) 9.8, Eos % (Auto) 2.0, Baso % (Auto) 0.2, Absolute Neuts (auto) 13.2 H, Absolute Lymphs (auto) 1.62, Nucleated RBC % 0, Differential Comment COMMENT, Diff Path Review May foll 04/22/20 08:04: Sodium 125 L, Potassium 3.8, Chloride 93 L, Carbon Dioxide 26.0, Anion Gap 6, BUN 24 H, Creatinine 0.65 L, Estim Creat Clear Calc 67.94, Est GFR (MDRD) Af Amer 157, Est GFR (MDRD) Non-Af 130, BUN/Creatinine Ratio 36.7 H, Glucose 92, Calcium 8.5, Total Bilirubin 0.20, AST 22, ALT 39, Alkaline Phosphatase 166 H, Total Protein 6.4, Albumin 1.6 L, Globulin 4.8 H, Albumin/Globulin Ratio 0.3 L 04/22/20 08:26: Random Vancomycin 15.2 H Current Medications Acetaminophen (Acetaminophen 325 Mg Tablet) 650 mg PO Q6H PRN PRN PRN Reason: Pain Score 1-10/Temp > 100.7 F Last Admin: 04/22/20 08:17 Dose: 650 mg Documented by: Al Hydroxide/Mg Hydroxide (Mag Hydrox/Al Hydrox/Simeth 30 Ml Udc) 30 ml PO Q6H PRN PRN PRN Reason: Gastric Burning Albuterol Sulfate (Albuterol 2.5 Mg/3 Ml Vial.Neb.) 2.5 mg INHALATION Q2H PRN PRN PRN Reason: SOB/Wheezing Amlodipine Besylate (Amlodipine 5 Mg Tablet) 5 mg PO DAILY [facility] Last Admin: 04/22/20 09:59 Dose: 5 mg Documented by: Aspirin (Aspirin E.C. 81 Mg Tablet) 81 mg PO DAILY@0800 [facility] Last Admin: 04/22/20 08:16 Dose: 81 mg Documented by: Bupropion HCl (Bupropion (Xl) 300 Mg Tablet.Xl) 300 mg PO QHS [facility] Last Admin: 04/21/20 22:50 Dose: 300 mg Documented by: Diphenhydramine HCl (Diphenhydramine 25 Mg Capsule) 25 mg PO Q6H PRN PRN PRN Reason: ITCHING Docusate Sodium (Docusate Sodium 100 Mg Capsule) 200 mg PO BID [facility] Last Admin: 04/22/20 09:59 Dose: 200 mg Documented by: Ezetimibe (Ezetimibe 10 Mg Tablet) 10 mg PO QHS [facility] Last Admin: 04/21/20 22:50 Dose: 10 mg Documented by: Enoxaparin Sodium (Enoxaparin 40 Mg/0.4 Ml Syringe) 40 mg SC DAILY [facility] Last Admin: 04/22/20 09:59 Dose: 40 mg Documented by: Escitalopram Oxalate (Escitalopram Oxalate 10 Mg Tablet) 10 mg PO DAILY [facility] Last Admin: 04/22/20 09:58 Dose: 10 mg Documented by: Ferrous Gluconate (Ferrous Gluconate 324 Mg Tablet) 324 mg PO BIDCM [facility] Last Admin: 04/22/20 08:16 Dose: 324 mg Documented by: Fluticasone Propionate (Fluticasone 0.05% 1 [place] Nasal.Sry) 1 spray NASAL QHS [facility] Last Admin: 04/21/20 22:47 Dose: 1 spray Documented by: Gabapentin (Gabapentin 600 Mg Tablet) 600 mg PO TID [facility] Last Admin: 04/22/20 05:38 Dose: 600 mg Documented by: Guaifenesin (Guaifenesin 10 Ml Udc (200mg/10ml)) 5 ml PO Q6H PRN PRN PRN Reason: COUGH Hydralazine HCl (Hydralazine 20 Mg/Ml Vial) 10 mg IV Q4H PRN PRN PRN Reason: SBP > 160 Hydromorphone HCl (Hydromorphone 0.5 Mg/0.5 Ml Syringe) 0.5 mg IV Q4H PRN PRN PRN Reason: BREAKTHROUGH Pain Score 6-10 Last Admin: 04/22/20 10:54 Dose: 0.5 mg Documented by: Vancomycin IV Pharmacy to Dose (1 ea/ Sodium Chloride) 500 mls @ 250 mls/hr IV PRN PRN; Protocol PRN Reason: Rx to Dose Sodium Chloride () 250 mls @ 15 mls/hr IV .[id number] PRN PRN Reason: Saline Flush Last Infusion: 04/21/20 23:57 Dose: 15 mls/hr Documented by: Sodium Chloride () 250 mls @ 15 mls/hr IV .[id number] PRN PRN Reason: Additional IVPB Infusion Last Infusion: 04/17/20 16:35 Dose: Infused Documented by: Colistimethate Sodium 150 mg/ (Sodium Chloride) 50 mls @ 100 mls/hr IV Q8 [facility] Last Admin: 04/22/20 14:05 Dose: 100 mls/hr Documented by: Tigecycline 50 mg/ Sodium (Chloride) 105 mls @ 105 mls/hr IV Q12 [facility] Last Admin: 04/22/20 10:29 Dose: 105 mls/hr Documented by: Sodium Chloride () 1,000 mls @ 125 mls/hr IV .Q8H [facility] Last Admin: 04/22/20 10:30 Dose: 125 mls/hr Documented by: Vancomycin HCl (Vancomycin) 1,000 mg in 200 mls @ 200 mls/hr IV Q12H [facility] Last Admin: 04/22/20 13:34 Dose: 200 mls/hr Documented by: Ipratropium [place] (Ipratropium 0.5 Mg/2.5 Ml Solution) 0.5 mg INHALATION Q6HWA.RT [facility] Last Admin: 04/22/20 13:21 Dose: 0.5 mg Documented by: Magnesium Hydroxide (Magnesium Hydroxide 30 Ml Udc) 30 ml PO DAILY PRN PRN Reason: Constipation Melatonin (Melatonin 3 Mg Tablet) 3 mg PO QHS PRN PRN PRN Reason: INSOMNIA Metronidazole (Metronidazole 500 Mg Tablet) 500 mg PO TID [facility] Last Admin: 04/22/20 13:47 Dose: 500 mg Documented by: Multivitamins (Multivitamins,Therapeutic Tablet) 1 tablet PO DAILYCM [facility] Last Admin: 04/22/20 08:16 Dose: 1 tablet Documented by: Nutritional Formula (Lactose Free) (Ensure Enlive 120 Ml Liquid) 120 ml PO 4X/DAY [facility] Last Admin: 04/22/20 13:38 Dose: Not Given Documented by: Ondansetron HCl (Ondansetron 4 Mg/2 Ml Vial) 4 mg IV Q8H PRN PRN PRN Reason: NAUSEA/VOMITING Last Admin: 04/22/20 13:35 Dose: 4 mg Documented by: Oxybutynin Chloride (Oxybutynin 5 Mg Tablet) 5 mg PO BID [facility] Last Admin: 04/22/20 09:58 Dose: 5 mg Documented by: Oxycodone HCl (Oxycodone Cr 20 Mg Tablet) 20 mg PO Q12 [facility] Last Admin: 04/22/20 09:57 Dose: 20 mg Documented by: Oxycodone HCl (Oxycodone 5 Mg Tablet) 10 mg PO Q6H PRN PRN PRN Reason: Pain Score 6-10 Last Admin: 04/22/20 05:41 Dose: 10 mg Documented by: Pantoprazole Sodium (Pantoprazole Sodium 40 Mg Tablet) 40 mg PO DAILY [facility] Last Admin: 04/22/20 09:58 Dose: 40 mg Documented by: Polyethylene Glycol (Polyethylene Glycol 3350 17 Gm Packet) 17 gm PO DAILY [facility] Last Admin: 04/22/20 10:28 Dose: 17 gm Documented by: Senna/Docusate Sodium (Senna/Docusate Sodium 1 Tablet) 2 tablet PO BID PRN PRN Reason: Constipation Sodium Chloride (0.9% Saline Lock 10 Ml Syringe) 10 - 40 ml IV UD PRN PRN Reason: SALINE FLUSH Last Admin: 04/22/20 13:36 Dose: 20 ml Documented by: Sodium Hypochlorite (Dakin's Venessa Half Strength (=0.25%)) 1 applic TOPICAL BID [facility]; Protocol Last Admin: 04/22/20 10:10 Dose: 1 applicatio Documented by: Tizanidine HCl (Tizanidine Hcl 2 Mg Tablet) 4 mg PO Q8H PRN PRN PRN Reason: SPASMS Last Admin: 04/21/20 16:41 Dose: 4 mg Documented by: Additional Activity Instructions:: hang heels over stacked blankets or pillows while in bed to avoid direct pressure to heel ulcers Call your doctor if your incision/area has: Continuous Slow Oozing, Foul Smelling Discharge Call your doctor if you observe: Fever of 101 or Higher, Calf discomfort, Uncontrolled pain Cleanse incision/area with: - - Change dressings to feet every other day with dry gauze. If moisture is noted, apply betadine. Ensure the dorsal foot and anterior ankle locations are well padded to avoid dressing injuries. Home Medications: Medications to take at Discharge Fluticasone 0.05% [Flonase Nasal [place]] 1 spray NASAL DAILY 03/22/16 Multivitamin [Multiple Vitamins] 1 tab PO DAILY 03/22/16 buPROPion XL [Wellbutrin Xl] 300 mg PO QHS 03/22/16 Metoprolol Tartrate [Lopressor (beta curt)] 25 mg PO BID 01/19/18 Ferrous Gluconate 324 mg PO BID 08/22/18 Gabapentin [Neurontin] 600 mg PO TID 08/12/19 Oxycodone HCl [Oxycodone HCl ER] 10 mg PO Q6H PRN PRN 12/03/19 Cholecalciferol (Vitamin D3) [Vitamin D3] 25 mcg PO DAILY 12/16/19 Escitalopram Oxalate 10 mg PO DAILY 12/16/19 Ezetimibe [Zetia] 10 mg PO QHS 12/16/19 Acetaminophen 1,000 mg PO TID 04/15/20 Amlodipine [Norvasc] 5 mg PO DAILY 04/15/20 Argin/Glut/Cahmb/Collag/Mv-Min [[place] Packet] 1 ea PO DAILY 04/15/20 Aspirin [Aspirin, Baby] 81 mg PO DAILY@0800 04/15/20 Docusate Sodium [Colace] 200 mg PO BID 04/15/20 Omeprazole 40 mg PO DAILY 04/15/20 Oxybutynin Chloride 5 mg PO BID 04/15/20 Oxycodone CR [Oxycontin] 20 mg PO Q12H 04/15/20 Polyethylene Glycol 3350 [Miralax] 17 gm PO DAILY 04/15/20 Tiotropium [place] [Spiriva Respimat] 2 puff IH DAILY 04/15/20 Tizanidine HCl [Zanaflex] 4 mg PO Q8H PRN 04/15/20 Primary Care Physician: Winnie Gonzales MD [STAFF PHYSICIAN] - Please Follow Up With: Clinic,Wound When: 2-4 weeks Please Follow Up With: Eddie Samuels MD When: [phone] Disposition: Acute care Hospital Minutes spent on discharge:: 60 Patient Condition:: Stable Medical Necessity - Tobacco Use Smoking Status: Former smoker Meaningful Use Info Meaningful Use Diagnoses (Choose all that apply): None applicable Inpatient E&M: 51905 Disch Hosp
--- NOTE | 2020-04-22 15:51 | CASEMGMT ---
Social Work Note Pt is being transferred out to [facility]. SHAHANA received call from Pam Jones requesting update. SHAHANA updated Pam that pt is being transferred out to [facility] today. SHAHANA also placed a call to Tala at [facility] and updated her pt will be transferred out to [facility]. Caroline Og JUNIOR JAVA DEVELOPER, SENIOR DATA MODELER
--- NOTE | 2020-04-22 15:57 | PCM.PN.ID ---
Patient Problems: Active and Suspected Problems Severe sepsis (Acute) Hyponatremia (Acute) Thrombocytosis (Acute) Lactic acidosis (Acute) Transaminitis (Acute) Malnutrition (Suspected) Subjective: Fever again, overall feeling ok, no n/v. - Physical Exam Vitals/I&O's: Vital Signs Temp Pulse Resp BP Pulse Ox 98.9 F 92 18 94/58 L 95 04/22/20 10:34 04/22/20 13:15 04/22/20 13:15 04/22/20 10:34 04/22/20 11:25 Oxygen Flow Rate (L/min) 1 Oxygen Delivery Method Room Air Weight: 90.8 kg Body Mass Index (BMI) 31.4 Intake and Output for Last 24 Hours 04/20/20 04/21/20 04/22/20 23:59 23:59 23:59 Intake Total 3331.17 / 3331.17 4871.15 / 4871.15 3397.92 / 3397.92 Output Total 2625 / 2625 6525 / 6525 2900 / 2900 Balance 706.17 / 706.17 -1653.85 / -1653.85 497.92 / 497.92 General: Alert, Cooperative, No apparent distress Lungs: Clear to auscultation, Normal air movement Cardiovascular: Regular rate, Regular Rhythm Abdomen: Soft, Non Tender, Non-Distended Skin: No rashes - no new rash Microbiology Past 72 Hours 04/17/20 14:57 Tissue - Ischial Pressure Sore Gram Stain - Final 04/17/20 14:57 Tissue - Ischial Pressure Sore Wound Culture - Preliminary Pseudomonas aeroginosa Acinetobacter baumannii Meth. resistant Staph. aureus 04/17/20 14:57 Tissue - Ischial Pressure Sore Anaerobic Culture - Final No anaerobic bacteria isolated. 04/20/20 11:00 Urine, Catheterized Urine Culture - Final Culture exhibits no growth. 04/17/20 14:57 Bone - Sacral Bone Gram Stain - Final 04/17/20 14:57 Bone - Sacral Bone Wound Culture - Final Pseudomonas aeroginosa Acinetobacter baumannii#2 Meth. resistant Staph. aureus 04/17/20 14:57 Bone - Sacral Bone Anaerobic Culture - Final No anaerobic bacteria isolated. 04/17/20 14:57 Tissue - Sacral Gram Stain - Final 04/17/20 14:57 Tissue - Sacral Wound Culture - Final Acinetobacter baumannii 04/17/20 14:57 Tissue - Sacral Anaerobic Culture - Final No anaerobic bacteria isolated. 04/17/20 14:57 Bone - Ischium Gram Stain - Final 04/17/20 14:57 Bone - Ischium Wound Culture - Final Pseudomonas aeroginosa Acinetobacter baumannii Meth. resistant Staph. aureus 04/17/20 14:57 Bone - Ischium Anaerobic Culture - Final No anaerobic bacteria isolated. 04/17/20 14:57 Bone - Ischial Bone Gram Stain - Final 04/17/20 14:57 Bone - Ischial Bone Wound Culture - Final Pseudomonas aeroginosa Acinetobacter baumannii Proteus mirabilis Escherichia coli Meth. resistant Staph. aureus 04/17/20 14:57 Bone - Ischial Bone Anaerobic Culture - Final No anaerobic bacteria isolated. 04/17/20 14:57 Tissue - Ischial Pressure Sore Gram Stain - Final 04/17/20 14:57 Tissue - Ischial Pressure Sore Wound Culture - Final Pseudomonas aeroginosa Acinetobacter baumannii Meth. resistant Staph. aureus 04/17/20 14:57 Tissue - Ischial Pressure Sore Anaerobic Culture - Final No anaerobic bacteria isolated. 04/19/20 19:00 Blood Culture (Wb) - Arm Right Blood Culture - Preliminary No growth in 48 hours. 04/19/20 18:55 Blood Culture (Wb) - Anticubital Right Blood Culture - Preliminary No growth in 48 hours. 04/17/20 06:24 Blood Culture (Wb) - Left Hand Blood Culture - Final No growth in 5 days. 04/16/20 09:35 Blood Culture (Wb) - Anticubital Left Blood Culture - Final No growth in 5 days. 04/15/20 10:45 Blood Culture (Wb) - Left Hand Blood Culture - Final No growth in 5 days. 04/15/20 10:45 Blood Culture (Wb) - Left Forearm Blood Culture - Final Meth. resistant Staph. aureus 04/18/20 05:30 Blood Culture (Wb) - Left Wrist Blood Culture - Preliminary No growth in 48 hours. Laboratory Results 04/21/20 20:58: Vancomycin Trough 24.9 H 04/22/20 08:04: WBC 17.3 H, RBC 3.08 L, Hgb 7.4 L, Hct 24.4 L, MCV 79.2 L, MCH 24.0 L, MCHC 30.3 L, RDW Std Deviation 48.9 H, RDW Coeff of [place] 17.0 H, Plt Count 546 H, MPV 7.6, Immature Gran % (Auto) 2.200 H, Neut % (Auto) 76.4 H, Lymph % (Auto) 9.4 L, [place] % (Auto) 9.8, Eos % (Auto) 2.0, Baso % (Auto) 0.2, Absolute Neuts (auto) 13.2 H, Absolute Lymphs (auto) 1.62, Nucleated RBC % 0, Differential Comment COMMENT, Diff Path Review July foll 04/22/20 08:04: Sodium 125 L, Potassium 3.8, Chloride 93 L, Carbon Dioxide 26.0, Anion Gap 6, BUN 24 H, Creatinine 0.65 L, Estim Creat Clear Calc 67.94, Est GFR (MDRD) Af Amer 157, Est GFR (MDRD) Non-Af 130, BUN/Creatinine Ratio 36.7 H, Glucose 92, Calcium 8.5, Total Bilirubin 0.20, AST 22, ALT 39, Alkaline Phosphatase 166 H, Total Protein 6.4, Albumin 1.6 L, Globulin 4.8 H, Albumin/Globulin Ratio 0.3 L 04/22/20 08:26: Random Vancomycin 15.2 H Current Medications Acetaminophen (Acetaminophen 325 Mg Tablet) 650 mg PO Q6H PRN PRN PRN Reason: Pain Score 1-10/Temp > 100.7 F Last Admin: 04/22/20 08:17 Dose: 650 mg Documented by: Al Hydroxide/Mg Hydroxide (Mag Hydrox/Al Hydrox/Simeth 30 Ml Udc) 30 ml PO Q6H PRN PRN PRN Reason: Gastric Burning Albuterol Sulfate (Albuterol 2.5 Mg/3 Ml Vial.Neb.) 2.5 mg INHALATION Q2H PRN PRN PRN Reason: SOB/Wheezing Amlodipine Besylate (Amlodipine 5 Mg Tablet) 5 mg PO DAILY [facility] Last Admin: 04/22/20 09:59 Dose: 5 mg Documented by: Aspirin (Aspirin E.C. 81 Mg Tablet) 81 mg PO DAILY@0800 [facility] Last Admin: 04/22/20 08:16 Dose: 81 mg Documented by: Bupropion HCl (Bupropion (Xl) 300 Mg Tablet.Xl) 300 mg PO QHS [facility] Last Admin: 04/21/20 22:50 Dose: 300 mg Documented by: Diphenhydramine HCl (Diphenhydramine 25 Mg Capsule) 25 mg PO Q6H PRN PRN PRN Reason: ITCHING Docusate Sodium (Docusate Sodium 100 Mg Capsule) 200 mg PO BID [facility] Last Admin: 04/22/20 09:59 Dose: 200 mg Documented by: Ezetimibe (Ezetimibe 10 Mg Tablet) 10 mg PO QHS [facility] Last Admin: 04/21/20 22:50 Dose: 10 mg Documented by: Enoxaparin Sodium (Enoxaparin 40 Mg/0.4 Ml Syringe) 40 mg SC DAILY [facility] Last Admin: 04/22/20 09:59 Dose: 40 mg Documented by: Escitalopram Oxalate (Escitalopram Oxalate 10 Mg Tablet) 10 mg PO DAILY [facility] Last Admin: 04/22/20 09:58 Dose: 10 mg Documented by: Ferrous Gluconate (Ferrous Gluconate 324 Mg Tablet) [facility] Last Admin: 04/22/20 08:16 Dose: 324 mg Documented by: Fluticasone Propionate (Fluticasone 0.05% 1 [place] Nasal.Sry) 1 spray NASAL QHS [facility] Last Admin: 04/21/20 22:47 Dose: 1 spray Documented by: Gabapentin (Gabapentin 600 Mg Tablet) 600 mg PO TID [facility] Last Admin: 04/22/20 05:38 Dose: 600 mg Documented by: Guaifenesin (Guaifenesin 10 Ml Udc (200mg/10ml)) 5 ml PO Q6H PRN PRN PRN Reason: COUGH Hydralazine HCl (Hydralazine 20 Mg/Ml Vial) 10 mg IV Q4H PRN PRN PRN Reason: SBP > 160 Hydromorphone HCl (Hydromorphone 1 Mg/Ml Syringe) 1 mg IV Q3H PRN PRN PRN Reason: Pain Score 4-10 Vancomycin IV Pharmacy to Dose (1 ea/ Sodium Chloride) 500 mls @ 250 mls/hr IV PRN PRN; Protocol PRN Reason: Rx to Dose Sodium Chloride () 250 mls @ 15 mls/hr IV .[id number] PRN PRN Reason: Saline Flush Last Infusion: 04/21/20 23:57 Dose: 15 mls/hr Documented by: Sodium Chloride () 250 mls @ 15 mls/hr IV .[id number] PRN PRN Reason: Additional IVPB Infusion Last Infusion: 04/17/20 16:35 Dose: Infused Documented by: Colistimethate Sodium 150 mg/ (Sodium Chloride) 50 mls @ 100 mls/hr IV Q8 [facility] Last Admin: 04/22/20 14:05 Dose: 100 mls/hr Documented by: Tigecycline 50 mg/ Sodium (Chloride) 105 mls @ 105 mls/hr IV Q12 [facility] Last Admin: 04/22/20 10:29 Dose: 105 mls/hr Documented by: Sodium Chloride () 1,000 mls @ 125 mls/hr IV .Q8H [facility] Last Admin: 04/22/20 10:30 Dose: 125 mls/hr Documented by: Vancomycin HCl (Vancomycin) 1,000 mg in 200 mls @ 200 mls/hr IV Q12H [facility] Last Admin: 04/22/20 13:34 Dose: 200 mls/hr Documented by: Ipratropium [place] (Ipratropium 0.5 Mg/2.5 Ml Solution) 0.5 mg INHALATION Q6HWA.RT [facility] Last Admin: 04/22/20 13:21 Dose: 0.5 mg Documented by: Magnesium Hydroxide (Magnesium Hydroxide 30 Ml Udc) 30 ml PO DAILY PRN PRN Reason: Constipation Melatonin (Melatonin 3 Mg Tablet) 3 mg PO QHS PRN PRN PRN Reason: INSOMNIA Metronidazole (Metronidazole 500 Mg Tablet) 500 mg PO TID [facility] Last Admin: 04/22/20 13:47 Dose: 500 mg Documented by: Multivitamins (Multivitamins,Therapeutic Tablet) 1 tablet PO DAILYCM [facility] Last Admin: 04/22/20 08:16 Dose: 1 tablet Documented by: Nutritional Formula (Lactose Free) (Ensure Enlive 120 Ml Liquid) 120 ml PO 4X/DAY [facility] Last Admin: 04/22/20 13:38 Dose: Not Given Documented by: Ondansetron HCl (Ondansetron 4 Mg/2 Ml Vial) 4 mg IV Q8H PRN PRN PRN Reason: NAUSEA/VOMITING Last Admin: 04/22/20 13:35 Dose: 4 mg Documented by: Oxybutynin Chloride (Oxybutynin 5 Mg Tablet) 5 mg PO BID [facility] Last Admin: 04/22/20 09:58 Dose: 5 mg Documented by: Oxycodone HCl (Oxycodone Cr 20 Mg Tablet) 20 mg PO Q12 [facility] Last Admin: 04/22/20 09:57 Dose: 20 mg Documented by: Oxycodone HCl (Oxycodone 5 Mg Tablet) 10 mg PO Q6H PRN PRN PRN Reason: Pain Score 6-10 Last Admin: 04/22/20 05:41 Dose: 10 mg Documented by: Pantoprazole Sodium (Pantoprazole Sodium 40 Mg Tablet) 40 mg PO DAILY [facility] Last Admin: 04/22/20 09:58 Dose: 40 mg Documented by: Polyethylene Glycol (Polyethylene Glycol 3350 17 Gm Packet) 17 gm PO DAILY [facility] Last Admin: 04/22/20 10:28 Dose: 17 gm Documented by: Senna/Docusate Sodium (Senna/Docusate Sodium 1 Tablet) 2 tablet PO BID PRN PRN Reason: Constipation Sodium Chloride (0.9% Saline Lock 10 Ml Syringe) 10 - 40 ml IV UD PRN PRN Reason: SALINE FLUSH Last Admin: 04/22/20 13:36 Dose: 20 ml Documented by: Sodium Hypochlorite ([place] Half Strength (=0.25%)) 1 applic TOPICAL BID [facility]; Protocol Last Admin: 04/22/20 10:10 Dose: 1 applicatio Documented by: Tizanidine HCl (Tizanidine Hcl 2 Mg Tablet) 4 mg PO Q8H PRN PRN PRN Reason: SPASMS Last Admin: 04/21/20 16:41 Dose: 4 mg Documented by: Medical Necessity - Tobacco Use Smoking Status: Former smoker Route of nutrition/ use of supplements: [] Nutritional Intake: [] IV Site: [] Walker Catheter: [] - Assessment/Plan Antibiotics: [] Assessment/Plan: [] Active and Suspected Problems Severe sepsis (Acute) Hyponatremia (Acute) Thrombocytosis (Acute) Lactic acidosis (Acute) Transaminitis (Acute) Malnutrition (Suspected) severe sepsis with MRSA bacteremia likely due to infected sacral ulcer - seen by podiatry and plastics. Taken to OR 2/ by Dr. [place]. Bcx have cleared. TTE with no veg. Surg cxs with XDR Acinetobacter, MRSA, ecoli, pseudomonas, and proteus. Requested additional susc testing from the micro lab of this [facility]. In contact iso. Cont vanc, colistin/tigecycline/flagyl. Again with fever, recommended MRI of pelvis, now showing large abscess and osteo. Transfer being arranged for surgical eval. Will follow, d/w Dr. Mcguire
[2020-04-22] MEDS: HYDROmorphone 1 MG/ML Syringe IV (16:01)
[2020-04-23 13:59] LABS: Pathologist Review Reviewed
== END 2020-04-22 17:45 | disposition short-term general hospital (02) | DRG 853 ==
LOC: ED 11:17 → MS3 04-16 07:43
PROVIDERS: Anesthesiology; Internal Medicine; Internal Medicine Infectious Disease; Surgery; Admitting Provider Internal Medicine; Emergency Provider Emergency Medicine; PCP Internal Medicine; Visit Provider Family Medicine
PROC: 0QB30ZZ Excision of Left Pelvic Bone, Open Approach (ICD-10-PCS; CPT 15999; principal; 2020-04-17 12:45)
DX: A41.02 Sepsis due to Methicillin resistant Staphylococcus aureus (principal); L89.314 Pressure ulcer of right buttock, stage 4; L89.324 Pressure ulcer of left buttock, stage 4; L89.154 Pressure ulcer of sacral region, stage 4; E87.1 Hypo-osmolality and hyponatremia; E44.0 Moderate protein-calorie malnutrition; I96 Gangrene, not elsewhere classified; M86.671 Other chronic osteomyelitis, right ankle and foot; M86.68 Other chronic osteomyelitis, other site; E87.2 Acidosis; M86.651 Other chronic osteomyelitis, right thigh; L02.214 Cutaneous abscess of groin; M86.19 Other acute osteomyelitis, multiple sites; L97.514 Non-pressure chronic ulcer of other part of right foot with necrosis of bone; L08.89 Other specified local infections of the skin and subcutaneous tissue; B96.20 Unspecified Escherichia coli [E. coli] as the cause of diseases classified elsewhere; B95.62 Methicillin resistant Staphylococcus aureus infection as the cause of diseases classified elsewhere; B96.5 Pseudomonas (aeruginosa) (mallei) (pseudomallei) as the cause of diseases classified elsewhere; L89.610 Pressure ulcer of right heel, unstageable; L89.622 Pressure ulcer of left heel, stage 2; L59.8 Other specified disorders of the skin and subcutaneous tissue related to radiation; R65.20 Severe sepsis without septic shock; D50.9 Iron deficiency anemia, unspecified; E78.5 Hyperlipidemia, unspecified; F32.9 Major depressive disorder, single episode, unspecified; F41.9 Anxiety disorder, unspecified; K21.9 Gastro-esophageal reflux disease without esophagitis; I10 Essential (primary) hypertension; D63.8 Anemia in other chronic diseases classified elsewhere; R33.9 Retention of urine, unspecified; R53.81 Other malaise; B18.2 Chronic viral hepatitis C; J44.9 Chronic obstructive pulmonary disease, unspecified; B37.2 Candidiasis of skin and nail; E87.5 Hyperkalemia; E86.1 Hypovolemia; E87.6 Hypokalemia; G89.29 Other chronic pain; Y84.2 Radiological procedure and radiotherapy as the cause of abnormal reaction of the patient, or of later complication, without mention of misadventure at the time of the procedure; Z87.891 Personal history of nicotine dependence; Z93.3 Colostomy status; Z87.440 Personal history of urinary (tract) infections; Z96.652 Presence of left artificial knee joint; Z96.642 Presence of left artificial hip joint; Z92.21 Personal history of antineoplastic chemotherapy; Z92.3 Personal history of irradiation; Z85.048 Personal history of other malignant neoplasm of rectum, rectosigmoid junction, and anus; Z86.14 Personal history of Methicillin resistant Staphylococcus aureus infection; Z79.82 Long term (current) use of aspirin; Z79.899 Other long term (current) drug therapy
CPT/HCPCS: 36415; 36569; 71045; 72197; 73630; 74177; 80048; 80053; 80202; 81001; 82570; 83605; 83735; 83935; 84100; 84134; 84300; 84443; 85025; 85610; 85730; 86850; 86900; 86901; 86920; 86922; 87040; 87070; 87075; 87077; 87086; 87088; 87102; 87176; 87186; 87205; 87206; 87426; 87641; 88304; 88305; 88311; 93005; 93306; 93922; 93926; 94640; 94762; 97110; 97162; 97166; 97530; 97535; 97803; 99251; 99285; A9575; J7030; J7050; J7120; P9016; Q9967; A4216; G0463; J2405; J3243; J3490